=== PATIENT | female | born 1940 | race Caucasian/White ===

== ENCOUNTER → 2016-08-03 | Outpatient (CLI) | payer MEDICARE, OTHER ==
[~2016-08-03] MED LIST: ACET65TA OR; ARIC5TAB OR; ASPI81TA83 OR; BUSP10TA2 OR; CALCCHW12 OR; CIPR250T3 OR; COLA100C2 OR; DEPA250T2 OR; HCTZ PO; HYDR25TA6 OR; LAMI25TA OR; LISI10TA4 OR; MULTIVIT PO; PAXI20TA OR; PAXI40TA OR; PROZ20CA OR; SERO200T OR; TOBRADEX OU; VIT D 2000 PO; ZYPR2.5T OR; osteo-biflex; restasis OU
[2016-08-03 12:08] LABS: ALBUMIN 3.7 GM/DL (3.2-5.2); ALBUMIN/GLOBULIN RATIO 1.16 (1.00-1.93); BILIRUBIN,TOTAL 0.3 MG/DL (0.2-1.0); CALCIUM LEVEL 8.9 MG/DL (8.8-10.2); CREATININE FOR GFR 1.25 MG/DL (0.55-1.02); GLOMERULAR FILTRATION RATE 44.6 (>39); POTASSIUM SERUM 4.2 MEQ/L (3.5-5.1); TOTAL PROTEIN 6.9 GM/DL (6.4-8.2)
[2016-08-03 12:11] LABS: LITHIUM LEVEL 0.65 MEQ/L (0.60-1.20)
== END ==
LOC: M LAB 10:55
PROVIDERS: ATTEND Physician Assistant
DX: N18.3 Chronic kidney disease, stage 3 (moderate) (principal); E78.2 Mixed hyperlipidemia; E03.9 Hypothyroidism, unspecified; E55.9 Vitamin D deficiency, unspecified; Z79.899 Other long term (current) drug therapy

== ENCOUNTER → 2016-09-08 | Outpatient (CLI) | payer MEDICARE, OTHER | LOC: M LAB 13:40 | PROVIDERS: ATTEND Nurse Practitioner Psychiatric/Mental Health | DX: Z51.81 Encounter for therapeutic drug level monitoring (principal); Z79.899 Other long term (current) drug therapy ==

== ENCOUNTER → 2016-11-05 | Outpatient (CLI) | payer MEDICARE, OTHER ==
[2016-11-05 09:46] LABS: ALBUMIN 3.7 GM/DL (3.2-5.2); ALBUMIN/GLOBULIN RATIO 1.28 (1.00-1.93); BILIRUBIN,TOTAL 0.5 MG/DL (0.2-1.0); CREATININE FOR GFR 1.1 MG/DL (0.55-1.02); GLOMERULAR FILTRATION RATE 51.5 (>39); POTASSIUM SERUM 4.2 MEQ/L (3.5-5.1); TOTAL PROTEIN 6.6 GM/DL (6.4-8.2)
[2016-11-05 09:58] LABS: LITHIUM LEVEL 0.68 MEQ/L (0.60-1.20)
== END ==
LOC: M LAB 08:43
PROVIDERS: ATTEND Physician Assistant
DX: E78.2 Mixed hyperlipidemia (principal); Z79.899 Other long term (current) drug therapy; E03.9 Hypothyroidism, unspecified

== ENCOUNTER → 2017-02-23 | Outpatient (CLI) | payer MEDICARE, OTHER ==
--- NOTE | 2017-02-23 12:39 | REP ---
Thoracic spine three views: Comparison is the PA and lateral chest dated 02/03/2013. There is diffuse demineralization. There is moderate to advanced degenerative disc disease throughout the thoracic spine. This is unchanged. There is mild grade 1 anterior compression of the T7 vertebral body and the T11 vertebral body, however, this is unchanged from the prior study. There are no lytic, blastic or destructive skeletal changes. The pedicles are unremarkable. There is kyphosis, unchanged. Impression: No change from the comparison study. Chronic demineralization and multilevel degenerative disc disease and chronic grade 1 anterior compression of the T7 and T11 vertebral bodies. No lytic, blastic or destructive skeletal changes. Kyphosis, unchanged. If symptoms persist or worsen, consider MRI or radionuclide bone scan. Signed by Rj Feng MD 02/23/2017 12:30 P
== END ==
LOC: M LRY 12:00
PROVIDERS: ATTEND Physician Assistant
DX: M51.34 Other intervertebral disc degeneration, thoracic region (principal); M40.204 Unspecified kyphosis, thoracic region
CPT/HCPCS: 72072; G0463

== ENCOUNTER → 2017-06-07 | Outpatient (CLI) | payer MEDICARE, OTHER ==
[2017-06-07 10:19] LABS: ESTIMATED AVERAGE GLUCOSE 94 MG/DL (60-110); HEMOGLOBIN A1c 4.9 %
[2017-06-07 10:46] LABS: TOTAL 25(OH) VITAMIN D 32.2 NG/ML (30.0-100.0)
[2017-06-07 11:05] LABS: ALBUMIN 3.5 GM/DL (3.2-5.2); ALBUMIN/GLOBULIN RATIO 1.09 (1.00-1.93); ALKALINE PHOSPHATASE 75 U/L (45-117); ALT/SGPT 32 U/L (12-78); ANION GAP 6 MEQ/L (8-16); AST/SGOT 16 U/L (7-37); BILIRUBIN,TOTAL 0.6 MG/DL (0.2-1.0); BLOOD UREA NITROGEN 18 MG/DL (7-18); CARBON DIOXIDE LEVEL 30 MEQ/L (21-32); CHLORIDE LEVEL 109 MEQ/L (98-107); CHOLESTEROL LEVEL 187 MG/DL (<200); CHOLESTEROL RISK RATIO 2.527 (<5); CREATININE FOR GFR 1.04 MG/DL (0.55-1.02); GLUCOSE, FASTING 102 MG/DL (83-110); HDL CHOLESTEROL 74 MG/DL (>40); LDL CHOLESTEROL 92.2 MG/DL (<100); NON-HDL-C 113 MG/DL; POTASSIUM SERUM 4.4 MEQ/L (3.5-5.1); SODIUM LEVEL 145 MEQ/L (136-145); THYROID STIMULATING HORMONE 0.847 uIU/ML (0.358-3.740); TOTAL PROTEIN 6.7 GM/DL (6.4-8.2); TRIGLYCERIDES LEVEL 104 MG/DL (<150)
[2017-06-07 11:06] LABS: LITHIUM LEVEL 0.76 MEQ/L (0.60-1.20)
== END ==
LOC: M LAB 08:09
DX: N18.3 Chronic kidney disease, stage 3 (moderate) (principal); E78.2 Mixed hyperlipidemia; E55.9 Vitamin D deficiency, unspecified; E53.1 Pyridoxine deficiency; E03.9 Hypothyroidism, unspecified; Z79.899 Other long term (current) drug therapy
CPT/HCPCS: 80178

== ENCOUNTER → 2017-06-09 | Outpatient (REF) | payer MEDICARE, OTHER | LOC: M SFHCLERA 10:14 | DX: R82.90 Unspecified abnormal findings in urine (principal) | CPT/HCPCS: 87086 ==

== ENCOUNTER → 2017-07-26 | Outpatient (CLI) | payer MEDICARE, OTHER ==
[2017-07-26 10:46] LABS: LITHIUM LEVEL 0.83 MEQ/L (0.60-1.20)
== END ==
LOC: M LAB 09:48
DX: Z51.81 Encounter for therapeutic drug level monitoring (principal); Z79.899 Other long term (current) drug therapy
CPT/HCPCS: 80178

== ENCOUNTER → 2017-07-28 | Outpatient (REF) | payer MEDICARE, OTHER ==
[2017-07-28 20:42] LABS: HEMATOCRIT 39.1 % (36.0-47.0); MEAN CORPUSCULAR HEMOGLOBIN 30.5 pg (27.0-33.0); MEAN CORPUSCULAR HGB CONC 30.7 g/dl (32.0-36.5); MEAN CORPUSCULAR VOLUME 99.2 fl (80.0-96.0); PLATELET COUNT, AUTOMATED 316 10^3/uL (150-450); RED BLOOD COUNT 3.94 10^6/uL (4.00-5.40); RED CELL DISTRIBUTION WIDTH 12.6 % (11.5-14.5); WHITE BLOOD COUNT 10.4 10^3/uL (4.0-10.0)
[2017-07-28 21:06] LABS: ALBUMIN 3.9 GM/DL (3.2-5.2); ALBUMIN/GLOBULIN RATIO 1.22 (1.00-1.93); ALKALINE PHOSPHATASE 68 U/L (45-117); ALT/SGPT 32 U/L (12-78); ANION GAP 4 MEQ/L (8-16); AST/SGOT 19 U/L (7-37); BILIRUBIN,TOTAL 0.5 MG/DL (0.2-1.0); BLOOD UREA NITROGEN 16 MG/DL (7-18); CALCIUM LEVEL 9.5 MG/DL (8.8-10.2); CARBON DIOXIDE LEVEL 30 MEQ/L (21-32); CHLORIDE LEVEL 108 MEQ/L (98-107); GLUCOSE, FASTING 82 MG/DL (70-100); SODIUM LEVEL 142 MEQ/L (136-145); THYROID STIMULATING HORMONE 0.722 uIU/ML (0.358-3.740); TOTAL PROTEIN 7.1 GM/DL (6.4-8.2)
[2017-07-28 21:16] LABS: POTASSIUM SERUM 5.2 MEQ/L (3.5-5.1)
== END ==
LOC: M SFHCLERA 17:59
DX: R26.9 Unspecified abnormalities of gait and mobility (principal); H57.02 Anisocoria; R25.1 Tremor, unspecified; G25.9 Extrapyramidal and movement disorder, unspecified
CPT/HCPCS: 84443

== ENCOUNTER → 2017-08-06 | Outpatient (CLI) | payer MEDICARE, OTHER | LOC: M WUC 12:06 | DX: S20.211A Contusion of right front wall of thorax, initial encounter (principal); M19.011 Primary osteoarthritis, right shoulder; M25.511 Pain in right shoulder; Y92.89 Other specified places as the place of occurrence of the external cause; Y93.89 Activity, other specified; Y99.8 Other external cause status; X58.XXXA Exposure to other specified factors, initial encounter | CPT/HCPCS: 71101 ==

== ENCOUNTER 2017-09-14 10:18 | Outpatient (RCR) | payer MEDICARE, OTHER | END 2017-09-20 | LOC: M PT 10:18 | DX: Z51.89 Encounter for other specified aftercare (principal); M40.00 Postural kyphosis, site unspecified; M54.2 Cervicalgia | CPT/HCPCS: 97162 ==

== ENCOUNTER 2017-09-22 15:05 | Outpatient (RCR) | payer MEDICARE, OTHER | END 2017-10-21 | LOC: M PT 15:05 | DX: Z51.89 Encounter for other specified aftercare (principal); M40.00 Postural kyphosis, site unspecified; M54.2 Cervicalgia | CPT/HCPCS: 97110 ==

== ENCOUNTER → 2017-09-28 | Outpatient (CLI) | payer MEDICARE, OTHER | LOC: M WHC 09:48 | DX: Z01.419 Encounter for gynecological examination (general) (routine) without abnormal findings (principal); R92.2 Inconclusive mammogram (principal); R92.0 Mammographic microcalcification found on diagnostic imaging of breast; M85.80 Other specified disorders of bone density and structure, unspecified site; Z78.0 Asymptomatic menopausal state; Z98.82 Breast implant status; Z12.12 Encounter for screening for malignant neoplasm of rectum | CPT/HCPCS: 77067 ==

== ENCOUNTER → 2017-10-12 | Outpatient (CLI) | payer MEDICARE, OTHER | LOC: M RAD 11:14 | DX: R92.8 Other abnormal and inconclusive findings on diagnostic imaging of breast (principal) | CPT/HCPCS: 77065 ==

== ENCOUNTER 2017-10-28 14:57 | Outpatient (RCR) | payer MEDICARE, OTHER | END 2017-11-20 | LOC: M PT 14:57 | DX: Z51.89 Encounter for other specified aftercare (principal); R26.9 Unspecified abnormalities of gait and mobility | CPT/HCPCS: 97110 ==

== ENCOUNTER 2017-11-23 14:59 | Outpatient (RCR) | payer MEDICARE, OTHER | END 2017-12-21 | LOC: M PT 14:59 | DX: Z51.89 Encounter for other specified aftercare (principal); R26.9 Unspecified abnormalities of gait and mobility | CPT/HCPCS: 97110 ==

== ENCOUNTER → 2017-12-16 | Outpatient (CLI) | payer MEDICARE, OTHER ==
[2017-12-16 10:17] LABS: HEMATOCRIT 37.7 % (36.0-47.0); HEMOGLOBIN 11.8 g/dl (12.0-15.5); MEAN CORPUSCULAR HEMOGLOBIN 30.8 pg (27.0-33.0); MEAN CORPUSCULAR HGB CONC 31.3 g/dl (32.0-36.5); MEAN CORPUSCULAR VOLUME 98.4 fl (80.0-96.0); PLATELET COUNT, AUTOMATED 363 10^3/uL (150-450); RED BLOOD COUNT 3.83 10^6/uL (4.00-5.40); RED CELL DISTRIBUTION WIDTH 12.7 % (11.5-14.5); WHITE BLOOD COUNT 9.3 10^3/uL (4.0-10.0)
[2017-12-16 10:50] LABS: ALBUMIN 3.3 GM/DL (3.2-5.2); ALBUMIN/GLOBULIN RATIO 0.94 (1.00-1.93); ALKALINE PHOSPHATASE 80 U/L (45-117); ALT/SGPT 26 U/L (12-78); ANION GAP 3 MEQ/L (8-16); AST/SGOT 13 U/L (7-37); BILIRUBIN,TOTAL 0.3 MG/DL (0.2-1.0); BLOOD UREA NITROGEN 13 MG/DL (7-18); CALCIUM LEVEL 9.3 MG/DL (8.8-10.2); CARBON DIOXIDE LEVEL 32 MEQ/L (21-32); CHLORIDE LEVEL 109 MEQ/L (98-107); CHOLESTEROL LEVEL 186 MG/DL (<200); CHOLESTEROL RISK RATIO 3.152 (<5); CREATININE FOR GFR 1.22 MG/DL (0.55-1.30); GLOMERULAR FILTRATION RATE 45.6 (>39); GLUCOSE, FASTING 103 MG/DL (70-100); HDL CHOLESTEROL 59 MG/DL (>40); LDL CHOLESTEROL 98.4 MG/DL (<100); NON-HDL-C 127 MG/DL; POTASSIUM SERUM 4.5 MEQ/L (3.5-5.1); SODIUM LEVEL 144 MEQ/L (136-145); THYROID STIMULATING HORMONE 0.578 uIU/ML (0.358-3.740); TOTAL PROTEIN 6.8 GM/DL (6.4-8.2); TRIGLYCERIDES LEVEL 143 MG/DL (<150)
[2017-12-16 11:29] LABS: TOTAL 25(OH) VITAMIN D 26.6 NG/ML (30.0-100.0); VITAMIN B12 LEVEL 694 PG/ML (247-911)
== END ==
LOC: M LAB 09:31
DX: E78.2 Mixed hyperlipidemia (principal); I10 Essential (primary) hypertension; E55.9 Vitamin D deficiency, unspecified; E53.8 Deficiency of other specified B group vitamins; E03.9 Hypothyroidism, unspecified
CPT/HCPCS: 84443

== ENCOUNTER 2018-01-12 16:08 | Outpatient (RCR) | payer MEDICARE, OTHER | END 2018-01-21 | LOC: M PT 16:08 | DX: Z51.89 Encounter for other specified aftercare (principal); R26.9 Unspecified abnormalities of gait and mobility | CPT/HCPCS: 97110 ==

== ENCOUNTER → 2018-01-13 | Outpatient (REF) | payer MEDICARE, OTHER ==
[2018-01-13 12:29] LABS: RETIC HEMOGLOBIN EQUIVALENT 36.3 pg (24-36); RETICULOCYTE # 61.1 10^9/L (17-77); RETICULOCYTE % 1.6 % (0.5-1.5)
[2018-01-13 13:07] LABS: FERRITIN 112 NG/ML (8-252); IRON (FE) 57 UG/DL (50-170); PERCENT SATURATION 15.4 % (13.2-45.0); TOTAL IRON BINDING CAPACITY 370 UG/DL (250-450)
[2018-01-13 13:13] LABS: LITHIUM LEVEL 0.72 MEQ/L (0.60-1.20)
[2018-01-17 08:06] LABS: LAMOTRIGINE (LAMICTAL) 4.2 ug/mL (2.0-20.0)
== END ==
LOC: M SFHCPLAZ 09:34
DX: D64.9 Anemia, unspecified (principal); F31.70 Bipolar disorder, currently in remission, most recent episode unspecified
CPT/HCPCS: 83550

== ENCOUNTER 2018-01-26 09:42 | Outpatient (RCR) | payer MEDICARE, OTHER | END 2018-02-20 | LOC: M PT 09:42 | DX: Z51.89 Encounter for other specified aftercare (principal); R26.9 Unspecified abnormalities of gait and mobility | CPT/HCPCS: 97110 ==

== ENCOUNTER 2018-02-21 11:47 | Outpatient (RCR) | payer MEDICARE, OTHER | END 2018-03-23 | LOC: M PT 02-23 09:46 | DX: R26.9 Unspecified abnormalities of gait and mobility (principal) | CPT/HCPCS: 97110 ==

== ENCOUNTER → 2018-03-10 | Outpatient (CLI) | payer MEDICARE, OTHER ==
[2018-03-10 14:15] LABS: BASO # 0.1 10^3/uL (0.0-0.2); BASO % 0.9 % (0.0-1.0); EOS # 0.3 10^3/uL (0.0-0.50); EOS % 2.8 % (0.0-3.0); HEMATOCRIT 39.2 % (36.0-47.0); HEMOGLOBIN 12.2 g/dl (12.0-15.5); IMMATURE GRANULOCYTE % 0.2 % (0-3.0); LYMPH # 3.2 10^3/uL (1.5-4.5); LYMPH % 32.2 % (24.0-44.0); MEAN CORPUSCULAR HEMOGLOBIN 31.4 pg (27.0-33.0); MEAN CORPUSCULAR HGB CONC 31.1 g/dl (32.0-36.5); MEAN CORPUSCULAR VOLUME 100.8 fl (80.0-96.0); MONO # 0.9 10^3/uL (0.0-0.8); MONO % 8.9 % (0.0-5.0); NEUTROPHILS # 5.4 10^3/uL (1.8-7.7); PLATELET COUNT, AUTOMATED 354 10^3/uL (150-450); RED BLOOD COUNT 3.89 10^6/uL (4.00-5.40); RED CELL DISTRIBUTION WIDTH 13.2 % (11.5-14.5); WHITE BLOOD COUNT 9.9 10^3/uL (4.0-10.0)
[2018-03-10 14:34] LABS: ESTIMATED AVERAGE GLUCOSE 103 MG/DL (60-110); HEMOGLOBIN A1c 5.2 %
[2018-03-10 15:06] LABS: FREE T4 0.91 NG/DL (0.76-1.46); LITHIUM LEVEL 0.36 MEQ/L (0.60-1.20); TOTAL 25(OH) VITAMIN D 66.4 NG/ML (30.0-100.0)
[2018-03-10 15:06] LABS: URIC ACID 3.8 MG/DL (2.6-6.0)
== END ==
LOC: M LAB 13:12
DX: D64.9 Anemia, unspecified (principal); Z79.899 Other long term (current) drug therapy
CPT/HCPCS: 80178

== ENCOUNTER → 2018-03-10 | Outpatient (REF) | payer MEDICARE, OTHER | LOC: M SFHCPLAZ 10:19 | DX: D64.9 Anemia, unspecified (principal); E03.9 Hypothyroidism, unspecified; Z13.1 Encounter for screening for diabetes mellitus; N18.3 Chronic kidney disease, stage 3 (moderate); E55.9 Vitamin D deficiency, unspecified ==

== ENCOUNTER 2018-03-15 16:10 | Emergency (ER) | payer MEDICARE, OTHER | END 2018-03-15 20:36 | disposition short-term general hospital (02) | LOC: M ED 16:10 | DX: S00.83XA Contusion of other part of head, initial encounter (principal); S50.311A Abrasion of right elbow, initial encounter; W01.10XA Fall on same level from slipping, tripping and stumbling with subsequent striking against unspecified object, initial encounter; Y92.512 Supermarket, store or market as the place of occurrence of the external cause; E03.9 Hypothyroidism, unspecified; F31.9 Bipolar disorder, unspecified; F90.9 Attention-deficit hyperactivity disorder, unspecified type; Z88.2 Allergy status to sulfonamides; Z79.82 Long term (current) use of aspirin; Z79.899 Other long term (current) drug therapy | CPT/HCPCS: 70450 ==

== ENCOUNTER → 2018-03-31 | Outpatient (CLI) | payer MEDICARE, OTHER | LOC: M RAD 09:48 | DX: R55 Syncope and collapse (principal); I65.23 Occlusion and stenosis of bilateral carotid arteries | CPT/HCPCS: 93880 ==

== ENCOUNTER → 2018-04-01 | Outpatient (CLI) | payer MEDICARE, OTHER | LOC: M RAD 15:16 | DX: R14.0 Abdominal distension (gaseous) (principal) | CPT/HCPCS: 74018 ==

== ENCOUNTER 2018-04-06 14:33 | Outpatient (RCR) | payer MEDICARE, OTHER | END 2018-04-22 | LOC: M PT 14:33 | DX: R26.9 Unspecified abnormalities of gait and mobility (principal) | CPT/HCPCS: 97110 ==

== ENCOUNTER → 2018-04-19 | Outpatient (CLI) | payer MEDICARE, OTHER | LOC: M RAD 12:36 | DX: R14.0 Abdominal distension (gaseous) (principal); Z85.3 Personal history of malignant neoplasm of breast; Z90.710 Acquired absence of both cervix and uterus | CPT/HCPCS: 76856 ==

== ENCOUNTER → 2018-04-22 | Outpatient (CLI) | payer MEDICARE, OTHER ==
[2018-04-22 11:36] LABS: CHOLESTEROL LEVEL 186 MG/DL (<200); CHOLESTEROL RISK RATIO 3.049 (<5); HDL CHOLESTEROL 61 MG/DL (>40); LDL CHOLESTEROL 96 MG/DL (<100); NON-HDL-C 125 MG/DL; TRIGLYCERIDES LEVEL 147 MG/DL (<150)
== END ==
LOC: M LAB 10:42
DX: I65.23 Occlusion and stenosis of bilateral carotid arteries (principal)
CPT/HCPCS: 80061

== ENCOUNTER → 2018-05-10 | Outpatient (CLI) | payer MEDICARE, OTHER ==
[~2018-05-10] MED LIST changes: +ADDE20CA3 PO; +AMLO5TAB6; +AMPH20CA PO; +ASPI1TAB PO; +FISH120016 PO; +LAMO100T PO; +LATU40TA PO; +LEVO50TA5 PO; +LITH300C PO; +LOSA25TA14 PO; +LUTE40CA2 PO; +MAGN500T2 PO; +NAPR-50 PO; +REST0.05; +TORS10TA3 PO; +VIIB40TA PO; +VITA100066 PO
[2018-05-10 09:13] LABS: ALBUMIN 3.5 GM/DL (3.2-5.2); CALCIUM LEVEL 9.1 MG/DL (8.8-10.2); CREATININE FOR GFR 1.34 MG/DL (0.55-1.30); FREE THYROXINE INDEX 2.6 % (1.3-4.8); GLOMERULAR FILTRATION RATE 40.9 (>39); LITHIUM LEVEL 0.65 MEQ/L (0.60-1.20); PHOSPHORUS LEVEL 3.6 MG/DL (2.5-4.9); THYROID STIMULATING HORMONE 1.05 uIU/ML (0.358-3.740); THYROXINE (T4) 8.2 UG/DL (4.5-12.0)
== END ==
LOC: M LAB 08:05
PROVIDERS: ATTEND Family Medicine
DX: Z51.81 Encounter for therapeutic drug level monitoring (principal); Z79.899 Other long term (current) drug therapy

== ENCOUNTER 2018-05-11 10:37 | Outpatient (RCR) | payer MEDICARE, OTHER ==
[~2018-05-11 10:37] MED LIST changes: +AMLO5TAB4; -AMLO5TAB6; -LOSA25TA14 PO; +LOSA25TA33 PO; -NAPR-50 PO
[2018-05-20] MEDS ORDERED: NAPR-49 PO (16:10)
== END 2018-05-23 ==
LOC: M PT 10:37
PROVIDERS: ATTEND Family Medicine
DX: R26.9 Unspecified abnormalities of gait and mobility (principal)
CPT/HCPCS: 97110; 97140; G8978; G8979

== ENCOUNTER 2018-05-20 13:15 | Emergency (ER) | payer MEDICARE, OTHER ==
[~2018-05-20] VITALS: Ht 154.9 cm; Wt 80.5 kg
[2018-05-20 13:15] VITALS: BP 165/74
[~2018-05-20 13:15] MED LIST changes: -AMLO5TAB4; +AMLO5TAB6; +LOSA25TA14 PO; -LOSA25TA33 PO
--- NOTE | 2018-05-20 13:59 | REP ---
Clinical: Pain and swelling. Technique: AP, lateral, bilateral oblique and sunrise views of the right knee. Findings: Generalized age-related degenerative changes are noted. No overt osteoarthritic changes identified. No effusion. No fracture dislocation. Impression: Mild age-related changes. Electronically Signed by Han Rodriguez MD 05/20/2018 01:51 P
[2018-05-20] MEDS ORDERED: NAPR-50 PO (16:10)
== END 2018-05-20 16:18 | disposition home or self-care (01) ==
LOC: M ED 13:15
DX: M17.11 Unilateral primary osteoarthritis, right knee (principal); I25.10 Atherosclerotic heart disease of native coronary artery without angina pectoris; E07.9 Disorder of thyroid, unspecified; Z79.899 Other long term (current) drug therapy; Z79.82 Long term (current) use of aspirin; Z88.2 Allergy status to sulfonamides

== ENCOUNTER 2018-07-20 08:26 | Outpatient (RCR) | payer MEDICARE, OTHER ==
[~2018-07-20 08:26] MED LIST changes: +NAPR-50 PO
== END 2018-07-21 ==
LOC: M PT 08:26
PROVIDERS: ATTEND Physician Assistant
DX: R26.89 Other abnormalities of gait and mobility (principal)

== ENCOUNTER 2018-07-27 09:13 | Outpatient (RCR) | payer MEDICARE, OTHER | END 2018-08-21 | LOC: M PT 09:13 | PROVIDERS: ATTEND Physician Assistant | DX: R26.89 Other abnormalities of gait and mobility (principal) ==

== ENCOUNTER → 2018-08-18 | Outpatient (CLI) | payer MEDICARE, OTHER ==
[2018-08-18 08:41] LABS: BASO # 0.1 10^3/uL (0.0-0.2); BASO % 0.9 % (0.0-1.0); EOS # 0.5 10^3/uL (0.0-0.50); EOS % 5.4 % (0.0-3.0); HEMATOCRIT 37.1 % (36.0-47.0); HEMOGLOBIN 11.6 g/dl (12.0-15.5); LYMPH # 2.9 10^3/uL (1.5-4.5); LYMPH % 33.7 % (24.0-44.0); MEAN CORPUSCULAR HEMOGLOBIN 31.1 pg (27.0-33.0); MEAN CORPUSCULAR HGB CONC 31.3 g/dl (32.0-36.5); MEAN CORPUSCULAR VOLUME 99.5 fl (80.0-96.0); MONO # 0.8 10^3/uL (0.0-0.8); MONO % 9.1 % (0.0-5.0); NEUTROPHILS # 4.4 10^3/uL (1.8-7.7); NEUTROPHILS % 50.6 % (36.0-66.0); PLATELET COUNT, AUTOMATED 345 10^3/uL (150-450); RED BLOOD COUNT 3.73 10^6/uL (4.00-5.40); WHITE BLOOD COUNT 8.7 10^3/uL (4.0-10.0)
[2018-08-18 09:30] LABS: ALBUMIN 3.4 GM/DL (3.2-5.2); BILIRUBIN,TOTAL 0.2 MG/DL (0.2-1.0); CALCIUM LEVEL 9.1 MG/DL (8.8-10.2); CHOLESTEROL RISK RATIO 3.444 (<5); CREATININE FOR GFR 1.08 MG/DL (0.55-1.30); FREE T4 0.81 NG/DL (0.76-1.46); GLOMERULAR FILTRATION RATE 52.5 (>39); HEMOGLOBIN A1c 5.2 %; POTASSIUM SERUM 3.9 MEQ/L (3.5-5.1); THYROID STIMULATING HORMONE 0.874 uIU/ML (0.358-3.740); TOTAL PROTEIN 6.5 GM/DL (6.4-8.2)
== END ==
LOC: M LAB 07:38
PROVIDERS: ATTEND Physician Assistant
DX: Z13.1 Encounter for screening for diabetes mellitus (principal); I10 Essential (primary) hypertension; E03.9 Hypothyroidism, unspecified; Z79.82 Long term (current) use of aspirin

== ENCOUNTER → 2018-09-20 | Outpatient (RCR) | payer MEDICARE, OTHER ==
[~2018-09-20] MED LIST changes: -AMLO5TAB6; +AMLO5TAB6 PO; -ASPI1TAB PO; +ASPI81TA26 PO; -NAPR-50 PO; +NAPR-837 PO; +OSTETAB2 PO; -REST0.05; +REST0.05 OU
== END ==
LOC: M PT 08-23 13:32
PROVIDERS: ATTEND Physician Assistant
DX: R26.89 Other abnormalities of gait and mobility (principal)

== ENCOUNTER → 2018-10-11 | Outpatient (CLI) | payer MEDICARE, OTHER | LOC: M LAB 09:29 | PROVIDERS: ATTEND Nurse Practitioner Psychiatric/Mental Health | DX: Z51.81 Encounter for therapeutic drug level monitoring (principal); Z79.899 Other long term (current) drug therapy ==

== ENCOUNTER 2018-10-12 08:48 | Outpatient (RCR) | payer MEDICARE, OTHER | END 2018-10-21 | LOC: M PT 08:48 | PROVIDERS: ATTEND Physician Assistant | DX: R26.89 Other abnormalities of gait and mobility (principal) ==

== ENCOUNTER 2018-10-27 00:41 | Emergency (ER) | payer MEDICARE, OTHER ==
[~2018-10-27] VITALS: Ht 154.9 cm; Wt 67.9 kg
[2018-10-27 03:13] VITALS: BP 151/71
== END 2018-10-27 03:15 | disposition home or self-care (01) ==
LOC: M ED 00:41
DX: R04.0 Epistaxis (principal); I10 Essential (primary) hypertension; E78.5 Hyperlipidemia, unspecified; I73.00 Raynaud's syndrome without gangrene; F31.9 Bipolar disorder, unspecified; Z85.3 Personal history of malignant neoplasm of breast; Z79.82 Long term (current) use of aspirin; Z79.899 Other long term (current) drug therapy; Z88.2 Allergy status to sulfonamides

== ENCOUNTER → 2018-11-23 | Outpatient (CLI) | payer MEDICARE, OTHER ==
[2018-11-23 09:58] LABS: BASO # 0.1 10^3/uL (0.0-0.2); BASO % 0.9 % (0.0-1.0); EOS # 0.5 10^3/uL (0.0-0.50); EOS % 6.4 % (0.0-3.0); HEMOGLOBIN 10.9 g/dl (12.0-15.5); LYMPH # 2.8 10^3/uL (1.5-4.5); LYMPH % 34.6 % (24.0-44.0); MEAN CORPUSCULAR HEMOGLOBIN 30.5 pg (27.0-33.0); MEAN CORPUSCULAR HGB CONC 30.3 g/dl (32.0-36.5); MEAN CORPUSCULAR VOLUME 100.8 fl (80.0-96.0); MONO # 0.8 10^3/uL (0.0-0.8); MONO % 9.5 % (0.0-5.0); NEUTROPHILS # 3.9 10^3/uL (1.8-7.7); NEUTROPHILS % 48.3 % (36.0-66.0); PLATELET COUNT, AUTOMATED 329 10^3/uL (150-450); RED BLOOD COUNT 3.57 10^6/uL (4.00-5.40)
[2018-11-23 10:22] LABS: ALBUMIN 3.2 GM/DL (3.2-5.2); BILIRUBIN,TOTAL 0.3 MG/DL (0.2-1.0); CREATININE FOR GFR 1.15 MG/DL (0.55-1.30); FREE T4 0.75 NG/DL (0.76-1.46); GLOMERULAR FILTRATION RATE 48.7 (>39); POTASSIUM SERUM 4.3 MEQ/L (3.5-5.1); THYROID STIMULATING HORMONE 1.07 uIU/ML (0.358-3.740); TOTAL 25(OH) VITAMIN D 45.2 NG/ML (30.0-100.0); TOTAL PROTEIN 6.4 GM/DL (6.4-8.2)
== END ==
LOC: M LAB 08:44
PROVIDERS: ATTEND Family Medicine
DX: E03.9 Hypothyroidism, unspecified (principal); I10 Essential (primary) hypertension; E55.9 Vitamin D deficiency, unspecified

== ENCOUNTER 2018-12-19 16:21 | Emergency (ER) | payer MEDICARE, OTHER ==
[~2018-12-19] VITALS: Ht 157.5 cm; Wt 68.7 kg
--- NOTE | 2018-12-19 17:13 | REP ---
Clinical: Trauma. Technique: AP, lateral, bilateral oblique views of the right fifth digit. Findings: No acute fracture or dislocation. Skeletal structures, joint spaces, and surrounding soft tissues appear relatively normal for age. Impression: No acute fracture or dislocation. Electronically Signed by Han Rodriguez MD 12/19/2018 05:04 P
[2018-12-19] MEDS ORDERED: ACETAMINOPHEN 325 MG TAB As Ordered ONE (20:58)
[2018-12-19] MEDS ORDERED: ACETAMINOPHEN TAB 650MG DOSE (2X325MG) PO ONE (21:00)
[2018-12-19] MEDS ORDERED: IBUPROFEN 400 MG TAB PO ONE (21:00)
[2018-12-19 21:09] VITALS: BP 150/67
== END 2018-12-19 21:30 | disposition home or self-care (01) ==
LOC: M ED 16:21
DX: S63.696A Other sprain of right little finger, initial encounter (principal); S60.051A Contusion of right little finger without damage to nail, initial encounter; W01.0XXA Fall on same level from slipping, tripping and stumbling without subsequent striking against object, initial encounter; Y92.018 Other place in single-family (private) house as the place of occurrence of the external cause; I10 Essential (primary) hypertension; Z79.899 Other long term (current) drug therapy; Z79.890 Hormone replacement therapy; Z79.82 Long term (current) use of aspirin

== ENCOUNTER → 2019-01-04 | Outpatient (CLI) | payer MEDICARE, OTHER ==
[2019-01-04 08:41] LABS: BASO # 0.1 10^3/uL (0.0-0.2); BASO % 0.8 % (0.0-1.0); EOS # 0.4 10^3/uL (0.0-0.50); EOS % 4.5 % (0.0-3.0); HEMATOCRIT 39.2 % (36.0-47.0); HEMOGLOBIN 12.3 g/dl (12.0-15.5); LYMPH # 2.8 10^3/uL (1.5-4.5); MEAN CORPUSCULAR HEMOGLOBIN 30.7 pg (27.0-33.0); MEAN CORPUSCULAR HGB CONC 31.4 g/dl (32.0-36.5); MEAN CORPUSCULAR VOLUME 97.8 fl (80.0-96.0); MONO % 10.7 % (0.0-5.0); NEUTROPHILS # 4.9 10^3/uL (1.8-7.7); NEUTROPHILS % 53.8 % (36.0-66.0); PLATELET COUNT, AUTOMATED 334 10^3/uL (150-450); RED BLOOD COUNT 4.01 10^6/uL (4.00-5.40); WHITE BLOOD COUNT 9.2 10^3/uL (4.0-10.0)
[2019-01-04 09:12] LABS: ALBUMIN 3.6 GM/DL (3.2-5.2); BILIRUBIN,TOTAL 0.2 MG/DL (0.2-1.0); CALCIUM LEVEL 8.9 MG/DL (8.8-10.2); CREATININE FOR GFR 1.45 MG/DL (0.55-1.30); FREE T4 0.87 NG/DL (0.76-1.46); GLOMERULAR FILTRATION RATE 37.3 (>39); POTASSIUM SERUM 3.5 MEQ/L (3.5-5.1); THYROID STIMULATING HORMONE 1.08 uIU/ML (0.358-3.740)
== END ==
LOC: M LAB 08:17
PROVIDERS: ATTEND Physician Assistant
DX: R60.9 Edema, unspecified (principal)

== ENCOUNTER → 2019-01-04 | Outpatient (REF) | LOC: M LAB 08:49 | PROVIDERS: ATTEND Nurse Practitioner Adult Health | DX: Z00.00 Encounter for general adult medical examination without abnormal findings (principal) ==

== ENCOUNTER → 2019-01-10 | Outpatient (CLI) | payer MEDICARE, OTHER ==
[2019-01-10 11:12] LABS: CALCIUM LEVEL 9.4 MG/DL (8.8-10.2); CREATININE FOR GFR 1.13 MG/DL (0.55-1.30); GLOMERULAR FILTRATION RATE 49.7 (>39); LITHIUM LEVEL 0.72 MEQ/L (0.60-1.20); MAGNESIUM LEVEL 3.1 MG/DL (1.8-2.4); POTASSIUM SERUM 3.7 MEQ/L (3.5-5.1)
== END ==
LOC: M LAB 10:02
PROVIDERS: ATTEND Physician Assistant
DX: F31.9 Bipolar disorder, unspecified (principal); R60.9 Edema, unspecified

== ENCOUNTER → 2019-01-25 | Outpatient (CLI) | payer MEDICARE, OTHER ==
[~2019-01-25] MED LIST changes: +ADDE30CA3 PO; +AMLO10TA PO; +AMPH1CAP16 PO; -AMPH20CA PO; +FURO40TA2 PO; -LAMO100T PO; +LAMO100T3 PO; +LITH45TASA PO
[2019-01-25 18:10] LABS: CALCIUM LEVEL 9.6 MG/DL (8.8-10.2); CREATININE FOR GFR 1.28 MG/DL (0.55-1.30); POTASSIUM SERUM 4.5 MEQ/L (3.5-5.1)
== END ==
LOC: M LAB 16:29
PROVIDERS: ATTEND Internal Medicine Nephrology
DX: N18.3 Chronic kidney disease, stage 3 (moderate) (principal)

== ENCOUNTER → 2019-02-25 | Outpatient (CLI) | payer MEDICARE, OTHER ==
[~2019-02-25] MED LIST changes: -ADDE30CA3 PO; -AMLO10TA PO; -AMPH1CAP16 PO; +AMPH20CA PO; -FURO40TA2 PO; +LAMO100T PO; -LAMO100T3 PO; -LITH45TASA PO
[2019-02-25 09:06] LABS: BASO % 0.4 % (0.0-1.0); EOS # 0.7 10^3/uL (0.0-0.5); EOS % 6.9 % (0.0-3.0); HEMATOCRIT 38.5 % (36.0-47.0); HEMOGLOBIN 11.9 g/dl (12.0-15.5); LYMPH # 3.1 10^3/uL (1.5-5.0); MEAN CORPUSCULAR HEMOGLOBIN 30.7 pg (27.0-33.0); MEAN CORPUSCULAR HGB CONC 30.9 g/dl (32.0-36.5); MEAN CORPUSCULAR VOLUME 99.5 fl (80.0-96.0); MONO # 0.9 10^3/uL (0.0-0.8); MONO % 8.6 % (0.0-5.0); NEUTROPHILS # 5.4 10^3/uL (1.5-8.5); NEUTROPHILS % 52.9 % (36.0-66.0); PLATELET COUNT, AUTOMATED 369 10^3/uL (150-450); RED BLOOD COUNT 3.87 10^6/uL (4.00-5.40); WHITE BLOOD COUNT 10.1 10^3/uL (4.0-10.0)
[2019-02-25 09:34] LABS: ALBUMIN 3.3 GM/DL (3.2-5.2); BILIRUBIN,TOTAL 0.3 MG/DL (0.2-1.0); CALCIUM LEVEL 9.1 MG/DL (8.8-10.2); CHOLESTEROL RISK RATIO 2.83 (<5); CREATININE FOR GFR 1.08 MG/DL (0.55-1.30); FREE T4 0.88 NG/DL (0.76-1.46); GLOMERULAR FILTRATION RATE 52.4 (>39); LITHIUM LEVEL 0.54 MEQ/L (0.60-1.20); POTASSIUM SERUM 3.8 MEQ/L (3.5-5.1); THYROID STIMULATING HORMONE 1.57 uIU/ML (0.358-3.740); TOTAL PROTEIN 6.9 GM/DL (6.4-8.2)
== END ==
LOC: M LAB 08:07
PROVIDERS: ATTEND Physician Assistant
DX: I10 Essential (primary) hypertension (principal)

== ENCOUNTER → 2019-03-27 | Outpatient (REF) | payer MEDICARE, OTHER ==
[~2019-03-27] MED LIST changes: +AMPH1CAP16 PO; -AMPH20CA PO
== END ==
LOC: M SFHCPLAZ 14:25
PROVIDERS: ATTEND Dermatology
DX: L85.8 Other specified epidermal thickening (principal)

== ENCOUNTER → 2019-06-08 | Outpatient (REF) | payer MEDICARE, OTHER ==
[~2019-06-08] MED LIST changes: +ADDE30CA3 PO; +AMLO10TA PO; +FURO40TA2 PO; -LAMO100T PO; +LAMO100T3 PO; +LITH45TASA PO
== END ==
LOC: M LAB REF 09:08
PROVIDERS: ATTEND Dermatology
DX: L90.5 Scar conditions and fibrosis of skin (principal)

== ENCOUNTER → 2019-06-15 | Outpatient (REF) | payer MEDICARE, OTHER | LOC: M LAB REF 09:39 | PROVIDERS: ATTEND Dermatology | DX: D48.9 Neoplasm of uncertain behavior, unspecified (principal) | CPT/HCPCS: 11102; 11103; 88305; G0463 ==

== ENCOUNTER → 2019-06-20 | Outpatient (CLI) | payer MEDICARE, OTHER ==
[2019-06-20 08:56] LABS: BASO # 0.1 10^3/uL (0.0-0.2); BASO % 1.2 % (0.0-1.0); EOS # 0.5 10^3/uL (0.0-0.5); EOS % 5.4 % (0.0-3.0); HEMOGLOBIN 11.7 g/dl (12.0-15.5); LYMPH % 31.4 % (24.0-44.0); MEAN CORPUSCULAR HEMOGLOBIN 30.5 pg (27.0-33.0); MEAN CORPUSCULAR VOLUME 101.6 fl (80.0-96.0); MONO % 9.9 % (0.0-5.0); NEUTROPHILS % 51.9 % (36.0-66.0); PLATELET COUNT, AUTOMATED 403 10^3/uL (150-450); RED BLOOD COUNT 3.84 10^6/uL (4.00-5.40); WHITE BLOOD COUNT 9.6 10^3/uL (4.0-10.0)
[2019-06-20 09:30] LABS: ALBUMIN 3.6 GM/DL (3.2-5.2); BILIRUBIN,TOTAL 0.4 MG/DL (0.2-1.0); CALCIUM LEVEL 9.1 MG/DL (8.8-10.2); CREATININE FOR GFR 1.31 MG/DL (0.55-1.30); FREE T4 0.89 NG/DL (0.76-1.46); GLOMERULAR FILTRATION RATE 41.9 (>39); POTASSIUM SERUM 3.9 MEQ/L (3.5-5.1); THYROID STIMULATING HORMONE 1.45 uIU/ML (0.358-3.740); TOTAL PROTEIN 7.1 GM/DL (6.4-8.2)
[2019-06-20 09:43] LABS: TOTAL 25(OH) VITAMIN D 74.1 NG/ML (30.0-100.0)
== END ==
LOC: M LAB 08:00
PROVIDERS: ATTEND Family Medicine
DX: E03.9 Hypothyroidism, unspecified (principal)

== ENCOUNTER → 2019-08-01 | Outpatient (CLI) | payer MEDICARE, OTHER ==
[2019-08-01 09:04] LABS: BASO # 0.1 10^3/uL (0.0-0.2); EOS # 0.3 10^3/uL (0.0-0.5); EOS % 2.8 % (0.0-3.0); HEMATOCRIT 37.5 % (36.0-47.0); HEMOGLOBIN 12.1 g/dl (12.0-15.5); LYMPH # 3.2 10^3/uL (1.5-5.0); LYMPH % 34.7 % (24.0-44.0); MEAN CORPUSCULAR HEMOGLOBIN 31.5 pg (27.0-33.0); MEAN CORPUSCULAR HGB CONC 32.3 g/dl (32.0-36.5); MEAN CORPUSCULAR VOLUME 97.7 fl (80.0-96.0); MONO # 0.9 10^3/uL (0.0-0.8); MONO % 9.6 % (0.0-5.0); NEUTROPHILS # 4.8 10^3/uL (1.5-8.5); NEUTROPHILS % 51.8 % (36.0-66.0); PLATELET COUNT, AUTOMATED 345 10^3/uL (150-450); RED BLOOD COUNT 3.84 10^6/uL (4.00-5.40); WHITE BLOOD COUNT 9.3 10^3/uL (4.0-10.0)
[2019-08-01 09:42] LABS: ALBUMIN 3.8 GM/DL (3.2-5.2); BILIRUBIN,TOTAL 0.5 MG/DL (0.2-1.0); CALCIUM LEVEL 9.3 MG/DL (8.8-10.2); CREATININE FOR GFR 1.21 MG/DL (0.55-1.30); FREE T4 0.92 NG/DL (0.76-1.46); GLOMERULAR FILTRATION RATE 45.9 (>39); POTASSIUM SERUM 3.5 MEQ/L (3.5-5.1); THYROID STIMULATING HORMONE 1.04 uIU/ML (0.358-3.740); TOTAL PROTEIN 6.9 GM/DL (6.4-8.2)
== END ==
LOC: M LAB 08:26
PROVIDERS: ATTEND Family Medicine
DX: E03.9 Hypothyroidism, unspecified (principal); I10 Essential (primary) hypertension

== ENCOUNTER → 2019-08-14 | Outpatient (REF) | payer MEDICARE, OTHER | LOC: M LAB REF 16:09 | PROVIDERS: ATTEND Dermatology | DX: L08.9 Local infection of the skin and subcutaneous tissue, unspecified (principal) | CPT/HCPCS: 87070; 87077; 87186; G0463 ==

== ENCOUNTER → 2019-09-13 | Outpatient (CLI) | payer MEDICARE, OTHER ==
[2019-09-13 09:37] LABS: CALCIUM LEVEL 8.9 MG/DL (8.8-10.2); CREATININE FOR GFR 1.23 MG/DL (0.55-1.30); GLOMERULAR FILTRATION RATE 45.1 (>39)
[2019-09-13 10:07] LABS: APPEARANCE, URINE HAZY (CLEAR); BACTERIA, URINE AUTO NEGATIVE (NEGATIVE); BILIRUBIN, URINE AUTO NEGATIVE (NEGATIVE); BLOOD, URINE BLOOD NEGATIVE (NEGATIVE); COLOR, URINE YELLOW (YELLOW); GLUCOSE, URINE (UA) AUTO NEGATIVE (NEGATIVE); KETONE, URINE AUTO NEGATIVE (NEGATIVE); LEUKOCYTE ESTERASE, URINE AUTO 1+ (NEGATIVE); MUCUS, URINE SMALL (NEGATIVE); NITRITE, URINE AUTO NEGATIVE (NEGATIVE); OSMOLALITY URINE 230 MOSM/KG (500-800); PROTEIN, URINE AUTO 1+ mg/dL (NEGATIVE); RBC, URINE AUTO 1 /HPF (0-3); SPECIFIC GRAVITY URINE AUTO 1.008 (1.002-1.035); SQUAMOUS EPITHELIAL CELL UR AU 0 /HPF (0-6); UROBILINOGEN, URINE AUTO 0.2 mg/dL (0.0-2.0); WBC, URINE AUTO 14 /HPF (0-3)
[2019-09-13 10:59] LABS: SODIUM,RANDOM URINE 33 MEQ/L
== END ==
LOC: M LAB 08:19
PROVIDERS: ATTEND Physician Assistant
DX: R63.1 Polydipsia (principal)

== ENCOUNTER → 2019-10-02 | Outpatient (CLI) | payer MEDICARE, OTHER ==
--- NOTE | 2019-10-05 09:39 | DEXA ---
AP SPINE L1 - L4 1.208 0.1 1.9 LT FEMUR TOTAL 0.953 -0.4 1.5 LT NECK 0.857 -1.3 0.8 RT FEMUR TOTAL 0.885 -1.0 0.9 RT NECK 0.808 -1.7 0.4 TOTAL BODY TOTAL OTHER COMMENTS: Normal bone densitometry of the spine. There is low bone density of the hips. The decreased density of the spine does represent a significant change. The decreased density of the left hip does represent significant change. The decreased density of the right hip does represent a significant change. The density of the spine has decreased 2.2% since the initial exam on 07/30/2000. The decreased 6.2% since the most recent exam on 09/28/2017. The density of the left hip has decreased 5.0% since initial exam on 07/30/2000. The density of the left hip has decreased 6.7% since the most recent exam on 09/28/2017. The density of the right hip has decreased 9.2% since initial exam on 07/30/2000. The density of the right hip has decreased 8.2% since the most recent exam on 09/28/2017. FOLLOW-UP: Recommendation for the next bone density exam: 2 years. SILVA
== END ==
LOC: M WHC 08:33
PROVIDERS: ATTEND Nurse Practitioner Family
DX: N95.9 Unspecified menopausal and perimenopausal disorder (principal)

== ENCOUNTER → 2019-12-21 | Outpatient (CLI) | payer MEDICARE, OTHER ==
[~2019-12-21] MED LIST changes: +AMLO1TAB24 PO; -AMLO5TAB6 PO; +VITA50005 PO; +VRAY1.5C PO
[2020-01-20 13:49] LABS: BASO # 0.1 10^3/uL (0.0-0.2); BASO % 0.9 % (0.0-1.0); EOS # 0.2 10^3/uL (0.0-0.5); HEMATOCRIT 35.9 % (36.0-47.0); HEMOGLOBIN 11.2 g/dl (12.0-15.5); LYMPH # 3.3 10^3/uL (1.5-5.0); LYMPH % 38.6 % (24.0-44.0); MEAN CORPUSCULAR HEMOGLOBIN 30.9 pg (27.0-33.0); MEAN CORPUSCULAR HGB CONC 31.2 g/dl (32.0-36.5); MEAN CORPUSCULAR VOLUME 98.9 fl (80.0-96.0); MONO # 0.9 10^3/uL (0.0-0.8); MONO % 10.2 % (0.0-5.0); NEUTROPHILS # 4.1 10^3/uL (1.5-8.5); NEUTROPHILS % 48.1 % (36.0-66.0); PLATELET COUNT, AUTOMATED 326 10^3/uL (150-450); RED BLOOD COUNT 3.63 10^6/uL (4.00-5.40); WHITE BLOOD COUNT 8.5 10^3/uL (4.0-10.0)
[2020-02-05 08:35] LABS: ALBUMIN 3.6 GM/DL (3.2-5.2); BILIRUBIN,TOTAL 0.3 MG/DL (0.2-1.0); CREATININE FOR GFR 1.42 MG/DL (0.55-1.30); FREE T4 1.03 NG/DL (0.76-1.46); GLOMERULAR FILTRATION RATE 38.1 (>39); POTASSIUM SERUM 3.5 MEQ/L (3.5-5.1); THYROID STIMULATING HORMONE 2.74 uIU/ML (0.358-3.740); TOTAL PROTEIN 6.9 GM/DL (6.4-8.2)
[2020-02-05 08:36] LABS: TOTAL 25(OH) VITAMIN D 59.2 NG/ML (30.0-100.0)
== END ==
LOC: M LAB 06:15
PROVIDERS: ATTEND Physician Assistant
DX: E03.9 Hypothyroidism, unspecified (principal); I10 Essential (primary) hypertension; R60.9 Edema, unspecified; E55.9 Vitamin D deficiency, unspecified; Z79.899 Other long term (current) drug therapy

== ENCOUNTER 2020-01-04 14:53 | Emergency (ER) | payer MEDICARE, OTHER ==
[2020-01-04] MEDS ORDERED: ACETAMINOPHEN 325 MG TAB As Ordered ONE (15:06)
[2020-01-04] MEDS ORDERED: ACETAMINOPHEN 325 MG TAB ONE (15:06)
== END 2020-01-04 15:30 | disposition home or self-care (01) ==
LOC: M ED 14:53
DX: S01.01XA Laceration without foreign body of scalp, initial encounter (principal); W01.0XXA Fall on same level from slipping, tripping and stumbling without subsequent striking against object, initial encounter; Y92.511 Restaurant or cafe as the place of occurrence of the external cause; I11.0 Hypertensive heart disease with heart failure; E11.9 Type 2 diabetes mellitus without complications; Z88.2 Allergy status to sulfonamides; Z91.030 Bee allergy status; Z88.1 Allergy status to other antibiotic agents; Z79.899 Other long term (current) drug therapy

== ENCOUNTER → 2020-02-27 | Outpatient (CLI) | payer MEDICARE, OTHER ==
[2020-02-27 11:26] LABS: BASO # 0.1 10^3/uL (0.0-0.2); BASO % 1.1 % (0.0-1.0); EOS # 0.3 10^3/uL (0.0-0.5); EOS % 2.8 % (0.0-3.0); HEMATOCRIT 34.9 % (36.0-47.0); HEMOGLOBIN 10.6 g/dl (12.0-15.5); LYMPH # 2.5 10^3/uL (1.5-5.0); LYMPH % 28.9 % (24.0-44.0); MEAN CORPUSCULAR HEMOGLOBIN 30.5 pg (27.0-33.0); MEAN CORPUSCULAR HGB CONC 30.4 g/dl (32.0-36.5); MEAN CORPUSCULAR VOLUME 100.3 fl (80.0-96.0); MONO % 10.9 % (0.0-5.0); NEUTROPHILS # 4.9 10^3/uL (1.5-8.5); NEUTROPHILS % 56.1 % (36.0-66.0); PLATELET COUNT, AUTOMATED 357 10^3/uL (150-450); RED BLOOD COUNT 3.48 10^6/uL (4.00-5.40); WHITE BLOOD COUNT 8.8 10^3/uL (4.0-10.0)
[2020-02-27 11:51] LABS: ALBUMIN 3.5 GM/DL (3.2-5.2); BILIRUBIN,TOTAL 0.3 MG/DL (0.2-1.0); CALCIUM LEVEL 8.9 MG/DL (8.8-10.2); CREATININE FOR GFR 1.05 MG/DL (0.55-1.30); MAGNESIUM LEVEL 2.9 MG/DL (1.8-2.4); POTASSIUM SERUM 4.6 MEQ/L (3.5-5.1); THYROID STIMULATING HORMONE 1.08 uIU/ML (0.358-3.740); TOTAL PROTEIN 6.8 GM/DL (6.4-8.2)
== END ==
LOC: M LAB 08:52
PROVIDERS: ATTEND Internal Medicine Cardiovascular Disease
DX: I50.9 Heart failure, unspecified (principal); I47.2 Ventricular tachycardia; E78.2 Mixed hyperlipidemia

== ENCOUNTER → 2020-05-08 | Outpatient (REF) | payer MEDICARE, OTHER ==
[~2020-05-08] MED LIST changes: +FOLTTAB9 PO; +MAGN400C2 PO
[2020-05-08 12:59] LABS: APPEARANCE, URINE CLEAR (CLEAR); BACTERIA, URINE AUTO NEGATIVE (NEGATIVE); BILIRUBIN, URINE AUTO NEGATIVE (NEGATIVE); BLOOD, URINE BLOOD NEGATIVE (NEGATIVE); COLOR, URINE STRAW (YELLOW); GLUCOSE, URINE (UA) AUTO NEGATIVE (NEGATIVE); KETONE, URINE AUTO NEGATIVE (NEGATIVE); LEUKOCYTE ESTERASE, URINE AUTO TRACE (NEGATIVE); NITRITE, URINE AUTO NEGATIVE (NEGATIVE); PROTEIN, URINE AUTO NEGATIVE (NEGATIVE); RBC, URINE AUTO 0 /HPF (0-3); SPECIFIC GRAVITY URINE AUTO 1.003 (1.002-1.035); SQUAMOUS EPITHELIAL CELL UR AU 0 /HPF (0-6); UROBILINOGEN, URINE AUTO 0.2 mg/dL (0.0-2.0); WBC, URINE AUTO 1 /HPF (0-3)
== END ==
LOC: M LAB REF 11:36
PROVIDERS: ATTEND Physician Assistant
DX: R53.1 Weakness (principal); R25.1 Tremor, unspecified

== ENCOUNTER → 2020-06-28 | Outpatient (CLI) | payer MEDICARE, OTHER ==
[2020-06-28 11:37] LABS: BASO # 0.1 10^3/uL (0.0-0.2); BASO % 0.8 % (0.0-1.0); EOS # 0.4 10^3/uL (0.0-0.5); EOS % 4.3 % (0.0-3.0); HEMATOCRIT 36.3 % (36.0-47.0); LYMPH # 2.5 10^3/uL (1.5-5.0); LYMPH % 28.9 % (24.0-44.0); MEAN CORPUSCULAR HEMOGLOBIN 30.4 pg (27.0-33.0); MEAN CORPUSCULAR HGB CONC 30.3 g/dl (32.0-36.5); MEAN CORPUSCULAR VOLUME 100.3 fl (80.0-96.0); MONO # 0.8 10^3/uL (0.0-0.8); MONO % 9.4 % (0.0-5.0); NEUTROPHILS # 4.8 10^3/uL (1.5-8.5); NEUTROPHILS % 56.4 % (36.0-66.0); PLATELET COUNT, AUTOMATED 407 10^3/uL (150-450); RED BLOOD COUNT 3.62 10^6/uL (4.00-5.40); WHITE BLOOD COUNT 8.5 10^3/uL (4.0-10.0)
[2020-06-28 12:19] LABS: ALBUMIN 3.7 GM/DL (3.2-5.2); BILIRUBIN,TOTAL 0.5 MG/DL (0.2-1.0); CALCIUM LEVEL 9.6 MG/DL (8.8-10.2); CREATININE FOR GFR 1.25 MG/DL (0.55-1.30); FREE T4 0.93 NG/DL (0.76-1.46); GLOMERULAR FILTRATION RATE 44.1 (>39); PERCENT SATURATION 30.4 % (13.2-45.0); POTASSIUM SERUM 3.8 MEQ/L (3.5-5.1); THYROID STIMULATING HORMONE 0.831 uIU/ML (0.358-3.740); TOTAL 25(OH) VITAMIN D 49.4 NG/ML (30.0-100.0)
== END ==
LOC: M LAB 10:29
PROVIDERS: ATTEND Family Medicine
DX: D64.9 Anemia, unspecified (principal); Z79.899 Other long term (current) drug therapy

== ENCOUNTER 2020-07-11 06:42 | Emergency (ER) | payer MEDICARE, OTHER ==
[~2020-07-11] VITALS: Ht 154.9 cm; Wt 68.2 kg
--- OUTSIDE RECORDS SUMMARY | 2020-07-11 06:48 | CCD | Continuity of Care Document ---
Author Author Rachel MORGAN M.D. 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 Name Role Phone Kirk Rodrigues AUTM [phone] Temitope Murillo DO AUTM [phone] Problems Description No Information Available Social History Type Date Description Comments Sex Unknown Allergies, Adverse Reactions, Alerts Description No Information Available Medications Description No Information Available Immunizations Description No Information Available Vital Signs Description No Information Available Results Description No Information Available Procedures Date Code Description Status 06/24/2020 08794 Nerve Conduction 11-12 Studies C ompleted 06/24/2020 78364 Needle Electromyography Complete , Five Or More Muscles Studied Completed 06/24/2020 83625 Needle Electromyography Complete , Five Or More Muscles Studied Completed Medical Devices Description No Information Available Encounters Type Date Location Provider Dx Diagnosis Office Visit 06/18/2020 2:30p Main office - [place] Emily Scruggs M.D. M54.5 Low back pain G20 Parkinson's disease M62.9 Disorder of muscle, unspecif ied Assessments Date Code Description Provider 06/24/2020 M54.89 Other dorsalgia Beth Morgan M.D. 06/24/2020 M62.9 Disorder of muscle, unspecified Beth Morgan M.D. 06/18/2020 M54.5 Low back pain Lydia Sandoval 06/18/2020 G20 Parkinson's disease Emily Scruggs M.D. 06/18/2020 M62.9 Disorder of muscle, unspecified Emily Scruggs M.D. Plan of Treatment Future Appointment(s):* 07/31/2020 12:00 pm - Beth Morgan M.D. at [facility] * 07/05/2020 1:30 pm - [facility] at [facility] * 07/04/2020 11:15 am - EEG at [facility] Functional Status Description No Information Available Mental Status Description No Information Available Referrals Description No Information Available
--- OUTSIDE RECORDS SUMMARY | 2020-07-11 06:48 | CCD | Continuity of Care Document ---
Author Author Nilam/Rachel VALE Organization Unknown Address [address] [place] [id number] Phone [phone] Care Team Providers Care Automated Weaver Name Role Phone Kirk Rodrigues AUTM [phone] Temitope Murillo DO AUTM Problems Description No Information Available Social History Type Date Description Comments Sex Unknown Allergies, Adverse Reactions, Alerts Description No Information Available Medications Description No Information Available Immunizations Description No Information Available Vital Signs Description No Information Available Results Description No Information Available Procedures Date Code Description Status 07/04/2020 21119 EEG Recording Awake & Asleep Com pleted 06/24/2020 60932 Nerve Conduction 11-12 Studies C ompleted 06/24/2020 64004 Needle Electromyography Complete , Five Or More Muscles Studied Completed 06/24/2020 38451 Needle Electromyography Complete , Five Or More Muscles Studied Completed Medical Devices Description No Information Available Encounters Type Date Location Provider Dx Diagnosis Office Visit 06/18/2020 2:30p Main office - [place] Emily Scruggs M.D. M54.5 Low back pain G20 Parkinson's disease M62.9 Disorder of muscle, unspecif ied Assessments Date Code Description Provider 07/04/2020 G25.0 Essential tremor EEG 07/04/2020 R25.8 Other abnormal involuntary movem ents EEG 06/24/2020 M54.89 Other dorsalgia Beth Morgan M.D. 06/24/2020 M62.9 Disorder of muscle, unspecified Beth Mogran M.D. 06/18/2020 M54.5 Low back pain Lydia Sandoval 06/18/2020 G20 Parkinson's disease Emily Scruggs M.D. 06/18/2020 M62.9 Disorder of muscle, unspecified Emily Scruggs M.D. Plan of Treatment Future Appointment(s):* 07/26/2020 10:00 am - Beth Morgan M.D. at Main office [facility] Functional Status Description No Information Available Mental Status Description No Information Available Referrals Description No Information Available
--- OUTSIDE RECORDS SUMMARY | 2020-07-11 06:48 | CCD | Continuity of Care Document ---
Author Author Rachel RODRIGUES Organization Unknown Address [address] [place] [address] 6 [address] [place] [address] Phone [phone] Care Team Providers Care Aesthetician Name Role Phone Temitope Murillo D.O. AUTM [phone] Chapincito Hardy MD AUTM [phone] [facility] AUTM [phone] Jose Benton MD AUTM [phone] [facility] AUTM [phone] [facility] AUTM Beth Morgan M.D. AUTM [phone] Problems Active Problems Provider Date Moderate recurrent major depression CAIT Kearns Ons et: 06/21/2018 Essential hypertension CAIT Kearns Onset: 9 Hypothyroidism CAIT Kearns Onset: 06/21/2018 Cataract CAIT Kearns Onset: 06/22/2018 Basal cell carcinoma of nose CAIT Kearns Onset: Social History Type Date Description Comments Sex Unknown ETOH Use Denies alcohol use Tobacco Use Start: Unknown Patient has never smoked Recreational Drug Use Denies Drug Use Smoking Status Reviewed: 07/03/20 Patient has never smoked Exercise Type/Frequency Gym 2 times a week Sun Exposure Uses sunscreen Seat Belt/Car Seat Always uses seat belt Allergies, Adverse Reactions, Alerts Active Allergies Reaction Severity Comments Date Sulfa Antibiotics Hives 06/02/2018 Bee Sting Hives 06/02/2018 Doxycycline 12/27/2019 Medications Active Medications SIG Qnty Indications Ordering Provide r Date Slow-Mag 71.5-119mg Tablets DR 1 tab by mouth twice a day 180tabs [place] KlineOLm 02/2021 Ergocalciferol 1.25mg (33985 Ut) C apsules take 1 weekly until gone. 12caps [place] KlineOLm 05/14/2020 Shingrix 50mcg/0.5ML Suspension Re c inject subcutaneous times one 1units [place] KlineO Lm 02/26/2020 Physical Therapy Right leg and Balance/Posture 2-3 times a week for 6 weeks M79.604 [place] KlineOLm 07/31/2019 R53.1 Jean Claude Back Support Misc 1 as directed Dx: thoracic kyphosis. M40.04 [place] KlineOLm Furosemide 40mg Tablets 1 by mouth every day as needed for swelling. 90tabs R60.9 [place] KlineOLm 01/02/2019 Finger Splint Small Misc Finger splint of right littler finger of DIP with finger in full extension. stax- finger splint 1units M20.011 Temitope Murillo D.O. 12/23/2018 Amlodipine Besylate 10mg Tablets Take One Tablet By Mouth Every Day 90tabs [place] KlineOLm 11/21/2018 Gibsonia Carbonate 150mg Capsules 1 cap by mouth in the morning Unknown Latuda 40mg Tablets take one tablet by mouth daily. Unknown Aspir-[address] 1 by mouth every day Unknown B Complete Tablets 1 tablet by mouth per day Unknown Levothyroxine Sodium 50mcg Tablets take one tablet by mouth once a day in the morning on an empty stomach 90tabs [place] KlineO. Viibryd 40mg Tablets Take One Tablet By Mouth Once A Day With Food Unknown Lamotrigine 100mg Tablets Take One Tablet By Mouth Twice A Day Unknown Gibsonia Carbonate 300mg Capsules Take One Capsule By Mouth in the evening Unknown History Medications Tetanus/Diphtheria Toxoids-Adsorbed Adul t 2-2LF/0.5ML Suspension administer tetanus without pertussis at Pharmacy. 5ml Temitope Murillo D.O. 01/15/2020 - 01/15/2020 Tdap Vaccine administer tetanus diptheria and Pertussis Vaccine at pharmacy, Im injection. 1units Temitope Murillo D.O. 01/14 - 01/15/2020 Immunizations Description No Information Available Vital Signs Date Vital Result Comment 07/03/2020 9:11am BP Systolic 140 mmHg BP Diastolic 74 mmHg Height 59.6 inches 4'11.60" Weight 150.38 lb BMI (Body Mass Index) 29.8 kg/m2 Heart Rate 103 /min Respiratory Rate 14 /min Body Temperature 98.3 F O2 % BldC Oximetry 97 % [place] Body Weight 100 lb 05/14/2020 8:57am BP Systolic 144 mmHg BP Diastolic 68 mmHg Height 59.6 inches 4'11.60" Weight 153.00 lb BMI (Body Mass Index) 30.3 kg/m2 Heart Rate 96 /min Respiratory Rate 18 /min Body Temperature 98.3 F O2 % BldC Oximetry 99 % [place] Body Weight 100 lb Results Test Acquired Date Facility Test Result H/L Range Note Comprehensive Metabolic Profil 06/28/2020 [place] [id number] [phone] Glucose, Fasting 97 mg/dL Normal 70-100 Blood Urea Nitrogen 19 mg/dL High 7-18 Creatinine For GFR 1.25 mg/dL Normal 0.55-1.30 Glomerular Filtration Rate 44.1 Normal >39 1 Sodium Level 141 mEq/L Normal 136-145 Potassium Serum 3.8 mEq/L Normal 3.5-5.1 Chloride Level 106 mEq/L Normal 98-107 Carbon Dioxide Level 30 mEq/L Normal 21-32 Anion Gap 5 mEq/L Low 8-16 Calcium Level 9.6 mg/dL Normal 8.8-10.2 Ast/Sgot 14 U/L Normal 7-37 Alt/SGPT 29 U/L Normal 12-78 Alkaline Phosphatase 80 U/L Normal 45-117 Bilirubin,Total 0.5 mg/dL Normal 0.2-1.0 Total Protein 7.0 GM/DL Normal 6.4-8.2 Albumin 3.7 GM/DL Normal 3.2-5.2 Albumin/Globulin Ratio 1.1 Low 1.2-2.2 CBC With Differential 06/28/[address] [address] [phone] White Blood Count 8.5 10 Normal 4.0-10.0 Red Blood Count 3.62 10 Low 4.00-5.40 Hemoglobin 11.0 g/dL Low 12.0-15.5 Hematocrit 36.3 % Normal 36.0-47.0 Mean Corpuscular Volume 100.3 fl High 80.0-96.0 Mean Corpuscular Hemoglobin 30.4 pg Normal 27.0-33.0 Mean Corpuscular HGB Conc 30.3 g/dL Low 32.0-36.5 Red Cell Distribution Width 12.7 % Normal 11.5-14.5 Platelet Count, Automated 407 10 Normal 150-450 Neutrophils % 56.4 % Normal 36.0-66.0 Lymph % 28.9 % Normal 24.0-44.0 Valley % 9.4 % High 0.0-5.0 Eos % 4.3 % High 0.0-3.0 Baso % 0.8 % Normal 0.0-1.0 Immature Granulocyte % 0.2 % Normal 0-3.0 Nucleated Red Blood Cell % 0.0 % Normal 0-0 Neutrophils # 4.8 10 Normal 1.5-8.5 Lymph # 2.5 10 Normal 1.5-5.0 Valley # 0.8 10 Normal 0.0-0.8 Eos # 0.4 10 Normal 0.0-0.5 Baso # 0.1 10 Normal 0.0-0.2 FT4&TSH Panel 06/28/2020 [facility] ce nter [address] [place] [address] [phone] Thyroid Stimulating Hormone 0.831 uIU/ML Normal 0. 358-3.740 Free T4 0.93 ng/dL Normal 0.76-1.46 Total Iron Binding Capacit 06/28/[address] [address] [phone] Iron (Fe) 101 g/dL Normal 50-170 Total Iron Binding Capacity 332 g/dL Normal 250-450 Percent Saturation 30.4 % Normal 13.2-45.0 Laboratory test finding 06/28/2020 [facility] [address] [place] [address] [phone] Vitamin B12 Level 575 pg/mL Normal 247-911 2 Total 25(Oh) Vitamin D 49.4 NG/ML Normal 30.0-100.0 Ferritin 96 NG/ML Normal 8-252 Ua Routine 05/08/2020 [facility] Outpatient Testi ng (Registration) [address] [place] [address] [phone] Appearance, Urine CLEAR Normal Clear Color, Urine STRAW Normal Yellow PH,Urine 7.0 units Normal 5.0-9.0 Specific Jay Urine Auto 1.003 Normal 1.002-1.035 Protein, Urine Auto NEGATIVE mg/dL Normal Negative Glucose, Urine (Ua) Auto NEGATIVE mg/dL Normal Negative Ketone, Urine Auto NEGATIVE mg/dL Normal Negative Urobilinogen, Urine Auto 0.2 mg/dL Normal 0.0-2.0 Bilirubin, Urine Auto NEGATIVE Normal Negative Nitrite, Urine Auto NEGATIVE Normal Negative Leukocyte Esterase, Urine Auto TRACE High Negative Blood, Urine Blood NEGATIVE Normal Negative WBC, Urine Auto 1 /HPF Normal 0-3 RBC, Urine Auto 0 /HPF Normal 0-3 Bacteria, Urine Auto NEGATIVE Normal Negative Squamous Epithelial Cell Ur AU 0 /HPF Normal 0-6 Hyaline Cast, Urine Auto 0 /LPF Normal 0-1 Laboratory test finding 05/08/2020 [facility] Outpatient T esting (Registration) [address] [place] [address] [phone] Urine Culture FULL REPORT IN L <SEE NOTE> Normal 3 Laboratory test finding 05/07/2020 [facility] Outpatient T esting (Registration) [address] [place] [address] [phone] Urine Culture <pending> Laboratory test finding 05/07/2020 [facility] Outpatient T esting (Registration) [address] [place] [address] [phone] Gibsonia Level 0.61 mEq/L Normal 0.60-1.20 Vitamin B12 & Folate 05/07/2020 [facility] Outpatient Test ing (Registration) [address] [place], [place] [address] [phone] Vitamin B12 Level 671 pg/mL Normal 4 Folate > 24.0 NG/ML Normal 5 FT4&TSH Panel 05/07/2020 [facility] Outpatient Testi ng (Registration) [address] [place] [id number] [phone] Thyroid Stimulating Hormone 1.040 uIU/ML Normal 0. 358-3.740 Free T4 1.02 ng/dL Normal 0.76-1.46 Laboratory test finding 05/02/2020 [facility] Outpatient T esting (Registration) [address] [place] [address] [phone] Ferritin 72 NG/ML Normal 8-252 Serum Protein Electrophoresis 05/02/2020 [facility] Outpat ient Testing (Registration) [address] [place] [address] [phone] Albumin % 56.7 % Normal 55.8-66.1 Ogmlm-0-Vrqnwhbv % 5.1 % High 2.9-4.9 Paxuz-3-Evjxnigeh % 12.7 % High 7.1-11.8 Xlez-8-Dktygnzyb % 7.3 % High 4.7-7.2 Ipez-5-Mmphtlcgq % 7.2 % High 3.2-6.5 Gamma Globulin % 11.0 % Low 11.1-18.8 Albumin 4.08 GM/DL Normal 3.29-5.55 Cbpef-3-Ecxmrdpiz 0.37 GM/DL Normal 0.17-0.41 Xmphr-2-Isggqsedw 0.91 GM/DL Normal 0.42-0.99 Zuxm-2-Ujeoohbbe 0.53 GM/DL Normal 0.28-0.60 Vurj-0-Ncxirntya 0.52 GM/DL Normal 0.19-0.55 Gamma Globulins 0.79 GM/DL Normal 0.65-1.58 Total Protein 7.2 GM/DL Normal 6.4-8.2 Spep Interpretation SEE COMMENT Normal 6 Spep Pathologist Review REV'D BY O ADJAP <SEE NOTE> Normal 7 Immunotyping (Immunofixation) Serum (If 05/02/2020 [facility] Outpatient Testing (Registration) [address] [place] [address] [phone] It Serum Interpretation SEE COMMENT Normal 8 Its Pathologist Review REV'D BY O ADJAP <SEE NOTE> Normal 9 Total Iron Binding Capacit 05/02/2020 [facility] Outpatien t Testing (Registration) [address] [place], [place] [id number] [phone] Iron (Fe) 106 g/dL Normal 50-170 Total Iron Binding Capacity 376 g/dL Normal 250-450 Percent Saturation 28.2 % Normal 13.2-45.0 Laboratory test finding 05/02/2020 [facility] Outpatient T esting (Registration) [address] [place], [place] [id number] [phone] LDH Lactate Dehydrogenase 210 U/L Normal 84-246 Comprehensive Metabolic Profil 05/02/2020 [facility] Outpa tient Testing (Registration) [address] [place] [address] [phone] Glucose, Fasting 75 mg/dL Normal 70-100 Blood Urea Nitrogen 14 mg/dL Normal 7-18 Creatinine For GFR 1.11 mg/dL Normal 0.55-1.30 Glomerular Filtration Rate 50.6 Normal >39 1 0 Sodium Level 142 mEq/L Normal 136-145 Potassium Serum 3.9 mEq/L Normal 3.5-5.1 Chloride Level 109 mEq/L High 98-107 Carbon Dioxide Level 31 mEq/L Normal 21-32 Anion Gap 2 mEq/L Low 8-16 Calcium Level 9.5 mg/dL Normal 8.8-10.2 Ast/Sgot 14 U/L Normal 7-37 Alt/SGPT 29 U/L Normal 12-78 Alkaline Phosphatase 86 U/L Normal 45-117 Bilirubin,Total 0.3 mg/dL Normal 0.2-1.0 Total Protein 7.2 GM/DL Normal 6.4-8.2 Albumin 3.7 GM/DL Normal 3.2-5.2 Albumin/Globulin Ratio 1.1 Low 1.2-2.2 Laboratory test finding 05/02/2020 [facility] Outpatient T esting (Registration) [address] [place], [place] [id number] [phone] Haptoglobin 194 mg/dL Normal 42-346 11 Direct Ruth 05/02/2020 [facility] Outpatient Testi ng (Registration) [address] [place] [address] [phone] Wero Result Calc NEGATIVE Normal Retic (Reticulocyte Count) 05/02/2020 [facility] Outpatien t Testing (Registration) [address] [place], [place] [id number] [phone] Reticulocyte % 1.2 % Normal 0.5-1.5 Reticulocyte # 46.5 10 Normal 17-77 Retic Hemoglobin Equivalent 35.5 pg Normal 24-36 CBC With Differential 05/02/2020 [facility] Outpatient Nirali ting (Registration) [address] [place] [address] [phone] White Blood Count 9.5 10 Normal 4.0-10.0 Red Blood Count 3.95 10 Low 4.00-5.40 Hemoglobin 12.3 g/dL Normal 12.0-15.5 Hematocrit 39.3 % Normal 36.0-47.0 Mean Corpuscular Volume 99.5 fl High 80.0-96.0 Mean Corpuscular Hemoglobin 31.1 pg Normal 27.0-33.0 Mean Corpuscular HGB Conc 31.3 g/dL Low 32.0-36.5 Red Cell Distribution Width 13.1 % Normal 11.5-14.5 Platelet Count, Automated 434 10 Normal 150-450 Neutrophils % 59.8 % Normal 36.0-66.0 Lymph % 25.2 % Normal 24.0-44.0 Valley % 10.0 % High 0.0-5.0 Eos % 3.7 % High 0.0-3.0 Baso % 1.0 % Normal 0.0-1.0 Immature Granulocyte % 0.3 % Normal 0-3.0 Nucleated Red Blood Cell % 0.0 % Normal 0-0 Neutrophils # 5.7 10 Normal 1.5-8.5 Lymph # 2.4 10 Normal 1.5-5.0 Valley # 1.0 10 High 0.0-0.8 Eos # 0.4 10 Normal 0.0-0.5 Baso # 0.1 10 Normal 0.0-0.2 CBC With Differential 02/27/2020 [facility] Outpatient Nirali ting (Registration) [address] [place] [address] [phone] White Blood Count 8.8 10 Normal 4.0-10.0 Red Blood Count 3.48 10 Low 4.00-5.40 Hemoglobin 10.6 g/dL Low 12.0-15.5 Hematocrit 34.9 % Low 36.0-47.0 Mean Corpuscular Volume 100.3 fl High 80.0-96.0 Mean Corpuscular Hemoglobin 30.5 pg Normal 27.0-33.0 Mean Corpuscular HGB Conc 30.4 g/dL Low 32.0-36.5 Red Cell Distribution Width 13.5 % Normal 11.5-14.5 Platelet Count, Automated 357 10 Normal 150-450 Neutrophils % 56.1 % Normal 36.0-66.0 Lymph % 28.9 % Normal 24.0-44.0 Valley % 10.9 % High 0.0-5.0 Eos % 2.8 % Normal 0.0-3.0 Baso % 1.1 % High 0.0-1.0 Immature Granulocyte % 0.2 % Normal 0-3.0 Nucleated Red Blood Cell % 0.0 % Normal 0-0 Neutrophils # 4.9 10 Normal 1.5-8.5 Lymph # 2.5 10 Normal 1.5-5.0 Valley # 1.0 10 High 0.0-0.8 Eos # 0.3 10 Normal 0.0-0.5 Baso # 0.1 10 Normal 0.0-0.2 Comprehensive Metabolic Profil 02/27/2020 [facility] Outpa tient Testing (Registration) [address] [place] [address] [phone] Glucose, Fasting 86 mg/dL Normal 70-100 Blood Urea Nitrogen 15 mg/dL Normal 7-18 Creatinine For GFR 1.05 mg/dL Normal 0.55-1.30 Glomerular Filtration Rate 54.0 Normal >39 1 2 Sodium Level 144 mEq/L Normal 136-145 Potassium Serum 4.6 mEq/L Normal 3.5-5.1 Chloride Level 109 mEq/L High 98-107 Carbon Dioxide Level 31 mEq/L Normal 21-32 Anion Gap 4 mEq/L Low 8-16 Calcium Level 8.9 mg/dL Normal 8.8-10.2 Ast/Sgot 15 U/L Normal 7-37 Alt/SGPT 24 U/L Normal 12-78 Alkaline Phosphatase 82 U/L Normal 45-117 Bilirubin,Total 0.3 mg/dL Normal 0.2-1.0 Total Protein 6.8 GM/DL Normal 6.4-8.2 Albumin 3.5 GM/DL Normal 3.2-5.2 Albumin/Globulin Ratio 1.1 Low 1.2-2.2 Laboratory test finding 02/27/2020 [facility] Outpatient T madyson (Registration) [address] [place], [place] [id number] [phone] Magnesium Level 2.9 mg/dL High 1.8-2.4 13 NT-Pro BNP 140 pg/mL Normal <450 14 Thyroid Stimulating Hormone 1.080 uIU/ML Normal 0.358-3.740 15 1 Units are mL/min/1.73 m2 Chronic Kidney Disease Staging per NKF: Stage I & II GFR >=60 Normal to Mildly Decreased Stage III GFR 30-59 Moderately Decreased Stage IV GFR 15-29 Severely Decreased Stage V GFR <15 Very Little GFR Left ESRD GFR <15 on TABLEAU LEAD 2 VITAMIN B12 NORMAL RANGE NORMAL 247 - 911 PG/ML INDETERMINATE 211 - 246 PG/ML DEFICIENT LESS THAN 211 PG/ML 3 FULL REPORT IN LAB NOTES (eC W and [facility]). NO GROWTH 4 VITAMIN B12 NORMAL RANGE NORMAL 247 - 911 PG/ML INDETERMINATE 211 - 246 PG/ML DEFICIENT LESS THAN 211 PG/ML 5 FOLATE NORMAL RANGE NORMAL GREATER THAN 5.4 NG/ML INDETERMINATE 3.4-5.4 NG/ML DEFICIENT LESS THAN 3.4 NG/ML 6 NO M-SPIKE(S)NOTED. 7 REV'D BY O AMINTA 8 NO MONOCLONAL BANDS NOTED. 9 REV'D BY O ADJAPONG 10 Units are mL/min/1.73 m2 Chronic Kidney Disease Staging per NKF: Stage I & II GFR >=60 Normal to Mildly Decreased Stage III GFR 30-59 Moderately Decreased Stage IV GFR 15-29 Severely Decreased Stage V GFR <15 Very Little GFR Left ESRD GFR <15 on TABLEAU LEAD 11 Performed at: RN - [facility] [address] [id number] [employer]oes Sewer: Geovanna Stroud MD, Phone: [phone] Units are mL/min/1.73 m2 Chronic Kidney Disease Staging per NKF: Stage I & II GFR >=60 Normal to Mildly Decreased Stage III GFR 30-59 Moderately Decreased Stage IV GFR 15-29 Severely Decreased Stage V GFR <15 Very Little GFR Left ESRD GFR <15 on TABLEAU LEAD 13 FAX TO [phone] FAX TO [phone] FAX TO [phone] FAX TO [phone] FAX TO [phone] FAX TO [phone] Procedures Description No Information Available Medical Devices Description No Information Available Encounters Type Date Location Provider Dx Diagnosis Office Visit 05/14/2020 8:40a [facility] CAIT Kearns R53.1 Weakness R25.1 Tremor, unspecified R60.9 Edema, unspecified R32 Unspecified urinary incontin ence M54.5 Low back pain M25.552 Pain in left hip Office Visit 05/07/2020 3:20p [facility] CAIT Kearns M54.5 Low back pain R53.1 Weakness R25.1 Tremor, unspecified R60.9 Edema, unspecified R32 Unspecified urinary incontin ence M25.552 Pain in left hip Office Visit 04/02/2020 8:20a [facility] Temitope Murillo D.O. 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 CAIT Romero Z48.02 Encounter for removal of sut ures Assessments Date Code Description Provider 07/03/2020 E03.9 Hypothyroidism, unspecified [place] en CAIT Mahajan 07/03/2020 F31.9 Bipolar disorder, unspecified St even CAIT Mahajan 07/03/2020 E55.9 Vitamin D deficiency, unspecifie d CAIT Kearns 07/03/2020 M54.17 Radiculopathy, lumbosacral regio n CAIT Kearns 07/03/2020 R25.1 Tremor, unspecified Kirk CAIT Jackson 07/03/2020 E83.42 Hypomagnesemia Kirk D Ravi , PA 05/14/2020 R53.1 Weakness Kirk D Ravi , PA 05/14/2020 R25.1 Tremor, unspecified Kirk D Elda lewis, PA 05/14/2020 R60.9 Edema, unspecified Kirk Araceli niño, PA 05/14/2020 R32 Unspecified urinary incontinence Kirk Rodrigues, PA 05/14/2020 M54.5 Low back pain Kirk Araceli Rodrigues , PA 05/14/2020 M25.552 Pain in left hip Kirk Araceli Corea n, PA 05/07/2020 M54.5 Low back pain Kirk Araceli Rodrigues , PA 05/07/2020 R53.1 Weakness Kirk D Ravi , PA 05/07/2020 R25.1 Tremor, unspecified Kirk D Elda lewis, PA 05/07/2020 R60.9 Edema, unspecified Kirk D Leonarda niño, PA 05/07/2020 R32 Unspecified urinary incontinence Kirk Araceli Rodrigues, PA 05/07/2020 M25.552 Pain in left hip Kirk Araceli pa, PA 04/02/2020 E03.9 Hypothyroidism, unspecified Temitope Murillo D.O. 04/02/2020 F31.9 Bipolar disorder, unspecified James Murillo D.O. 04/02/2020 E55.9 Vitamin D deficiency, unspecifie d Araceli Kline.O. 04/02/2020 M54.17 Radiculopathy, lumbosacral regio n Araceli Kline.O. 04/02/2020 I12.9 Hypertensive chronic kidney disease with stage 1 through stage 4 chronic kidney disease, or unspecified chronic kidney disease Araceli Pitt.O. 04/02/2020 Z88.2 Allergy status to sulfonamides Araceli Kraft.O. 04/02/2020 Z79.899 Other care home (current) drug t herapy Araceli Kline.OLm 04/02/2020 Z79.82 supervisor intermediates (current) use of aspir in Temitope Murillo D.O. 04/02/2020 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, thoracic joshua on Araceli Kline.O. 04/02/2020 Z88.1 Allergy status to other antibiot ic agents Araceli Kline.O. 04/02/2020 D64.9 Anemia, unspecified Temitope KieranAraceli Garcia.O. 04/02/2020 M25.552 Pain in left hip Araceli Weaver.O. 01/15/2020 Z48.02 Encounter for removal of sutures CAIT Romero Plan of Treatment Future Appointment(s):* 09/30/2020 2:20 pm - CAIT Kearns at [facility] 07/03/2020 - CAIT Kearns* E03.9 Hypothyroidism, unspecified* Comments: * Your thyroid is currently replaced. Continue your current medication at its current dose. * F31.9 Bipolar disorder, unspecified* New Labs:* Gibsonia Level, Scheduled: 09/30/20 * Comments:* Continue with the recommendations of psychiatry. * E55.9 Vitamin D deficiency, unspecified* Comments:* For the time being, continue your current supplementation. You are currently appropriately replaced. * M54.17 Radiculopathy, lumbosacral region* Comments:* Appears stable. Continue with the recommendations of physical therapy. * R25.1 Tremor, unspecified* Comments:* Continue with the recommendations of neurology. * E83.42 Hypomagnesemia* New Labs:* Magnesium Level, Scheduled: 09/30/20 * Comments:* For the time being, we will change the formulation of your magnesium, and hopefully you will be able to swallow that better. We will check your level before you return. * Follow up:* 3 months with dc for Medicare wellness visit. Functional Status Description No Information Available Mental Status Description No Information Available Referrals Refer to Reason for Referral Status Appt Date [facility] 79 year old fema le with chronic left hip pain. Please eval and treat. Closed [address] [place] [address] [phone]
--- OUTSIDE RECORDS SUMMARY | 2020-07-11 06:48 | CCD | Continuity of Care Document ---
Author Author Rachel RODRIGUES Organization Unknown Address [address] [place] [address] 6 [address] [place] [address] Phone [phone] Care Team Providers Care Belt Puncher Name Role Phone Temitope Murillo D.O. AUTM [phone] Chapincito Hardy MD AUTM [phone] [facility] AUTM [phone] Jose Benton MD AUTM [phone] [facility] AUTM [phone] [facility] AUTM Beth Morgan M.D. AUTM [phone] Problems Active Problems Provider Date Moderate recurrent [...] day 180tabs Brooklyn KlineOLm 02/2021 Ergocalciferol 1.25mg (67131 Ut) C apsules take 1 weekly until [...] Mouth Every Day 90tabs Brooklyn KlineOLm 11/21/2018 Wortham Carbonate 150mg Capsules 1 cap by mouth [...] Tablet By Mouth Twice A Day Unknown Wortham Carbonate 300mg Capsules Take One Capsule By [...] F O2 % BldC Oximetry 97 % [place] Body Weight 100 lb 05/14/2020 8:57am BP Systolic 144 mmHg BP Diastolic 68 mmHg Height 59.6 inches 4'11.60" Weight 153.00 lb BMI (Body Mass Index) 30.3 kg/m2 Heart Rate 96 /min Respiratory Rate 18 /min Body Temperature 98.3 F O2 % BldC Oximetry 99 % [place] Body Weight 100 lb Results Test Acquired Date Facility Test Result H/L Range Note Comprehensive Metabolic Profil 06/28/2020 [place] [id number] [phone] Glucose, Fasting 97 mg/dL Normal 70-100 Blood [...] 1.1 Low 1.2-2.2 CBC With Differential 06/28/[address] [address] [phone] White Blood Count 8.5 10 Normal 4.0-10.0 [...] 36.0-66.0 Lymph % 28.9 % Normal 24.0-44.0 [place] % 9.4 % High 0.0-5.0 Eos % 4.3 % High 0.0-3.0 Baso % 0.8 % Normal 0.0-1.0 Immature Granulocyte % 0.2 % Normal 0-3.0 Nucleated Red Blood Cell % 0.0 % Normal 0-0 Neutrophils # 4.8 10 Normal 1.5-8.5 Lymph # 2.5 10 Normal 1.5-5.0 [place] # 0.8 10 Normal 0.0-0.8 Eos # 0.4 10 Normal 0.0-0.5 Baso # 0.1 10 Normal 0.0-0.2 FT4&TSH Panel 06/28/2020 [facility] ce nter [address] [place] [address] [phone] Thyroid Stimulating Hormone 0.831 uIU/ML Normal 0. 358-3.740 Free T4 0.93 ng/dL Normal 0.76-1.46 Total Iron Binding Capacit 06/28/[address] [address] [phone] Iron (Fe) 101 g/dL Normal 50-170 Total Iron Binding Capacity 332 g/dL Normal 250-450 Percent Saturation 30.4 % Normal 13.2-45.0 Laboratory test finding 06/28/2020 [facility] [address] [place] [address] [phone] Vitamin B12 Level 575 pg/mL Normal 247-911 2 Total 25(Oh) Vitamin D 49.4 NG/ML Normal 30.0-100.0 Ferritin 96 NG/ML Normal 8-252 Ua Routine 05/08/2020 [facility] Outpatient Testi ng (Registration) [address] [place] [address] [phone] Appearance, Urine CLEAR Normal Clear Color, Urine STRAW Normal Yellow PH,Urine 7.0 units Normal 5.0-9.0 Specific [place] Urine Auto 1.003 Normal 1.002-1.035 Protein, Urine [...] /LPF Normal 0-1 Laboratory test finding 05/08/2020 [facility] Outpatient T esting (Registration) [address] [place] [address] [phone] Urine Culture FULL REPORT IN L <SEE NOTE> Normal 3 Laboratory test finding 05/07/2020 [facility] Outpatient T esting (Registration) [address] [place] [address] [phone] Urine Culture <pending> Laboratory test finding 05/07/2020 [facility] Outpatient T esting (Registration) [address] [place] [address] [phone] Wortham Level 0.61 mEq/L Normal 0.60-1.20 Vitamin B12 & Folate 05/07/2020 [facility] Outpatient Test ing (Registration) [address] [place], [place] [address] [phone] Vitamin B12 Level 671 pg/mL Normal 4 Folate > 24.0 NG/ML Normal 5 FT4&TSH Panel 05/07/2020 [facility] Outpatient Testi ng (Registration) [address] [id number] [phone] Thyroid Stimulating Hormone 1.040 uIU/ML Normal 0. 358-3.740 Free T4 1.02 ng/dL Normal 0.76-1.46 Laboratory test finding 05/02/2020 [facility] Outpatient T esting (Registration) [address] [place] [address] [phone] Ferritin 72 NG/ML Normal 8-252 Serum Protein Electrophoresis 05/02/2020 [facility] Outpat ient Testing (Registration) [address] [place] [address] [phone] Albumin % 56.7 % Normal 55.8-66.1 Fmrlv-6-Yhuyngyt % 5.1 % High 2.9-4.9 Wshor-8-Rzhndprau % 12.7 % High 7.1-11.8 Gnpd-5-Wmfmgsoll % 7.3 % High 4.7-7.2 Rtic-4-Rxlogvdgv % 7.2 % High 3.2-6.5 Gamma Globulin % 11.0 % Low 11.1-18.8 Albumin 4.08 GM/DL Normal 3.29-5.55 Raift-0-Nbymyvlkd 0.37 GM/DL Normal 0.17-0.41 Epsap-6-Dltefkicc 0.91 GM/DL Normal 0.42-0.99 Gdim-6-Ytvfjmlep 0.53 GM/DL Normal 0.28-0.60 Llzi-9-Kyjqijjys 0.52 GM/DL Normal 0.19-0.55 Gamma Globulins 0.79 GM/DL Normal 0.65-1.58 Total Protein 7.2 GM/DL Normal 6.4-8.2 Spep Interpretation SEE COMMENT Normal 6 Spep Pathologist Review REV'D BY O ADJAP <SEE NOTE> Normal 7 Immunotyping (Immunofixation) Serum (If 05/02/2020 [facility] Outpatient Testing (Registration) [address] [place] [address] [phone] It Serum Interpretation SEE COMMENT Normal 8 Its Pathologist Review REV'D BY O ADJAP <SEE NOTE> Normal 9 Total Iron Binding Capacit 05/02/2020 [facility] Outpatien t Testing (Registration) [address] [place], [place] [address] [phone] Iron (Fe) 106 g/dL Normal 50-170 Total Iron Binding Capacity 376 g/dL Normal 250-450 Percent Saturation 28.2 % Normal 13.2-45.0 Laboratory test finding 05/02/2020 [facility] Outpatient T esting (Registration) [address] [place], [place] [address] [phone] LDH Lactate Dehydrogenase 210 U/L Normal 84-246 Comprehensive Metabolic Profil 05/02/2020 [facility] Outpa tient Testing (Registration) [address] [place] [address] [phone] Glucose, Fasting 75 mg/dL Normal 70-100 Blood [...] 1.1 Low 1.2-2.2 Laboratory test finding 05/02/2020 [facility] Outpatient T esting (Registration) [address] [place], [place] 4736555 [phone] Haptoglobin 194 mg/dL Normal 42-346 11 Direct Ruth 05/02/2020 [facility] Outpatient Testi ng (Registration) [address] [place] [address] [phone] [place]ero Result Calc NEGATIVE Normal Retic (Reticulocyte Count) 05/02/2020 [facility] Outpatien t Testing (Registration) [address] [place], [place] 7710480 [phone] Reticulocyte % 1.2 % Normal 0.5-1.5 Reticulocyte # 46.5 10 Normal 17-77 Retic Hemoglobin Equivalent 35.5 pg Normal 24-36 CBC With Differential 05/02/2020 [facility] Outpatient Nirali ting (Registration) [address] [place] [address] [phone] White Blood Count 9.5 10 Normal 4.0-10.0 [...] 36.0-66.0 Lymph % 25.2 % Normal 24.0-44.0 [place] % 10.0 % High 0.0-5.0 Eos % 3.7 % High 0.0-3.0 Baso % 1.0 % Normal 0.0-1.0 Immature Granulocyte % 0.3 % Normal 0-3.0 Nucleated Red Blood Cell % 0.0 % Normal 0-0 Neutrophils # 5.7 10 Normal 1.5-8.5 Lymph # 2.4 10 Normal 1.5-5.0 [place] # 1.0 10 High 0.0-0.8 Eos # 0.4 10 Normal 0.0-0.5 Baso # 0.1 10 Normal 0.0-0.2 CBC With Differential 02/27/2020 [facility] Outpatient Nirali ting (Registration) [address] [place] [address] [phone] White Blood Count 8.8 10 Normal 4.0-10.0 [...] 36.0-66.0 Lymph % 28.9 % Normal 24.0-44.0 [place] % 10.9 % High 0.0-5.0 Eos % 2.8 % Normal 0.0-3.0 Baso % 1.1 % High 0.0-1.0 Immature Granulocyte % 0.2 % Normal 0-3.0 Nucleated Red Blood Cell % 0.0 % Normal 0-0 Neutrophils # 4.9 10 Normal 1.5-8.5 Lymph # 2.5 10 Normal 1.5-5.0 [place] # 1.0 10 High 0.0-0.8 Eos # 0.3 10 Normal 0.0-0.5 Baso # 0.1 10 Normal 0.0-0.2 Comprehensive Metabolic Profil 02/27/2020 [facility] Outpa tient Testing (Registration) [address] [place] [address] [phone] Glucose, Fasting 86 mg/dL Normal 70-100 Blood [...] 1.1 Low 1.2-2.2 Laboratory test finding 02/27/2020 [facility] Outpatient T madyson (Registration) [address] [place], [place] 5950[address] [phone] Magnesium Level 2.9 mg/dL High 1.8-2.4 13 [...] Little GFR Left ESRD GFR <15 on FOOD OPERATIONS MANAGER 2 VITAMIN B12 NORMAL RANGE NORMAL 247 [...] Little GFR Left ESRD GFR <15 on FOOD OPERATIONS MANAGER 11 Performed at: RN - [facility] [address] [id number] Pharmacy Informatics Specialist: Geovanna Stroud MD, Phone: [phone] Units are mL/min/1.73 m2 Chronic Kidney Disease Staging per NKF: Stage I & II GFR >=60 Normal to Mildly Decreased Stage III GFR 30-59 Moderately Decreased Stage IV GFR 15-29 Severely Decreased Stage V GFR <15 Very Little GFR Left ESRD GFR <15 on FOOD OPERATIONS MANAGER 13 FAX TO [phone] FAX TO [phone] FAX TO [phone] FAX TO [phone] 15 FAX TO [phone] FAX TO [phone] Procedures Description No Information Available Medical Devices Description No Information Available Encounters Type Date Location Provider Dx Diagnosis Office Visit 07/03/2020 9:20a [facility] CAIT Kearns E03.9 Hypothyroidism, unspecified F31.9 Bipolar disorder, unspecifie d E55.9 Vitamin D deficiency, unspec ified M54.17 Radiculopathy, lumbosacral r egion R25.1 Tremor, unspecified E83.42 Hypomagnesemia Office Visit 05/14/2020 8:40a [facility] CAIT Kearns R53.1 Weakness R25.1 Tremor, unspecified R60.9 Edema, unspecified R32 Unspecified urinary incontin ence M54.5 Low back pain M25.552 Pain in left hip Office Visit 05/07/2020 3:20p [facility] CAIT Kearns M54.5 Low back pain R53.1 Weakness R25.1 Tremor, unspecified R60.9 Edema, unspecified R32 Unspecified urinary incontin ence M25.552 Pain in left hip Office Visit 04/02/2020 8:20a [facility] Temitope Murillo D.O. 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, thoracic region Z88.1 Allergy status to other anti biotic agents D64.9 Anemia, unspecified M25.552 Pain in left hip Office Visit 01/15/2020 3:40p [facility] CAIT Romero Z48.02 Encounter for removal of sut ures Assessments Date Code Description Provider 07/03/2020 E03.9 Hypothyroidism, unspecified CAIT Contreras 07/03/2020 F31.9 Bipolar disorder, unspecified [facility] Araceli Rodrigues, PA 07/03/2020 E55.9 Vitamin D deficiency, unspecifie d Kirk D Ravi, PA 07/03/2020 M54.17 Radiculopathy, lumbosacral regio n Kirk Charles Ravi, PA 07/03/2020 R25.1 Tremor, unspecified Kirk D Tie rnan, PA 07/03/2020 E83.42 Hypomagnesemia Kirk Charles Ravi , PA 05/14/2020 R53.1 Weakness Kirk D Ravi , PA 05/14/2020 R25.1 Tremor, unspecified Kirk D Tie rnan, PA 05/14/2020 R60.9 Edema, unspecified Kirk D Leonarda niño, PA 05/14/2020 R32 Unspecified urinary incontinence Kirk Charles Ravi, PA 05/14/2020 M54.5 Low back pain Kirk Charles Ravi , PA 05/14/2020 M25.552 Pain in left hip Kirk Charles Leonardana n, PA 05/07/2020 M54.5 Low back pain Kirk D Ravi , PA 05/07/2020 R53.1 Weakness Kirk Charles Ravi , PA 05/07/2020 R25.1 Tremor, unspecified Kirk D Tie rnan, PA 05/07/2020 R60.9 Edema, unspecified Kirk D Tier nan, PA 05/07/2020 R32 Unspecified urinary incontinence Kirk Charles Ravi, PA 05/07/2020 M25.552 Pain in left hip Kirk Charles Anmol n, PA 04/02/2020 E03.9 Hypothyroidism, unspecified Temitope Murillo, D.O. 04/02/2020 F31.9 Bipolar disorder, unspecified James Murillo, D.O. 04/02/2020 E55.9 Vitamin D deficiency, unspecifie d Temitope Murillo, D.O. 04/02/2020 M54.17 Radiculopathy, lumbosacral regio n Temitope Murillo, D.O. 04/02/2020 I12.9 Hypertensive chronic kidney disease with stage 1 through stage 4 chronic kidney disease, or unspecified chronic kidney disease Temitope Contreras, D.O. 04/02/2020 Z88.2 Allergy status to sulfonamides Maged AlcarazBrooklyn DarlingO. 04/02/2020 Z79.899 Other long-term (current) drug t herapy Temitope AlcarazAraceli Darling.O. 04/02/2020 Z79.82 rat exterminator (current) use of aspir in Temitopemarbin AlcarazRogerAraceli Darling.O. 04/02/2020 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, thoracic joshua on Temitope AlcarazAraceli Darling.O. 04/02/2020 Z88.1 Allergy status to other antibiot ic agents Araceli Kline.O. 04/02/2020 D64.9 Anemia, unspecified Temitope FalkBrooklyn AlmaguerO. 04/02/2020 M25.552 Pain in left hip Temitopemarbin AlcarazRogerBrooklyn JonesO. 01/15/2020 Z48.02 Encounter for removal of sutures CAIT Romero Plan of Treatment Future Appointment(s):* 09/30/2020 2:20 pm - CAIT Kearns at [facility] 07/03/2020 - CAIT Kearns* E03.9 Hypothyroidism, unspecified* Comments: * Your thyroid is currently replaced. Continue your current medication at its current dose. * F31.9 Bipolar disorder, unspecified* New Labs:* [place] Level, Scheduled: 09/30/20 * Comments:* Continue with [...] return. * Follow up:* 3 months with vt for Medicare wellness visit. Functional Status Description No Information Available Mental Status Description No Information Available Referrals Refer to Reason for Referral Status Appt Date [facility] 79 year old fema le with chronic left hip pain. Please eval and treat. Closed [address] [place] [address] [phone]
--- OUTSIDE RECORDS SUMMARY | 2020-07-11 06:48 | CCD ---
Continuity of Care Document (CCD) Created on: 07/04/2020 Rachel Puga External Reference #: [id number] : [id number] Sex: Female Author Author Rachel TANNER Organization Unknown Address [address] [address] Phone [phone] Care Team Providers Care Hydraulic Barker Operator Name Role Phone Kirk Rodrigues AUTM [phone] Temitope Murillo DO AUTM Problems Description No Information Available Social History Type Date Description Comments Sex Unknown Allergies, Adverse Reactions, Alerts Description No Information Available Medications Description No Information Available Immunizations Description No Information Available Vital Signs Description No Information Available Results Description No Information Available Procedures Date Code Description Status 06/24/2020 11883 Nerve Conduction 11-12 Studies C ompleted 06/24/2020 45870 Needle Electromyography Complete , Five Or More Muscles Studied Completed 06/24/2020 31219 Needle Electromyography Complete , Five Or More Muscles Studied Completed Medical Devices Description No Information Available Encounters Type Date Location Provider Dx Diagnosis Office Visit 06/18/2020 2:30p Main office - [place] Emily Scruggs M.D. M54.5 Low back pain [...] Scruggs M.D. Plan of Treatment Future Appointment(s):* 07/05/2020 11:30 am - [facility] at [facility] * 07/31/2020 12:00 pm - Beth Morgan M.D. at [facility] Functional Status Description No Information Available Mental Status Description No Information Available Referrals Description No Information Available
--- OUTSIDE RECORDS SUMMARY | 2020-07-11 06:48 | CCD | Continuity of Care Document ---
Author Author Rachel TANNER Organization Unknown Address [address] [address] Phone [phone] Care Team Providers Care Machine Feeder Raw Stock Name Role Phone Kirk Rodrigues AUTM [phone] Temitope Murillo DO AUTM Problems Description No Information Available Social History Type Date Description Comments Sex Unknown Allergies, Adverse Reactions, Alerts Description No Information Available Medications Description No Information Available Immunizations Description No Information Available Vital Signs Description No Information Available Results Description No Information Available Procedures Date Code Description Status 07/05/2020 32577 Sympathetic Skin Responses Compl eted 07/05/2020 57340 Test Autonomic Nervous System, C ardiovagal Innervation Completed 07/05/2020 36469 Artery Study Extremity Mult Leve ls Bilateral Completed 07/04/2020 81493 EEG Recording Awake & Asleep Com pleted 07/04/2020 63898 EEG Recording Awake & Asleep Com pleted 06/24/2020 91563 Nerve Conduction 11-12 Studies C ompleted 06/24/2020 65180 Needle Electromyography Complete , Five Or More Muscles Studied Completed 06/24/2020 03961 Needle Electromyography Complete , Five Or More Muscles Studied Completed Medical Devices Description No Information Available Encounters Type Date Location Provider Dx Diagnosis Office Visit 06/18/2020 2:30p Main office - [place] Scruggs M.D. 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 07/04/2020 R25.8 Other abnormal involuntary movem ents EEG 06/24/2020 M54.89 Other dorsalgia Beth Morgan M.D. 06/24/2020 M62.9 Disorder of muscle, unspecified Beth Morgan M.D. 06/18/2020 M54.5 Low back pain Lydia Sandoval 06/18/2020 G20 Parkinson's disease Emily Scruggs M.D. 06/18/2020 M62.9 Disorder of muscle, unspecified Emily Scruggs M.D. Plan of Treatment Future Appointment(s):* 07/26/2020 10:00 am - Beth Morgan M.D. at Main office - [place] Functional Status Description No Information Available Mental Status Description No Information Available Referrals Description No Information Available
--- OUTSIDE RECORDS SUMMARY | 2020-07-11 06:48 | CCD | Continuity of Care Document ---
Author Author Rachel MURILLO D.O. Organization Unknown Address [email or web address] [place] [address] Phone [phone] Care Team Providers Care Olive Packer Name Role Phone Temitope Murillo D.O. AUTM Chapincito Hardy MD AUTM [phone] [facility] AUTM [phone] Jose Benton MD AUTM [phone] [facility] AUTM [phone] [facility] AUTM Beth Morgan M.D. AUTM [phone] Problems Active Problems Provider Date Moderate recurrent [...] Use Denies Drug Use Smoking Status Reviewed: 05/14/20 Patient has never smoked Exercise Type/Frequency Gym 2 times a week Sun Exposure Uses sunscreen Seat Belt/Car Seat Always uses seat belt Allergies, Adverse Reactions, Alerts Active Allergies Reaction Severity Comments Date Sulfa Antibiotics Hives 06/02/2018 Bee Sting Hives 06/02/2018 Doxycycline 12/27/2019 Medications Active Medications SIG Qnty Indications Ordering Provide r Date Ergocalciferol 1.25mg (92039 Ut) C apsules take 1 weekly until gone. 12caps Temitope Murillo D.O. 05/14/2020 Shingrix 50mcg/0.5ML Suspension Re c inject subcutaneous times one 1units Diana Kline 02/26/2020 Physical Therapy Right leg and Balance/Posture 2-3 times a week for 6 weeks M79.604 Brooklyn KlineOLm 07/31/2019 R53.1 Jean Claude Back Support [facility] 1 as directed Dx: thoracic kyphosis. M40.04 Temitope Murillo D.O. Furosemide 40mg Tablets 1 by mouth every day as needed for swelling. 90tabs R60.9 Temitope Murillo D.O. 01/02/2019 Finger Splint Small Misc Finger splint of right littler finger of DIP with finger in full extension. stax- finger splint 1units M20.011 Temitope Murillo D.O. 12/23/2018 Amlodipine Besylate 10mg Tablets Take One Tablet By Mouth Every Day 90tabs Temitope Murillo D.O. 11/21/2018 Amphetamine-Dextroamphetamine 10mg Tablets one tablet by mouth daily istop [id number] Unknown Mart Carbonate 150mg Capsules 1 cap by mouth in the morning Unknown Latuda 40mg Tablets take one tablet by mouth daily. Unknown Aspir-[address] 1 by mouth every day Unknown Magnesium 500mg Tablets take 1 tablet by mouth at bedtime Unknown B Complete Tablets 1 tablet by mouth per day Unknown Levothyroxine Sodium 50mcg Tablets take one tablet by mouth once a day in the morning on an empty stomach 90tabs [place] KlineOLm Viibryd 40mg Tablets Take One Tablet By Mouth Once A Day With Food Unknown Lamotrigine 100mg Tablets Take One Tablet By Mouth Twice A Day Unknown Mart Carbonate 300mg Capsules Take One Capsule By Mouth in the evening Unknown History Medications Tetanus/Diphtheria Toxoids-Adsorbed Adul t 2-2LF/0.5ML Suspension administer tetanus without pertussis at Pharmacy. 5ml Temitope Murillo D.O. 01/15/2020 - 01/15/2020 Tdap Vaccine administer tetanus diptheria and Pertussis Vaccine at pharmacy, Im injection. 1units Temitope Murillo D.O. 01/14 - 01/15/2020 Immunizations Description No Information Available Vital Signs Date Vital Result Comment 05/14/2020 8:57am BP Systolic 144 mmHg BP Diastolic 68 mmHg Height 59.6 inches 4'11.60" Weight 153.00 lb BMI (Body Mass Index) 30.3 kg/m2 Heart Rate 96 /min Respiratory Rate 18 /min Body Temperature 98.3 F O2 % BldC Oximetry 99 % [place] Body Weight 100 lb 05/07/2020 3:27pm BP Systolic 124 mmHg BP Diastolic 72 mmHg Height 59.6 inches 4'11.60" Heart Rate 88 /min Respiratory Rate 18 /min Body Temperature 98.3 F O2 % BldC Oximetry 97 % [place] Body Weight 100 lb Results Test Acquired Date Facility Test Result H/L Range Note Comprehensive Metabolic Profil 06/28/2020 [place] [id number] [phone] Glucose, Fasting 97 mg/dL Normal 70-100 Blood [...] 1.1 Low 1.2-2.2 CBC With Differential 06/28/[address] [address] [phone] White Blood Count 8.5 10 Normal 4.0-10.0 [...] 36.0-66.0 Lymph % 28.9 % Normal 24.0-44.0 [place] % 9.4 % High 0.0-5.0 Eos % 4.3 % High 0.0-3.0 Baso % 0.8 % Normal 0.0-1.0 Immature Granulocyte % 0.2 % Normal 0-3.0 Nucleated Red Blood Cell % 0.0 % Normal 0-0 Neutrophils # 4.8 10 Normal 1.5-8.5 Lymph # 2.5 10 Normal 1.5-5.0 [place] # 0.8 10 Normal 0.0-0.8 Eos # 0.4 10 Normal 0.0-0.5 Baso # 0.1 10 Normal 0.0-0.2 FT4&TSH Panel 06/28/2020 [facility] [address] [place] [address] [phone] Thyroid Stimulating Hormone 0.831 uIU/ML Normal 0. 358-3.740 Free T4 0.93 ng/dL Normal 0.76-1.46 Total Iron Binding Capacit 06/28/[address] [address] [phone] Iron (Fe) 101 g/dL Normal 50-170 Total Iron Binding Capacity 332 g/dL Normal 250-450 Percent Saturation 30.4 % Normal 13.2-45.0 Laboratory test finding 06/28/2020 [facility] [address] [place] [address] [phone] Vitamin B12 Level 575 pg/mL Normal 247-911 2 Total 25(Oh) Vitamin D 49.4 NG/ML Normal 30.0-100.0 Ferritin 96 NG/ML Normal 8-252 Ua Routine 05/08/2020 [facility] Outpatient Testi ng (Registration) [address] [place] [address] [phone] Appearance, Urine CLEAR Normal Clear Color, Urine STRAW Normal Yellow PH,Urine 7.0 units Normal 5.0-9.0 Specific [place] Urine Auto 1.003 Normal 1.002-1.035 Protein, Urine [...] /LPF Normal 0-1 Laboratory test finding 05/08/2020 [facility] Outpatient T esting (Registration) [address] [place] [address] [phone] Urine Culture FULL REPORT IN L <SEE NOTE> Normal 3 Laboratory test finding 05/07/2020 [facility] Outpatient T esting (Registration) [address] [place] [address] [phone] Urine Culture <pending> Laboratory test finding 05/07/2020 [facility] Outpatient T esting (Registration) [address] [place] [address] [phone] Mart Level 0.61 mEq/L Normal 0.60-1.20 Vitamin B12 & Folate 05/07/2020 [facility] Outpatient Test ing (Registration) [address] [place] [address] [phone] Vitamin B12 Level 671 pg/mL Normal 4 Folate > 24.0 NG/ML Normal 5 FT4&TSH Panel 05/07/2020 [facility] Outpatient Testi ng (Registration) [address] [place] [address] [phone] Thyroid Stimulating Hormone 1.040 uIU/ML Normal 0. 358-3.740 Free T4 1.02 ng/dL Normal 0.76-1.46 Laboratory test finding 05/02/2020 [facility] Outpatient T esting (Registration) [address] [place] [address] [phone] Ferritin 72 NG/ML Normal 8-252 Serum Protein Electrophoresis 05/02/2020 [facility] Outpat ient Testing (Registration) [address] [place] [address] [phone] Albumin % 56.7 % Normal 55.8-66.1 Tfbqi-4-Pmhlinbz % 5.1 % High 2.9-4.9 Qxuwe-8-Dqmdtzcbw % 12.7 % High 7.1-11.8 Cvar-4-Bzczkkryx % 7.3 % High 4.7-7.2 Vtct-7-Piyjpodef % 7.2 % High 3.2-6.5 Gamma Globulin % 11.0 % Low 11.1-18.8 Albumin 4.08 GM/DL Normal 3.29-5.55 Fmrlp-5-Sfdwfccgf 0.37 GM/DL Normal 0.17-0.41 Yplqk-3-Qunvcmfwc 0.91 GM/DL Normal 0.42-0.99 Umwm-7-Okrszonne 0.53 GM/DL Normal 0.28-0.60 Fifu-4-Ypjopxgcz 0.52 GM/DL Normal 0.19-0.55 Gamma Globulins 0.79 GM/DL Normal 0.65-1.58 Total Protein 7.2 GM/DL Normal 6.4-8.2 Spep Interpretation SEE COMMENT Normal 6 Spep Pathologist Review REV'D BY O ADJAP <SEE NOTE> Normal 7 Immunotyping (Immunofixation) Serum (If 05/02/2020 [facility] Outpatient Testing (Registration) [address] [place] [address] [phone] It Serum Interpretation SEE COMMENT Normal 8 Its Pathologist Review REV'D BY O ADJAP <SEE NOTE> Normal 9 Total Iron Binding Capacit 05/02/2020 [facility] Outpatien t Testing (Registration) [address] [place] [id number] [phone] Iron (Fe) 106 g/dL Normal 50-170 Total Iron Binding Capacity 376 g/dL Normal 250-450 Percent Saturation 28.2 % Normal 13.2-45.0 Laboratory test finding 05/02/2020 [facility] Outpatient T esting (Registration) [address] [place] [phone] LDH Lactate Dehydrogenase 210 U/L Normal 84-246 Comprehensive Metabolic Profil 05/02/2020 [facility] Outpa tient Testing (Registration) [address] [place] [address] [phone] Glucose, Fasting 75 mg/dL Normal 70-100 Blood [...] 1.1 Low 1.2-2.2 Laboratory test finding 05/02/2020 [facility] Outpatient T esting (Registration) [address] [place] [address] [phone] Haptoglobin 194 mg/dL Normal 42-346 11 Direct Ruth 05/02/2020 [facility] Outpatient Testi ng (Registration) [address] [place] 4171014 [phone] Wero Result Calc NEGATIVE Normal Retic (Reticulocyte Count) 05/02/2020 [facility] Outpatien t Testing (Registration) [address] [place] 4171097 [phone] Reticulocyte % 1.2 % Normal 0.5-1.5 Reticulocyte # 46.5 10 Normal 17-77 Retic Hemoglobin Equivalent 35.5 pg Normal 24-36 CBC With Differential 05/02/2020 [facility] Outpatient Nirali ting (Registration) [address] [place] [address] [phone] White Blood Count 9.5 10 Normal 4.0-10.0 [...] 36.0-66.0 Lymph % 25.2 % Normal 24.0-44.0 [place] % 10.0 % High 0.0-5.0 Eos % 3.7 % High 0.0-3.0 Baso % 1.0 % Normal 0.0-1.0 Immature Granulocyte % 0.3 % Normal 0-3.0 Nucleated Red Blood Cell % 0.0 % Normal 0-0 Neutrophils # 5.7 10 Normal 1.5-8.5 Lymph # 2.4 10 Normal 1.5-5.0 [place] # 1.0 10 High 0.0-0.8 Eos # 0.4 10 Normal 0.0-0.5 Baso # 0.1 10 Normal 0.0-0.2 CBC With Differential 02/27/2020 [facility] Outpatient Nirali ting (Registration) [address] [place] [address] [phone] White Blood Count 8.8 10 Normal 4.0-10.0 [...] 36.0-66.0 Lymph % 28.9 % Normal 24.0-44.0 [place] % 10.9 % High 0.0-5.0 Eos % 2.8 % Normal 0.0-3.0 Baso % 1.1 % High 0.0-1.0 Immature Granulocyte % 0.2 % Normal 0-3.0 Nucleated Red Blood Cell % 0.0 % Normal 0-0 Neutrophils # 4.9 10 Normal 1.5-8.5 Lymph # 2.5 10 Normal 1.5-5.0 [place] # 1.0 10 High 0.0-0.8 Eos # 0.3 10 Normal 0.0-0.5 Baso # 0.1 10 Normal 0.0-0.2 Comprehensive Metabolic Profil 02/27/2020 [facility] Outpa tient Testing (Registration) [address] [place] [address] [phone] Glucose, Fasting 86 mg/dL Normal 70-100 Blood [...] 1.1 Low 1.2-2.2 Laboratory test finding 02/27/2020 [facility] Outpatient T esting (Registration) [address] [place] [address] [phone] Magnesium Level 2.9 mg/dL High 1.8-2.4 13 [...] Little GFR Left ESRD GFR <15 on FARM EQUIPMENT ENGINE MECHANIC 2 VITAMIN B12 NORMAL RANGE NORMAL 247 [...] 6 NO M-SPIKE(S)NOTED. 7 REV'D BY O ADJAPONG 8 NO MONOCLONAL BANDS NOTED. 9 REV'D BY O ADJAPONG 10 Units are mL/min/1.73 m2 Chronic Kidney Disease Staging per NKF: Stage I & II GFR >=60 Normal to Mildly Decreased Stage III GFR 30-59 Moderately Decreased Stage IV GFR 15-29 Severely Decreased Stage V GFR <15 Very Little GFR Left ESRD GFR <15 on FARM EQUIPMENT ENGINE MECHANIC 11 Performed at: RN - [facility] [address] [id number] Diamond Blender: Geovanna Stroud MD, Phone: [phone] Units are mL/min/1.73 m2 Chronic Kidney Disease Staging per NKF: Stage I & II GFR >=60 Normal to Mildly Decreased Stage III GFR 30-59 Moderately Decreased Stage IV GFR 15-29 Severely Decreased Stage V GFR <15 Very Little GFR Left ESRD GFR <15 on FARM EQUIPMENT ENGINE MECHANIC 13 FAX TO [phone] FAX TO [phone] FAX TO [phone] FAX TO [phone] 15 FAX TO [phone] FAX TO [phone] Procedures Description No Information Available Medical Devices Description No Information Available Encounters Type Date Location Provider Dx Diagnosis Office Visit 05/14/2020 8:40a [facility] CAIT Kearns R53.1 Weakness R25.1 Tremor, unspecified R60.9 Edema, unspecified R32 Unspecified urinary incontin ence M54.5 Low back pain M25.552 Pain in left hip Office Visit 05/07/2020 3:20p [facility] CAIT Kearns M54.5 Low back pain R53.1 Weakness R25.1 Tremor, unspecified R60.9 Edema, unspecified R32 Unspecified urinary incontin ence M25.552 Pain in left hip Office Visit 04/02/2020 8:20a [facility] Temitope Murillo D.O. 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, thoracic region Z88.1 Allergy status to other anti biotic agents D64.9 Anemia, unspecified M25.552 Pain in left hip Office Visit 01/15/2020 3:40p [facility] CAIT Romero Z48.02 Encounter for removal of sut ures Assessments Date Code Description Provider 05/14/2020 R53.1 Weakness CAIT Kearns 05/14/2020 R25.1 Tremor, unspecified CAIT Nichols 05/14/2020 R60.9 Edema, unspecified CAIT Curiel 05/14/2020 R32 Unspecified urinary incontinence CAIT [place] 05/14/2020 M54.5 Low back pain CAIT Kearns 05/14/2020 M25.552 Pain in left hip CAIT Finn 05/07/2020 M54.5 Low back pain Kirk Rodrigues PA 05/07/2020 R53.1 Weakness Kirk D Ravi , PA 05/07/2020 R25.1 Tremor, unspecified Kirk D Elda lewis, PA 05/07/2020 R60.9 Edema, unspecified Kirk D Leonarda niño, PA 05/07/2020 R32 Unspecified urinary incontinence Kirk D Ravi, PA 05/07/2020 M25.552 Pain in left hip Kirk pa, PA 04/02/2020 E03.9 Hypothyroidism, unspecified Temitope Murillo, D.O. 04/02/2020 F31.9 Bipolar disorder, unspecified James Murillo, D.O. 04/02/2020 E55.9 Vitamin D deficiency, unspecifie d Temitope Murillo, D.O. 04/02/2020 M54.17 Radiculopathy, lumbosacral regio n Temitope Murillo D.O. 04/02/2020 I12.9 Hypertensive chronic kidney disease with stage 1 through stage 4 chronic kidney disease, or unspecified chronic kidney disease Temitope Contreras D.O. 04/02/2020 Z88.2 Allergy status to sulfonamides Maged Murillo D.O. 04/02/2020 Z79.899 Other intermediate frame tender (current) drug t herapy Temitope Murillo D.O. 04/02/2020 Z79.82 buttermaker helper (current) use of aspir in Temitope Murillo D.O. 04/02/2020 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, thoracic joshua on Temitope Murillo, D.O. 04/02/2020 Z88.1 Allergy status to other antibiot ic agents Temitope Murillo D.O. 04/02/2020 D64.9 Anemia, unspecified Temitope Crowley, D.O. 04/02/2020 M25.552 Pain in left hip Temitope martinez D.O. 01/15/2020 Z48.02 Encounter for removal of sutures CAIT Romero Plan of Treatment Future Appointment(s):* 07/03/2020 9:20 am - CAIT Kearns at [facility] 05/14/2020 - CAIT Kearns* R53.1 Weakness* Comments:* Improved compared with last time. * Follow up:* As already scheduled. * R25.1 Tremor, unspecified* Comments:* Let me know if you would like to be referred to neurology for further evaluation. * R60.9 Edema, unspecified * R32 Unspecified urinary incontinence * M54.5 Low back pain* Comments:* Improved. * M25.552 Pain in left hip* Comments:* We will refer you to physical therapy for further evaluation. * Referral:* [facility], Functional Status Description No Information Available Mental Status Description No Information Available Referrals Refer to Reason for Referral Status Appt Date [facility] 79 year old fema le with chronic left hip pain. Please eval and treat. Closed [address] [place] [address] [phone]
--- OUTSIDE RECORDS SUMMARY | 2020-07-11 06:49 | CCD | Continuity of Care Document ---
Author Author Rachel MATTHEWS M.D. Organization Unknown Address [address] [place] [address] Phone [phone] Care Team Providers Care Offshoring Manager Name Role Phone Kirk Rodrigues AUTM [phone] Temitope Murillo DO AUTM Problems Description No Information Available Social History Type Date Description Comments Sex Unknown Allergies, Adverse Reactions, Alerts Description No Information Available Medications Description No Information Available Immunizations Description No Information Available Vital Signs Description No Information Available Results Description No Information Available Procedures Description No Information Available Medical Devices Description No Information Available Encounters Description No Information Available Assessments Description No Information Available Plan of Treatment Future Appointment(s):* 07/31/2020 12:00 pm - Beth Morgan M.D. at [facility] * 06/24/2020 12:40 pm - Beth Morgan M.D. at [facility] * 07/05/2020 1:30 pm - Ans/VS at [facility] * 07/04/2020 11:15 am - EEG at [facility] Functional Status Description No Information Available Mental Status Description No Information Available Referrals Description No Information Available
--- OUTSIDE RECORDS SUMMARY | 2020-07-11 06:49 | CCD | Continuity of Care Document ---
Author Author Rachel MORGAN M.D. Organization Unknown Address [address] [place] [address] Phone [phone] Care Team Providers Care Fruit Coordinator Name Role Phone Kirk Rodrigues AUTM [phone] Chidi Temitopemarbin CHAMPION AUTM Problems Description No Information Available Social [...] Provider Dx Diagnosis Office Visit 06/18/2020 2:30p [facility] Emily Scruggs M.D. M54.5 Low back pain G20 Parkinson's disease M62.9 Disorder of muscle, unspecif ied Assessments Date Code Description Provider 06/18/2020 M54.5 Low back pain Lydia Sandoval 06/18/2020 G20 Parkinson's disease Emily Scruggs M.D. 06/18/2020 M62.9 Disorder of muscle, unspecified Emily Scruggs M.D. Plan of Treatment Future Appointment(s):* 07/31/2020 12:00 pm - Beth Morgan M.D. at [facility] * 07/05/2020 1:30 pm - Ans/VS at [facility] * 07/04/2020 11:15 am - EEG at [facility] Functional Status Description No Information Available Mental Status Description No Information Available Referrals Description No Information Available
--- OUTSIDE RECORDS SUMMARY | 2020-07-11 06:49 | CCD | Continuity of Care Document ---
Author Author Rachel RAY Organization Unknown Address [id number] [place] [address] 6 [address] [place] [address] Phone [phone] Care Team Providers Care Supervisor [employer] Name Role Phone Temitope Murillo D.O. AUTM [phone] Chapincito Hardy MD AUTM [phone] [facility] AUTM [phone] Jose Benton MD AUTM [phone] [facility] AUTM [phone] [facility] Program AUTM [phone] Problems Active Problems Provider Date Moderate recurrent [...] Indications Ordering Provide r Date Ergocalciferol 1.25mg (21432 Ut) C apsules take 1 weekly until [...] Murillo D.O. 12/23/2018 Amlodipine Besylate 10mg Tablets take one tablet by mouth every day 90tabs [place] KlineOLm 11/21/2018 Amphetamine-Dextroamphetamine 10mg Tablets one tablet by mouth daily istop [id number] Unknown Pisinemo Carbonate 150mg Capsules 1 cap by mouth [...] Tablet By Mouth Twice A Day Unknown Pisinemo Carbonate 300mg Capsules Take One Capsule By [...] F O2 % BldC Oximetry 99 % [place] Body Weight 100 lb 05/07/2020 3:27pm BP Systolic 124 mmHg BP Diastolic 72 mmHg Height 59.6 inches 4'11.60" Heart Rate 88 /min Respiratory Rate 18 /min Body Temperature 98.3 F O2 % BldC Oximetry 97 % [place] Body Weight 100 lb Results Test Acquired Date Facility Test Result H/L Range Note Ua Routine 05/08/2020 [facility] Outpatient Testi ng (Registration) [address] [place] [address] [phone] Appearance, Urine CLEAR Normal Clear Color, Urine STRAW Normal Yellow PH,Urine 7.0 units Normal 5.0-9.0 Specific [place] Urine Auto 1.003 Normal 1.002-1.035 Protein, Urine [...] /LPF Normal 0-1 Laboratory test finding 05/08/2020 [facility] Outpatient T esting (Registration) [address] [place] [address] [phone] Urine Culture FULL REPORT IN L <SEE NOTE> Normal 1 FT4&TSH Panel 05/07/2020 [facility] Outpatient Testi ng (Registration) [address] [place] [address] [phone] Thyroid Stimulating Hormone 1.040 uIU/ML Normal 0. 358-3.740 Free T4 1.02 ng/dL Normal 0.76-1.46 Vitamin B12 & Folate 05/07/2020 [facility] Outpatient Test ing (Registration) [address] [place] [address] [phone] Vitamin B12 Level 671 pg/mL Normal 2 Folate > 24.0 NG/ML Normal 3 Laboratory test finding 05/07/2020 [facility] Outpatient T esting (Registration) [address] [place] [address] [phone] Pisinemo Level 0.61 mEq/L Normal 0.60-1.20 Laboratory test finding 05/07/2020 [facility] Outpatient T esting (Registration) [address] [place] [address] [phone] Urine Culture <pending> Laboratory test finding 05/02/2020 [facility] Outpatient T esting (Registration) [address] [place] [address] [phone] Ferritin 72 NG/ML Normal 8-252 Serum Protein Electrophoresis 05/02/2020 [facility] Outpat ient Testing (Registration) [address] [place] [address] [phone] Albumin % 56.7 % Normal 55.8-66.1 Kctsl-3-Isscebmb % 5.1 % High 2.9-4.9 Aibjq-7-Nyfekvdwx % 12.7 % High 7.1-11.8 Dagu-5-Aswyhvxmi % 7.3 % High 4.7-7.2 Oslt-6-Jlxjcvhpb % 7.2 % High 3.2-6.5 Gamma Globulin % 11.0 % Low 11.1-18.8 Albumin 4.08 GM/DL Normal 3.29-5.55 Yxfbt-8-Psatyphmt 0.37 GM/DL Normal 0.17-0.41 Plqmg-0-Wxfeumjtc 0.91 GM/DL Normal 0.42-0.99 Ykzg-2-Dbecqgdwl 0.53 GM/DL Normal 0.28-0.60 Fykf-9-Ambteaota 0.52 GM/DL Normal 0.19-0.55 Gamma Globulins 0.79 GM/DL Normal 0.65-1.58 Total Protein 7.2 GM/DL Normal 6.4-8.2 Spep Interpretation SEE COMMENT Normal 4 Spep Pathologist Review REV'D BY Efrem JOHNSON <SEE NOTE> Normal 5 Immunotyping (Immunofixation) Serum (If 05/02/2020 [facility] Outpatient Testing (Registration) [address] [place] [address] [phone] It Serum Interpretation SEE COMMENT Normal 6 Its Pathologist Review REV'D BY O ADJAP <SEE NOTE> Normal 7 Total Iron Binding Capacit 05/02/2020 [facility] Outpatien t Testing (Registration) [address] [place] [address] [phone] Iron (Fe) 106 g/dL Normal 50-170 Total Iron Binding Capacity 376 g/dL Normal 250-450 Percent Saturation 28.2 % Normal 13.2-45.0 Laboratory test finding 05/02/2020 [facility] Outpatient T esting (Registration) [address] [place] [address] [phone] LDH Lactate Dehydrogenase 210 U/L Normal 84-246 Comprehensive Metabolic Profil 05/02/2020 [facility] Outpa tient Testing (Registration) [address] [place] [address] [phone] Glucose, Fasting 75 mg/dL Normal 70-100 Blood Urea Nitrogen 14 mg/dL Normal 7-18 Creatinine For GFR 1.11 mg/dL Normal 0.55-1.30 Glomerular Filtration Rate 50.6 Normal >39 8 Sodium Level 142 mEq/L Normal 136-145 Potassium [...] 1.1 Low 1.2-2.2 Laboratory test finding 05/02/2020 [facility] Outpatient T esting (Registration) [address] [place] [address] [phone] Haptoglobin 194 mg/dL Normal 42-346 9 Direct Ruth 05/02/2020 [facility] Outpatient Testi ng (Registration) [address] [place], [place] [address] [phone] Wreo Result Calc NEGATIVE Normal Retic (Reticulocyte Count) 05/02/2020 [facility] Outpatien t Testing (Registration) [address] [place] [address] [phone] Reticulocyte % 1.2 % Normal 0.5-1.5 Reticulocyte # 46.5 10 Normal 17-77 Retic Hemoglobin Equivalent 35.5 pg Normal 24-36 CBC With Differential 05/02/2020 [facility] Outpatient Nirali ting (Registration) [address] [place] [address] [phone] White Blood Count 9.5 10 Normal 4.0-10.0 [...] 36.0-66.0 Lymph % 25.2 % Normal 24.0-44.0 Ferry % 10.0 % High 0.0-5.0 Eos % 3.7 % High 0.0-3.0 Baso % 1.0 % Normal 0.0-1.0 Immature Granulocyte % 0.3 % Normal 0-3.0 Nucleated Red Blood Cell % 0.0 % Normal 0-0 Neutrophils # 5.7 10 Normal 1.5-8.5 Lymph # 2.4 10 Normal 1.5-5.0 Ferry # 1.0 10 High 0.0-0.8 Eos # 0.4 10 Normal 0.0-0.5 Baso # 0.1 10 Normal 0.0-0.2 CBC With Differential 02/27/2020 [facility] Outpatient Nirali ting (Registration) [address] [place] [address] [phone] White Blood Count 8.8 10 Normal 4.0-10.0 [...] 36.0-66.0 Lymph % 28.9 % Normal 24.0-44.0 Ferry % 10.9 % High 0.0-5.0 Eos % 2.8 % Normal 0.0-3.0 Baso % 1.1 % High 0.0-1.0 Immature Granulocyte % 0.2 % Normal 0-3.0 Nucleated Red Blood Cell % 0.0 % Normal 0-0 Neutrophils # 4.9 10 Normal 1.5-8.5 Lymph # 2.5 10 Normal 1.5-5.0 Ferry # 1.0 10 High 0.0-0.8 Eos # 0.3 10 Normal 0.0-0.5 Baso # 0.1 10 Normal 0.0-0.2 Comprehensive Metabolic Profil 02/27/2020 [facility] Outpa tient Testing (Registration) [address] [place] [address] [phone] Glucose, Fasting 86 mg/dL Normal 70-100 Blood Urea Nitrogen 15 mg/dL Normal 7-18 Creatinine For GFR 1.05 mg/dL Normal 0.55-1.30 Glomerular Filtration Rate 54.0 Normal >39 1 0 Sodium Level 144 mEq/L Normal 136-145 Potassium [...] 1.1 Low 1.2-2.2 Laboratory test finding 02/27/2020 [facility] Outpatient T esting (Registration) [address] [place] [address] [phone] Magnesium Level 2.9 mg/dL High 1.8-2.4 11 NT-Pro BNP 140 pg/mL Normal <450 12 Thyroid Stimulating Hormone 1.080 uIU/ML Normal 0.358-3.740 13 CBC With Differential 12/21/2019 [facility] Outpatient Nirali negro (Registration) [address] [place] [address] [phone] White Blood Count 8.5 10 Normal 4.0-10.0 Red Blood Count 3.63 10 Low 4.00-5.40 Hemoglobin 11.2 g/dL Low 12.0-15.5 Hematocrit 35.9 % Low 36.0-47.0 Mean Corpuscular Volume 98.9 fl High 80.0-96.0 Mean Corpuscular Hemoglobin 30.9 pg Normal 27.0-33.0 Mean Corpuscular HGB Conc 31.2 g/dL Low 32.0-36.5 Red Cell Distribution Width 12.7 % Normal 11.5-14.5 Platelet Count, Automated 326 10 Normal 150-450 Neutrophils % 48.1 % Normal 36.0-66.0 Lymph % 38.6 % Normal 24.0-44.0 Ferry % 10.2 % High 0.0-5.0 Eos % 2.0 % Normal 0.0-3.0 Baso % 0.9 % Normal 0.0-1.0 Immature Granulocyte % 0.2 % Normal 0-3.0 Nucleated Red Blood Cell % 0.0 % Normal 0-0 Neutrophils # 4.1 10 Normal 1.5-8.5 Lymph # 3.3 10 Normal 1.5-5.0 Ferry # 0.9 10 High 0.0-0.8 Eos # 0.2 10 Normal 0.0-0.5 Baso # 0.1 10 Normal 0.0-0.2 Comprehensive Metabolic Profil 12/21/2019 [facility] Outpa tient Testing (Registration) [address] [place] [address] [phone] Glucose, Fasting 95 mg/dL Normal 70-100 Blood Urea Nitrogen 25 mg/dL High 7-18 Creatinine For GFR 1.42 mg/dL High 0.55-1.30 Glomerular Filtration Rate 38.1 Low >39 1 4 Sodium Level 143 mEq/L Normal 136-145 Potassium Serum 3.5 mEq/L Normal 3.5-5.1 Chloride Level 107 mEq/L Normal 98-107 Carbon Dioxide Level 30 mEq/L Normal 21-32 Anion Gap 6 mEq/L Low 8-16 Calcium Level 9.0 mg/dL Normal 8.8-10.2 Ast/Sgot 16 U/L Normal 7-37 Alt/SGPT 24 U/L Normal 12-78 Alkaline Phosphatase 72 U/L Normal 45-117 Bilirubin,Total 0.3 mg/dL Normal 0.2-1.0 Total Protein 6.9 GM/DL Normal 6.4-8.2 Albumin 3.6 GM/DL Normal 3.2-5.2 Albumin/Globulin Ratio 1.1 Low 1.2-2.2 FT4&TSH Panel 12/21/2019 [facility] Outpatient Testi ng (Registration) [address] [place] [address] [phone] Thyroid Stimulating Hormone 2.740 uIU/ML Normal 0. 358-3.740 Free T4 1.03 ng/dL Normal 0.76-1.46 Laboratory test finding 12/21/2019 [facility] Outpatient T esting (Registration) [address] [place] [address] [phone] Total 25(Oh) Vitamin D 59.2 NG/ML Normal 30.0-100. 0 1 FULL REPORT IN LAB NOTES (eC W and [facility]). NO GROWTH 2 VITAMIN B12 NORMAL RANGE NORMAL 247 - 911 PG/ML INDETERMINATE 211 - 246 PG/ML DEFICIENT LESS THAN 211 PG/ML 3 FOLATE NORMAL RANGE NORMAL GREATER THAN 5.4 NG/ML INDETERMINATE 3.4-5.4 NG/ML DEFICIENT LESS THAN 3.4 NG/ML 4 NO M-SPIKE(S)NOTED. 5 REV'D BY Efrem LEMOS 6 NO MONOCLONAL BANDS NOTED. 7 REV'D BY Efrem LEMOS 8 Units are mL/min/1.73 m2 Chronic Kidney Disease Staging per NKF: Stage I & II GFR >=60 Normal to Mildly Decreased Stage III GFR 30-59 Moderately Decreased Stage IV GFR 15-29 Severely Decreased Stage V GFR <15 Very Little GFR Left ESRD GFR <15 on TRANSFER OPERATOR 9 Performed at: RN - [facility] [address] [id number] [employer] Operator Helper: Geovanna Stroud MD, Phone: [phone] Units are mL/min/1.73 m2 Chronic Kidney Disease Staging per NKF: Stage I & II GFR >=60 Normal to Mildly Decreased Stage III GFR 30-59 Moderately Decreased Stage IV GFR 15-29 Severely Decreased Stage V GFR <15 Very Little GFR Left ESRD GFR <15 on TRANSFER OPERATOR 11 FAX TO [phone] FAX TO [phone] 12 FAX TO [phone] FAX TO [phone] FAX TO [phone] FAX TO [phone] Units are mL/min/1.73 m2 Chronic Kidney Disease Staging per NKF: Stage I & II GFR >=60 Normal to Mildly Decreased Stage III GFR 30-59 Moderately Decreased Stage IV GFR 15-29 Severely Decreased Stage V GFR <15 Very Little GFR Left ESRD GFR <15 on TRANSFER OPERATOR Procedures Description No Information Available Medical Devices Description No Information Available Encounters Type Date Location Provider Dx Diagnosis Office Visit 05/14/2020 8:40a [facility] CAIT Reid R53.1 Weakness R25.1 Tremor, unspecified R60.9 Edema, unspecified R32 Unspecified urinary incontin ence M54.5 Low back pain M25.552 Pain in left hip Office Visit 05/07/2020 3:20p [facility] CAIT Reid M54.5 Low back pain R53.1 Weakness R25.1 Tremor, unspecified R60.9 Edema, unspecified R32 Unspecified urinary incontin ence M25.552 Pain in left hip Office Visit 04/02/2020 8:20a [facility] Temitope Murillo D.OLm E03.9 Hypothyroidism, unspecified F31.9 Bipolar disorder, unspecifie d E55.9 Vitamin D deficiency, unspec ified M54.17 Radiculopathy, lumbosacral r egion I12.9 Hypertensive chronic kidney disease w stg 1-4/unsp chr kdny Z88.2 Allergy status to sulfonamid es Z79.899 Other assisted (current) dr wu therapy Z79.82 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 (current) use of a spirin 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, thoracic region Z88.1 Allergy status to other anti biotic agents D64.9 Anemia, unspecified M25.552 Pain in left hip Office Visit 01/15/2020 3:40p [facility] CAIT Romero Z48.02 Encounter for removal of sut ures Office Visit 12/27/2019 8:00a [facility] CAIT Kearns R29.6 Repeated falls E03.9 Hypothyroidism, unspecified I10 Essential (primary) hyperten gary F31.9 Bipolar disorder, unspecifie d E55.9 Vitamin D deficiency, unspec ified Office Visit 12/15/2019 2:00p [facility] CAIT Kearns S00.83xA Contusion of other part of h ead, initial encounter Y92.22 [facility] R29.6 Repeated falls Office Visit 12/05/2019 9:20a [facility] Araceli Kline.OLm C44.311 Basal cell carcinoma of skin of nose Assessments Date Code Description Provider 05/14/2020 R53.1 Weakness CAIT Kearns 05/14/2020 R25.1 Tremor, unspecified CAIT Nichols 05/14/2020 R60.9 Edema, unspecified CAIT Curiel 05/14/2020 R32 Unspecified urinary incontinence CAIT Kearns 05/14/2020 M54.5 Low back pain CAIT Kearns 05/14/2020 M25.552 Pain in left hip Kirk Corea n, PA 05/07/2020 M54.5 Low back pain Kirk D Ravi , PA 05/07/2020 R53.1 Weakness Kirk D Ravi , PA 05/07/2020 R25.1 Tremor, unspecified Kirk Charles Elda lewis, PA 05/07/2020 R60.9 Edema, unspecified Kirk D Leonarda niño, PA 05/07/2020 R32 Unspecified urinary incontinence Kirk D Ravi, PA 05/07/2020 M25.552 Pain in left hip Kirk D Anmol pa, PA 04/02/2020 E03.9 Hypothyroidism, unspecified Temitope [...] sulfonamides Maged Murillo D.O. 04/02/2020 Z79.899 Other rn long term care (current) drug t herapy Temitope Murillo D.O. 04/02/2020 Z79.82 halfway (current) use of aspir in Temitope Murillo D.O. 04/02/2020 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, thoracic joshua on Temitope Murillo D.O. 04/02/2020 Z88.1 Allergy status to other antibiot ic agents Temitope Murillo D.O. 04/02/2020 D64.9 Anemia, unspecified Temitope Crowley D.O. 04/02/2020 M25.552 Pain in left hip Temitope martinez D.O. 01/15/2020 Z48.02 Encounter for removal of sutures CAIT Romero 12/27/2019 R29.6 Repeated falls CAIT Kearns 12/27/2019 E03.9 Hypothyroidism, unspecified CAIT Contreras 12/27/2019 I10 Essential (primary) hypertension CAIT [place] 12/27/2019 F31.9 Bipolar disorder, unspecified CAIT Marrero 12/27/2019 E55.9 Vitamin D deficiency, unspecifie d CAIT [place] 12/15/2019 S00.83xA Contusion of other part of head, initial encounter [facility] [place] 12/15/2019 Y92.22 [facility] the external cause CAIT [place] 12/15/2019 R29.6 Repeated falls CAIT Kearns 12/05/2019 C44.311 Basal cell carcinoma of skin of nose Temitope Murillo D.O. Plan of Treatment Future Appointment(s):* 07/03/2020 9:20 am - CAIT Kearns at [facility] 05/14/2020 - CAIT Kearns* R53.1 Weakness* [...] left hip pain. Please eval and treat. Created [address] [place] [address] [phone] [facility] 79 year old fema le with frequent falls, who is amenable to starting to use a cane. Please eval and treat. Sent [address] [place] [address] [phone] Jose Benton MD 79 year old female with recu rrent falls, with concern being raised for a cardiogenic cause. Please eval and treat. Sent [address] [place] [address] [phone]
--- OUTSIDE RECORDS SUMMARY | 2020-07-11 06:49 | CCD | Continuity of Care Document ---
Author Author Rachel RAY Organization Unknown Address [address] [place] [address] 6 [address] [place] [address] Phone [phone] Care Team Providers Care Manufacturing Engineering Director Name Role Phone Temitope Murillo D.O. AUTM Chapincito Hardy MD AUTM [phone] [facility] AUTM [phone] Jose Benton MD AUTM [phone] [facility] AUTM [phone] [facility] Program AUTM [phone] Problems Active Problems Provider Date Moderate recurrent [...] Use Denies Drug Use Smoking Status Reviewed: 05/08/20 Patient has never smoked Exercise Type/Frequency Gym 2 times a week Sun Exposure Uses sunscreen Seat Belt/Car Seat Always uses seat belt Allergies, Adverse Reactions, Alerts Active Allergies Reaction Severity Comments Date Sulfa Antibiotics Hives 06/02/2018 Bee Sting Hives 06/02/2018 Doxycycline 12/27/2019 Medications Active Medications SIG Qnty Indications Ordering Provide r Date Ergocalciferol 1.25mg (23359 Ut) C apsules take 1 weekly until gone. 12caps Brooklyn KlineOLm 05/14/2020 Shingrix 50mcg/0.5ML Suspension Re c inject subcutaneous times one 1units Brooklyn KlineO Lm 02/26/2020 Physical Therapy Right leg and Balance/Posture 2-3 times a week for 6 weeks M79.604 rBooklyn KlineOLm 07/31/2019 R53.1 Jean Claude Back Support [...] Tablets one tablet by mouth daily istop [id number] Unknown Louisa Carbonate 150mg Capsules 1 cap by mouth [...] Tablet By Mouth Twice A Day Unknown Louisa Carbonate 300mg Capsules Take One Capsule By [...] F O2 % BldC Oximetry 99 % [place] Body Weight 100 lb 05/07/2020 3:27pm BP Systolic 124 mmHg BP Diastolic 72 mmHg Height 59.6 inches 4'11.60" Heart Rate 88 /min Respiratory Rate 18 /min Body Temperature 98.3 F O2 % BldC Oximetry 97 % [place] Body Weight 100 lb Results Test Acquired Date Facility Test Result H/L Range Note Ua Routine 05/08/2020 [facility] Outpatient Testi ng (Registration) [address] [place] [address] [phone] Appearance, Urine CLEAR Normal Clear Color, Urine STRAW Normal Yellow PH,Urine 7.0 units Normal 5.0-9.0 Specific Shelley Urine Auto 1.003 Normal 1.002-1.035 Protein, Urine [...] /LPF Normal 0-1 Laboratory test finding 05/08/2020 [facility] Outpatient T esting (Registration) [address] [place] [address] [phone] Urine Culture FULL REPORT IN L <SEE NOTE> Normal 1 FT4&TSH Panel 05/07/2020 [facility] Outpatient Testi ng (Registration) [address] [place] [address] [phone] Thyroid Stimulating Hormone 1.040 uIU/ML Normal 0. 358-3.740 Free T4 1.02 ng/dL Normal 0.76-1.46 Vitamin B12 & Folate 05/07/2020 [facility] Outpatient Test ing (Registration) [address] [place] [address] [phone] Vitamin B12 Level 671 pg/mL Normal 2 Folate > 24.0 NG/ML Normal 3 Laboratory test finding 05/07/2020 [facility] Outpatient T esting (Registration) [address] [place] [address] [phone] Louisa Level 0.61 mEq/L Normal 0.60-1.20 Laboratory test finding 05/07/2020 [facility] Outpatient T esting (Registration) [address] [place] [address] [phone] Urine Culture <pending> Laboratory test finding 05/02/2020 [facility] Outpatient T esting (Registration) [address] [place] [address] [phone] Ferritin 72 NG/ML Normal 8-252 Serum Protein Electrophoresis 05/02/2020 [facility] Outpat ient Testing (Registration) [address] [place] [address] [phone] Albumin % 56.7 % Normal 55.8-66.1 Cvopz-2-Zitkvuoe % 5.1 % High 2.9-4.9 Dmqwz-7-Gztguxdda % 12.7 % High 7.1-11.8 Nbok-2-Zdmtizgxj % 7.3 % High 4.7-7.2 Azyu-9-Dxupsvebi % 7.2 % High 3.2-6.5 Gamma Globulin % 11.0 % Low 11.1-18.8 Albumin 4.08 GM/DL Normal 3.29-5.55 Oocxa-6-Igjoepvgm 0.37 GM/DL Normal 0.17-0.41 Iwwqc-2-Bmylzurth 0.91 GM/DL Normal 0.42-0.99 Wgrm-9-Ewmgudiah 0.53 GM/DL Normal 0.28-0.60 Effi-4-Qgteydlca 0.52 GM/DL Normal 0.19-0.55 Gamma Globulins 0.79 GM/DL Normal 0.65-1.58 Total Protein 7.2 GM/DL Normal 6.4-8.2 Spep Interpretation SEE COMMENT Normal 4 Spep Pathologist Review REV'D BY Efrem JOHNSON <SEE NOTE> Normal 5 Immunotyping (Immunofixation) Serum (If 05/02/2020 [facility] Outpatient Testing (Registration) [address] [place] [address] [phone] It Serum Interpretation SEE COMMENT Normal 6 Its Pathologist Review REV'D BY O ADJAP <SEE NOTE> Normal 7 Total Iron Binding Capacit 05/02/2020 [facility] Outpatien t Testing (Registration) [address] [place] [address] [phone] Iron (Fe) 106 g/dL Normal 50-170 Total Iron Binding Capacity 376 g/dL Normal 250-450 Percent Saturation 28.2 % Normal 13.2-45.0 Laboratory test finding 05/02/2020 [facility] Outpatient T esting (Registration) [address] [place] [address] [phone] LDH Lactate Dehydrogenase 210 U/L Normal 84-246 Comprehensive Metabolic Profil 05/02/2020 [facility] Outpa tient Testing (Registration) [address] [place] [address] [phone] Glucose, Fasting 75 mg/dL Normal 70-100 Blood [...] 1.1 Low 1.2-2.2 Laboratory test finding 05/02/2020 [facility] Outpatient T esting (Registration) [address] [place] [address] [phone] Haptoglobin 194 mg/dL Normal 42-346 9 Direct Ruth 05/02/2020 [facility] Outpatient Testi ng (Registration) [address] [place], [place] [address] [phone] Wero Result Calc NEGATIVE Normal Retic (Reticulocyte Count) 05/02/2020 [facility] Outpatien t Testing (Registration) [address] [place] [address] [phone] Reticulocyte % 1.2 % Normal 0.5-1.5 Reticulocyte # 46.5 10 Normal 17-77 Retic Hemoglobin Equivalent 35.5 pg Normal 24-36 CBC With Differential 05/02/2020 [facility] Outpatient Nirali ting (Registration) [address] [place] [address] [phone] White Blood Count 9.5 10 Normal 4.0-10.0 [...] 36.0-66.0 Lymph % 25.2 % Normal 24.0-44.0 [place] % 10.0 % High 0.0-5.0 Eos % 3.7 % High 0.0-3.0 Baso % 1.0 % Normal 0.0-1.0 Immature Granulocyte % 0.3 % Normal 0-3.0 Nucleated Red Blood Cell % 0.0 % Normal 0-0 Neutrophils # 5.7 10 Normal 1.5-8.5 Lymph # 2.4 10 Normal 1.5-5.0 [place] # 1.0 10 High 0.0-0.8 Eos # 0.4 10 Normal 0.0-0.5 Baso # 0.1 10 Normal 0.0-0.2 CBC With Differential 02/27/2020 [facility] Outpatient Nirali ting (Registration) [address] [place] [address] [phone] White Blood Count 8.8 10 Normal 4.0-10.0 [...] 36.0-66.0 Lymph % 28.9 % Normal 24.0-44.0 [place] % 10.9 % High 0.0-5.0 Eos % 2.8 % Normal 0.0-3.0 Baso % 1.1 % High 0.0-1.0 Immature Granulocyte % 0.2 % Normal 0-3.0 Nucleated Red Blood Cell % 0.0 % Normal 0-0 Neutrophils # 4.9 10 Normal 1.5-8.5 Lymph # 2.5 10 Normal 1.5-5.0 [place] # 1.0 10 High 0.0-0.8 Eos # 0.3 10 Normal 0.0-0.5 Baso # 0.1 10 Normal 0.0-0.2 Comprehensive Metabolic Profil 02/27/2020 [facility] Outpa tient Testing (Registration) [address] [place] [address] [phone] Glucose, Fasting 86 mg/dL Normal 70-100 Blood [...] 1.1 Low 1.2-2.2 Laboratory test finding 02/27/2020 [facility] Outpatient T esting (Registration) [address] [place] [address] [phone] Magnesium Level 2.9 mg/dL High 1.8-2.4 11 NT-Pro BNP 140 pg/mL Normal <450 12 Thyroid Stimulating Hormone 1.080 uIU/ML Normal 0.358-3.740 13 CBC With Differential 12/21/2019 [facility] Outpatient Nirali negro (Registration) [address] [place] [address] [phone] White Blood Count 8.5 10 Normal 4.0-10.0 [...] 36.0-66.0 Lymph % 38.6 % Normal 24.0-44.0 [place] % 10.2 % High 0.0-5.0 Eos % 2.0 % Normal 0.0-3.0 Baso % 0.9 % Normal 0.0-1.0 Immature Granulocyte % 0.2 % Normal 0-3.0 Nucleated Red Blood Cell % 0.0 % Normal 0-0 Neutrophils # 4.1 10 Normal 1.5-8.5 Lymph # 3.3 10 Normal 1.5-5.0 [place] # 0.9 10 High 0.0-0.8 Eos # 0.2 10 Normal 0.0-0.5 Baso # 0.1 10 Normal 0.0-0.2 Comprehensive Metabolic Profil 12/21/2019 [facility] Outpa tient Testing (Registration) [address] [place] [address] [phone] Glucose, Fasting 95 mg/dL Normal 70-100 Blood [...] Ratio 1.1 Low 1.2-2.2 FT4&TSH Panel 12/21/2019 [facility] Outpatient Testi ng (Registration) [address] [place] [address] [phone] Thyroid Stimulating Hormone 2.740 uIU/ML Normal 0. 358-3.740 Free T4 1.03 ng/dL Normal 0.76-1.46 Laboratory test finding 12/21/2019 [facility] Outpatient T esting (Registration) [address] [place] [address] [phone] Total 25(Oh) Vitamin D 59.2 NG/ML Normal [...] Little GFR Left ESRD GFR <15 on TIE IN MACHINE OPERATOR 9 Performed at: RN - [facility] [address] [id number] Chain Maker Machine: Geovanna Stroud MD, Phone: [phone] Units are mL/min/1.73 m2 Chronic Kidney Disease Staging per NKF: Stage I & II GFR >=60 Normal to Mildly Decreased Stage III GFR 30-59 Moderately Decreased Stage IV GFR 15-29 Severely Decreased Stage V GFR <15 Very Little GFR Left ESRD GFR <15 on TIE IN MACHINE OPERATOR 11 FAX TO [phone] FAX TO [phone] FAX TO [phone] FAX TO [phone] FAX TO [phone] FAX TO [phone] Units are mL/min/1.73 m2 Chronic Kidney Disease Staging per NKF: Stage I & II GFR >=60 Normal to Mildly Decreased Stage III GFR 30-59 Moderately Decreased Stage IV GFR 15-29 Severely Decreased Stage V GFR <15 Very Little GFR Left ESRD GFR <15 on TIE IN MACHINE OPERATOR Procedures Description No Information Available Medical Devices Description No Information Available Encounters Type Date Location Provider Dx Diagnosis Office Visit 05/07/2020 3:20p [facility] CAIT Kearns M54.5 Low back pain R53.1 Weakness R25.1 Tremor, unspecified R60.9 Edema, unspecified R32 Unspecified urinary incontin ence M25.552 Pain in left hip Office Visit 04/02/2020 8:20a [facility] Temitope Murillo D.O. 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, thoracic region Z88.1 Allergy status to other anti biotic agents D64.9 Anemia, unspecified M25.552 Pain in left hip Office Visit 01/15/2020 3:40p [facility] CAIT Romero Z48.02 Encounter for removal of sut ures Office Visit 12/27/2019 8:00a [facility] CAIT Kearns R29.6 Repeated falls E03.9 Hypothyroidism, unspecified I10 Essential (primary) hyperten gary F31.9 Bipolar disorder, unspecifie d E55.9 Vitamin D deficiency, unspec ified Office Visit 12/15/2019 2:00p [facility] CAIT Kearns S00.83xA Contusion of other part of h ead, initial encounter Y92.22 [facility] R29.6 Repeated falls Office Visit 12/05/2019 9:20a [facility] Temitope Murillo D.O. C44.311 Basal cell carcinoma of skin of nose Assessments Date Code Description Provider 05/14/2020 R53.1 Weakness CAIT Kearns 05/14/2020 R25.1 Tremor, unspecified CAIT Nichols 05/14/2020 R60.9 Edema, unspecified CAIT Curiel 05/14/2020 R32 Unspecified urinary incontinence CAIT Kearns 05/14/2020 M54.5 Low back pain CAIT Kearns 05/14/2020 M25.552 Pain in left hip CAIT Finn 05/07/2020 M54.5 Low back pain CAIT Kearns 05/07/2020 R53.1 Weakness CAIT Kearns 05/07/2020 R25.1 Tremor, unspecified CAIT Nichols 05/07/2020 R60.9 Edema, unspecified CAIT Curiel 05/07/2020 R32 Unspecified urinary incontinence CAIT Kearns 05/07/2020 M25.552 Pain in left hip CAIT Finn 04/02/2020 E03.9 Hypothyroidism, unspecified Temitope Murillo, D.O. [...] sulfonamides Maged Murillo D.O. 04/02/2020 Z79.899 Other termite exterminator helper (current) drug t herapy Temitope Murillo D.O. 04/02/2020 Z79.82 termite treater (current) use of aspir in Temitope Murillo, D.O. 04/02/2020 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, thoracic joshua on Temitope Murillo, D.O. 04/02/2020 Z88.1 Allergy status to other antibiot ic agents Temitope Murillo, D.O. 04/02/2020 D64.9 Anemia, unspecified Temitope [place], D.O. 04/02/2020 M25.552 Pain in left hip Temitope martinez D.O. 01/15/2020 Z48.02 Encounter for removal of sutures CAIT Romero 12/27/2019 R29.6 Repeated falls CAIT Kearns 12/27/2019 E03.9 Hypothyroidism, unspecified CAIT Contreras 12/27/2019 I10 Essential (primary) hypertension CAIT Kearns 12/27/2019 F31.9 Bipolar disorder, unspecified [facility] CAIT Mahajan 12/27/2019 E55.9 Vitamin D deficiency, unspecifie d CAIT Kearns 12/15/2019 S00.83xA Contusion of other part of head, initial encounter CAIT Kearns 12/15/2019 Y92.22 [facility] occurrence of the external cause CAIT Kearns 12/15/2019 R29.6 Repeated falls CAIT Kearns 12/05/2019 C44.311 Basal cell carcinoma of skin of nose Temitope Murillo D.O. Plan of Treatment Future Appointment(s):* 07/03/2020 9:20 am - CAIT Kearns at [facility] 05/14/2020 - CAIT Kearns* R53.1 Weakness* Comments:* Improved compared with last time. * Follow up:* As already scheduled. * R25.1 Tremor, unspecified* Comments:* Let me know if you would like to be referred to neurology for further evaluation. * R60.9 Edema, unspecified * R32 Unspecified urinary incontinence * M54.5 Low back pain * M25.552 Pain in left hip* Comments:* We will refer you to physical therapy for further evaluation. * Referral:* [facility], Functional Status Description No Information Available Mental Status Description No Information Available Referrals Refer to Reason for Referral Status Appt Date [facility] 79 year old fema le with chronic left hip pain. Please eval and treat. Created [address] [place] [address] [phone] [facility] 79 year old fema le with frequent falls, who is amenable to starting to use a cane. Please eval and treat. Sent [address] [place] [address] [phone] Jose Benton MD 79 year old female with recu rrent falls, with concern being raised for a cardiogenic cause. Please eval and treat. Sent [address] [place] [address] [phone]
--- OUTSIDE RECORDS SUMMARY | 2020-07-11 06:49 | CCD ---
Author Author [facility] acuse Organization [facility] acuse Address Unknown Phone Unavailable Care Team Providers Care Silk Screen Operator Name Role Phone ELIAZAR COLVIN Unavailable PROBLEMS Type Condition ICD9-CM Code SKL85-BP Code Onset Dates Condition S tatus SNOMED Code Notes Problem Essential (primary) hypertension I10 Active [id number] Blood pressure is well-controlled today on amlodipine Problem Chronic kidney disease, stage 3 (moderate) N18.3 Active [id number] Renal function has returned to her baseline. She's had some increased depression. Again I have no problem with her lithium dose being increased back up to 600 mg total in a day, but I would check her renal function at least every 3 or 4 months if we do not. She should avoid nonsteroidals. If she develops vomiting or diarrhea, she needs to be seen immediately as she will be quite prone to becoming dehydrated as she has a degree of nephrogenic diabetes insipidus. ALLERGIES Allergen (clinical drug ingredient) Drug/Non Drug Allergy do cumented on EMR Reaction Allergy Type Onset Date Status Bee stings Unknown Non Drug Allergy Active Sulfa Unknown Drug Allergy Active ENCOUNTERS from 1940 to 2020-06-11 Encounter Location Date Provider Diagnosis .[facility] [address] [facility] [address] [place], [place] [id number] May, ELIAZAR COLVIN IMMUNIZATIONS Vaccine Route Administration Date Status Influenza (split) Unknown Jun 04, 2016 Administered Pneumococcal Unknown Jun 04, 2016 Administered SOCIAL HISTORY Tobacco Use: Social History Observation Description Date Details (start date - stop date) Never Smoker Sex Assigned At : Social History Observation Description Sex Assigned At Unknown Smoking Question Answer Notes Status: never smoker Pt states that she h as never smoked REASON FOR REFERRAL No Information VITAL SIGNS No information MEDICATIONS Medication SIG (Take, Route, Frequency, Duration) Notes Start Da te End Date Status Latuda 60 MG 1 tablet Orally Once a day Active Fish Oil 1000 MG 1 capsule Orally Once a day Not-Taking Adderall 30 MG 1 tablet in the morning Orally Once a day Active Vitamin B Complex - Orally Activ e Vitamin D 2000 UNIT 1 tablet Orally Once a day Not-Taking Aspirin 81 MG 1 tablet Orally Once a day Active Vitamin D (Ergocalciferol) 1.25 MG (07417 UT) 1 capsule Orally weekly Active Osteo Bi-Flex Regular Strength 250-200 MG 1 tablet wit h a meal Orally Once a day for 30 day(s) Active Amlodipine Besylate 5 MG 1 tablet Orally Once a day for 90 days Feb, Active Viibryd 40 MG 1 tablet with food Orally Once a day Active Furosemide 40 MG 1 tablet Orally Once a day prn Active Levothyroxine Sodium 50 MCG 1 tablet on an empty stoma ch in the morning Orally Once a day Active [place] Carbonate 300 MG 1 capsule pm Orally plus 150 mg am Active Turmeric 500 MG Orally Active Magnesium 400 MG 1 tablet with a meal Orally Once a day Active Lamictal 100 MG 1 tablet Orally Twice a day Active Restasis 0.05 % 1 drop into affected eye Ophthalmic Twice a day Active PROCEDURES No Information RESULTS No Results REASON FOR VISIT No Information MEDICAL (GENERAL) HISTORY Type Description Date Medical History chronic kidney failure stage III Medical History Bipolar depression- on lithium greater t saravia 20 years Medical History Depression Medical History Raynaud's syndrome Medical History Macular degeneration Medical History H/O Cataracts Medical History Hyperlipidemia Medical History Hypothyroidism Medical History Vitamin D deficiency Medical History HTN Medical History Memory loss/ Dementia Medical History Osteopenia Medical History --------- Medical History Other MD: Pepito Licea MD Surgical History Hysterectomy vaginal, ovary intact Surgical History Breast implants Surgical History Cataract surgery Surgical History Basal cell removed from nose, mandaen, fo rehead and above lip Surgical History Eyelid surgery Surgical History Colonoscopy Surgical History EDC- left petersen- BCC Surgical History BCC removal from face x 2 Surgical History Basal cell removal forehead Goals Section No Information Health Concerns No Information MEDICAL EQUIPMENT No Information MENTAL STATUS No Information FUNCTIONAL STATUS No Information ASSESSMENTS No Information PLAN OF TREATMENT No Information Insurance Providers Payer Name Payer Address Payer Phone Insured Name Patient Relati onship to Insured Coverage Start Date Coverage End Date R [address] [address] [facility] [address] SOFI SULLIVAN self MEDICARE PRIMARY [address] [facility] [phone] MURALI SULLIVAN self
--- OUTSIDE RECORDS SUMMARY | 2020-07-11 06:49 | CCD | Continuity of Care Document ---
Author Author Rachel SIERRA DPM Organization Unknown Address [address] [place] [address], [address] [place] [address] Phone [phone] Care Team Providers Care Gold Prospector Name Role Phone Temitope Murillo MDM Problems Active Problems Provider Date Hammer toe Renny Sierra DPM Onset: 03/21/2018 Corns and callosities Renny Sierra DPM Onset: 03/21/2018 Onychomycosis Renny Sierra DPM Onset: 03/22/2019 Social History Type Date Description Comments Sex Unknown ETOH Use Denies alcohol use Tobacco Use Start: Unknown Patient has never smoked Allergies, Adverse Reactions, Alerts Active Allergies Reaction Severity Comments Date Sulfa Antibiotics 03/08/2018 Bee Stings 03/08/2018 Medications Active Medications SIG Qnty Indications Ordering Provide r Date Ammonium Lactate 12% Cream apply to feet daily 140gm Renny Sierra DPM 06/05/2019 Amphetamine-Dextroamphetamine 10mg Tablets Take One Tablet By Mouth Every Morning Maximum Daily Dose One Tablet Unknown Viibryd 40mg Tablets Take One Tablet By Mouth Once A Day With Food Unknown Lamotrigine 100mg Tablets Take One Tablet By Mouth Twice A Day Unknown Latuda 60mg Tablets Take One Tablet By Mouth Every Day With Food Unknown Losartan Potassium 25mg Tablets Take One Tablet By Mouth Once A Day Unknown Viibryd 20mg Tablets Take One Tablet By Mouth Every Day With Food Unknown Mupirocin 2% Ointment Apply Topically Three Times A Day For 10 Days Unknown Hydrocortisone 2.5% Cream Apply To Lesions Three Times A Day For 10 Days Unknown Rafael Capo Carbonate 300mg Capsules Take One Capsule By Mouth Twice A Day Unknown Levothyroxine Sodium 50mcg Tablets Take One Tablet By Mouth Once A Day In The Morning On An Empty Stomach Unknown Vitamin D (Ergocalciferol) [id number] Capsules Take 1 Capsule By Mouth Once A Week Unkno wn Amlodipine Besylate 5mg Tablets Take One Tablet By Mouth Daily Unknown Amphetamine-Dextroamphetamine 20mg Tablets Take One Tablet By Mouth Once A Day In T he Morning Maximum Daily Dose One Tablet Unknown SF 1.1% Gel Appl y To Teeth Daily as Directed Unknown Restasis 0.05% Emulsion Instill One Drop Into Each Eye Twice Daily Unknown Latuda 40mg Tablets Take One Tablet By Mouth Once A Day With Food Unknown Immunizations Description No Information Available Vital Signs Date Vital Result Comment 03/08/2018 1:04pm Height 61 inches 5'1" Weight 170.00 lb BP Systolic 140 mmHg BP Diastolic 76 mmHg Heart Rate 80 /min BMI (Body Mass Index) 32.1 kg/m2 Results Description No Information Available Procedures Description No Information Available Medical Devices Description No Information Available Encounters Type Date Location Provider Dx Diagnosis Office Visit 04/10/2020 11:00a [facility] Renny Sierra DPM M20.40 Other hammer toe(s) (acquired), unspecified foot B35.1 Tinea unguium L84 Corns and callosities Office Visit 01/08/2020 1:45p [facility] [place] [facility] Renny Sierra DPM B35.1 Tinea unguium Assessments Date Code Description Provider 04/10/2020 M20.40 Other hammer toe(s) (acquired), unspecified foot Renny Sierra DPM 04/10/2020 B35.1 Tinea unguium Renny Sierra DPM 04/10/2020 L84 Corns and callosities Renny Sierra DPM 01/08/2020 B35.1 Tinea unguium Renny Sierra DPM Plan of Treatment Future Appointment(s):* 08/28/2020 11:15 am - Renny Sierra DPM at [facility] Functional Status Description No Information Available Mental Status Description No Information Available Referrals Description No Information Available
--- OUTSIDE RECORDS SUMMARY | 2020-07-11 06:49 | CCD | Continuity of Care Document ---
Author Author Rachel RAY Organization Unknown Address [id number] [place] [address] 6 [address] [place] [address] Phone [phone] Care Team Providers Care Shaker Plate Operator Name Role Phone Temitope Murillo D.O. AUTM Chapincito Hardy MD AUTM [phone] [facility] AUTM [phone] Jose Benton MD AUTM [phone] [facility] AUTM [phone] [facility] Program AUTM Problems Active Problems Provider Date Moderate recurrent [...] SIG Qnty Indications Ordering Provide r Date Shingrix 50mcg/0.5ML Suspension Re c inject subcutaneous times one 1units Brooklyn KlineO Lm 02/26/2020 Physical Therapy Right leg and Balance/Posture 2-3 times a week for 6 weeks M79.604 Brooklyn KlineO. 07/31/2019 R53.1 Jean Claude Back Support Misc 1 as directed Dx: thoracic kyphosis. M40.04 Temitope Murillo D.O. Furosemide 40mg Tablets 1 by mouth every day as needed for swelling. 90tabs R60.9 Temitope Murillo D.O. 01/02/2019 Finger Splint Small Misc Finger splint of right littler finger of DIP with finger in full extension. stax- finger splint 1units M20.011 Brooklyn KlineOLm 12/23/2018 Amlodipine Besylate 10mg Tablets take one tablet by mouth every day 90tabs Brookyln KlineO. 11/21/2018 Amphetamine-Dextroamphetamine 10mg Tablets one tablet by mouth daily istop [id number] Unknown [place] Carbonate 150mg Capsules 1 cap by mouth [...] Tablet By Mouth Twice A Day Unknown [place] Carbonate 300mg Capsules Take One Capsule By Mouth in the evening Unknown History Medications Tetanus/Diphtheria Toxoids-Adsorbed Adul t 2-2LF/0.5ML Suspension administer tetanus without pertussis at Pharmacy. 5ml Brooklyn KlineO. 01/15/2020 - 01/15/2020 Tdap Vaccine administer tetanus diptheria and Pertussis Vaccine at pharmacy, Im injection. 1unclark Murillo D.O. 01/14 - 01/15/2020 Immunizations Description No Information Available Vital Signs Date Vital Result Comment 05/07/2020 3:27pm BP Systolic 124 mmHg BP Diastolic 72 mmHg Height 59.6 inches 4'11.60" Heart Rate 88 /min Respiratory Rate 18 /min Body Temperature 98.3 F O2 % BldC Oximetry 97 % [place] Body Weight 100 lb 04/02/2020 8:13am BP Systolic 128 mmHg BP Diastolic 80 mmHg Height 59.6 inches 4'11.60" Weight 150.50 lb BMI (Body Mass Index) 29.8 kg/m2 Heart Rate 89 /min Respiratory Rate 16 /min Body Temperature 97.6 F O2 % BldC Oximetry 96 % [place] Body Weight 100 lb Results Test Acquired Date Facility Test Result H/L Range Note Ua Routine 05/08/2020 [facility] Outpatient Testi chasity (Registration) [address] [place] [address] [phone] Appearance, Urine CLEAR Normal Clear Color, Urine STRAW Normal Yellow PH,Urine 7.0 units Normal 5.0-9.0 Specific [place] Urine Auto 1.003 Normal 1.002-1.035 Protein, [...] /LPF Normal 0-1 Laboratory test finding 05/08/2020 [facility] Outpatient T esting (Registration) [address] [place] [address] [phone] Urine Culture FULL REPORT IN L <SEE NOTE> Normal 1 FT4&TSH Panel 05/07/2020 [facility] Outpatient Testi ng (Registration) [address] [place] [address] [phone] Thyroid Stimulating Hormone 1.040 uIU/ML Normal 0. 358-3.740 Free T4 1.02 ng/dL Normal 0.76-1.46 Vitamin B12 & Folate 05/07/2020 [facility] Outpatient Test ing (Registration) [address] [place] [address] [phone] Vitamin B12 Level 671 pg/mL Normal 2 Folate > 24.0 NG/ML Normal 3 Laboratory test finding 05/07/2020 [facility] Outpatient T esting (Registration) [address] [place] [address] [phone] [place] Level 0.61 mEq/L Normal 0.60-1.20 Laboratory test finding 05/07/2020 [facility] Outpatient T esting (Registration) [address] [place] [address] [phone] Urine Culture <pending> Laboratory test finding 05/02/2020 [facility] Outpatient T esting (Registration) [address] [place] [address] [phone] Ferritin 72 NG/ML Normal 8-252 Serum Protein Electrophoresis 05/02/2020 [facility] Outpat ient Testing (Registration) [address] [place] [address] [phone] Albumin % 56.7 % Normal 55.8-66.1 Tdnec-5-Zftphdhm % 5.1 % High 2.9-4.9 Qgtvg-7-Nepasdosj % 12.7 % High 7.1-11.8 Mdtp-2-Imqayllab % 7.3 % High 4.7-7.2 Nsfq-4-Lhbpwnxjv % 7.2 % High 3.2-6.5 Gamma Globulin % 11.0 % Low 11.1-18.8 Albumin 4.08 GM/DL Normal 3.29-5.55 Apajz-5-Aybqevkuk 0.37 GM/DL Normal 0.17-0.41 Tfkgt-5-Ghfrsjpky 0.91 GM/DL Normal 0.42-0.99 Bvlk-7-Hvxmmbghy 0.53 GM/DL Normal 0.28-0.60 Xsou-3-Hbgnsnonb 0.52 GM/DL Normal 0.19-0.55 Gamma Globulins 0.79 GM/DL Normal 0.65-1.58 Total Protein 7.2 GM/DL Normal 6.4-8.2 Spep Interpretation SEE COMMENT Normal 4 Spep Pathologist Review REV'D BY O ADJAP <SEE NOTE> Normal 5 Immunotyping (Immunofixation) Serum (If 05/02/2020 [facility] Outpatient Testing (Registration) [address] [place] [address] [phone] It Serum Interpretation SEE COMMENT Normal 6 Its Pathologist Review REV'D BY O ADJAP <SEE NOTE> Normal 7 Total Iron Binding Capacit 05/02/2020 [facility] Outpatien t Testing (Registration) [address] [place] [address] [phone] Iron (Fe) 106 g/dL Normal 50-170 Total Iron Binding Capacity 376 g/dL Normal 250-450 Percent Saturation 28.2 % Normal 13.2-45.0 Laboratory test finding 05/02/2020 [facility] Outpatient T esting (Registration) [address] [place] [address] [phone] LDH Lactate Dehydrogenase 210 U/L Normal 84-246 Comprehensive Metabolic Profil 05/02/2020 [facility] Outpa tient Testing (Registration) [address] [place] [address] [phone] Glucose, Fasting 75 mg/dL Normal 70-100 Blood [...] 1.1 Low 1.2-2.2 Laboratory test finding 05/02/2020 [facility] Outpatient T esting (Registration) [address] [place] [address] [phone] Haptoglobin 194 mg/dL Normal 42-346 9 Direct Ruth 05/02/2020 [facility] Outpatient Testi ng (Registration) [address] [place] [address] [phone] Wero Result Calc NEGATIVE Normal Retic (Reticulocyte Count) 05/02/2020 [facility] Outpatien t Testing (Registration) [address] [place] [address] [phone] Reticulocyte % 1.2 % Normal 0.5-1.5 Reticulocyte # 46.5 10 Normal 17-77 Retic Hemoglobin Equivalent 35.5 pg Normal 24-36 CBC With Differential 05/02/2020 [facility] Outpatient Nirali ting (Registration) [address] [place] [address] [phone] White Blood Count 9.5 10 Normal 4.0-10.0 [...] 36.0-66.0 Lymph % 25.2 % Normal 24.0-44.0 [place] % 10.0 % High 0.0-5.0 Eos % 3.7 % High 0.0-3.0 Baso % 1.0 % Normal 0.0-1.0 Immature Granulocyte % 0.3 % Normal 0-3.0 Nucleated Red Blood Cell % 0.0 % Normal 0-0 Neutrophils # 5.7 10 Normal 1.5-8.5 Lymph # 2.4 10 Normal 1.5-5.0 [place] # 1.0 10 High 0.0-0.8 Eos # 0.4 10 Normal 0.0-0.5 Baso # 0.1 10 Normal 0.0-0.2 CBC With Differential 02/27/2020 [facility] Outpatient Nirali ting (Registration) [address] [place] [address] [phone] White Blood Count 8.8 10 Normal 4.0-10.0 [...] 36.0-66.0 Lymph % 28.9 % Normal 24.0-44.0 [place] % 10.9 % High 0.0-5.0 Eos % 2.8 % Normal 0.0-3.0 Baso % 1.1 % High 0.0-1.0 Immature Granulocyte % 0.2 % Normal 0-3.0 Nucleated Red Blood Cell % 0.0 % Normal 0-0 Neutrophils # 4.9 10 Normal 1.5-8.5 Lymph # 2.5 10 Normal 1.5-5.0 [place] # 1.0 10 High 0.0-0.8 Eos # 0.3 10 Normal 0.0-0.5 Baso # 0.1 10 Normal 0.0-0.2 Comprehensive Metabolic Profil 02/27/2020 [facility] Outpa tient Testing (Registration) [address] [place], [place] [id number] [phone] Glucose, Fasting 86 mg/dL Normal 70-100 Blood [...] 1.1 Low 1.2-2.2 Laboratory test finding 02/27/2020 [facility] Outpatient T esting (Registration) [address] [place] [address] [phone] Magnesium Level 2.9 mg/dL High 1.8-2.4 11 NT-Pro BNP 140 pg/mL Normal <450 12 Thyroid Stimulating Hormone 1.080 uIU/ML Normal 0.358-3.740 13 CBC With Differential 12/21/2019 [facility] Outpatient Nirali tom (Registration) [address] [place] [address] [phone] White Blood Count 8.5 10 Normal 4.0-10.0 [...] 36.0-66.0 Lymph % 38.6 % Normal 24.0-44.0 [place] % 10.2 % High 0.0-5.0 Eos % 2.0 % Normal 0.0-3.0 Baso % 0.9 % Normal 0.0-1.0 Immature Granulocyte % 0.2 % Normal 0-3.0 Nucleated Red Blood Cell % 0.0 % Normal 0-0 Neutrophils # 4.1 10 Normal 1.5-8.5 Lymph # 3.3 10 Normal 1.5-5.0 [place] # 0.9 10 High 0.0-0.8 Eos # 0.2 10 Normal 0.0-0.5 Baso # 0.1 10 Normal 0.0-0.2 Comprehensive Metabolic Profil 12/21/2019 [facility] Outpa tient Testing (Registration) [address] [place] [address] [phone] Glucose, Fasting 95 mg/dL Normal 70-100 Blood [...] Ratio 1.1 Low 1.2-2.2 FT4&TSH Panel 12/21/2019 [facility] Outpatient Testi ng (Registration) [address] [place] [address] [phone] Thyroid Stimulating Hormone 2.740 uIU/ML Normal 0. 358-3.740 Free T4 1.03 ng/dL Normal 0.76-1.46 Laboratory test finding 12/21/2019 [facility] Outpatient T esting (Registration) [address] [place] [address] [phone] Total 25(Oh) Vitamin D 59.2 NG/ML Normal 30.0-100. 0 1 FULL REPORT IN LAB NOTES (eC W and [place]). NO GROWTH 2 VITAMIN B12 NORMAL RANGE NORMAL 247 - 911 PG/ML INDETERMINATE 211 - 246 PG/ML DEFICIENT LESS THAN 211 PG/ML 3 FOLATE NORMAL RANGE NORMAL GREATER THAN 5.4 NG/ML INDETERMINATE 3.4-5.4 NG/ML DEFICIENT LESS THAN 3.4 NG/ML 4 NO M-SPIKE(S)NOTED. 5 REV'D BY O ADJAPONG 6 NO MONOCLONAL BANDS NOTED. 7 REV'D BY Efrem LEMOS 8 Units are mL/min/1.73 m2 Chronic Kidney Disease Staging per NKF: Stage I & II GFR >=60 Normal to Mildly Decreased Stage III GFR 30-59 Moderately Decreased Stage IV GFR 15-29 Severely Decreased Stage V GFR <15 Very Little GFR Left ESRD GFR <15 on [employer] SALES REPRESENTATIVE 9 Performed at: RN - [facility] [address] [id number] Program Services Planner: Geovanna Stroud MD, Phone: [phone] Units are mL/min/1.73 m2 Chronic Kidney Disease Staging per NKF: Stage I & II GFR >=60 Normal to Mildly Decreased Stage III GFR 30-59 Moderately Decreased Stage IV GFR 15-29 Severely Decreased Stage V GFR <15 Very Little GFR Left ESRD GFR <15 on [employer] SALES REPRESENTATIVE 11 FAX TO [phone] FAX TO [phone] 12 FAX TO [phone] FAX TO [phone] FAX TO [phone] FAX TO [phone] Units are mL/min/1.73 m2 Chronic Kidney Disease Staging per NKF: Stage I & II GFR >=60 Normal to Mildly Decreased Stage III GFR 30-59 Moderately Decreased Stage IV GFR 15-29 Severely Decreased Stage V GFR <15 Very Little GFR Left ESRD GFR <15 on [employer] SALES REPRESENTATIVE Procedures Description No Information Available Medical Devices Description No Information Available Encounters Type Date Location Provider Dx Diagnosis Office Visit 05/07/2020 3:20p [facility] CAIT Reid M54.5 Low back pain R53.1 Weakness R25.1 Tremor, unspecified R60.9 Edema, unspecified R32 Unspecified urinary incontin ence M25.552 Pain in left hip Office Visit 04/02/2020 8:20a [facility] Fran Murillo D.O. 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, thoracic region Z88.1 Allergy status to other anti biotic agents D64.9 Anemia, unspecified M25.552 Pain in left hip Office Visit 01/15/2020 3:40p [facility] CAIT Romero Z48.02 Encounter for removal of sut ures Office Visit 12/27/2019 8:00a [facility] CAIT Kearns R29.6 Repeated falls E03.9 Hypothyroidism, unspecified I10 Essential (primary) hyperten gary F31.9 Bipolar disorder, unspecifie d E55.9 Vitamin D deficiency, unspec ified Office Visit 12/15/2019 2:00p [facility] CAIT Kearns S00.83xA Contusion of other part of h ead, initial encounter Y92.22 [facility] as chris ce R29.6 Repeated falls Office Visit 12/05/2019 9:20a [facility] Temitope Murillo D.O. C44.311 Basal cell carcinoma of skin of nose Assessments Date Code Description Provider 05/07/2020 M54.5 Low back pain CAIT Kearns 05/07/2020 R53.1 Weakness CAIT [place]ns 05/07/2020 R25.1 Tremor, unspecified CAIT Nichols 05/07/2020 R60.9 Edema, unspecified CAIT Curiel 05/07/2020 R32 Unspecified urinary incontinence CAIT [place]ear[place] 05/07/2020 M25.552 Pain in left hip CAIT Finn 04/02/2020 E03.9 Hypothyroidism, unspecified Temitope Murillo D.O. 04/02/2020 F31.9 Bipolar disorder, unspecified James Murillo D.O. 04/02/2020 E55.9 Vitamin D deficiency, unspecifie d Temitope Murillo D.O. 04/02/2020 M54.17 Radiculopathy, lumbosacral regio n Temitope GrantDiane, D.O. 04/02/2020 I12.9 Hypertensive chronic kidney disease with stage 1 through stage 4 chronic kidney disease, or unspecified chronic kidney disease Temitope Brooklyn NegronO. 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 04/02/2020 Z79.82 retirement (current) use of aspir in Temitopemarbin AlcarazRogerAraceli Darling.O. 04/02/2020 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, thoracic joshua on Temitope AlcarazAraceli Darling.O. 04/02/2020 Z88.1 Allergy status to other antibiot ic agents Araceli Kline.OLm 04/02/2020 D64.9 Anemia, unspecified Temitope Kieranleigh annAraceli Almaguer.OLm 04/02/2020 M25.552 Pain in left hip Temitope GrantJoe Araceli martinez.OLm 01/15/2020 Z48.02 Encounter for removal of sutures ACIT Romero 12/27/2019 R29.6 Repeated falls CAIT Kearns 12/27/2019 E03.9 Hypothyroidism, unspecified CAIT Contreras 12/27/2019 I10 Essential (primary) hypertension CAIT [place] 12/27/2019 F31.9 Bipolar disorder, unspecified St CAIT Eli 12/27/2019 E55.9 Vitamin D deficiency, unspecifie d CAIT [place] 12/15/2019 S00.83xA Contusion of other part of head, initial encounter CAIT [place] 12/15/2019 Y92.22 [facility] as the [facility] of occurrence of the external cause CAIT [place] 12/15/2019 R29.6 Repeated falls CAIT [place] 12/05/2019 C44.311 Basal cell carcinoma of skin of nose Temitope Murillo D.O. Plan of Treatment Future Appointment(s):* 05/14/2020 8:40 am - CAIT Kearns at [facility] * 07/03/2020 9:20 am - CAIT Kearns at [facility] 05/07/2020 - CAIT [place]earns* M54.5 Low back pain* Comments:* For the time being, continue your current care with heat, and we call if not improved by Wednesday. * Follow up:* next week with me. * R53.1 Weakness* Comments:* Unsure of the cause currently. We will check baseline labs and a urine sample. I'll let you know of those results and further treatment plans. * R25.1 Tremor, unspecified* Comments:* Unsure of the cause currently. * R60.9 Edema, unspecified* Comments:* Stable. Continue with your furosemide as prescribed. * R32 Unspecified urinary incontinence* Comments:* Chronic in nature. Will check urine sample to evaluate for infection. * M25.552 Pain in left hip* Comments:* Continue with your home exercise regimen as you are able. Functional Status Description No Information Available Mental Status Description No Information Available Referrals Refer to Reason for Referral Status Appt Date [facility] 79 year old fema le with frequent falls, who is amenable to starting to use a cane. Please eval and treat. [address] [place] [address] [phone] Jose Benton MD 79 year old female with recu rrent falls, with concern being raised for a cardiogenic cause. Please eval and treat. Sent [address] [facility] [address] [place] [address] [phone]
--- OUTSIDE RECORDS SUMMARY | 2020-07-11 06:49 | CCD | Continuity of Care Document ---
Author Author Rachel SIERRA DPM Organization Unknown Address [address] [place] [address], [address] [place] [address] Phone [phone] Care Team Providers Care Rolling Mill Operator Name Role Phone Temitope Murillo MDM [phone] Problems Active Problems Provider Date Hammer toe [...] Times A Day For 10 Days Unknown [place] Carbonate 300mg Capsules Take One Capsule By Mouth Twice A Day Unknown Levothyroxine Sodium 50mcg Tablets Take One Tablet By Mouth Once A Day In The Morning On An Empty Stomach Unknown Vitamin D (Ergocalciferol) [id number] Capsules Take 1 Capsule By Mouth Once [...] kg/m2 Results Description No Information Available Procedures Date Code Description Status 06/19/2020 70474 Debridement 6-10 Nails Electric Completed 06/19/2020 37937 Paring/Cut Benign Lesion 2 To 4 Completed Medical Devices Description No Information Available Encounters Type Date Location Provider Dx Diagnosis Office Visit 04/10/2020 11:00a [facility] Renny Sierra DPM M20.40 Other hammer toe(s) (acquired), unspecified foot B35.1 Tinea unguium L84 Corns and callosities Office Visit 01/08/2020 1:45p [facility] Renny Sierra DPM B35.1 Tinea unguium Assessments Date Code Description Provider 06/19/2020 B35.1 Tinea unguium Renny Sierra DPM 06/19/2020 I73.89 Other specified peripheral vascu lar diseases Renny Sierra DPM 06/19/2020 L84 Corns and callosities Renny Sierra DPM 04/10/2020 M20.40 Other hammer toe(s) (acquired), unspecified foot Renny Sierra, [facility] 04/10/2020 B35.1 Tinea unguium Renny Sierra, [facility] 04/10/2020 L84 Corns and callosities Renny Sierra DPM 01/08/2020 B35.1 Tinea unguium Renny Sierra DPM Plan of Treatment Future Appointment(s):* 08/28/2020 11:15 am - Renny Sierra DPM at [facility] Functional Status Description No Information Available Mental Status Description No Information Available Referrals Description No Information Available
--- OUTSIDE RECORDS SUMMARY | 2020-07-11 06:50 | CCD | Continuity of Care Document ---
Author Author Rachel MURILLO D.O. Organization Unknown Address [address] [place] [address] Phone [phone] Care Team Providers Care Hat Designer Name Role Phone Temitope Murillo D.O. AUTM Chapincito Hardy MD AUTM [phone] [facility] AUTM [phone] Jose Benton MD AUTM [phone] [facility] AUTM [phone] Problems Active Problems Provider Date Moderate recurrent [...] Use Denies Drug Use Smoking Status Reviewed: 04/02/20 Patient has never smoked Exercise Type/Frequency Gym [...] times a week for 6 weeks M79.604 Temitope Murillo D.O. 07/31/2019 R53.1 Jean Claude Back Support Misc [...] tablet by mouth every day 90tabs Brooklyn KlineO. 11/21/2018 [place] Carbonate 150mg Capsules 1 cap by mouth in the morning Unknown Latuda 40mg Tablets take one tablet by mouth daily. Unknown Amphetamine-Dextroamphetamine 30mg Tablets one tablet by mouth daily istop [id number] Unknown Aspir-[address] 1 by [...] Tablet By Mouth Twice A Day Unknown [place] Carbonate 300mg Capsules Take One Capsule By Mouth in the evening Unknown History Medications Tetanus/Diphtheria Toxoids-Adsorbed Adul t 2-2LF/0.5ML Suspension administer tetanus without pertussis at Pharmacy. 5ml Temitope Murillo D.O. 01/15/2020 - 01/15/2020 Tdap Vaccine administer tetanus diptheria and Pertussis Vaccine at pharmacy, Im injection. 1units Temitope Murillo D.O. 01/14 - 01/15/2020 Immunizations Description No Information Available Vital Signs Date Vital Result Comment 04/02/2020 8:13am BP Systolic 128 mmHg BP Diastolic 80 mmHg Height 59.6 inches 4'11.60" Weight 150.50 lb BMI (Body Mass Index) 29.8 kg/m2 Heart Rate 89 /min Respiratory Rate 16 /min Body Temperature 97.6 F O2 % BldC Oximetry 96 % [place] Body Weight 100 lb 01/15/2020 3:25pm BP Systolic 134 mmHg BP Diastolic 74 mmHg Height 59.6 inches 4'11.60" Heart Rate 79 /min Respiratory Rate 16 /min Body Temperature 98.2 F O2 % BldC Oximetry 96 % [place] Body Weight 100 lb Results Test Acquired Date Facility Test Result H/L Range Note CBC With Differential 05/02/2020 [facility] Outpatient Nirali tom (Registration) [address], [place] [id number] [phone] White Blood Count 9.5 10 Normal 4.0-10.0 [...] 36.0-66.0 Lymph % 25.2 % Normal 24.0-44.0 [place] % 10.0 % High 0.0-5.0 Eos % 3.7 % High 0.0-3.0 Baso % 1.0 % Normal 0.0-1.0 Immature Granulocyte % 0.3 % Normal 0-3.0 Nucleated Red Blood Cell % 0.0 % Normal 0-0 Neutrophils # 5.7 10 Normal 1.5-8.5 Lymph # 2.4 10 Normal 1.5-5.0 [place] # 1.0 10 High 0.0-0.8 Eos # 0.4 10 Normal 0.0-0.5 Baso # 0.1 10 Normal 0.0-0.2 Retic (Reticulocyte Count) 05/02/2020 [facility] Outpatien t Testing (Registration) [address] [place] [address] [phone] Reticulocyte % 1.2 % Normal 0.5-1.5 Reticulocyte # 46.5 10 Normal 17-77 Retic Hemoglobin Equivalent 35.5 pg Normal 24-36 Direct Ruth 05/02/2020 [facility] Outpatient Testi ng (Registration) [address] [place] [address] [phone] Wero Result Calc NEGATIVE Normal CBC With Differential 02/27/2020 [facility] Outpatient Nirali ting (Registration) [address] [place] [address] [phone] White Blood Count 8.8 10 Normal 4.0-10.0 [...] 36.0-66.0 Lymph % 28.9 % Normal 24.0-44.0 [place] % 10.9 % High 0.0-5.0 Eos % 2.8 % Normal 0.0-3.0 Baso % 1.1 % High 0.0-1.0 Immature Granulocyte % 0.2 % Normal 0-3.0 Nucleated Red Blood Cell % 0.0 % Normal 0-0 Neutrophils # 4.9 10 Normal 1.5-8.5 Lymph # 2.5 10 Normal 1.5-5.0 [place] # 1.0 10 High 0.0-0.8 Eos # 0.3 10 Normal 0.0-0.5 Baso # 0.1 10 Normal 0.0-0.2 Comprehensive Metabolic Profil 02/27/2020 [facility] Outpa tient Testing (Registration) [address] [place] [address] [phone] Glucose, Fasting 86 mg/dL Normal 70-100 Blood Urea Nitrogen 15 mg/dL Normal 7-18 Creatinine For GFR 1.05 mg/dL Normal 0.55-1.30 Glomerular Filtration Rate 54.0 Normal >39 1 Sodium Level 144 mEq/L Normal 136-145 Potassium [...] 1.1 Low 1.2-2.2 Laboratory test finding 02/27/2020 [facility] Outpatient T esting (Registration) [address] [place] [address] [phone] Magnesium Level 2.9 mg/dL High 1.8-2.4 2 NT-Pro BNP 140 pg/mL Normal <450 3 Thyroid Stimulating Hormone 1.080 uIU/ML Normal 0.358-3.740 4 CBC With Differential 12/21/2019 [facility] Outpatient Nirali ting (Registration) [address] [place] [address] [phone] White Blood Count 8.5 10 Normal 4.0-10.0 [...] 36.0-66.0 Lymph % 38.6 % Normal 24.0-44.0 [place] % 10.2 % High 0.0-5.0 Eos % 2.0 % Normal 0.0-3.0 Baso % 0.9 % Normal 0.0-1.0 Immature Granulocyte % 0.2 % Normal 0-3.0 Nucleated Red Blood Cell % 0.0 % Normal 0-0 Neutrophils # 4.1 10 Normal 1.5-8.5 Lymph # 3.3 10 Normal 1.5-5.0 [place] # 0.9 10 High 0.0-0.8 Eos # 0.2 10 Normal 0.0-0.5 Baso # 0.1 10 Normal 0.0-0.2 Comprehensive Metabolic Profil 12/21/2019 [facility] Outpa tient Testing (Registration) [address] [place] [address] [phone] Glucose, Fasting 95 mg/dL Normal 70-100 Blood Urea Nitrogen 25 mg/dL High 7-18 Creatinine For GFR 1.42 mg/dL High 0.55-1.30 Glomerular Filtration Rate 38.1 Low >39 5 Sodium Level 143 mEq/L Normal 136-145 Potassium [...] Ratio 1.1 Low 1.2-2.2 FT4&TSH Panel 12/21/2019 [facility] Outpatient Testi ng (Registration) [address] [place] [address] [phone] Thyroid Stimulating Hormone 2.740 uIU/ML Normal 0. 358-3.740 Free T4 1.03 ng/dL Normal 0.76-1.46 Laboratory test finding 12/21/2019 [facility] Outpatient T madyson (Registration) [address] [place] [address] [phone] Total 25(Oh) Vitamin D 59.2 NG/ML Normal 30.0-100. 0 1 Units are mL/min/1.73 m2 Chronic Kidney Disease Staging per NKF: Stage I & II GFR >=60 Normal to Mildly Decreased Stage III GFR 30-59 Moderately Decreased Stage IV GFR 15-29 Severely Decreased Stage V GFR <15 Very Little GFR Left ESRD GFR <15 on RADIO ARTIST 2 FAX TO [phone] FAX TO [phone] FAX TO [phone] FAX TO [phone] FAX TO [phone] FAX TO [phone] Units are mL/min/1.73 m2 Chronic Kidney Disease Staging per NKF: Stage I & II GFR >=60 Normal to Mildly Decreased Stage III GFR 30-59 Moderately Decreased Stage IV GFR 15-29 Severely Decreased Stage V GFR <15 Very Little GFR Left ESRD GFR <15 on RADIO ARTIST Procedures Description No Information Available Medical Devices Description No Information Available Encounters Type Date Location Provider Dx Diagnosis Office Visit 04/02/2020 8:20a [facility] Temitope Murillo D.O. 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, thoracic region Z88.1 Allergy status to other anti biotic agents D64.9 Anemia, unspecified M25.552 Pain in left hip Office Visit 01/15/2020 3:40p [facility] CAIT Romero Z48.02 Encounter for removal of sut ures Office Visit 12/27/2019 8:00a [facility] CAIT Kearns R29.6 Repeated falls E03.9 Hypothyroidism, unspecified I10 Essential (primary) hyperten gary F31.9 Bipolar disorder, unspecifie d E55.9 Vitamin D deficiency, unspec ified Office Visit 12/15/2019 2:00p [facility] CAIT Kearns S00.83xA Contusion of other part of h ead, initial encounter Y92.22 [facility] R29.6 Repeated falls Office Visit 12/05/2019 9:20a [facility] Temitope Murillo D.O. C44.311 Basal cell carcinoma of skin of nose Assessments Date Code Description Provider 04/02/2020 E03.9 Hypothyroidism, unspecified Temitope Murillo, D.O. [...] sulfonamides Maged Murillo D.O. 04/02/2020 Z79.899 Other medical dir (current) drug t herapy Temitope Murillo D.O. 04/02/2020 Z79.82 color strainer (current) use of aspir in Temitope Murillo D.O. 04/02/2020 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, thoracic joshua on Temitope Murillo, D.O. 04/02/2020 Z88.1 Allergy status to other antibiot ic agents Temitope Murilol D.O. 04/02/2020 D64.9 Anemia, unspecified Temitope Crowley D.O. 04/02/2020 M25.552 Pain in left hip Temitope martinez D.O. 01/15/2020 Z48.02 Encounter for removal of sutures CAIT Romero 12/27/2019 R29.6 Repeated falls CAIT Kear[place] 12/27/2019 E03.9 Hypothyroidism, unspecified CAIT Contreras 12/27/2019 I10 Essential (primary) hypertension CAIT Kear[place] 12/27/2019 F31.9 Bipolar disorder, unspecified anna CAIT Mahajan 12/27/2019 E55.9 Vitamin D deficiency, unspecifie d CAIT [place]ear[place] 12/15/2019 S00.83xA Contusion of other part of head, initial encounter CAIT Kear[place] 12/15/2019 Y92.22 [facility] occurrence of the external cause CAIT Kearns 12/15/2019 R29.6 Repeated falls CAIT Kearns 12/05/2019 C44.311 Basal cell carcinoma of skin of nose Temitope Murillo D.O. Plan of Treatment Future Appointment(s):* 07/03/2020 9:20 am - CAIT Kearns at [facility] Functional Status Description No Information Available Mental Status Description No Information Available Referrals Refer to Reason for Referral Status Appt Date [facility] 79 year old fema le with frequent falls, who is amenable to starting to use a cane. Please eval and treat. Sent [address] [place] [address] [phone] Jose Benton MD 79 year old female with recu rrent falls, with concern being raised for a cardiogenic cause. Please eval and treat. Sent [address] [place] [address] [phone]
--- OUTSIDE RECORDS SUMMARY | 2020-07-11 06:50 | CCD | Continuity of Care Document ---
Author Author Rachel MURILLO D.O. Organization Unknown Address [address] [place] [address] Phone [phone] Care Team Providers Care Ax Survey Worker Name Role Phone Temitope Murillo D.O. AUTM Chapincito Hardy MD AUTM [phone] [facility] AUTM [phone] Jose Benton MD AUTM [phone] [facility] AUTM [phone] Problems Active Problems Provider Date Moderate recurrent [...] mouth every day 90tabs [place] KlineO. 11/21/2018 [place] Carbonate 150mg Capsules 1 cap by mouth in the morning Unknown Latuda 40mg Tablets take one tablet by mouth daily. Unknown Amphetamine-Dextroamphetamine 30mg Tablets one tablet by mouth daily istop [id number] Unknown Aspir-[address] 1 by [...] Tablet By Mouth Twice A Day Unknown [place] Carbonate 300mg Capsules Take One Capsule By [...] F O2 % BldC Oximetry 96 % [place] Body Weight 100 lb 01/15/2020 3:25pm BP Systolic 134 mmHg BP Diastolic 74 mmHg Height 59.6 inches 4'11.60" Heart Rate 79 /min Respiratory Rate 16 /min Body Temperature 98.2 F O2 % BldC Oximetry 96 % [place] Body Weight 100 lb Results Test Acquired Date Facility Test Result H/L Range Note CBC With Differential 05/02/2020 [facility] Outpatient Nirali tom (Registration) [address] [place], [place] [id number] [phone] White Blood Count 9.5 10 Normal 4.0-10.0 [...] 36.0-66.0 Lymph % 25.2 % Normal 24.0-44.0 [place] % 10.0 % High 0.0-5.0 Eos % 3.7 % High 0.0-3.0 Baso % 1.0 % Normal 0.0-1.0 Immature Granulocyte % 0.3 % Normal 0-3.0 Nucleated Red Blood Cell % 0.0 % Normal 0-0 Neutrophils # 5.7 10 Normal 1.5-8.5 Lymph # 2.4 10 Normal 1.5-5.0 [place] # 1.0 10 High 0.0-0.8 Eos # 0.4 10 Normal 0.0-0.5 Baso # 0.1 10 Normal 0.0-0.2 Retic (Reticulocyte Count) 05/02/2020 [facility] Outpatien t Testing (Registration) [address] [place] [address] [phone] Reticulocyte % 1.2 % Normal 0.5-1.5 Reticulocyte # 46.5 10 Normal 17-77 Retic Hemoglobin Equivalent 35.5 pg Normal 24-36 CBC With Differential 02/27/2020 [facility] Outpatient Nirali ting (Registration) [address] [place] [address] [phone] White Blood Count 8.8 10 Normal 4.0-10.0 [...] 36.0-66.0 Lymph % 28.9 % Normal 24.0-44.0 [place] % 10.9 % High 0.0-5.0 Eos % 2.8 % Normal 0.0-3.0 Baso % 1.1 % High 0.0-1.0 Immature Granulocyte % 0.2 % Normal 0-3.0 Nucleated Red Blood Cell % 0.0 % Normal 0-0 Neutrophils # 4.9 10 Normal 1.5-8.5 Lymph # 2.5 10 Normal 1.5-5.0 [place] # 1.0 10 High 0.0-0.8 Eos # 0.3 10 Normal 0.0-0.5 Baso # 0.1 10 Normal 0.0-0.2 Comprehensive Metabolic Profil 02/27/2020 [facility] Outpa tient Testing (Registration) [address] [place] [address] [phone] Glucose, Fasting 86 mg/dL Normal 70-100 Blood [...] 1.1 Low 1.2-2.2 Laboratory test finding 02/27/2020 [facility] Outpatient T esting (Registration) [address] [place] [address] [phone] Magnesium Level 2.9 mg/dL High 1.8-2.4 2 NT-Pro BNP 140 pg/mL Normal <450 3 Thyroid Stimulating Hormone 1.080 uIU/ML Normal 0.358-3.740 4 CBC With Differential 12/21/2019 [facility] Outpatient Nirali tom (Registration) [address] [place] [address] [phone] White Blood Count 8.5 10 Normal 4.0-10.0 [...] 36.0-66.0 Lymph % 38.6 % Normal 24.0-44.0 [place] % 10.2 % High 0.0-5.0 Eos % 2.0 % Normal 0.0-3.0 Baso % 0.9 % Normal 0.0-1.0 Immature Granulocyte % 0.2 % Normal 0-3.0 Nucleated Red Blood Cell % 0.0 % Normal 0-0 Neutrophils # 4.1 10 Normal 1.5-8.5 Lymph # 3.3 10 Normal 1.5-5.0 [place] # 0.9 10 High 0.0-0.8 Eos # 0.2 10 Normal 0.0-0.5 Baso # 0.1 10 Normal 0.0-0.2 Comprehensive Metabolic Profil 12/21/2019 [facility] Outpa tient Testing (Registration) [address] [place] [address] [phone] Glucose, Fasting 95 mg/dL Normal 70-100 Blood [...] Ratio 1.1 Low 1.2-2.2 FT4&TSH Panel 12/21/2019 [facility] Outpatient Testi ng (Registration) [address] [place], [place] [id number] [phone] Thyroid Stimulating Hormone 2.740 uIU/ML Normal 0. 358-3.740 Free T4 1.03 ng/dL Normal 0.76-1.46 Laboratory test finding 12/21/2019 [facility] Outpatient T esting (Registration) [address] [place] [address] [phone] Total 25(Oh) Vitamin D 59.2 NG/ML Normal 30.0-100. 0 1 Units are mL/min/1.73 m2 Chronic Kidney Disease Staging per NKF: Stage I & II GFR >=60 Normal to Mildly Decreased Stage III GFR 30-59 Moderately Decreased Stage IV GFR 15-29 Severely Decreased Stage V GFR <15 Very Little GFR Left ESRD GFR <15 on SAUSAGE MACHINE OPERATOR 2 FAX TO [phone] FAX TO [phone] FAX TO [phone] FAX TO [phone] FAX TO [phone] FAX TO [phone] Units are mL/min/1.73 m2 Chronic Kidney Disease Staging per NKF: Stage I & II GFR >=60 Normal to Mildly Decreased Stage III GFR 30-59 Moderately Decreased Stage IV GFR 15-29 Severely Decreased Stage V GFR <15 Very Little GFR Left ESRD GFR <15 on SAUSAGE MACHINE OPERATOR Procedures Description No Information Available Medical Devices Description No Information Available Encounters Type Date Location Provider Dx Diagnosis Office Visit 04/02/2020 8:20a [facility] Temitope Murillo D.O. 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 [...] sulfonamides Maged Murillo D.O. 04/02/2020 Z79.899 Other longterm (current) drug t herapy Araceli Kline.O. 04/02/2020 Z79.82 supervisor intermediates (current) use of aspir in Temitope Murillo D.O. 04/02/2020 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, thoracic joshua on Temitope Murillo D.O. 04/02/2020 Z88.1 Allergy status to other antibiot ic agents Temitope Murillo D.O. 04/02/2020 D64.9 Anemia, unspecified Temitope Crowley D.O. 04/02/2020 M25.552 Pain in left hip Brooklyn WeaverOLm 01/15/2020 Z48.02 Encounter for removal of sutures CAIT Romero 12/27/2019 R29.6 Repeated falls CAIT Kearns 12/27/2019 E03.9 Hypothyroidism, unspecified CAIT Contreras 12/27/2019 I10 Essential (primary) hypertension CAIT Kearns 12/27/2019 F31.9 Bipolar disorder, unspecified CAIT Marrero 12/27/2019 E55.9 Vitamin D deficiency, unspecifie d CAIT Kearns 12/15/2019 S00.83xA Contusion of other part of head, initial encounter CAIT Kearns 12/15/2019 Y92.22 [facility] of occurrence of the external cause CAIT Kearns 12/15/2019 R29.6 Repeated falls CAIT Kearns 12/05/2019 C44.311 Basal cell carcinoma of skin of nose Temitope Murillo D.O. Plan of Treatment Future Appointment(s):* 07/03/2020 9:20 am - CAIT Kearns at [facility] Functional Status Description No Information Available Mental Status Description No Information Available Referrals Refer to Reason for Referral Status Appt Date [facility] 79 year old fema le with frequent falls, who is amenable to starting to use a cane. Please eval and treat. Sent [address] [place] [address] [phone] Jose Benton MD 79 year old female with recu rrent falls, with concern being raised for a cardiogenic cause. Please eval and treat. [facility] [address] [place] [address] [phone]
--- OUTSIDE RECORDS SUMMARY | 2020-07-11 06:50 | CCD | Continuity of Care Document ---
Author Author Rachel RODRIGUES Organization Unknown Address [address] [place] [address] 6 [address] [place] [address] Phone [phone] Care Team Providers Care Tool Room Machinist Name Role Phone Temitope Murillo D.O. AUTM Chapincito Hardy MD AUTM [phone] [facility] AUTM [phone] Jose Benton MD AUTM [phone] [facility] AUTM [phone] Problems Active Problems Provider Date Moderate recurrent [...] mouth every day 90tabs Brooklyn KlineO. 11/21/2018 Amphetamine-Dextroamphetamine 10mg Tablets one tablet by mouth daily istop [id number] Unknown [place] Carbonate 150mg Capsules 1 cap by mouth [...] Tablet By Mouth Twice A Day Unknown [place] Carbonate 300mg Capsules Take One Capsule By [...] F O2 % BldC Oximetry 97 % [place] Body Weight 100 lb 04/02/2020 8:13am BP Systolic 128 mmHg BP Diastolic 80 mmHg Height 59.6 inches 4'11.60" Weight 150.50 lb BMI (Body Mass Index) 29.8 kg/m2 Heart Rate 89 /min Respiratory Rate 16 /min Body Temperature 97.6 F O2 % BldC Oximetry 96 % [place] Body Weight 100 lb Results Test Acquired Date Facility Test Result H/L Range Note CBC With Differential 05/02/2020 [facility] Outpatient Nirali tom (Registration) [address] [place] [address] [phone] White Blood Count 9.5 10 Normal 4.0-10.0 [...] 36.0-66.0 Lymph % 25.2 % Normal 24.0-44.0 [place] % 10.0 % High 0.0-5.0 Eos % 3.7 % High 0.0-3.0 Baso % 1.0 % Normal 0.0-1.0 Immature Granulocyte % 0.3 % Normal 0-3.0 Nucleated Red Blood Cell % 0.0 % Normal 0-0 Neutrophils # 5.7 10 Normal 1.5-8.5 Lymph # 2.4 10 Normal 1.5-5.0 [place] # 1.0 10 High 0.0-0.8 Eos # 0.4 10 Normal 0.0-0.5 Baso # 0.1 10 Normal 0.0-0.2 Retic (Reticulocyte Count) 05/02/2020 [facility] Outpatien t Testing (Registration) [address] [place] [address] [phone] Reticulocyte % 1.2 % Normal 0.5-1.5 Reticulocyte # 46.5 10 Normal 17-77 Retic Hemoglobin Equivalent 35.5 pg Normal 24-36 Direct Ruth 05/02/2020 [facility] Outpatient Testi ng (Registration) [address] [place] [address] [phone] Wero Result Calc NEGATIVE Normal Laboratory test finding 05/02/2020 [facility] Outpatient T esting (Registration) [address] [place] [address] [phone] Haptoglobin 194 mg/dL Normal 42-346 1 Comprehensive Metabolic Profil 05/02/2020 [facility] Outpa tient Testing (Registration) [address] [place] [address] [phone] Glucose, Fasting 75 mg/dL Normal 70-100 Blood Urea Nitrogen 14 mg/dL Normal 7-18 Creatinine For GFR 1.11 mg/dL Normal 0.55-1.30 Glomerular Filtration Rate 50.6 Normal >39 2 Sodium Level 142 mEq/L Normal 136-145 Potassium [...] 1.1 Low 1.2-2.2 Laboratory test finding 05/02/2020 [facility] Outpatient T esting (Registration) [address] [place] [address] [phone] LDH Lactate Dehydrogenase 210 U/L Normal 84-246 Total Iron Binding Capacit 05/02/2020 [facility] Outpatien t Testing (Registration) [address] [place] [address] [phone] Iron (Fe) 106 g/dL Normal 50-170 Total Iron Binding Capacity 376 g/dL Normal 250-450 Percent Saturation 28.2 % Normal 13.2-45.0 Immunotyping (Immunofixation) Serum (If 05/02/2020 [facility] Outpatient Testing (Registration) [address] [place] [address] [phone] It Serum Interpretation SEE COMMENT Normal 3 Its Pathologist Review REV'D BY O ADJAP <SEE NOTE> Normal 4 Serum Protein Electrophoresis 05/02/2020 [facility] Outpat ient Testing (Registration) [address] [place] [address] [phone] Albumin % 56.7 % Normal 55.8-66.1 Onnqv-8-Ifhluifi % 5.1 % High 2.9-4.9 Xbgok-0-Epekyersk % 12.7 % High 7.1-11.8 Msgl-8-Ojhlkvudj % 7.3 % High 4.7-7.2 Xvto-2-Xvadrkqkt % 7.2 % High 3.2-6.5 Gamma Globulin % 11.0 % Low 11.1-18.8 Albumin 4.08 GM/DL Normal 3.29-5.55 Ptftd-7-Ansppwuhe 0.37 GM/DL Normal 0.17-0.41 Fftyu-0-Bjyieqobw 0.91 GM/DL Normal 0.42-0.99 Glyc-9-Ldbpkhysi 0.53 GM/DL Normal 0.28-0.60 Rzdl-7-Adxuxsajw 0.52 GM/DL Normal 0.19-0.55 Gamma Globulins 0.79 GM/DL Normal 0.65-1.58 Total Protein 7.2 GM/DL Normal 6.4-8.2 Spep Interpretation SEE COMMENT Normal 5 Spep Pathologist Review REV'D BY O BETHANIEAP <SEE NOTE> Normal 6 Laboratory test finding 05/02/2020 [facility] Outpatient T esting (Registration) [address] [place] [address] [phone] Ferritin 72 NG/ML Normal 8-252 Laboratory test finding 02/27/2020 [facility] Outpatient T esting (Registration) [address] [place] [address] [phone] Magnesium Level 2.9 mg/dL High 1.8-2.4 7 NT-Pro BNP 140 pg/mL Normal <450 8 Thyroid Stimulating Hormone 1.080 uIU/ML Normal 0.358-3.740 9 Comprehensive Metabolic Profil 02/27/2020 [facility] Outpa tient Testing (Registration) [address] [place] [address] [phone] Glucose, Fasting 86 mg/dL Normal 70-100 Blood [...] Ratio 1.1 Low 1.2-2.2 CBC With Differential 02/27/2020 [facility] Outpatient Nirali ting (Registration) [address] [place] [address] [phone] White Blood Count 8.8 10 Normal 4.0-10.0 [...] 36.0-66.0 Lymph % 28.9 % Normal 24.0-44.0 [place] % 10.9 % High 0.0-5.0 Eos % 2.8 % Normal 0.0-3.0 Baso % 1.1 % High 0.0-1.0 Immature Granulocyte % 0.2 % Normal 0-3.0 Nucleated Red Blood Cell % 0.0 % Normal 0-0 Neutrophils # 4.9 10 Normal 1.5-8.5 Lymph # 2.5 10 Normal 1.5-5.0 [place] # 1.0 10 High 0.0-0.8 Eos # 0.3 10 Normal 0.0-0.5 Baso # 0.1 10 Normal 0.0-0.2 CBC With Differential 12/21/2019 [facility] Outpatient Nirali tom (Registration) [address] [place], [place] [id number] [phone] White Blood Count 8.5 10 Normal 4.0-10.0 [...] 36.0-66.0 Lymph % 38.6 % Normal 24.0-44.0 [place] % 10.2 % High 0.0-5.0 Eos % 2.0 % Normal 0.0-3.0 Baso % 0.9 % Normal 0.0-1.0 Immature Granulocyte % 0.2 % Normal 0-3.0 Nucleated Red Blood Cell % 0.0 % Normal 0-0 Neutrophils # 4.1 10 Normal 1.5-8.5 Lymph # 3.3 10 Normal 1.5-5.0 [place] # 0.9 10 High 0.0-0.8 Eos # 0.2 10 Normal 0.0-0.5 Baso # 0.1 10 Normal 0.0-0.2 Comprehensive Metabolic Profil 12/21/2019 [facility] Outpa tient Testing (Registration) [address] [place] [address] [phone] Glucose, Fasting 95 mg/dL Normal 70-100 Blood Urea Nitrogen 25 mg/dL High 7-18 Creatinine For GFR 1.42 mg/dL High 0.55-1.30 Glomerular Filtration Rate 38.1 Low >39 1 1 Sodium Level 143 mEq/L Normal 136-145 Potassium [...] Ratio 1.1 Low 1.2-2.2 FT4&TSH Panel 12/21/2019 [facility] Outpatient Testi ng (Registration) [address] [place] [address] [phone] Thyroid Stimulating Hormone 2.740 uIU/ML Normal 0. 358-3.740 Free T4 1.03 ng/dL Normal 0.76-1.46 Laboratory test finding 12/21/2019 [facility] Outpatient T esting (Registration) [address] [place] [address] [phone] Total 25(Oh) Vitamin D 59.2 NG/ML Normal 30.0-100. 0 1 Performed at: RN - [facility] [address] [id number] Asphalt Coater: Geovanna Stroud MD, Phone: [phone] 2 Units are mL/min/1.73 m2 Chronic Kidney Disease Staging per NKF: Stage I & II GFR >=60 Normal to Mildly Decreased Stage III GFR 30-59 Moderately Decreased Stage IV GFR 15-29 Severely Decreased Stage V GFR <15 Very Little GFR Left ESRD GFR <15 on CHILD NUTRITION DIRECTOR 3 NO MONOCLONAL BANDS NOTED. 4 REV'D BY O AMINTA 5 NO M-SPIKE(S)NOTED. 6 REV'D BY O ADJAPONG 7 FAX TO [phone] FAX TO [phone] FAX TO [phone] FAX TO [phone] FAX TO [phone] FAX TO [phone] 10 Units are mL/min/1.73 m2 Chronic Kidney Disease Staging per NKF: Stage I & II GFR >=60 Normal to Mildly Decreased Stage III GFR 30-59 Moderately Decreased Stage IV GFR 15-29 Severely Decreased Stage V GFR <15 Very Little GFR Left ESRD GFR <15 on CHILD NUTRITION DIRECTOR 11 Units are mL/min/1.73 m2 Chronic Kidney Disease Staging per NKF: Stage I & II GFR >=60 Normal to Mildly Decreased Stage III GFR 30-59 Moderately Decreased Stage IV GFR 15-29 Severely Decreased Stage V GFR <15 Very Little GFR Left ESRD GFR <15 on CHILD NUTRITION DIRECTOR Procedures Description No Information Available Medical Devices Description No Information Available Encounters Type Date Location Provider Dx Diagnosis Office Visit 04/02/2020 8:20a [facility] Temitope Murillo D.O. 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, thoracic region Z88.1 Allergy status to other anti biotic agents D64.9 Anemia, unspecified M25.552 Pain in left hip Office Visit 01/15/2020 3:40p [facility] CAIT Romero Z48.02 Encounter for removal of sut ures Office Visit 12/27/2019 8:00a [facility] CAIT Kearns R29.6 Repeated falls E03.9 Hypothyroidism, unspecified I10 Essential (primary) hyperten gary F31.9 Bipolar disorder, unspecifie d E55.9 Vitamin D deficiency, unspec ified Office Visit 12/15/2019 2:00p [facility] CAIT Kearns S00.83xA Contusion of other part of h ead, initial encounter Y92.22 [facility] R29.6 Repeated falls Office Visit 12/05/2019 9:20a [facility] Araceli Mason.OLm C44.311 Basal cell carcinoma of skin of nose Assessments Date Code Description Provider 05/07/2020 M54.5 Low back pain Kirk Rodrigues , CAIT 05/07/2020 R53.1 Weakness CAIT Kearns 05/07/2020 R25.1 [...] disease, or unspecified chronic kidney disease Araceli iPtt.O. 04/02/2020 Z88.2 Allergy status to sulfonamides Araceli Kraft.O. 04/02/2020 Z79.899 Other [facility] (current) drug t herapy Brooklyn KlineOLm 04/02/2020 Z79.82 [facility] (current) use of aspir in Araceli Kline.O. 04/02/2020 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, thoracic joshua on Araceli Kline.OLm 04/02/2020 Z88.1 Allergy status to other antibiot ic agents Temitope Murillo D.O. 04/02/2020 D64.9 Anemia, unspecified Brooklyn LouiseOLm 04/02/2020 M25.552 Pain in left hip Temitope martinez D.O. 01/15/2020 Z48.02 Encounter for removal of sutures CAIT Romero 12/27/2019 R29.6 Repeated falls CAIT Kearns 12/27/2019 E03.9 Hypothyroidism, unspecified CAIT Contreras 12/27/2019 I10 Essential (primary) hypertension CAIT Kearns 12/27/2019 F31.9 Bipolar disorder, unspecified St even CAIT Mahajan 12/27/2019 E55.9 Vitamin D deficiency, unspecifie d CAIT [place] 12/15/2019 S00.83xA Contusion of other part of head, initial encounter CAIT Kearns 12/15/2019 Y92.22 [facility] occurrence of the external cause CAIT Kearns 12/15/2019 R29.6 Repeated falls CAIT Kearns 12/05/2019 C44.311 Basal cell carcinoma of skin of nose Temitope Murillo D.O. Plan of Treatment Future Appointment(s):* 05/14/2020 8:40 am - CAIT Kearns at [facility] * 07/03/2020 9:20 am - CAIT Kearns at [facility] 05/07/2020 - CAIT Kearns* M54.5 Low back pain* Comments:* For the time being, continue your current care with heat, and we call if not improved by Wednesday. * Follow up:* next week with me. * R53.1 Weakness* New Labs:* FT4&TSH Panel, Ordered: 05/07/20 * Ua Routine, Ordered: 05/07/20 * Urine Culture, Ordered: 05/07/20 * Comments:* Unsure of the cause currently. We will check baseline labs and a urine sample. I'll let you know of those results and further treatment plans. * R25.1 Tremor, unspecified* New Labs:* Vitamin B12 & Folate, Ordered: 05/07/20 * Donora Level, Ordered: 05/07/20 * Comments:* Unsure of the cause currently. * R60.9 Edema, unspecified* Comments:* Stable. Continue with your furosemide as prescribed. * R32 Unspecified urinary incontinence * M25.552 Pain in left hip* Comments:* [...] a cane. Please eval and treat. Sent [address] [place] [address] [phone] Jose Benton MD 79 year old female with recu rrent falls, with concern being raised for a cardiogenic cause. Please eval and treat. Sent [address] [place] [address] [phone]
--- OUTSIDE RECORDS SUMMARY | 2020-07-11 06:50 | CCD | Continuity of Care Document ---
Author Author Rachel MURILLO D.O. Organization Unknown Address [address] [place] [address] Phone [phone] Care Team Providers Care Picture Copyist Name Role Phone Temitope Murillo D.O. AUTM Chapincito Hardy MD AUTM [phone] [facility] AUTM [phone] Jose Benton MD AUTM [phone] [facility] AUTM [phone] Problems Active Problems Provider Date Moderate recurrent [...] 1 as directed Dx: thoracic kyphosis. M40.04 Temitpoe Murillo D.O. Furosemide 40mg Tablets 1 by mouth every day as needed for swelling. 90tabs R60.9 Temitope Murillo D.O. 01/02/2019 Finger Splint Small Misc Finger splint of right littler finger of DIP with finger in full extension. stax- finger splint 1units M20.011 Temitope Murillo D.O. 12/23/2018 Amlodipine Besylate 10mg Tablets take one tablet by mouth every day 90tabs Brooklyn KlineO. 11/21/2018 [place] Carbonate 150mg Capsules 1 cap by mouth in the morning Unknown Latuda 40mg Tablets take one tablet by mouth daily. Unknown Amphetamine-Dextroamphetamine 30mg Tablets one tablet by mouth daily istop [id number] Unknown Aspir-[address] 1 by [...] Tablet By Mouth Twice A Day Unknown [place] Carbonate 300mg Capsules Take One Capsule By [...] F O2 % BldC Oximetry 96 % [place] Body Weight 100 lb 01/15/2020 3:25pm BP Systolic 134 mmHg BP Diastolic 74 mmHg Height 59.6 inches 4'11.60" Heart Rate 79 /min Respiratory Rate 16 /min Body Temperature 98.2 F O2 % BldC Oximetry 96 % [place] Body Weight 100 lb Results Test Acquired Date Facility Test Result H/L Range Note CBC With Differential 05/02/2020 [facility] Outpatient Nirali tom (Registration) [address] [place], [place] [id number] [phone] White Blood Count 9.5 10 Normal 4.0-10.0 [...] 36.0-66.0 Lymph % 25.2 % Normal 24.0-44.0 [place] % 10.0 % High 0.0-5.0 Eos % 3.7 % High 0.0-3.0 Baso % 1.0 % Normal 0.0-1.0 Immature Granulocyte % 0.3 % Normal 0-3.0 Nucleated Red Blood Cell % 0.0 % Normal 0-0 Neutrophils # 5.7 10 Normal 1.5-8.5 Lymph # 2.4 10 Normal 1.5-5.0 [place] # 1.0 10 High 0.0-0.8 Eos # 0.4 10 Normal 0.0-0.5 Baso # 0.1 10 Normal 0.0-0.2 Retic (Reticulocyte Count) 05/02/2020 [facility] Outpatien t Testing (Registration) [address] [place] [address] [phone] Reticulocyte % 1.2 % Normal 0.5-1.5 Reticulocyte # 46.5 10 Normal 17-77 Retic Hemoglobin Equivalent 35.5 pg Normal 24-36 Direct Ruth 05/02/2020 [facility] Outpatient Testi ng (Registration) [address] [place] [address] [phone] Wero Result Calc NEGATIVE Normal Laboratory test finding 05/02/2020 [facility] Outpatient T esting (Registration) [address] [place] [address] [phone] Haptoglobin 194 mg/dL Normal 42-346 1 Comprehensive Metabolic Profil 05/02/2020 [facility] Outpa tient Testing (Registration) [address] [place] [address] [phone] Glucose, Fasting 75 mg/dL Normal 70-100 Blood [...] 1.1 Low 1.2-2.2 Laboratory test finding 05/02/2020 [facility] Outpatient T esting (Registration) [address] [place] [address] [phone] LDH Lactate Dehydrogenase 210 U/L Normal 84-246 Total Iron Binding Capacit 05/02/2020 [facility] Outpatien t Testing (Registration) [address] [place] [address] [phone] Iron (Fe) 106 g/dL Normal 50-170 Total Iron Binding Capacity 376 g/dL Normal 250-450 Percent Saturation 28.2 % Normal 13.2-45.0 Immunotyping (Immunofixation) Serum (If 05/02/2020 [facility] Outpatient Testing (Registration) [address] [place] [address] [phone] It Serum Interpretation SEE COMMENT Normal 3 Its Pathologist Review REV'D BY O ADJAP <SEE NOTE> Normal 4 Serum Protein Electrophoresis 05/02/2020 [facility] Outpat ient Testing (Registration) [address] [place] [address] [phone] Albumin % 56.7 % Normal 55.8-66.1 Dapro-9-Fnizcliu % 5.1 % High 2.9-4.9 Wzuyo-6-Obpefblwx % 12.7 % High 7.1-11.8 Dbvj-3-Oepdjyvax % 7.3 % High 4.7-7.2 Uekj-4-Lcopmnqzu % 7.2 % High 3.2-6.5 Gamma Globulin % 11.0 % Low 11.1-18.8 Albumin 4.08 GM/DL Normal 3.29-5.55 Qqoyu-6-Wguthokhd 0.37 GM/DL Normal 0.17-0.41 Qpiqm-4-Blvhldbbj 0.91 GM/DL Normal 0.42-0.99 Smpk-1-Uwwkozsig 0.53 GM/DL Normal 0.28-0.60 Nlog-2-Piglxokwd 0.52 GM/DL Normal 0.19-0.55 Gamma Globulins 0.79 GM/DL Normal 0.65-1.58 Total Protein 7.2 GM/DL Normal 6.4-8.2 Spep Interpretation SEE COMMENT Normal 5 Spep Pathologist Review REV'D BY O ADJAP <SEE NOTE> Normal 6 Laboratory test finding 05/02/2020 [facility] Outpatient T esting (Registration) [address] [place] [address] [phone] Ferritin 72 NG/ML Normal 8-252 Laboratory test finding 02/27/2020 [facility] Outpatient T esting (Registration) [address] [place] [address] [phone] Magnesium Level 2.9 mg/dL High 1.8-2.4 7 NT-Pro BNP 140 pg/mL Normal <450 8 Thyroid Stimulating Hormone 1.080 uIU/ML Normal 0.358-3.740 9 Comprehensive Metabolic Profil 02/27/2020 [facility] Outpa tient Testing (Registration) [address] [place] [address] [phone] Glucose, Fasting 86 mg/dL Normal 70-100 Blood [...] 1.1 Low 1.2-2.2 CBC With Differential 02/27/2020 [facility] Outpatient Nirali ting (Registration) [address] [place] [address] [phone] White Blood Count 8.8 10 Normal 4.0-10.0 [...] 36.0-66.0 Lymph % 28.9 % Normal 24.0-44.0 [place] % 10.9 % High 0.0-5.0 Eos % 2.8 % Normal 0.0-3.0 Baso % 1.1 % High 0.0-1.0 Immature Granulocyte % 0.2 % Normal 0-3.0 Nucleated Red Blood Cell % 0.0 % Normal 0-0 Neutrophils # 4.9 10 Normal 1.5-8.5 Lymph # 2.5 10 Normal 1.5-5.0 [place] # 1.0 10 High 0.0-0.8 Eos # 0.3 10 Normal 0.0-0.5 Baso # 0.1 10 Normal 0.0-0.2 CBC With Differential 12/21/2019 [facility] Outpatient Nirali tom (Registration) [address] [place], [place] [address] [phone] White Blood Count 8.5 10 Normal 4.0-10.0 [...] 36.0-66.0 Lymph % 38.6 % Normal 24.0-44.0 [place] % 10.2 % High 0.0-5.0 Eos % 2.0 % Normal 0.0-3.0 Baso % 0.9 % Normal 0.0-1.0 Immature Granulocyte % 0.2 % Normal 0-3.0 Nucleated Red Blood Cell % 0.0 % Normal 0-0 Neutrophils # 4.1 10 Normal 1.5-8.5 Lymph # 3.3 10 Normal 1.5-5.0 [place] # 0.9 10 High 0.0-0.8 Eos # 0.2 10 Normal 0.0-0.5 Baso # 0.1 10 Normal 0.0-0.2 Comprehensive Metabolic Profil 12/21/2019 [facility] Outpa tient Testing (Registration) [address] [place] [address] [phone] Glucose, Fasting 95 mg/dL Normal 70-100 Blood [...] Ratio 1.1 Low 1.2-2.2 FT4&TSH Panel 12/21/2019 [facility] Outpatient Testi ng (Registration) [address] [place] [address] [phone] Thyroid Stimulating Hormone 2.740 uIU/ML Normal 0. 358-3.740 Free T4 1.03 ng/dL Normal 0.76-1.46 Laboratory test finding 12/21/2019 [facility] Outpatient T esting (Registration) [address] [place] [address] [phone] Total 25(Oh) Vitamin D 59.2 NG/ML Normal 30.0-100. 0 1 Performed at: RN - [facility] [address] [id number] Drug Abuse Worker: Geovanna Stroud MD, Phone: [phone] 2 Units are mL/min/1.73 m2 Chronic Kidney Disease Staging per NKF: Stage I & II GFR >=60 Normal to Mildly Decreased Stage III GFR 30-59 Moderately Decreased Stage IV GFR 15-29 Severely Decreased Stage V GFR <15 Very Little GFR Left ESRD GFR <15 on FACILITATOR 3 NO MONOCLONAL BANDS NOTED. 4 REV'D BY O AMINTA 5 NO M-SPIKE(S)NOTED. 6 REV'D BY O ALEXONG 7 FAX TO [phone] FAX TO [phone] FAX TO [phone] FAX TO [phone] FAX TO [phone] FAX TO [phone] 10 Units are mL/min/1.73 m2 Chronic Kidney Disease Staging per NKF: Stage I & II GFR >=60 Normal to Mildly Decreased Stage III GFR 30-59 Moderately Decreased Stage IV GFR 15-29 Severely Decreased Stage V GFR <15 Very Little GFR Left ESRD GFR <15 on FACILITATOR 11 Units are mL/min/1.73 m2 Chronic Kidney Disease Staging per NKF: Stage I & II GFR >=60 Normal to Mildly Decreased Stage III GFR 30-59 Moderately Decreased Stage IV GFR 15-29 Severely Decreased Stage V GFR <15 Very Little GFR Left ESRD GFR <15 on FACILITATOR Procedures Description No Information Available Medical Devices [...] Allergy status to sulfonamid es 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 04/02/2020 Z79.899 Other long-term (current) drug t herapy Temitope Murillo D.O. 04/02/2020 Z79.82 planning rn (current) use of aspir in Temitope Murillo [...] head, initial encounter CAIT Kearns 12/15/2019 Y92.22 [facility] of occurrence of the external cause CAIT Kearns 12/15/2019 R29.6 Repeated falls CAIT Kearns 12/05/2019 C44.311 Basal cell carcinoma of skin of nose Temitope Murillo D.O. Plan of Treatment Future Appointment(s):* 07/03/2020 9:20 am - CAIT Kearns at [facility] Functional Status Description No Information Available Mental Status Description No Information Available Referrals Refer to Reason for Referral Status Appt Date [facility] 79 year old fema le with frequent falls, who is amenable to starting to use a cane. Please eval and treat. Sent [address] [place] [address] [phone] Jose Benton MD 79 year old female with recu rrent falls, with concern being raised for a cardiogenic cause. Please eval and treat. Sent [address] [place] [address] [phone]
--- OUTSIDE RECORDS SUMMARY | 2020-07-11 06:50 | CCD | Continuity of Care Document ---
Author Author Rachel SIERRA DPM Organization Unknown Address [address], [address] [place] [address] Phone [phone] Care Team Providers Care Bat Boy/Girl Name Role Phone Chidi VEGA, Temitope AUTM Problems Active Problems Provider Date Hammer toe [...] Times A Day For 10 Days Unknown [place] Carbonate 300mg Capsules Take One Capsule By Mouth Twice A Day Unknown Levothyroxine Sodium 50mcg Tablets Take One Tablet By Mouth Once A Day In The Morning On An Empty Stomach Unknown Vitamin D (Ergocalciferol) [id number] Capsules Take 1 Capsule By Mouth Once [...] Provider Dx Diagnosis Office Visit 04/10/2020 11:00a [facility] Renny Sierra DPM M20.40 Other hammer toe(s) (acquired), unspecified foot B35.1 Tinea unguium L84 Corns and callosities Office Visit 01/08/2020 1:45p [facility] Renny Sierra DPM B35.1 Tinea unguium Office Visit 10/30/2019 1:45p [facility] Renny Sierra DPM M20.41 Other hammer toe(s) (acquired), right foot L84 Corns and callosities L60.0 Ingrowing nail Assessments Date Code Description Provider 04/10/2020 M20.40 Other hammer toe(s) (acquired), unspecified foot Renny Sierra DPM 04/10/2020 B35.1 Tinea unguium Renny Sierra DPM 04/10/2020 L84 Corns and callosities Renny Sierra, DEANM 01/08/2020 B35.1 Tinea unguium Renny Sierra, ZAIRA 10/30/2019 M20.41 Other hammer toe(s) (acquired), right foot Renny Sierra, ZAIRA 10/30/2019 L84 Corns and callosities Renny Sierra, DEANM 10/30/2019 L60.0 Ingrowing nail Renny Sierra DPM Plan of Treatment Future Appointment(s):* 06/19/2020 11:15 am - Renny Sierra DPM at [facility] Functional Status Description No Information Available Mental Status Description No Information Available Referrals Description No Information Available
--- OUTSIDE RECORDS SUMMARY | 2020-07-11 06:50 | CCD | Continuity of Care Document ---
Author Author Rachel RAY Organization Unknown Address [address] [place] [address] [address] [place] [address] Phone [phone] Care Team Providers Care Service Rig Operator Name Role Phone Temitope Murillo D.O. AUTM Chapincito Hardy MD AUTM [phone] [facility] AUTM [phone] Jose Benton MD AUTM [phone] [facility] AUTM [phone] Problems Active Problems Provider Date Moderate recurrent [...] Tablets one tablet by mouth daily istop [id number] Unknown [place] Carbonate 150mg Capsules 1 cap by mouth [...] Tablet By Mouth Twice A Day Unknown [place] Carbonate 300mg Capsules Take One Capsule By [...] F O2 % BldC Oximetry 97 % Partridge Body Weight 100 lb 04/02/2020 8:13am BP Systolic 128 mmHg BP Diastolic 80 mmHg Height 59.6 inches 4'11.60" Weight 150.50 lb BMI (Body Mass Index) 29.8 kg/m2 Heart Rate 89 /min Respiratory Rate 16 /min Body Temperature 97.6 F O2 % BldC Oximetry 96 % Partridge Body Weight 100 lb Results Test Acquired Date Facility Test Result H/L Range Note CBC With Differential 05/02/2020 [facility] Outpatient Nirali tom (Registration) [address] [place] [address] [phone] White Blood Count 9.5 10 Normal 4.0-10.0 [...] 36.0-66.0 Lymph % 25.2 % Normal 24.0-44.0 Sullivan % 10.0 % High 0.0-5.0 Eos % 3.7 % High 0.0-3.0 Baso % 1.0 % Normal 0.0-1.0 Immature Granulocyte % 0.3 % Normal 0-3.0 Nucleated Red Blood Cell % 0.0 % Normal 0-0 Neutrophils # 5.7 10 Normal 1.5-8.5 Lymph # 2.4 10 Normal 1.5-5.0 Sullivan # 1.0 10 High 0.0-0.8 Eos # 0.4 10 Normal 0.0-0.5 Baso # 0.1 10 Normal 0.0-0.2 Retic (Reticulocyte Count) 05/02/2020 [facility] Outpatien t Testing (Registration) [address] [place] [address] [phone] Reticulocyte % 1.2 % Normal 0.5-1.5 Reticulocyte # 46.5 10 Normal 17-77 Retic Hemoglobin Equivalent 35.5 pg Normal 24-36 Direct Ruth 05/02/2020 [facility] Outpatient Testi ng (Registration) [address] [place] [address] [phone] Wero Result Calc NEGATIVE Normal Laboratory test finding 05/02/2020 [facility] Outpatient T esting (Registration) [address] [place] [address] [phone] Haptoglobin 194 mg/dL Normal 42-346 1 Comprehensive Metabolic Profil 05/02/2020 [facility] Outpa tient Testing (Registration) [address] [place] [address] [phone] Glucose, Fasting 75 mg/dL Normal 70-100 Blood [...] 1.1 Low 1.2-2.2 Laboratory test finding 05/02/2020 [facility] Outpatient T esting (Registration) [address] [place] [address] [phone] LDH Lactate Dehydrogenase 210 U/L Normal 84-246 Total Iron Binding Capacit 05/02/2020 [facility] Outpatien t Testing (Registration) [address] [place] [address] [phone] Iron (Fe) 106 g/dL Normal 50-170 Total Iron Binding Capacity 376 g/dL Normal 250-450 Percent Saturation 28.2 % Normal 13.2-45.0 Immunotyping (Immunofixation) Serum (If 05/02/2020 [facility] Outpatient Testing (Registration) [address] [place] [address] [phone] It Serum Interpretation SEE COMMENT Normal 3 Its Pathologist Review REV'D BY O ADJAP <SEE NOTE> Normal 4 Serum Protein Electrophoresis 05/02/2020 [facility] Outpat ient Testing (Registration) [address] [place] [address] [phone] Albumin % 56.7 % Normal 55.8-66.1 Ccmdt-5-Vkpfpykj % 5.1 % High 2.9-4.9 Optsd-2-Hzxieiunz % 12.7 % High 7.1-11.8 Cixg-5-Clsoubatq % 7.3 % High 4.7-7.2 Rifw-9-Hartrslps % 7.2 % High 3.2-6.5 Gamma Globulin % 11.0 % Low 11.1-18.8 Albumin 4.08 GM/DL Normal 3.29-5.55 Auauk-1-Rbgjpwift 0.37 GM/DL Normal 0.17-0.41 Jmbcp-5-Yncxkizcb 0.91 GM/DL Normal 0.42-0.99 Dyrm-7-Gzxbsambb 0.53 GM/DL Normal 0.28-0.60 Mudd-0-Nrhifrvpq 0.52 GM/DL Normal 0.19-0.55 Gamma Globulins 0.79 GM/DL Normal 0.65-1.58 Total Protein 7.2 GM/DL Normal 6.4-8.2 Spep Interpretation SEE COMMENT Normal 5 Spep Pathologist Review REV'D BY O BETHANIEAP <SEE NOTE> Normal 6 Laboratory test finding 05/02/2020 [facility] Outpatient T esting (Registration) [address] [place] [address] [phone] Ferritin 72 NG/ML Normal 8-252 Laboratory test finding 02/27/2020 [facility] Outpatient T esting (Registration) [address] [place] [address] [phone] Magnesium Level 2.9 mg/dL High 1.8-2.4 7 NT-Pro BNP 140 pg/mL Normal <450 8 Thyroid Stimulating Hormone 1.080 uIU/ML Normal 0.358-3.740 9 Comprehensive Metabolic Profil 02/27/2020 [facility] Outpa tient Testing (Registration) [address] [place] [address] [phone] Glucose, Fasting 86 mg/dL Normal 70-100 Blood [...] 1.1 Low 1.2-2.2 CBC With Differential 02/27/2020 [facility] Outpatient Nirali ting (Registration) [address] [place] [address] [phone] White Blood Count 8.8 10 Normal 4.0-10.0 [...] 36.0-66.0 Lymph % 28.9 % Normal 24.0-44.0 Sullivan % 10.9 % High 0.0-5.0 Eos % 2.8 % Normal 0.0-3.0 Baso % 1.1 % High 0.0-1.0 Immature Granulocyte % 0.2 % Normal 0-3.0 Nucleated Red Blood Cell % 0.0 % Normal 0-0 Neutrophils # 4.9 10 Normal 1.5-8.5 Lymph # 2.5 10 Normal 1.5-5.0 Sullivan # 1.0 10 High 0.0-0.8 Eos # 0.3 10 Normal 0.0-0.5 Baso # 0.1 10 Normal 0.0-0.2 CBC With Differential 12/21/2019 [facility] Outpatient Nirali tom (Registration) [address] [place], [place] [id number] [phone] White Blood Count 8.5 10 Normal 4.0-10.0 [...] 36.0-66.0 Lymph % 38.6 % Normal 24.0-44.0 Sullivan % 10.2 % High 0.0-5.0 Eos % 2.0 % Normal 0.0-3.0 Baso % 0.9 % Normal 0.0-1.0 Immature Granulocyte % 0.2 % Normal 0-3.0 Nucleated Red Blood Cell % 0.0 % Normal 0-0 Neutrophils # 4.1 10 Normal 1.5-8.5 Lymph # 3.3 10 Normal 1.5-5.0 Sullivan # 0.9 10 High 0.0-0.8 Eos # 0.2 10 Normal 0.0-0.5 Baso # 0.1 10 Normal 0.0-0.2 Comprehensive Metabolic Profil 12/21/2019 [facility] Outpa tient Testing (Registration) [address] [place] [address] [phone] Glucose, Fasting 95 mg/dL Normal 70-100 Blood [...] Ratio 1.1 Low 1.2-2.2 FT4&TSH Panel 12/21/2019 [facility] Outpatient Testi ng (Registration) [address] [place] [address] [phone] Thyroid Stimulating Hormone 2.740 uIU/ML Normal 0. 358-3.740 Free T4 1.03 ng/dL Normal 0.76-1.46 Laboratory test finding 12/21/2019 [facility] Outpatient T esting (Registration) [address] [place] [address] [phone] Total 25(Oh) Vitamin D 59.2 NG/ML Normal 30.0-100. 0 1 Performed at: RN - [facility] [address] [id number] Brake Holder: Geovanna Stroud MD, Phone: [phone] Units are mL/min/1.73 m2 Chronic Kidney Disease Staging per NKF: Stage I & II GFR >=60 Normal to Mildly Decreased Stage III GFR 30-59 Moderately Decreased Stage IV GFR 15-29 Severely Decreased Stage V GFR <15 Very Little GFR Left ESRD GFR <15 on ELECTRONIC COMPONENTS ASSEMBLER 3 NO MONOCLONAL BANDS NOTED. 4 REV'D BY Efrem LEMOS 5 NO M-SPIKE(S)NOTED. 6 REV'D BY O AMINTA 7 FAX TO [phone] FAX TO [phone] FAX TO [phone] FAX TO [phone] FAX TO [phone] FAX TO [phone] 10 Units are mL/min/1.73 m2 Chronic Kidney Disease Staging per NKF: Stage I & II GFR >=60 Normal to Mildly Decreased Stage III GFR 30-59 Moderately Decreased Stage IV GFR 15-29 Severely Decreased Stage V GFR <15 Very Little GFR Left ESRD GFR <15 on ELECTRONIC COMPONENTS ASSEMBLER 11 Units are mL/min/1.73 m2 Chronic Kidney Disease Staging per NKF: Stage I & II GFR >=60 Normal to Mildly Decreased Stage III GFR 30-59 Moderately Decreased Stage IV GFR 15-29 Severely Decreased Stage V GFR <15 Very Little GFR Left ESRD GFR <15 on ELECTRONIC COMPONENTS ASSEMBLER Procedures Description No Information Available Medical Devices Description No Information Available Encounters Type Date Location Provider Dx Diagnosis Office Visit 05/07/2020 3:20p [facility] CAIT Kearns M54.5 Low back pain R53.1 Weakness R25.1 Tremor, unspecified R60.9 Edema, unspecified R32 Unspecified urinary incontin ence M25.552 Pain in left hip Office Visit 04/02/2020 8:20a [facility] Temitope Murillo D.O. 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, thoracic region Z88.1 Allergy status to other anti biotic agents D64.9 Anemia, unspecified M25.552 Pain in left hip Office Visit 01/15/2020 3:40p [facility] CAIT Romero Z48.02 Encounter for removal of sut ures Office Visit 12/27/2019 8:00a [facility] CAIT Kearns R29.6 Repeated falls E03.9 Hypothyroidism, unspecified I10 Essential (primary) hyperten gary F31.9 Bipolar disorder, unspecifie d E55.9 Vitamin D deficiency, unspec ified Office Visit 12/15/2019 2:00p [facility] CAIT Kearns S00.83xA Contusion of other part of h ead, initial encounter Y92.22 [facility] R29.6 Repeated falls Office Visit 12/05/2019 9:20a [facility] Araceli Kline.OLm C44.311 Basal cell carcinoma of skin of nose Assessments Date Code Description Provider 05/07/2020 M54.5 Low back pain CAIT Kearns 05/07/2020 R53.1 Weakness CAIT Kearns 05/07/2020 R25.1 Tremor, unspecified CAIT Nichols 05/07/2020 R60.9 Edema, unspecified CAIT Curiel 05/07/2020 R32 Unspecified urinary incontinence CAIT Kearns 05/07/2020 M25.552 Pain in left hip CAIT Finn 04/02/2020 E03.9 Hypothyroidism, unspecified Araceli Kline.O. 04/02/2020 F31.9 Bipolar disorder, unspecified Araceli Valera.O. 04/02/2020 E55.9 Vitamin D deficiency, unspecifie d Araceli Kline.O. 04/02/2020 M54.17 Radiculopathy, lumbosacral regio n Araceli Kline.OLm 04/02/2020 I12.9 Hypertensive chronic kidney disease with stage 1 through stage 4 chronic kidney disease, or unspecified chronic kidney disease Araceli Pitt.OLm 04/02/2020 Z88.2 Allergy status to sulfonamides [place] KraftOLm 04/02/2020 Z79.899 Other long-term (current) drug t herapy Araceli Kline.OLm 04/02/2020 Z79.82 assistant terminal manager (current) use of aspir in Araceli Kline.OLm 04/02/2020 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, thoracic joshua on Temitope Murillo D.OLm 04/02/2020 Z88.1 Allergy status to other antibiot ic agents Araceli Kline.OLm 04/02/2020 D64.9 Anemia, unspecified Temitope Crowley D.OLm 04/02/2020 M25.552 Pain in left hip Temitope martinez D.O. 01/15/2020 Z48.02 Encounter for removal of sutures CAIT Romero 12/27/2019 R29.6 Repeated falls CAIT Kearns 12/27/2019 E03.9 Hypothyroidism, unspecified CAIT Contreras 12/27/2019 I10 Essential (primary) hypertension CAIT Kearns 12/27/2019 F31.9 Bipolar disorder, unspecified CAIT Marrero 12/27/2019 E55.9 Vitamin D deficiency, unspecifie CAIT Bruce 12/15/2019 S00.83xA Contusion of other part of head, initial encounter CAIT Kearns 12/15/2019 Y92.[facility] occurrence of the external cause CAIT Kearns 12/15/2019 R29.6 Repeated falls CAIT Kearns 12/05/2019 C44.311 Basal cell carcinoma of skin of nose Temitope Murillo D.O. Plan of Treatment Future Appointment(s):* 05/14/2020 8:40 am - CAIT Kearns at [facility] * 07/03/2020 9:20 am - CAIT Kaerns at [facility] 05/07/2020 - CAIT Kearns* M54.5 Low back [...] Vitamin B12 & Folate, Ordered: 05/07/20 * [place] Level, Ordered: 05/07/20 * Comments:* Unsure of [...] to Reason for Referral Status Appt Date [facility] 79 year old fema le with frequent falls, who is amenable to starting to use a cane. Please eval and treat. Sent [address] [place] [address] [phone] Jose Benton MD 79 year old female with recu rrent falls, with concern being raised for a cardiogenic cause. Please eval and treat. Sent [address] [place] [address] [phone]
--- OUTSIDE RECORDS SUMMARY | 2020-07-11 06:52 | CCD ---
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 Name Role Phone Andrea NICHOLSON DPM Unavailable Unavailable Andrea NICHOLSON DPM Unavailable Unavailable Andrea NICHOLSON DPM Unavailable Unavailable Andrea NICHOLSON DPM Unavailable Unavailable Andrea NICHOLSON DPM Unavailable Unavailable Andrea NICHOLSON DPM Unavailable Unavailable Andrea NICHOLSON DPM Unavailable Unavailable Andrea NICHOLSON DPM Unavailable Unavailable Andrea NICHOLSON DPM Unavailable Unavailable Andrea NICHOLSON DPM Unavailable Unavailable Andrea NCIHOLSON DPM Unavailable Unavailable Andrea NICHOLSON DPM Unavailable Unavailable Andrea NICHOLSON DPM Unavailable Unavailable Andrea NICHOLSON DPM Unavailable Unavailable Andrea NICHOLSON DPM Unavailable Unavailable Andrea NICHOLSON DPM Unavailable Unavailable Andrea NICHOLSON DPM Unavailable Unavailable Andrea NICHOLSON DPM Unavailable Unavailable MAJAK, R ALEX DPM Unavailable Unavailable MAJAK, R ALEX DPM Unavailable Unavailable MAJAK, R ALEX DPM Unavailable Unavailable MAJAK, R ALEX DPM Unavailable Unavailable MAJAK, R ALEX DPM Unavailable Unavailable MAJAK, R ALEX DPM Unavailable Unavailable MAJAK, R ALEX DPM Unavailable Unavailable MAJAK, R ALEX DPM Unavailable Unavailable MAJAK, R ALEX DPM Unavailable Unavailable MAJAK, R ALEX DPM Unavailable Unavailable MAJAK, R ALEX DPM Unavailable Unavailable MAJAK, R ALEX DPM Unavailable Unavailable BYRON, BARBER MD Unavailable Unavailable BYRON, BARBER MD Unavailable Unavailable BYRON, BARBER MD Unavailable Unavailable BYRON, BARBER MD Unavailable Unavailable BYRON, BARBER MD Unavailable Unavailable BYRON, BARBER MD Unavailable Unavailable BYRON, BARBER MD Unavailable Unavailable BYRON, BARBER MD Unavailable Unavailable BYRON, BARBER MD Unavailable Unavailable BYRON, BARBER MD Unavailable Unavailable BYRON, BARBER MD Unavailable Unavailable BYRON, BARBER MD Unavailable Unavailable BYRON, BARBER MD Unavailable Unavailable BYRON, BARBER MD Unavailable Unavailable BYRON, BARBER MD Unavailable Unavailable BYRON, BARBER MD Unavailable Unavailable BYRON, BARBER MD Unavailable Unavailable BYRON, BARBER MD Unavailable Unavailable BYRON, BARBER MD Unavailable Unavailable BYRON, BARBER MD Unavailable Unavailable BYRON, BARBER MD Unavailable Unavailable BYRON, BARBER MD Unavailable Unavailable BYRON, BARBER MD Unavailable Unavailable BYRON, BARBER MD Unavailable Unavailable BYRON, BARBER MD Unavailable Unavailable BYRON, BARBER MD Unavailable Unavailable BYRON, BARBER MD Unavailable Unavailable BYRON, BARBER MD Unavailable Unavailable BYRON, BARBER MD Unavailable Unavailable BYRON, BARBER MD Unavailable Unavailable BYRON, BARBER MD Unavailable Unavailable BYRON, BARBER MD Unavailable Unavailable BYRON, BARBER MD Unavailable Unavailable BYRON, BARBER MD Unavailable Unavailable BYRON, BARBER MD Unavailable Unavailable BYRON, BARBER MD Unavailable Unavailable BYRON, BARBER MD Unavailable Unavailable BYRON, BARBER MD Unavailable Unavailable BYRON, BARBER MD Unavailable Unavailable BYRON, BARBER MD Unavailable Unavailable Ravi, Kirk PA Unavailable Unavailable Ravi, Kirk PA Unavailable Unavailable Ravi, Kirk PA Unavailable Unavailable Ravi, Kirk PA Unavailable Unavailable Ravi, Kirk PA Unavailable Unavailable Ravi, Kirk PA Unavailable Unavailable Ravi, Kirk PA Unavailable Unavailable Ravi, Kirk PA Unavailable Unavailable Ravi, Kirk PA Unavailable Unavailable Ravi, Kirk PA Unavailable Unavailable Ravi, Kirk PA Unavailable Unavailable Ravi, Kirk PA Unavailable Unavailable Ravi, Kirk PA Unavailable Unavailable Ravi, Kirk PA Unavailable Unavailable Ravi, Kirk PA Unavailable Unavailable Ravi, Kirk PA Unavailable Unavailable Ravi, Kirk PA Unavailable Unavailable Ravi, Kirk PA Unavailable Unavailable Ravi, Kirk PA Unavailable Unavailable Ravi, Kirk PA Unavailable Unavailable Ravi, Kirk PA Unavailable Unavailable Ravi, Kirk PA Unavailable Unavailable Ravi, Kirk PA Unavailable Unavailable Ravi, Kirk PA Unavailable Unavailable Ravi, Kirk PA Unavailable Unavailable Ravi, Kirk PA Unavailable Unavailable Ravi, Kirk PA Unavailable Unavailable Arvi, Kirk PA Unavailable Unavailable Ravi, Kirk PA Unavailable Unavailable Ravi, Kirk PA Unavailable Unavailable Ravi, Kirk PA Unavailable Unavailable Ravi, Kirk PA Unavailable Unavailable Ravi, Kirk PA Unavailable Unavailable Ravi, Kirk PA Unavailable Unavailable Ravi, Kirk PA Unavailable Unavailable Ravi, Kirk PA Unavailable Unavailable Ravi, Kirk PA Unavailable Unavailable Ravi, Kirk PA Unavailable Unavailable Ravi, Kirk PA Unavailable Unavailable Ravi, Kirk PA Unavailable Unavailable Ravi, Kirk PA Unavailable Unavailable Ravi, Kirk PA Unavailable Unavailable Ravi, Kirk PA Unavailable Unavailable Ravi, Kirk PA Unavailable Unavailable Ravi, Kirk PA Unavailable Unavailable Ravi, Kirk PA Unavailable Unavailable Ravi, Kirk PA Unavailable Unavailable Ravi, Kirk PA Unavailable Unavailable Ravi, Kirk PA Unavailable Unavailable JUAN MANUEL-LAKEISHA, TEMITOPE DO Unavailable Unavailable JUAN MANUEL-LAKEISHA, TEMITOPE DO Unavailable Unavailable JUAN MANUEL-LAKEISHA, TEMITOPE DO Unavailable Unavailable JUAN MANUEL-LAKEISHA, TEMITOPE DO Unavailable Unavailable JUAN MANUEL-LAKEISHA, TEMITOPE DO Unavailable Unavailable JUAN MANUEL-LAKEISHA, TEMITOPE DO Unavailable Unavailable JUAN MANUEL-LAKEISHA, TEMITOPE DO Unavailable Unavailable JUAN MANUEL-LAKEISHA, TEMITOPE DO Unavailable Unavailable JUAN MANUEL-LAKEISHA, TEMITOPE DO Unavailable Unavailable JUAN MANUEL-LAKEISHA, TEMITOPE DO Unavailable Unavailable JUAN MANUEL-LAKEISHA, TEMITOPE DO Unavailable Unavailable JUAN MANUEL-LAKEISHA, TEMITOPE DO Unavailable Unavailable JUAN MANUEL-LAKEISHA, TEMITOPE DO Unavailable Unavailable JUAN MANUEL-LAKEISHA, TEMITOPE DO Unavailable Unavailable JUAN MANUEL-LAKEISHA, TEMITOPE DO Unavailable Unavailable JUAN MANUEL-LAKEISHA, TEMITOPE DO Unavailable Unavailable JUAN MANUEL-LAKEISHA, TEMITOPE DO Unavailable Unavailable JUAN MANUEL-LAKEISHA, TEMITOPE DO Unavailable Unavailable JUAN MANUEL-LAKEISHA, TEMITOPE DO Unavailable Unavailable JUAN MANUEL-LAKEISHA, TEMITOPE DO Unavailable Unavailable JUAN MANUEL-LAKEISHA, TEMITOPE DO Unavailable Unavailable JUAN MANUEL-LAKEISHA, TEMITOPE DO Unavailable Unavailable JUAN MANUEL-LAKEISHA, TEMITOPE DO Unavailable Unavailable JUAN MANUEL-LAKEISHA, TEMITOPE DO Unavailable Unavailable JUAN MANUEL-LAKEISHA, TEMITOPE DO Unavailable Unavailable JUAN MANUEL-LAKEISHA, TEMITOPE DO Unavailable Unavailable JUAN MANUEL-LAKEISHA, TEMITOPE DO Unavailable Unavailable JUAN MANUEL-LAKEISHA, TEMITOPE DO Unavailable Unavailable JUAN MANUEL-LAKEISHA, TEMITOPE DO Unavailable Unavailable JUAN MANUEL-LAKEISHA, TEMITOPE DO Unavailable Unavailable JUAN MANUEL-LAKEISHA, TEMITOPE DO Unavailable Unavailable JUAN MANUEL-LAKEISHA, TEMITOPE DO Unavailable Unavailable JUAN MANUEL-LAKEISHA, TEMITOPE DO Unavailable Unavailable JUAN MANUEL-LAKEISHA, TEMITOPE DO Unavailable Unavailable JUAN MANUEL-LAKEISHA, TEMITOPE DO Unavailable Unavailable JUAN MANUEL-LAKEISHA, TEMITOPE DO Unavailable Unavailable JUAN MANUEL-LAKEISHA, TEMITOPE DO Unavailable Unavailable JUAN MANUEL-LAKEISHA, TEMITOPE DO Unavailable Unavailable JUAN MANUEL-LAKEISHA, TEMITOPE DO Unavailable Unavailable JUAN MANUEL-LAKEISHA, TEMITOPE DO Unavailable Unavailable JUAN MANUEL-LAKEISHA, TEMITOPE DO Unavailable Unavailable JUAN MANUEL-LAKEISHA, TEMITOPE DO Unavailable Unavailable JUAN MANUEL-LAKEISHA, TEMITOPE DO Unavailable Unavailable JUAN MANUEL-LAKEISHA, TEMITOPE DO Unavailable Unavailable JUAN MANUEL-LAKEISHA, TEMITOPE DO Unavailable Unavailable JUAN MANUEL-LAKEISHA, TEMITOPE DO Unavailable Unavailable JUAN MANUEL-LAKEISHA, TEMITOPE DO Unavailable Unavailable JUAN MANUEL-LAKEISHA, TEMITOPE DO Unavailable Unavailable JUAN MANUEL-LAKEISHA, TEMITOPE DO Unavailable Unavailable JUAN MANUEL-LAKEISHA, TEMITOPE DO Unavailable Unavailable JUAN MANUEL-LAKEISHA, TEMITOPE DO Unavailable Unavailable JUAN MANUEL-LAKEISHA, TEMITOPE DO Unavailable Unavailable JUAN MANUEL-LAKEISHA, TEMITOPE DO Unavailable Unavailable JUAN MANUEL-LAKEISHA, TEMITOPE DO Unavailable Unavailable JUAN MANUEL-LAKEISHA, TEMITOPE DO Unavailable Unavailable JUAN MANUEL-LAKEISHA, TEMITOPE DO Unavailable Unavailable JUAN MANUEL-LAKEISHA, TEMITOPE DO Unavailable Unavailable JUAN MANUEL-LAKEISHA, TEMITOPE DO Unavailable Unavailable JUAN MANUEL-LAKEISHA, TEMITOPE DO Unavailable Unavailable JUAN MANUEL-LAKEISHA, TEMITOPE DO Unavailable Unavailable JUAN MANUEL-LAKEISHA, TEMITOPE DO Unavailable Unavailable JUAN MANUEL-LAKEISHA, TEMITOPE DO Unavailable Unavailable JUAN MANUEL-LAKEISHA, TEMITOPE DO Unavailable Unavailable JUAN MANUEL-LAKEISHA, TEMITOPE DO Unavailable Unavailable JUAN MANUEL-LAKEISHA, TEMITOPE DO Unavailable Unavailable JUAN MANUEL-LAKEISHA, TEMITOPE DO Unavailable Unavailable JUAN MANUEL-LAKEISHA, TEMITOPE DO Unavailable Unavailable JUAN MANUEL-LAKEISHA, TEMITOPE DO Unavailable Unavailable JUAN MANUEL-LAKEISHA, TEMITOPE DO Unavailable Unavailable JUAN MANUEL-LAKEISHA, TEMITOPE DO Unavailable Unavailable JUAN MANUEL-LAKEISHA, TEMITOPE DO Unavailable Unavailable JUAN MANUEL-LAKEISHA, TEMITOPE DO Unavailable Unavailable JUAN MANUEL-LAKEISHA, TEMITOPE DO Unavailable Unavailable JUAN MANUEL-LAKEISHA, TEMITOPE DO Unavailable Unavailable JUAN MANUEL-LAKEISHA, TEMITOPE DO Unavailable Unavailable JUAN MANUEL-LAKEISHA, TEMITOPE DO Unavailable Unavailable JUAN MANUEL-LAKEISHA, TEMITOPE DO Unavailable Unavailable JUAN MANUEL-LAKEISHA, TEMITOPE DO Unavailable Unavailable JUAN MANUEL-LAKEISHA, TEMITOPE DO Unavailable Unavailable JUAN MANUEL-LAKEISHA, TEMITOPE DO Unavailable Unavailable JUAN MANUEL-LAKEISHA, TEMITOPE DO Unavailable Unavailable JUAN MANUEL-LAKEISHA, TEMITOPE DO Unavailable Unavailable RING, K MINDY PA Unavailable Unavailable RING, K MINDY PA Unavailable Unavailable RING, K MINDY PA Unavailable Unavailable RING, K MINDY PA Unavailable Unavailable RING, K MINDY PA Unavailable Unavailable RING, K MINDY PA Unavailable Unavailable RING, K MINDY PA Unavailable Unavailable RING, K MINDY PA Unavailable Unavailable RING, K MINDY PA Unavailable Unavailable RING, K MINDY PA Unavailable Unavailable RING, K MINDY PA Unavailable Unavailable RING, K MINDY PA Unavailable Unavailable RING, K MINDY PA Unavailable Unavailable RING, K MINDY PA Unavailable Unavailable RING, K MINDY PA Unavailable Unavailable RING, K MINDY PA Unavailable Unavailable RING, K MINDY PA Unavailable Unavailable RING, K MINDY PA Unavailable Unavailable RING, K MINDY PA Unavailable Unavailable RING, K MINDY PA Unavailable Unavailable RING, K MINDY PA Unavailable Unavailable PONCHO, BREA DEVON PA-C Unavailable Unavailable PONCHO, BREA DEVON PA-C Unavailable Unavailable PONCHO, BREA DEVON PA-C Unavailable Unavailable PONCHO, BREA DEVON PA-C Unavailable Unavailable PONCHO, BREA DEVON PA-C Unavailable Unavailable PONCHO, BREA DEVON PA-C Unavailable Unavailable PONCHO, BREA DEVON PA-C Unavailable Unavailable PONCHO, BREA DEVON PA-C Unavailable Unavailable PONCHO, BREA DEVON PA-C Unavailable Unavailable Ravi, Kirk PA Unavailable Unavailable Ravi, Kirk PA Unavailable Unavailable Ravi, Kirk PA Unavailable Unavailable Ravi, Kirk PA Unavailable Unavailable Ravi, Kirk PA Unavailable Unavailable Ravi, Kirk PA Unavailable Unavailable Ravi, Kirk PA Unavailable Unavailable Ravi, Kirk PA Unavailable Unavailable Ravi, Kirk PA Unavailable Unavailable Ravi, Kirk PA Unavailable Unavailable Ravi, Kirk PA Unavailable Unavailable Ravi, Kirk PA Unavailable Unavailable Ravi, Kirk PA Unavailable Unavailable Ravi, Kirk PA Unavailable Unavailable Ravi, Kirk PA Unavailable Unavailable Ravi, Kirk PA Unavailable Unavailable Ravi, Kirk PA Unavailable Unavailable Ravi, Kirk PA Unavailable Unavailable Ravi, Kirk PA Unavailable Unavailable Ravi, Kirk PA Unavailable Unavailable Ravi, Kirk PA Unavailable Unavailable Ravi, Kirk PA Unavailable Unavailable Ravi, Kirk PA Unavailable Unavailable Ravi, Kirk PA Unavailable Unavailable Ravi, Kirk PA Unavailable Unavailable Ravi, Kirk PA Unavailable Unavailable Ravi, Kirk PA Unavailable Unavailable Ravi, Kirk PA Unavailable Unavailable Ravi, Kirk PA Unavailable Unavailable Ravi, Kirk PA Unavailable Unavailable Ravi, Kirk PA Unavailable Unavailable Ravi, Kirk PA Unavailable Unavailable Ravi, Kirk PA Unavailable Unavailable Ravi, Kirk PA Unavailable Unavailable Ravi, Kirk PA Unavailable Unavailable Ravi, Kirk PA Unavailable Unavailable Ravi, Kirk PA Unavailable Unavailable Ravi, Kirk PA Unavailable Unavailable Ravi, Kirk PA Unavailable Unavailable Ravi, Kirk PA Unavailable Unavailable Ravi, Kirk PA Unavailable Unavailable Ravi, Kirk PA Unavailable Unavailable Ravi, Kirk PA Unavailable Unavailable Ravi, Kirk PA Unavailable Unavailable Ravi, Kirk PA Unavailable Unavailable Ravi, Kirk PA Unavailable Unavailable Ravi, Kirk PA Unavailable Unavailable Ravi, Kirk PA Unavailable Unavailable Ravi, Kirk PA Unavailable Unavailable SHIRA VARELAIA PAGEANT DIRECTOR Unavailable Unavailable DESJARLAIS, RICKEY PAGEANT DIRECTOR Unavailable Unavailable DESJARLAIS, RICKEY PAGEANT DIRECTOR Unavailable Unavailable DESJARLAIS, RICKEY PAGEANT DIRECTOR Unavailable Unavailable DESJARLAIS, RICKEY PAGEANT DIRECTOR Unavailable Unavailable DESJARLAIS, RICKEY PAGEANT DIRECTOR Unavailable Unavailable DESJARLAIS, RICKEY PAGEANT DIRECTOR Unavailable Unavailable DESJARLAIS, RICKEY PAGEANT DIRECTOR Unavailable Unavailable DESJARLAIS, RICKEY PAGEANT DIRECTOR Unavailable Unavailable O'madelin, A Zachary PA Unavailable Unavailable O'madelin, A Zachary PA Unavailable Unavailable O'madelin, A Zachary PA Unavailable Unavailable O'madelin, A Zachary PA Unavailable Unavailable O'madelin, A Zachary PA Unavailable Unavailable O'madelin, A Zachary PA Unavailable Unavailable O'madelin, A Zachary PA Unavailable Unavailable O'madelin, A Zachary PA Unavailable Unavailable O'madelin, A Zachary PA Unavailable Unavailable O'madelin, A Zachary PA Unavailable Unavailable O'madelin, A Zachary PA Unavailable Unavailable O'madelin, A Zachary PA Unavailable Unavailable O'madelin, A Zachary PA Unavailable Unavailable O'madelin, A Zachray PA Unavailable Unavailable O'madelin, A Zachary PA Unavailable Unavailable O'madelin, A Zachary PA Unavailable Unavailable O'madelin, A Zachary PA Unavailable Unavailable O'madelin, A Zachary PA Unavailable Unavailable O'madelin, A Zachary PA Unavailable Unavailable O'madelin, A Zachary PA Unavailable Unavailable O'madelin, A Zachary PA Unavailable Unavailable O'madelin, A Zachary PA Unavailable Unavailable O'madelin, A Zachary PA Unavailable Unavailable O'madelin, A Zachary PA Unavailable Unavailable O'madelin, A Zachary PA Unavailable Unavailable O'madelin, A Zachary PA Unavailable Unavailable O'madelin, A Zachary PA Unavailable Unavailable O'madelin, A Zachary PA Unavailable Unavailable O'madelin, A Zachary PA Unavailable Unavailable O'madelin, A Zachary PA Unavailable Unavailable O'madelin, A Zachary PA Unavailable Unavailable O'madelin, A Zachary PA Unavailable Unavailable O'madelin, A Zachary PA Unavailable Unavailable Re-disclosure Warning The records that you are about to access may contain information from federally-assisted alcohol or drug abuse programs. If such information is present, then the following federally mandated warning applies: This information has been disclosed to you from records protected by federal confidentiality rules (42 CFR part 2). The federal rules prohibit you from making any further disclosure of this information unless further disclosure is expressly permitted by the written consent of the person to whom it pertains or as otherwise permitted by 42 CFR part 2. A general authorization for the release of medical or other information is NOT sufficient for this purpose. The Federal rules restrict any use of the information to criminally investigate or prosecute any alcohol or drug abuse patient.The records that you are about to access may contain highly sensitive health information, the redisclosure of which is protected by Article 27-F of the [facility] Public Health law. If you continue you may have access to information: Regarding HIV / AIDS; Provided by facilities licensed or operated by the [facility] Office of Mental Health; or Provided by the [facility] Office for People With Developmental Disabilities. If such information is present, then the following [facility] mandated warning applies: This information has been disclosed to you from confidential records which are protected by state law. State law prohibits you from making any further disclosure of this information without the specific written consent of the person to whom it pertains, or as otherwise permitted by law. Any unauthorized further disclosure in violation of state law may result in a fine or mcc sentence or both. A general authorization for the release of medical or other information is NOT sufficient authorization for further disc losure. Allergies and Adverse Reactions Type Description Substance Reaction Status Data Source(s ) Bee stings Bee stings Bee stings Unknown Active eCW1 ([facility]) Drug allergy Sulfa Sulfa Unknown Active eCW1 ([facility]) Bee sting Bee sting Bee sting swelling around site Active eCW 1 ([facility]) Doxycycline Hyclate Doxycycline Hyclate doxycycline hyclate 100 MG Oral Tablet Rash Active eCW1 ([facility]) Bee sting Bee sting Bee sting swelling around site Active eCW 1 ([facility]) Bee sting Bee sting Bee sting swelling around site Active eCW 1 ([facility]) Bee sting Bee sting Bee sting swelling around site Active eCW 1 ([facility]) Family History Family Member Name Family Member Gender Family Member Status Date o f Status Description Data Source(s) Unknown Male Problem MEDENT ([facility]) Unknown Male Problem MEDENT ([facility] Unknown Unknown Problem MEDENT ([facility] Unknown Male Problem MEDENT ([facility]) () Encounters Encounter Providers Location Date Indications Data Source(s ) Outpatient Attender: Kirk CHAVIRA [facility] 07/03/2020 08:20:00 AM EST MEDENT ([facility]) Outpatient Attender: RICKEY VARELA NP 06/28/2020 10: 23:00 AM [facility] [address] [place] [address] 06/28/2020 12:00:00 AM EST eCW1 ([facility]) Outpatient Attender: BARBER MATTHEWS MD Main office - [facility] 06/18/2020 01:30:00 PM EST MEDENT ([facility] EMMA gutierrez) ([facility]) .[facility] 06/11/2020 12:00:00 AM EST eCW1 ([facility]) Outpatient Attender: DEVON ISAAC PA-C 06/10/2020 10:34:[address] [facility] Outpatient Attender: RICKEY VARELA NP 05/31/2020 08: 35:[address] [facility] Outpatient Attender: Kirk CHAVIRA [facility] 05/14/2020 07:40:00 AM EST MEDENT ([facility]) Outpatient Attender: RICKEY VARELA NP 05/10/2020 08: 31:[address] [facility] Outpatient Attender: Kirk CHAVIRA [facility] 05/07/2020 02:20:00 PM EST MEDENT ([facility]) Outpatient Attender: RICKEY VARELA NP 04/12/2020 11: 11:[address] [facility] Outpatient Attender: ALEX NICHOLSON [facility] Office 03/24 10:00:00 AM EST MEDENT ([facility] Outpatient Attender: TEMITOPE DOLAN DO [facility] 04/02/2020 07:20:00 AM EST MEDENT ([facility]) Outpatient Attender: RICKEY VARELA NP 03/22/2020 10: 34:00 AM [facility] ([facility]) [facility] 02/23/2020 12:00:00 AM EDT eCW1 ([facility]) Outpatient Attender: RICKEY VARELA NP 02/16/2020 10: 40:00 AM [facility] Outpatient Attender: RICKEY VARELA NP 02/02/2020 10: 40:00 AM [facility] Outpatient Attender: RICKEY VARELA NP 01/26/2020 10: 06:00 AM [facility] Outpatient Attender: RICKEY VARELA NP 01/16/2020 05: 00:00 PM [facility] Outpatient Attender: Zachary CHAVIRA [facility] 01/15/2020 03:40:00 PM EDT MEDENT ([facility]) Outpatient Attender: ALEX NICHOLSON [facility] 12/22 01:45:00 PM EDT MEDENT ([facility] Outpatient Attender: RICKEY VARELA NP 01/04/2020 09: 01:00 AM [facility] Outpatient Attender: Kirk CHAVIRA [facility] 12/27/2019 08:00:00 AM EDT MEDENT ([facility]) Outpatient Attender: RICKEY VARELA NP 12/20/2019 12: 03:00 PM [facility] Outpatient Attender: DEVON ISAAC PA-C 12/19/2019 11:47:00 AM [facility] Outpatient Attender: Kirk CHAVIRA [facility] 12/15/2019 02:00:00 PM EDT MEDENT ([facility]) Outpatient Attender: MINDY Horta [facility] 12/10/2019 10:30:00 AM EDT MEDENT ([facility] Outpatient Attender: RICKEY VARELA NP 12/07/2019 10: 47:00 AM [facility] Outpatient Attender: TEMITOPE DOLAN DO [facility] 12/05/2019 09:20:00 AM EDT MEDENT ([facility]) Outpatient Attender: RICKEY VARELA NP 11/29/2019 10: 40:00 AM [facility] Outpatient Attender: RICKEY VARELA PAGEANT DIRECTOR 11/14/2019 11: 34:00 AM [facility] Outpatient Attender: RICKEY VARELA PAGEANT DIRECTOR 11/07/2019 10: 40:00 AM [facility] Outpatient Attender: ALEX NICHOSLON [facility] 12/2019 01:45:00 PM EDT MEDENT ([facility] Outpatient Attender: RICKEY VARELA NP 10/25/2019 10: 25:00 AM [facility] .[facility] 10/23/2019 12:00:00 AM EDT eCW1 ([facility]) Outpatient Attender: RICKEY VARELA NP 09/26/2019 04: 20:00 PM [facility] Outpatient Attender: Kirk CHAVIRA [facility] 09/20/2019 10:40:00 AM EDT MEDENT ([facility]) Outpatient Attender: RICKEY VARELA NP 09/19/2019 04: 58:00 PM [facility] [address] [place] [address] 09/08/2019 12:00:00 AM EDT eCW1 ([facility]) Outpatient Attender: RICKEY VARELA NP 08/23/2019 09: 27:00 AM [facility] [address] [place] [address] 08/16/2019 12:00:00 AM EDT eCW1 ([facility]) [facility] [address] [place] [address] 08/15/2019 12:00:00 AM EDT [facility] Outpatient Referrer: Kirk CHAVIRA 08/14/2019 12:21:00 PM EDT [facility] [address] [place] [address] 08/14/2019 12:00:00 AM EDT [facility] Outpatient Attender: Kirk CHAVIRA [facility] 08/07/2019 09:20:00 AM EDT MEDENT ([facility]) Outpatient Attender: RICKEY VARELA NP 07/04/2019 08: 40:00 AM [facility] [address] [place] [address] 06/27/2019 12:00:00 AM EST eCW1 ([facility]) [facility] [address] [place] [address] 06/27/2019 12:00:00 AM EST eCW1 ([facility]) [facility] Dermatology [address] [place] [address] 06/27/2019 12:00:00 AM EST eCW1 ([facility]) [facility] Dermatology [address] [place] [address] 06/20/2019 12:00:00 AM EST eCW1 ([facility]) [facility] [place] [address] [facility] [address] 06/19/2019 12:00:00 AM EST eCW1 ([facility]) Outpatient Attender: TEMITOPE DOLAN DO Family Medicine [facility] 06/16/2019 12:20:00 PM EST MED[facility] ([facility]) [facility] Dermatology [address] [place] [address] 06/15/2019 12:00:00 AM EST eCW1 ([facility]) [facility] Dermatology [address] [place] [id number] 06/09/2019 12:00:00 AM EST eCW1 ([facility]) [facility] Dermatology [address] [place] [address] 06/08/2019 12:00:00 AM EST eCW1 ([facility]) [facility] Women[facility]ness [facility] Breast Care [address] [place] [address] 06/06/2019 12:00:00 AM EST eCW1 ([facility]) Outpatient Attender: ALEX NICHOLSON [facility] Office 05/24 12:30:00 PM EST MED[facility] ([facility] Outpatient Attender: RICKEY VARELA NP 05/02/2019 08: 40:[address] [facility] Outpatient Attender: RICKEY VARELA PAGEANT DIRECTOR 03/28/2019 11: 21:[address] [facility] Outpatient Attender: RICKEY VARELA PAGEANT DIRECTOR 02/21/2019 08: 09:00 AM [facility] Immunizations Vaccine Date Status Description Data Source(s) COVID-19 VACCINE, MRNA-1273, LNP-S (MODERNA)/PF 06/28/2020 1 2:00:00 AM EST completed [facility] VARICELLA-ZOSTER VIRUS GLYCOPROTEIN E,REC/AS01B ADJUVA NT/PF 05/05/2020 12:00:00 AM EST completed [facility] INFLUENZA VIRUS VACCINE QUADRIVAL SPLIT 2020-21(65 YR UP)/PF 02/12/2020 12:00:00 AM EDT completed [facility] DIPHTHERIA,PERTUSSIS(ACELLULAR),TETANUS VACCINE 01/20/2020 1 2:00:00 AM EDT completed [facility] Medications Medication Brand Name Start Date Product Form Dose Route Admi nistrative Instructions Pharmacy Instructions Status Indications Reaction Description Data Source(s) Calcium Carbonate 298 MG / Magnesium Chl oride 596 MG Delayed Release Oral Tablet [Slow-Mag Reformulated Jun 2011] Slow-Mag 07/03/2020 12:00:00 AM EST ORAL active [facility] ([facility]) Ergocalciferol 65679 UNT Oral Capsule Ergocalciferol 05/14/2020 12:00:00 AM EST active [facility] ( [facility]) Shingrix Shingrix 02/26/2020 12:00:00 AM EDT SUBCUTANEOUS active [facility] ([facility]) 100 mg 01/26/2020 12:00:00 AM EDT tablet 30 TAKE ONE TABLET BY MOUTH EVERY MORNING MAXIMUM DAILY DOSE = 1 TABLET TAKE ONE TABLET BY MOUTH EVERY MORNING MAXIMUM DAILY DOSE = 1 TABLET SOLD: 01/27/2020 [facility] Tdap Vaccine 01/15/2020 12:00:00 AM EDT compl eted MED[facility] ([facility]) diphtheria toxoid vaccine, inactivated 4 UNT/ML / tetanus toxoid vaccine, inactivated 4 UNT/ML Injectable Suspension Tetanus/Diphtheria Toxoids-Adsorbed Adult 01/15/2020 12:00:00 AM EDT completed [facility] ([facility]) 5 mg/gram (0.5 %) 01/09/2020 12:00:00 AM EDT ointment 3 APPLY A SMALL AMOUNT ON EYELID AT BEDTIME DIRECTED FOR 14 DAYS APPLY A SMALL AMOUNT ON EYELID AT BEDTIME DIRECTED FOR 14 DAYS SOLD: 02/26/2020 [facility] 5 mg/gram (0.5 %) 01/09/2020 12:00:00 AM EDT ointment 3 APPLY A SMALL AMOUNT ON EYELID AT BEDTIME DIRECTED FOR 14 DAYS APPLY A SMALL AMOUNT ON EYELID AT BEDTIME DIRECTED FOR 14 DAYS SOLD: 01/10/2020 [facility] 100 mg 11/30/2019 12:00:00 AM EDT tablet sustained-releas e 12 hr 30 TAKE ONE TABLET BY MOUTH EVERY MORNING TAKE ONE TABLET BY MOUTH EVERY MORNING SOLD: 11/30/2019 [facility] Docusate Sodium 100 MG Oral Capsule [Colace] Colace 05/2019 12:00:00 AM EDT active MED[facility] ( [facility], ) sennosides, HALFWAY 8.6 MG Oral Tablet Senna 11/22/2019 12:00:00 AM EDT ORAL active [facility] ([facility], ) 100 mg 11/22/2019 12:00:00 AM EDT capsule 90 TAKE ONE CAPSULE BY MOUTH TWICE A DAY WITH A MEAL ( INCREASE TO THREE TIMES A DAY IF PERSISTENT CONSTIPATION AND HOLD/DECREASE IF HAVING DIARRHEA) TAKE ONE CAPSULE BY MOUTH TWICE A DAY WI TH A MEAL ( INCREASE TO THREE TIMES A DAY IF PERSISTENT CONSTIPATION AND HOLD/DECREASE IF HAVING DIARRHEA) SOLD: 03/26/2020 [facility] 100 mg 11/22/2019 12:00:00 AM EDT capsule 90 TAKE ONE CAPSULE BY MOUTH TWICE A DAY WITH A MEAL ( INCREASE TO THREE TIMES A DAY IF PERSISTENT CONSTIPATION AND HOLD/DECREASE IF HAVING DIARRHEA) TAKE ONE CAPSULE BY MOUTH TWICE A DAY WI TH A MEAL ( INCREASE TO THREE TIMES A DAY IF PERSISTENT CONSTIPATION AND HOLD/DECREASE IF HAVING DIARRHEA) SOLD: 11/29/2019 [facility] 8.6 mg 11/22/2019 12:00:00 AM EDT tablet 60 TAKE TWO TABLETS BY MOUTH AT BEDTIME TAKE TWO TABLETS BY MOUTH AT BEDTIME SOLD: 11/29/2019 [facility] 1.5 mg 11/01/2019 12:00:00 AM EDT capsule 10 TAKE ONE CAPSULE BY MOUTH EVERY DAY TAKE ONE CAPSULE BY MOUTH EVERY DAY SOLD: 11/01/2019 [facility] 500 mg 08/16/2019 12:00:00 AM EDT tablet 42 TAKE ONE TABLET BY MOUTH EVERY 12 HOURS FOR 21 DAYS TAKE ONE TABLET BY MOUTH EVERY 12 HOURS FOR 21 DAYS SO LD: 08/16/2019 [facility] 300 mg 08/14/2019 12:00:00 AM EDT capsule 60 TAKE TWO CAPSULES BY MOUTH EVERY 8 HOURS TAKE TWO CAPSULES BY MOUTH EVERY 8 HOURS SOLD: 08/14/2019 [facility] Clindamycin 300 MG Oral Capsule Clindamycin HCl 300 MG Clind amycin HCl 300 MG 08/14/2019 12:00:00 AM EDT active 2 capsules eCW1 ([facility]) Physical Therapy 07/31/2019 12:00:00 AM EDT a ctive MED[facility] ([facility] Medicine [facility]) 0.005 % 06/19/2019 12:00:00 AM EST ointment 15 APPLY TWO TIMES A DAY EXTERNALLY APPLY TWO TIMES A DAY EXTERNALLY SOLD: 06/26/2019 [facility] 100 mg 06/16/2019 12:00:00 AM EST tablet 20 TAKE ONE TABLET BY MOUTH TWICE A DAY TAKE ONE TABLET BY MOUTH TWICE A DAY SOLD: 06/26/2019 [facility] Clindamycin 300 MG Oral Capsule Clindamycin HCl 300 MG Clind amycin HCl 300 MG 06/09/2019 12:00:00 AM EST suspended 2 capsules eCW1 ([facility]) Clindamycin 300 MG Oral Capsule Clindamycin HCl 300 MG Clind amycin HCl 300 MG 06/09/2019 12:00:00 AM EST suspended 2 capsules eCW1 ([facility]) Clindamycin HCl 300 MG UNK 06/09/2019 12:00:00 AM EST active 2 capsules eCW1 ([facility]) Clindamycin 300 MG Oral Capsule Clindamycin HCl 300 MG Clind amycin HCl 300 MG 06/09/2019 12:00:00 AM EST active 2 capsules eCW1 ([facility]) 300 mg 06/09/2019 12:00:00 AM EST capsule 60 TAKE TWO CAPSULES BY MOUTH EVERY 8 HOURS FOR 10 DAYS TAKE TWO CAPSULES BY MOUTH EVERY 8 HOURS FOR 10 DAYS SOLD: 06/09/2019 [facility] doxycycline hyclate 100 MG Oral Tablet Doxycycline Hyc late 100 MG Doxycycline Hyclate 100 MG 06/08/2019 12:00:00 AM EST active 1 tablet eCW1 ([facility]) Fluticasone propionate 0.00173 MG/MG Top ical Ointment Fluticasone Propionate 0.005 % Fluticasone Propionate 0.005 % 06/08/2019 12:00:00 AM EST active 1 application eCW1 ([facility]) Fluticasone propionate 0.59072 MG/MG Top ical Ointment Fluticasone Propionate 0.005 % Fluticasone Propionate 0.005 % 06/08/2019 12:00:00 AM EST active 1 application eCW1 ([facility]) 0.005 % 06/08/2019 12:00:00 AM EST ointment 15 APPLY EXTERNALLY TWO TIMES A DAY FOR 14 DAYS APPLY EXTERNALLY TWO TIMES A DAY FOR 14 DAYS SOLD: 06/08/2019 [facility] Fluticasone propionate 0.14751 MG/MG Top ical Ointment Fluticasone Propionate 0.005 % Fluticasone Propionate 0.005 % 06/08/2019 12:00:00 AM EST active 1 application eCW1 ([facility]) Fluticasone Propionate 0.005 % UNK 06/08/2019 12:00:00 AM EST active 1 application eCW1 ([facility]) doxycycline hyclate 100 MG Oral Tablet Doxycycline Hyc late 100 MG Doxycycline Hyclate 100 MG 06/08/2019 12:00:00 AM EST suspende d 1 tablet eCW1 ([facility]) Doxycycline Hyclate 100 MG UNK 06/08/2019 12:00:00 AM EST active 1 tablet eCW1 ([facility]) 100 mg 06/08/2019 12:00:00 AM EST tablet 20 TAKE 1 TABLET BY MOUTH TWO TIMES A DAY FOR 10 DAYS TAKE 1 TABLET BY MOUTH TWO TIMES A DAY FOR 10 DAYS JOSE RAMON [facility] doxycycline hyclate 100 MG Oral Tablet Doxycycline Hyc late 100 MG Doxycycline Hyclate 100 MG 06/08/2019 12:00:00 AM EST suspende d 1 tablet eCW1 ([facility]) ammonium lactate 120 MG/ML Topical Cream Ammonium Lactate 06/05/2019 12:00:00 AM EST active [facility] ([facility] 12 % 06/05/2019 12:00:00 AM EST cream 140 APPLY TO FEET DAILY APPLY TO FEET DAILY SOLD: 06/05/2019 [facility] Insurance Providers Payer name Policy type / Coverage type Policy ID Covered democrat ID Covered democrat's relationship to perez Policy Perez Plan Information MEDICARE [id number] SP [id number] R [facility] [id number] SP [id number] [employer] MED[employer]ARE [employer] [id number] S [id number] R [id number] S [id number] [place] [id number] S [id number] [place] MED[employer]ARE DIVISION [id number] S [id number] [place] [id number] S [id number] [facility] [id number] S [id number] [place] MEDICARE DIVISION [id number] S [id number] [place] MEDICARE DIVISION [id number] S [id number] [place] MEDICARE DIVISION UNAVAILABLE S UNAVAILABLE MEDICARE [id number] SP [id number] R [facility] [id number] SP [id number] MEDICARE C [id number] S [id number] R O [id number] S [id number] MEDICARE A [id number] Self [id number] UMR U [id number] Self [id number] [place] MED[employer]ARE DIVISION [id number] S [id number] [place] [id number] S [id number] UMR [id number] S [id number] Medicare Medicare Primary [id number] Self [id number] Umr Commercial [id number] Self [id number] [place] [id number] Self [id number] [facility] Part B [id number] Self [id number] UMR [id number] S [id number] Medicare Medicare Primary [id number] Self [id number] [place] Primary [id number] Self [id number] Medicare Medicare Primary [id number] Self [id number] Medicare Medicare Primary [id number] Self [id number] [place] Primary [id number] Self [id number] ANSI-Medicare Part B [id number] ANSI-Commercial [id number] UMR [facility] [id number] SP [id number] MEDICARE [id number] SP [id number] ANSI-Medicare Part B [id number] ANSI-Commercial [id number] [place] MEDICARE DIVISION [id number] S [id number] [place] [id number] S [id number] [place] MEDICARE DIVISION [id number] S [id number] [place]IC[place] [id number] S [id number] [facility] [id number] S [id number] ANSI-Medicare Part B [id number] ANSI-Commercial [id number] ANSI-Commercial [id number] ANSI-Medicare Part B [id number] ANSI-Medicare Part B [id number] ANSI-Commercial [id number] ANSI-Medicare Part B [id number] ANSI-Commercial [id number] Medicare Medicare Primary [id number] Self [id number] MEDICARE A [id number] Self [id number] A R U [id number] Self [id number] ANSI-Commercial [id number] ANSI-Medicare Part B [id number] Medicare Medicare Primary [id number] Self [id number] ANSI-Commercial [id number] ANSI-Medicare Part B [id number] MEDICARE [id number] SP [id number] A [facility] [id number] SP [id number] Umr/c/[place] Medigap Part B [id number] Self [id number] Medicare Natl Gov't Servi Medicare Primary [id number] Self [id number] MEDICARE [id number] SP [id number] A MEDICARE C [id number] S [id number] A MEDICARE [id number] SP [id number] A [facility] [id number] SP [id number] [facility] U [id number] Self [id number] [facility] PPO O [id number] S [id number] [place] Medigap Part B [id number] Self [id number] Medicare Natl Gov't Servi Medicare Primary [id number] Self [id number] [place] Medigap Part B [id number] Self [id number] [place] Primary [id number] Self [id number] [place] Medigap Part B [id number] Self [id number] Medicare [place]l Gov't Servi Medicare Primary [id number] Self [id number] [facility] [id number] SP [id number] MEDICARE [id number] SP [id number] A [place] [id number] SP [id number] [facility] U [id number] Self [id number] [place] Commercial Self Medicare [facility] Medicare Primary Self [facility] [id number] 18 [id number] [facility] [id number] [id number] 18 [id number] MEDICARE PART A-CLINIC [id number] 18 [id number] A [id number] Problems, Conditions, and Diagnoses Code Display Name Description Problem Type Effective Dates Data Source(s) 11474831 Essential hypertension Essential hypertension Problem 11/22/2019 12:00:00 AM EDT [facility] ) N95.9 [id number] Menopausal disorder Problem 06/27/2019 12:00 :00 AM EST eCW1 ([facility]) C44.310 [id number] Basal cell carcinoma, face Problem 0 12:00:00 AM EST [facility] ([facility]) C44.722 [id number] 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 Problem 06/07/2019 12:00:00 AM EST [facility] ([facility]) R25.1 Tremor, unspecified TREMOR, UNSPECIFIED Diagnosis 0 06/28/2020 10:23:[address] [facility] F31.9 Bipolar disorder, unspecified BIPOLAR DISORDER, UNSPEC IFIED Diagnosis 06/28/2020 10:23:[address] [facility] F31.32 Bipolar disorder, current episode depres sed, moderate BIPOLAR DISORDER, CURRENT EPISODE DEPRESSED, MODERATE Diagnosis 06/10/2020 10:34:00 AM [facility] G25.2 Other specified forms of tremor OTHER SPECIFIED FORMS OF TREMOR Diagnosis 05/31/2020 08:35:[address] [facility] F31.31 Bipolar disorder, current episode depres sed, mild BIPOLAR DISORDER, CURRENT EPISODE DEPRESSED, MILD Diagnosis 09/19/2019 04:58:00 PM [facility] Surgeries/Procedures Procedure Description Date Indications Data Source(s) NON-INVASIVE PHYSIOLOGIC STUDY EXTREMITY 3 LEVLS 07/05 12:00:00 AM EST MED[facility] ([facility], ) TSTG ANS FUNCJ CARDIOVAGAL INNERVAJ PARASYMP 12:00:00 AM EST MED[facility] ([facility], ) TESTING AUTONOMIC NERVOUS SYSTEM FUNCTION 07/05/2020 1 2:00:00 AM EST [facility] ([facility], ) ELECTROENCEPHALOGRAM W/REC AWAKE&ASLEEP 07/04/2020 12: 00:00 AM EST [facility] ([facility], ) ELECTROENCEPHALOGRAM W/REC AWAKE&ASLEEP 07/04/2020 12: 00:00 AM EST [facility] ([facility], ) Needle electromyography, each extremity, with related paraspinal areas, when performed, done with nerve conduction, amplitude and latency/velocity study; complete, five or more muscles studied, innervated by three or more nerves or four or more spinal levels (list separately in addition to the code for primary procedure). 06/24/2020 12:00:00 AM EST MEDEN T ([facility], ) Needle electromyography, each extremity, with related paraspinal areas, when performed, done with nerve conduction, amplitude and latency/velocity study; complete, five or more muscles studied, innervated by three or more nerves or four or more spinal levels (list separately in addition to the code for primary procedure). 06/24/2020 12:00:00 AM EST MEDEN T ([facility], ) Nerve Conduction 11-12 Studies 06/24/2020 12:00:00 AM EST MED[facility] ([facility], ) PARING/CUTTING BENIGN HYPERKERATOTIC LESION 2-4 2020 12:00:00 AM EST [facility] ([facility] DEBRIDEMENT NAIL ANY METHOD 6/> 06/19/2020 12:00:00 AM EST [facility] ([facility] COLLECTION VENOUS BLOOD VENIPUNCTURE 10/23/2019 12:00: 00 AM EDT eCW1 ([facility]) 25 HYDROXY INCLUDES FRACTIONS IF PERFORMED 10/23/2019 12:00:00 AM EDT eCW1 ([facility]) PROTEIN TOTAL XCPT REFRACTOMETRY URINE 10/23/2019 12:0 0:00 AM EDT eCW1 ([facility]) COMPREHENSIVE METABOLIC PANEL 10/23/2019 12:00:00 AM E DT eCW1 ([facility]) Office Visit, Est Pt., Level 2 FC 06/27/2019 12:00:00 AM EST eCW1 ([facility]) Office Visit, Est Pt., Level 3 PC 06/27/2019 12:00:00 AM EST eCW1 ([facility]) TANGNTL BX SKIN SINGLE LES 06/15/2019 12:00:00 AM EST eCW1 ([facility]) TANGNTL BX SKIN EA SEP/ADDL 06/15/2019 12:00:00 AM EST eCW1 ([facility]) EXC TR-EXT MAL+GRACIELA 1.1-2 CM 06/08/2019 12:00:00 AM ES T eCW1 ([facility]) INTMD RPR S/A/T/EXT 2.6-7.5 06/08/2019 12:00:00 AM EST eCW1 ([facility]) Results ID Date Data Source [id number] 06/28/2020 10:43:00 AM EST MED[facility] ([facility]) Name Value Range Interpretation Code Description Data Mary rce(s) Supporting Document(s) Cobalamin (Vitamin B12) [Mass/volume] in Serum or Plasma 575 pg/ mL 247-911 Normal (applies to non-numeric results) [facility] ([facility]) VITAMIN B12 NORMAL RANGE NORMAL 247 - 911 PG/ML INDETERMINATE 211 - 246 PG/ML DEFICIENT LESS THAN 211 PG/ML Ferritin [Mass/volume] in Serum or Plasma 96 ng/mL 8-252 Normal (applies to non- numeric results) [facility]) Calcidiol [Mass/volume] in Serum or Plasma 49.4 ng/mL 30.0- 100.0 Normal (applies to non-numeric results) [facility]) ID Date Data Source [id number] 06/28/2020 10:43:00 AM EST [facility] ([facility]) Name Value Range Interpretation Code Description Data Mary rce(s) Supporting Document(s) Iron (Fe) 101 ug/dL 50-170 Normal (applies to non-numeric resul ts) [facility]) Percent Saturation 30.4 % 13.2-45.0 Normal (applies to non-numer ic results) [facility]) Total Iron Binding Capacity 332 ug/dL 250-450 Norm al (applies to non-numeric results) [facility] ([facility]) ID Date Data Source [id number] 06/28/2020 10:43:00 AM EST [facility] ([facility]) Name Value Range Interpretation Code Description Data Mary rce(s) Supporting Document(s) Thyroid Stimulating Hormone 0.831 uIU/ML 0.358-3.740 Norm al (applies to non- numeric results) [facility]) Free T4 0.93 ng/dL 0.76-1.46 Normal (applies to non-numeric resul ts) [facility]) ID Date Data Source [id number] 06/28/2020 10:43:00 AM EST [facility] ([facility]) Name Value Range Interpretation Code Description Data Mary rce(s) Supporting Document(s) White Blood Count 8.5 10 4.0-10.0 Normal (applies to non-numeri c results) [facility]) Hemoglobin 11.0 g/dL 12.0-15.5 Below low normal [facility] ( [facility]) Red Blood Count 3.62 10 4.00-5.40 Below low normal [facility] ([facility]) Mean Corpuscular Volume 100.3 fl 80.0-96.0 Above high normal [facility] ([facility]) Hematocrit 36.3 % 36.0-47.0 Normal (applies to non-numeric resul ts) [facility]) Mean Corpuscular Hemoglobin 30.4 pg 27.0-33.0 Norm al (applies to non-numeric results) [facility]) Mean Corpuscular HGB Conc 30.3 g/dL 32.0-36.5 Below low normal [facility] ([facility]) Red Cell Distribution Width 12.7 % 11.5-14.5 Norm al (applies to non-numeric results) [facility] ([facility]) Lymph % 28.9 % 24.0-44.0 Normal (applies to non-numeric resul ts) [facility]) Platelet Count, Automated 407 10 150-450 Normal (applies to non-numeric results) [facility] ([facility]) Neutrophils % 56.4 % 36.0-66.0 Normal (applies to non-numeric re sults) [facility] ([facility]) Baso % 0.8 % 0.0-1.0 Normal (applies to non-numeric resul ts) [facility] ([facility]) [place] % 9.4 % 0.0-5.0 Above high normal [facility] ([facility]) Eos % 4.3 % 0.0-3.0 Above high normal [facility] ([facility]) Immature Granulocyte % 0.2 % 0-3.0 Normal (applies to non-n umeric results) [facility] ([facility]) Nucleated Red Blood Cell % 0.0 % 0-0 Normal (applies to n on-numeric results) [facility] ([facility]) [place] # 0.8 10 0.0-0.8 Normal (applies to non-numeric resul ts) [facility] ([facility]) Lymph # 2.5 10 1.5-5.0 Normal (applies to non-numeric resul ts) [facility] ([facility]) Neutrophils # 4.8 10 1.5-8.5 Normal (applies to non-numeric re sults) [facility] ([facility]) Eos # 0.4 10 0.0-0.5 Normal (applies to non-numeric resul ts) [facility] ([facility]) Baso # 0.1 10 0.0-0.2 Normal (applies to non-numeric resul ts) [facility] ([facility]) ID Date Data Source [id number] 06/28/2020 10:43:00 AM EST [facility] ([facility]) Name Value Range Interpretation Code Description Data Mary rce(s) Supporting Document(s) Glucose, Fasting 97 mg/dL 70-100 Normal (applies to non-numeric results) [facility] ([facility]) Blood Urea Nitrogen 19 mg/dL 7-18 Above high normal [facility] ([facility]) Glomerular Filtration Rate 44.1 Normal (applies to n on-numeric results) [facility] ([facility]) <content>Units are mL/min/1.73 m2</content>
<content></content>
<content>Chronic Kidney Disease Staging per NKF:</content>
<content></content>
<content>Stage I & II GFR >=60 Normal to Mildly Decreased</content>
<content>Stage III GFR 30- 59 Moderately Decreased</content>
<content>Stage IV GFR 15-29 Severely Decreased</content>
<content>Stage V GFR <15 Very Little GFR Left</content>
<content>ESRD GFR <15 on BUS ASSISTANT</content>
<content></content> Creatinine For GFR 1.25 mg/dL 0.55-1.30 Normal (applies to non -numeric results) [facility] ([facility]) Sodium Level 141 meq/L 136-145 Normal (applies to non-numeric res ults) [facility] ([facility]) Potassium Serum 3.8 meq/L 3.5-5.1 Normal (applies to non-numeric results) [facility] [facility]) Anion Gap 5 meq/L 8-16 Below low normal [facility] Chloride Level 106 meq/L 98-107 Normal (applies to non-numeric r esults) [facility]) Carbon Dioxide Level 30 meq/L 21-32 Normal (applies to non-num caren results) [facility] ([facility]) Calcium Level 9.6 mg/dL 8.8-10.2 Normal (applies to non-numeric re sults) [facility] ([facility]) Ast/Sgot 14 U/L 7-37 Normal (applies to non-numeric resul ts) [facility] ([facility]) Alkaline Phosphatase 80 U/L 45-117 Normal (applies to non-num caren results) [facility] ([facility]) Alt/SGPT 29 U/L 12-78 Normal (applies to non-numeric resul ts) [facility] ([facility]) Albumin 3.7 GM/DL 3.2-5.2 Normal (applies to non-numeric resul ts) [facility] ([facility]) Bilirubin,Total 0.5 mg/dL 0.2-1.0 Normal (applies to non-numeric results) [facility] ([facility]) Total Protein 7.0 GM/DL 6.4-8.2 Normal (applies to non-numeric re sults) [facility] ([facility]) Albumin/Globulin Ratio 1.1 1.2-2.2 Below low normal [facility] ([facility]) ID Date Data Source [id number] 06/02/2020 12:00:00 AM EST [facility] Name Value Range Interpretation Code Description Data Mary rce(s) Supporting Document(s) SARS coronavirus 2 RNA [Presence] in Res piratory specimen by DAWIT with probe detection NEGATIVE [facility] This lab was ordered by Ham Montesinos and reported by [facility]. ID Date Data Source [id number] 06/02/2020 12:00:00 AM EST [facility] Name Value Range Interpretation Code Description Data Mary rce(s) Supporting Document(s) Carestart Rapid COVID Antigen Test Negative [facility] This lab was reported by Ham WHITE Paul mari. ID Date Data Source [id number] 05/08/2020 11:00:00 AM EST [facility] ([facility]) Name Value Range Interpretation Code Description Data Mary rce(s) Supporting Document(s) Bacteria identified in Urine by Culture Laboratory test result Normal (applies to non-numeric results) [facility] ([facility]) FULL REPORT IN LAB NOTES ([facility] and [facility] ). NO GROWTH ID Date Data Source [id number] 05/08/2020 11:00:00 AM EST [facility] ([facility]) Name Value Range Interpretation Code Description Data Mary rce(s) Supporting Document(s) Appearance, Urine Laboratory test result Normal (applies to non-numeric results) [facility] ([facility]) Color, Urine Laboratory test result Normal (applies to non -numeric results) [facility] ([facility]) Specific Early Urine Auto 1.003 1.002-1.035 Norm al (applies to non-numeric results) [facility] ([facility]) Protein, Urine Auto Laboratory test result Samantha l (applies to non-numeric results) [facility] ([facility]) PH,Urine 7.0 units 5.0-9.0 Normal (applies to non-numeric resul ts) [facility] ([facility]) Ketone, Urine Auto Laboratory test result Normal (applies to non-numeric results) [facility] ([facility]) Glucose, Urine (Ua) Auto Laboratory test result Normal (applies to non-numeric results) [facility] ([facility]) Urobilinogen, Urine Auto 0.2 mg/dL 0.0-2.0 Normal (applies to non-numeric results) [facility] ([facility]) Bilirubin, Urine Auto Laboratory test result Nor mal (applies to non-numeric results) [facility] ([facility]) Nitrite, Urine Auto Laboratory test result Samantha l (applies to non-numeric results) [facility] ([facility]) Leukocyte Esterase, Urine Auto Laboratory test result Abov e high normal [facility] ([facility]) Blood, Urine Blood Laboratory test result Normal (applies to non-numeric results) [facility] ([facility]) RBC, Urine Auto 0 /HPF 0-3 Normal (applies to non-numeric results) [facility] ([facility]) WBC, Urine Auto 1 /HPF 0-3 Normal (applies to non-numeric results) [facility] ([facility]) Bacteria, Urine Auto Laboratory test result Norm al (applies to non-numeric results) [facility] ([facility]) Hyaline Cast, Urine Auto 0 /LPF 0-1 Normal (applies to non -numeric results) [facility] ([facility]) Squamous Epithelial Cell Ur AU 0 /HPF 0-6 N ormal (applies to non-numeric results) [facility] ([facility]) ID Date Data Source [id number] 05/07/2020 04:59:00 PM EST [facility] ([facility]) Name Value Range Interpretation Code Description Data Mary rce(s) Supporting Document(s) Thyroid Stimulating Hormone 1.040 uIU/ML 0.358-3.740 Norm al (applies to non- numeric results) [facility] ([facility]) Free T4 1.02 ng/dL 0.76-1.46 Normal (applies to non-numeric resul ts) [facility] ID Date Data Source [id number] 05/07/2020 04:59:00 PM EST [facility] ([facility]) Name Value Range Interpretation Code Description Data Mary rce(s) Supporting Document(s) Folate Laboratory test result Normal (applies to non-n umeric results) [facility] ([facility]) FOLATE NORMAL RANGE NORMAL GREATER THAN 5.4 NG/ML INDETERMINATE 3.4-5.4 NG/ML DEFICIENT LESS THAN 3.4 NG/ML Vitamin B12 Level 671 pg/mL Normal (applies to non-numeri c results) [facility] ([facility]) VITAMIN B12 NORMAL RANGE NORMAL 247 - 911 PG/ML INDETERMINATE 211 - 246 PG/ML DEFICIENT LESS THAN 211 PG/ML ID Date Data Source [id number] 05/07/2020 04:59:00 PM EST [facility] ([facility]) Name Value Range Interpretation Code Description Data Mary rce(s) Supporting Document(s) Rotonda [Mass/volume] in Serum or Plasma 0.61 meq/L 0.60-1. 20 Normal (applies to non-numeric results) [facility] ([facility]) ID Date Data Source [id number] 05/07/2020 04:59:00 PM EST [facility] ([facility]) Name Value Range Interpretation Code Description Data Mary rce(s) Supporting Document(s) Bacteria identified in Urine by Culture Laboratory test result [facility]) ID Date Data Source [id number] 05/02/2020 12:41:00 PM EST [facility] ([facility]) Name Value Range Interpretation Code Description Data Mary rce(s) Supporting Document(s) Hemoglobin 12.3 g/dL 12.0-15.5 Normal (applies to non-numeric resul ts) [facility] ([facility]) White Blood Count 9.5 10 4.0-10.0 Normal (applies to non-numeri c results) [facility] ([facility]) Red Blood Count 3.95 10 4.00-5.40 Below low normal [facility] ([facility]) Mean Corpuscular Volume 99.5 fl 80.0-96.0 Above high normal [facility] ([facility]) Hematocrit 39.3 % 36.0-47.0 Normal (applies to non-numeric resul ts) [facility] ([facility]) Mean Corpuscular HGB Conc 31.3 g/dL 32.0-36.5 Below low normal [facility] ([facility]) Mean Corpuscular Hemoglobin 31.1 pg 27.0-33.0 Norm al (applies to non-numeric results) [facility] ([facility]) Platelet Count, Automated 434 10 150-450 Normal (applies to non-numeric results) [facility] ([facility]) Neutrophils % 59.8 % 36.0-66.0 Normal (applies to non-numeric re sults) [facility] ([facility]) Red Cell Distribution Width 13.1 % 11.5-14.5 Norm al (applies to non-numeric results) [facility] ([facility]) [place] % 10.0 % 0.0-5.0 Above high normal [facility] ([facility]) Lymph % 25.2 % 24.0-44.0 Normal (applies to non-numeric resul ts) [facility] ([facility]) Baso % 1.0 % 0.0-1.0 Normal (applies to non-numeric resul ts) [facility] ([facility]) Eos % 3.7 % 0.0-3.0 Above high normal [facility] ([facility]) Immature Granulocyte % 0.3 % 0-3.0 Normal (applies to non-n umeric results) [facility] ([facility]) Nucleated Red Blood Cell % 0.0 % 0-0 Normal (applies to n on-numeric results) [facility] ([facility]) Lymph # 2.4 10 1.5-5.0 Normal (applies to non-numeric resul ts) [facility] ([facility]) Neutrophils # 5.7 10 1.5-8.5 Normal (applies to non-numeric re sults) [facility] ([facility]) [place] # 1.0 10 0.0-0.8 Above high normal [facility] ([facility]) Baso # 0.1 10 0.0-0.2 Normal (applies to non-numeric resul ts) [facility] ([facility]) Eos # 0.4 10 0.0-0.5 Normal (applies to non-numeric resul ts) [facility] ([facility]) ID Date Data Source [id number] 05/02/2020 12:41:00 PM EST [facility] ([facility]) Name Value Range Interpretation Code Description Data Mary rce(s) Supporting Document(s) Reticulocyte % 1.2 % 0.5-1.5 Normal (applies to non-numeric r esults) [facility] ([facility]) Reticulocyte # 46.5 10 17-77 Normal (applies to non-numeric r esults) [facility] ([facility]) Retic Hemoglobin Equivalent 35.5 pg 24-36 Norm al (applies to non-numeric results) [facility] ([facility]) ID Date Data Source [id number] 05/02/2020 12:41:00 PM EST [facility] ([facility]) Name Value Range Interpretation Code Description Data Mary rce(s) Supporting Document(s) Wero Result Calc Laboratory test result Normal (a pplies to non-numeric results) [facility] ([facility]) ID Date Data Source [id number] 05/02/2020 12:41:00 PM EST [facility] ([facility]) Name Value Range Interpretation Code Description Data Mary rce(s) Supporting Document(s) Haptoglobin [Mass/volume] in Serum or Plasma 194 mg/dL 42- 346 Normal (applies to non-numeric results) [facility] ([facility]) Performed at: RN - [facility] [address] [id number] Zipper Trimmer: Geovanna Stroud MD, Phone: [phone] ID Date Data Source [id number] 05/02/2020 12:41:00 PM EST [facility] ([facility]) Name Value Range Interpretation Code Description Data Mary rce(s) Supporting Document(s) Glucose, Fasting 75 mg/dL 70-100 Normal (applies to non-numeric results) [facility] ([facility]) Creatinine For GFR 1.11 mg/dL 0.55-1.30 Normal (applies to non -numeric results) [facility] ([facility]) Glomerular Filtration Rate 50.6 Normal (applies to n on-numeric results) [facility] ([facility]) <content>Units are mL/min/1.73 m2</content>
<content></content>
<content>Chronic Kidney Disease Staging per NKF:</content>
<content></content>
<content>Stage I & II GFR >=60 Normal to Mildly Decreased</content>
<content>Stage III GFR 30- 59 Moderately Decreased</content>
<content>Stage IV GFR 15-29 Severely Decreased</content>
<content>Stage V GFR <15 Very Little GFR Left</content>
<content>ESRD GFR <15 on BUS ASSISTANT</content>
<content></content> Blood Urea Nitrogen 14 mg/dL 7-18 Normal (applies to non-nume paula results) [facility] ([facility]) Potassium Serum 3.9 meq/L 3.5-5.1 Normal (applies to non-numeric results) [facility] ([facility]) Chloride Level 109 meq/L 98-107 Above high normal [facility] ([facility]) Sodium Level 142 meq/L 136-145 Normal (applies to non-numeric res ults) [facility] ([facility]) Calcium Level 9.5 mg/dL 8.8-10.2 Normal (applies to non-numeric re sults) [facility] ([facility]) Carbon Dioxide Level 31 meq/L 21-32 Normal (applies to non-num caren results) [facility] ([facility]) Anion Gap 2 meq/L 8-16 Below low normal [facility] Ast/Sgot 14 U/L 7-37 Normal (applies to non-numeric resul ts) [facility] ([facility]) Alt/SGPT 29 U/L 12-78 Normal (applies to non-numeric resul ts) [facility] ([facility]) Alkaline Phosphatase 86 U/L 45-117 Normal (applies to non-num caren results) [facility] ([facility]) Albumin 3.7 GM/DL 3.2-5.2 Normal (applies to non-numeric resul ts) [facility] ([facility]) Total Protein 7.2 GM/DL 6.4-8.2 Normal (applies to non-numeric re sults) [facility] ([facility]) Bilirubin,Total 0.3 mg/dL 0.2-1.0 Normal (applies to non-numeric results) [facility] ([facility]) Albumin/Globulin Ratio 1.1 1.2-2.2 Below low normal [facility] ([facility]) ID Date Data Source [id number] 05/02/2020 12:41:00 PM EST [facility] ([facility]) Name Value Range Interpretation Code Description Data Mary rce(s) Supporting Document(s) Lactate dehydrogenase [Enzymatic activit y/volume] in Serum or Plasma by Lactate to pyruvate reaction 210 U/L 84-246 Normal (applies to non-numeric re sults) [facility] ([facility]) ID Date Data Source [id number] 05/02/2020 12:41:00 PM EST [facility] ([facility]) Name Value Range Interpretation Code Description Data Mary rce(s) Supporting Document(s) Total Iron Binding Capacity 376 ug/dL 250-450 Norm al (applies to non-numeric results) [facility] ([facility]) Iron (Fe) 106 ug/dL 50-170 Normal (applies to non-numeric resul ts) [facility] ([facility]) Percent Saturation 28.2 % 13.2-45.0 Normal (applies to non-numer ic results) [facility] ([facility]) ID Date Data Source [id number] 05/02/2020 12:41:00 PM EST [facility] ([facility]) Name Value Range Interpretation Code Description Data Mary rce(s) Supporting Document(s) Laboratory test finding (navigational concept) Laboratory test r esult Normal (applies to non-numeric results) [facility]) REV'D BY O ADJAPONG Laboratory test finding (navigational concept) Laboratory test r esult Normal (applies to non-numeric results) [facility] ([facility]) NO MONOCLONAL BANDS NOTED. ID Date Data Source [id number] 05/02/2020 12:41:00 PM EST [facility] ([facility]) Name Value Range Interpretation Code Description Data Mary rce(s) Supporting Document(s) Albumin % 56.7 % 55.8-66.1 Normal (applies to non-numeric resul ts) [facility] ([facility]) Bmsnh-3-Gooovoozp % 12.7 % 7.1-11.8 Above high normal [facility] ([facility]) Lrmct-2-Pzuwsesh % 5.1 % 2.9-4.9 Above high normal [facility] ([facility]) Wxwy-7-Lpyvqmymb % 7.3 % 4.7-7.2 Above high normal [facility] ([facility]) Albumin 4.08 GM/DL 3.29-5.55 Normal (applies to non-numeric resul ts) [facility] ([facility]) Gamma Globulin % 11.0 % 11.1-18.8 Below low normal [facility] ([facility]) Wqdo-5-Blwsuustx % 7.2 % 3.2-6.5 Above high normal [facility] Mgqja-7-Lhoaxvscf 0.91 GM/DL 0.42-0.99 Normal (applies to non- numeric results) [facility] ([facility]) Hhzsq-7-Vooddgnts 0.37 GM/DL 0.17-0.41 Normal (applies to non- numeric results) [facility] ([facility]) Qstu-9-Xgkskhxbo 0.53 GM/DL 0.28-0.60 Normal (applies to non-numeric results) [facility] ([facility]) Yjaq-8-Qvfdcrthp 0.52 GM/DL 0.19-0.55 Normal (applies to non-numeric results) [facility] ([facility]) Gamma Globulins 0.79 GM/DL 0.65-1.58 Normal (applies to non-numeric results) [facility] ([facility]) Spep Interpretation Laboratory test result Samantha l (applies to non-numeric results) [facility] ([facility]) NO M-SPIKE(S)NOTED. Total Protein 7.2 GM/DL 6.4-8.2 Normal (applies to non-numeric re sults) [facility] ([facility]) Laboratory test finding (navigational concept) Laboratory test r esult Normal (applies to non-numeric results) [facility] ([facility]) REV'D BY Efrem LEMOS ID Date Data Source [id number] 05/02/2020 12:41:00 PM EST [facility] ([facility]) Name Value Range Interpretation Code Description Data Mary rce(s) Supporting Document(s) Ferritin [Mass/volume] in Serum or Plasma 72 ng/mL 8-252 Normal (applies to non- numeric results) [facility] ([facility]) ID Date Data Source [id number] 04/02/2020 12:00:00 AM [facility] Temitope Contreras DO Patient Name: DAYAMI SULLIVANE[address] Date of : 1940te 1 Date of Exam: 04/02/2020KIT Montesinos [id number]#: Fax: [phone] EXAM: HIP LEFT UNILATERAL (COMPLETE) X-RAYCLINICAL INFORMATION: Atraumatic pain x 2 weeks.Two views. These images were obtained using digital radiography.Comparison is an AP pelvis obtained 09/09/2012.Early marginal os teophyte formation is seen involving the superolateralacetabulum. AP examination of the pelvis from 09/09/2012 shows a similarfinding in the right acetabulum. The hip joint space is symmetric and wellmaintained. There is no fracture, dislocation, or subluxation.IMPRESSION:Chronic changes as described above.TASHA Heller/Juan C you for referring MURALI SULLIVAN to our office. Electronically Signed - TYREE DELEON DO 04/02/20 16:46 Name Value Range Interpretation Code Description Data Mary rce(s) Supporting Document(s) ID Date Data Source [id number] 02/27/2020 09:04:00 AM EDT [facility] ([facility]) Name Value Range Interpretation Code Description Data Mary rce(s) Supporting Document(s) Natriuretic peptide.B prohormone N-Terminal [Mass/volu me] in Serum or Plasma 140 pg/mL Normal (applies to non-numeric results) [facility] ([facility]) FAX TO [phone] FAX TO [phone] Magnesium [Mass/volume] in Serum or Plasma 2.9 mg/dL 1.8-2.4 Above high normal [facility] ([facility]) FAX TO [phone] FAX TO [phone] Thyrotropin [Units/volume] in Serum or Plasma 1.080 uIU/ML 0. 358-3.740 Normal (applies to non-numeric results) [facility] ([facility]) FAX TO [phone] FAX TO [phone] ID Date Data Source [id number] 02/27/2020 09:04:00 AM EDT [facility]) Name Value Range Interpretation Code Description Data Mary rce(s) Supporting Document(s) Glucose, Fasting 86 mg/dL 70-100 Normal (applies to non-numeric results) [facility] ([facility]) Glomerular Filtration Rate 54.0 Normal (applies to n on-numeric results) [facility] ([facility]) <content>Units are mL/min/1.73 m2</content>
<content></content>
<content>Chronic Kidney Disease Staging per NKF:</content>
<content></content>
<content>Stage I & II GFR >=60 Normal to Mildly Decreased</content>
<content>Stage III GFR 30- 59 Moderately Decreased</content>
<content>Stage IV GFR 15-29 Severely Decreased</content>
<content>Stage V GFR <15 Very Little GFR Left</content>
<content>ESRD GFR <15 on BUS ASSISTANT</content>
<content></content> Creatinine For GFR 1.05 mg/dL 0.55-1.30 Normal (applies to non -numeric results) [facility] ([facility]) Blood Urea Nitrogen 15 mg/dL 7-18 Normal (applies to non-nume paula results) [facility] ([facility]) Chloride Level 109 meq/L 98-107 Above high normal [facility] ([facility]) Sodium Level 144 meq/L 136-145 Normal (applies to non-numeric res ults) [facility] ([facility]) Potassium Serum 4.6 meq/L 3.5-5.1 Normal (applies to non-numeric results) [facility] ([facility]) Carbon Dioxide Level 31 meq/L 21-32 Normal (applies to non-num caren results) [facility] ([facility]) Anion Gap 4 meq/L 8-16 Below low normal [facility] ( [facility]) Calcium Level 8.9 mg/dL 8.8-10.2 Normal (applies to non-numeric re sults) [facility] ([facility]) Alt/SGPT 24 U/L 12-78 Normal (applies to non-numeric resul ts) [facility] ([facility]) Ast/Sgot 15 U/L 7-37 Normal (applies to non-numeric resul ts) [facility] ([facility]) Total Protein 6.8 GM/DL 6.4-8.2 Normal (applies to non-numeric re sults) [facility] ([facility]) Bilirubin,Total 0.3 mg/dL 0.2-1.0 Normal (applies to non-numeric results) [facility] ([facility]) Alkaline Phosphatase 82 U/L 45-117 Normal (applies to non-num caren results) [facility] ([facility]) Albumin/Globulin Ratio 1.1 1.2-2.2 Below low normal [facility] ([facility]) Albumin 3.5 GM/DL 3.2-5.2 Normal (applies to non-numeric resul ts) [facility] ([facility]) ID Date Data Source [id number] 02/27/2020 09:04:00 AM EDT [facility] ([facility]) Name Value Range Interpretation Code Description Data Mary rce(s) Supporting Document(s) Red Blood Count 3.48 10 4.00-5.40 Below low normal [facility] ([facility]) Hemoglobin 10.6 g/dL 12.0-15.5 Below low normal [facility] ( [facility]) White Blood Count 8.8 10 4.0-10.0 Normal (applies to non-numeri c results) [facility] ([facility]) Mean Corpuscular Volume 100.3 fl 80.0-96.0 Above high normal [facility] ([facility]) Hematocrit 34.9 % 36.0-47.0 Below low normal [facility] ( [facility]) Mean Corpuscular Hemoglobin 30.5 pg 27.0-33.0 Norm al (applies to non-numeric results) [facility] ([facility]) Mean Corpuscular HGB Conc 30.4 g/dL 32.0-36.5 Below low normal [facility] ([facility]) Red Cell Distribution Width 13.5 % 11.5-14.5 Norm al (applies to non-numeric results) [facility] ([facility]) Platelet Count, Automated 357 10 150-450 Normal (applies to non-numeric results) [facility] ([facility]) Lymph % 28.9 % 24.0-44.0 Normal (applies to non-numeric resul ts) [facility] ([facility]) Neutrophils % 56.1 % 36.0-66.0 Normal (applies to non-numeric re sults) [facility] ([facility]) Baso % 1.1 % 0.0-1.0 Above high normal [facility] ([facility]) Eos % 2.8 % 0.0-3.0 Normal (applies to non-numeric resul ts) [facility] ([facility]) [place] % 10.9 % 0.0-5.0 Above high normal [facility] ([facility]) Neutrophils # 4.9 10 1.5-8.5 Normal (applies to non-numeric re sults) [facility] ([facility]) Immature Granulocyte % 0.2 % 0-3.0 Normal (applies to non-n umeric results) [facility] ([facility]) Nucleated Red Blood Cell % 0.0 % 0-0 Normal (applies to n on-numeric results) [facility] ([facility]) [place] # 1.0 10 0.0-0.8 Above high normal [facility] ([facility]) Lymph # 2.5 10 1.5-5.0 Normal (applies to non-numeric resul ts) [facility] ([facility]) Eos # 0.3 10 0.0-0.5 Normal (applies to non-numeric resul ts) [facility] ([facility]) Baso # 0.1 10 0.0-0.2 Normal (applies to non-numeric resul ts) [facility] ([facility]) ID Date Data Source [id number] 12/21/2019 06:30:00 AM EDT [facility] ([facility]) Name Value Range Interpretation Code Description Data Mary rce(s) Supporting Document(s) Calcidiol [Mass/volume] in Serum or Plasma 59.2 ng/mL 30.0- 100.0 Normal (applies to non-numeric results) [facility] ([facility]) ID Date Data Source [id number] 12/21/2019 06:30:00 AM EDT [facility] ([facility]) Name Value Range Interpretation Code Description Data Mary rce(s) Supporting Document(s) Thyroid Stimulating Hormone 2.740 uIU/ML 0.358-3.740 Norm al (applies to non- numeric results) [facility] ([facility]) Free T4 1.03 ng/dL 0.76-1.46 Normal (applies to non-numeric resul ts) [facility] ([facility]) ID Date Data Source [id number] 12/21/2019 06:30:00 AM EDT [facility] ([facility]) Name Value Range Interpretation Code Description Data Mary rce(s) Supporting Document(s) Blood Urea Nitrogen 25 mg/dL 7-18 Above high normal [facility] ([facility]) Creatinine For GFR 1.42 mg/dL 0.55-1.30 [facility] Glucose, Fasting 95 mg/dL 70-100 Normal (applies to non-numeric results) [facility] ([facility]) Potassium Serum 3.5 meq/L 3.5-5.1 Normal (applies to non-numeric results) [facility] ([facility]) Glomerular Filtration Rate 38.1 Below low normal [facility] ([facility]) <content>Units are mL/min/1.73 m2</content>
<content></content>
<content>Chronic Kidney Disease Staging per NKF:</content>
<content></content>
<content>Stage I & II GFR >=60 Normal to Mildly Decreased</content>
<content>Stage III GFR 30- 59 Moderately Decreased</content>
<content>Stage IV GFR 15-29 Severely Decreased</content>
<content>Stage V GFR <15 Very Little GFR Left</content>
<content>ESRD GFR <15 on BUS ASSISTANT</content>
<content></content> Sodium Level 143 meq/L 136-145 Normal (applies to non-numeric res ults) [facility] ([facility]) Chloride Level 107 meq/L 98-107 Normal (applies to non-numeric r esults) [facility] ([facility]) Anion Gap 6 meq/L 8-16 Below low normal [facility] Carbon Dioxide Level 30 meq/L 21-32 Normal (applies to non-num caren results) [facility] ([facility]) Ast/Sgot 16 U/L 7-37 Normal (applies to non-numeric resul ts) [facility] ([facility]) Alt/SGPT 24 U/L 12-78 Normal (applies to non-numeric resul ts) [facility] ([facility]) Calcium Level 9.0 mg/dL 8.8-10.2 Normal (applies to non-numeric re sults) [facility] ([facility]) Bilirubin,Total 0.3 mg/dL 0.2-1.0 Normal (applies to non-numeric results) [facility] ([facility]) Alkaline Phosphatase 72 U/L 45-117 Normal (applies to non-num caren results) [facility] ([facility]) Total Protein 6.9 GM/DL 6.4-8.2 Normal (applies to non-numeric re sults) [facility] ([facility]) Albumin/Globulin Ratio 1.1 1.2-2.2 Below low normal [facility] Albumin 3.6 GM/DL 3.2-5.2 Normal (applies to non-numeric resul ts) [facility] ([facility]) ID Date Data Source [id number] 12/21/2019 06:30:00 AM EDT [facility] ([facility]) Name Value Range Interpretation Code Description Data Mary rce(s) Supporting Document(s) Red Blood Count 3.63 10 4.00-5.40 Below low normal [facility] ([facility]) Hemoglobin 11.2 g/dL 12.0-15.5 Below low normal [facility] ( [facility]) White Blood Count 8.5 10 4.0-10.0 Normal (applies to non-numeri c results) [facility] ([facility]) Hematocrit 35.9 % 36.0-47.0 Below low normal [facility] ( [facility]) Mean Corpuscular Hemoglobin 30.9 pg 27.0-33.0 Norm al (applies to non-numeric results) [facility] ([facility]) Mean Corpuscular Volume 98.9 fl 80.0-96.0 Above high normal [facility] ([facility]) Platelet Count, Automated 326 10 150-450 Normal (applies to non-numeric results) [facility] ([facility]) Red Cell Distribution Width 12.7 % 11.5-14.5 Norm al (applies to non-numeric results) [facility] ([facility]) Mean Corpuscular HGB Conc 31.2 g/dL 32.0-36.5 Below low normal [facility] ([facility]) Lymph % 38.6 % 24.0-44.0 Normal (applies to non-numeric resul ts) [facility] ([facility]) Neutrophils % 48.1 % 36.0-66.0 Normal (applies to non-numeric re sults) [facility] ([facility]) [place] % 10.2 % 0.0-5.0 Above high normal [facility] ([facility]) Eos % 2.0 % 0.0-3.0 Normal (applies to non-numeric resul ts) [facility] ([facility]) Immature Granulocyte % 0.2 % 0-3.0 Normal (applies to non-n umeric results) [facility] ([facility]) Baso % 0.9 % 0.0-1.0 Normal (applies to non-numeric resul ts) [facility] ([facility]) Neutrophils # 4.1 10 1.5-8.5 Normal (applies to non-numeric re sults) [facility] ([facility]) Nucleated Red Blood Cell % 0.0 % 0-0 Normal (applies to n on-numeric results) [facility] ([facility]) Eos # 0.2 10 0.0-0.5 Normal (applies to non-numeric resul ts) [facility] ([facility]) [place] # 0.9 10 0.0-0.8 Above high normal [facility] ([facility]) Lymph # 3.3 10 1.5-5.0 Normal (applies to non-numeric resul ts) [facility] ([facility]) Baso # 0.1 10 0.0-0.2 Normal (applies to non-numeric resul ts) [facility] ([facility]) ID Date Data Source [id number] 12/19/2019 12:00:00 AM EDT [facility] Patient Name: DAYAMI [id number] [place] [address] [place] [facility] 1940[facility] [id number] Date of Exam: 12/19/2019#: Fax: EXAM: CT BRAIN WITHOUT CONTRASTPROCEDURE INFORMATION:Exam: CT Head Without ContrastExam date and time: 12/19/2019 8:24 AM Age: 79 years oldClinical indication: Injury or trauma; Fall; Initial encounter; Abrasion;Eye; LeftTECHNIQUE: Imaging protocol: Computed tomography of the head withoutcontrast. 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 There arechronic lacunar infarcts.Ventricles: Normal. No ventriculomegaly.Bones/joints: Unremarkable. No acute fracture.Sinuses: Visualized sinuses are unremarkable. No fluid levels.Mastoid air cells: Visualized mastoid air cells are well aerated.Vasculature: There is moderate intracranial vascular calcification.Soft tissues: Unremarkable.IMPRESSION:No acute intracranial findings identified. Please refer to incidentalfindings in body of report.Thank you for allowing us to participate in the care of your patient.Dictated and Authenticated by: Azar Vann MD 12/19/2019 10:23 AM [place]NanciV/Juan C you for referring MURALI SULLIVAN to our office. Electronically Signed - [facility] 12/19/19 10:36 Name Value Range Interpretation Code Description Data Mary rce(s) Supporting Document(s) ID Date Data Source [id number] 10/23/2019 08:45:37 PM EDT [facility] Name Value Range Interpretation Code Description Data Mary rce(s) Supporting Document(s) LITHIUM 0.64 mmol/L (0.60-1.50) Laboratory [facility] ID Date Data Source VENIPUNCTURE OP 10/23/2019 12:00:00 AM EDT [facility] ([facility]) Name Value Range Interpretation Code Description Data Mary rce(s) Supporting Document(s) VENIPUNCTURE VENIPUNCTURE eCW1 ([facility]) ID Date Data Source LITHIUM 10/23/2019 12:00:00 AM EDT [facility] ([facility]) Name Value Range Interpretation Code Description Data Mary rce(s) Supporting Document(s) 0.64 0.60-1.50 LITHIUM [facility] ([facility]) ID Date Data Source UA MICRO 10/23/2019 12:00:00 AM EDT [facility]1 ([facility]) Name Value Range Interpretation Code Description Data Mary rce(s) Supporting Document(s) 6-10 0-5 WBC /HPF [facility] ([facility]) 0-2 0-2 RBC /HPF [facility] ([facility]) 1+ SQUAM EPI/hpv eCW1 ([facility]) 1+ RENAL EPI/hpf eCW1 ([facility]) NONE SEEN TRANS EPI/hpf eCW1 ([facility]) 2+ BACTERIA/LPF eCW1 ([facility]) NONE SEEN F GRAN ELECTRICAL DESIGN TECHNOLOGIST/LPF [facility]1 [facility] 1+ MUCOUS/hpf [facility]) FEW HYALINE ELECTRICAL DESIGN TECHNOLOGIST/LPF [facility]CW1 ([facility]) NONE SEEN OTHER /hpf [facility]1 [facility] NONE SEEN WBC CAST [facility] ([facility] NONE SEEN NONE SEEN CELLULAR CAST eCW1 ([facility]) NONE SEEN CRS GRAN ELECTRICAL DESIGN TECHNOLOGIST eCW1 ([facility]) NONE SEEN RBC CAST [facility] ([facility]) NONE SEEN TRIPHOSPH CRY eCW1 ([facility]) NONE SEEN CA [place] eCW1 [facility] NONE SEEN OTHER CAST [facility] NEGATIVE URIC ACID [place] [facility]CW1 [facility]) NONE PRESENT SPERMATAZOA eCW1 [facility]) NONE SEEN TRICHOMONAS [facility] NONE SEEN YEAST [facility] ([facility] ID Date Data Source [id number] 10/23/2019 12:00:00 AM EDT [facility]CW1 ([facility]) Name Value Range Interpretation Code Description Data Mary rce(s) Supporting Document(s) Yellow YELLOW COLOR [facility]CW1 ([facility]) Negative NEGATIVE PROTEIN [facility] ([facility]) 1.020 SPEC.GRAV. [facility]CW1 ([facility]) Clear CLEAR CLARITY eCW1 ([facility]) 7.0 5.0 - 8.0 PH eCW1 ([facility]) Negative NEGATIVE GLUCOSE [facility]CW1 ([facility]) Negative NEGATIVE KETONES eCW1 ([facility]) Negative NEGATIVE BILIRUBIN eCW1 ([facility]) 0.2 0.2-1.0 UROBILINOGEN eCW1 ([facility]) Negative NEGATIVE BLOOD [facility]CW1 ([facility]) 1+ NEGATIVE LEUKOCYTES eCW1 ([facility] Negative NEGATIVE NITRITE [facility]CW1 ([facility]) ID Date Data Source PTH,INTACT 10/23/2019 12:00:00 AM EDT [facility]CW1 ([facility]) Name Value Range Interpretation Code Description Data Mary rce(s) Supporting Document(s) 69.2 8.2-83.5 PTH,INTACT eCW1 ([facility]) ID Date Data Source Urine Protein.Creat ratio 10/23/2019 12:00:00 AM EDT [facility] ([facility] Name Value Range Interpretation Code Description Data Mary rce(s) Supporting Document(s) 26.0 6.0-11.9 U-PROTEIN eCW1 ([facility]) 91.5 30.0-125.0 U-CREA eCW1 ([facility]) 0.3 0.0-0.2 U-PROT/CREAT eCW1 ([facility]) ID Date Data Source CBC w/DIFF 10/23/2019 12:00:00 AM EDT eCW1 ([facility]) Name Value Range Interpretation Code Description Data Mary rce(s) Supporting Document(s) 11.7 12.0-18.0 HGB eCW1 ([facility]) 3.77 4.20-6.30 RBC eCW1 ([facility]) 8.8 4.1-10.9 WBC eCW1 ([facility]) 37.0 36.0-51.0 HCT eCW1 ([facility]) 98.1 80.0-97.0 MCV eCW1 ([facility]) 31.6 31.0-36.0 MCHC eCW1 ([facility]) 31.0 26.0-32.0 MCH eCW1 ([facility]) 8.7 7.4-10.4 MPV eCW1 ([facility]) 387 140-440 PLT eCW1 ([facility]) 46.0 36.4-46.3 RDW-SD eCW1 ([facility]) 12.6 11.5-15.5 RDW-CV eCW1 ([facility]) 0.80 0.20-0.90 MONO # eCW1 ([facility]) 2.26 0.60-4.10 LYMPH # eCW1 ([facility]) 5.34 1.60-6.10 NEUT # eCW1 ([facility]) 0.06 0.00-0.10 BASO # eCW1 ([facility]) 0.28 0.00-0.50 EO # [facility]CW1 ([facility]) 61.1 34.0-71.1 NEUT % eCW1 ([facility] 25.8 10.0-58.5 LYMPH % eCW1 ([facility]) 9.1 10.0-58.5 MONO % eCW1 ([facility]) 0.7 0.1-1.2 BASO % eCW1 ([facility]) 0.01 LOW IG# eCW1 ([facility]) 3.2 0.7-7.0 EO % eCW1 ([facility]) 0.10 0.00-0.43 IG% eCW1 ([facility]) ID Date Data Source [facility] 10/23/2019 12:00:00 AM EDT eCW1 ([facility]) Name Value Range Interpretation Code Description Data Mary rce(s) Supporting Document(s) 16 7-18 BUN [facility]1 ([facility]) 3.6 3.4-5.0 ALBUMIN eCW1 ([facility]) 46.18 >=60.00 GFR NON-AFR.AM [facility]CW1 ([facility]) 9.1 8.5-10.1 CALCIUM eCW1 ([facility]) 1.2 0.6-1.3 CREATININE eCW1 ([facility] 55.88 >=60.00 GFR AFR.AM eCW1 ([facility]) 4.1 3.6-5.2 POTASSIUM eCW1 ([facility]) 144 135-145 SODIUM eCW1 ([facility]) 7.6 6.4-8.2 TOTAL PROTEIN eCW1 ([facility]) 105 100-108 CHLORIDE eCW1 ([facility]) 30.7 21.0-32.0 CO2 eCW1 ([facility]) 94.0 70.0-110.0 GLUCOSE eCW1 ([facility] 82 46-116 ALPI eCW1 ([facility]) 0.40 0.20-1.00 T BILIRUBIN [facility] 14 15-37 AST [facility]CW1 ([facility]) 8 5-15 ANION GAP eCW1 ([facility] 26 30-65 ALTI [facility]CW1 ([facility] ID Date Data Source [id number] 09/13/2019 08:33:00 AM EDT [facility] Name Value Range Interpretation Code Description Data Mary rce(s) Supporting Document(s) Osmolality of Serum or Plasma 297 MOSM/KG 280-301 No rmal (applies to non-numeric results) [facility] ([facility]) Sodium [Moles/volume] in Urine Laboratory test result [facility] ([facility]) Osmolality of Urine Laboratory test result [facility] ([facility]) ID Date Data Source [id number] 09/13/2019 08:33:00 AM EDT [facility]) Name Value Range Interpretation Code Description Data Mary rce(s) Supporting Document(s) Glucose, Fasting 79 mg/dL 70-100 Normal (applies to non-numeric results) [facility] ([facility]) Glomerular Filtration Rate 45.1 Normal (applies to n on-numeric results) [facility] ([facility]) <content>Units are mL/min/1.73 m2</content>
<content></content>
<content>Chronic Kidney Disease Staging per NKF:</content>
<content></content>
<content>Stage I & II GFR >=60 Normal to Mildly Decreased</content>
<content>Stage III GFR 30- 59 Moderately Decreased</content>
<content>Stage IV GFR 15-29 Severely Decreased</content>
<content>Stage V GFR <15 Very Little GFR Left</content>
<content>ESRD GFR <15 on BUS ASSISTANT</content>
<content></content> Blood Urea Nitrogen 18 mg/dL 7-18 Normal (applies to non-nume paula results) [facility] ([facility]) Creatinine For GFR 1.23 mg/dL 0.55-1.30 Normal (applies to non -numeric results) [facility] ([facility]) Potassium Serum 4.0 meq/L 3.5-5.1 Normal (applies to non-numeric results) [facility] ([facility]) Chloride Level 108 meq/L 98-107 Above high normal [facility] ([facility]) Sodium Level 143 meq/L 136-145 Normal (applies to non-numeric res ults) [facility] ([facility]) Anion Gap 4 meq/L 8-16 Below low normal [facility] ( [facility]) Carbon Dioxide Level 31 meq/L 21-32 Normal (applies to non-num caren results) [facility] ([facility]) Calcium Level 8.9 mg/dL 8.8-10.2 Normal (applies to non-numeric re sults) [facility] ([facility]) ID Date Data Source [id number] 09/13/2019 08:33:00 AM EDT [facility]) Name Value Range Interpretation Code Description Data Mary rce(s) Supporting Document(s) Laboratory test finding (navigational concept) 293 mOsmol/kg 2 80-301 Normal (applies to non-numeric results) [facility] ([facility]) Performed at: [address] [id number] Trimmer: Sondra Alegria MD, Phone: [phone] Laboratory test finding (navigational concept) 3.0 pg/mL 0 .0-4.7 Normal (applies to non-numeric results) [facility] ([facility]) . Results of this test are labeled for research purposes only by the assay's mechanical engineering specialist. The performance characteristics of this assay have not been established by the mechanical engineering specialist. The result should not be used for treatment or for diagnostic purposes without confirmation of the diagnosis by another medically established diagnostic product or procedure. The performance [facility] ID Date Data Source [id number] 09/13/2019 08:27:00 AM EDT [facility] ([facility]) Name Value Range Interpretation Code Description Data Mary rce(s) Supporting Document(s) Osmolality of Urine 230 MOSM/KG 500-800 Below low normal [facility] ([facility]) Urine Source: URINE, CLEAN CATCH Sodium [Moles/volume] in Urine 33 meq/L N ormal (applies to non-numeric results) [facility] ([facility]) Urine Source: URINE, CLEAN CATCH ID Date Data Source [id number] 09/13/2019 08:27:00 AM EDT [facility] ([facility]) Name Value Range Interpretation Code Description Data Mary rce(s) Supporting Document(s) Color, Urine Laboratory test result Normal (applies to non -numeric results) [facility] ([facility]) Appearance, Urine Laboratory test result Normal (applies to non-numeric results) [facility] ([facility]) Specific Early Urine Auto 1.008 1.002-1.035 Norm al (applies to non-numeric results) [facility] ([facility]) Protein, Urine Auto Laboratory test result Above high norm al [facility] ([facility]) PH,Urine 7.0 units 5.0-9.0 Normal (applies to non-numeric resul ts) [facility] ([facility]) Ketone, Urine Auto Laboratory test result Normal (applies to non-numeric results) [facility] ([facility]) Glucose, Urine (Ua) Auto Laboratory test result Normal (applies to non-numeric results) [facility] ([facility]) Bilirubin, Urine Auto Laboratory test result Nor mal (applies to non-numeric results) [facility] [facility] Urobilinogen, Urine Auto 0.2 mg/dL 0.0-2.0 Normal (applies to non-numeric results) [facility] ([facility]) Nitrite, Urine Auto Laboratory test result Samantha l (applies to non-numeric results) [facility] ([facility]) Leukocyte Esterase, Urine Auto Laboratory test result Abov e high normal [facility] ([facility]) RBC, Urine Auto 1 /HPF 0-3 Normal (applies to non-numeric results) [facility] ([facility]) WBC, Urine Auto 14 /HPF 0-3 Above high normal [facility] ([facility]) Blood, Urine Blood Laboratory test result Normal (applies to non-numeric results) [facility] ([facility]) Mucus, Urine Laboratory test result Normal (applies to non -numeric results) [facility] ([facility]) Bacteria, Urine Auto Laboratory test result Norm al (applies to non-numeric results) [facility] ([facility]) Squamous Epithelial Cell Ur AU 0 /HPF 0-6 N ormal (applies to non-numeric results) [facility] ([facility]) Hyaline Cast, Urine Auto 1 /LPF 0-1 Normal (applies to non -numeric results) [facility] ([facility]) ID Date Data Source [id number] 08/14/2019 12:00:00 AM EDT [facility] Kirk Rodrigues Pa-C Patient Name: DAYAMI SULLIVANE[address] Date of : [address] Date of Exam: 08/14/2019KIT Montesinos [id number]#: Fax: [phone] EXAM: LUMBOSACRAL SPINE COMPLETE WITH BENDING XRAYCLINICAL INFORMATION: Pain with radicular symptoms.Comparison is 07/29/2006.Seven views with flexion and extension bending views. These images wereobtained using digi katt radiography.There is lujihsta-da-jcwzqt posterior disc space narrowing at every levelwhich has developed since the last exam and particularly seen at the L3-4level. There is anterior lipping at every level which has increased fromthe prior exam. Vertebral body height and alignment is unchanged.Degenerative facet joint changes are seen at every level bilaterally butparticularly at L5- S1, also increased from the prior exam. There is nospondylolysis or spondylolisthesis. The pedicles are again seen to beintact bilaterally. Once again, partial syndesmophyte formation is seen atevery level bilaterally but increased from the prior exam.Flexion and extension bending views show no evidence of instability.IMPRESSION:Chronic changes as described above.TASHA Heller/Juan C you for referring MURALI SULLIVAN to our office. Electronically Signed - TYREE DELEON DO 08/14/19 17:07 Name Value Range Interpretation Code Description Data Mary rce(s) Supporting Document(s) ID Date Data Source [id number] 08/14/2019 12:00:00 AM EDT [facility] Kirk Rodrigues Pa-C Patient Name: DAYAMI SULLIVANE[address] Date of : 1940[address] [birth year] Date of Exam: 08/14/2019KIT Montesinos [id number]#: Fax: [phone] EXAM: KNEE RIGHT (COMPLETE) X-RAYCLINICAL INFORMATION: Pain.Five views.Comparison 05/20/2018 which showed chronic changes.There has been no significant change from the prior exam. Minimalosteophytosis of the articular surface of the patella, status quo, withslight patellofemoral joint space narrowing. Mild lateral compartmentalnarrowing, status quo. No acute fracture, dislocation, or subluxation.IMPRESSION:No significant change from the prior exam as described above.TASHA Heller/Juan C you for referring MURALI SULLIVAN to our office. Electronically Signed - TYREE DELEON DO 08/14/19 17:07 Name Value Range Interpretation Code Description Data Mary rce(s) Supporting Document(s) ID Date Data Source WOUND CULTURE 08/14/2019 12:00:00 AM EDT [facility]CW1 ([facility]) Name Value Range Interpretation Code Description Data Mary rce(s) Supporting Document(s) FULL REPORT IN LAB NOTES ([facility]CW and [facility]). WOUND CULTURE eCW1 ([facility]) ID Date Data Source [id number] 08/01/2019 08:35:00 AM EDT [facility] ([facility]) Name Value Range Interpretation Code Description Data Mary rce(s) Supporting Document(s) Free T4 0.92 ng/dL 0.76-1.46 Normal (applies to non-numeric resul ts) [facility] ([facility]) Thyroid Stimulating Hormone 1.040 uIU/ML 0.358-3.740 Norm al (applies to non- numeric results) [facility] ([facility]) ID Date Data Source [id number] 08/01/2019 08:35:00 AM EDT [facility] ([facility]) Name Value Range Interpretation Code Description Data Mary rce(s) Supporting Document(s) Glucose, Fasting 95 mg/dL 70-100 Normal (applies to non-numeric results) [facility] ([facility]) Blood Urea Nitrogen 23 mg/dL 7-18 Above [facility] Sodium Level 142 meq/L 136-145 Normal (applies to non-numeric res ults) [facility] ([facility]) Creatinine For GFR 1.21 mg/dL 0.55-1.30 Normal (applies to non -numeric results) [facility] ([facility]) Glomerular Filtration Rate 45.9 Normal (applies to n on-numeric results) [facility] ([facility]) <content>Units are mL/min/1.73 m2</content>
<content></content>
<content>Chronic Kidney Disease Staging per NKF:</content>
<content></content>
<content>Stage I & II GFR >=60 Normal to Mildly Decreased</content>
<content>Stage III GFR 30- 59 Moderately Decreased</content>
<content>Stage IV GFR 15-29 Severely Decreased</content>
<content>Stage V GFR <15 Very Little GFR Left</content>
<content>ESRD GFR <15 on BUS ASSISTANT</content>
<content></content> Carbon Dioxide Level 29 meq/L 21-32 Normal (applies to non-num caren results) [facility] ([facility]) Chloride Level 109 meq/L 98-107 Above high normal [facility] ([facility]) Potassium Serum 3.5 meq/L 3.5-5.1 Normal (applies to non-numeric results) [facility] ([facility]) Anion Gap 4 meq/L 8-16 Below low normal [facility] ( [facility]) Calcium Level 9.3 mg/dL 8.8-10.2 Normal (applies to non-numeric re sults) [facility] ([facility]) Ast/Sgot 15 U/L 7-37 Normal (applies to non-numeric resul ts) [facility] ([facility]) Bilirubin,Total 0.5 mg/dL 0.2-1.0 Normal (applies to non-numeric results) [facility] ([facility]) Alkaline Phosphatase 75 U/L 45-117 Normal (applies to non-num caren results) [facility] ([facility]) Alt/SGPT 31 U/L 12-78 Normal (applies to non-numeric resul ts) [facility] ([facility]) Total Protein 6.9 GM/DL 6.4-8.2 Normal (applies to non-numeric re sults) [facility] ([facility]) Albumin 3.8 GM/DL 3.2-5.2 Normal (applies to non-numeric resul ts) [facility] ([facility]) Albumin/Globulin Ratio 1.23 1.00-1.93 Normal (applies to non-numeric results) [facility] ([facility]) ID Date Data Source [id number] 08/01/2019 08:35:00 AM EDT [facility]) Name Value Range Interpretation Code Description Data Mary rce(s) Supporting Document(s) White Blood Count 9.3 10 4.0-10.0 Normal (applies to non-numeri c results) [facility] ([facility]) Mean Corpuscular Volume 97.7 fl 80.0-96.0 Above high normal [facility] ([facility]) Hemoglobin 12.1 g/dL 12.0-15.5 Normal (applies to non-numeric resul ts) [facility] ([facility]) Hematocrit 37.5 % 36.0-47.0 Normal (applies to non-numeric resul ts) [facility] ([facility]) Red Blood Count 3.84 10 4.00-5.40 Below low normal [facility] ([facility]) Mean Corpuscular Hemoglobin 31.5 pg 27.0-33.0 Norm al (applies to non-numeric results) [facility] ([facility]) Red Cell Distribution Width 12.8 % 11.5-14.5 Norm al (applies to non-numeric results) [facility] ([facility]) Mean Corpuscular HGB Conc 32.3 g/dL 32.0-36.5 Normal (applies to non-numeric results) [facility] ([facility]) Neutrophils % 51.8 % 36.0-66.0 Normal (applies to non-numeric re sults) [facility] ([facility]) Platelet Count, Automated 345 10 150-450 Normal (applies to non-numeric results) [facility] ([facility]) Lymph % 34.7 % 24.0-44.0 Normal (applies to non-numeric resul ts) [facility] ([facility]) [place] % 9.6 % 0.0-5.0 Above high normal [facility] ([facility]) Baso % 1.0 % 0.0-1.0 Normal (applies to non-numeric resul ts) [facility] ([facility]) Eos % 2.8 % 0.0-3.0 Normal (applies to non-numeric resul ts) [facility] ([facility]) Immature Granulocyte % 0.1 % 0-3.0 Normal (applies to non-n umeric results) [facility] ([facility]) Nucleated Red Blood Cell % 0.0 % 0-0 Normal (applies to n on-numeric results) [facility] ([facility]) Lymph # 3.2 10 1.5-5.0 Normal (applies to non-numeric resul ts) [facility] ([facility]) Neutrophils # 4.8 10 1.5-8.5 Normal (applies to non-numeric re sults) [facility] ([facility]) [place] # 0.9 10 0.0-0.8 Above high normal [facility] ([facility]) Eos # 0.3 10 0.0-0.5 Normal (applies to non-numeric resul ts) [facility] ([facility]) Baso # 0.1 10 0.0-0.2 Normal (applies to non-numeric resul ts) [facility] ([facility]) ID Date Data Source [id number] 06/20/2019 08:11:00 AM EST [facility] ([facility]) Name Value Range Interpretation Code Description Data Mary rce(s) Supporting Document(s) White Blood Count 9.6 10 4.0-10.0 Normal (applies to non-numeri c results) [facility] ([facility]) Red Blood Count 3.84 10 4.00-5.40 Below low normal [facility] ([facility]) Hematocrit 39.0 % 36.0-47.0 Normal (applies to non-numeric resul ts) [facility] ([facility]) Hemoglobin 11.7 g/dL 12.0-15.5 Below low normal [facility] ( [facility]) Mean Corpuscular Hemoglobin 30.5 pg 27.0-33.0 Norm al (applies to non-numeric results) [facility] ([facility]) Mean Corpuscular Volume 101.6 fl 80.0-96.0 Above high normal [facility] ([facility]) Red Cell Distribution Width 13.0 % 11.5-14.5 Norm al (applies to non-numeric results) [facility] ([facility]) Mean Corpuscular HGB Conc 30.0 g/dL 32.0-36.5 Below low normal [facility] ([facility]) Neutrophils % 51.9 % 36.0-66.0 Normal (applies to non-numeric re sults) [facility] ([facility]) Lymph % 31.4 % 24.0-44.0 Normal (applies to non-numeric resul ts) [facility] ([facility]) Platelet Count, Automated 403 10 150-450 Normal (applies to non-numeric results) [facility] ([facility]) Baso % 1.2 % 0.0-1.0 Above high normal [facility] ([facility]) Eos % 5.4 % 0.0-3.0 Above high normal [facility] ([facility]) [place] % 9.9 % 0.0-5.0 Above high normal [facility] ([facility]) Nucleated Red Blood Cell % 0.0 % 0-0 Normal (applies to n on-numeric results) [facility] ([facility]) Immature Granulocyte % 0.2 % 0-3.0 Normal (applies to non-n umeric results) [facility] ([facility]) Neutrophils # 5.0 10 1.5-8.5 Normal (applies to non-numeric re sults) [facility] ([facility]) Lymph # 3.0 10 1.5-5.0 Normal (applies to non-numeric resul ts) [facility] ([facility]) [place] # 1.0 10 0.0-0.8 Above high normal [facility] ([facility]) Eos # 0.5 10 0.0-0.5 Normal (applies to non-numeric resul ts) [facility] ([facility]) Baso # 0.1 10 0.0-0.2 Normal (applies to non-numeric resul ts) [facility] ([facility]) ID Date Data Source [id number] 06/20/2019 08:11:00 AM EST [facility] ([facility]) Name Value Range Interpretation Code Description Data Mary rce(s) Supporting Document(s) Glucose, Fasting 105 mg/dL 70-100 Above high normal [facility] ([facility]) Blood Urea Nitrogen 18 mg/dL 7-18 Normal (applies to non-nume paula results) [facility] ([facility]) Glomerular Filtration Rate 41.9 Normal (applies to n on-numeric results) [facility] ([facility]) <content>Units are mL/min/1.73 m2</content>
<content></content>
<content>Chronic Kidney Disease Staging per NKF:</content>
<content></content>
<content>Stage I & II GFR >=60 Normal to Mildly Decreased</content>
<content>Stage III GFR 30- 59 Moderately Decreased</content>
<content>Stage IV GFR 15-29 Severely Decreased</content>
<content>Stage V GFR <15 Very Little GFR Left</content>
<content>ESRD GFR <15 on BUS ASSISTANT</content>
<content></content> Creatinine For GFR 1.31 mg/dL 0.55-1.30 Above high normal [facility] ([facility]) Potassium Serum 3.9 meq/L 3.5-5.1 Normal (applies to non-numeric results) [facility] ([facility]) Chloride Level 110 meq/L 98-107 Above high normal [facility] ([facility]) Sodium Level 144 meq/L 136-145 Normal (applies to non-numeric res ults) [facility] ([facility]) Anion Gap 4 meq/L 8-16 Below low normal [facility] ( [facility]) Carbon Dioxide Level 30 meq/L 21-32 Normal (applies to non-num caren results) [facility] ([facility]) Calcium Level 9.1 mg/dL 8.8-10.2 Normal (applies to non-numeric re sults) [facility] ([facility]) Ast/Sgot 14 U/L 7-37 Normal (applies to non-numeric resul ts) [facility] ([facility]) Alt/SGPT 24 U/L 12-78 Normal (applies to non-numeric resul ts) [facility] ([facility]) Bilirubin,Total 0.4 mg/dL 0.2-1.0 Normal (applies to non-numeric results) [facility] ([facility]) Alkaline Phosphatase 80 U/L 45-117 Normal (applies to non-num caren results) [facility] ([facility]) Albumin 3.6 GM/DL 3.2-5.2 Normal (applies to non-numeric resul ts) [facility] ([facility]) Total Protein 7.1 GM/DL 6.4-8.2 Normal (applies to non-numeric re sults) [facility] ([facility]) Albumin/Globulin Ratio 1.03 1.00-1.93 Normal (applies to non-numeric results) [facility] ([facility]) ID Date Data Source [id number] 06/20/2019 08:11:00 AM EST [facility] ([facility]) Name Value Range Interpretation Code Description Data Mary rce(s) Supporting Document(s) Calcidiol [Mass/volume] in Serum or Plasma 74.1 ng/mL 30.0- 100.0 Normal (applies to non-numeric results) [facility] ([facility]) ID Date Data Source [id number] 06/20/2019 08:11:00 AM EST [facility] ([facility]) Name Value Range Interpretation Code Description Data Mary rce(s) Supporting Document(s) Thyroid Stimulating Hormone 1.450 uIU/ML 0.358-3.740 Norm al (applies to non- numeric results) [facility] ([facility]) Free T4 0.89 ng/dL 0.76-1.46 Normal (applies to non-numeric resul ts) [facility] ([facility]) Procedure Social History Code Duration Value Status Description Data Source(s ) Smoking 07/03/2020 12:00:00 AM EST Patient has never smoked co mpleted Patient has never smoked [facility] ([facility]) Smoking 12/10/2019 12:00:00 AM EDT Patient has never smoked co mpleted Patient has never smoked [facility] ([facility]) Smoking 10/23/2019 12:00:00 AM EDT Never Smoker completed Never S blancheker eCW1 ([facility]) Smoking 10/23/2019 12:00:00 AM EDT Never Smoker completed Never S blancheker eCW1 ([facility]) Vital Signs ID Date Data Source UNK Name Value Range Interpretation Code Description Data Source(s) [place] body weight 100 [lb_av] 100 [lb_av] [facility] T ([facility]) Oxygen saturation in Arterial blood by Pulse oximetry 97 % 97 % [facility] ([facility]) Body temperature 98.3 [degF] 98.3 [degF] [facility] ([facility]) Respiratory rate 14 /min 14 /min [facility] ( [facility]) Heart rate 103 /min 103 /min [facility] ([facility]) Body mass index (BMI) [Ratio] 29.8 kg/m2 29.8 k g/m2 [facility] ([facility]) Body weight 150.38 [lb_av] 150.38 [lb_av] [facility] ([facility]) Body height 59.6 [in_i] 59.6 [in_i] [facility] ([facility]) " Diastolic blood pressure 74 mm[Hg] 74 mm[Hg] [facility] ([facility]) Systolic blood pressure 140 mm[Hg] 140 mm[Hg] [facility] ([facility]) Heart rate 96 /min 96 /min [facility] ([facility]) Body mass index (BMI) [Ratio] 30.3 kg/m2 30.3 k g/m2 [facility] ([facility]) Body weight 153.00 [lb_av] 153.00 [lb_av] [facility] ([facility]) Body height 59.6 [in_i] 59.6 [in_i] [facility] ([facility]) " Diastolic blood pressure 68 mm[Hg] 68 mm[Hg] [facility] ([facility]) Systolic blood pressure 144 mm[Hg] 144 mm[Hg] [facility] ([facility]) [place] body weight 100 [lb_av] 100 [lb_av] [facility] ([facility]) Oxygen saturation in Arterial blood by Pulse oximetry 99 % 99 % [facility] ([facility]) Body temperature 98.3 [degF] 98.3 [degF] [facility] ([facility]) Respiratory rate 18 /min 18 /min [facility] ( [facility]) [place] body weight 100 [lb_av] 100 [lb_av] [facility] ([facility]) Oxygen saturation in Arterial blood by Pulse oximetry 97 % 97 % [facility] ([facility]) Body temperature 98.3 [degF] 98.3 [degF] [facility] ([facility]) Respiratory rate 18 /min 18 /min [facility] ( [facility]) Heart rate 88 /min 88 /min [facility] ([facility]) Body height 59.6 [in_i] 59.6 [in_i] [facility] ([facility]) " Diastolic blood pressure 72 mm[Hg] 72 mm[Hg] [facility] ([facility]) Systolic blood pressure 124 mm[Hg] 124 mm[Hg] [facility] ([facility]) [place] body weight 100 [lb_av] 100 [lb_av] [facility] ([facility]) Oxygen saturation in Arterial blood by Pulse oximetry 96 % 96 % [facility] ([facility]) Body temperature 97.6 [degF] 97.6 [degF] [facility] ([facility]) Respiratory rate 16 /min 16 /min [facility] ( [facility]) Heart rate 89 /min 89 /min [facility] ([facility]) Body mass index (BMI) [Ratio] 29.8 kg/m2 29.8 k g/m2 [facility] ([facility]) Body weight 150.50 [lb_av] 150.50 [lb_av] [facility] ([facility]) Body height 59.6 [in_i] 59.6 [in_i] [facility] ([facility]) 4'11.60" Diastolic blood pressure 80 mm[Hg] 80 mm[Hg] [facility] ([facility]) Systolic blood pressure 128 mm[Hg] 128 mm[Hg] [facility] ([facility]) [place] body weight 100 [lb_av] 100 [lb_av] [facility] ([facility]) Oxygen saturation in Arterial blood by Pulse oximetry 96 % 96 % [facility] ([facility]) Body temperature 98.2 [degF] 98.2 [degF] [facility] ([facility]) Respiratory rate 16 /min 16 /min [facility] ( [facility]) Heart rate 79 /min 79 /min [facility] ([facility]) Body height 59.6 [in_i] 59.6 [in_i] [facility] ([facility]) 4'11.60" Diastolic blood pressure 74 mm[Hg] 74 mm[Hg] [facility] ([facility]) Systolic blood pressure 134 mm[Hg] 134 mm[Hg] [facility] ([facility]) [place] body weight 100 [lb_av] 100 [lb_av] [facility] ([facility]) Oxygen saturation in Arterial blood by Pulse oximetry 98 % 98 % [facility] ([facility]) Body temperature 98.4 [degF] 98.4 [degF] [facility] ([facility]) Respiratory rate 16 /min 16 /min [facility] ( [facility]) Heart rate 77 /min 77 /min [facility] ([facility]) Body mass index (BMI) [Ratio] 28.9 kg/m2 28.9 k g/m2 [facility] ([facility]) Body weight 146.00 [lb_av] 146.00 [lb_av] [facility] ([facility]) Body height 59.6 [in_i] 59.6 [in_i] [facility] ([facility]) 4'11.60" Diastolic blood pressure 70 mm[Hg] 70 mm[Hg] [facility] ([facility]) Systolic blood pressure 125 mm[Hg] 125 mm[Hg] [facility] ([facility]) Oxygen saturation in Arterial blood by Pulse oximetry 97 % 97 % [facility] ([facility]) Body temperature 99.0 [degF] 99.0 [degF] [facility] ([facility]) Respiratory rate 20 /min 20 /min [facility] ( [facility]) Heart rate 90 /min 90 /min [facility] ([facility]) Body height 59.6 [in_i] 59.6 [in_i] [facility] ([facility]) 411.60" Diastolic blood pressure 80 mm[Hg] 80 mm[Hg] [facility] ([facility]) Systolic blood pressure 140 mm[Hg] 140 mm[Hg] [facility]) Body mass index (BMI) [Ratio] 28.9 kg/m2 28.9 k g/m2 [facility] ([facility]) Body weight 146.00 [lb_av] 146.00 [lb_av] [facility] T ([facility]) Body mass index (BMI) [Ratio] 26.4 kg/m2 26.4 k g/m2 [facility] ([facility], [facility]) Body height 61 [in_i] 61 [in_i] [facility] ([facility], [facility]) 5'1" Body weight 140.00 [lb_av] 140.00 [lb_av] [facility] T ([facility], [facility]) Body temperature 98.1 [degF] 98.1 [degF] [facility] ([facility], [facility]) Oxygen saturation in Arterial blood by Pulse oximetry 97 % 97 % [facility] ([facility], [facility]) Respiratory rate 16 /min 16 /min [facility] ( [facility], [facility]) Heart rate 74 /min 74 /min [facility] ([facility], [facility]) Diastolic blood pressure 82 mm[Hg] 82 mm[Hg] [facility] ([facility], [facility]) Systolic blood pressure 144 mm[Hg] 144 mm[Hg] [facility], [facility]) Oxygen saturation in Arterial blood by Pulse oximetry 97 % 97 % [facility] ([facility]) Body temperature 99.1 [degF] 99.1 [degF] [facility] ([facility]) Respiratory rate 18 /min 18 /min [facility] ( [facility]) Heart rate 76 /min 76 /min [facility] ([facility]) Body mass index (BMI) [Ratio] 28.9 kg/m2 28.9 k g/m2 [facility] ([facility]) Body weight 146.00 [lb_av] 146.00 [lb_av] [facility] ([facility]) Body height 59.6 [in_i] 59.6 [in_i] [facility]) 4'11.60" Diastolic blood pressure 80 mm[Hg] 80 mm[Hg] [facility] ([facility]) Systolic blood pressure 132 mm[Hg] 132 mm[Hg] [facility]) Body weight 67.133 kg 67.133 kg [facility] ([facility], ) Body mass index (BMI) [Ratio] 27.1 kg/m2 27.1 k g/m2 [facility] ([facility], ) Body weight 148.00 [lb_av] 148.00 [lb_av] [facility] T ([facility], ) Body height 62 [in_i] 62 [in_i] [facility] 5'2" Diastolic blood pressure 64 mm[Hg] 64 mm[Hg] [facility] ([facility], ) Systolic blood pressure 122 mm[Hg] 122 mm[Hg] M [facility] ([facility], ) Body temperature 97.2 [degF] 97.2 [degF] eCW1 ( [facility]) Body mass index (BMI) [Ratio] 27.88 kg/m2 27.88 kg/m2 eCW1 ([facility]) Body height 61.5 [in_us] 61.5 [in_us] eCW1 ([facility]) Body weight Measured 150 [lb_av] 150 [lb_av] eC W1 ([facility]) Heart rate 80 /min 80 /min eCW[facility] Oxygen saturation in Arterial blood by Pulse oximetry 99 % 99 % [facility] ([facility]) Body temperature 98.6 [degF] 98.6 [degF] [facility] ([facility]) Respiratory rate 20 /min 20 /min [facility] ( [facility]) Heart rate 76 /min 76 /min [facility] ([facility]) Body mass index (BMI) [Ratio] 28.0 kg/m2 28.0 k g/m2 [facility] ([facility]) Body weight 141.38 [lb_av] 141.38 [lb_av] [facility] T ([facility]) Body height 59.6 [in_i] 59.6 [in_i] [facility] ([facility]) 4'11.60" Diastolic blood pressure 82 mm[Hg] 82 mm[Hg] [facility] ([facility]) Systolic blood pressure 136 mm[Hg] 136 mm[Hg] M [facility] ([facility]) Diastolic blood pressure 72 mm[Hg] 72 mm[Hg] eCW1 ([facility]) Systolic blood pressure 122 mm[Hg] 122 mm[Hg] e CW1 ([facility]) Body mass index (BMI) [Ratio] 26.43 kg/m2 26.43 kg/m2 eCW1 ([facility]) Body height 61.5 [in_us] 61.5 [in_us] eCW1 ([facility]) Body weight Measured 142.2 [lb_av] 142.2 [lb_av ] eCW1 ([facility]) Oxygen saturation in Arterial blood by Pulse oximetry 99 % 99 % [facility] ([facility]) Body temperature 97.7 [degF] 97.7 [degF] [facility] ([facility]) Respiratory rate 18 /min 18 /min [facility] ( [facility]) Heart rate 80 /min 80 /min [facility] ([facility]) Body mass index (BMI) [Ratio] 27.4 kg/m2 27.4 k g/m2 [facility] ([facility]) Body weight 138.50 [lb_av] 138.50 [lb_av] [facility] T ([facility]) Body height 59.6 [in_i] 59.6 [in_i] [facility] ([facility]) 4'11.60" Diastolic blood pressure 78 mm[Hg] 78 mm[Hg] [facility] ([facility]) Systolic blood pressure 130 mm[Hg] 130 mm[Hg] M [facility] ([facility]) Diastolic blood pressure 76 mm[Hg] 76 mm[Hg] eCW1 ([facility]) Systolic blood pressure 124 mm[Hg] 124 mm[Hg] e CW1 ([facility]) Body mass index (BMI) [Ratio] 25.84 kg/m2 25.84 kg/m2 eCW1 ([facility]) Body height 61.5 [in_us] 61.5 [in_us] eCW1 ([facility]) Body weight Measured 139 [lb_av] 139 [lb_av] eC W1 ([facility]) Oxygen saturation in Arterial blood by Pulse oximetry 99 % 99 % [facility] ([facility]) Body temperature 98.0 [degF] 98.0 [degF] [facility] ([facility]) Respiratory rate 20 /min 20 /min [facility] ( [facility]) Heart rate 95 /min 95 /min [facility] ([facility]) Body mass index (BMI) [Ratio] 29.0 kg/m2 29.0 k g/m2 [facility] ([facility]) Body weight 146.38 [lb_av] 146.38 [lb_av] [facility] T ([facility]) Body height 59.6 [in_i] 59.6 [in_i] [facility] ([facility]) 4'11.60" Diastolic blood pressure 68 mm[Hg] 68 mm[Hg] [facility] ([facility]) Systolic blood pressure 128 mm[Hg] 128 mm[Hg] M EDENT ([facility]) Diastolic blood pressure 71 mm[Hg] 71 mm[Hg] eCW1 ([facility]) Systolic blood pressure 131 mm[Hg] 131 mm[Hg] e CW1 ([facility]) Body temperature 99.6 [degF] 99.6 [degF] eCW1 ( [facility]) Respiratory rate 18 /min 18 /min eCW1 ([facility]) Heart rate 99 /min 99 /min eCW1 (Count includes the [facility]) Body mass index (BMI) [Ratio] 27.51 kg/m2 27.51 kg/m2 [facility] ([facility]) Body height 61.5 [in_us] 61.5 [in_us] eCW1 ([facility]) Body weight Measured 148.0 [lb_av] 148.0 [lb_av ] eCW1 ([facility]) Diastolic blood pressure 66 mm[Hg] 66 mm[Hg] eCW1 ([facility]) Systolic blood pressure 135 mm[Hg] 135 mm[Hg] e CW1 ([facility]) Body temperature 97.2 [degF] 97.2 [degF] eCW1 ( [facility]) Respiratory rate 18 /min 18 /min eCW1 ([facility]) Heart rate 100 /min 100 /min eCW1 (Count includes the [facility]) Body mass index (BMI) [Ratio] 26.77 kg/m2 26.77 kg/m2 eCW1 ([facility]) Body height 61.5 [in_us] 61.5 [in_us] eCW1 ([facility]) Body weight Measured 144.0 [lb_av] 144.0 [lb_av ] eCW1 ([facility]) Patient Treatment Plan of Care Planned Activity Planned Date Details Description Data Source (s) Clindamycin 300 MG Oral Capsule 08/14/2019 12:00:00 AM EDT eCW1 ([facility]) Clindamycin HCl 300 MG 06/09/2019 12:00:00 AM EST eCW1 ([facility]) Fluticasone Propionate 0.005 % 06/08/2019 12:00:00 AM EST eCW1 ([facility]) Doxycycline Hyclate 100 MG 06/08/2019 12:00:00 AM EST eCW1 ([facility])
[2020-07-11 06:56] VITALS: BP 168/76
--- NOTE | 2020-07-11 07:39 | REPVR ---
PROCEDURE INFORMATION: Exam: CT Head Without Contrast Exam date and time: 07/11/2020 7:06 AM Age: 79 years old Clinical indication: Injury or trauma; Fall; Blunt trauma (contusions or hematomas); Additional info: Right temporal trauma TECHNIQUE: Imaging protocol: Computed tomography of the head without contrast. Radiation optimization: All CT scans at this facility use at least one of these dose optimization techniques: automated exposure control; mA and/or kV adjustment per patient size (includes targeted exams where dose is matched to clinical indication); or iterative reconstruction. COMPARISON: CT Head without contrast 01/04/2020 2:56 PM FINDINGS: Brain: The brain demonstrates diffuse volume loss. There is white matter hypodensity most consistent with chronic small vessel ischemic change. There are small foci of low attenuation in the basal ganglia bilaterally related to chronic lacunar infarctions. Cerebral ventricles: The ventricles and CSF spaces are proportionately enlarged. Bones/joints: No acute fracture. Paranasal sinuses: Visualized sinuses are unremarkable. No fluid levels. Mastoid air cells: Visualized mastoid air cells are well aerated. Orbital cavity: There are postoperative changes from prior cataract surgery. 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 Soft tissues: There is a small right frontotemporal soft tissue contusion. IMPRESSION: 1. Right frontal soft tissue contusion. 2. There is no sequela of acute intracranial trauma Electronically signed by: Joe Trivedi On 07/11/2020 07:39:27 AM
[2020-07-11] MEDS ORDERED: BACITRACIN OINTMENT 30GM TUBE TOP ONE (08:15)
--- OUTSIDE RECORDS SUMMARY | 2020-07-11 08:15 | CCD ---
Author Author [facility] Organization [facility] Address Unknown Phone Unavailable Care Team Providers Care Weight Caller Name Role Phone Andrea NICHOLSON DPM Unavailable Unavailable Andrea NICHOLSON DPM Unavailable Unavailable Andrea NICHOLSON DPM Unavailable Unavailable Andrea NICHOLSON DPM Unavailable Unavailable Andrea NICHOLSON DPM Unavailable Unavailable Andrea NICHOLSON DPM Unavailable Unavailable Andrea NICHOLSON DPM Unavailable Unavailable Andrea NICHOLSONW DPM Unavailable Unavailable Andrea NICHOLSONW DPM Unavailable Unavailable Andrea NICHOLSON DPM Unavailable Unavailable Andrea NICHOLSON DPM Unavailable Unavailable Andrea NICHOLSON DPM Unavailable Unavailable Andrea NICHOLSON DPM Unavailable Unavailable Andrea NICHOLSONW DPM Unavailable Unavailable Andrea NICHOLSON DPM Unavailable Unavailable Andrea NICHOLSONW DPM Unavailable Unavailable Andrea NICHOLSON DPM Unavailable Unavailable Andrea NICHOLSONW DPM Unavailable Unavailable Andrea NICHOLSON DPM Unavailable [...] Unavailable Unavailable BYRON, BARBER MD Unavailable Unavailable RaviKirk niño PA Unavailable Unavailable Ravi, Kirk PA Unavailable [...] Unavailable Ravi, Kirk PA Unavailable Unavailable Ravi, Ikrk PA Unavailable Unavailable Ravi, Kirk PA Unavailable [...] MANUEL-LAKEISHA, TEMITOPE DO Unavailable Unavailable JUAN MANUEL-LAKEISHA, TMEITOPE DO Unavailable Unavailable JUAN MANUEL-LAKEISHA, TEMITOPE DO [...] Unavailable Unavailable Ravi, Kirk PA Unavailable Unavailable DESJARLAIS, RICKEY PRESCHOOL PROGRAM DIRECTOR Unavailable Unavailable DESJARLAIS, RICKEY PRESCHOOL PROGRAM DIRECTOR Unavailable Unavailable DESJARLAIS, RICKEY PRESCHOOL PROGRAM DIRECTOR Unavailable Unavailable DESJARLAIS, RICKEY PRESCHOOL PROGRAM DIRECTOR Unavailable Unavailable DESJARLAIS, RICKEY PRESCHOOL PROGRAM DIRECTOR Unavailable Unavailable DESJARLAIS, RICKEY PRESCHOOL PROGRAM DIRECTOR Unavailable Unavailable DESJARLAIS, RICKEY PRESCHOOL PROGRAM DIRECTOR Unavailable Unavailable DESJARLAIS, RICKEY PRESCHOOL PROGRAM DIRECTOR Unavailable Unavailable DESJARLAIS, RICKEY PRESCHOOL PROGRAM DIRECTOR Unavailable Unavailable O'madelin, A Zachary PA [...] is protected by Article 27-F of the [facility] Public Health law. If you continue you may have access to information: Regarding HIV / AIDS; Provided by facilities licensed or operated by the [facility] Office of Mental Health; or Provided by the [facility] Office for People With Developmental Disabilities. If such information is present, then the following [facility] mandated warning applies: This information has [...] law may result in a fine or intermediate sentence or both. A general authorization for the release of medical or other information is NOT sufficient authorization for further disc losure. Allergies and Adverse Reactions Type Description Substance Reaction Status Data Source(s ) Bee stings Bee stings Bee stings Unknown Active eCW1 ([facility]) Drug allergy Sulfa Sulfa Unknown Active eCW1 ([facility]) Bee sting Bee sting Bee sting swelling around site Active eCW 1 ([facility]) Doxycycline Hyclate Doxycycline Hyclate doxycycline hyclate 100 MG Oral Tablet Rash Active eCW1 ([facility]) Bee sting Bee sting Bee sting swelling around site Active eCW 1 ([facility]) Bee sting Bee sting Bee sting swelling around site Active eCW 1 ([facility]) Bee sting Bee sting Bee sting swelling around site Active eCW 1 ([facility]) Family History Family Member Name Family Member Gender Family Member Status Date o f Status Description Data Source(s) Unknown Male Problem MEDENT ([facility]) Unknown Male Problem MEDENT ([facility] Unknown Unknown Problem MEDENT ([facility]) Unknown Male Problem MEDENT ([facility]) () Encounters Encounter Providers Location Date Indications Data Source(s ) Outpatient Attender: Kirk CHAVIRA Family Medicine [facility] 07/03/2020 08:20:00 AM EST MEDENT (Family Medicine [facility]) Outpatient Attender: RICKEY VARELA NP 06/28/2020 10: 23:00 AM [facility] [address] [place] [address] 06/28/2020 12:00:00 AM EST eCW1 ([facility]) Outpatient Attender: BARBER MATTHEWS MD Main office - [facility] 06/18/2020 01:30:00 PM EST MEDENT ([facility] EMMA gutierrez) (TEL) .[facility] 06/11/2020 12:00:00 AM EST eCW1 ([facility]) Outpatient Attender: DEVON ISAAC PA-C 06/10/2020 10:34:00 AM [facility] Outpatient Attender: RICKEY VARELA NP 05/31/2020 08: 35:00 AM [facility] Outpatient Attender: Kirk CHAVIRA [facility] 05/14/2020 07:40:00 AM EST MEDENT ([facility]) Outpatient Attender: RICKEY VARELA NP 05/10/2020 08: 31:00 AM [facility] Outpatient Attender: Kirk CHAVIRA [facility] 05/07/2020 02:20:00 PM EST MEDENT ([facility]) Outpatient Attender: RICKEY VARELA NP 04/12/2020 11: 11:00 AM [facility] Outpatient Attender: ALEX NICHOLSON [facility] Office 03/24 10:00:00 AM EST MEDENT ([facility] Outpatient Attender: TEMITOPE DOLAN DO Family Medicine [facility] 04/02/2020 07:20:00 AM EST MEDENT ([facility]) Outpatient Attender: RICKEY VARELA NP 03/22/2020 10: 34:00 AM [facility] (TEL) .[facility] 02/23/2020 12:00:00 AM EDT eCW1 ([facility]) Outpatient Attender: RICKEY VARELA NP 02/16/2020 10: 40:00 AM [facility] Outpatient Attender: RICKEY VARELA NP 02/02/2020 10: 40:00 AM [facility] Outpatient Attender: RICKEY VARELA NP 01/26/2020 10: 06:00 AM [facility] Outpatient Attender: RICKEY VARELA NP 01/16/2020 05: 00:00 PM [facility] Outpatient Attender: Zachary CHAVIRA Family Medicine [facility] 01/15/2020 03:40:00 PM EDT MEDENT ([facility]) Outpatient Attender: ALEX NICHOLSON [facility] 12/22 01:45:00 PM EDT MEDENT ([facility] Outpatient Attender: RICKEY VARELA NP 01/04/2020 09: 01:00 AM [facility] Outpatient Attender: Kirk CHAVIRA [facility] 12/27/2019 08:00:00 AM EDT MEDENT ([facility]) Outpatient Attender: RICKEY VARELA NP 12/20/2019 12: 03:00 PM [facility] Outpatient Attender: DEVON ISAAC PA-C 12/19/2019 11:47:00 AM [facility] Outpatient Attender: Kirk CHAVIRA [facility] 12/15/2019 02:00:00 PM EDT MEDENT ([facility]) Outpatient Attender: MINDY Newell 12/10/2019 10:30:00 AM EDT MEDENT ([facility] Outpatient Attender: RICKEY VARELA NP 12/07/2019 10: 47:00 AM [facility] Outpatient Attender: TEMITOPE DOLAN DO Family Medicine [facility] 12/05/2019 09:20:00 AM EDT MEDENT ([facility] Medicine [facility]) Outpatient Attender: RICKEY VARELA NP 11/29/2019 10: 40:00 AM [facility] Outpatient Attender: RICKEY VARELA NP 11/14/2019 11: 34:00 AM [facility] Outpatient Attender: RICKEY VARELA PRESCHOOL PROGRAM DIRECTOR 11/07/2019 10: 40:00 AM [facility] Outpatient Attender: ALEX NICHOLSON [facility] 12/2019 01:45:00 PM EDT MEDENT ([facility] Outpatient Attender: RICKEY VARELA NP 10/25/2019 10: 25:00 AM [facility] .[facility] .[facility] 10/23/2019 12:00:00 AM EDT eCW1 ([facility]) Outpatient Attender: RICKEY VARELA NP 09/26/2019 04: 20:00 PM [facility] Outpatient Attender: Kirk CHAVIRA [facility] 09/20/2019 10:40:00 AM EDT MEDENT ([facility]) Outpatient Attender: RICKEY VARELA NP 09/19/2019 04: 58:00 PM [facility] [address] [place] [address] 09/08/2019 12:00:00 AM EDT eCW1 ([facility]) Outpatient Attender: RICKEY VARELA NP 08/23/2019 09: 27:00 AM [facility] [address] [place] [address] 08/16/2019 12:00:00 AM EDT eCW1 ([facility]) [facility] Derm[facility] [address] [place] [address] 08/15/2019 12:00:00 AM EDT eCW1 ([facility]) Outpatient Referrer: Kirk CHAVIRA 08/14/2019 12:21:00 PM EDT [facility] Dermatology [address] [place] [address] 08/14/2019 12:00:00 AM EDT eCW1 ([facility]) Outpatient Attender: Kirk CHAVIRA [facility] 08/07/2019 09:20:00 AM EDT MEDENT (Family [facility]) Outpatient Attender: RICKEY VARELA NP 07/04/2019 08: 40:00 AM [facility] [address] [place] [address] 06/27/2019 12:00:00 AM EST eCW1 ([facility]) [facility] [address] [place] [address] 06/27/2019 12:00:00 AM EST eCW1 ([facility]) [facility] Dermatology [address] [place] [address] 06/27/2019 12:00:00 AM EST eCW1 ([facility]) [facility] Dermatology [address] [place] [address] 06/20/2019 12:00:00 AM EST eCW1 ([facility]) [facility] [place] [address] [facility] [address] 06/19/2019 12:00:00 AM EST eCW1 ([facility]) Outpatient Attender: TEMITOPE DOLAN DO Family Medicine [facility] 06/16/2019 12:20:00 PM EST MEDENT ([facility]) [facility] Dermatology [address] [place] [address] 06/15/2019 12:00:00 AM EST eCW1 ([facility]) [facility] Dermatology [address] [place] [address] 06/09/2019 12:00:00 AM EST eCW1 ([facility]) [facility] Dermatology [address] [place] [address] 06/08/2019 12:00:00 AM EST eCW1 ([facility]) [facility] [address] [place] [address] 06/06/2019 12:00:00 AM EST eCW1 ([facility]) Outpatient Attender: ALEX NICHOLSON [facility] Office 05/24 12:30:00 PM EST MEDENT ([facility] Outpatient Attender: RICKEY VARELA NP 05/02/2019 08: 40:00 AM [facility] Outpatient Attender: RICKEY VARELA NP 03/28/2019 11: 21:00 AM [facility] Outpatient Attender: RICKEY VARELA PRESCHOOL PROGRAM DIRECTOR 02/21/2019 08: 09:00 AM [facility] Immunizations Vaccine Date Status Description Data Source(s) [...] 07/03/2020 12:00:00 AM EST ORAL active MEDENT ([facility]) Ergocalciferol 64134 UNT Oral Capsule Ergocalciferol 05/14/2020 12:00:00 AM EST active MEDENT ( [facility]) Shingrix Shingrix 02/26/2020 12:00:00 AM EDT SUBCUTANEOUS active MEDENT ([facility]) 100 mg 01/26/2020 12:00:00 AM EDT tablet 30 TAKE ONE TABLET BY MOUTH EVERY MORNING MAXIMUM DAILY DOSE = 1 TABLET TAKE ONE TABLET BY MOUTH EVERY MORNING MAXIMUM DAILY DOSE = 1 TABLET SOLD: 01/27/2020 [facility] Tdap Vaccine 01/15/2020 12:00:00 AM EDT compl eted MEDENT ([facility]) diphtheria toxoid vaccine, inactivated 4 UNT/ML / tetanus toxoid vaccine, inactivated 4 UNT/ML Injectable Suspension Tetanus/Diphtheria Toxoids-Adsorbed Adult 01/15/2020 12:00:00 AM EDT completed MEDENT ([facility]) 5 mg/gram (0.5 %) 01/09/2020 12:00:00 AM [...] 05/2019 12:00:00 AM EDT active MEDENT ( [facility], ) sennosides, JAIL 8.6 MG Oral Tablet Senna 11/22/2019 12:00:00 AM EDT ORAL active MEDENT ([facility], ) 100 mg 11/22/2019 12:00:00 [...] 12:00:00 AM EDT active 2 capsules eCW1 ([facility]) Physical Therapy 07/31/2019 12:00:00 AM EDT a ctive MEDENT ([facility] Medicine [facility]) 0.005 % 06/19/2019 12:00:00 AM EST [...] 12:00:00 AM EST suspended 2 capsules eCW1 ([facility]) Clindamycin 300 MG Oral Capsule Clindamycin HCl 300 MG Clind amycin HCl 300 MG 06/09/2019 12:00:00 AM EST suspended 2 capsules eCW1 ([facility]) Clindamycin HCl 300 MG UNK 06/09/2019 12:00:00 AM EST active 2 capsules eCW1 ([facility]) Clindamycin 300 MG Oral Capsule Clindamycin HCl 300 MG Clind amycin HCl 300 MG 06/09/2019 12:00:00 AM EST active 2 capsules eCW1 ([facility]) 300 mg 06/09/2019 12:00:00 AM EST capsule 60 TAKE TWO CAPSULES BY MOUTH EVERY 8 HOURS FOR 10 DAYS TAKE TWO CAPSULES BY MOUTH EVERY 8 HOURS FOR 10 DAYS SOLD: 06/09/2019 [facility] doxycycline hyclate 100 MG Oral Tablet Doxycycline Hyc late 100 MG Doxycycline Hyclate 100 MG 06/08/2019 12:00:00 AM EST active 1 tablet eCW1 ([facility]) Fluticasone propionate 0.38206 MG/MG Top ical Ointment Fluticasone Propionate 0.005 % Fluticasone Propionate 0.005 % 06/08/2019 12:00:00 AM EST active 1 application eCW1 ([facility]) Fluticasone propionate 0.00311 MG/MG Top ical Ointment Fluticasone Propionate 0.005 % Fluticasone Propionate 0.005 % 06/08/2019 12:00:00 AM EST active 1 application eCW1 ([facility]) 0.005 % 06/08/2019 12:00:00 AM EST ointment 15 APPLY EXTERNALLY TWO TIMES A DAY FOR 14 DAYS APPLY EXTERNALLY TWO TIMES A DAY FOR 14 DAYS SOLD: 06/08/2019 [facility] Fluticasone propionate 0.55228 MG/MG Top ical Ointment Fluticasone Propionate 0.005 % Fluticasone Propionate 0.005 % 06/08/2019 12:00:00 AM EST active 1 application eCW1 ([facility]) Fluticasone Propionate 0.005 % UNK 06/08/2019 12:00:00 AM EST active 1 application eCW1 ([facility]) doxycycline hyclate 100 MG Oral Tablet Doxycycline Hyc late 100 MG Doxycycline Hyclate 100 MG 06/08/2019 12:00:00 AM EST suspende d 1 tablet eCW1 ([facility]) Doxycycline Hyclate 100 MG UNK 06/08/2019 12:00:00 AM EST active 1 tablet eCW1 ([facility]) 100 mg 06/08/2019 12:00:00 AM EST tablet 20 TAKE 1 TABLET BY MOUTH TWO TIMES A DAY FOR 10 DAYS TAKE 1 TABLET BY MOUTH TWO TIMES A DAY FOR 10 DAYS JOSE RAMON [facility] doxycycline hyclate 100 MG Oral Tablet Doxycycline Hyc late 100 MG Doxycycline Hyclate 100 MG 06/08/2019 12:00:00 AM EST suspende d 1 tablet eCW1 ([facility]) ammonium lactate 120 MG/ML Topical Cream Ammonium Lactate 06/05/2019 12:00:00 AM EST active MEDENT ([facility] 12 % 06/05/2019 12:00:00 AM EST cream 140 APPLY TO FEET DAILY APPLY TO FEET DAILY SOLD: 06/05/2019 [facility] Insurance Providers Payer name Policy type / Coverage type Policy ID Covered democrat ID Covered democrat's relationship to perez Policy Perez Plan Information MEDICARE [id number] SP [id number] [facility] [id number] SP [id number] [place] MEDICARE DIVISION [id number] S [id number] [facility] [id number] S [id number] [place] [id number] S [id number] [place] MED[place]ARE [place] [id number] S [id number] [place] [id number] S [id number] [facility] [id number] S [id number] [place] MEDICARE DIVISION [id number] S [id number] [place] MEDICARE DIVISION [id number] S [id number] [place] MEDICARE DIVISION UNAVAILABLE S UNAVAILABLE MEDICARE [id number] SP [id number] [facility] [id number] SP [id number] MEDICARE C [id number] S [id number] M10 [facility] [id number] S [id number] MEDICARE A [id number] Self [id number] UMR U [id number] Self [id number] [place] MED[place]ARE DIVISION [id number] S [id number] [place] [id number] S [id number] UMR [id number] S [id number] Medicare Medicare Primary [id number] Self [id number] Umr Commercial [id number] Self [id number] [place] [id number] Self [id number] Umr [facility] Part B [id number] Self [id number] UMR [id number] S [id number] Medicare Medicare Primary [id number] Self [id number] [place] Primary [id number] Self [id number] Medicare Medicare Primary [id number] Self [id number] Medicare Medicare Primary [id number] Self [id number] [place] Primary [id number] Self [id number] ANSI-Medicare Part B [id number] ANSI-Commercial [id number] [facility] [id number] SP [id number] MEDICARE [id number] SP [id number] ANSI-Medicare Part B [id number] ANSI-Commercial [id number] [place] MEDICARE DIVISION [id number] S [id number] [place] [id number] S [id number] [place] MEDICARE DIVISION [id number] S [id number] [place]ICARE [place] [id number] S [id number] [facility] [id number] S [id number] ANSI-Medicare Part B [id number] ANSI-Commercial [id number] ANSI-Commercial [id number] ANSI-Medicare Part B [id number] ANSI-Medicare Part B [id number] ANSI-Commercial [id number] ANSI-Medicare Part B [id number] ANSI-Commercial [id number] Medicare Medicare Primary [id number] Self [id number] MEDICARE A [id number] Self [id number] A [facility] U [id number] Self [id number] ANSI-Commercial [id number] ANS-Medicare Part B [id number] Medicare Medicare Primary [id number] Self [id number] ANSI-Commercial [id number] ANS-Medicare Part B [id number] MEDICARE [id number] SP [id number] A [facility] [id number] SP [id number] r/[facility] Medigap Part B [id number] Self [id number] Medicare Natl Gov't Servi Medicare Primary [id number] Self [id number] MEDICARE [id number] SP [id number] A MEDICARE C [id number] S [id number] A MEDICARE [id number] SP [id number] A [facility] [id number] SP [id number] [facility] U [id number] Self [id number] [facility] PPO O [id number] S [id number] [facility] Medigap Part B [id number] Self [id number] Medicare [place] Gov't Servi Medicare Primary [id number] Self [id number] [facility] Medigap Part B [id number] Self [id number] [place] Primary [id number] Self [id number] [facility] Medigap Part B [id number] Self [id number] Medicare [place] Gov't Serv[place] Medicare Primary [id number] Self [id number] [facility] [id number] SP [id number] MEDICARE [id number] SP [id number] A [facility] [id number] SP [id number] [facility] U [id number] Self [id number] [facility] Commercial Self Medicare [facility] Medicare Primary Self [facility] [id number] 18 [id number] [facility] [id number] [facility] [id number] 18 [id number] MEDICARE PART A-CLINIC [id number] A [id number] Problems, Conditions, and Diagnoses Code Display Name Description Problem Type Effective Dates Data Source(s) 54001446 Essential hypertension Essential hypertension Problem 11/22/2019 12:00:00 AM EDT [facility] N95.9 452503108 Menopausal disorder Problem 06/27/2019 12:00 :00 AM EST eCW1 ([facility]) C44.310 [id number] Basal cell carcinoma, face Problem 0 12:00:00 AM EST eC ([facility]) 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 [id number] 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 Problem 06/07/2019 12:00:00 AM EST [facility] ([facility]) R25.1 Tremor, unspecified TREMOR, UNSPECIFIED Diagnosis 0 06/28/2020 10:23:00 AM [facility] F31.9 Bipolar disorder, unspecified BIPOLAR DISORDER, UNSPEC IFIED Diagnosis 06/28/2020 10:23:00 AM [facility] F31.32 Bipolar disorder, current episode depres sed, moderate BIPOLAR DISORDER, CURRENT EPISODE DEPRESSED, MODERATE Diagnosis 06/10/2020 10:34:00 AM [facility] G25.2 Other specified forms of tremor OTHER SPECIFIED FORMS OF TREMOR Diagnosis 05/31/2020 08:35:00 AM [facility] F31.31 Bipolar disorder, current episode depres sed, mild BIPOLAR DISORDER, CURRENT EPISODE DEPRESSED, MILD Diagnosis 09/19/2019 04:58:00 PM [facility] Surgeries/Procedures Procedure Description Date Indications Data Source(s) NON-INVASIVE PHYSIOLOGIC STUDY EXTREMITY 3 LEVLS 07/05 12:00:00 AM EST MEDENT ([facility], ) TSTG ANS FUNCJ CARDIOVAGAL INNERVAJ PARASYMP 12:00:00 AM EST MEDENT ([facility] ) TESTING AUTONOMIC NERVOUS SYSTEM FUNCTION 07/05/2020 1 2:00:00 AM EST MEDENT ([facility] ) ELECTROENCEPHALOGRAM W/REC AWAKE&ASLEEP 07/04/2020 12: 00:00 AM EST MEDENT ([facility] ) ELECTROENCEPHALOGRAM W/REC AWAKE&ASLEEP 07/04/2020 12: 00:00 AM EST MEDENT ([facility], ) Needle electromyography, each extremity, with related paraspinal areas, when performed, done with nerve conduction, amplitude and latency/velocity study; complete, five or more muscles studied, innervated by three or more nerves or four or more spinal levels (list separately in addition to the code for primary procedure). 06/24/2020 12:00:00 AM EST MEDEN T ([facility], ) Needle electromyography, each extremity, with related paraspinal areas, when performed, done with nerve conduction, amplitude and latency/velocity study; complete, five or more muscles studied, innervated by three or more nerves or four or more spinal levels (list separately in addition to the code for primary procedure). 06/24/2020 12:00:00 AM EST MEDEN T ([facility], ) Nerve Conduction 11-12 Studies 06/24/2020 12:00:00 AM EST MEDENT ([facility] ) PARING/CUTTING BENIGN HYPERKERATOTIC LESION 2-4 2020 12:00:00 AM EST MED[facility] ([facility] DEBRIDEMENT NAIL ANY METHOD 6/> 06/19/2020 12:00:00 AM EST MED[facility] ([facility] COLLECTION VENOUS BLOOD VENIPUNCTURE 10/23/2019 12:00: 00 AM EDT eCW1 ([facility]) 25 HYDROXY INCLUDES FRACTIONS IF PERFORMED 10/23/2019 12:00:00 AM EDT eCW1 ([facility]) PROTEIN TOTAL XCPT REFRACTOMETRY URINE 10/23/2019 12:0 0:00 AM EDT eCW1 ([facility]) COMPREHENSIVE METABOLIC PANEL 10/23/2019 12:00:00 AM E DT eCW1 ([facility]) Office Visit, Est Pt., Level 2 FC 06/27/2019 12:00:00 AM EST eCW1 ([facility]) Office Visit, Est Pt., Level 3 PC 06/27/2019 12:00:00 AM EST eCW1 ([facility]) TANGNTL BX SKIN SINGLE LES 06/15/2019 12:00:00 AM EST eCW1 ([facility]) TANGNTL BX SKIN EA SEP/ADDL 06/15/2019 12:00:00 AM EST eCW1 ([facility]) EXC TR-EXT MAL+GRACIELA 1.1-2 CM 06/08/2019 12:00:00 AM ES T eCW1 ([facility]) INTMD RPR S/A/T/EXT 2.6-7.5 06/08/2019 12:00:00 AM EST eCW1 ([facility]) Results ID Date Data Source [id number] 06/28/2020 10:43:00 AM EST [facility] ([facility]) Name Value Range Interpretation Code Description Data Mary rce(s) Supporting Document(s) Cobalamin (Vitamin B12) [Mass/volume] in Serum or Plasma 575 pg/ mL 247-911 Normal (applies to non-numeric results) [facility] ([facility]) VITAMIN B12 NORMAL RANGE NORMAL 247 - 911 PG/ML INDETERMINATE 211 - 246 PG/ML DEFICIENT LESS THAN 211 PG/ML Ferritin [Mass/volume] in Serum or Plasma 96 ng/mL 8-252 Normal (applies to non- numeric results) [facility] ([facility]) Calcidiol [Mass/volume] in Serum or Plasma 49.4 ng/mL 30.0- 100.0 Normal (applies to non-numeric results) [facility] ([facility]) ID Date Data Source [id number] 06/28/2020 10:43:00 AM EST [facility] ([facility]) Name Value Range Interpretation Code Description Data Mary rce(s) Supporting Document(s) Iron (Fe) 101 ug/dL 50-170 Normal (applies to non-numeric resul ts) [facility] ([facility]) Percent Saturation 30.4 % 13.2-45.0 Normal (applies to non-numer ic results) [facility] ([facility]) Total Iron Binding Capacity 332 ug/dL 250-450 Norm al (applies to non-numeric results) [facility] ([facility]) ID Date Data Source [id number] 06/28/2020 10:43:00 AM EST [facility] ([facility]) Name Value Range Interpretation Code Description Data Mary rce(s) Supporting Document(s) Thyroid Stimulating Hormone 0.831 uIU/ML 0.358-3.740 Norm al (applies to non- numeric results) [facility] ([facility]) Free T4 0.93 ng/dL 0.76-1.46 Normal (applies to non-numeric resul ts) [facility] ([facility]) ID Date Data Source [id number] 06/28/2020 10:43:00 AM EST [facility] ([facility]) Name Value Range Interpretation Code Description Data Mary rce(s) Supporting Document(s) White Blood Count 8.5 10 4.0-10.0 Normal (applies to non-numeri c results) [facility] ([facility]) Hemoglobin 11.0 g/dL 12.0-15.5 Below low normal [facility] ( [facility]) Red Blood Count 3.62 10 4.00-5.40 Below low normal [facility] ([facility]) Mean Corpuscular Volume 100.3 fl 80.0-96.0 Above high normal [facility] ([facility]) Hematocrit 36.3 % 36.0-47.0 Normal (applies to non-numeric resul ts) [facility] ([facility]) Mean Corpuscular Hemoglobin 30.4 pg 27.0-33.0 Norm al (applies to non-numeric results) [facility] ([facility]) Mean Corpuscular HGB Conc 30.3 g/dL 32.0-36.5 Below low normal [facility] ([facility]) Red Cell Distribution Width 12.7 % 11.5-14.5 Norm al (applies to non-numeric results) [facility] ([facility]) Lymph % 28.9 % 24.0-44.0 Normal (applies to non-numeric resul ts) [facility] ([facility]) Platelet Count, Automated 407 10 150-450 Normal (applies to non-numeric results) [facility] ([facility]) Neutrophils % 56.4 % 36.0-66.0 Normal (applies to non-numeric re sults) [facility] ([facility]) Baso % 0.8 % 0.0-1.0 Normal (applies to non-numeric resul ts) [facility] ([facility]) Harlan % 9.4 % 0.0-5.0 Above high normal [facility] ([facility]) Eos % 4.3 % 0.0-3.0 Above high normal [facility] ([facility]) Immature Granulocyte % 0.2 % 0-3.0 Normal (applies to non-n umeric results) [facility] ([facility]) Nucleated Red Blood Cell % 0.0 % 0-0 Normal (applies to n on-numeric results) [facility] ([facility]) Harlan # 0.8 10 0.0-0.8 Normal (applies to non-numeric resul ts) [facility] ([facility]) Lymph # 2.5 10 1.5-5.0 Normal (applies to non-numeric resul ts) [facility] ([facility]) Neutrophils # 4.8 10 1.5-8.5 Normal (applies to non-numeric re sults) [facility] ([facility]) Eos # 0.4 10 0.0-0.5 Normal (applies to non-numeric resul ts) [facility] ([facility]) Baso # 0.1 10 0.0-0.2 Normal (applies to non-numeric resul ts) [facility] ([facility]) ID Date Data Source [id number] 06/28/2020 10:43:00 AM EST [facility] ([facility]) Name Value Range Interpretation Code Description Data Mary rce(s) Supporting Document(s) Glucose, Fasting 97 mg/dL 70-100 Normal (applies to non-numeric results) [facility] ([facility]) Blood Urea Nitrogen 19 mg/dL 7-18 Above high normal [facility] ([facility]) Glomerular Filtration Rate 44.1 Normal (applies to n on-numeric results) [facility] ([facility]) <content>Units are mL/min/1.73 m2</content>
<content></content>
<content>Chronic Kidney Disease Staging per NKF:</content>
<content></content>
<content>Stage I & II GFR >=60 Normal to Mildly Decreased</content>
<content>Stage III GFR 30- 59 Moderately Decreased</content>
<content>Stage IV GFR 15-29 Severely Decreased</content>
<content>Stage V GFR <15 Very Little GFR Left</content>
<content>ESRD GFR <15 on SPEECH LANGUAGE PATHOLOGIST ASSISTANT</content>
<content></content> Creatinine For GFR 1.25 mg/dL 0.55-1.30 Normal (applies to non -numeric results) [facility] ([facility]) Sodium Level 141 meq/L 136-145 Normal (applies to non-numeric res ults) [facility] ([facility]) Potassium Serum 3.8 meq/L 3.5-5.1 Normal (applies to non-numeric results) [facility] ([facility]) Anion Gap 5 meq/L 8-16 Below low normal [facility] Chloride Level 106 meq/L 98-107 Normal (applies to non-numeric r esults) [facility] ([facility]) Carbon Dioxide Level 30 meq/L 21-32 Normal (applies to non-num caren results) [facility] ([facility]) Calcium Level 9.6 mg/dL 8.8-10.2 Normal (applies to non-numeric re sults) [facility] ([facility]) Ast/Sgot 14 U/L 7-37 Normal (applies to non-numeric resul ts) [facility] ([facility]) Alkaline Phosphatase 80 U/L 45-117 Normal (applies to non-num caren results) [facility] ([facility]) Alt/SGPT 29 U/L 12-78 Normal (applies to non-numeric resul ts) [facility] ([facility]) Albumin 3.7 GM/DL 3.2-5.2 Normal (applies to non-numeric resul ts) [facility] ([facility]) Bilirubin,Total 0.5 mg/dL 0.2-1.0 Normal (applies to non-numeric results) [facility] ([facility]) Total Protein 7.0 GM/DL 6.4-8.2 Normal (applies to non-numeric re sults) [facility] ([facility]) Albumin/Globulin Ratio 1.1 1.2-2.2 Below low normal [facility] ([facility]) ID Date Data Source [id number] 06/02/2020 12:00:00 AM EST [facility] Name Value Range Interpretation Code Description Data Mary rce(s) Supporting Document(s) SARS coronavirus 2 RNA [Presence] in Res piratory specimen by DAWIT with probe detection NEGATIVE [facility] This lab was ordered by Ham Montesinos and reported by [employer]. ID Date Data Source [id number] 06/02/2020 12:00:00 AM EST [facility] Name Value Range Interpretation Code Description Data Mary rce(s) Supporting Document(s) Carestart Rapid COVID Antigen Test Negative [facility] This lab was reported by Ham mari. ID Date Data Source [id number] 05/08/2020 11:00:00 AM EST [facility] ([facility]) Name Value Range Interpretation Code Description Data Mary rce(s) Supporting Document(s) Bacteria identified in Urine by Culture Laboratory test result Normal (applies to non-numeric results) [facility] ([facility]) FULL REPORT IN LAB NOTES (eCW and [facility] ). NO GROWTH ID Date Data Source [id number] 05/08/2020 11:00:00 AM EST [facility] ([facility]) Name Value Range Interpretation Code Description Data Mary rce(s) Supporting Document(s) Appearance, Urine Laboratory test result Normal (applies to non-numeric results) [facility] ([facility]) Color, Urine Laboratory test result Normal (applies to non -numeric results) [facility] ([facility]) Specific [place] Urine Auto 1.003 1.002-1.035 Norm al (applies to non-numeric results) [facility] ([facility]) Protein, Urine Auto Laboratory test result Samantha l (applies to non-numeric results) [facility] ([facility]) PH,Urine 7.0 units 5.0-9.0 Normal (applies to non-numeric resul ts) [facility] ([facility]) Ketone, Urine Auto Laboratory test result Normal (applies to non-numeric results) [facility] ([facility]) Glucose, Urine (Ua) Auto Laboratory test result Normal (applies to non-numeric results) [facility] ([facility]) Urobilinogen, Urine Auto 0.2 mg/dL 0.0-2.0 Normal (applies to non-numeric results) [facility] ([facility]) Bilirubin, Urine Auto Laboratory test result Nor mal (applies to non-numeric results) [facility] ([facility]) Nitrite, Urine Auto Laboratory test result Samantha l (applies to non-numeric results) [facility] ([facility]) Leukocyte Esterase, Urine Auto Laboratory test result Abov e high normal [facility] ([facility]) Blood, Urine Blood Laboratory test result Normal (applies to non-numeric results) [facility] ([facility]) RBC, Urine Auto 0 /HPF 0-3 Normal (applies to non-numeric results) [facility] ([facility]) WBC, Urine Auto 1 /HPF 0-3 Normal (applies to non-numeric results) [facility] ([facility]) Bacteria, Urine Auto Laboratory test result Norm al (applies to non-numeric results) [facility] ([facility]) Hyaline Cast, Urine Auto 0 /LPF 0-1 Normal (applies to non -numeric results) [facility] ([facility]) Squamous Epithelial Cell Ur AU 0 /HPF 0-6 N ormal (applies to non-numeric results) [facility] ([facility]) ID Date Data Source [id number] 05/07/2020 04:59:00 PM EST [facility] ([facility]) Name Value Range Interpretation Code Description Data Mary rce(s) Supporting Document(s) Thyroid Stimulating Hormone 1.040 uIU/ML 0.358-3.740 Norm al (applies to non- numeric results) [facility] ([facility]) Free T4 1.02 ng/dL 0.76-1.46 Normal (applies to non-numeric resul ts) [facility] ID Date Data Source [id number] 05/07/2020 04:59:00 PM EST [facility] ([facility]) Name Value Range Interpretation Code Description Data Mary rce(s) Supporting Document(s) Folate Laboratory test result Normal (applies to non-n umeric results) [facility] ([facility]) FOLATE NORMAL RANGE NORMAL GREATER THAN 5.4 NG/ML INDETERMINATE 3.4-5.4 NG/ML DEFICIENT LESS THAN 3.4 NG/ML Vitamin B12 Level 671 pg/mL Normal (applies to non-numeri c results) [facility] ([facility]) VITAMIN B12 NORMAL RANGE NORMAL 247 - 911 PG/ML INDETERMINATE 211 - 246 PG/ML DEFICIENT LESS THAN 211 PG/ML ID Date Data Source [id number] 05/07/2020 04:59:00 PM EST [facility] ([facility]) Name Value Range Interpretation Code Description Data Mary rce(s) Supporting Document(s) [place] [Mass/volume] in Serum or Plasma 0.61 meq/L 0.60-1. 20 Normal (applies to non-numeric results) [facility] ([facility]) ID Date Data Source [id number] 05/07/2020 04:59:00 PM EST [facility] ([facility]) Name Value Range Interpretation Code Description Data Mary rce(s) Supporting Document(s) Bacteria identified in Urine by Culture Laboratory test result [facility]) ID Date Data Source [id number] 05/02/2020 12:41:00 PM EST [facility] ([facility]) Name Value Range Interpretation Code Description Data Mary rce(s) Supporting Document(s) Hemoglobin 12.3 g/dL 12.0-15.5 Normal (applies to non-numeric resul ts) [facility] ([facility]) White Blood Count 9.5 10 4.0-10.0 Normal (applies to non-numeri c results) [facility]) Red Blood Count 3.95 10 4.00-5.40 Below low normal [facility] ([facility]) Mean Corpuscular Volume 99.5 fl 80.0-96.0 Above high normal [facility] ([facility]) Hematocrit 39.3 % 36.0-47.0 Normal (applies to non-numeric resul ts) [facility] ([facility]) Mean Corpuscular HGB Conc 31.3 g/dL 32.0-36.5 Below low normal [facility] ([facility]) Mean Corpuscular Hemoglobin 31.1 pg 27.0-33.0 Norm al (applies to non-numeric results) [facility] ([facility]) Platelet Count, Automated 434 10 150-450 Normal (applies to non-numeric results) [facility] ([facility]) Neutrophils % 59.8 % 36.0-66.0 Normal (applies to non-numeric re sults) [facility] ([facility]) Red Cell Distribution Width 13.1 % 11.5-14.5 Norm al (applies to non-numeric results) [facility] ([facility]) Harlan % 10.0 % 0.0-5.0 Above high normal [facility] ([facility]) Lymph % 25.2 % 24.0-44.0 Normal (applies to non-numeric resul ts) [facility] ([facility]) Baso % 1.0 % 0.0-1.0 Normal (applies to non-numeric resul ts) [facility] ([facility]) Eos % 3.7 % 0.0-3.0 Above high normal [facility] ([facility]) Immature Granulocyte % 0.3 % 0-3.0 Normal (applies to non-n umeric results) [facility] ([facility]) Nucleated Red Blood Cell % 0.0 % 0-0 Normal (applies to n on-numeric results) [facility] ([facility]) Lymph # 2.4 10 1.5-5.0 Normal (applies to non-numeric resul ts) [facility] ([facility]) Neutrophils # 5.7 10 1.5-8.5 Normal (applies to non-numeric re sults) [facility] ([facility]) Harlan # 1.0 10 0.0-0.8 Above high normal [facility] ([facility]) Baso # 0.1 10 0.0-0.2 Normal (applies to non-numeric resul ts) [facility] ([facility]) Eos # 0.4 10 0.0-0.5 Normal (applies to non-numeric resul ts) [facility] ([facility]) ID Date Data Source [id number] 05/02/2020 12:41:00 PM EST [facility] ([facility]) Name Value Range Interpretation Code Description Data Mary rce(s) Supporting Document(s) Reticulocyte % 1.2 % 0.5-1.5 Normal (applies to non-numeric r esults) [facility] ([facility]) Reticulocyte # 46.5 10 17-77 Normal (applies to non-numeric r esults) [facility] ([facility]) Retic Hemoglobin Equivalent 35.5 pg 24-36 Norm al (applies to non-numeric results) [facility] ([facility]) ID Date Data Source [id number] 05/02/2020 12:41:00 PM EST [facility] ([facility]) Name Value Range Interpretation Code Description Data Mary rce(s) Supporting Document(s) Wero Result Calc Laboratory test result Normal (a pplies to non-numeric results) [facility] ([facility]) ID Date Data Source [id number] 05/02/2020 12:41:00 PM EST [facility] ([facility]) Name Value Range Interpretation Code Description Data Mary rce(s) Supporting Document(s) Haptoglobin [Mass/volume] in Serum or Plasma 194 mg/dL 42- 346 Normal (applies to non-numeric results) [facility] ([facility]) Performed at: RN - [facility] [address] [id number] [employer] Operator: Geovanna Stroud MD, Phone: [phone] ID Date Data Source [id number] 05/02/2020 12:41:00 PM EST [facility] ([facility]) Name Value Range Interpretation Code Description Data Mary rce(s) Supporting Document(s) Glucose, Fasting 75 mg/dL 70-100 Normal (applies to non-numeric results) [facility] ([facility]) Creatinine For GFR 1.11 mg/dL 0.55-1.30 Normal (applies to non -numeric results) [facility] ([facility]) Glomerular Filtration Rate 50.6 Normal (applies to n on-numeric results) [facility] ([facility]) <content>Units are mL/min/1.73 m2</content>
<content></content>
<content>Chronic Kidney Disease Staging per NKF:</content>
<content></content>
<content>Stage I & II GFR >=60 Normal to Mildly Decreased</content>
<content>Stage III GFR 30- 59 Moderately Decreased</content>
<content>Stage IV GFR 15-29 Severely Decreased</content>
<content>Stage V GFR <15 Very Little GFR Left</content>
<content>ESRD GFR <15 on SPEECH LANGUAGE PATHOLOGIST ASSISTANT</content>
<content></content> Blood Urea Nitrogen 14 mg/dL 7-18 Normal (applies to non-nume paula results) [facility] ([facility]) Potassium Serum 3.9 meq/L 3.5-5.1 Normal (applies to non-numeric results) [facility] ([facility]) Chloride Level 109 meq/L 98-107 Above high normal [facility] ([facility]) Sodium Level 142 meq/L 136-145 Normal (applies to non-numeric res ults) [facility] ([facility]) Calcium Level 9.5 mg/dL 8.8-10.2 Normal (applies to non-numeric re sults) [facility] ([facility]) Carbon Dioxide Level 31 meq/L 21-32 Normal (applies to non-num caren results) [facility] ([facility]) Anion Gap 2 meq/L 8-16 Below low normal [facility] ( [facility]) Ast/Sgot 14 U/L 7-37 Normal (applies to non-numeric resul ts) [facility] ([facility]) Alt/SGPT 29 U/L 12-78 Normal (applies to non-numeric resul ts) [facility] ([facility]) Alkaline Phosphatase 86 U/L 45-117 Normal (applies to non-num caren results) [facility] ([facility]) Albumin 3.7 GM/DL 3.2-5.2 Normal (applies to non-numeric resul ts) [facility] ([facility]) Total Protein 7.2 GM/DL 6.4-8.2 Normal (applies to non-numeric re sults) [facility] ([facility]) Bilirubin,Total 0.3 mg/dL 0.2-1.0 Normal (applies to non-numeric results) [facility] ([facility]) Albumin/Globulin Ratio 1.1 1.2-2.2 Below low normal [facility] ([facility]) ID Date Data Source [id number] 05/02/2020 12:41:00 PM EST [facility] ([facility]) Name Value Range Interpretation Code Description Data Mary rce(s) Supporting Document(s) Lactate dehydrogenase [Enzymatic activit y/volume] in Serum or Plasma by Lactate to pyruvate reaction 210 U/L 84-246 Normal (applies to non-numeric re sults) [facility] ([facility]) ID Date Data Source [id number] 05/02/2020 12:41:00 PM EST [facility] ([facility]) Name Value Range Interpretation Code Description Data Mary rce(s) Supporting Document(s) Total Iron Binding Capacity 376 ug/dL 250-450 Norm al (applies to non-numeric results) [facility] ([facility]) Iron (Fe) 106 ug/dL 50-170 Normal (applies to non-numeric resul ts) [facility] ([facility]) Percent Saturation 28.2 % 13.2-45.0 Normal (applies to non-numer ic results) [facility] ([facility]) ID Date Data Source [id number] 05/02/2020 12:41:00 PM EST [facility] ([facility]) Name Value Range Interpretation Code Description Data Mary rce(s) Supporting Document(s) Laboratory test finding (navigational concept) Laboratory test r esult Normal (applies to non-numeric results) [facility] ([facility]) REV'D BY O AMINTA Laboratory test finding (navigational concept) Laboratory test r esult Normal (applies to non-numeric results) [facility] ([facility]) NO MONOCLONAL BANDS NOTED. ID Date Data Source [id number] 05/02/2020 12:41:00 PM EST [facility] ([facility]) Name Value Range Interpretation Code Description Data Mary rce(s) Supporting Document(s) Albumin % 56.7 % 55.8-66.1 Normal (applies to non-numeric resul ts) [facility] ([facility]) Pzrkp-5-Hriroebzv % 12.7 % 7.1-11.8 Above high normal [facility] ([facility]) Ykomz-3-Wygoyzaf % 5.1 % 2.9-4.9 Above high normal [facility] ([facility]) Uqct-4-Hxxggamzw % 7.3 % 4.7-7.2 Above high normal [facility] Albumin 4.08 GM/DL 3.29-5.55 Normal (applies to non-numeric resul ts) [facility] ([facility]) Gamma Globulin % 11.0 % 11.1-18.8 Below low normal [facility] ([facility]) Hfzc-4-Eepwuwwdd % 7.2 % 3.2-6.5 Above high normal [facility] Rbzhb-5-Ygxcmgdcv 0.91 GM/DL 0.42-0.99 Normal (applies to non- numeric results) [facility] ([facility]) Viphm-0-Nodfziool 0.37 GM/DL 0.17-0.41 Normal (applies to non- numeric results) [facility] ([facility]) Ymqu-5-Xxlljgcjy 0.53 GM/DL 0.28-0.60 Normal (applies to non-numeric results) [facility] ([facility]) Wjws-1-Qvqznhabn 0.52 GM/DL 0.19-0.55 Normal (applies to non-numeric results) [facility] ([facility]) Gamma Globulins 0.79 GM/DL 0.65-1.58 Normal (applies to non-numeric results) [facility] ([facility]) Spep Interpretation Laboratory test result Samantha l (applies to non-numeric results) [facility] ([facility]) NO M-SPIKE(S)NOTED. Total Protein 7.2 GM/DL 6.4-8.2 Normal (applies to non-numeric re sults) [facility] ([facility]) Laboratory test finding (navigational concept) Laboratory test r esult Normal (applies to non-numeric results) [facility] ([facility]) REV'D BY Efrem LEMOS ID Date Data Source [id number] 05/02/2020 12:41:00 PM EST [facility] ([facility]) Name Value Range Interpretation Code Description Data Mary rce(s) Supporting Document(s) Ferritin [Mass/volume] in Serum or Plasma 72 ng/mL 8-252 Normal (applies to non- numeric results) [facility] ([facility]) ID Date Data Source [id number] 04/02/2020 12:00:00 AM [facility]logy Imaging Temitope Contreras DO Patient Name: DAYAMI [address] Date of : [address] Date of Exam: 04/02/2020KIT Montesinos [id number]#: Fax: [phone] EXAM: HIP LEFT UNILATERAL (COMPLETE) [...] rce(s) Supporting Document(s) ID Date Data Source [id number] 02/27/2020 09:04:00 AM EDT [facility] ([facility]) Name Value Range Interpretation Code Description Data Mary rce(s) Supporting Document(s) Natriuretic peptide.B prohormone N-Terminal [Mass/volu me] in Serum or Plasma 140 pg/mL Normal (applies to non-numeric results) [facility] ([facility]) FAX TO [phone] FAX TO [phone] Magnesium [Mass/volume] in Serum or Plasma 2.9 mg/dL 1.8-2.4 Above high normal [facility] ([facility]) FAX TO [phone] FAX TO [phone] Thyrotropin [Units/volume] in Serum or Plasma 1.080 uIU/ML 0. 358-3.740 Normal (applies to non-numeric results) [facility] ([facility]) FAX TO [phone] FAX TO [phone] ID Date Data Source [id number] 02/27/2020 09:04:00 AM EDT [facility]) Name Value Range Interpretation Code Description Data Mary rce(s) Supporting Document(s) Glucose, Fasting 86 mg/dL 70-100 Normal (applies to non-numeric results) [facility] ([facility]) Glomerular Filtration Rate 54.0 Normal (applies to n on-numeric results) [facility] ([facility]) <content>Units are mL/min/1.73 m2</content>
<content></content>
<content>Chronic Kidney Disease Staging per NKF:</content>
<content></content>
<content>Stage I & II GFR >=60 Normal to Mildly Decreased</content>
<content>Stage III GFR 30- 59 Moderately Decreased</content>
<content>Stage IV GFR 15-29 Severely Decreased</content>
<content>Stage V GFR <15 Very Little GFR Left</content>
<content>ESRD GFR <15 on SPEECH LANGUAGE PATHOLOGIST ASSISTANT</content>
<content></content> Creatinine For GFR 1.05 mg/dL 0.55-1.30 Normal (applies to non -numeric results) [facility]) Blood Urea Nitrogen 15 mg/dL 7-18 Normal (applies to non-nume paula results) [facility] ([facility]) Chloride Level 109 meq/L 98-107 Above high normal [facility] ([facility]) Sodium Level 144 meq/L 136-145 Normal (applies to non-numeric res ults) [facility] ([facility]) Potassium Serum 4.6 meq/L 3.5-5.1 Normal (applies to non-numeric results) [facility] ([facility]) Carbon Dioxide Level 31 meq/L 21-32 Normal (applies to non-num caren results) [facility] ([facility]) Anion Gap 4 meq/L 8-16 Below low normal [facility] ( [facility]) Calcium Level 8.9 mg/dL 8.8-10.2 Normal (applies to non-numeric re sults) [facility] ([facility]) Alt/SGPT 24 U/L 12-78 Normal (applies to non-numeric resul ts) [facility] ([facility]) Ast/Sgot 15 U/L 7-37 Normal (applies to non-numeric resul ts) [facility] ([facility]) Total Protein 6.8 GM/DL 6.4-8.2 Normal (applies to non-numeric re sults) [facility] ([facility]) Bilirubin,Total 0.3 mg/dL 0.2-1.0 Normal (applies to non-numeric results) [facility] ([facility]) Alkaline Phosphatase 82 U/L 45-117 Normal (applies to non-num caren results) [facility] ([facility]) Albumin/Globulin Ratio 1.1 1.2-2.2 Below low normal [facility] ([facility]) Albumin 3.5 GM/DL 3.2-5.2 Normal (applies to non-numeric resul ts) [facility] ([facility]) ID Date Data Source [id number] 02/27/2020 09:04:00 AM EDT [facility] ([facility]) Name Value Range Interpretation Code Description Data Mary rce(s) Supporting Document(s) Red Blood Count 3.48 10 4.00-5.40 Below low normal [facility] ([facility]) Hemoglobin 10.6 g/dL 12.0-15.5 Below low normal [facility] ( [facility]) White Blood Count 8.8 10 4.0-10.0 Normal (applies to non-numeri c results) [facility] ([facility]) Mean Corpuscular Volume 100.3 fl 80.0-96.0 Above high normal [facility] ([facility]) Hematocrit 34.9 % 36.0-47.0 Below low normal [facility] ( [facility]) Mean Corpuscular Hemoglobin 30.5 pg 27.0-33.0 Norm al (applies to non-numeric results) [facility] ([facility]) Mean Corpuscular HGB Conc 30.4 g/dL 32.0-36.5 Below low normal [facility] Red Cell Distribution Width 13.5 % 11.5-14.5 Norm al (applies to non-numeric results) [facility] ([facility]) Platelet Count, Automated 357 10 150-450 Normal (applies to non-numeric results) [facility] ([facility]) Lymph % 28.9 % 24.0-44.0 Normal (applies to non-numeric resul ts) [facility] ([facility]) Neutrophils % 56.1 % 36.0-66.0 Normal (applies to non-numeric re sults) [facility] ([facility]) Baso % 1.1 % 0.0-1.0 Above high normal [facility] ([facility]) Eos % 2.8 % 0.0-3.0 Normal (applies to non-numeric resul ts) [facility] ([facility]) Harlan % 10.9 % 0.0-5.0 Above high normal [facility] ([facility]) Neutrophils # 4.9 10 1.5-8.5 Normal (applies to non-numeric re sults) [facility] ([facility]) Immature Granulocyte % 0.2 % 0-3.0 Normal (applies to non-n umeric results) [facility] ([facility]) Nucleated Red Blood Cell % 0.0 % 0-0 Normal (applies to n on-numeric results) [facility] ([facility]) Harlan # 1.0 10 0.0-0.8 Above high normal [facility] ([facility]) Lymph # 2.5 10 1.5-5.0 Normal (applies to non-numeric resul ts) [facility] ([facility]) Eos # 0.3 10 0.0-0.5 Normal (applies to non-numeric resul ts) [facility] ([facility]) Baso # 0.1 10 0.0-0.2 Normal (applies to non-numeric resul ts) [facility] ([facility]) ID Date Data Source [id number] 12/21/2019 06:30:00 AM EDT [facility] ([facility]) Name Value Range Interpretation Code Description Data Mary rce(s) Supporting Document(s) Calcidiol [Mass/volume] in Serum or Plasma 59.2 ng/mL 30.0- 100.0 Normal (applies to non-numeric results) [facility] ([facility]) ID Date Data Source [id number] 12/21/2019 06:30:00 AM EDT [facility] ([facility]) Name Value Range Interpretation Code Description Data Mary rce(s) Supporting Document(s) Thyroid Stimulating Hormone 2.740 uIU/ML 0.358-3.740 Norm al (applies to non- numeric results) [facility] ([facility]) Free T4 1.03 ng/dL 0.76-1.46 Normal (applies to non-numeric resul ts) [facility] ([facility]) ID Date Data Source [id number] 12/21/2019 06:30:00 AM EDT [facility] ([facility]) Name Value Range Interpretation Code Description Data Mary rce(s) Supporting Document(s) Blood Urea Nitrogen 25 mg/dL 7-18 Above high normal [facility] ([facility]) Creatinine For GFR 1.42 mg/dL 0.55-1.30 Above high normal [facility] Glucose, Fasting 95 mg/dL 70-100 Normal (applies to non-numeric results) [facility] ([facility]) Potassium Serum 3.5 meq/L 3.5-5.1 Normal (applies to non-numeric results) [facility] ([facility]) Glomerular Filtration Rate 38.1 Below low normal [facility] ([facility]) <content>Units are mL/min/1.73 m2</content>
<content></content>
<content>Chronic Kidney Disease Staging per NKF:</content>
<content></content>
<content>Stage I & II GFR >=60 Normal to Mildly Decreased</content>
<content>Stage III GFR 30- 59 Moderately Decreased</content>
<content>Stage IV GFR 15-29 Severely Decreased</content>
<content>Stage V GFR <15 Very Little GFR Left</content>
<content>ESRD GFR <15 on SPEECH LANGUAGE PATHOLOGIST ASSISTANT</content>
<content></content> Sodium Level 143 meq/L 136-145 Normal (applies to non-numeric res ults) [facility] ([facility]) Chloride Level 107 meq/L 98-107 Normal (applies to non-numeric r esults) [facility] ([facility]) Anion Gap 6 meq/L 8-16 Below low normal [facility]) Carbon Dioxide Level 30 meq/L 21-32 Normal (applies to non-num caren results) [facility] ([facility]) Ast/Sgot 16 U/L 7-37 Normal (applies to non-numeric resul ts) [facility] ([facility]) Alt/SGPT 24 U/L 12-78 Normal (applies to non-numeric resul ts) [facility] ([facility]) Calcium Level 9.0 mg/dL 8.8-10.2 Normal (applies to non-numeric re sults) [facility] ([facility]) Bilirubin,Total 0.3 mg/dL 0.2-1.0 Normal (applies to non-numeric results) [facility] ([facility]) Alkaline Phosphatase 72 U/L 45-117 Normal (applies to non-num caren results) [facility] ([facility]) Total Protein 6.9 GM/DL 6.4-8.2 Normal (applies to non-numeric re sults) [facility] ([facility]) Albumin/Globulin Ratio 1.1 1.2-2.2 Below low normal [facility] Albumin 3.6 GM/DL 3.2-5.2 Normal (applies to non-numeric resul ts) [facility] ([facility]) ID Date Data Source [id number] 12/21/2019 06:30:00 AM EDT [facility] ([facility]) Name Value Range Interpretation Code Description Data Mary rce(s) Supporting Document(s) Red Blood Count 3.63 10 4.00-5.40 Below low normal [facility] ([facility]) Hemoglobin 11.2 g/dL 12.0-15.5 Below low normal [facility] ( [facility]) White Blood Count 8.5 10 4.0-10.0 Normal (applies to non-numeri c results) [facility] ([facility]) Hematocrit 35.9 % 36.0-47.0 Below low normal [facility] ( [facility]) Mean Corpuscular Hemoglobin 30.9 pg 27.0-33.0 Norm al (applies to non-numeric results) [facility] ([facility]) Mean Corpuscular Volume 98.9 fl 80.0-96.0 Above high normal [facility] ([facility]) Platelet Count, Automated 326 10 150-450 Normal (applies to non-numeric results) [facility] ([facility]) Red Cell Distribution Width 12.7 % 11.5-14.5 Norm al (applies to non-numeric results) [facility] ([facility]) Mean Corpuscular HGB Conc 31.2 g/dL 32.0-36.5 Below low normal [facility] ([facility]) Lymph % 38.6 % 24.0-44.0 Normal (applies to non-numeric resul ts) [facility] ([facility]) Neutrophils % 48.1 % 36.0-66.0 Normal (applies to non-numeric re sults) [facility] ([facility]) Harlan % 10.2 % 0.0-5.0 Above high normal [facility] ([facility]) Eos % 2.0 % 0.0-3.0 Normal (applies to non-numeric resul ts) [facility] ([facility]) Immature Granulocyte % 0.2 % 0-3.0 Normal (applies to non-n umeric results) [facility] ([facility]) Baso % 0.9 % 0.0-1.0 Normal (applies to non-numeric resul ts) [facility] ([facility]) Neutrophils # 4.1 10 1.5-8.5 Normal (applies to non-numeric re sults) [facility] ([facility]) Nucleated Red Blood Cell % 0.0 % 0-0 Normal (applies to n on-numeric results) [facility] ([facility]) Eos # 0.2 10 0.0-0.5 Normal (applies to non-numeric resul ts) [facility] ([facility]) Harlan # 0.9 10 0.0-0.8 Above high normal [facility] ([facility]) Lymph # 3.3 10 1.5-5.0 Normal (applies to non-numeric resul ts) [facility] ([facility]) Baso # 0.1 10 0.0-0.2 Normal (applies to non-numeric resul ts) [facility] ([facility]) ID Date Data Source [id number] 12/19/2019 12:00:00 AM EDT [facility] Patient Name: DAYAMI [id number] [place] [address] Date of : [id number] [place] [id number] Date of Exam: 12/19/2019#: Fax: EXAM: CT [...] by: Azar Vann MD 12/19/2019 10:23 AM [place] [facility]VrpingV/Juan C you for referring MURALI SULLIVAN to our office. Electronically Signed - VLAD 12/19/19 10:36 Name Value Range Interpretation Code Description Data Mary rce(s) Supporting Document(s) ID Date Data Source [id number] 10/23/2019 08:45:37 PM EDT [facility] Name Value Range Interpretation Code Description Data Mary rce(s) Supporting Document(s) LITHIUM 0.64 mmol/L (0.60-1.50) [facility] ID Date Data Source VENIPUNCTURE OP 10/23/2019 12:00:00 AM EDT [facility] ([facility]) Name Value Range Interpretation Code Description Data Mary rce(s) Supporting Document(s) VENIPUNCTURE VENIPUNCTURE [facility] ([facility]) ID Date Data Source LITHIUM 10/23/2019 12:00:00 AM EDT [facility] ([facility]) Name Value Range Interpretation Code Description Data Mary rce(s) Supporting Document(s) 0.64 0.60-1.50 LITHIUM [facility] ([facility]) ID Date Data Source UA MICRO 10/23/2019 12:00:00 AM EDT [facility] ([facility]) Name Value Range Interpretation Code Description Data Mary rce(s) Supporting Document(s) 6-10 0-5 WBC /HPF [facility] ([facility]) 0-2 0-2 RBC /HPF [facility] ([facility]) 1+ SQUAM EPI/hpv eCW1 ([facility]) 1+ RENAL EPI/hpf [facility] ([facility]) NONE SEEN TRANS EPI/hpf [facility] ([facility]) 2+ BACTERIA/LPF e[facility] ([facility]) NONE SEEN F GRAN STITCHER HAND/LPF [facility] ([facility]) 1+ MUCOUS/hpf [facility]) FEW HYALINE STITCHER HAND/LPF [facility] ([facility]) NONE SEEN OTHER /hpf [facility] ([facility] NONE SEEN WBC CAST [facility] ([facility] NONE SEEN NONE SEEN CELLULAR CAST [facility] ([facility]) NONE SEEN CRS GRAN STITCHER HAND [facility] ([facility]) NONE SEEN RBC CAST [facility] ([facility]) NONE SEEN TRIPHOSPH CRY eCW1 ([facility]) NONE SEEN CA OX BROOKE eCW1 [facility] NONE SEEN OTHER CAST [facility] NEGATIVE URIC ACID BROOKE [facility]) NONE PRESENT SPERMATAZOA eCW[facility] ([facility]) NONE SEEN TRICHOMONAS [facility] NONE SEEN YEAST [facility] ([facility]) ID Date Data Source [id number] 10/23/2019 12:00:00 AM EDT [facility] ([facility]) Name Value Range Interpretation Code Description Data Mary rce(s) Supporting Document(s) Yellow YELLOW COLOR [facility] ([facility]) Negative NEGATIVE PROTEIN [facility] ([facility]) 1.020 SPEC.GRAV. [facility] ([facility]) Clear CLEAR CLARITY [facility] ([facility]) 7.0 5.0 - 8.0 PH [facility] ([facility] Negative NEGATIVE GLUCOSE [facility] ([facility]) Negative NEGATIVE KETONES e[facility] ([facility]) Negative NEGATIVE BILIRUBIN [facility] ([facility]) 0.2 0.2-1.0 UROBILINOGEN e[facility] ([facility]) Negative NEGATIVE BLOOD [facility] ([facility]) 1+ NEGATIVE LEUKOCYTES [facility] ([facility] Negative NEGATIVE NITRITE [facility] ([facility]) ID Date Data Source PTH,INTACT 10/23/2019 12:00:00 AM EDT [facility] ([facility]) Name Value Range Interpretation Code Description Data Mary rce(s) Supporting Document(s) 69.2 8.2-83.5 PTH,INTACT [facility] ([facility]) ID Date Data Source Urine Protein.Creat ratio 10/23/2019 12:00:00 AM EDT [facility] ([facility] Name Value Range Interpretation Code Description Data Mary rce(s) Supporting Document(s) 26.0 6.0-11.9 U-PROTEIN [facility] ([facility]) 91.5 30.0-125.0 U-CREA [facility] ([facility] 0.3 0.0-0.2 U-PROT/CREAT [facility] ([facility]) ID Date Data Source CBC w/DIFF 10/23/2019 12:00:00 AM EDT [facility] ([facility]) Name Value Range Interpretation Code Description Data Mary rce(s) Supporting Document(s) 11.7 12.0-18.0 HGB [facility] ([facility]) 3.77 4.20-6.30 RBC [facility] ([facility]) 8.8 4.1-10.9 WBC [facility] ([facility]) 37.0 36.0-51.0 HCT [facility] ([facility]) 98.1 80.0-97.0 MCV [facility] ([facility]) 31.6 31.0-36.0 MCHC e[facility] ([facility]) 31.0 26.0-32.0 MCH [facility] ([facility]) 8.7 7.4-10.4 MPV [facility] ([facility]) 387 140-440 PLT [facility] ([facility]) 46.0 36.4-46.3 RDW-SD e[facility] ([facility]) 12.6 11.5-15.5 RDW-CV [facility] ([facility]) 0.80 0.20-0.90 MONO # [facility]CW[facility] ([facility]) 2.26 0.60-4.10 LYMPH # [facility]CW[facility] ([facility] 5.34 1.60-6.10 NEUT # [facility]CW[facility] ([facility]) 0.06 0.00-0.10 BASO # [facility] ([facility]) 0.28 0.00-0.50 EO # [facility] ([facility] 61.1 34.0-71.1 NEUT % [facility] ([facility] 25.8 10.0-58.5 LYMPH % [facility]CW[facility] ([facility]) 9.1 10.0-58.5 MONO % [facility] ([facility]) 0.7 0.1-1.2 BASO % [facility] ([facility]) 0.01 LOW IG# [facility] ([facility]) 3.2 0.7-7.0 EO % [facility] ([facility]) 0.10 0.00-0.43 IG% [facility] ([facility]) ID Date Data Source [id number] 10/23/2019 12:00:00 AM EDT [facility] ([facility]) Name Value Range Interpretation Code Description Data Mary rce(s) Supporting Document(s) 16 7-18 BUN [facility] ([facility]) 3.6 3.4-5.0 ALBUMIN [facility] ([facility]) 46.18 >=60.00 GFR NON-AFR.AM [facility] ([facility]) 9.1 8.5-10.1 CALCIUM [facility] ([facility]) 1.2 0.6-1.3 CREATININE [facility]CW[facility] ([facility] 55.88 >=60.00 GFR AFR.AM [facility] ([facility]) 4.1 3.6-5.2 POTASSIUM [facility] ([facility] 144 135-145 SODIUM [facility] ([facility]) 7.6 6.4-8.2 TOTAL PROTEIN eCW1 ([facility]) 105 100-108 CHLORIDE eCW[facility] ([facility] 30.7 21.0-32.0 CO2 [facility] ([facility] 94.0 70.0-110.0 GLUCOSE e[facility] ([facility] 82 46-116 ALPI [facility] ([facility] 0.40 0.20-1.00 T BILIRUBIN [facility] 14 15-37 AST [facility] ([facility] 8 5-15 ANION GAP [facility] ([facility] 26 30-65 ALTI [facility] ([facility] ID Date Data Source [id number] 09/13/2019 08:33:00 AM EDT [facility] ([facility]) Name Value Range Interpretation Code Description Data Mary rce(s) Supporting Document(s) Osmolality of Serum or Plasma 297 MOSM/KG 280-301 No rmal (applies to non-numeric results) [facility] ([facility]) Sodium [Moles/volume] in Urine Laboratory test result [facility] ([facility]) Osmolality of Urine Laboratory test result [facility] ([facility]) ID Date Data Source [id number] 09/13/2019 08:33:00 AM EDT [facility] ([facility]) Name Value Range Interpretation Code Description Data Mary rce(s) Supporting Document(s) Glucose, Fasting 79 mg/dL 70-100 Normal (applies to non-numeric results) [facility]) Glomerular Filtration Rate 45.1 Normal (applies to n on-numeric results) [facility] ([facility]) <content>Units are mL/min/1.73 m2</content>
<content></content>
<content>Chronic Kidney Disease Staging per NKF:</content>
<content></content>
<content>Stage I & II GFR >=60 Normal to Mildly Decreased</content>
<content>Stage III GFR 30- 59 Moderately Decreased</content>
<content>Stage IV GFR 15-29 Severely Decreased</content>
<content>Stage V GFR <15 Very Little GFR Left</content>
<content>ESRD GFR <15 on SPEECH LANGUAGE PATHOLOGIST ASSISTANT</content>
<content></content> Blood Urea Nitrogen 18 mg/dL 7-18 Normal (applies to non-nume paula results) [facility] ([facility]) Creatinine For GFR 1.23 mg/dL 0.55-1.30 Normal (applies to non -numeric results) [facility] ([facility]) Potassium Serum 4.0 meq/L 3.5-5.1 Normal (applies to non-numeric results) [facility] ([facility]) Chloride Level 108 meq/L 98-107 Above high normal [facility] ([facility]) Sodium Level 143 meq/L 136-145 Normal (applies to non-numeric res ults) [facility] ([facility]) Anion Gap 4 meq/L 8-16 Below low normal [facility] ( [facility]) Carbon Dioxide Level 31 meq/L 21-32 Normal (applies to non-num caren results) [facility] ([facility]) Calcium Level 8.9 mg/dL 8.8-10.2 Normal (applies to non-numeric re sults) [facility] ([facility]) ID Date Data Source [id number] 09/13/2019 08:33:00 AM EDT [facility]) Name Value Range Interpretation Code Description Data Mary rce(s) Supporting Document(s) Laboratory test finding (navigational concept) 293 mOsmol/kg 2 80-301 Normal (applies to non-numeric results) [facility] ([facility]) Performed at: [address] [id number] [address] [employer] Operator: Sondra Alegria MD, Phone: [phone] Laboratory test finding (navigational concept) 3.0 pg/mL 0 .0-4.7 Normal (applies to non-numeric results) [facility] ([facility]) . Results of this test are labeled for research purposes only by the assay's filter worker. The performance characteristics of this assay have not been established by the filter worker. The result should not be used for treatment or for diagnostic purposes without confirmation of the diagnosis by another medically established diagnostic product or procedure. The performance characteristics were determined by [facility]. ID Date Data Source [id number] 09/13/2019 08:27:00 AM EDT [facility] ([facility]) Name Value Range Interpretation Code Description Data Mary rce(s) Supporting Document(s) Osmolality of Urine 230 MOSM/KG 500-800 Below low normal [facility] ([facility]) Urine Source: URINE, CLEAN CATCH Sodium [Moles/volume] in Urine 33 meq/L N ormal (applies to non-numeric results) [facility] ([facility]) Urine Source: URINE, CLEAN CATCH ID Date Data Source [id number] 09/13/2019 08:27:00 AM EDT [facility]) Name Value Range Interpretation Code Description Data Mary rce(s) Supporting Document(s) Color, Urine Laboratory test result Normal (applies to non -numeric results) [facility]) Appearance, Urine Laboratory test result Normal (applies to non-numeric results) [facility] ([facility]) Specific [place] Urine Auto 1.008 1.002-1.035 Norm al (applies to non-numeric results) [facility] ([facility]) Protein, Urine Auto Laboratory test result Above high norm al [facility] ([facility]) PH,Urine 7.0 units 5.0-9.0 Normal (applies to non-numeric resul ts) [facility] ([facility]) Ketone, Urine Auto Laboratory test result Normal (applies to non-numeric results) [facility] ([facility]) Glucose, Urine (Ua) Auto Laboratory test result Normal (applies to non-numeric results) [facility] ([facility]) Bilirubin, Urine Auto Laboratory test result Nor mal (applies to non-numeric results) [facility] ([facility]) Urobilinogen, Urine Auto 0.2 mg/dL 0.0-2.0 Normal (applies to non-numeric results) [facility] ([facility]) Nitrite, Urine Auto Laboratory test result Samantha l (applies to non-numeric results) [facility] ([facility]) Leukocyte Esterase, Urine Auto Laboratory test result Abov e high normal [facility] ([facility]) RBC, Urine Auto 1 /HPF 0-3 Normal (applies to non-numeric results) [facility] ([facility]) WBC, Urine Auto 14 /HPF 0-3 Above high normal ME D[facility] ([facility]) Blood, Urine Blood Laboratory test result Normal (applies to non-numeric results) [facility] ([facility]) Mucus, Urine Laboratory test result Normal (applies to non -numeric results) [facility] ([facility]) Bacteria, Urine Auto Laboratory test result Norm al (applies to non-numeric results) [facility] ([facility]) Squamous Epithelial Cell Ur AU 0 /HPF 0-6 N ormal (applies to non-numeric results) [facility] ([facility]) Hyaline Cast, Urine Auto 1 /LPF 0-1 Normal (applies to non -numeric results) [facility] ID Date Data Source [id number] 08/14/2019 12:00:00 AM EDT [facility] Kirk Rodrigues Pa-C Patient Name: DAYAMI [address]ULL[address]ANE[address] Date of : [address] Date of Exam: 08/14/2019KIT Montesinos [id number]#: Fax: [phone] EXAM: LUMBOSACRAL SPINE COMPLETE WITH BENDING XRAYCLINICAL INFORMATION: Pain with radicular symptoms.Comparison is 07/29/2006.Seven views with flexion and extension bending views. These images wereobtained using digi katt radiography.There is oqjtcybu-[id number] posterior disc space narrowing at every levelwhich [...] rce(s) Supporting Document(s) ID Date Data Source [id number] 08/14/2019 12:00:00 AM EDT [facility] Patient Name: DAYAMI SULLIVANE[address] Date of : [address] Date of Exam: 08/14/2019KIT Montesinos [id number]#: Fax: [phone] EXAM: KNEE RIGHT (COMPLETE) X-RAYCLINICAL [...] WOUND CULTURE 08/14/2019 12:00:00 AM EDT eCW1 ([facility]) Name Value Range Interpretation Code Description Data Mary rce(s) Supporting Document(s) FULL REPORT IN LAB NOTES (eCW and [facility]). WOUND CULTURE eCW1 ([facility]) ID Date Data Source [id number] 08/01/2019 08:35:00 AM EDT [facility] ([facility]) Name Value Range Interpretation Code Description Data Mary rce(s) Supporting Document(s) Free T4 0.92 ng/dL 0.76-1.46 Normal (applies to non-numeric resul ts) [facility] ([facility]) Thyroid Stimulating Hormone 1.040 uIU/ML 0.358-3.740 Norm al (applies to non- numeric results) [facility]) ID Date Data Source [id number] 08/01/2019 08:35:00 AM EDT [facility] ([facility]) Name Value Range Interpretation Code Description Data Mary rce(s) Supporting Document(s) Glucose, Fasting 95 mg/dL 70-100 Normal (applies to non-numeric results) [facility] ([facility]) Blood Urea Nitrogen 23 mg/dL 7-18 Above high normal [facility] Sodium Level 142 meq/L 136-145 Normal (applies to non-numeric res ults) [facility] ([facility]) Creatinine For GFR 1.21 mg/dL 0.55-1.30 Normal (applies to non -numeric results) [facility]) Glomerular Filtration Rate 45.9 Normal (applies to n on-numeric results) [facility] ([facility]) <content>Units are mL/min/1.73 m2</content>
<content></content>
<content>Chronic Kidney Disease Staging per NKF:</content>
<content></content>
<content>Stage I & II GFR >=60 Normal to Mildly Decreased</content>
<content>Stage III GFR 30- 59 Moderately Decreased</content>
<content>Stage IV GFR 15-29 Severely Decreased</content>
<content>Stage V GFR <15 Very Little GFR Left</content>
<content>ESRD GFR <15 on SPEECH LANGUAGE PATHOLOGIST ASSISTANT</content>
<content></content> Carbon Dioxide Level 29 meq/L 21-32 Normal (applies to non-num caren results) [facility]) Chloride Level 109 meq/L 98-107 Above high normal [facility] ([facility]) Potassium Serum 3.5 meq/L 3.5-5.1 Normal (applies to non-numeric results) [facility]) Anion Gap 4 meq/L 8-16 Below low normal [facility] ( [facility]) Calcium Level 9.3 mg/dL 8.8-10.2 Normal (applies to non-numeric re sults) [facility] ([facility]) Ast/Sgot 15 U/L 7-37 Normal (applies to non-numeric resul ts) [facility] ([facility]) Bilirubin,Total 0.5 mg/dL 0.2-1.0 Normal (applies to non-numeric results) [facility] ([facility]) Alkaline Phosphatase 75 U/L 45-117 Normal (applies to non-num caren results) [facility] ([facility]) Alt/SGPT 31 U/L 12-78 Normal (applies to non-numeric resul ts) [facility] ([facility]) Total Protein 6.9 GM/DL 6.4-8.2 Normal (applies to non-numeric re sults) [facility]) Albumin 3.8 GM/DL 3.2-5.2 Normal (applies to non-numeric resul ts) [facility] ([facility]) Albumin/Globulin Ratio 1.23 1.00-1.93 Normal (applies to non-numeric results) [facility] ([facility]) ID Date Data Source [id number] 08/01/2019 08:35:00 AM EDT [facility] ([facility]) Name Value Range Interpretation Code Description Data Mary rce(s) Supporting Document(s) White Blood Count 9.3 10 4.0-10.0 Normal (applies to non-numeri c results) [facility] ([facility]) Mean Corpuscular Volume 97.7 fl 80.0-96.0 Above high normal [facility] ([facility]) Hemoglobin 12.1 g/dL 12.0-15.5 Normal (applies to non-numeric resul ts) [facility] ([facility]) Hematocrit 37.5 % 36.0-47.0 Normal (applies to non-numeric resul ts) [facility] ([facility]) Red Blood Count 3.84 10 4.00-5.40 Below low normal [facility] ([facility]) Mean Corpuscular Hemoglobin 31.5 pg 27.0-33.0 Norm al (applies to non-numeric results) [facility] ([facility]) Red Cell Distribution Width 12.8 % 11.5-14.5 Norm al (applies to non-numeric results) [facility] ([facility]) Mean Corpuscular HGB Conc 32.3 g/dL 32.0-36.5 Normal (applies to non-numeric results) [facility] ([facility]) Neutrophils % 51.8 % 36.0-66.0 Normal (applies to non-numeric re sults) [facility] ([facility]) Platelet Count, Automated 345 10 150-450 Normal (applies to non-numeric results) [facility] ([facility]) Lymph % 34.7 % 24.0-44.0 Normal (applies to non-numeric resul ts) [facility] ([facility]) Harlan % 9.6 % 0.0-5.0 Above high normal [facility] ([facility]) Baso % 1.0 % 0.0-1.0 Normal (applies to non-numeric resul ts) [facility] ([facility]) Eos % 2.8 % 0.0-3.0 Normal (applies to non-numeric resul ts) [facility] ([facility]) Immature Granulocyte % 0.1 % 0-3.0 Normal (applies to non-n umeric results) [facility] ([facility]) Nucleated Red Blood Cell % 0.0 % 0-0 Normal (applies to n on-numeric results) [facility] ([facility]) Lymph # 3.2 10 1.5-5.0 Normal (applies to non-numeric resul ts) [facility] ([facility]) Neutrophils # 4.8 10 1.5-8.5 Normal (applies to non-numeric re sults) [facility] ([facility]) [place] # 0.9 10 0.0-0.8 Above high normal [facility] ([facility]) Eos # 0.3 10 0.0-0.5 Normal (applies to non-numeric resul ts) [facility] ([facility]) Baso # 0.1 10 0.0-0.2 Normal (applies to non-numeric resul ts) [facility] ([facility]) ID Date Data Source [id number] 06/20/2019 08:11:00 AM EST [facility] Name Value Range Interpretation Code Description Data Mary rce(s) Supporting Document(s) White Blood Count 9.6 10 4.0-10.0 Normal (applies to non-numeri c results) [facility] ([facility]) Red Blood Count 3.84 10 4.00-5.40 Below low normal [facility] ([facility]) Hematocrit 39.0 % 36.0-47.0 Normal (applies to non-numeric resul ts) [facility] ([facility]) Hemoglobin 11.7 g/dL 12.0-15.5 Below low normal [facility] ( [facility]) Mean Corpuscular Hemoglobin 30.5 pg 27.0-33.0 Norm al (applies to non-numeric results) [facility] ([facility]) Mean Corpuscular Volume 101.6 fl 80.0-96.0 Above high normal [facility] ([facility]) Red Cell Distribution Width 13.0 % 11.5-14.5 Norm al (applies to non-numeric results) [facility] ([facility]) Mean Corpuscular HGB Conc 30.0 g/dL 32.0-36.5 Below low normal [facility] ([facility]) Neutrophils % 51.9 % 36.0-66.0 Normal (applies to non-numeric re sults) [facility] ([facility]) Lymph % 31.4 % 24.0-44.0 Normal (applies to non-numeric resul ts) [facility] ([facility]) Platelet Count, Automated 403 10 150-450 Normal (applies to non-numeric results) [facility] ([facility]) Baso % 1.2 % 0.0-1.0 Above high normal [facility] ([facility]) Eos % 5.4 % 0.0-3.0 Above high normal [facility] ([facility]) [place] % 9.9 % 0.0-5.0 Above high normal [facility] ([facility]) Nucleated Red Blood Cell % 0.0 % 0-0 Normal (applies to n on-numeric results) [facility] ([facility]) Immature Granulocyte % 0.2 % 0-3.0 Normal (applies to non-n umeric results) [facility] ([facility]) Neutrophils # 5.0 10 1.5-8.5 Normal (applies to non-numeric re sults) [facility] ([facility]) Lymph # 3.0 10 1.5-5.0 Normal (applies to non-numeric resul ts) [facility] ([facility]) [place] # 1.0 10 0.0-0.8 Above high normal [facility] ([facility]) Eos # 0.5 10 0.0-0.5 Normal (applies to non-numeric resul ts) [facility] ([facility]) Baso # 0.1 10 0.0-0.2 Normal (applies to non-numeric resul ts) [facility] ([facility]) ID Date Data Source [id number] 06/20/2019 08:11:00 AM EST [facility] ([facility]) Name Value Range Interpretation Code Description Data Mary rce(s) Supporting Document(s) Glucose, Fasting 105 mg/dL 70-100 Above high normal M [facility] ([facility]) Blood Urea Nitrogen 18 mg/dL 7-18 Normal (applies to non-nume paula results) [facility] ([facility]) Glomerular Filtration Rate 41.9 Normal (applies to n on-numeric results) [facility] ([facility]) <content>Units are mL/min/1.73 m2</content>
<content></content>
<content>Chronic Kidney Disease Staging per NKF:</content>
<content></content>
<content>Stage I & II GFR >=60 Normal to Mildly Decreased</content>
<content>Stage III GFR 30- 59 Moderately Decreased</content>
<content>Stage IV GFR 15-29 Severely Decreased</content>
<content>Stage V GFR <15 Very Little GFR Left</content>
<content>ESRD GFR <15 on SPEECH LANGUAGE PATHOLOGIST ASSISTANT</content>
<content></content> Creatinine For GFR 1.31 mg/dL 0.55-1.30 Above high normal [facility] ([facility]) Potassium Serum 3.9 meq/L 3.5-5.1 Normal (applies to non-numeric results) [facility]) Chloride Level 110 meq/L 98-107 Above high normal [facility] ([facility]) Sodium Level 144 meq/L 136-145 Normal (applies to non-numeric res ults) [facility] ([facility]) Anion Gap 4 meq/L 8-16 Below low normal [facility] ( [facility]) Carbon Dioxide Level 30 meq/L 21-32 Normal (applies to non-num caren results) [facility] ([facility]) Calcium Level 9.1 mg/dL 8.8-10.2 Normal (applies to non-numeric re sults) [facility] ([facility]) Ast/Sgot 14 U/L 7-37 Normal (applies to non-numeric resul ts) [facility]) Alt/SGPT 24 U/L 12-78 Normal (applies to non-numeric resul ts) [facility] ([facility]) Bilirubin,Total 0.4 mg/dL 0.2-1.0 Normal (applies to non-numeric results) [facility] ([facility]) Alkaline Phosphatase 80 U/L 45-117 Normal (applies to non-num caren results) [facility] ([facility]) Albumin 3.6 GM/DL 3.2-5.2 Normal (applies to non-numeric resul ts) [facility] ([facility]) Total Protein 7.1 GM/DL 6.4-8.2 Normal (applies to non-numeric re sults) [facility] ([facility]) Albumin/Globulin Ratio 1.03 1.00-1.93 Normal (applies to non-numeric results) [facility] ([facility]) ID Date Data Source [id number] 06/20/2019 08:11:00 AM EST [facility]) Name Value Range Interpretation Code Description Data Mary rce(s) Supporting Document(s) Calcidiol [Mass/volume] in Serum or Plasma 74.1 ng/mL 30.0- 100.0 Normal (applies to non-numeric results) [facility] ([facility]) ID Date Data Source [id number] 06/20/2019 08:11:00 AM EST [facility] ([facility]) Name Value Range Interpretation Code Description Data Mary rce(s) Supporting Document(s) Thyroid Stimulating Hormone 1.450 uIU/ML 0.358-3.740 Norm al (applies to non- numeric results) [facility] ([facility]) Free T4 0.89 ng/dL 0.76-1.46 Normal (applies to non-numeric resul ts) [facility] ([facility]) Procedure Social History Code Duration Value Status Description Data Source(s ) Smoking 07/03/2020 12:00:00 AM EST Patient has never smoked co mpleted Patient has never smoked [facility] ([facility]) Smoking 12/10/2019 12:00:00 AM EDT Patient has never smoked co mpleted Patient has never smoked [facility] ([facility]) Smoking 10/23/2019 12:00:00 AM EDT Never Smoker completed Never S mihaela eCW1 ([facility]) Smoking 10/23/2019 12:00:00 AM EDT Never Smoker completed Never S mihaela eCW1 ([facility]) Vital Signs ID Date Data Source [id number] Name Value Range Interpretation Code Description Data Source(s) [place] body weight 100 [lb_av] 100 [lb_av] [facility] T ([facility]) Oxygen saturation in Arterial blood by Pulse oximetry 97 % 97 % [facility] ([facility]) Body temperature 98.3 [degF] 98.3 [degF] [facility] ([facility]) Respiratory rate 14 /min 14 /min [facility] ( [facility]) Heart rate 103 /min 103 /min [facility] ([facility]) Body mass index (BMI) [Ratio] 29.8 kg/m2 29.8 k g/m2 [facility] ([facility]) Body weight 150.38 [lb_av] 150.38 [lb_av] [facility] T ([facility]) Body height 59.6 [in_i] 59.6 [in_i] [facility] ([facility]) " Diastolic blood pressure 74 mm[Hg] 74 mm[Hg] [facility] ([facility]) Systolic blood pressure 140 mm[Hg] 140 mm[Hg] [facility] ([facility]) Heart rate 96 /min 96 /min [facility] ([facility]) Body mass index (BMI) [Ratio] 30.3 kg/m2 30.3 k g/m2 [facility] ([facility]) Body weight 153.00 [lb_av] 153.00 [lb_av] [facility] T ([facility]) Body height 59.6 [in_i] 59.6 [in_i] [facility] ([facility]) " Diastolic blood pressure 68 mm[Hg] 68 mm[Hg] [facility] ([facility]) Systolic blood pressure 144 mm[Hg] 144 mm[Hg] [facility] ([facility]) [place] body weight 100 [lb_av] 100 [lb_av] [facility] T ([facility]) Oxygen saturation in Arterial blood by Pulse oximetry 99 % 99 % [facility] ([facility]) Body temperature 98.3 [degF] 98.3 [degF] [facility] ([facility]) Respiratory rate 18 /min 18 /min [facility] ( [facility]) [place] body weight 100 [lb_av] 100 [lb_av] [facility] T ([facility]) Oxygen saturation in Arterial blood by Pulse oximetry 97 % 97 % [facility] ([facility]) Body temperature 98.3 [degF] 98.3 [degF] [facility]) Respiratory rate 18 /min 18 /min [facility] ( [facility]) Heart rate 88 /min 88 /min [facility] ([facility]) Body height 59.6 [in_i] 59.6 [in_i] [facility]) " Diastolic blood pressure 72 mm[Hg] 72 mm[Hg] [facility] ([facility]) Systolic blood pressure 124 mm[Hg] 124 mm[Hg] [facility] ([facility]) [place] body weight 100 [lb_av] 100 [lb_av] [facility] T ([facility]) Oxygen saturation in Arterial blood by Pulse oximetry 96 % 96 % [facility] ([facility]) Body temperature 97.6 [degF] 97.6 [degF] [facility] ([facility]) Respiratory rate 16 /min 16 /min [facility] Heart rate 89 /min 89 /min [facility] Body mass index (BMI) [Ratio] 29.8 kg/m2 29.8 k g/m2 [facility] ([facility]) Body weight 150.50 [lb_av] 150.50 [lb_av] [facility] T ([facility]) Body height 59.6 [in_i] 59.6 [in_i] [facility] ([facility]) 460" Diastolic blood pressure 80 mm[Hg] 80 mm[Hg] [facility] ([facility]) Systolic blood pressure 128 mm[Hg] 128 mm[Hg] [facility] ([facility]) [place] body weight 100 [lb_av] 100 [lb_av] [facility] T ([facility]) Oxygen saturation in Arterial blood by Pulse oximetry 96 % 96 % [facility] ([facility]) Body temperature 98.2 [degF] 98.2 [degF] [facility] ([facility]) Respiratory rate 16 /min 16 /min [facility]) Heart rate 79 /min 79 /min [facility] ([facility]) Body height 59.6 [in_i] 59.6 [in_i] [facility] ([facility]) 4'11.60" Diastolic blood pressure 74 mm[Hg] 74 mm[Hg] [facility] ([facility]) Systolic blood pressure 134 mm[Hg] 134 mm[Hg] [facility]) [place] body weight 100 [lb_av] 100 [lb_av] [facility] T ([facility]) Oxygen saturation in Arterial blood by Pulse oximetry 98 % 98 % [facility] ([facility]) Body temperature 98.4 [degF] 98.4 [degF] [facility] ([facility]) Respiratory rate 16 /min 16 /min [facility] ( [facility]) Heart rate 77 /min 77 /min [facility] ([facility]) Body mass index (BMI) [Ratio] 28.9 kg/m2 28.9 k g/m2 [facility] ([facility]) Body weight 146.00 [lb_av] 146.00 [lb_av] [facility] T ([facility]) Body height 59.6 [in_i] 59.6 [in_i] [facility] ([facility]) 4'11.60" Diastolic blood pressure 70 mm[Hg] 70 mm[Hg] [facility] ([facility]) Systolic blood pressure 125 mm[Hg] 125 mm[Hg] [facility] ([facility]) Oxygen saturation in Arterial blood by Pulse oximetry 97 % 97 % [facility] ([facility]) Body temperature 99.0 [degF] 99.0 [degF] [facility] ([facility]) Respiratory rate 20 /min 20 /min [facility] ( [facility]) Heart rate 90 /min 90 /min [facility] ([facility]) Body height 59.6 [in_i] 59.6 [in_i] [facility] ([facility]) 4'11.60" Diastolic blood pressure 80 mm[Hg] 80 mm[Hg] [facility] ([facility]) Systolic blood pressure 140 mm[Hg] 140 mm[Hg] M [facility] ([facility]) Body mass index (BMI) [Ratio] 28.9 kg/m2 28.9 k g/m2 [facility] ([facility]) Body weight 146.00 [lb_av] 146.00 [lb_av] [facility] T ([facility]) Body mass index (BMI) [Ratio] 26.4 kg/m2 26.4 k g/m2 [facility] ([facility] [place], [facility]) Body height 61 [in_i] 61 [in_i] [facility] ([facility] [place], [facility]) 5'1" Body weight 140.00 [lb_av] 140.00 [lb_av] MEDEN T ([facility], [facility]) Body temperature 98.1 [degF] 98.1 [degF] [facility] ([facility]) Oxygen saturation in Arterial blood by Pulse oximetry 97 % 97 % [facility] ([facility], [facility]) Respiratory rate 16 /min 16 /min [facility] ( [facility], [facility]) Heart rate 74 /min 74 /min [facility] ([facility] [place], [facility]) Diastolic blood pressure 82 mm[Hg] 82 mm[Hg] [facility] ([facility], [facility]) Systolic blood pressure 144 mm[Hg] 144 mm[Hg] [facility]) Oxygen saturation in Arterial blood by Pulse oximetry 97 % 97 % [facility] ([facility]) Body temperature 99.1 [degF] 99.1 [degF] [facility]) Respiratory rate 18 /min 18 /min [facility] ( [facility]) Heart rate 76 /min 76 /min [facility]) Body mass index (BMI) [Ratio] 28.9 kg/m2 28.9 k g/m2 [facility] ([facility]) Body weight 146.00 [lb_av] 146.00 [lb_av] [facility] T ([facility]) Body height 59.6 [in_i] 59.6 [in_i] [facility] ([facility]) 4'11.60" Diastolic blood pressure 80 mm[Hg] 80 mm[Hg] [facility] ([facility]) Systolic blood pressure 132 mm[Hg] 132 mm[Hg] [facility] Body weight 67.133 kg 67.133 kg [facility], ) Body mass index (BMI) [Ratio] 27.1 kg/m2 27.1 k g/m2 [facility] ([facility], ) Body weight 148.00 [lb_av] 148.00 [lb_av] MED[facility] T ([facility], ) Body height 62 [in_i] 62 [in_i] [facility] 5'2" Diastolic blood pressure 64 mm[Hg] 64 mm[Hg] [facility] ([facility], ) Systolic blood pressure 122 mm[Hg] 122 mm[Hg] M EDENT ([facility], ) Body temperature 97.2 [degF] 97.2 [degF] eCW1 ( [facility]) Body mass index (BMI) [Ratio] 27.88 kg/m2 27.88 kg/m2 eCW1 ([facility]) Body height 61.5 [in_us] 61.5 [in_us] eCW1 ([facility]) Body weight Measured 150 [lb_av] 150 [lb_av] eC W1 ([facility]) Heart rate 80 /min 80 /min [facility] Oxygen saturation in Arterial blood by Pulse oximetry 99 % 99 % [facility] ([facility]) Body temperature 98.6 [degF] 98.6 [degF] [facility] ([facility]) Respiratory rate 20 /min 20 /min [facility] ( [facility]) Heart rate 76 /min 76 /min [facility] ([facility]) Body mass index (BMI) [Ratio] 28.0 kg/m2 28.0 k g/m2 [facility] ([facility]) Body weight 141.38 [lb_av] 141.38 [lb_av] [facility] T ([facility]) Body height 59.6 [in_i] 59.6 [in_i] [facility] ([facility]) 4'11.60" Diastolic blood pressure 82 mm[Hg] 82 mm[Hg] [facility] ([facility]) Systolic blood pressure 136 mm[Hg] 136 mm[Hg] M [facility]ENT ([facility]) Diastolic blood pressure 72 mm[Hg] 72 mm[Hg] eCW1 ([facility]) Systolic blood pressure 122 mm[Hg] 122 mm[Hg] e CW1 ([facility]) Body mass index (BMI) [Ratio] 26.43 kg/m2 26.43 kg/m2 eCW1 ([facility]) Body height 61.5 [in_us] 61.5 [in_us] eCW1 ([facility]) Body weight Measured 142.2 [lb_av] 142.2 [lb_av ] eCW1 ([facility]) Oxygen saturation in Arterial blood by Pulse oximetry 99 % 99 % MEDENT ([facility]) Body temperature 97.7 [degF] 97.7 [degF] MEDENT ([facility]) Respiratory rate 18 /min 18 /min MEDENT ( [facility]) Heart rate 80 /min 80 /min MEDENT ([facility]) Body mass index (BMI) [Ratio] 27.4 kg/m2 27.4 k g/m2 MEDENT ([facility]) Body weight 138.50 [lb_av] 138.50 [lb_av] MEDEN T ([facility]) Body height 59.6 [in_i] 59.6 [in_i] MEDENT ([facility]) 4'11.60" Diastolic blood pressure 78 mm[Hg] 78 mm[Hg] MEDENT ([facility]) Systolic blood pressure 130 mm[Hg] 130 mm[Hg] M EDENT ([facility]) Diastolic blood pressure 76 mm[Hg] 76 mm[Hg] eCW1 ([facility]) Systolic blood pressure 124 mm[Hg] 124 mm[Hg] e CW1 ([facility]) Body mass index (BMI) [Ratio] 25.84 kg/m2 25.84 kg/m2 eCW1 ([facility]) Body height 61.5 [in_us] 61.5 [in_us] eCW1 ([facility]) Body weight Measured 139 [lb_av] 139 [lb_av] eC W1 ([facility]) Oxygen saturation in Arterial blood by Pulse oximetry 99 % 99 % MEDENT ([facility]) Body temperature 98.0 [degF] 98.0 [degF] MEDENT ([facility]) Respiratory rate 20 /min 20 /min MEDENT ( [facility]) Heart rate 95 /min 95 /min MEDENT ([facility]) Body mass index (BMI) [Ratio] 29.0 kg/m2 29.0 k g/m2 MEDENT ([facility]) Body weight 146.38 [lb_av] 146.38 [lb_av] MEDEN T ([facility]) Body height 59.6 [in_i] 59.6 [in_i] MEDENT ([facility]) 4'11.60" Diastolic blood pressure 68 mm[Hg] 68 mm[Hg] MEDENT ([facility]) Systolic blood pressure 128 mm[Hg] 128 mm[Hg] M EDENT ([facility]) Diastolic blood pressure 71 mm[Hg] 71 mm[Hg] eCW1 ([facility]) Systolic blood pressure 131 mm[Hg] 131 mm[Hg] e CW1 ([facility]) Body temperature 99.6 [degF] 99.6 [degF] eCW1 ( [facility]) Respiratory rate 18 /min 18 /min eCW1 (Count includes the [facility]) Heart rate 99 /min 99 /min eCW1 ([facility]) Body mass index (BMI) [Ratio] 27.51 kg/m2 27.51 kg/m2 [facility] ([facility]) Body height 61.5 [in_us] 61.5 [in_us] eCW1 ([facility]) Body weight Measured 148.0 [lb_av] 148.0 [lb_av ] eCW1 ([facility]) Diastolic blood pressure 66 mm[Hg] 66 mm[Hg] eCW1 ([facility]) Systolic blood pressure 135 mm[Hg] 135 mm[Hg] e CW1 ([facility]) Body temperature 97.2 [degF] 97.2 [degF] eCW1 ( [facility]) Respiratory rate 18 /min 18 /min eCW1 (Count includes the [facility]) Heart rate 100 /min 100 /min eCW1 ([facility]) Body mass index (BMI) [Ratio] 26.77 kg/m2 26.77 kg/m2 eCW1 ([facility]) Body height 61.5 [in_us] 61.5 [in_us] eCW1 ([facility]) Body weight Measured 144.0 [lb_av] 144.0 [lb_av ] eCW1 ([facility]) Patient Treatment Plan of Care Planned Activity Planned Date Details Description Data Source (s) Clindamycin 300 MG Oral Capsule 08/14/2019 12:00:00 AM EDT eCW1 ([facility]) Clindamycin HCl 300 MG 06/09/2019 12:00:00 AM EST eCW1 ([facility]) Fluticasone Propionate 0.005 % 06/08/2019 12:00:00 AM EST eCW1 ([facility]) Doxycycline Hyclate 100 MG 06/08/2019 12:00:00 AM EST eCW1 ([facility])
== END 2020-07-11 09:00 | disposition home or self-care (01) ==
LOC: M ED 06:42
DX: S00.03XA Contusion of scalp, initial encounter (principal); S51.011A Laceration without foreign body of right elbow, initial encounter; W01.198A Fall on same level from slipping, tripping and stumbling with subsequent striking against other object, initial encounter; Y92.002 Bathroom of unspecified non-institutional (private) residence as the place of occurrence of the external cause; Y93.9 Activity, unspecified; Y99.9 Unspecified external cause status; Z88.2 Allergy status to sulfonamides; Z88.8 Allergy status to other drugs, medicaments and biological substances; Z91.030 Bee allergy status; Z79.82 Long term (current) use of aspirin; Z79.899 Other long term (current) drug therapy

== ENCOUNTER → 2020-09-30 | Outpatient (CLI) | payer MEDICARE, OTHER ==
[2020-09-30 17:12] LABS: LITHIUM LEVEL 0.64 MEQ/L (0.60-1.20); MAGNESIUM LEVEL 2.9 MG/DL (1.8-2.4)
== END ==
LOC: M LAB 15:40
PROVIDERS: ATTEND Physician Assistant
DX: E83.42 Hypomagnesemia (principal)

== ENCOUNTER → 2020-11-15 | Outpatient (CLI) | payer MEDICARE, OTHER ==
[~2020-11-15] MED LIST changes: +ERGO500029 PO; -VITA50005 PO
--- NOTE | 2020-11-15 18:21 | REP ---
INDICATION: CONTUSION OF RIGHT FRONT WALL OF THORAX, INITIAL ENCOUNTER COMPARISON: None. TECHNIQUE: Frontal view of the chest with multiple views of the right hemithorax. Five total views. FINDINGS: Frontal view of the chest demonstrates no acute cardiopulmonary process, contusion, effusion, or pneumothorax. Multiple views of the right hemithorax demonstrates no acute rib fracture/injury or pathology. IMPRESSION: No obvious acute or displaced right rib fracture identified. <Electronically signed by Han Rodriguez > 11/15/20 [id number]
== END ==
LOC: M RAD 16:58
PROVIDERS: ATTEND Physician Assistant
DX: S20.211A Contusion of right front wall of thorax, initial encounter (principal); X58.XXXA Exposure to other specified factors, initial encounter; Y92.89 Other specified places as the place of occurrence of the external cause; Y93.9 Activity, unspecified; Y99.9 Unspecified external cause status

== ENCOUNTER → 2020-11-20 | Outpatient (CLI) | payer MEDICARE, OTHER | LOC: M LAB 15:31 | PROVIDERS: ATTEND Nurse Practitioner Psychiatric/Mental Health | DX: Z79.899 Other long term (current) drug therapy (principal) ==

== ENCOUNTER → 2021-01-01 | Outpatient (CLI) | payer MEDICARE, OTHER ==
[2021-01-01 10:53] LABS: BASO # 0.1 10^3/uL (0.0-0.2); BASO % 1.1 % (0.0-1.0); EOS # 0.4 10^3/uL (0.0-0.5); EOS % 4.3 % (0.0-3.0); HEMOGLOBIN 11.7 g/dl (12.0-15.5); LYMPH # 2.6 10^3/uL (1.5-5.0); MEAN CORPUSCULAR HEMOGLOBIN 30.7 pg (27.0-33.0); MEAN CORPUSCULAR HGB CONC 30.8 g/dl (32.0-36.5); MEAN CORPUSCULAR VOLUME 99.7 fl (80.0-96.0); MONO # 0.8 10^3/uL (0.0-0.8); MONO % 9.4 % (2.0-8.0); NEUTROPHILS # 4.6 10^3/uL (1.5-8.5); NEUTROPHILS % 53.8 % (36.0-66.0); PLATELET COUNT, AUTOMATED 344 10^3/uL (150-450); RED BLOOD COUNT 3.81 10^6/uL (4.00-5.40); WHITE BLOOD COUNT 8.4 10^3/uL (4.0-10.0)
[2021-01-01 11:36] LABS: ALBUMIN 3.6 GM/DL (3.2-5.2); BILIRUBIN,TOTAL 0.3 MG/DL (0.2-1.0); CALCIUM LEVEL 9.1 MG/DL (8.8-10.2); CREATININE FOR GFR 1.14 MG/DL (0.55-1.30); FREE T4 0.75 NG/DL (0.76-1.46); GLOMERULAR FILTRATION RATE 48.9 (>39); PERCENT SATURATION 19.8 % (13.2-45.0); POTASSIUM SERUM 4.8 MEQ/L (3.5-5.1); THYROID STIMULATING HORMONE 2.28 uIU/ML (0.358-3.740); TOTAL PROTEIN 6.7 GM/DL (6.4-8.2)
[2021-01-01 12:02] LABS: TOTAL 25(OH) VITAMIN D 61.3 NG/ML (30.0-100.0)
== END ==
LOC: M LAB 10:09
PROVIDERS: ATTEND Family Medicine
DX: D64.9 Anemia, unspecified (principal); Z79.899 Other long term (current) drug therapy

== ENCOUNTER 2021-01-26 17:23 | Inpatient (IN) | payer MEDICARE, OTHER ==
[~2021-01-26] VITALS: Ht 154.9 cm; Wt 69.0 kg
[2021-01-26 18:05] LABS: VENOUS BASE EXCESS -0.7 (-2.0-2.0); VENOUS HCO3 25.3 MEQ/L (23.0-27.0); VENOUS O2 SATURATION 86.5 % (60.0-80.0); VENOUS PARTIAL PRESSURE CO2 46.8 mmHg (38.0-50.0); VENOUS STANDARD HCO3 23.7 MEQ/L; VENOUS TOTAL CO2 26.7 MEQ/L (24.0-28.0)
[2021-01-26 18:10] LABS: HEMATOCRIT 36.6 % (36.0-47.0); HEMOGLOBIN 11.7 g/dl (12.0-15.5); MEAN CORPUSCULAR HEMOGLOBIN 31.4 pg (27.0-33.0); MEAN CORPUSCULAR VOLUME 98.1 fl (80.0-96.0); PLATELET COUNT, AUTOMATED 315 10^3/uL (150-450); RED BLOOD COUNT 3.73 10^6/uL (4.00-5.40)
--- NOTE | 2021-01-26 18:15 | REPVR ---
PROCEDURE INFORMATION: Exam: CT Head Without Contrast Exam date and time: 01/26/2021 5:44 PM Age: 80 years old Clinical indication: Altered mental status/memory loss TECHNIQUE: Imaging protocol: Computed tomography of the head without contrast. Radiation optimization: All CT scans at this facility use at least one of these dose optimization techniques: automated exposure control; mA and/or kV adjustment per patient size (includes targeted exams where dose is matched to clinical indication); or iterative reconstruction. COMPARISON: CT Head without contrast 07/11/2020 7:19 AM FINDINGS: Brain: Nonspecific hypodensities of the periventricular and deep subcortical white matter, most likely secondary to chronic small vessel ischemic change. No intracranial hemorrhage or extra-axial fluid collection. No evidence of mass effect or midline shift. Espinal-white matter differentiation is normal. Cerebral ventricles: Prominence of the ventricles and sulci, most likely attributed to parenchymal volume loss. Paranasal sinuses: Visualized sinuses are unremarkable. No fluid levels. Mastoid air cells: Unremarkable. Bones/joints: No acute osseus lesion or fracture. Soft tissues: Unremarkable. IMPRESSION: 1. No acute intracranial pathology. 2. Chronic findings, as above. Electronically signed by: Travis Allison On 01/26/2021 18:14:54 PM
[2021-01-26 18:18] LABS: WHITE BLOOD COUNT 19.8 10^3/uL (4.0-10.0)
[2021-01-26 18:30] LABS: OSMOLALITY SERUM 296 MOSM/KG (280-301)
[2021-01-26 18:40] LABS: ALBUMIN 3.3 GM/DL (3.2-5.2); ALT/SGPT 26 U/L (12-78); BILIRUBIN,DIRECT 0.1 MG/DL (0.0-0.2); BILIRUBIN,TOTAL 0.6 MG/DL (0.2-1.0); BLOOD UREA NITROGEN 20 MG/DL (7-18); CALCIUM LEVEL 8.8 MG/DL (8.8-10.2); CARBON DIOXIDE LEVEL 25 MEQ/L (21-32); CHLORIDE LEVEL 112 MEQ/L (98-107); CK-MB VALUE MASS 1.7 NG/ML (<3.6); CPK CREATINE PHOSPHOKINASE 97 U/L (26-192); CREATININE FOR GFR 1.45 MG/DL (0.55-1.30); GLOMERULAR FILTRATION RATE 37.1 (>39); GLUCOSE, FASTING 119 MG/DL (70-100); MB/CK RELATIVE INDEX 1.75 (< OR =4); POTASSIUM SERUM 3.8 MEQ/L (3.5-5.1); SODIUM LEVEL 143 MEQ/L (136-145); TROPONIN I < 0.02 NG/ML (< 0.10)
--- NOTE | 2021-01-26 18:41 | REP ---
INDICATION: Altered Mental Status. COMPARISON: PA chest, 11/15/2020. TECHNIQUE: Upright AP portable chest image was obtained. FINDINGS: The lungs are clear. There is cardiomegaly without congestive heart failure. There is a loop recorder over the left chest wall. The upper abdominal bowel gas pattern is normal. There is a healed fracture with deformity of the surgical neck of the left humerus. IMPRESSION: Cardiomegaly. No evidence of acute cardiopulmonary pathology. <Electronically signed by Puneet Joya > 01/26/21 [id number]
[2021-01-26 18:45] LABS: LYMPHOCYTES 6 % (16-44); MONOCYTES 7 % (0-5); NEUTROPHILS 85 % (28-66)
[2021-01-26 18:47] LABS: PLATELET CLUMPS SMALL AMT
[2021-01-26 18:48] LABS: PLATELET ESTIMATE NORMAL (NORMAL)
--- NOTE | 2021-01-26 20:54 | REPVR ---
PROCEDURE INFORMATION: Exam: CT Abdomen And Pelvis Without Contrast Exam date and time: 01/26/2021 8:38 PM Age: 80 years old Clinical indication: Abdominal pain; Additional info: Kidney stone TECHNIQUE: Imaging protocol: Computed tomography of the abdomen and pelvis without contrast. Radiation optimization: All CT scans at this facility use at least one of these dose optimization techniques: automated exposure control; mA and/or kV adjustment per patient size (includes targeted exams where dose is matched to clinical indication); or iterative reconstruction. COMPARISON: US PELVIC NON-OB COMPLETE 04/19/2018 12:56 PM FINDINGS: Liver: Unremarkable. Gallbladder and bile ducts: Cholelithiasis without evidence of cholecystitis. Pancreas: Unremarkable. No ductal dilation. Spleen: Unremarkable. Adrenal glands: Normal. No mass. Kidneys and ureters: No hydronephrosis or stones. Stomach and bowel: Severe diffuse wall thickening involving the cecum with adjacent fat stranding. Mild scattered colonic diverticulosis without evidence of acute diverticulitis. Small bowel loops are unremarkable. Appendix: Normal gas-filled appendix. Intraperitoneal space: No pneumoperitoneum. No significant fluid collection. Vasculature: Unremarkable. Lymph nodes: No enlarged lymph nodes. Urinary bladder: Unremarkable as visualized. Reproductive: Unremarkable as visualized. Bones/joints: Multilevel degenerative changes of the visualized spine. No acute osseous lesion or fracture. Soft tissues: Unremarkable. IMPRESSION: 1. Acute typhlitis. Recommend GI consultation. 2. Other chronic findings, as above. Electronically signed by: Travis Allison On 01/26/2021 20:53:58 PM
[2021-01-26] MEDS ORDERED: NS 1,000 ML IV SCH (22:05)
[2021-01-26] MEDS ORDERED: ACETAMINOPHEN TAB 650MG DOSE (2X325MG) PO PRN (22:05)
[2021-01-26] MEDS ORDERED: MAALOX 30 ML SUSP *UDC PO PRN (22:05)
[2021-01-26] MEDS ORDERED: MOM 30ML SUSPENSION UDC PO PRN (22:05)
[2021-01-26] MEDS ORDERED: ONDANSETRON 4MG/2ML VIAL IV PRN (22:05)
[2021-01-26] MEDS ORDERED: NS 1,000 ML IV ONE (22:05)
--- NOTE | 2021-01-26 22:24 | HPEPDOC ---
[facility] Medical History & Physical Date of Admission Jan 26, 2021 Date of Service: Jan 26, 2021 Attending Physician: ANA CARTER DO History and Physical CHIEF COMPLAINT: [80 y/o female presents to our ED after a fall] HISTORY OF PRESENT ILLNESS: [This is a 80 y/o female with a pmh of breast ca s/p lumpectomy, hypothyroidism, htn and bipolar d/o who presents to our ED with after suffering a fall today. Patient states that she was trying to get down her front two steps and happened to trip fall. Patient denies pre fall dizziness, syncope, post fall grogginess. Patient does not believe that she hit her head. Patient states that she has been having acute onset weakness lasting about 3-4 days. Patient states that it has been difficult for her to get around her house d/t this and believes this is why she fell down her steps today. Patient states that she has also been experiencing some on and off right sided abdominal pain but did not think much of it until now. Patient states that she has had a good appetite and, at the time of my exam, denies any fevers, chills, chest pain, dizziness, n/v/d/c, pedal edema, dark stools, cough, sob. ] PAST MEDICAL HISTORY: 1. [See HPI PAST SURGICAL HISTORY: 1. [Left breast lumpectomy]. 2. [Partial hysterectomy 3. Implanted loop recorder]. SOCIAL HISTORY: Resides in: [Lives alone, ambulates with a cane] Tobacco use:[Denies] ETOH: [Denies] Illicit drug use: [Denies] FAMILY HISTORY: Reviewed - none pertinent ALLERGIES: Please see below. REVIEW OF SYSTEMS: CONSTITUTIONAL: [Denies fevers, chills]. HEENT: [Denies uri type sx]. CARDIOVASCULAR: [Denies chest pain, palpitations]. RESPIRATORY: [Denies sob, cough]. GASTROINTESTINAL: [See HPI]. GENITOURINARY: [Denies dysuria]. SKIN: [Denies rash]. MUSCULOSKELETAL: [Denies acute joint pain/back pain]. NEUROLOGICAL: [Denies syncope, paresthesias]. PSYCHIATRIC: [Hx of BPD]. ENDOCRINE: [Denies hx of DM]. HEMATOLOGIC/LYMPHATIC: [Hx of breast ca]. HOME MEDICATIONS: Please see below. PHYSICAL EXAMINATION: VITAL SIGNS: Please see below. GENERAL APPEARANCE: [This is a 80 y/o female who is alert and oriented to all questioning. She does not appear to be in any acute distress.]. HEENT: [No mass or lesion. EOMI. No scleral icterus. Nares patent. Oral mucosa mosit]. CARDIOVASCULAR: [Tachy rate, regular rhythm. No murmurs, rubs, gallops]. LUNGS: [Good air flow b/l. No wheezing, rales, rhonchi.]. ABDOMEN: [Tender to RLQ and RUQ. No rigidity, guarding]. MUSCULOSKELETAL: [No joint deformity noted]. EXTREMITIES: [No pedal edema appreciated. Pulses intact. No overlying skin changes]. NEUROLOGICAL: [Speech clear. A+Ox3. No focal deficits]. PSYCHIATRIC: [Flat affect. Mood appropriate.]. LABORATORY DATA: See below. IMAGING: [CXR: FINDINGS: The lungs are clear. There is cardiomegaly without congestive heart failure. There is a loop recorder over the left chest wall. The upper abdominal bowel gas pattern is normal. There is a healed fracture with deformity of the surgical neck of the left humerus. IMPRESSION: Cardiomegaly. No evidence of acute cardiopulmonary pathology. Head CT: FINDINGS: Brain: Nonspecific hypodensities of the periventricular and deep subcortical white matter, most likely secondary to chronic small vessel ischemic change. No intracranial hemorrhage or extra-axial fluid collection. No evidence of mass effect or midline shift. Espinal-white matter differentiation is normal. Cerebral ventricles: Prominence of the ventricles and sulci, most likely attributed to parenchymal volume loss. Paranasal sinuses: Visualized sinuses are unremarkable. No fluid levels. Mastoid air cells: Unremarkable. Bones/joints: No acute osseus lesion or fracture. Soft tissues: Unremarkable. IMPRESSION: 1. No acute intracranial pathology. 2. Chronic findings, as above. CT Abd/pelvis: FINDINGS: Liver: Unremarkable. Gallbladder and bile ducts: Cholelithiasis without evidence of cholecystitis. Pancreas: Unremarkable. No ductal dilation. Spleen: Unremarkable. Adrenal glands: Normal. No mass. Kidneys and ureters: No hydronephrosis or stones. Stomach and bowel: Severe diffuse wall thickening involving the cecum with adjacent fat stranding. Mild scattered colonic diverticulosis without evidence of acute diverticulitis. Small bowel loops are unremarkable. Appendix: Normal gas-filled appendix. Intraperitoneal space: No pneumoperitoneum. No significant fluid collection. Vasculature: Unremarkable. Lymph nodes: No enlarged lymph nodes. Urinary bladder: Unremarkable as visualized. Reproductive: Unremarkable as visualized. Bones/joints: Multilevel degenerative changes of the visualized spine. No acute osseous lesion or fracture. Soft tissues: Unremarkable. IMPRESSION: 1. Acute typhlitis. Recommend GI consultation. 2. Other chronic findings, as above.] MICROBIOLOGY: Please see below. ASSESSMENT: [This is a 80 y/o female with a pmh of breast ca s/p lumpectomy, hypothyroidism, htn and bipolar d/o who presents to our ED with after suffering a fall today. Patient states that she was trying to get down her front two steps and happened to trip fall. Patient denies pre fall dizziness, syncope, post fall grogginess. Patient does not believe that she hit her head. Patient states that she has been having acute onset weakness lasting about 3-4 days. Patient states that it has been difficult for her to get around her house d/t this and believes this is why she fell down her steps today. Patient states that she has also been experiencing some on and off right sided abdominal pain but did not think much of it until now.]. . PLAN: 1. [Enterocolitis - radiology read suggests typhlitis, however patient is not neutropenic and is not on any chemotherapy, so this is more likely enterocolitis or colitis - Infection likely also the cause of patient's weakness - Patient meets sirs criteria with leukocytosis of 19, tachycardia of 110 - Will begin ivf, iv abx with zosyn - iv ppi for bowel protection - zofran for nausea - clear liquid - gi panel ordered - ED provider consulted general surgery provider, Dr. Rooney, who recommended iv abx and fluids - admit to med surg for tx 2. JAYDON - pt's cr acutely elevated to 1.4 from baseline of 1.1 - likely secondary to decreased oral intake despite patient stating her appetite has been good - no obstruction on ct - urine electrolytes ordered - will give ivf - repeat kidney function in the am 3. Loop recorder - patient tells me that she has implantable loop recorder, but cannot tell me why. chart review seems to state that it is due to recurrent falls - will keep on tele for now 4. HTN - continue amlodipine 5. Hypothyroidism - continue synthroid 6. Bipolar d/o - continue lamictal, lithium, latuda - will check lamictal/lithium levels DVT prophylaxis - lovenox]. Vital Signs Vital Signs Date Time Temp Pulse Resp B/P (MAP) Pulse Ox O2 Delivery O2 Flow Rate FiO2 01/26/21 19:53 110 20 01/26/21 19:45 172/78 (109) 01/26/21 19:38 98 Laboratory Data Labs 24H Laboratory Tests 2 01/26/21 17:53: Neutrophils (%) (Auto) , Nucleated Red Blood Cells % (auto) 0.0, Neutrophils 85H, Band Neutrophils 2, Lymphocytes (Manual) 6L, Monocytes (Manual) 7H, Platelet Estimate NORMAL, Clumped Platelets SMALL AMT, Urine Color STRAW, Urine Appearance CLEAR, Urine pH 7.0, Urine Specific [place] 1.003, Urine Protein 1+H, Urine Glucose (UA) NEGATIVE, Urine Ketones NEGATIVE, Urine Blood 1+H, Urine Nitrite NEGATIVE, Urine Bilirubin NEGATIVE, Urine Urobilinogen 0.2, Urine Leukocyte Esterase 2+H, Urine WBC (Auto) 4H, Urine RBC (Auto) 1, Urine Hyaline Casts (Auto) 0, Urine Bacteria (Auto) 1+H, Urine Squamous Epithelial Cells 0, Urine Sperm (Auto) , Blood Gas Bicarbonate Standard 23.7, Venous Blood pH 7.350, Venous Blood Partial Pressure CO2 46.8, Venous Blood Partial Pressure O2 51.0H, Venous Blood Total Carbon Dioxide 26.7, Venous Blood HCO3 25.3, Venous Blood Oxygen Saturation 86.5H, Venous Blood Base Excess -0.7, Anion Gap 6L, Glomerular Filtration Rate 37.1L, Osmolality 296, Lactic Acid Level 1.6, Calcium Level 8.8, Total Bilirubin 0.6, Direct Bilirubin 0.1, Aspartate Amino Transf (AST/SGOT) 13, Alanine Aminotransferase (ALT/SGPT) 26, Alkaline Phosphatase 85, Ammonia 13, Total Creatine Kinase 97, Creatine Kinase MB 1.7, Creatine Kinase MB Relative Index 1.75, Troponin I < 0.02, Total Protein 7.0, Albumin 3.3, Albumin/Globulin Ratio 0.9L, Thyroid Stimulating Hormone (TSH) 1.400 01/26/21 18:09: Bedside Glucose (Misc Panel) 126H 01/26/21 19:53: Urine Osmolality 197 CBC/BMP Laboratory Tests 01/26/21 17:53 Microbiology Microbiology 01/26/21 Urine Culture, Received Pending Home Medications Scheduled Amlodipine Besylate (Norvasc) 10 Mg Tablet, 10 MG PO DAILY Aspirin (Aspirin EC) 81 Mg Tablet.dr, 81 MG PO DAILY Dextroamphetamine/Amphetamine (Adderall 20 mg Tablet) 20 Mg Tablet, 20 MG PO DAILY Ergocalciferol (Vitamin D2) (Vitamin D2) 50,000 Units Cap, 50,000 UNITS PO QWEEK SATURDAYS Glucosam/Brett-Msm1/C/Ap/Bosw (Osteo Bi-Flex Caplet) 1 Each Tablet, 2 TAB PO DAILY Lamotrigine (Lamotrigine) 150 Mg Tablet, 150 MG PO DAILY Levothyroxine Sodium (Synthroid) 50 Mcg Tablet, 50 MCG PO DAILY Odem Carbonate (Odem Carbonate) 150 Mg Capsule, 150 MG PO DAILY Odem Carbonate (Odem Carbonate) 300 Mg Capsule, 300 MG PO QHS Lurasidone Hydrochloride (Latuda) 40 Mg Tablet, 40 MG PO QPM TAKES AT DINNERTIME Magnesium Oxide (Magnesium Oxide) 400 Mg Tablet, 400 MG PO Q2D EVERY OTHER NIGHT Melatonin (Melatonin) 5 Mg Tablet, 5 MG PO QHS Vitamin B Complex (Vitamin B Complex) 1 Each Tablet, 1 TAB PO Q2D Scheduled PRN Docusate Sodium (Docusate Sodium) 100 Mg Capsule, 100 MG PO DAILY PRN for CONSTIPATION Allergies Coded Allergies: beeswax (Verified Allergy, Severe, anaphylaxis, 12/19/18) dextroamphetamine (Verified Allergy, Mild, Itching/rash, 05/02/20) Sulfa (Sulfonamide Antibiotics) (Verified Allergy, Unknown, 10/27/18) A-FIB/CHADSVASC A-FIB History Current/History of A-Fib/PAF?: No MALCOM ACHARYA Jan 26, 2021 22:24
[2021-01-26 22:25] LABS: CREATININE,RANDOM URINE 26.2 MG/DL
[2021-01-26] MEDS: PIPERACILLIN/TAZOBACTAM SOD 3.375 GM in D5W MINI-BAG PLUS 50 ML IV SCH (22:50)
[2021-01-26 22:59] LABS: INR 1.13; PROTHROMBIN TIME 14.9 SECONDS (12.7-14.5)
[2021-01-26 23:00] LABS: PARTIAL THROMBOPLASTIN TIME 36.9 SECONDS (25.9-37.0)
[2021-01-26 23:48] LABS: RSV AMPLIFICATION NEGATIVE (NEGATIVE)
[2021-01-27] MEDS ORDERED: LAMO150T3 PO (00:29)
[2021-01-27] MEDS ORDERED: MAGN400T2 PO (00:29)
[2021-01-27] MEDS ORDERED: SYNT50TA PO (00:29)
[2021-01-27] MEDS ORDERED: LATU40TA PO (00:29)
[2021-01-27] MEDS ORDERED: MELA1TAB9 PO (00:29)
[2021-01-27] MEDS ORDERED: ADDE20TA PO (00:29)
[2021-01-27] MEDS ORDERED: VITATAB73 PO (00:29)
[2021-01-27] MEDS ORDERED: LITH150C PO (00:29)
[2021-01-27] MEDS ORDERED: ASPI-161 PO (00:29)
[2021-01-27] MEDS ORDERED: AMLO10TA PO (00:29)
[2021-01-27] MEDS ORDERED: LITH300C PO (00:29)
[2021-01-27] MEDS ORDERED: DOCU100C16 PO (00:29)
[2021-01-27] MEDS ORDERED: HOME MED LIST COMPLETE! XX SCH (00:30)
[2021-01-27 00:43] VITALS: BP 143/68
[2021-01-27] MEDS ORDERED: PILL CUTTER 1 EACH XX PRN (01:25)
[2021-01-27] MEDS: RAMELTEON 8 MG TAB (ROZEREM) PO SCH ×2 (01:40→20:22)
[2021-01-27] MEDS: LITHIUM CARBONATE 150 MG CAP PO SCH ×3 (01:54→20:22)
[2021-01-27] MEDS: MAGNESIUM OXIDE 400MG TAB (MAG-OX) PO SCH (01:54)
[2021-01-27] MEDS: LEVOTHYROXINE 50MCG TABLET (0.05MG) PO SCH (05:19)
[2021-01-27] MEDS: PIPERACILLIN/TAZOBACTAM SOD 3.375 GM in D5W MINI-BAG PLUS 50 ML IV SCH ×4 (05:19→22:01)
[2021-01-27 06:00] VITALS: BP 142/66
[2021-01-27 06:38] LABS: HEMATOCRIT 35.8 % (36.0-47.0); HEMOGLOBIN 11.2 g/dl (12.0-15.5); MEAN CORPUSCULAR HEMOGLOBIN 30.8 pg (27.0-33.0); MEAN CORPUSCULAR HGB CONC 31.3 g/dl (32.0-36.5); MEAN CORPUSCULAR VOLUME 98.4 fl (80.0-96.0); PLATELET COUNT, AUTOMATED 314 10^3/uL (150-450); RED BLOOD COUNT 3.64 10^6/uL (4.00-5.40); WHITE BLOOD COUNT 18.7 10^3/uL (4.0-10.0)
[2021-01-27 06:57] LABS: LITHIUM LEVEL 0.65 MEQ/L (0.60-1.20)
[2021-01-27 06:59] LABS: BILIRUBIN,TOTAL 0.9 MG/DL (0.2-1.0); CALCIUM LEVEL 8.4 MG/DL (8.8-10.2); CREATININE FOR GFR 1.07 MG/DL (0.55-1.30); GLOMERULAR FILTRATION RATE 52.7 (>39); MAGNESIUM LEVEL 2.6 MG/DL (1.8-2.4); POTASSIUM SERUM 3.6 MEQ/L (3.5-5.1); TOTAL PROTEIN 6.3 GM/DL (6.4-8.2)
[2021-01-27] MEDS ORDERED: FLUBLOK(EGG FREE)(QUAD)INFLUENZA VACC 0.5ML SYRINGE 18YRS & OLDER IM ONE (09:00)
[2021-01-27] MEDS: ASPIRIN 81MG ENTERIC TABLET PO SCH (09:10)
[2021-01-27] MEDS: PANTOPRAZOLE 40MG VIAL (C9113 PER 1) IV SCH (09:10)
[2021-01-27] MEDS: ENOXAPARIN 30MG/0.3ML SYRINGE (J1650 PER 10MG) SC SCH (09:10)
[2021-01-27] MEDS: ADDERALL 5 MG TAB PO SCH (09:10)
[2021-01-27] MEDS: DOCUSATE SODIUM 100MG CAPSULE PO SCH ×2 (09:10→20:23)
[2021-01-27] MEDS: lamoTRIgine 100MG TAB PO SCH (09:11)
[2021-01-27 12:18] LABS: TOTAL 25(OH) VITAMIN D 57.7 NG/ML (30.0-100.0)
[2021-01-27] MEDS: NS 0.45% 1,000 ML IV SCH (12:44)
[2021-01-27 14:00] VITALS: BP 135/63
--- NOTE | 2021-01-27 15:52 | IPNPDOC ---
Date Seen The patient was seen on 01/27/21. Progress Note SUBJECTIVE: Patient is a 80-year-old female with a PMHx of breast cancer s/p lumpectomy (01/26/2021), hypothyroidism, Hypertension, bipolar disorder presents to ED for mechanical fall. Pt states that last night she was trying to get down her front porch steps and she fell. She tried to catch herself with her arms but as she felt too weak to support herself. She did not lose conscious or hit her head before or during the fall. Also denies any dizziness, lightheadedness, or chest pain prior to fall, during or after. She said that she has a lifeline machine around her neck but forgot; attempted to crawl but up the stairs to call EMS but her neighbor came by and called EMS. She also noticed Right sided abdominal pain/discomfort that started around 3-4 days ago. She is able to eat and has a good appetite and that the pain is more of a discomfort. Denies any changes in her diet, "eating weird/different foods". Nothing makes is worse and that today, she really does not notice the abdominal discomfort. She was asking if she could have some "actual food". She dud note passing gas yesterday but has not had a bowel movement and said that it is because she isn't getting "actual food". Denies any bloody stools or tarry stools. Denies fever, chills, dysuria, urinary frequency or urgency, bloody stools, tarry stools, n/v/d, SOB, CP, palpitations, dizziness, lightheadness, loss of consciousness. OBJECTIVE PHYSICAL EXAMINATION: VITAL SIGNS: Please see below. GENERAL: in no acute distress; sipping on her cranberry juice HEENT: no lesions/bumps or evidence of trauma on her head; normocephalic atraumatic head; moist mucous membranes CARDIOVASCULAR: regular rate and rhythm; no murmurs noted RESPIRATORY: clear to auscultation bilaterally; no wheezing, rales or rhonchi noted ABDOMINAL: normoactive bowel sounds; soft, nondistended; mild tenderness to palpation in RUQ; negative Armstrong's sign EXTREMITIES: muscle strength 4/5 Right arm; Left arm was in a sling and she s tates that she has a broken humerus muscle strength 4/45 bilateral lower extremities; sensation intact b/l upper and lower extremities LABORATORY DATA, IMAGING STUDIES, MICROBIOLOGY: Please see below. CXR 01/26: "Cardiomegaly. No evidence of acute cardiopulmonary pathology." CT head w/out Contrast 01/26: "1. No acute intracranial pathology. 2. Chronic findings, as above." CT Abdomen/Pelvis w/out Contrast 01/26: "1. Acute typhlitis. Recommend GI consultation. 2. Other chronic findings, as above." DVT prophylaxis ordered?: Yes; Lovenox 30mg SC ASSESSMENT AND PLAN: This is a 80-year-old female with a PMHx of breast cancer s/p lumpectomy (01/26/2021), hypothyroidism, Hypertension, bipolar disorder presents to ED for mechanical fall. PROBLEMS: # Mechanical fall - denies any dizziness, lightheadedness, or chest pain prior to fall, during or after\\ - denies loss of consciousness - Head CT: negative for acute pathology - c/w fall precautions #Generalized weakness - will check vitamin D levels - will check a peripheral smear - muscle strength 4/5 in all extremities except left arm as pt has previous humerus fx - PT and OT evaluation pending #Abdominal discomfort - CT abd/pelvis w/out contrast showed possible typhlitis - on admission pt meets SIRS criteria with leukocytosis of 19, tachycardia of 110 - will evaluate if pt has CMV as it is a common cause of typhlitis - c/w clear liquid diet to give bowels rest - c/w IV pantoprazole for gastric lining protection - IV zosyn to cover for any possible infectious etiology #Asymptomatic bacteruria - on admission pt meets SIRS criteria with leukocytosis of 19, tachycardia of 110 - pt denies any urinary symptoms like dysuria, frequency or urgency - UA: +leukoesterase, +4WBC - IV zosyn to cover for any possible infectious etiology #DVT prophylaxis - Lovenox 30mg SC DISPOSITION: pending PT/OT eval, labs and clinical improvement VS, I&O, 24H, Fishbone Vital Signs/I&O Vital Signs Date Time Temp Pulse Resp B/P (MAP) Pulse Ox O2 Delivery O2 Flow Rate FiO2 01/27/21 14:00 98.9 87 18 135/63 (87) 98 Room Air I&O- Last 24 Hours up to 6 AM 01/27/21 06:00 Intake Total 2060 ml Output Total 400 ml Balance 1660 ml Laboratory Data 24H LABS Laboratory Tests 2 01/26/21 17:53: Neutrophils (%) (Auto) , Nucleated Red Blood Cells % (auto) 0.0, Neutrophils 85H, Band Neutrophils 2, Lymphocytes (Manual) 6L, Monocytes (Manual) 7H, Platelet Estimate NORMAL, Clumped Platelets SMALL AMT, Urine Color STRAW, Urine Appearance CLEAR, Urine pH 7.0, Urine Specific Inlet 1.003, Urine Protein 1+H, Urine Glucose (UA) NEGATIVE, Urine Ketones NEGATIVE, Urine Blood 1+H, Urine Nitrite NEGATIVE, Urine Bilirubin NEGATIVE, Urine Urobilinogen 0.2, Urine Leukocyte Esterase 2+H, Urine WBC (Auto) 4H, Urine RBC (Auto) 1, Urine Hyaline Casts (Auto) 0, Urine Bacteria (Auto) 1+H, Urine Squamous Epithelial Cells 0, Urine Sperm (Auto) , Blood Gas Bicarbonate Standard 23.7, Venous Blood pH 7.350, Venous Blood Partial Pressure CO2 46.8, Venous Blood Partial Pressure O2 51.0H, Venous Blood Total Carbon Dioxide 26.7, Venous Blood HCO3 25.3, Venous Blood Oxygen Saturation 86.5H, Venous Blood Base Excess -0.7, Anion Gap 6L, Glomerular Filtration Rate 37.1L, Osmolality 296, Lactic Acid Level 1.6, Calcium Level 8.8, Total Bilirubin 0.6, Direct Bilirubin 0.1, Aspartate Amino Transf (AST/SGOT) 13, Alanine Aminotransferase (ALT/SGPT) 26, Alkaline Phosphatase 85, Ammonia 13, T otal Creatine Kinase 97, Creatine Kinase MB 1.7, Creatine Kinase MB Relative Index 1.75, Troponin I < 0.02, Total Protein 7.0, Albumin 3.3, Albumin/Globulin Ratio 0.9L, Thyroid Stimulating Hormone (TSH) 1.400 01/26/21 18:09: Bedside Glucose (Misc Panel) 126H 01/26/21 19:53: Urine Osmolality 197, Urine Random Creatinine 26.2, Urine Random Total Protein 28.0H, Urine Random Sodium 38 01/26/21 22:24: Coronavirus (COVID-19)(PCR) NEGATIVE, Influenza Type A (RT-PCR) NEGATIVE, Influenza Type B (RT-PCR) NEGATIVE, Respiratory Syncytial Virus (PCR) NEGATIVE 01/26/21 22:38: Prothrombin Time 14.9H, Prothromb Time International Ratio 1.13, Activated Partial Thromboplast Time 36.9 01/27/21 05:47: Nucleated Red Blood Cells % (auto) 0.0, Differential Slide Review Report, Peripheral Blood Smear Path Consult PERIPHERAL SMEAR, Anion Gap 6L, Glomerular Filtration Rate 52.7, Calcium Level 8.4L, Magnesium Level 2.6H, Total Bilirubin 0.9, Aspartate Amino Transf (AST/SGOT) 15, Alanine Aminotransferase (ALT/SGPT) 23, Alkaline Phosphatase 74, Total Protein 6.3L, Albumin 3.0L, Albumin/Globulin Ratio 0.9L, 25-Hydroxy Vitamin D Total 57.7, [place] Level 0.65 CBC/BMP Laboratory Tests 01/26/21 17:53 01/27/21 05:47 Microbiology Microbiology 01/26/21 Blood Culture, Received Pending 01/26/21 Urine Culture, Received Pending GME ATTESTATION GME ATTESTATION My faculty preceptor for this patient encounter was physically present during the encounter and was fully available. All aspects of the patient interview, examination, medical decision making process, and medical care plan development were reviewed and approved by the faculty preceptor. The faculty preceptor is aware and concurs with the plan as stated in the body of this note and will attest to such by his/her cosignature. Karrie Pratt DO Jan 27, 2021 15:03
[2021-01-27 16:40] LABS: CALCIUM LEVEL 8.8 MG/DL (8.8-10.2); CREATININE FOR GFR 1.03 MG/DL (0.55-1.30)
--- NOTE | 2021-01-27 16:48 | ECGEPIP ---
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
[2021-01-27] MEDS: LURASIDONE HCL 40 MG TAB (LATUDA) PO SCH (17:32)
[2021-01-27] MEDS: MULTIVITAMINS/MINERALS THERAP 1 TAB PO SCH (18:50)
[2021-01-27 22:00] VITALS: BP 133/54
[2021-01-28] MEDS: PIPERACILLIN/TAZOBACTAM SOD 3.375 GM in D5W MINI-BAG PLUS 50 ML IV SCH ×4 (05:35→22:17)
[2021-01-28] MEDS: NS 0.45% 1,000 ML IV SCH (05:35)
[2021-01-28] MEDS: LEVOTHYROXINE 50MCG TABLET (0.05MG) PO SCH (05:35)
[2021-01-28 06:00] VITALS: BP 132/64
[2021-01-28 06:27] LABS: HEMATOCRIT 38.1 % (36.0-47.0); HEMOGLOBIN 11.6 g/dl (12.0-15.5); MEAN CORPUSCULAR HEMOGLOBIN 30.4 pg (27.0-33.0); MEAN CORPUSCULAR HGB CONC 30.4 g/dl (32.0-36.5); PLATELET COUNT, AUTOMATED 325 10^3/uL (150-450); RED BLOOD COUNT 3.81 10^6/uL (4.00-5.40); WHITE BLOOD COUNT 16.8 10^3/uL (4.0-10.0)
[2021-01-28 06:53] LABS: ALBUMIN 2.9 GM/DL (3.2-5.2); BILIRUBIN,TOTAL 0.7 MG/DL (0.2-1.0); CALCIUM LEVEL 8.9 MG/DL (8.8-10.2); CREATININE FOR GFR 0.96 MG/DL (0.55-1.30); GLOMERULAR FILTRATION RATE 59.7 (>39); MAGNESIUM LEVEL 2.9 MG/DL (1.8-2.4); POTASSIUM SERUM 4.1 MEQ/L (3.5-5.1); TOTAL PROTEIN 6.5 GM/DL (6.4-8.2)
[2021-01-28] MEDS: PANTOPRAZOLE 40MG VIAL (C9113 PER 1) IV SCH (08:21)
[2021-01-28] MEDS: MULTIVITAMINS/MINERALS THERAP 1 TAB PO SCH (08:21)
[2021-01-28] MEDS: ENOXAPARIN 30MG/0.3ML SYRINGE (J1650 PER 10MG) SC SCH (08:21)
[2021-01-28] MEDS: lamoTRIgine 100MG TAB PO SCH (08:22)
[2021-01-28] MEDS: ASPIRIN 81MG ENTERIC TABLET PO SCH (08:22)
[2021-01-28] MEDS: LITHIUM CARBONATE 150 MG CAP PO SCH ×2 (08:23→20:09)
[2021-01-28] MEDS: DOCUSATE SODIUM 100MG CAPSULE PO SCH ×2 (08:38→20:10)
[2021-01-28] MEDS: ADDERALL 5 MG TAB PO SCH (08:38)
[2021-01-28] MEDS ORDERED: AUGM875T28 PO (13:01)
[2021-01-28 14:00] VITALS: BP 125/59
--- NOTE | 2021-01-28 16:03 | IPNPDOC ---
Date Seen The patient was seen on 01/28/21. Progress Note SUBJECTIVE: Patient is a 80-year-old female with a PMHx of breast cancer s/p lumpectomy (01/26/2021), hypothyroidism, Hypertension, bipolar disorder presents to ED for mechanical fall. Patient was seen lying comfortably in bed with no acute events overnight as well as no acute complaints. She did say that she was having a lot of bowel movements overnight which may have given her some loose stools especially after the milk of magnesia. She has been eating everything on her full liquids diet and was love to have some "real food". Pt also notes that she is having some chest pain with coughing especially with taking a deep breath in; this has been going on for 1 week and she coughs 2x during the day. She also notes that she does have a history of hemorrhoids; this correlates to the occult blood that was found. Denies fever, chills, SOB, palpations, abdominal pain, dysuria, urinary urgency or frequency. Discussed the possibility to going home with 24 care as well as rehab but patient wants to remain independent and declined both. Her son is currently in [facility] and is unable to take care of her in the event of another fall. OBJECTIVE PHYSICAL EXAMINATION: VITAL SIGNS: Please see below. GENERAL: in no acute distress; lying comfortably in bed HEENT: normocephalic atraumatic head; moist mucous membranes CARDIOVASCULAR: regular rate and rhythm; no murmurs noted RESPIRATORY: clear to auscultation bilaterally; no wheezing, rales or rhonchi noted ABDOMINAL: normoactive bowel sounds; soft, nondistended; non tenderness to palpation EXTREMITIES: muscle strength 4/5 Right arm; Left arm still in sling as hx of broken humerus; muscle strength 4/5 bilateral lower extremities; sensation intact b/l upper and lower extremities NEUROLOGICAL: CN II-XII grossly intact LABORATORY DATA, IMAGING STUDIES, MICROBIOLOGY: Please see below. CXR 01/26: "Cardiomegaly. No evidence of acute cardiopulmonary pathology." CT head w/out Contrast 01/26: "1. No acute intracranial pathology. 2. Chronic findings, as above." CT Abdomen/Pelvis w/out Contrast 01/26: "1. Acute typhlitis. Recommend GI consultation. 2. Other chronic findings, as above." DVT prophylaxis ordered?:Yes; Lovenox 30mg SC ASSESSMENT AND PLAN: This is a 80-year-old female with a PMHx of breast cancer s/p lumpectomy (01/26/2021), hypothyroidism, Hypertension, bipolar disorder presents to ED for mechanical fall. PROBLEMS: # Mechanical fall - denies any dizziness, lightheadedness, or chest pain prior to fall, during or after also denies loss of consciousness - Head CT: negative for acute pathology - c/w fall precautions - will work with PT/OT for strengthening and balance to prevent reoccurring #Generalized weakness - vitamin D levels - normal - Peripheral smear - Macrocytic hypochromic anemia. No nRBCs. Leukocytosis, predominantly neutrophils, morphologically unremarkable. Adequate platelets. No atypical lymphocytes or blasts identified. - muscle strength 4/5 in all extremities except left arm as pt has previous humerus fx - PT and OT evaluation for strengthening and balance to prevent reoccurring #Abdominal discomfort - CT abd/pelvis w/out contrast showed possible typhlitis - on admission pt meets SIRS criteria with leukocytosis of 19, tachycardia of 110 - will evaluate if pt has CMV as it is a common cause of typhlitis - c/w full liquid diet continue bowels rest - c/w IV pantoprazole for gastric lining protection - IV zosyn to cover for any possible infectious etiology #Asymptomatic bacteruria - on admission pt meets SIRS criteria with leukocytosis of 19, tachycardia of 110 - pt denies any urinary symptoms like dysuria, frequency or urgency - UA: +leukoesterase, +4WBC - UCx: negative for any growths - IV zosyn to cover for any possible infectious etiology #DVT prophylaxis - Lovenox 30mg SC DISPOSITION: pending PT/OT clearance VS, I&O, [facility], [facility] Vital Signs/I&O Vital Signs Date Time Temp Pulse Resp B/P (MAP) Pulse Ox O2 Delivery O2 Flow Rate FiO2 01/28/21 14:00 98.9 78 17 125/59 (81) 99 Room Air I&O- Last 24 Hours up to 6 AM 01/28/21 05:59 Intake Total 3930 ml Output Total 1225 ml Balance 2705 ml Laboratory Data 24H LABS Laboratory Tests 2 01/27/21 16:08: Anion Gap 6L, Glomerular Filtration Rate 55.0, Calcium Level 8.8 01/28/21 05:40: Anion Gap 4L, Glomerular Filtration Rate 59.7, Calcium Level 8.9, Nucleated Red Blood Cells % (auto) 0.0, Magnesium Level 2.9H, Total Bilirubin 0.7, Aspartate Amino Transf (AST/SGOT) 13, Alanine Aminotransferase (ALT/SGPT) 25, Alkaline Phosphatase 82, Total Protein 6.5, Albumin 2.9L, Albumin/Globulin Ratio 0.8L CBC/BMP Laboratory Tests 01/27/21 16:08 01/28/21 05:40 Microbiology Microbiology 01/27/21 Cytomegalovirus Culture, Received Pending 01/27/21 Stool Occult Blood (HOME) - Final, Complete 01/27/21 Gastrointestinal Tract Panel (PCR) - Final, Complete 01/26/21 Blood Culture - Preliminary, Resulted No growth after 24 hours . All specim... 01/26/21 Urine Culture - Final, Complete GME ATTESTATION GME ATTESTATION My faculty preceptor for this patient encounter was physically present during the encounter and was fully available. All aspects of the patient interview, examination, medical decision making process, and medical care plan development were reviewed and approved by the faculty preceptor. The faculty preceptor is aware and concurs with the plan as stated in the body of this note and will attest to such by his/her cosignature. Karrie Pratt DO Jan 28, 2021 16:03
[2021-01-28] MEDS: LURASIDONE HCL 40 MG TAB (LATUDA) PO SCH (17:29)
[2021-01-28] MEDS: RAMELTEON 8 MG TAB (ROZEREM) PO SCH (20:09)
[2021-01-28] MEDS: MAGNESIUM OXIDE 400MG TAB (MAG-OX) PO SCH (20:09)
[2021-01-28 22:00] VITALS: BP 122/60
[2021-01-29] MEDS: PIPERACILLIN/TAZOBACTAM SOD 3.375 GM in D5W MINI-BAG PLUS 50 ML IV SCH ×2 (05:54→10:43)
[2021-01-29] MEDS: LEVOTHYROXINE 50MCG TABLET (0.05MG) PO SCH (05:54)
[2021-01-29 06:00] VITALS: BP 123/60
[2021-01-29 06:13] LABS: HEMATOCRIT 35.3 % (36.0-47.0); MEAN CORPUSCULAR HGB CONC 31.2 g/dl (32.0-36.5); MEAN CORPUSCULAR VOLUME 99.4 fl (80.0-96.0); PLATELET COUNT, AUTOMATED 319 10^3/uL (150-450); RED BLOOD COUNT 3.55 10^6/uL (4.00-5.40); WHITE BLOOD COUNT 11.2 10^3/uL (4.0-10.0)
[2021-01-29 06:33] LABS: ALBUMIN 2.6 GM/DL (3.2-5.2); BILIRUBIN,TOTAL 0.5 MG/DL (0.2-1.0); CALCIUM LEVEL 8.7 MG/DL (8.8-10.2); CREATININE FOR GFR 1.24 MG/DL (0.55-1.30); GLOMERULAR FILTRATION RATE 44.4 (>39); MAGNESIUM LEVEL 2.7 MG/DL (1.8-2.4); POTASSIUM SERUM 3.7 MEQ/L (3.5-5.1); TOTAL PROTEIN 6.4 GM/DL (6.4-8.2)
[2021-01-29] MEDS: ENOXAPARIN 30MG/0.3ML SYRINGE (J1650 PER 10MG) SC SCH (09:16)
[2021-01-29] MEDS: LITHIUM CARBONATE 150 MG CAP PO SCH ×2 (09:16→21:00)
[2021-01-29] MEDS: MULTIVITAMINS/MINERALS THERAP 1 TAB PO SCH (09:16)
[2021-01-29] MEDS: lamoTRIgine 100MG TAB PO SCH (09:16)
[2021-01-29] MEDS: ASPIRIN 81MG ENTERIC TABLET PO SCH (09:16)
[2021-01-29] MEDS: DOCUSATE SODIUM 100MG CAPSULE PO SCH ×2 (09:16→21:00)
[2021-01-29] MEDS: PANTOPRAZOLE 40MG VIAL (C9113 PER 1) IV SCH (09:19)
[2021-01-29] MEDS: ADDERALL 5 MG TAB PO SCH (09:25)
--- NOTE | 2021-01-29 11:45 | IPNPDOC ---
Date Seen The patient was seen on 01/29/21. Progress Note SUBJECTIVE: Patient is a 80-year-old female with a PMHx of breast cancer s/p lumpectomy (01/26/2021), hypothyroidism, Hypertension, bipolar disorder presents to ED for mechanical fall. Patient was seen lying comfortably in bed sitting up and eating applesauce with no acute events overnight as well as no acute complaints. She was upset as she was hoping to get some real food for dinner or for breakfast. I explained to her that we wanted to keep her on bowel rest. After evaluation, we had made a decision to move her diet to a soft diet and see if she tolerates it. Pending PT evaluation and clearance. Denies fevers, chills, shortness of breath, chest pain, palpitations, abdominal pain, dysuria. Discussed the possibility to going home with 24/7 care as well as rehab but yayo ent wants to remain independent and was more receptive of the idea of possible 24/7 care. OBJECTIVE PHYSICAL EXAMINATION: VITAL SIGNS: Please see below. GENERAL: in no acute distress; sitting up eating applesauce HEENT: normocephalic atraumatic head; moist mucous membranes CARDIOVASCULAR: regular rate and rhythm; no murmurs noted RESPIRATORY: clear to auscultation bilaterally; no wheezing, rales or rhonchi noted ABDOMINAL: normoactive bowel sounds; soft, nondistended; non tenderness to pal pation EXTREMITIES: muscle strength 4/5 Right arm; Left arm still in sling as hx of broken humerus; muscle strength 4/5 bilateral lower extremities; sensation intact b/l upper and lower extremities NEUROLOGICAL: CN II-XII grossly intact; no focal neurologic deficits LABORATORY DATA, IMAGING STUDIES, MICROBIOLOGY: Please see below. CXR 01/26: "Cardiomegaly. No evidence of acute cardiopulmonary pathology." CT head w/out Contrast 01/26: "1. No acute intracranial pathology. 2. Chronic findings, as above." CT Abdomen/Pelvis w/out Contrast 01/26: "1. Acute typhlitis. Recommend GI consultation. 2. Other chronic findings, as above." DVT prophylaxis ordered?:Yes; Lovenox 30mg SC ASSESSMENT AND PLAN: This is a 80-year-old female with a PMHx of breast cancer s/p lumpectomy (01/26/2021), hypothyroidism, Hypertension, bipolar disorder presents to ED for mechanical fall. PROBLEMS: # Mechanical fall - c/w fall precautions - will work with PT/OT for strengthening and balance to prevent reoccurring #Generalized weakness - vitamin D levels - normal - Peripheral smear - Macrocytic hypochromic anemia. No nRBCs. Leukocytosis, predominantly neutrophils, morphologically unremarkable. Adequate platelets. No atypical lymphocytes or blasts identified - muscle strength 4/5 in all extremities except left arm as pt has previous humerus fx - PT and OT evaluation for strengthening and balance to prevent recurrence #Abdominal discomfort - CT abd/pelvis w/out contrast showed possible typhlitis - pending CMV culture result - have advanced patient's diet to soft foods - discontinue all IV medications - will start her on PO Augmentin 875 for the next 14 days #Asymptomatic bacteruria - pt continues to deny any urinary symptoms like dysuria, frequency or urgency - UA: +leukoesterase, +4WBC however UCx: negative for any growths - will start her on PO Augmentin 875 for the next 14 days #DVT prophylaxis - Lovenox 30mg SC DISPOSITION: pending PT/OT clearance VS, [facility] Vital Signs/I&O Vital Signs Date Time Temp Pulse Resp B/P (MAP) Pulse Ox O2 Delivery O2 Flow Rate FiO2 01/29/21 09:31 75 121/59 01/29/21 06:00 98.3 18 95 Room Air I&O- Last 24 Hours up to 6 AM 01/29/21 06:00 Intake Total 1172.5 ml Output Total 800 ml Balance 372.5 ml Laboratory Data 24H LABS Laboratory Tests 2 01/29/21 05:44: Nucleated Red Blood Cells % (auto) 0.0, Anion Gap 2L, Glomerular Filtration Rate 44.4, Calcium Level 8.7L, Magnesium Level 2.7H, Total Bilirubin 0.5, Aspartate Amino Transf (AST/SGOT) 12, Alanine Aminotransferase (ALT/SGPT) 23, Alkaline Phosphatase 77, Total Protein 6.4, Albumin 2.6L, Albumin/Globulin Ratio 0.7L CBC/BMP Laboratory Tests 01/29/21 05:44 Microbiology Microbiology 01/27/21 Cytomegalovirus Culture, Received Pending 01/27/21 Stool Occult Blood (HOME) - Final, Complete 01/27/21 Gastrointestinal Tract Panel (PCR) - Final, Complete 01/26/21 Blood Culture - Preliminary, Resulted No Growth after 48 hours. All Specime... 01/26/21 Urine Culture - Final, Complete GME ATTESTATION GME ATTESTATION My faculty preceptor for this patient encounter was physically present during the encounter and was fully available. All aspects of the patient interview, examination, medical decision making process, and medical care plan development were reviewed and approved by the faculty preceptor. The faculty preceptor is aware and concurs with the plan as stated in the body of this note and will attest to such by his/her cosignature. Karrie Pratt DO Jan 29, 2021 11:45
[2021-01-29 14:00] VITALS: BP 127/64
[2021-01-29] MEDS: LURASIDONE HCL 40 MG TAB (LATUDA) PO SCH (18:22)
[2021-01-29] MEDS: RAMELTEON 8 MG TAB (ROZEREM) PO SCH (21:00)
[2021-01-29] MEDS: AUGMENTIN 875 MG TAB PO SCH (21:00)
[2021-01-29 22:00] VITALS: BP 128/67
[2021-01-30] MEDS: LEVOTHYROXINE 50MCG TABLET (0.05MG) PO SCH (05:32)
[2021-01-30 06:00] VITALS: BP 144/64
[2021-01-30 06:58] LABS: HEMATOCRIT 38.2 % (36.0-47.0); HEMOGLOBIN 12.1 g/dl (12.0-15.5); MEAN CORPUSCULAR HEMOGLOBIN 31.2 pg (27.0-33.0); MEAN CORPUSCULAR HGB CONC 31.7 g/dl (32.0-36.5); MEAN CORPUSCULAR VOLUME 98.5 fl (80.0-96.0); PLATELET COUNT, AUTOMATED 330 10^3/uL (150-450); RED BLOOD COUNT 3.88 10^6/uL (4.00-5.40); WHITE BLOOD COUNT 10.8 10^3/uL (4.0-10.0)
[2021-01-30 07:23] LABS: ALBUMIN 3.1 GM/DL (3.2-5.2); BILIRUBIN,TOTAL 0.3 MG/DL (0.2-1.0); CALCIUM LEVEL 9.3 MG/DL (8.8-10.2); CREATININE FOR GFR 1.11 MG/DL (0.55-1.30); GLOMERULAR FILTRATION RATE 50.5 (>39); MAGNESIUM LEVEL 2.5 MG/DL (1.8-2.4); POTASSIUM SERUM 4.2 MEQ/L (3.5-5.1); TOTAL PROTEIN 6.6 GM/DL (6.4-8.2)
[2021-01-30] MEDS: MULTIVITAMINS/MINERALS THERAP 1 TAB PO SCH (07:36)
[2021-01-30 07:37] VITALS: BP 144/64
[2021-01-30] MEDS: AUGMENTIN 875 MG TAB PO SCH (07:37)
[2021-01-30] MEDS: ADDERALL 5 MG TAB PO SCH (07:37)
[2021-01-30] MEDS: lamoTRIgine 100MG TAB PO SCH (07:37)
[2021-01-30] MEDS: LITHIUM CARBONATE 150 MG CAP PO SCH (07:38)
[2021-01-30] MEDS: DOCUSATE SODIUM 100MG CAPSULE PO SCH (07:38)
[2021-01-30] MEDS: ASPIRIN 81MG ENTERIC TABLET PO SCH (07:38)
[2021-01-30] MEDS: ENOXAPARIN 30MG/0.3ML SYRINGE (J1650 PER 10MG) SC SCH (07:38)
[2021-01-30] MEDS ORDERED: AUGM875T28 PO (12:38)
--- NOTE | 2021-01-30 13:18 | DS.PDOC ---
Discharge Summary General Date of Admission Jan 26, 2021 at 17:24 Date of Discharge January 30, 2021 Discharge Summary PROCEDURES PERFORMED DURING STAY: None ADMITTING DIAGNOSES: 1. Mechanical fall 2. Generalized weakness 3. Abdominal discomfort 4. Asymptomatic bacteriuria 5. Breast cancer s/p lumpectomy 6. Hypothyroidism 7. Hypertension 8. Bipolar DISCHARGE DIAGNOSES: 1. Generalized weakness - discharge to ARU 2. Breast cancer s/p lumpectomy 3. Hypothyroidism 4. Hypertension 5. Bipolar COMPLICATIONS/CHIEF COMPLAINT: Typhlitis. HISTORY OF PRESENT ILLNESS: This is a 80 y/o female with a PMHx of breast cancer s/p lumpectomy, hypothyroidism, HTN and Bipolar presents to ED for mechanical fall. Pt states that last night she was trying to get down her front porch steps and she fell. She tried to catch herself with her arms but as she felt too weak to support herself. She did not lose conscious or hit her head before or during the fall. Also denies any dizziness, lightheadedness, or chest pain prior to fall, during or after. She said that she has a lifeline machine around her neck but forgot; attempted to crawl but up the stairs to call EMS but her neighbor came by and called EMS. HOSPITAL COURSE: Patient presented with complaints of fall, generalized weakness as well as abdominal discomfort. She was also found to have asymptomatic bacteruria. As patient fell, we obtained a CT head to rule out any intracranial causes; CT head was negative for any acute pathologies. For abdominal pain CT abdomen pelvis was ordered showing acute typhlitis. Patient was then placed on a liquid diet to give her bowels rest. UA showed leukoesterase is in 1 WBCs however urine culture was negative for any growth. She was placed on 4 days of IV Zosyn to cover for both the typhlitis as well as the asymptomatic bacteruria. CMV culture was also ordered as it is a common cause of typhlitis. PT and OT was evaluated for strengthening and balance to prevent recurrence of fall and for generalized weakness. Hemoccult test was found to be positive; after speaking with the patient she states that she does have hemorrhoids. Explained to her to please follow up with her PCP regarding this finding. After receiving 4 days of IV Zosyn, patient was advanced to soft foods and was able to tolerate that as well. PT recommendation was for acute rehab as patient still does not have full strength to return home on her own she will be discharged to acute rehab to work on strengthening to prevent reoccurrence of fall and for her generalized weakness. She will also be discharged with PO. Augmentin 875 mg BID for the next 10 days. DISCHARGE MEDICATIONS: Please see below. ALLERGIES: Please see below. PHYSICAL EXAMINATION ON DISCHARGE: VITAL SIGNS: Please see below. GENERAL: pleasant appears; in no acute distress HEENT: Head normocephalic atraumatic; moist mucous membranes CARDIOVASCULAR EXAMINATION: Clear to auscultation bilaterally; no wheezing, rales or rhonchi noted RESPIRATORY EXAMINATION: Regular rate and rhythm; no murmurs noted ABDOMINAL EXAMINATION: Normoactive bowel sounds; soft, nondistended, no tenderness to palpation in all 4 quadrants EXTREMITIES: Muscle strength 4/5 in bilateral legs; muscle strength 4/5 in right arm; pt had a humerus fx in left arm treated medically SKIN: No new lesions noted NEUROLOGICAL EXAMINATION: Cranial nerves II through XII grossly intact; no focal neurologic deficits LABORATORY DATA: Please see below. IMAGING: CXR 01/26: "Cardiomegaly. No evidence of acute cardiopulmonary pathology." CT head w/out Contrast 01/26: "1. No acute intracranial pathology. 2. Chronic findings, as above." CT Abdomen/Pelvis w/out Contrast 01/26: "1. Acute typhlitis. Recommend GI consultation. 2. Other chronic findings, as above." PROGNOSIS: Good ACTIVITY: As tolerated DIET: As tolerated DISPOSITION: Discharge to ARU DISCHARGE INSTRUCTIONS: 1. Discharge to ARU 2. Please follow-up with your primary care doctor in the next week. 3. If symptoms worsen or if you develop new symptoms please return to the emergency room. ITEMS TO FOLLOWUP ON ON OUTPATIENT: 1. Please follow-up with your primary care doctor in the next week DISCHARGE CONDITION: Stable TIME SPENT ON DISCHARGE: 33 minutes. Vital Signs/I&Os Vital Signs Date Time Temp Pulse Resp B/P (MAP) Pulse Ox O2 Delivery O2 Flow Rate FiO2 01/30/21 07:37 100 144/64 01/30/21 06:00 98.4 18 97 Room Air I&O- Last 24 Hours up to 6 AM 01/30/21 06:00 Intake Total 1890 ml Output Total 800 ml Balance 1090 ml Laboratory Data Labs 24H Laboratory Tests 2 01/30/21 06:33: Nucleated Red Blood Cells % (auto) 0.0, Anion Gap 3L, Glomerular Filtration Rate 50.5, Calcium Level 9.3, Magnesium Level 2.5H, Total Bilirubin 0.3, Aspartate Amino Transf (AST/SGOT) 14, Alanine Aminotransferase (ALT/SGPT) 25, Alkaline Phosphatase 87, Total Protein 6.6, Albumin 3.1L, Albumin/Globulin Ratio 0.9L CBC/BMP Laboratory Tests 01/30/21 06:33 Microbiology Microbiology 01/27/21 Cytomegalovirus Culture, Received Pending 01/27/21 Stool Occult Blood (HOME) - Final, Complete 01/27/21 Gastrointestinal Tract Panel (PCR) - Final, Complete 01/26/21 Blood Culture - Preliminary, Resulted No Growth after 72 hours. All specime... 01/26/21 Urine Culture - Final, Complete Discharge Medications Scheduled Amlodipine Besylate (Norvasc) 10 Mg Tablet, 10 MG PO DAILY, (Reported) Amoxicillin/Potassium Clav (Augmentin 875-125 Tablet) 1 Each Tablet, 1 TAB PO BID Aspirin (Aspirin EC) 81 Mg Tablet.dr, 81 MG PO DAILY, (Reported) Dextroamphetamine/Amphetamine (Adderall 20 mg Tablet) 20 Mg Tablet, 20 MG PO DAILY, (Reported) Ergocalciferol (Vitamin D2) (Vitamin D2) 50,000 Units Cap, 50,000 UNITS PO QWEEK, (Reported) SATURDAYS Glucosam/Brett-Msm1/C/Ap/Bosw (Osteo Bi-Flex Caplet) 1 Each Tablet, 2 TAB PO DAILY, (Reported) Lamotrigine (Lamotrigine) 150 Mg Tablet, 150 MG PO DAILY, (Reported) Levothyroxine Sodium (Synthroid) 50 Mcg Tablet, 50 MCG PO DAILY, (Reported) [place] Carbonate ([place] Carbonate) 150 Mg Capsule, 150 MG PO DAILY, (Reported) [place] Carbonate ([place] Carbonate) 300 Mg Capsule, 300 MG PO QHS, (Reported) Lurasidone Hydrochloride (Latuda) 40 Mg Tablet, 40 MG PO QPM, (Reported) TAKES AT DINNERTIME Magnesium Oxide (Magnesium Oxide) 400 Mg Tablet, 400 MG PO Q2D, (Reported) EVERY OTHER NIGHT Melatonin (Melatonin) 5 Mg Tablet, 5 MG PO QHS, (Reported) Vitamin B Complex (Vitamin B Complex) 1 Each Tablet, 1 TAB PO Q2D, (Reported) Scheduled PRN Docusate Sodium (Docusate Sodium) 100 Mg Capsule, 100 MG PO DAILY PRN for CONSTIPATION, (Reported) Allergies Coded Allergies: bee venom protein (honey bee) (Verified Allergy, Intermediate, swelling, 01/27/21) doxycycline (Verified Allergy, Intermediate, itch, 01/27/21) Sulfa (Sulfonamide Antibiotics) (Verified Allergy, Unknown, 10/27/18) GME ATTESTATION GME ATTESTATION My faculty preceptor for this patient encounter was physically present during the encounter and was fully available. All aspects of the patient interview, examination, medical decision making process, and medical care plan development were reviewed and approved by the faculty preceptor. The faculty preceptor is aware and concurs with the plan as stated in the body of this note and will attest to such by his/her cosignature. Karrie Pratt DO Jan 30, 2021 13:18
[2021-01-30 14:00] VITALS: BP 121/64
[2021-01-30] MEDS: LURASIDONE HCL 40 MG TAB (LATUDA) PO SCH (17:38)
== END 2021-01-30 19:00 | DRG 395 ==
LOC: M ED 17:23 → EDBD 17:23 → M ED INP 17:24 → ENRESERV 23:52 → M MSPAV 01-27 00:43
PROVIDERS: ADMIT Internal Medicine; ATTEND Internal Medicine
DX: K37 Unspecified appendicitis (principal); R53.1 Weakness; R82.71 Bacteriuria; Z85.3 Personal history of malignant neoplasm of breast; F31.9 Bipolar disorder, unspecified; I10 Essential (primary) hypertension; E03.9 Hypothyroidism, unspecified; Z79.899 Other long term (current) drug therapy; Z79.82 Long term (current) use of aspirin; Z91.030 Bee allergy status; Z88.2 Allergy status to sulfonamides; Z88.8 Allergy status to other drugs, medicaments and biological substances

== ENCOUNTER 2021-01-30 10:41 | Inpatient (IN) | payer MEDICARE, OTHER ==
[~2021-01-30] VITALS: Ht 154.9 cm; Wt 77.0 kg
[~2021-01-30 10:41] MED LIST changes: +ADDE20TA PO; +ASPI-161 PO; +AUGM875T28 PO; +DOCU100C16 PO; +LAMO150T3 PO; -LATU40TA PO; +LATU40TA2 PO; +LITH150C PO; +LOSA25TA13 PO; -LOSA25TA14 PO; +MAGN400T2 PO; +MELA1TAB9 PO; +SYNT50TA PO; +VITATAB73 PO
[2021-01-30] MEDS ORDERED: MIRALAX *UNIT DOSE* 17GM PACKET PO PRN (11:30)
[2021-01-30] MEDS ORDERED: ONDANSETRON 4 MG TAB PO PRN (11:30)
[2021-01-30] MEDS ORDERED: SUCRALFATE 1 GM TAB PO SCH (12:00)
[2021-01-30] MEDS: LACTOBACILLUS ACIDOPHILUS CAP (BACID) PO SCH ×3 (12:30→21:22)
[2021-01-30] MEDS ORDERED: AUGM875T28 PO (12:38)
[2021-01-30 18:05] VITALS: BP 168/76
[2021-01-30] MEDS ORDERED: PILL CUTTER 1 EACH XX PRN (18:20)
[2021-01-30 20:00] VITALS: BP 130/64
[2021-01-30 20:30] VITALS: BP 167/76
[2021-01-30] MEDS: SUCRALFATE 1 GM TAB PO SCH (21:22)
[2021-01-30] MEDS: PANTOPRAZOLE 40MG TAB (PROTONIX) PO SCH (21:22)
[2021-01-30] MEDS: RAMELTEON 8 MG TAB (ROZEREM) PO SCH (21:22)
[2021-01-30] MEDS: AUGMENTIN 875 MG TAB PO SCH (21:22)
[2021-01-30] MEDS: LITHIUM CARBONATE 300 MG CAP PO SCH (21:22)
[2021-01-30] MEDS: REMEDY PHYTOPLEX Z-GUARD PASTE 113GM TUBE (FROM STOREROOM PRODUCT) TOP SCH (21:23)
[2021-01-31 05:13] VITALS: BP 147/67
[2021-01-31] MEDS: LEVOTHYROXINE 50MCG TABLET (0.05MG) PO SCH (05:24)
[2021-01-31 08:06] LABS: BASO % 0.2 % (0.0-1.0); EOS # 0.4 10^3/uL (0.0-0.5); EOS % 2.9 % (0.0-3.0); HEMATOCRIT 40.2 % (36.0-47.0); HEMOGLOBIN 12.4 g/dl (12.0-15.5); LYMPH # 2.7 10^3/uL (1.5-5.0); LYMPH % 22.4 % (24.0-44.0); MEAN CORPUSCULAR HEMOGLOBIN 30.8 pg (27.0-33.0); MEAN CORPUSCULAR HGB CONC 30.8 g/dl (32.0-36.5); MONO # 0.9 10^3/uL (0.0-0.8); MONO % 7.6 % (2.0-8.0); NEUTROPHILS % 66.5 % (36.0-66.0); PLATELET COUNT, AUTOMATED 357 10^3/uL (150-450); RED BLOOD COUNT 4.02 10^6/uL (4.00-5.40)
[2021-01-31] MEDS: REMEDY PHYTOPLEX Z-GUARD PASTE 113GM TUBE (FROM STOREROOM PRODUCT) TOP SCH ×3 (09:00→20:30)
[2021-01-31] MEDS: LITHIUM CARBONATE 150 MG CAP PO SCH (09:20)
[2021-01-31] MEDS: ASPIRIN 81MG ENTERIC TABLET PO SCH (09:20)
[2021-01-31] MEDS: lamoTRIgine 100MG TAB PO SCH (09:20)
[2021-01-31] MEDS: MAGNESIUM OXIDE 400MG TAB (MAG-OX) PO SCH (09:20)
[2021-01-31] MEDS: AUGMENTIN 875 MG TAB PO SCH ×2 (09:20→20:29)
[2021-01-31] MEDS: PANTOPRAZOLE 40MG TAB (PROTONIX) PO SCH ×2 (09:20→20:29)
[2021-01-31] MEDS: MULTIVITAMINS/MINERALS THERAP 1 TAB PO SCH (09:20)
[2021-01-31] MEDS: VITAMIN B COMPLEX/VIT C CAP PO SCH (09:20)
[2021-01-31] MEDS: VITAMIN D 1,000 INTERNATIONAL UNITS TABLET PO SCH (09:20)
[2021-01-31] MEDS: LACTOBACILLUS ACIDOPHILUS CAP (BACID) PO SCH ×4 (09:27→20:30)
[2021-01-31] MEDS: ADDERALL 5 MG TAB PO SCH (09:27)
[2021-01-31] MEDS: SUCRALFATE 1 GM TAB PO SCH ×4 (09:28→20:29)
[2021-01-31] MEDS: PREPARATION H SUPP (HEMORRHOID) PR SCH ×2 (12:06→20:31)
[2021-01-31 14:00] VITALS: BP_SYST 130; BP_SYST 140; BP_DIAS 60; BP_DIAS 70
[2021-01-31] MEDS: LURASIDONE HCL 40MG TAB (LATUDA) PO SCH (17:30)
[2021-01-31 20:00] VITALS: BP 123/70
[2021-01-31] MEDS: LITHIUM CARBONATE 300 MG CAP PO SCH (20:29)
[2021-01-31] MEDS: RAMELTEON 8 MG TAB (ROZEREM) PO SCH (20:29)
[2021-02-01] MEDS: ACETAMINOPHEN TAB 650MG DOSE (2X325MG) PO PRN ×2 (01:15→12:44)
[2021-02-01] MEDS: LEVOTHYROXINE 50MCG TABLET (0.05MG) PO SCH (06:21)
[2021-02-01 06:23] VITALS: BP 131/60
[2021-02-01 06:29] VITALS: BP 131/60
[2021-02-01] MEDS: AUGMENTIN 875 MG TAB PO SCH ×2 (10:25→20:19)
[2021-02-01] MEDS: ASPIRIN 81MG ENTERIC TABLET PO SCH (10:25)
[2021-02-01] MEDS: MAGNESIUM OXIDE 400MG TAB (MAG-OX) PO SCH (10:26)
[2021-02-01] MEDS: VITAMIN D 1,000 INTERNATIONAL UNITS TABLET PO SCH (10:26)
[2021-02-01] MEDS: LACTOBACILLUS ACIDOPHILUS CAP (BACID) PO SCH ×4 (10:26→20:19)
[2021-02-01] MEDS: VITAMIN B COMPLEX/VIT C CAP PO SCH (10:26)
[2021-02-01] MEDS: ADDERALL 5 MG TAB PO SCH (10:26)
[2021-02-01] MEDS: SUCRALFATE 1 GM TAB PO SCH ×4 (10:26→20:18)
[2021-02-01] MEDS: MULTIVITAMINS/MINERALS THERAP 1 TAB PO SCH (10:26)
[2021-02-01] MEDS: PANTOPRAZOLE 40MG TAB (PROTONIX) PO SCH ×2 (10:26→20:19)
[2021-02-01] MEDS: PREPARATION H SUPP (HEMORRHOID) PR SCH ×3 (10:27→20:26)
[2021-02-01] MEDS: LITHIUM CARBONATE 150 MG CAP PO SCH (10:27)
[2021-02-01] MEDS: lamoTRIgine 100MG TAB PO SCH (10:27)
[2021-02-01] MEDS: REMEDY PHYTOPLEX Z-GUARD PASTE 113GM TUBE (FROM STOREROOM PRODUCT) TOP SCH ×3 (10:36→20:19)
[2021-02-01 12:55] LABS: CALCIUM LEVEL 9.2 MG/DL (8.8-10.2); CREATININE FOR GFR 1.1 MG/DL (0.55-1.30)
[2021-02-01 14:00] VITALS: BP 144/66
[2021-02-01] MEDS: SODIUM CHLORIDE NASAL 0.65% SPRAY BTL (OCEAN) SCH ×2 (16:00→20:19)
[2021-02-01] MEDS ORDERED: CEPACOL LOZENGE PO PRN (16:10)
[2021-02-01] MEDS: COMBIVENT RESPIMAT 100-20MCG INHALER 4GM INH SCH ×2 (16:46→20:13)
[2021-02-01] MEDS: guaiFENesin 200 MG TAB PO SCH ×2 (17:06→20:19)
[2021-02-01] MEDS: LURASIDONE HCL 40MG TAB (LATUDA) PO SCH (17:06)
[2021-02-01 20:00] VITALS: BP 138/65
[2021-02-01] MEDS: RAMELTEON 8 MG TAB (ROZEREM) PO SCH (20:19)
[2021-02-01] MEDS: FLUTICASONE PROP 0.05% NASAL SPRAY 16 GM (FLONASE) NARES SCH (20:19)
[2021-02-01] MEDS: LITHIUM CARBONATE 300 MG CAP PO SCH (20:20)
[2021-02-02] MEDS: LEVOTHYROXINE 50MCG TABLET (0.05MG) PO SCH (05:43)
[2021-02-02 06:00] VITALS: BP 140/67
[2021-02-02] MEDS: COMBIVENT RESPIMAT 100-20MCG INHALER 4GM INH SCH ×3 (07:57→19:17)
[2021-02-02] MEDS: guaiFENesin 200 MG TAB PO SCH ×3 (08:13→20:07)
[2021-02-02] MEDS: AUGMENTIN 875 MG TAB PO SCH ×2 (08:13→20:07)
[2021-02-02] MEDS: ADDERALL 5 MG TAB PO SCH (08:13)
[2021-02-02] MEDS: MAGNESIUM OXIDE 400MG TAB (MAG-OX) PO SCH (08:14)
[2021-02-02] MEDS: MULTIVITAMINS/MINERALS THERAP 1 TAB PO SCH (08:14)
[2021-02-02] MEDS: LACTOBACILLUS ACIDOPHILUS CAP (BACID) PO SCH ×4 (08:14→20:07)
[2021-02-02] MEDS: PREPARATION H SUPP (HEMORRHOID) PR SCH ×2 (08:14→20:08)
[2021-02-02] MEDS: ASPIRIN 81MG ENTERIC TABLET PO SCH (08:14)
[2021-02-02] MEDS: SUCRALFATE 1 GM TAB PO SCH ×4 (08:15→20:07)
[2021-02-02] MEDS: PANTOPRAZOLE 40MG TAB (PROTONIX) PO SCH ×2 (08:15→20:07)
[2021-02-02] MEDS: VITAMIN D 1,000 INTERNATIONAL UNITS TABLET PO SCH (08:16)
[2021-02-02] MEDS: FLUTICASONE PROP 0.05% NASAL SPRAY 16 GM (FLONASE) NARES SCH ×2 (08:18→20:08)
[2021-02-02] MEDS: VITAMIN B COMPLEX/VIT C CAP PO SCH (08:18)
[2021-02-02] MEDS: SODIUM CHLORIDE NASAL 0.65% SPRAY BTL (OCEAN) SCH ×3 (08:18→20:08)
[2021-02-02] MEDS: REMEDY PHYTOPLEX Z-GUARD PASTE 113GM TUBE (FROM STOREROOM PRODUCT) TOP SCH ×3 (08:19→20:08)
[2021-02-02] MEDS: ACETAMINOPHEN TAB 650MG DOSE (2X325MG) PO PRN (08:20)
[2021-02-02] MEDS: LITHIUM CARBONATE 150 MG CAP PO SCH (08:24)
[2021-02-02] MEDS: lamoTRIgine 100MG TAB PO SCH (08:25)
[2021-02-02 14:30] VITALS: BP 148/64
[2021-02-02] MEDS: LURASIDONE HCL 40MG TAB (LATUDA) PO SCH (16:37)
[2021-02-02 20:00] VITALS: BP 160/73
[2021-02-02] MEDS: RAMELTEON 8 MG TAB (ROZEREM) PO SCH (20:07)
[2021-02-02] MEDS: LITHIUM CARBONATE 300 MG CAP PO SCH (20:07)
[2021-02-03] MEDS: ACETAMINOPHEN TAB 650MG DOSE (2X325MG) PO PRN ×2 (01:30→08:22)
[2021-02-03] MEDS: LEVOTHYROXINE 50MCG TABLET (0.05MG) PO SCH (05:22)
[2021-02-03 06:16] VITALS: BP 131/61
[2021-02-03] MEDS: COMBIVENT RESPIMAT 100-20MCG INHALER 4GM INH SCH ×3 (07:24→20:09)
[2021-02-03] MEDS: AUGMENTIN 875 MG TAB PO SCH ×2 (08:20→20:28)
[2021-02-03] MEDS: ASPIRIN 81MG ENTERIC TABLET PO SCH (08:20)
[2021-02-03] MEDS: ADDERALL 5 MG TAB PO SCH (08:20)
[2021-02-03] MEDS: SUCRALFATE 1 GM TAB PO SCH ×4 (08:20→20:33)
[2021-02-03] MEDS: MULTIVITAMINS/MINERALS THERAP 1 TAB PO SCH (08:20)
[2021-02-03] MEDS: guaiFENesin 200 MG TAB PO SCH ×3 (08:20→20:33)
[2021-02-03] MEDS: LACTOBACILLUS ACIDOPHILUS CAP (BACID) PO SCH ×4 (08:20→20:33)
[2021-02-03] MEDS: VITAMIN D 1,000 INTERNATIONAL UNITS TABLET PO SCH (08:21)
[2021-02-03] MEDS: MAGNESIUM OXIDE 400MG TAB (MAG-OX) PO SCH (08:21)
[2021-02-03] MEDS: PANTOPRAZOLE 40MG TAB (PROTONIX) PO SCH ×2 (08:21→20:33)
[2021-02-03] MEDS: lamoTRIgine 100MG TAB PO SCH (08:21)
[2021-02-03] MEDS: LITHIUM CARBONATE 150 MG CAP PO SCH (08:21)
[2021-02-03] MEDS: VITAMIN B COMPLEX/VIT C CAP PO SCH (08:21)
[2021-02-03] MEDS: FLUTICASONE PROP 0.05% NASAL SPRAY 16 GM (FLONASE) NARES SCH ×2 (08:23→20:33)
[2021-02-03] MEDS: SODIUM CHLORIDE NASAL 0.65% SPRAY BTL (OCEAN) SCH ×3 (08:23→20:33)
[2021-02-03] MEDS: PREPARATION H SUPP (HEMORRHOID) PR SCH ×2 (08:26→20:22)
[2021-02-03] MEDS: REMEDY PHYTOPLEX Z-GUARD PASTE 113GM TUBE (FROM STOREROOM PRODUCT) TOP SCH ×3 (08:26→20:35)
[2021-02-03 09:01] LABS: BASO % 0.2 % (0.0-1.0); EOS # 0.4 10^3/uL (0.0-0.5); EOS % 3.4 % (0.0-3.0); HEMOGLOBIN 11.3 g/dl (12.0-15.5); LYMPH # 2.4 10^3/uL (1.5-5.0); LYMPH % 19.5 % (24.0-44.0); MEAN CORPUSCULAR HEMOGLOBIN 30.8 pg (27.0-33.0); MEAN CORPUSCULAR HGB CONC 31.4 g/dl (32.0-36.5); MEAN CORPUSCULAR VOLUME 98.1 fl (80.0-96.0); MONO # 1.6 10^3/uL (0.0-0.8); MONO % 12.7 % (2.0-8.0); NEUTROPHILS % 63.6 % (36.0-66.0); PLATELET COUNT, AUTOMATED 363 10^3/uL (150-450); RED BLOOD COUNT 3.67 10^6/uL (4.00-5.40)
[2021-02-03 09:14] LABS: WHITE BLOOD COUNT 12.5 10^3/uL (4.0-10.0)
[2021-02-03 09:27] LABS: CALCIUM LEVEL 8.7 MG/DL (8.8-10.2); CREATININE FOR GFR 0.98 MG/DL (0.55-1.30); GLOMERULAR FILTRATION RATE 58.3 (>39); POTASSIUM SERUM 4.1 MEQ/L (3.5-5.1)
[2021-02-03 14:00] VITALS: BP 140/86
[2021-02-03] MEDS ORDERED: HOME MED LIST COMPLETE! XX SCH (15:30)
[2021-02-03] MEDS ORDERED: ACETAMINOPHEN TAB 650MG DOSE (2X325MG) PO SCH (16:00)
[2021-02-03] MEDS: ACETAMINOPHEN 500 MG TAB PO SCH ×2 (18:17→20:33)
[2021-02-03] MEDS: LURASIDONE HCL 40MG TAB (LATUDA) PO SCH (18:20)
[2021-02-03 20:00] VITALS: BP 147/67
[2021-02-03] MEDS: LITHIUM CARBONATE 300 MG CAP PO SCH (20:33)
[2021-02-03] MEDS: RAMELTEON 8 MG TAB (ROZEREM) PO SCH (20:33)
[2021-02-04] MEDS: LEVOTHYROXINE 50MCG TABLET (0.05MG) PO SCH (05:38)
[2021-02-04 06:00] VITALS: BP 132/60
[2021-02-04] MEDS: COMBIVENT RESPIMAT 100-20MCG INHALER 4GM INH SCH ×3 (07:15→21:43)
[2021-02-04] MEDS: ADDERALL 5 MG TAB PO SCH (07:37)
[2021-02-04] MEDS: SUCRALFATE 1 GM TAB PO SCH ×4 (07:37→23:03)
[2021-02-04] MEDS: LACTOBACILLUS ACIDOPHILUS CAP (BACID) PO SCH ×4 (07:37→23:04)
[2021-02-04] MEDS: PANTOPRAZOLE 40MG TAB (PROTONIX) PO SCH ×2 (07:37→23:04)
[2021-02-04] MEDS: VITAMIN B COMPLEX/VIT C CAP PO SCH (07:37)
[2021-02-04] MEDS: PREPARATION H SUPP (HEMORRHOID) PR SCH ×3 (07:37→23:06)
[2021-02-04] MEDS: lamoTRIgine 100MG TAB PO SCH (07:38)
[2021-02-04] MEDS: ASPIRIN 81MG ENTERIC TABLET PO SCH (07:38)
[2021-02-04] MEDS: MAGNESIUM OXIDE 400MG TAB (MAG-OX) PO SCH (07:39)
[2021-02-04] MEDS: guaiFENesin 200 MG TAB PO SCH ×3 (07:39→23:03)
[2021-02-04] MEDS: ACETAMINOPHEN 500 MG TAB PO SCH ×3 (07:39→23:05)
[2021-02-04] MEDS: MULTIVITAMINS/MINERALS THERAP 1 TAB PO SCH (07:40)
[2021-02-04] MEDS: VITAMIN D 1,000 INTERNATIONAL UNITS TABLET PO SCH (07:40)
[2021-02-04] MEDS: FLUTICASONE PROP 0.05% NASAL SPRAY 16 GM (FLONASE) NARES SCH ×2 (07:41→23:05)
[2021-02-04] MEDS: REMEDY PHYTOPLEX Z-GUARD PASTE 113GM TUBE (FROM STOREROOM PRODUCT) TOP SCH ×3 (07:41→23:07)
[2021-02-04] MEDS: SODIUM CHLORIDE NASAL 0.65% SPRAY BTL (OCEAN) SCH ×3 (07:41→23:05)
[2021-02-04] MEDS: LITHIUM CARBONATE 150 MG CAP PO SCH (07:51)
[2021-02-04] MEDS: AUGMENTIN 875 MG TAB PO SCH (09:00)
[2021-02-04 09:49] LABS: BASO # 0.1 10^3/uL (0.0-0.2); BASO % 0.4 % (0.0-1.0); EOS # 0.8 10^3/uL (0.0-0.5); EOS % 5.7 % (0.0-3.0); HEMATOCRIT 37.5 % (36.0-47.0); HEMOGLOBIN 11.7 g/dl (12.0-15.5); LYMPH # 3.5 10^3/uL (1.5-5.0); LYMPH % 25.3 % (24.0-44.0); MEAN CORPUSCULAR HEMOGLOBIN 30.9 pg (27.0-33.0); MEAN CORPUSCULAR HGB CONC 31.2 g/dl (32.0-36.5); MEAN CORPUSCULAR VOLUME 98.9 fl (80.0-96.0); MONO # 1.3 10^3/uL (0.0-0.8); MONO % 9.7 % (2.0-8.0); NEUTROPHILS # 7.9 10^3/uL (1.5-8.5); NEUTROPHILS % 58.3 % (36.0-66.0); PLATELET COUNT, AUTOMATED 408 10^3/uL (150-450); RED BLOOD COUNT 3.79 10^6/uL (4.00-5.40); WHITE BLOOD COUNT 13.6 10^3/uL (4.0-10.0)
[2021-02-04 14:00] VITALS: BP 125/62
[2021-02-04] MEDS: LURASIDONE HCL 40MG TAB (LATUDA) PO SCH (17:02)
[2021-02-04 22:00] VITALS: BP 131/61
[2021-02-04] MEDS: LITHIUM CARBONATE 300 MG CAP PO SCH (23:04)
[2021-02-04] MEDS: RAMELTEON 8 MG TAB (ROZEREM) PO SCH (23:04)
[2021-02-05] MEDS: LEVOTHYROXINE 50MCG TABLET (0.05MG) PO SCH (05:53)
[2021-02-05 06:00] VITALS: BP 130/60
[2021-02-05] MEDS: COMBIVENT RESPIMAT 100-20MCG INHALER 4GM INH SCH ×3 (07:01→22:03)
[2021-02-05] MEDS: ADDERALL 5 MG TAB PO SCH (07:55)
[2021-02-05] MEDS: LACTOBACILLUS ACIDOPHILUS CAP (BACID) PO SCH ×4 (07:56→20:20)
[2021-02-05] MEDS: ASPIRIN 81MG ENTERIC TABLET PO SCH (07:56)
[2021-02-05] MEDS: MAGNESIUM OXIDE 400MG TAB (MAG-OX) PO SCH (07:56)
[2021-02-05 07:57] LABS: BASO % 0.4 % (0.0-1.0); EOS # 1.1 10^3/uL (0.0-0.5); EOS % 9.5 % (0.0-3.0); HEMATOCRIT 33.4 % (36.0-47.0); HEMOGLOBIN 10.4 g/dl (12.0-15.5); LYMPH # 3.7 10^3/uL (1.5-5.0); LYMPH % 33.1 % (24.0-44.0); MEAN CORPUSCULAR HEMOGLOBIN 30.6 pg (27.0-33.0); MEAN CORPUSCULAR HGB CONC 31.1 g/dl (32.0-36.5); MEAN CORPUSCULAR VOLUME 98.2 fl (80.0-96.0); MONO % 8.6 % (2.0-8.0); NEUTROPHILS # 5.4 10^3/uL (1.5-8.5); NEUTROPHILS % 47.9 % (36.0-66.0); PLATELET COUNT, AUTOMATED 368 10^3/uL (150-450); WHITE BLOOD COUNT 11.2 10^3/uL (4.0-10.0)
[2021-02-05] MEDS: ACETAMINOPHEN 500 MG TAB PO SCH ×3 (07:57→20:20)
[2021-02-05] MEDS: guaiFENesin 200 MG TAB PO SCH ×3 (07:57→20:20)
[2021-02-05] MEDS: MULTIVITAMINS/MINERALS THERAP 1 TAB PO SCH (07:57)
[2021-02-05] MEDS: VITAMIN B COMPLEX/VIT C CAP PO SCH (07:57)
[2021-02-05] MEDS: lamoTRIgine 100MG TAB PO SCH (07:58)
[2021-02-05] MEDS: VITAMIN D 1,000 INTERNATIONAL UNITS TABLET PO SCH (07:58)
[2021-02-05] MEDS: PREPARATION H SUPP (HEMORRHOID) PR SCH ×2 (07:59→20:20)
[2021-02-05] MEDS: SODIUM CHLORIDE NASAL 0.65% SPRAY BTL (OCEAN) SCH ×3 (07:59→20:20)
[2021-02-05] MEDS: SUCRALFATE 1 GM TAB PO SCH ×4 (07:59→20:19)
[2021-02-05] MEDS: FLUTICASONE PROP 0.05% NASAL SPRAY 16 GM (FLONASE) NARES SCH ×2 (07:59→20:20)
[2021-02-05] MEDS: PANTOPRAZOLE 40MG TAB (PROTONIX) PO SCH ×2 (07:59→20:19)
[2021-02-05 08:03] LABS: CALCIUM LEVEL 8.9 MG/DL (8.8-10.2); CREATININE FOR GFR 1.05 MG/DL (0.55-1.30); GLOMERULAR FILTRATION RATE 53.8 (>39); POTASSIUM SERUM 4.2 MEQ/L (3.5-5.1)
[2021-02-05] MEDS: REMEDY PHYTOPLEX Z-GUARD PASTE 113GM TUBE (FROM STOREROOM PRODUCT) TOP SCH ×3 (08:03→20:21)
[2021-02-05] MEDS: LITHIUM CARBONATE 150 MG CAP PO SCH (08:48)
[2021-02-05] MEDS: FUROSEMIDE 20 MG TAB PO SCH (12:05)
[2021-02-05 14:00] VITALS: BP 127/62
[2021-02-05] MEDS: LOPERAMIDE 2 MG CAPLET PO PRN ×2 (16:09→20:24)
[2021-02-05] MEDS: LURASIDONE HCL 40MG TAB (LATUDA) PO SCH (17:08)
[2021-02-05 20:00] VITALS: BP 157/73
[2021-02-05] MEDS: LITHIUM CARBONATE 300 MG CAP PO SCH (20:19)
[2021-02-05] MEDS: RAMELTEON 8 MG TAB (ROZEREM) PO SCH (20:20)
[2021-02-06] MEDS: LEVOTHYROXINE 50MCG TABLET (0.05MG) PO SCH (05:53)
[2021-02-06 06:00] VITALS: BP 160/72
[2021-02-06 07:13] LABS: BASO # 0.1 10^3/uL (0.0-0.2); BASO % 0.4 % (0.0-1.0); EOS # 1.3 10^3/uL (0.0-0.5); EOS % 11.4 % (0.0-3.0); HEMATOCRIT 32.2 % (36.0-47.0); HEMOGLOBIN 10.5 g/dl (12.0-15.5); LYMPH # 3.8 10^3/uL (1.5-5.0); LYMPH % 33.8 % (24.0-44.0); MEAN CORPUSCULAR HEMOGLOBIN 31.7 pg (27.0-33.0); MEAN CORPUSCULAR HGB CONC 32.6 g/dl (32.0-36.5); MEAN CORPUSCULAR VOLUME 97.3 fl (80.0-96.0); MONO # 0.9 10^3/uL (0.0-0.8); MONO % 8.2 % (2.0-8.0); NEUTROPHILS # 5.1 10^3/uL (1.5-8.5); NEUTROPHILS % 45.6 % (36.0-66.0); PLATELET COUNT, AUTOMATED 368 10^3/uL (150-450); RED BLOOD COUNT 3.31 10^6/uL (4.00-5.40); WHITE BLOOD COUNT 11.2 10^3/uL (4.0-10.0)
[2021-02-06] MEDS: COMBIVENT RESPIMAT 100-20MCG INHALER 4GM INH SCH ×2 (07:17→13:59)
[2021-02-06] MEDS: PREPARATION H SUPP (HEMORRHOID) PR SCH ×2 (09:59→20:36)
[2021-02-06] MEDS: MAGNESIUM OXIDE 400MG TAB (MAG-OX) PO SCH (09:59)
[2021-02-06] MEDS: LACTOBACILLUS ACIDOPHILUS CAP (BACID) PO SCH ×4 (09:59→20:35)
[2021-02-06] MEDS: ADDERALL 5 MG TAB PO SCH (09:59)
[2021-02-06] MEDS: guaiFENesin 200 MG TAB PO SCH ×3 (09:59→20:36)
[2021-02-06] MEDS: MULTIVITAMINS/MINERALS THERAP 1 TAB PO SCH (09:59)
[2021-02-06] MEDS: VITAMIN D 1,000 INTERNATIONAL UNITS TABLET PO SCH (09:59)
[2021-02-06] MEDS: LITHIUM CARBONATE 150 MG CAP PO SCH (09:59)
[2021-02-06] MEDS: lamoTRIgine 100MG TAB PO SCH (09:59)
[2021-02-06] MEDS: PANTOPRAZOLE 40MG TAB (PROTONIX) PO SCH ×2 (09:59→20:35)
[2021-02-06] MEDS: VITAMIN B COMPLEX/VIT C CAP PO SCH (09:59)
[2021-02-06] MEDS: ASPIRIN 81MG ENTERIC TABLET PO SCH (09:59)
[2021-02-06] MEDS: SUCRALFATE 1 GM TAB PO SCH ×4 (09:59→20:35)
[2021-02-06] MEDS: FUROSEMIDE 20 MG TAB PO SCH (10:00)
[2021-02-06] MEDS: ACETAMINOPHEN 500 MG TAB PO SCH ×3 (10:00→20:36)
[2021-02-06] MEDS: SODIUM CHLORIDE NASAL 0.65% SPRAY BTL (OCEAN) SCH ×3 (10:04→20:36)
[2021-02-06] MEDS: FLUTICASONE PROP 0.05% NASAL SPRAY 16 GM (FLONASE) NARES SCH ×2 (10:04→20:36)
[2021-02-06] MEDS: REMEDY PHYTOPLEX Z-GUARD PASTE 113GM TUBE (FROM STOREROOM PRODUCT) TOP SCH ×3 (10:05→20:37)
[2021-02-06 14:00] VITALS: BP 132/63
[2021-02-06] MEDS: LURASIDONE HCL 40MG TAB (LATUDA) PO SCH (17:48)
[2021-02-06 20:00] VITALS: BP 154/62
[2021-02-06] MEDS: RAMELTEON 8 MG TAB (ROZEREM) PO SCH (20:35)
[2021-02-06] MEDS: LITHIUM CARBONATE 300 MG CAP PO SCH (20:36)
[2021-02-07] MEDS: LEVOTHYROXINE 50MCG TABLET (0.05MG) PO SCH (05:19)
[2021-02-07 06:00] VITALS: BP 167/72
[2021-02-07] MEDS: COMBIVENT RESPIMAT 100-20MCG INHALER 4GM INH SCH ×2 (07:19)
[2021-02-07] MEDS: REMEDY PHYTOPLEX Z-GUARD PASTE 113GM TUBE (FROM STOREROOM PRODUCT) TOP SCH (09:00)
[2021-02-07] MEDS: MAGNESIUM OXIDE 400MG TAB (MAG-OX) PO SCH (09:50)
[2021-02-07] MEDS: SUCRALFATE 1 GM TAB PO SCH (09:50)
[2021-02-07] MEDS: ADDERALL 5 MG TAB PO SCH (09:50)
[2021-02-07] MEDS: LACTOBACILLUS ACIDOPHILUS CAP (BACID) PO SCH (09:50)
[2021-02-07] MEDS: guaiFENesin 200 MG TAB PO SCH (09:50)
[2021-02-07] MEDS: ASPIRIN 81MG ENTERIC TABLET PO SCH (09:50)
[2021-02-07] MEDS: LITHIUM CARBONATE 150 MG CAP PO SCH (09:50)
[2021-02-07] MEDS: MULTIVITAMINS/MINERALS THERAP 1 TAB PO SCH (09:50)
[2021-02-07] MEDS: VITAMIN B COMPLEX/VIT C CAP PO SCH (09:50)
[2021-02-07] MEDS: VITAMIN D 1,000 INTERNATIONAL UNITS TABLET PO SCH (09:51)
[2021-02-07] MEDS: PANTOPRAZOLE 40MG TAB (PROTONIX) PO SCH (09:51)
[2021-02-07] MEDS: FUROSEMIDE 20 MG TAB PO SCH (09:51)
[2021-02-07] MEDS: PREPARATION H SUPP (HEMORRHOID) PR SCH (09:51)
[2021-02-07] MEDS: ACETAMINOPHEN 500 MG TAB PO SCH (09:51)
[2021-02-07] MEDS: lamoTRIgine 100MG TAB PO SCH (09:51)
[2021-02-07 09:52] VITALS: BP 164/84
[2021-02-07] MEDS: SODIUM CHLORIDE NASAL 0.65% SPRAY BTL (OCEAN) SCH (09:55)
[2021-02-07] MEDS: FLUTICASONE PROP 0.05% NASAL SPRAY 16 GM (FLONASE) NARES SCH (09:55)
[2021-02-07] MEDS ORDERED: PANT40TA29 PO (10:31)
[2021-02-07] MEDS ORDERED: RISATAB3 PO (10:31)
[2021-02-07] MEDS ORDERED: SUCR1TA PO (10:31)
[2021-04-15] MEDS ORDERED: B COCAP4 PO (12:51)
[2021-04-15] MEDS ORDERED: FURO40TA2 PO (12:51)
[2021-04-15] MEDS ORDERED: MAGN400C PO (12:51)
[2021-06-26] MEDS ORDERED: LITH150C PO (13:49)
[2021-06-26] MEDS ORDERED: LATU1TAB PO (13:49)
== END 2021-02-07 12:45 | disposition home or self-care (01) | DRG 556 ==
LOC: M PM&R 18:00
PROVIDERS: ADMIT Physical Medicine & Rehabilitation; ATTEND Physical Medicine & Rehabilitation
DX: R26.2 Difficulty in walking, not elsewhere classified (principal); F31.9 Bipolar disorder, unspecified; I10 Essential (primary) hypertension; E03.9 Hypothyroidism, unspecified; Z85.3 Personal history of malignant neoplasm of breast; Z74.09 Other reduced mobility; Z74.1 Need for assistance with personal care; K52.9 Noninfective gastroenteritis and colitis, unspecified; K64.8 Other hemorrhoids; Z79.82 Long term (current) use of aspirin; Z79.899 Other long term (current) drug therapy; Z88.1 Allergy status to other antibiotic agents; Z88.2 Allergy status to sulfonamides; Z91.030 Bee allergy status; R53.1 Weakness

== ENCOUNTER → 2021-02-24 | Outpatient (CLI) | payer MEDICARE, OTHER ==
[~2021-02-24] MED LIST changes: +LATU40TA PO; -LATU40TA2 PO; -LOSA25TA13 PO; +LOSA25TA14 PO; +PANT40TA29 PO; +RISATAB3 PO; +SUCR1TA PO
--- NOTE | 2021-02-24 14:05 | REP ---
INDICATION: CONTUSION OF THORAX, UNSPECIFIED, INITIAL ENCOUNTER COMPARISON: None. TECHNIQUE: Frontal view of the chest with multiple views of the right hemithorax. Five total views. FINDINGS: Frontal view of the chest demonstrates no focal consolidation/contusion, effusion, or pneumothorax. 5 mm calcified granuloma in the right midlung zone. Multiple views of the right hemithorax demonstrates no acute rib fracture/injury or pathology. IMPRESSION: No obvious acute rib fracture. <Electronically signed by Han Rodriguez > 02/24/21 [id number]
== END ==
LOC: M PLAIMG 13:35
PROVIDERS: ATTEND Physician Assistant
DX: S20.20XA Contusion of thorax, unspecified, initial encounter (principal); X58.XXXA Exposure to other specified factors, initial encounter; Y92.89 Other specified places as the place of occurrence of the external cause; Y93.9 Activity, unspecified; Y99.9 Unspecified external cause status

== ENCOUNTER → 2021-03-06 | Outpatient (CLI) | payer MEDICARE, OTHER ==
--- NOTE | 2021-03-06 15:19 | REP ---
INDICATION: TRAUMA, FELL COMPARISON: None. TECHNIQUE: AP and frog-lateral views of the left femur. FINDINGS: Age-related degenerative changes at the hip and knee joint. No acute fracture or dislocation. No subcutaneous emphysema or foreign body. IMPRESSION: No obvious acute fracture or dislocation. <Electronically signed by Han Rodriguez > 03/06/21 [id number]
--- NOTE | 2021-03-06 15:21 | REP ---
INDICATION: TRAUMA, FELL COMPARISON: None. TECHNIQUE: AP and lateral views left tibia/fibula FINDINGS: Age-related changes at the knee and ankle joint. No obvious acute fracture or dislocation. No subcutaneous emphysema or foreign body. IMPRESSION: No obvious acute fracture or dislocation.. <Electronically signed by Han Rodriguez > 03/06/21 [id number]
== END ==
LOC: M PLAIMG 14:40
PROVIDERS: ATTEND Physician Assistant
DX: M16.12 Unilateral primary osteoarthritis, left hip (principal); M17.12 Unilateral primary osteoarthritis, left knee; M79.605 Pain in left leg

== ENCOUNTER → 2021-03-27 | Outpatient (REF) | payer MEDICARE, OTHER ==
[2021-03-27 17:51] LABS: APPEARANCE, URINE CLEAR (CLEAR); BACTERIA, URINE AUTO NEGATIVE (NEGATIVE); BILIRUBIN, URINE AUTO NEGATIVE (NEGATIVE); BLOOD, URINE BLOOD NEGATIVE (NEGATIVE); COLOR, URINE STRAW (YELLOW); GLUCOSE, URINE (UA) AUTO NEGATIVE (NEGATIVE); KETONE, URINE AUTO NEGATIVE (NEGATIVE); LEUKOCYTE ESTERASE, URINE AUTO NEGATIVE (NEGATIVE); NITRITE, URINE AUTO NEGATIVE (NEGATIVE); PROTEIN, URINE AUTO NEGATIVE (NEGATIVE); RBC, URINE AUTO 0 /HPF (0-3); SPECIFIC GRAVITY URINE AUTO 1.004 (1.002-1.035); SQUAMOUS EPITHELIAL CELL UR AU 0 /HPF (0-6); UROBILINOGEN, URINE AUTO 0.2 mg/dL (0.0-2.0); WBC, URINE AUTO 1 /HPF (0-3)
== END ==
LOC: M LAB REF 16:51
PROVIDERS: ATTEND Physician Assistant
DX: R41.82 Altered mental status, unspecified (principal)

== ENCOUNTER → 2021-03-28 | Outpatient (CLI) | payer MEDICARE, OTHER ==
[~2021-03-28] MED LIST changes: +E-Z-GAS II EFFERVESCENT PACKET (SODIUM BICARB./CITRIC ACID/SIMETHICONE) As Ordered ONE; +E-Z-HD 98% w/w 340GM SUSP BTL As Ordered ONE; +E-Z-PAQUE 96% w/w SUSP 176GM BTL As Ordered ONE
--- NOTE | 2021-03-28 17:18 | REP ---
INDICATION: GASTROENTERITIS/COLITIS, OTH FECAL ABNORMALITIES. COMPARISON: None TECHNIQUE: This procedure was performed by CARLOS Saldana, under the direct supervision of Dr. Espinal. Images were reviewed with Dr. Espinal prior to dictation. Liquid barium and gas producing crystals were given in the erect position, as well as liquid barium in the prone oblique position in order to perform a double contrast upper GI examination. Additional liquid barium was given at the end of the examination in order to perform a small-bowel follow-through. FINDINGS: The manager art film shows no organomegaly or pathological masses. The intestinal gas pattern is unremarkable. The oral and pharyngeal stages of deglutition were unremarkable. Esophageal transport is prompt and efficient and there is no evidence of esophagitis, stricture, or mucosal ring. 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 Some minor tertiary contractions are seen on this examination. There is evidence of a small hiatal hernia. Gastroesophageal reflux was observed to above the level of the maycol. The stomach gilman are normally outlined. The rugal folds are smooth and regular. There is no gastritis, neoplasm, or ulcerative disease. The duodenal gilman are normally outlined. The mucosal folds are smooth and regular. There is no duodenitis, peptic ulcer disease or neoplasm. The visualized portion of the proximal small bowel appears normal in course and caliber. The barium column was followed through the small bowel to the level of the terminal ileum. Small bowel transit time is approximately 15 minutes. During fluoroscopy gentle palpation shows all loops are freely movable and pliable. There is no fixed angulated loops. The small bowel mucosal pattern is normal in course and caliber. There is no transition to suggest a partial small bowel obstruction. Spot filming of the terminal ileum shows it to be unremarkable. 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 Some minor tertiary contractions are seen on this examination. There is evidence of a small hiatal hernia. Gastroesophageal reflux was observed to above the level of the maycol. Small-bowel follow-through with unremarkable with an approximate transit time of 15 minutes. Two minutes of fluoroscopy time was utilized for this procedure. Some fluoroscopic images are performed with last image hold technology. These images require no additional radiation. <Electronically signed by Becky Wen > 03/28/21 [id number] <Electronically signed by Rj Espinal > 03/28/21 [id number]
== END ==
LOC: M RAD 08:40
PROVIDERS: ATTEND Physician Assistant
DX: K21.9 Gastro-esophageal reflux disease without esophagitis (principal); K44.9 Diaphragmatic hernia without obstruction or gangrene; K52.9 Noninfective gastroenteritis and colitis, unspecified; R19.5 Other fecal abnormalities

== ENCOUNTER 2021-03-31 14:22 | Emergency (ER) | payer MEDICARE, OTHER ==
[~2021-03-31] VITALS: Ht 154.9 cm; Wt 68.2 kg
[~2021-03-31 14:22] MED LIST changes: -E-Z-GAS II EFFERVESCENT PACKET (SODIUM BICARB./CITRIC ACID/SIMETHICONE) As Ordered ONE; -E-Z-HD 98% w/w 340GM SUSP BTL As Ordered ONE; -E-Z-PAQUE 96% w/w SUSP 176GM BTL As Ordered ONE
--- OUTSIDE RECORDS SUMMARY | 2021-03-31 14:33 | CCD | Continuity of Care Document ---
Author Author Rachel RAY Organization Unknown Address [id number] [place] [address] 6 [address] [place] [address] Phone [phone] Care Team Providers Care Data Governance Analyst Name Role Phone Temitope Murillo D.O. AUTM Chapincito Hardy MD AUTM [phone] [facility] AUTM [phone] Jose Benton MD AUTM [phone] [facility] AUTM [phone] [facility] AUTM Beth Morgan M.D. AUTM [phone] [facility] AUTM [phone] [facility] AUTM [phone] Problems Active Problems Provider Date Moderate recurrent [...] Use Denies Drug Use Smoking Status Reviewed: 02/24/21 Patient has never smoked Exercise Type/Frequency Gym 2 times a week Sun Exposure Uses sunscreen Seat Belt/Car Seat Always uses seat belt Allergies and adverse reactions Active Allergies Criticality Reaction | Severity Comments Date Sulfa Antibiotics Unable to assess criticality Hives 06/02/2018 Bee Sting Unable to assess criticality Hives 06/02/2018 Doxycycline Unable to assess criticality 12/27/2019 Medications Active Medications SIG Qnty Indications Ordering Provide r Date Cephalexin 500mg Tablets 1 tab by mouth three times daily until gone 21tabs Temitope urbano, D.O. 03/30/2021 Walker Wheels/Fixed With 5 Adjustment Ho les/3" Fixed 3" Misc 1 as directed dx: Dysarthria, frequent falls. [place] KlineOLm 07/18/2020 Ergocalciferol 1.25mg (85525 Ut) C apsules take 1 weekly until gone. 12caps [place] KlineO. 05/14/2020 Physical Therapy Right leg and Balance/Posture 2-3 [...] mouth every day 90tabs [place] KlineO. 11/21/2018 Pantoprazole Sodium 40mg Tablets D R 1 by mouth twice a day Unknown Sucralfate 1gm Tablets take one tablet every night Unknown Erika-bid Probiotic Tablets 1 by mouth every day Unknown Melatonin 5mg Capsules one tablet at night as needed Unknown Osteo Bi-Flex One Per Day Tablets 1 per day Unknown Lamotrigine 150mg Tablets 1 and 1/2 tabs (225 mg total) by mouth daily Unknown Amphetamine-Dextroamphetamine 20mg Tablets Take One Tablet By Mouth Daily Maximum Daily Dose One Tablet Unknown [place] Carbonate 150mg Capsules 1 cap by mouth in the morning Unknown Latuda 40mg Tablets take one tablet by mouth daily. Unknown Aspir-[address] 1 by mouth every day (currently on hold) Unknown 00 B Complete Tablets 1 tablet by mouth per day Unknown Levothyroxine Sodium 50mcg Tablets take one tablet by mouth once a day in the morning on an empty stomach 90tabs Temitope Murillo D.Zak [place] Carbonate 300mg Capsules Take One Capsule By Mouth in the evening Unknown Medications Administered in Office Medication SIG Qnty Indications Ordering Provider Date Covid-19 vaccine, Unspecified Inj ection Unknown 07/26/2020 Covid-19 vaccine, Unspecified Inj ection Unknown 06/28/2020 Immunizations Description No Information Available Vital Signs Date Vital Result Comment 03/06/2021 1:53pm BP Systolic 126 mmHg BP Diastolic 76 mmHg Height 59.6 inches 4'11.60" Weight 154.00 lb BMI (Body Mass Index) 30.5 kg/m2 Heart Rate 67 /min Respiratory Rate 20 /min Body Temperature 98.5 F O2 % BldC Oximetry 96 % [place] Body Weight 100 lb 02/24/2021 1:02pm BP Systolic 120 mmHg BP Diastolic 70 mmHg Height 59.6 inches 4'11.60" Weight 156.38 lb BMI (Body Mass Index) 30.9 kg/m2 Heart Rate 99 /min Respiratory Rate 12 /min Body Temperature 98.0 F O2 % BldC Oximetry 99 % [place] Body Weight 100 lb Results Test Acquired Date Facility Test Result H/L Range Note Ua Routine 03/27/2021 [facility] Outpatient Testi ng (Registration) [address] [place] [address] [phone] Appearance, Urine CLEAR Normal Clear Color, Urine STRAW Normal Yellow PH,Urine 6.0 units Normal 5.0-9.0 Specific [place] Urine Auto 1.004 Normal 1.002-1.035 Protein, Urine Auto NEGATIVE mg/dL Normal Negative Glucose, Urine (Ua) Auto NEGATIVE mg/dL Normal Negative Ketone, Urine Auto NEGATIVE mg/dL Normal Negative Urobilinogen, Urine Auto 0.2 mg/dL Normal 0.0-2.0 Bilirubin, Urine Auto NEGATIVE Normal Negative Nitrite, Urine Auto NEGATIVE Normal Negative Leukocyte Esterase, Urine Auto NEGATIVE Normal Negative Blood, Urine Blood NEGATIVE Normal Negative WBC, Urine Auto 1 /HPF Normal 0-3 RBC, Urine Auto 0 /HPF Normal 0-3 Bacteria, Urine Auto NEGATIVE Normal Negative Squamous Epithelial Cell Ur AU 0 /HPF Normal 0-6 Hyaline Cast, Urine Auto 0 /LPF Normal 0-1 Laboratory test finding 03/27/2021 [facility] Outpatient T esting (Registration) [address] [place] [address] [phone] Urine Culture FULL REPORT IN L <SEE NOTE> Normal 1 Cardiac Marker Panel 01/26/2021 [facility] Outpatient Test ing (Registration) [address] [place] [address] [phone] CPK Creatine Phosphokinase 97 U/L Normal 26-19 2 CK-MB Value Mass 1.7 NG/ML Normal <3.6 MB/CK Relative Index 1.75 Normal < Or =4 2 Troponin I < 0.02 NG/ML Normal < 0.10 3 Laboratory test finding 01/26/2021 [facility] Outpatient T esting (Registration) [address] [place] [address] [phone] Bedside Glucose 126 mg/dL High 83-110 Venous Blood Gas 01/26/2021 [facility] Outpatient Testi ng (Registration) [address] [place] [address] [phone] Venous PH 7.350 units Normal 7.330-7.430 Venous Partial Pressure Co2 46.8 mmHg Normal 38.0-50.0 Venous Partial Pressure O2 51.0 mmHg High 30.0-50.0 Venous Total Co2 26.7 mEq/L Normal 24.0-28.0 Venous Hco3 25.3 mEq/L Normal 23.0-27.0 Venous Base Excess -0.7 Normal -2.0-2.0 Venous Standard Hco3 23.7 mEq/L Normal Venous O2 Saturation 86.5 % High 60.0-80.0 Ua W/ Reflex To Culture 01/26/2021 [facility] Outpatient T esting (Registration) [address] [place] [address] [phone] Appearance, Urine RFX CLEAR Normal Clear Color, Urine RFX STRAW Normal Yellow PH,Urine RFX 7.0 units Normal 5.0-9.0 Specific [place] Ur Auto RFX 1.003 Normal 1.002-1.035 Protein, Urine Auto RFX 1+ mg/dL High Negative Glucose, Urine (Ua) Auto RFX NEGATIVE mg/dL Normal Negative Ketone, Urine Auto RFX NEGATIVE mg/dL Normal Negative Urobilinogen, Urine Auto RFX 0.2 mg/dL Normal 0.0-2.0 Bilirubin, Urine Auto RFX NEGATIVE Normal Negative Nitrite, Urine Auto RFX NEGATIVE Normal Negative Leukocyte Esterase Ur Auto RFX 2+ High Negative Blood, Urine Blood RFX 1+ High Negative WBC, Urine Auto RFX 4 /HPF High 0-3 RBC, Urine Auto RFX 1 /HPF Normal 0-3 Bacteria, Urine Auto RFX 1+ High Negative Squam Epithelial Cell Ur Aurfx 0 /HPF Normal 0-6 Hyaline Cast, Urine Auto RFX 0 /LPF Normal 0-1 Laboratory test finding 01/26/2021 [facility] Outpatient T esting (Registration) [address] [place] [address] [phone] Platelet Estimate NORMAL Normal Normal Differential 01/26/2021 [facility] Outpatient Testi ng (Registration) [address] [place] [address] [phone] Neutrophils 85 % High 28-66 Bands 2 % Normal < 11 Lymphocytes 6 % Low 16-44 Monocytes 7 % High 0-5 Platelet Clumps SMALL AMT Normal CBC With Differential 01/26/2021 [facility] Outpatient Nirali ting (Registration) [address] [place] [address] [phone] White Blood Count 19.8 10 High 4.0-10.0 4 Red Blood Count 3.73 10 Low 4.00-5.40 Hemoglobin 11.7 g/dL Low 12.0-15.5 Hematocrit 36.6 % Normal 36.0-47.0 Mean Corpuscular Volume 98.1 fl High 80.0-96.0 Mean Corpuscular Hemoglobin 31.4 pg Normal 27.0-33.0 Mean Corpuscular HGB Conc 32.0 g/dL Normal 32.0-36.5 Red Cell Distribution Width 13.4 % Normal 11.5-14.5 Platelet Count, Automated 315 10 Normal 150-450 Nucleated Red Blood Cell % 0.0 % Normal 0-0 Laboratory test finding 01/26/2021 [facility] Outpatient T esting (Registration) [address] [place] [address] [phone] Osmolality Serum 296 MOSM/KG Normal 280-301 Thyroid Stimulating Hormone 1.400 uIU/ML Normal 0.358-3.740 Basic Metabolic Profile 01/26/2021 [facility] Outpatient T esting (Registration) [address] [place] [address] [phone] Glucose, Fasting 119 mg/dL High 70-100 Blood Urea Nitrogen 20 mg/dL High 7-18 Creatinine For GFR 1.45 mg/dL High 0.55-1.30 Glomerular Filtration Rate 37.1 Low >39 5 Sodium Level 143 mEq/L Normal 136-145 Potassium Serum 3.8 mEq/L Normal 3.5-5.1 Chloride Level 112 mEq/L High 98-107 Carbon Dioxide Level 25 mEq/L Normal 21-32 Anion Gap 6 mEq/L Low 8-16 Calcium Level 8.8 mg/dL Normal 8.8-10.2 Liver Profile 01/26/2021 [facility] Outpatient Testi ng (Registration) [address] [place] [address] [phone] Ast/Sgot 13 U/L Normal 7-37 Alt/SGPT 26 U/L Normal 12-78 Alkaline Phosphatase 85 U/L Normal 45-117 Bilirubin,Total 0.6 mg/dL Normal 0.2-1.0 Bilirubin,Direct 0.1 mg/dL Normal 0.0-0.2 Total Protein 7.0 GM/DL Normal 6.4-8.2 Albumin 3.3 GM/DL Normal 3.2-5.2 Albumin/Globulin Ratio 0.9 Low 1.2-2.2 Laboratory test finding 01/26/2021 [facility] Outpatient T esting (Registration) [address] [place] [address] [phone] Ammonia 13 uMOL/L Normal <32 Lactic Acid Sepsis Protocol 1.6 mmol/L Normal 0.4-2.0 6 CBC With Differential 01/01/[address] [address] [phone] White Blood Count 8.4 10 Normal 4.0-10.0 Red Blood Count 3.81 10 Low 4.00-5.40 Hemoglobin 11.7 g/dL Low 12.0-15.5 Hematocrit 38.0 % Normal 36.0-47.0 Mean Corpuscular Volume 99.7 fl High 80.0-96.0 Mean Corpuscular Hemoglobin 30.7 pg Normal 27.0-33.0 Mean Corpuscular HGB Conc 30.8 g/dL Low 32.0-36.5 Red Cell Distribution Width 13.6 % Normal 11.5-14.5 Platelet Count, Automated 344 10 Normal 150-450 Neutrophils % 53.8 % Normal 36.0-66.0 Lymph % 31.0 % Normal 24.0-44.0 [place] % 9.4 % High 2.0-8.0 Eos % 4.3 % High 0.0-3.0 Baso % 1.1 % High 0.0-1.0 Immature Granulocyte % 0.4 % Normal 0-3.0 Nucleated Red Blood Cell % 0.0 % Normal 0-0 Neutrophils # 4.6 10 Normal 1.5-8.5 Lymph # 2.6 10 Normal 1.5-5.0 Larue # 0.8 10 Normal 0.0-0.8 Eos # 0.4 10 Normal 0.0-0.5 Baso # 0.1 10 Normal 0.0-0.2 Laboratory test finding 01/01/[address] [address] [phone] Ferritin 46 NG/ML Normal 8-252 Total Iron Binding Capacit 01/01/[address] [address] [phone] Iron (Fe) 70 g/dL Normal 50-170 Total Iron Binding Capacity 354 g/dL Normal 250-450 Percent Saturation 19.8 % Normal 13.2-45.0 Laboratory test finding 01/01/[address] [address] [phone] Vitamin B12 Level 459 pg/mL Normal 247-911 7 Total 25(Oh) Vitamin D 61.3 NG/ML Normal 30.0-100.0 FT4&TSH Panel 01/01/2021 [facility] [address] [place] [address] [phone] Thyroid Stimulating Hormone 2.280 uIU/ML Normal 0. 358-3.740 Free T4 0.75 ng/dL Low 0.76-1.46 Comprehensive Metabolic Profil 01/01/[address] [address] [phone] Glucose, Fasting 93 mg/dL Normal 70-100 Blood Urea Nitrogen 19 mg/dL High 7-18 Creatinine For GFR 1.14 mg/dL Normal 0.55-1.30 Glomerular Filtration Rate 48.9 Normal >39 8 Sodium Level 143 mEq/L Normal 136-145 Potassium Serum 4.8 mEq/L Normal 3.5-5.1 Chloride Level 110 mEq/L High 98-107 Carbon Dioxide Level 32 mEq/L Normal 21-32 Anion Gap 1 mEq/L Low 8-16 Calcium Level 9.1 mg/dL Normal 8.8-10.2 Ast/Sgot 14 U/L Normal 7-37 Alt/SGPT 26 U/L Normal 12-78 Alkaline Phosphatase 74 U/L Normal 45-117 Bilirubin,Total 0.3 mg/dL Normal 0.2-1.0 Total Protein 6.7 GM/DL Normal 6.4-8.2 Albumin 3.6 GM/DL Normal 3.2-5.2 Albumin/Globulin Ratio 1.2 Normal 1.2-2.2 Laboratory test finding 11/20/2020 [facility] Outpatient T esting (Registration) [address] [place] [address] [phone] [place] Level 0.54 mEq/L Low 0.60-1.20 Laboratory test finding 09/30/2020 [facility] Outpatient T esting (Registration) [address] [place] [address] [phone] Magnesium Level 2.9 mg/dL High 1.8-2.4 [place] Level 0.64 mEq/L Normal 0.60-1.20 1 FULL REPORT IN LAB NOTES (eC W and [facility]). ORGANISM 1: ESCHERICHIA COLI COLONY COUNT >100,000 ORGANISM 1: ESCHERICHIA COLI ESCHERICHIA COLI: REACTION TRIMETHOPRIM/SULFAMETHOXAZOLE IV 160mg TMP & 800mg SMXq6h <=20 S TRIMETHOPRIM/SULFAMETHOXAZOLE PO Bactrim DS Bid <=20 S AMPICILLIN IV 500mg q6h 8 S AMPICILLIN PO 500mg q6h fasting 8 S GENTAMICIN IV 80mg q8h <=1 S NITROFURANTOIN PO 100mg BID <=16 S CEFAZOLIN IV 1gm q8h <=4 S LEVOFLOXACIN IV 500mg qd <=0.12 S LEVOFLOXACIN PO 250mg qd <=0.12 S LEVOFLOXACIN PO 500mg qd <=0.12 S TOBRAMYCIN IV 80mg q8h <=1 S CEFTRIAXONE IV 1gm q24h <=1 S CEFTAZIDIME IV 1gm q8h <=1 S AMPICILLIN/SULBACTAM IV 1.5g q6h 4 S PIPERACILLIN/TAZOBACTAM IV 2.25 gm q6h <=4 S AZTREONAM IV 1gm q8h <=1 S ERTAPENEM IV 1gm qd <=0.5 S MEROPENEM IV 1 gm q8h <=0.25 S MEROPENEM IV 500 mg q8h <=0.25 S TIGECYCLINE IV 50mg q12h <=0.5 S CEFEPIME IV 1 gm q12h <=1 S CEFEPIME IV 2 gm q12h <=1 S EXTD BRD SPCTRM BETA LACTAMASE IV NEGATIVE FOR ESBL 2 DIAGNOSIS CRITERIA MMB ng/ml Relative Index (RI) NON-AMI < or = 5 N/A MANCUSO ZONE > 5 < or = 4 AMI > 5 > 4 3 Troponin I Reference Interva l for Siemens [place] LOCI: 99th Percentile= 0.00-0.045 ng/ml Risk Stratification: <= 0.10 ng/ml Decreased Risk for Adverse Clinical Events. 0.10-1.50 ng/ml Increased Risk for Adv erse Clinical Events. Evaluation of additional criterion and/or repeat testing in 2-6 hours is suggested to rule out myocardial damage. >= 1.50 ng/ml Indicative of Myocardial Injury. 4 A Pathologist review of this differential can help in the evaluation of a differential diagnosis. Please order a Pathologist Review (PERISM) if deemed necessary. Results are subject to change if a Pathologist Review is performed. 5 Units are mL/min/1.73 m2 Chronic Kidney Disease Staging per NKF: Stage I & II GFR >=60 Normal to Mildly Decreased Stage III GFR 30-59 Moderately Decreased Stage IV GFR 15-29 Severely Decreased Stage V GFR <15 Very Little GFR Left ESRD GFR <15 on STONER HAND 6 Y/N query for Sepsis Lactate Rule: Y 7 VITAMIN B12 NORMAL RANGE NORMAL 247 - 911 PG/ML INDETERMINATE 211 - 246 PG/ML DEFICIENT LESS THAN 211 PG/ML 8 Units are mL/min/1.73 m2 Chronic Kidney Disease Staging per NKF: Stage I & II GFR >=60 Normal to Mildly Decreased Stage III GFR 30-59 Moderately Decreased Stage IV GFR 15-29 Severely Decreased Stage V GFR <15 Very Little GFR Left ESRD GFR <15 on STONER HAND Procedures Date Code Description Status 03/06/2021 42801 Office/Outpatient Established Lo w MDM 20-29 Min Completed 02/24/2021 24355 Office/Outpatient Established Lo w MDM 20-29 Min Completed 02/17/2021 74670 Trans Care SRV Aft DC W/I 14D, C omm W/I 2 Dys Med Decs Completed 01/03/2021 83564 Office/Outpatient Established Mo d MDM 30-39 Min Completed 11/19/2020 43925 Office/Outpatient Established Mo d MDM 30-39 Min Completed Medical Devices Description No Information Available Encounters Type Date Location Provider Dx Diagnosis Office Visit 03/06/2021 1:40p Family Medicine [facility] CAIT Romero M79.605 Pain in left leg Office Visit 02/24/2021 1:00p Family Medicine [facility] CAIT Kearns S20.20xA Contusion of thorax, unspeci fied, initial encounter Y92.001 Dining room of [facility] residence as [facility] Office Visit 02/17/2021 10:20a Family Medicine [facility] CAIT Kearns K52.89 Other specified noninfective gastroenteritis and colitis F31.9 Bipolar disorder, unspecifie d Office Visit 01/03/2021 10:00a Family Medicine [facility] CAIT Kearns F31.9 Bipolar disorder, unspecifie d E03.9 Hypothyroidism, unspecified E55.9 Vitamin D deficiency, unspec ified R25.1 Tremor, unspecified Office Visit 11/19/2020 8:00a Family Medicine [facility] CAIT Kearns R10.813 Right lower quadrant abdomin al tenderness W10.8xxA Fall (on) (from) other stair s and steps, initial encounter F31.9 Bipolar disorder, unspecifie d Office Visit 09/30/2020 2:20p [facility] Medicine [facility] CAIT Kearns Z00.00 Encntr for general adult med ical exam w/o abnormal findings E03.9 Hypothyroidism, unspecified F31.9 Bipolar disorder, unspecifie d E55.9 Vitamin D deficiency, unspec ified M54.17 Radiculopathy, lumbosacral r egion R25.1 Tremor, unspecified Assessments Date Code Description Provider 03/06/2021 M79.605 Pain in left leg CAIT Romero 02/24/2021 S20.20xA Contusion of thorax, unspecified , initial encounter CAIT Kearns 02/24/2021 Y92.001 Dining room of unspe cified non-institutional (private) residence as the place of occurrence of the external cause CAIT Kearns 02/17/2021 K52.89 Other specified noninfective gas troenteritis and colitis CAIT Kearns 02/17/2021 F31.9 Bipolar disorder, unspecified St even D CAIT Ray 01/03/2021 F31.9 Bipolar disorder, unspecified St even D CAIT Ray 01/03/2021 E03.9 Hypothyroidism, unspecified [place] CAIT Mahajan 01/03/2021 E55.9 Vitamin D deficiency, unspecifie d CAIT Kearns 01/03/2021 R25.1 Tremor, unspecified CAIT Nichols 11/19/2020 R10.813 Right lower quadrant abdominal t enderness CAIT Kearns 11/19/2020 W10.8xxA Fall (on) (from) other stairs an d steps, initial encounter CAIT Kearns 11/19/2020 F31.9 Bipolar disorder, unspecified St even CAIT Mahajan 09/30/2020 Z00.00 Encounter for genera l adult medical examination without abnormal findings CAIT Kearns 09/30/2020 E03.9 Hypothyroidism, unspecified Chase Ray, CAIT 09/30/2020 F31.9 Bipolar disorder, unspecified St CAIT Eli 09/30/2020 E55.9 Vitamin D deficiency, unspecifie d Kirk Ray, CAIT 09/30/2020 M54.17 Radiculopathy, lumbosacral regio n CAIT Kearns 09/30/2020 R25.1 Tremor, unspecified CAIT Nichols Plan of Treatment Future Appointment(s):* 04/09/2021 10:20 am - CAIT Kearns at [facility] Functional Status Description No Information Available Mental Status Description No Information Available Referrals Description No Information Available
--- OUTSIDE RECORDS SUMMARY | 2021-03-31 14:33 | CCD | Continuity of Care Document ---
Author Author Rachel CURRIE Organization Unknown Address [address] [place] [address] Phone [phone] Care Team Providers Care Media Operator Name Role Phone Temitope Murillo D.O. AUTM [phone] Chapincito Hardy MD AUTM [phone] [facility] AUTM [phone] Jose Benton MD AUTM [phone] [facility] AUTM [phone] [facility] AUTM Beth Morgan M.D. AUTM [phone] [facility] AUTM [phone] [facility] AUTM [phone] Problems Active Problems Provider Date Moderate recurrent [...] SIG Qnty Indications Ordering Provide r Date Walker Wheels/Fixed With 5 Adjustment Ho les/3" Fixed 3" Misc 1 as directed dx: Dysarthria, frequent falls. [place] KlineOLm 07/18/2020 Ergocalciferol 1.25mg (09898 Ut) C apsules take 1 weekly until gone. 12caps [place] KlineO. 05/14/2020 Physical Therapy Right leg and Balance/Posture 2-3 times a week for 6 weeks M79.604 [place] KlineO. 07/31/2019 R53.1 Jean Claude Back Support Misc 1 as directed Dx: thoracic kyphosis. M40.04 [place] KlineO. Furosemide 40mg Tablets 1 by mouth every day as needed for swelling. 90tabs R60.9 [place] KlineO. 01/02/2019 Finger Splint Small Misc Finger splint of right littler finger of DIP with finger in full extension. stax- finger splint 1units M20.011 [place] KlineO. 12/23/2018 Amlodipine Besylate 10mg Tablets take one [...] Daily Maximum Daily Dose One Tablet Unknown [place] Carbonate 150mg Capsules 1 cap by mouth [...] on an empty stomach 90tabs Temitope Murillo D.O. [place] Carbonate 300mg Capsules Take One Capsule By [...] F O2 % BldC Oximetry 96 % [place] Body Weight 100 lb 02/24/2021 1:02pm BP Systolic 120 mmHg BP Diastolic 70 mmHg Height 59.6 inches 4'11.60" Weight 156.38 lb BMI (Body Mass Index) 30.9 kg/m2 Heart Rate 99 /min Respiratory Rate 12 /min Body Temperature 98.0 F O2 % BldC Oximetry 99 % [place] Body Weight 100 lb Results Test Acquired Date Facility Test Result H/L Range Note Ua W/ Reflex To Culture 01/26/2021 [facility] Outpatient T madyson (Registration) [address] [place], [place] [id number] [phone] Appearance, Urine RFX CLEAR Normal Clear Color, Urine RFX STRAW Normal Yellow PH,Urine RFX 7.0 units Normal 5.0-9.0 Specific [place] Ur Auto RFX 1.003 Normal 1.002-1.035 Protein, [...] /LPF Normal 0-1 Laboratory test finding 01/26/2021 [facility] Outpatient T esting (Registration) [address] [place] [address] [phone] Bedside Glucose 126 mg/dL High 83-110 Laboratory test finding 01/26/2021 [facility] Outpatient T esting (Registration) [address] [place] [address] [phone] Platelet Estimate NORMAL Normal Normal Differential 01/26/2021 [facility] Outpatient Testi ng (Registration) [address] [place], [place] [address] [phone] Neutrophils 85 % High 28-66 Bands 2 % Normal < 11 Lymphocytes 6 % Low 16-44 Monocytes 7 % High 0-5 Platelet Clumps SMALL AMT Normal CBC With Differential 01/26/2021 [facility] Outpatient Nirali ting (Registration) [address] [place] [address] [phone] White Blood Count 19.8 10 High 4.0-10.0 1 Red Blood Count 3.73 10 Low 4.00-5.40 [...] % Normal 0-0 Laboratory test finding 01/26/2021 [facility] Outpatient T esting (Registration) [address] [place], [place] [address] [phone] Osmolality Serum 296 MOSM/KG Normal 280-301 Thyroid Stimulating Hormone 1.400 uIU/ML Normal 0.358-3.740 Basic Metabolic Profile 01/26/2021 [facility] Outpatient T esting (Registration) [address] [place] [address] [phone] Glucose, Fasting 119 mg/dL High 70-100 Blood Urea Nitrogen 20 mg/dL High 7-18 Creatinine For GFR 1.45 mg/dL High 0.55-1.30 Glomerular Filtration Rate 37.1 Low >39 2 Sodium Level 143 mEq/L Normal 136-145 Potassium Serum 3.8 mEq/L Normal 3.5-5.1 Chloride Level 112 mEq/L High 98-107 Carbon Dioxide Level 25 mEq/L Normal 21-32 Anion Gap 6 mEq/L Low 8-16 Calcium Level 8.8 mg/dL Normal 8.8-10.2 Liver Profile 01/26/2021 [facility] Outpatient Testi ng (Registration) [address] [place] [address] [phone] Ast/Sgot 13 U/L Normal 7-37 Alt/SGPT 26 U/L Normal 12-78 Alkaline Phosphatase 85 U/L Normal 45-117 Bilirubin,Total 0.6 mg/dL Normal 0.2-1.0 Bilirubin,Direct 0.1 mg/dL Normal 0.0-0.2 Total Protein 7.0 GM/DL Normal 6.4-8.2 Albumin 3.3 GM/DL Normal 3.2-5.2 Albumin/Globulin Ratio 0.9 Low 1.2-2.2 Cardiac Marker Panel 01/26/2021 [facility] Outpatient Test ing (Registration) [address] [place] [address] [phone] CPK Creatine Phosphokinase 97 U/L Normal 26-19 2 CK-MB Value Mass 1.7 NG/ML Normal <3.6 MB/CK Relative Index 1.75 Normal < Or =4 3 Troponin I < 0.02 NG/ML Normal < 0.10 4 Laboratory test finding 01/26/2021 [facility] Outpatient T esting (Registration) [address] [place] [address] [phone] Ammonia 13 uMOL/L Normal <32 Lactic Acid Sepsis Protocol 1.6 mmol/L Normal 0.4-2.0 5 Venous Blood Gas 01/26/2021 [facility] Outpatient Testi chasity (Registration) [address] [place] [address] [phone] Venous PH 7.350 units Normal 7.330-7.430 Venous Partial Pressure Co2 46.8 mmHg Normal 38.0-50.0 Venous Partial Pressure O2 51.0 mmHg High 30.0-50.0 Venous Total Co2 26.7 mEq/L Normal 24.0-28.0 Venous Hco3 25.3 mEq/L Normal 23.0-27.0 Venous Base Excess -0.7 Normal -2.0-2.0 Venous Standard Hco3 23.7 mEq/L Normal Venous O2 Saturation 86.5 % High 60.0-80.0 CBC With Differential 01/01/[address] [address] [phone] White Blood Count 8.4 10 Normal 4.0-10.0 [...] 36.0-66.0 Lymph % 31.0 % Normal 24.0-44.0 [place] % 9.4 % High 2.0-8.0 Eos % 4.3 % High 0.0-3.0 Baso % 1.1 % High 0.0-1.0 Immature Granulocyte % 0.4 % Normal 0-3.0 Nucleated Red Blood Cell % 0.0 % Normal 0-0 Neutrophils # 4.6 10 Normal 1.5-8.5 Lymph # 2.6 10 Normal 1.5-5.0 [place] # 0.8 10 Normal 0.0-0.8 Eos # 0.4 10 Normal 0.0-0.5 Baso # 0.1 10 Normal 0.0-0.2 Laboratory test finding 01/01/[address] [address] [phone] Ferritin 46 NG/ML Normal 8-252 Total Iron Binding Capacit 01/01/[address] [address] [phone] Iron (Fe) 70 g/dL Normal 50-170 Total Iron Binding Capacity 354 g/dL Normal 250-450 Percent Saturation 19.8 % Normal 13.2-45.0 Laboratory test finding 01/01/[address] [address] [phone] Vitamin B12 Level 459 pg/mL Normal 247-911 6 Total 25(Oh) Vitamin D 61.3 NG/ML Normal 30.0-100.0 FT4&TSH Panel 01/01/2021 [facility] nter [address] [place] [address] [phone] Thyroid Stimulating Hormone 2.280 uIU/ML Normal 0. 358-3.740 Free T4 0.75 ng/dL Low 0.76-1.46 Comprehensive Metabolic Profil 01/01/[address] [address] [phone] Glucose, Fasting 93 mg/dL Normal 70-100 Blood Urea Nitrogen 19 mg/dL High 7-18 Creatinine For GFR 1.14 mg/dL Normal 0.55-1.30 Glomerular Filtration Rate 48.9 Normal >39 7 Sodium Level 143 mEq/L Normal 136-145 Potassium [...] 1.2 Normal 1.2-2.2 Laboratory test finding 11/20/2020 [facility] Outpatient T esting (Registration) [address] [place] [address] [phone] [place] Level 0.54 mEq/L Low 0.60-1.20 Laboratory test finding 09/30/2020 [facility] Outpatient T esting (Registration) [address] [place] [address] [phone] Magnesium Level 2.9 mg/dL High 1.8-2.4 [place] Level 0.64 mEq/L Normal 0.60-1.20 1 A Pathologist review of this differential can help in the evaluation of a differential diagnosis. Please order a Pathologist Review (PERI) if deemed necessary. Results are subject to change if a Pathologist Review is performed. 2 Units are mL/min/1.73 m2 Chronic Kidney Disease Staging per NKF: Stage I & II GFR >=60 Normal to Mildly Decreased Stage III GFR 30-59 Moderately Decreased Stage IV GFR 15-29 Severely Decreased Stage V GFR <15 Very Little GFR Left ESRD GFR <15 on FLEET DISPATCH MANAGER 3 DIAGNOSIS CRITERIA MMB ng/ml Relative Index (RI) NON-AMI < or = 5 N/A MANCUSO ZONE > 5 < or = 4 AMI > 5 > 4 4 Troponin I Reference Interva l for [place] LOCI: 99th Percentile= 0.00-0.045 ng/ml Risk Stratification: <= 0.10 ng/ml Decreased Risk for Adverse Clinical Events. 0.10-1.50 ng/ml Increased Risk for Adv erse Clinical Events. Evaluation of additional criterion and/or repeat testing in 2-6 hours is suggested to rule out myocardial damage. >= 1.50 ng/ml Indicative of Myocardial Injury. 5 Y/N query for Sepsis Lactate Rule: Y 6 VITAMIN B12 NORMAL RANGE NORMAL 247 - 911 PG/ML INDETERMINATE 211 - 246 PG/ML DEFICIENT LESS THAN 211 PG/ML 7 Units are mL/min/1.73 m2 Chronic Kidney Disease Staging per NKF: Stage I & II GFR >=60 Normal to Mildly Decreased Stage III GFR 30-59 Moderately Decreased Stage IV GFR 15-29 Severely Decreased Stage V GFR <15 Very Little GFR Left ESRD GFR <15 on FLEET DISPATCH MANAGER Procedures Date Code Description Status 03/06/2021 02546 Office/Outpatient Established Lo w MDM 20-29 Min Completed 02/24/2021 92468 Office/Outpatient Established Lo w MDM 20-29 Min Completed 02/17/2021 22356 Trans Care SRV Aft DC W/I 14D, C omm W/I 2 Dys Med Decs Completed 01/03/2021 63181 Office/Outpatient Established Mo d MDM 30-39 Min Completed 11/19/2020 28634 Office/Outpatient Established Mo d MDM 30-39 Min Completed Medical Devices Description No Information Available Encounters Type Date Location Provider Dx Diagnosis Office Visit 03/06/2021 1:40p Family Medicine [facility] CAIT Romero M79.605 Pain in left leg Office Visit 02/24/2021 1:00p Family Medicine [facility] CAIT Kearns S20.20xA Contusion of thorax, unspeci fied, initial encounter Y92.001 [facility] Office Visit 02/17/2021 10:20a Family Medicine [facility] CAIT Kearns K52.89 Other specified noninfective gastroenteritis and colitis F31.9 Bipolar disorder, unspecifie d Office Visit 01/03/2021 10:00a Family Medicine [facility] CAIT Kearns F31.9 Bipolar disorder, unspecifie d E03.9 Hypothyroidism, unspecified E55.9 Vitamin D deficiency, unspec ified R25.1 Tremor, unspecified Office Visit 11/19/2020 8:00a Family Medicine [facility] CAIT Kearns R10.813 Right lower quadrant abdomin al tenderness W10.8xxA Fall (on) (from) other stair s and steps, initial encounter F31.9 Bipolar disorder, unspecifie d Office Visit 09/30/2020 2:20p Family [facility] CAIT Kearns Z00.00 Encntr for general [...] Bipolar disorder, unspecified [facility] CAIT Rodrigues 01/03/2021 F31.9 Bipolar disorder, unspecified [facility] CAIT Rodrigues 01/03/2021 E03.9 Hypothyroidism, unspecified [place] CAIT [...] CAIT Kearns 09/30/2020 E03.9 Hypothyroidism, unspecified [place] CA[facility] Mahajan 09/30/2020 F31.9 Bipolar disorder, unspecified [facility] CAIT Rodrigues 09/30/2020 E55.9 Vitamin D deficiency, unspecifie d CAIT Kearns 09/30/2020 M54.17 Radiculopathy, lumbosacral regio n CAIT Kearns 09/30/2020 R25.1 Tremor, unspecified CAIT Nichols Plan of Treatment Future Appointment(s):* 04/09/2021 10:20 am - CAIT Kearns at [facility] Functional Status Description No Information Available Mental Status Description No Information Available Referrals Description No Information Available
--- OUTSIDE RECORDS SUMMARY | 2021-03-31 14:33 | CCD ---
Continuity of Care Document (CCD) Created on: 03/13/2021 Rachel Puga External Reference #: [id number] : [id number] Sex: Female Author Author Rachel SIMMONS PA Organization Unknown Address [address], [address] [place] [address] Phone [phone] Care Team Providers Care Matrix Bath Operator Name Role Phone Temitope Murillo D.O. AUTM [phone] AUTM Unavailable AUTM Unavailable Eleonora Kerr M.D. AUTM Problems Active Problems Provider Date Essential hypertension Chapincito Hardy M.D. Onset: 05/2019 Social History Type Date Description Comments Sex Unknown ETOH Use Denies alcohol use Tobacco Use Start: Unknown Denies Smoking Recreational Drug Use Denies Drug Use Allergies and adverse reactions Active Allergies Criticality Reaction | Severity Comments Date Sulfa Unable to assess criticality 11/22/2019 Bee Sting Unable to assess criticality 11/22/2019 Doxycycline Unable to assess criticality Itching 02/27/2021 Medications Active Medications SIG Qnty Indications Ordering Provide r Date Colace 100mg Capsules 1 tab orally twice a day with meal. (increase to 3 per day if persistent contipation and hold/decrease if having diarrhea) 90caps K58.2 Chapincito cristobal M.D. 11/22/2019 [place] Carbonate 600mg Capsules 1cap po qd Unknown Lamictal 100mg Tablets 1tab p o bid Unknown Viibryd 40mg Tablets 1tab po qd Unknown Latuda 40mg Tablets 1tab po q d Unknown Adderall 20mg Tablets 1tab po qd Unknown Amlodipine Besylate 10mg Tablets 1tab po qd Unknown Levothyroxine Sodium 50mcg Tablets 1tab po qd Unknown Vitamin B Complex Tablets 1t ab po qd Unknown Magnesium 400mg Tablets 1tab po qd Unknown Vitamin D (Ergocalciferol) 1.25mg (03407 Ut) Capsules 1tab po wkly Unknown Sucralfate 1gm Tablets 1 tab po tid Unknown Erika-bid Probiotic Tablets 1 tab by mouth every day Unknown Pantoprazole Sodium 40mg Tablets D R twice daily -- one tablet in morning 1/2 hour before breakfast and one tablet prior to bedtime. total course 3 months. Unknown Immunizations Description No Information Available Vital Signs Date Vital Result Comment 02/27/2021 9:49am BP Systolic 152 mmHg BP Diastolic 74 mmHg Body Temperature 98.3 F Height 62 inches 5'2" Weight 156.31 lb BMI (Body Mass Index) 28.6 kg/m2 [place] Body Weight 110 lb Weight 70.903 kg BSA (Body Surface Area) 1.72 m2 11/22/2019 8:25am BP Systolic 122 mmHg BP Diastolic 64 mmHg Height 62 inches 5'2" Weight 148.00 lb BMI (Body Mass Index) 27.1 kg/m2 [place] Body Weight 110 lb Weight 67.133 kg BSA (Body Surface Area) 1.68 m2 Results Description No Information Available Procedures Date Code Description Status 02/27/2021 71977 Office/Outpatient New Moderate M DM 45-59 Minutes Completed Medical Devices Description No Information Available Encounters Type Date Location Provider Dx Diagnosis Office Visit 02/27/2021 10:00a [facility] CAIT Gould R19.5 Other fecal abnormalities K64.9 Unspecified hemorrhoids K52.9 Noninfective gastroenteritis and colitis, unspecified Assessments Date Code Description Provider 02/27/2021 R19.5 Other fecal abnormalities CAIT Sierra 02/27/2021 K64.9 Unspecified hemorrhoids CAIT Ortiz 02/27/2021 K52.9 Noninfective gastroenteritis and colitis, unspecified CAIT Sierra Plan of Treatment Future Appointment(s):* 05/08/2021 10:15 am - CAIT Sierra at [facility] * 04/24/2021 12:15 pm - Fox Rucker JR, MD at [facility] 02/27/2021 - CAIT Sierra* R19.5 Other fecal abnormalities * K64.9 Unspecified hemorrhoids * K52.9 Noninfective gastroenteritis and colitis, unspecified Functional Status Description No Information Available Mental Status Description No Information Available Referrals Description No Information Available
--- OUTSIDE RECORDS SUMMARY | 2021-03-31 14:34 | CCD | Continuity of Care Document ---
Author Author Rachel RAY Organization Unknown Address [address] [place] [address] 6 [address] [place] [address] Phone [phone] Care Team Providers Care Mat Cutter Name Role Phone Temitope Murillo D.O. AUTM Chapincito Hardy MD AUTM [phone] [facility] AUTM [phone] Jose Benton MD AUTM [phone] [facility] AUTM [phone] [facility] AUTM [phone] Beth Morgan M.D. AUTM [phone] [facility] AUTM [phone] [facility] AUTM [phone] Problems Active Problems Provider Date Moderate recurrent [...] Use Denies Drug Use Smoking Status Reviewed: 01/03/21 Patient has never smoked Exercise Type/Frequency Gym 2 times a week Sun Exposure Uses sunscreen Seat Belt/Car Seat Always uses seat belt Allergies, Adverse Reactions, Alerts Active Allergies Criticality Reaction | Severity Comments Date Sulfa Antibiotics Unable to assess criticality Hives 06/02/2018 Bee Sting Unable to assess criticality Hives 06/02/2018 Doxycycline Unable to assess criticality 12/27/2019 Medications Active Medications SIG Qnty Indications Ordering Provide r Date Walker Wheels/Fixed With 5 Adjustment Ho les/3" Fixed 3" Misc 1 as directed dx: Dysarthria, frequent falls. [place] KlineOLm 07/18/2020 Ergocalciferol 1.25mg (58709 Ut) C apsules take 1 weekly until [...] Daily Maximum Daily Dose One Tablet Unknown [place] Carbonate 150mg Capsules 1 cap by mouth in the morning Unknown [place] 40mg Tablets take one tablet by mouth daily. Unknown Aspir-[address] 1 by mouth every day (currently on hold) Unknown B Complete Tablets 1 tablet by mouth per day Unknown Levothyroxine Sodium 50mcg Tablets take one tablet by mouth once a day in the morning on an empty stomach 90tabs Temitope Murillo D.O. [place] Carbonate 300mg Capsules Take One Capsule By Mouth in the evening Unknown Medications Administered in Office Medication SIG Qnty Indications Ordering Provider Date Covid-19 vaccine, Unspecified Inj ection Unknown 07/26/2020 Covid-19 vaccine, Unspecified Inj ection Unknown 06/28/2020 Immunizations Description No Information Available Vital Signs Date Vital Result Comment 02/17/2021 10:27am BP Systolic 128 mmHg BP Diastolic 72 mmHg Height 59.6 inches 4'11.60" Weight 156.25 lb BMI (Body Mass Index) 30.9 kg/m2 Heart Rate 99 /min Respiratory Rate 18 /min Body Temperature 98.6 F O2 % BldC Oximetry 96 % [place] Body Weight 100 lb 01/03/2021 9:55am BP Systolic 132 mmHg BP Diastolic 68 mmHg Height 59.6 inches 4'11.60" Weight 154.12 lb BMI (Body Mass Index) 30.5 kg/m2 Heart Rate 78 /min Respiratory Rate 18 /min Body Temperature 99.1 F O2 % BldC Oximetry 97 % [place] Body Weight 100 lb Results Test Acquired Date Facility Test Result H/L Range Note Venous Blood Gas 01/26/2021 [facility] Outpatient Testi ng (Registration) [address] [place] [address] [phone] Venous PH 7.350 units Normal 7.330-7.430 Venous Partial Pressure Co2 46.8 mmHg Normal 38.0-50.0 Venous Partial Pressure O2 51.0 mmHg High 30.0-50.0 Venous Total Co2 26.7 mEq/L Normal 24.0-28.0 Venous Hco3 25.3 mEq/L Normal 23.0-27.0 Venous Base Excess -0.7 Normal -2.0-2.0 Venous Standard Hco3 23.7 mEq/L Normal Venous O2 Saturation 86.5 % High 60.0-80.0 Ua W/ Reflex To Culture 01/26/2021 [facility] Outpatient T esting (Registration) [address] [place] [address] [phone] Appearance, Urine RFX CLEAR Normal Clear Color, Urine RFX STRAW Normal Yellow PH,Urine RFX 7.0 units Normal 5.0-9.0 Specific [place] Ur Auto RFX 1.003 Normal 1.002-1.035 Protein, [...] /LPF Normal 0-1 Laboratory test finding 01/26/2021 [facility] Outpatient T esting (Registration) [address] [place] [address] [phone] Platelet Estimate NORMAL Normal Normal Differential 01/26/2021 [facility] Outpatient Testi ng (Registration) [address] [place] [address] [phone] Neutrophils 85 % High 28-66 Bands 2 % Normal < 11 Lymphocytes 6 % Low 16-44 Monocytes 7 % High 0-5 Platelet Clumps SMALL AMT Normal CBC With Differential 01/26/2021 [facility] Outpatient Nirali ting (Registration) [address] [place] [address] [phone] White Blood Count 19.8 10 High 4.0-10.0 [...] % Normal 0-0 Laboratory test finding 01/26/2021 [facility] Outpatient T esting (Registration) [address] [place], [place] [address] [phone] Osmolality Serum 296 MOSM/KG Normal 280-301 Thyroid Stimulating Hormone 1.400 uIU/ML Normal 0.358-3.740 Basic Metabolic Profile 01/26/2021 [facility] Outpatient T esting (Registration) [address] [place] [address] [phone] Glucose, Fasting 119 mg/dL High 70-100 Blood [...] 8.8 mg/dL Normal 8.8-10.2 Liver Profile 01/26/2021 [facility] Outpatient Testi ng (Registration) [address] [place] [address] [phone] Ast/Sgot 13 U/L Normal 7-37 Alt/SGPT 26 U/L Normal 12-78 Alkaline Phosphatase 85 U/L Normal 45-117 Bilirubin,Total 0.6 mg/dL Normal 0.2-1.0 Bilirubin,Direct 0.1 mg/dL Normal 0.0-0.2 Total Protein 7.0 GM/DL Normal 6.4-8.2 Albumin 3.3 GM/DL Normal 3.2-5.2 Albumin/Globulin Ratio 0.9 Low 1.2-2.2 Cardiac Marker Panel 01/26/2021 [facility] Outpatient Test ing (Registration) [address] [place] [address] [phone] CPK Creatine Phosphokinase 97 U/L Normal 26-19 2 CK-MB Value Mass 1.7 NG/ML Normal <3.6 MB/CK Relative Index 1.75 Normal < Or =4 3 Troponin I < 0.02 NG/ML Normal < 0.10 4 Laboratory test finding 01/26/2021 [facility] Outpatient T esting (Registration) [address] [place] [address] [phone] Ammonia 13 uMOL/L Normal <32 Lactic Acid Sepsis Protocol 1.6 mmol/L Normal 0.4-2.0 5 Laboratory test finding 01/26/2021 [facility] Outpatient T esting (Registration) [address] [place] [address] [phone] Bedside Glucose 126 mg/dL High 83-110 CBC With Differential 01/01/[address] [address] [phone] White Blood Count 8.4 10 Normal 4.0-10.0 [...] 36.0-66.0 Lymph % 31.0 % Normal 24.0-44.0 [place] % 9.4 % High 2.0-8.0 Eos % 4.3 % High 0.0-3.0 Baso % 1.1 % High 0.0-1.0 Immature Granulocyte % 0.4 % Normal 0-3.0 Nucleated Red Blood Cell % 0.0 % Normal 0-0 Neutrophils # 4.6 10 Normal 1.5-8.5 Lymph # 2.6 10 Normal 1.5-5.0 [place] # 0.8 10 Normal 0.0-0.8 Eos # 0.4 10 Normal 0.0-0.5 Baso # 0.1 10 Normal 0.0-0.2 Laboratory test finding 01/01/[address] [address] [phone] Ferritin 46 NG/ML Normal 8-252 Total Iron Binding Capacit 01/01/[address] [address] [phone] Iron (Fe) 70 g/dL Normal 50-170 Total Iron Binding Capacity 354 g/dL Normal 250-450 Percent Saturation 19.8 % Normal 13.2-45.0 Laboratory test finding 01/01/[address] [address] [phone] Vitamin B12 Level 459 pg/mL Normal 247-911 6 Total 25(Oh) Vitamin D 61.3 NG/ML Normal 30.0-100.0 FT4&TSH Panel 01/01/2021 [facility] nter [address] [place] [address] [phone] Thyroid Stimulating Hormone 2.280 uIU/ML Normal 0. 358-3.740 Free T4 0.75 ng/dL Low 0.76-1.46 Comprehensive Metabolic Profil 01/01/[address] [address] [phone] Glucose, Fasting 93 mg/dL Normal 70-100 Blood [...] 1.2 Normal 1.2-2.2 Laboratory test finding 11/20/2020 [facility] Outpatient T esting (Registration) [address] [place] [address] [phone] [place] Level 0.54 mEq/L Low 0.60-1.20 Laboratory test finding 09/30/2020 [facility] Outpatient T esting (Registration) [address] [place] [address] [phone] Magnesium Level 2.9 mg/dL High 1.8-2.4 [place] Level 0.64 mEq/L Normal 0.60-1.20 1 A [...] Little GFR Left ESRD GFR <15 on [employer]CISION [employer]SEM[employer]ER BENCH 3 DIAGNOSIS CRITERIA MMB ng/ml Relative Index (RI) NON-AMI < or = 5 N/A MANCUSO ZONE > 5 < or = 4 AMI > 5 > 4 4 Troponin I Reference Interva l for [employer] [place] LOCI: 99th Percentile= 0.00-0.045 ng/ml Risk Stratification: [...] Little GFR Left ESRD GFR <15 on [employer]ISION [employer]SEM[employer]ER BENCH Procedures Date Code Description Status 01/03/2021 95440 Office/Outpatient Established Mo d MDM 30-39 Min Completed 11/19/2020 38400 Office/Outpatient Established Mo d MDM 30-39 Min Completed Medical Devices Description No Information Available Encounters Type Date Location Provider Dx Diagnosis Office Visit 01/03/2021 10:00a [facility] CAIT Reid F31.9 Bipolar disorder, unspecifie d E03.9 Hypothyroidism, unspecified E55.9 Vitamin D deficiency, unspec ified R25.1 Tremor, unspecified Office Visit 11/19/2020 8:00a [facility] CAIT Reid R10.813 Right lower quadrant abdomin al tenderness W10.8xxA Fall (on) (from) other stair s and steps, initial encounter F31.9 Bipolar disorder, unspecifie d Office Visit 09/30/2020 2:20p [facility] CAIT Reid Z00.00 Encntr for general adult med ical exam w/o abnormal findings E03.9 Hypothyroidism, unspecified F31.9 Bipolar disorder, unspecifie d E55.9 Vitamin D deficiency, unspec ified M54.17 Radiculopathy, lumbosacral r egion R25.1 Tremor, unspecified Assessments Date Code Description Provider 02/17/2021 K52.89 Other specified noninfective gas troenteritis [...] findings CAIT Kearns 09/30/2020 E03.9 Hypothyroidism, unspecified CAIT Contreras 09/30/2020 F31.9 Bipolar disorder, unspecified St even CAIT Mahajan 09/30/2020 E55.9 Vitamin D deficiency, unspecifie d CAIT Kearns 09/30/2020 M54.17 Radiculopathy, lumbosacral regio n CAIT Kearns 09/30/2020 R25.1 Tremor, unspecified CAIT Nichols Plan of Treatment Future Appointment(s):* 04/09/2021 10:20 am - CAIT Kearns at [facility] 02/17/2021 - CAIT Kearns* K52.89 Other specified noninfective gastroenteritis and colitis* Comments:* Improved compared with prior to admission. Continue your current treatment, and call for any concerns. At this point, discontinue your aspirin. * Follow up:* As already scheduled. * F31.9 Bipolar disorder, unspecified* Comments:* With worsening of depressive symptoms, you need to touch base with your counselor and mental health team. Continue your medications as prescribed. Functional Status Description No Information Available Mental Status Description No Information Available Referrals Refer to Reason for Referral Status Appt Date [facility] 79 year old fema le with low back and left hip pain. Please eval and treat. Closed [address] [place] [address] [phone]
--- OUTSIDE RECORDS SUMMARY | 2021-03-31 14:34 | CCD | Continuity of Care Document ---
Author Author Rachel RAY Organization Unknown Address [address] [place] [address] 6 [address] [place] [address] Phone [phone] Care Team Providers Care Plumbing Instructor Name Role Phone Temitope Murillo D.O. AUTM [phone] Chapincito Hardy MD AUTM [phone] [facility] AUTM [phone] Jose Benton MD AUTM [phone] [facility] AUTM [phone] [facility] AUTM [phone] Beth Morgan M.D. AUTM [phone] [facility] AUTM [phone] [facility] AUTM [phone] Problems Active Problems Provider Date Moderate recurrent [...] frequent falls. [place] KlineOLm 07/18/2020 Ergocalciferol 1.25mg (95309 Ut) C apsules take 1 weekly until [...] Daily Maximum Daily Dose One Tablet Unknown [place] Carbonate 150mg Capsules 1 cap by mouth [...] an empty stomach 90tabs Temitope Murillo D.O. [place] Carbonate 300mg Capsules Take One Capsule By Mouth in the evening Unknown Medications Administered in Office Medication SIG Qnty Indications Ordering Provider Date Covid-19 vaccine, Unspecified Inj ection Unknown 07/26/2020 Covid-19 vaccine, Unspecified Inj ection Unknown 06/28/2020 Immunizations Description No Information Available Vital Signs Date Vital Result Comment 02/24/2021 1:02pm BP Systolic 120 mmHg BP Diastolic 70 mmHg Height 59.6 inches 4'11.60" Weight 156.38 lb BMI (Body Mass Index) 30.9 kg/m2 Heart Rate 99 /min Respiratory Rate 12 /min Body Temperature 98.0 F O2 % BldC Oximetry 99 % [place] Body Weight 100 lb 02/17/2021 10:27am BP Systolic 128 mmHg BP Diastolic 72 mmHg Height 59.6 inches 4'11.60" Weight 156.25 lb BMI (Body Mass Index) 30.9 kg/m2 Heart Rate 99 /min Respiratory Rate 18 /min Body Temperature 98.6 F O2 % BldC Oximetry 96 % [place] Body Weight 100 lb Results Test Acquired Date Facility Test Result H/L Range Note Venous Blood Gas 01/26/2021 [facility] Outpatient Testi ng (Registration) [address] [place] [address] [phone] Venous PH 7.350 units Normal 7.330-7.430 Venous Partial Pressure Co2 46.8 mmHg Normal 38.0-50.0 Venous Partial Pressure O2 51.0 mmHg High 30.0-50.0 Venous Total Co2 26.7 mEq/L Normal 24.0-28.0 Venous Hco3 25.3 mEq/L Normal 23.0-27.0 Venous Base Excess -0.7 Normal -2.0-2.0 Venous Standard Hco3 23.7 mEq/L Normal Venous O2 Saturation 86.5 % High 60.0-80.0 Ua W/ Reflex To Culture 01/26/2021 [facility] Outpatient T esting (Registration) [address] [place] [address] [phone] Appearance, Urine RFX CLEAR Normal Clear Color, Urine RFX STRAW Normal Yellow PH,Urine RFX 7.0 units Normal 5.0-9.0 Specific [place] Ur Auto RFX 1.003 Normal 1.002-1.035 Protein, [...] /LPF Normal 0-1 Laboratory test finding 01/26/2021 [facility] Outpatient T esting (Registration) [address] [place] [address] [phone] Platelet Estimate NORMAL Normal Normal Differential 01/26/2021 [facility] Outpatient Testi ng (Registration) [address] [place] [address] [phone] Neutrophils 85 % High 28-66 Bands 2 % Normal < 11 Lymphocytes 6 % Low 16-44 Monocytes 7 % High 0-5 Platelet Clumps SMALL AMT Normal CBC With Differential 01/26/2021 [facility] Outpatient Nirali ting (Registration) [address] [place] [address] [phone] White Blood Count 19.8 10 High 4.0-10.0 [...] % Normal 0-0 Laboratory test finding 01/26/2021 [facility] Outpatient T esting (Registration) [address] [place], [place] [address] [phone] Osmolality Serum 296 MOSM/KG Normal 280-301 Thyroid Stimulating Hormone 1.400 uIU/ML Normal 0.358-3.740 Basic Metabolic Profile 01/26/2021 [facility] Outpatient T esting (Registration) [address] [place] [address] [phone] Glucose, Fasting 119 mg/dL High 70-100 Blood [...] 8.8 mg/dL Normal 8.8-10.2 Liver Profile 01/26/2021 [facility] Outpatient Testi ng (Registration) [address] [place] [address] [phone] Ast/Sgot 13 U/L Normal 7-37 Alt/SGPT 26 U/L Normal 12-78 Alkaline Phosphatase 85 U/L Normal 45-117 Bilirubin,Total 0.6 mg/dL Normal 0.2-1.0 Bilirubin,Direct 0.1 mg/dL Normal 0.0-0.2 Total Protein 7.0 GM/DL Normal 6.4-8.2 Albumin 3.3 GM/DL Normal 3.2-5.2 Albumin/Globulin Ratio 0.9 Low 1.2-2.2 Cardiac Marker Panel 01/26/2021 [facility] Outpatient Test ing (Registration) [address] [place] [address] [phone] CPK Creatine Phosphokinase 97 U/L Normal 26-19 2 CK-MB Value Mass 1.7 NG/ML Normal <3.6 MB/CK Relative Index 1.75 Normal < Or =4 3 Troponin I < 0.02 NG/ML Normal < 0.10 4 Laboratory test finding 01/26/2021 [facility] Outpatient T esting (Registration) [address] [place] [address] [phone] Ammonia 13 uMOL/L Normal <32 Lactic Acid Sepsis Protocol 1.6 mmol/L Normal 0.4-2.0 5 Laboratory test finding 01/26/2021 [facility] Outpatient T esting (Registration) [address] [place] [address] [phone] Bedside Glucose 126 mg/dL High 83-110 CBC With Differential 01/01/[address] [address] [phone] White Blood Count 8.4 10 Normal 4.0-10.0 [...] 36.0-66.0 Lymph % 31.0 % Normal 24.0-44.0 [place] % 9.4 % High 2.0-8.0 Eos % 4.3 % High 0.0-3.0 Baso % 1.1 % High 0.0-1.0 Immature Granulocyte % 0.4 % Normal 0-3.0 Nucleated Red Blood Cell % 0.0 % Normal 0-0 Neutrophils # 4.6 10 Normal 1.5-8.5 Lymph # 2.6 10 Normal 1.5-5.0 [place] # 0.8 10 Normal 0.0-0.8 Eos # 0.4 10 Normal 0.0-0.5 Baso # 0.1 10 Normal 0.0-0.2 Laboratory test finding 01/01/[address] [address] [phone] Ferritin 46 NG/ML Normal 8-252 Total Iron Binding Capacit 01/01/[address] [address] [phone] Iron (Fe) 70 g/dL Normal 50-170 Total Iron Binding Capacity 354 g/dL Normal 250-450 Percent Saturation 19.8 % Normal 13.2-45.0 Laboratory test finding 01/01/[address] [address] [phone] Vitamin B12 Level 459 pg/mL Normal 247-911 6 Total 25(Oh) Vitamin D 61.3 NG/ML Normal 30.0-100.0 FT4&TSH Panel 01/01/2021 [facility] nter [address] [place] [address] [phone] Thyroid Stimulating Hormone 2.280 uIU/ML Normal 0. 358-3.740 Free T4 0.75 ng/dL Low 0.76-1.46 Comprehensive Metabolic Profil 01/01/[address] [address] [phone] Glucose, Fasting 93 mg/dL Normal 70-100 Blood [...] 1.2 Normal 1.2-2.2 Laboratory test finding 11/20/2020 [facility] Outpatient T esting (Registration) [address] [place] [address] [phone] [place] Level 0.54 mEq/L Low 0.60-1.20 Laboratory test finding 09/30/2020 [facility] Outpatient T esting (Registration) [address] [place] [address] [phone] Magnesium Level 2.9 mg/dL High 1.8-2.4 [place] Level 0.64 mEq/L Normal 0.60-1.20 1 A [...] Little GFR Left ESRD GFR <15 on 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 3 DIAGNOSIS CRITERIA MMB ng/ml Relative Index (RI) NON-AMI < or = 5 N/A MNACUSO ZONE > 5 < or = 4 AMI > 5 > 4 4 Troponin I Reference Interva l for [facility] [place] LOCI: 99th Percentile= 0.00-0.045 ng/ml Risk Stratification: [...] Little GFR Left ESRD GFR <15 on 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 Procedures Date Code Description Status 02/17/2021 89682 Trans Care SRV Aft DC W/I 14D, C omm W/I 2 Dys Med Decs Completed 01/03/2021 58514 Office/Outpatient Established Mo d MDM 30-39 Min Completed 11/19/2020 32971 Office/Outpatient Established Mo d MDM 30-39 Min Completed Medical Devices Description No Information Available Encounters Type Date Location Provider Dx Diagnosis Office Visit 02/17/2021 10:20a [facility] CAIT Kearns K52.89 Other specified noninfective gastroenteritis and colitis F31.9 Bipolar disorder, unspecifie d Office Visit 01/03/2021 10:00a [facility] CAIT Kearns F31.9 Bipolar disorder, unspecifie d E03.9 Hypothyroidism, unspecified E55.9 Vitamin D deficiency, unspec ified R25.1 Tremor, unspecified Office Visit 11/19/2020 8:00a [facility] CAIT Kearns R10.813 Right lower quadrant abdomin al tenderness W10.8xxA Fall (on) (from) other stair s and steps, initial encounter F31.9 Bipolar disorder, unspecifie d Office Visit 09/30/2020 2:20p [facility] CAIT Kearns Z00.00 Encntr for general adult med ical exam w/o abnormal findings E03.9 Hypothyroidism, unspecified F31.9 Bipolar disorder, unspecifie d E55.9 Vitamin D deficiency, unspec ified M54.17 Radiculopathy, lumbosacral r egion R25.1 Tremor, unspecified Assessments Date Code Description Provider 02/24/2021 S20.20xA Contusion of thorax, unspecified , initial encounter CAIT Kearns 02/24/2021 Y92.001 Dining room of unspe cified non-institutional (private) residence as the place of occurrence of the external cause CAIT Kearns 02/17/2021 K52.89 Other specified noninfective gas troenteritis and colitis CAIT Kearns 02/17/2021 F31.9 Bipolar disorder, unspecified St CAIT Eli 01/03/2021 F31.9 Bipolar disorder, unspecified St even D CAIT Ray 01/03/2021 E03.9 Hypothyroidism, unspecified [place] CAIT Mahajan 01/03/2021 E55.9 Vitamin D deficiency, unspecifie d CAIT Kearns 01/03/2021 R25.1 Tremor, unspecified Kirk lewis, CAIT 11/19/2020 R10.813 Right lower quadrant abdominal t enderness CAIT Kearns 11/19/2020 W10.8xxA Fall (on) (from) other stairs an d steps, initial encounter CAIT Kearns 11/19/2020 F31.9 Bipolar disorder, unspecified St even D ACIT Ray 09/30/2020 Z00.00 Encounter for genera l adult medical examination without abnormal findings CAIT Kearns 09/30/2020 E03.9 Hypothyroidism, unspecified [place] CAIT Mahajan 09/30/2020 F31.9 Bipolar disorder, unspecified St even D CAIT Ray 09/30/2020 E55.9 Vitamin D deficiency, unspecifie d CAIT Kearns 09/30/2020 M54.17 Radiculopathy, lumbosacral regio n CAIT Kearns 09/30/2020 R25.1 Tremor, unspecified CAIT Nichols Plan of Treatment Future Appointment(s):* 04/09/2021 10:20 am - CAIT Kearns at [facility] 02/24/2021 - CAIT Kearns* S20.20xA Contusion of thorax, unspecified, initial encounter* New Xrays:* Ribs Min 3 Views RT W/Chest-PA, Ordered: 02/24/21 * Comments:* We will obtain an xray of your ribs to further evaluate. Continue to use tylenol as you have been previously, and we will discuss at followup. * Follow up:* As already scheduled. * Y92.001 Dining room of unspecified non-institutional (private) residence as the place of occurrence of the external cause Functional Status Description No Information Available Mental Status Description No Information Available Referrals Refer to Reason for Referral Status Appt Date [facility] 79 year old fema le with low back and left hip pain. Please eval and treat. Closed [address] [place] [address] [phone]
--- OUTSIDE RECORDS SUMMARY | 2021-03-31 14:34 | CCD | Continuity of Care Document ---
Author Author Rachel CURRIE Organization Unknown Address [address] [place] [address] Phone [phone] Care Team Providers Care Filter Press Tender Head Name Role Phone Temitope Murillo D.O. AUTM Chapincito Hardy MD AUTM [phone] [facility] AUTM [phone] Jose Benton MD AUTM [phone] [facility] AUTM [phone] [facility] AUTM Beth Morgan M.D. AUTM [phone] [facility] AUTM [phone] [facility] AUTM [phone] Problems Active Problems Provider Date Moderate recurrent [...] frequent falls. [place] KlineOLm 07/18/2020 Ergocalciferol 1.25mg (56150 Ut) C apsules take 1 weekly until [...] Daily Maximum Daily Dose One Tablet Unknown [place] Carbonate 150mg Capsules 1 cap by mouth [...] an empty stomach 90tabs Temitope Murillo D.O. [place]ent Carbonate 300mg Capsules Take One Capsule By [...] F O2 % BldC Oximetry 96 % [place] Body Weight 100 lb 02/24/2021 1:02pm BP Systolic 120 mmHg BP Diastolic 70 mmHg Height 59.6 inches 4'11.60" Weight 156.38 lb BMI (Body Mass Index) 30.9 kg/m2 Heart Rate 99 /min Respiratory Rate 12 /min Body Temperature 98.0 F O2 % BldC Oximetry 99 % [place] Body Weight 100 lb Results Test Acquired Date Facility Test Result H/L Range Note Ua W/ Reflex To Culture 01/26/2021 [facility] Outpatient T madyson (Registration) [address] [place], [place] [id number] [phone] Appearance, Urine RFX CLEAR Normal Clear Color, Urine RFX STRAW Normal Yellow PH,Urine RFX 7.0 units Normal 5.0-9.0 Specific [place] Ur Auto RFX 1.003 Normal 1.002-1.035 Protein, [...] /LPF Normal 0-1 Laboratory test finding 01/26/2021 [facility] Outpatient T esting (Registration) [address] [place] [address] [phone] Bedside Glucose 126 mg/dL High 83-110 Laboratory test finding 01/26/2021 [facility] Outpatient T esting (Registration) [address] [place] [address] [phone] Platelet Estimate NORMAL Normal Normal Differential 01/26/2021 [facility] Outpatient Testi ng (Registration) [address] [place], [place] [address] [phone] Neutrophils 85 % High 28-66 Bands 2 % Normal < 11 Lymphocytes 6 % Low 16-44 Monocytes 7 % High 0-5 Platelet Clumps SMALL AMT Normal CBC With Differential 01/26/2021 [facility] Outpatient Nirali ting (Registration) [address] [place] [address] [phone] White Blood Count 19.8 10 High 4.0-10.0 [...] % Normal 0-0 Laboratory test finding 01/26/2021 [facility] Outpatient T esting (Registration) [address] [place], [place] [address] [phone] Osmolality Serum 296 MOSM/KG Normal 280-301 Thyroid Stimulating Hormone 1.400 uIU/ML Normal 0.358-3.740 Basic Metabolic Profile 01/26/2021 [facility] Outpatient T esting (Registration) [address] [place] [address] [phone] Glucose, Fasting 119 mg/dL High 70-100 Blood [...] 8.8 mg/dL Normal 8.8-10.2 Liver Profile 01/26/2021 [facility] Outpatient Testi ng (Registration) [address] [place] [address] [phone] Ast/Sgot 13 U/L Normal 7-37 Alt/SGPT 26 U/L Normal 12-78 Alkaline Phosphatase 85 U/L Normal 45-117 Bilirubin,Total 0.6 mg/dL Normal 0.2-1.0 Bilirubin,Direct 0.1 mg/dL Normal 0.0-0.2 Total Protein 7.0 GM/DL Normal 6.4-8.2 Albumin 3.3 GM/DL Normal 3.2-5.2 Albumin/Globulin Ratio 0.9 Low 1.2-2.2 Cardiac Marker Panel 01/26/2021 [facility] Outpatient Test ing (Registration) [address] [place] [address] [phone] CPK Creatine Phosphokinase 97 U/L Normal 26-19 2 CK-MB Value Mass 1.7 NG/ML Normal <3.6 MB/CK Relative Index 1.75 Normal < Or =4 3 Troponin I < 0.02 NG/ML Normal < 0.10 4 Laboratory test finding 01/26/2021 [facility] Outpatient T esting (Registration) [address] [place] [address] [phone] Ammonia 13 uMOL/L Normal <32 Lactic Acid Sepsis Protocol 1.6 mmol/L Normal 0.4-2.0 5 Venous Blood Gas 01/26/2021 [facility] Outpatient Testi chasity (Registration) [address] [place] [address] [phone] Venous PH 7.350 units Normal 7.330-7.430 Venous Partial Pressure Co2 46.8 mmHg Normal 38.0-50.0 Venous Partial Pressure O2 51.0 mmHg High 30.0-50.0 Venous Total Co2 26.7 mEq/L Normal 24.0-28.0 Venous Hco3 25.3 mEq/L Normal 23.0-27.0 Venous Base Excess -0.7 Normal -2.0-2.0 Venous Standard Hco3 23.7 mEq/L Normal Venous O2 Saturation 86.5 % High 60.0-80.0 CBC With Differential 01/01/[address] [address] [phone] White Blood Count 8.4 10 Normal 4.0-10.0 [...] 36.0-66.0 Lymph % 31.0 % Normal 24.0-44.0 Will % 9.4 % High 2.0-8.0 Eos % 4.3 % High 0.0-3.0 Baso % 1.1 % High 0.0-1.0 Immature Granulocyte % 0.4 % Normal 0-3.0 Nucleated Red Blood Cell % 0.0 % Normal 0-0 Neutrophils # 4.6 10 Normal 1.5-8.5 Lymph # 2.6 10 Normal 1.5-5.0 Will # 0.8 10 Normal 0.0-0.8 Eos # 0.4 10 Normal 0.0-0.5 Baso # 0.1 10 Normal 0.0-0.2 Laboratory test finding 01/01/[address] [address] [phone] Ferritin 46 NG/ML Normal 8-252 Total Iron Binding Capacit 01/01/[address] [address] [phone] Iron (Fe) 70 g/dL Normal 50-170 Total Iron Binding Capacity 354 g/dL Normal 250-450 Percent Saturation 19.8 % Normal 13.2-45.0 Laboratory test finding 01/01/[address] [address] [phone] Vitamin B12 Level 459 pg/mL Normal 247-911 6 Total 25(Oh) Vitamin D 61.3 NG/ML Normal 30.0-100.0 FT4&TSH Panel 01/01/2021 [facility] nter [address] [place] [address] [phone] Thyroid Stimulating Hormone 2.280 uIU/ML Normal 0. 358-3.740 Free T4 0.75 ng/dL Low 0.76-1.46 Comprehensive Metabolic Profil 01/01/[address] [address] [phone] Glucose, Fasting 93 mg/dL Normal 70-100 Blood [...] 1.2 Normal 1.2-2.2 Laboratory test finding 11/20/2020 [facility] Outpatient T esting (Registration) [address] [place] [address] [phone] Tangent Level 0.54 mEq/L Low 0.60-1.20 Laboratory test finding 09/30/2020 [facility] Outpatient T esting (Registration) [address] [place] [address] [phone] Magnesium Level 2.9 mg/dL High 1.8-2.4 Tangent Level 0.64 mEq/L Normal 0.60-1.20 1 A [...] Little GFR Left ESRD GFR <15 on VEST TAILOR 3 DIAGNOSIS CRITERIA MMB ng/ml Relative Index (RI) NON-AMI < or = 5 N/A MANCUSO ZONE > 5 < or = 4 AMI > 5 > 4 4 Troponin I Reference Interva l for S[place] LOCI: 99th Percentile= 0.00-0.045 ng/ml Risk Stratification: [...] Little GFR Left ESRD GFR <15 on VEST TAILOR Procedures Date Code Description Status 03/06/2021 38422 Office/Outpatient Established Lo w MDM 20-29 Min Completed 02/24/2021 83263 Office/Outpatient Established Lo w MDM 20-29 Min Completed 02/17/2021 39805 Trans Care SRV Aft DC W/I 14D, C omm W/I 2 Dys Med Decs Completed 01/03/2021 94303 Office/Outpatient Established Mo d MDM 30-39 Min Completed 11/19/2020 49088 Office/Outpatient Established Mo d MDM 30-39 Min Completed Medical Devices Description No Information Available Encounters Type Date Location Provider Dx Diagnosis Office Visit 03/06/2021 1:40p Family [facility] CAIT Romero M79.605 Pain in left leg Office Visit 02/24/2021 1:00p Family [facility] CAIT Kearns S20.20xA Contusion of thorax, unspeci fied, initial encounter Y92.001 [facility] Office Visit 02/17/2021 10:20a Family [facility] CAIT Kearns K52.89 Other specified noninfective gastroenteritis and colitis F31.9 Bipolar disorder, unspecifie d Office Visit 01/03/2021 10:00a Family Medicine [facility] CAIT Kearns F31.9 Bipolar disorder, unspecifie d E03.9 Hypothyroidism, unspecified E55.9 Vitamin D deficiency, unspec ified R25.1 Tremor, unspecified Office Visit 11/19/2020 8:00a Family Medicine [facility] CAIT Kearns R10.813 Right lower quadrant abdomin al tenderness W10.8xxA Fall (on) (from) other stair s and steps, initial encounter F31.9 Bipolar disorder, unspecifie d Office Visit 09/30/2020 2:20p Family [facility] CAIT Kearns Z00.00 Encntr for general adult [...] 04/09/2021 10:20 am - CAIT Kearns at [facility] Functional Status Description No Information Available Mental Status Description No Information Available Referrals Description No Information Available
--- OUTSIDE RECORDS SUMMARY | 2021-03-31 14:34 | CCD | Continuity of Care Document ---
Author Author Rachel SIMMONS PA Organization Unknown Address [address] [facility], [address] [place] [address] Phone [phone] Care Team Providers Care Russet Repairer Name Role Phone Temitope Murillo D.O. AUTM AUTM Unavailable AUTM Unavailable Eleonora Kerr M.D. [...] diarrhea) 90caps K58.2 Chapincito cristobal M.D. 11/22/2019 [place] Carbonate 600mg Capsules 1cap po qd Unknown [...] po qd Unknown Vitamin D (Ergocalciferol) 1.25mg (91050 Ut) Capsules 1tab po wkly Unknown Sucralfate [...] lb BMI (Body Mass Index) 28.6 kg/m2 [place] Body Weight 110 lb Weight 70.903 kg BSA (Body Surface Area) 1.72 m2 11/22/2019 8:25am BP Systolic 122 mmHg BP Diastolic 64 mmHg Height 62 inches 5'2" Weight 148.00 lb BMI (Body Mass Index) 27.1 kg/m2 [place] Body Weight 110 lb Weight 67.133 kg BSA (Body Surface Area) 1.68 m2 Results Description No Information Available Procedures Description No Information Available Medical Devices Description No Information Available Encounters Description No Information Available Assessments Date Code Description Provider 02/27/2021 R19.5 Other fecal abnormalities CAIT Sierra 02/27/2021 K64.9 Unspecified hemorrhoids CAIT Ortiz 02/27/2021 K52.9 Noninfective gastroenteritis and colitis, unspecified CAIT [place] Plan of Treatment No Information Available Functional Status Description No Information Available Mental Status Description No Information Available Referrals Description No Information Available
--- OUTSIDE RECORDS SUMMARY | 2021-03-31 14:34 | CCD | Continuity of Care Document ---
Author Author Rachel SIMMONS PA Organization Unknown Address [address] [facility], [address] [place] [address] Phone [phone] Care Team Providers Care Bag Mender Name Role Phone Temitope Murillo D.O. AUTM [phone] AUTM Unavailable AUTM Unavailable Eleonora Kerr [...] diarrhea) 90caps K58.2 [place] cristobal M.D. 11/22/2019 [place] Carbonate 600mg Capsules 1cap po qd Unknown [...] po qd Unknown Vitamin D (Ergocalciferol) 1.25mg (77871 Ut) Capsules 1tab po wkly Unknown Sucralfate [...] lb BMI (Body Mass Index) 28.6 kg/m2 [place] Body Weight 110 lb Weight 70.903 kg BSA (Body Surface Area) 1.72 m2 11/22/2019 8:25am BP Systolic 122 mmHg BP Diastolic 64 mmHg Height 62 inches 5'2" Weight 148.00 lb BMI (Body Mass Index) 27.1 kg/m2 [place] Body Weight 110 lb Weight 67.133 kg [...]
--- OUTSIDE RECORDS SUMMARY | 2021-03-31 14:34 | CCD | Continuity of Care Document ---
Author Author Rachel CURRIE Organization Unknown Address [address] [place] [address] Phone [phone] Care Team Providers Care Riveting Machine Operator Name Role Phone Temitope Murillo D.O. AUTM [phone] Chapincito Hardy MD AUTM [phone] [facility] AUTM [phone] Jose Benton MD AUTM [phone] [facility] AUTM [phone] [facility] AUTM [phone] Beth Morgan M.D. AUTM [phone] [facility] AUTM [phone] [facility] AUTM [phone] Problems Active Problems Provider Date Moderate recurrent [...] frequent falls. [place] KlineOLm 07/18/2020 Ergocalciferol 1.25mg (83995 Ut) C apsules take 1 weekly until [...] Daily Maximum Daily Dose One Tablet Unknown [place] Carbonate 150mg Capsules 1 cap by mouth [...] an empty stomach 90tabs Temitope Murillo D.O. [place] Carbonate 300mg Capsules Take One Capsule By [...] F O2 % BldC Oximetry 96 % [place] Body Weight 100 lb 02/24/2021 1:02pm BP Systolic 120 mmHg BP Diastolic 70 mmHg Height 59.6 inches 4'11.60" Weight 156.38 lb BMI (Body Mass Index) 30.9 kg/m2 Heart Rate 99 /min Respiratory Rate 12 /min Body Temperature 98.0 F O2 % BldC Oximetry 99 % [place] Body Weight 100 lb Results Test Acquired Date Facility Test Result H/L Range Note Ua W/ Reflex To Culture 01/26/2021 [facility] Outpatient T madyson (Registration) [address] [place], [place] [address] [phone] Appearance, Urine RFX CLEAR Normal Clear Color, Urine RFX STRAW Normal Yellow PH,Urine RFX 7.0 units Normal 5.0-9.0 Specific [place] Ur Auto RFX 1.003 Normal 1.002-1.035 Protein, [...] /LPF Normal 0-1 Laboratory test finding 01/26/2021 [facility] Outpatient T esting (Registration) [address] [place] [address] [phone] Bedside Glucose 126 mg/dL High 83-110 Laboratory test finding 01/26/2021 [facility] Outpatient T esting (Registration) [address] [place] [address] [phone] Platelet Estimate NORMAL Normal Normal Differential 01/26/2021 [facility] Outpatient Testi ng (Registration) [address] [place], [place] [address] [phone] Neutrophils 85 % High 28-66 Bands 2 % Normal < 11 Lymphocytes 6 % Low 16-44 Monocytes 7 % High 0-5 Platelet Clumps SMALL AMT Normal CBC With Differential 01/26/2021 [facility] Outpatient Nirali ting (Registration) [address] [place] [address] [phone] White Blood Count 19.8 10 High 4.0-10.0 [...] % Normal 0-0 Laboratory test finding 01/26/2021 [facility] Outpatient T esting (Registration) [address] [place], [place] [address] [phone] Osmolality Serum 296 MOSM/KG Normal 280-301 Thyroid Stimulating Hormone 1.400 uIU/ML Normal 0.358-3.740 Basic Metabolic Profile 01/26/2021 [facility] Outpatient T esting (Registration) [address] [place] [address] [phone] Glucose, Fasting 119 mg/dL High 70-100 Blood [...] 8.8 mg/dL Normal 8.8-10.2 Liver Profile 01/26/2021 [facility] Outpatient Testi ng (Registration) [address] [place] [address] [phone] Ast/Sgot 13 U/L Normal 7-37 Alt/SGPT 26 U/L Normal 12-78 Alkaline Phosphatase 85 U/L Normal 45-117 Bilirubin,Total 0.6 mg/dL Normal 0.2-1.0 Bilirubin,Direct 0.1 mg/dL Normal 0.0-0.2 Total Protein 7.0 GM/DL Normal 6.4-8.2 Albumin 3.3 GM/DL Normal 3.2-5.2 Albumin/Globulin Ratio 0.9 Low 1.2-2.2 Cardiac Marker Panel 01/26/2021 [facility] Outpatient Test ing (Registration) [address] [place] [address] [phone] CPK Creatine Phosphokinase 97 U/L Normal 26-19 2 CK-MB Value Mass 1.7 NG/ML Normal <3.6 MB/CK Relative Index 1.75 Normal < Or =4 3 Troponin I < 0.02 NG/ML Normal < 0.10 4 Laboratory test finding 01/26/2021 [facility] Outpatient T esting (Registration) [address] [place] [address] [phone] Ammonia 13 uMOL/L Normal <32 Lactic Acid Sepsis Protocol 1.6 mmol/L Normal 0.4-2.0 5 Venous Blood Gas 01/26/2021 [facility] Outpatient Testi chasity (Registration) [address] [place] [address] [phone] Venous PH 7.350 units Normal 7.330-7.430 Venous Partial Pressure Co2 46.8 mmHg Normal 38.0-50.0 Venous Partial Pressure O2 51.0 mmHg High 30.0-50.0 Venous Total Co2 26.7 mEq/L Normal 24.0-28.0 Venous Hco3 25.3 mEq/L Normal 23.0-27.0 Venous Base Excess -0.7 Normal -2.0-2.0 Venous Standard Hco3 23.7 mEq/L Normal Venous O2 Saturation 86.5 % High 60.0-80.0 CBC With Differential 01/01/[address] [address] [phone] White Blood Count 8.4 10 Normal 4.0-10.0 [...] 36.0-66.0 Lymph % 31.0 % Normal 24.0-44.0 [place] % 9.4 % High 2.0-8.0 Eos % 4.3 % High 0.0-3.0 Baso % 1.1 % High 0.0-1.0 Immature Granulocyte % 0.4 % Normal 0-3.0 Nucleated Red Blood Cell % 0.0 % Normal 0-0 Neutrophils # 4.6 10 Normal 1.5-8.5 Lymph # 2.6 10 Normal 1.5-5.0 [place] # 0.8 10 Normal 0.0-0.8 Eos # 0.4 10 Normal 0.0-0.5 Baso # 0.1 10 Normal 0.0-0.2 Laboratory test finding 01/01/[address] [address] [phone] Ferritin 46 NG/ML Normal 8-252 Total Iron Binding Capacit 01/01/[address] [address] [phone] Iron (Fe) 70 g/dL Normal 50-170 Total Iron Binding Capacity 354 g/dL Normal 250-450 Percent Saturation 19.8 % Normal 13.2-45.0 Laboratory test finding 01/01/[address] [address] [phone] Vitamin B12 Level 459 pg/mL Normal 247-911 6 Total 25(Oh) Vitamin D 61.3 NG/ML Normal 30.0-100.0 FT4&TSH Panel 01/01/2021 [facility] nter [address] [place] [address] [phone] Thyroid Stimulating Hormone 2.280 uIU/ML Normal 0. 358-3.740 Free T4 0.75 ng/dL Low 0.76-1.46 Comprehensive Metabolic Profil 01/01/[address] [address] [phone] Glucose, Fasting 93 mg/dL Normal 70-100 Blood [...] 1.2 Normal 1.2-2.2 Laboratory test finding 11/20/2020 [facility] Outpatient T esting (Registration) [address] [place] [address] [phone] [place] Level 0.54 mEq/L Low 0.60-1.20 Laboratory test finding 09/30/2020 [facility] Outpatient T esting (Registration) [address] [place] [address] [phone] Magnesium Level 2.9 mg/dL High 1.8-2.4 [place] Level 0.64 mEq/L Normal 0.60-1.20 1 A [...] Little GFR Left ESRD GFR <15 on WELT POCKET MACHINE OPERATOR 3 DIAGNOSIS CRITERIA MMB ng/ml Relative Index (RI) NON-AMI < or = 5 N/A MANCUSO ZONE > 5 < or = 4 AMI > 5 > 4 4 Troponin I Reference Interva l for [employer] LOCI: 99th Percentile= 0.00-0.045 ng/ml Risk Stratification: [...] Little GFR Left ESRD GFR <15 on WELT POCKET MACHINE OPERATOR Procedures Date Code Description Status 03/06/2021 77004 Office/Outpatient Established Lo w MDM 20-29 Min Completed 02/24/2021 28957 Office/Outpatient Established Lo w MDM 20-29 Min Completed 02/17/2021 33741 Trans Care SRV Aft DC W/I 14D, C omm W/I 2 Dys Med Decs Completed 01/03/2021 79838 Office/Outpatient Established Mo d MDM 30-39 Min Completed 11/19/2020 94509 Office/Outpatient Established Mo d MDM 30-39 Min Completed Medical Devices Description No Information Available Encounters Type Date Location Provider Dx Diagnosis Office Visit 03/06/2021 1:40p Family Medicine [facility] CAIT Romero M79.605 Pain in left leg Office Visit 02/24/2021 1:00p Family Medicine [facility] CAIT Kearns S20.20xA Contusion of thorax, unspeci fied, initial encounter Y92.001 [facility] Office Visit 02/17/2021 10:20a [facility] CAIT Kearns K52.89 Other specified noninfective gastroenteritis and colitis F31.9 Bipolar disorder, unspecifie d Office Visit 01/03/2021 10:00a Family Medicine [facility] CAIT Kearns F31.9 Bipolar disorder, unspecifie d E03.9 Hypothyroidism, unspecified E55.9 Vitamin D deficiency, unspec ified R25.1 Tremor, unspecified Office Visit 11/19/2020 8:00a Family Medicine [facility] CAIT Kearns R10.813 Right lower quadrant abdomin al tenderness W10.8xxA Fall (on) (from) other stair s and steps, initial encounter F31.9 Bipolar disorder, unspecifie d Office Visit 09/30/2020 2:20p Family [facility] CAIT Kearns Z00.00 Encntr for general [...] 04/09/2021 10:20 am - CAIT Kearns at [facility] Functional Status Description No Information Available Mental Status Description No Information Available Referrals Description No Information Available
--- OUTSIDE RECORDS SUMMARY | 2021-03-31 14:34 | CCD | Continuity of Care Document ---
Author Author Rachel SIMMONS PA Organization Unknown Address [address] [facility], [address] [place] [address] Phone [phone] Care Team Providers Care Electronics Hardware Design Engineer Name Role Phone Temitope Murillo D.O. AUTM [phone] AUTM Unavailable AUTM Unavailable Eleonora Kerr [...] diarrhea) 90caps K58.2 [place] cristobal M.D. 11/22/2019 [place] Carbonate 600mg Capsules 1cap po qd Unknown [...] po qd Unknown Vitamin D (Ergocalciferol) 1.25mg (96553 Ut) Capsules 1tab po wkly Unknown Sucralfate [...] lb BMI (Body Mass Index) 28.6 kg/m2 [place] Body Weight 110 lb Weight 70.903 kg BSA (Body Surface Area) 1.72 m2 11/22/2019 8:25am BP Systolic 122 mmHg BP Diastolic 64 mmHg Height 62 inches 5'2" Weight 148.00 lb BMI (Body Mass Index) 27.1 kg/m2 [place] Body Weight 110 lb Weight 67.133 kg [...]
--- OUTSIDE RECORDS SUMMARY | 2021-03-31 14:34 | CCD | Continuity of Care Document ---
Author Author Rachel SIMMONS PA Organization Unknown Address [address] [facility], [address] [place] [address] Phone [phone] Care Team Providers Care Student Services Coordinator Name Role Phone Temitope Murillo D.O. AUTM [phone] AUTM Unavailable AUTM Unavailable Eleonora Kerr [...] diarrhea) 90caps K58.2 [place] cristobal M.D. 11/22/2019 [place] Carbonate 600mg Capsules 1cap po qd Unknown [...] po qd Unknown Vitamin D (Ergocalciferol) 1.25mg (63599 Ut) Capsules 1tab po wkly Unknown Sucralfate [...] lb BMI (Body Mass Index) 28.6 kg/m2 [place] Body Weight 110 lb Weight 70.903 kg BSA (Body Surface Area) 1.72 m2 11/22/2019 8:25am BP Systolic 122 mmHg BP Diastolic 64 mmHg Height 62 inches 5'2" Weight 148.00 lb BMI (Body Mass Index) 27.1 kg/m2 [place] Body Weight 110 lb Weight 67.133 [...]
--- OUTSIDE RECORDS SUMMARY | 2021-03-31 14:34 | CCD | Continuity of Care Document ---
Author Author Rachel RAY Organization Unknown Address [address] [place] [address] 6 [address] [place] [address] Phone [phone] Care Team Providers Care Modern Greek Studies Professor Name Role Phone Temitope Murillo D.O. AUTM [phone] Chapincito Hardy MD AUTM [phone] [facility] AUTM [phone] Jose Benton MD AUTM [phone] [facility] AUTM [phone] [facility] AUTM Beth Morgan M.D. AUTM [phone] [facility] AUTM [phone] [facility] AUTM [phone] Problems Active Problems Provider Date Moderate recurrent [...] frequent falls. Brooklyn KlineOLm 07/18/2020 Ergocalciferol 1.25mg (50572 Ut) C apsules take 1 weekly until [...] Daily Maximum Daily Dose One Tablet Unknown [place] Carbonate 150mg Capsules 1 cap by mouth [...] an empty stomach 90tabs Temitope Murillo D.O. [place] Carbonate 300mg Capsules Take One Capsule By [...] F O2 % BldC Oximetry 96 % [place] Body Weight 100 lb 01/03/2021 9:55am BP Systolic 132 mmHg BP Diastolic 68 mmHg Height 59.6 inches 4'11.60" Weight 154.12 lb BMI (Body Mass Index) 30.5 kg/m2 Heart Rate 78 /min Respiratory Rate 18 /min Body Temperature 99.1 F O2 % BldC Oximetry 97 % [place] Body Weight 100 lb Results Test Acquired Date Facility Test Result H/L Range Note Venous Blood Gas 01/26/2021 [facility] Outpatient Testi ng (Registration) [address] [place] [address] [phone] Venous PH 7.350 units Normal 7.330-7.430 Venous Partial Pressure Co2 46.8 mmHg Normal 38.0-50.0 Venous Partial Pressure O2 51.0 mmHg High 30.0-50.0 Venous Total Co2 26.7 mEq/L Normal 24.0-28.0 Venous Hco3 25.3 mEq/L Normal 23.0-27.0 Venous Base Excess -0.7 Normal -2.0-2.0 Venous Standard Hco3 23.7 mEq/L Normal Venous O2 Saturation 86.5 % High 60.0-80.0 Ua W/ Reflex To Culture 01/26/2021 [facility] Outpatient T esting (Registration) [address] [place] [address] [phone] Appearance, Urine RFX CLEAR Normal Clear Color, Urine RFX STRAW Normal Yellow PH,Urine RFX 7.0 units Normal 5.0-9.0 Specific [place] Ur Auto RFX 1.003 Normal 1.002-1.035 Protein, [...] /LPF Normal 0-1 Laboratory test finding 01/26/2021 [facility] Outpatient T esting (Registration) [address] [place] [address] [phone] Platelet Estimate NORMAL Normal Normal Differential 01/26/2021 [facility] Outpatient Testi ng (Registration) [address] [place] [address] [phone] Neutrophils 85 % High 28-66 Bands 2 % Normal < 11 Lymphocytes 6 % Low 16-44 Monocytes 7 % High 0-5 Platelet Clumps SMALL AMT Normal CBC With Differential 01/26/2021 [facility] Outpatient Nirali ting (Registration) [address] [place] [address] [phone] White Blood Count 19.8 10 High 4.0-10.0 [...] % Normal 0-0 Laboratory test finding 01/26/2021 [facility] Outpatient T esting (Registration) [address] [place], [place] [address] [phone] Osmolality Serum 296 MOSM/KG Normal 280-301 Thyroid Stimulating Hormone 1.400 uIU/ML Normal 0.358-3.740 Basic Metabolic Profile 01/26/2021 [facility] Outpatient T esting (Registration) [address] [place] [address] [phone] Glucose, Fasting 119 mg/dL High 70-100 Blood [...] 8.8 mg/dL Normal 8.8-10.2 Liver Profile 01/26/2021 [facility] Outpatient Testi ng (Registration) [address] [place] [address] [phone] Ast/Sgot 13 U/L Normal 7-37 Alt/SGPT 26 U/L Normal 12-78 Alkaline Phosphatase 85 U/L Normal 45-117 Bilirubin,Total 0.6 mg/dL Normal 0.2-1.0 Bilirubin,Direct 0.1 mg/dL Normal 0.0-0.2 Total Protein 7.0 GM/DL Normal 6.4-8.2 Albumin 3.3 GM/DL Normal 3.2-5.2 Albumin/Globulin Ratio 0.9 Low 1.2-2.2 Cardiac Marker Panel 01/26/2021 [facility] Outpatient Test ing (Registration) [address] [place] [address] [phone] CPK Creatine Phosphokinase 97 U/L Normal 26-19 2 CK-MB Value Mass 1.7 NG/ML Normal <3.6 MB/CK Relative Index 1.75 Normal < Or =4 3 Troponin I < 0.02 NG/ML Normal < 0.10 4 Laboratory test finding 01/26/2021 [facility] Outpatient T esting (Registration) [address] [place] [address] [phone] Ammonia 13 uMOL/L Normal <32 Lactic Acid Sepsis Protocol 1.6 mmol/L Normal 0.4-2.0 5 Laboratory test finding 01/26/2021 [facility] Outpatient T esting (Registration) [address] [place] [address] [phone] Bedside Glucose 126 mg/dL High 83-110 CBC With Differential 01/01/[address] [address] [phone] White Blood Count 8.4 10 Normal 4.0-10.0 [...] 36.0-66.0 Lymph % 31.0 % Normal 24.0-44.0 [place] % 9.4 % High 2.0-8.0 Eos % 4.3 % High 0.0-3.0 Baso % 1.1 % High 0.0-1.0 Immature Granulocyte % 0.4 % Normal 0-3.0 Nucleated Red Blood Cell % 0.0 % Normal 0-0 Neutrophils # 4.6 10 Normal 1.5-8.5 Lymph # 2.6 10 Normal 1.5-5.0 [place] # 0.8 10 Normal 0.0-0.8 Eos # 0.4 10 Normal 0.0-0.5 Baso # 0.1 10 Normal 0.0-0.2 Laboratory test finding 01/01/[address] [address] [phone] Ferritin 46 NG/ML Normal 8-252 Total Iron Binding Capacit 01/01/[address] [address] [phone] Iron (Fe) 70 g/dL Normal 50-170 Total Iron Binding Capacity 354 g/dL Normal 250-450 Percent Saturation 19.8 % Normal 13.2-45.0 Laboratory test finding 01/01/[address] [address] [phone] Vitamin B12 Level 459 pg/mL Normal 247-911 6 Total 25(Oh) Vitamin D 61.3 NG/ML Normal 30.0-100.0 FT4&TSH Panel 01/01/2021 [facility] n[facility] [address] [place] [address] [phone] Thyroid Stimulating Hormone 2.280 uIU/ML Normal 0. 358-3.740 Free T4 0.75 ng/dL Low 0.76-1.46 Comprehensive Metabolic Profil 01/01/[address] [address] [phone] Glucose, Fasting 93 mg/dL Normal 70-100 Blood [...] 1.2 Normal 1.2-2.2 Laboratory test finding 11/20/2020 [facility] Outpatient T esting (Registration) [address] [place] [address] [phone] [place] Level 0.54 mEq/L Low 0.60-1.20 Laboratory test finding 09/30/2020 [facility] Outpatient T esting (Registration) [address] [place] [address] [phone] Magnesium Level 2.9 mg/dL High 1.8-2.4 [place] Level 0.64 mEq/L Normal 0.60-1.20 1 A [...] Little GFR Left ESRD GFR <15 on RN IV THERAPY 3 DIAGNOSIS CRITERIA MMB ng/ml Relative Index (RI) NON-AMI < or = 5 N/A MANCUSO ZONE > 5 < or = 4 AMI > 5 > 4 4 Troponin I Reference Interva l for [employer] [place] LOCI: 99th Percentile= 0.00-0.045 ng/ml Risk Stratification: [...] Little GFR Left ESRD GFR <15 on RN IV THERAPY Procedures Date Code Description Status 02/17/2021 15861 Trans Care SRV Aft DC W/I 14D, C omm W/I 2 Dys Med Decs Completed 01/03/2021 04950 Office/Outpatient Established Mo d MDM 30-39 Min Completed 11/19/2020 78448 Office/Outpatient Established Mo d MDM 30-39 Min Completed Medical Devices Description No Information Available Encounters Type Date Location Provider Dx Diagnosis Office Visit 02/17/2021 10:20a [facility] CAIT Kearns K52.89 Other specified noninfective gastroenteritis and colitis F31.9 Bipolar disorder, unspecifie d Office Visit 01/03/2021 10:00a [facility] CAIT Kearns F31.9 Bipolar disorder, unspecifie d E03.9 Hypothyroidism, unspecified E55.9 Vitamin D deficiency, unspec ified R25.1 Tremor, unspecified Office Visit 11/19/2020 8:00a [facility] CAIT Kearns R10.813 Right lower quadrant abdomin al tenderness W10.8xxA Fall (on) (from) other stair s and steps, initial encounter F31.9 Bipolar disorder, unspecifie d Office Visit 09/30/2020 2:20p [facility] CAIT Kearns Z00.00 Encntr for general adult med ical exam w/o abnormal findings E03.9 Hypothyroidism, unspecified F31.9 Bipolar disorder, unspecifie d E55.9 Vitamin D deficiency, unspec ified M54.17 Radiculopathy, lumbosacral r egion R25.1 Tremor, unspecified Assessments Date Code Description Provider 02/17/2021 K52.89 Other specified noninfective gas troenteritis and colitis CAIT Kearns 02/17/2021 F31.9 Bipolar disorder, unspecified St even CAIT Mahajan 01/03/2021 F31.9 Bipolar disorder, unspecified St even CAIT Mahajan 01/03/2021 E03.9 Hypothyroidism, unspecified CAIT Contreras 01/03/2021 E55.9 Vitamin D deficiency, unspecifie d [...] - CAIT Kearns at [facility] 02/17/2021 - CAIT Kearns* K52.89 Other [...] hip pain. Please eval and treat. Closed [address] [place] [address] [id number] [phone]
--- OUTSIDE RECORDS SUMMARY | 2021-03-31 14:34 | CCD | Continuity of Care Document ---
Author Author Rachel RAY Organization Unknown Address [address] [place] [address] 6 [address] [place] [address] Phone [phone] Care Team Providers Care Security Systems Engineer Name Role Phone Temitope Murillo D.O. AUTM Chapincito Hardy MD AUTM [phone] [facility] AUTM [phone] Jose Benton MD AUTM [phone] [facility] AUTM [phone] [facility] AUTM Beth Morgan M.D. AUTM [phone] [facility] AUTM [phone] [facility] AUTM [phone] Problems Active Problems Provider Date Moderate recurrent [...] frequent falls. [place] KlineOLm 07/18/2020 Ergocalciferol 1.25mg (18199 Ut) C apsules take 1 weekly until [...] Daily Maximum Daily Dose One Tablet Unknown [place] Carbonate 150mg Capsules 1 cap by mouth [...] on an empty stomach 90tabs [place] KlineOLm [place] Carbonate 300mg Capsules Take One Capsule By [...] F O2 % BldC Oximetry 99 % [place] Body Weight 100 lb 02/17/2021 10:27am BP Systolic 128 mmHg BP Diastolic 72 mmHg Height 59.6 inches 4'11.60" Weight 156.25 lb BMI (Body Mass Index) 30.9 kg/m2 Heart Rate 99 /min Respiratory Rate 18 /min Body Temperature 98.6 F O2 % BldC Oximetry 96 % [place] Body Weight 100 lb Results Test Acquired Date Facility Test Result H/L Range Note Ua W/ Reflex To Culture 01/26/2021 [facility] Outpatient T madyson (Registration) [address] [place] [address] [phone] Appearance, Urine RFX CLEAR Normal Clear Color, Urine RFX STRAW Normal Yellow PH,Urine RFX 7.0 units Normal 5.0-9.0 Specific [place] Ur Auto RFX 1.003 Normal 1.002-1.035 Protein, [...] /LPF Normal 0-1 Laboratory test finding 01/26/2021 [facility] Outpatient T esting (Registration) [address] [place] [address] [phone] Bedside Glucose 126 mg/dL High 83-110 Laboratory test finding 01/26/2021 [facility] Outpatient T esting (Registration) [address] [place] [address] [phone] Platelet Estimate NORMAL Normal Normal Differential 01/26/2021 [facility] Outpatient Testi ng (Registration) [address] [place] [address] [phone] Neutrophils 85 % High 28-66 Bands 2 % Normal < 11 Lymphocytes 6 % Low 16-44 Monocytes 7 % High 0-5 Platelet Clumps SMALL AMT Normal CBC With Differential 01/26/2021 [facility] Outpatient Nirali ting (Registration) [address] [place] [address] [phone] White Blood Count 19.8 10 High 4.0-10.0 [...] % Normal 0-0 Laboratory test finding 01/26/2021 [facility] Outpatient T esting (Registration) [address] [place] [address] [phone] Osmolality Serum 296 MOSM/KG Normal 280-301 Thyroid Stimulating Hormone 1.400 uIU/ML Normal 0.358-3.740 Basic Metabolic Profile 01/26/2021 [facility] Outpatient T esting (Registration) [address] [place] [address] [phone] Glucose, Fasting 119 mg/dL High 70-100 Blood [...] 8.8 mg/dL Normal 8.8-10.2 Liver Profile 01/26/2021 [facility] Outpatient Testi ng (Registration) [address] [place] [address] [phone] Ast/Sgot 13 U/L Normal 7-37 Alt/SGPT 26 U/L Normal 12-78 Alkaline Phosphatase 85 U/L Normal 45-117 Bilirubin,Total 0.6 mg/dL Normal 0.2-1.0 Bilirubin,Direct 0.1 mg/dL Normal 0.0-0.2 Total Protein 7.0 GM/DL Normal 6.4-8.2 Albumin 3.3 GM/DL Normal 3.2-5.2 Albumin/Globulin Ratio 0.9 Low 1.2-2.2 Cardiac Marker Panel 01/26/2021 [facility] Outpatient Test ing (Registration) [address] [place] [address] [phone] CPK Creatine Phosphokinase 97 U/L Normal 26-19 2 CK-MB Value Mass 1.7 NG/ML Normal <3.6 MB/CK Relative Index 1.75 Normal < Or =4 3 Troponin I < 0.02 NG/ML Normal < 0.10 4 Laboratory test finding 01/26/2021 [facility] Outpatient T esting (Registration) [address] [place] [address] [phone] Ammonia 13 uMOL/L Normal <32 Lactic Acid Sepsis Protocol 1.6 mmol/L Normal 0.4-2.0 5 Venous Blood Gas 01/26/2021 [facility] Outpatient Testi ng (Registration) [address] [place] [address] [phone] Venous PH 7.350 units Normal 7.330-7.430 Venous Partial Pressure Co2 46.8 mmHg Normal 38.0-50.0 Venous Partial Pressure O2 51.0 mmHg High 30.0-50.0 Venous Total Co2 26.7 mEq/L Normal 24.0-28.0 Venous Hco3 25.3 mEq/L Normal 23.0-27.0 Venous Base Excess -0.7 Normal -2.0-2.0 Venous Standard Hco3 23.7 mEq/L Normal Venous O2 Saturation 86.5 % High 60.0-80.0 CBC With Differential 01/01/[address] [address] [phone] White Blood Count 8.4 10 Normal 4.0-10.0 [...] 36.0-66.0 Lymph % 31.0 % Normal 24.0-44.0 [place] % 9.4 % High 2.0-8.0 Eos % 4.3 % High 0.0-3.0 Baso % 1.1 % High 0.0-1.0 Immature Granulocyte % 0.4 % Normal 0-3.0 Nucleated Red Blood Cell % 0.0 % Normal 0-0 Neutrophils # 4.6 10 Normal 1.5-8.5 Lymph # 2.6 10 Normal 1.5-5.0 [place] # 0.8 10 Normal 0.0-0.8 Eos # 0.4 10 Normal 0.0-0.5 Baso # 0.1 10 Normal 0.0-0.2 Laboratory test finding 01/01/[address] [address] [phone] Ferritin 46 NG/ML Normal 8-252 Total Iron Binding Capacit 01/01/[address] [address] [phone] Iron (Fe) 70 g/dL Normal 50-170 Total Iron Binding Capacity 354 g/dL Normal 250-450 Percent Saturation 19.8 % Normal 13.2-45.0 Laboratory test finding 01/01/[address] [address] [phone] Vitamin B12 Level 459 pg/mL Normal 247-911 6 Total 25(Oh) Vitamin D 61.3 NG/ML Normal 30.0-100.0 FT4&TSH Panel 01/01/2021 [facility] nter [address] [place] [address] [phone] Thyroid Stimulating Hormone 2.280 uIU/ML Normal 0. 358-3.740 Free T4 0.75 ng/dL Low 0.76-1.46 Comprehensive Metabolic Profil 01/01/[address] [address] [phone] Glucose, Fasting 93 mg/dL Normal 70-100 Blood [...] 1.2 Normal 1.2-2.2 Laboratory test finding 11/20/2020 [facility] Outpatient T esting (Registration) [address] [place] [address] [phone] [place] Level 0.54 mEq/L Low 0.60-1.20 Laboratory test finding 09/30/2020 [facility] Outpatient T esting (Registration) [address] [place] [address] [phone] Magnesium Level 2.9 mg/dL High 1.8-2.4 [place] Level 0.64 mEq/L Normal 0.60-1.20 1 A [...] Little GFR Left ESRD GFR <15 on ELECTRIC WHEELCHAIR REPAIRER 3 DIAGNOSIS CRITERIA MMB ng/ml Relative Index (RI) NON-AMI < or = 5 N/A MANCUSO ZONE > 5 < or = 4 AMI > 5 > 4 4 Troponin I Reference Interva l for [employer] [place] LOCI: 99th Percentile= 0.00-0.045 ng/ml Risk Stratification: [...] Little GFR Left ESRD GFR <15 on ELECTRIC WHEELCHAIR REPAIRER Procedures Date Code Description Status 02/24/2021 36943 Office/Outpatient Established Lo w MDM 20-29 Min Completed 02/17/2021 34790 Trans Care SRV Aft DC W/I 14D, C omm W/I 2 Dys Med Decs Completed 01/03/2021 84749 Office/Outpatient Established Mo d MDM 30-39 Min Completed 11/19/2020 74338 Office/Outpatient Established Mo d MDM 30-39 Min Completed Medical Devices Description No Information Available Encounters Type Date Location Provider Dx Diagnosis Office Visit 02/24/2021 1:00p Family Medicine [facility] CAIT Kearns S20.20xA Contusion of thorax, unspeci fied, initial encounter Y92.001 Dining room of [facility] residence as place Office Visit 02/17/2021 10:20a Family [facility] CAIT Kearns K52.89 Other specified noninfective [...] Ray 01/03/2021 E03.9 Hypothyroidism, unspecified [place] en D CAIT Ray 01/03/2021 E55.9 Vitamin D deficiency, unspecifie d Kirk CAIT Mahajan 01/03/2021 R25.1 Tremor, unspecified CAIT Nichols 11/19/2020 R10.813 Right lower quadrant abdominal t enderness CAIT Kearns 11/19/2020 W10.8xxA Fall (on) (from) other stairs an d steps, initial encounter CAIT Kearns 11/19/2020 F31.9 Bipolar disorder, unspecified St even D CAIT Ray 09/30/2020 Z00.00 Encounter for genera l [...] 04/09/2021 10:20 am - CAIT Kearns at [facility] Functional Status Description No Information Available Mental Status Description No Information Available Referrals Refer to Reason for Referral Status Appt Date [facility] 79 year old fema le with low back and left hip pain. Please eval and treat. Closed [address] [place] [address] [phone]
--- OUTSIDE RECORDS SUMMARY | 2021-03-31 14:35 | CCD | Continuity of Care Document ---
Author Author Rachel RAY Organization Unknown Address [address] [place] [address] 6 [address] [place] [address] Phone [phone] Care Team Providers Care Currency Examiner Name Role Phone Temitope Murillo D.O. AUTM [phone] Chapincito Hardy MD AUTM [phone] [facility] AUTM [phone] Jose Benton MD AUTM [phone] [facility] AUTM [phone] [facility] AUTM Beth Morgan M.D. AUTM [phone] [facility] AUTM [phone] [facility] AUTM [phone] Problems Active Problems Provider Date Moderate recurrent [...] frequent falls. Brooklyn KlineOLm 07/18/2020 Ergocalciferol 1.25mg (20425 Ut) C apsules take 1 weekly until [...] mouth every day 90tabs Brooklyn KlineO. 11/21/2018 Lamotrigine 150mg Tablets 1 and 1/2 tabs (225 mg total) by mouth daily Unknown Amphetamine-Dextroamphetamine 20mg Tablets Take One Tablet By Mouth Daily Maximum Daily Dose One Tablet Unknown Magnesium Oxide 400mg Tablets 1 tab by mouth once a day Unknown [place] Carbonate 150mg Capsules 1 cap by mouth [...] an empty stomach 90tabs Temitope Murillo D.O. Viibryd 40mg Tablets Take One Tablet By Mouth Once A Day With Food Unknown [place] Carbonate 300mg Capsules Take One Capsule By Mouth in the evening Unknown Medications Administered in Office Medication SIG Qnty Indications Ordering Provider Date Covid-19 vaccine, Unspecified Inj ection Unknown 07/26/2020 Covid-19 vaccine, Unspecified Inj ection Unknown 06/28/2020 Immunizations Description No Information Available Vital Signs Date Vital Result Comment 01/03/2021 9:55am BP Systolic 132 mmHg BP Diastolic 68 mmHg Height 59.6 inches 4'11.60" Weight 154.12 lb BMI (Body Mass Index) 30.5 kg/m2 Heart Rate 78 /min Respiratory Rate 18 /min Body Temperature 99.1 F O2 % BldC Oximetry 97 % [place] Body Weight 100 lb 11/19/2020 8:13am BP Systolic 148 mmHg BP Diastolic 80 mmHg Height 59.6 inches 4'11.60" Weight 150.38 lb BMI (Body Mass Index) 29.8 kg/m2 Heart Rate 81 /min Body Temperature 98.5 F O2 % BldC Oximetry 97 % [place] Body Weight 100 lb Results Test Acquired Date Facility Test Result H/L Range Note CBC With Differential 01/01/[address] [id number] [phone] White Blood Count 8.4 10 Normal 4.0-10.0 [...] 36.0-66.0 Lymph % 31.0 % Normal 24.0-44.0 [place] % 9.4 % High 2.0-8.0 Eos % 4.3 % High 0.0-3.0 Baso % 1.1 % High 0.0-1.0 Immature Granulocyte % 0.4 % Normal 0-3.0 Nucleated Red Blood Cell % 0.0 % Normal 0-0 Neutrophils # 4.6 10 Normal 1.5-8.5 Lymph # 2.6 10 Normal 1.5-5.0 [place] # 0.8 10 Normal 0.0-0.8 Eos # 0.4 10 Normal 0.0-0.5 Baso # 0.1 10 Normal 0.0-0.2 Laboratory test finding 01/01/[address] [address] [phone] Ferritin 46 NG/ML Normal 8-252 Total Iron Binding Capacit 01/01/[address] [address] [phone] Iron (Fe) 70 g/dL Normal 50-170 Total Iron Binding Capacity 354 g/dL Normal 250-450 Percent Saturation 19.8 % Normal 13.2-45.0 Laboratory test finding 01/01/[address] [address] [phone] Vitamin B12 Level 459 pg/mL Normal 247-911 1 Total 25(Oh) Vitamin D 61.3 NG/ML Normal 30.0-100.0 FT4&TSH Panel 01/01/2021 [facility] nter [address] [place] [address] [phone] Thyroid Stimulating Hormone 2.280 uIU/ML Normal 0. 358-3.740 Free T4 0.75 ng/dL Low 0.76-1.46 Comprehensive Metabolic Profil 01/01/[address] [address] [phone] Glucose, Fasting 93 mg/dL Normal 70-100 Blood Urea Nitrogen 19 mg/dL High 7-18 Creatinine For GFR 1.14 mg/dL Normal 0.55-1.30 Glomerular Filtration Rate 48.9 Normal >39 2 Sodium Level 143 mEq/L Normal [...] 1.2 Normal 1.2-2.2 Laboratory test finding 11/20/2020 [facility] Outpatient T esting (Registration) [address] [place] [address] [phone] [place] Level 0.54 mEq/L Low 0.60-1.20 Laboratory test finding 09/30/2020 [facility] Outpatient T esting (Registration) [address] [place] [address] [phone] Magnesium Level 2.9 mg/dL High 1.8-2.4 [place] Level 0.64 mEq/L Normal 0.60-1.20 1 VITAMIN B12 NORMAL RANGE NORMAL 247 - 911 PG/ML INDETERMINATE 211 - 246 PG/ML DEFICIENT LESS THAN 211 PG/ML 2 Units are mL/min/1.73 m2 Chronic Kidney Disease Staging per NKF: Stage I & II GFR >=60 Normal to Mildly Decreased Stage III GFR 30-59 Moderately Decreased Stage IV GFR 15-29 Severely Decreased Stage V GFR <15 Very Little GFR Left ESRD GFR <15 on FLIGHT DIRECTOR Procedures Date Code Description Status 11/19/2020 19528 Office/Outpatient Established Mo d MDM 30-39 Min Completed 07/15/2020 03814 Office/Outpatient Established Lo w MDM 20-29 Min Completed Medical Devices Description No Information Available Encounters Type Date Location Provider Dx Diagnosis Office Visit 11/19/2020 8:00a [facility] CAIT Kearns R10.813 Right lower quadrant abdomin al tenderness W10.8xxA Fall (on) (from) other stair s and steps, initial encounter F31.9 Bipolar disorder, unspecifie d Office Visit 09/30/2020 2:20p [facility] CAIT Reid Z00.00 Encntr for general adult med ical exam w/o abnormal findings E03.9 Hypothyroidism, unspecified F31.9 Bipolar disorder, unspecifie d E55.9 Vitamin D deficiency, unspec ified M54.17 Radiculopathy, lumbosacral r egion R25.1 Tremor, unspecified Office Visit 07/15/2020 10:00a [facility] CAIT Reid S00.03xA Contusion of scalp, initial encounter S50.01xA Contusion of right elbow, in itial encounter Y92.[address] in single-family ( private) house as place Assessments Date Code Description Provider 01/03/2021 F31.9 Bipolar disorder, unspecified St even CAIT Mahajan 01/03/2021 E03.9 Hypothyroidism, unspecified Chase en D CAIT Ray 01/03/2021 E55.9 Vitamin D deficiency, unspecifie d CAIT Kearns 01/03/2021 R25.1 Tremor, unspecified Kirk D Elda lewis, CAIT 11/19/2020 R10.813 Right lower quadrant abdominal t enderness CAIT Kearns 11/19/2020 W10.8xxA Fall (on) (from) other stairs an d steps, initial encounter CAIT Kearns 11/19/2020 F31.9 Bipolar disorder, unspecified St even D CAIT Ray 09/30/2020 Z00.00 Encounter for genera l adult medical examination without abnormal findings CAIT Kearns 09/30/2020 E03.9 Hypothyroidism, unspecified Chase en D CAIT Ray 09/30/2020 F31.9 Bipolar disorder, unspecified St even D CAIT Ray 09/30/2020 E55.9 Vitamin D deficiency, unspecifie d Kirk CAIT Mahajan 09/30/2020 M54.17 Radiculopathy, lumbosacral regio n CAIT Kearns 09/30/2020 R25.1 Tremor, unspecified Kirk D Tie joshua, PA 07/15/2020 S00.03xA Contusion of scalp, initial enco unter CAIT Kearns 07/15/2020 S50.01xA Contusion of right elbow, initia l encounter CAIT Kearns 07/15/[address] in [facility] house as the place of occurrence of the external cause ACIT Kearns Plan of Treatment Future Appointment(s):* 04/09/2021 10:20 am - CAIT Kearns at [facility] 01/03/2021 - CAIT Kearns* F31.9 Bipolar disorder, unspecified* Comments:* Continue with the recommendations of psychiatry. Appears stable with your current regimen. * E03.9 Hypothyroidism, unspecified* Comments:* Your thyroid is currently replaced. Continue your current medication at its current dose. * Follow up:* 3 months with me. * E55.9 Vitamin D deficiency, unspecified* Comments:* For the time being, continue your current supplementation. You are currently appropriately replaced. * R25.1 Tremor, unspecified* Comments:* Continue with the recommendations of neurology. Functional Status Description No Information Available Mental Status Description No Information Available Referrals Refer to Reason for Referral Status Appt Date [facility] 79 year old fema le with low back and left hip pain. Please eval and treat. Closed [address] [place] [address] [phone] [facility] 79 year old female in need o f at home PT due to weakness. Please eval and treat. Closed [address] [place] [address] [phone]
--- OUTSIDE RECORDS SUMMARY | 2021-03-31 14:35 | CCD ---
Author Author [facility] Organization [facility] Address Unknown Phone Unavailable Care Team Providers Care Track Watchman Name Role Phone ELIAZAR COLVIN Unavailable PROBLEMS Type Condition ICD9-CM Code NFO27-NO Code Onset Dates Condition S tatus W/U Status Risk SNOMED Code Notes Problem Chronic kidney disease, stage 3 (moderate) N18.3 Active confirmed 404288326 Renal function has returned to her basel ine. She's had some increased depression. Again I [...] has a degree of nephrogenic diabetes insipidus. Problem Vitamin D deficiency, unspecified E55.9 Active con firmed [id number] She is on [id number] vitamin D supplementation. Problem Essential (primary) hypertension I10 Active conf irmed [id number] Her blood pressure is under adequate control on her current antihypertensive regimen. Continue low-sodium diet. ALLERGIES Allergen (clinical drug ingredient) Drug/Non Drug Allergy do cumented on EMR Reaction Allergy Type Onset Date Status Bee stings Unknown Non Drug Allergy Active Sulfa Unknown Drug Allergy Active doxycycline Doxycycline itching Drug Allergy Active ENCOUNTERS from 1941 to 2021-01-23 Encounter Location Date Provider Diagnosis .[facility] [address] [facility] [address] [place], [place] [id number] Jan, ELIAZAR COLVIN IMMUNIZATIONS Vaccine Route Administration Date [...] Notes Start Da te End Date Status Vitamin D (Ergocalciferol) 1.25 MG (27095 UT) 1 capsule Orally weekly Active [place] Carbonate 300 MG 1 capsule pm Orally plus 150 mg am Active Magnesium 400 MG 1 tablet with a meal Orally Once a day Active Viibryd 40 MG 1 tablet with food Orally Once a day Active Aspirin 81 MG 1 tablet Orally Once a day Active Osteo Bi-Flex Regular Strength 250-200 MG 1 tablet wit h a meal Orally Once a day for 30 day(s) Active amLODIPine Besylate 5 MG 1 tablet Orally Once a day for 90 days Feb, Active Vitamin B Complex - Orally Activ e Adderall 20 MG 1 tablet in the morning Orally Once a day Active Levothyroxine Sodium 50 MCG 1 tablet on an empty stoma ch in the morning Orally Once a day Active Furosemide 40 MG 1 tablet Orally Once a day prn PRN Active LaMICtal 150 MG 1 tablet Orally Once a day Active Latuda 40 MG 1 tablet Orally Once a day Active PROCEDURES No Information RESULTS No Results REASON FOR VISIT No Urine MEDICAL (GENERAL) HISTORY Type Description Date Medical [...] Medical History Other MD: Pepito Licea MD Medical History Pt had Moderna vaccine, completed Jul [address] Salinas-Cardiology Surgical History Hysterectomy vaginal, ovary intact Surgical History Breast implants Surgical History Cataract surgery Surgical History Basal cell removed from nose, faith, fo rehead and above lip Surgical History Eyelid surgery Surgical History Colonoscopy Surgical History EDC- left petersen- BCC Surgical History BCC removal from face x 2 Surgical History Basal cell removal forehead Goals Section No Information Health Concerns No Information MEDICAL EQUIPMENT No Information MENTAL STATUS No Information FUNCTIONAL STATUS No Information ASSESSMENTS No Information PLAN OF TREATMENT Medication Medication Name Sig Start Date Stop Date Furosemide 40 MG 1 tablet Orally Once a day prn Insurance Providers Payer Name Payer Address Payer Phone Insured Name Patient Relati onship to Insured Coverage Start Date Coverage End Date UMR [address] [address] [facility] [id number] SOFI SULLIVAN MEDICARE PRIMARY [address] [facility] [address] MURALI SULLIVAN
--- OUTSIDE RECORDS SUMMARY | 2021-03-31 14:35 | CCD | Continuity of Care Document ---
Author Author Rachel MURILLO D.O. Organization Unknown Address [address] [place] [address] Phone [phone] Care Team Providers Care Producer Arborist Manager Name Role Phone Temitope Murillo D.O. AUTM [phone] Chapincito Hardy MD AUTM [phone] [facility] AUTM [phone] Jose Benton MD AUTM [phone] [facility] AUTM [phone] [facility] AUTM Beth Morgan M.D. AUTM [phone] [facility] AUTM [phone] [facility] AUTM [phone] Problems Active Problems Provider Date Moderate recurrent [...] 1 as directed dx: Dysarthria, frequent falls. Temitope Murillo D.O. 07/18/2020 Ergocalciferol 1.25mg (91981 Ut) C apsules take 1 weekly until gone. 12caps Brooklyn KlineOLm 05/14/2020 Physical Therapy Right leg and Balance/Posture [...] tab by mouth once a day Unknown [place] Carbonate 150mg Capsules 1 cap by mouth [...] Mouth Once A Day With Food Unknown [place] Carbonate 300mg Capsules Take One Capsule By [...] F O2 % BldC Oximetry 97 % [place] Body Weight 100 lb 11/19/2020 8:13am BP Systolic 148 mmHg BP Diastolic 80 mmHg Height 59.6 inches 4'11.60" Weight 150.38 lb BMI (Body Mass Index) 29.8 kg/m2 Heart Rate 81 /min Body Temperature 98.5 F O2 % BldC Oximetry 97 % [place] Body Weight 100 lb Results Test Acquired Date Facility Test Result H/L Range Note Venous Blood Gas 01/26/2021 [facility] Outpatient Testi ng (Registration) [address] [place] [address] [phone] Venous PH 7.350 units Normal 7.330-7.430 Venous Partial Pressure Co2 46.8 mmHg Normal 38.0-50.0 Venous Partial Pressure O2 51.0 mmHg High 30.0-50.0 Venous Total Co2 26.7 mEq/L Normal 24.0-28.0 Venous Hco3 25.3 mEq/L Normal 23.0-27.0 Venous Base Excess -0.7 Normal -2.0-2.0 Venous Standard Hco3 23.7 mEq/L Normal Venous O2 Saturation 86.5 % High 60.0-80.0 Ua W/ Reflex To Culture 01/26/2021 [facility] Outpatient T esting (Registration) [address] [place] [address] [phone] Appearance, Urine RFX CLEAR Normal Clear Color, Urine RFX STRAW Normal Yellow PH,Urine RFX 7.0 units Normal 5.0-9.0 Specific [place] Ur Auto RFX 1.003 Normal 1.002-1.035 Protein, [...] /LPF Normal 0-1 Laboratory test finding 01/26/2021 [facility] Outpatient T esting (Registration) [address] [place] [address] [phone] Platelet Estimate NORMAL Normal Normal Differential 01/26/2021 [facility] Outpatient Testi ng (Registration) [address] [place] [address] [phone] Neutrophils 85 % High 28-66 Bands 2 % Normal < 11 Lymphocytes 6 % Low 16-44 Monocytes 7 % High 0-5 Platelet Clumps SMALL AMT Normal CBC With Differential 01/26/2021 [facility] Outpatient Nirali ting (Registration) [address] [place] [address] [phone] White Blood Count 19.8 10 High 4.0-10.0 [...] % Normal 0-0 Laboratory test finding 01/26/2021 [facility] Outpatient T esting (Registration) [address] [place] [address] [phone] Osmolality Serum 296 MOSM/KG Normal 280-301 Thyroid Stimulating Hormone 1.400 uIU/ML Normal 0.358-3.740 Basic Metabolic Profile 01/26/2021 [facility] Outpatient T esting (Registration) [address] [place] [address] [phone] Glucose, Fasting 119 mg/dL High 70-100 Blood [...] 8.8 mg/dL Normal 8.8-10.2 Liver Profile 01/26/2021 [facility] Outpatient Testi ng (Registration) [address] [place] [address] [phone] Ast/Sgot 13 U/L Normal 7-37 Alt/SGPT 26 U/L Normal 12-78 Alkaline Phosphatase 85 U/L Normal 45-117 Bilirubin,Total 0.6 mg/dL Normal 0.2-1.0 Bilirubin,Direct 0.1 mg/dL Normal 0.0-0.2 Total Protein 7.0 GM/DL Normal 6.4-8.2 Albumin 3.3 GM/DL Normal 3.2-5.2 Albumin/Globulin Ratio 0.9 Low 1.2-2.2 Cardiac Marker Panel 01/26/2021 [facility] Outpatient Test ing (Registration) [address] [place] [address] [phone] CPK Creatine Phosphokinase 97 U/L Normal 26-19 2 CK-MB Value Mass 1.7 NG/ML Normal <3.6 MB/CK Relative Index 1.75 Normal < Or =4 3 Troponin I < 0.02 NG/ML Normal < 0.10 4 Laboratory test finding 01/26/2021 [facility] Outpatient T esting (Registration) [address] [place] [address] [phone] Ammonia 13 uMOL/L Normal <32 Lactic Acid Sepsis Protocol 1.6 mmol/L Normal 0.4-2.0 5 Laboratory test finding 01/26/2021 [facility] Outpatient T esting (Registration) [address] [place] [address] [phone] Bedside Glucose 126 mg/dL High 83-110 CBC With Differential 01/01/[address] [address] [phone] White Blood Count 8.4 10 Normal 4.0-10.0 [...] 36.0-66.0 Lymph % 31.0 % Normal 24.0-44.0 [place] % 9.4 % High 2.0-8.0 Eos % 4.3 % High 0.0-3.0 Baso % 1.1 % High 0.0-1.0 Immature Granulocyte % 0.4 % Normal 0-3.0 Nucleated Red Blood Cell % 0.0 % Normal 0-0 Neutrophils # 4.6 10 Normal 1.5-8.5 Lymph # 2.6 10 Normal 1.5-5.0 [place] # 0.8 10 Normal 0.0-0.8 Eos # 0.4 10 Normal 0.0-0.5 Baso # 0.1 10 Normal 0.0-0.2 Laboratory test finding 01/01/[address] [address] [phone] Ferritin 46 NG/ML Normal 8-252 Total Iron Binding Capacit 01/01/2021 [facility] [address] [place] [address] [phone] Iron (Fe) 70 g/dL Normal 50-170 Total Iron Binding Capacity 354 g/dL Normal 250-450 Percent Saturation 19.8 % Normal 13.2-45.0 Laboratory test finding 01/01/[address] [address] [phone] Vitamin B12 Level 459 pg/mL Normal 247-911 6 Total 25(Oh) Vitamin D 61.3 NG/ML Normal 30.0-100.0 FT4&TSH Panel 01/01/2021 [facility] nter [address] [place] [address] [phone] Thyroid Stimulating Hormone 2.280 uIU/ML Normal 0. 358-3.740 Free T4 0.75 ng/dL Low 0.76-1.46 Comprehensive Metabolic Profil 01/01/[address] [address] [phone] Glucose, Fasting 93 mg/dL Normal 70-100 Blood [...] 1.2 Normal 1.2-2.2 Laboratory test finding 11/20/2020 [facility] Outpatient T madyson (Registration) [address] [place], [place] [address] [phone] [place] Level 0.54 mEq/L Low 0.60-1.20 Laboratory test finding 09/30/2020 [facility] Outpatient T madyson (Registration) [address] [place] [address] [phone] Magnesium Level 2.9 mg/dL High 1.8-2.4 [place] Level 0.64 mEq/L Normal 0.60-1.20 1 A [...] Little GFR Left ESRD GFR <15 on UTILITY TRACTOR OPERATOR 3 DIAGNOSIS CRITERIA MMB ng/ml Relative Index (RI) NON-AMI < or = 5 N/A [place] ZONE > 5 < or = 4 AMI > 5 > 4 4 Troponin I Reference Interva l for Siemens [place] LOCI: 99th Percentile= 0.00-0.045 ng/ml Risk Stratification: [...] Little GFR Left ESRD GFR <15 on UTILITY TRACTOR OPERATOR Procedures Date Code Description Status 01/03/2021 12342 Office/Outpatient Established Mo d MDM 30-39 Min Completed 11/19/2020 30951 Office/Outpatient Established Mo d MDM 30-39 Min Completed Medical Devices Description No Information Available Encounters Type Date Location Provider Dx Diagnosis Office Visit 01/03/2021 10:00a [facility] CAIT Reid F31.9 Bipolar disorder, unspecifie d E03.9 Hypothyroidism, unspecified E55.9 Vitamin D deficiency, unspec ified R25.1 Tremor, unspecified Office Visit 11/19/2020 8:00a [facility] CAIT Reid R10.813 Right lower quadrant abdomin al tenderness W10.8xxA Fall (on) (from) other stair s and steps, initial encounter F31.9 Bipolar disorder, unspecifie d Office Visit 09/30/2020 2:20p [facility] CAIT Reid Z00.00 Encntr for general adult med ical exam w/o abnormal findings E03.9 Hypothyroidism, unspecified F31.9 Bipolar disorder, unspecifie d E55.9 Vitamin D deficiency, unspec ified M54.17 Radiculopathy, lumbosacral r egion R25.1 Tremor, unspecified Assessments Date Code Description Provider 01/03/2021 F31.9 Bipolar disorder, unspecified St even D CAIT Rodrigues 01/03/2021 E03.9 Hypothyroidism, unspecified Chase en CAIT Mahajan 01/03/2021 E55.9 Vitamin D deficiency, unspecifie d CAIT Kearns 01/03/2021 R25.1 Tremor, unspecified Kirk D CAIT Kennedy 11/19/2020 R10.813 Right lower quadrant abdominal t enderness CAIT Kearns 11/19/2020 W10.8xxA Fall (on) (from) other stairs an d steps, initial encounter CAIT Kearns 11/19/2020 F31.9 Bipolar disorder, unspecified St even D CAIT Rodrigues 09/30/2020 Z00.00 Encounter for genera l adult medical examination without abnormal findings CAIT Kearns 09/30/2020 E03.9 Hypothyroidism, unspecified Chase en CAIT Mahajan 09/30/2020 F31.9 Bipolar disorder, unspecified St even D CATI Rodrigues 09/30/2020 E55.9 Vitamin D deficiency, unspecifie d Kirk CAIT Mahajan 09/30/2020 M54.17 Radiculopathy, lumbosacral regio n CAIT Kearns 09/30/2020 R25.1 Tremor, unspecified CAIT Nichols Plan of Treatment Future Appointment(s):* 04/09/2021 10:20 am - CAIT Kearns at [facility] 01/03/2021 - CAIT Kearns* F31.9 Bipolar disorder, [...] [facility] 79 year old femroshni le with low back and left hip pain. Please eval and treat. Closed [address] [place] [address] [phone]
--- OUTSIDE RECORDS SUMMARY | 2021-03-31 14:35 | CCD | Continuity of Care Document ---
Author Author Rachel RAY Organization Unknown Address [address] [place] [address] 6 [address] [place] [address] Phone [phone] Care Team Providers Care Supervisor Aircraft Maintenance Name Role Phone Temitope Murillo D.O. AUTM Chapincito Hardy MD AUTM [phone] [facility] AUTM [phone] Jose Benton MD AUTM [phone] [facility] AUTM [phone] [facility] AUTM [phone] Beth Morgan M.D. AUTM [phone] [facility] AUTM [phone] [facility] AUTM [phone] Problems Active Problems Provider Date Moderate recurrent [...] falls. Temitope Murillo D.O. 07/18/2020 Ergocalciferol 1.25mg (66630 Ut) C apsules take 1 weekly until [...] tab by mouth once a day Unknown [place] Carbonate 150mg Capsules 1 cap by mouth [...] Mouth Once A Day With Food Unknown [place] Carbonate 300mg Capsules Take One Capsule By [...] F O2 % BldC Oximetry 97 % [place] Body Weight 100 lb 11/19/2020 8:13am BP Systolic 148 mmHg BP Diastolic 80 mmHg Height 59.6 inches 4'11.60" Weight 150.38 lb BMI (Body Mass Index) 29.8 kg/m2 Heart Rate 81 /min Body Temperature 98.5 F O2 % BldC Oximetry 97 % [place] Body Weight 100 lb Results Test Acquired Date Facility Test Result H/L Range Note CBC With Differential 01/01/[address] [address] [phone] White Blood Count 8.4 10 Normal 4.0-10.0 [...] 36.0-66.0 Lymph % 31.0 % Normal 24.0-44.0 [place] % 9.4 % High 2.0-8.0 Eos % 4.3 % High 0.0-3.0 Baso % 1.1 % High 0.0-1.0 Immature Granulocyte % 0.4 % Normal 0-3.0 Nucleated Red Blood Cell % 0.0 % Normal 0-0 Neutrophils # 4.6 10 Normal 1.5-8.5 Lymph # 2.6 10 Normal 1.5-5.0 [place] # 0.8 10 Normal 0.0-0.8 Eos # 0.4 10 Normal 0.0-0.5 Baso # 0.1 10 Normal 0.0-0.2 Laboratory test finding 01/01/[address] [address] [phone] Ferritin 46 NG/ML Normal 8-252 Total Iron Binding Capacit 01/01/[address] [address] [phone] Iron (Fe) 70 g/dL Normal 50-170 Total Iron Binding Capacity 354 g/dL Normal 250-450 Percent Saturation 19.8 % Normal 13.2-45.0 Laboratory test finding 01/01/[address] [address] [phone] Vitamin B12 Level 459 pg/mL Normal 247-911 1 Total 25(Oh) Vitamin D 61.3 NG/ML Normal 30.0-100.0 FT4&TSH [facility] [address] [place] [address] [phone] Thyroid Stimulating Hormone 2.280 uIU/ML Normal 0. 358-3.740 Free T4 0.75 ng/dL Low 0.76-1.46 Comprehensive Metabolic Profil 01/01/[address] [address] [phone] Glucose, Fasting 93 mg/dL Normal 70-100 Blood [...] 1.2 Normal 1.2-2.2 Laboratory test finding 11/20/2020 [facility] Outpatient T esting (Registration) [address] [place] [address] [phone] [place] Level 0.54 mEq/L Low 0.60-1.20 Laboratory test finding 09/30/2020 [facility] Outpatient T esting (Registration) [address] [place] [address] [phone] Magnesium Level 2.9 mg/dL High 1.8-2.4 [place] Level 0.64 mEq/L Normal 0.60-1.20 1 VITAMIN [...] Little GFR Left ESRD GFR <15 on 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 OPERATOR Procedures Date Code Description Status 01/03/2021 53579 Office/Outpatient Established Mo d MDM 30-39 Min Completed 11/19/2020 71376 Office/Outpatient Established Mo d MDM 30-39 Min Completed 07/15/2020 27966 Office/Outpatient Established Lo w MDM 20-29 Min Completed Medical Devices Description No Information Available Encounters Type Date Location Provider Dx Diagnosis Office Visit 01/03/2021 10:00a [facility] CAIT Kearns F31.9 Bipolar disorder, unspecifie d E03.9 Hypothyroidism, unspecified E55.9 Vitamin D deficiency, unspec ified R25.1 Tremor, unspecified Office Visit 11/19/2020 8:00a [facility] CAIT Kearns R10.813 Right lower quadrant abdomin al tenderness W10.8xxA Fall (on) (from) other stair s and steps, initial encounter F31.9 Bipolar disorder, unspecifie d Office Visit 09/30/2020 2:20p [facility] CAIT Kearns Z00.00 Encntr for general adult med ical exam w/o abnormal findings E03.9 Hypothyroidism, unspecified F31.9 Bipolar disorder, unspecifie d E55.9 Vitamin D deficiency, unspec ified M54.17 Radiculopathy, lumbosacral r egion R25.1 Tremor, unspecified Office Visit 07/15/2020 10:00a [facility] CAIT Kearns S00.03xA Contusion of scalp, initial encounter S50.01xA Contusion of right elbow, in itial encounter Y92.[address] in single-family ( private) house as place Assessments Date Code Description Provider 01/03/2021 F31.9 Bipolar disorder, unspecified St even CAIT Mahajan 01/03/2021 E03.9 Hypothyroidism, unspecified [place] en CAIT [...] Mahajan 09/30/2020 F31.9 Bipolar disorder, unspecified St CAIT Eli 09/30/2020 E55.9 Vitamin D deficiency, unspecifie d CAIT Kearns 09/30/2020 M54.17 Radiculopathy, lumbosacral regio n CAIT Kearns 09/30/2020 R25.1 Tremor, unspecified CAIT Nichols 07/15/2020 S00.03xA Contusion of scalp, initial enco unter CAIT Kearns 07/15/2020 S50.01xA Contusion of right elbow, initia l encounter CAIT Kearns 07/15/[address] in [facility] e-family (private) house as the place of occurrence of the external cause CAIT Kearns Plan of Treatment Future Appointment(s):* 04/09/2021 10:20 am - CAIT Kearns at [facility] 01/03/2021 - CAIT Kearns* F31.9 Bipolar disorder, [...] to Reason for Referral Status Appt Date [facility] 79 year old fema le with low back and left hip pain. Please eval and treat. Closed [address] [place] [address] [phone] [facility] 79 year old female in need o f at home PT due to weakness. Please eval and treat. Closed [address] [place] [address] [phone]
--- OUTSIDE RECORDS SUMMARY | 2021-03-31 14:35 | CCD | Continuity of Care Document ---
Author Author Rachel MURILLO D.O. Organization Unknown Address [address] [place] [address] Phone [phone] Care Team Providers Care Senior Facilities Manager Name Role Phone Temitope Murillo D.O. AUTM [phone] Chapincito Hardy MD AUTM [phone] [facility] AUTM [phone] Jose Benton MD AUTM [phone] [facility] AUTM [phone] [facility] Program AUTM Beth Morgan M.D. AUTM [phone] [facility] AUTM [phone] [facility] AUTM [phone] Problems Active Problems Provider Date Moderate recurrent [...] falls. Temitope Murillo D.O. 07/18/2020 Ergocalciferol 1.25mg (52041 Ut) C apsules take 1 weekly until [...] tab by mouth once a day Unknown [place] Carbonate 150mg Capsules 1 cap by mouth [...] Mouth Once A Day With Food Unknown [place] Carbonate 300mg Capsules Take One Capsule By [...] F O2 % BldC Oximetry 97 % [place] Body Weight 100 lb 11/19/2020 8:13am BP Systolic 148 mmHg BP Diastolic 80 mmHg Height 59.6 inches 4'11.60" Weight 150.38 lb BMI (Body Mass Index) 29.8 kg/m2 Heart Rate 81 /min Body Temperature 98.5 F O2 % BldC Oximetry 97 % [place] Body Weight 100 lb Results Test Acquired Date Facility Test Result H/L Range Note Venous Blood Gas 01/26/2021 [facility] Outpatient Testi ng (Registration) [address] [place] [address] [phone] Venous PH 7.350 units Normal 7.330-7.430 Venous Partial Pressure Co2 46.8 mmHg Normal 38.0-50.0 Venous Partial Pressure O2 51.0 mmHg High 30.0-50.0 Venous Total Co2 26.7 mEq/L Normal 24.0-28.0 Venous Hco3 25.3 mEq/L Normal 23.0-27.0 Venous Base Excess -0.7 Normal -2.0-2.0 Venous Standard Hco3 23.7 mEq/L Normal Venous O2 Saturation 86.5 % High 60.0-80.0 Ua W/ Reflex To Culture 01/26/2021 [facility] Outpatient T esting (Registration) [address] [place] [address] [phone] Appearance, Urine RFX CLEAR Normal Clear Color, Urine RFX STRAW Normal Yellow PH,Urine RFX 7.0 units Normal 5.0-9.0 Specific [place] Ur Auto RFX 1.003 Normal 1.002-1.035 Protein, [...] /LPF Normal 0-1 Laboratory test finding 01/26/2021 [facility] Outpatient T esting (Registration) [address] [place] [address] [phone] Platelet Estimate NORMAL Normal Normal Differential 01/26/2021 [facility] Outpatient Testi ng (Registration) [address] [place] [address] [phone] Neutrophils 85 % High 28-66 Bands 2 % Normal < 11 Lymphocytes 6 % Low 16-44 Monocytes 7 % High 0-5 Platelet Clumps SMALL AMT Normal CBC With Differential 01/26/2021 [facility] Outpatient Nirali ting (Registration) [address] [place] [address] [phone] White Blood Count 19.8 10 High 4.0-10.0 [...] % Normal 0-0 Laboratory test finding 01/26/2021 [facility] Outpatient T esting (Registration) [address] [place] [address] [phone] Osmolality Serum 296 MOSM/KG Normal 280-301 Thyroid Stimulating Hormone 1.400 uIU/ML Normal 0.358-3.740 Basic Metabolic Profile 01/26/2021 [facility] Outpatient T esting (Registration) [address] [place] [address] [phone] Glucose, Fasting 119 mg/dL High 70-100 Blood [...] 8.8 mg/dL Normal 8.8-10.2 Liver Profile 01/26/2021 [facility] Outpatient Testi ng (Registration) [address] [place] [address] [phone] Ast/Sgot 13 U/L Normal 7-37 Alt/SGPT 26 U/L Normal 12-78 Alkaline Phosphatase 85 U/L Normal 45-117 Bilirubin,Total 0.6 mg/dL Normal 0.2-1.0 Bilirubin,Direct 0.1 mg/dL Normal 0.0-0.2 Total Protein 7.0 GM/DL Normal 6.4-8.2 Albumin 3.3 GM/DL Normal 3.2-5.2 Albumin/Globulin Ratio 0.9 Low 1.2-2.2 Cardiac Marker Panel 01/26/2021 [facility] Outpatient Test ing (Registration) [address] [place] [address] [phone] CPK Creatine Phosphokinase 97 U/L Normal 26-19 2 CK-MB Value Mass 1.7 NG/ML Normal <3.6 MB/CK Relative Index 1.75 Normal < Or =4 3 Troponin I < 0.02 NG/ML Normal < 0.10 4 Laboratory test finding 01/26/2021 [facility] Outpatient T esting (Registration) [address] [place] [address] [phone] Ammonia 13 uMOL/L Normal <32 Lactic Acid Sepsis Protocol 1.6 mmol/L Normal 0.4-2.0 5 Laboratory test finding 01/26/2021 [facility] Outpatient T esting (Registration) [address] [place] [address] [phone] Bedside Glucose 126 mg/dL High 83-110 CBC With Differential 01/01/[address] [address] [phone] White Blood Count 8.4 10 Normal 4.0-10.0 [...] 10 Normal 0.0-0.2 Laboratory test finding 01/01/[address] [address] [phone] Ferritin 46 NG/ML Normal 8-252 Total Iron Binding Capacit 01/01/2021 [facility] [address] [place] [address] [phone] Iron (Fe) 70 g/dL Normal 50-170 Total Iron Binding Capacity 354 g/dL Normal 250-450 Percent Saturation 19.8 % Normal 13.2-45.0 Laboratory test finding 01/01/[address] [address] [phone] Vitamin B12 Level 459 pg/mL Normal 247-911 6 Total 25(Oh) Vitamin D 61.3 NG/ML Normal 30.0-100.0 FT4&TSH Panel 01/01/2021 [facility] nter [address] [place] [address] [phone] Thyroid Stimulating Hormone 2.280 uIU/ML Normal 0. 358-3.740 Free T4 0.75 ng/dL Low 0.76-1.46 Comprehensive Metabolic Profil 01/01/[address] [address] [phone] Glucose, Fasting 93 mg/dL Normal 70-100 Blood [...] 1.2 Normal 1.2-2.2 Laboratory test finding 11/20/2020 [facility] Outpatient T madyson (Registration) [address] [place], [place] [address] [phone] [place] Level 0.54 mEq/L Low 0.60-1.20 Laboratory test finding 09/30/2020 [facility] Outpatient T madyson (Registration) [address] [place] [address] [phone] Magnesium Level 2.9 mg/dL High 1.8-2.4 [place] Level 0.64 mEq/L Normal 0.60-1.20 1 A [...] Little GFR Left ESRD GFR <15 on RADIOLOGICAL EQUIPMENT SPECIALIST 3 DIAGNOSIS CRITERIA MMB ng/ml Relative Index (RI) NON-AMI < or = 5 N/A MANCUSO ZONE > 5 < or = 4 AMI > 5 > 4 4 Troponin I Reference Interva l for Siemens [place] LOCI: 99th Percentile= 0.00-0.045 ng/ml Risk Stratification: [...] Little GFR Left ESRD GFR <15 on RADIOLOGICAL EQUIPMENT SPECIALIST Procedures Date Code Description Status 01/03/2021 20420 Office/Outpatient Established Mo d MDM 30-39 Min Completed 11/19/2020 51349 Office/Outpatient Established Mo d MDM 30-39 Min Completed Medical Devices Description No Information Available Encounters Type Date Location Provider Dx Diagnosis Office Visit 01/03/2021 10:00a [facility] CAIT Reid F31.9 Bipolar disorder, unspecifie d E03.9 Hypothyroidism, unspecified E55.9 Vitamin D deficiency, unspec ified R25.1 Tremor, unspecified Office Visit 11/19/2020 8:00a [facility] CAIT Reid R10.813 Right lower quadrant abdomin al tenderness W10.8xxA Fall (on) (from) other stair s and steps, initial encounter F31.9 Bipolar disorder, unspecifie d Office Visit 09/30/2020 2:20p [facility] CAIT Reid Z00.00 Encntr for general [...] Treatment Future Appointment(s):* 04/09/2021 10:20 am - CATI Kearns at [facility] 01/03/2021 - CAIT Kearns* F31.9 Bipolar [...] hip pain. Please eval and treat. Closed [address] [place] [address] [phone]
--- OUTSIDE RECORDS SUMMARY | 2021-03-31 14:35 | CCD ---
Author Author [facility] Organization [facility] Address Unknown Phone Unavailable Care Team Providers Care Faucets Assembler Name Role Phone KELLY MORA Unavailable PROBLEMS Type Condition ICD9-CM Code [id number] Code Onset Dates Condition S tatus W/U Status Risk SNOMED Code Notes Problem Chronic kidney disease, stage 3 (moderate) N18.3 Active confirmed [id number] Renal function has returned to her basel [...] D deficiency, unspecified E55.9 Active con firmed [id number] She is on eskv-lva-arwivxa vitamin D supplementation. Problem Essential (primary) hypertension I10 Active conf irmed 43070547 Her blood pressure is under adequate control [...] Location Date Provider Diagnosis .[facility] [address] [facility] [address] [place], [place] [id number] Jan, KELLY MORA Chronic Kidney Disea se Stage 3, GFR 59-45 N18.31 ; Essential (primary) hypertension I10 and Vitamin D deficiency, unspecified E55.9 IMMUNIZATIONS Vaccine Route Administration Date Status Influenza [...] REASON FOR REFERRAL No Information VITAL SIGNS Heart Rate 76 /min Jan, Weight 155.0 lbs Jan, Height 61.5 in Jan, BMI 28.81 kg/m2 Jan, Oximetry 99 % Jan, Blood pressure systolic 138 Jan, Blood pressure diastolic 76 Jan, MEDICATIONS Medication SIG (Take, Route, Frequency, Duration) Notes Start Da te End Date Status Vitamin D (Ergocalciferol) 1.25 MG (63469 UT) 1 capsule Orally weekly Active [place] Carbonate 300 MG 1 capsule pm Orally [...] a day Active PROCEDURES No Information RESULTS Component Value Reference Range CMP Reviewed date:01/23/2021 13:05:39 Interpretation: Performing Lab:[facility], ,[place]-[id number] ALBUMIN 3.7 3.4-5.0 BUN 19 7-18 CALCIUM 9.1 8.5-10.1 CREATININE 1.1 0.6-1.3 GFR NON-AFR.AM 50.92 >=60.00 GFR AFR.AM 61.61 >=60.00 SODIUM 140 135-145 POTASSIUM 4.5 3.6-5.2 CHLORIDE 106 100-108 CO2 31.2 21.0-32.0 GLUCOSE 104.0 70.0-110.0 TOTAL PROTEIN 7.7 6.4-8.2 T BILIRUBIN 0.30 0.20-1.00 AST 16 15-37 ALPI 96 46-116 ALTI 28 30-65 ANION GAP 3 5-15 PTH,INTACT Reviewed date:01/23/2021 13:25:36 Interpretation: Performing Lab:[facility], ,[facility] PTH,INTACT 71.3 8.2-83.5 CBC w/DIFF Reviewed date:01/23/2021 15:20:55 Interpretation: Performing Lab:[facility], ,Lennie [facility] WBC 9.4 4.1-10.9 RBC 3.86 4.20-6.30 HGB 12.0 12.0-18.0 HCT 38.4 36.0-51.0 MCV 99.5 80.0-97.0 MCH 31.1 26.0-32.0 MCHC 31.3 31.0-36.0 PLT 382 140-440 RDW-SD 49.2 36.4-46.3 RDW-CV 13.2 11.5-15.5 MPV 9.4 7.4-10.4 NEUT # 5.60 1.60-6.10 LYMPH # 2.52 0.60-4.10 MONO # 0.90 0.20-0.90 EO # 0.32 0.00-0.50 BASO # 0.07 0.00-0.10 NEUT % 59.4 34.0-71.1 LYMPH % 26.8 10.0-58.5 MONO % 9.6 10.0-58.5 EO % 3.4 0.7-7.0 BASO % 0.7 0.1-1.2 IG# 0.01 LOW IG% 0.10 0.00-0.43 VENIPUNCTURE OP Reviewed date:01/23/2021 12:57:30 Interpretation: Performing Lab:[facility], ,Lennie, [id number] VENIPUNCTURE VENIPUNCTURE REASON FOR VISIT Patient is seen today in follow-up., is the supervising physician in the office today. MEDICAL (GENERAL) HISTORY Type Description Date Medical [...] Surgical History Basal cell removed from nose, scientologist, fo rehead and above lip Surgical History Eyelid surgery Surgical History Colonoscopy Surgical History EDC- left petersen- BCC Surgical History BCC removal from face x 2 Surgical History Basal cell removal forehead Goals Section No Information Health Concerns No Information MEDICAL EQUIPMENT No Information MENTAL STATUS No Information FUNCTIONAL STATUS No Information ASSESSMENTS Encounter Date Diagnosis Assessment Notes Treatment Notes Treatm ent Clinical Notes Jan, Chronic Kidney Disease Stage 3, GFR 59-4 5 (ICD-10 - N18.31) Chronic kidney disease stage III this recent serum creatinines ranging from 1.1-1.2. Her serum creatinine has been as high as 1.5 in the past. Her renal function is stable today with a serum creatinine of 1.1, GFR 50.92. Electrolytes are satisfactory. She should continue to avoid nonsteroidals. If she develops vomiting or diarrhea, she needs to be seen immediately as she will be quite prone to becoming dehydrated as she has a degree of nephrogenic diabetes insipidus. Jan, Essential (primary) hypertension (ICD-10 - I10) Her blood pressure is under adequate control on her current antihypertensive regimen. Continue low-sodium diet. Jan, Vitamin D deficiency, unspecified (ICD-1 0 - E55.9) She is on gkph-rex-vyrgcpv vitamin D supplementation. PLAN OF TREATMENT Medication Medication Name Sig Start Date Stop Date Furosemide 40 MG 1 tablet Orally Once a day prn Treatment Notes Test Name Order Date VITAMIN D 2021-01-23 Urine Protein.Creat ratio 2021-01-23 UA-DIP 2021-01-23 LITHIUM 2021-01-23 Future Test Test Name Order Date CBC w/DIFF [id number] CMP [id number] PHOSPHORUS [id number] PTH,INTACT [id number] UA-DIP [id number] Urine Protein.Creat ratio [id number] VITAMIN D 20220123 LITHIUM [id number] Next Appt Details 1 Year with [facility] Reason:With labs Follow Up:1 Year with [facility] Insurance Providers Payer Name Payer Address Payer Phone Insured Name Patient Relati onship to Insured Coverage Start Date Coverage End Date [employer] [address] [address] [facility] [id number] SOFI SULLIVAN self MEDICARE PRIMARY [address] [facility] [address] MURALI SULLIVAN self
--- OUTSIDE RECORDS SUMMARY | 2021-03-31 14:35 | CCD ---
Author Author [facility] Organization [facility] Address Unknown Phone Unavailable Care Team Providers Care Insurance Verification Specialist Name Role Phone Elma Arroyo Unavailable PROBLEMS Type Condition ICD9-CM Code NPV78-OH Code Onset Dates Condition S tatus W/U Status Risk SNOMED Code Notes Problem Bipolar 1 disorder, depressed F31.9 Active confirm ed 61115604 Problem Bipolar affective disorder, currently depressed, moderate F31.32 Active confirmed 598564778 Problem Coarse tremors G25.2 Active confirmed 97371 002 Problem Adjustment disorder with mixed anxiety and depressed mood F43.23 Active confirmed [id number] son and his will be visiting Problem Bipolar disorder, current episode depressed, moderate F31.32 Active confirmed 831566223 Problem Bipolar 1 disorder F31.9 Active confirmed 3 78057647 Problem Bipolar affective disorder, currently depressed, mild F31.31 Active confirmed 145926296 Problem Bipolar disorder, current episode depressed, mild F31.31 Active confirmed [id number] ALLERGIES Allergen (clinical drug ingredient) Drug/Non Drug Allergy do cumented on EMR Reaction Allergy Type Onset Date Status Bees anaphylaxis Non Drug Allergy Active sulfamethoxazole / trimethoprim Bactrim([facility] Code:[address]-92) rash Drug Allergy Active Sulfacet-R rash Drug Allergy Active ENCOUNTERS from 1941 to 2021-01-15 Encounter Location Date Provider Diagnosis [address] [address] Dec, Elma Arroyo IMMUNIZATIONS No Information SOCIAL HISTORY Sex Assigned At : Social History Observation Description Sex Assigned At Unknown REASON FOR REFERRAL No Information VITAL SIGNS No information MEDICATIONS Medication SIG (Take, Route, Frequency, Duration) Notes Start Da te End Date Status Levothyroxine Sodium 25 MCG 1 tablet on an empty stoma ch in the morning Orally Once a day Active Magnesium 500 MG 1 tablet with a meal Orally Once a day Active Latuda 40 MG 1 tablet with food Orally Once a day Feb, Active [place] Carbonate 300 MG 1 tablet at bedtime Orally QHS Mar, Active Adderall 10 MG 1 tablet Orally qd Oct, Active LaMICtal 150 MG 1 1/2 tablet Orally qd Active amLODIPine Besylate 10 MG 1 tablet Orally Once a day Active Adderall 20 MG 1 tablet Orally daily code B Oct, Active Viibryd 40 MG 1 tablet with food Orally Once a day Feb, Active Vitamin B Complex - Orally Activ e Ergocalciferol 88767 UNIT 1 capsule Orally q week Active Accident Carbonate 150 MG 1 capsule Orally am Dec, Active Aspir-81 81 MG 1 tablet Orally Once a day Active Osteo Bi-Flex Regular Strength 250-200 MG 1 tablet wit h a meal Orally Once a day for 30 day(s) Not-Taking PROCEDURES No Information RESULTS No Results REASON FOR VISIT Appt MEDICAL (GENERAL) HISTORY Type Description Date Medical History History of recent hospitaliz ation for depression at [facility]- states this was at least 5 years ago..2011 Medical History breast cancer hx Surgical History left breast lumpectomy 2018 Surgical History partial hysterectomy 1991 Goals Section No Information Health Concerns No Information MEDICAL EQUIPMENT No Information MENTAL STATUS No Information FUNCTIONAL STATUS No Information ASSESSMENTS No Information PLAN OF TREATMENT Medication Medication Name Sig Start Date Stop Date Latuda 40 MG 1 tablet with food Orally Once a day Feb, 9 Accident Carbonate 150 MG 1 capsule Orally am Dec, LaMICtal 150 MG 1 1/2 tablet Orally qd Adderall 20 MG 1 tablet Orally daily code B Oct, Viibryd 40 MG 1 tablet with food Orally Once a day Feb, 7 Ergocalciferol 04382 UNIT 1 capsule Orally q week Next Appt Details Provider Name:Elma Arroyo, 01-16 09:00:00 AM, [address] [place] [address], [phone], Insurance Providers Payer Name Payer Address Payer Phone Insured Name Patient Relati onship to Insured Coverage Start Date Coverage End Date [facility] [place] [address] [place] [address] Rachel Puga [facility] MED[facility] DIVISION [address] [place] [address] Rachel Puga [facility] [address] [address] [facility] [id number] Rachel Cortez
--- OUTSIDE RECORDS SUMMARY | 2021-03-31 14:35 | CCD | Continuity of Care Document ---
Author Author Rachel RAY Organization Unknown Address [address] [place] [address] [address] [place] [address] Phone [phone] Care Team Providers Care Pediatric Dietician Name Role Phone Temitope Murillo D.O. AUTM Chapincito Hardy MD AUTM [phone] [facility] AUTM [phone] Jose Benton MD AUTM [phone] [facility] AUTM [phone] [facility] AUTM Beth Morgan M.D. AUTM [phone] [facility] AUTM [phone] [facility] AUTM [phone] Problems Active Problems Provider Date Moderate recurrent [...] frequent falls. [place] KlineOLm 07/18/2020 Ergocalciferol 1.25mg (03436 Ut) C apsules take 1 weekly until [...] tab by mouth once a day Unknown [place] Carbonate 150mg Capsules 1 cap by mouth [...] Mouth Once A Day With Food Unknown [place] Carbonate 300mg Capsules Take One Capsule By [...] F O2 % BldC Oximetry 97 % [place] Body Weight 100 lb 11/19/2020 8:13am BP Systolic 148 mmHg BP Diastolic 80 mmHg Height 59.6 inches 4'11.60" Weight 150.38 lb BMI (Body Mass Index) 29.8 kg/m2 Heart Rate 81 /min Body Temperature 98.5 F O2 % BldC Oximetry 97 % [place] Body Weight 100 lb Results Test Acquired Date Facility Test Result H/L Range Note CBC With Differential 01/01/[address] [phone] White Blood Count 8.4 10 Normal 4.0-10.0 [...] 36.0-66.0 Lymph % 31.0 % Normal 24.0-44.0 Tripp % 9.4 % High 2.0-8.0 Eos % 4.3 % High 0.0-3.0 Baso % 1.1 % High 0.0-1.0 Immature Granulocyte % 0.4 % Normal 0-3.0 Nucleated Red Blood Cell % 0.0 % Normal 0-0 Neutrophils # 4.6 10 Normal 1.5-8.5 Lymph # 2.6 10 Normal 1.5-5.0 Tripp # 0.8 10 Normal 0.0-0.8 Eos # 0.4 10 Normal 0.0-0.5 Baso # 0.1 10 Normal 0.0-0.2 Laboratory test finding 01/01/[address] [address] [phone] Ferritin 46 NG/ML Normal 8-252 Total Iron Binding Capacit 01/01/[address] [address] [phone] Iron (Fe) 70 g/dL Normal 50-170 Total Iron Binding Capacity 354 g/dL Normal 250-450 Percent Saturation 19.8 % Normal 13.2-45.0 Laboratory test finding 01/01/[address] [address] [phone] Vitamin B12 Level 459 pg/mL Normal 247-911 1 Total 25(Oh) Vitamin D 61.3 NG/ML Normal 30.0-100.0 FT4&TSH Panel 01/01/2021 [facility] [address] [place] [phone] Thyroid Stimulating Hormone 2.280 uIU/ML Normal 0. 358-3.740 Free T4 0.75 ng/dL Low 0.76-1.46 Comprehensive Metabolic Profil 01/01/[address] [address] [phone] Glucose, Fasting 93 mg/dL Normal 70-100 Blood [...] Normal 1.2-2.2 Laboratory test finding 11/20/2020 [facility] Outpatient T esting (Registration) [address] [place] [address] [phone] [place] Level 0.54 mEq/L Low 0.60-1.20 Laboratory test finding 09/30/2020 [facility] Outpatient T esting (Registration) [address] [place] [address] [phone] Magnesium Level 2.9 mg/dL High 1.8-2.4 [place] Level 0.64 mEq/L Normal 0.60-1.20 1 VITAMIN [...] Little GFR Left ESRD GFR <15 on [employer] Procedures Date Code Description Status 11/19/2020 21855 Office/Outpatient Established Mo d MDM 30-39 Min Completed 07/15/2020 87164 Office/Outpatient Established Lo w MDM 20-29 Min Completed Medical Devices Description No Information Available Encounters Type Date Location Provider Dx Diagnosis Office Visit 11/19/2020 8:[facility] [place] R10.813 Right lower quadrant [...] R25.1 Tremor, unspecified Office Visit 07/15/2020 10:00a [facility] [place] S00.03xA Contusion of scalp, initial [...] [facility] [place] 07/15/[address] in on license of [facility] (private[facility] house as the place of occurrence of the external cause [facility] [place] Plan of Treatment Future Appointment(s):* 04/09/2021 10:20 am - [facility] [place] at [facility] 01/03/2021 - [facility] [place]* F31.9 Bipolar disorder, [...] pain. Please eval and treat. Closed [address] [place] [address] [phone] [facility] 79 year old female in need o f at home PT due to weakness. Please eval and treat. Closed [address] [place] [address] [phone]
--- OUTSIDE RECORDS SUMMARY | 2021-03-31 14:37 | CCD ---
Author Author [facility] Organization [facility] Address Unknown Phone Unavailable Care Team Providers Care Magento Developer Name Role Phone RC, Galen CHAVIRA Unavailable Unavailable LETTIERE, Galen CHAVIRA Unavailable Unavailable LETTIERE, Galen CHAVIRA Unavailable Unavailable LETTIERE, Galen CHAVIRA Unavailable Unavailable LETTIERE, Galen CHAVIRA Unavailable Unavailable LETTIERE, Galen CHAVIRA Unavailable Unavailable LETTIERE, Galen CHAVIRA Unavailable Unavailable LETTIERE, Galen CHAVIRA Unavailable Unavailable LETTIERE, Galen CHAVIRA Unavailable Unavailable LETTIERE, Galen CHAVIRA Unavailable Unavailable LETTIERE, Galen CHAVIRA Unavailable Unavailable LETTIERE, Galen CHAVIRA Unavailable Unavailable LETTIERE, Galen CHAVIRA Unavailable Unavailable LETTIERE, Galen CHAVIRA Unavailable Unavailable LETTIERE, Galen CHAVIRA Unavailable Unavailable LETTIERE, Galen CHAVIRA Unavailable Unavailable LETTIERE, Galen CHAVIRA Unavailable Unavailable LETTIERE, A SHANTE PA Unavailable Unavailable LETTIERE, A SHANTE PA Unavailable Unavailable LETTIERE, A SHANTE PA Unavailable Unavailable LETTIERE, A SHANTE PA Unavailable Unavailable LETTIERE, A SHANTE PA Unavailable Unavailable LETTIERE, A SHANTE PA Unavailable Unavailable LETTIERE, A SHANTE PA Unavailable Unavailable LETTIERE, A SHANTE PA Unavailable Unavailable LETTIERE, A SHANTE PA Unavailable Unavailable LETTIERE, A SHANTE PA Unavailable Unavailable LETTIERE, A SHANTE PA Unavailable Unavailable LETTIERE, A SHANTE PA Unavailable Unavailable LETTIERE, A SHANTE PA Unavailable Unavailable LETTIERE, A SHANTE PA Unavailable Unavailable BYRON, BARBER MD Unavailable Unavailable [...] Unavailable Unavailable Ravi, Kirk PA Unavailable Unavailable MAJAK, R ALEX DPM Unavailable [...] Unavailable MAJAK, R ALEX DPM Unavailable Unavailable JUAN MANUEL-LAKEISHA, TEMITOPE DO Unavailable [...] MANUEL-LAKEISHA, TEMITOPE DO Unavailable Unavailable JUAN MANUEL-LAKEISHA, TEIMTOPE DO Unavailable Unavailable JUAN MANUEL-LAKEISHA, TEMITOPE DO [...] Unavailable JUAN MANUEL-LAKEISHA, TEMITOPE DO Unavailable Unavailable O'madelin, A Shante PA Unavailable Unavailable O'madelin, A Shante PA Unavailable Unavailable O'madelin, A Shante PA Unavailable Unavailable O'madelin, A Shante PA Unavailable Unavailable O'madelin, A Shante PA Unavailable Unavailable O'madelin, A Shante PA Unavailable Unavailable O'madelin, A Shante PA Unavailable Unavailable O'madelin, A Shante PA Unavailable Unavailable O'madelin, A Shante PA Unavailable Unavailable O'madelin, A Shante PA Unavailable Unavailable O'madelin, A Shante PA Unavailable Unavailable O'madelin, A Shante PA Unavailable Unavailable O'madelin, A Shante PA Unavailable Unavailable O'madelin, A Shante PA Unavailable Unavailable O'madelin, A Shante PA Unavailable Unavailable O'madelin, A Shante PA Unavailable Unavailable O'madelin, A Shante PA Unavailable Unavailable O'madelin, A Shante PA Unavailable Unavailable O'madelin, A Shante PA Unavailable Unavailable O'madelin, A Shante PA Unavailable Unavailable O'madelin, A Shante PA Unavailable Unavailable O'madelin, A Shante PA Unavailable Unavailable O'madelin, A Shante PA Unavailable Unavailable O'madelin, A Shante PA Unavailable Unavailable O'madelin, A Shante PA Unavailable Unavailable O'madelin, A Shante PA Unavailable Unavailable O'madelin, A Shante PA Unavailable Unavailable O'madelin, A Shante PA Unavailable Unavailable O'madelin, A Shante PA Unavailable Unavailable O'madelin, A Shante PA Unavailable Unavailable O'madelin, A Shante PA Unavailable Unavailable O'madelin, A Shante PA Unavailable Unavailable O'madelin, A Shante PA Unavailable Unavailable Alarcon, L Ameena RPA Unavailable Unavailable Alarcon, L Ameena RPA Unavailable Unavailable Alarcon, L Ameena RPA Unavailable Unavailable Alarcon, L Ameena RPA Unavailable Unavailable Alarcon, L Ameena RPA Unavailable Unavailable Alarcon, L Ameena RPA Unavailable Unavailable Alarcon, L Ameena RPA Unavailable Unavailable Alarcon, L Ameena RPA Unavailable Unavailable Alarcon, L Ameena RPA Unavailable Unavailable Alarcon, L Ameena RPA Unavailable Unavailable Alarcon, L Ameena RPA Unavailable Unavailable Alarcon, L Ameena RPA Unavailable Unavailable Alarcon, L Ameena RPA Unavailable Unavailable Alarcon, L Ameena RPA Unavailable Unavailable Alarcon, L Ameena RPA Unavailable Unavailable Alarcon, L Ameena RPA Unavailable Unavailable Alarcon, L Ameena RPA Unavailable Unavailable Alarcon, L Ameena RPA Unavailable Unavailable Alarcon, L Ameena RPA Unavailable Unavailable Alarcon, L Ameena RPA Unavailable Unavailable Alarcon, L Ameena RPA Unavailable Unavailable Alarcon, L Ameena RPA Unavailable Unavailable Alarcon, L Ameena RPA Unavailable Unavailable Alarcon, L Ameena RPA Unavailable Unavailable Alarcon, L Ameena RPA Unavailable Unavailable Alarcon, L Ameena RPA Unavailable Unavailable Alarcon, L Ameena RPA Unavailable Unavailable Alarcon, L Ameena RPA Unavailable Unavailable Alarcon, L Ameena RPA Unavailable Unavailable Alarcon, L Ameena RPA Unavailable Unavailable Alarcon, L Ameena RPA Unavailable Unavailable Alarcon, L Ameena RPA Unavailable Unavailable DESJARLAIS, RICKEY [employer] Unavailable Unavailable DESJARLAIS, RICKEY [employer] Unavailable Unavailable DESJARLAIS, RICKEY [employer] Unavailable Unavailable DESJARLAIS, RICKEY [employer] Unavailable Unavailable DESJARLAIS, RICKEY [employer] Unavailable Unavailable DESJARLAIS, RICKEY [employer] Unavailable Unavailable DESJARLAIS, RICKEY [employer] Unavailable Unavailable DESJARLAIS, RICKEY [employer] Unavailable Unavailable DESJARLAIS, RICKEY [employer] Unavailable Unavailable DESJARLAIS, RICKEY [employer] Unavailable Unavailable PONCHOBREA Ventura DEVON PA-C Unavailable Unavailable PONCHOBREA DEVON PA-C Unavailable Unavailable PONCHOBREA DEVON PA-C Unavailable Unavailable PONCHOBRETTBREA DEVON PA-C Unavailable Unavailable PONCHO, BREA OSORIO PA-C Unavailable Unavailable PONCHO, BREA OSORIO PA-C Unavailable Unavailable PONCHO, BREA OSORIO PA-C Unavailable Unavailable PONCHO, BREA OSORIO PA-C Unavailable Unavailable PONCHO, BREA OSORIO PA-C Unavailable Unavailable PONCHO, BREA OSORIO PA-C Unavailable Unavailable Re-disclosure Warning The records that [...] is protected by Article 27-F of the [facility] Public Health law. If you continue you may have access to information: Regarding HIV / AIDS; Provided by facilities licensed or operated by the [facility] Office of Mental Health; or Provided by the [facility] Office for People With Developmental Disabilities. If such information is present, then the following [facility] mandated warning applies: This information has been [...] law may result in a fine or correction sentence or both. A general authorization for the release of medical or other information is NOT sufficient authorization for further disc losure. Family History Family Member Name Family Member Gender Family Member Status Date o f Status Description Data Source(s) Unknown Male Problem MEDENT ([facility]) Unknown Male Problem MEDENT ([facility] Unknown Unknown Problem MEDENT ([facility]) Unknown Male Problem MEDENT ([facility]) () Encounters Encounter Providers Location Date Indications Data Source(s ) Outpatient Attender: RICKEY VARELA NP 03/26/2021 09: 34:00 AM [facility] Outpatient Attender: Shante CHAVIRA [facility] 03/06/2021 01:40:00 PM EDT MEDENT ([facility]) Outpatient Attender: RICKEY VARELA NP 03/06/2021 10: 01:00 AM [facility] Outpatient Attender: Ameena Monsalve/Yasmin/Mitchel/R eindl 02/27/2021 10:00:00 AM EDT MEDENT ([facility] Outpatient Attender: Kirk CHAVIRA [facility] 02/24/2021 01:00:00 PM EDT MEDENT ([facility]) Outpatient Attender: RICKEY VARELA NP 02/19/2021 01: 40:00 PM [facility] Outpatient Attender: Kirk CHAVIRA [facility] 02/17/2021 10:20:00 AM EDT MEDENT ([facility]) (TEL) .[facility] 01/23/2021 12:00:00 AM EDT eCW1 ([facility]) Outpatient .[facility] 01/23/2021 12:00:00 AM EDT eCW1 ([facility]) Outpatient Attender: RICKEY VARELA NP 01/16/2021 09: 51:00 AM [facility] Outpatient [facility] 01/15/2021 12:00:00 AM EDT eCW1 ([facility]) Outpatient Attender: Kirk CHAVIRA [facility] 01/03/2021 10:00:00 AM EDT MEDENT ([facility]) Outpatient Attender: RICKEY VARELA NP 12/19/2020 11: 52:00 AM [facility] Outpatient Attender: RICKEY VARELA NP 12/05/2020 03: 20:00 PM [facility] Outpatient Attender: Kirk CHAVIRA [facility] 11/19/2020 08:00:00 AM EDT MEDENT ([facility]) Outpatient Attender: SHANTE lopez 11/15/2020 04:05:00 PM EDT MEDENT ([facility] Outpatient Attender: RICKEY VARELA NP 11/12/2020 10: 56:00 AM [facility] Outpatient Attender: RICKEY VARELA NP 10/02/2020 10: 50:00 AM [facility] Office Visit Attender: Kirk CHAVIRA [facility] 09/30/2020 02:20:00 PM EDT MEDENT ([facility]) Outpatient Attender: RICKEY VARELA NP 09/05/2020 09: 49:00 AM [facility] Outpatient Attender: RICKEY VARELA NP 08/06/2020 10: 46:00 AM [facility] Outpatient Attender: RICKEY VARELA NP 07/30/2020 09: 45:00 AM [facility] 07/23/2020 12:00:00 AM EST eCW1 ([facility]) Outpatient Attender: RICKEY VARELA NP 07/16/2020 10: 27:00 AM [facility] Outpatient Attender: Kirk CHAVIRA [facility] 07/15/2020 09:00:00 AM EST MEDENT ([facility]) Outpatient Attender: Kirk CHAVIRA [facility] 07/03/2020 08:20:00 AM EST MEDENT ([facility]) Outpatient Attender: RICKEY VARELA [employer] 06/28/2020 10: 23:00 AM [facility] [address] [place] [address] 06/28/2020 12:00:00 AM EST eCW1 ([facility]) Outpatient Attender: BARBER Dunne office - [facility] 06/18/2020 01:30:00 PM EST MEDENT ([facility] ) (TEL) .[facility] 06/11/2020 12:00:00 AM EST eCW1 ([facility]) Outpatient Attender: DEVON ISAAC PA-C 06/10/2020 10:34:00 AM [facility] Outpatient Attender: RICKEY VARELA NP 05/31/2020 08: 35:00 AM [facility] Outpatient Attender: Kirk CHAVIRA [facility] 05/14/2020 07:40:00 AM EST MEDENT ([facility]) Outpatient Attender: RICKEY VARELA NP 05/10/2020 08: 31:00 AM [facility] Outpatient Attender: Kirk CHAVIRA [facility] 05/07/2020 02:20:00 PM EST MEDENT ([facility]) Outpatient Attender: RICKEY VARELA NP 04/12/2020 11: 11:00 AM [facility] Outpatient Attender: ALEX NICHOLSON [facility][note 2] 03/24 10:00:00 AM EST MEDENT ([facility] Outpatient Attender: TEMITOPE DOLAN DO [facility] 04/02/2020 07:20:00 AM EST MEDENT ([facility]) Outpatient Attender: RICKEY VARELA NP 03/22/2020 10: 34:00 AM [facility] (TEL) .[facility] 02/23/2020 12:00:00 AM EDT eCW1 ([facility]) Outpatient Attender: RICKEY VARELA NP 02/16/2020 10: 40:00 AM [facility] Outpatient Attender: RICKEY VARELA NP 02/02/2020 10: 40:00 AM [facility] Outpatient Attender: RICKEY VARELA NP 01/26/2020 10: 06:00 AM [facility] Outpatient Attender: RICKEY ALRLAIS [employer] 01/16/2020 05: 00:00 PM [facility] Outpatient Attender: RICKEY ALRLAIS [employer] 01/04/2020 09: 01:00 AM [facility] Outpatient Attender: RICKEY ALRLAIS [employer] 12/20/2019 12: 03:00 PM [facility] Outpatient Attender: DEVON ISAAC PA-C 12/19/2019 11:47:00 AM [facility] Outpatient Attender: RICKEY KAMIJARLAIS [employer] 12/07/2019 10: 47:00 AM [facility] Outpatient Attender: RICKEY KAMIJARLAIS [employer] 11/29/2019 10: 40:00 AM [facility] Outpatient Attender: RICKEY ALRLAIS [employer] 11/14/2019 11: 34:00 AM [facility] Outpatient Attender: RICKEY KAMIJARLAIS [employer] 11/07/2019 10: 40:00 AM [facility] Outpatient Attender: RICKEY ALRLAIS [employer] 10/25/2019 10: 25:00 AM [facility] Outpatient Attender: RICKEY KAMIJARLAIS [employer] 09/26/2019 04: 20:00 PM [facility] Outpatient Attender: RICKEY KAMIJARLAIS [employer] 09/19/2019 04: 58:00 PM [facility] Immunizations Vaccine Date Status Description Data Source(s) COVID-19 VACCINE Moderna 07/26/2020 12:00:00 AM EST completed [facility] Vaccine Series Complete: YESThis Data wa s Submitted to [facility] Via Ver[facility]. COVID-19 VACCINE, MRNA-1273, LNP-S (MODERNA)/PF 07/26/2020 1 2:00:00 AM EST completed [facility] COVID-19 VACCINE Moderna 06/28/2020 12:00:00 AM EST completed [facility] Vaccine Series Complete: NOThis Data was Submitted to [facility] Via Ver[employer]. COVID-19 VACCINE, MRNA-1273, LNP-S (MODERNA)/PF 06/28/2020 1 2:00:00 AM EST completed [facility] VARICELLA-ZOSTER VIRUS GLYCOPROTEIN E,REC/AS01B ADJUVA NT/PF 05/05/2020 12:00:00 AM EST completed [facility] INFLUENZA VIRUS VACCINE QUADRIVAL SPLIT 2019-(65 YR UP)/PF 02/12/2020 12:00:00 AM EDT completed [facility] Medications Medication Brand Name Start Date Product Form Dose Route Admi nistrative Instructions Pharmacy Instructions Status Indications Reaction Description Data Source(s) Cephalexin 500 MG Oral Tablet Cephalexin 03/30/2021 12:00:00 AM EDT ORAL active MEDENT ([facility]) pantoprazole 40 MG Delayed Release Oral Tablet PANTOPRAZOLE SODIUM 03/12/2021 12:00:00 AM EDT tablet,delayed release (DR/EC) 30 T SONAL ONE TABLET BY MOUTH EVERY DAY TAKE ONE TABLET BY MOUTH EVERY DAY SOLD: 03/14/2021 [facility] 1 billion cell 03/12/2021 12:00:00 AM EDT capsule 120 TAKE ONE TABLET BY MOUTH BEFORE MEALS AND AT BEDTIME TAKE ONE TABLET BY MOUTH BEFORE MEALS AN D AT BEDTIME SOLD: 03/14/2021 [facility] 1 gram 03/12/2021 12:00:00 AM EDT tablet 120 TAKE ONE TABLET BY MOUTH BEFORE MEALS AND AT BEDTIME TAKE ONE TABLET BY MOUTH BEFORE MEALS AND AT BEDTIME S OLD: 03/14/2021 [facility] pantoprazole 40 MG Delayed Release Oral Tablet PANTOPRAZOLE SODIUM 02/09/2021 12:00:00 AM EDT tablet,delayed release (DR/EC) 60 T SONAL ONE TABLET BY MOUTH TWICE A DAY TAKE ONE TABLET BY MOUTH TWICE A DAY SOLD: 02/09/2021 [facility] 1 gram 02/09/2021 12:00:00 AM EDT tablet 120 TAKE 1 TABLET BY MOUTH BEFORE MEALS AND AT BEDTIME TAKE 1 TABLET BY MOUTH BEFORE MEALS AND AT BEDTIME JOSE RAMON [facility] 1 billion cell- 250 mg 02/07/2021 12:00:00 AM EDT tablet 120 TAKE 1 TABLET BY MOUTH WITH MEALS AND AT BEDTIME TAKE 1 TABLET BY MOUTH WITH MEALS AND AT BEDTIME SOLD: 02/08/2021 [facility] 20 mg 10/31/2020 12:00:00 AM EDT tablet 30 TAKE ONE TABLET BY MOUTH EVERY DAY WITH FOOD TAKE ONE TABLET BY MOUTH EVERY DAY WITH FOOD SOLD: 10/31/2020 [facility] Amphetamine aspartate 5 MG / Amphetamine Sulfate 5 MG / Dextroamphetamine saccharate 5 MG / Dextroamphetamine Sulfate 5 MG Oral Tablet [Adderall] Adderall 20 MG Adderall 20 MG 10/24/2020 12:00:00 AM EDT 1.0 {tablet} active Adderall 20 MG eCW1 ([facility]) Amphetamine aspartate 2.5 MG / Amphetami ne Sulfate 2.5 MG / Dextroamphetamine saccharate 2.5 MG / Dextroamphetamine Sulfate 2.5 MG Oral Tablet [Adderall] Adderall 10 MG Adderall 10 MG 10/24/2020 12:00:00 AM EDT 1.0 {tablet} active Adderall 10 MG eCW1 ([facility]) 0.005 % 09/11/2020 12:00:00 AM EDT ointment 15 APPLY TO AFFECTED AREAS TWO TIMES A DAY FOR 2 WEEKS, STOP FOR 1 WEEK, MAY RESUME NEEDED APPLY TO AFFECTED AREAS TWO TIMES A DAY FOR 2 WEEKS, STOP FOR 1 WEEK, MAY RESUME NEEDED SOLD: 09/14/2020 [facility] 1 mg 07/29/2020 12:00:00 AM EST tablet 60 TAKE ONE-HALF TABLET BY MOUTH TWICE A DAY FOR 2 WEEKS THEN TAKE ONE TABLET BY MOUTH TWICE A DAY MAXIMUM DAILY DOSE = 2 TAKE ONE-HALF TABLET BY MOUTH TWICE A DA Y FOR 2 WEEKS THEN TAKE ONE TABLET BY MOUTH TWICE A DAY MAXIMUM DAILY DOSE = 2 SOLD: 07/29/2020 [facility] Covid-19 vaccine, Unspecified 07/26/2020 12:00:00 AM EST completed MEDENT ([facility]) Medication administered onsite Amphetamine aspartate 5 MG / Amphetamine Sulfate 5 MG / Dextroamphetamine saccharate 5 MG / Dextroamphetamine Sulfate 5 MG Oral Tablet [Adderall] Adderall 20 MG Adderall 20 MG 07/23/2020 12:00:00 AM EST 1.0 {tablet} active Adderall 20 MG eCW1 ([facility]) Walker Wheels/Fixed With 5 Adjustment Holes/3" 07/18/2020 12:00:00 AM EST active MEDENT ([facility]) Calcium Carbonate 298 MG / Magnesium Chl oride 596 MG Delayed Release Oral Tablet [Slow-Mag Reformulated Jun 2011] Slow-Mag 07/03/2020 12:00:00 AM EST ORAL completed MEDENT ([facility]) Covid-19 vaccine, Unspecified 06/28/2020 12:00:00 AM EST completed MEDENT ([facility]) Medication administered onsite Ergocalciferol 07451 UNT Oral Capsule Ergocalciferol 05/14/2020 12:00:00 AM EST active MEDENT ( [facility]) Shingrix Shingrix 02/26/2020 12:00:00 AM EDT SUBCUTANEOUS completed MEDENT ([facility]) 5 mg/gram (0.5 %) 01/09/2020 12:00:00 AM EDT ointment 3 APPLY A SMALL AMOUNT ON EYELID AT BEDTIME DIRECTED FOR 14 DAYS APPLY A SMALL AMOUNT ON EYELID AT BEDTIME DIRECTED FOR 14 DAYS SOLD: 02/26/2020 [facility] 100 mg 11/22/2019 12:00:00 AM [...] CONSTIPATION AND HOLD/DECREASE IF HAVING DIARRHEA) SOLD: 09/29/2020 [facility] 100 mg 11/22/2019 12:00:00 AM [...] IF HAVING DIARRHEA) SOLD: 03/26/2020 [facility] Insurance Providers Payer name Policy type / Coverage type Policy ID Covered libertarian ID Covered libertarian's relationship to perez Policy Perez Plan Information MEDICARE [id number] SP [id number] MEDICARE [id number] SP [id number] A MEDICARE A [id number] Self [id number] A [place] [id number] S [id number] MEDICARE A [id number] Self [id number] MEDICARE [id number] SP [id number] MEDICARE [id number] SP [id number] A Medicare Natl Gov't Servi Medicare Primary [id number] ..[id number] Self [id number] [place] [employer] [id number] S [id number] Medicare Natl Gov't Servi Medicare Primary [id number] ..[id number] Self [id number] MEDICARE [id number] SP [id number] A Medicare Natl Gov't Servi Medicare Primary [id number] ..[id number] Self [id number] [employer] [id number] SP [id number] P[employer] U [id number] Self [id number] POMCO [id number] SP [id number] [employer]OM[employer] U [id number] Self [id number] UMR [facility] [id number] SP [id number] UMR U [id number] Self [id number] UMR [facility] [id number] SP [id number] UMR U [id number] Self [id number] Umr Medigap Part B [id number] Self [id number] Medicare Medicare Primary [id number] Self [id number] [place] [id number] ..[id number] Self [id number] Medicare Medicare Primary [id number] ..[id number] Self [id number] Medicare Medicare Primary [id number] ..[id number] Self [id number] [place] Primary [id number] ..[id number] Self [id number] ANSI-Medicare Part B [id number] ANSI-Commercial [id number] ANSI-Medicare Part B [id number] ANSI-Commercial [id number] [facility] MEDICARE DIVISION [id number] S [id number] [place]ICARE [place] [id number] S [id number] [facility] [id number] S [id number] ANSI-Medicare Part B [id number] ANSI-Commercial [id number] ANSI-Commercial [id number] ANSI-Medicare Part B [id number] ANSI-Medicare Part B [id number] ANSI-Commercial [id number] ANSI-Medicare Part B [id number] ANSI-Commercial [id number] Medicare Medicare Primary [id number] ..[id number] Self [id number] ANSI-Commercial [id number] ANSI-Medicare Part B [id number] Medicare Medicare Primary [id number] ..[id number] Self [id number] ANSI-Commercial [id number] ANSI-Medicare Part B [id number] [facility] Part B [id number] Self [id number] MEDICARE C [id number] S [id number] A MEDICARE [id number] SP [id number] A [employer] [id number] SP [id number] [employer] PPO O [id number] S [id number] [employer] Medigap Part B [id number] Self [id number] [employer] Medigap Part B [id number] Self [id number] Medicare [place] Medicare Primary [id number] Self [id number] [employer] Medigap Part B [id number] Self [id number] [employer] [id number] SP [id number] [employer] Commercial [id number] Self Medicare [place] Medicare Primary [id number] Self [facility]-CL[facility] [id number] 18 [id number] 02 [facility]CL[facility] [id number] 2 [facility] [id number] 18 [id number] MEDICARE PART A-CLINIC [id number] A MEDICARE [id number] SP [id number] [facility] [id number] SP [id number] UMR [id number] S [id number] MEDICARE [place] [id number] S [id number] [employer] MEDICARE DIVISION [id number] S [id number] UMR [id number] S [id number] [place] MEDICARE DIVISION [id number] S [id number] MEDICARE - [place] [id number] S [id number] R [id number] S [id number] [place] MEDICARE DIVISION UNAVAILABLE S UNAVAILABLE [employer] [id number] S [id number] [employer] [id number] S [id number] MEDICARE C [id number] S [id number] R O [id number] S [id number] [employer] [id number] S [id number] [place]ICARE - [place] [id number] S [id number] R [id number] S [id number] Medicare Medicare Primary [id number] Self [id number] r Commercial [id number] Self [id number] Medicare [place] Primary [id number] Self [id number] Problems, Conditions, and Diagnoses Code Display Name Description Problem Type Effective Dates Data Source(s) G47.9 Sleep disorder, unspecified SLEEP DISORDER, UNSPECIFIE D Diagnosis 01/16/2021 09:51:00 AM [facility] F31.9 Bipolar disorder, unspecified BIPOLAR DISORDER, UNSPEC IFIED Diagnosis 01/16/2021 09:51:00 AM [facility] F43.23 Adjustment disorder with mixed anxiety a nd depressed mood ADJUSTMENT DISORDER WITH MIXED ANXIETY AND DEPRESS Diagnosis 12/19/2020 11:52:00 AM [facility] R25.1 Tremor, unspecified TREMOR, UNSPECIFIED Diagnosis 0 07/16/2020 10:27:00 AM [facility] G25.2 Other specified forms of tremor OTHER SPECIFIED FORMS OF TREMOR Diagnosis 05/31/2020 08:35:00 AM [facility] E55.9 Vitamin D deficiency Vitamin D deficiency, unspecified Problem 01/23/2021 12:00:00 AM EDT eCW1 ([facility]) F43.23 [id number] Adjustment disorder with mixed a nxiety and depressed mood Problem 11/12/2020 12:00:00 AM EDT eCW1 ([facility]) G25.2 [id number] Coarse tremors Problem 07/01/2020 12:00:00 A M EST eCW1 ([facility]) Surgeries/Procedures Procedure Description Date Indications Data Source(s) OFFICE OUTPATIENT VISIT 15 MINUTES 03/06/2021 12:00:00 AM EDT [facility] ([facility]) OFFICE OUTPATIENT NEW 45 MINUTES 02/27/2021 12:00:00 A M EDT [facility] ([facility]) OFFICE OUTPATIENT VISIT 15 MINUTES 02/24/2021 12:00:00 AM EDT [facility] ([facility]) Trans Care SRV Aft DC W/I 14D, Comm W/I 2 Dys Med Decs 02/17/2021 12:00:00 AM EDT [facility] ([facility]) OFFICE OUTPATIENT VISIT 25 MINUTES 01/03/2021 12:00:00 AM EDT [facility] ([facility]) OFFICE OUTPATIENT VISIT 25 MINUTES 11/19/2020 12:00:00 AM EDT [facility] ([facility]) OFFICE OUTPATIENT VISIT 15 MINUTES 11/15/2020 12:00:00 AM EDT [facility] ([facility]) MRI BRAIN BRAIN STEM W/O CONTRAST MATERIAL 07/20/2020 12:00:00 AM EST [facility] ([facility] ) MRI BRAIN BRAIN STEM W/O CONTRAST MATERIAL 07/20/2020 12:00:00 AM EST [facility] ([facility] ) MRI SPINAL CANAL LUMBAR W/O CONTRAST MATERIAL 07/20/19 21 12:00:00 AM EST [facility] ([facility] ) MRI SPINAL CANAL LUMBAR W/O CONTRAST MATERIAL 07/20/19 21 12:00:00 AM EST [facility] ([facility] ) OFFICE OUTPATIENT VISIT 15 MINUTES 07/15/2020 12:00:00 AM EST [facility] ([facility]) NON-INVASIVE PHYSIOLOGIC STUDY EXTREMITY 3 LEVLS 07/05 12:00:00 AM EST [facility] ([facility] ) NON-INVASIVE PHYSIOLOGIC STUDY EXTREMITY 3 LEVLS 07/05 12:00:00 AM EST [facility] ([facility] ) TSTG ANS FUNCJ CARDIOVAGAL INNERVAJ PARASYMP 12:00:00 AM EST [facility] ([facility] ) TESTING AUTONOMIC NERVOUS SYSTEM FUNCTION 07/05/2020 1 2:00:00 AM EST [facility] ([facility] ) ELECTROENCEPHALOGRAM W/REC AWAKE&ASLEEP 07/04/2020 12: 00:00 AM EST [facility] ([facility] ) ELECTROENCEPHALOGRAM W/REC AWAKE&ASLEEP 07/04/2020 12: 00:00 AM EST [facility] ([facility] ) OFFICE OUTPATIENT VISIT 25 MINUTES 07/03/2020 12:00:00 AM EST [facility] ([facility]) Needle electromyography, each extremity, with related paraspinal areas, when performed, done with nerve conduction, amplitude and latency/velocity study; complete, five or more muscles studied, innervated by three or more nerves or four or more spinal levels (list separately in addition to the code for primary procedure). 06/24/2020 12:00:00 AM EST MEDEN T ([facility] ) Needle electromyography, each extremity, with related paraspinal areas, when performed, done with nerve conduction, amplitude and latency/velocity study; complete, five or more muscles studied, innervated by three or more nerves or four or more spinal levels (list separately in addition to the code for primary procedure). 06/24/2020 12:00:00 AM EST MEDEN T ([facility] ) Nerve Conduction 11-12 Studies 06/24/2020 12:00:00 AM EST [facility] ([facility] ) PARING/CUTTING BENIGN HYPERKERATOTIC LESION 2-4 2020 12:00:00 AM EST [facility] ([facility] DEBRIDEMENT NAIL ANY METHOD 6/> 06/19/2020 12:00:00 AM EST [facility] ([facility] Results ID Date Data Source [id number] 03/27/2021 04:00:00 PM EDT MED[facility] ([facility]) Name Value Range Interpretation Code Description Data Mary rce(s) Supporting Document(s) Bacteria identified in Urine by Culture Laboratory test result Normal (applies to non-numeric results) [facility] ([facility]) <content>FULL REPORT IN LAB NOTES (eCW a nd Med[facility]).</content>
<content></content>
<content>ORGANISM 1: ESCHERICHIA COLI</content>
<content></content>
<content>COLONY COUNT > 100,000</content>
<content></content>
<content></content>
<content>O RGANISM 1: ESCHERICHIA COLI</content>
<content></content>
<content> ESCHERICHIA COLI: REACTION</content>
<content>TRIMETHOPRIM/SULFAMETHOXAZOLE IV 160mg TMP & 800mg SMXq6h <=20 S</content>
<content> TRIMETHOPRIM/SULFAMETHOXAZOLE PO Bactrim DS Bid <=20 S</content>
<content>AMPICILLIN IV 500mg q6h 8 S</content>
<content>AMPICILLIN PO 500mg q6h fasting 8 S</content>
<content>GENTAMICIN IV 80mg q8h <=1 S</content>
<content>NITROFURANTOIN PO 100mg BID <=16 S</content>
<content>CEFAZOLIN IV 1gm q8h <=4 S</content>
<content> LEVOFLOXACIN IV 500mg qd <=0.12 S</content>
<content>LEVOFLOXACIN PO 250mg qd <=0.12 S</content>
<content>LEVOFLOXACIN PO 500mg qd <=0.12 S</content>
<content>TOBRAMYCIN IV 80mg q8h <=1 S</content>
<content>CEFTRIAXONE IV 1gm q24h <=1 S</content>
<content>CEFTAZIDIME IV 1gm q8h <=1 S</content>
<content> AMPICILLIN/SULBACTAM IV 1.5g q6h 4 S</content>
<content>PIPERACILLIN/TAZOBACTAM IV 2.25 gm q6h <=4 S</content>
<content>AZTREONAM IV 1gm q8h <=1 S</content>
<content>ERTAPENEM IV 1gm qd <=0.5 S</content>
<content>MEROPENEM IV 1 gm q8h <=0.25 S</content>
<content>MEROPENEM IV 500 mg q8h <=0.25 S</content>
<content> TIGECYCLINE IV 50mg q12h <=0.5 S</content>
<content>CEFEPIME IV 1 gm q12h <=1 S</content>
<content>CEFEPIME IV 2 gm q12h <=1 S</content>
<content>EXTD BRD SPCTRM BETA LACTAMASE IV NEGATIVE FOR ESBL</content>
<content></content> ID Date Data Source [id number] 03/27/2021 04:00:00 PM EDT MED[facility] ([facility]) Name Value Range Interpretation Code Description Data Mary rce(s) Supporting Document(s) Appearance, Urine Laboratory test result Normal (applies to non-numeric results) [facility]) Specific [place] Urine Auto 1.004 1.002-1.035 Norm al (applies to non-numeric results) [facility] ([facility]) Color, Urine Laboratory test result Normal (applies to non -numeric results) [facility] ([facility]) PH,Urine 6.0 units 5.0-9.0 Normal (applies to non-numeric resul ts) [facility] ([facility]) Glucose, Urine (Ua) Auto Laboratory test result Normal (applies to non-numeric results) [facility] ([facility]) Protein, Urine Auto Laboratory test result Samantha l (applies to non-numeric results) [facility] ([facility]) Ketone, Urine Auto Laboratory test result Normal (applies to non-numeric results) [facility] ([facility]) Urobilinogen, Urine Auto 0.2 mg/dL 0.0-2.0 Normal (applies to non-numeric results) [facility] ([facility]) Nitrite, Urine Auto Laboratory test result Samantha l (applies to non-numeric results) [facility] ([facility]) Bilirubin, Urine Auto Laboratory test result Nor mal (applies to non-numeric results) [facility] ([facility]) Blood, Urine Blood Laboratory test result Normal (applies to non-numeric results) [facility] ([facility]) Leukocyte Esterase, Urine Auto Laboratory test result Normal (applies to non- numeric results) [facility] ([facility]) WBC, Urine Auto 1 /HPF 0-3 Normal (applies to non-numeric results) [facility] ([facility]) Squamous Epithelial Cell Ur AU 0 /HPF 0-6 N ormal (applies to non-numeric results) [facility] ([facility]) Bacteria, Urine Auto Laboratory test result Norm al (applies to non-numeric results) [facility] ([facility]) RBC, Urine Auto 0 /HPF 0-3 Normal (applies to non-numeric results) [facility] ([facility]) Hyaline Cast, Urine Auto 0 /LPF 0-1 Normal (applies to non -numeric results) [facility] ([facility]) ID Date Data Source [id number] 02/01/2021 10:44:00 AM EDT [facility] Name Value Range Interpretation Code Description Data Mary rce(s) Supporting Document(s) SARS-CoV-2 (COVID 19) NEGATIVE - SARS-CoV-2 (COVID19) [facility] This lab was ordered by [facility] a nd reported by [facility]. ID Date Data Source [id number] 01/26/2021 10:24:00 PM EDT [facility] Name Value Range Interpretation Code Description Data Mary rce(s) Supporting Document(s) SARS coronavirus 2 RNA [Presence] in Res piratory specimen by DAWIT with probe detection NEGATIVE [facility] This lab was ordered by [facility] a nd reported by [facility]. ID Date Data Source [id number] 01/26/2021 06:09:00 PM EDT [facility] ([facility]) Name Value Range Interpretation Code Description Data Mary rce(s) Supporting Document(s) Glucose [Mass/volume] in Capillary blood by Glucometer 126 mg/dL 83-110 Above high normal [facility] ([facility]) ID Date Data Source [id number] 01/26/2021 05:53:00 PM EDT [facility] ([facility]) Name Value Range Interpretation Code Description Data Mary rce(s) Supporting Document(s) Ammonia [Mass/volume] in Blood 13 uMOL/L N ormal (applies to non-numeric results) [facility] ([facility]) Lactate [Mass/volume] in Serum or Plasma 1.6 mmol/L 0.4-2.0 Normal (applies to non-numeric results) [facility] ([facility]) Y/N query for Sepsis Lactate Rule: Y ID Date Data Source [id number] 01/26/2021 05:53:00 PM EDT [facility] ([facility]) Name Value Range Interpretation Code Description Data Mary rce(s) Supporting Document(s) Alt/SGPT 26 U/L 12-78 Normal (applies to non-numeric resul ts) [facility] ([facility]) Ast/Sgot 13 U/L 7-37 Normal (applies to non-numeric resul ts) [facility] ([facility]) Alkaline Phosphatase 85 U/L 45-117 Normal (applies to non-num caren results) [facility] ([facility]) Bilirubin,Total 0.6 mg/dL 0.2-1.0 Normal (applies to non-numeric results) [facility] ([facility]) Bilirubin,Direct 0.1 mg/dL 0.0-0.2 Normal (applies to non-numeric results) [facility] ([facility]) Total Protein 7.0 GM/DL 6.4-8.2 Normal (applies to non-numeric re sults) [facility] ([facility]) Albumin 3.3 GM/DL 3.2-5.2 Normal (applies to non-numeric resul ts) [facility] ([facility]) Albumin/Globulin Ratio 0.9 1.2-2.2 Below low normal [facility] ([facility]) ID Date Data Source [id number] 01/26/2021 05:53:00 PM EDT [facility] ([facility]) Name Value Range Interpretation Code Description Data Mary rce(s) Supporting Document(s) Glucose, Fasting 119 mg/dL 70-100 Above high normal [facility] ([facility]) Blood Urea Nitrogen 20 mg/dL 7-18 Above high normal [facility] ([facility]) Creatinine For GFR 1.45 mg/dL 0.55-1.30 Above high [facility] Sodium Level 143 meq/L 136-145 Normal (applies to non-numeric res ults) [facility] ([facility]) Glomerular Filtration Rate 37.1 Below low normal [facility] ([facility]) <content>Units are mL/min/1.73 m2</content>
<content></content>
<content>Chronic Kidney Disease Staging per NKF:</content>
<content></content>
<content>Stage I & II GFR >=60 Normal to Mildly Decreased</content>
<content>Stage III GFR 30- 59 Moderately Decreased</content>
<content>Stage IV GFR 15-29 Severely Decreased</content>
<content>Stage V GFR <15 Very Little GFR Left</content>
<content>ESRD GFR <15 on SIDING APPLICATOR</content>
<content></content> Chloride Level 112 meq/L 98-107 Above high normal [facility] ([facility]) Potassium Serum 3.8 meq/L 3.5-5.1 Normal (applies to non-numeric results) [facility] ([facility]) Carbon Dioxide Level 25 meq/L 21-32 Normal (applies to non-num caren results) [facility] ([facility]) Calcium Level 8.8 mg/dL 8.8-10.2 Normal (applies to non-numeric re sults) [facility]) Anion Gap 6 meq/L 8-16 Below low normal [facility] ( [facility]) ID Date Data Source [id number] 01/26/2021 05:53:00 PM EDT [facility] ([facility]) Name Value Range Interpretation Code Description Data Mary rce(s) Supporting Document(s) Osmolality of Serum or Plasma 296 MOSM/KG 280-301 No rmal (applies to non-numeric results) [facility] ([facility]) Thyrotropin [Units/volume] in Serum or Plasma 1.400 uIU/ML 0. 358-3.740 Normal (applies to non-numeric results) [facility] ([facility]) ID Date Data Source [id number] 01/26/2021 05:53:00 PM EDT [facility] ([facility]) Name Value Range Interpretation Code Description Data Mary rce(s) Supporting Document(s) Red Blood Count 3.73 10 4.00-5.40 Below low normal [facility] ([facility]) White Blood Count 19.8 10 4.0-10.0 Above high normal [facility] ([facility]) A Pathologist review of this differentia l can help in the evaluation of a differential diagnosis. Please order a Pathologist Review (PERISM) if deemed necessary. Results are subject to change if a Pathologist Review is performed. Hemoglobin 11.7 g/dL 12.0-15.5 Below low normal [facility] ( [facility]) Hematocrit 36.6 % 36.0-47.0 Normal (applies to non-numeric resul ts) [facility] ([facility]) Mean Corpuscular HGB Conc 32.0 g/dL 32.0-36.5 Normal (applies to non-numeric results) [facility] ([facility]) Mean Corpuscular Volume 98.1 fl 80.0-96.0 Above high normal [facility] ([facility]) Mean Corpuscular Hemoglobin 31.4 pg 27.0-33.0 Norm al (applies to non-numeric results) [facility] ([facility]) Red Cell Distribution Width 13.4 % 11.5-14.5 Norm al (applies to non-numeric results) [facility] ([facility]) Platelet Count, Automated 315 10 150-450 Normal (applies to non-numeric results) [facility] ([facility]) Nucleated Red Blood Cell % 0.0 % 0-0 Normal (applies to n on-numeric results) [facility] ([facility]) ID Date Data Source [id number] 01/26/2021 05:53:00 PM EDT [facility] ([facility]) Name Value Range Interpretation Code Description Data Mary rce(s) Supporting Document(s) Bands 2 % Normal (applies to non-numeric resul ts) [facility] ([facility]) Neutrophils 85 % 28-66 Above high normal [facility] ([facility]) Lymphocytes 6 % 16-44 Below low normal [facility] ([facility]) Monocytes 7 % 0-5 Above high normal [facility] ([facility]) Platelet Clumps Laboratory test result Normal (a pplies to non-numeric results) [facility] ([facility]) ID Date Data Source [id number] 01/26/2021 05:53:00 PM EDT [facility] ([facility]) Name Value Range Interpretation Code Description Data Mary rce(s) Supporting Document(s) Platelets [#/volume] in Blood by Estimate Laboratory test result Normal (applies to non-numeric results) [facility] ([facility]) ID Date Data Source [id number] 01/26/2021 05:53:00 PM EDT [facility] ([facility]) Name Value Range Interpretation Code Description Data Mary rce(s) Supporting Document(s) Appearance, Urine RFX Laboratory test result Nor mal (applies to non-numeric results) [facility] ([facility]) Color, Urine RFX Laboratory test result Normal ( applies to non-numeric results) [facility] ([facility]) Protein, Urine Auto RFX Laboratory test result Above high normal [facility] ([facility]) Specific [place] Ur Auto RFX 1.003 1.002-1.035 Nor mal (applies to non-numeric results) [facility] ([facility]) PH,Urine RFX 7.0 units 5.0-9.0 Normal (applies to non-numeric res ults) [facility] ([facility]) Urobilinogen, Urine Auto RFX 0.2 mg/dL 0.0-2.0 Nor mal (applies to non-numeric results) [facility] ([facility]) Ketone, Urine Auto RFX Laboratory test result No rmal (applies to non-numeric results) [facility] ([facility]) Glucose, Urine (Ua) Auto RFX Laboratory test result Normal (applies to non- numeric results) [facility] ([facility]) Bilirubin, Urine Auto RFX Laboratory test result Normal (applies to non- numeric results) [facility] ([facility]) Nitrite, Urine Auto RFX Laboratory test result N ormal (applies to non-numeric results) [facility] ([facility]) Blood, Urine Blood RFX Laboratory test result Above high n ormal [facility] ([facility]) Leukocyte Esterase Ur Auto RFX Laboratory test result Abov e high normal [facility] ([facility]) WBC, Urine Auto RFX 4 /HPF 0-3 Above high normal [facility] ([facility]) Bacteria, Urine Auto RFX Laboratory test result Above high normal [facility] ([facility]) RBC, Urine Auto RFX 1 /HPF 0-3 Normal (applies to non-nume paula results) [facility] ([facility]) Hyaline Cast, Urine Auto RFX 0 /LPF 0-1 Normal (appl ies to non-numeric results) [facility] ([facility]) Squam Epithelial Cell Ur Aurfx 0 /HPF 0-6 N ormal (applies to non-numeric results) [facility] ([facility]) ID Date Data Source [id number] 01/26/2021 05:53:00 PM EDT [facility] ([facility]) Name Value Range Interpretation Code Description Data Mary rce(s) Supporting Document(s) Venous PH 7.350 units 7.330-7.430 Normal (applies to non-numeric res ults) [facility] ([facility]) Venous Partial Pressure O2 51.0 mmHg 30.0-50.0 Above high normal [facility] ([facility]) Venous Partial Pressure Co2 46.8 mmHg 38.0-50.0 Norm al (applies to non-numeric results) [facility] ([facility]) Venous Hco3 25.3 meq/L 23.0-27.0 Normal (applies to non-numeric resu lts) [facility] ([facility]) Venous Total Co2 26.7 meq/L 24.0-28.0 Normal (applies to non-numeric results) [facility] ([facility]) Venous Standard Hco3 23.7 meq/L Normal (applies to non-num caren results) [facility] ([facility]) Venous O2 Saturation 86.5 % 60.0-80.0 Above high normal [facility] ([facility]) Venous Base Excess -0.7 Normal (applies to non-numer ic results) [facility]) ID Date Data Source [id number] 01/26/2021 05:53:00 PM EDT [facility] ([facility]) Name Value Range Interpretation Code Description Data Mary rce(s) Supporting Document(s) CPK Creatine Phosphokinase 97 U/L 26-192 Samantha l (applies to non-numeric results) [facility] ([facility]) CK-MB Value Mass 1.7 ng/mL Normal (applies to non-numeric results) [facility] ([facility]) MB/CK Relative Index 1.75 Normal (applies to non-num caren results) [facility]) <content>DIAGNOSIS CRITERIA</content>
<content>MMB ng/ml Relative Index (RI)</content>
<content>NON-AMI < or = 5 N/A</content>
<content>MANCUSO ZONE > 5 < or = 4</content>
<content>AMI > 5 > 4</content>
<content></content> Troponin I Laboratory test result Normal (applies to non-n umeric results) [facility]) <content>Troponin I Reference Interval f or [employer] [place] LOCI:</content>
<content></content>
<content>99th Percentile= 0.00-0.045 ng/ml</content>
<content></content>
<content>Risk Stratification:</content>
<content><= 0.10 ng/ml Decreased Risk for Adverse Clinical</content>
<content>Events.</content>
<content>0.10-1.50 ng/ml Increased Risk for Adverse Clinical</content>
<content>Events. Evaluation of additional</content>
<content>criterion and/or repeat testing in 2-6</content>
<content>hours is suggested to rule out myocardial</content>
<content>damage.</content>
<content>>= 1.50 ng/ml Indicative of Myocardial Injury.</content>
<content></content> ID Date Data Source [id number] 01/23/2021 09:36:46 PM EDT [facility] Name Value Range Interpretation Code Description Data Mary rce(s) Supporting Document(s) LITHIUM 0.69 mmol/L (0.60-1.50) [facility] ID Date Data Source [id number] 01/23/2021 12:00:00 AM EDT eCW1 ([facility]) Name Value Range Interpretation Code Description Data Mary rce(s) Supporting Document(s) VENIPUNCTURE VENIPUNCTURE eCW1 ([facility]) ID Date Data Source [id number]/[id number] 01/23/2021 12:00:00 AM EDT eCW1 ([facility]) Name Value Range Interpretation Code Description Data Mary rce(s) Supporting Document(s) 3.86 4.20-6.30 RBC eCW1 ([facility]) 9.4 4.1-10.9 WBC eCW1 ([facility]) 12.0 12.0-18.0 HGB eCW1 ([facility]) 99.5 80.0-97.0 MCV eCW1 ([facility]) 38.4 36.0-51.0 HCT eCW1 ([facility]) 382 140-440 PLT eCW1 ([facility]) 31.3 31.0-36.0 MCHC eCW1 ([facility]) 31.1 26.0-32.0 MCH eCW1 ([facility]) 9.4 7.4-10.4 MPV eCW1 ([facility]) 49.2 36.4-46.3 RDW-SD eCW1 ([facility]) 13.2 11.5-15.5 RDW-CV eCW1 ([facility]) 0.90 0.20-0.90 MONO # eCW1 ([facility]) 2.52 0.60-4.10 LYMPH # eCW1 ([facility]) 0.32 0.00-0.50 EO # eCW1 ([facility]) 5.60 1.60-6.10 NEUT # eCW1 ([facility]) 0.07 0.00-0.10 BASO # eCW1 ([facility]) 26.8 10.0-58.5 LYMPH % eCW1 ([facility]) 59.4 34.0-71.1 NEUT % eCW1 ([facility]) 0.7 0.1-1.2 BASO % eCW1 ([facility]) 9.6 10.0-58.5 MONO % eCW1 ([facility]) 3.4 0.7-7.0 EO % eCW1 ([facility]) 0.10 0.00-0.43 IG% eCW1 ([facility]) 0.01 LOW IG# eCW1 ([facility]) ID Date Data Source [id number],INTACT 01/23/2021 12:00:00 AM EDT eCW1 ([facility]) Name Value Range Interpretation Code Description Data Mary rce(s) Supporting Document(s) 71.3 8.2-83.5 PTH,INTACT eCW1 ([facility]) ID Date Data Source [id number] 01/23/2021 12:00:00 AM EDT eCW1 ([facility]) Name Value Range Interpretation Code Description Data Mary rce(s) Supporting Document(s) 3.7 3.4-5.0 ALBUMIN eCW1 ([facility]) 19 7-18 BUN eCW1 ([facility]) 9.1 8.5-10.1 CALCIUM eCW1 ([facility]) 50.92 >=60.00 GFR NON-AFR.AM eCW1 ([facility]) 61.61 >=60.00 GFR AFR.AM eCW1 ([facility]) 1.1 0.6-1.3 CREATININE eCW1 ([facility]) 106 100-108 CHLORIDE eCW1 ([facility]) 4.5 3.6-5.2 POTASSIUM eCW1 ([facility]) 140 135-145 SODIUM eCW1 ([facility]) 7.7 6.4-8.2 TOTAL PROTEIN eCW1 ([facility]) 0.30 0.20-1.00 T BILIRUBIN eCW1 ([facility] 31.2 21.0-32.0 CO2 eCW1 ([facility]) 104.0 70.0-110.0 GLUCOSE eCW1 ([facility] 96 46-116 ALPI eCW1 ([facility] 16 15-37 AST eCW1 ([facility]) 3 5-15 ANION GAP eCW1 ([facility]) 28 30-65 ALTI eCW1 ([facility]) ID Date Data Source [id number] 01/01/2021 11:14:00 AM EDT [facility] ([facility]) Name Value Range Interpretation Code Description Data Mary rce(s) Supporting Document(s) Glucose, Fasting 93 mg/dL 70-100 Normal (applies to non-numeric results) [facility] ([facility]) Creatinine For GFR 1.14 mg/dL 0.55-1.30 Normal (applies to non -numeric results) [facility] ([facility]) Blood Urea Nitrogen 19 mg/dL 7-18 [facility] Sodium Level 143 meq/L 136-145 Normal (applies to non-numeric res ults) [facility] ([facility]) Potassium Serum 4.8 meq/L 3.5-5.1 Normal (applies to non-numeric results) [facility] ([facility]) Glomerular Filtration Rate 48.9 Normal (applies to n on-numeric results) [facility] ([facility]) <content>Units are mL/min/1.73 m2</content>
<content></content>
<content>Chronic Kidney Disease Staging per NKF:</content>
<content></content>
<content>Stage I & II GFR >=60 Normal to Mildly Decreased</content>
<content>Stage III GFR 30- 59 Moderately Decreased</content>
<content>Stage IV GFR 15-29 Severely Decreased</content>
<content>Stage V GFR <15 Very Little GFR Left</content>
<content>ESRD GFR <15 on SIDING APPLICATOR</content>
<content></content> Chloride Level 110 meq/L 98-107 Above high normal [facility] ([facility]) Anion Gap 1 meq/L 8-16 Below low normal [facility] ( [facility]) Carbon Dioxide Level 32 meq/L 21-32 Normal (applies to non-num caren results) [facility] ([facility]) Ast/Sgot 14 U/L 7-37 Normal (applies to non-numeric resul ts) [facility] ([facility]) Calcium Level 9.1 mg/dL 8.8-10.2 Normal (applies to non-numeric re sults) [facility] ([facility]) Alt/SGPT 26 U/L 12-78 Normal (applies to non-numeric resul ts) [facility] ([facility]) Bilirubin,Total 0.3 mg/dL 0.2-1.0 Normal (applies to non-numeric results) [facility] ([facility]) Alkaline Phosphatase 74 U/L 45-117 Normal (applies to non-num caren results) [facility] ([facility]) Total Protein 6.7 GM/DL 6.4-8.2 Normal (applies to non-numeric re sults) [facility] ([facility]) Albumin/Globulin Ratio 1.2 1.2-2.2 Normal (applies to non-n umeric results) [facility] ([facility]) Albumin 3.6 GM/DL 3.2-5.2 Normal (applies to non-numeric resul ts) [facility] ([facility]) ID Date Data Source [id number] 01/01/2021 11:14:00 AM EDT [facility] ([facility]) Name Value Range Interpretation Code Description Data Mary rce(s) Supporting Document(s) Thyroid Stimulating Hormone 2.280 uIU/ML 0.358-3.740 Norm al (applies to non- numeric results) [facility] ([facility]) Free T4 0.75 ng/dL 0.76-1.46 Below low normal [facility] ( [facility]) ID Date Data Source [id number] 01/01/2021 11:14:00 AM EDT [facility] ([facility]) Name Value Range Interpretation Code Description Data Mary rce(s) Supporting Document(s) Calcidiol [Mass/volume] in Serum or Plasma 61.3 ng/mL 30.0- 100.0 Normal (applies to non-numeric results) [facility] ([facility]) Cobalamin (Vitamin B12) [Mass/volume] in Serum or Plasma 459 pg/ mL 247-911 Normal (applies to non-numeric results) [facility] ([facility]) VITAMIN B12 NORMAL RANGE NORMAL 247 - 911 PG/ML INDETERMINATE 211 - 246 PG/ML DEFICIENT LESS THAN 211 PG/ML ID Date Data Source [id number] 01/01/2021 11:14:00 AM EDT [facility] ([facility]) Name Value Range Interpretation Code Description Data Mary rce(s) Supporting Document(s) Iron (Fe) 70 ug/dL 50-170 Normal (applies to non-numeric resul ts) [facility] ([facility]) Total Iron Binding Capacity 354 ug/dL 250-450 Norm al (applies to non-numeric results) [facility] ([facility]) Percent Saturation 19.8 % 13.2-45.0 Normal (applies to non-numer ic results) [facility] ([facility]) ID Date Data Source [id number] 01/01/2021 11:14:00 AM EDT [facility] ([facility]) Name Value Range Interpretation Code Description Data Mary rce(s) Supporting Document(s) Ferritin [Mass/volume] in Serum or Plasma 46 ng/mL 8-252 Normal (applies to non- numeric results) [facility] ([facility]) ID Date Data Source [id number] 01/01/2021 11:14:00 AM EDT [facility] ([facility]) Name Value Range Interpretation Code Description Data Mary rce(s) Supporting Document(s) White Blood Count 8.4 10 4.0-10.0 Normal (applies to non-numeri c results) [facility] ([facility]) Hemoglobin 11.7 g/dL 12.0-15.5 Below low normal [facility] ( [facility]) Red Blood Count 3.81 10 4.00-5.40 Below low normal [facility] ([facility]) Hematocrit 38.0 % 36.0-47.0 Normal (applies to non-numeric resul ts) [facility] ([facility]) Mean Corpuscular Hemoglobin 30.7 pg 27.0-33.0 Norm al (applies to non-numeric results) [facility] ([facility]) Mean Corpuscular Volume 99.7 fl 80.0-96.0 Above high normal [facility] Platelet Count, Automated 344 10 150-450 Normal (applies to non-numeric results) [facility] ([facility]) Mean Corpuscular HGB Conc 30.8 g/dL 32.0-36.5 Below low normal [facility] ([facility]) Red Cell Distribution Width 13.6 % 11.5-14.5 Norm al (applies to non-numeric results) [facility] ([facility]) Neutrophils % 53.8 % 36.0-66.0 Normal (applies to non-numeric re sults) [facility] ([facility]) Lymph % 31.0 % 24.0-44.0 Normal (applies to non-numeric resul ts) [facility] ([facility]) Baso % 1.1 % 0.0-1.0 Above high normal [facility] ([facility]) [place] % 9.4 % 2.0-8.0 Above high normal [facility] ([facility]) Eos % 4.3 % 0.0-3.0 Above high normal [facility] ([facility]) Nucleated Red Blood Cell % 0.0 % 0-0 Normal (applies to n on-numeric results) [facility] ([facility]) Immature Granulocyte % 0.4 % 0-3.0 Normal (applies to non-n umeric results) [facility] ([facility]) Neutrophils # 4.6 10 1.5-8.5 Normal (applies to non-numeric re sults) [facility] ([facility]) Lymph # 2.6 10 1.5-5.0 Normal (applies to non-numeric resul ts) [facility] ([facility]) [place] # 0.8 10 0.0-0.8 Normal (applies to non-numeric resul ts) [facility] ([facility]) Eos # 0.4 10 0.0-0.5 Normal (applies to non-numeric resul ts) [facility] ([facility]) Baso # 0.1 10 0.0-0.2 Normal (applies to non-numeric resul ts) [facility] ([facility]) ID Date Data Source [id number] 11/20/2020 03:44:00 PM EDT [facility] ([facility]) Name Value Range Interpretation Code Description Data Mary rce(s) Supporting Document(s) [place] [Mass/volume] in Serum or Plasma 0.54 meq/L 0.60-1.20 Below low normal [facility] ([facility]) ID Date Data Source [id number] 09/30/2020 03:53:00 PM EDT [facility] ([facility]) Name Value Range Interpretation Code Description Data Mary rce(s) Supporting Document(s) Magnesium [Mass/volume] in Serum or Plasma 2.9 mg/dL 1.8-2.4 Above high normal [facility] ([facility]) [place] [Mass/volume] in Serum or Plasma 0.64 meq/L 0.60-1. 20 Normal (applies to non-numeric results) [facility] ([facility]) ID Date Data Source [id number] 06/28/2020 10:43:00 AM EST [facility] ([facility]) Name Value Range Interpretation Code Description Data Mary rce(s) Supporting Document(s) Cobalamin (Vitamin B12) [Mass/volume] in Serum or Plasma 575 pg/ mL 247-911 Normal (applies to non-numeric results) [facility] ([facility]) VITAMIN B12 NORMAL RANGE NORMAL 247 - 911 PG/ML INDETERMINATE 211 - 246 PG/ML DEFICIENT LESS THAN 211 PG/ML Calcidiol [Mass/volume] in Serum or Plasma 49.4 ng/mL 30.0- 100.0 Normal (applies to non-numeric results) [facility] ([facility]) Ferritin [Mass/volume] in Serum or Plasma 96 ng/mL 8-252 Normal (applies to non- numeric results) [facility] ([facility]) ID Date Data Source [id number] 06/28/2020 10:43:00 AM EST [facility] ([facility]) Name Value Range Interpretation Code Description Data Mary rce(s) Supporting Document(s) Iron (Fe) 101 ug/dL 50-170 Normal (applies to non-numeric resul ts) [facility] ([facility]) Total Iron Binding Capacity 332 ug/dL 250-450 Norm al (applies to non-numeric results) [facility] ([facility]) Percent Saturation 30.4 % 13.2-45.0 Normal (applies to non-numer ic results) [facility] ([facility]) ID Date Data Source [id number] 06/28/2020 10:43:00 AM EST [facility] ([facility]) Name Value Range Interpretation Code Description Data Mary rce(s) Supporting Document(s) Thyroid Stimulating Hormone 0.831 uIU/ML 0.358-3.740 Norm al (applies to non- numeric results) [facility] ([facility]) Free T4 0.93 ng/dL 0.76-1.46 Normal (applies to non-numeric resul ts) [facility] ([facility]) ID Date Data Source [id number] 06/28/2020 10:43:00 AM EST [facility] ([facility]) Name Value Range Interpretation Code Description Data Mary rce(s) Supporting Document(s) White Blood Count 8.5 10 4.0-10.0 Normal (applies to non-numeri c results) [facility] ([facility]) Hemoglobin 11.0 g/dL 12.0-15.5 Below low normal [facility] ( [facility]) Red Blood Count 3.62 10 4.00-5.40 Below low normal [facility] ([facility]) Mean Corpuscular Volume 100.3 fl 80.0-96.0 Above high normal [facility] ([facility]) Hematocrit 36.3 % 36.0-47.0 Normal (applies to non-numeric resul ts) [facility] ([facility]) Mean Corpuscular Hemoglobin 30.4 pg 27.0-33.0 Norm al (applies to non-numeric results) [facility] ([facility]) Mean Corpuscular HGB Conc 30.3 g/dL 32.0-36.5 Below low normal [facility] ([facility]) Red Cell Distribution Width 12.7 % 11.5-14.5 Norm al (applies to non-numeric results) [facility] ([facility]) Platelet Count, Automated 407 10 150-450 Normal (applies to non-numeric results) [facility] ([facility]) Lymph % 28.9 % 24.0-44.0 Normal (applies to non-numeric resul ts) [facility] ([facility]) Neutrophils % 56.4 % 36.0-66.0 Normal (applies to non-numeric re sults) [facility] ([facility]) [place] % 9.4 % 0.0-5.0 Above high normal [facility] ([facility]) Eos % 4.3 % 0.0-3.0 Above high normal [facility] ([facility]) Baso % 0.8 % 0.0-1.0 Normal (applies to non-numeric resul ts) [facility] ([facility]) Immature Granulocyte % 0.2 % 0-3.0 Normal (applies to non-n umeric results) [facility] ([facility]) Nucleated Red Blood Cell % 0.0 % 0-0 Normal (applies to n on-numeric results) [facility] ([facility]) Lymph # 2.5 10 1.5-5.0 Normal (applies to non-numeric resul ts) [facility] ([facility]) Neutrophils # 4.8 10 1.5-8.5 Normal (applies to non-numeric re sults) [facility] ([facility]) Eos # 0.4 10 0.0-0.5 Normal (applies to non-numeric resul ts) [facility] ([facility]) [place] # 0.8 10 0.0-0.8 Normal (applies to non-numeric resul ts) [facility] ([facility]) Baso # 0.1 10 0.0-0.2 Normal (applies to non-numeric resul ts) [facility] ([facility]) ID Date Data Source [id number] 06/28/2020 10:43:00 AM EST [facility] ([facility]) Name Value Range Interpretation Code Description Data Mary rce(s) Supporting Document(s) Glucose, Fasting 97 mg/dL 70-100 Normal (applies to non-numeric results) [facility] ([facility]) Blood Urea Nitrogen 19 mg/dL 7-18 Above high normal [facility] ([facility]) Creatinine For GFR 1.25 mg/dL 0.55-1.30 Normal (applies to non -numeric results) [facility] ([facility]) Glomerular Filtration Rate 44.1 Normal (applies to n on-numeric results) [facility] ([facility]) <content>Units are mL/min/1.73 m2</content>
<content></content>
<content>Chronic Kidney Disease Staging per NKF:</content>
<content></content>
<content>Stage I & II GFR >=60 Normal to Mildly Decreased</content>
<content>Stage III GFR 30- 59 Moderately Decreased</content>
<content>Stage IV GFR 15-29 Severely Decreased</content>
<content>Stage V GFR <15 Very Little GFR Left</content>
<content>ESRD GFR <15 on SIDING APPLICATOR</content>
<content></content> Sodium Level 141 meq/L 136-145 Normal (applies to non-numeric res ults) [facility] ([facility]) Chloride Level 106 meq/L 98-107 Normal (applies to non-numeric r esults) [facility] ([facility]) Carbon Dioxide Level 30 meq/L 21-32 Normal (applies to non-num caren results) [facility] ([facility]) Potassium Serum 3.8 meq/L 3.5-5.1 Normal (applies to non-numeric results) [facility] ([facility]) Calcium Level 9.6 mg/dL 8.8-10.2 Normal (applies to non-numeric re sults) [facility] ([facility]) Anion Gap 5 meq/L 8-16 Below low [facility] Alkaline Phosphatase 80 U/L 45-117 Normal (applies to non-num caren results) [facility] ([facility]) Alt/SGPT 29 U/L 12-78 Normal (applies to non-numeric resul ts) [facility] ([facility]) Ast/Sgot 14 U/L 7-37 Normal (applies to non-numeric resul ts) [facility] ([facility]) Bilirubin,Total 0.5 mg/dL 0.2-1.0 Normal (applies to non-numeric results) [facility] ([facility]) Total Protein 7.0 GM/DL 6.4-8.2 Normal (applies to non-numeric re sults) [facility] ([facility]) Albumin 3.7 GM/DL 3.2-5.2 Normal (applies to non-numeric resul ts) [facility] ([facility]) Albumin/Globulin Ratio 1.1 1.2-2.2 Below low normal [facility] ([facility]) ID Date Data Source [id number] 06/02/2020 12:00:00 AM EST [facility] Name Value Range Interpretation Code Description Data Mary rce(s) Supporting Document(s) SARS coronavirus 2 RNA [Presence] in Res piratory specimen by DAWIT with probe detection NEGATIVE [facility] This lab was ordered by Ham Montesinos and reported by [employer]. ID Date Data Source [id number] 06/02/2020 12:00:00 AM EST [facility] Name Value Range Interpretation Code Description Data Mary rce(s) Supporting Document(s) Carestart Rapid COVID Antigen Test Negative [facility] This lab was reported by Ham mari. ID Date Data Source [id number] 05/08/2020 11:00:00 AM EST [facility] ([facility]) Name Value Range Interpretation Code Description Data Mary rce(s) Supporting Document(s) Bacteria identified in Urine by Culture Laboratory test result Normal (applies to non-numeric results) [facility] ([facility]) FULL REPORT IN LAB NOTES ([facility] and [facility] ). NO GROWTH ID Date Data Source [id number] 05/08/2020 11:00:00 AM EST [facility] ([facility]) Name Value Range Interpretation Code Description Data Mary rce(s) Supporting Document(s) Appearance, Urine Laboratory test result Normal (applies to non-numeric results) [facility] ([facility]) Color, Urine Laboratory test result Normal (applies to non -numeric results) [facility] ([facility]) PH,Urine 7.0 units 5.0-9.0 Normal (applies to non-numeric resul ts) [facility] ([facility]) Specific [place] Urine Auto 1.003 1.002-1.035 Norm al (applies to non-numeric results) [facility] ([facility]) Protein, Urine Auto Laboratory test result Samantha l (applies to non-numeric results) [facility] ([facility]) Glucose, Urine (Ua) Auto Laboratory test result Normal (applies to non-numeric results) [facility] ([facility]) Ketone, Urine Auto Laboratory test result Normal (applies to non-numeric results) [facility] ([facility]) Urobilinogen, Urine Auto 0.2 mg/dL 0.0-2.0 Normal (applies to non-numeric results) [facility] ([facility]) Nitrite, Urine Auto Laboratory test result Samantha l (applies to non-numeric results) [facility] ([facility]) Bilirubin, Urine Auto Laboratory test result Nor mal (applies to non-numeric results) [facility] ([facility]) Leukocyte Esterase, Urine Auto Laboratory test result Abov e high normal [facility] ([facility]) Blood, Urine Blood Laboratory test result Normal (applies to non-numeric results) [facility] ([facility]) RBC, Urine Auto 0 /HPF 0-3 Normal (applies to non-numeric results) [facility] ([facility]) WBC, Urine Auto 1 /HPF 0-3 Normal (applies to non-numeric results) [facility] ([facility]) Bacteria, Urine Auto Laboratory test result Norm al (applies to non-numeric results) [facility] ([facility]) Hyaline Cast, Urine Auto 0 /LPF 0-1 Normal (applies to non -numeric results) [facility] ([facility]) Squamous Epithelial Cell Ur AU 0 /HPF 0-6 N ormal (applies to non-numeric results) [facility] ([facility]) ID Date Data Source [id number] 05/07/2020 04:59:00 PM EST [facility] ([facility]) Name Value Range Interpretation Code Description Data Mary rce(s) Supporting Document(s) Thyroid Stimulating Hormone 1.040 uIU/ML 0.358-3.740 Norm al (applies to non- numeric results) [facility] ([facility]) Free T4 1.02 ng/dL 0.76-1.46 Normal (applies to non-numeric resul ts) [facility] ([facility]) ID Date Data Source [id number] 05/07/2020 04:59:00 PM EST [facility] ([facility]) Name Value Range Interpretation Code Description Data Mary rce(s) Supporting Document(s) Folate Laboratory test result Normal (applies to non-n umeric results) [facility] ([facility]) FOLATE NORMAL RANGE NORMAL GREATER THAN 5.4 NG/ML INDETERMINATE 3.4-5.4 NG/ML DEFICIENT LESS THAN 3.4 NG/ML Vitamin B12 Level 671 pg/mL Normal (applies to non-numeri c results) [facility] ([facility]) VITAMIN B12 NORMAL RANGE NORMAL 247 - 911 PG/ML INDETERMINATE 211 - 246 PG/ML DEFICIENT LESS THAN 211 PG/ML ID Date Data Source [id number] 05/07/2020 04:59:00 PM EST [facility] ([facility]) Name Value Range Interpretation Code Description Data Mary rce(s) Supporting Document(s) [place] [Mass/volume] in Serum or Plasma 0.61 meq/L 0.60-1. 20 Normal (applies to non-numeric results) [facility] ([facility]) ID Date Data Source [id number] 05/07/2020 04:59:00 PM EST [facility] ([facility]) Name Value Range Interpretation Code Description Data Mary rce(s) Supporting Document(s) Bacteria identified in Urine by Culture Laboratory test result [facility] ([facility]) ID Date Data Source [id number] 05/02/2020 12:41:00 PM EST [facility] ([facility]) Name Value Range Interpretation Code Description Data Mary rce(s) Supporting Document(s) Ferritin [Mass/volume] in Serum or Plasma 72 ng/mL 8-252 Normal (applies to non- numeric results) [facility] ([facility]) ID Date Data Source [id number] 05/02/2020 12:41:00 PM EST [facility] ([facility]) Name Value Range Interpretation Code Description Data Mary rce(s) Supporting Document(s) Lyetq-3-Brhypfql % 5.1 % 2.9-4.9 Above high normal [facility] ([facility]) Albumin % 56.7 % 55.8-66.1 Normal (applies to non-numeric resul ts) [facility] ([facility]) Rxoen-0-Ppgbhrnxn % 12.7 % 7.1-11.8 Above high normal [facility] ([facility]) Ormd-3-Kbohehrwi % 7.3 % 4.7-7.2 Above high normal [facility] ([facility]) Rnnq-6-Vvvnducjw % 7.2 % 3.2-6.5 Above high normal [facility] ([facility]) Gamma Globulin % 11.0 % 11.1-18.8 Below low normal ME DENT ([facility]) Albumin 4.08 GM/DL 3.29-5.55 Normal (applies to non-numeric resul ts) [facility] ([facility]) Pwgmh-8-Qkkzjnnkm 0.91 GM/DL 0.42-0.99 Normal (applies to non- numeric results) [facility] ([facility]) Diuzi-4-Nmpdnyafm 0.37 GM/DL 0.17-0.41 Normal (applies to non- numeric results) [facility] ([facility]) Excv-2-Cmzkoxghb 0.53 GM/DL 0.28-0.60 Normal (applies to non-numeric results) [facility] ([facility]) Nrfx-7-Fkcouowfm 0.52 GM/DL 0.19-0.55 Normal (applies to non-numeric results) [facility] ([facility]) Gamma Globulins 0.79 GM/DL 0.65-1.58 Normal (applies to non-numeric results) [facility] ([facility]) Total Protein 7.2 GM/DL 6.4-8.2 Normal (applies to non-numeric re sults) [facility] ([facility]) Laboratory test finding (navigational concept) Laboratory test r esult Normal (applies to non-numeric results) [facility] ([facility]) REV'D BY O ADJAPONG Spep Interpretation Laboratory test result Samantha l (applies to non-numeric results) [facility] ([facility]) NO M-SPIKE(S)NOTED. ID Date Data Source [id number] 05/02/2020 12:41:00 PM EST [facility] ([facility]) Name Value Range Interpretation Code Description Data Mary rce(s) Supporting Document(s) Laboratory test finding (navigational concept) Laboratory test r esult Normal (applies to non-numeric results) [facility] ([facility]) REV'D BY Efrem LEMOS Laboratory test finding (navigational concept) Laboratory test r esult Normal (applies to non-numeric results) [facility] ([facility]) NO MONOCLONAL BANDS NOTED. ID Date Data Source [id number] 05/02/2020 12:41:00 PM EST [facility] ([facility]) Name Value Range Interpretation Code Description Data Mary rce(s) Supporting Document(s) Iron (Fe) 106 ug/dL 50-170 Normal (applies to non-numeric resul ts) [facility] ([facility]) Percent Saturation 28.2 % 13.2-45.0 Normal (applies to non-numer ic results) [facility] ([facility]) Total Iron Binding Capacity 376 ug/dL 250-450 Norm al (applies to non-numeric results) [facility] ([facility]) ID Date Data Source [id number] 05/02/2020 12:41:00 PM EST [facility] ([facility]) Name Value Range Interpretation Code Description Data Mary rce(s) Supporting Document(s) Lactate dehydrogenase [Enzymatic activit y/volume] in Serum or Plasma by Lactate to pyruvate reaction 210 U/L 84-246 Normal (applies to non-numeric re sults) [facility] ([facility]) ID Date Data Source [id number] 05/02/2020 12:41:00 PM EST [facility] ([facility]) Name Value Range Interpretation Code Description Data Mary rce(s) Supporting Document(s) Glucose, Fasting 75 mg/dL 70-100 Normal (applies to non-numeric results) [facility] ([facility]) Blood Urea Nitrogen 14 mg/dL 7-18 Normal (applies to non-nume paula results) [facility] ([facility]) Creatinine For GFR 1.11 mg/dL 0.55-1.30 Normal (applies to non -numeric results) [facility] ([facility]) Glomerular Filtration Rate 50.6 Normal (applies to n on-numeric results) [facility] ([facility]) <content>Units are mL/min/1.73 m2</content>
<content></content>
<content>Chronic Kidney Disease Staging per NKF:</content>
<content></content>
<content>Stage I & II GFR >=60 Normal to Mildly Decreased</content>
<content>Stage III GFR 30-59 Moderately Decreased</content>
<content>Stage IV GFR 15-29 Severely Decreased</content>
<content>Stage V GFR <15 Very Little GFR Left</content>
<content>ESRD GFR <15 on SIDING APPLICATOR</content>
<content></content> Sodium Level 142 meq/L 136-145 Normal (applies to non-numeric res ults) [facility] ([facility]) Potassium Serum 3.9 meq/L 3.5-5.1 Normal (applies to non-numeric results) [facility] ([facility]) Chloride Level 109 meq/L 98-107 Above high normal [facility] ([facility]) Carbon Dioxide Level 31 meq/L 21-32 Normal (applies to non-num caren results) [facility] ([facility]) Anion Gap 2 meq/L 8-16 Below low normal [facility] ( [facility]) Ast/Sgot 14 U/L 7-37 Normal (applies to non-numeric resul ts) [facility] ([facility]) Calcium Level 9.5 mg/dL 8.8-10.2 Normal (applies to non-numeric re sults) [facility] ([facility]) Alt/SGPT 29 U/L 12-78 Normal (applies to non-numeric resul ts) [facility] ([facility]) Alkaline Phosphatase 86 U/L 45-117 Normal (applies to non-num caren results) [facility] ([facility]) Bilirubin,Total 0.3 mg/dL 0.2-1.0 Normal (applies to non-numeric results) [facility] ([facility]) Albumin 3.7 GM/DL 3.2-5.2 Normal (applies to non-numeric resul ts) [facility] ([facility]) Total Protein 7.2 GM/DL 6.4-8.2 Normal (applies to non-numeric re sults) [facility] ([facility]) Albumin/Globulin Ratio 1.1 1.2-2.2 Below low normal [facility] ([facility]) ID Date Data Source [id number] 05/02/2020 12:41:00 PM EST [facility] ([facility]) Name Value Range Interpretation Code Description Data Mary rce(s) Supporting Document(s) Haptoglobin [Mass/volume] in Serum or Plasma 194 mg/dL 42- 346 Normal (applies to non-numeric results) [facility] ([facility]) Performed at: RN - [facility] [place] [id number] [employer] Clerk: Geovanna Stroud MD, Phone: [phone] ID Date Data Source [id number] 05/02/2020 12:41:00 PM EST [facility] ([facility]) Name Value Range Interpretation Code Description Data Mary rce(s) Supporting Document(s) Wero Result Calc Laboratory test result Normal (a pplies to non-numeric results) [facility] ([facility]) ID Date Data Source [id number] 05/02/2020 12:41:00 PM EST [facility] ([facility]) Name Value Range Interpretation Code Description Data Mary rce(s) Supporting Document(s) Reticulocyte % 1.2 % 0.5-1.5 Normal (applies to non-numeric r esults) [facility] ([facility]) Reticulocyte # 46.5 10 17-77 Normal (applies to non-numeric r esults) [facility] ([facility]) Retic Hemoglobin Equivalent 35.5 pg 24-36 Norm al (applies to non-numeric results) [facility] ([facility]) ID Date Data Source [id number] 05/02/2020 12:41:00 PM EST [facility] ([facility]) Name Value Range Interpretation Code Description Data Mary rce(s) Supporting Document(s) White Blood Count 9.5 10 4.0-10.0 Normal (applies to non-numeri c results) [facility] ([facility]) Hemoglobin 12.3 g/dL 12.0-15.5 Normal (applies to non-numeric resul ts) [facility] ([facility]) Red Blood Count 3.95 10 4.00-5.40 Below low normal [facility] ([facility]) Hematocrit 39.3 % 36.0-47.0 Normal (applies to non-numeric resul ts) [facility] ([facility]) Mean Corpuscular Volume 99.5 fl 80.0-96.0 Above high normal [facility] ([facility]) Mean Corpuscular Hemoglobin 31.1 pg 27.0-33.0 Norm al (applies to non-numeric results) [facility] ([facility]) Mean Corpuscular HGB Conc 31.3 g/dL 32.0-36.5 Below low normal [facility] ([facility]) Red Cell Distribution Width 13.1 % 11.5-14.5 Norm al (applies to non-numeric results) [facility] ([facility]) Platelet Count, Automated 434 10 150-450 Normal (applies to non-numeric results) [facility] ([facility]) Neutrophils % 59.8 % 36.0-66.0 Normal (applies to non-numeric re sults) [facility] ([facility]) Lymph % 25.2 % 24.0-44.0 Normal (applies to non-numeric resul ts) [facility] ([facility]) [place]vert % 10.0 % 0.0-5.0 Above high normal [facility] ([facility]) Eos % 3.7 % 0.0-3.0 Above high normal [facility] ([facility]) Immature Granulocyte % 0.3 % 0-3.0 Normal (applies to non-n umeric results) [facility] ([facility]) Baso % 1.0 % 0.0-1.0 Normal (applies to non-numeric resul ts) [facility] ([facility]) Neutrophils # 5.7 10 1.5-8.5 Normal (applies to non-numeric re sults) [facility] ([facility]) Nucleated Red Blood Cell % 0.0 % 0-0 Normal (applies to n on-numeric results) [facility] ([facility]) Lymph # 2.4 10 1.5-5.0 Normal (applies to non-numeric resul ts) [facility] ([facility]) [place] # 1.0 10 0.0-0.8 Above high normal [facility] ([facility]) Baso # 0.1 10 0.0-0.2 Normal (applies to non-numeric resul ts) [facility] ([facility]) Eos # 0.4 10 0.0-0.5 Normal (applies to non-numeric resul ts) [facility] ([facility]) ID Date Data Source [id number] 04/02/2020 12:00:00 AM EST [facility] Temitope Contreras DO Patient Name: DAYAMI [id number] Date of : 1940te 1 Date of Exam: 04/02/2020KIT Montesinos [id number]#: Fax: [phone] EXAM: HIP LEFT UNILATERAL (COMPLETE) [...] rce(s) Supporting Document(s) ID Date Data Source [id number] 02/27/2020 09:04:00 AM EDT [facility] ([facility]) Name Value Range Interpretation Code Description Data Mary rce(s) Supporting Document(s) Natriuretic peptide.B prohormone N-Terminal [Mass/volu me] in Serum or Plasma 140 pg/mL Normal (applies to non-numeric results) [facility] ([facility]) FAX TO [phone] FAX TO [phone] Magnesium [Mass/volume] in Serum or Plasma 2.9 mg/dL 1.8-2.4 Above high normal [facility] ([facility]) FAX TO [phone] FAX TO [phone] Thyrotropin [Units/volume] in Serum or Plasma 1.080 uIU/ML 0. 358-3.740 Normal (applies to non-numeric results) [facility] ([facility]) FAX TO [phone] FAX TO [phone] ID Date Data Source [id number] 02/27/2020 09:04:00 AM EDT [facility] ([facility]) Name Value Range Interpretation Code Description Data Mary rce(s) Supporting Document(s) Glucose, Fasting 86 mg/dL 70-100 Normal (applies to non-numeric results) [facility] ([facility]) Blood Urea Nitrogen 15 mg/dL 7-18 Normal (applies to non-nume paula results) [facility] ([facility]) Sodium Level 144 meq/L 136-145 Normal (applies to non-numeric res ults) [facility] ([facility]) Glomerular Filtration Rate 54.0 Normal (applies to n on-numeric results) [facility] ([facility]) <content>Units are mL/min/1.73 m2</content>
<content></content>
<content>Chronic Kidney Disease Staging per NKF:</content>
<content></content>
<content>Stage I & II GFR >=60 Normal to Mildly Decreased</content>
<content>Stage III GFR 30- 59 Moderately Decreased</content>
<content>Stage IV GFR 15-29 Severely Decreased</content>
<content>Stage V GFR <15 Very Little GFR Left</content>
<content>ESRD GFR <15 on SIDING APPLICATOR</content>
<content></content> Creatinine For GFR 1.05 mg/dL 0.55-1.30 Normal (applies to non -numeric results) [facility] ([facility]) Chloride Level 109 meq/L 98-107 Above high normal [facility] ([facility]) Potassium Serum 4.6 meq/L 3.5-5.1 Normal (applies to non-numeric results) [facility] ([facility]) Carbon Dioxide Level 31 meq/L 21-32 Normal (applies to non-num caren results) [facility] ([facility]) Anion Gap 4 meq/L 8-16 Below low normal [facility] ( [facility]) Calcium Level 8.9 mg/dL 8.8-10.2 Normal (applies to non-numeric re sults) [facility] ([facility]) Alt/SGPT 24 U/L 12-78 Normal (applies to non-numeric resul ts) [facility] ([facility]) Ast/Sgot 15 U/L 7-37 Normal (applies to non-numeric resul ts) [facility] ([facility]) Alkaline Phosphatase 82 U/L 45-117 Normal (applies to non-num caren results) [facility] ([facility]) Total Protein 6.8 GM/DL 6.4-8.2 Normal (applies to non-numeric re sults) [facility] ([facility]) Bilirubin,Total 0.3 mg/dL 0.2-1.0 Normal (applies to non-numeric results) [facility] ([facility]) Albumin/Globulin Ratio 1.1 1.2-2.2 Below low normal [facility] ([facility]) Albumin 3.5 GM/DL 3.2-5.2 Normal (applies to non-numeric resul ts) [facility] ([facility]) ID Date Data Source [id number] 02/27/2020 09:04:00 AM EDT [facility] ([facility]) Name Value Range Interpretation Code Description Data Mary rce(s) Supporting Document(s) Red Blood Count 3.48 10 4.00-5.40 Below low normal [facility] ([facility]) White Blood Count 8.8 10 4.0-10.0 Normal (applies to non-numeri c results) [facility] ([facility]) Mean Corpuscular Volume 100.3 fl 80.0-96.0 Above high normal [facility] ([facility]) Hematocrit 34.9 % 36.0-47.0 Below low normal [facility] ( [facility]) Hemoglobin 10.6 g/dL 12.0-15.5 Below low normal [facility] ( [facility]) Mean Corpuscular Hemoglobin 30.5 pg 27.0-33.0 Norm al (applies to non-numeric results) [facility] ([facility]) Mean Corpuscular HGB Conc 30.4 g/dL 32.0-36.5 Below low normal [facility] ([facility]) Red Cell Distribution Width 13.5 % 11.5-14.5 Norm al (applies to non-numeric results) [facility] ([facility]) Platelet Count, Automated 357 10 150-450 Normal (applies to non-numeric results) [facility] ([facility]) Lymph % 28.9 % 24.0-44.0 Normal (applies to non-numeric resul ts) [facility] ([facility]) Neutrophils % 56.1 % 36.0-66.0 Normal (applies to non-numeric re sults) [facility] ([facility]) Baso % 1.1 % 0.0-1.0 Above high normal [facility] ([facility]) Eos % 2.8 % 0.0-3.0 Normal (applies to non-numeric resul ts) [facility] ([facility]) [place] % 10.9 % 0.0-5.0 Above high normal [facility] ([facility]) Immature Granulocyte % 0.2 % 0-3.0 Normal (applies to non-n umeric results) [facility] ([facility]) Nucleated Red Blood Cell % 0.0 % 0-0 Normal (applies to n on-numeric results) [facility] ([facility]) Neutrophils # 4.9 10 1.5-8.5 Normal (applies to non-numeric re sults) [facility] ([facility]) [place] # 1.0 10 0.0-0.8 Above high normal [facility] ([facility]) Lymph # 2.5 10 1.5-5.0 Normal (applies to non-numeric resul ts) [facility] ([facility]) Eos # 0.3 10 0.0-0.5 Normal (applies to non-numeric resul ts) [facility] ([facility]) Baso # 0.1 10 0.0-0.2 Normal (applies to non-numeric resul ts) [facility] ([facility]) Procedure Social History Code Duration Value Status Description Data Source(s ) Smoking 02/24/2021 12:00:00 AM EDT Patient has never smoked co mpleted Patient has never smoked [facility] ([facility]) Smoking 01/23/2021 12:00:00 AM EDT Never Smoker completed Never S mihaela [email or web address] ([facility]) Smoking 01/23/2021 12:00:00 AM EDT Never Smoker completed Never S mihaela eCW1 ([facility]) Vital Signs ID Date Data Source UNK Name Value Range Interpretation Code Description Data Source(s) Oxygen saturation in Arterial blood by Pulse oximetry 96 % 96 % [facility] ([facility]) [place] body weight 100 [lb_av] 100 [lb_av] [facility] T ([facility]) Systolic blood pressure 126 mm[Hg] 126 mm[Hg] M EDENT ([facility]) Diastolic blood pressure 76 mm[Hg] 76 mm[Hg] [facility] ([facility]) Body height 59.6 [in_i] 59.6 [in_i] [facility] ([facility]) 4'11.60" Body weight 154.00 [lb_av] 154.00 [lb_av] [facility] T ([facility]) Body mass index (BMI) [Ratio] 30.5 kg/m2 30.5 k g/m2 [facility] ([facility]) Heart rate 67 /min 67 /min [facility] ([facility]) Respiratory rate 20 /min 20 /min [facility] ( [facility]) Body temperature 98.5 [degF] 98.5 [degF] [facility] ([facility]) [place] body weight 110 [lb_av] 110 [lb_av] [facility] T ([facility]) Body weight 70.903 kg 70.903 kg [facility] ([facility]) Body temperature 98.3 [degF] 98.3 [degF] [facility] ([facility]) Body height 62 [in_i] 62 [in_i] [facility] ([facility]) 5'2" Body weight 156.31 [lb_av] 156.31 [lb_av] [facility] T ([facility]) Body mass index (BMI) [Ratio] 28.6 kg/m2 28.6 k g/m2 [facility] ([facility]) Body surface area Derived from formula 1.72 m2 1.72 m2 [facility] ([facility]) Systolic blood pressure 152 mm[Hg] 152 mm[Hg] [facility] Diastolic blood pressure 74 mm[Hg] 74 mm[Hg] [facility] ([facility]) Diastolic blood pressure 70 mm[Hg] 70 mm[Hg] [facility] ([facility]) Body height 59.6 [in_i] 59.6 [in_i] [facility] ([facility]) 4'11.60" Body weight 156.38 [lb_av] 156.38 [lb_av] [facility] T ([facility]) Systolic blood pressure 120 mm[Hg] 120 mm[Hg] M EDENT ([facility]) Body mass index (BMI) [Ratio] 30.9 kg/m2 30.9 k g/m2 [facility] ([facility]) Heart rate 99 /min 99 /min [facility] ([facility]) Respiratory rate 12 /min 12 /min [facility] ( [facility]) Body temperature 98.0 [degF] 98.0 [degF] [facility] ([facility]) Oxygen saturation in Arterial blood by Pulse oximetry 99 % 99 % [facility] ([facility]) [place] body weight 100 [lb_av] 100 [lb_av] [facility] T ([facility]) Body weight 156.25 [lb_av] 156.25 [lb_av] [facility] T ([facility]) Body mass index (BMI) [Ratio] 30.9 kg/m2 30.9 k g/m2 [facility] ([facility]) Heart rate 99 /min 99 /min [facility] ([facility]) Respiratory rate 18 /min 18 /min [facility] ( [facility]) Body temperature 98.6 [degF] 98.6 [degF] [facility] ([facility]) Oxygen saturation in Arterial blood by Pulse oximetry 96 % 96 % [facility] ([facility]) Systolic blood pressure 128 mm[Hg] 128 mm[Hg] M EDENT ([facility]) Diastolic blood pressure 72 mm[Hg] 72 mm[Hg] [facility] ([facility]) Body height 59.6 [in_i] 59.6 [in_i] [facility] ([facility]) 4'11.60" [place] body weight 100 [lb_av] 100 [lb_av] [facility] T ([facility]) Heart rate 76 /min 76 /min eCW1 ([facility]) Body weight 155.0 [lb_av] 155.0 [lb_av] eCW1 ([facility]) Body height 61.5 [in_i] 61.5 [in_i] eCW1 ([facility] Body mass index (BMI) [Ratio] 28.81 kg/m2 28.81 kg/m2 eCW1 ([facility]) Oxygen saturation in Arterial blood by Pulse oximetry 99 % 99 % eCW1 ([facility]) Body temperature 99.1 [degF] 99.1 [degF] [facility] ([facility]) Systolic blood pressure 132 mm[Hg] 132 mm[Hg] M EDENT ([facility]) Diastolic blood pressure 68 mm[Hg] 68 mm[Hg] [facility] ([facility]) Body height 59.6 [in_i] 59.6 [in_i] [facility] ([facility]) " Body weight 154.12 [lb_av] 154.12 [lb_av] [facility] T ([facility]) Body mass index (BMI) [Ratio] 30.5 kg/m2 30.5 k g/m2 [facility] ([facility]) Heart rate 78 /min 78 /min [facility] ([facility]) Respiratory rate 18 /min 18 /min [facility] ( [facility]) Oxygen saturation in Arterial blood by Pulse oximetry 97 % 97 % [facility] ([facility]) [place] body weight 100 [lb_av] 100 [lb_av] [facility] T ([facility]) Body weight 150.38 [lb_av] 150.38 [lb_av] [facility] T ([facility]) Body mass index (BMI) [Ratio] 29.8 kg/m2 29.8 k g/m2 [facility] ([facility]) Oxygen saturation in Arterial blood by Pulse oximetry 97 % 97 % [facility] ([facility]) [place] body weight 100 [lb_av] 100 [lb_av] [facility] T ([facility]) Systolic blood pressure 148 mm[Hg] 148 mm[Hg] M EDENT ([facility]) Diastolic blood pressure 80 mm[Hg] 80 mm[Hg] [facility] ([facility]) Body height 59.6 [in_i] 59.6 [in_i] [facility] ([facility]) " Heart rate 81 /min 81 /min [facility] ([facility]) Body temperature 98.5 [degF] 98.5 [degF] [facility] ([facility]) Systolic blood pressure 125 mm[Hg] 125 mm[Hg] M EDENT ([facility]) Diastolic blood pressure 72 mm[Hg] 72 mm[Hg] [facility] ([facility]) Heart rate 84 /min 84 /min [facility] ([facility]) Respiratory rate 16 /min 16 /min [facility] ( [facility]) Oxygen saturation in Arterial blood by Pulse oximetry 99 % 99 % [facility] ([facility]) Body temperature 98.4 [degF] 98.4 [degF] [facility] ([facility]) Body weight 150.00 [lb_av] 150.00 [lb_av] MED[facility] T ([facility]) Body height 61 [in_i] 61 [in_i] [facility] ([facility]) 5'1" Body mass index (BMI) [Ratio] 28.3 kg/m2 28.3 k g/m2 [facility] ([facility]) Systolic blood pressure 132 mm[Hg] 132 mm[Hg] M EDENT ([facility]) Diastolic blood pressure 74 mm[Hg] 74 mm[Hg] [facility] ([facility]) Body height 59.6 [in_i] 59.6 [in_i] [facility] 4'11.60" [place] body weight 100 [lb_av] 100 [lb_av] [facility] ([facility]) Body weight 150.50 [lb_av] 150.50 [lb_av] [facility] ([facility]) Body mass index (BMI) [Ratio] 29.8 kg/m2 29.8 k g/m2 [facility] ([facility]) Heart rate 90 /min 90 /min [facility] ([facility]) Respiratory rate 18 /min 18 /min [facility] Body temperature 98.4 [degF] 98.4 [degF] [facility] ([facility]) Oxygen saturation in Arterial blood by Pulse oximetry 98 % 98 % [facility] ([facility]) Body height 59.6 [in_i] 59.6 [in_i] [facility] ([facility]) " Body mass index (BMI) [Ratio] 28.9 kg/m2 28.9 k g/m2 [facility] ([facility]) Heart rate 84 /min 84 /min [facility] ([facility]) Respiratory rate 20 /min 20 /min [facility] ( [facility]) Body temperature 97.3 [degF] 97.3 [degF] [facility] ([facility]) Oxygen saturation in Arterial blood by Pulse oximetry 99 % 99 % [facility] ([facility]) Systolic blood pressure 122 mm[Hg] 122 mm[Hg] [facility] ([facility]) Diastolic blood pressure 82 mm[Hg] 82 mm[Hg] [facility] ([facility]) Body weight 146.00 [lb_av] 146.00 [lb_av] [facility] ([facility]) [place] body weight 100 [lb_av] 100 [lb_av] [facility] ([facility]) Systolic blood pressure 140 mm[Hg] 140 mm[Hg] [facility] ([facility]) Diastolic blood pressure 74 mm[Hg] 74 mm[Hg] [facility] ([facility]) [place] body weight 100 [lb_av] 100 [lb_av] [facility] ([facility]) Body height 59.6 [in_i] 59.6 [in_i] [facility] ([facility]) " Body weight 150.38 [lb_av] 150.38 [lb_av] [facility] ([facility]) Body mass index (BMI) [Ratio] 29.8 kg/m2 29.8 k g/m2 [facility] ([facility]) Heart rate 103 /min 103 /min [facility] ([facility]) Respiratory rate 14 /min 14 /min [facility] ( [facility]) Body temperature 98.3 [degF] 98.3 [degF] [facility] ([facility]) Oxygen saturation in Arterial blood by Pulse oximetry 97 % 97 % [facility] ([facility]) Body mass index (BMI) [Ratio] 30.3 kg/m2 30.3 k g/m2 [facility] ([facility]) Heart rate 96 /min 96 /min [facility] ([facility]) Oxygen saturation in Arterial blood by Pulse oximetry 99 % 99 % [facility] ([facility]) Systolic blood pressure 144 mm[Hg] 144 mm[Hg] [facility] ([facility]) Diastolic blood pressure 68 mm[Hg] 68 mm[Hg] [facility] ([facility]) Body height 59.6 [in_i] 59.6 [in_i] [facility] ([facility]) 4'11.60" Body weight 153.00 [lb_av] 153.00 [lb_av] [facility] ([facility]) Respiratory rate 18 /min 18 /min [facility] ( [facility]) Body temperature 98.3 [degF] 98.3 [degF] [facility] ([facility]) [place] body weight 100 [lb_av] 100 [lb_av] [facility] ([facility]) Systolic blood pressure 124 mm[Hg] 124 mm[Hg] [facility] ([facility]) Diastolic blood pressure 72 mm[Hg] 72 mm[Hg] [facility] ([facility]) Body height 59.6 [in_i] 59.6 [in_i] [facility] ([facility]) '.60" Heart rate 88 /min 88 /min [facility] ([facility]) Respiratory rate 18 /min 18 /min [facility] ( [facility]) Body temperature 98.3 [degF] 98.3 [degF] [facility] ([facility]) Oxygen saturation in Arterial blood by Pulse oximetry 97 % 97 % [facility] ([facility]) [place] body weight 100 [lb_av] 100 [lb_av] [facility] ([facility]) Systolic blood pressure 128 mm[Hg] 128 mm[Hg] [facility] ([facility]) Diastolic blood pressure 80 mm[Hg] 80 mm[Hg] [facility] ([facility]) Body height 59.6 [in_i] 59.6 [in_i] [facility] ([facility]) 4'11.60" Body weight 150.50 [lb_av] 150.50 [lb_av] [facility] ([facility]) Body mass index (BMI) [Ratio] 29.8 kg/m2 29.8 k g/m2 [facility] ([facility]) Heart rate 89 /min 89 /min [facility] ([facility]) [facility] rate 16 /min 16 /[facility] Body temperature 97.6 [degF] 97.6 [degF] [facility] ([facility]) Oxygen saturation in Arterial blood by Pulse oximetry 96 % 96 % [facility] ([facility]) [place] body weight 100 [lb_av] 100 [lb_av] [facility] ([facility]) Patient Treatment Plan of Care Planned Activity Planned Date Details Description Data Source (s) Amphetamine aspartate 5 MG / Amphetamine Sulfate 5 MG / Dextroamphetamine saccharate 5 MG / Dextroamphetamine Sulfate 5 MG Oral Tablet [Adderall] 10/24/2020 12:00:00 AM EDT [email or web address] ([facility]) Amphetamine aspartate 5 MG / Amphetamine Sulfate 5 MG / Dextroamphetamine saccharate 5 MG / Dextroamphetamine Sulfate 5 MG Oral Tablet [Adderall] 07/23/2020 12:00:00 AM EST [email or web address] ([facility])
[2021-03-31 20:18] VITALS: BP 144/67
--- OUTSIDE RECORDS SUMMARY | 2021-03-31 21:55 | CCD ---
Author Author [facility] Organization [facility] Address Unknown Phone Unavailable Care Team Providers Care Head And Neck Surgeon Name Role Phone RC, Galen CHAVIRA Unavailable [...] Unavailable BYRON, BARBER MD Unavailable Unavailable BYRON, BARBRE MD Unavailable Unavailable BYRON, BARBER MD Unavailable [...] JUAN MANUEL-LAKEISHA, TEMITOPE DO Unavailable Unavailable JUAN MNAUEL-LAKEISHA, TEMITOPE DO Unavailable Unavailable JUAN MANUEL-LAKEISHA, TEMITOPE [...] JUAN MANUEL-LAKEISHA, TEMITOPE DO Unavailable Unavailable JUAN MANUEL-LAKESIHA, TEMITOPE DO Unavailable Unavailable JUAN MANUEL-LAKEISHA, TEMITOPE [...] L Ameena RPA Unavailable Unavailable DESJARLAIS, RICKEY SCREENING UNIT REGISTERED NURSE Unavailable Unavailable DESJARLAIS, RICKEY SCREENING UNIT REGISTERED NURSE Unavailable Unavailable DESJARLAIS, RICKEY SCREENING UNIT REGISTERED NURSE Unavailable Unavailable DESJARLAIS, RICKEY SCREENING UNIT REGISTERED NURSE Unavailable Unavailable DESJARLAIS, RICKEY SCREENING UNIT REGISTERED NURSE Unavailable Unavailable DESJARLAIS, RICKEY SCREENING UNIT REGISTERED NURSE Unavailable Unavailable DESJARLAIS, RICKEY SCREENING UNIT REGISTERED NURSE Unavailable Unavailable DESJARLAIS, RICKEY SCREENING UNIT REGISTERED NURSE Unavailable Unavailable DESJARLAIS, RICKEY SCREENING UNIT REGISTERED NURSE Unavailable Unavailable DESJARLAIS, RICKEY SCREENING UNIT REGISTERED NURSE Unavailable Unavailable PONCHOBREA Ventura DEVON PA-C Unavailable Unavailable PONCHOBREA Ventura DEVON PA-C Unavailable Unavailable PONCHOBREA DEVON PA-C Unavailable Unavailable PONCHO, BREA BELLLEY PA-C Unavailable Unavailable PONCHO, BREA OSORIO PA-C Unavailable Unavailable PONCHO, BREA BELLLEY PA-C Unavailable Unavailable PONCHO, BREA BELLLEY PA-C Unavailable Unavailable PONCHO, BREA BELLLEY PA-C Unavailable Unavailable PONCHO, BREA BELLLEY PA-C Unavailable Unavailable PONCHO, BREA BELLLEY PA-C Unavailable Unavailable Re-disclosure Warning The records [...] is protected by Article 27-F of the [facility] Public Health law. If you continue you may have access to information: Regarding HIV / AIDS; Provided by facilities licensed or operated by the [facility] Office of Mental Health; or Provided by the [facility] Office for People With Developmental Disabilities. If such information is present, then the following [facility] mandated warning applies: This information [...] Description Data Source(s) Unknown Male Problem MEDENT ([facility]) Unknown Male Problem MED[facility] ([facility] Unknown Unknown Problem MED[facility] ([facility] Unknown Male Problem MEDENT ([facility]) () Encounters Encounter Providers Location Date Indications Data Source(s ) Outpatient Attender: RICKEY VARELA NP 03/26/2021 09: 34:00 AM [facility] Outpatient Attender: Shatne CHAVIRA Family Medicine [facility] 03/06/2021 01:40:00 PM EDT MEDENT ([facility]) Outpatient Attender: RICKEY VARELA NP 03/06/2021 10: 01:00 AM [facility] Outpatient Attender: Ameena Monsalve/Yasmin/Mitchel/R eindl 02/27/2021 10:00:00 AM EDT MED[facility] ([facility] Outpatient Attender: Kirk CHAVIRA Family Medicine [facility] 02/24/2021 01:00:00 PM EDT MEDENT ([facility]) Outpatient Attender: RICKEY VARELA NP 02/19/2021 01: 40:00 PM [facility] Outpatient Attender: Kirk CHAVIRA Family Medicine [facility] 02/17/2021 10:20:00 AM EDT MEDENT ([facility]) (TEL) .[facility] 01/23/2021 12:00:00 AM EDT eCW1 ([facility]) Outpatient .[facility] 01/23/2021 12:00:00 AM EDT eCW1 ([facility]) Outpatient Attender: RICKEY VARELA NP 01/16/2021 09: 51:00 AM [facility] Outpatient [facility] 01/15/2021 12:00:00 AM EDT eCW1 ([facility]) Outpatient Attender: Kirk CHAVIRA Family Medicine [facility] 01/03/2021 10:00:00 AM EDT MEDENT ([facility]) Outpatient Attender: RICKEY VARELA NP 12/19/2020 11: 52:00 AM [facility] Outpatient Attender: RICKEY VARELA NP 12/05/2020 03: 20:00 PM [facility] Outpatient Attender: Kirk CHAVIRA [facility] Medicine [facility] 11/19/2020 08:00:00 AM EDT MEDENT ([facility]) Outpatient Attender: SHANTE lopez 11/15/2020 04:05:00 PM EDT MEDENT ([facility] Outpatient Attender: RICKEY VARELA NP 11/12/2020 10: 56:00 AM [facility] Outpatient Attender: RICKEY VARELA NP 10/02/2020 10: 50:00 AM [facility] Office Visit Attender: Kirk CHAVIRA [facility] 09/30/2020 02:20:00 PM EDT MEDENT ([facility]) Outpatient Attender: RICKEY VARELA NP 09/05/2020 09: 49:00 AM [facility] Outpatient Attender: RICKEY VARELA NP 08/06/2020 10: 46:00 AM [facility] Outpatient Attender: RICKEY VARELA NP 07/30/2020 09: 45:00 AM [facility] 07/23/2020 12:00:00 AM EST eCW1 ([facility]) Outpatient Attender: RICKEY VARELA NP 07/16/2020 10: 27:00 AM [facility] Outpatient Attender: Kirk CHAVIRA [facility] 07/15/2020 09:00:00 AM EST MEDENT ([facility]) Outpatient Attender: Kirk CHAVIRA [facility] 07/03/2020 08:20:00 AM EST MEDENT ([facility]) Outpatient Attender: RICKEY VARELA NP 06/28/2020 10: 23:00 AM [facility] [address] [place] [address] 06/28/2020 12:00:00 AM EST eCW1 ([facility]) Outpatient Attender: BARBER MATTHEWS MD Main office - [facility] 06/18/2020 01:30:00 PM EST MEDENT ([facility] ) (TEL) .[facility] 06/11/2020 12:00:00 AM EST eCW1 ([facility]) Outpatient Attender: DEVON ISAAC PA-C 06/10/2020 10:34:00 AM [facility] Outpatient Attender: RICKEY VARELA NP 05/31/2020 08: 35:00 AM [facility] Outpatient Attender: Kirk CHAVIRA [facility] 05/14/2020 07:40:00 AM EST MEDENT ([facility]) Outpatient Attender: RICKEY VARELA NP 05/10/2020 08: 31:00 AM [facility] Outpatient Attender: Kirk CHAVIRA [facility] 05/07/2020 02:20:00 PM EST MEDENT ([facility]) Outpatient Attender: RICKEY VARELA NP 04/12/2020 11: 11:00 AM [facility] Outpatient Attender: ALEX NICHOLSON [facility] 03/24 10:00:00 AM EST MEDENT ([facility] Outpatient Attender: TEMITOPE DOLAN DO Family Medicine [facility] 04/02/2020 07:20:00 AM EST MED[facility] ([facility]) Outpatient Attender: RICKEY VARELA SCREENING UNIT REGISTERED NURSE 03/22/2020 10: 34:00 AM [facility] (TEL) .[facility] 02/23/2020 12:00:00 AM EDT eCW1 ([facility]) Outpatient Attender: RICKEY VARELA NP 02/16/2020 10: 40:00 AM [facility] Outpatient Attender: RICKEY VARELA NP 02/02/2020 10: 40:00 AM [facility] Outpatient Attender: RICKEY VARELA NP 01/26/2020 10: 06:00 AM [facility] Outpatient Attender: RICKEY ALRLAIS SCREENING UNIT REGISTERED NURSE 01/16/2020 05: 00:00 PM [facility] Outpatient Attender: RICKEY ALRLAIS SCREENING UNIT REGISTERED NURSE 01/04/2020 09: 01:00 AM [facility] Outpatient Attender: RICKEY ALRLAIS SCREENING UNIT REGISTERED NURSE 12/20/2019 12: 03:00 PM [facility] Outpatient Attender: DEVON ISAAC PA-C 12/19/2019 11:47:00 AM [facility] Outpatient Attender: RICKEY KAMIJARLAIS SCREENING UNIT REGISTERED NURSE 12/07/2019 10: 47:00 AM [facility] Outpatient Attender: RICKEY KAMIJARLAIS SCREENING UNIT REGISTERED NURSE 11/29/2019 10: 40:00 AM [facility] Outpatient Attender: RICKEY ALRLAIS SCREENING UNIT REGISTERED NURSE 11/14/2019 11: 34:00 AM [facility] Outpatient Attender: RICKEY ALRLAIS SCREENING UNIT REGISTERED NURSE 11/07/2019 10: 40:00 AM [facility] Outpatient Attender: RICKEY ALRLAIS SCREENING UNIT REGISTERED NURSE 10/25/2019 10: 25:00 AM [facility] Outpatient Attender: RICKEY KAMIJARLAIS SCREENING UNIT REGISTERED NURSE 09/26/2019 04: 20:00 PM [facility] Outpatient Attender: RICKEY ALRLAIS SCREENING UNIT REGISTERED NURSE 09/19/2019 04: 58:00 PM [facility] Immunizations Vaccine Date Status Description Data Source(s) COVID-19 VACCINE Moderna 07/26/2020 12:00:00 AM EST completed [facility] Vaccine Series Complete: YESThis Data wa s Submitted to [facility] Via [employer]. COVID-19 VACCINE, MRNA-1273, LNP-S (MODERNA)/PF 07/26/2020 1 2:00:00 AM EST completed [facility] COVID-19 VACCINE Moderna 06/28/2020 12:00:00 AM EST completed [facility] Vaccine Series Complete: NOThis Data was Submitted to [facility] Via [employer]. COVID-19 VACCINE, MRNA-1273, LNP-S (MODERNA)/PF 06/28/2020 1 2:00:00 AM EST completed [facility] VARICELLA-ZOSTER VIRUS GLYCOPROTEIN E,REC/AS01B ADJUVA NT/PF 05/05/2020 12:00:00 AM EST completed [facility] INFLUENZA VIRUS VACCINE QUADRIVAL SPLIT 2019-(65 YR UP)/PF 02/12/2020 12:00:00 AM EDT completed [facility] Medications Medication Brand Name Start Date Product Form Dose Route Admi nistrative Instructions Pharmacy Instructions Status Indications Reaction Description Data Source(s) Cephalexin 500 MG Oral Tablet Cephalexin 03/30/2021 12:00:00 AM EDT ORAL active MEDENT ([facility]) pantoprazole 40 MG Delayed Release Oral [...] MEALS AND AT BEDTIME S OLD: 03/14/2021 [facility] pantoprazole 40 MG Delayed Release Oral [...] 1.0 {tablet} active Adderall 20 MG eCW1 ([facility]) Amphetamine aspartate 2.5 MG / Amphetami ne Sulfate 2.5 MG / Dextroamphetamine saccharate 2.5 MG / Dextroamphetamine Sulfate 2.5 MG Oral Tablet [Adderall] Adderall 10 MG Adderall 10 MG 10/24/2020 12:00:00 AM EDT 1.0 {tablet} active Adderall 10 MG eCW1 ([facility]) 0.005 % 09/11/2020 12:00:00 AM EDT ointment [...] Unspecified 07/26/2020 12:00:00 AM EST completed [facility] ([facility]) Medication administered onsite Amphetamine aspartate 5 MG / Amphetamine Sulfate 5 MG / Dextroamphetamine saccharate 5 MG / Dextroamphetamine Sulfate 5 MG Oral Tablet [Adderall] Adderall 20 MG Adderall 20 MG 07/23/2020 12:00:00 AM EST 1.0 {tablet} active Adderall 20 MG eCW1 ([facility]) Walker Wheels/Fixed With 5 Adjustment Holes/3" 07/18/2020 12:00:00 AM EST active MEDENT ([facility]) Calcium Carbonate 298 MG / Magnesium Chl oride 596 MG Delayed Release Oral Tablet [Slow-Mag Reformulated Jun 2011] Slow-Mag 07/03/2020 12:00:00 AM EST ORAL completed MED[facility] ([facility]) Covid-19 vaccine, Unspecified 06/28/2020 12:00:00 AM EST completed [facility] ([facility]) Medication administered onsite Ergocalciferol 09063 UNT Oral Capsule Ergocalciferol 05/14/2020 12:00:00 AM EST active MED[facility] ( [facility]) Shingrix Shingrix 02/26/2020 12:00:00 AM EDT SUBCUTANEOUS completed MED[facility] ([facility]) 5 mg/gram (0.5 %) 01/09/2020 12:00:00 [...] type / Coverage type Policy ID Covered constitution party ID Covered constitution party's relationship to perez Policy Perez Plan Information MEDICARE [id number] SP [id number] MEDICARE [id number] SP [id number] A MEDICARE A [id number] Self [id number] [place] [id number] S [id number] MEDICARE A [id number] Self [id number] [id number] MEDICARE [id number] SP [id number] M10 MEDICARE [id number] SP [id number] A Medicare Natl Gov't Servi Medicare Primary [id number] Self [id number] [place] MED[place] [id number] S [id number] Medicare Natl Gov't Servi Medicare Primary [id number] Self [id number] MEDICARE [id number] SP [id number] A Medicare Natl Gov't Servi Medicare Primary [id number] Self [id number] [employer] [id number] SP [id number] POMCO U [id number] Self [id number] POMCO [id number] SP [id number] POMCO U [id number] Self [id number] UMR [facility] [id number] SP [id number] UMR U [id number] Self [id number] UMR [facility] [id number] SP [id number] UMR U [id number] Self [id number] Umr Medigap Part B [id number] Self [id number] Medicare Medicare Primary [id number] Self [id number] [place] [id number] Self [id number] Medicare Medicare Primary [id number] Self [id number] Medicare Medicare Primary [id number]. [id number] Self [id number] [place] Primary [id number] Self [id number] ANSI-Medicare Part B [id number] ANSI-Commercial [id number] ANSI-Medicare Part B [id number] ANSI-Commercial [id number] [facility] MEDICARE DIVISION [id number] S [id number] [place]ICARE [place] [id number] S [id number] [facility] [id number] S [id number] ANSI-Medicare Part B [id number] ANSI-Commercial [id number] ANSI-Commercial [id number] ANSI-Medicare Part B [id number] ANSI-Medicare Part B [id number] ANSI-Commercial [id number] ANSI-Medicare Part B [id number] ANSI-Commercial [id number] Medicare Medicare Primary [id number]. [id number] Self [id number] ANSI-Commercial [id number] ANSI-Medicare Part B [id number] Medicare Medicare Primary [id number] Self [id number] ANSI-Commercial [id number] ANSI-Medicare Part B [id number] [facility] Part B [id number] Self [id number] MEDICARE C [id number] S [id number] A MEDICARE [id number] SP [id number] A [employer] [id number] SP [id number] [employer] PPO O [id number] S [id number] [employer] Medigap Part B [id number] Self [id number] [employer] Medigap Part B [id number] Self [id number] Medicare [place] Medicare Primary [id number] Self [id number] [employer] Medigap Part B [id number] [id number] Self [id number] [employer] [id number] SP [id number] [employer] Commercial [id number] Self Medicare [place] Medicare Primary [id number] Self [facility] [id number] 18 [id number] [facility] [id number] 2 [id number] 18 [id number] MEDICARE PART A-CLINIC [id number] 18 [id number] A MEDICARE [id number] SP [id number] M10 [id number] R [facility] [id number] SP [id number] UMR [id number] S [id number] [place]ICARE [place] [id number] S [id number] [place] MEDICARE DIVISION [id number] S [id number] UMR [id number] S [id number] [place] MEDICARE DIVISION [id number] S [id number] MEDICARE [place] [id number] S [id number] UMR [id number] S [id number] [place] MEDICARE DIVISION UNAVAILABLE S UNAVAILABLE [place] MEDICARE DIVISION [id number] S [id number] [place] MEDICARE DIVISION [id number] S [id number] MEDICARE C [id number] S [id number] R O [id number] S [id number] [place] MEDICARE DIVISION [id number] S [id number] [place]ICARE [place] [id number] S [id number] R [id number] S [id number] Medicare Medicare Primary [id number] Self [id number] Commercial [id number] Self [id number] Medicare [place] Medicare Primary [id number] Self [id number] Problems, Conditions, and Diagnoses Code Display Name Description Problem Type Effective Dates Data Source(s) G47.9 Sleep disorder, unspecified SLEEP DISORDER, UNSPECIFIE D Diagnosis 01/16/2021 09:51:00 AM [facility] F31.9 Bipolar disorder, unspecified BIPOLAR DISORDER, UNSPEC IFIED Diagnosis 01/16/2021 09:51:00 AM [facility] F43.23 Adjustment disorder with mixed anxiety a nd depressed mood ADJUSTMENT DISORDER WITH MIXED ANXIETY AND DEPRESS Diagnosis 12/19/2020 11:52:00 AM [facility] R25.1 Tremor, unspecified TREMOR, UNSPECIFIED Diagnosis 0 07/16/2020 10:27:00 AM [facility] G25.2 Other specified forms of tremor OTHER SPECIFIED FORMS OF TREMOR Diagnosis 05/31/2020 08:35:00 AM [facility] E55.9 Vitamin D deficiency Vitamin D deficiency, unspecified Problem 01/23/2021 12:00:00 AM EDT eCW1 ([facility]) F43.23 [id number] Adjustment disorder with mixed a nxiety and depressed mood Problem 11/12/2020 12:00:00 AM EDT eCW1 ([facility]) G25.2 [id number] Coarse tremors Problem 07/01/2020 12:00:00 A M EST eCW1 ([facility]) Surgeries/Procedures Procedure Description Date Indications Data Source(s) OFFICE OUTPATIENT VISIT 15 MINUTES 03/06/2021 12:00:00 AM EDT MEDENT ([facility]) OFFICE OUTPATIENT NEW 45 MINUTES 02/27/2021 12:00:00 A M EDT MED[facility] ([facility], ) OFFICE OUTPATIENT VISIT 15 MINUTES 02/24/2021 12:00:00 AM EDT MEDENT ([facility]) Trans Care SRV Aft DC W/I 14D, Comm W/I 2 Dys Med Decs 02/17/2021 12:00:00 AM EDT MEDENT ([facility]) OFFICE OUTPATIENT VISIT 25 MINUTES 01/03/2021 12:00:00 AM EDT MED[facility] ([facility]) OFFICE OUTPATIENT VISIT 25 MINUTES 11/19/2020 12:00:00 AM EDT MED[facility] ([facility]) OFFICE OUTPATIENT VISIT 15 MINUTES 11/15/2020 12:00:00 AM EDT MED[facility] ([facility]) MRI BRAIN BRAIN STEM W/O CONTRAST MATERIAL 07/20/2020 12:00:00 AM EST MEDENT ([facility] ) MRI BRAIN BRAIN STEM W/O CONTRAST MATERIAL 07/20/2020 12:00:00 AM EST MED[facility] ([facility], ) MRI SPINAL CANAL LUMBAR W/O CONTRAST MATERIAL 07/20/19 21 12:00:00 AM EST MED[facility] ([facility], ) MRI SPINAL CANAL LUMBAR W/O CONTRAST MATERIAL 07/20/19 21 12:00:00 AM EST MED[facility] ([facility], ) OFFICE OUTPATIENT VISIT 15 MINUTES 07/15/2020 12:00:00 AM EST MED[facility] ([facility]) NON-INVASIVE PHYSIOLOGIC STUDY EXTREMITY 3 LEVLS 07/05 12:00:00 AM EST MED[facility] ([facility], ) NON-INVASIVE PHYSIOLOGIC STUDY EXTREMITY 3 LEVLS 07/05 12:00:00 AM EST MED[facility] ([facility], ) TSTG ANS FUNCJ CARDIOVAGAL INNERVAJ PARASYMP 12:00:00 AM EST MED[facility] ([facility], ) TESTING AUTONOMIC NERVOUS SYSTEM FUNCTION 07/05/2020 1 2:00:00 AM EST MED[facility] ([facility], ) ELECTROENCEPHALOGRAM W/REC AWAKE&ASLEEP 07/04/2020 12: 00:00 AM EST MED[facility] ([facility], ) ELECTROENCEPHALOGRAM W/REC AWAKE&ASLEEP 07/04/2020 12: 00:00 AM EST MED[facility] ([facility], ) OFFICE OUTPATIENT VISIT 25 MINUTES 07/03/2020 12:00:00 AM EST MEDENT ([facility]) Needle electromyography, each extremity, with related paraspinal areas, when performed, done with nerve conduction, amplitude and latency/velocity study; complete, five or more muscles studied, innervated by three or more nerves or four or more spinal levels (list separately in addition to the code for primary procedure). 06/24/2020 12:00:00 AM EST MEDEN T ([facility], ) Needle electromyography, each extremity, with related paraspinal areas, when performed, done with nerve conduction, amplitude and latency/velocity study; complete, five or more muscles studied, innervated by three or more nerves or four or more spinal levels (list separately in addition to the code for primary procedure). 06/24/2020 12:00:00 AM EST MEDEN T ([facility], ) Nerve Conduction 11-12 Studies 06/24/2020 12:00:00 AM EST MED[facility] ([facility], ) PARING/CUTTING BENIGN HYPERKERATOTIC LESION 2-4 2020 12:00:00 AM EST [facility] ([facility] DEBRIDEMENT NAIL ANY METHOD 6/> 06/19/2020 12:00:00 AM EST [facility] ([facility] Results ID Date Data Source [id number] 03/27/2021 04:00:00 PM EDT [facility] ([facility]) Name Value Range Interpretation Code Description Data Mary rce(s) Supporting Document(s) Bacteria identified in Urine by Culture Laboratory test result Normal (applies to non-numeric results) [facility]) <content>FULL REPORT IN LAB NOTES (eCW [...] FOR ESBL</content>
<content></content> ID Date Data Source [id number] 03/27/2021 04:00:00 PM EDT [facility]) Name Value Range Interpretation Code Description Data Mary rce(s) Supporting Document(s) Appearance, Urine Laboratory test result Normal (applies to non-numeric results) [facility]) Specific [place] Urine Auto 1.004 1.002-1.035 Norm al (applies to non-numeric results) [facility]) Color, Urine Laboratory test result Normal (applies to non -numeric results) [facility]) PH,Urine 6.0 units 5.0-9.0 Normal (applies to non-numeric resul ts) [facility] ([facility]) Glucose, Urine (Ua) Auto Laboratory test result Normal (applies to non-numeric results) [facility]) Protein, Urine Auto Laboratory test result Samantha l (applies to non-numeric results) [facility] [facility] ([facility]) Ketone, Urine Auto Laboratory test result Normal (applies to non-numeric results) [facility] ([facility]) Urobilinogen, Urine Auto 0.2 mg/dL 0.0-2.0 Normal (applies to non-numeric results) [facility] ([facility]) Nitrite, Urine Auto Laboratory test result Samantha l (applies to non-numeric results) [facility] ([facility]) Bilirubin, Urine Auto Laboratory test result Nor mal (applies to non-numeric results) [facility] ([facility]) Blood, Urine Blood Laboratory test result Normal (applies to non-numeric results) [facility] ([facility]) Leukocyte Esterase, Urine Auto Laboratory test result Normal (applies to non- numeric results) [facility]) WBC, Urine Auto 1 /HPF 0-3 Normal (applies to non-numeric results) [facility]) Squamous Epithelial Cell Ur AU 0 /HPF 0-6 N ormal (applies to non-numeric results) [facility] ([facility]) Bacteria, Urine Auto Laboratory test result Norm al (applies to non-numeric results) [facility] ([facility]) RBC, Urine Auto 0 /HPF 0-3 Normal (applies to non-numeric results) [facility]) Hyaline Cast, Urine Auto 0 /LPF 0-1 Normal (applies to non -numeric results) [facility]) ID Date Data Source [id number] 02/01/2021 10:44:00 AM EDT [facility] Name Value Range Interpretation Code Description Data Mary rce(s) Supporting Document(s) SARS-CoV-2 (COVID 19) NEGATIVE - SARS-CoV-2 (COVID19) [facility] This lab was ordered by [facility] a nd reported by [facility]. ID Date Data Source [id number] 01/26/2021 10:24:00 PM EDT [facility] Name Value Range Interpretation Code Description Data Mary rce(s) Supporting Document(s) SARS coronavirus 2 RNA [Presence] in Res piratory specimen by DAWIT with probe detection NEGATIVE [facility] This lab was ordered by [facility] a nd reported by [facility]. ID Date Data Source [id number] 01/26/2021 06:09:00 PM EDT [facility] ([facility]) Name Value Range Interpretation Code Description Data Mary rce(s) Supporting Document(s) Glucose [Mass/volume] in Capillary blood by Glucometer 126 mg/dL 83-110 Above high normal [facility]) ID Date Data Source [id number] 01/26/2021 05:53:00 PM EDT [facility]) Name Value Range Interpretation Code Description Data Mary rce(s) Supporting Document(s) Ammonia [Mass/volume] in Blood 13 uMOL/L N ormal (applies to non-numeric results) [facility] ([facility]) Lactate [Mass/volume] in Serum or Plasma 1.6 mmol/L 0.4-2.0 Normal (applies to non-numeric results) [facility]) Y/N query for Sepsis Lactate Rule: Y ID Date Data Source [id number] 01/26/2021 05:53:00 PM EDT [facility]) Name Value Range Interpretation Code Description Data Mary rce(s) Supporting Document(s) Alt/SGPT 26 U/L 12-78 Normal (applies to non-numeric resul ts) [facility] ([facility]) Ast/Sgot 13 U/L 7-37 Normal (applies to non-numeric resul ts) [facility] ([facility]) Alkaline Phosphatase 85 U/L 45-117 Normal (applies to non-num caren results) [facility] ([facility]) Bilirubin,Total 0.6 mg/dL 0.2-1.0 Normal (applies to non-numeric results) [facility] ([facility]) Bilirubin,Direct 0.1 mg/dL 0.0-0.2 Normal (applies to non-numeric results) [facility]) Total Protein 7.0 GM/DL 6.4-8.2 Normal (applies to non-numeric re sults) [facility] ([facility]) Albumin 3.3 GM/DL 3.2-5.2 Normal (applies to non-numeric resul ts) [facility] ([facility]) Albumin/Globulin Ratio 0.9 1.2-2.2 Below low normal [facility] ([facility]) ID Date Data Source [id number] 01/26/2021 05:53:00 PM EDT [facility]) Name Value Range Interpretation Code Description Data Mary rce(s) Supporting Document(s) Glucose, Fasting 119 mg/dL 70-100 Above high normal [facility] ([facility]) Blood Urea Nitrogen 20 mg/dL 7-18 Above high normal [facility] ([facility]) Creatinine For GFR 1.45 mg/dL 0.55-1.30 Above high normal [facility] ([facility]) Sodium Level 143 meq/L 136-145 Normal (applies to non-numeric res ults) [facility]) Glomerular Filtration Rate 37.1 Below low normal [facility] ([facility]) <content>Units are mL/min/1.73 m2</content>
<content></content>
<content>Chronic Kidney Disease Staging per NKF:</content>
<content></content>
<content>Stage I & II GFR >=60 Normal to Mildly Decreased</content>
<content>Stage III GFR 30- 59 Moderately Decreased</content>
<content>Stage IV GFR 15-29 Severely Decreased</content>
<content>Stage V GFR <15 Very Little GFR Left</content>
<content>ESRD GFR <15 on DATABASE MANAGEMENT SYSTEM SPECIALIST</content>
<content></content> Chloride Level 112 meq/L 98-107 Above high normal [facility] ([facility]) Potassium Serum 3.8 meq/L 3.5-5.1 Normal (applies to non-numeric results) [facility] ([facility]) Carbon Dioxide Level 25 meq/L 21-32 Normal (applies to non-num caren results) [facility] ([facility]) Calcium Level 8.8 mg/dL 8.8-10.2 Normal (applies to non-numeric re sults) [facility] ([facility]) Anion Gap 6 meq/L 8-16 Below low normal [facility] ( [facility]) ID Date Data Source [id number] 01/26/2021 05:53:00 PM EDT [facility] ([facility]) Name Value Range Interpretation Code Description Data Mary rce(s) Supporting Document(s) Osmolality of Serum or Plasma 296 MOSM/KG 280-301 No rmal (applies to non-numeric results) [facility] ([facility]) Thyrotropin [Units/volume] in Serum or Plasma 1.400 uIU/ML 0. 358-3.740 Normal (applies to non-numeric results) [facility] ([facility]) ID Date Data Source [id number] 01/26/2021 05:53:00 PM EDT [facility]) Name Value Range Interpretation Code Description Data Mary rce(s) Supporting Document(s) Red Blood Count 3.73 10 4.00-5.40 Below low normal [facility] ([facility]) White Blood Count 19.8 10 4.0-10.0 Above high normal [facility] ([facility]) A Pathologist review of this differentia l can help in the evaluation of a differential diagnosis. Please order a Pathologist Review (PERISM) if deemed necessary. Results are subject to change if a Pathologist Review is performed. Hemoglobin 11.7 g/dL 12.0-15.5 Below low normal [facility] ( [facility]) Hematocrit 36.6 % 36.0-47.0 Normal (applies to non-numeric resul ts) [facility] ([facility]) Mean Corpuscular HGB Conc 32.0 g/dL 32.0-36.5 Normal (applies to non-numeric results) [facility] ([facility]) Mean Corpuscular Volume 98.1 fl 80.0-96.0 Above high normal [facility] ([facility]) Mean Corpuscular Hemoglobin 31.4 pg 27.0-33.0 Norm al (applies to non-numeric results) [facility] ([facility]) Red Cell Distribution Width 13.4 % 11.5-14.5 Norm al (applies to non-numeric results) [facility] ([facility]) Platelet Count, Automated 315 10 150-450 Normal (applies to non-numeric results) [facility] ([facility]) Nucleated Red Blood Cell % 0.0 % 0-0 Normal (applies to n on-numeric results) [facility] ([facility]) ID Date Data Source [id number] 01/26/2021 05:53:00 PM EDT [facility] ([facility]) Name Value Range Interpretation Code Description Data Mary rce(s) Supporting Document(s) Bands 2 % Normal (applies to non-numeric resul ts) [facility] ([facility]) Neutrophils 85 % 28-66 Above high normal [facility] ([facility]) Lymphocytes 6 % 16-44 Below low normal [facility] ([facility]) Monocytes 7 % 0-5 Above high normal [facility] ([facility]) Platelet Clumps Laboratory test result Normal (a pplies to non-numeric results) [facility] ([facility]) ID Date Data Source [id number] 01/26/2021 05:53:00 PM EDT [facility] ([facility]) Name Value Range Interpretation Code Description Data Mary rce(s) Supporting Document(s) Platelets [#/volume] in Blood by Estimate Laboratory test result Normal (applies to non-numeric results) [facility] ([facility]) ID Date Data Source [id number] 01/26/2021 05:53:00 PM EDT [facility] ([facility]) Name Value Range Interpretation Code Description Data Mary rce(s) Supporting Document(s) Appearance, Urine RFX Laboratory test result Nor mal (applies to non-numeric results) [facility] ([facility]) Color, Urine RFX Laboratory test result Normal ( applies to non-numeric results) [facility] ([facility]) Protein, Urine Auto RFX Laboratory test result Above high normal [facility] ([facility]) Specific [place] Ur Auto RFX 1.003 1.002-1.035 Nor mal (applies to non-numeric results) [facility] ([facility]) PH,Urine RFX 7.0 units 5.0-9.0 Normal (applies to non-numeric res ults) [facility] ([facility]) Urobilinogen, Urine Auto RFX 0.2 mg/dL 0.0-2.0 Nor mal (applies to non-numeric results) [facility] ([facility]) Ketone, Urine Auto RFX Laboratory test result No rmal (applies to non-numeric results) [facility] ([facility]) Glucose, Urine (Ua) Auto RFX Laboratory test result Normal (applies to non- numeric results) [facility]) Bilirubin, Urine Auto RFX Laboratory test result Normal (applies to non- numeric results) [facility] ([facility]) Nitrite, Urine Auto RFX Laboratory test result N ormal (applies to non-numeric results) [facility]) Blood, Urine Blood RFX Laboratory test result Above high n ormal [facility] ([facility]) Leukocyte Esterase Ur Auto RFX Laboratory test result Abov e high normal [facility] ([facility]) WBC, Urine Auto RFX 4 /HPF 0-3 Above high normal [facility] ([facility]) Bacteria, Urine Auto RFX Laboratory test result Above high normal [facility] ([facility]) RBC, Urine Auto RFX 1 /HPF 0-3 Normal (applies to non-nume paula results) [facility] ([facility]) Hyaline Cast, Urine Auto RFX 0 /LPF 0-1 Normal (appl ies to non-numeric results) [facility] ([facility]) Squam Epithelial Cell Ur Aurfx 0 /HPF 0-6 N ormal (applies to non-numeric results) [facility] ([facility]) ID Date Data Source [id number] 01/26/2021 05:53:00 PM EDT [facility] ([facility]) Name Value Range Interpretation Code Description Data Mary rce(s) Supporting Document(s) Venous PH 7.350 units 7.330-7.430 Normal (applies to non-numeric res ults) [facility] ([facility]) Venous Partial Pressure O2 51.0 mmHg 30.0-50.0 Above high normal [facility] ([facility]) Venous Partial Pressure Co2 46.8 mmHg 38.0-50.0 Norm al (applies to non-numeric results) [facility] ([facility]) Venous Hco3 25.3 meq/L 23.0-27.0 Normal (applies to non-numeric resu lts) [facility] ([facility]) Venous Total Co2 26.7 meq/L 24.0-28.0 Normal (applies to non-numeric results) [facility] ([facility]) Venous Standard Hco3 23.7 meq/L Normal (applies to non-num caren results) [facility] ([facility]) Venous O2 Saturation 86.5 % 60.0-80.0 Above high normal [facility] ([facility]) Venous Base Excess -0.7 Normal (applies to non-numer ic results) [facility]) ID Date Data Source [id number] 01/26/2021 05:53:00 PM EDT [facility] ([facility]) Name Value Range Interpretation Code Description Data Mary rce(s) Supporting Document(s) CPK Creatine Phosphokinase 97 U/L 26-192 Samantha l (applies to non-numeric results) [facility] ([facility]) CK-MB Value Mass 1.7 ng/mL Normal (applies to non-numeric results) [facility] ([facility]) MB/CK Relative Index 1.75 Normal (applies to non-num caren results) [facility] ([facility]) <content>DIAGNOSIS CRITERIA</content>
<content>MMB ng/ml Relative Index (RI)</content>
<content>NON-AMI < or = 5 N/A</content>
<content>MANCUSO ZONE > 5 < or = 4</content>
<content>AMI > 5 > 4</content>
<content></content> Troponin I Laboratory test result Normal (applies to non-n umeric results) [facility]) <content>Troponin I Reference Interval f or Siemens Elsa LOCI:</content>
<content></content>
<content>99th Percentile= 0.00-0.045 ng/ml</content>
<content></content>
<content>Risk Stratification:</content>
<content><= 0.10 ng/ml Decreased Risk for Adverse Clinical</content>
<content>Events.</content>
<content>0.10-1.50 ng/ml Increased Risk for Adverse Clinical</content>
<content>Events. Evaluation of additional</content>
<content>criterion and/or repeat testing in 2-6</content>
<content>hours is suggested to rule out myocardial</content>
<content>damage.</content>
<content>>= 1.50 ng/ml Indicative of Myocardial Injury.</content>
<content></content> ID Date Data Source [id number] 01/23/2021 09:36:46 PM EDT [facility] Name Value Range Interpretation Code Description Data Mary rce(s) Supporting Document(s) LITHIUM 0.69 mmol/L (0.60-1.50) [facility] ID Date Data Source [id number] 01/23/2021 12:00:00 AM EDT [facility]CW1 ([facility]) Name Value Range Interpretation Code Description Data Mary rce(s) Supporting Document(s) VENIPUNCTURE VENIPUNCTURE eCW1 ([facility]) ID Date Data Source CBC w/DIFF 01/23/2021 12:00:00 AM EDT [facility]CW1 ([facility]) Name Value Range Interpretation Code Description Data Mary rce(s) Supporting Document(s) 3.86 4.20-6.30 RBC eCW1 ([facility]) 9.4 4.1-10.9 WBC eCW1 ([facility]) 12.0 12.0-18.0 HGB eCW1 ([facility]) 99.5 80.0-97.0 MCV eCW1 ([facility]) 38.4 36.0-51.0 HCT eCW1 ([facility]) 382 140-440 PLT eCW1 ([facility]) 31.3 31.0-36.0 MCHC eCW1 ([facility]) 31.1 26.0-32.0 MCH eCW1 ([facility]) 9.4 7.4-10.4 MPV eCW1 ([facility]) 49.2 36.4-46.3 RDW-SD eCW1 ([facility]) 13.2 11.5-15.5 RDW-CV eCW1 ([facility]) 0.90 0.20-0.90 MONO # eCW1 ([facility]) 2.52 0.60-4.10 LYMPH # eCW1 ([facility]) 0.32 0.00-0.50 EO # eCW1 ([facility]) 5.60 1.60-6.10 NEUT # eCW1 ([facility]) 0.07 0.00-0.10 BASO # eCW1 ([facility]) 26.8 10.0-58.5 LYMPH % eCW1 ([facility]) 59.4 34.0-71.1 NEUT % eCW1 ([facility]) 0.7 0.1-1.2 BASO % eCW1 ([facility]) 9.6 10.0-58.5 MONO % eCW1 ([facility]) 3.4 0.7-7.0 EO % eCW1 ([facility]) 0.10 0.00-0.43 IG% eCW1 ([facility]) 0.01 LOW IG# eCW1 ([facility]) ID Date Data Source PTH,INTACT 01/23/2021 12:00:00 AM EDT eCW1 ([facility]) Name Value Range Interpretation Code Description Data Mary rce(s) Supporting Document(s) 71.3 8.2-83.5 PTH,INTACT [facility]CW1 ([facility]) ID Date Data Source [id number] 01/23/2021 12:00:00 AM EDT eCW1 ([facility]) Name Value Range Interpretation Code Description Data Mary rce(s) Supporting Document(s) 3.7 3.4-5.0 ALBUMIN eCW1 ([facility]) 19 7-18 BUN eCW1 ([facility]) 9.1 8.5-10.1 CALCIUM eCW1 ([facility]) 50.92 >=60.00 GFR NON-AFR.AM eCW1 ([facility]) 61.61 >=60.00 GFR AFR.AM eCW1 ([facility]) 1.1 0.6-1.3 CREATININE eCW1 ([facility]) 106 100-108 CHLORIDE eCW1 ([facility]) 4.5 3.6-5.2 POTASSIUM eCW1 ([facility]) 140 135-145 SODIUM eCW1 ([facility]) 7.7 6.4-8.2 TOTAL PROTEIN eCW1 ([facility]) 0.30 0.20-1.00 T BILIRUBIN [facility] 31.2 21.0-32.0 CO2 eCW1 ([facility]) 104.0 70.0-110.0 GLUCOSE eCW1 ([facility] 96 46-116 ALPI eCW1 ([facility] 16 15-37 AST [facility] 3 5-15 ANION GAP eCW1 ([facility]) 28 30-65 ALTI eCW1 ([facility]) ID Date Data Source [id number] 01/01/2021 11:14:00 AM EDT [facility] ([facility]) Name Value Range Interpretation Code Description Data Mary rce(s) Supporting Document(s) Glucose, Fasting 93 mg/dL 70-100 Normal (applies to non-numeric results) [facility] ([facility]) Creatinine For GFR 1.14 mg/dL 0.55-1.30 Normal (applies to non -numeric results) [facility] ([facility]) Blood Urea Nitrogen 19 mg/dL 7-18 Above high normal [facility]) Sodium Level 143 meq/L 136-145 Normal (applies to non-numeric res ults) [facility] ([facility]) Potassium Serum 4.8 meq/L 3.5-5.1 Normal (applies to non-numeric results) [facility]) Glomerular Filtration Rate 48.9 Normal (applies to n on-numeric results) [facility] ([facility]) <content>Units are mL/min/1.73 m2</content>
<content></content>
<content>Chronic Kidney Disease Staging per NKF:</content>
<content></content>
<content>Stage I & II GFR >=60 Normal to Mildly Decreased</content>
<content>Stage III GFR 30- 59 Moderately Decreased</content>
<content>Stage IV GFR 15-29 Severely Decreased</content>
<content>Stage V GFR <15 Very Little GFR Left</content>
<content>ESRD GFR <15 on DATABASE MANAGEMENT SYSTEM SPECIALIST</content>
<content></content> Chloride Level 110 meq/L 98-107 Above high normal [facility] ([facility]) Anion Gap 1 meq/L 8-16 Below low normal [facility] ( [facility]) Carbon Dioxide Level 32 meq/L 21-32 Normal (applies to non-num caren results) [facility] ([facility]) Ast/Sgot 14 U/L 7-37 Normal (applies to non-numeric resul ts) [facility] ([facility]) Calcium Level 9.1 mg/dL 8.8-10.2 Normal (applies to non-numeric re sults) [facility] ([facility]) Alt/SGPT 26 U/L 12-78 Normal (applies to non-numeric resul ts) [facility] ([facility]) Bilirubin,Total 0.3 mg/dL 0.2-1.0 Normal (applies to non-numeric results) [facility] ([facility]) Alkaline Phosphatase 74 U/L 45-117 Normal (applies to non-num caren results) [facility] ([facility]) Total Protein 6.7 GM/DL 6.4-8.2 Normal (applies to non-numeric re sults) [facility] ([facility]) Albumin/Globulin Ratio 1.2 1.2-2.2 Normal (applies to non-n umeric results) [facility] ([facility]) Albumin 3.6 GM/DL 3.2-5.2 Normal (applies to non-numeric resul ts) [facility] ([facility]) ID Date Data Source [id number] 01/01/2021 11:14:00 AM EDT [facility]) Name Value Range Interpretation Code Description Data Amry rce(s) Supporting Document(s) Thyroid Stimulating Hormone 2.280 uIU/ML 0.358-3.740 Norm al (applies to non- numeric results) [facility] ([facility]) Free T4 0.75 ng/dL 0.76-1.46 Below low normal [facility] ( [facility]) ID Date Data Source [id number] 01/01/2021 11:14:00 AM EDT [facility] ([facility]) Name Value Range Interpretation Code Description Data Mary rce(s) Supporting Document(s) Calcidiol [Mass/volume] in Serum or Plasma 61.3 ng/mL 30.0- 100.0 Normal (applies to non-numeric results) [facility] ([facility]) Cobalamin (Vitamin B12) [Mass/volume] in Serum or Plasma 459 pg/ mL 247-911 Normal (applies to non-numeric results) [facility] ([facility]) VITAMIN B12 NORMAL RANGE NORMAL 247 - 911 PG/ML INDETERMINATE 211 - 246 PG/ML DEFICIENT LESS THAN 211 PG/ML ID Date Data Source [id number] 01/01/2021 11:14:00 AM EDT [facility] ([facility]) Name Value Range Interpretation Code Description Data Mary rce(s) Supporting Document(s) Iron (Fe) 70 ug/dL 50-170 Normal (applies to non-numeric resul ts) [facility] ([facility]) Total Iron Binding Capacity 354 ug/dL 250-450 Norm al (applies to non-numeric results) [facility] ([facility]) Percent Saturation 19.8 % 13.2-45.0 Normal (applies to non-numer ic results) [facility] ([facility]) ID Date Data Source [id number] 01/01/2021 11:14:00 AM EDT [facility] ([facility]) Name Value Range Interpretation Code Description Data Mary rce(s) Supporting Document(s) Ferritin [Mass/volume] in Serum or Plasma 46 ng/mL 8-252 Normal (applies to non- numeric results) [facility] ([facility]) ID Date Data Source [id number] 01/01/2021 11:14:00 AM EDT [facility] ([facility]) Name Value Range Interpretation Code Description Data Mary rce(s) Supporting Document(s) White Blood Count 8.4 10 4.0-10.0 Normal (applies to non-numeri c results) [facility] ([facility]) Hemoglobin 11.7 g/dL 12.0-15.5 Below low normal [facility] ( [facility]) Red Blood Count 3.81 10 4.00-5.40 Below low normal [facility] ([facility]) Hematocrit 38.0 % 36.0-47.0 Normal (applies to non-numeric resul ts) [facility] ([facility]) Mean Corpuscular Hemoglobin 30.7 pg 27.0-33.0 Norm al (applies to non-numeric results) [facility] ([facility]) Mean Corpuscular Volume 99.7 fl 80.0-96.0 Above high normal [facility] ([facility]) Platelet Count, Automated 344 10 150-450 Normal (applies to non-numeric results) [facility] ([facility]) Mean Corpuscular HGB Conc 30.8 g/dL 32.0-36.5 Below low normal [facility] ([facility]) Red Cell Distribution Width 13.6 % 11.5-14.5 Norm al (applies to non-numeric results) [facility] ([facility]) Neutrophils % 53.8 % 36.0-66.0 Normal (applies to non-numeric re sults) [facility] ([facility]) Lymph % 31.0 % 24.0-44.0 Normal (applies to non-numeric resul ts) [facility] ([facility]) Baso % 1.1 % 0.0-1.0 Above high normal [facility] ([facility]) [place] % 9.4 % 2.0-8.0 Above high normal [facility] ([facility]) Eos % 4.3 % 0.0-3.0 Above high normal [facility] ([facility]) Nucleated Red Blood Cell % 0.0 % 0-0 Normal (applies to n on-numeric results) [facility] ([facility]) Immature Granulocyte % 0.4 % 0-3.0 Normal (applies to non-n umeric results) [facility] ([facility]) Neutrophils # 4.6 10 1.5-8.5 Normal (applies to non-numeric re sults) [facility] ([facility]) Lymph # 2.6 10 1.5-5.0 Normal (applies to non-numeric resul ts) [facility] ([facility]) [place] # 0.8 10 0.0-0.8 Normal (applies to non-numeric resul ts) [facility] ([facility]) Eos # 0.4 10 0.0-0.5 Normal (applies to non-numeric resul ts) [facility] ([facility]) Baso # 0.1 10 0.0-0.2 Normal (applies to non-numeric resul ts) [facility] ([facility]) ID Date Data Source [id number] 11/20/2020 03:44:00 PM EDT [facility] ([facility]) Name Value Range Interpretation Code Description Data Mary rce(s) Supporting Document(s) [place] [Mass/volume] in Serum or Plasma 0.54 meq/L 0.60-1.20 Below low normal [facility] ([facility]) ID Date Data Source [id number] 09/30/2020 03:53:00 PM EDT [facility] ([facility]) Name Value Range Interpretation Code Description Data Mary rce(s) Supporting Document(s) Magnesium [Mass/volume] in Serum or Plasma 2.9 mg/dL 1.8-2.4 Above high normal [facility] ([facility]) [place] [Mass/volume] in Serum or Plasma 0.64 meq/L 0.60-1. 20 Normal (applies to non-numeric results) [facility] ([facility]) ID Date Data Source [id number] 06/28/2020 10:43:00 AM EST [facility] ([facility]) Name Value Range Interpretation Code Description Data Mary rce(s) Supporting Document(s) Cobalamin (Vitamin B12) [Mass/volume] in Serum or Plasma 575 pg/ mL 247-911 Normal (applies to non-numeric results) [facility] ([facility]) VITAMIN B12 NORMAL RANGE NORMAL 247 - 911 PG/ML INDETERMINATE 211 - 246 PG/ML DEFICIENT LESS THAN 211 PG/ML Calcidiol [Mass/volume] in Serum or Plasma 49.4 ng/mL 30.0- 100.0 Normal (applies to non-numeric results) [facility] ([facility]) Ferritin [Mass/volume] in Serum or Plasma 96 ng/mL 8-252 Normal (applies to non- numeric results) [facility] ([facility]) ID Date Data Source [id number] 06/28/2020 10:43:00 AM EST [facility] ([facility]) Name Value Range Interpretation Code Description Data Mary rce(s) Supporting Document(s) Iron (Fe) 101 ug/dL 50-170 Normal (applies to non-numeric resul ts) [facility] ([facility]) Total Iron Binding Capacity 332 ug/dL 250-450 Norm al (applies to non-numeric results) [facility] ([facility]) Percent Saturation 30.4 % 13.2-45.0 Normal (applies to non-numer ic results) [facility] ([facility]) ID Date Data Source [id number] 06/28/2020 10:43:00 AM EST [facility] ([facility]) Name Value Range Interpretation Code Description Data Mary rce(s) Supporting Document(s) Thyroid Stimulating Hormone 0.831 uIU/ML 0.358-3.740 Norm al (applies to non- numeric results) [facility] ([facility]) Free T4 0.93 ng/dL 0.76-1.46 Normal (applies to non-numeric resul ts) [facility] ([facility]) ID Date Data Source [id number] 06/28/2020 10:43:00 AM EST [facility] ([facility]) Name Value Range Interpretation Code Description Data Mary rce(s) Supporting Document(s) White Blood Count 8.5 10 4.0-10.0 Normal (applies to non-numeri c results) [facility] ([facility]) Hemoglobin 11.0 g/dL 12.0-15.5 Below low normal [facility] ( [facility]) Red Blood Count 3.62 10 4.00-5.40 Below low normal [facility] ([facility]) Mean Corpuscular Volume 100.3 fl 80.0-96.0 Above high normal [facility] ([facility]) Hematocrit 36.3 % 36.0-47.0 Normal (applies to non-numeric resul ts) [facility] ([facility]) Mean Corpuscular Hemoglobin 30.4 pg 27.0-33.0 Norm al (applies to non-numeric results) [facility] ([facility]) Mean Corpuscular HGB Conc 30.3 g/dL 32.0-36.5 Below low normal [facility] ([facility]) Red Cell Distribution Width 12.7 % 11.5-14.5 Norm al (applies to non-numeric results) [facility] ([facility]) Platelet Count, Automated 407 10 150-450 Normal (applies to non-numeric results) [facility] ([facility]) Lymph % 28.9 % 24.0-44.0 Normal (applies to non-numeric resul ts) [facility] ([facility]) Neutrophils % 56.4 % 36.0-66.0 Normal (applies to non-numeric re sults) [facility] ([facility]) [place] % 9.4 % 0.0-5.0 Above high normal [facility] ([facility]) Eos % 4.3 % 0.0-3.0 Above high normal [facility] ([facility]) Baso % 0.8 % 0.0-1.0 Normal (applies to non-numeric resul ts) [facility] ([facility]) Immature Granulocyte % 0.2 % 0-3.0 Normal (applies to non-n umeric results) [facility] ([facility]) Nucleated Red Blood Cell % 0.0 % 0-0 Normal (applies to n on-numeric results) [facility] ([facility]) Lymph # 2.5 10 1.5-5.0 Normal (applies to non-numeric resul ts) [facility] ([facility]) Neutrophils # 4.8 10 1.5-8.5 Normal (applies to non-numeric re sults) [facility] ([facility]) Eos # 0.4 10 0.0-0.5 Normal (applies to non-numeric resul ts) [facility] ([facility]) [place] # 0.8 10 0.0-0.8 Normal (applies to non-numeric resul ts) [facility] ([facility]) Baso # 0.1 10 0.0-0.2 Normal (applies to non-numeric resul ts) [facility] ([facility]) ID Date Data Source [id number] 06/28/2020 10:43:00 AM EST [facility] ([facility]) Name Value Range Interpretation Code Description Data Mary rce(s) Supporting Document(s) Glucose, Fasting 97 mg/dL 70-100 Normal (applies to non-numeric results) [facility] ([facility]) Blood Urea Nitrogen 19 mg/dL 7-18 Above high normal [facility] ([facility]) Creatinine For GFR 1.25 mg/dL 0.55-1.30 Normal (applies to non -numeric results) [facility] ([facility]) Glomerular Filtration Rate 44.1 Normal (applies to n on-numeric results) [facility] ([facility]) <content>Units are mL/min/1.73 m2</content>
<content></content>
<content>Chronic Kidney Disease Staging per NKF:</content>
<content></content>
<content>Stage I & II GFR >=60 Normal to Mildly Decreased</content>
<content>Stage III GFR 30- 59 Moderately Decreased</content>
<content>Stage IV GFR 15-29 Severely Decreased</content>
<content>Stage V GFR <15 Very Little GFR Left</content>
<content>ESRD GFR <15 on DATABASE MANAGEMENT SYSTEM SPECIALIST</content>
<content></content> Sodium Level 141 meq/L 136-145 Normal (applies to non-numeric res ults) [facility] ([facility]) Chloride Level 106 meq/L 98-107 Normal (applies to non-numeric r esults) [facility] ([facility]) Carbon Dioxide Level 30 meq/L 21-32 Normal (applies to non-num caren results) [facility] ([facility]) Potassium Serum 3.8 meq/L 3.5-5.1 Normal (applies to non-numeric results) [facility] ([facility]) Calcium Level 9.6 mg/dL 8.8-10.2 Normal (applies to non-numeric re sults) [facility] ([facility]) Anion Gap 5 meq/L 8-16 Below low normal [facility] ( [facility]) Alkaline Phosphatase 80 U/L 45-117 Normal (applies to non-num caren results) [facility] ([facility]) Alt/SGPT 29 U/L 12-78 Normal (applies to non-numeric resul ts) [facility] ([facility]) Ast/Sgot 14 U/L 7-37 Normal (applies to non-numeric resul ts) [facility] ([facility]) Bilirubin,Total 0.5 mg/dL 0.2-1.0 Normal (applies to non-numeric results) [facility] ([facility]) Total Protein 7.0 GM/DL 6.4-8.2 Normal (applies to non-numeric re sults) [facility] ([facility]) Albumin 3.7 GM/DL 3.2-5.2 Normal (applies to non-numeric resul ts) [facility] ([facility]) Albumin/Globulin Ratio 1.1 1.2-2.2 Below low normal [facility] ([facility]) ID Date Data Source [id number] 06/02/2020 12:00:00 AM EST [facility] Name Value Range Interpretation Code Description Data Mary rce(s) Supporting Document(s) SARS coronavirus 2 RNA [Presence] in Res piratory specimen by DAWIT with probe detection NEGATIVE [facility] This lab was ordered by Ham Montesinos and reported by [employer]. ID Date Data Source [id number] 06/02/2020 12:00:00 AM EST [facility] Name Value Range Interpretation Code Description Data Mary rce(s) Supporting Document(s) Carestart Rapid COVID Antigen Test Negative [facility] This lab was reported by Ham mari. ID Date Data Source [id number] 05/08/2020 11:00:00 AM EST [facility] ([facility]) Name Value Range Interpretation Code Description Data Mary rce(s) Supporting Document(s) Bacteria identified in Urine by Culture Laboratory test result Normal (applies to non-numeric results) [facility] ([facility]) FULL REPORT IN LAB NOTES ([facility] and [facility] ). NO GROWTH ID Date Data Source [id number] 05/08/2020 11:00:00 AM EST [facility] ([facility]) Name Value Range Interpretation Code Description Data Mary rce(s) Supporting Document(s) Appearance, Urine Laboratory test result Normal (applies to non-numeric results) [facility] ([facility]) Color, Urine Laboratory test result Normal (applies to non -numeric results) [facility] ([facility]) PH,Urine 7.0 units 5.0-9.0 Normal (applies to non-numeric resul ts) [facility] ([facility]) Specific [place] Urine Auto 1.003 1.002-1.035 Norm al (applies to non-numeric results) [facility] ([facility]) Protein, Urine Auto Laboratory test result Samantha l (applies to non-numeric results) [facility] ([facility]) Glucose, Urine (Ua) Auto Laboratory test result Normal (applies to non-numeric results) [facility] ([facility]) Ketone, Urine Auto Laboratory test result Normal (applies to non-numeric results) [facility] ([facility]) Urobilinogen, Urine Auto 0.2 mg/dL 0.0-2.0 Normal (applies to non-numeric results) [facility] ([facility]) Nitrite, Urine Auto Laboratory test result Samantha l (applies to non-numeric results) [facility] ([facility]) Bilirubin, Urine Auto Laboratory test result Nor mal (applies to non-numeric results) [facility] ([facility]) Leukocyte Esterase, Urine Auto Laboratory test result Abov e high normal [facility] ([facility]) Blood, Urine Blood Laboratory test result Normal (applies to non-numeric results) [facility] ([facility]) RBC, Urine Auto 0 /HPF 0-3 Normal (applies to non-numeric results) [facility] ([facility]) WBC, Urine Auto 1 /HPF 0-3 Normal (applies to non-numeric results) [facility] ([facility]) Bacteria, Urine Auto Laboratory test result Norm al (applies to non-numeric results) [facility] ([facility]) Hyaline Cast, Urine Auto 0 /LPF 0-1 Normal (applies to non -numeric results) [facility] ([facility]) Squamous Epithelial Cell Ur AU 0 /HPF 0-6 N ormal (applies to non-numeric results) [facility] ([facility]) ID Date Data Source [id number] 05/07/2020 04:59:00 PM EST [facility] ([facility]) Name Value Range Interpretation Code Description Data Mary rce(s) Supporting Document(s) Thyroid Stimulating Hormone 1.040 uIU/ML 0.358-3.740 Norm al (applies to non- numeric results) [facility] ([facility]) Free T4 1.02 ng/dL 0.76-1.46 Normal (applies to non-numeric resul ts) [facility] ([facility]) ID Date Data Source [id number] 05/07/2020 04:59:00 PM EST [facility] ([facility]) Name Value Range Interpretation Code Description Data Mary rce(s) Supporting Document(s) Folate Laboratory test result Normal (applies to non-n umeric results) [facility] ([facility]) FOLATE NORMAL RANGE NORMAL GREATER THAN 5.4 NG/ML INDETERMINATE 3.4-5.4 NG/ML DEFICIENT LESS THAN 3.4 NG/ML Vitamin B12 Level 671 pg/mL Normal (applies to non-numeri c results) [facility] ([facility]) VITAMIN B12 NORMAL RANGE NORMAL 247 - 911 PG/ML INDETERMINATE 211 - 246 PG/ML DEFICIENT LESS THAN 211 PG/ML ID Date Data Source [id number] 05/07/2020 04:59:00 PM EST [facility] ([facility]) Name Value Range Interpretation Code Description Data Mary rce(s) Supporting Document(s) [place] [Mass/volume] in Serum or Plasma 0.61 meq/L 0.60-1. 20 Normal (applies to non-numeric results) [facility] ([facility]) ID Date Data Source [id number] 05/07/2020 04:59:00 PM EST [facility] ([facility]) Name Value Range Interpretation Code Description Data Mary rce(s) Supporting Document(s) Bacteria identified in Urine by Culture Laboratory test result [facility] ([facility]) ID Date Data Source [id number] 05/02/2020 12:41:00 PM EST [facility] ([facility]) Name Value Range Interpretation Code Description Data Mray rce(s) Supporting Document(s) Ferritin [Mass/volume] in Serum or Plasma 72 ng/mL 8-252 Normal (applies to non- numeric results) [facility] ([facility]) ID Date Data Source [id number] 05/02/2020 12:41:00 PM EST [facility] ([facility]) Name Value Range Interpretation Code Description Data Mary rce(s) Supporting Document(s) Ujbbo-4-Unmsklib % 5.1 % 2.9-4.9 Above high normal [facility] ([facility]) Albumin % 56.7 % 55.8-66.1 Normal (applies to non-numeric resul ts) [facility] ([facility]) Delnc-5-Qdekfwpwd % 12.7 % 7.1-11.8 Above high normal [facility] ([facility]) Qwsf-4-Ylpmkgwtw % 7.3 % 4.7-7.2 Above high normal [facility] ([facility]) Jwgh-6-Zxnhtxanr % 7.2 % 3.2-6.5 Above high normal [facility] ([facility]) Gamma Globulin % 11.0 % 11.1-18.8 Below low normal [facility] ([facility]) Albumin 4.08 GM/DL 3.29-5.55 Normal (applies to non-numeric resul ts) [facility] ([facility]) Tedpz-1-Jfpwfwedr 0.91 GM/DL 0.42-0.99 Normal (applies to non- numeric results) [facility] ([facility]) Scppf-9-Dtipptpzo 0.37 GM/DL 0.17-0.41 Normal (applies to non- numeric results) [facility] ([facility]) Xmvq-0-Pfaxckvha 0.53 GM/DL 0.28-0.60 Normal (applies to non-numeric results) [facility] ([facility]) Wzuu-3-Fcmutxkzn 0.52 GM/DL 0.19-0.55 Normal (applies to non-numeric results) [facility] ([facility]) Gamma Globulins 0.79 GM/DL 0.65-1.58 Normal (applies to non-numeric results) [facility] ([facility]) Total Protein 7.2 GM/DL 6.4-8.2 Normal (applies to non-numeric re sults) [facility] ([facility]) Laboratory test finding (navigational concept) Laboratory test r esult Normal (applies to non-numeric results) [facility] ([facility]) REV'D BY O ADJAPONG Spep Interpretation Laboratory test result Samantha l (applies to non-numeric results) [facility] ([facility]) NO M-SPIKE(S)NOTED. ID Date Data Source [id number] 05/02/2020 12:41:00 PM EST [facility] ([facility]) Name Value Range Interpretation Code Description Data Mary rce(s) Supporting Document(s) Laboratory test finding (navigational concept) Laboratory test r esult Normal (applies to non-numeric results) [facility] ([facility]) REV'D BY Efrem LEMOS Laboratory test finding (navigational concept) Laboratory test r esult Normal (applies to non-numeric results) [facility] ([facility]) NO MONOCLONAL BANDS NOTED. ID Date Data Source [id number] 05/02/2020 12:41:00 PM EST [facility] ([facility]) Name Value Range Interpretation Code Description Data Mary rce(s) Supporting Document(s) Iron (Fe) 106 ug/dL 50-170 Normal (applies to non-numeric resul ts) [facility] ([facility]) Percent Saturation 28.2 % 13.2-45.0 Normal (applies to non-numer ic results) [facility] ([facility]) Total Iron Binding Capacity 376 ug/dL 250-450 Norm al (applies to non-numeric results) [facility] ([facility]) ID Date Data Source [id number] 05/02/2020 12:41:00 PM EST [facility] ([facility]) Name Value Range Interpretation Code Description Data Mary rce(s) Supporting Document(s) Lactate dehydrogenase [Enzymatic activit y/volume] in Serum or Plasma by Lactate to pyruvate reaction 210 U/L 84-246 Normal (applies to non-numeric re sults) [facility] ([facility]) ID Date Data Source [id number] 05/02/2020 12:41:00 PM EST [facility] ([facility]) Name Value Range Interpretation Code Description Data Mary rce(s) Supporting Document(s) Glucose, Fasting 75 mg/dL 70-100 Normal (applies to non-numeric results) [facility] ([facility]) Blood Urea Nitrogen 14 mg/dL 7-18 Normal (applies to non-nume paula results) [facility] ([facility]) Creatinine For GFR 1.11 mg/dL 0.55-1.30 Normal (applies to non -numeric results) [facility] ([facility]) Glomerular Filtration Rate 50.6 Normal (applies to n on-numeric results) [facility] ([facility]) <content>Units are mL/min/1.73 m2</content>
<content></content>
<content>Chronic Kidney Disease Staging per NKF:</content>
<content></content>
<content>Stage I & II GFR >=60 Normal to Mildly Decreased</content>
<content>Stage III GFR 30-59 Moderately Decreased</content>
<content>Stage IV GFR 15-29 Severely Decreased</content>
<content>Stage V GFR <15 Very Little GFR Left</content>
<content>ESRD GFR <15 on DATABASE MANAGEMENT SYSTEM SPECIALIST</content>
<content></content> Sodium Level 142 meq/L 136-145 Normal (applies to non-numeric res ults) [facility] ([facility]) Potassium Serum 3.9 meq/L 3.5-5.1 Normal (applies to non-numeric results) [facility] ([facility]) Chloride Level 109 meq/L 98-107 Above high normal [facility] ([facility]) Carbon Dioxide Level 31 meq/L 21-32 Normal (applies to non-num caren results) [facility] ([facility]) Anion Gap 2 meq/L 8-16 Below low normal [facility] ( [facility]) Ast/Sgot 14 U/L 7-37 Normal (applies to non-numeric resul ts) [facility] ([facility]) Calcium Level 9.5 mg/dL 8.8-10.2 Normal (applies to non-numeric re sults) [facility] ([facility]) Alt/SGPT 29 U/L 12-78 Normal (applies to non-numeric resul ts) [facility] ([facility]) Alkaline Phosphatase 86 U/L 45-117 Normal (applies to non-num caren results) [facility] ([facility]) Bilirubin,Total 0.3 mg/dL 0.2-1.0 Normal (applies to non-numeric results) [facility] ([facility]) Albumin 3.7 GM/DL 3.2-5.2 Normal (applies to non-numeric resul ts) [facility] ([facility]) Total Protein 7.2 GM/DL 6.4-8.2 Normal (applies to non-numeric re sults) [facility] ([facility]) Albumin/Globulin Ratio 1.1 1.2-2.2 Below low normal [facility] ([facility]) ID Date Data Source [id number] 05/02/2020 12:41:00 PM EST [facility] ([facility]) Name Value Range Interpretation Code Description Data Mary rce(s) Supporting Document(s) Haptoglobin [Mass/volume] in Serum or Plasma 194 mg/dL 42- 346 Normal (applies to non-numeric results) [facility] ([facility]) Performed at: RN - [facility] [place] [phone] Exercise Teacher: Geovanna Stroud MD, Phone: [phone] ID Date Data Source [id number] 05/02/2020 12:41:00 PM EST [facility] ([facility]) Name Value Range Interpretation Code Description Data Mary rce(s) Supporting Document(s) Wero Result Calc Laboratory test result Normal (a pplies to non-numeric results) [facility]) ID Date Data Source [id number] 05/02/2020 12:41:00 PM EST [facility] ([facility]) Name Value Range Interpretation Code Description Data Mary rce(s) Supporting Document(s) Reticulocyte % 1.2 % 0.5-1.5 Normal (applies to non-numeric r esults) [facility] ([facility]) Reticulocyte # 46.5 10 17-77 Normal (applies to non-numeric r esults) [facility] ([facility]) Retic Hemoglobin Equivalent 35.5 pg 24-36 Norm al (applies to non-numeric results) [facility] ([facility]) ID Date Data Source [id number] 05/02/2020 12:41:00 PM EST [facility] ([facility]) Name Value Range Interpretation Code Description Data Mary rce(s) Supporting Document(s) White Blood Count 9.5 10 4.0-10.0 Normal (applies to non-numeri c results) [facility] ([facility]) Hemoglobin 12.3 g/dL 12.0-15.5 Normal (applies to non-numeric resul ts) [facility] ([facility]) Red Blood Count 3.95 10 4.00-5.40 Below low normal [facility] ([facility]) Hematocrit 39.3 % 36.0-47.0 Normal (applies to non-numeric resul ts) [facility] ([facility]) Mean Corpuscular Volume 99.5 fl 80.0-96.0 Above high normal [facility] ([facility]) Mean Corpuscular Hemoglobin 31.1 pg 27.0-33.0 Norm al (applies to non-numeric results) [facility] ([facility]) Mean Corpuscular HGB Conc 31.3 g/dL 32.0-36.5 Below low normal [facility] ([facility]) Red Cell Distribution Width 13.1 % 11.5-14.5 Norm al (applies to non-numeric results) [facility] ([facility]) Platelet Count, Automated 434 10 150-450 Normal (applies to non-numeric results) [facility] ([facility]) Neutrophils % 59.8 % 36.0-66.0 Normal (applies to non-numeric re sults) [facility] ([facility]) Lymph % 25.2 % 24.0-44.0 Normal (applies to non-numeric resul ts) [facility] ([facility]) [place] % 10.0 % 0.0-5.0 Above high normal [facility] ([facility]) Eos % 3.7 % 0.0-3.0 Above high normal [facility] ([facility]) Immature Granulocyte % 0.3 % 0-3.0 Normal (applies to non-n umeric results) [facility] ([facility]) Baso % 1.0 % 0.0-1.0 Normal (applies to non-numeric resul ts) [facility] ([facility]) Neutrophils # 5.7 10 1.5-8.5 Normal (applies to non-numeric re sults) [facility] ([facility]) Nucleated Red Blood Cell % 0.0 % 0-0 Normal (applies to n on-numeric results) [facility] ([facility]) Lymph # 2.4 10 1.5-5.0 Normal (applies to non-numeric resul ts) [facility] ([facility]) [place] # 1.0 10 0.0-0.8 Above high normal [facility] ([facility]) Baso # 0.1 10 0.0-0.2 Normal (applies to non-numeric resul ts) [facility] ([facility]) Eos # 0.4 10 0.0-0.5 Normal (applies to non-numeric resul ts) [facility] ([facility]) ID Date Data Source [id number] 04/02/2020 12:00:00 AM EST [facility] Temitope Contreras DO Patient Name: DAYAMI [id number] Date of : 1940te 1 [facility]: [facility] [id number] Fax: [phone] EXAM: HIP LEFT UNILATERAL (COMPLETE) [...] rce(s) Supporting Document(s) ID Date Data Source [id number] 02/27/2020 09:04:00 AM EDT [facility] ([facility]) Name Value Range Interpretation Code Description Data Mary rce(s) Supporting Document(s) Natriuretic peptide.B prohormone N-Terminal [Mass/volu me] in Serum or Plasma 140 pg/mL Normal (applies to non-numeric results) [facility] ([facility]) FAX TO [phone] FAX TO [phone] Magnesium [Mass/volume] in Serum or Plasma 2.9 mg/dL 1.8-2.4 Above high normal [facility] ([facility]) FAX TO [phone] FAX TO [phone] Thyrotropin [Units/volume] in Serum or Plasma 1.080 uIU/ML 0. 358-3.740 Normal (applies to non-numeric results) [facility] ([facility]) FAX TO [phone] FAX TO [phone] ID Date Data Source [id number] 02/27/2020 09:04:00 AM EDT [facility] ([facility]) Name Value Range Interpretation Code Description Data Mary rce(s) Supporting Document(s) Glucose, Fasting 86 mg/dL 70-100 Normal (applies to non-numeric results) [facility] ([facility]) Blood Urea Nitrogen 15 mg/dL 7-18 Normal (applies to non-nume paula results) [facility] ([facility]) Sodium Level 144 meq/L 136-145 Normal (applies to non-numeric res ults) [facility] ([facility]) Glomerular Filtration Rate 54.0 Normal (applies to n on-numeric results) [facility] ([facility]) <content>Units are mL/min/1.73 m2</content>
<content></content>
<content>Chronic Kidney Disease Staging per NKF:</content>
<content></content>
<content>Stage I & II GFR >=60 Normal to Mildly Decreased</content>
<content>Stage III GFR 30- 59 Moderately Decreased</content>
<content>Stage IV GFR 15-29 Severely Decreased</content>
<content>Stage V GFR <15 Very Little GFR Left</content>
<content>ESRD GFR <15 on DATABASE MANAGEMENT SYSTEM SPECIALIST</content>
<content></content> Creatinine For GFR 1.05 mg/dL 0.55-1.30 Normal (applies to non -numeric results) [facility] ([facility]) Chloride Level 109 meq/L 98-107 Above high normal [facility] ([facility]) Potassium Serum 4.6 meq/L 3.5-5.1 Normal (applies to non-numeric results) [facility] ([facility]) Carbon Dioxide Level 31 meq/L 21-32 Normal (applies to non-num caren results) [facility] ([facility]) Anion Gap 4 meq/L 8-16 Below low normal [facility] ( [facility]) Calcium Level 8.9 mg/dL 8.8-10.2 Normal (applies to non-numeric re sults) [facility] ([facility]) Alt/SGPT 24 U/L 12-78 Normal (applies to non-numeric resul ts) [facility] ([facility]) Ast/Sgot 15 U/L 7-37 Normal (applies to non-numeric resul ts) [facility] ([facility]) Alkaline Phosphatase 82 U/L 45-117 Normal (applies to non-num caren results) [facility] ([facility]) Total Protein 6.8 GM/DL 6.4-8.2 Normal (applies to non-numeric re sults) [facility] ([facility]) Bilirubin,Total 0.3 mg/dL 0.2-1.0 Normal (applies to non-numeric results) [facility] ([facility]) Albumin/Globulin Ratio 1.1 1.2-2.2 Below low normal [facility] ([facility]) Albumin 3.5 GM/DL 3.2-5.2 Normal (applies to non-numeric resul ts) [facility] ([facility]) ID Date Data Source [id number] 02/27/2020 09:04:00 AM EDT [facility] ([facility]) Name Value Range Interpretation Code Description Data Mary rce(s) Supporting Document(s) Red Blood Count 3.48 10 4.00-5.40 Below low normal [facility] ([facility]) White Blood Count 8.8 10 4.0-10.0 Normal (applies to non-numeri c results) [facility] ([facility]) Mean Corpuscular Volume 100.3 fl 80.0-96.0 Above high normal [facility] ([facility]) Hematocrit 34.9 % 36.0-47.0 Below low normal [facility] ( [facility]) Hemoglobin 10.6 g/dL 12.0-15.5 Below low normal [facility] ( [facility]) Mean Corpuscular Hemoglobin 30.5 pg 27.0-33.0 Norm al (applies to non-numeric results) [facility] ([facility]) Mean Corpuscular HGB Conc 30.4 g/dL 32.0-36.5 Below low normal [facility] ([facility]) Red Cell Distribution Width 13.5 % 11.5-14.5 Norm al (applies to non-numeric results) [facility] ([facility]) Platelet Count, Automated 357 10 150-450 Normal (applies to non-numeric results) [facility] ([facility]) Lymph % 28.9 % 24.0-44.0 Normal (applies to non-numeric resul ts) [facility] ([facility]) Neutrophils % 56.1 % 36.0-66.0 Normal (applies to non-numeric re sults) [facility] ([facility]) Baso % 1.1 % 0.0-1.0 Above high normal [facility] ([facility]) Eos % 2.8 % 0.0-3.0 Normal (applies to non-numeric resul ts) [facility] ([facility]) [place] % 10.9 % 0.0-5.0 Above high normal [facility] ([facility]) Immature Granulocyte % 0.2 % 0-3.0 Normal (applies to non-n umeric results) [facility] ([facility]) Nucleated Red Blood Cell % 0.0 % 0-0 Normal (applies to n on-numeric results) [facility] ([facility]) Neutrophils # 4.9 10 1.5-8.5 Normal (applies to non-numeric re sults) [facility] ([facility]) [place] # 1.0 10 0.0-0.8 Above high normal [facility] ([facility]) Lymph # 2.5 10 1.5-5.0 Normal (applies to non-numeric resul ts) [facility] ([facility]) Eos # 0.3 10 0.0-0.5 Normal (applies to non-numeric resul ts) [facility] ([facility]) Baso # 0.1 10 0.0-0.2 Normal (applies to non-numeric resul ts) [facility] ([facility]) Procedure Social History Code Duration Value Status Description Data Source(s ) Smoking 02/24/2021 12:00:00 AM EDT Patient has never smoked co mpleted Patient has never smoked [facility]) Smoking 01/23/2021 12:00:00 AM EDT Never Smoker completed Never Joe chairez eCW1 ([facility]) Smoking 01/23/2021 12:00:00 AM EDT Never Smoker completed Never Joe Louis1 ([facility]) Vital Signs ID Date Data Source UNK Name Value Range Interpretation Code Description Data Source(s) [place] body weight 100 [lb_av] 100 [lb_av] [facility] T ([facility]) Oxygen saturation in Arterial blood by Pulse oximetry 96 % 96 % [facility] ([facility]) Systolic blood pressure 126 mm[Hg] 126 mm[Hg] M [facility]ENT ([facility]) Diastolic blood pressure 76 mm[Hg] 76 mm[Hg] [facility] ([facility]) Body height 59.6 [in_i] 59.6 [in_i] [facility]) 4'11.60" Body weight 154.00 [lb_av] 154.00 [lb_av] [facility] T ([facility]) Body mass index (BMI) [Ratio] 30.5 kg/m2 30.5 k g/m2 [facility] ([facility]) Heart rate 67 /min 67 /min [facility] ([facility]) Respiratory rate 20 /min 20 /min [facility] ( [facility]) Body temperature 98.5 [degF] 98.5 [degF] [facility] ([facility]) [place] body weight 110 [lb_av] 110 [lb_av] [facility] T ([facility]) Body weight 70.903 kg 70.903 kg [facility] ([facility]) Body temperature 98.3 [degF] 98.3 [degF] [facility] ([facility]) Body height 62 [in_i] 62 [in_i] [facility] ([facility]) 5'2" Body weight 156.31 [lb_av] 156.31 [lb_av] [facility] T ([facility]) Body mass index (BMI) [Ratio] 28.6 kg/m2 28.6 k g/m2 [facility] ([facility]) Body surface area Derived from formula 1.72 m2 1.72 m2 [facility] ([facility]) Systolic blood pressure 152 mm[Hg] 152 mm[Hg] [facility] Diastolic blood pressure 74 mm[Hg] 74 mm[Hg] [facility] ([facility]) Diastolic blood pressure 70 mm[Hg] 70 mm[Hg] [facility] ([facility]) Body height 59.6 [in_i] 59.6 [in_i] [facility] ([facility]) 4'11.60" Body weight 156.38 [lb_av] 156.38 [lb_av] [facility] T ([facility]) Systolic blood pressure 120 mm[Hg] 120 mm[Hg] M [facility] ([facility]) Body mass index (BMI) [Ratio] 30.9 kg/m2 30.9 k g/m2 [facility] ([facility]) Heart rate 99 /min 99 /min [facility] ([facility]) Respiratory rate 12 /min 12 /min [facility] ( [facility]) Body temperature 98.0 [degF] 98.0 [degF] [facility] ([facility]) Oxygen saturation in Arterial blood by Pulse oximetry 99 % 99 % [facility] ([facility]) [place] body weight 100 [lb_av] 100 [lb_av] [facility] T ([facility]) Body weight 156.25 [lb_av] 156.25 [lb_av] [facility] T ([facility]) Body mass index (BMI) [Ratio] 30.9 kg/m2 30.9 k g/m2 [facility] ([facility]) Heart rate 99 /min 99 /min [facility] ([facility]) Respiratory rate 18 /min 18 /min [facility] ( [facility]) Body temperature 98.6 [degF] 98.6 [degF] [facility] ([facility]) Oxygen saturation in Arterial blood by Pulse oximetry 96 % 96 % [facility] ([facility]) Systolic blood pressure 128 mm[Hg] 128 mm[Hg] M [facility] ([facility]) Diastolic blood pressure 72 mm[Hg] 72 mm[Hg] [facility] ([facility]) Body height 59.6 [in_i] 59.6 [in_i] [facility] ([facility]) 4'11.60" [place] body weight 100 [lb_av] 100 [lb_av] [facility] T ([facility]) Body weight 155.0 [lb_av] 155.0 [lb_av] eCW1 ([facility]) Body height 61.5 [in_i] 61.5 [in_i] eCW1 ([facility]) Body mass index (BMI) [Ratio] 28.81 kg/m2 28.81 kg/m2 eCW1 ([facility]) Oxygen saturation in Arterial blood by Pulse oximetry 99 % 99 % eCW1 ([facility]) Heart rate 76 /min 76 /min eCW1 ([facility]) Body temperature 99.1 [degF] 99.1 [degF] [facility] ([facility]) Systolic blood pressure 132 mm[Hg] 132 mm[Hg] M [facility]ENT ([facility]) Diastolic blood pressure 68 mm[Hg] 68 mm[Hg] [facility] ([facility]) Body height 59.6 [in_i] 59.6 [in_i] [facility] ([facility]) 4" Body weight 154.12 [lb_av] 154.12 [lb_av] [facility] T ([facility]) Body mass index (BMI) [Ratio] 30.5 kg/m2 30.5 k g/m2 [facility] ([facility]) Heart rate 78 /min 78 /min [facility] ([facility]) Respiratory rate 18 /min 18 /min [facility] ( [facility]) Oxygen saturation in Arterial blood by Pulse oximetry 97 % 97 % [facility] ([facility]) [place] body weight 100 [lb_av] 100 [lb_av] [facility] T ([facility]) Oxygen saturation in Arterial blood by Pulse oximetry 97 % 97 % [facility] ([facility]) Body weight 150.38 [lb_av] 150.38 [lb_av] [facility] T ([facility]) Body mass index (BMI) [Ratio] 29.8 kg/m2 29.8 k g/m2 [facility] ([facility]) [place] body weight 100 [lb_av] 100 [lb_av] [facility] T ([facility]) Systolic blood pressure 148 mm[Hg] 148 mm[Hg] M [facility] ([facility]) Diastolic blood pressure 80 mm[Hg] 80 mm[Hg] [facility] ([facility]) Body height 59.6 [in_i] 59.6 [in_i] [facility] ([facility]) 4'60" Heart rate 81 /min 81 /min [facility] ([facility]) Body temperature 98.5 [degF] 98.5 [degF] [facility] ([facility]) Systolic blood pressure 125 mm[Hg] 125 mm[Hg] M EDENT ([facility], [facility]) Diastolic blood pressure 72 mm[Hg] 72 mm[Hg] [facility] ([facility], [facility]) Heart rate 84 /min 84 /min [facility] ([facility], [facility]) Respiratory rate 16 /min 16 /min [facility] ( [facility], [facility]) Oxygen saturation in Arterial blood by Pulse oximetry 99 % 99 % [facility] ([facility], [facility]) Body temperature 98.4 [degF] 98.4 [degF] [facility] ([facility], [facility]) Body weight 150.00 [lb_av] 150.00 [lb_av] [facility] T ([facility], [facility]) Body height 61 [in_i] 61 [in_i] [facility] ([facility], [facility]) 5'1" Body mass index (BMI) [Ratio] 28.3 kg/m2 28.3 k g/m2 [facility] ([facility], [facility]) [place] body weight 100 [lb_av] 100 [lb_av] [facility] T ([facility]) Systolic blood pressure 132 mm[Hg] 132 mm[Hg] M [facility]ENT ([facility]) Diastolic blood pressure 74 mm[Hg] 74 mm[Hg] [facility] ([facility]) Body height 59.6 [in_i] 59.6 [in_i] [facility] ([facility]) 4'11.60" Body weight 150.50 [lb_av] 150.50 [lb_av] [facility] T ([facility]) Body mass index (BMI) [Ratio] 29.8 kg/m2 29.8 k g/m2 [facility] ([facility]) Heart rate 90 /min 90 /min [facility] ([facility]) Respiratory rate 18 /min 18 /min [facility] ( [facility]) Body temperature 98.4 [degF] 98.4 [degF] [facility] ([facility]) Oxygen saturation in Arterial blood by Pulse oximetry 98 % 98 % [facility] ([facility]) Heart rate 84 /min 84 /min [facility] ([facility]) Body height 59.6 [in_i] 59.6 [in_i] [facility] ([facility]) " Systolic blood pressure 122 mm[Hg] 122 mm[Hg] M [facility]ENT ([facility]) Diastolic blood pressure 82 mm[Hg] 82 mm[Hg] [facility] ([facility]) Body mass index (BMI) [Ratio] 28.9 kg/m2 28.9 k g/m2 [facility] ([facility]) Respiratory rate 20 /min 20 /min [facility] ( [facility]) Body temperature 97.3 [degF] 97.3 [degF] [facility] ([facility]) Oxygen saturation in Arterial blood by Pulse oximetry 99 % 99 % [facility] ([facility]) Body weight 146.00 [lb_av] 146.00 [lb_av] [facility] T ([facility]) [place] body weight 100 [lb_av] 100 [lb_av] [facility] T ([facility]) Systolic blood pressure 140 mm[Hg] 140 mm[Hg] M [facility]ENT ([facility]) Diastolic blood pressure 74 mm[Hg] 74 mm[Hg] [facility] ([facility]) [place] body weight 100 [lb_av] 100 [lb_av] [facility] T ([facility]) Body height 59.6 [in_i] 59.6 [in_i] [facility] ([facility]) " Body weight 150.38 [lb_av] 150.38 [lb_av] [facility] T ([facility]) Body mass index (BMI) [Ratio] 29.8 kg/m2 29.8 k g/m2 [facility] ([facility]) Heart rate 103 /min 103 /min [facility] ([facility]) Respiratory rate 14 /min 14 /min [facility] ( [facility]) Body temperature 98.3 [degF] 98.3 [degF] [facility] ([facility]) Oxygen saturation in Arterial blood by Pulse oximetry 97 % 97 % [facility] ([facility]) Body mass index (BMI) [Ratio] 30.3 kg/m2 30.3 k g/m2 [facility] ([facility]) Heart rate 96 /min 96 /min [facility] ([facility]) Oxygen saturation in Arterial blood by Pulse oximetry 99 % 99 % [facility] ([facility]) Systolic blood pressure 144 mm[Hg] 144 mm[Hg] M [facility] ([facility]) Body height 59.6 [in_i] 59.6 [in_i] [facility] ([facility]) 4'11.60" Body weight 153.00 [lb_av] 153.00 [lb_av] [facility] T ([facility]) Respiratory rate 18 /min 18 /min [facility] ( [facility]) Body temperature 98.3 [degF] 98.3 [degF] [facility] ([facility]) [place] body weight 100 [lb_av] 100 [lb_av] [facility] T ([facility]) Diastolic blood pressure 68 mm[Hg] 68 mm[Hg] [facility] ([facility]) Systolic blood pressure 124 mm[Hg] 124 mm[Hg] M [facility] ([facility]) Diastolic blood pressure 72 mm[Hg] 72 mm[Hg] [facility] ([facility]) Body height 59.6 [in_i] 59.6 [in_i] [facility] ([facility]) 4'.60" Heart rate 88 /min 88 /min [facility] ([facility]) Body temperature 98.3 [degF] 98.3 [degF] [facility] ([facility]) Respiratory rate 18 /min 18 /min [facility] ( [facility]) Oxygen saturation in Arterial blood by Pulse oximetry 97 % 97 % [facility] ([facility]) [place] body weight 100 [lb_av] 100 [lb_av] [facility] T ([facility]) [place] body weight 100 [lb_av] 100 [lb_av] [facility] T ([facility]) Diastolic blood pressure 80 mm[Hg] 80 mm[Hg] [facility] ([facility]) Systolic blood pressure 128 mm[Hg] 128 mm[Hg] M [facility] ([facility]) Body height 59.6 [in_i] 59.6 [in_i] [facility]) 4'11.60" Body weight 150.50 [lb_av] 150.50 [lb_av] [facility] T ([facility]) Body mass index (BMI) [Ratio] 29.8 kg/m2 29.8 k g/m2 [facility] ([facility]) Heart rate 89 /min 89 /min [facility]) Respiratory rate 16 /min 16 /min [facility] ( [facility]) Body temperature 97.6 [degF] 97.6 [degF] [facility] ([facility]) Oxygen saturation in Arterial blood by Pulse oximetry 96 % 96 % [facility] ([facility]) Patient Treatment Plan of Care Planned Activity Planned Date Details Description Data Source (s) Amphetamine aspartate 5 MG / Amphetamine Sulfate 5 MG / Dextroamphetamine saccharate 5 MG / Dextroamphetamine Sulfate 5 MG Oral Tablet [Adderall] 10/24/2020 12:00:00 AM EDT [facility]CW1 ([facility] [facility]) Amphetamine aspartate 5 MG / Amphetamine Sulfate 5 MG / Dextroamphetamine saccharate 5 MG / Dextroamphetamine Sulfate 5 MG Oral Tablet [Adderall] 07/23/2020 12:00:00 AM EST [id number] ([facility])
== END 2021-03-31 21:54 | disposition left against medical advice (07) ==
LOC: M ED 14:22
DX: Z53.21 Procedure and treatment not carried out due to patient leaving prior to being seen by health care provider (principal)

== ENCOUNTER 2021-04-02 06:45 | Inpatient (IN) | payer MEDICARE, OTHER ==
[~2021-04-02] VITALS: Ht 154.9 cm; Wt 68.0 kg
--- OUTSIDE RECORDS SUMMARY | 2021-04-02 06:53 | CCD ---
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 Name Role Phone JUAN MANUEL-LAKEISHA, TEMITOPE DO Unavailable Unavailable JUAN [...] MANUEL-LAKEISHA, TEMITOPE DO Unavailable Unavailable JUAN MANUEL-LAKEISHA, TEMITOEP DO Unavailable Unavailable JUAN MANUEL-LAKEISHA, TEMITOPE DO [...] JUAN MANUEL-LAKEISHA, TEMITOPE DO Unavailable Unavailable JUAN MANUEL-LAKIESHA, TEMITOPE DO Unavailable Unavailable JUAN MANUEL-LAKEISHA, TEMITOPE [...] Unavailable JUAN MANUEL-LAKEISHA, TEMITOPE DO Unavailable Unavailable LETTIERE, A SHANTE PA Unavailable [...] Unavailable Unavailable Ravi, Kirk PA Unavailable Unavailable Raiv, Kirk PA Unavailable Unavailable Ravi, Kirk PA [...] Unavailable Unavailable Ravi, Kirk PA Unavailable Unavailable Raiv, Kirk PA Unavailable Unavailable Ravi, Kirk PA [...] Unavailable JUAN MANUEL-LAKEISHA, TEMITOPE DO Unavailable Unavailable TURRIN, MARY Unavailable Unavailable TURRIN, MARY Unavailable Unavailable TURRIN, MARY Unavailable Unavailable TURRIN, MARY Unavailable Unavailable O'madelin, A Shante PA Unavailable [...] L Ameena RPA Unavailable Unavailable DESJARLAIS, RICKEY DATA COMMUNICATIONS TECHNICIAN Unavailable Unavailable DESJARLAIS, RICKEY DATA COMMUNICATIONS TECHNICIAN Unavailable Unavailable DESJARLAIS, RICKEY DATA COMMUNICATIONS TECHNICIAN Unavailable Unavailable DESJARLAIS, RICKEY DATA COMMUNICATIONS TECHNICIAN Unavailable Unavailable DESJARLAIS, RICKEY DATA COMMUNICATIONS TECHNICIAN Unavailable Unavailable DESJARLAIS, RICKEY DATA COMMUNICATIONS TECHNICIAN Unavailable Unavailable DESJARLAIS, RICKEY DATA COMMUNICATIONS TECHNICIAN Unavailable Unavailable DESJARLAIS, RICKEY DATA COMMUNICATIONS TECHNICIAN Unavailable Unavailable DESJARLAIS, RICKEY DATA COMMUNICATIONS TECHNICIAN Unavailable Unavailable DESJARLAIS, RICKEY DATA COMMUNICATIONS TECHNICIAN Unavailable Unavailable PONCHO, BREA DEVON PA-C Unavailable Unavailable PONCHO, BREA DEVON PA-C Unavailable Unavailable PONCHO, BREA DEVON PA-C Unavailable Unavailable PONCHO, BREA DEVON PA-C Unavailable Unavailable PONCHO, BREA DEVON PA-C Unavailable Unavailable PONCHO, BREA DEVON PA-C Unavailable Unavailable PONCHO, BREA DEVON PA-C Unavailable Unavailable PONCHO, BREA DEVON PA-C Unavailable Unavailable PONCHO, BREA DEVON PA-C Unavailable Unavailable PONCHO, BREA DEVON PA-C Unavailable Unavailable Re-disclosure Warning The records [...] is protected by Article 27-F of the [facility] Public Health law. If you continue you may have access to information: Regarding HIV / AIDS; Provided by facilities licensed or operated by the [facility] Office of Mental Health; or Provided by the [facility] Office for People With Developmental Disabilities. If such information is present, then the following [facility] mandated warning applies: This information has [...] law may result in a fine or halfway sentence or both. A general authorization for the release of medical or other information is NOT sufficient authorization for further disc losure. Allergies and Adverse Reactions Type Description Substance Reaction Status Data Source(s ) Propensity to adverse reactions SULFA (sulfonamide) SULFA (sulfonamid e) RASH [facility] Family History Family Member Name Family Member Gender Family Member Status Date o f Status Description Data Source(s) Unknown Male Problem MEDENT ([facility]) Unknown Male Problem MEDENT ([facility] Unknown Unknown Problem MEDENT ([facility] Unknown Male Problem MEDENT ([facility] () Encounters Encounter Providers Location Date Indications Data Source(s ) Emergency Attender: MARY HOLTConsultant: TEMITOPE SANCHEZ DO 03/31/2021 10:47:19 PM Health system Patient admitted. Outpatient Attender: RICKEY VARELA NP 03/26/2021 09: 34:00 AM [facility] Outpatient Attender: Shante CHAVIRA [facility] 03/06/2021 01:40:00 PM EDT MEDENT ([facility]) Outpatient Attender: RICKEY VARELA NP 03/06/2021 10: 01:00 AM [facility] Outpatient Attender: Ameena Monsalve/Yasmin/Mitchel/Andrea alexis 02/27/2021 10:00:00 AM EDT MEDENT ([facility] Outpatient Attender: Kirk CHAVIRA [facility] 02/24/2021 01:00:00 PM EDT MEDENT ([facility]) Outpatient Attender: RICKEY VARELA NP 02/19/2021 01: 40:00 PM [facility] Outpatient Attender: Kirk CHAVIRA [facility] 02/17/2021 10:20:00 AM EDT MEDENT ([facility]) (TEL) .[facility] 01/23/2021 12:00:00 AM EDT eCW1 ([facility]) Outpatient .[facility] 01/23/2021 12:00:00 AM EDT eCW1 ([facility]) Outpatient Attender: RICKEY VARELA NP 01/16/2021 09: 51:00 AM [facility] Outpatient [facility] 01/15/2021 12:00:00 AM EDT eCW1 ([facility]) Outpatient Attender: Kirk CHAVIRA [facility] 01/03/2021 10:00:00 AM EDT MEDENT ([facility]) Outpatient Attender: RICKEY VARELA NP 12/19/2020 11: 52:00 AM [facility] Outpatient Attender: RICKEY VARELA NP 12/05/2020 03: 20:00 PM [facility] Outpatient Attender: Kirk CHAVIRA [facility] 11/19/2020 08:00:00 AM EDT MEDENT ([facility]) Outpatient Attender: SHANTE lopez 11/15/2020 04:05:00 PM EDT MEDENT ([facility]) Outpatient Attender: RICKEY VARELA NP 11/12/2020 10: 56:00 AM [facility] Outpatient Attender: RICKEY VARELA NP 10/02/2020 10: 50:00 AM [facility] Office Visit Attender: Kirk CHAVIRA [facility] 09/30/2020 02:20:00 PM EDT MEDENT ([facility]) Outpatient Attender: RICKEY VARELA NP 09/05/2020 09: 49:00 AM [facility] Outpatient Attender: RICKEY VARELA NP 08/06/2020 10: 46:00 AM [facility] Outpatient Attender: RICKEY VARELA NP 07/30/2020 09: 45:00 AM [facility] Outpatient [facility] 07/23/2020 12:00:00 AM EST eCW1 ([facility]) Outpatient Attender: RICKEY VARELA NP 07/16/2020 10: 27:00 AM [facility] Outpatient Attender: Kirk CHAVIRA [facility] 07/15/2020 09:00:00 AM EST MEDENT ([facility]) Outpatient Attender: Kirk CHAVIRA [facility] 07/03/2020 08:20:00 AM EST MEDENT ([facility]) Outpatient Attender: RICKEY VARELA NP 06/28/2020 10: 23:00 AM [facility] [address] [place] [address] 06/28/2020 12:00:00 AM EST eCW1 ([facility]) Outpatient Attender: BARBER MATTHEWS MD Main office - [facility] 06/18/2020 01:30:00 PM EST MEDENT ([facility] gutierrez) (TEL) .[facility] 06/11/2020 12:00:00 AM EST eCW1 ([facility]) Outpatient Attender: DEVON ISAAC PA-C 06/10/2020 10:34:00 AM [facility] Outpatient Attender: RICKEY VARELA NP 05/31/2020 08: 35:00 AM [facility] Outpatient Attender: Kirk CHAVIRA [facility] 05/14/2020 07:40:00 AM EST MEDENT ([facility]) Outpatient Attender: RICKEY VARELA NP 05/10/2020 08: 31:00 AM [facility] Outpatient Attender: Kirk CHAVIRA [facility] 05/07/2020 02:20:00 PM EST MEDENT ([facility]) Outpatient Attender: RICKEY VARELA NP 04/12/2020 11: 11:00 AM [facility] Outpatient Attender: ALEX NICHOLSON [facility] 03/24 10:00:00 AM EST MEDENT ([facility] Outpatient Attender: TEMITOPE DOLAN DO [facility] 04/02/2020 07:20:00 AM EST MEDENT ([facility]) Outpatient Attender: RICKEY VARELA NP 03/22/2020 10: 34:00 AM [facility] (TEL) .[facility] 02/23/2020 12:00:00 AM ED eCW1 ([facility]) Outpatient Attender: RICKEY DESKAYLENERLAIS DATA COMMUNICATIONS TECHNICIAN 02/16/2020 10: 40:00 AM [facility] Outpatient Attender: RICKEY DESJARLAIS DATA COMMUNICATIONS TECHNICIAN 02/02/2020 10: 40:00 AM [facility] Outpatient Attender: RICKEY DESJARLAIS DATA COMMUNICATIONS TECHNICIAN 01/26/2020 10: 06:00 AM [facility] Outpatient Attender: RICKEY DESJARLAIS DATA COMMUNICATIONS TECHNICIAN 01/16/2020 05: 00:00 PM [facility] Outpatient Attender: RICKEY DESJARLAIS DATA COMMUNICATIONS TECHNICIAN 01/04/2020 09: 01:00 AM [facility] Outpatient Attender: RICKEY DESJARLAIS DATA COMMUNICATIONS TECHNICIAN 12/20/2019 12: 03:00 PM [facility] Outpatient Attender: DEVON ISAAC PA-C 12/19/2019 11:47:00 AM [facility] Outpatient Attender: RICKEY DESJARLAIS DATA COMMUNICATIONS TECHNICIAN 12/07/2019 10: 47:00 AM [facility] Outpatient Attender: RICKEY DESJARLAIS DATA COMMUNICATIONS TECHNICIAN 11/29/2019 10: 40:00 AM [facility] Outpatient Attender: RICKEY DESJARLAIS DATA COMMUNICATIONS TECHNICIAN 11/14/2019 11: 34:00 AM [facility] Outpatient Attender: RICKEY DESJARLAIS DATA COMMUNICATIONS TECHNICIAN 11/07/2019 10: 40:00 AM [facility] Outpatient Attender: RICKEY DESJARLAIS DATA COMMUNICATIONS TECHNICIAN 10/25/2019 10: 25:00 AM [facility] Outpatient Attender: RICKEY DESJARLAIS DATA COMMUNICATIONS TECHNICIAN 09/26/2019 04: 20:00 PM [facility] Outpatient Attender: RICKEY DESJARLAIS DATA COMMUNICATIONS TECHNICIAN 09/19/2019 04: 58:00 PM [facility] Immunizations Vaccine Date Status Description Data Source(s) COVID-19 VACCINE Moderna 07/26/2020 12:00:00 AM EST completed [facility] Vaccine Series Complete: YESThis Data wa s Submitted to [facility] Via [employer]. COVID-19 VACCINE, MRNA-1273, LNP-S (MODERNA)/PF 07/26/2020 1 2:00:00 AM EST completed [facility] COVID-19 VACCINE Moderna 06/28/2020 12:00:00 AM EST completed [facility] Vaccine Series Complete: NOThis Data was Submitted to [facility] Via [employer]. COVID-19 VACCINE, MRNA-1273, LNP-S (MODERNA)/PF 06/28/2020 1 2:00:00 AM EST completed [facility] VARICELLA-ZOSTER VIRUS GLYCOPROTEIN E,REC/AS01B ADJUVA NT/PF 05/05/2020 12:00:00 AM EST completed [facility] INFLUENZA VIRUS VACCINE QUADRIVAL SPLIT 2019-(65 YR UP)/PF 02/12/2020 12:00:00 AM EDT completed [facility] Medications Medication Brand Name Start Date Product Form Dose Route Admi nistrative Instructions Pharmacy Instructions Status Indications Reaction Description Data Source(s) Cephalexin 500 MG Oral Tablet Cephalexin 03/30/2021 12:00:00 AM EDT ORAL active MEDENT ([facility]) pantoprazole 40 MG Delayed Release Oral [...] WITH MEALS AND AT BEDTIME SOLD: 02/08/2021 [facility] 20 mg 10/31/2020 12:00:00 AM EDT tablet 30 TAKE ONE TABLET BY MOUTH EVERY DAY WITH FOOD TAKE ONE TABLET BY MOUTH EVERY DAY WITH FOOD SOLD: 10/31/2020 [facility] Amphetamine aspartate 5 MG / Amphetamine Sulfate 5 MG / Dextroamphetamine saccharate 5 MG / Dextroamphetamine Sulfate 5 MG Oral Tablet [Adderall] Adderall 20 MG Adderall 20 MG 10/24/2020 12:00:00 AM EDT 1.0 {tablet} active Adderall 20 MG eCW1 ([facility]) Amphetamine aspartate 2.5 MG / Amphetami ne Sulfate 2.5 MG / Dextroamphetamine saccharate 2.5 MG / Dextroamphetamine Sulfate 2.5 MG Oral Tablet [Adderall] Adderall 10 MG Adderall 10 MG 10/24/2020 12:00:00 AM EDT 1.0 {tablet} active Adderall 10 MG eCW1 ([facility]) 0.005 % 09/11/2020 12:00:00 AM [...] MAXIMUM DAILY DOSE = 2 SOLD: 07/29/2020 [facility] Covid-19 vaccine, Unspecified 07/26/2020 12:00:00 AM EST completed MEDENT ([facility]) Medication administered onsite Amphetamine aspartate 5 MG / Amphetamine Sulfate 5 MG / Dextroamphetamine saccharate 5 MG / Dextroamphetamine Sulfate 5 MG Oral Tablet [Adderall] Adderall 20 MG Adderall 20 MG 07/23/2020 12:00:00 AM EST 1.0 {tablet} active Adderall 20 MG eCW1 ([facility]) Walker Wheels/Fixed With 5 Adjustment Holes/3" 07/18/2020 12:00:00 AM EST active MEDENT ([facility]) Calcium Carbonate 298 MG / Magnesium Chl oride 596 MG Delayed Release Oral Tablet [Slow-Mag Reformulated Jun 2011] Slow-Mag 07/03/2020 12:00:00 AM EST ORAL completed MEDENT ([facility]) Covid-19 vaccine, Unspecified 06/28/2020 12:00:00 AM EST completed MEDENT ([facility]) Medication administered onsite Ergocalciferol 48585 UNT Oral Capsule Ergocalciferol 05/14/2020 12:00:00 AM EST active MEDENT ( [facility]) Shingrix Shingrix 02/26/2020 12:00:00 AM EDT SUBCUTANEOUS completed MEDENT ([facility]) 5 mg/gram (0.5 %) 01/09/2020 12:00:00 [...] to perez Policy Perez Plan Information MEDICARE [id number] SP [id number] MEDICARE [id number] SP [id number] A MEDICARE A [id number] Self [id number] [place] [id number] S [id number] MEDICARE A [id number] Self [id number] [id number] MEDICARE [id number] SP [id number] MEDICARE [id number] SP [id number] A Medicare Natl Gov't Servi Medicare Primary [id number] Self [id number] [place] MED[place]ARE [place]ISION [id number] S [id number] Medicare Natl Gov't Servi Medicare Primary [id number] Self [id number] MEDICARE [id number] SP [id number] A Medicare Natl Gov't Servi Medicare Primary [id number] Self [id number] [employer] [id number] SP [id number] [employer]OM[employer] U [id number] Self [id number] [employer]OM[facility] [id number] SP [id number] [facility] U [id number] Self [id number] UMR [facility] CARE [id number] SP [id number] UMR U [id number] Self [id number] UMR [facility] CARE [id number] SP [id number] UMR U [id number] Self [id number] Umr Commercial [id number] Self [id number] [place] [id number] Self [id number] Umr Medigap Part B [id number] Self [id number] Medicare Medicare Primary [id number] Self [id number] Medicare [place] Primary [id number] Self [id number] Medicare Medicare Primary [id number] Self [id number] Medicare Medicare Primary [id number] Self [id number] Medicare [place] Medicare Primary [id number] Self [id number] ANSI-Medicare Part B [id number] ANSI-Commercial [id number] ANSI-Medicare Part B [id number] ANSI-Commercial [id number] [place] MEDICARE DIVISION [id number] S [id number] [place]IC[place] [id number] S [id number] [facility] [id number] S [id number] ANSI-Medicare Part B [id number] ANSI-Commercial [id number] ANSI-Commercial [id number] ANSI-Medicare Part B [id number] ANSI-Medicare Part B [id number] ANSI-Commercial [id number] ANSI-Medicare Part B [id number] ANSI-Commercial [id number] Medicare Medicare Primary [id number] Self [id number] ANSI-Commercial [id number] ANSI-Medicare Part B [id number] Medicare Medicare Primary [id number] Self [id number] ANSI-Commercial [id number] ANSI-Medicare Part B [id number] [facility]/[employer] Medigap Part B [id number] Self [id number] MEDICARE C [id number] S [id number] A MEDICARE [id number] SP [id number] A [employer] [id number] SP [id number] [employer] PPO O [id number] S [id number] [facility] Medigap Part B [id number] Self [id number] [employer] Medigap Part B [id number] Self [id number] Medicare [place] Medicare Primary [id number] Self [id number] [facility] Medigap Part B [id number] Self [id number] [employer] [id number] SP [id number] [employer] Commercial [id number] Self Medicare [place] Medicare Primary [id number] Self [facility] [id number] 18 [id number] [facility] [id number] [facility] [id number] 18 [id number] MEDICARE PART A-CLINIC [id number] 18 [id number] A UMR -O/P [id number] 18 [id number] MEDICARE PART A -O/P [id number] 18 [id number] MEDICARE [id number] SP [id number] UMR [facility] [id number] SP [id number] UMR [id number] S [id number] [place]ICARE [place] [id number] S [id number] [place] MEDICARE DIVISION [id number] S [id number] UMR [id number] S [id number] [place] MEDICARE DIVISION [id number] S [id number] MEDICARE [place] [id number] S [id number] UMR [id number] S [id number] UPSTATE MEDICARE DIVISION UNAVAILABLE S UNAVAILABLE [place]STATE MEDICARE DIVISION [id number] S [id number] UPSTATE MEDICARE DIVISION [id number] S [id number] MEDICARE C [id number] S [id number] UMR O [id number] S [id number] [place] MEDICARE DIVISION [id number] S [id number] MEDICARE - [place] [id number] S [id number] UMR [id number] S [id number] Medicare Medicare Primary [id number] Self [id number] Problems, Conditions, and Diagnoses Code Display Name Description Problem Type Effective Dates Data Source(s) G47.9 Sleep disorder, unspecified SLEEP DISORDER, UNSPECIFIE D Diagnosis 01/16/2021 09:51:00 AM [facility] F31.9 Bipolar disorder, unspecified BIPOLAR DISORDER, UNSPEC IFIED Diagnosis 01/16/2021 09:51:00 AM [facility] F43.23 Adjustment disorder with mixed anxiety a nd depressed mood ADJUSTMENT DISORDER WITH MIXED ANXIETY AND DEPRESS Diagnosis 12/19/2020 11:52:00 AM [facility] R25.1 Tremor, unspecified TREMOR, UNSPECIFIED Diagnosis 0 07/16/2020 10:27:00 AM [facility] G25.2 Other specified forms of tremor OTHER SPECIFIED FORMS OF TREMOR Diagnosis 05/31/2020 08:35:00 AM [facility] E55.9 Vitamin D deficiency Vitamin D deficiency, unspecified Problem 01/23/2021 12:00:00 AM EDT eCW1 ([facility]) F43.23 [id number] Adjustment disorder with mixed a nxiety and depressed mood Problem 11/12/2020 12:00:00 AM EDT eCW1 ([facility]) G25.2 [id number] Coarse tremors Problem 07/01/2020 12:00:00 A M EST eCW1 ([facility]) Surgeries/Procedures Procedure Description Date Indications Data Source(s) OFFICE OUTPATIENT VISIT 15 MINUTES 03/06/2021 12:00:00 AM EDT MEDENT ([facility]) OFFICE OUTPATIENT NEW 45 MINUTES 02/27/2021 12:00:00 A M EDT MEDENT ([facility] ) OFFICE OUTPATIENT VISIT 15 MINUTES 02/24/2021 12:00:00 AM EDT MEDENT ([facility]) Trans Care SRV Aft DC W/I 14D, Comm W/I 2 Dys Med Decs 02/17/2021 12:00:00 AM EDT MEDENT ([facility]) OFFICE OUTPATIENT VISIT 25 MINUTES 01/03/2021 12:00:00 AM EDT MEDENT ([facility]) OFFICE OUTPATIENT VISIT 25 MINUTES 11/19/2020 12:00:00 AM EDT MEDENT ([facility]) OFFICE OUTPATIENT VISIT 15 MINUTES 11/15/2020 12:00:00 AM EDT MEDENT ([facility]) MRI BRAIN BRAIN STEM W/O CONTRAST MATERIAL 07/20/2020 12:00:00 AM EST MEDENT ([facility] ) MRI BRAIN BRAIN STEM W/O CONTRAST MATERIAL 07/20/2020 12:00:00 AM EST MEDENT ([facility] ) MRI SPINAL CANAL LUMBAR W/O CONTRAST MATERIAL 07/20/19 12:00:00 AM EST MEDENT ([facility] ) MRI SPINAL CANAL LUMBAR W/O CONTRAST MATERIAL 07/20/19 12:00:00 AM EST MEDENT ([facility] ) OFFICE OUTPATIENT VISIT 15 MINUTES 07/15/2020 12:00:00 AM EST MEDENT ([facility]) NON-INVASIVE PHYSIOLOGIC STUDY EXTREMITY 3 LEVLS 07/05 12:00:00 AM EST MEDENT ([facility] ) NON-INVASIVE PHYSIOLOGIC STUDY EXTREMITY 3 LEVLS 07/05 12:00:00 AM EST MEDENT ([facility] ) TSTG ANS FUNCJ CARDIOVAGAL INNERVAJ PARASYMP 12:00:00 AM EST MEDENT ([facility] ) TESTING AUTONOMIC NERVOUS SYSTEM FUNCTION 07/05/2020 1 2:00:00 AM EST MEDENT ([facility] ) ELECTROENCEPHALOGRAM W/REC AWAKE&ASLEEP 07/04/2020 12: 00:00 AM EST MEDENT ([facility] ) ELECTROENCEPHALOGRAM W/REC AWAKE&ASLEEP 07/04/2020 12: 00:00 AM EST MEDENT ([facility], ) OFFICE OUTPATIENT VISIT 25 MINUTES 07/03/2020 12:00:00 AM EST MEDENT ([facility]) Needle electromyography, each extremity, with related paraspinal areas, when performed, done with nerve conduction, amplitude and latency/velocity study; complete, five or more muscles studied, innervated by three or more nerves or four or more spinal levels (list separately in addition to the code for primary procedure). 06/24/2020 12:00:00 AM EST MEDEN T ([facility], ) Needle electromyography, each extremity, with related paraspinal areas, when performed, done with nerve conduction, amplitude and latency/velocity study; complete, five or more muscles studied, innervated by three or more nerves or four or more spinal levels (list separately in addition to the code for primary procedure). 06/24/2020 12:00:00 AM EST MEDEN T ([facility], ) Nerve Conduction 11-12 Studies 06/24/2020 12:00:00 AM EST MEDENT ([facility] ) PARING/CUTTING BENIGN HYPERKERATOTIC LESION 2-4 2020 12:00:00 AM EST MED[facility] ([facility] DEBRIDEMENT NAIL ANY METHOD 06/19/2020 12:00:00 AM EST MEDENT ([facility] Results ID Date Data Source [id number] 03/27/2021 04:00:00 PM EDT MEDENT ([facility]) Name Value Range Interpretation Code Description Data Mary rce(s) Supporting Document(s) Bacteria identified in Urine by Culture Laboratory test result Normal (applies to non-numeric results) [facility] ([facility]) <content>FULL REPORT IN LAB NOTES (eCW [...] FOR ESBL</content>
<content></content> ID Date Data Source [id number] 03/27/2021 04:00:00 PM EDT [facility] ([facility]) Name Value Range Interpretation Code Description Data Mary rce(s) Supporting Document(s) Appearance, Urine Laboratory test result Normal (applies to non-numeric results) [facility] Specific [place] Urine Auto 1.004 1.002-1.035 Norm al (applies to non-numeric results) [facility] ([facility]) Color, Urine Laboratory test result Normal (applies to non -numeric results) [facility] PH,Urine 6.0 units 5.0-9.0 Normal (applies to non-numeric resul ts) [facility] ([facility]) Glucose, Urine (Ua) Auto Laboratory test result Normal (applies to non-numeric results) [facility] ([facility]) Protein, Urine Auto Laboratory test result Samantha l (applies to non-numeric results) [facility] ([facility]) Ketone, Urine Auto Laboratory test result Normal (applies to non-numeric results) [facility] ([facility]) Urobilinogen, Urine Auto 0.2 mg/dL 0.0-2.0 Normal (applies to non-numeric results) [facility] ([facility]) Nitrite, Urine Auto Laboratory test result Samantha l (applies to non-numeric results) [facility] Bilirubin, Urine Auto Laboratory test result Nor mal (applies to non-numeric results) [facility] ([facility]) Blood, Urine Blood Laboratory test result Normal (applies to non-numeric results) [facility]) Leukocyte Esterase, Urine Auto Laboratory test result Normal (applies to non- numeric results) [facility]) WBC, Urine Auto 1 /HPF 0-3 Normal (applies to non-numeric results) [facility]) Squamous Epithelial Cell Ur AU 0 /HPF 0-6 N ormal (applies to non-numeric results) [facility]) Bacteria, Urine Auto Laboratory test result Norm al (applies to non-numeric results) [facility]) RBC, Urine Auto 0 /HPF 0-3 Normal (applies to non-numeric results) [facility]) Hyaline Cast, Urine Auto 0 /LPF 0-1 Normal (applies to non -numeric results) [facility] ([facility]) ID Date Data Source [id number] 02/01/2021 10:44:00 AM EDT [facility] Name Value Range Interpretation Code Description Data Mary rce(s) Supporting Document(s) SARS-CoV-2 (COVID 19) NEGATIVE - SARS-CoV-2 (COVID19) [facility] This lab was ordered by [facility] a nd reported by [facility]. ID Date Data Source [id number] 01/26/2021 10:24:00 PM EDT [facility] Name Value Range Interpretation Code Description Data Mary rce(s) Supporting Document(s) SARS coronavirus 2 RNA [Presence] in Res piratory specimen by DAWIT with probe detection NEGATIVE [facility] This lab was ordered by [facility] a nd reported by [facility]. ID Date Data Source [id number] 01/26/2021 06:09:00 PM EDT [facility] Name Value Range Interpretation Code Description Data Mary rce(s) Supporting Document(s) Glucose [Mass/volume] in Capillary blood by Glucometer 126 mg/dL 83-110 Above high normal [facility] ([facility]) ID Date Data Source [id number] 01/26/2021 05:53:00 PM EDT [facility]) Name Value Range Interpretation Code Description Data Mary rce(s) Supporting Document(s) Ammonia [Mass/volume] in Blood 13 uMOL/L N ormal (applies to non-numeric results) [facility]) Lactate [Mass/volume] in Serum or Plasma 1.6 mmol/L 0.4-2.0 Normal (applies to non-numeric results) [facility] ([facility]) Y/N query for Sepsis Lactate Rule: Y ID Date Data Source [id number] 01/26/2021 05:53:00 PM EDT [facility] Name Value Range Interpretation Code Description Data Mary rce(s) Supporting Document(s) Alt/SGPT 26 U/L 12-78 Normal (applies to non-numeric resul ts) [facility]) Ast/Sgot 13 U/L 7-37 Normal (applies to non-numeric resul ts) [facility]) Alkaline Phosphatase 85 U/L 45-117 Normal (applies to non-num caren results) [facility] ([facility]) Bilirubin,Total 0.6 mg/dL 0.2-1.0 Normal (applies to non-numeric results) [facility]) Bilirubin,Direct 0.1 mg/dL 0.0-0.2 Normal (applies to non-numeric results) [facility]) Total Protein 7.0 GM/DL 6.4-8.2 Normal (applies to non-numeric re sults) [facility] ([facility]) Albumin 3.3 GM/DL 3.2-5.2 Normal (applies to non-numeric resul ts) [facility] ([facility]) Albumin/Globulin Ratio 0.9 1.2-2.2 Below low normal [facility] ([facility]) ID Date Data Source [id number] 01/26/2021 05:53:00 PM EDT [facility] ([facility]) Name Value Range Interpretation Code Description Data Mary rce(s) Supporting Document(s) Glucose, Fasting 119 mg/dL 70-100 Above high normal [facility] Blood Urea Nitrogen 20 mg/dL 7-18 Above high normal [facility] ([facility]) Creatinine For GFR 1.45 mg/dL 0.55-1.30 Above high normal [facility] ([facility]) Sodium Level 143 meq/L 136-145 Normal (applies to non-numeric res ults) [facility] ([facility]) Glomerular Filtration Rate 37.1 Below low normal [facility] ([facility]) <content>Units are mL/min/1.73 m2</content>
<content></content>
<content>Chronic Kidney Disease Staging per NKF:</content>
<content></content>
<content>Stage I & II GFR >=60 Normal to Mildly Decreased</content>
<content>Stage III GFR 30- 59 Moderately Decreased</content>
<content>Stage IV GFR 15-29 Severely Decreased</content>
<content>Stage V GFR <15 Very Little GFR Left</content>
<content>ESRD GFR <15 on DICTATING TRANSCRIBING MACHINE SERVICER</content>
<content></content> Chloride Level 112 meq/L 98-107 Above high normal [facility] ([facility]) Potassium Serum 3.8 meq/L 3.5-5.1 Normal (applies to non-numeric results) [facility] Carbon Dioxide Level 25 meq/L 21-32 Normal (applies to non-num caren results) [facility] ([facility]) Calcium Level 8.8 mg/dL 8.8-10.2 Normal (applies to non-numeric re sults) [facility] ([facility]) Anion Gap 6 meq/L 8-16 Below low normal [facility] ( [facility]) ID Date Data Source [id number] 01/26/2021 05:53:00 PM EDT [facility] Name Value Range Interpretation Code Description Data Mary rce(s) Supporting Document(s) Osmolality of Serum or Plasma 296 MOSM/KG 280-301 No rmal (applies to non-numeric results) [facility]) Thyrotropin [Units/volume] in Serum or Plasma 1.400 uIU/ML 0. 358-3.740 Normal (applies to non-numeric results) [facility] ([facility]) ID Date Data Source [id number] 01/26/2021 05:53:00 PM EDT [facility] ([facility]) Name Value Range Interpretation Code Description Data Mary rce(s) Supporting Document(s) Red Blood Count 3.73 10 4.00-5.40 Below low normal [facility] ([facility]) White Blood Count 19.8 10 4.0-10.0 Above high normal [facility] ([facility]) A Pathologist review of this differentia l can help in the evaluation of a differential diagnosis. Please order a Pathologist Review (PERISM) if deemed necessary. Results are subject to change if a Pathologist Review is performed. Hemoglobin 11.7 g/dL 12.0-15.5 Below low normal [facility] ( [facility]) Hematocrit 36.6 % 36.0-47.0 Normal (applies to non-numeric resul ts) [facility]) Mean Corpuscular HGB Conc 32.0 g/dL 32.0-36.5 Normal (applies to non-numeric results) [facility] ([facility]) Mean Corpuscular Volume 98.1 fl 80.0-96.0 Above high normal [facility] ([facility]) Mean Corpuscular Hemoglobin 31.4 pg 27.0-33.0 Norm al (applies to non-numeric results) [facility] ([facility]) Red Cell Distribution Width 13.4 % 11.5-14.5 Norm al (applies to non-numeric results) [facility] ([facility]) Platelet Count, Automated 315 10 150-450 Normal (applies to non-numeric results) [facility] ([facility]) Nucleated Red Blood Cell % 0.0 % 0-0 Normal (applies to n on-numeric results) [facility] ([facility]) ID Date Data Source [id number] 01/26/2021 05:53:00 PM EDT [facility] ([facility]) Name Value Range Interpretation Code Description Data Mary rce(s) Supporting Document(s) Bands 2 % Normal (applies to non-numeric resul ts) [facility] ([facility]) Neutrophils 85 % 28-66 Above high normal [facility] ([facility]) Lymphocytes 6 % 16-44 Below low normal [facility] ([facility]) Monocytes 7 % 0-5 Above high normal [facility] ([facility]) Platelet Clumps Laboratory test result Normal (a pplies to non-numeric results) [facility] ([facility]) ID Date Data Source [id number] 01/26/2021 05:53:00 PM EDT [facility] ([facility]) Name Value Range Interpretation Code Description Data Mary rce(s) Supporting Document(s) Platelets [#/volume] in Blood by Estimate Laboratory test result Normal (applies to non-numeric results) [facility] ([facility]) ID Date Data Source [id number] 01/26/2021 05:53:00 PM EDT [facility] ([facility]) Name Value Range Interpretation Code Description Data Mary rce(s) Supporting Document(s) Appearance, Urine RFX Laboratory test result Nor mal (applies to non-numeric results) [facility] ([facility]) Color, Urine RFX Laboratory test result Normal ( applies to non-numeric results) [facility] ([facility]) Protein, Urine Auto RFX Laboratory test result Above high normal [facility] ([facility]) Specific [place] Ur Auto RFX 1.003 1.002-1.035 Nor mal (applies to non-numeric results) [facility]) PH,Urine RFX 7.0 units 5.0-9.0 Normal (applies to non-numeric res ults) [facility]) Urobilinogen, Urine Auto RFX 0.2 mg/dL 0.0-2.0 Nor mal (applies to non-numeric results) [facility]) Ketone, Urine Auto RFX Laboratory test result No rmal (applies to non-numeric results) [facility]) Glucose, Urine (Ua) Auto RFX Laboratory test result Normal (applies to non- numeric results) [facility] ([facility]) Bilirubin, Urine Auto RFX Laboratory test result Normal (applies to non- numeric results) [facility] ([facility]) Nitrite, Urine Auto RFX Laboratory test result N ormal (applies to non-numeric results) [facility] ([facility]) Blood, Urine Blood RFX Laboratory test result Above high n ormal [facility] ([facility]) Leukocyte Esterase Ur Auto RFX Laboratory test result Abov e high normal [facility] ([facility]) WBC, Urine Auto RFX 4 /HPF 0-3 Above high normal [facility] ([facility]) Bacteria, Urine Auto RFX Laboratory test result Above high normal [facility] ([facility]) RBC, Urine Auto RFX 1 /HPF 0-3 Normal (applies to non-nume paula results) [facility] ([facility]) Hyaline Cast, Urine Auto RFX 0 /LPF 0-1 Normal (appl ies to non-numeric results) [facility] ([facility]) Squam Epithelial Cell Ur Aurfx 0 /HPF 0-6 N ormal (applies to non-numeric results) [facility] ([facility]) ID Date Data Source [id number] 01/26/2021 05:53:00 PM EDT [facility] Name Value Range Interpretation Code Description Data Mary rce(s) Supporting Document(s) Venous PH 7.350 units 7.330-7.430 Normal (applies to non-numeric res ults) [facility] ([facility]) Venous Partial Pressure O2 51.0 mmHg 30.0-50.0 Above high normal [facility] ([facility]) Venous Partial Pressure Co2 46.8 mmHg 38.0-50.0 Norm al (applies to non-numeric results) [facility] ([facility]) Venous Hco3 25.3 meq/L 23.0-27.0 Normal (applies to non-numeric resu lts) [facility] ([facility]) Venous Total Co2 26.7 meq/L 24.0-28.0 Normal (applies to non-numeric results) [facility] ([facility]) Venous Standard Hco3 23.7 meq/L Normal (applies to non-num caren results) [facility] ([facility]) Venous O2 Saturation 86.5 % 60.0-80.0 Above high normal [facility] ([facility]) Venous Base Excess -0.7 Normal (applies to non-numer ic results) [facility] ([facility]) ID Date Data Source [id number] 01/26/2021 05:53:00 PM EDT [facility] ([facility]) Name Value Range Interpretation Code Description Data Mary rce(s) Supporting Document(s) CPK Creatine Phosphokinase 97 U/L 26-192 Samantha l (applies to non-numeric results) [facility] ([facility]) CK-MB Value Mass 1.7 ng/mL Normal (applies to non-numeric results) [facility] ([facility]) MB/CK Relative Index 1.75 Normal (applies to non-num caren results) [facility] ([facility]) <content>DIAGNOSIS CRITERIA</content>
<content>MMB ng/ml Relative Index (RI)</content>
<content>NON-AMI < or = 5 N/A</content>
<content>MANCUSO ZONE > 5 < or = 4</content>
<content>AMI > 5 > 4</content>
<content></content> Troponin I Laboratory test result Normal (applies to non-n umeric results) [facility] ([facility]) <content>Troponin I Reference Interval f or Siemens [place] LOCI:</content>
<content></content>
<content>99th Percentile= 0.00-0.045 ng/ml</content>
<content></content>
<content>Risk Stratification:</content>
<content><= 0.10 ng/ml Decreased Risk for Adverse Clinical</content>
<content>Events.</content>
<content>0.10-1.50 ng/ml Increased Risk for Adverse Clinical</content>
<content>Events. Evaluation of additional</content>
<content>criterion and/or repeat testing in 2-6</content>
<content>hours is suggested to rule out myocardial</content>
<content>damage.</content>
<content>>= 1.50 ng/ml Indicative of Myocardial Injury.</content>
<content></content> ID Date Data Source [id number] 01/23/2021 09:36:46 PM EDT [facility] Name Value Range Interpretation Code Description Data Mary rce(s) Supporting Document(s) LITHIUM 0.69 mmol/L (0.60-1.50) [facility] ID Date Data Source [id number] OP 01/23/2021 12:00:00 AM EDT [facility] ([facility]) Name Value Range Interpretation Code Description Data Mary rce(s) Supporting Document(s) VENIPUNCTURE VENIPUNCTURE [facility]CW1 ([facility]) ID Date Data Source CBC w/DIFF 01/23/2021 12:00:00 AM EDT [facility] ([facility]) Name Value Range Interpretation Code Description Data Mary rce(s) Supporting Document(s) 3.86 4.20-6.30 RBC [facility] ([facility]) 9.4 4.1-10.9 WBC [facility] ([facility]) 12.0 12.0-18.0 HGB [facility] ([facility]) 99.5 80.0-97.0 MCV [facility] ([facility]) 38.4 36.0-51.0 HCT [facility] ([facility]) 382 140-440 PLT [facility]CW[facility] ([facility]) 31.3 31.0-36.0 MCHC [facility]CW[facility] ([facility]) 31.1 26.0-32.0 MCH [facility]CW[facility] ([facility]) 9.4 7.4-10.4 MPV [facility] ([facility]) 49.2 36.4-46.3 RDW-SD eCW1 ([facility]) 13.2 11.5-15.5 RDW-CV [facility]1 ([facility]) 0.90 0.20-0.90 MONO # [facility]CW1 ([facility]) 2.52 0.60-4.10 LYMPH # [facility]CW1 ([facility]) 0.32 0.00-0.50 EO # [facility]CW1 ([facility]) 5.60 1.60-6.10 NEUT # [facility]CW1 ([facility]) 0.07 0.00-0.10 BASO # [facility]CW[facility] ([facility]) 26.8 10.0-58.5 LYMPH % [facility]CW1 ([facility]) 59.4 34.0-71.1 NEUT % [facility]CW1 ([facility]) 0.7 0.1-1.2 BASO % [facility]CW1 ([facility]) 9.6 10.0-58.5 MONO % [facility]CW1 ([facility]) 3.4 0.7-7.0 EO % [facility]CW1 ([facility]) 0.10 0.00-0.43 IG% [facility]CW1 ([facility]) 0.01 LOW IG# [facility]CW1 ([facility]) ID Date Data Source PTH,INTACT 01/23/2021 12:00:00 AM EDT eCW1 ([facility]) Name Value Range Interpretation Code Description Data Mary rce(s) Supporting Document(s) 71.3 8.2-83.5 PTH,INTACT [facility] ([facility]) ID Date Data Source [id number] 01/23/2021 12:00:00 AM EDT eCW1 ([facility]) Name Value Range Interpretation Code Description Data Mary rce(s) Supporting Document(s) 3.7 3.4-5.0 ALBUMIN [facility]CW[facility] ([facility]) 19 7-18 BUN [facility]CW1 ([facility]) 9.1 8.5-10.1 CALCIUM [facility]CW1 ([facility]) 50.92 >=60.00 GFR NON-AFR.AM [facility] ([facility]) 61.61 >=60.00 GFR AFR.AM [facility] ([facility]) 1.1 0.6-1.3 CREATININE [facility]CW1 ([facility] 106 100-108 CHLORIDE [facility]CW1 ([facility] 4.5 3.6-5.2 POTASSIUM [facility]CW1 ([facility]) 140 135-145 SODIUM [facility]CW1 ([facility]) 7.7 6.4-8.2 TOTAL PROTEIN eCW1 ([facility]) 0.30 0.20-1.00 T BILIRUBIN [facility] 31.2 21.0-32.0 CO2 [facility] ([facility]) 104.0 70.0-110.0 GLUCOSE eCW1 ([facility] 96 46-116 ALPI [facility]CW1 ([facility] 16 15-37 AST [facility] 3 5-15 ANION GAP [facility]CW1 ([facility] 28 30-65 ALTI [facility]CW[facility] ([facility] ID Date Data Source [id number] 01/01/2021 11:14:00 AM EDT [facility] ([facility]) Name Value Range Interpretation Code Description Data Mary rce(s) Supporting Document(s) Glucose, Fasting 93 mg/dL 70-100 Normal (applies to non-numeric results) [facility] ([facility]) Creatinine For GFR 1.14 mg/dL 0.55-1.30 Normal (applies to non -numeric results) [facility] Blood Urea Nitrogen 19 mg/dL 7-18 Above high normal [facility] ([facility]) Sodium Level 143 meq/L 136-145 Normal (applies to non-numeric res ults) [facility] ([facility]) Potassium Serum 4.8 meq/L 3.5-5.1 Normal (applies to non-numeric results) [facility]) Glomerular Filtration Rate 48.9 Normal (applies to n on-numeric results) [facility] ([facility]) <content>Units are mL/min/1.73 m2</content>
<content></content>
<content>Chronic Kidney Disease Staging per NKF:</content>
<content></content>
<content>Stage I & II GFR >=60 Normal to Mildly Decreased</content>
<content>Stage III GFR 30- 59 Moderately Decreased</content>
<content>Stage IV GFR 15-29 Severely Decreased</content>
<content>Stage V GFR <15 Very Little GFR Left</content>
<content>ESRD GFR <15 on DICTATING TRANSCRIBING MACHINE SERVICER</content>
<content></content> Chloride Level 110 meq/L 98-107 Above high normal [facility] ([facility]) Anion Gap 1 meq/L 8-16 Below low normal [facility] ( [facility]) Carbon Dioxide Level 32 meq/L 21-32 Normal (applies to non-num caren results) [facility]) Ast/Sgot 14 U/L 7-37 Normal (applies to non-numeric resul ts) [facility] ([facility]) Calcium Level 9.1 mg/dL 8.8-10.2 Normal (applies to non-numeric re sults) [facility] ([facility]) Alt/SGPT 26 U/L 12-78 Normal (applies to non-numeric resul ts) [facility]) Bilirubin,Total 0.3 mg/dL 0.2-1.0 Normal (applies to non-numeric results) [facility] ([facility]) Alkaline Phosphatase 74 U/L 45-117 Normal (applies to non-num caren results) [facility] ([facility]) Total Protein 6.7 GM/DL 6.4-8.2 Normal (applies to non-numeric re sults) [facility]) Albumin/Globulin Ratio 1.2 1.2-2.2 Normal (applies to non-n umeric results) [facility] ([facility]) Albumin 3.6 GM/DL 3.2-5.2 Normal (applies to non-numeric resul ts) [facility]) ID Date Data Source [id number] 01/01/2021 11:14:00 AM EDT [facility] Name Value Range Interpretation Code Description Data Mary rce(s) Supporting Document(s) Thyroid Stimulating Hormone 2.280 uIU/ML 0.358-3.740 Norm al (applies to non- numeric results) [facility]) Free T4 0.75 ng/dL 0.76-1.46 Below low normal [facility] ( [facility]) ID Date Data Source [id number] 01/01/2021 11:14:00 AM EDT [facility] ([facility]) Name Value Range Interpretation Code Description Data Mary rce(s) Supporting Document(s) Calcidiol [Mass/volume] in Serum or Plasma 61.3 ng/mL 30.0- 100.0 Normal (applies to non-numeric results) [facility] Cobalamin (Vitamin B12) [Mass/volume] in Serum or Plasma 459 pg/ mL 247-911 Normal (applies to non-numeric results) [facility]) VITAMIN B12 NORMAL RANGE NORMAL 247 - 911 PG/ML INDETERMINATE 211 - 246 PG/ML DEFICIENT LESS THAN 211 PG/ML ID Date Data Source [id number] 01/01/2021 11:14:00 AM EDT [facility] Name Value Range Interpretation Code Description Data Mary rce(s) Supporting Document(s) Iron (Fe) 70 ug/dL 50-170 Normal (applies to non-numeric resul ts) [facility] Total Iron Binding Capacity 354 ug/dL 250-450 Norm al (applies to non-numeric results) [facility]) Percent Saturation 19.8 % 13.2-45.0 Normal (applies to non-numer ic results) [facility]) ID Date Data Source [id number] 01/01/2021 11:14:00 AM EDT [facility] Name Value Range Interpretation Code Description Data Mary rce(s) Supporting Document(s) Ferritin [Mass/volume] in Serum or Plasma 46 ng/mL 8-252 Normal (applies to non- numeric results) [facility] ID Date Data Source [id number] 01/01/2021 11:14:00 AM EDT [facility] Name Value Range Interpretation Code Description Data Mary rce(s) Supporting Document(s) White Blood Count 8.4 10 4.0-10.0 Normal (applies to non-numeri c results) [facility] [facility] Hemoglobin 11.7 g/dL 12.0-15.5 Below low normal [facility] ( [facility]) Red Blood Count 3.81 10 4.00-5.40 Below low normal [facility] ([facility]) Hematocrit 38.0 % 36.0-47.0 Normal (applies to non-numeric resul ts) [facility] ([facility]) Mean Corpuscular Hemoglobin 30.7 pg 27.0-33.0 Norm al (applies to non-numeric results) [facility] ([facility]) Mean Corpuscular Volume 99.7 fl 80.0-96.0 Above high normal [facility] ([facility]) Platelet Count, Automated 344 10 150-450 Normal (applies to non-numeric results) [facility] ([facility]) Mean Corpuscular HGB Conc 30.8 g/dL 32.0-36.5 Below low normal [facility] ([facility]) Red Cell Distribution Width 13.6 % 11.5-14.5 Norm al (applies to non-numeric results) [facility] ([facility]) Neutrophils % 53.8 % 36.0-66.0 Normal (applies to non-numeric re sults) [facility] ([facility]) Lymph % 31.0 % 24.0-44.0 Normal (applies to non-numeric resul ts) [facility] ([facility]) Baso % 1.1 % 0.0-1.0 Above high normal [facility] ([facility]) [place] % 9.4 % 2.0-8.0 Above high normal [facility] ([facility]) Eos % 4.3 % 0.0-3.0 Above high normal [facility] ([facility]) Nucleated Red Blood Cell % 0.0 % 0-0 Normal (applies to n on-numeric results) [facility] ([facility]) Immature Granulocyte % 0.4 % 0-3.0 Normal (applies to non-n umeric results) [facility] ([facility]) Neutrophils # 4.6 10 1.5-8.5 Normal (applies to non-numeric re sults) [facility] ([facility]) Lymph # 2.6 10 1.5-5.0 Normal (applies to non-numeric resul ts) [facility] ([facility]) [place] # 0.8 10 0.0-0.8 Normal (applies to non-numeric resul ts) [facility] ([facility]) Eos # 0.4 10 0.0-0.5 Normal (applies to non-numeric resul ts) [facility] ([facility]) Baso # 0.1 10 0.0-0.2 Normal (applies to non-numeric resul ts) [facility] ID Date Data Source [id number] 11/20/2020 03:44:00 PM EDT [facility] Name Value Range Interpretation Code Description Data Mary rce(s) Supporting Document(s) [place] [Mass/volume] in Serum or Plasma 0.54 meq/L 0.60-1.20 Below low normal [facility] ([facility]) ID Date Data Source [id number] 09/30/2020 03:53:00 PM EDT [facility] Name Value Range Interpretation Code Description Data Mary rce(s) Supporting Document(s) Magnesium [Mass/volume] in Serum or Plasma 2.9 mg/dL 1.8-2.4 Above high normal [facility] ([facility]) [place] [Mass/volume] in Serum or Plasma 0.64 meq/L 0.60-1. 20 Normal (applies to non-numeric results) [facility] ([facility]) ID Date Data Source [id number] 06/28/2020 10:43:00 AM EST [facility] ([facility]) Name Value Range Interpretation Code Description Data Mary rce(s) Supporting Document(s) Cobalamin (Vitamin B12) [Mass/volume] in Serum or Plasma 575 pg/ mL 247-911 Normal (applies to non-numeric results) [facility] ([facility]) VITAMIN B12 NORMAL RANGE NORMAL 247 - 911 PG/ML INDETERMINATE 211 - 246 PG/ML DEFICIENT LESS THAN 211 PG/ML Calcidiol [Mass/volume] in Serum or Plasma 49.4 ng/mL 30.0- 100.0 Normal (applies to non-numeric results) [facility] Ferritin [Mass/volume] in Serum or Plasma 96 ng/mL 8-252 Normal (applies to non- numeric results) [facility] ID Date Data Source [id number] 06/28/2020 10:43:00 AM EST [facility] ([facility]) Name Value Range Interpretation Code Description Data Mary rce(s) Supporting Document(s) Iron (Fe) 101 ug/dL 50-170 Normal (applies to non-numeric resul ts) [facility] ([facility]) Total Iron Binding Capacity 332 ug/dL 250-450 Norm al (applies to non-numeric results) [facility] ([facility]) Percent Saturation 30.4 % 13.2-45.0 Normal (applies to non-numer ic results) [facility] ([facility]) ID Date Data Source [id number] 06/28/2020 10:43:00 AM EST [facility] ([facility]) Name Value Range Interpretation Code Description Data Mary rce(s) Supporting Document(s) Thyroid Stimulating Hormone 0.831 uIU/ML 0.358-3.740 Norm al (applies to non- numeric results) [facility] ([facility]) Free T4 0.93 ng/dL 0.76-1.46 Normal (applies to non-numeric resul ts) [facility] ([facility]) ID Date Data Source [id number] 06/28/2020 10:43:00 AM EST [facility] ([facility]) Name Value Range Interpretation Code Description Data Mary rce(s) Supporting Document(s) White Blood Count 8.5 10 4.0-10.0 Normal (applies to non-numeri c results) [facility] ([facility]) Hemoglobin 11.0 g/dL 12.0-15.5 Below low normal [facility]) Red Blood Count 3.62 10 4.00-5.40 Below low normal [facility] ([facility]) Mean Corpuscular Volume 100.3 fl 80.0-96.0 Above high normal [facility] ([facility]) Hematocrit 36.3 % 36.0-47.0 Normal (applies to non-numeric resul ts) [facility] Mean Corpuscular Hemoglobin 30.4 pg 27.0-33.0 Norm al (applies to non-numeric results) [facility] ([facility]) Mean Corpuscular HGB Conc 30.3 g/dL 32.0-36.5 Below low normal [facility] ([facility]) Red Cell Distribution Width 12.7 % 11.5-14.5 Norm al (applies to non-numeric results) [facility] ([facility]) Platelet Count, Automated 407 10 150-450 Normal (applies to non-numeric results) [facility] ([facility]) Lymph % 28.9 % 24.0-44.0 Normal (applies to non-numeric resul ts) [facility] ([facility]) Neutrophils % 56.4 % 36.0-66.0 Normal (applies to non-numeric re sults) [facility] ([facility]) [place] % 9.4 % 0.0-5.0 Above high normal [facility] ([facility]) Eos % 4.3 % 0.0-3.0 Above high normal [facility] ([facility]) Baso % 0.8 % 0.0-1.0 Normal (applies to non-numeric resul ts) [facility] ([facility]) Immature Granulocyte % 0.2 % 0-3.0 Normal (applies to non-n umeric results) [facility] ([facility]) Nucleated Red Blood Cell % 0.0 % 0-0 Normal (applies to n on-numeric results) [facility] ([facility]) Lymph # 2.5 10 1.5-5.0 Normal (applies to non-numeric resul ts) [facility] ([facility]) Neutrophils # 4.8 10 1.5-8.5 Normal (applies to non-numeric re sults) [facility] ([facility]) Eos # 0.4 10 0.0-0.5 Normal (applies to non-numeric resul ts) [facility] ([facility]) [place] # 0.8 10 0.0-0.8 Normal (applies to non-numeric resul ts) [facility] ([facility]) Baso # 0.1 10 0.0-0.2 Normal (applies to non-numeric resul ts) [facility] ([facility]) ID Date Data Source [id number] 06/28/2020 10:43:00 AM EST [facility] ([facility]) Name Value Range Interpretation Code Description Data Mary rce(s) Supporting Document(s) Glucose, Fasting 97 mg/dL 70-100 Normal (applies to non-numeric results) [facility] ([facility]) Blood Urea Nitrogen 19 mg/dL 7-18 Above high normal [facility] ([facility]) Creatinine For GFR 1.25 mg/dL 0.55-1.30 Normal (applies to non -numeric results) [facility] Glomerular Filtration Rate 44.1 Normal (applies to n on-numeric results) [facility] ([facility]) <content>Units are mL/min/1.73 m2</content>
<content></content>
<content>Chronic Kidney Disease Staging per NKF:</content>
<content></content>
<content>Stage I & II GFR >=60 Normal to Mildly Decreased</content>
<content>Stage III GFR 30- 59 Moderately Decreased</content>
<content>Stage IV GFR 15-29 Severely Decreased</content>
<content>Stage V GFR <15 Very Little GFR Left</content>
<content>ESRD GFR <15 on DICTATING TRANSCRIBING MACHINE SERVICER</content>
<content></content> Sodium Level 141 meq/L 136-145 Normal (applies to non-numeric res ults) [facility] Chloride Level 106 meq/L 98-107 Normal (applies to non-numeric r esults) [facility] ([facility]) Carbon Dioxide Level 30 meq/L 21-32 Normal (applies to non-num caren results) [facility] ([facility]) Potassium Serum 3.8 meq/L 3.5-5.1 Normal (applies to non-numeric results) [facility] ([facility]) Calcium Level 9.6 mg/dL 8.8-10.2 Normal (applies to non-numeric re sults) [facility] ([facility]) Anion Gap 5 meq/L 8-16 Below low normal [facility] ( [facility]) Alkaline Phosphatase 80 U/L 45-117 Normal (applies to non-num caren results) [facility] ([facility]) Alt/SGPT 29 U/L 12-78 Normal (applies to non-numeric resul ts) [facility] ([facility]) Ast/Sgot 14 U/L 7-37 Normal (applies to non-numeric resul ts) [facility] ([facility]) Bilirubin,Total 0.5 mg/dL 0.2-1.0 Normal (applies to non-numeric results) [facility] ([facility]) Total Protein 7.0 GM/DL 6.4-8.2 Normal (applies to non-numeric re sults) [facility] ([facility]) Albumin 3.7 GM/DL 3.2-5.2 Normal (applies to non-numeric resul ts) [facility] ([facility]) Albumin/Globulin Ratio 1.1 1.2-2.2 Below low normal [facility] ([facility]) ID Date Data Source [id number] 06/02/2020 12:00:00 AM EST [facility] Name Value Range Interpretation Code Description Data Mary rce(s) Supporting Document(s) SARS coronavirus 2 RNA [Presence] in Res piratory specimen by DAWIT with probe detection NEGATIVE [facility] This lab was ordered by [facility] and reported by [facility]. ID Date Data Source [id number] 06/02/2020 12:00:00 AM EST [facility] Name Value Range Interpretation Code Description Data Mary rce(s) Supporting Document(s) Carestart Rapid COVID Antigen Test Negative [facility] This lab was reported by [facility]. ID Date Data Source [id number] 05/08/2020 11:00:00 AM EST [facility] ([facility]) Name Value Range Interpretation Code Description Data Mary rce(s) Supporting Document(s) Bacteria identified in Urine by Culture Laboratory test result Normal (applies to non-numeric results) [facility] FULL REPORT IN LAB NOTES ([facility] and [facility] ). NO GROWTH ID Date Data Source [id number] 05/08/2020 11:00:00 AM EST [facility] ([facility]) Name Value Range Interpretation Code Description Data Mary rce(s) Supporting Document(s) Appearance, Urine Laboratory test result Normal (applies to non-numeric results) [facility] ([facility]) Color, Urine Laboratory test result Normal (applies to non -numeric results) [facility] ([facility]) PH,Urine 7.0 units 5.0-9.0 Normal (applies to non-numeric resul ts) [facility] ([facility]) Specific [place] Urine Auto 1.003 1.002-1.035 Norm al (applies to non-numeric results) [facility] ([facility]) Protein, Urine Auto Laboratory test result Samantha l (applies to non-numeric results) [facility] ([facility]) Glucose, Urine (Ua) Auto Laboratory test result Normal (applies to non-numeric results) [facility] ([facility]) Ketone, Urine Auto Laboratory test result Normal (applies to non-numeric results) [facility] ([facility]) Urobilinogen, Urine Auto 0.2 mg/dL 0.0-2.0 Normal (applies to non-numeric results) [facility] Nitrite, Urine Auto Laboratory test result Samantha l (applies to non-numeric results) [facility]) Bilirubin, Urine Auto Laboratory test result Nor mal (applies to non-numeric results) [facility] ([facility]) Leukocyte Esterase, Urine Auto Laboratory test result Abov e high normal [facility]) Blood, Urine Blood Laboratory test result Normal (applies to non-numeric results) [facility]) RBC, Urine Auto 0 /HPF 0-3 Normal (applies to non-numeric results) [facility]) WBC, Urine Auto 1 /HPF 0-3 Normal (applies to non-numeric results) [facility]) Bacteria, Urine Auto Laboratory test result Norm al (applies to non-numeric results) [facility] ([facility]) Hyaline Cast, Urine Auto 0 /LPF 0-1 Normal (applies to non -numeric results) [facility] Squamous Epithelial Cell Ur AU 0 /HPF 0-6 N ormal (applies to non-numeric results) [facility]) ID Date Data Source [id number] 05/07/2020 04:59:00 PM EST [facility] ([facility]) Name Value Range Interpretation Code Description Data Mary rce(s) Supporting Document(s) Thyroid Stimulating Hormone 1.040 uIU/ML 0.358-3.740 Norm al (applies to non- numeric results) [facility] ([facility]) Free T4 1.02 ng/dL 0.76-1.46 Normal (applies to non-numeric resul ts) [facility] ID Date Data Source [id number] 05/07/2020 04:59:00 PM EST [facility] ([facility]) Name Value Range Interpretation Code Description Data Mary rce(s) Supporting Document(s) Folate Laboratory test result Normal (applies to non-n umeric results) [facility] ([facility]) FOLATE NORMAL RANGE NORMAL GREATER THAN 5.4 NG/ML INDETERMINATE 3.4-5.4 NG/ML DEFICIENT LESS THAN 3.4 NG/ML Vitamin B12 Level 671 pg/mL Normal (applies to non-numeri c results) [facility] ([facility]) VITAMIN B12 NORMAL RANGE NORMAL 247 - 911 PG/ML INDETERMINATE 211 - 246 PG/ML DEFICIENT LESS THAN 211 PG/ML ID Date Data Source [id number] 05/07/2020 04:59:00 PM EST [facility] ([facility]) Name Value Range Interpretation Code Description Data Mary rce(s) Supporting Document(s) [place] [Mass/volume] in Serum or Plasma 0.61 meq/L 0.60-1. 20 Normal (applies to non-numeric results) [facility]) ID Date Data Source [id number] 05/07/2020 04:59:00 PM EST [facility] ([facility]) Name Value Range Interpretation Code Description Data Mary rce(s) Supporting Document(s) Bacteria identified in Urine by Culture Laboratory test result [facility] ([facility]) ID Date Data Source [id number] 05/02/2020 12:41:00 PM EST [facility] ([facility]) Name Value Range Interpretation Code Description Data Mary rce(s) Supporting Document(s) Ferritin [Mass/volume] in Serum or Plasma 72 ng/mL 8-252 Normal (applies to non- numeric results) [facility] ([facility]) ID Date Data Source [id number] 05/02/2020 12:41:00 PM EST [facility] ([facility]) Name Value Range Interpretation Code Description Data Mary rce(s) Supporting Document(s) Obdwy-2-Dtncdncl % 5.1 % 2.9-4.9 Above high normal [facility] ([facility]) Albumin % 56.7 % 55.8-66.1 Normal (applies to non-numeric resul ts) [facility] ([facility]) Obnki-6-Tnrklwgdj % 12.7 % 7.1-11.8 Above high normal [facility] ([facility]) Raqc-9-Bcjqzmixz % 7.3 % 4.7-7.2 Above high normal [facility] ([facility]) Jpgl-4-Gywecogwj % 7.2 % 3.2-6.5 Above high normal [facility] ([facility]) Gamma Globulin % 11.0 % 11.1-18.8 Below low normal [facility] ([facility]) Albumin 4.08 GM/DL 3.29-5.55 Normal (applies to non-numeric resul ts) [facility] ([facility]) Ychsl-6-Hnkdnyuds 0.91 GM/DL 0.42-0.99 Normal (applies to non- numeric results) [facility] ([facility]) Fyhqd-0-Suhzlebtp 0.37 GM/DL 0.17-0.41 Normal (applies to non- numeric results) [facility] ([facility]) Onsn-4-Kyjyaekhd 0.53 GM/DL 0.28-0.60 Normal (applies to non-numeric results) [facility] ([facility]) Dvdq-1-Xddrvyxip 0.52 GM/DL 0.19-0.55 Normal (applies to non-numeric results) [facility] ([facility]) Gamma Globulins 0.79 GM/DL 0.65-1.58 Normal (applies to non-numeric results) [facility] ([facility]) Total Protein 7.2 GM/DL 6.4-8.2 Normal (applies to non-numeric re sults) [facility] ([facility]) Laboratory test finding (navigational concept) Laboratory test r esult Normal (applies to non-numeric results) [facility] REV'D BY Efrem LEMOS Spep Interpretation Laboratory test result Samantha l (applies to non-numeric results) [facility] NO M-SPIKE(S)NOTED. ID Date Data Source [id number] 05/02/2020 12:41:00 PM EST [facility] ([facility]) Name Value Range Interpretation Code Description Data Mary rce(s) Supporting Document(s) Laboratory test finding (navigational concept) Laboratory test r esult Normal (applies to non-numeric results) [facility]) REV'D BY Efrem LEMOS Laboratory test finding (navigational concept) Laboratory test r esult Normal (applies to non-numeric results) [facility] ([facility]) NO MONOCLONAL BANDS NOTED. ID Date Data Source [id number] 05/02/2020 12:41:00 PM EST [facility] ([facility]) Name Value Range Interpretation Code Description Data Mary rce(s) Supporting Document(s) Iron (Fe) 106 ug/dL 50-170 Normal (applies to non-numeric resul ts) [facility] Percent Saturation 28.2 % 13.2-45.0 Normal (applies to non-numer ic results) [facility] Total Iron Binding Capacity 376 ug/dL 250-450 Norm al (applies to non-numeric results) [facility]) ID Date Data Source [id number] 05/02/2020 12:41:00 PM EST [facility] ([facility]) Name Value Range Interpretation Code Description Data Mary rce(s) Supporting Document(s) Lactate dehydrogenase [Enzymatic activit y/volume] in Serum or Plasma by Lactate to pyruvate reaction 210 U/L 84-246 Normal (applies to non-numeric re sults) [facility] ID Date Data Source [id number] 05/02/2020 12:41:00 PM EST [facility] ([facility]) Name Value Range Interpretation Code Description Data Mary rce(s) Supporting Document(s) Glucose, Fasting 75 mg/dL 70-100 Normal (applies to non-numeric results) [facility] Blood Urea Nitrogen 14 mg/dL 7-18 Normal (applies to non-nume paula results) [facility] ([facility]) Creatinine For GFR 1.11 mg/dL 0.55-1.30 Normal (applies to non -numeric results) [facility] ([facility]) Glomerular Filtration Rate 50.6 Normal (applies to n on-numeric results) [facility] ([facility]) <content>Units are mL/min/1.73 m2</content>
<content></content>
<content>Chronic Kidney Disease Staging per NKF:</content>
<content></content>
<content>Stage I & II GFR >=60 Normal to Mildly Decreased</content>
<content>Stage III GFR 30-59 Moderately Decreased</content>
<content>Stage IV GFR 15-29 Severely Decreased</content>
<content>Stage V GFR <15 Very Little GFR Left</content>
<content>ESRD GFR <15 on DICTATING TRANSCRIBING MACHINE SERVICER</content>
<content></content> Sodium Level 142 meq/L 136-145 Normal (applies to non-numeric res ults) [facility] ([facility]) Potassium Serum 3.9 meq/L 3.5-5.1 Normal (applies to non-numeric results) [facility] ([facility]) Chloride Level 109 meq/L 98-107 Above high normal [facility] ([facility]) Carbon Dioxide Level 31 meq/L 21-32 Normal (applies to non-num caren results) [facility] ([facility]) Anion Gap 2 meq/L 8-16 Below low normal [facility] ( [facility]) Ast/Sgot 14 U/L 7-37 Normal (applies to non-numeric resul ts) [facility] Calcium Level 9.5 mg/dL 8.8-10.2 Normal (applies to non-numeric re sults) [facility] ([facility]) Alt/SGPT 29 U/L 12-78 Normal (applies to non-numeric resul ts) [facility] ([facility]) Alkaline Phosphatase 86 U/L 45-117 Normal (applies to non-num caren results) [facility] ([facility]) Bilirubin,Total 0.3 mg/dL 0.2-1.0 Normal (applies to non-numeric results) [facility] ([facility]) Albumin 3.7 GM/DL 3.2-5.2 Normal (applies to non-numeric resul ts) [facility] ([facility]) Total Protein 7.2 GM/DL 6.4-8.2 Normal (applies to non-numeric re sults) [facility] ([facility]) Albumin/Globulin Ratio 1.1 1.2-2.2 Below low normal [facility] ([facility]) ID Date Data Source [id number] 05/02/2020 12:41:00 PM EST [facility] ([facility]) Name Value Range Interpretation Code Description Data Mary rce(s) Supporting Document(s) Haptoglobin [Mass/volume] in Serum or Plasma 194 mg/dL 42- 346 Normal (applies to non-numeric results) [facility] ([facility]) Performed at: RN - [facility] [place] [id number] Candy Dipper Hand: Geovanna Stroud MD, Phone: [phone] ID Date Data Source [id number] 05/02/2020 12:41:00 PM EST [facility] ([facility]) Name Value Range Interpretation Code Description Data Mary rce(s) Supporting Document(s) Wero Result Calc Laboratory test result Normal (a pplies to non-numeric results) [facility] ([facility]) ID Date Data Source [id number] 05/02/2020 12:41:00 PM EST [facility] ([facility]) Name Value Range Interpretation Code Description Data Mary rce(s) Supporting Document(s) Reticulocyte % 1.2 % 0.5-1.5 Normal (applies to non-numeric r esults) [facility] ([facility]) Reticulocyte # 46.5 10 17-77 Normal (applies to non-numeric r esults) [facility] ([facility]) Retic Hemoglobin Equivalent 35.5 pg 24-36 Norm al (applies to non-numeric results) [facility] ([facility]) ID Date Data Source [id number] 05/02/2020 12:41:00 PM EST [facility] ([facility]) Name Value Range Interpretation Code Description Data Mary rce(s) Supporting Document(s) White Blood Count 9.5 10 4.0-10.0 Normal (applies to non-numeri c results) [facility] ([facility]) Hemoglobin 12.3 g/dL 12.0-15.5 Normal (applies to non-numeric resul ts) [facility] ([facility]) Red Blood Count 3.95 10 4.00-5.40 Below low normal [facility] ([facility]) Hematocrit 39.3 % 36.0-47.0 Normal (applies to non-numeric resul ts) [facility] ([facility]) Mean Corpuscular Volume 99.5 fl 80.0-96.0 Above high normal [facility] ([facility]) Mean Corpuscular Hemoglobin 31.1 pg 27.0-33.0 Norm al (applies to non-numeric results) [facility] ([facility]) Mean Corpuscular HGB Conc 31.3 g/dL 32.0-36.5 Below low normal [facility] ([facility]) Red Cell Distribution Width 13.1 % 11.5-14.5 Norm al (applies to non-numeric results) [facility] ([facility]) Platelet Count, Automated 434 10 150-450 Normal (applies to non-numeric results) [facility] ([facility]) Neutrophils % 59.8 % 36.0-66.0 Normal (applies to non-numeric re sults) [facility] ([facility]) Lymph % 25.2 % 24.0-44.0 Normal (applies to non-numeric resul ts) [facility] ([facility]) [place] % 10.0 % 0.0-5.0 Above high normal [facility] ([facility]) Eos % 3.7 % 0.0-3.0 Above high normal [facility] ([facility]) Immature Granulocyte % 0.3 % 0-3.0 Normal (applies to non-n umeric results) [facility] ([facility]) Baso % 1.0 % 0.0-1.0 Normal (applies to non-numeric resul ts) [facility] ([facility]) Neutrophils # 5.7 10 1.5-8.5 Normal (applies to non-numeric re sults) [facility] ([facility]) Nucleated Red Blood Cell % 0.0 % 0-0 Normal (applies to n on-numeric results) [facility] ([facility]) Lymph # 2.4 10 1.5-5.0 Normal (applies to non-numeric resul ts) [facility] ([facility]) [place] # 1.0 10 0.0-0.8 Above high normal [facility] ([facility]) Baso # 0.1 10 0.0-0.2 Normal (applies to non-numeric resul ts) [facility] ([facility]) Eos # 0.4 10 0.0-0.5 Normal (applies to non-numeric resul ts) [facility] ([facility]) ID Date Data Source [id number] 04/02/2020 12:00:00 AM EST [facility] Temitope Contreras DO Patient Name: DAYAMI [id number] Date of : [address] Date of Exam: 04/02/2020KIT Montesinos [id number]#: Fax: [id number] EXAM: HIP LEFT UNILATERAL (COMPLETE) [...] rce(s) Supporting Document(s) ID Date Data Source [id number] 02/27/2020 09:04:00 AM EDT [facility] ([facility]) Name Value Range Interpretation Code Description Data Mary rce(s) Supporting Document(s) Natriuretic peptide.B prohormone N-Terminal [Mass/volu me] in Serum or Plasma 140 pg/mL Normal (applies to non-numeric results) [facility] ([facility]) FAX TO [phone] FAX TO [phone] Magnesium [Mass/volume] in Serum or Plasma 2.9 mg/dL 1.8-2.4 Above high normal [facility] ([facility]) FAX TO [phone] FAX TO [phone] Thyrotropin [Units/volume] in Serum or Plasma 1.080 uIU/ML 0. 358-3.740 Normal (applies to non-numeric results) [facility] ([facility]) FAX TO [phone] FAX TO [phone] ID Date Data Source [id number] 02/27/2020 09:04:00 AM EDT [facility] ([facility]) Name Value Range Interpretation Code Description Data Mary rce(s) Supporting Document(s) Glucose, Fasting 86 mg/dL 70-100 Normal (applies to non-numeric results) [facility] ([facility]) Blood Urea Nitrogen 15 mg/dL 7-18 Normal (applies to non-nume paula results) [facility] Sodium Level 144 meq/L 136-145 Normal (applies to non-numeric res ults) [facility] Glomerular Filtration Rate 54.0 Normal (applies to n on-numeric results) [facility] ([facility]) <content>Units are mL/min/1.73 m2</content>
<content></content>
<content>Chronic Kidney Disease Staging per NKF:</content>
<content></content>
<content>Stage I & II GFR >=60 Normal to Mildly Decreased</content>
<content>Stage III GFR 30- 59 Moderately Decreased</content>
<content>Stage IV GFR 15-29 Severely Decreased</content>
<content>Stage V GFR <15 Very Little GFR Left</content>
<content>ESRD GFR <15 on DICTATING TRANSCRIBING MACHINE SERVICER</content>
<content></content> Creatinine For GFR 1.05 mg/dL 0.55-1.30 Normal (applies to non -numeric results) [facility] ([facility]) Chloride Level 109 meq/L 98-107 Above high normal [facility] ([facility]) Potassium Serum 4.6 meq/L 3.5-5.1 Normal (applies to non-numeric results) [facility] ([facility]) Carbon Dioxide Level 31 meq/L 21-32 Normal (applies to non-num caren results) [facility] ([facility]) Anion Gap 4 meq/L 8-16 Below low normal [facility] ( [facility]) Calcium Level 8.9 mg/dL 8.8-10.2 Normal (applies to non-numeric re sults) [facility] ([facility]) Alt/SGPT 24 U/L 12-78 Normal (applies to non-numeric resul ts) [facility] ([facility]) Ast/Sgot 15 U/L 7-37 Normal (applies to non-numeric resul ts) [facility] Alkaline Phosphatase 82 U/L 45-117 Normal (applies to non-num caren results) [facility] ([facility]) Total Protein 6.8 GM/DL 6.4-8.2 Normal (applies to non-numeric re sults) [facility] ([facility]) Bilirubin,Total 0.3 mg/dL 0.2-1.0 Normal (applies to non-numeric results) [facility] ([facility]) Albumin/Globulin Ratio 1.1 1.2-2.2 Below low normal [facility] ([facility]) Albumin 3.5 GM/DL 3.2-5.2 Normal (applies to non-numeric resul ts) [facility] ([facility]) ID Date Data Source [id number] 02/27/2020 09:04:00 AM EDT [facility] ([facility]) Name Value Range Interpretation Code Description Data Mary rce(s) Supporting Document(s) Red Blood Count 3.48 10 4.00-5.40 Below low normal [facility] ([facility]) White Blood Count 8.8 10 4.0-10.0 Normal (applies to non-numeri c results) [facility] ([facility]) Mean Corpuscular Volume 100.3 fl 80.0-96.0 Above high normal [facility] ([facility]) Hematocrit 34.9 % 36.0-47.0 Below low normal [facility] ( [facility]) Hemoglobin 10.6 g/dL 12.0-15.5 Below low normal [facility]) Mean Corpuscular Hemoglobin 30.5 pg 27.0-33.0 Norm al (applies to non-numeric results) [facility] ([facility]) Mean Corpuscular HGB Conc 30.4 g/dL 32.0-36.5 Below low normal [facility] ([facility]) Red Cell Distribution Width 13.5 % 11.5-14.5 Norm al (applies to non-numeric results) [facility] ([facility]) Platelet Count, Automated 357 10 150-450 Normal (applies to non-numeric results) [facility] ([facility]) Lymph % 28.9 % 24.0-44.0 Normal (applies to non-numeric resul ts) [facility] ([facility]) Neutrophils % 56.1 % 36.0-66.0 Normal (applies to non-numeric re sults) [facility] ([facility]) Baso % 1.1 % 0.0-1.0 Above high normal [facility] ([facility]) Eos % 2.8 % 0.0-3.0 Normal (applies to non-numeric resul ts) [facility] ([facility]) [place] % 10.9 % 0.0-5.0 Above high normal [facility] ([facility]) Immature Granulocyte % 0.2 % 0-3.0 Normal (applies to non-n umeric results) [facility] ([facility]) Nucleated Red Blood Cell % 0.0 % 0-0 Normal (applies to n on-numeric results) [facility] ([facility]) Neutrophils # 4.9 10 1.5-8.5 Normal (applies to non-numeric re sults) [facility] ([facility]) [place] # 1.0 10 0.0-0.8 Above high normal [facility] ([facility]) Lymph # 2.5 10 1.5-5.0 Normal (applies to non-numeric resul ts) [facility] ([facility]) Eos # 0.3 10 0.0-0.5 Normal (applies to non-numeric resul ts) [facility] ([facility]) Baso # 0.1 10 0.0-0.2 Normal (applies to non-numeric resul ts) [facility] ([facility]) Procedure Social History Code Duration Value Status Description Data Source(s ) Smoking 02/24/2021 12:00:00 AM EDT Patient has never smoked co mpleted Patient has never smoked [facility] ([facility]) Smoking 01/23/2021 12:00:00 AM EDT Never Smoker completed Never S mihaela eCW1 ([facility]) Smoking 01/23/2021 12:00:00 AM EDT Never Smoker completed Never S mihaela eCW1 ([facility]) Vital Signs ID Date Data Source UNK Name Value Range Interpretation Code Description Data Source(s) Oxygen saturation in Arterial blood by Pulse oximetry 96 % 96 % [facility] [place] body weight 100 [lb_av] 100 [lb_av] [facility] T ([facility]) Systolic blood pressure 126 mm[Hg] 126 mm[Hg] M [facility] ([facility]) Diastolic blood pressure 76 mm[Hg] 76 mm[Hg] [facility] ([facility]) Body height 59.6 [in_i] 59.6 [in_i] [facility] ([facility]) 4'11.60" Body weight 154.00 [lb_av] 154.00 [lb_av] [facility] ([facility]) Body mass index (BMI) [Ratio] 30.5 kg/m2 30.5 k g/m2 [facility] ([facility]) Heart rate 67 /min 67 /min [facility] ([facility]) Respiratory rate 20 /min 20 /min [facility] ( [facility]) Body temperature 98.5 [degF] 98.5 [degF] [facility] ([facility]) [place] body weight 110 [lb_av] 110 [lb_av] [facility] T ([facility]) Body weight 70.903 kg 70.903 kg [facility] ([facility]) Body temperature 98.3 [degF] 98.3 [degF] [facility] ([facility]) Body height 62 [in_i] 62 [in_i] [facility] ([facility]) 5'2" Body weight 156.31 [lb_av] 156.31 [lb_av] [facility] ([facility]) Body mass index (BMI) [Ratio] 28.6 kg/m2 28.6 k g/m2 [facility] ([facility]) Body surface area Derived from formula 1.72 m2 1.72 m2 [facility] ([facility]) Systolic blood pressure 152 mm[Hg] 152 mm[Hg] M [facility]ENT ([facility]) Diastolic blood pressure 74 mm[Hg] 74 mm[Hg] [facility], ) Body height 59.6 [in_i] 59.6 [in_i] [facility] ([facility]) " Diastolic blood pressure 70 mm[Hg] 70 mm[Hg] [facility] ([facility]) Body weight 156.38 [lb_av] 156.38 [lb_av] [facility] ([facility]) Systolic blood pressure 120 mm[Hg] 120 mm[Hg] M [facility] ([facility]) Body mass index (BMI) [Ratio] 30.9 kg/m2 30.9 k g/m2 [facility] ([facility]) Heart rate 99 /min 99 /min [facility] ([facility]) Respiratory rate 12 /min 12 /min [facility] ( [facility]) Body temperature 98.0 [degF] 98.0 [degF] [facility] ([facility]) Oxygen saturation in Arterial blood by Pulse oximetry 99 % 99 % [facility] ([facility]) [place] body weight 100 [lb_av] 100 [lb_av] [facility] ([facility]) Body weight 156.25 [lb_av] 156.25 [lb_av] [facility] ([facility]) Body mass index (BMI) [Ratio] 30.9 kg/m2 30.9 k g/m2 [facility] ([facility]) Heart rate 99 /min 99 /min [facility] ([facility]) Respiratory rate 18 /min 18 /min [facility] ( [facility]) Body temperature 98.6 [degF] 98.6 [degF] [facility] ([facility]) Oxygen saturation in Arterial blood by Pulse oximetry 96 % 96 % [facility] ([facility]) Systolic blood pressure 128 mm[Hg] 128 mm[Hg] M [facility] ([facility]) Diastolic blood pressure 72 mm[Hg] 72 mm[Hg] [facility] ([facility]) Body height 59.6 [in_i] 59.6 [in_i] [facility] ([facility]) " [place] body weight 100 [lb_av] 100 [lb_av] [facility] ([facility]) Heart rate 76 /min 76 /min eCW1 ([facility]) Body weight 155.0 [lb_av] 155.0 [lb_av] eCW1 ([facility]) Body height 61.5 [in_i] 61.5 [in_i] eCW1 ([facility]) Body mass index (BMI) [Ratio] 28.81 kg/m2 28.81 kg/m2 eCW1 ([facility]) Oxygen saturation in Arterial blood by Pulse oximetry 99 % 99 % eCW1 ([facility]) Body temperature 99.1 [degF] 99.1 [degF] [facility] ([facility]) Systolic blood pressure 132 mm[Hg] 132 mm[Hg] M [facility] ([facility]) Diastolic blood pressure 68 mm[Hg] 68 mm[Hg] [facility] ([facility]) Body height 59.6 [in_i] 59.6 [in_i] [facility] ([facility]) 4'11.60" Body weight 154.12 [lb_av] 154.12 [lb_av] [facility] ([facility]) Body mass index (BMI) [Ratio] 30.5 kg/m2 30.5 k g/m2 [facility] ([facility]) Heart rate 78 /min 78 /min [facility] ([facility]) Respiratory rate 18 /min 18 /min [facility] ( [facility]) Oxygen saturation in Arterial blood by Pulse oximetry 97 % 97 % [facility] ([facility]) [place] body weight 100 [lb_av] 100 [lb_av] [facility] ([facility]) Body weight 150.38 [lb_av] 150.38 [lb_av] [facility] ([facility]) Body mass index (BMI) [Ratio] 29.8 kg/m2 29.8 k g/m2 [facility] ([facility]) Oxygen saturation in Arterial blood by Pulse oximetry 97 % 97 % [facility] ([facility]) [place] body weight 100 [lb_av] 100 [lb_av] [facility] ([facility]) Systolic blood pressure 148 mm[Hg] 148 mm[Hg] M [facility] ([facility]) Diastolic blood pressure 80 mm[Hg] 80 mm[Hg] [facility] ([facility]) Body height 59.6 [in_i] 59.6 [in_i] [facility] ([facility]) 4'11.60" Heart rate 81 /min 81 /min [facility] ([facility]) Body temperature 98.5 [degF] 98.5 [degF] [facility] ([facility]) Systolic blood pressure 125 mm[Hg] 125 mm[Hg] [facility]) Diastolic blood pressure 72 mm[Hg] 72 mm[Hg] [facility]) Heart rate 84 /min 84 /min [facility] ([facility], [facility]) Respiratory rate 16 /min 16 /min [facility] ( [facility]) Oxygen saturation in Arterial blood by Pulse oximetry 99 % 99 % [facility] ([facility]) Body temperature 98.4 [degF] 98.4 [degF] [facility]) Body weight 150.00 [lb_av] 150.00 [lb_av] [facility] ([facility]) Body height 61 [in_i] 61 [in_i] [facility]) 5'1" Body mass index (BMI) [Ratio] 28.3 kg/m2 28.3 k g/m2 [facility]) [place] body weight 100 [lb_av] 100 [lb_av] [facility] ([facility]) Systolic blood pressure 132 mm[Hg] 132 mm[Hg] M [facility] ([facility]) Diastolic blood pressure 74 mm[Hg] 74 mm[Hg] [facility] ([facility]) Body height 59.6 [in_i] 59.6 [in_i] [facility]) " Body weight 150.50 [lb_av] 150.50 [lb_av] [facility] ([facility]) Body mass index (BMI) [Ratio] 29.8 kg/m2 29.8 k g/m2 [facility] ([facility]) Heart rate 90 /min 90 /min [facility] ([facility]) Respiratory rate 18 /min 18 /min [facility] ( [facility]) Body temperature 98.4 [degF] 98.4 [degF] [facility] ([facility]) Oxygen saturation in Arterial blood by Pulse oximetry 98 % 98 % [facility] ([facility]) Body height 59.6 [in_i] 59.6 [in_i] [facility] ([facility]) " Body mass index (BMI) [Ratio] 28.9 kg/m2 28.9 k g/m2 [facility] ([facility]) Heart rate 84 /min 84 /min [facility] ([facility]) Respiratory rate 20 /min 20 /min [facility] ( [facility]) Body temperature 97.3 [degF] 97.3 [degF] [facility] ([facility]) Oxygen saturation in Arterial blood by Pulse oximetry 99 % 99 % [facility] ([facility]) Systolic blood pressure 122 mm[Hg] 122 mm[Hg] M [facility] ([facility]) Diastolic blood pressure 82 mm[Hg] 82 mm[Hg] [facility] ([facility]) Body weight 146.00 [lb_av] 146.00 [lb_av] [facility] ([facility]) [place] body weight 100 [lb_av] 100 [lb_av] [facility] ([facility]) Systolic blood pressure 140 mm[Hg] 140 mm[Hg] [facility]) Diastolic blood pressure 74 mm[Hg] 74 mm[Hg] [facility] ([facility]) [place] body weight 100 [lb_av] 100 [lb_av] [facility] ([facility]) Body height 59.6 [in_i] 59.6 [in_i] [facility] ([facility]) " Body weight 150.38 [lb_av] 150.38 [lb_av] [facility] ([facility]) Body mass index (BMI) [Ratio] 29.8 kg/m2 29.8 k g/m2 [facility] ([facility]) Heart rate 103 /min 103 /min [facility] ([facility]) Respiratory rate 14 /min 14 /min [facility] ( [facility]) Body temperature 98.3 [degF] 98.3 [degF] [facility] ([facility]) Oxygen saturation in Arterial blood by Pulse oximetry 97 % 97 % [facility] ([facility]) Oxygen saturation in Arterial blood by Pulse oximetry 99 % 99 % [facility] ([facility]) Body mass index (BMI) [Ratio] 30.3 kg/m2 30.3 k g/m2 [facility] ([facility]) Heart rate 96 /min 96 /min [facility] ([facility]) Body height 59.6 [in_i] 59.6 [in_i] [facility] ([facility]) " Body weight 153.00 [lb_av] 153.00 [lb_av] [facility] ([facility]) Respiratory rate 18 /min 18 /min [facility] ( [facility]) Body temperature 98.3 [degF] 98.3 [degF] [facility] ([facility]) [place] body weight 100 [lb_av] 100 [lb_av] [facility] ([facility]) Systolic blood pressure 144 mm[Hg] 144 mm[Hg] M [facility] ([facility]) Diastolic blood pressure 68 mm[Hg] 68 mm[Hg] [facility] ([facility]) Systolic blood pressure 124 mm[Hg] 124 mm[Hg] M [facility] ([facility]) Body height 59.6 [in_i] 59.6 [in_i] [facility] ([facility]) " Diastolic blood pressure 72 mm[Hg] 72 mm[Hg] [facility] ([facility]) Oxygen saturation in Arterial blood by Pulse oximetry 97 % 97 % [facility] ([facility]) Heart rate 88 /min 88 /min [facility] ([facility]) Body temperature 98.3 [degF] 98.3 [degF] [facility] ([facility]) [place] body weight 100 [lb_av] 100 [lb_av] [facility] ([facility]) Respiratory rate 18 /min 18 /min [facility] ( [facility]) Diastolic blood pressure 80 mm[Hg] 80 mm[Hg] [facility] ([facility]) Systolic blood pressure 128 mm[Hg] 128 mm[Hg] M [facility] ([facility]) Body height 59.6 [in_i] 59.6 [in_i] [facility] ([facility]) 4'11.60" [place] body weight 100 [lb_av] 100 [lb_av] [facility] ([facility]) Body weight 150.50 [lb_av] 150.50 [lb_av] [facility] ([facility]) Body mass index (BMI) [Ratio] 29.8 kg/m2 29.8 k g/m2 [facility] ([facility]) Heart rate 89 /min 89 /min [facility] ([facility]) Respiratory rate 16 /min 16 /min [facility] ( [facility]) Body temperature 97.6 [degF] 97.6 [degF] [facility] ([facility]) Oxygen saturation in Arterial blood by Pulse oximetry 96 % 96 % [facility] ([facility]) Patient Treatment Plan of Care Planned Activity Planned Date Details Description Data Source (s) Amphetamine aspartate 5 MG / Amphetamine Sulfate 5 MG / Dextroamphetamine saccharate 5 MG / Dextroamphetamine Sulfate 5 MG Oral Tablet [Adderall] 10/24/2020 12:00:00 AM EDT eCW1 ([facility]) Amphetamine aspartate 5 MG / Amphetamine Sulfate 5 MG / Dextroamphetamine saccharate 5 MG / Dextroamphetamine Sulfate 5 MG Oral Tablet [Adderall] 07/23/2020 12:00:00 AM EST eCW1 ([facility])
--- NOTE | 2021-04-02 09:33 | REP ---
INDICATION: trauma. COMPARISON: 01/26/2021 TECHNIQUE: 5 mm axial images through the head without contrast. FINDINGS: The visualized paranasal sinuses are clear. The mastoids are normally aerated. No evidence of a fracture of the calvarium is identified. Mild cerebral atrophy is present with concomitant mild dilatation of the ventricles. Normal garcía-white matter differentiation is noted. No mass, hemorrhage or extra-axial fluid collections are noted. Low-density areas adjacent to the anterior horns of the lateral ventricles are consistent with ischemic demyelinization. In comparison to the prior study there has been no appreciable change. IMPRESSION: Mild atrophy but no acute or interval change is identified. <Electronically signed by Amos Chew > 04/02/21 [id number]
--- NOTE | 2021-04-02 09:34 | REP ---
INDICATION: trauma. COMPARISON: None. TECHNIQUE: Trauma protocol with coronal and sagittal bone window reconstructions. FINDINGS: Normal cervical lordosis maintained. There is some degenerative changes at the articulation of the dens and anterior arch of C1. Dens and lateral masses of C1 with normal relationship on the coronal views. There is no compression deformity or destructive lesion. There is cervical spondylosis at C5-6 and C6-7 as well as T2-3. Minimally at C3-4. Disc space heights slightly narrowed at the C 5 6 and C6-7. No compression deformity or destructive lesion. The posterior elements show the spinous processes, lamina, pedicles, facets and transverse processes without fracture there is some facet arthropathy left greater than right. Those portions of the 1st 4 rib pairs seen were unremarkable. There is some posterior pleural thickening in the bilateral apices. Craniocervical and cervicothoracic junction align normally. No prevertebral swelling. There is no torticollis. No central canal stenosis is present. Foramina show marginally adequate left C3-4 foramen due to uncinate and facet spurs wall the other foramina are ample. IMPRESSION: 1. Cervical spondylosis as described some mild foraminal encroachment only on the left at C3-4 and no central canal or other foraminal stenosis. No compression deformity of the spine or malalignment. Negative exam for acute spinal abnormality. 2. Posterior apical pleural thickening bilaterally right slightly greater than left. <Electronically signed by Ruy Coleman > 04/02/21 [id number]
--- OUTSIDE RECORDS SUMMARY | 2021-04-02 10:18 | CCD ---
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 Name Role Phone JUAN MANUEL-LAKEISHA, TEMITOPE DO [...] JUAN MANUEL-LAKEISHA, TEMITOPE DO Unavailable Unavailable JUAN MAUNEL-LAKEISHA, TEMITOPE DO Unavailable Unavailable JUAN MANUEL-LAKEISHA, TEMITOPE [...] Unavailable BYRON, BARBER MD Unavailable Unavailable Ravi, Krik PA Unavailable Unavailable Ravi, Kirk PA Unavailable [...] MANUEL-LAKEISHA, TEMITOPE DO Unavailable Unavailable JUAN MANUEL-LAKEISHA, TEMIOTPE DO Unavailable Unavailable JUAN MANUEL-LAKEISHA, TEMITOPE DO [...] Unavailable Alarcon, L Ameena RPA Unavailable Unavailable Alarocn, L Ameena RPA Unavailable Unavailable Alarcon, L [...] L Ameena RPA Unavailable Unavailable DESJARLAIS, RICKEY SKI PATROL Unavailable Unavailable DESJARLAIS, RICKEY SKI PATROL Unavailable Unavailable DESJARLAIS, RICKEY SKI PATROL Unavailable Unavailable DESJARLAIS, RICKEY SKI PATROL Unavailable Unavailable DESJARLAIS, RICKEY SKI PATROL Unavailable Unavailable DESJARLAIS, RICKEY SKI PATROL Unavailable Unavailable DESJARLAIS, RICKEY SKI PATROL Unavailable Unavailable DESJARLAIS, RICKEY SKI PATROL Unavailable Unavailable DESJARLAIS, RICKEY SKI PATROL Unavailable Unavailable DESJARLAIS, RICKEY SKI PATROL Unavailable Unavailable PONCHO, BREA DEVON PA-C Unavailable [...] is protected by Article 27-F of the [facility] Public Health law. If you continue you may have access to information: Regarding HIV / AIDS; Provided by facilities licensed or operated by the [facility] Office of Mental Health; or Provided by the [facility] Office for People With Developmental Disabilities. If such information is present, then the following [facility] mandated warning applies: This information [...] law may result in a fine or custodial sentence or both. A general authorization for the release of medical or other information is NOT sufficient authorization for further disc losure. Allergies and Adverse Reactions Type Description Substance Reaction Status Data Source(s ) Propensity to adverse reactions SULFA (sulfonamide) SULFA (sulfonamid e) RASH [facility] Family History Family Member Name Family Member Gender Family Member Status Date o f Status Description Data Source(s) Unknown Male Problem MEDENT ([facility]) Unknown Male Problem MEDENT ([facility] Unknown Unknown Problem MEDENT ([facility] Unknown Male Problem MEDENT ([facility]) () Encounters Encounter Providers Location Date Indications Data Source(s ) Emergency Attender: MARY HOLTConsultant: TEMITOPE SANCHEZ DO 03/31/2021 10:47:19 PM [facility] Patient admitted. Outpatient Attender: RICKEY VARELA NP 03/26/2021 09: 34:[address] [facility] Outpatient Attender: Shante CHAVIRA Family Medicine [facility] 03/06/2021 01:40:00 PM EDT MEDENT ([facility]) Outpatient Attender: RICKEY VARELA NP 03/06/2021 10: 01:[address] [facility] Outpatient Attender: Ameena Monsalve/Yasmin/Mitchel/Andrea alexis 02/27/2021 10:00:00 AM EDT MEDENT ([facility] Outpatient Attender: Kirk CHAVIRA [facility] 02/24/2021 01:00:00 PM EDT MEDENT ([facility]) Outpatient Attender: RICKEY VARELA NP 02/19/2021 01: 40:[address] [facility] Outpatient Attender: Kirk CHAVIRA [facility] 02/17/2021 10:20:00 AM EDT MEDENT ([facility]) (TEL) .[facility] 01/23/2021 12:00:00 AM EDT eCW1 ([facility]) Outpatient [facility] 01/23/2021 12:00:00 AM EDT eCW1 ([facility]) Outpatient Attender: RICKEY VARELA NP 01/16/2021 09: 51:[address] [facility] Outpatient [facility] 01/15/2021 12:00:00 AM EDT eCW1 ([facility]) Outpatient Attender: Kirk CHAVIRA [facility] 01/03/2021 10:00:00 AM EDT MEDENT ([facility]) Outpatient Attender: RICKEY VARELA NP 12/19/2020 11: 52:[address] [facility] Outpatient Attender: RICKEY VARELA NP 12/05/2020 03: 20:[address] [facility] Outpatient Attender: Kirk CHAVIRA [facility] 11/19/2020 08:00:00 AM EDT MEDENT ([facility]) Outpatient Attender: SHANTE lopez 11/15/2020 04:05:00 PM EDT MEDENT ([facility]) Outpatient Attender: RICKEY VARELA NP 11/12/2020 10: 56:[address] [facility] Outpatient Attender: RICKEY VARELA NP 10/02/2020 10: 50:[address] [facility] Office Visit Attender: Kirk CHAVIRA [facility] 09/30/2020 02:20:00 PM EDT MEDENT ([facility]) Outpatient Attender: RICKEY VARELA NP 09/05/2020 09: 49:[address] [facility] Outpatient Attender: RICKEY VARELA NP 08/06/2020 10: 46:[address] [facility] Outpatient Attender: RICKEY VARELA NP 07/30/2020 09: 45:00 AM [facility] Outpatient [facility] 07/23/2020 12:00:00 AM EST eCW1 ([facility]) Outpatient Attender: RICKEY VARELA NP 07/16/2020 10: 27:00 AM [facility] Outpatient Attender: Kirk CHAVIRA [facility] 07/15/2020 09:00:00 AM EST MEDENT ([facility]) Outpatient Attender: Kirk CHAVIRA [facility] 07/03/2020 08:20:00 AM EST MEDENT ([facility]) Outpatient Attender: RICKEY VARELA NP 06/28/2020 10: 23:00 AM [facility] [address] [place] [address] 06/28/2020 12:00:00 AM EST eCW1 ([facility]) Outpatient Attender: BARBER MATTHEWS MD Main office - [facility] 06/18/2020 01:30:00 PM EST MEDENT ([facility]) (TEL) .[facility] 06/11/2020 12:00:00 AM EST eCW1 ([facility]) Outpatient Attender: DEVON ISAAC PA-C 06/10/2020 10:34:00 AM [facility] Outpatient Attender: RICKEY VARELA NP 05/31/2020 08: 35:00 AM [facility] Outpatient Attender: Kirk CHAVIRA [facility] 05/14/2020 07:40:00 AM EST MEDENT ([facility]) Outpatient Attender: RICKEY VARELA NP 05/10/2020 08: 31:00 AM [facility] Outpatient Attender: Kirk CHAVIRA [facility] 05/07/2020 02:20:00 PM EST MEDENT ([facility]) Outpatient Attender: RICKEY VARELA NP 04/12/2020 11: 11:00 AM [facility] Outpatient Attender: ALEX NICHOLSON [facility] 03/24 10:00:00 AM EST MEDENT ([facility] Outpatient Attender: TEMITOPE DOLAN DO Family Medicine [facility] 04/02/2020 07:20:00 AM EST MEDENT ([facility]) Outpatient Attender: RICKEY VARELA NP 03/22/2020 10: 34:[address] [facility] (TEL) .[facility] 02/23/2020 12:00:00 AM ED eCW1 ([facility]) Outpatient Attender: RICKEY DESKAYLENERLAIS SKI PATROL 02/16/2020 10: 40:[address] [facility] Outpatient Attender: RICKEY DESJARLAIS SKI PATROL 02/02/2020 10: 40:[address] [facility] Outpatient Attender: RICKEY DESJARLAIS SKI PATROL 01/26/2020 10: 06:[address] [facility] Outpatient Attender: RICKEY DESJARLAIS SKI PATROL 01/16/2020 05: 00:[address] [facility] Outpatient Attender: RICKEY DESJARLAIS SKI PATROL 01/04/2020 09: 01:[address] [facility] Outpatient Attender: RICKEY DESJARLAIS SKI PATROL 12/20/2019 12: 03:[address] [facility] Outpatient Attender: DEVON ISAAC PA-C 12/19/2019 11:47:[address] [facility] Outpatient Attender: RICKEY DESJARLAIS SKI PATROL 12/07/2019 10: 47:[address] [facility] Outpatient Attender: RICKEY DESJARLAIS SKI PATROL 11/29/2019 10: 40:[address] [facility] Outpatient Attender: RICKEY DESJARLAIS SKI PATROL 11/14/2019 11: 34:[address] [facility] Outpatient Attender: RICKEY DESJARLAIS SKI PATROL 11/07/2019 10: 40:[address] [facility] Outpatient Attender: RICKEY DESJARLAIS SKI PATROL 10/25/2019 10: 25:[address] [facility] Outpatient Attender: RICKEY DESJARLAIS SKI PATROL 09/26/2019 04: 20:[address] [facility] Outpatient Attender: RICKEY DESJARLAIS SKI PATROL 09/19/2019 04: 58:[address] [facility] Immunizations Vaccine Date Status Description Data Source(s) COVID-19 VACCINE Moderna 07/26/2020 12:00:00 AM EST completed [facility] Vaccine Series Complete: YESThis Data wa s Submitted to [facility] Via [employer]. COVID-19 VACCINE, MRNA-1273, LNP-S (MODERNA)/PF 07/26/2020 1 2:00:00 AM EST completed [facility] COVID-19 VACCINE Moderna 06/28/2020 12:00:00 AM EST completed [facility] Vaccine Series Complete: NOThis Data was Submitted to [facility] [employer]. COVID-19 VACCINE, MRNA-1273, LNP-S (MODERNA)/PF 06/28/2020 1 [...] 03/30/2021 12:00:00 AM EDT ORAL active MEDENT ([facility]) pantoprazole 40 MG Delayed Release Oral Tablet [...] 1.0 {tablet} active Adderall 20 MG eCW1 ([facility]) Amphetamine aspartate 2.5 MG / Amphetami ne Sulfate 2.5 MG / Dextroamphetamine saccharate 2.5 MG / Dextroamphetamine Sulfate 2.5 MG Oral Tablet [Adderall] Adderall 10 MG Adderall 10 MG 10/24/2020 12:00:00 AM EDT 1.0 {tablet} active Adderall 10 MG eCW1 ([facility]) 0.005 % 09/11/2020 12:00:00 AM [...] DAILY DOSE = 2 SOLD: 07/29/2020 [employer] Covid-19 vaccine, Unspecified 07/26/2020 12:00:00 AM EST completed MEDENT ([facility]) Medication administered onsite Amphetamine aspartate 5 MG / Amphetamine Sulfate 5 MG / Dextroamphetamine saccharate 5 MG / Dextroamphetamine Sulfate 5 MG Oral Tablet [Adderall] Adderall 20 MG Adderall 20 MG 07/23/2020 12:00:00 AM EST 1.0 {tablet} active Adderall 20 MG eCW1 ([facility]) Walker Wheels/Fixed With 5 Adjustment Holes/3" 07/18/2020 12:00:00 AM EST active MEDENT ([facility]) Calcium Carbonate 298 MG / Magnesium Chl oride 596 MG Delayed Release Oral Tablet [Slow-Mag Reformulated Jun 2011] Slow-Mag 07/03/2020 12:00:00 AM EST ORAL completed MEDENT ([facility]) Covid-19 vaccine, Unspecified 06/28/2020 12:00:00 AM EST completed MEDENT ([facility]) Medication administered onsite Ergocalciferol 42795 UNT Oral Capsule Ergocalciferol 05/14/2020 12:00:00 AM EST active MEDENT ( [facility]) Shingrix Shingrix 02/26/2020 12:00:00 AM EDT SUBCUTANEOUS completed MEDENT ([facility]) 5 mg/gram (0.5 %) 01/09/2020 12:00:00 AM [...] type / Coverage type Policy ID Covered green party ID Covered green party's relationship to perez Policy Perez Plan Information MEDICARE [id number] SP [id number] MEDICARE [id number] SP [id number] A MEDICARE A [id number] Self [id number] [place] [id number] S [id number] MEDICARE A [id number] Self [id number] [id number] MEDICARE [id number] SP [id number] M10 MEDICARE [id number] SP [id number] A Medicare Natl Gov't Servi Medicare Primary [id number] Self [id number] [place] MED[place]ARE [place] [id number] S [id number] Medicare Natl Gov't Servi Medicare Primary [id number] Self [id number] MEDICARE [id number] SP [id number] A Medicare Natl Gov't Servi Medicare Primary [id number] Self [id number] [employer] [id number] SP [id number] [employer] U [id number] Self [id number] [employer] [id number] SP [id number] [employer] U [id number] Self [id number] UMR [facility] C[facility] [id number] SP [id number] UMR U [id number] Self [id number] UMR [facility] CARE [id number] SP [id number] UMR U [id number] Self [id number] Umr Commercial [id number] Self [id number] [place] [id number] Self [id number] Umr Medigap Part B [id number] Self [id number] Medicare Medicare Primary [id number] Self [id number] Medicare [place] Medicare Primary [id number] Self [id number] Medicare Medicare Primary [id number] Self [id number] Medicare Medicare Primary [id number] Self [id number] Medicare [place] Medicare Primary [id number] Self [id number] ANSI-Medicare Part B [id number] ANSI-Commercial [id number] ANSI-Medicare Part B [id number] ANSI-Commercial [id number] [place] MEDICARE DIVISION [id number] S [id number] [place] [id number] S [id number] [facility] [id number] S [id number] ANSI-Medicare Part B [id number] ANSI-Commercial [id number] ANSI-Commercial [id number] ANSI-Medicare Part B [id number] ANSI-Medicare Part B [id number] ANSI-Commercial [id number] ANSI-Medicare Part B [id number] ANSI-Commercial [id number] Medicare Medicare Primary [id number] Self [id number] ANSI-Commercial [id number] ANSI-Medicare Part B [id number] Medicare Medicare Primary [id number] Self [id number] ANSI-Commercial [id number] ANSI-Medicare Part B [id number] [facility] Medigap Part B [id number] Self [id number] MEDICARE C [id number] S [id number] A MEDICARE [id number] SP [id number] A [employer] [id number] SP [id number] [employer] PPO O [id number] S [id number] [employer] Medigap Part B [id number] Self [id number] [employer] Medigap Part B [id number] Self [id number] Medicare [place] Medicare Primary [id number] Self [id number] [employer] Medigap Part B [id number] Self [id number] [employer] [id number] SP [id number] [employer] Commercial [id number] Self Medicare [place] Medicare Primary [id number] Self [facility] [id number] 18 [id number] [facility] [id number] [facility] [id number] 18 [id number] MEDICARE PART A-CLINIC [id number] 18 [id number] A UMR -O/P [id number] 18 [id number] MEDICARE PART A -O/P [id number] 18 [id number] MEDICARE [id number] SP [id number] UMR [facility] [id number] SP [id number] UMR [id number] S [id number] [place]ICARE [place] [id number] S [id number] [place] MEDICARE DIVISION [id number] S [id number] UMR [id number] S [id number] [place] MEDICARE DIVISION [id number] S [id number] MEDICARE [place] [id number] S [id number] UMR [id number] S [id number] [place] MEDICARE DIVISION UNAVAILABLE S UNAVAILABLE [place] MEDICARE DIVISION [id number] S [id number] [place] MEDICARE DIVISION [id number] S [id number] MEDICARE C [id number] S [id number] UMR O [id number] S [id number] [place] MEDICARE DIVISION [id number] S [id number] [place]ICARE [place] [id number] S [id number] UMR [id number] S [id number] Medicare Medicare Primary [id number] Self [id number] Problems, Conditions, and Diagnoses Code Display Name Description Problem Type Effective Dates Data Source(s) G47.9 Sleep disorder, unspecified SLEEP DISORDER, UNSPECIFIE D Diagnosis 01/16/2021 09:51:[address] [facility] F31.9 Bipolar disorder, unspecified BIPOLAR DISORDER, UNSPEC IFIED Diagnosis 01/16/2021 09:51:[address] [facility] F43.23 Adjustment disorder with mixed anxiety a nd depressed mood ADJUSTMENT DISORDER WITH MIXED ANXIETY AND DEPRESS Diagnosis 12/19/2020 11:52:[address] [facility] R25.1 Tremor, unspecified TREMOR, UNSPECIFIED Diagnosis 0 07/16/2020 10:27:00 AM [facility] G25.2 Other specified forms of tremor OTHER SPECIFIED FORMS OF TREMOR Diagnosis 05/31/2020 08:35:00 AM [facility] E55.9 Vitamin D deficiency Vitamin D deficiency, unspecified Problem 01/23/2021 12:00:00 AM EDT eCW1 ([facility]) F43.23 [id number] Adjustment disorder with mixed a nxiety and depressed mood Problem 11/12/2020 12:00:00 AM EDT eCW1 ([facility]) G25.2 [id number] Coarse tremors Problem 07/01/2020 12:00:00 A M EST eCW1 ([facility]) Surgeries/Procedures Procedure Description Date Indications Data Source(s) OFFICE OUTPATIENT VISIT 15 MINUTES 03/06/2021 12:00:00 AM EDT MEDENT ([facility]) OFFICE OUTPATIENT NEW 45 MINUTES 02/27/2021 12:00:00 A M EDT MEDENT ([facility] ) OFFICE OUTPATIENT VISIT 15 MINUTES 02/24/2021 12:00:00 AM EDT MEDENT ([facility]) Trans Care SRV Aft DC W/I 14D, Comm W/I 2 Dys Med Decs 02/17/2021 12:00:00 AM EDT MEDENT ([facility]) OFFICE OUTPATIENT VISIT 25 MINUTES 01/03/2021 12:00:00 AM EDT MEDENT ([facility]) OFFICE OUTPATIENT VISIT 25 MINUTES 11/19/2020 12:00:00 AM EDT MEDENT ([facility]) OFFICE OUTPATIENT VISIT 15 MINUTES 11/15/2020 12:00:00 AM EDT MEDENT ([facility]) MRI BRAIN BRAIN STEM W/O CONTRAST MATERIAL 07/20/2020 12:00:00 AM EST MEDENT ([facility] ) MRI BRAIN BRAIN STEM W/O CONTRAST MATERIAL 07/20/2020 12:00:00 AM EST MEDENT ([facility] ) MRI SPINAL CANAL LUMBAR W/O CONTRAST MATERIAL 07/20/19 12:00:00 AM EST MEDENT ([facility] ) MRI SPINAL CANAL LUMBAR W/O CONTRAST MATERIAL 07/20/19 12:00:00 AM EST MEDENT ([facility], ) OFFICE OUTPATIENT VISIT 15 MINUTES 07/15/2020 12:00:00 AM EST MEDENT ([facility]) NON-INVASIVE PHYSIOLOGIC STUDY EXTREMITY 3 LEVLS 07/05 12:00:00 AM EST MEDENT ([facility], ) NON-INVASIVE PHYSIOLOGIC STUDY EXTREMITY 3 LEVLS 07/05 12:00:00 AM EST MEDENT ([facility], ) TSTG ANS FUNCJ CARDIOVAGAL INNERVAJ PARASYMP 12:00:00 AM EST MEDENT ([facility], ) TESTING AUTONOMIC NERVOUS SYSTEM FUNCTION 07/05/2020 1 2:00:00 AM EST MEDENT ([facility], ) ELECTROENCEPHALOGRAM W/REC AWAKE&ASLEEP 07/04/2020 12: 00:00 AM EST MEDENT ([facility], ) ELECTROENCEPHALOGRAM W/REC AWAKE&ASLEEP 07/04/2020 12: 00:00 AM EST MEDENT ([facility], ) OFFICE OUTPATIENT VISIT 25 MINUTES 07/03/2020 12:00:00 AM EST MEDENT ([facility]) Needle electromyography, each extremity, with related paraspinal areas, when performed, done with nerve conduction, amplitude and latency/velocity study; complete, five or more muscles studied, innervated by three or more nerves or four or more spinal levels (list separately in addition to the code for primary procedure). 06/24/2020 12:00:00 AM EST MEDEN T ([facility], ) Needle electromyography, each extremity, with related paraspinal areas, when performed, done with nerve conduction, amplitude and latency/velocity study; complete, five or more muscles studied, innervated by three or more nerves or four or more spinal levels (list separately in addition to the code for primary procedure). 06/24/2020 12:00:00 AM EST MEDEN T ([facility], ) Nerve Conduction 11-12 Studies 06/24/2020 12:00:00 AM EST MEDENT ([facility], ) PARING/CUTTING BENIGN HYPERKERATOTIC LESION 2-4 2020 12:00:00 AM EST MEDENT ([facility] DEBRIDEMENT NAIL ANY METHOD 06/19/2020 12:00:00 AM EST MEDENT ([facility] Results ID Date Data Source [id number] 03/27/2021 04:00:00 PM EDT MEDENT ([facility]) Name Value Range Interpretation Code Description Data Mary rce(s) Supporting Document(s) Bacteria identified in Urine by Culture Laboratory test result Normal (applies to non-numeric results) MEDENT ([facility]) <content>FULL REPORT IN LAB NOTES (eCW a [...] FOR ESBL</content>
<content></content> ID Date Data Source [id number] 03/27/2021 04:00:00 PM EDT MEDENT ([facility]) Name Value Range Interpretation Code Description Data Mary rce(s) Supporting Document(s) Appearance, Urine Laboratory test result Normal (applies to non-numeric results) [facility]) Specific [place] Urine Auto 1.004 1.002-1.035 Norm al (applies to non-numeric results) MEDENT ([facility]) Color, Urine Laboratory test result Normal (applies to non -numeric results) [facility]) PH,Urine 6.0 units 5.0-9.0 Normal (applies to non-numeric resul ts) MEDENT ([facility]) Glucose, Urine (Ua) Auto Laboratory test result Normal (applies to non-numeric results) MEDENT ([facility]) Protein, Urine Auto Laboratory test result Samantha l (applies to non-numeric results) MEDENT ([facility]) Ketone, Urine Auto Laboratory test result Normal (applies to non-numeric results) [facility] – [facility]) Urobilinogen, Urine Auto 0.2 mg/dL 0.0-2.0 Normal (applies to non-numeric results) [facility] ([facility]) Nitrite, Urine Auto Laboratory test result Samantha l (applies to non-numeric results) [facility] ([facility]) Bilirubin, Urine Auto Laboratory test result Nor mal (applies to non-numeric results) [facility] ([facility]) Blood, Urine Blood Laboratory test result Normal (applies to non-numeric results) [facility] ([facility]) Leukocyte Esterase, Urine Auto Laboratory test result Normal (applies to non- numeric results) [facility] ([facility]) WBC, Urine Auto 1 /HPF 0-3 Normal (applies to non-numeric results) [facility] ([facility]) Squamous Epithelial Cell Ur AU 0 /HPF 0-6 N ormal (applies to non-numeric results) [facility] ([facility]) Bacteria, Urine Auto Laboratory test result Norm al (applies to non-numeric results) [facility] ([facility]) RBC, Urine Auto 0 /HPF 0-3 Normal (applies to non-numeric results) [facility] ([facility]) Hyaline Cast, Urine Auto 0 /LPF 0-1 Normal (applies to non -numeric results) [facility] ([facility]) ID Date Data Source [id number] 02/01/2021 10:44:00 AM EDT [facility] Name Value Range Interpretation Code Description Data Mary rce(s) Supporting Document(s) SARS-CoV-2 (COVID 19) NEGATIVE - SARS-CoV-2 (COVID19) [facility] This lab was ordered by [facility] a nd reported by [facility]. ID Date Data Source [id number] 01/26/2021 10:24:00 PM EDT [facility] Name Value Range Interpretation Code Description Data Mary rce(s) Supporting Document(s) SARS coronavirus 2 RNA [Presence] in Res piratory specimen by DAWIT with probe detection NEGATIVE [facility] This lab was ordered by [facility] a nd reported by [facility]. ID Date Data Source [id number] 01/26/2021 06:09:00 PM EDT [facility] ([facility]) Name Value Range Interpretation Code Description Data Mary rce(s) Supporting Document(s) Glucose [Mass/volume] in Capillary blood by Glucometer 126 mg/dL 83-110 Above high normal [facility] ([facility]) ID Date Data Source [id number] 01/26/2021 05:53:00 PM EDT [facility] ([facility]) Name Value Range Interpretation Code Description Data Mary rce(s) Supporting Document(s) Ammonia [Mass/volume] in Blood 13 uMOL/L N ormal (applies to non-numeric results) [facility] ([facility]) Lactate [Mass/volume] in Serum or Plasma 1.6 mmol/L 0.4-2.0 Normal (applies to non-numeric results) [facility] ([facility]) Y/N query for Sepsis Lactate Rule: Y ID Date Data Source [id number] 01/26/2021 05:53:00 PM EDT [facility] ([facility]) Name Value Range Interpretation Code Description Data Mary rce(s) Supporting Document(s) Alt/SGPT 26 U/L 12-78 Normal (applies to non-numeric resul ts) [facility] ([facility]) Ast/Sgot 13 U/L 7-37 Normal (applies to non-numeric resul ts) [facility] ([facility]) Alkaline Phosphatase 85 U/L 45-117 Normal (applies to non-num caren results) [facility] ([facility]) Bilirubin,Total 0.6 mg/dL 0.2-1.0 Normal (applies to non-numeric results) [facility] ([facility]) Bilirubin,Direct 0.1 mg/dL 0.0-0.2 Normal (applies to non-numeric results) [facility] ([facility]) Total Protein 7.0 GM/DL 6.4-8.2 Normal (applies to non-numeric re sults) [facility] ([facility]) Albumin 3.3 GM/DL 3.2-5.2 Normal (applies to non-numeric resul ts) [facility] ([facility]) Albumin/Globulin Ratio 0.9 1.2-2.2 Below low normal [facility] ([facility]) ID Date Data Source [id number] 01/26/2021 05:53:00 PM EDT [facility] ([facility]) Name Value Range Interpretation Code Description Data Mary rce(s) Supporting Document(s) Glucose, Fasting 119 mg/dL 70-100 Above high normal [facility]) Blood Urea Nitrogen 20 mg/dL 7-18 Above high normal [facility] ([facility]) Creatinine For GFR 1.45 mg/dL 0.55-1.30 Above high normal [facility] ([facility]) Sodium Level 143 meq/L 136-145 Normal (applies to non-numeric res ults) [facility] ([facility]) Glomerular Filtration Rate 37.1 Below low normal [facility] ([facility]) <content>Units are mL/min/1.73 m2</content>
<content></content>
<content>Chronic Kidney Disease Staging per NKF:</content>
<content></content>
<content>Stage I & II GFR >=60 Normal to Mildly Decreased</content>
<content>Stage III GFR 30- 59 Moderately Decreased</content>
<content>Stage IV GFR 15-29 Severely Decreased</content>
<content>Stage V GFR <15 Very Little GFR Left</content>
<content>ESRD GFR <15 on RN UROLOGY</content>
<content></content> Chloride Level 112 meq/L 98-107 Above high normal [facility] ([facility]) Potassium Serum 3.8 meq/L 3.5-5.1 Normal (applies to non-numeric results) [facility] ([facility]) Carbon Dioxide Level 25 meq/L 21-32 Normal (applies to non-num caren results) [facility] ([facility]) Calcium Level 8.8 mg/dL 8.8-10.2 Normal (applies to non-numeric re sults) [facility] ([facility]) Anion Gap 6 meq/L 8-16 Below low normal [facility] ( [facility]) ID Date Data Source [id number] 01/26/2021 05:53:00 PM EDT [facility]) Name Value Range Interpretation Code Description Data Mary rce(s) Supporting Document(s) Osmolality of Serum or Plasma 296 MOSM/KG 280-301 No rmal (applies to non-numeric results) [facility] ([facility]) Thyrotropin [Units/volume] in Serum or Plasma 1.400 uIU/ML 0. 358-3.740 Normal (applies to non-numeric results) [facility] ([facility]) ID Date Data Source [id number] 01/26/2021 05:53:00 PM EDT [facility] ([facility]) Name Value Range Interpretation Code Description Data Mary rce(s) Supporting Document(s) Red Blood Count 3.73 10 4.00-5.40 Below low normal [facility] ([facility]) White Blood Count 19.8 10 4.0-10.0 Above high normal [facility] ([facility]) A Pathologist review of this differentia l can help in the evaluation of a differential diagnosis. Please order a Pathologist Review (PERISM) if deemed necessary. Results are subject to change if a Pathologist Review is performed. Hemoglobin 11.7 g/dL 12.0-15.5 Below low normal [facility] ( [facility]) Hematocrit 36.6 % 36.0-47.0 Normal (applies to non-numeric resul ts) [facility] ([facility]) Mean Corpuscular HGB Conc 32.0 g/dL 32.0-36.5 Normal (applies to non-numeric results) [facility] ([facility]) Mean Corpuscular Volume 98.1 fl 80.0-96.0 Above high normal [facility] ([facility]) Mean Corpuscular Hemoglobin 31.4 pg 27.0-33.0 Norm al (applies to non-numeric results) [facility] ([facility]) Red Cell Distribution Width 13.4 % 11.5-14.5 Norm al (applies to non-numeric results) [facility] ([facility]) Platelet Count, Automated 315 10 150-450 Normal (applies to non-numeric results) [facility] ([facility]) Nucleated Red Blood Cell % 0.0 % 0-0 Normal (applies to n on-numeric results) [facility] ([facility]) ID Date Data Source [id number] 01/26/2021 05:53:00 PM EDT [facility] ([facility]) Name Value Range Interpretation Code Description Data Mary rce(s) Supporting Document(s) Bands 2 % Normal (applies to non-numeric resul ts) [facility] ([facility]) Neutrophils 85 % 28-66 Above high normal [facility] ([facility]) Lymphocytes 6 % 16-44 Below low normal [facility] ([facility]) Monocytes 7 % 0-5 Above high normal [facility] ([facility]) Platelet Clumps Laboratory test result Normal (a pplies to non-numeric results) [facility] ([facility]) ID Date Data Source [id number] 01/26/2021 05:53:00 PM EDT [facility] ([facility]) Name Value Range Interpretation Code Description Data Mary rce(s) Supporting Document(s) Platelets [#/volume] in Blood by Estimate Laboratory test result Normal (applies to non-numeric results) [facility] ([facility]) ID Date Data Source [id number] 01/26/2021 05:53:00 PM EDT [facility] ([facility]) Name Value Range Interpretation Code Description Data Mary rce(s) Supporting Document(s) Appearance, Urine RFX Laboratory test result Nor mal (applies to non-numeric results) [facility] ([facility]) Color, Urine RFX Laboratory test result Normal ( applies to non-numeric results) [facility] ([facility]) Protein, Urine Auto RFX Laboratory test result Above high normal [facility] ([facility]) Specific [place] Ur Auto RFX 1.003 1.002-1.035 Nor mal (applies to non-numeric results) [facility] ([facility]) PH,Urine RFX 7.0 units 5.0-9.0 Normal (applies to non-numeric res ults) [facility] ([facility]) Urobilinogen, Urine Auto RFX 0.2 mg/dL 0.0-2.0 Nor mal (applies to non-numeric results) [facility] ([facility]) Ketone, Urine Auto RFX Laboratory test result No rmal (applies to non-numeric results) [facility] ([facility]) Glucose, Urine (Ua) Auto RFX Laboratory test result Normal (applies to non- numeric results) [facility] ([facility]) Bilirubin, Urine Auto RFX Laboratory test result Normal (applies to non- numeric results) [facility] ([facility]) Nitrite, Urine Auto RFX Laboratory test result N ormal (applies to non-numeric results) [facility] ([facility]) Blood, Urine Blood RFX Laboratory test result Above high n ormal [facility] ([facility]) Leukocyte Esterase Ur Auto RFX Laboratory test result Abov e high normal [facility] ([facility]) WBC, Urine Auto RFX 4 /HPF 0-3 Above high normal [facility] ([facility]) Bacteria, Urine Auto RFX Laboratory test result Above high normal [facility] ([facility]) RBC, Urine Auto RFX 1 /HPF 0-3 Normal (applies to non-nume paula results) [facility] ([facility]) Hyaline Cast, Urine Auto RFX 0 /LPF 0-1 Normal (appl ies to non-numeric results) [facility] ([facility]) Squam Epithelial Cell Ur Aurfx 0 /HPF 0-6 N ormal (applies to non-numeric results) [facility] ([facility]) ID Date Data Source [id number] 01/26/2021 05:53:00 PM EDT [facility]) Name Value Range Interpretation Code Description Data Mary rce(s) Supporting Document(s) Venous PH 7.350 units 7.330-7.430 Normal (applies to non-numeric res ults) [facility] ([facility]) Venous Partial Pressure O2 51.0 mmHg 30.0-50.0 Above high normal [facility] ([facility]) Venous Partial Pressure Co2 46.8 mmHg 38.0-50.0 Norm al (applies to non-numeric results) [facility] ([facility]) Venous Hco3 25.3 meq/L 23.0-27.0 Normal (applies to non-numeric resu lts) [facility] ([facility]) Venous Total Co2 26.7 meq/L 24.0-28.0 Normal (applies to non-numeric results) [facility] ([facility]) Venous Standard Hco3 23.7 meq/L Normal (applies to non-num caren results) [facility] ([facility]) Venous O2 Saturation 86.5 % 60.0-80.0 Above high normal [facility] ([facility]) Venous Base Excess -0.7 Normal (applies to non-numer ic results) [facility] ([facility]) ID Date Data Source [id number] 01/26/2021 05:53:00 PM EDT [facility] ([facility]) Name Value Range Interpretation Code Description Data Mary rce(s) Supporting Document(s) CPK Creatine Phosphokinase 97 U/L 26-192 Samantha l (applies to non-numeric results) [facility] ([facility]) CK-MB Value Mass 1.7 ng/mL Normal (applies to non-numeric results) [facility] ([facility]) MB/CK Relative Index 1.75 Normal (applies to non-num caren results) [facility] ([facility]) <content>DIAGNOSIS CRITERIA</content>
<content>MMB ng/ml Relative Index (RI)</content>
<content>NON-AMI < or = 5 N/A</content>
<content>MANCUSO ZONE > 5 < or = 4</content>
<content>AMI > 5 > 4</content>
<content></content> Troponin I Laboratory test result Normal (applies to non-n umeric results) [facility] ([facility]) <content>Troponin I Reference Interval f or Siemens [place] LOCI:</content>
<content></content>
<content>99th Percentile= 0.00-0.045 ng/ml</content>
<content></content>
<content>Risk Stratification:</content>
<content><= 0.10 ng/ml Decreased Risk for Adverse Clinical</content>
<content>Events.</content>
<content>0.10-1.50 ng/ml Increased Risk for Adverse Clinical</content>
<content>Events. Evaluation of additional</content>
<content>criterion and/or repeat testing in 2-6</content>
<content>hours is suggested to rule out myocardial</content>
<content>damage.</content>
<content>>= 1.50 ng/ml Indicative of Myocardial Injury.</content>
<content></content> ID Date Data Source [id number] 01/23/2021 09:36:46 PM EDT [facility] Name Value Range Interpretation Code Description Data Mary rce(s) Supporting Document(s) LITHIUM 0.69 mmol/L (0.60-1.50) Laboratory [facility] of [facility] ID Date Data Source [id number] 01/23/2021 12:00:00 AM EDT [facility]CW1 ([facility]) Name Value Range Interpretation Code Description Data Mary rce(s) Supporting Document(s) VENIPUNCTURE VENIPUNCTURE eCW1 ([facility]) ID Date Data Source CBC w/DIFF 01/23/2021 12:00:00 AM EDT [facility]CW1 ([facility]) Name Value Range Interpretation Code Description Data Mary rce(s) Supporting Document(s) 3.86 4.20-6.30 RBC eCW1 ([facility]) 9.4 4.1-10.9 WBC eCW1 ([facility]) 12.0 12.0-18.0 HGB eCW1 ([facility]) 99.5 80.0-97.0 MCV eCW1 ([facility]) 38.4 36.0-51.0 HCT eCW1 ([facility]) 382 140-440 PLT eCW1 ([facility]) 31.3 31.0-36.0 MCHC eCW1 ([facility]) 31.1 26.0-32.0 MCH eCW1 ([facility]) 9.4 7.4-10.4 MPV eCW1 ([facility]) 49.2 36.4-46.3 RDW-SD eCW1 ([facility]) 13.2 11.5-15.5 RDW-CV eCW1 ([facility]) 0.90 0.20-0.90 MONO # eCW1 ([facility]) 2.52 0.60-4.10 LYMPH # eCW1 ([facility]) 0.32 0.00-0.50 EO # eCW1 ([facility]) 5.60 1.60-6.10 NEUT # eCW1 ([facility]) 0.07 0.00-0.10 BASO # eCW1 ([facility]) 26.8 10.0-58.5 LYMPH % eCW1 ([facility]) 59.4 34.0-71.1 NEUT % eCW1 ([facility]) 0.7 0.1-1.2 BASO % eCW1 ([facility]) 9.6 10.0-58.5 MONO % eCW1 ([facility]) 3.4 0.7-7.0 EO % eCW1 ([facility]) 0.10 0.00-0.43 IG% eCW1 ([facility]) 0.01 LOW IG# eCW1 ([facility]) ID Date Data Source [id number],[id number] 01/23/2021 12:00:00 AM EDT eCW1 ([facility]) Name Value Range Interpretation Code Description Data Mary rce(s) Supporting Document(s) 71.3 8.2-83.5 PTH,INTACT [facility]CW1 ([facility]) ID Date Data Source [id number] 01/23/2021 12:00:00 AM EDT eCW1 ([facility]) Name Value Range Interpretation Code Description Data Mary rce(s) Supporting Document(s) 3.7 3.4-5.0 ALBUMIN eCW1 ([facility]) 19 7-18 BUN eCW1 ([facility]) 9.1 8.5-10.1 CALCIUM eCW1 ([facility]) 50.92 >=60.00 GFR NON-AFR.AM eCW1 ([facility]) 61.61 >=60.00 GFR AFR.AM eCW1 ([facility]) 1.1 0.6-1.3 CREATININE eCW1 ([facility]) 106 100-108 CHLORIDE eCW1 ([facility]) 4.5 3.6-5.2 POTASSIUM eCW1 ([facility]) 140 135-145 SODIUM eCW1 ([facility]) 7.7 6.4-8.2 TOTAL PROTEIN eCW1 ([facility]) 0.30 0.20-1.00 T BILIRUBIN [facility] 31.2 21.0-32.0 CO2 eCW1 ([facility]) 104.0 70.0-110.0 GLUCOSE eCW1 ([facility] 96 46-116 ALPI eCW1 ([facility] 16 15-37 AST eCW1 ([facility] 3 5-15 ANION GAP eCW1 ([facility] 28 30-65 ALTI eCW1 ([facility]) ID Date Data Source [id number] 01/01/2021 11:14:00 AM EDT [facility] ([facility]) Name Value Range Interpretation Code Description Data Mary rce(s) Supporting Document(s) Glucose, Fasting 93 mg/dL 70-100 Normal (applies to non-numeric results) [facility] ([facility]) Creatinine For GFR 1.14 mg/dL 0.55-1.30 Normal (applies to non -numeric results) [facility] ([facility]) Blood Urea Nitrogen 19 mg/dL 7-18 Above high normal [facility] ([facility]) Sodium Level 143 meq/L 136-145 Normal (applies to non-numeric res ults) [facility] ([facility]) Potassium Serum 4.8 meq/L 3.5-5.1 Normal (applies to non-numeric results) [facility]) Glomerular Filtration Rate 48.9 Normal (applies to n on-numeric results) [facility] ([facility]) <content>Units are mL/min/1.73 m2</content>
<content></content>
<content>Chronic Kidney Disease Staging per NKF:</content>
<content></content>
<content>Stage I & II GFR >=60 Normal to Mildly Decreased</content>
<content>Stage III GFR 30- 59 Moderately Decreased</content>
<content>Stage IV GFR 15-29 Severely Decreased</content>
<content>Stage V GFR <15 Very Little GFR Left</content>
<content>ESRD GFR <15 on RN UROLOGY</content>
<content></content> Chloride Level 110 meq/L 98-107 Above high normal [facility] ([facility]) Anion Gap 1 meq/L 8-16 Below low normal [facility] ( [facility]) Carbon Dioxide Level 32 meq/L 21-32 Normal (applies to non-num caren results) [facility] ([facility]) Ast/Sgot 14 U/L 7-37 Normal (applies to non-numeric resul ts) [facility] ([facility]) Calcium Level 9.1 mg/dL 8.8-10.2 Normal (applies to non-numeric re sults) [facility] ([facility]) Alt/SGPT 26 U/L 12-78 Normal (applies to non-numeric resul ts) [facility] ([facility]) Bilirubin,Total 0.3 mg/dL 0.2-1.0 Normal (applies to non-numeric results) [facility] ([facility]) Alkaline Phosphatase 74 U/L 45-117 Normal (applies to non-num caren results) [facility] ([facility]) Total Protein 6.7 GM/DL 6.4-8.2 Normal (applies to non-numeric re sults) [facility] ([facility]) Albumin/Globulin Ratio 1.2 1.2-2.2 Normal (applies to non-n umeric results) [facility] ([facility]) Albumin 3.6 GM/DL 3.2-5.2 Normal (applies to non-numeric resul ts) [facility] ([facility]) ID Date Data Source [id number] 01/01/2021 11:14:00 AM EDT [facility]) Name Value Range Interpretation Code Description Data Mary rce(s) Supporting Document(s) Thyroid Stimulating Hormone 2.280 uIU/ML 0.358-3.740 Norm al (applies to non- numeric results) [facility] ([facility]) Free T4 0.75 ng/dL 0.76-1.46 Below low normal [facility] ( [facility]) ID Date Data Source [id number] 01/01/2021 11:14:00 AM EDT [facility] ([facility]) Name Value Range Interpretation Code Description Data Mary rce(s) Supporting Document(s) Calcidiol [Mass/volume] in Serum or Plasma 61.3 ng/mL 30.0- 100.0 Normal (applies to non-numeric results) [facility] ([facility]) Cobalamin (Vitamin B12) [Mass/volume] in Serum or Plasma 459 pg/ mL 247-911 Normal (applies to non-numeric results) [facility] ([facility]) VITAMIN B12 NORMAL RANGE NORMAL 247 - 911 PG/ML INDETERMINATE 211 - 246 PG/ML DEFICIENT LESS THAN 211 PG/ML ID Date Data Source [id number] 01/01/2021 11:14:00 AM EDT [facility] ([facility]) Name Value Range Interpretation Code Description Data Mary rce(s) Supporting Document(s) Iron (Fe) 70 ug/dL 50-170 Normal (applies to non-numeric resul ts) [facility] ([facility]) Total Iron Binding Capacity 354 ug/dL 250-450 Norm al (applies to non-numeric results) [facility] ([facility]) Percent Saturation 19.8 % 13.2-45.0 Normal (applies to non-numer ic results) [facility] ([facility]) ID Date Data Source [id number] 01/01/2021 11:14:00 AM EDT [facility] ([facility]) Name Value Range Interpretation Code Description Data Mary rce(s) Supporting Document(s) Ferritin [Mass/volume] in Serum or Plasma 46 ng/mL 8-252 Normal (applies to non- numeric results) [facility] ([facility]) ID Date Data Source [id number] 01/01/2021 11:14:00 AM EDT [facility] ([facility]) Name Value Range Interpretation Code Description Data Mary rce(s) Supporting Document(s) White Blood Count 8.4 10 4.0-10.0 Normal (applies to non-numeri c results) [facility] ([facility]) Hemoglobin 11.7 g/dL 12.0-15.5 Below low normal [facility] ( [facility]) Red Blood Count 3.81 10 4.00-5.40 Below low normal [facility] ([facility]) Hematocrit 38.0 % 36.0-47.0 Normal (applies to non-numeric resul ts) [facility] ([facility]) Mean Corpuscular Hemoglobin 30.7 pg 27.0-33.0 Norm al (applies to non-numeric results) [facility] ([facility]) Mean Corpuscular Volume 99.7 fl 80.0-96.0 Above high normal [facility] ([facility]) Platelet Count, Automated 344 10 150-450 Normal (applies to non-numeric results) [facility] ([facility]) Mean Corpuscular HGB Conc 30.8 g/dL 32.0-36.5 Below low normal [facility] ([facility]) Red Cell Distribution Width 13.6 % 11.5-14.5 Norm al (applies to non-numeric results) [facility] ([facility]) Neutrophils % 53.8 % 36.0-66.0 Normal (applies to non-numeric re sults) [facility] ([facility]) Lymph % 31.0 % 24.0-44.0 Normal (applies to non-numeric resul ts) [facility] ([facility]) Baso % 1.1 % 0.0-1.0 Above high normal [facility] ([facility]) Angelina % 9.4 % 2.0-8.0 Above high normal [facility] ([facility]) Eos % 4.3 % 0.0-3.0 Above high normal [facility] ([facility]) Nucleated Red Blood Cell % 0.0 % 0-0 Normal (applies to n on-numeric results) [facility] ([facility]) Immature Granulocyte % 0.4 % 0-3.0 Normal (applies to non-n umeric results) [facility] ([facility]) Neutrophils # 4.6 10 1.5-8.5 Normal (applies to non-numeric re sults) [facility] ([facility]) Lymph # 2.6 10 1.5-5.0 Normal (applies to non-numeric resul ts) [facility] ([facility]) Angelina # 0.8 10 0.0-0.8 Normal (applies to non-numeric resul ts) [facility] ([facility]) Eos # 0.4 10 0.0-0.5 Normal (applies to non-numeric resul ts) [facility] ([facility]) Baso # 0.1 10 0.0-0.2 Normal (applies to non-numeric resul ts) [facility] ([facility]) ID Date Data Source [id number] 11/20/2020 03:44:00 PM EDT [facility] ([facility]) Name Value Range Interpretation Code Description Data Mary rce(s) Supporting Document(s) Lonoke [Mass/volume] in Serum or Plasma 0.54 meq/L 0.60-1.20 Below low normal [facility] ([facility]) ID Date Data Source [id number] 09/30/2020 03:53:00 PM EDT [facility] ([facility]) Name Value Range Interpretation Code Description Data Mary rce(s) Supporting Document(s) Magnesium [Mass/volume] in Serum or Plasma 2.9 mg/dL 1.8-2.4 Above high normal [facility] ([facility]) [place]oke [Mass/volume] in Serum or Plasma 0.64 meq/L 0.60-1. 20 Normal (applies to non-numeric results) [facility] ([facility]) ID Date Data Source [id number] 06/28/2020 10:43:00 AM EST [facility] ([facility]) Name Value Range Interpretation Code Description Data Mary rce(s) Supporting Document(s) Cobalamin (Vitamin B12) [Mass/volume] in Serum or Plasma 575 pg/ mL 247-911 Normal (applies to non-numeric results) [facility] ([facility]) VITAMIN B12 NORMAL RANGE NORMAL 247 - 911 PG/ML INDETERMINATE 211 - 246 PG/ML DEFICIENT LESS THAN 211 PG/ML Calcidiol [Mass/volume] in Serum or Plasma 49.4 ng/mL 30.0- 100.0 Normal (applies to non-numeric results) [facility] ([facility]) Ferritin [Mass/volume] in Serum or Plasma 96 ng/mL 8-252 Normal (applies to non- numeric results) [facility] ([facility]) ID Date Data Source [id number] 06/28/2020 10:43:00 AM EST [facility] ([facility]) Name Value Range Interpretation Code Description Data Mary rce(s) Supporting Document(s) Iron (Fe) 101 ug/dL 50-170 Normal (applies to non-numeric resul ts) [facility] ([facility]) Total Iron Binding Capacity 332 ug/dL 250-450 Norm al (applies to non-numeric results) [facility] ([facility]) Percent Saturation 30.4 % 13.2-45.0 Normal (applies to non-numer ic results) [facility] ([facility]) ID Date Data Source [id number] 06/28/2020 10:43:00 AM EST [facility] ([facility]) Name Value Range Interpretation Code Description Data Mary rce(s) Supporting Document(s) Thyroid Stimulating Hormone 0.831 uIU/ML 0.358-3.740 Norm al (applies to non- numeric results) [facility] ([facility]) Free T4 0.93 ng/dL 0.76-1.46 Normal (applies to non-numeric resul ts) [facility] ([facility]) ID Date Data Source [id number] 06/28/2020 10:43:00 AM EST [facility] ([facility]) Name Value Range Interpretation Code Description Data Mary rce(s) Supporting Document(s) White Blood Count 8.5 10 4.0-10.0 Normal (applies to non-numeri c results) [facility] ([facility]) Hemoglobin 11.0 g/dL 12.0-15.5 Below low normal [facility] ( [facility]) Red Blood Count 3.62 10 4.00-5.40 Below low normal [facility] ([facility]) Mean Corpuscular Volume 100.3 fl 80.0-96.0 Above high normal [facility] ([facility]) Hematocrit 36.3 % 36.0-47.0 Normal (applies to non-numeric resul ts) [facility] ([facility]) Mean Corpuscular Hemoglobin 30.4 pg 27.0-33.0 Norm al (applies to non-numeric results) [facility] ([facility]) Mean Corpuscular HGB Conc 30.3 g/dL 32.0-36.5 Below low normal [facility] ([facility]) Red Cell Distribution Width 12.7 % 11.5-14.5 Norm al (applies to non-numeric results) [facility] ([facility]) Platelet Count, Automated 407 10 150-450 Normal (applies to non-numeric results) [facility] ([facility]) Lymph % 28.9 % 24.0-44.0 Normal (applies to non-numeric resul ts) [facility] ([facility]) Neutrophils % 56.4 % 36.0-66.0 Normal (applies to non-numeric re sults) [facility] ([facility]) Angelina % 9.4 % 0.0-5.0 Above high normal [facility] ([facility]) Eos % 4.3 % 0.0-3.0 Above high normal [facility] ([facility]) Baso % 0.8 % 0.0-1.0 Normal (applies to non-numeric resul ts) [facility] ([facility]) Immature Granulocyte % 0.2 % 0-3.0 Normal (applies to non-n umeric results) [facility] ([facility]) Nucleated Red Blood Cell % 0.0 % 0-0 Normal (applies to n on-numeric results) [facility] ([facility]) Lymph # 2.5 10 1.5-5.0 Normal (applies to non-numeric resul ts) [facility] ([facility]) Neutrophils # 4.8 10 1.5-8.5 Normal (applies to non-numeric re sults) [facility] ([facility]) Eos # 0.4 10 0.0-0.5 Normal (applies to non-numeric resul ts) [facility] ([facility]) Angelina # 0.8 10 0.0-0.8 Normal (applies to non-numeric resul ts) [facility] ([facility]) Baso # 0.1 10 0.0-0.2 Normal (applies to non-numeric resul ts) [facility] ([facility]) ID Date Data Source [id number] 06/28/2020 10:43:00 AM EST [facility] ([facility]) Name Value Range Interpretation Code Description Data Mary rce(s) Supporting Document(s) Glucose, Fasting 97 mg/dL 70-100 Normal (applies to non-numeric results) [facility] ([facility]) Blood Urea Nitrogen 19 mg/dL 7-18 Above high normal [facility] ([facility]) Creatinine For GFR 1.25 mg/dL 0.55-1.30 Normal (applies to non -numeric results) [facility] ([facility]) Glomerular Filtration Rate 44.1 Normal (applies to n on-numeric results) [facility] ([facility]) <content>Units are mL/min/1.73 m2</content>
<content></content>
<content>Chronic Kidney Disease Staging per NKF:</content>
<content></content>
<content>Stage I & II GFR >=60 Normal to Mildly Decreased</content>
<content>Stage III GFR 30- 59 Moderately Decreased</content>
<content>Stage IV GFR 15-29 Severely Decreased</content>
<content>Stage V GFR <15 Very Little GFR Left</content>
<content>ESRD GFR <15 on RN UROLOGY</content>
<content></content> Sodium Level 141 meq/L 136-145 Normal (applies to non-numeric res ults) [facility] ([facility]) Chloride Level 106 meq/L 98-107 Normal (applies to non-numeric r esults) [facility] ([facility]) Carbon Dioxide Level 30 meq/L 21-32 Normal (applies to non-num caren results) [facility] ([facility]) Potassium Serum 3.8 meq/L 3.5-5.1 Normal (applies to non-numeric results) [facility] ([facility]) Calcium Level 9.6 mg/dL 8.8-10.2 Normal (applies to non-numeric re sults) [facility] ([facility]) Anion Gap 5 meq/L 8-16 Below low normal [facility] Alkaline Phosphatase 80 U/L 45-117 Normal (applies to non-num caren results) [facility] ([facility]) Alt/SGPT 29 U/L 12-78 Normal (applies to non-numeric resul ts) [facility] ([facility]) Ast/Sgot 14 U/L 7-37 Normal (applies to non-numeric resul ts) [facility] ([facility]) Bilirubin,Total 0.5 mg/dL 0.2-1.0 Normal (applies to non-numeric results) [facility] ([facility]) Total Protein 7.0 GM/DL 6.4-8.2 Normal (applies to non-numeric re sults) [facility] ([facility]) Albumin 3.7 GM/DL 3.2-5.2 Normal (applies to non-numeric resul ts) [facility] ([facility]) Albumin/Globulin Ratio 1.1 1.2-2.2 Below low normal [facility] ([facility]) ID Date Data Source [id number] 06/02/2020 12:00:00 AM EST [facility] Name Value Range Interpretation Code Description Data Mary rce(s) Supporting Document(s) SARS coronavirus 2 RNA [Presence] in Res piratory specimen by DAWIT with probe detection NEGATIVE [facility] This lab was ordered by Ham Montesinos and reported by Seel[facility]. ID Date Data Source [id number] 06/02/2020 12:00:00 AM EST [facility] Name Value Range Interpretation Code Description Data Mary rce(s) Supporting Document(s) Carestart Rapid COVID Antigen Test Negative [facility] This lab was reported by Ham Count includes the [facility] jacey. ID Date Data Source [id number] 05/08/2020 11:00:00 AM EST [facility] ([facility]) Name Value Range Interpretation Code Description Data Mary rce(s) Supporting Document(s) Bacteria identified in Urine by Culture Laboratory test result Normal (applies to non-numeric results) [facility] ([facility]) FULL REPORT IN LAB NOTES ([facility] and [facility] ). NO GROWTH ID Date Data Source [id number] 05/08/2020 11:00:00 AM EST [facility] ([facility]) Name Value Range Interpretation Code Description Data Mary rce(s) Supporting Document(s) Appearance, Urine Laboratory test result Normal (applies to non-numeric results) [facility] ([facility]) Color, Urine Laboratory test result Normal (applies to non -numeric results) [facility] ([facility]) PH,Urine 7.0 units 5.0-9.0 Normal (applies to non-numeric resul ts) [facility] ([facility]) Specific [place] Urine Auto 1.003 1.002-1.035 Norm al (applies to non-numeric results) [facility] ([facility]) Protein, Urine Auto Laboratory test result Samantha l (applies to non-numeric results) [facility] ([facility]) Glucose, Urine (Ua) Auto Laboratory test result Normal (applies to non-numeric results) [facility] ([facility]) Ketone, Urine Auto Laboratory test result Normal (applies to non-numeric results) [facility] ([facility]) Urobilinogen, Urine Auto 0.2 mg/dL 0.0-2.0 Normal (applies to non-numeric results) [facility] ([facility]) Nitrite, Urine Auto Laboratory test result Samantha l (applies to non-numeric results) [facility] ([facility]) Bilirubin, Urine Auto Laboratory test result Nor mal (applies to non-numeric results) [facility] ([facility]) Leukocyte Esterase, Urine Auto Laboratory test result Abov e high normal [facility] ([facility]) Blood, Urine Blood Laboratory test result Normal (applies to non-numeric results) [facility] ([facility]) RBC, Urine Auto 0 /HPF 0-3 Normal (applies to non-numeric results) [facility] ([facility]) WBC, Urine Auto 1 /HPF 0-3 Normal (applies to non-numeric results) [facility] ([facility]) Bacteria, Urine Auto Laboratory test result Norm al (applies to non-numeric results) [facility] ([facility]) Hyaline Cast, Urine Auto 0 /LPF 0-1 Normal (applies to non -numeric results) [facility] ([facility]) Squamous Epithelial Cell Ur AU 0 /HPF 0-6 N ormal (applies to non-numeric results) [facility] ([facility]) ID Date Data Source [id number] 05/07/2020 04:59:00 PM EST [facility] ([facility]) Name Value Range Interpretation Code Description Data Mary rce(s) Supporting Document(s) Thyroid Stimulating Hormone 1.040 uIU/ML 0.358-3.740 Norm al (applies to non- numeric results) [facility] ([facility]) Free T4 1.02 ng/dL 0.76-1.46 Normal (applies to non-numeric resul ts) [facility] ([facility]) ID Date Data Source [id number] 05/07/2020 04:59:00 PM EST [facility] ([facility]) Name Value Range Interpretation Code Description Data Mary rce(s) Supporting Document(s) Folate Laboratory test result Normal (applies to non-n umeric results) [facility] ([facility]) FOLATE NORMAL RANGE NORMAL GREATER THAN 5.4 NG/ML INDETERMINATE 3.4-5.4 NG/ML DEFICIENT LESS THAN 3.4 NG/ML Vitamin B12 Level 671 pg/mL Normal (applies to non-numeri c results) [facility] ([facility]) VITAMIN B12 NORMAL RANGE NORMAL 247 - 911 PG/ML INDETERMINATE 211 - 246 PG/ML DEFICIENT LESS THAN 211 PG/ML ID Date Data Source [id number] 05/07/2020 04:59:00 PM EST [facility] ([facility]) Name Value Range Interpretation Code Description Data Mary rce(s) Supporting Document(s) [place] [Mass/volume] in Serum or Plasma 0.61 meq/L 0.60-1. 20 Normal (applies to non-numeric results) [facility] ([facility]) ID Date Data Source [id number] 05/07/2020 04:59:00 PM EST [facility] ([facility]) Name Value Range Interpretation Code Description Data Mary rce(s) Supporting Document(s) Bacteria identified in Urine by Culture Laboratory test result [facility] ([facility]) ID Date Data Source [id number] 05/02/2020 12:41:00 PM EST [facility] ([facility]) Name Value Range Interpretation Code Description Data Mary rce(s) Supporting Document(s) Ferritin [Mass/volume] in Serum or Plasma 72 ng/mL 8-252 Normal (applies to non- numeric results) [facility] ([facility]) ID Date Data Source [id number] 05/02/2020 12:41:00 PM EST [facility] ([facility]) Name Value Range Interpretation Code Description Data Mary rce(s) Supporting Document(s) Wqnmr-4-Dzrpsqkc % 5.1 % 2.9-4.9 Above high normal [facility] ([facility]) Albumin % 56.7 % 55.8-66.1 Normal (applies to non-numeric resul ts) [facility] ([facility]) Spuho-8-Ipwckpbnt % 12.7 % 7.1-11.8 Above high normal [facility] ([facility]) Kall-3-Aeuiobegs % 7.3 % 4.7-7.2 Above high normal [facility] ([facility]) Hhbt-5-Knrowehpx % 7.2 % 3.2-6.5 Above high normal [facility] ([facility]) Gamma Globulin % 11.0 % 11.1-18.8 Below low normal [facility] ([facility]) Albumin 4.08 GM/DL 3.29-5.55 Normal (applies to non-numeric resul ts) [facility] ([facility]) Rrimx-7-Ijyesmand 0.91 GM/DL 0.42-0.99 Normal (applies to non- numeric results) [facility] ([facility]) Luuxi-9-Pbgzarofm 0.37 GM/DL 0.17-0.41 Normal (applies to non- numeric results) [facility] ([facility]) Yusw-6-Yvuccjvjp 0.53 GM/DL 0.28-0.60 Normal (applies to non-numeric results) [facility] ([facility]) Mvov-3-Waotlyxkq 0.52 GM/DL 0.19-0.55 Normal (applies to non-numeric results) [facility] ([facility]) Gamma Globulins 0.79 GM/DL 0.65-1.58 Normal (applies to non-numeric results) [facility] ([facility]) Total Protein 7.2 GM/DL 6.4-8.2 Normal (applies to non-numeric re sults) [facility] ([facility]) Laboratory test finding (navigational concept) Laboratory test r esult Normal (applies to non-numeric results) [facility]) REV'D BY Efrem LEMOS Spep Interpretation Laboratory test result Samantha l (applies to non-numeric results) [facility] ([facility]) NO M-SPIKE(S)NOTED. ID Date Data Source [id number] 05/02/2020 12:41:00 PM EST [facility] ([facility]) Name Value Range Interpretation Code Description Data Mary rce(s) Supporting Document(s) Laboratory test finding (navigational concept) Laboratory test r esult Normal (applies to non-numeric results) [facility] ([facility]) REV'D BY Efrem LEMOS Laboratory test finding (navigational concept) Laboratory test r esult Normal (applies to non-numeric results) [facility] ([facility]) NO MONOCLONAL BANDS NOTED. ID Date Data Source [id number] 05/02/2020 12:41:00 PM EST [facility] ([facility]) Name Value Range Interpretation Code Description Data Mary rce(s) Supporting Document(s) Iron (Fe) 106 ug/dL 50-170 Normal (applies to non-numeric resul ts) [facility] ([facility]) Percent Saturation 28.2 % 13.2-45.0 Normal (applies to non-numer ic results) [facility] ([facility]) Total Iron Binding Capacity 376 ug/dL 250-450 Norm al (applies to non-numeric results) [facility] ([facility]) ID Date Data Source [id number] 05/02/2020 12:41:00 PM EST [facility] ([facility]) Name Value Range Interpretation Code Description Data Mary rce(s) Supporting Document(s) Lactate dehydrogenase [Enzymatic activit y/volume] in Serum or Plasma by Lactate to pyruvate reaction 210 U/L 84-246 Normal (applies to non-numeric re sults) [facility] ([facility]) ID Date Data Source [id number] 05/02/2020 12:41:00 PM EST [facility] ([facility]) Name Value Range Interpretation Code Description Data Mary rce(s) Supporting Document(s) Glucose, Fasting 75 mg/dL 70-100 Normal (applies to non-numeric results) [facility] ([facility]) Blood Urea Nitrogen 14 mg/dL 7-18 Normal (applies to non-nume paula results) [facility] ([facility]) Creatinine For GFR 1.11 mg/dL 0.55-1.30 Normal (applies to non -numeric results) [facility] [facility]) Glomerular Filtration Rate 50.6 Normal (applies to n on-numeric results) [facility] ([facility]) <content>Units are mL/min/1.73 m2</content>
<content></content>
<content>Chronic Kidney Disease Staging per NKF:</content>
<content></content>
<content>Stage I & II GFR >=60 Normal to Mildly Decreased</content>
<content>Stage III GFR 30-59 Moderately Decreased</content>
<content>Stage IV GFR 15-29 Severely Decreased</content>
<content>Stage V GFR <15 Very Little GFR Left</content>
<content>ESRD GFR <15 on RN UROLOGY</content>
<content></content> Sodium Level 142 meq/L 136-145 Normal (applies to non-numeric res ults) [facility] ([facility]) Potassium Serum 3.9 meq/L 3.5-5.1 Normal (applies to non-numeric results) [facility] ([facility]) Chloride Level 109 meq/L 98-107 Above high normal [facility] ([facility]) Carbon Dioxide Level 31 meq/L 21-32 Normal (applies to non-num caren results) [facility] ([facility]) Anion Gap 2 meq/L 8-16 Below low normal [facility] ( [facility]) Ast/Sgot 14 U/L 7-37 Normal (applies to non-numeric resul ts) [facility]) Calcium Level 9.5 mg/dL 8.8-10.2 Normal (applies to non-numeric re sults) [facility] ([facility]) Alt/SGPT 29 U/L 12-78 Normal (applies to non-numeric resul ts) [facility] ([facility]) Alkaline Phosphatase 86 U/L 45-117 Normal (applies to non-num caren results) [facility] ([facility]) Bilirubin,Total 0.3 mg/dL 0.2-1.0 Normal (applies to non-numeric results) [facility] ([facility]) Albumin 3.7 GM/DL 3.2-5.2 Normal (applies to non-numeric resul ts) [facility] ([facility]) Total Protein 7.2 GM/DL 6.4-8.2 Normal (applies to non-numeric re sults) [facility] ([facility]) Albumin/Globulin Ratio 1.1 1.2-2.2 Below low normal [facility] ([facility]) ID Date Data Source [id number] 05/02/2020 12:41:00 PM EST [facility] ([facility]) Name Value Range Interpretation Code Description Data Mary rce(s) Supporting Document(s) Haptoglobin [Mass/volume] in Serum or Plasma 194 mg/dL 42- 346 Normal (applies to non-numeric results) [facility] ([facility]) Performed at: RN - [facility] [place] [id number] [employer] Account Manager: Geovanna Stroud MD, Phone: [phone] ID Date Data Source [id number] 05/02/2020 12:41:00 PM EST [facility] ([facility]) Name Value Range Interpretation Code Description Data Mary rce(s) Supporting Document(s) Wero Result Calc Laboratory test result Normal (a pplies to non-numeric results) [facility] ([facility]) ID Date Data Source [id number] 05/02/2020 12:41:00 PM EST [facility] ([facility]) Name Value Range Interpretation Code Description Data Mary rce(s) Supporting Document(s) Reticulocyte % 1.2 % 0.5-1.5 Normal (applies to non-numeric r esults) [facility] ([facility]) Reticulocyte # 46.5 10 17-77 Normal (applies to non-numeric r esults) [facility] ([facility]) Retic Hemoglobin Equivalent 35.5 pg 24-36 Norm al (applies to non-numeric results) [facility] ([facility]) ID Date Data Source [id number] 05/02/2020 12:41:00 PM EST [facility] ([facility]) Name Value Range Interpretation Code Description Data Mary rce(s) Supporting Document(s) White Blood Count 9.5 10 4.0-10.0 Normal (applies to non-numeri c results) [facility] ([facility]) Hemoglobin 12.3 g/dL 12.0-15.5 Normal (applies to non-numeric resul ts) [facility] ([facility]) Red Blood Count 3.95 10 4.00-5.40 Below low normal [facility] ([facility]) Hematocrit 39.3 % 36.0-47.0 Normal (applies to non-numeric resul ts) [facility] ([facility]) Mean Corpuscular Volume 99.5 fl 80.0-96.0 Above high normal [facility] ([facility]) Mean Corpuscular Hemoglobin 31.1 pg 27.0-33.0 Norm al (applies to non-numeric results) [facility] ([facility]) Mean Corpuscular HGB Conc 31.3 g/dL 32.0-36.5 Below low normal [facility] ([facility]) Red Cell Distribution Width 13.1 % 11.5-14.5 Norm al (applies to non-numeric results) [facility] ([facility]) Platelet Count, Automated 434 10 150-450 Normal (applies to non-numeric results) [facility] ([facility]) Neutrophils % 59.8 % 36.0-66.0 Normal (applies to non-numeric re sults) [facility] ([facility]) Lymph % 25.2 % 24.0-44.0 Normal (applies to non-numeric resul ts) [facility] ([facility]) Angelina % 10.0 % 0.0-5.0 Above high normal [facility] ([facility]) Eos % 3.7 % 0.0-3.0 Above high normal [facility] ([facility]) Immature Granulocyte % 0.3 % 0-3.0 Normal (applies to non-n umeric results) [facility] ([facility]) Baso % 1.0 % 0.0-1.0 Normal (applies to non-numeric resul ts) [facility] ([facility]) Neutrophils # 5.7 10 1.5-8.5 Normal (applies to non-numeric re sults) [facility] ([facility]) Nucleated Red Blood Cell % 0.0 % 0-0 Normal (applies to n on-numeric results) [facility] ([facility]) Lymph # 2.4 10 1.5-5.0 Normal (applies to non-numeric resul ts) [facility] ([facility]) Angelina # 1.0 10 0.0-0.8 Above high normal [facility] ([facility]) Baso # 0.1 10 0.0-0.2 Normal (applies to non-numeric resul ts) [facility] ([facility]) Eos # 0.4 10 0.0-0.5 Normal (applies to non-numeric resul ts) [facility] ([facility]) ID Date Data Source [id number] 04/02/2020 12:00:00 AM EST [facility] Temitope Contreras DO Patient Name: DAYAMI [id number] Date of : [address] Date of Exam: 04/02/2020KIT Montesinos [id number]#: Fax: [phone] EXAM: HIP LEFT UNILATERAL (COMPLETE) [...] rce(s) Supporting Document(s) ID Date Data Source [id number] 02/27/2020 09:04:00 AM EDT [facility] ([facility]) Name Value Range Interpretation Code Description Data Mary rce(s) Supporting Document(s) Natriuretic peptide.B prohormone N-Terminal [Mass/volu me] in Serum or Plasma 140 pg/mL Normal (applies to non-numeric results) [facility] ([facility]) FAX TO [phone] FAX TO [phone] Magnesium [Mass/volume] in Serum or Plasma 2.9 mg/dL 1.8-2.4 Above high normal [facility] ([facility]) FAX TO [phone] FAX TO [phone] Thyrotropin [Units/volume] in Serum or Plasma 1.080 uIU/ML 0. 358-3.740 Normal (applies to non-numeric results) [facility] ([facility]) FAX TO [phone] FAX TO [phone] ID Date Data Source [id number] 02/27/2020 09:04:00 AM EDT [facility] ([facility]) Name Value Range Interpretation Code Description Data Mary rce(s) Supporting Document(s) Glucose, Fasting 86 mg/dL 70-100 Normal (applies to non-numeric results) [facility] ([facility]) Blood Urea Nitrogen 15 mg/dL 7-18 Normal (applies to non-nume paula results) [facility]) Sodium Level 144 meq/L 136-145 Normal (applies to non-numeric res ults) [facility] ([facility]) Glomerular Filtration Rate 54.0 Normal (applies to n on-numeric results) [facility] ([facility]) <content>Units are mL/min/1.73 m2</content>
<content></content>
<content>Chronic Kidney Disease Staging per NKF:</content>
<content></content>
<content>Stage I & II GFR >=60 Normal to Mildly Decreased</content>
<content>Stage III GFR 30- 59 Moderately Decreased</content>
<content>Stage IV GFR 15-29 Severely Decreased</content>
<content>Stage V GFR <15 Very Little GFR Left</content>
<content>ESRD GFR <15 on RN UROLOGY</content>
<content></content> Creatinine For GFR 1.05 mg/dL 0.55-1.30 Normal (applies to non -numeric results) [facility] ([facility]) Chloride Level 109 meq/L 98-107 Above high normal [facility] ([facility]) Potassium Serum 4.6 meq/L 3.5-5.1 Normal (applies to non-numeric results) [facility] ([facility]) Carbon Dioxide Level 31 meq/L 21-32 Normal (applies to non-num caren results) [facility] ([facility]) Anion Gap 4 meq/L 8-16 Below low normal [facility] ( [facility]) Calcium Level 8.9 mg/dL 8.8-10.2 Normal (applies to non-numeric re sults) [facility] ([facility]) Alt/SGPT 24 U/L 12-78 Normal (applies to non-numeric resul ts) [facility] ([facility]) Ast/Sgot 15 U/L 7-37 Normal (applies to non-numeric resul ts) [facility]) Alkaline Phosphatase 82 U/L 45-117 Normal (applies to non-num caren results) [facility] ([facility]) Total Protein 6.8 GM/DL 6.4-8.2 Normal (applies to non-numeric re sults) [facility] ([facility]) Bilirubin,Total 0.3 mg/dL 0.2-1.0 Normal (applies to non-numeric results) [facility] ([facility]) Albumin/Globulin Ratio 1.1 1.2-2.2 Below low normal [facility] ([facility]) Albumin 3.5 GM/DL 3.2-5.2 Normal (applies to non-numeric resul ts) [facility] ([facility]) ID Date Data Source [id number] 02/27/2020 09:04:00 AM EDT [facility] ([facility]) Name Value Range Interpretation Code Description Data Mary rce(s) Supporting Document(s) Red Blood Count 3.48 10 4.00-5.40 Below low normal [facility] ([facility]) White Blood Count 8.8 10 4.0-10.0 Normal (applies to non-numeri c results) [facility] ([facility]) Mean Corpuscular Volume 100.3 fl 80.0-96.0 Above high normal [facility] ([facility]) Hematocrit 34.9 % 36.0-47.0 Below low normal [facility] ( [facility]) Hemoglobin 10.6 g/dL 12.0-15.5 Below low normal [facility] ( [facility]) Mean Corpuscular Hemoglobin 30.5 pg 27.0-33.0 Norm al (applies to non-numeric results) [facility] ([facility]) Mean Corpuscular HGB Conc 30.4 g/dL 32.0-36.5 Below low normal [facility] ([facility]) Red Cell Distribution Width 13.5 % 11.5-14.5 Norm al (applies to non-numeric results) [facility] ([facility]) Platelet Count, Automated 357 10 150-450 Normal (applies to non-numeric results) [facility] ([facility]) Lymph % 28.9 % 24.0-44.0 Normal (applies to non-numeric resul ts) [facility] ([facility]) Neutrophils % 56.1 % 36.0-66.0 Normal (applies to non-numeric re sults) [facility] ([facility]) Baso % 1.1 % 0.0-1.0 Above high normal [facility] ([facility]) Eos % 2.8 % 0.0-3.0 Normal (applies to non-numeric resul ts) [facility] ([facility]) Angelina % 10.9 % 0.0-5.0 Above high normal [facility] ([facility]) Immature Granulocyte % 0.2 % 0-3.0 Normal (applies to non-n umeric results) [facility] ([facility]) Nucleated Red Blood Cell % 0.0 % 0-0 Normal (applies to n on-numeric results) [facility] ([facility]) Neutrophils # 4.9 10 1.5-8.5 Normal (applies to non-numeric re sults) [facility] ([facility]) Angelina # 1.0 10 0.0-0.8 Above high normal [facility] ([facility]) Lymph # 2.5 10 1.5-5.0 Normal (applies to non-numeric resul ts) [facility] ([facility]) Eos # 0.3 10 0.0-0.5 Normal (applies to non-numeric resul ts) [facility] ([facility]) Baso # 0.1 10 0.0-0.2 Normal (applies to non-numeric resul ts) [facility] ([facility]) Procedure Social History Code Duration Value Status Description Data Source(s ) Smoking 02/24/2021 12:00:00 AM EDT Patient has never smoked co mpleted Patient has never smoked [facility] ([facility]) Smoking 01/23/2021 12:00:00 AM EDT Never Smoker completed Never S mihaela [email or web address] ([facility]) Smoking 01/23/2021 12:00:00 AM EDT Never Smoker completed Never S mihaela [email or web address] ([facility]) Vital Signs ID Date Data Source UNK Name Value Range Interpretation Code Description Data Source(s) [place] body weight 100 [lb_av] 100 [lb_av] [facility] ([facility]) Oxygen saturation in Arterial blood by Pulse oximetry 96 % 96 % [facility]) Systolic blood pressure 126 mm[Hg] 126 mm[Hg] M [facility] ([facility]) Diastolic blood pressure 76 mm[Hg] 76 mm[Hg] [facility]) Body height 59.6 [in_i] 59.6 [in_i] [facility] ([facility]) 4'11.60" Body weight 154.00 [lb_av] 154.00 [lb_av] [facility] ([facility]) Body mass index (BMI) [Ratio] 30.5 kg/m2 30.5 k g/m2 [facility] ([facility]) Heart rate 67 /min 67 /min [facility] ([facility]) Respiratory rate 20 /min 20 /min [facility] ( [facility]) Body temperature 98.5 [degF] 98.5 [degF] [facility] ([facility]) [place] body weight 110 [lb_av] 110 [lb_av] [facility] ([facility]) Body weight 70.903 kg 70.903 kg [facility] ([facility]) Body temperature 98.3 [degF] 98.3 [degF] [facility] ([facility]) Body height 62 [in_i] 62 [in_i] [facility] ([facility]) 5'2" Body weight 156.31 [lb_av] 156.31 [lb_av] [facility] ([facility]) Body mass index (BMI) [Ratio] 28.6 kg/m2 28.6 k g/m2 [facility] ([facility]) Body surface area Derived from formula 1.72 m2 1.72 m2 [facility] ([facility]) Systolic blood pressure 152 mm[Hg] 152 mm[Hg] M [facility] ([facility]) Diastolic blood pressure 74 mm[Hg] 74 mm[Hg] [facility] ([facility], ) Diastolic blood pressure 70 mm[Hg] 70 mm[Hg] [facility] ([facility]) Body height 59.6 [in_i] 59.6 [in_i] [facility] ([facility]) " Body weight 156.38 [lb_av] 156.38 [lb_av] [facility] ([facility]) Systolic blood pressure 120 mm[Hg] 120 mm[Hg] M [facility] ([facility]) Body mass index (BMI) [Ratio] 30.9 kg/m2 30.9 k g/m2 [facility] ([facility]) Heart rate 99 /min 99 /min [facility] ([facility]) Respiratory rate 12 /min 12 /min [facility] ( [facility]) Body temperature 98.0 [degF] 98.0 [degF] [facility] ([facility]) Oxygen saturation in Arterial blood by Pulse oximetry 99 % 99 % [facility] ([facility]) [place] body weight 100 [lb_av] 100 [lb_av] [facility] ([facility]) Body weight 156.25 [lb_av] 156.25 [lb_av] [facility] ([facility]) Body mass index (BMI) [Ratio] 30.9 kg/m2 30.9 k g/m2 [facility] ([facility]) Heart rate 99 /min 99 /min [facility] ([facility]) Respiratory rate 18 /min 18 /min [facility] ( [facility]) Body temperature 98.6 [degF] 98.6 [degF] [facility] ([facility]) Oxygen saturation in Arterial blood by Pulse oximetry 96 % 96 % [facility] ([facility]) Systolic blood pressure 128 mm[Hg] 128 mm[Hg] M [facility] ([facility]) Diastolic blood pressure 72 mm[Hg] 72 mm[Hg] [facility] ([facility]) Body height 59.6 [in_i] 59.6 [in_i] [facility] ([facility]) " [place] body weight 100 [lb_av] 100 [lb_av] [facility] ([facility]) Body weight 155.0 [lb_av] 155.0 [lb_av] eCW1 ([facility]) Body height 61.5 [in_i] 61.5 [in_i] eCW1 ([facility]) Body mass index (BMI) [Ratio] 28.81 kg/m2 28.81 kg/m2 eCW1 ([facility]) Oxygen saturation in Arterial blood by Pulse oximetry 99 % 99 % eCW1 ([facility]) Heart rate 76 /min 76 /min eCW1 ([facility]) Body temperature 99.1 [degF] 99.1 [degF] [facility] ([facility]) Systolic blood pressure 132 mm[Hg] 132 mm[Hg] M [facility] ([facility]) Diastolic blood pressure 68 mm[Hg] 68 mm[Hg] [facility] ([facility]) Body height 59.6 [in_i] 59.6 [in_i] [facility] ([facility]) 4'11.60" Body weight 154.12 [lb_av] 154.12 [lb_av] [facility] ([facility]) Body mass index (BMI) [Ratio] 30.5 kg/m2 30.5 k g/m2 [facility] ([facility]) Heart rate 78 /min 78 /min [facility] ([facility]) Respiratory rate 18 /min 18 /min [facility] ( [facility]) Oxygen saturation in Arterial blood by Pulse oximetry 97 % 97 % [facility] ([facility]) [place] body weight 100 [lb_av] 100 [lb_av] [facility] ([facility]) Body weight 150.38 [lb_av] 150.38 [lb_av] [facility] ([facility]) Body mass index (BMI) [Ratio] 29.8 kg/m2 29.8 k g/m2 [facility] ([facility]) Oxygen saturation in Arterial blood by Pulse oximetry 97 % 97 % [facility] ([facility]) [place] body weight 100 [lb_av] 100 [lb_av] [facility] ([facility]) Systolic blood pressure 148 mm[Hg] 148 mm[Hg] M [facility] ([facility]) Diastolic blood pressure 80 mm[Hg] 80 mm[Hg] [facility] ([facility]) Body height 59.6 [in_i] 59.6 [in_i] [facility] ([facility]) 4'11.60" Heart rate 81 /min 81 /min [facility] ([facility]) Body temperature 98.5 [degF] 98.5 [degF] [facility]) Systolic blood pressure 125 mm[Hg] 125 mm[Hg] [facility]) Diastolic blood pressure 72 mm[Hg] 72 mm[Hg] [facility] ([facility], [facility]) Heart rate 84 /min 84 /min [facility] ([facility], [facility]) Respiratory rate 16 /min 16 /min [facility] ( [facility], [facility]) Oxygen saturation in Arterial blood by Pulse oximetry 99 % 99 % [facility], [facility]) Body temperature 98.4 [degF] 98.4 [degF] [facility] ([facility], [facility]) Body weight 150.00 [lb_av] 150.00 [lb_av] [facility] T ([facility], [facility]) Body height 61 [in_i] 61 [in_i] [facility]) 5'1" Body mass index (BMI) [Ratio] 28.3 kg/m2 28.3 k g/m2 [facility] ([facility], [facility]) Systolic blood pressure 132 mm[Hg] 132 mm[Hg] M [facility] ([facility]) Diastolic blood pressure 74 mm[Hg] 74 mm[Hg] [facility]) [place] body weight 100 [lb_av] 100 [lb_av] [facility] ([facility]) Body height 59.6 [in_i] 59.6 [in_i] [facility] ([facility]) " Body weight 150.50 [lb_av] 150.50 [lb_av] [facility] T ([facility]) Body mass index (BMI) [Ratio] 29.8 kg/m2 29.8 k g/m2 [facility] ([facility]) Heart rate 90 /min 90 /min [facility] ([facility]) Respiratory rate 18 /min 18 /min [facility] ( [facility]) Body temperature 98.4 [degF] 98.4 [degF] [facility] ([facility]) Oxygen saturation in Arterial blood by Pulse oximetry 98 % 98 % [facility] ([facility]) Heart rate 84 /min 84 /min [facility] ([facility]) Body mass index (BMI) [Ratio] 28.9 kg/m2 28.9 k g/m2 [facility] ([facility]) Systolic blood pressure 122 mm[Hg] 122 mm[Hg] M ROSA ([facility]) Body height 59.6 [in_i] 59.6 [in_i] [facility] ([facility]) " Diastolic blood pressure 82 mm[Hg] 82 mm[Hg] [facility] ([facility]) Respiratory rate 20 /min 20 /min [facility] ( [facility]) Body temperature 97.3 [degF] 97.3 [degF] [facility] ([facility]) Oxygen saturation in Arterial blood by Pulse oximetry 99 % 99 % MEDENT ([facility]) Body weight 146.00 [lb_av] 146.00 [lb_av] MEDEN T ([facility]) [place] body weight 100 [lb_av] 100 [lb_av] MEDEN T ([facility]) Systolic blood pressure 140 mm[Hg] 140 mm[Hg] [facility] Diastolic blood pressure 74 mm[Hg] 74 mm[Hg] MEDENT ([facility]) [place] body weight 100 [lb_av] 100 [lb_av] MEDEN T ([facility]) Body height 59.6 [in_i] 59.6 [in_i] MEDENT ([facility]) " Body weight 150.38 [lb_av] 150.38 [lb_av] MEDEN T ([facility]) Body mass index (BMI) [Ratio] 29.8 kg/m2 29.8 k g/m2 MEDENT ([facility]) Heart rate 103 /min 103 /min MEDENT ([facility]) Respiratory rate 14 /min 14 /min MEDENT ( [facility]) Body temperature 98.3 [degF] 98.3 [degF] MEDENT ([facility]) Oxygen saturation in Arterial blood by Pulse oximetry 97 % 97 % MEDENT ([facility]) Body mass index (BMI) [Ratio] 30.3 kg/m2 30.3 k g/m2 MEDENT ([facility]) Heart rate 96 /min 96 /min MEDENT ([facility]) Oxygen saturation in Arterial blood by Pulse oximetry 99 % 99 % MEDENT ([facility]) Systolic blood pressure 144 mm[Hg] 144 mm[Hg] M EDENT ([facility]) Diastolic blood pressure 68 mm[Hg] 68 mm[Hg] MEDENT ([facility]) Body height 59.6 [in_i] 59.6 [in_i] MEDENT ([facility]) " Body weight 153.00 [lb_av] 153.00 [lb_av] MEDEN T ([facility]) Respiratory rate 18 /min 18 /min MEDENT ( [facility]) Body temperature 98.3 [degF] 98.3 [degF] MEDENT ([facility]) [place] body weight 100 [lb_av] 100 [lb_av] MEDEN T ([facility]) Systolic blood pressure 124 mm[Hg] 124 mm[Hg] M EDENT ([facility]) Body height 59.6 [in_i] 59.6 [in_i] MEDENT ([facility]) " Diastolic blood pressure 72 mm[Hg] 72 mm[Hg] MEDENT ([facility]) Heart rate 88 /min 88 /min MEDENT ([facility]) Respiratory rate 18 /min 18 /min MEDENT ( [facility]) Oxygen saturation in Arterial blood by Pulse oximetry 97 % 97 % MEDENT ([facility]) [place] body weight 100 [lb_av] 100 [lb_av] MEDEN T ([facility]) Body temperature 98.3 [degF] 98.3 [degF] MEDENT ([facility]) Systolic blood pressure 128 mm[Hg] 128 mm[Hg] M EDENT ([facility]) Diastolic blood pressure 80 mm[Hg] 80 mm[Hg] MED[facility] ([facility]) Body height 59.6 [in_i] 59.6 [in_i] MEDENT ([facility]) 4'11.60" [place] body weight 100 [lb_av] 100 [lb_av] MEDEN T ([facility]) Body weight 150.50 [lb_av] 150.50 [lb_av] MEDEN T ([facility]) Body mass index (BMI) [Ratio] 29.8 kg/m2 29.8 k g/m2 MEDENT ([facility]) Heart rate 89 /min 89 /min MEDENT ([facility]) Respiratory rate 16 /min 16 /min MEDENT ( [facility]) Body temperature 97.6 [degF] 97.6 [degF] MEDENT ([facility]) Oxygen saturation in Arterial blood by Pulse oximetry 96 % 96 % [facility] Patient Treatment Plan of Care Planned Activity Planned Date Details Description Data Source (s) Amphetamine aspartate 5 MG / Amphetamine Sulfate 5 MG / Dextroamphetamine saccharate 5 MG / Dextroamphetamine Sulfate 5 MG Oral Tablet [Adderall] 10/24/2020 12:00:00 AM EDT eCW1 ([facility] [place]) Amphetamine aspartate 5 MG / Amphetamine Sulfate 5 MG / Dextroamphetamine saccharate 5 MG / Dextroamphetamine Sulfate 5 MG Oral Tablet [Adderall] 07/23/2020 12:00:00 AM EST eCW1 ([facility] [place])
--- NOTE | 2021-04-02 10:44 | REP ---
INDICATION: fall. COMPARISON: 02/23/2017 TECHNIQUE: AP and lateral FINDINGS: Advanced thoracic kyphosis has increased from the prior exam. The bones are demineralized throughout. There is disc space narrowing and anterior lipping at every level. There is marginal osteophytosis at every level bilaterally status quo. The upper thoracic vertebral bodies cannot be assessed. IMPRESSION: Findings and limitations as described above. Consider CT for further evaluation. <Electronically signed by Moreno Tolentino > 04/02/21 1424
[2021-04-02 10:45] LABS: BASO % 0.7 % (0.0-1.0); EOS % 1.7 % (0.0-3.0); HEMATOCRIT 36.8 % (36.0-47.0); HEMOGLOBIN 11.6 g/dl (12.0-15.5); MEAN CORPUSCULAR HEMOGLOBIN 30.6 pg (27.0-33.0); MEAN CORPUSCULAR HGB CONC 31.5 g/dl (32.0-36.5); MEAN CORPUSCULAR VOLUME 97.1 fl (80.0-96.0); NEUTROPHILS % 65.2 % (36.0-66.0); PLATELET COUNT, AUTOMATED 408 10^3/uL (150-450); RED BLOOD COUNT 3.79 10^6/uL (4.00-5.40); WHITE BLOOD COUNT 10.7 10^3/uL (4.0-10.0)
[2021-04-02 10:46] LABS: BASO # 0.1 10^3/uL (0.0-0.2); EOS # 0.2 10^3/uL (0.0-0.5); LYMPH # 2.6 10^3/uL (1.5-5.0); MONO # 0.9 10^3/uL (0.0-0.8)
--- NOTE | 2021-04-02 10:46 | REP ---
INDICATION: fall. COMPARISON: Left hip 03/06/2021 TECHNIQUE: AP pelvis two views right hip FINDINGS: There is mild bilateral slightly asymmetric hip joint space narrowing without buttressing or prominent marginal osteophytosis. There is no acute fracture, dislocation, or subluxation. IMPRESSION: There is no evidence of an acute osseous abnormality. <Electronically signed by Moreno Tolentino > 04/02/21 [id number]
[2021-04-02 11:12] LABS: ALBUMIN 3.8 GM/DL (3.2-5.2); ALT/SGPT 29 U/L (12-78); BILIRUBIN,DIRECT < 0.1 MG/DL (0.0-0.2); BILIRUBIN,TOTAL 0.3 MG/DL (0.2-1.0); BLOOD UREA NITROGEN 16 MG/DL (7-18); CALCIUM LEVEL 9.8 MG/DL (8.8-10.2); CARBON DIOXIDE LEVEL 29 MEQ/L (21-32); CHLORIDE LEVEL 111 MEQ/L (98-107); CK-MB VALUE MASS 3.1 NG/ML (<3.6); CPK CREATINE PHOSPHOKINASE 157 U/L (26-192); GLOMERULAR FILTRATION RATE 46.1 (>39); GLUCOSE, FASTING 109 MG/DL (70-100); LITHIUM LEVEL 0.47 MEQ/L (0.60-1.20); MB/CK RELATIVE INDEX 1.97 (< OR =4); POTASSIUM SERUM 4.1 MEQ/L (3.5-5.1); SODIUM LEVEL 143 MEQ/L (136-145); TOTAL PROTEIN 7.3 GM/DL (6.4-8.2); TROPONIN I < 0.02 NG/ML (< 0.10)
[2021-04-02 12:14] LABS: APPEARANCE, URINE CLEAR (CLEAR); BACTERIA, URINE AUTO 1+ (NEGATIVE); BILIRUBIN, URINE AUTO NEGATIVE (NEGATIVE); BLOOD, URINE BLOOD NEGATIVE (NEGATIVE); COLOR, URINE STRAW (YELLOW); GLUCOSE, URINE (UA) AUTO NEGATIVE (NEGATIVE); KETONE, URINE AUTO NEGATIVE (NEGATIVE); LEUKOCYTE ESTERASE, URINE AUTO NEGATIVE (NEGATIVE); NITRITE, URINE AUTO NEGATIVE (NEGATIVE); PROTEIN, URINE AUTO NEGATIVE (NEGATIVE); RBC, URINE AUTO 0 /HPF (0-3); SPECIFIC GRAVITY URINE AUTO 1.004 (1.002-1.035); SQUAMOUS EPITHELIAL CELL UR AU 0 /HPF (0-6); UROBILINOGEN, URINE AUTO 0.2 mg/dL (0.0-2.0); WBC, URINE AUTO 1 /HPF (0-3)
--- NOTE | 2021-04-02 12:23 | REP ---
INDICATION: fall. COMPARISON: None. TECHNIQUE: 4 x 4 mm increments using helical technique and reconstructed in both sagittal and coronal planes. FINDINGS: There is an exaggerated thoracic kyphosis. Vertebral body height and alignment is within normal limits. Chronic discogenic changes and concomitant endplate changes are noted. There is no acute fracture, dislocation, or subluxation. There is no abnormal paraspinal soft tissue mass. The imaged lung fritz shows an asymmetric possibly spiculated 1.6 cm sized right upper lobe nodule. IMPRESSION: 1. There is no evidence of an acute osseous abnormality. 2. Right lung nodule as described above. According to the revised Fleischner society criteria standard contrast-enhanced CT examination of the chest is recommended for complete evaluation. <Electronically signed by Moreno Tolentino > 04/02/21 [id number]
[2021-04-02] MEDS ORDERED: BACITAB PO (15:41)
[2021-04-02] MEDS ORDERED: MAGN400C PO (15:41)
[2021-04-02] MEDS ORDERED: VIIB40TA PO (15:41)
[2021-04-02] MEDS ORDERED: SUCR1TAB56 PO (15:41)
[2021-04-02] MEDS ORDERED: PANT-23 PO (15:41)
[2021-04-02] MEDS ORDERED: HOME MED LIST COMPLETE! XX SCH (15:45)
--- NOTE | 2021-04-02 15:47 | HPEPDOC ---
[facility] Medical History & Physical Date of Admission Apr 02, 2021 Date of Service: Apr 02, 2021 Primary Care Physician: Kirk Rodrigues. Attending Physician: JOSETTE MERCADO DO History and Physical CHIEF COMPLAINT: Weakness with multiple falls HISTORY OF PRESENT ILLNESS: Patient is a 80-year-old female who presented to the emergency department after multiple falls. Patient states that she was recently admitted in the hospital and went to the acute rehab unit. Patient has been feeling weak over the past few days. Patient states that she went to her primary care provider's office on Wednesday and was diagnosed with an urinary tract infection which she started antibiotics for on Wednesday. Patient has received 3 doses of the antibiotics at this time. Patient states that she has been trying to walk around her house but is feeling very weak. Patient is fallen multiple times. Patient lives in a two-story home by herself and states that she has not been able to go up into the second floor where her bedroom is as she is afraid to climb up the stairs. Patient is sleeping on the couch for the last few nights due to this. Patient states that she was not been able to get comfortable last night and when she stood up from the couch she ended up falling down. Patient states that she her back has been hurting her. Patient also states that she had a headache however, this is since resolved. Patient hit her life alert button and EMS arrived and brought her to the hospital. In the hospital, she does complain of some mild back pain however she is otherwise feel ing well today. Patient is nervous about going home as she has no one to help her. Patient states that she realizes that she may need to sell her home. PAST MEDICAL HISTORY: 1. Breast cancer status post lumpectomy. 2. Hypothyroidism. 3. Hypertension. 4. Bipolar PAST SURGICAL HISTORY: 1. Left breast lumpectomy. 2. Partial hysterectomy. 3. Implanted loop recorder. SOCIAL HISTORY: Patient lives at home alone. Patient denies smoking, using illicit drugs or drinking alcohol FAMILY HISTORY: Patient states she has an extensive history of cardiac disease in the family with her father and brother both dying of cardiac issues. Her father of [place] and his 50s and a brother when he was 15 due to congenital heart defect. ALLERGIES: Please see below. REVIEW OF SYSTEMS: General: Patient denies fevers HEENT: Patient reported a headache but states that this is since resolved Cardiovascular: Patient denies chest pain Respiratory: Patient denies shortness of breath, cough GI: Patient denies abdominal pain, nausea, vomiting, diarrhea : Patient denies increased frequency or pain with urination Extremities: Patient denies swelling or pain in extremities Neurological: Patient denies numbness or tingling in legs Skin: Patient denies any new rashes or lesions. Hematologic: Patient denies any easy bruising. Lymphatic: Patient denies any lumps lumps or bumps in neck, axilla, or groin HOME MEDICATIONS: Please see below. PHYSICAL EXAMINATION: VITAL SIGNS: Temperature 98.8, pulse 90, respiratory rate 16, blood pressure 152/66, pulse oximetry 100% on room air. General: HEENT: Normocephalic, atraumatic, moist mucous membranes. Neck: No lymphadenopathy or thyromegaly Cardiac: Regular rate and rhythm, no murmurs, normal S1, normal S2 Pulm: Clear to auscultation bilaterally. No wheezes, rhonchi, rales Abd: Nondistended, nontender to palpation, normal bowel sounds Ext: No edema bilateral lower extremities Neuro: Patient had 5/5 strength in the upper and lower extremities bilaterally and reported equal sensation light touch in all 4 extremities. Skin: Skin of the head, neck, upper and lower extremities was examined did not show any evidence of rash or wounds. LABORATORY DATA: See below. IMAGING: CT cervical spine performed on 04/02/2021 was reported to show cervical spondylosis as described with some mild foraminal encroachment only on the left at C3-C4 and no central canal or other foraminal stenosis. No compression deformity of the spine or malalignment. Negative exam for acute spinal abnormality. Posterior apical pleural thickening bilaterally right slightly greater than left. CT of the head performed without contrast on 04/02/2021 was reported to show mild atrophy but no acute or interval changes identified. Right hip x-ray performed on 04/02/2021 was reported to show there is no evidence of acute osseous abnormality. Thoracic spine x-ray performed on 04/02/2021 is reported to show findings and limitations described as the author upper thoracic vertebral bodies cannot be assessed. Consider CT for further evaluation. CT of the thoracic spine without contrast performed on 04/02/2021 was reported to show there is no evidence of an acute osseous abnormality. Right lung nodule shows an asymmetric possibly spiculated 1.6 size right upper lobe nodule. According to the revised Fleischner Society criteria standard contrast-enhanced CT examination of the chest is recommended for complete evaluation. MICROBIOLOGY: Please see below. ASSESSMENT: 80-year-old female who presented to the hospital with frequent falls and weakness who was unable to pass a physical therapy evaluation in the emergency department who will be admitted for weakness.. . PLAN: 1. Weakness and debility. Patient is apparently very weak and is unable to care for self at home. Patient lives in a two-story home. PFS consult have been placed for possible placement in either assisted living or penitentiary facility however, assisted living will most likely be the best option for the patient. Patient does have a son who lives in [facility] however, patient cannot move there at this time. Patient will also work with PT and OT. ARU screen has also been placed. 2. Urinary tract infection. Diagnosed outpatient. We will continue with K eflex as prescribed by her primary care provider. 3. Bipolar disorder. Continue home medications. Patient does not appear to be manic or depressed at this time. 4. History of hypertension. We will continue patient's home medications. 5. Abnormal CT finding. Patient has a nodule in her lung that can be worked up with chest CT with contrast performed tomorrow. DVT prophylaxis: Heparin CODE STATUS: DNR/DNI. Patient understands that DO NOT RESUSCITATE/DO NOT INTUBATE means that if the patient does going to cardiac arrest, we will not attempt resuscitation which remains she will pass away. Patient understands this and is in agreement with DNR/DNI. Disposition: Patient be admitted to the medical surgical floor. Patient will most likely be discharged in the hospital after greater than or equal to 2 midnight stay Vital Signs Vital Signs Date Time Temp Pulse Resp B/P (MAP) Pulse Ox O2 Delivery O2 Flow Rate FiO2 04/02/21 11:45 105 04/02/21 11:30 152/66 (94) 04/02/21 06:45 98.8 16 100 Room Air Laboratory Data Labs 24H Laboratory Tests 2 04/02/21 09:59: Immature Granulocyte % (Auto) 0.4, Neutrophils (%) (Auto) 65.2, Lymphocytes (%) (Auto) 24.0, Monocytes (%) (Auto) 8.0, Eosinophils (%) (Auto) 1.7, Basophils (%) (Auto) 0.7, Neutrophils # (Auto) 7.0, Lymphocytes # (Auto) 2.6, Monocytes # (Auto) 0.9H, Eosinophils # (Auto) 0.2, Basophils # (Auto) 0.1, Nucleated Red Blood Cells % (auto) 0.0, Anion Gap 3L, Glomerular Filtration Rate 46.1, Calcium Level 9.8, Total Bilirubin 0.3, Direct Bilirubin < 0.1, Aspartate Amino Transf (AST/SGOT) 16, Alanine Aminotransferase (ALT/SGPT) 29, Alkaline Phosphatase 85, Total Creatine Kinase 157, Creatine Kinase MB 3.1, Creatine Kinase MB Relative Index 1.97, Troponin I < 0.02, Total Protein 7.3, Albumin 3.8, Albumin/Globulin Ratio 1.1L, [place] Level 0.47L 04/02/21 11:57: Urine Color STRAW, Urine Appearance CLEAR, Urine pH 7.0, Urine Specific Williams 1.004, Urine Protein NEGATIVE, Urine Glucose (Auto)(UA) NEGATIVE, Urine Ketones (Auto) NEGATIVE, Urine Blood NEGATIVE, Urine Nitrite NEGATIVE, Urine Bilirubin NEGATIVE, Urine Urobilinogen 0.2, Urine Leukocyte Esterase (Auto) NEGATIVE, Urine WBC (Auto) 1, Urine RBC (Auto) 0, Urine Hyaline Casts (Auto) 0, Urine Bacteria (Auto) 1+H, Urine Squamous Epithelial Cells 0, Urine Sperm (Auto) 04/02/21 13:42: Coronavirus (COVID-19)(PCR) NEGATIVE CBC/BMP Laboratory Tests 04/02/21 09:59 Home Medications Scheduled Amlodipine Besylate (Norvasc) 10 Mg Tablet, 10 MG PO DAILY Aspirin (Aspirin EC) 81 Mg Tablet.dr, 81 MG PO DAILY Dextroamphetamine/Amphetamine (Adderall 20 mg Tablet) 20 Mg Tablet, 20 MG PO DAILY Ergocalciferol (Vitamin D2) (Vitamin D2) 50,000 Units Cap, 50,000 UNITS PO QWEEK SATURDAYS Glucosam/Brett-Msm1/C/Ap/Bosw (Osteo Bi-Flex Caplet) 1 Each Tablet, 2 TAB PO DAILY L.acidoph/L.bulg/B.bif/S.therm (Erika-Bid Caplet) 1 Each Tablet, 1 EA PO WMHS Lamotrigine (Lamotrigine) 150 Mg Tablet, 150 MG PO DAILY Levothyroxine Sodium (Synthroid) 50 Mcg Tablet, 50 MCG PO DAILY [place] Carbonate ([place] Carbonate) 150 Mg Capsule, 150 MG PO DAILY [place] Carbonate ([place] Carbonate) 300 Mg Capsule, 300 MG PO QHS Lurasidone Hydrochloride (Latuda) 40 Mg Tablet, 40 MG PO QPM TAKES AT DINNERTIME Melatonin (Melatonin) 5 Mg Tablet, 5 MG PO QHS Pantoprazole Sodium (Pantoprazole Sodium) 40 Mg Tablet.dr, 40 MG PO BID Sucralfate (Sucralfate) 1 Gm Tablet, 1 GM PO ACHS Vitamin B Complex (Vitamin B Complex) 1 Each Tablet, 1 TAB PO Q2D Allergies Coded Allergies: bee venom protein (honey bee) (Verified Allergy, Intermediate, swelling, 03/31/21) doxycycline (Verified Allergy, Intermediate, itch, 03/31/21) Sulfa (Sulfonamide Antibiotics) (Verified Allergy, Unknown, 03/31/21) A-FIB/CHADSVASC A-FIB History Current/History of A-Fib/PAF?: No JOSETTE MERCADO DO Apr 02, 2021 15:47
[2021-04-02 17:51] VITALS: BP 146/72
--- NOTE | 2021-04-02 20:35 | ECGEPIP ---
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 Order Number: [id number] Reading MD: Lyly Villalobos Measurements Intervals [place] Rate: 84 P: 77 NE: 174 QRS: 12 QRSD: 138 T: 40 QT: 416 QTc: 491 Interpretive Statements Normal sinus rhythm Right bundle branch block decreased rate 01/26/21 Electronically Signed on 04-02-2021 20:34:37 EST by Lyly Villalobos
[2021-04-02] MEDS: HEPARIN SOD (PORCINE) 5000UNITS/ML 1ML VIAL/SYRINGE SC SCH (21:49)
[2021-04-02 22:00] VITALS: BP 161/74
[2021-04-03 06:00] VITALS: BP 146/71
[2021-04-03 06:12] LABS: HEMATOCRIT 34.4 % (36.0-47.0); MEAN CORPUSCULAR HEMOGLOBIN 31.1 pg (27.0-33.0); MEAN CORPUSCULAR VOLUME 97.2 fl (80.0-96.0); PLATELET COUNT, AUTOMATED 382 10^3/uL (150-450); RED BLOOD COUNT 3.54 10^6/uL (4.00-5.40); WHITE BLOOD COUNT 9.2 10^3/uL (4.0-10.0)
[2021-04-03 06:28] LABS: CALCIUM LEVEL 8.9 MG/DL (8.8-10.2); CREATININE FOR GFR 1.06 MG/DL (0.55-1.30); GLOMERULAR FILTRATION RATE 53.2 (>39); MAGNESIUM LEVEL 2.8 MG/DL (1.8-2.4); POTASSIUM SERUM 3.4 MEQ/L (3.5-5.1)
[2021-04-03] MEDS ORDERED: ISOVUE-370 76% 100ML VIAL As Ordered ONE (07:52)
[2021-04-03] MEDS ORDERED: KCL 20MEQ IN 0.45NS 1000ML 1,000 ML IV SCH (08:45)
--- NOTE | 2021-04-03 08:54 | REP ---
INDICATION: nodule in right lung seen on CT T-spine COMPARISON: None. TECHNIQUE: Standard helical technique after the intravenous administration of 100 cc Isovue 370 FINDINGS: The mediastinum and pulmonary wil are within normal limits. There is no evidence of a mass or adenopathy. There are no pleural or pericardial effusions. The imaged upper abdomen shows cholelithiasis. The imaged osseous structures show thoracic kyphosis and spinal degenerative changes. Evaluation of the lung fritz shows a pleural-based right apical 1.9 x 1.6 x 1.7 cm sized irregular possibly slightly spiculated nodule. There is concomitant biapical pleuroparenchymal scarring. There is a 3 mm size right middle lobe nodule. There is a 9 mm sized right intra fissural nodule at the level of the superior segment of the right lower lobe. There is an incidental calcified granuloma in the right lower lobe. There are bibasilar curvilinear densities. There is cylindrical bronchiectasis. IMPRESSION: 1. Right apical nodule as described above. According to the revised Fleischner society criteria PET-CT is warranted at this time. Malignancy cannot be ruled out. 2. Right middle lobe nodule as described above. Follow-up is recommended. 3. Right intra fissural nodule as described above. This can also be evaluated with the recommended PET-CT. 4. Likely bibasilar subsegmental atelectatic change. 5. Cylindrical bronchiectasis. 6. Incidental calcified granuloma in the right lower lobe. <Electronically signed by Moreno Tolentino > 04/03/21 [id number]
--- NOTE | 2021-04-03 09:15 | ED PDOC ---
Post-Departure Follow-Up radiology report faxed to Kirk pino Sarah MD Apr 03, 2021 09:15
[2021-04-03] MEDS: SUCRALFATE 1 GM TAB PO SCH ×4 (09:32→20:31)
[2021-04-03] MEDS: PANTOPRAZOLE 40MG TAB (PROTONIX) PO SCH (09:32)
[2021-04-03] MEDS: LACTOBACILLUS ACIDOPHILUS CAP (BACID) PO SCH ×3 (09:32→20:30)
[2021-04-03] MEDS: HEPARIN SOD (PORCINE) 5000UNITS/ML 1ML VIAL/SYRINGE SC SCH ×2 (09:33→20:30)
[2021-04-03] MEDS: LEVOTHYROXINE 50MCG TABLET (0.05MG) PO SCH (09:35)
[2021-04-03] MEDS: CEPHALEXIN 250MG CAPSULE PO SCH ×2 (12:00→17:00)
[2021-04-03 14:00] VITALS: BP 168/87
--- NOTE | 2021-04-03 16:04 | IPNPDOC ---
Text Note Date of Service The patient was seen on 04/03/21. NOTE Subjective: Patient is a 80-year-old female present to the emergency department for multiple falls. Patient states that she recently was admitted to the hospital and went to the acute rehab unit. Patient is been feeling weak over the past few days and has been unable to take care of herself at home. Patient states that she does not feel safe at home and did not pass a physical therapy evaluation in the emergency department therefore she was admitted in the hospital. Patient did have a nodule seen on her CT of her thoracic spine in the lungs. This was imaged today with a CT of the chest. Patient states that she still feels weak but is otherwise feeling well today. Review of systems: General: Patient denies fevers HEENT: Patient denies headaches Cardiovascular: Patient denies chest pain Respiratory: Patient denies shortness of breath, cough GI: Patient denies abdominal pain, nausea, vomiting, diarrhea : Patient denies increased frequency or pain with urination Extremities: Patient denies swelling or pain in extremities Neurological: Patient denies numbness or tingling in legs Physical exam: Vitals: See below General: Alert and oriented female patient who was sitting up in bed when I walked in. Patient not appear to be in any acute distress. HEENT: Normocephalic, atraumatic, moist mucous membranes. Neck: No lymphadenopathy or thyromegaly Cardiac: Regular rate and rhythm, no murmurs, normal S1, normal S2 Pulm: Clear to auscultation bilaterally. No wheezes, rhonchi, rales Abd: Nondistended, nontender to palpation, normal bowel sounds Ext: No edema bilateral lower extremities Labs: See below Imaging: CT scan of the chest with contrast from 04/03/2021 was reported to show a pleural-based right apical 1.9 x 1.6 x 1.7 cm size irregular possibly slightly spiculated nodule. There is concomitant biapical pleural-parenchymal scarring. There is a 3 mm size right middle lobe nodule. There is a 9 mm size right intrafissural nodule at the level of the superior segment of the right lobe. According to the revised Fleischner criteria, PET CT is warranted at this time. Malignancy cannot be ruled out. Likely bibasilar subsegmental atelectatic change. Cylindrical bronchiectasis. Incidental calcified granuloma in the right lower lobe. Assessment/plan: 80-year-old female presented to hospital with frequent falls and weakness was unable to pass physical therapy evaluation in the emergency department. 1. Weakness and debility. Patient is apparently very weak and unable to care for self at home. Patient lives in a two-story home. PFS consult in place. Patient will work with physical and occupational therapy. ARU screen has been placed as well. 2. Hypernatremia. Patient's sodium level today is 148. This may be contributi ng to the patient's weakness. Patient sodium level was normal yesterday. Patient will receive a liter of half-normal saline at 100 cc/h. 3. Hypokalemia. Patient will receive 20 mEq of potassium in her fluids as well as oral repletion. 3. Urinary tract infection diagnosed outpatient. Continue Keflex as prescribed. 4. Lung nodule seen on chest CT. Patient will need a PET scan performed ou tpatient. 5. Bipolar disorder. Continue home medications. 6. Hypertension. Continue patient's home medications. DVT Prophylaxis: Heparin Disposition: Pending clinical improvement Lui VALE, I+O Lui VALE I+O Laboratory Tests 04/03/21 05:47 Vital Signs Date Time Temp Pulse Resp B/P (MAP) Pulse Ox O2 Delivery O2 Flow Rate FiO2 04/03/21 14:00 98.1 88 18 168/87 (114) 99 Room Air I&O- Last 24 Hours up to 6 AM 04/03/21 06:00 Intake Total 660 ml Output Total 1775 ml Balance -1115 ml JOSETTE MERCADO DO Apr 03, 2021 16:03
[2021-04-03 17:31] LABS: CALCIUM LEVEL 9.3 MG/DL (8.8-10.2); CREATININE FOR GFR 1.28 MG/DL (0.55-1.30); GLOMERULAR FILTRATION RATE 42.8 (>39); POTASSIUM SERUM 3.8 MEQ/L (3.5-5.1)
[2021-04-03] MEDS ORDERED: LURASIDONE HCL 40 MG TAB (LATUDA) PO SCH (18:00)
[2021-04-03] MEDS ORDERED: MAGNESIUM OXIDE 400MG TAB (MAG-OX) PO SCH (21:00)
[2021-04-03] MEDS ORDERED: LITHIUM CARBONATE 300 MG CAP PO SCH (21:00)
[2021-04-03 22:00] VITALS: BP 147/70
[2021-04-04] MEDS: CEPHALEXIN 250MG CAPSULE PO SCH ×3 (00:13→12:05)
[2021-04-04] MEDS: LEVOTHYROXINE 50MCG TABLET (0.05MG) PO SCH (05:59)
[2021-04-04 06:00] VITALS: BP 138/60
[2021-04-04 06:23] LABS: HEMATOCRIT 33.9 % (36.0-47.0); HEMOGLOBIN 10.6 g/dl (12.0-15.5); MEAN CORPUSCULAR HEMOGLOBIN 30.4 pg (27.0-33.0); MEAN CORPUSCULAR HGB CONC 31.3 g/dl (32.0-36.5); MEAN CORPUSCULAR VOLUME 97.1 fl (80.0-96.0); PLATELET COUNT, AUTOMATED 359 10^3/uL (150-450); RED BLOOD COUNT 3.49 10^6/uL (4.00-5.40); WHITE BLOOD COUNT 9.6 10^3/uL (4.0-10.0)
[2021-04-04 06:50] LABS: CALCIUM LEVEL 9.4 MG/DL (8.8-10.2); CREATININE FOR GFR 1.3 MG/DL (0.55-1.30); GLOMERULAR FILTRATION RATE 42.1 (>39); MAGNESIUM LEVEL 2.8 MG/DL (1.8-2.4); POTASSIUM SERUM 3.7 MEQ/L (3.5-5.1)
[2021-04-04 09:12] VITALS: BP 133/61
[2021-04-04] MEDS: SUCRALFATE 1 GM TAB PO SCH ×2 (09:12→12:05)
[2021-04-04] MEDS: PANTOPRAZOLE 40MG TAB (PROTONIX) PO SCH (09:13)
[2021-04-04] MEDS: LACTOBACILLUS ACIDOPHILUS CAP (BACID) PO SCH (09:13)
[2021-04-04] MEDS: HEPARIN SOD (PORCINE) 5000UNITS/ML 1ML VIAL/SYRINGE SC SCH (09:13)
[2021-04-04] MEDS ORDERED: Cephalexin Monohydrate PO (10:13)
[2021-04-04] MEDS ORDERED: POLYVINYL ALCOHOL OPHTH SOLN 15 ML(LIQUITEARS) OU PRN (10:25)
--- NOTE | 2021-04-04 17:24 | DS.PDOC ---
Discharge Summary General Date of Admission Apr 02, 2021 at 14:38 Date of Discharge 04/04/2021 Primary Care Physician: KYA DOLAN DO Attending Physician: JOSETTE MERCADO DO Discharge Summary PROCEDURES PERFORMED DURING STAY: None. ADMITTING DIAGNOSES: 1. Weakness and debility. 2. Urinary tract infection 3. Bipolar disorder 4. History hypertension 5. Abnormal CT finding DISCHARGE DIAGNOSES: 1. Weakness and debility. 2. Hypernatremia, resolved 3. Hypokalemia, resolved 4. Urinary tract infection 5. Bipolar disorder 6. Hypertension 7. Abnormal chest CT finding with lung nodule with recommendation for PET/CT COMPLICATIONS/CHIEF COMPLAINT: Weakness. HISTORY OF PRESENT ILLNESS: Patient is a 80-year-old female who presented to the emergency department after multiple falls. Patient states that she was recently admitted in the hospital and went to the acute rehab unit. Patient has been feeling weak over the past few days. Patient states that she went to her primary care provider's office on Wednesday and was diagnosed with an urinary tract infection which she started antibiotics for on Wednesday. Patient has received 3 doses of the antibiotics at this time. Patient states that she has been trying to walk around her house but is feeling very weak. Patient is fallen multiple times. Patient lives in a two-story home by herself and states that she has not been able to go up into the second floor where her bedroom is as she is afraid to climb up the stairs. Patient is sleeping on the couch for the last few nights due to this. Patient states that she was not been able to get comfortable last night and when she stood up from the couch she ended up falling down. Patient states that she her back has been hurting her. Patient also states that she had a headache however, this is since resolved. Patient hit her life alert button and EMS arrived and brought her to the hospital. In the hospital, she does complain of some mild back pain however she is otherwise feeling well today. Patient is nervous about going home as she has no one to help her. Patient states that she realizes that she may need to sell her home. HOSPITAL COURSE: Patient was found to be hyponatremic and hypokalemic on the first day of her hospitalization. Patient required a liter of IV fluids with half-normal saline with 20 mEq potassium in the fluids. This resolved both the hypernatremia and hypokalemia. Patient was doing well throughout her hospitalization. CT of the chest did show the patient has a nodule that according to the revised Fleischner criteria meets criteria for PET CT scanning. This should be followed up outpatient. The decision was made to discharge the patient to the acute rehab unit. Patient was discharged to the acute rehab unit on 04/04/2021. DISCHARGE MEDICATIONS: Please see below. ALLERGIES: Please see below. PHYSICAL EXAMINATION ON DISCHARGE: VITAL SIGNS: Please see below. General: Alert and oriented female patient who was sitting in bed when I walked in. Patient did not appear to be in any acute distress. HEENT: Normocephalic, atraumatic, moist mucous membranes. Neck: No lymphadenopathy or thyromegaly Cardiac: Regular rate and rhythm, no murmurs, normal S1, normal S2 Pulm: Clear to auscultation bilaterally. No wheezes, rhonchi, rales Abd: Nondistended, nontender to palpation, normal bowel sounds Ext: No edema bilateral lower extremities LABORATORY DATA: Please see below. IMAGING: CT cervical spine performed on 04/02/2021 was reported to show cervical spondylosis as described with some mild foraminal encroachment only on the left at C3-C4 and no central canal or other foraminal stenosis. No compression deformity of the spine or malalignment. Negative exam for acute spinal abnorma lity. Posterior apical pleural thickening bilaterally right slightly greater than left. CT of the head performed without contrast on 04/02/2021 was reported to show mild atrophy but no acute or interval changes identified. Right hip x-ray performed on 04/02/2021 was reported to show there is no e vidence of acute osseous abnormality. Thoracic spine x-ray performed on 04/02/2021 is reported to show findings and limitations described as the author upper thoracic vertebral bodies cannot be assessed. Consider CT for further evaluation. CT of the thoracic spine without contrast performed on 04/02/2021 was reported to show there is no evidence of an acute osseous abnormality. Right lung nodule shows an asymmetric possibly spiculated 1.6 size right upper lobe nodule. According to the revised Fleischner Society criteria standard contrast-enhanced CT examination of the chest is recommended for complete evaluation. CT scan of the chest with contrast from 04/03/2021 was reported to show a pleural-based right apical 1.9 x 1.6 x 1.7 cm size irregular possibly slightly spiculated nodule. There is concomitant biapical pleural-parenchymal scarring. There is a 3 mm size right middle lobe nodule. There is a 9 mm size right intrafissural nodule at the level of the superior segment of the right lobe. According to the revised Fleischner criteria, PET CT is warranted at this time. Malignancy cannot be ruled out. Likely bibasilar subsegmental atelectatic change. Cylindrical bronchiectasis. Incidental calcified granuloma in the right lower lobe. PROGNOSIS: Good ACTIVITY: As tolerated. DIET: Regular DISCHARGE PLAN: Discharge to ARU DISPOSITION: 62 D/T Rehab Facility. DISCHARGE INSTRUCTIONS: 1. Follow-up with Dr. Allen and the rest of the ARU staff. 2. Follow-up with primary care provider after being discharged from ARU ITEMS TO FOLLOWUP ON ON OUTPATIENT: 1. PET CT scan for lung nodule. DISCHARGE CONDITION: Stable. TIME SPENT ON DISCHARGE: 33 minutes. Vital Signs/I&Os Vital Signs Date Time Temp Pulse Resp B/P (MAP) Pulse Ox O2 Delivery O2 Flow Rate FiO2 04/04/21 09:12 85 133/61 04/04/21 06:00 99.1 18 90 Room Air I&O- Last 24 Hours up to 6 AM 04/04/21 06:00 Intake Total 2390 ml Output Total 1950 ml Balance 440 ml Laboratory Data Labs 24H Laboratory Tests 2 04/04/21 05:46: Nucleated Red Blood Cells % (auto) 0.0, Anion Gap 5L, Glomerular Filtration Rate 42.1, Calcium Level 9.4, Magnesium Level 2.8H CBC/BMP Laboratory Tests 04/04/21 05:46 Discharge Medications Scheduled Amlodipine Besylate (Norvasc) 10 Mg Tablet, 10 MG PO DAILY, (Reported) Dextroamphetamine/Amphetamine (Adderall 20 mg Tablet) 20 Mg Tablet, 20 MG PO DAILY, (Reported) Ergocalciferol (Vitamin D2) (Vitamin D2) 50,000 Units Cap, 50,000 UNITS PO QWEEK, (Reported) SATURDAYS L.acidoph/L.bulg/B.bif/S.therm (Bacid Caplet) 1 Each Tablet, 1 TAB PO TID, (Reported) Lamotrigine (Lamotrigine) 150 Mg Tablet, 225 MG PO DAILY, (Reported) Levothyroxine Sodium (Synthroid) 50 Mcg Tablet, 50 MCG PO DAILY, (Reported) [place] Carbonate ([place] Carbonate) 300 Mg Capsule, 300 MG PO QHS, (Reported) Lurasidone Hydrochloride (Latuda) 40 Mg Tablet, 40 MG PO QPM, (Reported) TAKES AT DINNERTIME Magnesium Oxide (Magnesium) 400 Mg Capsule, 400 MG PO QHS, (Reported) Pantoprazole Sodium (Pantoprazole Sodium) 40 Mg Tablet.dr, 40 MG PO DAILY, (Reported) Sucralfate (Sucralfate) 1 Gm Tablet, 1 GM PO ACHS, (Reported) Vilazodone HCl (Viibryd) 40 Mg Tablet, 40 MG PO DAILY, (Reported) Vitamin B Complex (Vitamin B Complex) 1 Each Tablet, 1 TAB PO Q2D, (Reported) [Cephalexin Monohydrate] 250 MG CAP, 250 MG PO Q6H Allergies Coded Allergies: bee venom protein (honey bee) (Verified Allergy, Intermediate, swelling, 03/31/21) doxycycline (Verified Allergy, Intermediate, itch, 03/31/21) Sulfa (Sulfonamide Antibiotics) (Verified Allergy, Unknown, 03/31/21) JOSETTE MERCADO DO Apr 04, 2021 17:24
== END 2021-04-04 12:44 | DRG 948 ==
LOC: M ED 06:45 → M ED INP 14:38 → ENRESERV 16:47 → M MSPAV 17:52
PROVIDERS: ADMIT Family Medicine; ATTEND Family Medicine
DX: R53.1 Weakness (principal); N39.0 Urinary tract infection, site not specified; E87.0 Hyperosmolality and hypernatremia; I10 Essential (primary) hypertension; E87.6 Hypokalemia; F31.9 Bipolar disorder, unspecified; R91.1 Solitary pulmonary nodule; R29.6 Repeated falls; Z79.899 Other long term (current) drug therapy; Z91.030 Bee allergy status; Z88.8 Allergy status to other drugs, medicaments and biological substances; Z88.2 Allergy status to sulfonamides; Z85.3 Personal history of malignant neoplasm of breast; Z66 Do not resuscitate

== ENCOUNTER 2021-04-04 12:20 | Inpatient (IN) | payer MEDICARE, OTHER ==
[~2021-04-04] VITALS: Ht 154.9 cm; Wt 70.1 kg
[~2021-04-04 12:20] MED LIST changes: +BACITAB PO; +Cephalexin Monohydrate PO; +MAGN400C PO; +PANT-23 PO; +SUCR1TAB56 PO
[2021-04-04 12:50] VITALS: BP 173/79
--- OUTSIDE RECORDS SUMMARY | 2021-04-04 13:15 | CCD ---
Author Author [facility] Organization [facility] Address Unknown Phone Unavailable Care Team Providers Care Quality Improvement Consultant Name Role Phone JUAN MANUEL-LAKEISHA, TEMITOPE DO Unavailable Unavailable JUAN MANUEL-LAKEISHA, TEMITOPE DO Unavailable Unavailable JUAN MANUEL-LAKEISHA, TEMITOPE DO Unavailable Unavailable JUAN MANUEL-LAKEISHA, TEMITOPE DO Unavailable Unavailable JUAN MANUEL-LAKEISHA, TEMITOPE DO Unavailable Unavailable JUAN MANUEL-LAKEISHA, TEMITOPE DO Unavailable Unavailable JUAN MANUEL-LAKEISHA, TEMITOPE DO Unavailable Unavailable JUAN MANUEL-LAKEISHA, TEMITOPE DO Unavailable Unavailable JUAN AMNUEL-LAKEISHA, TEMITOPE DO Unavailable Unavailable JUAN MANUEL-LAKEISHA, TEMITOPE [...] Unavailable Unavailable BYRON, BARBER MD Unavailable Unavailable YBRON, BARBER MD Unavailable Unavailable BYRON, BARBER MD [...] JUAN MANUEL-LAKEISHA, TEMITOEP DO Unavailable Unavailable JUAN MANUEL-LKAEISHA, TEMITOPE DO Unavailable Unavailable JUAN MANUEL-LAKEISHA, TEMITOPE [...] L Ameena RPA Unavailable Unavailable DESJARLAIS, RICKEY COIL CLEANER Unavailable Unavailable DESJARLAIS, RCIKEY COIL CLEANER Unavailable Unavailable DESJARLAIS, RICKEY COIL CLEANER Unavailable Unavailable DESJARLAIS, RICKEY COIL CLEANER Unavailable Unavailable DESJARLAIS, RICKEY COIL CLEANER Unavailable Unavailable DESJARLAIS, RICKEY COIL CLEANER Unavailable Unavailable DESJARLAIS, RICKEY COIL CLEANER Unavailable Unavailable DESJARLAIS, RICKEY COIL CLEANER Unavailable Unavailable DESJARLAIS, RICKEY COIL CLEANER Unavailable Unavailable DESJARLAIS, RICKEY COIL CLEANER Unavailable Unavailable PONCHO, BREA DEVON PA-C Unavailable [...] is protected by Article 27-F of the [facility] Public Health law. If you continue you may have access to information: Regarding HIV / AIDS; Provided by facilities licensed or operated by the [facility] Office of Mental Health; or Provided by the [facility] Office for People With Developmental Disabilities. If such information is present, then the following [facility] mandated warning applies: This information has [...] law may result in a fine or prison sentence or both. A general authorization for the release of medical or other information is NOT sufficient authorization for further disc losure. Allergies and Adverse Reactions Type Description Substance Reaction Status Data Source(s ) Propensity to adverse reactions SULFA (sulfonamide) SULFA (sulfonamid e) RASH [facility] Family History Family Member Name Family Member Gender Family Member Status Date o f Status Description Data Source(s) Unknown Male Problem MEDENT ([facility]) Unknown Male Problem MEDENT ([facility] Unknown Unknown Problem MEDENT ([facility]) Unknown Male Problem MEDENT ([facility]) () Encounters Encounter Providers Location Date Indications Data Source(s ) Emergency Attender: MARY HOLTConsultant: TEMITOPE SANCHEZ DO 03/31/2021 10:47:19 PM [facility] Patient admitted. Outpatient Attender: RICKEY VARELA NP 03/26/2021 09: 34:[address] [facility] Outpatient Attender: Shante CHAVIRA [facility] 03/06/2021 01:40:00 PM EDT MEDENT ([facility]) Outpatient Attender: RICKEY VARELA NP 03/06/2021 10: 01:[address] [facility] Outpatient Attender: Ameena Monsalve/Yasmin/Mitchel/Andrea alexis 02/27/2021 10:00:00 AM EDT MEDENT ([facility] Outpatient Attender: Kirk CHAVIRA [facility] 02/24/2021 01:00:00 PM EDT MEDENT ([facility]) Outpatient Attender: RICKEY VARELA NP 02/19/2021 01: 40:[address] [facility] Outpatient Attender: Kirk CHAVIRA [facility] 02/17/2021 10:20:00 AM EDT MEDENT ([facility]) (TEL) .[facility] 01/23/2021 12:00:00 AM EDT eCW1 ([facility]) Outpatient .[facility] 01/23/2021 12:00:00 AM EDT eCW1 ([facility]) Outpatient Attender: RICKEY VARELA NP 01/16/2021 09: 51:[address] [facility] Outpatient [facility] 01/15/2021 12:00:00 AM EDT eCW1 ([facility]) Outpatient Attender: Kirk CHAVIRA [facility] 01/03/2021 10:00:00 AM EDT MEDENT ([facility]) Outpatient Attender: RICKEY VARELA NP 12/19/2020 11: 52:[address] [facility] Outpatient Attender: RICKEY VARELA NP 12/05/2020 03: 20:[address] [facility] Outpatient Attender: Kirk CHAVIRA [facility] 11/19/2020 08:00:00 AM EDT MEDENT ([facility]) Outpatient Attender: SHANTE lopez 11/15/2020 04:05:00 PM EDT MEDENT ([facility], [facility]) Outpatient Attender: RICKEY VARELA NP 11/12/2020 10: 56:[address] [facility] Outpatient Attender: RICKEY VARELA NP 10/02/2020 10: 50:[address] [facility] Office Visit Attender: Kirk CHAVIRA [facility] 09/30/2020 02:20:00 PM EDT MEDENT ([facility]) Outpatient Attender: RICKEY VARELA NP 09/05/2020 09: 49:[address] [facility] Outpatient Attender: RICKEY VARELA NP 08/06/2020 10: 46:[address] [facility] Outpatient Attender: RICKEY VARELA NP 07/30/2020 09: 45:00 AM [facility] Outpatient [facility] 07/23/2020 12:00:00 AM EST eCW1 ([facility]) Outpatient Attender: RICKEY VARELA NP 07/16/2020 10: 27:00 AM [facility] Outpatient Attender: Kirk CHAVIRA [facility] 07/15/2020 09:00:00 AM EST MEDENT ([facility]) Outpatient Attender: Kirk CHAVIRA [facility] 07/03/2020 08:20:00 AM EST MEDENT ([facility]) Outpatient Attender: RICKEY VARELA NP 06/28/2020 10: 23:00 AM [facility] [address] [place] [address] 06/28/2020 12:00:00 AM EST eCW1 ([facility]) Outpatient Attender: BARBER MATTHEWS MD Main office - [facility] 06/18/2020 01:30:00 PM EST MEDENT ([facility] gutier[facility]) (TEL) .[facility] 06/11/2020 12:00:00 AM EST eCW1 ([facility]) Outpatient Attender: DEVON ISAAC PA-C 06/10/2020 10:34:00 AM [facility] Outpatient Attender: RICKEY VARELA NP 05/31/2020 08: 35:00 AM [facility] Outpatient Attender: Kirk CHAVIRA [facility] 05/14/2020 07:40:00 AM EST MEDENT ([facility]) Outpatient Attender: RICKEY VARELA NP 05/10/2020 08: 31:00 AM [facility] Outpatient Attender: Kirk CHAVIRA [facility] 05/07/2020 02:20:00 PM EST MEDENT ([facility]) Outpatient Attender: IRCKEY VARELA NP 04/12/2020 11: 11:00 AM [facility] Outpatient Attender: ALEX NICHOLSON [facility] 03/24 10:00:00 AM EST MEDENT ([facility] Outpatient Attender: TEMITOPE DOLAN DO [facility] 04/02/2020 07:20:00 AM EST MEDENT ([facility]) Outpatient Attender: RICKEY VARELA NP 03/22/2020 10: 34:[address] [facility] (TEL) .[facility] 02/23/2020 12:00:00 AM ED eCW1 ([facility]) Outpatient Attender: RICKEY DESKAYLENERLAIS COIL CLEANER 02/16/2020 10: 40:[address] [facility] Outpatient Attender: RICKEY DESJARLAIS COIL CLEANER 02/02/2020 10: 40:[address] [facility] Outpatient Attender: RICKEY DESJARLAIS COIL CLEANER 01/26/2020 10: 06:[address] [facility] Outpatient Attender: RICKEY DESJARLAIS COIL CLEANER 01/16/2020 05: 00:[address] [facility] Outpatient Attender: RICKEY DESJARLAIS COIL CLEANER 01/04/2020 09: 01:[address] [facility] Outpatient Attender: RICKEY DESJARLAIS COIL CLEANER 12/20/2019 12: 03:[address] [facility] Outpatient Attender: DEVON ISAAC PA-C 12/19/2019 11:47:[address] [facility] Outpatient Attender: RICKEY DESJARLAIS COIL CLEANER 12/07/2019 10: 47:[address] [facility] Outpatient Attender: RICKEY DESJARLAIS COIL CLEANER 11/29/2019 10: 40:[address] [facility] Outpatient Attender: RICKEY DESJARLAIS COIL CLEANER 11/14/2019 11: 34:[address] [facility] Outpatient Attender: RICKEY DESJARLAIS COIL CLEANER 11/07/2019 10: 40:[address] [facility] Outpatient Attender: RICKEY DESJARLAIS COIL CLEANER 10/25/2019 10: 25:[address] [facility] Outpatient Attender: RICKEY DESJARLAIS COIL CLEANER 09/26/2019 04: 20:[address] [facility] Outpatient Attender: RICKEY DESJARLAIS COIL CLEANER 09/19/2019 04: 58:[address] [facility] Immunizations Vaccine Date Status Description Data Source(s) COVID-19 VACCINE Moderna 07/26/2020 12:00:00 AM EST completed [facility] Vaccine Series Complete: YESThis Data wa s Submitted to [facility] Via [employer]. COVID-19 VACCINE, MRNA-1273, LNP-S (MODERNA)/PF 07/26/2020 1 2:00:00 AM EST completed [facility] COVID-19 VACCINE Moderna 06/28/2020 12:00:00 AM EST completed [facility] Vaccine Series Complete: NOThis Data was Submitted to [facility] Via [employer]. COVID-19 VACCINE, MRNA-1273, LNP-S (MODERNA)/PF 06/28/2020 1 [...] 03/30/2021 12:00:00 AM EDT ORAL active MEDENT ([facility]) pantoprazole 40 MG Delayed Release [...] 1.0 {tablet} active Adderall 20 MG eCW1 ([facility]) Amphetamine aspartate 2.5 MG / Amphetami ne Sulfate 2.5 MG / Dextroamphetamine saccharate 2.5 MG / Dextroamphetamine Sulfate 2.5 MG Oral Tablet [Adderall] Adderall 10 MG Adderall 10 MG 10/24/2020 12:00:00 AM EDT 1.0 {tablet} active Adderall 10 MG eCW1 ([facility]) 0.005 % 09/11/2020 12:00:00 AM EDT [...] DAILY DOSE = 2 SOLD: 07/29/2020 Arnol [employer] Covid-19 vaccine, Unspecified 07/26/2020 12:00:00 AM EST completed MEDENT ([facility]) Medication administered onsite Amphetamine aspartate 5 MG / Amphetamine Sulfate 5 MG / Dextroamphetamine saccharate 5 MG / Dextroamphetamine Sulfate 5 MG Oral Tablet [Adderall] Adderall 20 MG Adderall 20 MG 07/23/2020 12:00:00 AM EST 1.0 {tablet} active Adderall 20 MG eCW1 ([facility]) Walker Wheels/Fixed With 5 Adjustment Holes/3" 07/18/2020 12:00:00 AM EST active MEDENT ([facility]) Calcium Carbonate 298 MG / Magnesium Chl oride 596 MG Delayed Release Oral Tablet [Slow-Mag Reformulated Jun 2011] Slow-Mag 07/03/2020 12:00:00 AM EST ORAL completed MEDENT ([facility]) Covid-19 vaccine, Unspecified 06/28/2020 12:00:00 AM EST completed MEDENT ([facility]) Medication administered onsite Ergocalciferol 93780 UNT Oral Capsule Ergocalciferol 05/14/2020 12:00:00 AM EST active MEDENT ( [facility]) Shingrix Shingrix 02/26/2020 12:00:00 AM EDT SUBCUTANEOUS completed MEDENT ([facility]) 5 mg/gram (0.5 %) 01/09/2020 [...] to perez Policy Perez Plan Information MEDICARE [id number] SP [id number] MEDICARE [id number] SP [id number] A MEDICARE A [id number] Self [id number] [place] [id number] S [id number] MEDICARE A [id number] Self [id number] M10 MEDICARE [id number] SP [id number] M10 MEDICARE [id number] SP [id number] A Medicare Natl Gov't Servi Medicare Primary [id number] Self [id number] [place] MED[place]ARE [place] [id number] S [id number] Medicare Natl Gov't Servi Medicare Primary [id number] Self [id number] MEDICARE [id number] SP [id number] A Medicare Natl Gov't Servi Medicare Primary [id number] Self [id number] [employer] [id number] SP [id number] [employer] U [id number] Self [id number] [employer] [id number] SP [id number] [employer] U [id number] Self [id number] UMR [facility] [id number] SP [id number] UMR U [id number] Self [id number] UMR [facility] [id number] SP [id number] UMR U [id number] Self [id number] Umr Commercial [id number] Self [id number] [place] [id number] Self [id number] Umr Medigap Part B [id number] Self [id number] Medicare Medicare Primary [id number] Self [id number] [place] Primary [id number] Self [id number] Medicare Medicare Primary [id number] Self [id number] Medicare Medicare Primary [id number] Self [id number] Medicare [place] Medicare Primary [id number] Self [id number] ANSI-Medicare Part B [id number] ANSI-Commercial [id number] ANSI-Medicare Part B [id number] ANSI-Commercial [id number] [place] MEDICARE DIVISION [id number] S [id number] [place]IC[place] [id number] S [id number] [facility] [id number] S [id number] ANSI-Medicare Part B [id number] ANSI-Commercial [id number] ANSI-Commercial [id number] ANSI-Medicare Part B [id number] ANSI-Medicare Part B [id number] ANSI-Commercial [id number] ANSI-Medicare Part B [id number] ANSI-Commercial [id number] Medicare Medicare Primary [id number] Self [id number] ANSI-Commercial [id number] ANSI-Medicare Part B [id number] Medicare Medicare Primary [id number] Self [id number] ANSI-Commercial [id number] ANSI-Medicare Part B [id number] [facility]/[employer] Medigap Part B [id number] Self [id number] MEDICARE C [id number] S [id number] A MEDICARE [id number] SP [id number] A [employer] [id number] SP [id number] [employer] PPO O [id number] S [id number] [employer] Medigap Part B [id number] Self [id number] [employer] Medigap Part B [id number] Self [id number] Medicare [place] Medicare Primary [id number] Self [id number] [employer] Medigap Part B [id number] [id number] Self [id number] [employer] [id number] SP [id number] [employer] Commercial [id number] Self Medicare [place] Medicare Primary [id number] Self [facility]-CLINIC [id number] 18 [id number] [facility] [id number] 2 [email or web address] [id number] 18 [id number] MEDICARE PART A-CLINIC [id number] 18 [id number] A MEDICARE [id number] SP [id number] UMR [facility] [id number] SP [id number] UMR -O/P [id number] 18 [id number] MEDICARE PART A -O/P [id number] 18 [id number] UMR [id number] S [id number] [place]ICARE [place] [id number] S [id number] [place] MEDICARE DIVISION [id number] S [id number] UMR [id number] S [id number] [place] MEDICARE DIVISION [id number] S [id number] [place]ICARE [place] [id number] S [id number] UMR [id number] S [id number] [place] MEDICARE DIVISION UNAVAILABLE S UNAVAILABLE [place] MEDICARE DIVISION [id number] S [id number] [place] MEDICARE DIVISION [id number] S [id number] MEDICARE C [id number] S [id number] UMR O [id number] S [id number] [place] MEDICARE DIVISION [id number] S [id number] [place]ICARE [place] [id number] S [id number] UMR [id number] S [id number] Medicare Medicare Primary [id number] Self [id number] Problems, Conditions, and Diagnoses Code Display Name Description Problem Type Effective Dates Data Source(s) G47.9 Sleep disorder, unspecified SLEEP DISORDER, UNSPECIFIE D Diagnosis 01/16/2021 09:51:[address] [facility] F31.9 Bipolar disorder, unspecified BIPOLAR DISORDER, UNSPEC IFIED Diagnosis 01/16/2021 09:51:[address] [facility] F43.23 Adjustment disorder with mixed anxiety a nd depressed mood ADJUSTMENT DISORDER WITH MIXED ANXIETY AND DEPRESS Diagnosis 12/19/2020 11:52:[address] [facility] R25.1 Tremor, unspecified TREMOR, UNSPECIFIED Diagnosis 0 07/16/2020 10:27:00 AM [facility] G25.2 Other specified forms of tremor OTHER SPECIFIED FORMS OF TREMOR Diagnosis 05/31/2020 08:35:00 AM [facility] E55.9 Vitamin D deficiency Vitamin D deficiency, unspecified Problem 01/23/2021 12:00:00 AM EDT eCW1 ([facility]) F43.23 [id number] Adjustment disorder with mixed a nxiety and depressed mood Problem 11/12/2020 12:00:00 AM EDT eCW1 ([facility]) G25.2 [id number] Coarse tremors Problem 07/01/2020 12:00:00 A M EST eCW1 ([facility]) Surgeries/Procedures Procedure Description Date Indications Data Source(s) OFFICE OUTPATIENT VISIT 15 MINUTES 03/06/2021 12:00:00 AM EDT MEDENT ([facility]) OFFICE OUTPATIENT NEW 45 MINUTES 02/27/2021 12:00:00 A M EDT MEDENT ([facility] ) OFFICE OUTPATIENT VISIT 15 MINUTES 02/24/2021 12:00:00 AM EDT MEDENT ([facility]) Trans Care SRV Aft DC W/I 14D, Comm W/I 2 Dys Med Decs 02/17/2021 12:00:00 AM EDT MEDENT ([facility]) OFFICE OUTPATIENT VISIT 25 MINUTES 01/03/2021 12:00:00 AM EDT MEDENT ([facility]) OFFICE OUTPATIENT VISIT 25 MINUTES 11/19/2020 12:00:00 AM EDT MEDENT ([facility]) OFFICE OUTPATIENT VISIT 15 MINUTES 11/15/2020 12:00:00 AM EDT MEDENT ([facility]) MRI BRAIN BRAIN STEM W/O CONTRAST MATERIAL 07/20/2020 12:00:00 AM EST MEDENT ([facility] ) MRI BRAIN BRAIN STEM W/O CONTRAST MATERIAL 07/20/2020 12:00:00 AM EST MEDENT ([facility] ) MRI SPINAL CANAL LUMBAR W/O CONTRAST MATERIAL 07/20/19 12:00:00 AM EST MEDENT ([facility] ) MRI SPINAL CANAL LUMBAR W/O CONTRAST MATERIAL 07/20/19 12:00:00 AM EST MEDENT ([facility] ) OFFICE OUTPATIENT VISIT 15 MINUTES 07/15/2020 12:00:00 AM EST MEDENT ([facility]) NON-INVASIVE PHYSIOLOGIC STUDY EXTREMITY 3 LEVLS 07/05 12:00:00 AM EST MEDENT ([facility] ) NON-INVASIVE PHYSIOLOGIC STUDY EXTREMITY 3 LEVLS 07/05 12:00:00 AM EST MEDENT ([facility] ) TSTG ANS FUNCJ CARDIOVAGAL INNERVAJ PARASYMP 12:00:00 AM EST MEDENT ([facility] ) TESTING AUTONOMIC NERVOUS SYSTEM FUNCTION 07/05/2020 1 2:00:00 AM EST MEDENT ([facility] ) ELECTROENCEPHALOGRAM W/REC AWAKE&ASLEEP 07/04/2020 12: 00:00 AM EST MEDENT ([facility] ) ELECTROENCEPHALOGRAM W/REC AWAKE&ASLEEP 07/04/2020 12: 00:00 AM EST MEDENT ([facility] ) OFFICE OUTPATIENT VISIT 25 MINUTES 07/03/2020 12:00:00 AM EST MEDENT ([facility]) Needle electromyography, each extremity, with related paraspinal areas, when performed, done with nerve conduction, amplitude and latency/velocity study; complete, five or more muscles studied, innervated by three or more nerves or four or more spinal levels (list separately in addition to the code for primary procedure). 06/24/2020 12:00:00 AM EST MEDEN T ([facility], ) Needle electromyography, each extremity, with related paraspinal areas, when performed, done with nerve conduction, amplitude and latency/velocity study; complete, five or more muscles studied, innervated by three or more nerves or four or more spinal levels (list separately in addition to the code for primary procedure). 06/24/2020 12:00:00 AM EST MEDEN T ([facility], ) Nerve Conduction 11-12 Studies 06/24/2020 12:00:00 AM EST MEDENT ([facility] ) PARING/CUTTING BENIGN HYPERKERATOTIC LESION 2-4 2020 12:00:00 AM EST MEDENT ([facility] DEBRIDEMENT NAIL ANY METHOD 06/19/2020 12:00:00 AM EST MEDENT ([facility] Results ID Date Data Source [id number] 03/27/2021 04:00:00 PM EDT MEDENT ([facility]) Name Value Range Interpretation Code Description Data Mary rce(s) Supporting Document(s) Bacteria identified in Urine by Culture Laboratory test result Normal (applies to non-numeric results) MED[facility] ([facility]) <content>FULL REPORT IN LAB NOTES [...] FOR ESBL</content>
<content></content> ID Date Data Source [id number] 03/27/2021 04:00:00 PM EDT MEDENT ([facility]) Name Value Range Interpretation Code Description Data Mary rce(s) Supporting Document(s) Appearance, Urine Laboratory test result Normal (applies to non-numeric results) [facility] Specific [place] Urine Auto 1.004 1.002-1.035 Norm al (applies to non-numeric results) [facility] ([facility]) Color, Urine Laboratory test result Normal (applies to non -numeric results) [facility] PH,Urine 6.0 units 5.0-9.0 Normal (applies to non-numeric resul ts) [facility] ([facility]) Glucose, Urine (Ua) Auto Laboratory test result Normal (applies to non-numeric results) [facility] ([facility]) Protein, Urine Auto Laboratory test result Samantha l (applies to non-numeric results) [facility] ([facility]) Ketone, Urine Auto Laboratory test result Normal (applies to non-numeric results) [facility] ([facility]) Urobilinogen, Urine Auto 0.2 mg/dL 0.0-2.0 Normal (applies to non-numeric results) [facility] ([facility]) Nitrite, Urine Auto Laboratory test result Samantha l (applies to non-numeric results) [facility] Bilirubin, Urine Auto Laboratory test result Nor mal (applies to non-numeric results) [facility] ([facility]) Blood, Urine Blood Laboratory test result Normal (applies to non-numeric results) [facility]) Leukocyte Esterase, Urine Auto Laboratory test result Normal (applies to non- numeric results) [facility] ([facility]) WBC, Urine Auto 1 /HPF 0-3 Normal (applies to non-numeric results) [facility] ([facility]) Squamous Epithelial Cell Ur AU 0 /HPF 0-6 N ormal (applies to non-numeric results) [facility] ([facility]) Bacteria, Urine Auto Laboratory test result Norm al (applies to non-numeric results) [facility] ([facility]) RBC, Urine Auto 0 /HPF 0-3 Normal (applies to non-numeric results) [facility] ([facility]) Hyaline Cast, Urine Auto 0 /LPF 0-1 Normal (applies to non -numeric results) [facility] ([facility]) ID Date Data Source [id number] 02/01/2021 10:44:00 AM EDT [facility] Name Value Range Interpretation Code Description Data Mary rce(s) Supporting Document(s) SARS-CoV-2 (COVID 19) NEGATIVE - SARS-CoV-2 (COVID19) [facility] This lab was ordered by [facility] a nd reported by [facility]. ID Date Data Source [id number] 01/26/2021 10:24:00 PM EDT [facility] Name Value Range Interpretation Code Description Data Mary rce(s) Supporting Document(s) SARS coronavirus 2 RNA [Presence] in Res piratory specimen by DAWIT with probe detection NEGATIVE [facility] This lab was ordered by [facility] a nd reported by [facility]. ID Date Data Source [id number] 01/26/2021 06:09:00 PM EDT [facility]) Name Value Range Interpretation Code Description Data Mary rce(s) Supporting Document(s) Glucose [Mass/volume] in Capillary blood by Glucometer 126 mg/dL 83-110 Above high normal [facility] ([facility]) ID Date Data Source [id number] 01/26/2021 05:53:00 PM EDT [facility] ([facility]) Name Value Range Interpretation Code Description Data Mary rce(s) Supporting Document(s) Ammonia [Mass/volume] in Blood 13 uMOL/L N ormal (applies to non-numeric results) [facility] ([facility]) Lactate [Mass/volume] in Serum or Plasma 1.6 mmol/L 0.4-2.0 Normal (applies to non-numeric results) [facility] ([facility]) Y/N query for Sepsis Lactate Rule: Y ID Date Data Source [id number] 01/26/2021 05:53:00 PM EDT [facility]) Name Value Range Interpretation Code Description Data Mary rce(s) Supporting Document(s) Alt/SGPT 26 U/L 12-78 Normal (applies to non-numeric resul ts) [facility] ([facility]) Ast/Sgot 13 U/L 7-37 Normal (applies to non-numeric resul ts) [facility] ([facility]) Alkaline Phosphatase 85 U/L 45-117 Normal (applies to non-num caren results) [facility] ([facility]) Bilirubin,Total 0.6 mg/dL 0.2-1.0 Normal (applies to non-numeric results) [facility] ([facility]) Bilirubin,Direct 0.1 mg/dL 0.0-0.2 Normal (applies to non-numeric results) [facility] ([facility]) Total Protein 7.0 GM/DL 6.4-8.2 Normal (applies to non-numeric re sults) [facility] ([facility]) Albumin 3.3 GM/DL 3.2-5.2 Normal (applies to non-numeric resul ts) [facility] ([facility]) Albumin/Globulin Ratio 0.9 1.2-2.2 Below low normal [facility] ([facility]) ID Date Data Source [id number] 01/26/2021 05:53:00 PM EDT [facility] ([facility]) Name Value Range Interpretation Code Description Data Mary rce(s) Supporting Document(s) Glucose, Fasting 119 mg/dL 70-100 Above high normal [facility] Blood Urea Nitrogen 20 mg/dL 7-18 Above high normal [facility] ([facility]) Creatinine For GFR 1.45 mg/dL 0.55-1.30 Above high normal [facility] ([facility]) Sodium Level 143 meq/L 136-145 Normal (applies to non-numeric res ults) [facility] ([facility]) Glomerular Filtration Rate 37.1 Below low normal [facility] ([facility]) <content>Units are mL/min/1.73 m2</content>
<content></content>
<content>Chronic Kidney Disease Staging per NKF:</content>
<content></content>
<content>Stage I & II GFR >=60 Normal to Mildly Decreased</content>
<content>Stage III GFR 30- 59 Moderately Decreased</content>
<content>Stage IV GFR 15-29 Severely Decreased</content>
<content>Stage V GFR <15 Very Little GFR Left</content>
<content>ESRD GFR <15 on GEAR TOOTH GRINDING MACHINE OPERATOR</content>
<content></content> Chloride Level 112 meq/L 98-107 Above high normal [facility] ([facility]) Potassium Serum 3.8 meq/L 3.5-5.1 Normal (applies to non-numeric results) [facility] ([facility]) Carbon Dioxide Level 25 meq/L 21-32 Normal (applies to non-num caren results) [facility] ([facility]) Calcium Level 8.8 mg/dL 8.8-10.2 Normal (applies to non-numeric re sults) [facility] ([facility]) Anion Gap 6 meq/L 8-16 Below low normal [facility] ( [facility]) ID Date Data Source [id number] 01/26/2021 05:53:00 PM EDT [facility] ([facility]) Name Value Range Interpretation Code Description Data Mary rce(s) Supporting Document(s) Osmolality of Serum or Plasma 296 MOSM/KG 280-301 No rmal (applies to non-numeric results) [facility] ([facility]) Thyrotropin [Units/volume] in Serum or Plasma 1.400 uIU/ML 0. 358-3.740 Normal (applies to non-numeric results) [facility] ([facility]) ID Date Data Source [id number] 01/26/2021 05:53:00 PM EDT [facility] ([facility]) Name Value Range Interpretation Code Description Data Mary rce(s) Supporting Document(s) Red Blood Count 3.73 10 4.00-5.40 Below low normal [facility] ([facility]) White Blood Count 19.8 10 4.0-10.0 Above high normal [facility] ([facility]) A Pathologist review of this differentia l can help in the evaluation of a differential diagnosis. Please order a Pathologist Review (PERISM) if deemed necessary. Results are subject to change if a Pathologist Review is performed. Hemoglobin 11.7 g/dL 12.0-15.5 Below low normal [facility] ( [facility]) Hematocrit 36.6 % 36.0-47.0 Normal (applies to non-numeric resul ts) [facility] ([facility]) Mean Corpuscular HGB Conc 32.0 g/dL 32.0-36.5 Normal (applies to non-numeric results) [facility] ([facility]) Mean Corpuscular Volume 98.1 fl 80.0-96.0 Above high normal [facility] ([facility]) Mean Corpuscular Hemoglobin 31.4 pg 27.0-33.0 Norm al (applies to non-numeric results) [facility] ([facility]) Red Cell Distribution Width 13.4 % 11.5-14.5 Norm al (applies to non-numeric results) [facility] ([facility]) Platelet Count, Automated 315 10 150-450 Normal (applies to non-numeric results) [facility] ([facility]) Nucleated Red Blood Cell % 0.0 % 0-0 Normal (applies to n on-numeric results) [facility] ([facility]) ID Date Data Source [id number] 01/26/2021 05:53:00 PM EDT [facility] ([facility]) Name Value Range Interpretation Code Description Data Mary rce(s) Supporting Document(s) Bands 2 % Normal (applies to non-numeric resul ts) [facility] ([facility]) Neutrophils 85 % 28-66 Above high normal [facility] ([facility]) Lymphocytes 6 % 16-44 Below low normal [facility] ([facility]) Monocytes 7 % 0-5 Above high normal [facility] ([facility]) Platelet Clumps Laboratory test result Normal (a pplies to non-numeric results) [facility] ([facility]) ID Date Data Source [id number] 01/26/2021 05:53:00 PM EDT [facility] ([facility]) Name Value Range Interpretation Code Description Data Mary rce(s) Supporting Document(s) Platelets [#/volume] in Blood by Estimate Laboratory test result Normal (applies to non-numeric results) [facility] ([facility]) ID Date Data Source [id number] 01/26/2021 05:53:00 PM EDT [facility] ([facility]) Name Value Range Interpretation Code Description Data Mary rce(s) Supporting Document(s) Appearance, Urine RFX Laboratory test result Nor mal (applies to non-numeric results) [facility] ([facility]) Color, Urine RFX Laboratory test result Normal ( applies to non-numeric results) [facility] ([facility]) Protein, Urine Auto RFX Laboratory test result Above high normal [facility] ([facility]) Specific [place] Ur Auto RFX 1.003 1.002-1.035 Nor mal (applies to non-numeric results) [facility] ([facility]) PH,Urine RFX 7.0 units 5.0-9.0 Normal (applies to non-numeric res ults) [facility] ([facility]) Urobilinogen, Urine Auto RFX 0.2 mg/dL 0.0-2.0 Nor mal (applies to non-numeric results) [facility] ([facility]) Ketone, Urine Auto RFX Laboratory test result No rmal (applies to non-numeric results) [facility] ([facility]) Glucose, Urine (Ua) Auto RFX Laboratory test result Normal (applies to non- numeric results) [facility] ([facility]) Bilirubin, Urine Auto RFX Laboratory test result Normal (applies to non- numeric results) [facility] ([facility]) Nitrite, Urine Auto RFX Laboratory test result N ormal (applies to non-numeric results) [facility] ([facility]) Blood, Urine Blood RFX Laboratory test result Above high n ormal [facility] ([facility]) Leukocyte Esterase Ur Auto RFX Laboratory test result Abov e high normal [facility] ([facility]) WBC, Urine Auto RFX 4 /HPF 0-3 Above high normal [facility] ([facility]) Bacteria, Urine Auto RFX Laboratory test result Above high normal [facility] ([facility]) RBC, Urine Auto RFX 1 /HPF 0-3 Normal (applies to non-nume paula results) [facility] ([facility]) Hyaline Cast, Urine Auto RFX 0 /LPF 0-1 Normal (appl ies to non-numeric results) [facility] ([facility]) Squam Epithelial Cell Ur Aurfx 0 /HPF 0-6 N ormal (applies to non-numeric results) [facility] ([facility]) ID Date Data Source [id number] 01/26/2021 05:53:00 PM EDT [facility]) Name Value Range Interpretation Code Description Data Mary rce(s) Supporting Document(s) Venous PH 7.350 units 7.330-7.430 Normal (applies to non-numeric res ults) [facility] ([facility]) Venous Partial Pressure O2 51.0 mmHg 30.0-50.0 Above high normal [facility] ([facility]) Venous Partial Pressure Co2 46.8 mmHg 38.0-50.0 Norm al (applies to non-numeric results) [facility] ([facility]) Venous Hco3 25.3 meq/L 23.0-27.0 Normal (applies to non-numeric resu lts) [facility] ([facility]) Venous Total Co2 26.7 meq/L 24.0-28.0 Normal (applies to non-numeric results) [facility] ([facility]) Venous Standard Hco3 23.7 meq/L Normal (applies to non-num caren results) [facility] ([facility]) Venous O2 Saturation 86.5 % 60.0-80.0 Above high normal [facility] ([facility]) Venous Base Excess -0.7 Normal (applies to non-numer ic results) [facility] ([facility]) ID Date Data Source [id number] 01/26/2021 05:53:00 PM EDT [facility] ([facility]) Name Value Range Interpretation Code Description Data Mary rce(s) Supporting Document(s) CPK Creatine Phosphokinase 97 U/L 26-192 Samantha l (applies to non-numeric results) [facility] ([facility]) CK-MB Value Mass 1.7 ng/mL Normal (applies to non-numeric results) [facility] ([facility]) MB/CK Relative Index 1.75 Normal (applies to non-num caren results) [facility] ([facility]) <content>DIAGNOSIS CRITERIA</content>
<content>MMB ng/ml Relative Index (RI)</content>
<content>NON-AMI < or = 5 N/A</content>
<content>MANCUSO ZONE > 5 < or = 4</content>
<content>AMI > 5 > 4</content>
<content></content> Troponin I Laboratory test result Normal (applies to non-n umeric results) [facility] ([facility]) <content>Troponin I Reference Interval f or [employer] LOCI:</content>
<content></content>
<content>99th Percentile= 0.00-0.045 ng/ml</content>
<content></content>
<content>Risk Stratification:</content>
<content><= 0.10 ng/ml Decreased Risk for Adverse Clinical</content>
<content>Events.</content>
<content>0.10-1.50 ng/ml Increased Risk for Adverse Clinical</content>
<content>Events. Evaluation of additional</content>
<content>criterion and/or repeat testing in 2-6</content>
<content>hours is suggested to rule out myocardial</content>
<content>damage.</content>
<content>>= 1.50 ng/ml Indicative of Myocardial Injury.</content>
<content></content> ID Date Data Source [id number] 01/23/2021 09:36:46 PM EDT [facility] Name Value Range Interpretation Code Description Data Mary rce(s) Supporting Document(s) LITHIUM 0.69 mmol/L (0.60-1.50) [facility] ID Date Data Source [id number] 01/23/2021 12:00:00 AM EDT [facility] ([facility]) Name Value Range Interpretation Code Description Data Mary rce(s) Supporting Document(s) VENIPUNCTURE VENIPUNCTURE [facility]CW1 ([facility]) ID Date Data Source [id number] w/DIFF 01/23/2021 12:00:00 AM EDT [facility] ([facility]) Name Value Range Interpretation Code Description Data Mary rce(s) Supporting Document(s) 3.86 4.20-6.30 RBC [facility]CW1 ([facility]) 9.4 4.1-10.9 WBC [facility]CW1 ([facility]) 12.0 12.0-18.0 HGB eCW1 ([facility]) 99.5 80.0-97.0 MCV eCW1 ([facility]) 38.4 36.0-51.0 HCT [facility]CW1 ([facility]) 382 140-440 PLT eCW1 ([facility]) 31.3 31.0-36.0 MCHC eCW1 ([facility]) 31.1 26.0-32.0 MCH eCW1 ([facility]) 9.4 7.4-10.4 MPV eCW1 ([facility]) 49.2 36.4-46.3 RDW-SD eCW1 ([facility]) 13.2 11.5-15.5 RDW-CV eCW1 ([facility]) 0.90 0.20-0.90 MONO # eCW1 ([facility]) 2.52 0.60-4.10 LYMPH # eCW1 ([facility]) 0.32 0.00-0.50 EO # eCW1 ([facility]) 5.60 1.60-6.10 NEUT # eCW1 ([facility]) 0.07 0.00-0.10 BASO # eCW1 ([facility]) 26.8 10.0-58.5 LYMPH % eCW1 ([facility]) 59.4 34.0-71.1 NEUT % eCW1 ([facility]) 0.7 0.1-1.2 BASO % eCW1 ([facility]) 9.6 10.0-58.5 MONO % eCW1 ([facility]) 3.4 0.7-7.0 EO % eCW1 ([facility]) 0.10 0.00-0.43 IG% eCW1 ([facility]) 0.01 LOW IG# [facility]CW1 ([facility]) ID Date Data Source [id number] 01/23/2021 12:00:00 AM EDT eCW1 ([facility]) Name Value Range Interpretation Code Description Data Mary rce(s) Supporting Document(s) 71.3 8.2-83.5 PTH,INTACT [facility] ([facility] ID Date Data Source [id number] 01/23/2021 12:00:00 AM EDT [facility]CW1 ([facility]) Name Value Range Interpretation Code Description Data Mary rce(s) Supporting Document(s) 3.7 3.4-5.0 ALBUMIN eCW1 ([facility]) 19 7-18 BUN eCW1 ([facility]) 9.1 8.5-10.1 CALCIUM eCW1 ([facility]) 50.92 >=60.00 GFR NON-AFR.AM [facility] ([facility]) 61.61 >=60.00 GFR AFR.AM [facility]CW[facility] ([facility] 1.1 0.6-1.3 CREATININE eCW1 ([facility] 106 100-108 CHLORIDE eCW1 ([facility]) 4.5 3.6-5.2 POTASSIUM eCW1 ([facility]) 140 135-145 SODIUM eCW1 ([facility]) 7.7 6.4-8.2 TOTAL PROTEIN eCW1 ([facility]) 0.30 0.20-1.00 T BILIRUBIN [facility] 31.2 21.0-32.0 CO2 [facility]CW1 ([facility] 104.0 70.0-110.0 GLUCOSE eCW1 ([facility] 96 46-116 ALPI eCW1 ([facility] 16 15-37 AST eCW1 ([facility] 3 5-15 ANION GAP eCW1 ([facility] 28 30-65 ALTI [facility]CW1 ([facility] ID Date Data Source [id number] 01/01/2021 11:14:00 AM EDT [facility] ([facility]) Name Value Range Interpretation Code Description Data Mary rce(s) Supporting Document(s) Glucose, Fasting 93 mg/dL 70-100 Normal (applies to non-numeric results) [facility] ([facility]) Creatinine For GFR 1.14 mg/dL 0.55-1.30 Normal (applies to non -numeric results) [facility] ([facility]) Blood Urea Nitrogen 19 mg/dL 7-18 Above high normal [facility] ([facility]) Sodium Level 143 meq/L 136-145 Normal (applies to non-numeric res ults) [facility] ([facility]) Potassium Serum 4.8 meq/L 3.5-5.1 Normal (applies to non-numeric results) [facility] ([facility]) Glomerular Filtration Rate 48.9 Normal (applies to n on-numeric results) [facility] ([facility]) <content>Units are mL/min/1.73 m2</content>
<content></content>
<content>Chronic Kidney Disease Staging per NKF:</content>
<content></content>
<content>Stage I & II GFR >=60 Normal to Mildly Decreased</content>
<content>Stage III GFR 30- 59 Moderately Decreased</content>
<content>Stage IV GFR 15-29 Severely Decreased</content>
<content>Stage V GFR <15 Very Little GFR Left</content>
<content>ESRD GFR <15 on GEAR TOOTH GRINDING MACHINE OPERATOR</content>
<content></content> Chloride Level 110 meq/L 98-107 Above high normal [facility] ([facility]) Anion Gap 1 meq/L 8-16 Below low normal [facility] ( [facility]) Carbon Dioxide Level 32 meq/L 21-32 Normal (applies to non-num caren results) [facility] ([facility]) Ast/Sgot 14 U/L 7-37 Normal (applies to non-numeric resul ts) [facility] ([facility]) Calcium Level 9.1 mg/dL 8.8-10.2 Normal (applies to non-numeric re sults) [facility] ([facility]) Alt/SGPT 26 U/L 12-78 Normal (applies to non-numeric resul ts) [facility] ([facility]) Bilirubin,Total 0.3 mg/dL 0.2-1.0 Normal (applies to non-numeric results) [facility] ([facility]) Alkaline Phosphatase 74 U/L 45-117 Normal (applies to non-num caren results) [facility] ([facility]) Total Protein 6.7 GM/DL 6.4-8.2 Normal (applies to non-numeric re sults) [facility] ([facility]) Albumin/Globulin Ratio 1.2 1.2-2.2 Normal (applies to non-n umeric results) [facility] ([facility]) Albumin 3.6 GM/DL 3.2-5.2 Normal (applies to non-numeric resul ts) [facility] ([facility]) ID Date Data Source [id number] 01/01/2021 11:14:00 AM EDT [facility]) Name Value Range Interpretation Code Description Data Mary rce(s) Supporting Document(s) Thyroid Stimulating Hormone 2.280 uIU/ML 0.358-3.740 Norm al (applies to non- numeric results) [facility] ([facility]) Free T4 0.75 ng/dL 0.76-1.46 Below low normal [facility] ( [facility]) ID Date Data Source [id number] 01/01/2021 11:14:00 AM EDT [facility] ([facility]) Name Value Range Interpretation Code Description Data Mary rce(s) Supporting Document(s) Calcidiol [Mass/volume] in Serum or Plasma 61.3 ng/mL 30.0- 100.0 Normal (applies to non-numeric results) [facility] ([facility]) Cobalamin (Vitamin B12) [Mass/volume] in Serum or Plasma 459 pg/ mL 247-911 Normal (applies to non-numeric results) [facility] ([facility]) VITAMIN B12 NORMAL RANGE NORMAL 247 - 911 PG/ML INDETERMINATE 211 - 246 PG/ML DEFICIENT LESS THAN 211 PG/ML ID Date Data Source [id number] 01/01/2021 11:14:00 AM EDT [facility]) Name Value Range Interpretation Code Description Data Mary rce(s) Supporting Document(s) Iron (Fe) 70 ug/dL 50-170 Normal (applies to non-numeric resul ts) [facility] ([facility]) Total Iron Binding Capacity 354 ug/dL 250-450 Norm al (applies to non-numeric results) [facility] ([facility]) Percent Saturation 19.8 % 13.2-45.0 Normal (applies to non-numer ic results) [facility] ([facility]) ID Date Data Source [id number] 01/01/2021 11:14:00 AM EDT [facility] ([facility]) Name Value Range Interpretation Code Description Data Mary rce(s) Supporting Document(s) Ferritin [Mass/volume] in Serum or Plasma 46 ng/mL 8-252 Normal (applies to non- numeric results) [facility] ([facility]) ID Date Data Source [id number] 01/01/2021 11:14:00 AM EDT [facility] ([facility]) Name Value Range Interpretation Code Description Data Mary rce(s) Supporting Document(s) White Blood Count 8.4 10 4.0-10.0 Normal (applies to non-numeri c results) [facility] ([facility]) Hemoglobin 11.7 g/dL 12.0-15.5 Below low normal [facility] ( [facility]) Red Blood Count 3.81 10 4.00-5.40 Below low normal [facility] ([facility]) Hematocrit 38.0 % 36.0-47.0 Normal (applies to non-numeric resul ts) [facility] ([facility]) Mean Corpuscular Hemoglobin 30.7 pg 27.0-33.0 Norm al (applies to non-numeric results) [facility] ([facility]) Mean Corpuscular Volume 99.7 fl 80.0-96.0 Above high normal [facility] ([facility]) Platelet Count, Automated 344 10 150-450 Normal (applies to non-numeric results) [facility] ([facility]) Mean Corpuscular HGB Conc 30.8 g/dL 32.0-36.5 Below low normal [facility] ([facility]) Red Cell Distribution Width 13.6 % 11.5-14.5 Norm al (applies to non-numeric results) [facility] ([facility]) Neutrophils % 53.8 % 36.0-66.0 Normal (applies to non-numeric re sults) [facility] ([facility]) Lymph % 31.0 % 24.0-44.0 Normal (applies to non-numeric resul ts) [facility] ([facility]) Baso % 1.1 % 0.0-1.0 Above high normal [facility] ([facility]) [place] % 9.4 % 2.0-8.0 Above high normal [facility] ([facility]) Eos % 4.3 % 0.0-3.0 Above high normal [facility] ([facility]) Nucleated Red Blood Cell % 0.0 % 0-0 Normal (applies to n on-numeric results) [facility] ([facility]) Immature Granulocyte % 0.4 % 0-3.0 Normal (applies to non-n umeric results) [facility] ([facility]) Neutrophils # 4.6 10 1.5-8.5 Normal (applies to non-numeric re sults) [facility] ([facility]) Lymph # 2.6 10 1.5-5.0 Normal (applies to non-numeric resul ts) [facility] ([facility]) [place] # 0.8 10 0.0-0.8 Normal (applies to non-numeric resul ts) [facility] ([facility]) Eos # 0.4 10 0.0-0.5 Normal (applies to non-numeric resul ts) [facility] ([facility]) Baso # 0.1 10 0.0-0.2 Normal (applies to non-numeric resul ts) [facility]) ID Date Data Source [id number] 11/20/2020 03:44:00 PM EDT [facility]) Name Value Range Interpretation Code Description Data Mary rce(s) Supporting Document(s) [place] [Mass/volume] in Serum or Plasma 0.54 meq/L 0.60-1.20 Below low normal [facility] ([facility]) ID Date Data Source [id number] 09/30/2020 03:53:00 PM EDT [facility]) Name Value Range Interpretation Code Description Data Mary rce(s) Supporting Document(s) Magnesium [Mass/volume] in Serum or Plasma 2.9 mg/dL 1.8-2.4 Above high normal [facility] ([facility]) [place] [Mass/volume] in Serum or Plasma 0.64 meq/L 0.60-1. 20 Normal (applies to non-numeric results) [facility] ([facility]) ID Date Data Source [id number] 06/28/2020 10:43:00 AM EST [facility] ([facility]) Name Value Range Interpretation Code Description Data Mary rce(s) Supporting Document(s) Cobalamin (Vitamin B12) [Mass/volume] in Serum or Plasma 575 pg/ mL 247-911 Normal (applies to non-numeric results) [facility] ([facility]) VITAMIN B12 NORMAL RANGE NORMAL 247 - 911 PG/ML INDETERMINATE 211 - 246 PG/ML DEFICIENT LESS THAN 211 PG/ML Calcidiol [Mass/volume] in Serum or Plasma 49.4 ng/mL 30.0- 100.0 Normal (applies to non-numeric results) [facility] ([facility]) Ferritin [Mass/volume] in Serum or Plasma 96 ng/mL 8-252 Normal (applies to non- numeric results) [facility] ([facility]) ID Date Data Source [id number] 06/28/2020 10:43:00 AM EST [facility] ([facility]) Name Value Range Interpretation Code Description Data Mary rce(s) Supporting Document(s) Iron (Fe) 101 ug/dL 50-170 Normal (applies to non-numeric resul ts) [facility] ([facility]) Total Iron Binding Capacity 332 ug/dL 250-450 Norm al (applies to non-numeric results) [facility] ([facility]) Percent Saturation 30.4 % 13.2-45.0 Normal (applies to non-numer ic results) [facility] ([facility]) ID Date Data Source [id number] 06/28/2020 10:43:00 AM EST [facility] ([facility]) Name Value Range Interpretation Code Description Data Mary rce(s) Supporting Document(s) Thyroid Stimulating Hormone 0.831 uIU/ML 0.358-3.740 Norm al (applies to non- numeric results) [facility] ([facility]) Free T4 0.93 ng/dL 0.76-1.46 Normal (applies to non-numeric resul ts) [facility] ([facility]) ID Date Data Source [id number] 06/28/2020 10:43:00 AM EST [facility] ([facility]) Name Value Range Interpretation Code Description Data Mary rce(s) Supporting Document(s) White Blood Count 8.5 10 4.0-10.0 Normal (applies to non-numeri c results) [facility] ([facility]) Hemoglobin 11.0 g/dL 12.0-15.5 Below low normal [facility] ( [facility]) Red Blood Count 3.62 10 4.00-5.40 Below low normal [facility] ([facility]) Mean Corpuscular Volume 100.3 fl 80.0-96.0 Above high normal [facility] ([facility]) Hematocrit 36.3 % 36.0-47.0 Normal (applies to non-numeric resul ts) [facility] ([facility]) Mean Corpuscular Hemoglobin 30.4 pg 27.0-33.0 Norm al (applies to non-numeric results) [facility] ([facility]) Mean Corpuscular HGB Conc 30.3 g/dL 32.0-36.5 Below low normal [facility] ([facility]) Red Cell Distribution Width 12.7 % 11.5-14.5 Norm al (applies to non-numeric results) [facility] ([facility]) Platelet Count, Automated 407 10 150-450 Normal (applies to non-numeric results) [facility] ([facility]) Lymph % 28.9 % 24.0-44.0 Normal (applies to non-numeric resul ts) [facility] ([facility]) Neutrophils % 56.4 % 36.0-66.0 Normal (applies to non-numeric re sults) [facility] ([facility]) [place] % 9.4 % 0.0-5.0 Above high normal [facility] ([facility]) Eos % 4.3 % 0.0-3.0 Above high normal [facility] ([facility]) Baso % 0.8 % 0.0-1.0 Normal (applies to non-numeric resul ts) [facility] ([facility]) Immature Granulocyte % 0.2 % 0-3.0 Normal (applies to non-n umeric results) [facility] ([facility]) Nucleated Red Blood Cell % 0.0 % 0-0 Normal (applies to n on-numeric results) [facility] ([facility]) Lymph # 2.5 10 1.5-5.0 Normal (applies to non-numeric resul ts) [facility] ([facility]) Neutrophils # 4.8 10 1.5-8.5 Normal (applies to non-numeric re sults) [facility] ([facility]) Eos # 0.4 10 0.0-0.5 Normal (applies to non-numeric resul ts) [facility] ([facility]) [place] # 0.8 10 0.0-0.8 Normal (applies to non-numeric resul ts) [facility] ([facility]) Baso # 0.1 10 0.0-0.2 Normal (applies to non-numeric resul ts) [facility] ([facility]) ID Date Data Source [id number] 06/28/2020 10:43:00 AM EST [facility] ([facility]) Name Value Range Interpretation Code Description Data Mary rce(s) Supporting Document(s) Glucose, Fasting 97 mg/dL 70-100 Normal (applies to non-numeric results) [facility] ([facility]) Blood Urea Nitrogen 19 mg/dL 7-18 Above high normal [facility] ([facility]) Creatinine For GFR 1.25 mg/dL 0.55-1.30 Normal (applies to non -numeric results) [facility]) Glomerular Filtration Rate 44.1 Normal (applies to n on-numeric results) [facility] ([facility]) <content>Units are mL/min/1.73 m2</content>
<content></content>
<content>Chronic Kidney Disease Staging per NKF:</content>
<content></content>
<content>Stage I & II GFR >=60 Normal to Mildly Decreased</content>
<content>Stage III GFR 30- 59 Moderately Decreased</content>
<content>Stage IV GFR 15-29 Severely Decreased</content>
<content>Stage V GFR <15 Very Little GFR Left</content>
<content>ESRD GFR <15 on GEAR TOOTH GRINDING MACHINE OPERATOR</content>
<content></content> Sodium Level 141 meq/L 136-145 Normal (applies to non-numeric res ults) [facility] ([facility]) Chloride Level 106 meq/L 98-107 Normal (applies to non-numeric r esults) [facility] ([facility]) Carbon Dioxide Level 30 meq/L 21-32 Normal (applies to non-num caren results) [facility] ([facility]) Potassium Serum 3.8 meq/L 3.5-5.1 Normal (applies to non-numeric results) [facility] ([facility]) Calcium Level 9.6 mg/dL 8.8-10.2 Normal (applies to non-numeric re sults) [facility] ([facility]) Anion Gap 5 meq/L 8-16 Below low [facility] Alkaline Phosphatase 80 U/L 45-117 Normal (applies to non-num caren results) [facility] ([facility]) Alt/SGPT 29 U/L 12-78 Normal (applies to non-numeric resul ts) [facility] ([facility]) Ast/Sgot 14 U/L 7-37 Normal (applies to non-numeric resul ts) [facility] ([facility]) Bilirubin,Total 0.5 mg/dL 0.2-1.0 Normal (applies to non-numeric results) [facility] ([facility]) Total Protein 7.0 GM/DL 6.4-8.2 Normal (applies to non-numeric re sults) [facility] ([facility]) Albumin 3.7 GM/DL 3.2-5.2 Normal (applies to non-numeric resul ts) [facility] ([facility]) Albumin/Globulin Ratio 1.1 1.2-2.2 Below low normal [facility] ([facility]) ID Date Data Source [id number] 06/02/2020 12:00:00 AM EST [facility] Name Value Range Interpretation Code Description Data Mary rce(s) Supporting Document(s) SARS coronavirus 2 RNA [Presence] in Res piratory specimen by [facility] with probe detection [facility] was ordered by Ham Montesinos and reported by [employer]. ID Date Data Source [id number] 06/02/2020 12:00:00 AM EST [facility] Name Value Range Interpretation Code Description Data Mary rce(s) Supporting Document(s) Carestart Rapid COVID Antigen Test Negative [facility] This lab was reported by Ham [facility] jacey. ID Date Data Source [id number] 05/08/2020 11:00:00 AM EST [facility] ([facility]) Name Value Range Interpretation Code Description Data Mary rce(s) Supporting Document(s) Bacteria identified in Urine by Culture Laboratory test result Normal (applies to non-numeric results) [facility] ([facility]) FULL REPORT IN LAB NOTES ([facility] and [facility] ). NO GROWTH ID Date Data Source [id number] 05/08/2020 11:00:00 AM EST [facility] ([facility]) Name Value Range Interpretation Code Description Data Mary rce(s) Supporting Document(s) Appearance, Urine Laboratory test result Normal (applies to non-numeric results) [facility] ([facility]) Color, Urine Laboratory test result Normal (applies to non -numeric results) [facility] ([facility]) PH,Urine 7.0 units 5.0-9.0 Normal (applies to non-numeric resul ts) [facility] ([facility]) Specific [place] Urine Auto 1.003 1.002-1.035 Norm al (applies to non-numeric results) [facility] ([facility]) Protein, Urine Auto Laboratory test result Samantha l (applies to non-numeric results) [facility] ([facility]) Glucose, Urine (Ua) Auto Laboratory test result Normal (applies to non-numeric results) [facility] ([facility]) Ketone, Urine Auto Laboratory test result Normal (applies to non-numeric results) [facility] ([facility]) Urobilinogen, Urine Auto 0.2 mg/dL 0.0-2.0 Normal (applies to non-numeric results) [facility] ([facility]) Nitrite, Urine Auto Laboratory test result Samantha l (applies to non-numeric results) [facility] ([facility]) Bilirubin, Urine Auto Laboratory test result Nor mal (applies to non-numeric results) [facility] ([facility]) Leukocyte Esterase, Urine Auto Laboratory test result Abov e high normal [facility] ([facility]) Blood, Urine Blood Laboratory test result Normal (applies to non-numeric results) [facility] ([facility]) RBC, Urine Auto 0 /HPF 0-3 Normal (applies to non-numeric results) [facility] ([facility]) WBC, Urine Auto 1 /HPF 0-3 Normal (applies to non-numeric results) [facility] ([facility]) Bacteria, Urine Auto Laboratory test result Norm al (applies to non-numeric results) [facility] ([facility]) Hyaline Cast, Urine Auto 0 /LPF 0-1 Normal (applies to non -numeric results) [facility]) Squamous Epithelial Cell Ur AU 0 /HPF 0-6 N ormal (applies to non-numeric results) [facility] ([facility]) ID Date Data Source [id number] 05/07/2020 04:59:00 PM EST [facility] ([facility]) Name Value Range Interpretation Code Description Data Mary rce(s) Supporting Document(s) Thyroid Stimulating Hormone 1.040 uIU/ML 0.358-3.740 Norm al (applies to non- numeric results) [facility] ([facility]) Free T4 1.02 ng/dL 0.76-1.46 Normal (applies to non-numeric resul ts) [facility] ([facility]) ID Date Data Source [id number] 05/07/2020 04:59:00 PM EST [facility] ([facility]) Name Value Range Interpretation Code Description Data Mary rce(s) Supporting Document(s) Folate Laboratory test result Normal (applies to non-n umeric results) [facility] ([facility]) FOLATE NORMAL RANGE NORMAL GREATER THAN 5.4 NG/ML INDETERMINATE 3.4-5.4 NG/ML DEFICIENT LESS THAN 3.4 NG/ML Vitamin B12 Level 671 pg/mL Normal (applies to non-numeri c results) [facility] ([facility]) VITAMIN B12 NORMAL RANGE NORMAL 247 - 911 PG/ML INDETERMINATE 211 - 246 PG/ML DEFICIENT LESS THAN 211 PG/ML ID Date Data Source [id number] 05/07/2020 04:59:00 PM EST [facility] ([facility]) Name Value Range Interpretation Code Description Data Mary rce(s) Supporting Document(s) [place] [Mass/volume] in Serum or Plasma 0.61 meq/L 0.60-1. 20 Normal (applies to non-numeric results) [facility] ([facility]) ID Date Data Source [id number] 05/07/2020 04:59:00 PM EST [facility] ([facility]) Name Value Range Interpretation Code Description Data Mary rce(s) Supporting Document(s) Bacteria identified in Urine by Culture Laboratory test result [facility] ([facility]) ID Date Data Source [id number] 05/02/2020 12:41:00 PM EST [facility] ([facility]) Name Value Range Interpretation Code Description Data Mary rce(s) Supporting Document(s) Ferritin [Mass/volume] in Serum or Plasma 72 ng/mL 8-252 Normal (applies to non- numeric results) [facility] ([facility]) ID Date Data Source [id number] 05/02/2020 12:41:00 PM EST [facility] ([facility]) Name Value Range Interpretation Code Description Data Mary rce(s) Supporting Document(s) Hptkw-8-Ogrkvjoc % 5.1 % 2.9-4.9 Above high normal [facility] ([facility]) Albumin % 56.7 % 55.8-66.1 Normal (applies to non-numeric resul ts) [facility] ([facility]) Uttxb-7-Udmsegjcb % 12.7 % 7.1-11.8 Above high normal [facility] ([facility]) Jzeu-1-Pxxwqseat % 7.3 % 4.7-7.2 Above high normal [facility] ([facility]) Qyxo-7-Wqpqdakfc % 7.2 % 3.2-6.5 Above high normal [facility] ([facility]) Gamma Globulin % 11.0 % 11.1-18.8 Below low normal [facility] ([facility]) Albumin 4.08 GM/DL 3.29-5.55 Normal (applies to non-numeric resul ts) [facility] ([facility]) Jtnjf-7-Ldrymopwq 0.91 GM/DL 0.42-0.99 Normal (applies to non- numeric results) [facility] ([facility]) Zxfwp-1-Zizrbigmx 0.37 GM/DL 0.17-0.41 Normal (applies to non- numeric results) [facility] ([facility]) Rvex-1-Zgcipkijl 0.53 GM/DL 0.28-0.60 Normal (applies to non-numeric results) [facility] ([facility]) Zfgs-3-Gpudnegwm 0.52 GM/DL 0.19-0.55 Normal (applies to non-numeric results) [facility] ([facility]) Gamma Globulins 0.79 GM/DL 0.65-1.58 Normal (applies to non-numeric results) [facility] ([facility]) Total Protein 7.2 GM/DL 6.4-8.2 Normal (applies to non-numeric re sults) [facility] ([facility]) Laboratory test finding (navigational concept) Laboratory test r esult Normal (applies to non-numeric results) [facility] REV'D BY Efrem LEMOS Spep Interpretation Laboratory test result Samantha l (applies to non-numeric results) [facility] ([facility]) NO M-SPIKE(S)NOTED. ID Date Data Source [id number] 05/02/2020 12:41:00 PM EST [facility] ([facility]) Name Value Range Interpretation Code Description Data Mary rce(s) Supporting Document(s) Laboratory test finding (navigational concept) Laboratory test r esult Normal (applies to non-numeric results) [facility] ([facility]) REV'D BY Efrem LEMOS Laboratory test finding (navigational concept) Laboratory test r esult Normal (applies to non-numeric results) [facility] ([facility]) NO MONOCLONAL BANDS NOTED. ID Date Data Source [id number] 05/02/2020 12:41:00 PM EST [facility] ([facility]) Name Value Range Interpretation Code Description Data Amry rce(s) Supporting Document(s) Iron (Fe) 106 ug/dL 50-170 Normal (applies to non-numeric resul ts) [facility] ([facility]) Percent Saturation 28.2 % 13.2-45.0 Normal (applies to non-numer ic results) [facility] ([facility]) Total Iron Binding Capacity 376 ug/dL 250-450 Norm al (applies to non-numeric results) [facility] ([facility]) ID Date Data Source [id number] 05/02/2020 12:41:00 PM EST [facility] ([facility]) Name Value Range Interpretation Code Description Data Mary rce(s) Supporting Document(s) Lactate dehydrogenase [Enzymatic activit y/volume] in Serum or Plasma by Lactate to pyruvate reaction 210 U/L 84-246 Normal (applies to non-numeric re sults) [facility] ([facility]) ID Date Data Source [id number] 05/02/2020 12:41:00 PM EST [facility] ([facility]) Name Value Range Interpretation Code Description Data Mary rce(s) Supporting Document(s) Glucose, Fasting 75 mg/dL 70-100 Normal (applies to non-numeric results) [facility] ([facility]) Blood Urea Nitrogen 14 mg/dL 7-18 Normal (applies to non-nume paula results) [facility] ([facility]) Creatinine For GFR 1.11 mg/dL 0.55-1.30 Normal (applies to non -numeric results) [facility] ([facility]) Glomerular Filtration Rate 50.6 Normal (applies to n on-numeric results) [facility] ([facility]) <content>Units are mL/min/1.73 m2</content>
<content></content>
<content>Chronic Kidney Disease Staging per NKF:</content>
<content></content>
<content>Stage I & II GFR >=60 Normal to Mildly Decreased</content>
<content>Stage III GFR 30-59 Moderately Decreased</content>
<content>Stage IV GFR 15-29 Severely Decreased</content>
<content>Stage V GFR <15 Very Little GFR Left</content>
<content>ESRD GFR <15 on GEAR TOOTH GRINDING MACHINE OPERATOR</content>
<content></content> Sodium Level 142 meq/L 136-145 Normal (applies to non-numeric res ults) [facility] ([facility]) Potassium Serum 3.9 meq/L 3.5-5.1 Normal (applies to non-numeric results) [facility] ([facility]) Chloride Level 109 meq/L 98-107 Above high normal [facility] ([facility]) Carbon Dioxide Level 31 meq/L 21-32 Normal (applies to non-num caren results) [facility] ([facility]) Anion Gap 2 meq/L 8-16 Below low normal [facility] ( [facility]) Ast/Sgot 14 U/L 7-37 Normal (applies to non-numeric resul ts) [facility] ([facility]) Calcium Level 9.5 mg/dL 8.8-10.2 Normal (applies to non-numeric re sults) [facility] ([facility]) Alt/SGPT 29 U/L 12-78 Normal (applies to non-numeric resul ts) [facility] ([facility]) Alkaline Phosphatase 86 U/L 45-117 Normal (applies to non-num caren results) [facility] ([facility]) Bilirubin,Total 0.3 mg/dL 0.2-1.0 Normal (applies to non-numeric results) [facility] ([facility]) Albumin 3.7 GM/DL 3.2-5.2 Normal (applies to non-numeric resul ts) [facility] ([facility]) Total Protein 7.2 GM/DL 6.4-8.2 Normal (applies to non-numeric re sults) [facility] ([facility]) Albumin/Globulin Ratio 1.1 1.2-2.2 Below low normal [facility] ([facility]) ID Date Data Source [id number] 05/02/2020 12:41:00 PM EST [facility] ([facility]) Name Value Range Interpretation Code Description Data Mary rce(s) Supporting Document(s) Haptoglobin [Mass/volume] in Serum or Plasma 194 mg/dL 42- 346 Normal (applies to non-numeric results) [facility] ([facility]) Performed at: RN - [facility] [place] [id number] Producer Director: Geovanna Stroud MD, Phone: [phone] ID Date Data Source [id number] 05/02/2020 12:41:00 PM EST [facility] ([facility]) Name Value Range Interpretation Code Description Data Mary rce(s) Supporting Document(s) Wero Result Calc Laboratory test result Normal (a pplies to non-numeric results) [facility] ([facility]) ID Date Data Source [id number] 05/02/2020 12:41:00 PM EST [facility] ([facility]) Name Value Range Interpretation Code Description Data Mary rce(s) Supporting Document(s) Reticulocyte % 1.2 % 0.5-1.5 Normal (applies to non-numeric r esults) [facility] ([facility]) Reticulocyte # 46.5 10 17-77 Normal (applies to non-numeric r esults) [facility] ([facility]) Retic Hemoglobin Equivalent 35.5 pg 24-36 Norm al (applies to non-numeric results) [facility] ([facility]) ID Date Data Source [id number] 05/02/2020 12:41:00 PM EST [facility] ([facility]) Name Value Range Interpretation Code Description Data Mary rce(s) Supporting Document(s) White Blood Count 9.5 10 4.0-10.0 Normal (applies to non-numeri c results) [facility] ([facility]) Hemoglobin 12.3 g/dL 12.0-15.5 Normal (applies to non-numeric resul ts) [facility] ([facility]) Red Blood Count 3.95 10 4.00-5.40 Below low normal [facility] ([facility]) Hematocrit 39.3 % 36.0-47.0 Normal (applies to non-numeric resul ts) [facility] ([facility]) Mean Corpuscular Volume 99.5 fl 80.0-96.0 Above high normal [facility] ([facility]) Mean Corpuscular Hemoglobin 31.1 pg 27.0-33.0 Norm al (applies to non-numeric results) [facility] ([facility]) Mean Corpuscular HGB Conc 31.3 g/dL 32.0-36.5 Below low normal [facility] ([facility]) Red Cell Distribution Width 13.1 % 11.5-14.5 Norm al (applies to non-numeric results) [facility] ([facility]) Platelet Count, Automated 434 10 150-450 Normal (applies to non-numeric results) [facility] ([facility]) Neutrophils % 59.8 % 36.0-66.0 Normal (applies to non-numeric re sults) [facility] ([facility]) Lymph % 25.2 % 24.0-44.0 Normal (applies to non-numeric resul ts) [facility] ([facility]) [place] % 10.0 % 0.0-5.0 Above high normal [facility] ([facility]) Eos % 3.7 % 0.0-3.0 Above high normal [facility] ([facility]) Immature Granulocyte % 0.3 % 0-3.0 Normal (applies to non-n umeric results) [facility] ([facility]) Baso % 1.0 % 0.0-1.0 Normal (applies to non-numeric resul ts) [facility] ([facility]) Neutrophils # 5.7 10 1.5-8.5 Normal (applies to non-numeric re sults) [facility] ([facility]) Nucleated Red Blood Cell % 0.0 % 0-0 Normal (applies to n on-numeric results) [facility] ([facility]) Lymph # 2.4 10 1.5-5.0 Normal (applies to non-numeric resul ts) [facility] ([facility]) [place] # 1.0 10 0.0-0.8 Above high normal [facility] ([facility]) Baso # 0.1 10 0.0-0.2 Normal (applies to non-numeric resul ts) [facility] ([facility]) Eos # 0.4 10 0.0-0.5 Normal (applies to non-numeric resul ts) [facility] ([facility]) ID Date Data Source [id number] 04/02/2020 12:00:00 AM EST [facility] Temitope Contreras DO Patient Name: DAYAMI [id number] Date of : [address] Date of Exam: 04/02/2020IKT Montesinos [id number]#: Fax: [phone] EXAM: HIP LEFT UNILATERAL (COMPLETE) [...] described above.TASHA Heller/Juan C you for referring MRUALI SULLIVAN to our office. Electronically Signed - TYREE DELEON DO 04/02/20 16:46 Name Value Range Interpretation Code Description Data Mary rce(s) Supporting Document(s) ID Date Data Source [id number] 02/27/2020 09:04:00 AM EDT [facility] ([facility]) Name Value Range Interpretation Code Description Data Mary rce(s) Supporting Document(s) Natriuretic peptide.B prohormone N-Terminal [Mass/volu me] in Serum or Plasma 140 pg/mL Normal (applies to non-numeric results) [facility] ([facility]) FAX TO [phone] FAX TO [phone] Magnesium [Mass/volume] in Serum or Plasma 2.9 mg/dL 1.8-2.4 Above high normal [facility] ([facility]) FAX TO [phone] FAX TO [phone] Thyrotropin [Units/volume] in Serum or Plasma 1.080 uIU/ML 0. 358-3.740 Normal (applies to non-numeric results) [facility] ([facility]) FAX TO [phone] FAX TO [phone] ID Date Data Source [id number] 02/27/2020 09:04:00 AM EDT [facility] ([facility]) Name Value Range Interpretation Code Description Data Mary rce(s) Supporting Document(s) Glucose, Fasting 86 mg/dL 70-100 Normal (applies to non-numeric results) [facility] ([facility]) Blood Urea Nitrogen 15 mg/dL 7-18 Normal (applies to non-nume paula results) [facility] Sodium Level 144 meq/L 136-145 Normal (applies to non-numeric res ults) [facility] Glomerular Filtration Rate 54.0 Normal (applies to n on-numeric results) [facility] ([facility]) <content>Units are mL/min/1.73 m2</content>
<content></content>
<content>Chronic Kidney Disease Staging per NKF:</content>
<content></content>
<content>Stage I & II GFR >=60 Normal to Mildly Decreased</content>
<content>Stage III GFR 30- 59 Moderately Decreased</content>
<content>Stage IV GFR 15-29 Severely Decreased</content>
<content>Stage V GFR <15 Very Little GFR Left</content>
<content>ESRD GFR <15 on GEAR TOOTH GRINDING MACHINE OPERATOR</content>
<content></content> Creatinine For GFR 1.05 mg/dL 0.55-1.30 Normal (applies to non -numeric results) [facility] ([facility]) Chloride Level 109 meq/L 98-107 Above high normal [facility] ([facility]) Potassium Serum 4.6 meq/L 3.5-5.1 Normal (applies to non-numeric results) [facility] ([facility]) Carbon Dioxide Level 31 meq/L 21-32 Normal (applies to non-num caren results) [facility] ([facility]) Anion Gap 4 meq/L 8-16 Below low normal [facility] ( [facility]) Calcium Level 8.9 mg/dL 8.8-10.2 Normal (applies to non-numeric re sults) [facility] ([facility]) Alt/SGPT 24 U/L 12-78 Normal (applies to non-numeric resul ts) [facility] ([facility]) Ast/Sgot 15 U/L 7-37 Normal (applies to non-numeric resul ts) [facility] Alkaline Phosphatase 82 U/L 45-117 Normal (applies to non-num caren results) [facility] ([facility]) Total Protein 6.8 GM/DL 6.4-8.2 Normal (applies to non-numeric re sults) [facility] ([facility]) Bilirubin,Total 0.3 mg/dL 0.2-1.0 Normal (applies to non-numeric results) [facility] ([facility]) Albumin/Globulin Ratio 1.1 1.2-2.2 Below low normal [facility] ([facility]) Albumin 3.5 GM/DL 3.2-5.2 Normal (applies to non-numeric resul ts) [facility] ([facility]) ID Date Data Source [id number] 02/27/2020 09:04:00 AM EDT [facility] ([facility]) Name Value Range Interpretation Code Description Data Mary rce(s) Supporting Document(s) Red Blood Count 3.48 10 4.00-5.40 Below low normal [facility] ([facility]) White Blood Count 8.8 10 4.0-10.0 Normal (applies to non-numeri c results) [facility] ([facility]) Mean Corpuscular Volume 100.3 fl 80.0-96.0 Above high normal [facility] ([facility]) Hematocrit 34.9 % 36.0-47.0 Below low normal [facility] ( [facility]) Hemoglobin 10.6 g/dL 12.0-15.5 Below low normal [facility] Mean Corpuscular Hemoglobin 30.5 pg 27.0-33.0 Norm al (applies to non-numeric results) [facility] ([facility]) Mean Corpuscular HGB Conc 30.4 g/dL 32.0-36.5 Below low normal [facility] ([facility]) Red Cell Distribution Width 13.5 % 11.5-14.5 Norm al (applies to non-numeric results) [facility] ([facility]) Platelet Count, Automated 357 10 150-450 Normal (applies to non-numeric results) [facility] ([facility]) Lymph % 28.9 % 24.0-44.0 Normal (applies to non-numeric resul ts) [facility] ([facility]) Neutrophils % 56.1 % 36.0-66.0 Normal (applies to non-numeric re sults) [facility] ([facility]) Baso % 1.1 % 0.0-1.0 Above high normal [facility] ([facility]) Eos % 2.8 % 0.0-3.0 Normal (applies to non-numeric resul ts) [facility] ([facility]) [place] % 10.9 % 0.0-5.0 Above high normal [facility] ([facility]) Immature Granulocyte % 0.2 % 0-3.0 Normal (applies to non-n umeric results) [facility] ([facility]) Nucleated Red Blood Cell % 0.0 % 0-0 Normal (applies to n on-numeric results) [facility] ([facility]) Neutrophils # 4.9 10 1.5-8.5 Normal (applies to non-numeric re sults) [facility] ([facility]) [place] # 1.0 10 0.0-0.8 Above high normal [facility] ([facility]) Lymph # 2.5 10 1.5-5.0 Normal (applies to non-numeric resul ts) [facility] ([facility]) Eos # 0.3 10 0.0-0.5 Normal (applies to non-numeric resul ts) [facility] ([facility]) Baso # 0.1 10 0.0-0.2 Normal (applies to non-numeric resul ts) [facility] ([facility]) Procedure Social History Code Duration Value Status Description Data Source(s ) Smoking 02/24/2021 12:00:00 AM EDT Patient has never smoked co mpleted Patient has never smoked [facility] ([facility]) Smoking 01/23/2021 12:00:00 AM EDT Never Smoker completed Never S mihaela eCW1 ([facility]) Smoking 01/23/2021 12:00:00 AM EDT Never Smoker completed Never S mihaela eCW1 ([facility]) Vital Signs ID Date Data Source UNK Name Value Range Interpretation Code Description Data Source(s) [place] body weight 100 [lb_av] 100 [lb_av] [facility] ([facility]) Oxygen saturation in Arterial blood by Pulse oximetry 96 % 96 % [facility] Systolic blood pressure 126 mm[Hg] 126 mm[Hg] M [facility] ([facility]) Diastolic blood pressure 76 mm[Hg] 76 mm[Hg] [facility] ([facility]) Body height 59.6 [in_i] 59.6 [in_i] [facility] ([facility]) 4'11.60" Body weight 154.00 [lb_av] 154.00 [lb_av] [facility] ([facility]) Body mass index (BMI) [Ratio] 30.5 kg/m2 30.5 k g/m2 [facility] ([facility]) Heart rate 67 /min 67 /min [facility] ([facility]) Respiratory rate 20 /min 20 /min [facility] ( [facility]) Body temperature 98.5 [degF] 98.5 [degF] [facility] ([facility]) [place] body weight 110 [lb_av] 110 [lb_av] [facility] ([facility]) Body weight 70.903 kg 70.903 kg [facility] ([facility]) Systolic blood pressure 152 mm[Hg] 152 mm[Hg] [facility] Body temperature 98.3 [degF] 98.3 [degF] [facility] ([facility]) Body height 62 [in_i] 62 [in_i] [facility] ([facility]) 5'2" Body weight 156.31 [lb_av] 156.31 [lb_av] [facility] ([facility]) Body mass index (BMI) [Ratio] 28.6 kg/m2 28.6 k g/m2 [facility] ([facility]) Body surface area Derived from formula 1.72 m2 1.72 m2 [facility] ([facility]) Diastolic blood pressure 74 mm[Hg] 74 mm[Hg] [facility] ([facility] ) Diastolic blood pressure 70 mm[Hg] 70 mm[Hg] [facility] ([facility]) Body height 59.6 [in_i] 59.6 [in_i] [facility] ([facility]) " Body weight 156.38 [lb_av] 156.38 [lb_av] [facility] ([facility]) Systolic blood pressure 120 mm[Hg] 120 mm[Hg] M [facility] ([facility]) Body mass index (BMI) [Ratio] 30.9 kg/m2 30.9 k g/m2 [facility] ([facility]) Heart rate 99 /min 99 /min [facility] ([facility]) Respiratory rate 12 /min 12 /min [facility] ( [facility]) Body temperature 98.0 [degF] 98.0 [degF] [facility] ([facility]) Oxygen saturation in Arterial blood by Pulse oximetry 99 % 99 % [facility] ([facility]) [place] body weight 100 [lb_av] 100 [lb_av] [facility] ([facility]) Body weight 156.25 [lb_av] 156.25 [lb_av] [facility] ([facility]) Body mass index (BMI) [Ratio] 30.9 kg/m2 30.9 k g/m2 [facility] ([facility]) Heart rate 99 /min 99 /min [facility] ([facility]) Respiratory rate 18 /min 18 /min [facility] ( [facility]) Body temperature 98.6 [degF] 98.6 [degF] [facility] ([facility]) Oxygen saturation in Arterial blood by Pulse oximetry 96 % 96 % [facility] ([facility]) Systolic blood pressure 128 mm[Hg] 128 mm[Hg] M [facility] ([facility]) Diastolic blood pressure 72 mm[Hg] 72 mm[Hg] [facility] ([facility]) Body height 59.6 [in_i] 59.6 [in_i] [facility] ([facility]) " [place] body weight 100 [lb_av] 100 [lb_av] [facility] ([facility]) Body weight 155.0 [lb_av] 155.0 [lb_av] eCW1 ([facility]) Body height 61.5 [in_i] 61.5 [in_i] eCW1 ([facility]) Body mass index (BMI) [Ratio] 28.81 kg/m2 28.81 kg/m2 eCW1 ([facility]) Oxygen saturation in Arterial blood by Pulse oximetry 99 % 99 % eCW1 ([facility]) Heart rate 76 /min 76 /min eCW1 ([facility]) Body temperature 99.1 [degF] 99.1 [degF] [facility] ([facility]) Systolic blood pressure 132 mm[Hg] 132 mm[Hg] M [facility] ([facility]) Diastolic blood pressure 68 mm[Hg] 68 mm[Hg] [facility] ([facility]) Body height 59.6 [in_i] 59.6 [in_i] [facility] ([facility]) 4'11.60" Body weight 154.12 [lb_av] 154.12 [lb_av] [facility] ([facility]) Body mass index (BMI) [Ratio] 30.5 kg/m2 30.5 k g/m2 [facility] ([facility]) Heart rate 78 /min 78 /min [facility] ([facility]) Respiratory rate 18 /min 18 /min [facility] ( [facility]) Oxygen saturation in Arterial blood by Pulse oximetry 97 % 97 % [facility] ([facility]) [place] body weight 100 [lb_av] 100 [lb_av] [facility] ([facility]) Body weight 150.38 [lb_av] 150.38 [lb_av] [facility] ([facility]) Body mass index (BMI) [Ratio] 29.8 kg/m2 29.8 k g/m2 [facility] ([facility]) Oxygen saturation in Arterial blood by Pulse oximetry 97 % 97 % [facility] ([facility]) [place] body weight 100 [lb_av] 100 [lb_av] [facility] ([facility]) Systolic blood pressure 148 mm[Hg] 148 mm[Hg] M [facility] ([facility]) Diastolic blood pressure 80 mm[Hg] 80 mm[Hg] [facility] Body height 59.6 [in_i] 59.6 [in_i] [facility]) 4'11.60" Heart rate 81 /min 81 /min [facility] ([facility]) Body temperature 98.5 [degF] 98.5 [degF] [facility] ([facility]) Systolic blood pressure 125 mm[Hg] 125 mm[Hg] [facility]) Diastolic blood pressure 72 mm[Hg] 72 mm[Hg] [facility], [facility]) Heart rate 84 /min 84 /min [facility] ([facility], [facility]) Respiratory rate 16 /min 16 /min [facility] ( [facility], [facility]) Oxygen saturation in Arterial blood by Pulse oximetry 99 % 99 % [facility] ([facility], [facility]) Body temperature 98.4 [degF] 98.4 [degF] [facility]) Body weight 150.00 [lb_av] 150.00 [lb_av] [facility] T ([facility], [facility]) Body height 61 [in_i] 61 [in_i] [facility], [facility]) 5'1" Body mass index (BMI) [Ratio] 28.3 kg/m2 28.3 k g/m2 [facility] ([facility], [facility]) Systolic blood pressure 132 mm[Hg] 132 mm[Hg] M [facility] ([facility]) [place] body weight 100 [lb_av] 100 [lb_av] [facility] ([facility]) Diastolic blood pressure 74 mm[Hg] 74 mm[Hg] [facility] ([facility]) Body height 59.6 [in_i] 59.6 [in_i] [facility] " Body weight 150.50 [lb_av] 150.50 [lb_av] [facility] ([facility]) Body mass index (BMI) [Ratio] 29.8 kg/m2 29.8 k g/m2 [facility] ([facility]) Heart rate 90 /min 90 /min [facility] ([facility]) Respiratory rate 18 /min 18 /min [facility] ( [facility]) Body temperature 98.4 [degF] 98.4 [degF] [facility] ([facility]) Oxygen saturation in Arterial blood by Pulse oximetry 98 % 98 % [facility] ([facility]) Heart rate 84 /min 84 /min [facility] ([facility]) Body mass index (BMI) [Ratio] 28.9 kg/m2 28.9 k g/m2 [facility] ([facility]) Body height 59.6 [in_i] 59.6 [in_i] [facility] ([facility]) " Systolic blood pressure 122 mm[Hg] 122 mm[Hg] M [facility] ([facility]) Diastolic blood pressure 82 mm[Hg] 82 mm[Hg] [facility] ([facility]) Respiratory rate 20 /min 20 /min [facility] ( [facility]) Body temperature 97.3 [degF] 97.3 [degF] [facility] ([facility]) Oxygen saturation in Arterial blood by Pulse oximetry 99 % 99 % [facility] ([facility]) Body weight 146.00 [lb_av] 146.00 [lb_av] [facility] ([facility]) [place] body weight 100 [lb_av] 100 [lb_av] [facility] ([facility]) Systolic blood pressure 140 mm[Hg] 140 mm[Hg] [facility] ([facility]) Diastolic blood pressure 74 mm[Hg] 74 mm[Hg] [facility] ([facility]) [place] body weight 100 [lb_av] 100 [lb_av] [facility] ([facility]) Body height 59.6 [in_i] 59.6 [in_i] [facility] ([facility]) " Body weight 150.38 [lb_av] 150.38 [lb_av] [facility] ([facility]) Body mass index (BMI) [Ratio] 29.8 kg/m2 29.8 k g/m2 [facility] ([facility]) Heart rate 103 /min 103 /min [facility] ([facility]) Respiratory rate 14 /min 14 /min [facility] ( [facility]) Body temperature 98.3 [degF] 98.3 [degF] [facility] ([facility]) Oxygen saturation in Arterial blood by Pulse oximetry 97 % 97 % [facility] ([facility]) Oxygen saturation in Arterial blood by Pulse oximetry 99 % 99 % [facility] ([facility]) Body mass index (BMI) [Ratio] 30.3 kg/m2 30.3 k g/m2 [facility] ([facility]) Heart rate 96 /min 96 /min [facility] ([facility]) Body height 59.6 [in_i] 59.6 [in_i] [facility] ([facility]) " Body weight 153.00 [lb_av] 153.00 [lb_av] [facility] ([facility]) Respiratory rate 18 /min 18 /min [facility] ( [facility]) Body temperature 98.3 [degF] 98.3 [degF] [facility] ([facility]) [place] body weight 100 [lb_av] 100 [lb_av] [facility] ([facility]) Systolic blood pressure 144 mm[Hg] 144 mm[Hg] [facility] ([facility]) Diastolic blood pressure 68 mm[Hg] 68 mm[Hg] [facility] ([facility]) Systolic blood pressure 124 mm[Hg] 124 mm[Hg] [facility] ([facility]) Diastolic blood pressure 72 mm[Hg] 72 mm[Hg] [facility] ([facility]) Body height 59.6 [in_i] 59.6 [in_i] [facility] ([facility]) " Heart rate 88 /min 88 /min [facility] ([facility]) Respiratory rate 18 /min 18 /min [facility] ( [facility]) Body temperature 98.3 [degF] 98.3 [degF] [facility] ([facility]) Oxygen saturation in Arterial blood by Pulse oximetry 97 % 97 % [facility] ([facility]) [place] body weight 100 [lb_av] 100 [lb_av] [facility] ([facility]) Diastolic blood pressure 80 mm[Hg] 80 mm[Hg] [facility] ([facility]) Systolic blood pressure 128 mm[Hg] 128 mm[Hg] [facility] ([facility]) Body height 59.6 [in_i] 59.6 [in_i] [facility] ([facility]) " [place] body weight 100 [lb_av] 100 [lb_av] [facility] ([facility]) Body weight 150.50 [lb_av] 150.50 [lb_av] [facility] ([facility]) Body mass index (BMI) [Ratio] 29.8 kg/m2 29.8 k g/m2 [facility] ([facility]) Heart rate 89 /min 89 /min [facility] ([facility]) Respiratory rate 16 /min 16 /min [facility] ( [facility]) Body temperature 97.6 [degF] 97.6 [degF] [facility] ([facility]) Oxygen saturation in Arterial blood by Pulse oximetry 96 % 96 % [facility] ([facility]) Patient Treatment Plan of Care Planned Activity Planned Date Details Description Data Source (s) Amphetamine aspartate 5 MG / Amphetamine Sulfate 5 MG / Dextroamphetamine saccharate 5 MG / Dextroamphetamine Sulfate 5 MG Oral Tablet [Adderall] 10/24/2020 12:00:00 AM EDT eCW1 ([facility]) Amphetamine aspartate 5 MG / Amphetamine Sulfate 5 MG / Dextroamphetamine saccharate 5 MG / Dextroamphetamine Sulfate 5 MG Oral Tablet [Adderall] 07/23/2020 12:00:00 AM EST eCW1 ([facility])
[2021-04-04 14:00] VITALS: BP 171/77
[2021-04-04] MEDS ORDERED: ACETAMINOPHEN TAB 650MG DOSE (2X325MG) PO PRN (14:30)
[2021-04-04] MEDS ORDERED: MIRALAX *UNIT DOSE* 17GM PACKET PO PRN (14:30)
[2021-04-04] MEDS ORDERED: SIMETHICONE 80MG CHEW TAB PO PRN (14:30)
--- NOTE | 2021-04-04 14:38 | HPEPDOC ---
Sample Processor Note DATE OF ADMISSION: 04-04-21 DATE OF SERVICE: 04-04-21 TIME OF ADMISSION: Please refer to physician's admission order. SOURCE OF ADMISSION INFORMATION: [facility] record and patient CHIEF COMPLAINT: debility related to UTI and electrolyte abnormalities HISTORY OF PRESENT ILLNESS: 80F pmh Hypothyroidism, HTN, Bipolar, breast cancer s/p lumpectomy recent hospital admission for diarrhea where she was noted to have a +FOBT and is scheduled for endoscopy with general surgery in early April, presented to [facility] ED on 04-02-21 complaining of weakness, multiple falls at home and was admitted with for a UTI, hypokalemia, and hypernatremia. She was given IVF and continued on antibiotics. CT Chest was performed showing multiple incidental nodules with recommendations to follow-up with PET scan. She was noted to have mobility and ADL impairments in therapy and deemed medically appropriate for discharge to ARU. REVIEW OF SYSTEMS: The following is a completed review of systems and has been reviewed. Review of systems otherwise unremarkable. PAIN: Patient self reports no pain EYES: [No recent vision changes EARS, NOSE, & THROAT: No throat pain, or dysphagia, or rhinorrhea CARDIOVASCULAR: Denies chest pain or palpitations PULMONARY: Denies shortness of breath GASTROINTESTINAL: Denies constipation/diarrhea GENITOURINARY: denies dysuria MUSCULOSKELETAL: generalized weakness NEUROLOGICAL:denies paresthesias HEMATOLOGICAL: denies easy bruising SKIN: denies rash PSYCHIATRIC: Unremarkable All other review of systems found to be negative. PAST MEDICAL HISTORY: as per HPI PAST SURGICAL HISTORY: as per hpi, partial hysterectomy, loop recorder ALLERGIES: Please see below. MEDICATIONS: Please see below. FAMILY HISTORY: Cardiac SOCIAL HISTORY: No etoh/illicit drugs/smoking DIET: low sodium PHYSICAL EXAMINATION: VITAL SIGNS: Please see below. GENERAL: Pleasant and cooperative. No acute distress. HEENT: PERRL. Extraocular movements intact. Clear conjunctiva CARDIOVASCULAR: Regular rate and rhythm. No murmurs, rubs, or gallops LUNGS: Clear to auscultation bilaterally. No wheezes. No rhonchi ABDOMEN: Soft, nontender, nondistended. Positive bowel sounds. Normal active bowel sounds NEUROLOGICAL: Alert and oriented times three. Cranial nerves II through XII grossly intact. Sensation grossly intact EXTREMITIES: 5-/5 strength bilateral upper extremities.5-\5 strength right lower extremity. 5-/5 strength in left lower extremity. +bilat LE edema LABORATORY DATA: Please see below. IMAGING: Imaging documentation personally reviewed by record FUNCTIONAL STATUS: Premorbid: Independent with all activities of daily life as well as mobility On Admission: Contact Guard-Min Assist for bed mobility, functional transfers, ambulation, dressing, toileting GOALS: Mod-I for bed mobility, functional transfers, ambulation, dressing, toileting, bathing, IADLs ASSESSMENT:80-year-old F with past medical history of bipolar, HTN who presents with debility in setting of UTI and electrolyte abnormalities PLAN: 1. REhab- PT/OT advance mobility and ADls, strengthen/stretch/maintain ROM all 4limbs, balance training, endurance, fall recovery 2. Cardiac- Hx of HTN cont bP meds, adjust prn -patient with LE edema will start low dose aldactone (unable to use l asix/thiazide due to drug interactions with her psych meds) 3. Resp- monitor for infection, encourage incentive spirometry -will refer to oncology for incidental lung nodules seen on recent CT Chest 4. Endo- h xof hypothyroidism cont synthroid 5. Psych- hx of bipolar cont lamotrigine, lithium, Adderall, lurasidone 6. GI- recent +FOBT cont sucralfate and protonix, patient has seen gen surg and has f/u on 04-24-21 for endoscopy -monitor h/h 7. DVT ppx- heparin 8. Pain- tylenol prn 9. - patient was started on kelfex outpatient for UTI, repeat UA negative, patient asymptomatic, will d/c 10. Hypernatremia- resolved, will monitor -hypokalemia also resolved, will monitor 11.Dispo- date TBD, patient reports she has bed reserved her at the [facility] 12. PAtient signed MOLST and wishes to be DNR/I POST ADMISSION PHYSICIAN EVALUATION: Medical and functional status: Description of medical status, medical assessment: As above. Rehabilitation diagnosis and current and prior cold morbid medical conditions as above. Risk of complications and plans to mitigate them as above. Description of functional status current status is as above. Prior status as above. Status compared to preadmission: There are no clinically significant differences between the patient's current status and the information described on the preadmission screening document. Treatment plan anticipated: Treatment plan is as described above. Required disciplines including physical therapy, occupational therapy, others as noted above Intensity of services: 3 hours a day, days a week. Special considerations: There are no specific special or safety considerations that would likely preclude immediate implementation of an intensive rehabilitation program or subsequently influence the plan of care ATTESTATION: Considering all the information above, it is my best judgment that this patient requires intensive rehabilitation therapy as described above and an inpatient hospital environment due to the complexity of nursing, medical, and rehabilitation needs required by the patient. Furthermore, this patient can reasonably be expected to participate in an benefit from an inpatient rehabilitation stay with an interdisciplinary team approach to the delivery of rehabilitation care under the direction and supervision of rehabilitation physician. PROGNOSIS: good ESTIMATED LENGTH OF STAY:10-14 days. PROJECTED DISCHARGE DESTINATION: Home /[employer] with family support and any durable medical equipment required to increase functional safety and mobility. TIME SPENT COUNSELING AND COORDINATING INITIAL CARE: Greater than 70 minutes. Vital Signs Vital Sign - Last 24 Hours 04/04/21 12:50 Temp 98.5 Pulse 83 Resp 18 B/P (MAP) 173/79 (110) Pulse Ox 98 O2 Delivery Room Air Home Medications Scheduled Amlodipine Besylate (Norvasc) 10 Mg Tablet, 10 MG PO DAILY, (Reported) Dextroamphetamine/Amphetamine (Adderall 20 mg Tablet) 20 Mg Tablet, 20 MG PO DAILY, (Reported) Ergocalciferol (Vitamin D2) (Vitamin D2) 50,000 Units Cap, 50,000 UNITS PO QWEEK, (Reported) SATURDAYS L.acidoph/L.bulg/B.bif/S.therm (Bacid Caplet) 1 Each Tablet, 1 TAB PO TID, (Reported) Lamotrigine (Lamotrigine) 150 Mg Tablet, 225 MG PO DAILY, (Reported) Levothyroxine Sodium (Synthroid) 50 Mcg Tablet, 50 MCG PO DAILY, (Reported) [place] Carbonate ([place] Carbonate) 300 Mg Capsule, 300 MG PO QHS, (Reported) Lurasidone Hydrochloride (Latuda) 40 Mg Tablet, 40 MG PO QPM, (Reported) TAKES AT DINNERTIME Magnesium Oxide (Magnesium) 400 Mg Capsule, 400 MG PO QHS, (Reported) Pantoprazole Sodium (Pantoprazole Sodium) 40 Mg Tablet.dr, 40 MG PO DAILY, (Reported) Sucralfate (Sucralfate) 1 Gm Tablet, 1 GM PO ACHS, (Reported) Vilazodone HCl (Viibryd) 40 Mg Tablet, 40 MG PO DAILY, (Reported) Vitamin B Complex (Vitamin B Complex) 1 Each Tablet, 1 TAB PO Q2D, (Reported) [Cephalexin Monohydrate] 250 MG CAP, 250 MG PO Q6H Allergies Coded Allergies: bee venom protein (honey bee) (Verified Allergy, Intermediate, swelling, 03/31/21) doxycycline (Verified Allergy, Intermediate, itch, 03/31/21) Sulfa (Sulfonamide Antibiotics) (Verified Allergy, Unknown, 03/31/21) A-FIB/CHADSVASC A-FIB History Current/History of A-Fib/PAF?: No Current PO Anticoag Therapy: No DERICK MACIAS MD Apr 04, 2021 14:38
[2021-04-04] MEDS: REMEDY PHYTOPLEX Z-GUARD PASTE 113GM TUBE (FROM STOREROOM PRODUCT) TOP SCH ×2 (16:00→21:00)
[2021-04-04] MEDS: LACTOBACILLUS ACIDOPHILUS CAP (BACID) PO SCH ×2 (17:35→21:01)
[2021-04-04] MEDS: SPIRONOLACTONE 12.5MG PER 1/2 TABLET PO SCH (17:35)
[2021-04-04] MEDS: SUCRALFATE 1 GM TAB PO SCH ×2 (17:35→21:01)
[2021-04-04] MEDS: POLYVINYL ALCOHOL OPHTH SOLN 15 ML(LIQUITEARS) OU SCH ×2 (17:35→21:03)
[2021-04-04] MEDS: LURASIDONE HCL 40 MG TAB (LATUDA) PO SCH (19:37)
[2021-04-04 19:48] VITALS: BP 170/72
[2021-04-04] MEDS ORDERED: HOME MED LIST COMPLETE! XX SCH (20:30)
[2021-04-04] MEDS: HEPARIN SOD (PORCINE) 5000UNITS/ML 1ML VIAL/SYRINGE SC SCH (21:01)
[2021-04-04] MEDS: LITHIUM CARBONATE 300 MG CAP PO SCH (21:02)
[2021-04-04 21:11] VITALS: BP 140/72
[2021-04-05 05:42] VITALS: BP 158/74
[2021-04-05] MEDS: LEVOTHYROXINE 50MCG TABLET (0.05MG) PO SCH (05:58)
[2021-04-05 07:02] LABS: BASO # 0.1 10^3/uL (0.0-0.2); BASO % 0.8 % (0.0-1.0); EOS # 0.5 10^3/uL (0.0-0.5); EOS % 5.6 % (0.0-3.0); HEMATOCRIT 33.1 % (36.0-47.0); HEMOGLOBIN 10.2 g/dl (12.0-15.5); LYMPH % 35.9 % (24.0-44.0); MEAN CORPUSCULAR HEMOGLOBIN 30.3 pg (27.0-33.0); MEAN CORPUSCULAR HGB CONC 30.8 g/dl (32.0-36.5); MEAN CORPUSCULAR VOLUME 98.2 fl (80.0-96.0); MONO % 11.3 % (2.0-8.0); NEUTROPHILS # 3.9 10^3/uL (1.5-8.5); NEUTROPHILS % 46.2 % (36.0-66.0); PLATELET COUNT, AUTOMATED 360 10^3/uL (150-450); RED BLOOD COUNT 3.37 10^6/uL (4.00-5.40); WHITE BLOOD COUNT 8.4 10^3/uL (4.0-10.0)
[2021-04-05 07:34] LABS: ALBUMIN 2.9 GM/DL (3.2-5.2); BILIRUBIN,TOTAL 0.2 MG/DL (0.2-1.0); CALCIUM LEVEL 9.2 MG/DL (8.8-10.2); CREATININE FOR GFR 0.96 MG/DL (0.55-1.30); GLOMERULAR FILTRATION RATE 59.7 (>39); POTASSIUM SERUM 3.6 MEQ/L (3.5-5.1); TOTAL PROTEIN 6.1 GM/DL (6.4-8.2)
[2021-04-05] MEDS: SUCRALFATE 1 GM TAB PO SCH ×4 (07:42→20:38)
[2021-04-05] MEDS: VITAMIN B COMPLEX/VIT C CAP PO SCH (07:43)
[2021-04-05] MEDS: lamoTRIgine 100MG TAB PO SCH (07:43)
[2021-04-05] MEDS: PANTOPRAZOLE 40MG TAB (PROTONIX) PO SCH (07:44)
[2021-04-05] MEDS: lamoTRIgine 25MG TAB PO SCH (07:44)
[2021-04-05] MEDS: LACTOBACILLUS ACIDOPHILUS CAP (BACID) PO SCH ×4 (07:44→20:39)
[2021-04-05] MEDS: MAGNESIUM OXIDE 400MG TAB (MAG-OX) PO SCH (07:44)
[2021-04-05] MEDS: VITAMIN D 1,000 INTERNATIONAL UNITS TABLET PO SCH (07:45)
[2021-04-05] MEDS: SPIRONOLACTONE 12.5MG PER 1/2 TABLET PO SCH (07:45)
[2021-04-05] MEDS: HEPARIN SOD (PORCINE) 5000UNITS/ML 1ML VIAL/SYRINGE SC SCH ×2 (07:45→20:38)
[2021-04-05] MEDS: ADDERALL 5 MG TAB PO SCH (07:45)
[2021-04-05] MEDS: POLYVINYL ALCOHOL OPHTH SOLN 15 ML(LIQUITEARS) OU SCH ×3 (07:46→20:39)
[2021-04-05] MEDS: REMEDY PHYTOPLEX Z-GUARD PASTE 113GM TUBE (FROM STOREROOM PRODUCT) TOP SCH ×3 (07:46→20:39)
[2021-04-05 12:00] VITALS: BP 120/82
[2021-04-05 14:00] VITALS: BP 156/69
[2021-04-05] MEDS: **hydrALAZINE HCL** 25 MG TAB PO PRN (14:28)
--- NOTE | 2021-04-05 16:01 | IPNPDOC ---
Text Note Date of Service The patient was seen on 04/05/21. NOTE Subjective: Patient is a 80-year-old female presented initially to the emergency department after multiple falls. Patient was discharged from the medical floor yesterday, 04/04/2021 to the acute rehab unit. Patient states that she was doing well in the acute rehab and is the best she has felt since she has been hospitalized. Patient states she had a nice shower and has been up out of bed with physical and occupational therapy and this has been going well so far. Patient was eating lunch when I arrived in the room and stated this was going well. Patient not have any complaints at this time. Review of systems: General: Patient denies fevers HEENT: Patient denies headaches Cardiovascular: Patient denies chest pain Respiratory: Patient denies shortness of breath, cough GI: Patient denies abdominal pain, nausea, vomiting, diarrhea : Patient denies increased frequency or pain with urination Extremities: Patient denies swelling or pain in extremities Neurological: Patient denies numbness or tingling in legs Physical exam: Vitals: See below General: Alert and oriented female patient was sitting the bedside chair eating lunch when I walked in the room. Patient not appear to be in any acute distress. HEENT: Normocephalic, atraumatic, moist mucous membranes. Neck: No lymphadenopathy or thyromegaly Cardiac: Regular rate and rhythm, no murmurs, normal S1, normal S2 Pulm: Clear to auscultation bilaterally. No wheezes, rhonchi, rales Abd: Nondistended, nontender to palpation, normal bowel sounds Ext: No edema bilateral lower extremities Labs: See below Imaging: No new imaging has been performed Assessment/plan: 80-year-old female presented hospital frequent falls and weakness was unable to pass physical therapy evaluation in the emergency department. Patient was discharged in the acute medical floor and is now currently in the acute rehab unit. 1. Weakness and debility. This may be secondary to a urinary tract infection. Patient is very weak and unable to care for self. Patient lives in a two-story home. Patient is now in the acute rehab unit and will continue with PT and OT. Once ready for discharge from acute rehab unit, patient will be going to an assisted living facility. 2. Hyponatremia. Patient sodium is mildly elevated today at 146. We will repeat this tomorrow. 3. Urinary tract infection diagnosis outpatient continue Keflex as prescribed for 5 more days. 4. Lung nodule seen on chest CT. Patient will need a PET scan performed outpatient. 5. Bipolar disorder. Continue home medications. 6. Hypertension. Continue patient's home medications DVT Prophylaxis: Heparin Disposition: Discharge per Dr. Allen and the ARU staff. VS,Fishbone, I+O VS, Fishbone, I+O Laboratory Tests 04/05/21 06:28 Vital Signs Date Time Temp Pulse Resp B/P (MAP) Pulse Ox O2 Delivery O2 Flow Rate FiO2 04/05/21 14:28 156/69 04/05/21 14:00 98.3 84 20 98 Room Air I&O- Last 24 Hours up to 6 AM 04/05/21 05:59 Intake Total 900 ml Balance 900 ml JOSETTE MERCADO DO Apr 05, 2021 16:01
[2021-04-05] MEDS: LURASIDONE HCL 40 MG TAB (LATUDA) PO SCH (17:27)
[2021-04-05 20:39] VITALS: BP 130/62
[2021-04-05] MEDS: LITHIUM CARBONATE 300 MG CAP PO SCH (20:39)
[2021-04-06] MEDS: LEVOTHYROXINE 50MCG TABLET (0.05MG) PO SCH (05:12)
[2021-04-06] MEDS: **hydrALAZINE HCL** 25 MG TAB PO PRN (05:13)
[2021-04-06 06:00] VITALS: BP 145/72
[2021-04-06 06:23] LABS: BASO # 0.1 10^3/uL (0.0-0.2); BASO % 0.6 % (0.0-1.0); EOS # 0.4 10^3/uL (0.0-0.5); EOS % 4.6 % (0.0-3.0); HEMATOCRIT 33.3 % (36.0-47.0); HEMOGLOBIN 10.3 g/dl (12.0-15.5); HEMOGLOBIN 10.4 g/dl (12.0-15.5); LYMPH # 2.7 10^3/uL (1.5-5.0); LYMPH % 29.4 % (24.0-44.0); MEAN CORPUSCULAR HEMOGLOBIN 30.6 pg (27.0-33.0); MEAN CORPUSCULAR HGB CONC 31.2 g/dl (32.0-36.5); MEAN CORPUSCULAR VOLUME 97.9 fl (80.0-96.0); MONO % 10.5 % (2.0-8.0); NEUTROPHILS % 54.6 % (36.0-66.0); PLATELET COUNT, AUTOMATED 350 10^3/uL (150-450); PLATELET COUNT, AUTOMATED 360 10^3/uL (150-450); RED BLOOD COUNT 3.37 10^6/uL (4.00-5.40); WHITE BLOOD COUNT 9.1 10^3/uL (4.0-10.0); WHITE BLOOD COUNT 9.3 10^3/uL (4.0-10.0)
[2021-04-06 06:48] LABS: CREATININE FOR GFR 1.18 MG/DL (0.55-1.30); MAGNESIUM LEVEL 2.5 MG/DL (1.8-2.4); POTASSIUM SERUM 4.3 MEQ/L (3.5-5.1)
[2021-04-06] MEDS: lamoTRIgine 25MG TAB PO SCH (07:40)
[2021-04-06] MEDS: HEPARIN SOD (PORCINE) 5000UNITS/ML 1ML VIAL/SYRINGE SC SCH ×2 (07:40→20:05)
[2021-04-06] MEDS: VITAMIN B COMPLEX/VIT C CAP PO SCH (07:41)
[2021-04-06] MEDS: VITAMIN D 1,000 INTERNATIONAL UNITS TABLET PO SCH (07:41)
[2021-04-06] MEDS: lamoTRIgine 100MG TAB PO SCH (07:41)
[2021-04-06] MEDS: LACTOBACILLUS ACIDOPHILUS CAP (BACID) PO SCH ×4 (07:41→20:05)
[2021-04-06] MEDS: SUCRALFATE 1 GM TAB PO SCH ×4 (07:41→20:05)
[2021-04-06] MEDS: SPIRONOLACTONE 12.5MG PER 1/2 TABLET PO SCH (07:42)
[2021-04-06] MEDS: ADDERALL 5 MG TAB PO SCH (07:42)
[2021-04-06] MEDS: MAGNESIUM OXIDE 400MG TAB (MAG-OX) PO SCH (07:43)
[2021-04-06] MEDS: PANTOPRAZOLE 40MG TAB (PROTONIX) PO SCH (07:43)
[2021-04-06] MEDS: REMEDY PHYTOPLEX Z-GUARD PASTE 113GM TUBE (FROM STOREROOM PRODUCT) TOP SCH ×3 (07:44→20:10)
[2021-04-06] MEDS: POLYVINYL ALCOHOL OPHTH SOLN 15 ML(LIQUITEARS) OU SCH ×3 (07:44→20:09)
[2021-04-06 14:00] VITALS: BP 122/80
[2021-04-06] MEDS: LURASIDONE HCL 40 MG TAB (LATUDA) PO SCH (17:07)
[2021-04-06 20:00] VITALS: BP 138/63
[2021-04-06] MEDS: LITHIUM CARBONATE 300 MG CAP PO SCH (20:05)
[2021-04-07] MEDS: LEVOTHYROXINE 50MCG TABLET (0.05MG) PO SCH (04:59)
[2021-04-07 06:00] VITALS: BP 132/70
[2021-04-07] MEDS: SUCRALFATE 1 GM TAB PO SCH ×4 (07:30→20:36)
[2021-04-07] MEDS: LACTOBACILLUS ACIDOPHILUS CAP (BACID) PO SCH ×4 (08:00→20:36)
[2021-04-07 08:02] LABS: CALCIUM LEVEL 9.4 MG/DL (8.8-10.2); CREATININE FOR GFR 1.04 MG/DL (0.55-1.30); GLOMERULAR FILTRATION RATE 54.4 (>39); POTASSIUM SERUM 4.3 MEQ/L (3.5-5.1)
--- NOTE | 2021-04-07 10:12 | IPNPDOC ---
PM&R Progress Note DATE OF SERVICE: Apr 07, 2021 [employer] Progress Note Subjective: Patient stating her bilateral arm tremor is much better since her doctor lowered her [place] dosing several weeks ago and she can now manage her ADLs better. She states her mood is pretty well controlled now that she is on a lower dose of mood stabilizer. REVIEW OF SYSTEMS: The following is a completed review of systems and has been reviewed. Review of systems otherwise unremarkable. PAIN: Patient self reports no pain EYES: No recent vision changes EARS, NOSE, & THROAT: No throat pain, or dysphagia, or rhinorrhea CARDIOVASCULAR: Denies chest pain or palpitations PULMONARY: Denies shortness of breath GASTROINTESTINAL: Denies constipation/diarrhea GENITOURINARY: denies dysuria MUSCULOSKELETAL: generalized weakness NEUROLOGICAL:denies paresthesias HEMATOLOGICAL: denies easy bruising SKIN: denies rash PSYCHIATRIC: Unremarkable All other review of systems found to be negative. PHYSICAL EXAMINATION: VITAL SIGNS: Please see below. GENERAL: Pleasant and cooperative. No acute distress. HEENT: PERRL. Extraocular movements intact. Clear conjunctiva CARDIOVASCULAR: Regular rate and rhythm. No murmurs, rubs, or gallops LUNGS: Clear to auscultation bilaterally. No wheezes. No rhonchi ABDOMEN: Soft, nontender, nondistended. Positive bowel sounds. Normal active bowel sounds NEUROLOGICAL: Alert and oriented times three. Cranial nerves II through XII grossly intact. Sensation grossly intact EXTREMITIES: 5-/5 strength bilateral upper extremities.5-\5 strength right lower extremity. 5-/5 strength in left lower extremity. +bilat LE edema ASSESSMENT:80-year-old F with past medical history of bipolar, HTN who presents with debility in setting of UTI and electrolyte abnormalities PLAN: 1. REhab- PT/OT advance mobility and ADls, strengthen/stretch/maintain ROM all 4limbs, balance training, endurance, fall recovery 2. Cardiac- Hx of HTN cont bP meds, adjust prn -patient with LE edema will cont low dose aldactone (unable to use lasix/thiazide due to drug interactions with her psych meds) 3. Resp- monitor for infection, encourage incentive spirometry -will refer to oncology for incidental lung nodules seen on recent CT Chest 4. Endo- h xof hypothyroidism cont synthroid 5. Psych- hx of bipolar cont lamotrigine, lithium, Adderall, lurasidone 6. GI- recent +FOBT cont sucralfate and protonix, patient has seen gen surg and has f/u on 04-24-21 for endoscopy -monitor h/h 7. DVT ppx- heparin 8. Pain- tylenol prn 9. - patient was started on Keflex outpatient for UTI, repeat UA negative, patient asymptomatic, d/c'd 10. Hypernatremia- resolved, will monitor -hypokalemia also resolved, will monitor 11.Dispo- date TBD, patient reports she has bed reserved her at the [facility] 12. Hypermagnesemia- will d/c Mg supplement 13. Hypernatremia- on admission resolved (patient started on diuretic) 12. PAtient signed MOLST and wishes to be DNR/I Allergies Coded Allergies: bee venom protein (honey bee) (Verified Allergy, Intermediate, swelling, 03/31/21) doxycycline (Verified Allergy, Intermediate, itch, 03/31/21) Sulfa (Sulfonamide Antibiotics) (Verified Allergy, Unknown, 03/31/21) Vital Signs Vital Signs Date Time Temp Pulse Resp B/P (MAP) Pulse Ox O2 Delivery O2 Flow Rate FiO2 04/07/21 06:00 98.2 88 17 132/70 (90) 97 Room Air Laboratory Data CBC/BMP Laboratory Tests 04/07/21 06:46 Labs 24H Laboratory Tests 2 04/07/21 06:46: Anion Gap 4L, Glomerular Filtration Rate 54.4, Calcium Level 9.4 Current Medications Current Medications Current Medications Medications (Trade) Dose Ordered Sig/Saima Route PRN Reason Start Time Stop Time Status Last Admin Dose Admin Acetaminophen (Tylenol Tab) 650 mg Q4HP PRN PO fever/MILD PAIN (PS 1-4) 04/04/21 14:30 04/06/21 05:12 Amlodipine Besylate (Norvasc) 10 mg DAILY PO 04/05/21 09:00 04/06/21 07:41 Amphetamine/ Dextroamphetamine (Adderall) 20 mg QAM PO 04/05/21 09:00 04/06/21 07:42 Artificial Tears ([place] Tears) 2 drop TID OU 04/04/21 16:00 04/06/21 20:09 Heparin Sodium (Porcine) (Heparin) 5,000 units Q12H SC 04/04/21 21:00 04/06/21 20:05 Home Med (Home Med List Complete!) ASDIRECTED XX 04/04/21 20:30 04/04/21 20:29 DC Hydralazine HCl (Apresoline) 25 mg Q6H PRN PO sbp >140 04/04/21 14:30 04/06/21 05:13 Lactobacillus Acidophilus (Bacid) 1 ea WMHS PO 04/04/21 18:00 04/06/21 20:05 Lamotrigine (LaMICtal) 25 mg QAM PO 04/05/21 09:00 04/06/21 07:40 Lamotrigine (LaMICtal) 200 mg QAM PO 04/05/21 09:00 04/06/21 07:41 Levothyroxine Sodium (Synthroid) 50 mcg DAILY@06 PO 04/05/21 06:00 04/07/21 04:59 [place] Carbonate ([place] Carbonate) 300 mg QHS PO 04/04/21 21:00 04/06/21 20:05 Lurasidone HCl (Latuda) 40 mg DAILY@18 PO 04/04/21 18:00 04/06/21 17:07 Magnesium Oxide (Mag-Ox) 400 mg DAILY PO 04/05/21 09:00 04/06/21 07:43 Pantoprazole Sodium (Protonix) 40 mg DAILY PO 04/05/21 09:00 04/06/21 07:43 Polyethylene Glycol (Miralax) 1 pkt DAILY PRN PO CONSTIPATION 04/04/21 14:30 Simethicone (Mylicon) 80 mg QIDP PRN PO BLOATING 04/04/21 14:30 Spironolactone (Aldactone) 12.5 mg DAILY PO 04/04/21 09:00 04/06/21 07:42 Sucralfate (Carafate) 1 gm ACHS PO 04/04/21 17:30 04/06/21 20:05 Vitamin B Complex/ Vitamin C (Therapeutic B Complex w/C) 1 cap DAILY PO 04/05/21 09:00 04/06/21 07:41 Vitamin D (Vitamin D) 2,000 units DAILY PO 04/05/21 09:00 04/06/21 07:41 DERICK MACIAS MD Apr 07, 2021 10:12
[2021-04-07] MEDS: lamoTRIgine 25MG TAB PO SCH (10:35)
[2021-04-07] MEDS: lamoTRIgine 100MG TAB PO SCH (10:35)
[2021-04-07] MEDS: ADDERALL 5 MG TAB PO SCH (10:36)
[2021-04-07] MEDS: VITAMIN D 1,000 INTERNATIONAL UNITS TABLET PO SCH (10:37)
[2021-04-07] MEDS: PANTOPRAZOLE 40MG TAB (PROTONIX) PO SCH (10:37)
[2021-04-07] MEDS: VITAMIN B COMPLEX/VIT C CAP PO SCH (10:38)
[2021-04-07] MEDS: SPIRONOLACTONE 12.5MG PER 1/2 TABLET PO SCH (10:38)
[2021-04-07] MEDS: HEPARIN SOD (PORCINE) 5000UNITS/ML 1ML VIAL/SYRINGE SC SCH ×2 (10:38→20:37)
[2021-04-07] MEDS: POLYVINYL ALCOHOL OPHTH SOLN 15 ML(LIQUITEARS) OU SCH ×3 (10:39→20:36)
[2021-04-07] MEDS: REMEDY PHYTOPLEX Z-GUARD PASTE 113GM TUBE (FROM STOREROOM PRODUCT) TOP SCH ×3 (10:39→20:36)
[2021-04-07 14:00] VITALS: BP 128/68
[2021-04-07 14:09] VITALS: BP 122/58
[2021-04-07] MEDS: LURASIDONE HCL 40 MG TAB (LATUDA) PO SCH (18:24)
[2021-04-07 20:00] VITALS: BP 128/62
[2021-04-07] MEDS: LITHIUM CARBONATE 300 MG CAP PO SCH (20:36)
[2021-04-08] MEDS: LEVOTHYROXINE 50MCG TABLET (0.05MG) PO SCH (05:25)
[2021-04-08 06:00] VITALS: BP 142/70
[2021-04-08] MEDS: VITAMIN B COMPLEX/VIT C CAP PO SCH (08:26)
[2021-04-08] MEDS: SUCRALFATE 1 GM TAB PO SCH ×4 (08:26→19:20)
[2021-04-08] MEDS: SPIRONOLACTONE 12.5MG PER 1/2 TABLET PO SCH (08:26)
[2021-04-08] MEDS: ADDERALL 5 MG TAB PO SCH (08:26)
[2021-04-08] MEDS: PANTOPRAZOLE 40MG TAB (PROTONIX) PO SCH (08:26)
[2021-04-08] MEDS: VITAMIN D 1,000 INTERNATIONAL UNITS TABLET PO SCH (08:26)
[2021-04-08] MEDS: LACTOBACILLUS ACIDOPHILUS CAP (BACID) PO SCH ×4 (08:26→19:21)
[2021-04-08] MEDS: HEPARIN SOD (PORCINE) 5000UNITS/ML 1ML VIAL/SYRINGE SC SCH ×2 (08:27→19:21)
[2021-04-08] MEDS: lamoTRIgine 25MG TAB PO SCH (08:27)
[2021-04-08] MEDS: REMEDY PHYTOPLEX Z-GUARD PASTE 113GM TUBE (FROM STOREROOM PRODUCT) TOP SCH ×3 (08:27→19:22)
[2021-04-08] MEDS: lamoTRIgine 100MG TAB PO SCH (08:27)
[2021-04-08] MEDS: POLYVINYL ALCOHOL OPHTH SOLN 15 ML(LIQUITEARS) OU SCH ×3 (08:27→19:21)
--- NOTE | 2021-04-08 11:56 | IPNPDOC ---
Text Note Date of Service The patient was seen on 04/08/21. NOTE Subjective: Patient is doing well. Patient not have any complaints at this time. Physical exam: Vitals: See below General: Alert and oriented female patient was sitting the bedside chair eating lunch when I walked in the room. Patient not appear to be in any acute distress. HEENT: Normocephalic, atraumatic, moist mucous membranes. Neck: No lymphadenopathy or thyromegaly Cardiac: Regular rate and rhythm, no murmurs, normal S1, normal S2 Pulm: Clear to auscultation bilaterally. No wheezes, rhonchi, rales Abd: Nondistended, nontender to palpation, normal bowel sounds Ext: No edema bilateral lower extremities Labs: Reviewed Imaging: No new imaging has been performed Assessment/plan: 80-year-old female presented hospital frequent falls and weakness was unable to pass physical therapy evaluation in the emergency department. Patient was discharged in the acute medical floor and is now currently in the acute rehab unit. 1. Weakness and debility. This may be secondary to a urinary tract infection. Patient is very weak and unable to care for self. Patient lives in a two-story home. Patient is now in the acute rehab unit and will continue with PT and OT. Once ready for discharge from acute rehab unit, patient will be going to an assisted living facility. 2. Hyponatremia. Patient sodium is mildly elevated today at 146. We will repeat this tomorrow. 3. Urinary tract infection diagnosis outpatient continue Keflex as prescribed for 5 more days. 4. Lung nodule seen on chest CT. Patient will need a PET scan performed outpatient. 5. Bipolar disorder. Continue home medications. 6. Hypertension. Continue patient's home medications DVT Prophylaxis: Heparin Disposition: Discharge per Dr. Allen and the ARU staff. VS,Fishbone, I+O VS, Fishbone, I+O Vital Signs Date Time Temp Pulse Resp B/P (MAP) Pulse Ox O2 Delivery O2 Flow Rate FiO2 04/08/21 08:26 90 142/70 04/08/21 06:00 98.6 20 100 Room Air I&O- Last 24 Hours up to 6 AM 04/08/21 05:59 Intake Total 2480 ml Balance 2480 ml KIRIT TOWNSEND MD Apr 08, 2021 11:56
--- NOTE | 2021-04-08 14:00 | IPNPDOC ---
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 REVIEW OF SYSTEMS: The following is a completed review of systems and has been reviewed. Review of systems otherwise unremarkable. PAIN: Patient self reports no pain EYES: No recent vision changes EARS, NOSE, & THROAT: No throat pain, or dysphagia, or rhinorrhea CARDIOVASCULAR: Denies chest pain or palpitations PULMONARY: Denies shortness of breath GASTROINTESTINAL: Denies constipation/diarrhea GENITOURINARY: denies dysuria MUSCULOSKELETAL: generalized weakness NEUROLOGICAL:denies paresthesias HEMATOLOGICAL: denies easy bruising SKIN: denies rash PSYCHIATRIC: Unremarkable All other review of systems found to be negative. PHYSICAL EXAMINATION: VITAL SIGNS: Please see below. GENERAL: Pleasant and cooperative. No acute distress. HEENT: PERRL. Extraocular movements intact. Clear conjunctiva CARDIOVASCULAR: Regular rate and rhythm. No murmurs, rubs, or gallops LUNGS: Clear to auscultation bilaterally. No wheezes. No rhonchi ABDOMEN: Soft, nontender, nondistended. Positive bowel sounds. Normal active bowel sounds NEUROLOGICAL: Alert and oriented times three. Cranial nerves II through XII grossly intact. Sensation grossly intact EXTREMITIES: 5-/5 strength bilateral upper extremities.5-\5 strength right lower extremity. 5-/5 strength in left lower extremity. +bilat LE edema ASSESSMENT:80-year-old F with past medical history of bipolar, HTN who presents with debility in setting of UTI and electrolyte abnormalities PLAN: 1. REhab- PT/OT advance mobility and ADls, strengthen/stretch/maintain ROM all 4limbs, balance training, endurance, fall recovery 2. Cardiac- Hx of HTN cont bP meds, adjust prn -patient with LE edema will cont low dose aldactone (unable to use lasix/thiazide due to drug interactions with her psych meds) 3. Resp- monitor for infection, encourage incentive spirometry -will consult pulmonology and oncology to review with patient and discuss plan for incidental lung nodules seen on recent CT Chest, patient reporting her mother had TB 4. Endo- h xof hypothyroidism cont synthroid 5. Psych- hx of bipolar cont lamotrigine, lithium, Adderall, lurasidone 6. GI- recent +FOBT cont sucralfate and protonix, patient has seen gen surg and has f/u on 04-24-21 for endoscopy -monitor h/h 7. DVT ppx- heparin 8. Pain- tylenol prn 9. - patient was started on Keflex outpatient for UTI, repeat UA negative, patient asymptomatic, d/c'd 10.Dispo- date TBD, patient reports she has bed reserved her at the [facility] 11. Hypermagnesemia- will d/c Mg supplement 12. Hypernatremia- on admission resolved (patient started on diuretic) 13. PAtient signed MOLST and wishes to be DNR/I Allergies Coded Allergies: bee venom protein (honey bee) (Verified Allergy, Intermediate, swelling, 03/31/21) doxycycline (Verified Allergy, Intermediate, itch, 03/31/21) Sulfa (Sulfonamide Antibiotics) (Verified Allergy, Unknown, 03/31/21) Vital Signs Vital Signs Date Time Temp Pulse Resp B/P (MAP) Pulse Ox O2 Delivery O2 Flow Rate FiO2 04/08/21 08:26 90 142/70 04/08/21 06:00 98.6 20 100 Room Air Current Medications Current Medications Current Medications Medications (Trade) Dose Ordered Sig/Saima Route PRN Reason Start Time Stop Time Status Last Admin Dose Admin Acetaminophen (Tylenol Tab) 650 mg Q4HP PRN PO fever/MILD PAIN (PS 1-4) 04/04/21 14:30 04/06/21 05:12 Amlodipine Besylate (Norvasc) 10 mg DAILY PO 04/05/21 09:00 04/08/21 08:26 Amphetamine/ Dextroamphetamine (Adderall) 20 mg QAM PO 04/05/21 09:00 04/08/21 08:26 Artificial Tears (Akwa Tears) 2 drop TID OU 04/04/21 16:00 04/08/21 08:27 Heparin Sodium (Porcine) (Heparin) 5,000 units Q12H SC 04/04/21 21:00 04/08/21 08:27 Home Med (Home Med List Complete!) ASDIRECTED XX 04/04/21 20:30 04/04/21 20:29 DC Hydralazine HCl (Apresoline) 25 mg Q6H PRN PO sbp >140 04/04/21 14:30 04/06/21 05:13 Lactobacillus Acidophilus (Bacid) 1 ea WMHS PO 04/04/21 18:00 04/08/21 12:11 Lamotrigine (LaMICtal) 25 mg QAM PO 04/05/21 09:00 04/08/21 08:27 Lamotrigine (LaMICtal) 200 mg QAM PO 04/05/21 09:00 04/08/21 08:27 Levothyroxine Sodium (Synthroid) 50 mcg DAILY@06 PO 04/05/21 06:00 04/08/21 05:25 [place] Carbonate ([place] Carbonate) 300 mg QHS PO 04/04/21 21:00 04/07/21 20:36 Lurasidone HCl (Latuda) 40 mg DAILY@18 PO 04/04/21 18:00 04/07/21 18:24 Magnesium Oxide (Mag-Ox) 400 mg DAILY PO 04/05/21 09:00 04/07/21 10:11 DC 04/06/21 07:43 Pantoprazole Sodium (Protonix) 40 mg DAILY PO 04/05/21 09:00 04/08/21 08:26 Polyethylene Glycol (Miralax) 1 pkt DAILY PRN PO CONSTIPATION 04/04/21 14:30 Simethicone (Mylicon) 80 mg QIDP PRN PO BLOATING 04/04/21 14:30 Spironolactone (Aldactone) 12.5 mg DAILY PO 04/04/21 09:00 04/08/21 08:26 Sucralfate (Carafate) 1 gm ACHS PO 04/04/21 17:30 04/08/21 12:11 Vitamin B Complex/ Vitamin C (Therapeutic B Complex w/C) 1 cap DAILY PO 04/05/21 09:00 04/08/21 08:26 Vitamin D (Vitamin D) 2,000 units DAILY PO 04/05/21 09:00 04/08/21 08:26 DERICK MACIAS MD Apr 08, 2021 14:00
--- NOTE | 2021-04-08 16:28 | CR.PDOC ---
General Date of Consultation: Apr 08, 2021 Referring Provider: DERICK MACIAS MD Attending Physician: ALEX DE LA CRUZ MD Consultation REASON FOR CONSULTATION/CHIEF COMPLAINT: Right lung nodule HISTORY OF PRESENT ILLNESS: Rachel is a very pleasant 80yo female w/ notable PMHx of left breast cancer s/p lumpectomy, multiple previously excised basal cell carcinomas, hypertension, hypothyroidism, and bipolar disorder who initially presented to the ED on 04/02/21 via EMS after pressing her life alert button due to prolonged weakness at home with multiple recent falls and associated back pain. Patient was ultimately admitted for debility 2/2 weakness with recent falls. She remained relatively stable throughout the inpatient stay and was discharged on 04/04/21 to the acute rehab unit for further therapy and ultimate placement. The physical medicine and rehabilitation service consulted the pulmonology service primarily due to a 1.9 x 1.6 x 1.7 cm right apical irregularly shaped possibly spiculated nodule. Patient had initially undergone imaging in the setting of recent falls during inpt admission and a CT thoracic spine found the apical nodule, warranting the follow-up CT of the chest to further define the nodule. The pulmonology service was asked to evaluate the patient and offer further recommendations on management of said nodule. ALLERGIES: Please see below. HOME MEDICATIONS: Please see below. 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 She denies any current or former smoking, illicit/IV drug, or significant alcohol use. She denies any environmental or occupational exposures possibly related to pulmonary pathology (i.e. silica, asbestos, radha species, etc). REVIEW OF SYSTEMS: CONSTITUTIONAL: Reports generalized weakness over the past week or so. Denies any current or recent fever, chills, night sweats, or unintentional change in weight. HEENT: Headache was reported at time of admission but she states today that this has since resolved. CARDIOVASCULAR: Denies any chest pain, chest pressure, or palpitations RESPIRATORY: Denies any shortness of breath, cough, or pleuritic chest pain GENITOURINARY: Denies any dysuria or increased urinary frequency MUSCULOSKELETAL: Reports generalized weakness but denies any specific myalgias GASTROINTESTINAL: Denies abdominal pain/nausea/vomiting/diarrhea SKIN: Reports history of BCC excisions but no significant current issues NEUROLOGICAL: Reports some baseline upper extremity tremors that have improved since decreasing lithium dose. HEMATOLOGIC/LYMPHATIC: Reports some bruising associated with recent falls. Denies any easy bleeding. Denies any new lumps or bumps. PHYSICAL EXAMINATION: VITAL SIGNS: Please see below. GENERAL APPEARANCE: Very pleasant elderly female seated comfortably at time of our exam. No acute distress. HEENT: Normocephalic, atraumatic. Wearing eyeglasses. Noninjected, anicteric sclera. Neck: No significant cervical or supraclavicular lymphadenopathy appreciated. Supple. Trachea midline. RESPIRATORY: Mildly decreased tidal volume with no significant adventitious breath sounds appreciated. Symmetric chest expansion. No accessory muscle use is appreciated. CARDIOVASCULAR: Regular rate, regular rhythm. Normal S1, S2. No significant murmurs cruciated. ABDOMEN: Soft, nontender nondistended. There is no guarding or rigidity appreciated. EXTREMITIES: Bilateral lower extremities are free of pitting edema. No clubbing or cyanosis is appreciated. There are some visible arthritic changes to DIP joints bilaterally. NEUROLOGICAL: No gross focal neurologic deficits are appreciated. Nondysarthric speech. Patient responds to all questions and commands appropriately and memory is intact as she is able to recall her prior physicians for multiple different issues in the past. There is a resting left upper extremity tremor present. PSYCHIATRIC: Mood and affect appear appropriate. LABORATORY DATA: Please see below. ASSESSMENT/PLAN: This is a very pleasant 80-year-old female with notable history of left breast cancer status post lumpectomy, previous basal cell carcinoma excisions, bipolar disorder, hypertension, and hypothyroidism who was initially admitted earlier this month (04/02) for 3-day stay secondary to weakness and debility with recent falls. Patient was discharged from inpatient status to the acute rehab unit for further rehabilitative therapy sessions and is currently awaiting placement into assisted living. During fall work-up, CT thoracic spine showed apical mass which was further defined via a CT of the chest showing a 1.9 x 1.7 x 1.6 right lung apical mass that was possibly spiculated. #Right lung nodule -As discussed above, initial imaging for work-up of fall showed apical mass that was further defined on CT chest on 04/03 showing a right apical pleural-based irregularly sized and possibly spiculated 1.9 x 1.6 x 1.7 cm nodule. -Upon admission to the acute rehab unit, physical medicine and rehabilitation service consulted the pulmonology service for evaluation and recommendation in the setting of incidentally found lung nodule -Of note, two other right-sided lung nodules (a 3 mm middle lobe, and 9 mm right intra fissural nodule of right lower lobe superior segment) were identified on CT chest impression. Per pulmonology review of imaging, the 9 mm right intrafissural nodule was not appreciated to be a definite nodule. -Per recommendations of current Fleischner criteria, patient has only one definite nodule identified as greater than 8 mm. While she is status post left breast cancer, she received no radiation, chemotherapy, or invasive surgery to treat. She was deemed as low risk and has good mental faculties at this time; as a result, a comprehensive discussion was held with the patient to present options and ultimately allow her to decide. -We had an extensive collaborative discussion with the patient today regarding her options, specifically repeat work-up at 3 months time with either chest CT vs PET CT vs lung nodule biopsy. The risks and benefits of all therapeutic options were discussed with the patient, as was the option of not pursuing any further work-up related to the nodule. -Patient ultimately elected to proceed with a PET/CT, which will be indicated 3 months after the initial chest CT was taken (she will be eligible for the PET anytime on or after July 04, 2021). Thank you very much for allowing the pulmonology service to participate in the care of Ms. Puga. Should any further questions arise regarding today's evaluation, or subsequent pulmonology questions or concerns arise, please do not hesitate to contact our service. Vital Signs/I&O Vital Signs Date Time Temp Pulse Resp B/P (MAP) Pulse Ox O2 Delivery O2 Flow Rate FiO2 04/08/21 14:00 98.9 93 20 98 Room Air 04/08/21 08:26 142/70 I&O- Last 24 Hours up to 6 AM 04/08/21 06:00 Intake Total 2620 ml Balance 2620 ml Allergies Coded Allergies: bee venom protein (honey bee) (Verified Allergy, Intermediate, swelling, 03/31/21) doxycycline (Verified Allergy, Intermediate, itch, 03/31/21) Sulfa (Sulfonamide Antibiotics) (Verified Allergy, Unknown, 03/31/21) Home Medications Scheduled Amlodipine Besylate (Norvasc) 10 Mg Tablet, 10 MG PO DAILY, (Reported) Dextroamphetamine/Amphetamine (Adderall 20 mg Tablet) 20 Mg Tablet, 20 MG PO DAILY, (Reported) Ergocalciferol (Vitamin D2) (Vitamin D2) 50,000 Units Cap, 50,000 UNITS PO QWEEK, (Reported) SATURDAYS L.acidoph/L.bulg/B.bif/S.therm (Bacid Caplet) 1 Each Tablet, 1 TAB PO TID, (Reported) Lamotrigine (Lamotrigine) 150 Mg Tablet, 225 MG PO DAILY, (Reported) Levothyroxine Sodium (Synthroid) 50 Mcg Tablet, 50 MCG PO DAILY, (Reported) [place] Carbonate ([place] Carbonate) 300 Mg Capsule, 300 MG PO QHS, (Reported) Lurasidone Hydrochloride (Latuda) 40 Mg Tablet, 40 MG PO QPM, (Reported) TAKES AT DINNERTIME Magnesium Oxide (Magnesium) 400 Mg Capsule, 400 MG PO QHS, (Reported) Pantoprazole Sodium (Pantoprazole Sodium) 40 Mg Tablet.dr, 40 MG PO DAILY, (Reported) Sucralfate (Sucralfate) 1 Gm Tablet, 1 GM PO ACHS, (Reported) Vilazodone HCl (Viibryd) 40 Mg Tablet, 40 MG PO DAILY, (Reported) Vitamin B Complex (Vitamin B Complex) 1 Each Tablet, 1 TAB PO Q2D, (Reported) [Cephalexin Monohydrate] 250 MG CAP, 250 MG PO Q6H for 5 Days, #20 Scribe Attestation Patient is a 80-year-old female with past medical history of left-sided breast cancer status post lumpectomy with clear border 5 years ago, long remote history of basal cell cancer of the skin who was admitted to the hospital with recurrent for. During her routine CT scan of the spine below for fracture, she was found to have incidental pulmonary nodule in the right apex. This was follow-up with a CT scan of the chest which shows right apical pulmonary nodule with 1.8 centimeter, small subcentimeter pulmonary nodule in the right lower lobe. Patient is never a smoker and never had any exposure to asbestos or silica. She has no family history of cancer. Therefore she is extremely low risk. Per guideline, this nodule can be follow-up with CT scan of the chest or PET/CT in 3 months versus biopsy. All these diagnostic options were explained to the patient with risks and benefits and patient decided to proceed with PET/CT in 3 months. She should be follow-up very closely by her PCP or can be referred to pulmonary outpatient to ensure she has close follow-up for this pulmonary nodules. ABBI MORTON D.O. Apr 08, 2021 16:28 ALEX DE LA CRUZ MD Apr 08, 2021 17:03
[2021-04-08] MEDS: LURASIDONE HCL 40 MG TAB (LATUDA) PO SCH (17:02)
[2021-04-08] MEDS: LITHIUM CARBONATE 300 MG CAP PO SCH (19:21)
[2021-04-08 20:00] VITALS: BP 142/72
[2021-04-09 06:00] VITALS: BP 128/62
[2021-04-09] MEDS: LEVOTHYROXINE 50MCG TABLET (0.05MG) PO SCH (06:07)
[2021-04-09] MEDS: LACTOBACILLUS ACIDOPHILUS CAP (BACID) PO SCH ×4 (08:25→21:26)
[2021-04-09] MEDS: lamoTRIgine 25MG TAB PO SCH (08:25)
[2021-04-09] MEDS: PANTOPRAZOLE 40MG TAB (PROTONIX) PO SCH (08:25)
[2021-04-09] MEDS: SUCRALFATE 1 GM TAB PO SCH ×4 (08:25→21:26)
[2021-04-09] MEDS: VITAMIN B COMPLEX/VIT C CAP PO SCH (08:25)
[2021-04-09] MEDS: lamoTRIgine 100MG TAB PO SCH (08:26)
[2021-04-09] MEDS: HEPARIN SOD (PORCINE) 5000UNITS/ML 1ML VIAL/SYRINGE SC SCH ×2 (08:26→21:26)
[2021-04-09] MEDS: ADDERALL 5 MG TAB PO SCH (08:26)
[2021-04-09] MEDS: VITAMIN D 1,000 INTERNATIONAL UNITS TABLET PO SCH (08:26)
[2021-04-09] MEDS: SPIRONOLACTONE 12.5MG PER 1/2 TABLET PO SCH (08:26)
[2021-04-09] MEDS: POLYVINYL ALCOHOL OPHTH SOLN 15 ML(LIQUITEARS) OU SCH ×3 (08:27→21:27)
[2021-04-09] MEDS: REMEDY PHYTOPLEX Z-GUARD PASTE 113GM TUBE (FROM STOREROOM PRODUCT) TOP SCH ×3 (08:28→21:28)
[2021-04-09 10:33] LABS: BASO # 0.1 10^3/uL (0.0-0.2); BASO % 0.6 % (0.0-1.0); EOS # 0.4 10^3/uL (0.0-0.5); EOS % 4.4 % (0.0-3.0); HEMATOCRIT 33.9 % (36.0-47.0); HEMOGLOBIN 10.4 g/dl (12.0-15.5); LYMPH # 2.6 10^3/uL (1.5-5.0); LYMPH % 26.4 % (24.0-44.0); MEAN CORPUSCULAR HGB CONC 30.7 g/dl (32.0-36.5); MEAN CORPUSCULAR VOLUME 97.7 fl (80.0-96.0); MONO # 1.1 10^3/uL (0.0-0.8); MONO % 11.3 % (2.0-8.0); NEUTROPHILS # 5.5 10^3/uL (1.5-8.5); PLATELET COUNT, AUTOMATED 385 10^3/uL (150-450); RED BLOOD COUNT 3.47 10^6/uL (4.00-5.40); WHITE BLOOD COUNT 9.7 10^3/uL (4.0-10.0)
[2021-04-09 10:56] LABS: CALCIUM LEVEL 9.6 MG/DL (8.8-10.2); CREATININE FOR GFR 1.09 MG/DL (0.55-1.30); GLOMERULAR FILTRATION RATE 51.5 (>39); POTASSIUM SERUM 4.1 MEQ/L (3.5-5.1)
--- NOTE | 2021-04-09 11:27 | IPNPDOC ---
PM&R Progress Note DATE OF SERVICE: Apr 09, 2021 Fire Prevention Research Engineer Progress Note Subjective: patient seen in her room stating she felt anxious about going home but was happy to hear she would be going to [facility] on the . She does not beleive she has difficulty taking her medications, but was open to having this evaluated by therapy. REVIEW OF SYSTEMS: The following is a completed review of systems and has been reviewed. Review of systems otherwise unremarkable. PAIN: Patient self reports no pain EYES: No recent vision changes EARS, NOSE, & THROAT: No throat pain, or dysphagia, or rhinorrhea CARDIOVASCULAR: Denies chest pain or palpitations PULMONARY: Denies shortness of breath GASTROINTESTINAL: Denies constipation/diarrhea GENITOURINARY: denies dysuria MUSCULOSKELETAL: generalized weakness NEUROLOGICAL:denies paresthesias HEMATOLOGICAL: denies easy bruising SKIN: denies rash PSYCHIATRIC: Unremarkable All other review of systems found to be negative. PHYSICAL EXAMINATION: VITAL SIGNS: Please see below. GENERAL: Pleasant and cooperative. No acute distress. HEENT: PERRL. Extraocular movements intact. Clear conjunctiva CARDIOVASCULAR: Regular rate and rhythm. No murmurs, rubs, or gallops LUNGS: Clear to auscultation bilaterally. No wheezes. No rhonchi ABDOMEN: Soft, nontender, nondistended. Positive bowel sounds. Normal active bowel sounds NEUROLOGICAL: Alert and oriented times three. Cranial nerves II through XII grossly intact. Sensation grossly intact EXTREMITIES: 5-/5 strength bilateral upper extremities.5-\5 strength right lower extremity. 5-/5 strength in left lower extremity. +bilat LE edema (improved) ASSESSMENT:80-year-old F with past medical history of bipolar, HTN who presents with debility in setting of UTI and electrolyte abnormalities PLAN: 1. REhab- PT/OT advance mobility and ADls, strengthen/stretch/maintain ROM all 4limbs, balance training, endurance, fall recovery -SVP OPERATIONS currently seeing patient for cog, will ask to work on medication management as well 2. Cardiac- Hx of HTN cont bP meds, adjust prn -patient with LE edema that improved with short course of Aldactone (unable to use lasix/thiazide due to drug interactions with her psych meds) 3. Resp- monitor for infection, encourage incentive spirometry -consulted pulmonology and oncology to review with patient and discuss plan for incidental lung nodules seen on recent CT Chest, patient reporting her mother had TB- pulm recs appreciated, patient will f/u in 3 months for further imaging 4. Endo- hx of hypothyroidism cont synthroid 5. Psych- hx of bipolar cont lamotrigine, lithium, Adderall, lurasidone 6. GI- recent +FOBT cont sucralfate and protonix, patient has seen gen surg and has f/u on 04-24-21 for endoscopy -monitor h/h 7. DVT ppx- heparin 8. Pain- tylenol prn 9. - patient was started on Keflex outpatient for UTI, repeat UA negative, patient asymptomatic, d/c'd 10.Dispo- date TBD, patient reports she has bed reserved her at the [facility] 11. Hypermagnesemia- d/c'd Mg supplement 12. Hypernatremia- on admission resolved (patient started on short course diuretic) 13. PAtient signed MOLST and wishes to be DNR/I Allergies Coded Allergies: bee venom protein (honey bee) (Verified Allergy, Intermediate, swelling, 03/31/21) doxycycline (Verified Allergy, Intermediate, itch, 03/31/21) Sulfa (Sulfonamide Antibiotics) (Verified Allergy, Unknown, 03/31/21) Vital Signs Vital Signs Date Time Temp Pulse Resp B/P (MAP) Pulse Ox O2 Delivery O2 Flow Rate FiO2 04/09/21 08:27 84 124/68 04/09/21 06:00 99.2 16 94 Room Air Laboratory Data CBC/BMP Laboratory Tests 04/09/21 10:12 Labs 24H Laboratory Tests 2 04/09/21 10:12: Immature Granulocyte % (Auto) 0.3, Neutrophils (%) (Auto) 57.0, Lymphocytes (%) (Auto) 26.4, Monocytes (%) (Auto) 11.3H, Eosinophils (%) (Auto) 4.4H, Basophils (%) (Auto) 0.6, Neutrophils # (Auto) 5.5, Lymphocytes # (Auto) 2.6, Monocytes # (Auto) 1.1H, Eosinophils # (Auto) 0.4, Basophils # (Auto) 0.1, Nucleated Red Blood Cells % (auto) 0.0, Anion Gap 4L, Glomerular Filtration Rate 51.5, Calcium Level 9.6 Current Medications Current Medications Current Medications Medications (Trade) Dose Ordered Sig/Saima Route PRN Reason Start Time Stop Time Status Last Admin Dose Admin Acetaminophen (Tylenol Tab) 650 mg Q4HP PRN PO fever/MILD PAIN (PS 1-4) 04/04/21 14:30 04/06/21 05:12 Amlodipine Besylate (Norvasc) 10 mg DAILY PO 04/05/21 09:00 04/09/21 08:27 Amphetamine/ Dextroamphetamine (Adderall) 20 mg QAM PO 04/05/21 09:00 04/09/21 08:26 Artificial Tears (Akwa Tears) 2 drop TID OU 04/04/21 16:00 04/08/21 19:21 Heparin Sodium (Porcine) (Heparin) 5,000 units Q12H SC 04/04/21 21:00 04/09/21 08:26 Home Med (Home Med List Complete!) ASDIRECTED XX 04/04/21 20:30 04/04/21 20:29 DC Hydralazine HCl (Apresoline) 25 mg Q6H PRN PO sbp >140 04/04/21 14:30 04/06/21 05:13 Lactobacillus Acidophilus (Bacid) 1 ea WMHS PO 04/04/21 18:00 04/09/21 08:25 Lamotrigine (LaMICtal) 25 mg QAM PO 04/05/21 09:00 04/09/21 08:25 Lamotrigine (LaMICtal) 200 mg QAM PO 04/05/21 09:00 04/09/21 08:26 Levothyroxine Sodium (Synthroid) 50 mcg DAILY@06 PO 04/05/21 06:00 04/09/21 06:07 [place] Carbonate ([place] Carbonate) 300 mg QHS PO 04/04/21 21:00 04/08/21 19:21 Lurasidone HCl (Latuda) 40 mg DAILY@18 PO 04/04/21 18:00 04/08/21 17:02 Magnesium Oxide (Mag-Ox) 400 mg DAILY PO 04/05/21 09:00 04/07/21 10:11 DC 04/06/21 07:43 Pantoprazole Sodium (Protonix) 40 mg DAILY PO 04/05/21 09:00 04/09/21 08:25 Polyethylene Glycol (Miralax) 1 pkt DAILY PRN PO CONSTIPATION 04/04/21 14:30 Simethicone (Mylicon) 80 mg QIDP PRN PO BLOATING 04/04/21 14:30 Spironolactone (Aldactone) 12.5 mg DAILY PO 04/04/21 09:00 04/09/21 11:25 DC 04/09/21 08:26 Sucralfate (Carafate) 1 gm ACHS PO 04/04/21 17:30 04/09/21 08:25 Vitamin B Complex/ Vitamin C (Therapeutic B Complex w/C) 1 cap DAILY PO 04/05/21 09:00 04/09/21 08:25 Vitamin D (Vitamin D) 2,000 units DAILY PO 04/05/21 09:00 04/09/21 08:26 DERICK MACIAS MD Apr 09, 2021 11:27
[2021-04-09 14:00] VITALS: BP 148/70
[2021-04-09] MEDS: LURASIDONE HCL 40 MG TAB (LATUDA) PO SCH (17:12)
[2021-04-09] MEDS: LITHIUM CARBONATE 300 MG CAP PO SCH (21:26)
[2021-04-10] MEDS: LEVOTHYROXINE 50MCG TABLET (0.05MG) PO SCH (05:16)
[2021-04-10 06:00] VITALS: BP 152/67
[2021-04-10 06:48] VITALS: BP 124/64
[2021-04-10] MEDS: PANTOPRAZOLE 40MG TAB (PROTONIX) PO SCH (08:43)
[2021-04-10] MEDS: LACTOBACILLUS ACIDOPHILUS CAP (BACID) PO SCH ×4 (08:43→20:37)
[2021-04-10] MEDS: SUCRALFATE 1 GM TAB PO SCH ×4 (08:43→20:36)
[2021-04-10] MEDS: HEPARIN SOD (PORCINE) 5000UNITS/ML 1ML VIAL/SYRINGE SC SCH ×2 (08:44→20:37)
[2021-04-10] MEDS: VITAMIN B COMPLEX/VIT C CAP PO SCH (08:44)
[2021-04-10] MEDS: VITAMIN D 1,000 INTERNATIONAL UNITS TABLET PO SCH (08:44)
[2021-04-10] MEDS: ADDERALL 5 MG TAB PO SCH (08:44)
[2021-04-10] MEDS: lamoTRIgine 100MG TAB PO SCH (08:45)
[2021-04-10] MEDS: REMEDY PHYTOPLEX Z-GUARD PASTE 113GM TUBE (FROM STOREROOM PRODUCT) TOP SCH ×3 (08:45→20:37)
[2021-04-10] MEDS: lamoTRIgine 25MG TAB PO SCH (08:45)
[2021-04-10] MEDS: POLYVINYL ALCOHOL OPHTH SOLN 15 ML(LIQUITEARS) OU SCH ×3 (08:45→20:40)
--- NOTE | 2021-04-10 09:28 | IPNPDOC ---
PM&R Progress Note DATE OF SERVICE: Apr 10, 2021 Biometrics Specialist Progress Note Subjective: Patient seen in her room with no specific complaints. She feels she is getting stronger and is ready for room privileges. REVIEW OF SYSTEMS: The following is a completed review of systems and has been reviewed. Review of systems otherwise unremarkable. PAIN: Patient self reports no pain EYES: No recent vision changes EARS, NOSE, & THROAT: No throat pain, or dysphagia, or rhinorrhea CARDIOVASCULAR: Denies chest pain or palpitations PULMONARY: Denies shortness of breath GASTROINTESTINAL: Denies constipation/diarrhea GENITOURINARY: denies dysuria MUSCULOSKELETAL: generalized weakness NEUROLOGICAL:denies paresthesias HEMATOLOGICAL: denies easy bruising SKIN: denies rash PSYCHIATRIC: Unremarkable All other review of systems found to be negative. PHYSICAL EXAMINATION: VITAL SIGNS: Please see below. GENERAL: Pleasant and cooperative. No acute distress. HEENT: PERRL. Extraocular movements intact. Clear conjunctiva CARDIOVASCULAR: Regular rate and rhythm. No murmurs, rubs, or gallops LUNGS: Clear to auscultation bilaterally. No wheezes. No rhonchi ABDOMEN: Soft, nontender, nondistended. Positive bowel sounds. Normal active bowel sounds NEUROLOGICAL: Alert and oriented times three. Cranial nerves II through XII gr ossly intact. Sensation grossly intact EXTREMITIES: 5-/5 strength bilateral upper extremities.5-\5 strength right lower extremity. 5-/5 strength in left lower extremity. +bilat LE edema (improved) ASSESSMENT:80-year-old F with past medical history of bipolar, HTN who presents with debility in setting of UTI and electrolyte abnormalities PLAN: 1. REhab- PT/OT advance mobility and ADls, strengthen/stretch/maintain ROM all 4limbs, balance training, endurance, fall recovery- room privileges in place -FENDER MECHANIC currently seeing patient for cog, will ask to work on medication management as well 2. Cardiac- Hx of HTN cont bP meds, adjust prn -patient with LE edema that improved with short course of Aldactone (unable to use lasix/thiazide due to drug interactions with her psych meds) 3. Resp- monitor for infection, encourage incentive spirometry -consulted pulmonology and oncology to review with patient and discuss plan for incidental lung nodules seen on recent CT Chest, patient reporting her mother had TB- pulm recs appreciated, patient will f/u in 3 months for further imaging 4. Endo- hx of hypothyroidism cont synthroid 5. Psych- hx of bipolar cont lamotrigine, lithium, Adderall, lurasidone 6. GI- recent +FOBT cont sucralfate and protonix, patient has seen gen surg and has f/u on 04-24-21 for endoscopy -monitor h/h 7. DVT ppx- heparin 8. Pain- tylenol prn 9. - patient was started on Keflex outpatient for UTI, repeat UA negative, patient asymptomatic, d/c'd 10. Hypermagnesemia- d/c'd Mg supplement 11. Hypernatremia- on admission resolved (patient started on short course diure tic) 12. PAtient signed MOLST and wishes to be DNR/I 13. Dispo to [facility] 04-16-21, prgoressing towards goals Allergies Coded Allergies: bee venom protein (honey bee) (Verified Allergy, Intermediate, swelling, 03/31/21) doxycycline (Verified Allergy, Intermediate, itch, 03/31/21) Sulfa (Sulfonamide Antibiotics) (Verified Allergy, Unknown, 03/31/21) Vital Signs Vital Signs Date Time Temp Pulse Resp B/P (MAP) Pulse Ox O2 Delivery O2 Flow Rate FiO2 04/10/21 08:44 84 131/68 04/10/21 06:00 98.4 19 100 Room Air Laboratory Data CBC/BMP Laboratory Tests 04/09/21 10:12 Labs 24H Laboratory Tests 2 04/09/21 10:12: Immature Granulocyte % (Auto) 0.3, Neutrophils (%) (Auto) 57.0, Lymphocytes (%) (Auto) 26.4, Monocytes (%) (Auto) 11.3H, Eosinophils (%) (Auto) 4.4H, Basophils (%) (Auto) 0.6, Neutrophils # (Auto) 5.5, Lymphocytes # (Auto) 2.6, Monocytes # (Auto) 1.1H, Eosinophils # (Auto) 0.4, Basophils # (Auto) 0.1, Nucleated Red Blood Cells % (auto) 0.0, Anion Gap 4L, Glomerular Filtration Rate 51.5, Calcium Level 9.6 Current Medications Current Medications Current Medications Medications (Trade) Dose Ordered Sig/Saima Route PRN Reason Start Time Stop Time Status Last Admin Dose Admin Acetaminophen (Tylenol Tab) 650 mg Q4HP PRN PO fever/MILD PAIN (PS 1-4) 04/04/21 14:30 04/06/21 05:12 Amlodipine Besylate (Norvasc) 10 mg DAILY PO 04/05/21 09:00 04/10/21 08:44 Amphetamine/ Dextroamphetamine (Adderall) 20 mg QAM PO 04/05/21 09:00 04/10/21 08:44 Artificial Tears (Akwa Tears) 2 drop TID OU 04/04/21 16:00 04/10/21 08:45 Heparin Sodium (Porcine) (Heparin) 5,000 units Q12H SC 04/04/21 21:00 04/10/21 08:44 Home Med (Home Med List Complete!) ASDIRECTED XX 04/04/21 20:30 04/04/21 20:29 DC Hydralazine HCl (Apresoline) 25 mg Q6H PRN PO sbp >140 04/04/21 14:30 04/06/21 05:13 Lactobacillus Acidophilus (Bacid) 1 ea WMHS PO 04/04/21 18:00 04/10/21 08:43 Lamotrigine (LaMICtal) 25 mg QAM PO 04/05/21 09:00 04/10/21 08:45 Lamotrigine (LaMICtal) 200 mg QAM PO 04/05/21 09:00 04/10/21 08:45 Levothyroxine Sodium (Synthroid) 50 mcg DAILY@06 PO 04/05/21 06:00 04/10/21 05:16 [place] Carbonate ([place] Carbonate) 300 mg QHS PO 04/04/21 21:00 04/09/21 21:26 Lurasidone HCl (Latuda) 40 mg DAILY@18 PO 04/04/21 18:00 04/09/21 17:12 Magnesium Oxide (Mag-Ox) 400 mg DAILY PO 04/05/21 09:00 04/07/21 10:11 DC 04/06/21 07:43 Pantoprazole Sodium (Protonix) 40 mg DAILY PO 04/05/21 09:00 04/10/21 08:43 Polyethylene Glycol (Miralax) 1 pkt DAILY PRN PO CONSTIPATION 04/04/21 14:30 Simethicone (Mylicon) 80 mg QIDP PRN PO BLOATING 04/04/21 14:30 Spironolactone (Aldactone) 12.5 mg DAILY PO 04/04/21 09:00 04/09/21 11:25 DC 04/09/21 08:26 Sucralfate (Carafate) 1 gm ACHS PO 04/04/21 17:30 04/10/21 08:43 Vitamin B Complex/ Vitamin C (Therapeutic B Complex w/C) 1 cap DAILY PO 04/05/21 09:00 04/10/21 08:44 Vitamin D (Vitamin D) 2,000 units DAILY PO 04/05/21 09:00 04/10/21 08:44 DERICK MACIAS MD Apr 10, 2021 09:28
[2021-04-10] MEDS ORDERED: LITH150C PO (11:48)
--- NOTE | 2021-04-10 13:00 | CR.PDOC ---
General Date of Consultation: Apr 10, 2021 Referring Provider: DERICK MACIAS MD Attending Physician: DERICK MACIAS MD Consultation REASON FOR CONSULTATION: Pulmonary nodule. HISTORY OF PRESENT ILLNESS: 80-year-old on regular follow-up with me for history of breast cancer in 2018. Admitted to [facility] after a fall and for weakness 04/02/2021. Currently admitted to rehab. While under hospitalist service, she had a thoracic spine x-ray with findings of advanced thoracic kyphosis and demineralization of bones. CT was recommended. Thoracic spine CT 04/02/2021 showed a right lung nodule. CT chest 04/03/2021 showed a right apical nodule 1.9 cm in size. Pulmonology was consulted. Diagnostic options were offered. Ultimately it was decided that she would have a follow-up imaging study in 3 months. Medical oncology consulted for the same. ALLERGIES: Please see below. HOME MEDICATIONS: Please see below. PAST MEDICAL HISTORY: Bipolar disorder. Hypertension. Thyroid disorder. Facial skin cancer. FAMILY HISTORY No family history of cancer. SOCIAL HISTORY Lifetime nonsmoker. Does not drink. . 2 Biological children one of which of SLE. REVIEW OF SYSTEMS: Generalized weakness, improving on rehab. Rest of review of systems negative. PHYSICAL EXAMINATION: VITAL SIGNS: Please see below. GENERAL APPEARANCE: Alert, communicative, seen ambulating slowly around bed. HEENT: Pinkish conjunctive anicteric, atraumatic, normocephalic. RESPIRATORY: Fair air entry. No rales rhonchi no wheeze. CARDIOVASCULAR: S1-S2 regular. No murmur. No gallop. ABDOMEN: Soft, nontender, no guarding. EXTREMITIES: Trace bipedal edema. No cyanosis. No clubbing NEUROLOGICAL: Alert, oriented to time place and person PSYCHIATRIC: Normal mood. LABORATORY DATA: Please see below. ASSESSMENT/PLAN: 80-year-old with history of early stage breast cancer treated in 2018 with wide local excision. The patient declined adjuvant endocrine therapy and radiation therapy at that time. Recent CT chest 04/03/2020 showed pulmonary nodules. Specifically noted was a ri ght apical nodule 1.9 cm in size, a right middle lobe nodule 3 mm in size, a right intrafissural nodule 9 mm in size. I discussed diagnostic/management options which include a biopsy, a PET CT scan or observation at this time. The patient has opted to proceed with a PET CT scan. We will arrange for this to be done once patient is discharged from the hospital. Thank you for informing us of MsLm Puga's admission. Vital Signs/I&O Vital Signs Date Time Temp Pulse Resp B/P (MAP) Pulse Ox O2 Delivery O2 Flow Rate FiO2 04/10/21 08:44 84 131/68 04/10/21 06:00 98.4 19 100 Room Air I&O- Last 24 Hours up to 6 AM 04/10/21 06:00 Intake Total 1950 ml Output Total 0 ml Balance 1950 ml Allergies Coded Allergies: bee venom protein (honey bee) (Verified Allergy, Intermediate, swelling, 03/31/21) doxycycline (Verified Allergy, Intermediate, itch, 03/31/21) Sulfa (Sulfonamide Antibiotics) (Verified Allergy, Unknown, 03/31/21) Home Medications Scheduled Amlodipine Besylate (Norvasc) 10 Mg Tablet, 10 MG PO DAILY, (Reported) Dextroamphetamine/Amphetamine (Adderall 20 mg Tablet) 20 Mg Tablet, 20 MG PO DAILY, (Reported) Ergocalciferol (Vitamin D2) (Vitamin D2) 50,000 Units Cap, 50,000 UNITS PO QWEEK, (Reported) SATURDAYS L.acidoph/L.bulg/B.bif/S.therm (Bacid Caplet) 1 Each Tablet, 1 TAB PO TID, (Reported) Lamotrigine (Lamotrigine) 150 Mg Tablet, 225 MG PO DAILY, (Reported) Levothyroxine Sodium (Synthroid) 50 Mcg Tablet, 50 MCG PO DAILY, (Reported) [place] Carbonate (O'Neill Carbonate) 300 Mg Capsule, 300 MG PO QHS, (Reported) [place]'Neill Carbonate (O'Neill Carbonate) 150 Mg Capsule, 150 MG PO QAM, (Reported) Lurasidone Hydrochloride (Latuda) 40 Mg Tablet, 40 MG PO QPM, (Reported) TAKES AT DINNERTIME Magnesium Oxide (Magnesium) 400 Mg Capsule, 400 MG PO QHS, (Reported) Pantoprazole Sodium (Pantoprazole Sodium) 40 Mg Tablet.dr, 40 MG PO DAILY, (Reported) Sucralfate (Sucralfate) 1 Gm Tablet, 1 GM PO ACHS, (Reported) Vilazodone HCl (Viibryd) 40 Mg Tablet, 40 MG PO DAILY, (Reported) Vitamin B Complex (Vitamin B Complex) 1 Each Tablet, 1 TAB PO Q2D, (Reported) [Cephalexin Monohydrate] 250 MG CAP, 250 MG PO Q6H for 5 Days, #20 MARY CARMEN ZABALA MD FACP Apr 10, 2021 13:00
[2021-04-10 14:00] VITALS: BP 130/70
[2021-04-10] MEDS: LURASIDONE HCL 40 MG TAB (LATUDA) PO SCH (17:26)
[2021-04-10 20:00] VITALS: BP 142/65
[2021-04-10] MEDS: LITHIUM CARBONATE 300 MG CAP PO SCH (20:37)
[2021-04-11 04:39] VITALS: BP 146/68
[2021-04-11] MEDS: LEVOTHYROXINE 50MCG TABLET (0.05MG) PO SCH (05:59)
[2021-04-11 07:03] LABS: BASO # 0.1 10^3/uL (0.0-0.2); BASO % 0.9 % (0.0-1.0); EOS # 0.5 10^3/uL (0.0-0.5); EOS % 5.1 % (0.0-3.0); HEMATOCRIT 32.8 % (36.0-47.0); HEMOGLOBIN 10.2 g/dl (12.0-15.5); LYMPH # 2.8 10^3/uL (1.5-5.0); LYMPH % 29.8 % (24.0-44.0); MEAN CORPUSCULAR HEMOGLOBIN 30.5 pg (27.0-33.0); MEAN CORPUSCULAR HGB CONC 31.1 g/dl (32.0-36.5); MEAN CORPUSCULAR VOLUME 98.2 fl (80.0-96.0); MONO # 1.2 10^3/uL (0.0-0.8); MONO % 12.3 % (2.0-8.0); NEUTROPHILS # 4.9 10^3/uL (1.5-8.5); NEUTROPHILS % 51.4 % (36.0-66.0); PLATELET COUNT, AUTOMATED 356 10^3/uL (150-450); RED BLOOD COUNT 3.34 10^6/uL (4.00-5.40); WHITE BLOOD COUNT 9.5 10^3/uL (4.0-10.0)
[2021-04-11 07:34] LABS: CALCIUM LEVEL 9.5 MG/DL (8.8-10.2); CREATININE FOR GFR 1.03 MG/DL (0.55-1.30); POTASSIUM SERUM 4.2 MEQ/L (3.5-5.1)
[2021-04-11] MEDS: VITAMIN B COMPLEX/VIT C CAP PO SCH (08:51)
[2021-04-11] MEDS: SUCRALFATE 1 GM TAB PO SCH ×4 (08:51→21:56)
[2021-04-11] MEDS: LACTOBACILLUS ACIDOPHILUS CAP (BACID) PO SCH ×4 (08:51→21:56)
[2021-04-11] MEDS: PANTOPRAZOLE 40MG TAB (PROTONIX) PO SCH (08:51)
[2021-04-11] MEDS: VITAMIN D 1,000 INTERNATIONAL UNITS TABLET PO SCH (08:52)
[2021-04-11] MEDS: lamoTRIgine 100MG TAB PO SCH (08:52)
[2021-04-11] MEDS: ADDERALL 5 MG TAB PO SCH (08:52)
[2021-04-11] MEDS: lamoTRIgine 25MG TAB PO SCH (08:52)
[2021-04-11] MEDS: REMEDY PHYTOPLEX Z-GUARD PASTE 113GM TUBE (FROM STOREROOM PRODUCT) TOP SCH ×3 (08:53→21:00)
[2021-04-11] MEDS: POLYVINYL ALCOHOL OPHTH SOLN 15 ML(LIQUITEARS) OU SCH ×3 (08:53→21:56)
[2021-04-11] MEDS: HEPARIN SOD (PORCINE) 5000UNITS/ML 1ML VIAL/SYRINGE SC SCH ×2 (08:59→21:56)
--- NOTE | 2021-04-11 12:41 | IPNPDOC ---
Text Note Date of Service The patient was seen on 04/11/21. NOTE Subjective: Patient is doing well. No complaints at this time Physical exam: Vitals: See below General: Alert and oriented female patient was sitting the bedside chair eating lunch when I walked in the room. Patient not appear to be in any acute distress. HEENT: Normocephalic, atraumatic, moist mucous membranes. Neck: No lymphadenopathy or thyromegaly Cardiac: Regular rate and rhythm, no murmurs, normal S1, normal S2 Pulm: Clear to auscultation bilaterally. No wheezes, rhonchi, rales Abd: Nondistended, nontender to palpation, normal bowel sounds Ext: No edema bilateral lower extremities Labs: Reviewed Imaging: No new imaging has been performed Assessment/plan: 80-year-old female presented hospital frequent falls and weakness was unable to pass physical therapy evaluation in the emergency department. Patient was discharged in the acute medical floor and is now currently in the acute rehab unit. 1. Weakness and debility. This may be secondary to a urinary tract infection. Patient is very weak and unable to care for self. Patient lives in a two-story home. Patient is now in the acute rehab unit and will continue with PT and OT. Once ready for discharge from acute rehab unit, patient will be going to an assisted living facility. 2. Hypertension. Continue patient's home medications 3. Urinary tract infection diagnosis outpatient continue Keflex as prescribed for 5 more days. 4. Lung nodule seen on chest CT. Patient will need a PET scan performed outpatient. The patient has a history of breast cancer and this could likely be a metastatic disease. Dr. Pichardo from heme-onc is following 5. Bipolar disorder. Continue home medications. DVT Prophylaxis: Heparin Disposition: Discharge per Dr. Allen and the ARU staff. VS,Fishbone, I+O VS, Fishbone, I+O Laboratory Tests 04/11/21 06:18 Vital Signs Date Time Temp Pulse Resp B/P (MAP) Pulse Ox O2 Delivery O2 Flow Rate FiO2 04/11/21 08:53 93 146/68 04/11/21 04:39 97.6 18 100 Room Air I&O- Last 24 Hours up to 6 AM 04/11/21 05:59 Intake Total 820 ml Output Total 0 ml Balance 820 ml KIRIT TOWNSEND MD Apr 11, 2021 12:41
[2021-04-11 14:00] VITALS: BP 147/68
[2021-04-11] MEDS: LURASIDONE HCL 40 MG TAB (LATUDA) PO SCH (18:31)
[2021-04-11 20:00] VITALS: BP 156/72
[2021-04-11] MEDS: LITHIUM CARBONATE 300 MG CAP PO SCH (21:56)
[2021-04-12] MEDS: LEVOTHYROXINE 50MCG TABLET (0.05MG) PO SCH (05:39)
[2021-04-12 06:00] VITALS: BP 128/58
[2021-04-12] MEDS: LACTOBACILLUS ACIDOPHILUS CAP (BACID) PO SCH ×4 (08:19→21:34)
[2021-04-12] MEDS: VITAMIN B COMPLEX/VIT C CAP PO SCH (08:19)
[2021-04-12] MEDS: ADDERALL 5 MG TAB PO SCH (08:19)
[2021-04-12] MEDS: VITAMIN D 1,000 INTERNATIONAL UNITS TABLET PO SCH (08:19)
[2021-04-12] MEDS: POLYVINYL ALCOHOL OPHTH SOLN 15 ML(LIQUITEARS) OU SCH ×3 (08:19→21:35)
[2021-04-12] MEDS: SUCRALFATE 1 GM TAB PO SCH ×4 (08:20→21:34)
[2021-04-12] MEDS: HEPARIN SOD (PORCINE) 5000UNITS/ML 1ML VIAL/SYRINGE SC SCH ×2 (08:20→21:35)
[2021-04-12] MEDS: lamoTRIgine 100MG TAB PO SCH (08:20)
[2021-04-12] MEDS: PANTOPRAZOLE 40MG TAB (PROTONIX) PO SCH (08:20)
[2021-04-12] MEDS: lamoTRIgine 25MG TAB PO SCH (08:20)
[2021-04-12] MEDS: REMEDY PHYTOPLEX Z-GUARD PASTE 113GM TUBE (FROM STOREROOM PRODUCT) TOP SCH ×3 (08:21→21:00)
[2021-04-12 14:00] VITALS: BP 148/68
[2021-04-12] MEDS: LURASIDONE HCL 40 MG TAB (LATUDA) PO SCH (17:20)
[2021-04-12] MEDS: **hydrALAZINE HCL** 25 MG TAB PO PRN (17:21)
[2021-04-12 20:00] VITALS: BP 126/64
[2021-04-12] MEDS: LITHIUM CARBONATE 300 MG CAP PO SCH (21:34)
[2021-04-13] MEDS: LEVOTHYROXINE 50MCG TABLET (0.05MG) PO SCH (05:47)
[2021-04-13 06:00] VITALS: BP 144/70
[2021-04-13] MEDS: HEPARIN SOD (PORCINE) 5000UNITS/ML 1ML VIAL/SYRINGE SC SCH ×2 (07:58→21:00)
[2021-04-13] MEDS: lamoTRIgine 25MG TAB PO SCH (07:59)
[2021-04-13] MEDS: lamoTRIgine 100MG TAB PO SCH (07:59)
[2021-04-13] MEDS: VITAMIN B COMPLEX/VIT C CAP PO SCH (08:00)
[2021-04-13] MEDS: LACTOBACILLUS ACIDOPHILUS CAP (BACID) PO SCH ×4 (08:00→21:21)
[2021-04-13] MEDS: SUCRALFATE 1 GM TAB PO SCH ×4 (08:00→21:21)
[2021-04-13] MEDS: PANTOPRAZOLE 40MG TAB (PROTONIX) PO SCH (08:00)
[2021-04-13] MEDS: ADDERALL 5 MG TAB PO SCH (08:00)
[2021-04-13] MEDS: VITAMIN D 1,000 INTERNATIONAL UNITS TABLET PO SCH (08:01)
[2021-04-13] MEDS: REMEDY PHYTOPLEX Z-GUARD PASTE 113GM TUBE (FROM STOREROOM PRODUCT) TOP SCH ×3 (08:04→21:22)
[2021-04-13] MEDS: POLYVINYL ALCOHOL OPHTH SOLN 15 ML(LIQUITEARS) OU SCH ×3 (08:05→21:22)
[2021-04-13 14:00] VITALS: BP 130/63
[2021-04-13] MEDS: LURASIDONE HCL 40 MG TAB (LATUDA) PO SCH (17:03)
[2021-04-13] MEDS: LITHIUM CARBONATE 300 MG CAP PO SCH (21:21)
[2021-04-13 21:35] VITALS: BP 144/70
[2021-04-14] MEDS: LEVOTHYROXINE 50MCG TABLET (0.05MG) PO SCH (05:15)
[2021-04-14 06:00] VITALS: BP 142/83
[2021-04-14] MEDS: HEPARIN SOD (PORCINE) 5000UNITS/ML 1ML VIAL/SYRINGE SC SCH ×2 (08:10→08:21)
[2021-04-14] MEDS: LACTOBACILLUS ACIDOPHILUS CAP (BACID) PO SCH ×2 (08:10→12:30)
[2021-04-14] MEDS: PANTOPRAZOLE 40MG TAB (PROTONIX) PO SCH (08:10)
[2021-04-14] MEDS: SUCRALFATE 1 GM TAB PO SCH ×2 (08:11→12:00)
[2021-04-14] MEDS: VITAMIN D 1,000 INTERNATIONAL UNITS TABLET PO SCH (08:11)
[2021-04-14] MEDS: VITAMIN B COMPLEX/VIT C CAP PO SCH (08:11)
[2021-04-14] MEDS: ADDERALL 5 MG TAB PO SCH (08:17)
[2021-04-14 08:18] VITALS: BP 142/83
[2021-04-14] MEDS: REMEDY PHYTOPLEX Z-GUARD PASTE 113GM TUBE (FROM STOREROOM PRODUCT) TOP SCH (08:18)
[2021-04-14] MEDS: POLYVINYL ALCOHOL OPHTH SOLN 15 ML(LIQUITEARS) OU SCH (08:18)
[2021-04-14] MEDS: lamoTRIgine 25MG TAB PO SCH (08:18)
[2021-04-14] MEDS: lamoTRIgine 100MG TAB PO SCH (08:18)
[2021-04-14] MEDS ORDERED: PANT-23 PO (09:21)
[2021-04-14] MEDS ORDERED: SYNT50TA PO (09:21)
[2021-04-14] MEDS ORDERED: AMLO10TA PO (09:21)
[2021-04-14] MEDS ORDERED: SUCR1TAB56 PO (09:21)
--- NOTE | 2021-04-14 09:36 | IPNPDOC ---
PM&R Progress Note DATE OF SERVICE: Apr 11, 2021 Regional Production Manager Progress Note Subjective: Patient seen in her room stating she feels safe walking around without a walker and understands she no will go home prior to going to [facility]. REVIEW OF SYSTEMS: The following is a completed review of systems and has been reviewed. Review of systems otherwise unremarkable. PAIN: Patient self reports no pain EYES: No recent vision changes EARS, NOSE, & THROAT: No throat pain, or dysphagia, or rhinorrhea CARDIOVASCULAR: Denies chest pain or palpitations PULMONARY: Denies shortness of breath GASTROINTESTINAL: Denies constipation/diarrhea GENITOURINARY: denies dysuria MUSCULOSKELETAL: generalized weakness NEUROLOGICAL:denies paresthesias HEMATOLOGICAL: denies easy bruising SKIN: denies rash PSYCHIATRIC: Unremarkable All other review of systems found to be negative. PHYSICAL EXAMINATION: VITAL SIGNS: Please see below. GENERAL: Pleasant and cooperative. No acute distress. HEENT: PERRL. Extraocular movements intact. Clear conjunctiva CARDIOVASCULAR: Regular rate and rhythm. No murmurs, rubs, or gallops LUNGS: Clear to auscultation bilaterally. No wheezes. No rhonchi ABDOMEN: Soft, nontender, nondistended. Positive bowel sounds. Normal active bowel sounds NEUROLOGICAL: Alert and oriented times three. Cranial nerves II through XII grossly intact. Sensation grossly intact EXTREMITIES: 5-/5 strength bilateral upper extremities.5-\5 strength right lower extremity. 5-/5 strength in left lower extremity. +bilat LE edema (improved) ASSESSMENT:80-year-old F with past medical history of bipolar, HTN who presents with debility in setting of UTI and electrolyte abnormalities PLAN: 1. REhab- PT/OT advance mobility and ADls, strengthen/stretch/maintain ROM all 4limbs, balance training, endurance, fall recovery- room privileges in place -AQUATIC FACILITY MANAGER currently seeing patient for cog, will ask to work on medication management as well 2. Cardiac- Hx of HTN cont bP meds, adjust prn -patient with LE edema that improved with short course of Aldactone (unable to use lasix/thiazide due to drug interactions with her psych meds) 3. Resp- monitor for infection, encourage incentive spirometry -consulted pulmonology and oncology to review with patient and discuss plan for incidental lung nodules seen on recent CT Chest, patient reporting her mother had TB- pulm recs appreciated, patient will f/u in 3 months for further imaging 4. Endo- hx of hypothyroidism cont synthroid 5. Psych- hx of bipolar cont lamotrigine, lithium, Adderall, lurasidone 6. GI- recent +FOBT cont sucralfate and protonix, patient has seen gen surg and has f/u on 04-24-21 for endoscopy -monitor h/h 7. DVT ppx- heparin 8. Pain- tylenol prn 9. - patient was started on Keflex outpatient for UTI, repeat UA negative, patient asymptomatic, d/c'd 10. Hypermagnesemia- d/c'd Mg supplement 11. Hypernatremia- on admission resolved (patient started on short course diuretic) 12. PAtient signed MOLST and wishes to be DNR/I 13. Dispo to home 04/14/21 Allergies Coded Allergies: bee venom protein (honey bee) (Verified Allergy, Intermediate, swelling, 03/31/21) doxycycline (Verified Allergy, Intermediate, itch, 03/31/21) Sulfa (Sulfonamide Antibiotics) (Verified Allergy, Unknown, 03/31/21) Vital Signs Vital Signs Date Time Temp Pulse Resp B/P (MAP) Pulse Ox O2 Delivery O2 Flow Rate FiO2 04/14/21 08:18 87 142/83 04/14/21 06:00 98.1 20 96 Room Air Current Medications Current Medications Current Medications Medications (Trade) Dose Ordered Sig/Saima Route PRN Reason Start Time Stop Time Status Last Admin Dose Admin Acetaminophen (Tylenol Tab) 650 mg Q4HP PRN PO fever/MILD PAIN (PS 1-4) 04/04/21 14:30 04/06/21 05:12 Amlodipine Besylate (Norvasc) 10 mg DAILY PO 04/05/21 09:00 04/14/21 08:18 Amphetamine/ Dextroamphetamine (Adderall) 20 mg QAM PO 04/05/21 09:00 04/14/21 08:17 Artificial Tears (Akwa Tears) 2 drop TID OU 04/04/21 16:00 04/14/21 08:18 Heparin Sodium (Porcine) (Heparin) 5,000 units Q12H SC 04/04/21 21:00 04/13/21 07:58 Home Med (Home Med List Complete!) ASDIRECTED XX 04/04/21 20:30 04/04/21 20:29 DC Hydralazine HCl (Apresoline) 25 mg Q6H PRN PO sbp >140 04/04/21 14:30 04/12/21 17:21 Lactobacillus Acidophilus (Bacid) 1 ea WMHS PO 04/04/21 18:00 04/14/21 08:10 Lamotrigine (LaMICtal) 25 mg QAM PO 04/05/21 09:00 04/14/21 08:18 Lamotrigine (LaMICtal) 200 mg QAM PO 04/05/21 09:00 04/14/21 08:18 Levothyroxine Sodium (Synthroid) 50 mcg DAILY@06 PO 04/05/21 06:00 04/14/21 05:15 [place] Carbonate ([place] Carbonate) 300 mg QHS PO 04/04/21 21:00 04/13/21 21:21 Lurasidone HCl (Latuda) 40 mg DAILY@18 PO 04/04/21 18:00 04/13/21 17:03 Magnesium Oxide (Mag-Ox) 400 mg DAILY PO 04/05/21 09:00 04/07/21 10:11 DC 04/06/21 07:43 Pantoprazole Sodium (Protonix) 40 mg DAILY PO 04/05/21 09:00 04/14/21 08:10 Polyethylene Glycol (Miralax) 1 pkt DAILY PRN PO CONSTIPATION 04/04/21 14:30 Simethicone (Mylicon) 80 mg QIDP PRN PO BLOATING 04/04/21 14:30 Spironolactone (Aldactone) 12.5 mg DAILY PO 04/04/21 09:00 04/09/21 11:25 DC 04/09/21 08:26 Sucralfate (Carafate) 1 gm ACHS PO 04/04/21 17:30 04/14/21 08:11 Vitamin B Complex/ Vitamin C (Therapeutic B Complex w/C) 1 cap DAILY PO 04/05/21 09:00 04/14/21 08:11 Vitamin D (Vitamin D) 2,000 units DAILY PO 04/05/21 09:00 04/14/21 08:11 DERICK MACIAS MD Apr 14, 2021 09:36
--- NOTE | 2021-04-14 10:28 | PMRDS ---
NAME: MURALI SULLIVAN [facility] WT ID#: [id number] JOB: [id number] RHONDA: 04/04/2021 ACCT: [id number] DOCTOR: DERICK MACIAS MD PMR DISCHARGE SUMMARY DATE OF ADMISSION: 04/04/2021 DATE OF DISCHARGE: 04/14/2021 CHIEF COMPLAINT/DISCHARGE DIAGNOSIS: Debility related to UTI and electrolyte abnormalities. HISTORY OF PRESENT ILLNESS: This is a 80-year-old female with a past medical history of hypothyroidism, hypertension, bipolar, breast cancer, status post lumpectomy, recent hospital admission for diarrhea, where she was noted to have a positive FBOT and is scheduled for an endoscopy with General Surgery in early April. Presented to [facility] ED on 04/02/21 complaining of weakness, multiple falls at home and was admitted for a UTI, hypokalemia and hypernatremia. She was given IVF and continued on antibiotics. CT of the chest was performed showing multiple incidental nodules with recommendations to follow-up with PET scan. She was noted to have mobility and ADL impairments in therapy and deemed medically appropriate for discharge to ARU. PAST MEDICAL HISTORY: As per HPI. HOSPITAL COURSE: Patient was admitted and enrolled in a comprehensive PT/OT, Speech Language Pathology Program. She received 24 hour nursing supervision and weekly team meetings were held to discuss her progress. There was an incidental finding on CT of the chest showing multiple lung nodules for which pulmonology and oncology were consulted. Oncology agreed to follow this case and to see patient in their clinic for PET scan upon discharge from ARU. Patient's hemoglobin and hematocrit were stable during her hospital course and she was inserted to follow-up with general surgery for her scheduled endoscopy. She was noted to have hypermagnesemia and her magnesemia supplement was discontinued and her hypernatremia resolved after a short course of Aldactone which was initiated for lower extremity edema. Patient made steady gains in therapy and was deemed medically and functionally stable to return home. DISCHARGE MEDICATIONS: As per instructions. FUNCTIONAL HISTORY ON DISCHARGE: Patient was modified independent for mobility and ADLs. Thank you for this referral.
[2021-04-14 11:01] LABS: CALCIUM LEVEL 9.7 MG/DL (8.8-10.2); CREATININE FOR GFR 1.12 MG/DL (0.55-1.30); POTASSIUM SERUM 3.9 MEQ/L (3.5-5.1)
[2021-04-14 11:45] LABS: BASO # 0.1 10^3/uL (0.0-0.2); EOS # 0.3 10^3/uL (0.0-0.5); EOS % 3.6 % (0.0-3.0); HEMATOCRIT 35.1 % (36.0-47.0); HEMOGLOBIN 10.9 g/dl (12.0-15.5); LYMPH # 2.5 10^3/uL (1.5-5.0); LYMPH % 26.3 % (24.0-44.0); MEAN CORPUSCULAR HEMOGLOBIN 30.6 pg (27.0-33.0); MEAN CORPUSCULAR HGB CONC 31.1 g/dl (32.0-36.5); MEAN CORPUSCULAR VOLUME 98.6 fl (80.0-96.0); MONO # 1.1 10^3/uL (0.0-0.8); MONO % 11.8 % (2.0-8.0); NEUTROPHILS # 5.4 10^3/uL (1.5-8.5); NEUTROPHILS % 57.1 % (36.0-66.0); PLATELET COUNT, AUTOMATED 379 10^3/uL (150-450); RED BLOOD COUNT 3.56 10^6/uL (4.00-5.40); WHITE BLOOD COUNT 9.4 10^3/uL (4.0-10.0)
[2021-04-15] MEDS ORDERED: B COCAP4 PO (12:51)
[2021-04-15] MEDS ORDERED: MAGN400C PO (12:51)
[2021-04-15] MEDS ORDERED: FURO40TA2 PO (12:51)
== END 2021-04-14 13:05 | disposition home or self-care (01) | DRG 556 ==
LOC: M PM&R 13:09
PROVIDERS: ADMIT Physical Medicine & Rehabilitation; ATTEND Physical Medicine & Rehabilitation
DX: M62.81 Muscle weakness (generalized) (principal); E87.1 Hypo-osmolality and hyponatremia; E03.9 Hypothyroidism, unspecified; I10 Essential (primary) hypertension; F31.9 Bipolar disorder, unspecified; Z85.3 Personal history of malignant neoplasm of breast; R29.6 Repeated falls; Z74.09 Other reduced mobility; Z74.1 Need for assistance with personal care; R53.1 Weakness; R91.8 Other nonspecific abnormal finding of lung field; Z66 Do not resuscitate; Z79.899 Other long term (current) drug therapy; Z88.1 Allergy status to other antibiotic agents; Z88.2 Allergy status to sulfonamides; Z91.030 Bee allergy status; E83.41 Hypermagnesemia

== ENCOUNTER → 2021-04-19 | Outpatient (CLI) | payer MEDICARE, OTHER ==
[~2021-04-19] MED LIST changes: +B COCAP4 PO
== END ==
LOC: M LABSMTC 11:35
PROVIDERS: ATTEND Anesthesiology
DX: Z01.812 Encounter for preprocedural laboratory examination (principal); Z20.822 Contact with and (suspected) exposure to COVID-19

== ENCOUNTER 2021-04-24 10:20 | Day surgery (SDC) | payer MEDICARE, OTHER ==
[~2021-04-24] VITALS: Ht 154.9 cm; Wt 67.0 kg
[~2021-04-24 10:20] MED LIST changes: +LIDOCAINE 2% 100MG/5ML SDV (FOR ANES.) As Ordered ONE; +NS 1,000 ML IV ONE; +propofoL 200 MG/20 ML VIAL As Ordered ONE
--- OUTSIDE RECORDS SUMMARY | 2021-04-24 10:25 | CCD | Continuity of Care Document ---
Author Author Rachel MURILLO D.O. Organization Unknown Address [address] [place] [address] Phone [phone] Care Team Providers Care Route Sales Driver Name Role Phone Temitope Murillo D.O. AUTM Chapincito Hardy MD AUTM [phone] [facility] AUTM [phone] Jose Benton MD AUTM [phone] [facility] AUTM [phone] [facility] AUTM [phone] Beth Morgan M.D. AUTM [phone] [facility] AUTM [phone] [facility] AUTM [phone] Problems Active Problems Provider Date Moderate recurrent [...] times daily until gone 21tabs Temitope urbano, DLmO. 03/30/2021 Walker Wheels/Fixed With 5 Adjustment Ho les/3" Fixed 3" Misc 1 as directed dx: Dysarthria, frequent falls. [place] KlineOLm 07/18/2020 Ergocalciferol 1.25mg (90520 Ut) C apsules take 1 weekly until [...] Daily Maximum Daily Dose One Tablet Unknown [place] Carbonate 150mg Capsules 1 cap by mouth [...] an empty stomach 90tabs Temitope Murillo D.O. [place] Carbonate 300mg Capsules Take One Capsule By [...] F O2 % BldC Oximetry 96 % [place] Body Weight 100 lb 02/24/2021 1:02pm BP Systolic 120 mmHg BP Diastolic 70 mmHg Height 59.6 inches 4'11.60" Weight 156.38 lb BMI (Body Mass Index) 30.9 kg/m2 Heart Rate 99 /min Respiratory Rate 12 /min Body Temperature 98.0 F O2 % BldC Oximetry 99 % [place] Body Weight 100 lb Results Test Acquired Date Facility Test Result H/L Range Note Coronavirus 2019 Nasopharygeal 04/19/2021 [facility] Outpa tient Testing (Registration) [address] [place] [address] [phone] Coronavirus 2019 Nasopharygeal ASSAY INFORMATIO <SEE N OTE> 1 Ua Routine 04/02/2021 [facility] Outpatient Testi ng (Registration) [address] [place] [address] [phone] Appearance, Urine CLEAR Normal Clear Color, Urine STRAW Normal Yellow PH,Urine 7.0 units Normal 5.0-9.0 Specific [place] Urine Auto 1.004 Normal 1.002-1.035 Protein, Urine [...] 0 /HPF Normal 0-3 Bacteria, Urine Auto 1+ High Negative Squamous Epithelial Cell Ur AU 0 /HPF Normal 0-6 Hyaline Cast, Urine Auto 0 /LPF Normal 0-1 Laboratory test finding 03/27/2021 [facility] Outpatient T esting (Registration) [address] [place] [address] [phone] Urine Culture FULL REPORT IN L <SEE NOTE> Normal 2 Ua Routine 03/27/2021 [facility] Outpatient Testi ng (Registration) [address] [place] [address] [phone] Appearance, Urine CLEAR Normal Clear Color, Urine STRAW Normal Yellow PH,Urine 6.0 units Normal 5.0-9.0 Specific [place] Urine Auto 1.004 Normal 1.002-1.035 Protein, Urine [...] Cast, Urine Auto 0 /LPF Normal 0-1 Cardiac Marker Panel 01/26/2021 [facility] Outpatient Test ing (Registration) [address] [place] [address] [phone] CPK Creatine Phosphokinase 97 U/L Normal 26-19 2 CK-MB Value Mass 1.7 NG/ML Normal <3.6 MB/CK Relative Index 1.75 Normal < Or =4 3 Troponin I < 0.02 NG/ML Normal < 0.10 4 Laboratory test finding 01/26/2021 [facility] Outpatient T esting (Registration) [address] [place], [place] [address] [phone] Bedside Glucose 126 mg/dL High 83-110 Venous Blood Gas 01/26/2021 [facility] Outpatient Testi ng (Registration) [address] [place] [address] [phone] Venous PH 7.350 units Normal 7.330-7.430 Venous Partial Pressure Co2 46.8 mmHg Normal 38.0-50.0 Venous Partial Pressure O2 51.0 mmHg High 30.0-50.0 Venous Total Co2 26.7 mEq/L Normal 24.0-28.0 Venous Hco3 25.3 mEq/L Normal 23.0-27.0 Venous Base Excess -0.7 Normal -2.0-2.0 Venous Standard Hco3 23.7 mEq/L Normal Venous O2 Saturation 86.5 % High 60.0-80.0 Ua W/ Reflex To Culture 01/26/2021 [facility] Outpatient T esting (Registration) [address] [place] [address] [phone] Appearance, Urine RFX CLEAR Normal Clear Color, Urine RFX STRAW Normal Yellow PH,Urine RFX 7.0 units Normal 5.0-9.0 Specific [place] Ur Auto RFX 1.003 Normal 1.002-1.035 Protein, [...] Normal 0-1 Laboratory test finding 01/26/2021 [facility] Outpatient T esting (Registration) [address] [place] [address] [phone] Platelet Estimate NORMAL Normal Normal Differential 01/26/2021 [facility] Outpatient Testi ng (Registration) [address] [place] [address] [phone] Neutrophils 85 % High 28-66 Bands 2 % Normal < 11 Lymphocytes 6 % Low 16-44 Monocytes 7 % High 0-5 Platelet Clumps SMALL AMT Normal CBC With Differential 01/26/2021 [facility] Outpatient Nirali ting (Registration) [address] [place] [address] [phone] White Blood Count 19.8 10 High 4.0-10.0 5 Red Blood Count 3.73 10 Low 4.00-5.40 [...] Normal 0-0 Laboratory test finding 01/26/2021 [facility] Outpatient T esting (Registration) [address] [place] [address] [phone] Osmolality Serum 296 MOSM/KG Normal 280-301 Thyroid Stimulating Hormone 1.400 uIU/ML Normal 0.358-3.740 Basic Metabolic Profile 01/26/2021 [facility] Outpatient T esting (Registration) [address] [place] [address] [phone] Glucose, Fasting 119 mg/dL High 70-100 Blood Urea Nitrogen 20 mg/dL High 7-18 Creatinine For GFR 1.45 mg/dL High 0.55-1.30 Glomerular Filtration Rate 37.1 Low >39 6 Sodium Level 143 mEq/L Normal 136-145 Potassium Serum 3.8 mEq/L Normal 3.5-5.1 Chloride Level 112 mEq/L High 98-107 Carbon Dioxide Level 25 mEq/L Normal 21-32 Anion Gap 6 mEq/L Low 8-16 Calcium Level 8.8 mg/dL Normal 8.8-10.2 Liver Profile 01/26/2021 [facility] Outpatient Testi ng (Registration) [address] [place], [place] [address] [phone] Ast/Sgot 13 U/L Normal 7-37 Alt/SGPT 26 U/L Normal 12-78 Alkaline Phosphatase 85 U/L Normal 45-117 Bilirubin,Total 0.6 mg/dL Normal 0.2-1.0 Bilirubin,Direct 0.1 mg/dL Normal 0.0-0.2 Total Protein 7.0 GM/DL Normal 6.4-8.2 Albumin 3.3 GM/DL Normal 3.2-5.2 Albumin/Globulin Ratio 0.9 Low 1.2-2.2 Laboratory test finding 01/26/2021 [facility] Outpatient T esting (Registration) [address] [place] [address] [phone] Ammonia 13 uMOL/L Normal <32 Lactic Acid Sepsis Protocol 1.6 mmol/L Normal 0.4-2.0 7 CBC With Differential 01/01/[address] [address] [phone] White Blood Count 8.4 10 Normal 4.0-10.0 [...] 36.0-66.0 Lymph % 31.0 % Normal 24.0-44.0 Mason % 9.4 % High 2.0-8.0 Eos % 4.3 % High 0.0-3.0 Baso % 1.1 % High 0.0-1.0 Immature Granulocyte % 0.4 % Normal 0-3.0 Nucleated Red Blood Cell % 0.0 % Normal 0-0 Neutrophils # 4.6 10 Normal 1.5-8.5 Lymph # 2.6 10 Normal 1.5-5.0 Mason # 0.8 10 Normal 0.0-0.8 Eos # 0.4 10 Normal 0.0-0.5 Baso # 0.1 10 Normal 0.0-0.2 Laboratory test finding 01/01/[address] [address] [phone] Ferritin 46 NG/ML Normal 8-252 Total Iron Binding Capacit 01/01/[address] [address] [phone] Iron (Fe) 70 g/dL Normal 50-170 Total Iron Binding Capacity 354 g/dL Normal 250-450 Percent Saturation 19.8 % Normal 13.2-45.0 Laboratory test finding 01/01/[address] [address] [phone] Vitamin B12 Level 459 pg/mL Normal 247-911 8 Total 25(Oh) Vitamin D 61.3 NG/ML Normal 30.0-100.0 FT4&TSH Panel 01/01/2021 [facility] [address] [place] [address] [phone] Thyroid Stimulating Hormone 2.280 uIU/ML Normal 0. 358-3.740 Free T4 0.75 ng/dL Low 0.76-1.46 Comprehensive Metabolic Profil 01/01/[address] [address] [phone] Glucose, Fasting 93 mg/dL Normal 70-100 Blood Urea Nitrogen 19 mg/dL High 7-18 Creatinine For GFR 1.14 mg/dL Normal 0.55-1.30 Glomerular Filtration Rate 48.9 Normal >39 9 Sodium Level 143 mEq/L Normal 136-145 Potassium [...] Normal 1.2-2.2 Laboratory test finding 11/20/2020 [facility] Outpatient T keerthiing (Registration) [address] [place], [place] [address] [phone] [place] Level 0.54 mEq/L Low 0.60-1.20 1 ASSAY INFORMATION: Real Time RT-PCR NOTE: The COVID-19 assay has been cleared by the U.S. Food and Drug Administration under the Emergency Use Authorization (EUA). [facility] and [facility] are designated as high complexity laboratories by the Clinical Laboratory Improvement Amendments of 1988(CLIA) and are qualified to perform this test. Not Detected 2 FULL REPORT IN LAB NOTES (eC W [...] SPCTRM BETA LACTAMASE IV NEGATIVE FOR ESBL 3 DIAGNOSIS CRITERIA MMB ng/ml Relative Index (RI) NON-AMI < or = 5 N/A MANCUSO ZONE > 5 < or = 4 AMI > 5 > 4 4 Troponin I Reference Interva l for Bio[employer] LOCI: 99th Percentile= 0.00-0.045 ng/ml Risk Stratification: <= 0.10 ng/ml Decreased Risk for Adverse Clinical Events. 0.10-1.50 ng/ml Increased Risk for Adv erse Clinical Events. Evaluation of additional criterion and/or repeat testing in 2-6 hours is suggested to rule out myocardial damage. >= 1.50 ng/ml Indicative of Myocardial Injury. 5 A Pathologist review of this differential can help in the evaluation of a differential diagnosis. Please order a Pathologist Review (PERISM) if deemed necessary. Results are subject to change if a Pathologist Review is performed. 6 Units are mL/min/1.73 m2 Chronic Kidney Disease Staging per NKF: Stage I & II GFR >=60 Normal to Mildly Decreased Stage III GFR 30-59 Moderately Decreased Stage IV GFR 15-29 Severely Decreased Stage V GFR <15 Very Little GFR Left ESRD GFR <15 on [employer] SALES REPRESENTATIVE 7 Y/N query for Sepsis Lactate Rule: Y 8 VITAMIN B12 NORMAL RANGE NORMAL 247 - 911 PG/ML INDETERMINATE 211 - 246 PG/ML DEFICIENT LESS THAN 211 PG/ML 9 Units are mL/min/1.73 m2 Chronic Kidney Disease Staging per NKF: Stage I & II GFR >=60 Normal to Mildly Decreased Stage III GFR 30-59 Moderately Decreased Stage IV GFR 15-29 Severely Decreased Stage V GFR <15 Very Little GFR Left ESRD GFR <15 on [employer] SALES REPRESENTATIVE Procedures Date Code Description Status 03/06/2021 24997 Office/Outpatient Established Lo w MDM 20-29 Min Completed 02/24/2021 28397 Office/Outpatient Established Lo w MDM 20-29 Min Completed 02/17/2021 15368 [facility] SRV Aft DC W/I 14D, C omm W/I 2 Dys Med Decs Completed 01/03/2021 01056 Office/Outpatient Established Mo d MDM 30-39 Min Completed 11/19/2020 08033 Office/Outpatient Established Mo d MDM 30-39 Min Completed Medical Devices Description No Information Available Encounters Type Date Location Provider Dx Diagnosis Office Visit 03/06/2021 1:40p [facility] CAIT Romero M79.605 Pain in left leg Office Visit 02/24/2021 1:00p [facility] CAIT Kearns S20.20xA Contusion of thorax, unspeci fied, initial encounter Y92.001 Dining room of [facility] Office Visit 02/17/2021 10:20a [facility] CAIT Kearns K52.89 Other specified noninfective gastroenteritis and colitis F31.9 Bipolar disorder, unspecifie d Office Visit 01/03/2021 10:00a [facility] CAIT Kearns F31.9 Bipolar disorder, unspecifie d E03.9 Hypothyroidism, unspecified E55.9 Vitamin D deficiency, unspec ified R25.1 Tremor, unspecified Office Visit 11/19/2020 8:00a [facility] CAIT Kearns R10.813 Right lower quadrant abdomin al tenderness W10.8xxA Fall (on) (from) other stair s and steps, initial encounter F31.9 Bipolar disorder, unspecifie d Assessments Date Code Description Provider 03/06/2021 M79.605 Pain in left leg CAIT Romero 02/24/2021 S20.20xA Contusion of thorax, unspecified , initial encounter CAIT Kearns 02/24/2021 Y92.001 Dining room of [facility] non-institutional (private) residence as the place of occurrence of the external cause CAIT Kearns 02/17/2021 K52.89 Other specified noninfective gas troenteritis and colitis CAIT Kearns 02/17/2021 F31.9 Bipolar disorder, unspecified St even CAIT Mahajan 01/03/2021 F31.9 Bipolar disorder, unspecified [facility] [place] 01/03/2021 E03.9 Hypothyroidism, unspecified CAIT Contreras 01/03/2021 E55.9 Vitamin D deficiency, unspecifie d CAIT Kearns 01/03/2021 R25.1 Tremor, unspecified CAIT Nichols 11/19/2020 R10.813 Right lower quadrant abdominal t enderness CAIT Kearns 11/19/2020 W10.8xxA Fall (on) (from) other stairs an d steps, initial encounter CAIT Kearns 11/19/2020 F31.9 Bipolar disorder, unspecified CAIT Marrero Plan of Treatment Future Appointment(s):* 04/29/2021 3:00 pm - CAIT Romero at [facility] Functional Status Description No Information Available Mental Status Description No Information Available Referrals Description No Information Available
--- OUTSIDE RECORDS SUMMARY | 2021-04-24 10:27 | CCD ---
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 Name Role Phone JUAN MANUEL-LAKEISHA, TEMITOPE DO [...] Unavailable Ravi, Kirk PA Unavailable Unavailable Ravi, Kikr PA Unavailable Unavailable Ravi, Kirk PA Unavailable [...] Unavailable Ravi, Kirk PA Unavailable Unavailable Ravi, Kikr PA Unavailable Unavailable Ravi, Kirk PA Unavailable [...] JUAN MANUEL-LAKEISHA, TEMITOPE DO Unavailable Unavailable JUAN MANUEL-LAEKISHA, TEMITOPE DO Unavailable Unavailable JUAN MANUEL-LAKEISHA, TEMITOPE [...] JUAN MANUEL-LAKEISHA, TEMITOPE DO Unavailable Unavailable TURRIN, BAUDILIO Unavailable Unavailable TURRIN, BAUDILIO Unavailable Unavailable TURRIN, BAUDILIO Unavailable Unavailable TURRIN, BAUDILIO Unavailable Unavailable O'madelin, A Shante PA Unavailable [...] L Ameena RPA Unavailable Unavailable Alarcon, L Ameean RPA Unavailable Unavailable Alarcon, L Ameena RPA [...] L Ameena RPA Unavailable Unavailable DESJARLAIS, RICKEY MANAGER PEST Unavailable Unavailable DESJARLAIS, RICKEY MANAGER PEST Unavailable Unavailable DESJARLAIS, RICKEY MANAGER PEST Unavailable Unavailable DESJARLAIS, RICKEY MANAGER PEST Unavailable Unavailable DESJARLAIS, RICKEY MANAGER PEST Unavailable Unavailable DESJARLAIS, RICKEY MANAGER PEST Unavailable Unavailable DESJARLAIS, RICKEY MANAGER PEST Unavailable Unavailable DESJARLAIS, RICKEY MANAGER PEST Unavailable Unavailable DESJARLAIS, RICKEY MANAGER PEST Unavailable Unavailable DESJARLAIS, RICKEY MANAGER PEST Unavailable Unavailable PONCHO, BREA DEVON PA-C Unavailable [...] is protected by Article 27-F of the [facility] Public Health law. If you continue you may have access to information: Regarding HIV / AIDS; Provided by facilities licensed or operated by the [facility] Office of Mental Health; or Provided by the [facility] Office for People With Developmental Disabilities. If such information is present, then the following [facility] mandated warning applies: This information has [...] law may result in a fine or long term sentence or both. A general authorization for the release of medical or other information is NOT sufficient authorization for further disc losure. Allergies and Adverse Reactions Type Description Substance Reaction Status Data Source(s ) Propensity to adverse reactions SULFA (sulfonamide) SULFA (sulfonamid e) RASH [facility] Family History Family Member Name Family Member Gender Family Member Status Date o f Status Description Data Source(s) Unknown Male Problem MEDENT ([facility]) Unknown Male Problem MEDENT ([facility] Unknown Unknown Problem MEDENT ([facility] Unknown Male Problem MEDENT ([facility]) () Encounters Encounter Providers Location Date Indications Data Source(s ) Emergency Attender: BAUDILIO HOLTConsultant: TEMITOPE GUNTERBER DO 03/31/2021 10:47:00 PM EST - 04/01/2021 01:30:00 AM [facility] Patient discharged. Outpatient Attender: RICKEY VARELA NP 03/26/2021 09: 34:[address] [facility] Outpatient Attender: Shante CHAVIRA [facility] 03/06/2021 01:40:00 PM EDT MEDENT ([facility]) Outpatient Attender: RICKEY VARELA NP 03/06/2021 10: 01:[address] [facility] Outpatient Attender: Ameena Monsalve/Yasmin/Mitchel/Andrea alexis 02/27/2021 10:00:00 AM EDT MEDENT ([facility] Outpatient Attender: Kirk CHAVIRA [facility] 02/24/2021 01:00:00 PM EDT MEDENT ([facility]) Outpatient Attender: RICKEY VARELA NP 02/19/2021 01: 40:[address] [facility] Outpatient Attender: Kirk CHAVIRA [facility] 02/17/2021 10:20:00 AM EDT MEDENT ([facility]) (TEL) .[facility] 01/23/2021 12:00:00 AM EDT eCW1 ([facility]) Outpatient .[facility] 01/23/2021 12:00:00 AM EDT eCW1 ([facility]) Outpatient Attender: RICKEY VARELA NP 01/16/2021 09: 51:[address] [facility] Outpatient [facility] 01/15/2021 12:00:00 AM EDT eCW1 ([facility]) Outpatient Attender: Kirk CHAVIRA [facility] 01/03/2021 10:00:00 AM EDT MEDENT ([facility]) Outpatient Attender: RICKEY VARELA NP 12/19/2020 11: 52:[address] [facility] Outpatient Attender: RICKEY VARELA NP 12/05/2020 03: 20:[address] [facility] Outpatient Attender: Kirk CHAVIRA [facility] 11/19/2020 08:00:00 AM EDT MEDENT ([facility]) Outpatient Attender: SHANTE lopez 11/15/2020 04:05:00 PM EDT MEDENT ([facility]) Outpatient Attender: RICKEY VARELA NP 11/12/2020 10: 56:[address] [facility] Outpatient Attender: RICKEY VARELA NP 10/02/2020 10: 50:[address] [facility] Office Visit Attender: Kirk CHAVIRA [facility] 09/30/2020 02:20:00 PM EDT MEDENT ([facility]) Outpatient Attender: RICKEY VARELA NP 09/05/2020 09: 49:[address] [facility] Outpatient Attender: RICKEY VARELA NP 08/06/2020 10: 46:[address] [facility] Outpatient Attender: RICKEY VARELA NP 07/30/2020 09: 45:00 AM [facility] Outpatient [facility] 07/23/2020 12:00:00 AM EST eCW1 ([facility]) Outpatient Attender: RICKEY VARELA NP 07/16/2020 10: 27:00 AM [facility] Outpatient Attender: Kirk CHAVIRA [facility] 07/15/2020 09:00:00 AM EST MEDENT ([facility]) Outpatient Attender: Kirk CHAVIRA [facility] 07/03/2020 08:20:00 AM EST MEDENT ([facility]) Outpatient Attender: RICKEY VARELA NP 06/28/2020 10: 23:00 AM [facility] [address] [place] [address] 06/28/2020 12:00:00 AM EST eCW1 ([facility]) Outpatient Attender: BARBER MATTHEWS MD Main office - [facility] 06/18/2020 01:30:00 PM EST MEDENT ([facility] ) (TEL) .[facility] 06/11/2020 12:00:00 AM EST eCW1 ([facility]) Outpatient Attender: DEVON ISAAC PA-C 06/10/2020 10:34:00 AM [facility] Outpatient Attender: RICKEY VARELA NP 05/31/2020 08: 35:00 AM [facility] Outpatient Attender: Kirk CHAVIRA [facility] 05/14/2020 07:40:00 AM EST MEDENT ([facility]) Outpatient Attender: RICKEY VARELA NP 05/10/2020 08: 31:00 AM [facility] Outpatient Attender: Kirk CHAVIRA [facility] 05/07/2020 02:20:00 PM EST MEDENT ([facility]) Outpatient Attender: RICKEY VARELA NP 04/12/2020 11: 11:00 AM [facility] Outpatient Attender: ALEX NICHOLSON [facility] 03/24 10:00:00 AM EST MEDENT ([facility] Outpatient Attender: TEMITOPE DOLAN DO [facility] 04/02/2020 07:20:00 AM EST MED[facility] ([facility]) Outpatient Attender: RICKEY DESJARLAIS MANAGER PEST 03/22/2020 10: 34:[address] [facility] Outpatient Attender: RICKEY DESJARLAIS MANAGER PEST 02/16/2020 10: 40:[address] [facility] Outpatient Attender: RICKEY DESJARLAIS MANAGER PEST 02/02/2020 10: 40:[address] [facility] Outpatient Attender: RICKEY DESJARLAIS MANAGER PEST 01/26/2020 10: 06:[address] [facility] Outpatient Attender: RICKEY DESJARLAIS MANAGER PEST 01/16/2020 05: 00:[address] [facility] Outpatient Attender: RICKEY DESJARLAIS MANAGER PEST 01/04/2020 09: 01:[address] [facility] Outpatient Attender: RICKEY DESJARLAIS MANAGER PEST 12/20/2019 12: 03:[address] [facility] Outpatient Attender: DEVON ISAAC PA-C 12/19/2019 11:47:[address] [facility] Outpatient Attender: RICKEY DESJARLAIS MANAGER PEST 12/07/2019 10: 47:[address] [facility] Outpatient Attender: RICKEY DESJARLAIS MANAGER PEST 11/29/2019 10: 40:[address] [facility] Outpatient Attender: RICKEY DESJARLAIS MANAGER PEST 11/14/2019 11: 34:[address] [facility] Outpatient Attender: RICKEY DESJARLAIS MANAGER PEST 11/07/2019 10: 40:[address] [facility] Outpatient Attender: RICKEY DESJARLAIS MANAGER PEST 10/25/2019 10: 25:[address] [facility] Outpatient Attender: RICKEY DESJARLAIS MANAGER PEST 09/26/2019 04: 20:[address] [facility] Outpatient Attender: RICKEY DESJARLAIS MANAGER PEST 09/19/2019 04: 58:[address] [facility] Immunizations Vaccine Date Status Description Data Source(s) COVID-19 VACCINE Moderna 07/26/2020 12:00:00 AM EST completed [facility] Vaccine Series Complete: YESThis Data wa s Submitted to [facility] Via [facility]. COVID-19 VACCINE, MRNA-1273, LNP-S (MODERNA)/PF 07/26/2020 1 2:00:00 AM EST completed [facility] COVID-19 VACCINE Moderna 06/28/2020 12:00:00 AM EST completed [facility] Vaccine Series Complete: NOThis Data was Submitted to [facility] Via [facility]. COVID-19 VACCINE, MRNA-1273, LNP-S (MODERNA)/PF 06/28/2020 1 2:00:00 AM EST completed [facility] VARICELLA-ZOSTER VIRUS GLYCOPROTEIN E,REC/AS01B ADJUVA NT/PF 05/05/2020 12:00:00 AM EST completed [facility] Medications Medication Brand Name Start Date Product Form Dose Route Admi nistrative Instructions Pharmacy Instructions Status Indications Reaction Description Data Source(s) 50 mcg 04/14/2021 12:00:00 AM EST tablet 30 TAKE ONE TABLET BY MOUTH EVERY DAY TAKE ONE TABLET BY MOUTH EVERY DAY SOLD: 04/22/2021 [facility] SUPREP BOWEL PREP KIT 17.5-3.13-1.6 gram SODIUM, POTASSIUM,M AG SULFATES 04/10/2021 12:00:00 AM EST recon soln 354 TAKE PER DOCTOR'S BOWEL PREP INSTRUCTIONS TAKE PER DOCTOR'S BOWEL PREP INSTRUCTIONS SOLD: 04/22/2021 [facility] 500 mg 03/31/2021 12:00:00 AM EST tablet 21 TAKE ONE TABLET BY MOUTH THREE TIMES A DAY UNTIL GONE TAKE ONE TABLET BY MOUTH THREE TIMES A DAY UNTIL GONE SOLD: 03/31/2021 [facility] Cephalexin 500 MG Oral Tablet Cephalexin 03/30/2021 12:00:00 AM EDT ORAL active MEDENT ([facility]) pantoprazole 40 MG Delayed Release Oral [...] BY MOUTH TWICE A DAY SOLD: 02/09/2021 [facility] 1 gram 02/09/2021 12:00:00 AM EDT tablet 120 TAKE 1 TABLET BY MOUTH BEFORE MEALS AND AT BEDTIME TAKE 1 TABLET BY MOUTH BEFORE MEALS AND AT BEDTIME JOSE RAMON [facility] 1 billion cell- 250 mg 02/07/2021 [...] 1.0 {tablet} active Adderall 20 MG eCW1 ([facility]) Amphetamine aspartate 2.5 MG / Amphetami ne Sulfate 2.5 MG / Dextroamphetamine saccharate 2.5 MG / Dextroamphetamine Sulfate 2.5 MG Oral Tablet [Adderall] Adderall 10 MG Adderall 10 MG 10/24/2020 12:00:00 AM EDT 1.0 {tablet} active Adderall 10 MG eCW1 ([facility]) 0.005 % 09/11/2020 12:00:00 AM EDT ointment 15 APPLY TO AFFECTED AREAS TWO TIMES A DAY FOR 2 WEEKS, STOP FOR 1 WEEK, MAY RESUME NEEDED APPLY TO AFFECTED AREAS TWO TIMES A DAY FOR 2 WEEKS, STOP FOR 1 WEEK, MAY RESUME NEEDED SOLD: 09/14/2020 [facility] 1 mg 07/29/2020 12:00:00 AM EST [...] completed MEDENT ([facility]) Medication administered onsite Amphetamine aspartate 5 MG / Amphetamine Sulfate 5 MG / Dextroamphetamine saccharate 5 MG / Dextroamphetamine Sulfate 5 MG Oral Tablet [Adderall] Adderall 20 MG Adderall 20 MG 07/23/2020 12:00:00 AM EST 1.0 {tablet} active Adderall 20 MG eCW1 ([facility]) Walker Wheels/Fixed With 5 Adjustment Holes/3" 07/18/2020 12:00:00 AM EST active MEDENT ([facility]) Calcium Carbonate 298 MG / Magnesium Chl oride 596 MG Delayed Release Oral Tablet [Slow-Mag Reformulated Jun 2011] Slow-Mag 07/03/2020 12:00:00 AM EST ORAL completed MEDENT ([facility]) Covid-19 vaccine, Unspecified 06/28/2020 12:00:00 AM EST completed MEDENT ([facility]) Medication administered onsite Ergocalciferol 64015 UNT Oral Capsule Ergocalciferol 05/14/2020 12:00:00 AM EST active MEDENT ( [facility]) Shingrix Shingrix 02/26/2020 12:00:00 AM EDT SUBCUTANEOUS completed MEDENT ([facility]) 5 mg/gram (0.5 %) 01/09/2020 12:00:00 AM [...] to perez Policy Perez Plan Information MEDICARE [id number] SP [id number] MEDICARE [id number] SP [id number] A MEDICARE A [id number] Self [id number] [place] [id number] S [id number] MEDICARE A [id number] Self [id number] MEDICARE [id number] SP [id number] M10 MEDICARE [id number] SP [id number] A Medicare Natl Gov't Servi Medicare Primary [id number] Self [id number] [place] [employer] [id number] S [id number] Medicare Natl Gov't Servi Medicare Primary [id number] Self [id number] MEDICARE [id number] SP [id number] A Medicare Natl Gov't Servi Medicare Primary [id number] Self [id number] [facility] [id number] SP [id number] [facility] U [id number] Self [id number] [facility] [id number] SP [id number] [facility] U [id number] Self [id number] R [facility] [id number] SP [id number] UMR U [id number] Self [id number] R [facility] [id number] SP [id number] UMR U [id number] Self [id number] Umr Commercial [id number] Self [id number] [place] [id number] Self [id number] [facility] [id number] Self [id number] Medicare Medicare Primary [id number] Self [id number] [place] Primary [id number] Self [id number] Medicare Medicare Primary [id number] Self [id number] Medicare Medicare Primary [id number] Self [id number] Medicare [place] Primary [id number] Self [id number] ANS-Medicare Part B [id number] ANSI-Commercial [id number] ANSI-Medicare Part B [id number] ANSI-Commercial [id number] [place] MED[employer]ARE DIVISION [id number] S [id number] [place]ICARE [place] [id number] S [id number] [facility] [id number] S [id number] ANSI-Medicare Part B [id number] ANSI-Commercial [id number] ANSI-Commercial [id number] ANSI-Medicare Part B [id number] ANSI-Medicare Part B [id number] ANSI-Commercial [id number] ANSI-Medicare Part B [id number] ANSI-Commercial [id number] Medicare Medicare Primary [id number] Self [id number] ANSI-Commercial [id number] ANSI-Medicare Part B [id number] Medicare Medicare Primary [id number]. [id number] Self [id number] ANSI-Commercial [id number] ANSI-Medicare Part B [id number] r/[facility] Medigap Part B [id number] Self [id number] MEDICARE C [id number] S [id number] A MEDICARE [id number] SP [id number] A [facility] [id number] SP [id number] [facility] PPO O [id number] S [id number] [facility] Medigap Part B [id number] Self [id number] [facility] Medigap Part B [id number] Self [id number] Medicare [place] Medicare Primary [id number] Self [id number] [facility] Medigap Part B [id number] 79.0 Self [id number] [facility] [id number] SP [id number] [facility] Commercial [id number] Self Medicare [place] Medicare Primary [id number] Self [facility] [id number] 18 [id number] 02 [facility] [id number] 2 [facility] [id number] 18 [id number] MEDICARE PART A-CLINIC [id number] 18 [id number] A MEDICARE [id number] SP [id number] UMR [facility] [id number] SP [id number] UMR -O/P [id number] 18 [id number] MEDICARE PART A -O/P [id number] 18 [id number] UMR [id number] S [id number] [place]IC[place] [id number] S [id number] [place] MED[place]ARE DIVISION [id number] S [id number] UMR [id number] S [id number] [place] MED[place]ARE DIV[place] [id number] S [id number] MEDICARE [place] [id number] S [id number] UMR [id number] S [id number] [place]STATE MEDICARE DIVISION UNAVAILABLE S UNAVAILABLE [place] MED[place]ARE DIVISION [id number] S [id number] [place] MEDICARE DIVISION [id number] S [id number] MEDICARE C [id number] S [id number] UMR O [id number] S [id number] [place] MED[place]ARE DIVISION [id number] S [id number] [place]ICARE [place] [id number] S [id number] UMR [id number] S [id number] Medicare Medicare Primary [id number] Self [id number] Problems, Conditions, and Diagnoses Code Display Name Description Problem Type Effective Dates Data Source(s) Y9259 Other trade areas as the place of occurr ence of the external cause Other trade areas as the place of occurrence of the external cause Diagnosis 03/31/2021 10:47:00 PM [facility] V81680N Fall on same level from slip ping, tripping and stumbling with subsequent striking against other object, initial encounter Fall on same level from slipping, tripping and stumbling with subsequent striking against other object, initial encounter Diagnosis 03/31/2021 10:47:00 PM [facility] I10 Essential (primary) hypertension Essential (primary) h ypertension Diagnosis 03/31/2021 10:47:00 PM [facility] [id number] Unspecified open wound of le ft index finger without damage to nail, initial encounter Unspecified open wound of left index fin mirtha without damage to nail, initial encounter Diagnosis 03/31/2021 10:47:00 PM [facility] V0910ZN Unspecified injury of left wrist, hand a nd finger(s), initial encounter Unspecified injury of left wrist, hand and finger(s), initial encounter Diagnosis 03/31/2021 10:47:00 PM [facility] G47.9 Sleep disorder, unspecified SLEEP DISORDER, UNSPECIFIE D Diagnosis 01/16/2021 09:51:[address] [facility] F31.9 Bipolar disorder, unspecified BIPOLAR DISORDER, UNSPEC IFIED Diagnosis 01/16/2021 09:51:[address] [facility] F43.23 Adjustment disorder with mixed anxiety a nd depressed mood ADJUSTMENT DISORDER WITH MIXED ANXIETY AND DEPRESS Diagnosis 12/19/2020 11:52:[address] [facility] R25.1 Tremor, unspecified TREMOR, UNSPECIFIED Diagnosis 0 07/16/2020 10:27:00 AM [facility] G25.2 Other specified forms of tremor OTHER SPECIFIED FORMS OF TREMOR Diagnosis 05/31/2020 08:35:00 AM [facility] E55.9 Vitamin D deficiency Vitamin D deficiency, unspecified Problem 01/23/2021 12:00:00 AM EDT eCW1 ([facility]) F43.23 [id number] Adjustment disorder with mixed a nxiety and depressed mood Problem 11/12/2020 12:00:00 AM EDT eCW1 ([facility]) G25.2 [id number] Coarse tremors Problem 07/01/2020 12:00:00 A M EST eCW1 ([facility]) Surgeries/Procedures Procedure Description Date Indications Data Source(s) OFFICE OUTPATIENT VISIT 15 MINUTES 03/06/2021 12:00:00 AM EDT MEDENT ([facility]) OFFICE OUTPATIENT NEW 45 MINUTES 02/27/2021 12:00:00 A M EDT MEDENT ([facility] ) OFFICE OUTPATIENT VISIT 15 MINUTES 02/24/2021 12:00:00 AM EDT MEDENT ([facility]) Trans Care SRV Aft DC W/I 14D, Comm W/I 2 Dys Med Decs 02/17/2021 12:00:00 AM EDT MEDENT ([facility]) OFFICE OUTPATIENT VISIT 25 MINUTES 01/03/2021 12:00:00 AM EDT MEDENT ([facility]) OFFICE OUTPATIENT VISIT 25 MINUTES 11/19/2020 12:00:00 AM EDT MEDENT ([facility]) OFFICE OUTPATIENT VISIT 15 MINUTES 11/15/2020 12:00:00 AM EDT MEDENT ([facility]) MRI BRAIN BRAIN STEM W/O CONTRAST MATERIAL 07/20/2020 12:00:00 AM EST MEDENT ([facility], ) MRI BRAIN BRAIN STEM W/O CONTRAST MATERIAL 07/20/2020 12:00:00 AM EST MEDENT ([facility], ) MRI SPINAL CANAL LUMBAR W/O CONTRAST MATERIAL 07/20/19 21 12:00:00 AM EST MEDENT ([facility], ) MRI SPINAL CANAL LUMBAR W/O CONTRAST MATERIAL 07/20/19 21 12:00:00 AM EST MEDENT ([facility], ) OFFICE OUTPATIENT VISIT 15 MINUTES 07/15/2020 12:00:00 AM EST MEDENT ([facility]) NON-INVASIVE PHYSIOLOGIC STUDY EXTREMITY 3 LEVLS 07/05 12:00:00 AM EST MEDENT ([facility], ) NON-INVASIVE PHYSIOLOGIC STUDY EXTREMITY 3 LEVLS 07/05 12:00:00 AM EST MEDENT ([facility], ) TSTG ANS FUNCJ CARDIOVAGAL INNERVAJ PARASYMP 12:00:00 AM EST MEDENT ([facility], ) TESTING AUTONOMIC NERVOUS SYSTEM FUNCTION 07/05/2020 1 2:00:00 AM EST MEDENT ([facility], ) ELECTROENCEPHALOGRAM W/REC AWAKE&ASLEEP 07/04/2020 12: 00:00 AM EST MEDENT ([facility], ) ELECTROENCEPHALOGRAM W/REC AWAKE&ASLEEP 07/04/2020 12: 00:00 AM EST MEDENT ([facility], ) OFFICE OUTPATIENT VISIT 25 MINUTES 07/03/2020 12:00:00 AM EST MEDENT ([facility]) Needle electromyography, each extremity, with related paraspinal areas, when performed, done with nerve conduction, amplitude and latency/velocity study; complete, five or more muscles studied, innervated by three or more nerves or four or more spinal levels (list separately in addition to the code for primary procedure). 06/24/2020 12:00:00 AM EST MEDEN T ([facility] Neurology, ) Needle electromyography, each extremity, with related paraspinal areas, when performed, done with nerve conduction, amplitude and latency/velocity study; complete, five or more muscles studied, innervated by three or more nerves or four or more spinal levels (list separately in addition to the code for primary procedure). 06/24/2020 12:00:00 AM EST [facility] T ([facility], ) Nerve Conduction 11-12 Studies 06/24/2020 12:00:00 AM EST [facility] ([facility], ) PARING/CUTTING BENIGN HYPERKERATOTIC LESION 2-4 2020 12:00:00 AM EST [facility] ([facility] DEBRIDEMENT NAIL ANY METHOD 6/> 06/19/2020 12:00:00 AM EST [facility] ([facility] Results ID Date Data Source [id number] 04/19/2021 11:02:00 AM EST [facility] Name Value Range Interpretation Code Description Data Mary rce(s) Supporting Document(s) SARS-CoV-2 (COVID-19) RNA [Presence] in Respiratory specimen by DAWIT with probe detection Not Detected [facility] This lab was ordered by [facility] and reported by [employer] ID Date Data Source [id number] 04/19/2021 11:02:00 AM EST [facility] ([facility]) Name Value Range Interpretation Code Description Data Mary rce(s) Supporting Document(s) Coronavirus 2019 Nasopharygeal Laboratory test result [facility] ([facility]) ASSAY INFORMATION: Real Time RT-PCR NOTE: The COVID-19 assay has been cleared by the U.S. Food and Drug Administration under the Emergency Use Authorization (EUA). [employer] and [employer] are designated as high complexity laboratories by the Clinical Laboratory Improvement Amendments of 1988(CLIA) and are qualified to perform this test. Not Detected ID Date Data Source [id number] 04/02/2021 01:42:00 PM EST [facility] Name Value Range Interpretation Code Description Data Mary rce(s) Supporting Document(s) SARS coronavirus 2 RNA [Presence] in Res piratory specimen by DAWIT with probe detection NEGATIVE [facility] This lab was ordered by [facility] a nd reported by [facility]. ID Date Data Source [id number] 04/02/2021 11:57:00 AM EST [facility] ([facility]) Name Value Range Interpretation Code Description Data Mary rce(s) Supporting Document(s) Appearance, Urine Laboratory test result Normal (applies to non-numeric results) [facility] ([facility]) Color, Urine Laboratory test result Normal (applies to non -numeric results) [facility] ([facility]) Specific [place] Urine Auto 1.004 1.002-1.035 Norm al (applies to non-numeric results) [facility] ([facility]) PH,Urine 7.0 units 5.0-9.0 Normal (applies to non-numeric resul ts) [facility] ([facility]) Protein, Urine Auto Laboratory test result Samantha l (applies to non-numeric results) [facility] ([facility]) Glucose, Urine (Ua) Auto Laboratory test result Normal (applies to non-numeric results) [facility] ([facility]) Urobilinogen, Urine Auto 0.2 mg/dL 0.0-2.0 Normal (applies to non-numeric results) [facility] ([facility]) Ketone, Urine Auto Laboratory test result Normal (applies to non-numeric results) [facility] ([facility]) Bilirubin, Urine Auto Laboratory test result Nor mal (applies to non-numeric results) [facility] ([facility]) Nitrite, Urine Auto Laboratory test result Samantha l (applies to non-numeric results) [facility] ([facility]) Blood, Urine Blood Laboratory test result Normal (applies to non-numeric results) [facility] ([facility]) Leukocyte Esterase, Urine Auto Laboratory test result Normal (applies to non- numeric results) [facility] ([facility]) WBC, Urine Auto 1 /HPF 0-3 Normal (applies to non-numeric results) [facility] ([facility]) RBC, Urine Auto 0 /HPF 0-3 Normal (applies to non-numeric results) [facility] ([facility]) Bacteria, Urine Auto Laboratory test result Above high nor mal [facility] ([facility]) Squamous Epithelial Cell Ur AU 0 /HPF 0-6 N ormal (applies to non-numeric results) [facility] ([facility]) Hyaline Cast, Urine Auto 0 /LPF 0-1 Normal (applies to non -numeric results) [facility] ([facility]) ID Date Data Source [id number] 03/31/2021 10:47:00 PM EST [facility] 1 Medication Reconciliation Report [facility] Emergency Department [address] [place] [address] Phone #: ext- [phone] 03/31/2021 22:47 [id number] Sex[facility] : 1940 Age: 80yWeight: 70.5 kgHeight/Length: 61 in.BMI: 29.4ALLERGIES: Doxycycline, Sulfa AntibioticsThe patient's Home Medications are listed below:CONTINUE TAKING THE FOLLOWING MEDICATIONS: amLODIPine Besylate Oral, daily Keflex Oral, unknown dosage Latuda Oral (40 mg) 1 tablet, daily Levothyroxine Sodium Oral (25 mcg) 1 tablet, daily [place] Oral 300mg, daily Protonix Oral (40 mg) 40mg, daily Virbrig 40mg, daily Vit D 50,000 units, once a weekThe source(s) of the original Home Medication information:patientThe following Medications were given to the patient in the Emergency Department:None.The following Medications were prescribed to the patient:None. Name Value Range Interpretation Code Description Data Mary rce(s) Supporting Document(s) ID Date Data Source [id number] 03/31/2021 10:47:00 PM [place] [address] Medication Administration Record [facility] Emergency Department [address] [place] [address] Phone #: ext- [phone] 03/31/2021 22:47 Patient: MURALI SULLIVAN Sex: F : 1940 Age: 80yWeight: 70.5 kgHeight/Length: 61 inBMI: 29.4ALLERGIES: Doxycycline, Sulfa AntibioticsDate/Time Medication Administered Medication Ordered Name Value Range Interpretation Code Description Data [facility](s) Supporting Document(s) ID Date Data Source [id number] 03/31/2021 10:47:00 PM [facility] 1 General Instructions [facility] Emergency Department [address] [place] [address] Phone #: ext- [phone] 03/31/2021 22:47 Patient: MURALI SULLIVAN Sex: F : 1940 Age: 80yNormal exam upon presentation, while in the ED and at discharge.Single superficial skin avulsion of the left index finger.No left fingernail injury or foreign body present.Fall on the same level by tripping.INSTRUCTIONSWarnings: GENERAL WARNINGS: Return or contact your physician immediately if your conditionworsens or changes unexpectedly, if not improving as expected, or if other problems arise.SPECIFICALLY, return if you develop weakness of the foot, arm or leg, numbness, tingling, pain orincontinence of feces (loss of bowel control) or urine (loss of bladder control). HEADACHE, VOMITING,LETHARGY, FEVER, ETC.Your Current Medications: Your current home medications have been reviewed.CONTINUE TAKING THE FOLLOWING MEDICATIONS:amLODIPine Besylate Oral : daily.Keflex Oral : unknown dosage.Latuda Oral : Tablet 40 mg, 1 tablet daily.Levothyroxine Sodium Oral : Tablet 25 mcg, 1 tablet daily.Conneaut Oral : 300mg daily.Protonix Oral : Packet 40 mg, 40mg daily.Virbrig* : 40mg daily.Vit D* : 50,000 units once a week.Follow-up:Return to the emergency department as needed. Follow up with your healthcare provider in two dayseven if well. Call for an appointment. Reason for referral: evaluation and treatment. Summary of careprovided to patient via paper.Understanding of the discharge instructions verbalized by patient. Expected course of injury, dischargeinstructions, activity level, diet, follow-up appointment and risks and benefits of treatment reviewed withpatient and understanding verbalized. Agrees to plan of care. ADDITIONAL INFORMATIONMechanical FallYou have had a fall today. It appears that the cause is what is called mechanical. That means that 2 General Instructions [facility] Emergency Department [address] [place] [address] Phone #: ext- [phone] 03/31/2021 22:47 Patient: MURALI SULLIVAN Sex: F : 1940 Age: 80yyou slipped, tripped, or lost your balance. If your fall had been because of fainting or a seizure, youmight need other tests.It is normal to feel sore and tight in your muscles and back the next day, and not just the muscles youinjured at first. Remember, all the parts of your body are connected, so while initially one area hurts,the next day another may hurt. Also, when you injure yourself, it causes inflammation, which thencauses the muscles to tighten up and hurt more. After the initial worsening, it should graduallyimprove over the next few days. Do report more severe pain.Even without a definite head injury, you can still get a concussion from your head suddenly jerkingforward, backward, or sideways when falling. Concussions and even bleeding can still happen,especially if you have had a recent injury or take blood thinner medicine. It is not unusual to have amild headache and feel tired and even nauseous or dizzy.Home care Rest today and go back to your normal activities when you are feeling back to normal. If you were injured during the fall, follow the advice from your healthcare provider regarding care of your injury. At first, do not try to stretch out the sore spots. If there is a strain, stretching may make it worse. Massage may help relax the muscles without stretching them. You can use an ice pack or cold compress on and off to the sore spots 10 to 20 minutes at a time, as often as you feel comfortab le. This may help reduce the inflammation, swelling and pain. If you have any scrapes or abrasions, they usually heal within 10 days. It is important to keep the abrasions clean while they initially start to heal. However, an infection may happen even with proper care, so watch for early signs of infection (such as warmth, redness, or swelling).Medicines Talk to your healthcare provider before taking new medicines, especially if you have other medical problems or are taking other medicines. If you need anything for pain, you can take acetaminophen or ibuprofen, unless you were given a different pain medicine to use. Talk with your healthcare provider before using these medicines if you have chronic liver or kidney disease, or ever had a stomach ulcer or gastrointestinal bleeding, or are taking blood thinner medicines. Be careful if you are given prescription pain medicines, narcotics, or medicine for muscle spasm. They can make you sleepy and dizzy, and can affect your coordination, reflexes, and judgment. Do not drive or do work where you can injure yourself when taking them. 3 General Instructions [facility] Emergency Department [address] [place] [address] Phone #: ext- [phone] 03/31/2021 22:47 Patient: MURALI SULLIVAN Sex: F : 1940 Age: 80yFall prevention Fix, remove, or replace anything that caused your fall. Make your home safe by keeping walkways clear of objects yo u may trip over. Use nonslip pads under rugs. Don't use small area rugs or throw rugs. Don't walk in poorly lit areas. Don't stand on chairs or wobbly ladders. Use caution when reaching overhead or looking upward. This position can cause a loss of balance. Be sure your shoes fit properly, have nonslip bottoms and are in good condition. Be cautious when going up and down curbs, and walking on uneven sidewalks. If your balance is poor, consider using a cane or walker. Stay as active as you can. Balance, flexibility, strength, and endurance all come from exercise. They all play a role in preventing falls. If you have pets, know where they are before you stand up or walk so you don't trip over them. Limit alcohol intake. Alcohol can cause balance problems and increase the risk of falls. Use night lights. Have your eyes tested to be sure you are seeing well, even if you already wear glasses.Follow-upFollow up with your healthcare provider, or as advised. If X-rays or CT scans were done, you will benotified if there is a change in the reading, especially if it affects treatment.Call [phone] if any of these happen: Trouble breathing Confused or difficulty arousing Fainting or loss of consciousness Rapid or very slow heart rate 4 General Instructions [facility] Emergency Department [address] [place] [address] Phone #: [phone] mmm- [phone] 03/31/2021 22:47 Patient: MURALI SULLIVAN Sex: F : 1940 Age: 80y Seizure Difficulty with speech or vision, weakness of an arm or leg Difficulty walking or talking, loss of balance, numbness or weakness in one side of your body, or facial droopWhen to seek medical adviceCall your healthcare provider right away if any of these happen: Repeated mechanical falls, or unexplained falls Dizziness Severe headache Blood in vomit, stools (black or red color) [id number] [employer] [place] [address]. All rights reserved. This information is not intended as asubstitute for professional medical care. Always follow your healthcare professional's instructions.Skin Tear (Skin Avulsion)A skin tear (skin avulsion) is a tearing of the top layer of skin. This commonly happens after a fall orother injury. This is especially true if you have thinner skin, are an older adult, or have taken steroidsfor long periods of time.Home careThese guidelines will help you care for your wound at home: Keep the wound clean and dry for the first 24 to 48 hours, or as your healthcare provider advises. If there is a dressing or bandage, change it when it gets wet or dirty. Otherwise, leave it on for the first 24 hours, then change it once a day or as often as the healthcare provider says. If stitches or terrie were used, check the wound every day. After taking off the dressing, wash the area gently with soap and water. Clean as close to the stitches as you can. Don't wash or rub the stitches directly. After 3 days you can keep the bandages off the wound, unless told otherwise, or there is continued drainage. Allow the wound to be open to the air. Keep a thin layer of antibiotic ointment on the cut. This will keep the wound clean, make it easier to remove the stitches, and reduce scarring. 5 General Instructions [facility] Emergency Department [address] [place] [address] Phone #: ext- [phone] 03/31/2021 22:47 Patient: MURALI SULLIVAN Sex: F : 1940 Age: 80y If your wound is oozing, you can put a nonstick dressing over it. Then, reapply the bandage or dressing as you were told. You can shower as usual after the first 24 hours, but don't soak the area in water (no baths or swimming) until the stitches or terrie are taken out. If surgical tape was used, keep the area clean and dry. If it becomes wet, blot it dry with a clean towel. Be very careful when removing tape or other dressings, or you may cause more skin tears. Soaking the dressing in the shower for a few minutes will often loosen it and make it easier to remove. If skin glue was used, don't put any creams, lotions, or antibiotic ointments on it. These can dissolve the glue. Usually the glue will flake off in about 5 to 10 days by itself. Try to resist picking it off before that so the wound doesn't open up. When it gets wet, pat it dry.Here is some information about medicine: You may use [id number] medicine such as acetaminophen, naproxen, or ibuprofen to control pain, unless another pain medicine was given. If you have chronic liver or kidney disease or ever had a stomach ulcer or gastrointestinal bleeding, talk with your healthcare provider before using these medicines. If you were given antibiotics, take them until they are all used up. It is important to finish the antibiotics even if the wound looks better. This will ensure that the infection has cleared.Follow-up careFollow up with your healthcare provider, or as advised. Watch for any signs of infection, such as increasing redness, swelling, or pus coming out of the wound. If this happens, don't wait for your scheduled visit. Instead, see your healthcare provider right away. Stitches or terrie are usually taken out within 5 to 14 days. This varies depending on what part of your body they are on, and the type of wound. Your provider will tell you how long stitches or terrie should be left in. If surgical tape was used, it's usually left on for 7 to 10 days. You can remove surgical tape after that unless you were told otherwise. If you try to remove it, and it's too hard, soaking can help. Surgical tape strips will eventually fall off on their own. If the edges of the cut pull apart, stop removing the tape or strips and follow up with your provider As mentioned above, skin glue will flake off by itself in 5 to 10 days, so you don't need to pull it off. 6 General Instructions [facility] Emergency Department [address] [place] [address] Phone #: ext- [phone] 03/31/2021 22:47 [id number] Sex: F : 1940 Age: 80yIf any X-rays were done, you will be notified of any changes that may affect your care.When to seek medical adviceCall your healthcare provider right away if any of these occur: Increasing pain in the wound Redness, swelling, or pus coming from the wound Fever of 100.4F (38C) or higher, or as directed by your healthcare provider Sutures or terrie come apart or fall out before your next appointment and the wound edges look as if they will re-open Surgical tape closures fall off before 7 days, and the wound edges look as if they will re-open Bleeding not controlled by direct pressure [id number] [employer] [place] [address], [place] [address]. All rights reserved. This information is not intended as asubstitute for professional medical care. Always follow your healthcare professional's instructions. You have been given the following additional information: Mechanical Fall Skin Avulsion(Electronically signed by Baudilio Holt M.D. 04/01/2021 02:15) Name Value Range Interpretation Code Description Data Mary rce(s) Supporting Document(s) ID Date Data Source [id number] 03/31/2021 10:47:00 PM EST [facility] 1 Clinical Report - Nurses [facility] Emergency Department [address] [place] [address] Phone #: ext- [phone] 03/31/2021 22:47 Patient: MURALI SULLIVAN Sex: F : 1940 Age: 80yTRIAGEArrived by private vehicle. Historian: patient. Accompanied by friend.Triage time: 23:57 03/31/2021. Acuity: LEVEL 3.Chief Complaint: FALL. Tripped while standing. Landed on headLocation of injuries: right frontal area. Occurred at a store. Occurred 14:00 03/31/2021. No loss ofconsciousness. No alteration in mental status, dizziness, neck pain or extremity pain.Pre-hospital notification of patient arrival was not received.Treatment POT SANDER:None.SEPSIS SCREEN: SIRS SCREEN NEGATIVE. SEPSIS SCREEN NEGATIVE. No suspected or confirmedsigns of infection present. --00:15 04/01/21 Kirk Corbett RN23:57 03/31/21. BP: 141/62 (regular adult cuff) taken on the right arm, via an automated monitor, whilelying. MAP: 88. HR: 93. RR: 18. O2 saturation: 100%. Temp: 97.2 F (oral). Pain level now: 0/10. --00:15106/01/20 Kirk Corbett RN.Weight: 70.5 kg. --23:57 03/31/21 Kirk Corbett RN.Height/Length: 61 inches Per Patient. BMI: 29.4. --00:15 04/01/21 Kirk Corbett RN.MedicationsLithium Oral 300mg, daily. --00:04 04/01/21 Kirk Corbett RN Latuda Oral (Tablet 40 mg) 1 tablet, daily. --00:06 04/01/21 Kirk Corbett RN Virbrig 40mg, daily. --00:06 04/01/21 Kirk Corbett RN Levothyroxine Sodium Oral (Tablet 25 mcg) 1 tablet, daily. --00:04/01/21 Kirk Corbett RN amLODIPine Besylate Oral, daily. --00:04/01/21 Kirk Corbett RN Protonix Oral (Packet 40 mg) 40mg, daily. --00:08 04/01/21 Kirk Corbett RN Keflex Oral (unknown dosage). --00:08 04/01/21 Kirk Corbett RN Vit D 50,000 units, once a week. --00:13 04/01/21 Kirk Corbett RN.AllergiesSulfa Antibiotics. --00:04/01/21 Kirk Corbett RNDoxycycline. --00:04/01/21 Kirk Corbett RN.PROBLEMS:GI Bleeding. 2 Clinical Report - Nurses [facility] Emergency Department [address] [place] [address] Phone #: ext- [phone] 03/31/2021 22:47 [id number] Sex[facility] F : 1940 Age: 80y Thyroid Disease. Bipolar Disorder. UTI - Urinary Tract Infection. --00:10 04/01/21 Kirk Corbett RN. Medication/allergy information source: the patient. --00:04/01/21 Kirk Corbett RN. History PAST MEDICAL HX: Tetanus status: up-to-date. Immunizations: up-to-date. SURGERY HX: No history of previous surgery. SOCIAL HX: Never smoker. No alcohol use or drug use. She has not traveled outside the [place] Infectious disease exposure: No infectious disease exposure. Patient is not a known carrier of tuberculosis, hepatitis, HIV, MRSA or VRE. Patient is not a known carrier of CRE. SELF HARM ASSESSMENT: Self harm assessment was performed. The patient answered "no" to the question(s) "Have you recently felt down, depressed, or hopeless?", "Do you have thoughts of harming or killing yourself?", "Do you have a plan for harming or killing yourself?", "Have you recently had thoughts about harming or killing others?", "Do you have any dangerous items in your possession?", "Have you noticed less interest or pleasure in doing things?", "Are you here because you tried to hurt yourself?" and "Have you ever tried to hurt yourself before today?". ABUSE ASSESSMENT: No report of abuse. FALL RISK ASSESSMENT: Fall risk assessment completed. No risk factors identified. --00:04/01/21 Kirk Corbett RN. Assessment The patient states does not feel the same. --00:04/01/21 Kirk Corbett RN.PHYSICAL ASSESSMENTTo room via wheelchair.GENERAL / NEURO / PSYCH: Alert. Oriented X 4. Appears in no acute distress. [place] ComaScale: 15- eyes open- spontaneous (4); best verbal response- oriented (5); best motor response- obeyscommands (6).HEENT: Pupils equal, round and reactive to light.RESPIRATORY: Respirations not labored. Chest nontender. Breath sounds within normal limits.CVS: Pulses within normal limits. Capillary refill less than 2 seconds.GI / : Abdomen soft and nontender.EXTREMITIES: Extremities exhibit normal ROM. Neuro-vascular status intact to the extremity.SKIN: Skin intact. Skin is warm and dry. --00:04/01/21 Kirk Corbett RN.NURSING PROGRESS NOTESPatient gowned. Reassurance given. Call light placed in reach of patient. Bed placed in lowest position.Brakes of bed on. Patient ready for evaluation- ED physician notified. --00:16 04/01/21 Kirk Corbett, 3 Clinical Report - Nurses [facility] Emergency Department [address] [place] [address] Phone #: ext- [phone] 03/31/2021 22:47 [id number] Sex: [facility] : 1940 Age: 80y RN.DISPOSITION / DISCHARGE Wm Coma Scale: 15- eyes open- spontaneous (4); best verbal response- oriented (5); best motor response- obeys commands (6). Condition at departure: improved. No learning barriers present. Discharge instructions provided and reviewed with the patient. Reviewed referral to family practice for followup. Patient verbalized understanding. Written instructions provided in Persian. The patient was discharged home and accompanied by manager forensic. She left in a wheelchair and via private vehicle. 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 --00:52 04/01/21 Kirk Corbett RN 00:51 04/01/21. BP: 141/61 (regular adult cuff) taken on the right arm, via an automated monitor, while lying. MAP: 87. HR: 88 (regular, normal rate and strong). RR: 18 (regular, unlabored and normal). O2 saturation: 100% on room air. Temp: 97.6 F (oral). Pain level now: 0/10. --00:52 04/01/21 Kirk Corbett RN Departure time: 01:30 04/01/2021. --03:19 04/01/21 Kirk Corbett RN.Locked/Released at 04/01/2021 03:19 by Kirk Corbett RN Name Value Range Interpretation Code Description Data Mary rce(s) Supporting Document(s) ID Date Data Source [id number] 03/31/2021 10:47:00 PM [facility] 1 Clinical Report - Physicians/Mid Levels [facility] Emergency Department [address] [place] [address] Phone #: ext- [phone] 03/31/2021 22:47 Patient: MURALI SULLIVAN Sex: F : 1940 Age: 80y Time Seen: 00:20 04/01/2021; initial patient contact. Arrived- By private vehicle. Historian- patient. Disposition decision: 00:34 04/01/2021.HISTORY OF PRESENT ILLNESS Chief Complaint: FALL: Location of injuries- head and left hand. The injury occurred today 14:[address] a [address] and at a mall. ( tripped outside a mall and fell on concrete). Fell: The patient denies pain. No blow to the head, neck pain, loss of consciousness or seizure. Not dazed. (according to friends, she had STS of left sided scalp, they brought her to [facility] ER, waited 8 hrs and then was brought here; pt has no complaints in ER and no obvious swelling).REVIEW OF SYSTEMSNo numbness, dizziness, loss of vision, hearing loss or chest pain. No difficulty breathing, weakness,headache, nausea or abdominal pain. No laceration, fever, vomiting, urinary problems or depression.The patient has no pain on weight bearing. All other systems reviewed and are negative.PAST HISTORYSee nurses notes. Tetanus immunization status is up-to-date. Problems: Hypertension. GI Bleeding. Thyroid Disease. Bipolar Disorder. UTI - Urinary Tract Infection. Additional Surgeries: no known surgeries. Medications: Vit D 50,000 units, once a week. Keflex Oral (unknown dosage). Protonix Oral (Packet 40 mg) 40mg, daily. amLODIPine Besylate Oral, daily. Levothyroxine Sodium Oral (Tablet 25 mcg) 1 tablet, daily. Virbrig 40mg, daily. Latuda Oral (Tablet 40 mg) 1 tablet, daily. [place] Oral 300mg, daily. 2 Clinical Report - Physicians/Mid Levels [facility] Emergency Department [address] [place] [address] Phone #: ext- [phone] 03/31/2021 22:47 Patient: MURALI SULLIVAN Sex: F : 1940 Age: 80y Allergies: Doxycycline. Sulfa Antibiotics.SOCIAL HISTORYNever smoker. No alcohol use or drug use. No recent travel.ADDITIONAL NOTESThe nursing notes have been reviewed with agreement regarding the chief complaint, HPI, ROS, PMH andpatient medications and allergies.PHYSICAL EXAMVital Signs: 03/31/2021 23:57 BP: lying 141/62. MAP: 88. HR: 93. RR: 18. O2 saturation: 100%. Temp:97.2 F. Pain level now: 0/10. Have been reviewed. Oxygen saturation normal.Appearance: Alert. Oriented X3. No acute distress.Head: Head non-tender. No swelling of head.Eyes: Pupils equal, round and reactive to light. EOM intact.ENT: No dental injury. Pharynx normal.Neck: Painless ROM. Non- tender. No vertebral tenderness.CVS: Heart sounds normal. Pulses normal.Respiratory: Painless inspiration. Breath sounds normal. Chest nontender.Abdomen: No visible injury. Soft and nontender. Bowel sounds normal. No organomegaly. No mass.Femoral pulses equal.Back: No tenderness. ROM normal.Skin: Skin intact. Skin warm and dry. Normal skin color. Normal skin turgor. (small skin tear left 2-3web space, no pain).Extremities: Normal inspection. Pelvis stable. Extremities atraumatic.Neuro: Oriented X 3. No motor deficit. No sensory deficit.PROGRESS AND PROCEDURESCourse of Care: 00:32 04/01/21. pt has nml exam in ER and has no complaints; pt denies any neuro Sx,[place], double vision, N/V, and has no physical findings on exam, no STS of scalp; pt wants to go home andagrees w no imaging studies; d/c instructions given, pt understands and agrees. Patient counseled in person regarding the patient's stable condition, diagnosis and need for follow-up. Patient agrees with plan of care. Disposition: Condition: good and stable. Discharge decision based on the following: patient's condition is stable; patient's condition is improved; patient is ambulatory; patient is active; patient drinking fluids; patient's pain is controlled; patient's exam is improved; improving condition on repeat evaluation; social support is good; transportation is available; follow- up is available; clinical impression is consistent with outpatient treatment.CLINICAL IMPRESSION 3 Clinical Report - Physicians/Mid Levels [facility] Emergency Department [address] [place] [address] Phone #: ext- [phone] 03/31/2021 22:47 Patient: MURALI SULLIVAN Sex: F : 1940 Age: 80y Normal exam upon presentation, while in the ED and at discharge. Single superficial skin avulsion of the left index finger.No left fingernail injury or foreign body present. Fall on the same level by tripping.INSTRUCTIONS Warnings: GENERAL WARNINGS: Return or contact your physician immediately if your condition worsens or changes unexpectedly, if not improving as expected, or if other problems arise. SPECIFICALLY, return if you develop weakness of the foot, arm or leg, numbness, tingling, pain or incontinence of feces (loss of bowel control) or urine (loss of bladder control). HEADACHE, VOMITING, LETHARGY, FEVER, ETC. Your Current Medications: Your current home medications have been reviewed. CONTINUE TAKING THE FOLLOWING MEDICATIONS: amLODIPine Besylate Oral : daily. Keflex Oral : unknown dosage. Latuda Oral : Tablet 40 mg, 1 tablet daily. Levothyroxine Sodium Oral : Tablet 25 mcg, 1 tablet daily. [place]aut Oral : 300mg daily. Protonix Oral : Packet 40 mg, 40mg daily. Virbrig* : 40mg daily. Vit D* : 50,000 units once a week. Follow-up: Return to the emergency department as needed. Follow up with your healthcare provider in two days even if well. Call for an appointment. Reason for referral: evaluation and treatment. Summary of care provided to patient via paper. Understanding of the discharge instructions verbalized by patient. Expected course of injury, discharge instructions, activity level, diet, follow- up appointment and risks and benefits of treatment reviewed with patient and understanding verbalized. Agrees to plan of care.(Electronically signed by Baudilio Holt M.D. 04/01/2021 02:15) Name Value Range Interpretation Code Description Data [facility] rce(s) Supporting Document(s) ID Date Data Source [id number] 03/27/2021 04:00:00 PM EDT [facility] ([facility]) Name Value Range Interpretation Code Description Data [facility] rce(s) Supporting Document(s) Appearance, Urine Laboratory test result Normal (applies to non-numeric results) [facility] ([facility]) Specific [place] Urine Auto 1.004 1.002-1.035 Norm al (applies to non-numeric results) [facility] ([facility]) Color, Urine Laboratory test result Normal (applies to non -numeric results) [facility] ([facility]) PH,Urine 6.0 units 5.0-9.0 Normal (applies to non-numeric resul ts) [facility] ([facility]) Glucose, Urine (Ua) Auto Laboratory test result Normal (applies to non-numeric results) [facility] ([facility]) Protein, Urine Auto Laboratory test result Samantha l (applies to non-numeric results) [facility] ([facility]) Urobilinogen, Urine Auto 0.2 mg/dL 0.0-2.0 Normal (applies to non-numeric results) [facility] ([facility]) Bilirubin, Urine Auto Laboratory test result Nor mal (applies to non-numeric results) [facility] ([facility]) Ketone, Urine Auto Laboratory test result Normal (applies to non-numeric results) [facility] ([facility]) Blood, Urine Blood Laboratory test result Normal (applies to non-numeric results) [facility] ([facility]) Nitrite, Urine Auto Laboratory test result Samantha l (applies to non-numeric results) [facility] ([facility]) Leukocyte Esterase, Urine Auto Laboratory test result Normal (applies to non- numeric results) [facility] ([facility]) RBC, Urine Auto 0 /HPF 0-3 Normal (applies to non-numeric results) [facility] ([facility]) WBC, Urine Auto 1 /HPF 0-3 Normal (applies to non-numeric results) [facility] ([facility]) Squamous Epithelial Cell Ur AU 0 /HPF 0-6 N ormal (applies to non-numeric results) [facility] ([facility]) Bacteria, Urine Auto Laboratory test result Norm al (applies to non-numeric results) [facility] ([facility]) Hyaline Cast, Urine Auto 0 /LPF 0-1 Normal (applies to non -numeric results) [facility] ([facility]) ID Date Data Source [id number] 03/27/2021 04:00:00 PM EDT [facility] ([facility]) Name Value Range Interpretation Code Description Data Mary rce(s) Supporting Document(s) Bacteria identified in Urine by Culture Laboratory test result Normal (applies to non-numeric results) [facility] ([facility]) <content>FULL REPORT IN LAB NOTES (eCW a [...]
<content>MEROPENEM IV 500 mg q8h <=0.25 S</content>
<content>TIGECYCLINE IV 50mg q12h <=0.5 S</content>
<content>CEFEPIME IV 1 gm q12h <=1 S</content>
<content>CEFEPIME IV 2 gm q12h <=1 S</content>
<content>EXTD BRD SPCTRM BETA LACTAMASE IV NEGATIVE FOR ESBL</content>
<content></content> ID Date Data Source [id number] 02/01/2021 10:44:00 AM EDT [facility] Name Value Range Interpretation Code Description Data Mary rce(s) Supporting Document(s) SARS-CoV-2 (COVID 19) NEGATIVE - SARS-CoV-2 (COVID19) [facility] This lab was ordered by [facility] a nd reported by [facility]. ID Date Data Source [id number] 01/26/2021 10:24:00 PM EDT [facility] Name Value Range Interpretation Code Description Data Mary rce(s) Supporting Document(s) SARS coronavirus 2 RNA [Presence] in Res piratory specimen by DAWIT with probe detection NEGATIVE [facility] This lab was ordered by [facility] a nd reported by [facility]. ID Date Data Source [id number] 01/26/2021 06:09:00 PM EDT [facility] ([facility]) Name Value Range Interpretation Code Description Data Mary rce(s) Supporting Document(s) Glucose [Mass/volume] in Capillary blood by Glucometer 126 mg/dL 83-110 Above high normal [facility] ([facility]) ID Date Data Source [id number] 01/26/2021 05:53:00 PM EDT [facility] ([facility]) Name Value Range Interpretation Code Description Data Mary rce(s) Supporting Document(s) Ammonia [Mass/volume] in Blood 13 uMOL/L N ormal (applies to non-numeric results) [facility] ([facility]) Lactate [Mass/volume] in Serum or Plasma 1.6 mmol/L 0.4-2.0 Normal (applies to non-numeric results) [facility] ([facility]) Y/N query for Sepsis Lactate Rule: Y ID Date Data Source [id number] 01/26/2021 05:53:00 PM EDT [facility] ([facility]) Name Value Range Interpretation Code Description Data Mary rce(s) Supporting Document(s) Ast/Sgot 13 U/L 7-37 Normal (applies to non-numeric resul ts) [facility] ([facility]) Alkaline Phosphatase 85 U/L 45-117 Normal (applies to non-num caren results) [facility] ([facility]) Alt/SGPT 26 U/L 12-78 Normal (applies to non-numeric resul ts) [facility] ([facility]) Bilirubin,Total 0.6 mg/dL 0.2-1.0 Normal (applies to non-numeric results) [facility] ([facility]) Bilirubin,Direct 0.1 mg/dL 0.0-0.2 Normal (applies to non-numeric results) [facility] ([facility]) Albumin/Globulin Ratio 0.9 1.2-2.2 Below low normal [facility] ([facility]) Total Protein 7.0 GM/DL 6.4-8.2 Normal (applies to non-numeric re sults) [facility] ([facility]) Albumin 3.3 GM/DL 3.2-5.2 Normal (applies to non-numeric resul ts) [facility] ([facility]) ID Date Data Source [id number] 01/26/2021 05:53:00 PM EDT [facility] ([facility]) Name Value Range Interpretation Code Description Data Mary rce(s) Supporting Document(s) Glucose, Fasting 119 mg/dL 70-100 Above high normal [facility] ([facility]) Blood Urea Nitrogen 20 mg/dL 7-18 Above high normal [facility] ([facility]) Creatinine For GFR 1.45 mg/dL 0.55-1.30 Above high normal [facility] Sodium Level 143 meq/L 136-145 Normal (applies to non-numeric res ults) [facility] ([facility]) Glomerular Filtration Rate 37.1 Below low normal [facility] ([facility]) <content>Units are mL/min/1.73 m2</content>
<content></content>
<content>Chronic Kidney Disease Staging per NKF:</content>
<content></content>
<content>Stage I & II GFR >=60 Normal to Mildly Decreased</content>
<content>Stage III GFR 30- 59 Moderately Decreased</content>
<content>Stage IV GFR 15-29 Severely Decreased</content>
<content>Stage V GFR <15 Very Little GFR Left</content>
<content>ESRD GFR <15 on PASTRY COOK APPRENTICE</content>
<content></content> Chloride Level 112 meq/L 98-107 Above high normal [facility] ([facility]) Potassium Serum 3.8 meq/L 3.5-5.1 Normal (applies to non-numeric results) [facility] ([facility]) Carbon Dioxide Level 25 meq/L 21-32 Normal (applies to non-num caren results) [facility] ([facility]) Anion Gap 6 meq/L 8-16 Below low normal [facility] ( [facility]) Calcium Level 8.8 mg/dL 8.8-10.2 Normal (applies to non-numeric re sults) [facility] ([facility]) ID Date Data Source [id number] 01/26/2021 05:53:00 PM EDT [facility] ([facility]) Name Value Range Interpretation Code Description Data Mary rce(s) Supporting Document(s) Osmolality of Serum or Plasma 296 MOSM/KG 280-301 No rmal (applies to non-numeric results) [facility] ([facility]) Thyrotropin [Units/volume] in Serum or Plasma 1.400 uIU/ML 0. 358-3.740 Normal (applies to non-numeric results) [facility] ID Date Data Source [id number] 01/26/2021 05:53:00 PM EDT [facility] ([facility]) Name Value Range Interpretation Code Description Data Mary rce(s) Supporting Document(s) Hemoglobin 11.7 g/dL 12.0-15.5 Below low normal [facility] ( [facility]) Red Blood Count 3.73 10 4.00-5.40 Below low normal [facility] ([facility]) White Blood Count 19.8 10 4.0-10.0 Above high normal [facility]) A Pathologist review of this differentia l can help in the evaluation of a differential diagnosis. Please order a Pathologist Review (PERISM) if deemed necessary. Results are subject to change if a Pathologist Review is performed. Mean Corpuscular Volume 98.1 fl 80.0-96.0 Above high normal [facility] ([facility]) Hematocrit 36.6 % 36.0-47.0 Normal (applies to non-numeric resul ts) [facility] ([facility]) Mean Corpuscular HGB Conc 32.0 g/dL 32.0-36.5 Normal (applies to non-numeric results) [facility] ([facility]) Mean Corpuscular Hemoglobin 31.4 pg 27.0-33.0 Norm al (applies to non-numeric results) [facility] ([facility]) Red Cell Distribution Width 13.4 % 11.5-14.5 Norm al (applies to non-numeric results) [facility] ([facility]) Platelet Count, Automated 315 10 150-450 Normal (applies to non-numeric results) [facility] ([facility]) Nucleated Red Blood Cell % 0.0 % 0-0 Normal (applies to n on-numeric results) [facility] ([facility]) ID Date Data Source [id number] 01/26/2021 05:53:00 PM EDT [facility] ([facility]) Name Value Range Interpretation Code Description Data Mary rce(s) Supporting Document(s) Neutrophils 85 % 28-66 Above high normal [facility] ([facility]) Bands 2 % Normal (applies to non-numeric resul ts) [facility] ([facility]) Lymphocytes 6 % 16-44 Below low normal [facility] ([facility]) Platelet Clumps Laboratory test result Normal (a pplies to non-numeric results) [facility] ([facility]) Monocytes 7 % 0-5 Above high normal [facility] ([facility]) ID Date Data Source [id number] 01/26/2021 05:53:00 PM EDT [facility] ([facility]) Name Value Range Interpretation Code Description Data Mary rce(s) Supporting Document(s) Platelets [#/volume] in Blood by Estimate Laboratory test result Normal (applies to non-numeric results) [facility] ([facility]) ID Date Data Source [id number] 01/26/2021 05:53:00 PM EDT [facility] ([facility]) Name Value Range Interpretation Code Description Data Mary rce(s) Supporting Document(s) Appearance, Urine RFX Laboratory test result Nor mal (applies to non-numeric results) [facility] ([facility]) PH,Urine RFX 7.0 units 5.0-9.0 Normal (applies to non-numeric res ults) [facility] ([facility]) Color, Urine RFX Laboratory test result Normal ( applies to non-numeric results) [facility] ([facility]) Protein, Urine Auto RFX Laboratory test result Above high normal [facility] ([facility]) Specific [place] Ur Auto RFX 1.003 1.002-1.035 Nor mal (applies to non-numeric results) [facility] ([facility]) Ketone, Urine Auto RFX Laboratory test result No rmal (applies to non-numeric results) [facility] ([facility]) Glucose, Urine (Ua) Auto RFX Laboratory test result Normal (applies to non- numeric results) [facility] ([facility]) Bilirubin, Urine Auto RFX Laboratory test result Normal (applies to non- numeric results) [facility] ([facility]) Urobilinogen, Urine Auto RFX 0.2 mg/dL 0.0-2.0 Nor mal (applies to non-numeric results) [facility] ([facility]) Blood, Urine Blood RFX Laboratory test result Above high n ormal [facility] ([facility]) Leukocyte Esterase Ur Auto RFX Laboratory test result Abov e high normal [facility] ([facility]) Nitrite, Urine Auto RFX Laboratory test result N ormal (applies to non-numeric results) [facility] ([facility]) WBC, Urine Auto RFX 4 /HPF 0-3 Above high normal [facility] ([facility]) RBC, Urine Auto RFX 1 /HPF 0-3 Normal (applies to non-nume paula results) [facility] ([facility]) Bacteria, Urine Auto RFX Laboratory test result Above high normal [facility] ([facility]) Squam Epithelial Cell Ur Aurfx 0 /HPF 0-6 N ormal (applies to non-numeric results) [facility] ([facility]) Hyaline Cast, Urine Auto RFX 0 /LPF 0-1 Normal (appl ies to non-numeric results) [facility] ([facility]) ID Date Data Source [id number] 01/26/2021 05:53:00 PM EDT [facility] ([facility]) Name Value Range Interpretation Code Description Data Mary rce(s) Supporting Document(s) Venous PH 7.350 units 7.330-7.430 Normal (applies to non-numeric res ults) [facility] ([facility]) Venous Partial Pressure O2 51.0 mmHg 30.0-50.0 Above high normal [facility] ([facility]) Venous Partial Pressure Co2 46.8 mmHg 38.0-50.0 Norm al (applies to non-numeric results) [facility] ([facility]) Venous Hco3 25.3 meq/L 23.0-27.0 Normal (applies to non-numeric resu lts) [facility] ([facility]) Venous Total Co2 26.7 meq/L 24.0-28.0 Normal (applies to non-numeric results) [facility] ([facility]) Venous Standard Hco3 23.7 meq/L Normal (applies to non-num caren results) [facility] ([facility]) Venous Base Excess -0.7 Normal (applies to non-numer ic results) [facility] ([facility]) Venous O2 Saturation 86.5 % 60.0-80.0 Above high normal [facility] ([facility]) ID Date Data Source [id number] 01/26/2021 05:53:00 PM EDT [facility] ([facility]) Name Value Range Interpretation Code Description Data Mary rce(s) Supporting Document(s) CPK Creatine Phosphokinase 97 U/L 26-192 Samantha l (applies to non-numeric results) [facility] ([facility]) CK-MB Value Mass 1.7 ng/mL Normal (applies to non-numeric results) [facility] ([facility]) Troponin I Laboratory test result Normal (applies to non-n umeric results) [facility] ([facility]) <content>Troponin I Reference Interval f or Siemens [place] LOCI:</content>
<content></content>
<content>99th Percentile= 0.00-0.045 ng/ml</content>
<content></content>
<content>Risk Stratification:</content>
<content><= 0.10 ng/ml Decreased Risk for Adverse Clinical</content>
<content>Events.</content>
<content>0.10-1.50 ng/ml Increased Risk for Adverse Clinical</content>
<content>Events. Evaluation of additional</content>
<content>criterion and/or repeat testing in 2-6</content>
<content>hours is suggested to rule out myocardial</content>
<content>damage.</content>
<content>>= 1.50 ng/ml Indicative of Myocardial Injury.</content>
<content></content> MB/CK Relative Index 1.75 Normal (applies to non-num caren results) [facility] ([facility]) <content>DIAGNOSIS CRITERIA</content>
<content>MMB ng/ml Relative Index (RI)</content>
<content>NON-AMI < or = 5 N/A</content>
<content>MANCUSO ZONE > 5 < or = 4</content>
<content>AMI > 5 > 4</content>
<content></content> ID Date Data Source [id number] 01/23/2021 09:36:46 PM EDT [facility] Name Value Range Interpretation Code Description Data Mary rce(s) Supporting Document(s) LITHIUM 0.69 mmol/L (0.60-1.50) [facility] ID Date Data Source [id number] 01/23/2021 12:00:00 AM EDT eCW1 ([facility]) Name Value Range Interpretation Code Description Data Mary rce(s) Supporting Document(s) VENIPUNCTURE VENIPUNCTURE eCW1 ([facility]) ID Date Data Source CBC w/DIFF 01/23/2021 12:00:00 AM EDT eCW1 ([facility]) Name Value Range Interpretation Code Description Data Mary rce(s) Supporting Document(s) 3.86 4.20-6.30 RBC eCW1 ([facility]) 9.4 4.1-10.9 WBC eCW1 ([facility]) 12.0 12.0-18.0 HGB eCW1 ([facility]) 99.5 80.0-97.0 MCV eCW1 ([facility]) 38.4 36.0-51.0 HCT eCW1 ([facility]) 382 140-440 PLT eCW1 ([facility]) 31.3 31.0-36.0 MCHC eCW1 ([facility]) 31.1 26.0-32.0 MCH eCW1 ([facility]) 9.4 7.4-10.4 MPV eCW1 ([facility]) 49.2 36.4-46.3 RDW-SD eCW1 ([facility]) 13.2 11.5-15.5 RDW-CV eCW1 ([facility]) 0.90 0.20-0.90 MONO # eCW1 ([facility]) 2.52 0.60-4.10 LYMPH # eCW1 ([facility]) 0.32 0.00-0.50 EO # eCW1 ([facility]) 5.60 1.60-6.10 NEUT # eCW1 ([facility]) 0.07 0.00-0.10 BASO # eCW1 ([facility]) 26.8 10.0-58.5 LYMPH % eCW1 ([facility]) 59.4 34.0-71.1 NEUT % eCW1 ([facility]) 0.7 0.1-1.2 BASO % eCW1 ([facility]) 9.6 10.0-58.5 MONO % eCW1 ([facility]) 3.4 0.7-7.0 EO % eCW1 ([facility]) 0.10 0.00-0.43 IG% eCW1 ([facility]) 0.01 LOW IG# eCW1 ([facility]) ID Date Data Source [id number],INTACT 01/23/2021 12:00:00 AM EDT eCW1 ([facility]) Name Value Range Interpretation Code Description Data Mary rce(s) Supporting Document(s) 71.3 8.2-83.5 PTH,INTACT eCW1 ([facility] [place]) ID Date Data Source [id number] 01/23/2021 12:00:00 AM EDT eCW1 ([facility]) Name Value Range Interpretation Code Description Data Mary rce(s) Supporting Document(s) 3.7 3.4-5.0 ALBUMIN eCW1 ([facility]) 19 7-18 BUN eCW1 ([facility]) 9.1 8.5-10.1 CALCIUM eCW1 ([facility]) 50.92 >=60.00 GFR NON-AFR.AM eCW1 ([facility]) 61.61 >=60.00 GFR AFR.AM eCW1 ([facility]) 1.1 0.6-1.3 CREATININE eCW1 ([facility]) 106 100-108 CHLORIDE eCW1 ([facility]) 4.5 3.6-5.2 POTASSIUM eCW1 ([facility]) 140 135-145 SODIUM eCW1 ([facility]) 7.7 6.4-8.2 TOTAL PROTEIN eCW1 ([facility]) 0.30 0.20-1.00 T BILIRUBIN eCW1 ([facility] [place] 31.2 21.0-32.0 CO2 eCW1 ([facility]) 104.0 70.0-110.0 GLUCOSE eCW1 ([facility] 96 46-116 ALPI eCW1 ([facility] 16 15-37 AST eCW1 ([facility] 3 5-15 ANION GAP eCW1 ([facility]) 28 30-65 ALTI eCW1 ([facility]) ID Date Data Source [id number] 01/01/2021 11:14:00 AM EDT [facility] ([facility]) Name Value Range Interpretation Code Description Data Mary rce(s) Supporting Document(s) Glucose, Fasting 93 mg/dL 70-100 Normal (applies to non-numeric results) [facility] ([facility]) Blood Urea Nitrogen 19 mg/dL 7-18 Above high normal [facility] ([facility]) Creatinine For GFR 1.14 mg/dL 0.55-1.30 Normal (applies to non -numeric results) [facility] ([facility]) Glomerular Filtration Rate 48.9 Normal (applies to n on-numeric results) [facility] ([facility]) <content>Units are mL/min/1.73 m2</content>
<content></content>
<content>Chronic Kidney Disease Staging per NK[facility]:</content>
<content></content>
<content>Stage I & II GFR >=60 Normal to Mildly Decreased</content>
<content>Stage III GFR 30- 59 Moderately Decreased</content>
<content>Stage IV GFR 15-29 Severely Decreased</content>
<content>Stage V GFR <15 Very Little GFR Left</content>
<content>ESRD GFR <15 on PASTRY COOK APPRENTICE</content>
<content></content> Sodium Level 143 meq/L 136-145 Normal (applies to non-numeric res ults) [facility] ([facility]) Potassium Serum 4.8 meq/L 3.5-5.1 Normal (applies to non-numeric results) [facility] ([facility]) Chloride Level 110 meq/L 98-107 Above high normal [facility] ([facility]) Calcium Level 9.1 mg/dL 8.8-10.2 Normal (applies to non-numeric re sults) [facility] ([facility]) Anion Gap 1 meq/L 8-16 Below low normal [facility] ( [facility]) Carbon Dioxide Level 32 meq/L 21-32 Normal (applies to non-num caren results) [facility] ([facility]) Ast/Sgot 14 U/L 7-37 Normal (applies to non-numeric resul ts) [facility] ([facility]) Alt/SGPT 26 U/L 12-78 Normal (applies to non-numeric resul ts) [facility] ([facility]) Bilirubin,Total 0.3 mg/dL 0.2-1.0 Normal (applies to non-numeric results) [facility] ([facility]) Alkaline Phosphatase 74 U/L 45-117 Normal (applies to non-num caren results) [facility] ([facility]) Total Protein 6.7 GM/DL 6.4-8.2 Normal (applies to non-numeric re sults) [facility] ([facility]) Albumin/Globulin Ratio 1.2 1.2-2.2 Normal (applies to non-n umeric results) [facility] ([facility]) Albumin 3.6 GM/DL 3.2-5.2 Normal (applies to non-numeric resul ts) [facility] ([facility]) ID Date Data Source [id number] 01/01/2021 11:14:00 AM EDT [facility] ([facility]) Name Value Range Interpretation Code Description Data Mary rce(s) Supporting Document(s) Free T4 0.75 ng/dL 0.76-1.46 Below low normal [facility] ( [facility]) Thyroid Stimulating Hormone 2.280 uIU/ML 0.358-3.740 Norm al (applies to non- numeric results) [facility] ([facility]) ID Date Data Source [id number] 01/01/2021 11:14:00 AM EDT [facility]) Name Value Range Interpretation Code Description Data Mary rce(s) Supporting Document(s) Cobalamin (Vitamin B12) [Mass/volume] in Serum or Plasma 459 pg/ mL 247-911 Normal (applies to non-numeric results) [facility] ([facility]) VITAMIN B12 NORMAL RANGE NORMAL 247 - 911 PG/ML INDETERMINATE 211 - 246 PG/ML DEFICIENT LESS THAN 211 PG/ML Calcidiol [Mass/volume] in Serum or Plasma 61.3 ng/mL 30.0- 100.0 Normal (applies to non-numeric results) [facility]) ID Date Data Source [id number] 01/01/2021 11:14:00 AM EDT [facility]) Name Value Range Interpretation Code Description Data Mary rce(s) Supporting Document(s) Iron (Fe) 70 ug/dL 50-170 Normal (applies to non-numeric resul ts) [facility] ([facility]) Total Iron Binding Capacity 354 ug/dL 250-450 Norm al (applies to non-numeric results) [facility] ([facility]) Percent Saturation 19.8 % 13.2-45.0 Normal (applies to non-numer ic results) [facility]) ID Date Data Source [id number] 01/01/2021 11:14:00 AM EDT [facility] ([facility]) Name Value Range Interpretation Code Description Data Mary rce(s) Supporting Document(s) Ferritin [Mass/volume] in Serum or Plasma 46 ng/mL 8-252 Normal (applies to non- numeric results) [facility] ([facility]) ID Date Data Source [id number] 01/01/2021 11:14:00 AM EDT [facility] ([facility]) Name Value Range Interpretation Code Description Data Mary rce(s) Supporting Document(s) White Blood Count 8.4 10 4.0-10.0 Normal (applies to non-numeri c results) [facility] ([facility]) Red Blood Count 3.81 10 4.00-5.40 Below low normal [facility] ([facility]) Hematocrit 38.0 % 36.0-47.0 Normal (applies to non-numeric resul ts) [facility] ([facility]) Mean Corpuscular Volume 99.7 fl 80.0-96.0 Above high normal [facility] ([facility]) Hemoglobin 11.7 g/dL 12.0-15.5 Below low normal [facility] ( [facility]) Mean Corpuscular Hemoglobin 30.7 pg 27.0-33.0 Norm al (applies to non-numeric results) [facility] ([facility]) Mean Corpuscular HGB Conc 30.8 g/dL 32.0-36.5 Below low normal [facility] ([facility]) Red Cell Distribution Width 13.6 % 11.5-14.5 Norm al (applies to non-numeric results) [facility] ([facility]) Platelet Count, Automated 344 10 150-450 Normal (applies to non-numeric results) [facility] ([facility]) Neutrophils % 53.8 % 36.0-66.0 Normal (applies to non-numeric re sults) [facility] ([facility]) Lymph % 31.0 % 24.0-44.0 Normal (applies to non-numeric resul ts) [facility] ([facility]) [place] % 9.4 % 2.0-8.0 Above high normal [facility] ([facility]) Eos % 4.3 % 0.0-3.0 Above high normal [facility] ([facility]) Nucleated Red Blood Cell % 0.0 % 0-0 Normal (applies to n on-numeric results) [facility] ([facility]) Baso % 1.1 % 0.0-1.0 Above high normal [facility] ([facility]) Immature Granulocyte % 0.4 % 0-3.0 Normal (applies to non-n umeric results) [facility] ([facility]) Lymph # 2.6 10 1.5-5.0 Normal (applies to non-numeric resul ts) [facility] ([facility]) Neutrophils # 4.6 10 1.5-8.5 Normal (applies to non-numeric re sults) [facility] ([facility]) [place] # 0.8 10 0.0-0.8 Normal (applies to non-numeric resul ts) [facility] ([facility]) Baso # 0.1 10 0.0-0.2 Normal (applies to non-numeric resul ts) [facility] ([facility]) Eos # 0.4 10 0.0-0.5 Normal (applies to non-numeric resul ts) [facility] ([facility]) ID Date Data Source [id number] 11/20/2020 03:44:00 PM EDT [facility] ([facility]) Name Value Range Interpretation Code Description Data Mary rce(s) Supporting Document(s) [place] [Mass/volume] in Serum or Plasma 0.54 meq/L 0.60-1.20 Below low normal [facility] ([facility]) ID Date Data Source [id number] 09/30/2020 03:53:00 PM EDT [facility] ([facility]) Name Value Range Interpretation Code Description Data Mary rce(s) Supporting Document(s) Magnesium [Mass/volume] in Serum or Plasma 2.9 mg/dL 1.8-2.4 Above high normal [facility] ([facility]) [place] [Mass/volume] in Serum or Plasma 0.64 meq/L 0.60-1. 20 Normal (applies to non-numeric results) [facility] ([facility]) ID Date Data Source [id number] 06/28/2020 10:43:00 AM EST [facility] ([facility]) Name Value Range Interpretation Code Description Data Mary rce(s) Supporting Document(s) Cobalamin (Vitamin B12) [Mass/volume] in Serum or Plasma 575 pg/ mL 247-911 Normal (applies to non-numeric results) [facility] ([facility]) VITAMIN B12 NORMAL RANGE NORMAL 247 - 911 PG/ML INDETERMINATE 211 - 246 PG/ML DEFICIENT LESS THAN 211 PG/ML Calcidiol [Mass/volume] in Serum or Plasma 49.4 ng/mL 30.0- 100.0 Normal (applies to non-numeric results) [facility] ([facility]) Ferritin [Mass/volume] in Serum or Plasma 96 ng/mL 8-252 Normal (applies to non- numeric results) [facility] ([facility]) ID Date Data Source [id number] 06/28/2020 10:43:00 AM EST [facility] ([facility]) Name Value Range Interpretation Code Description Data Mary rce(s) Supporting Document(s) Iron (Fe) 101 ug/dL 50-170 Normal (applies to non-numeric resul ts) [facility] ([facility]) Total Iron Binding Capacity 332 ug/dL 250-450 Norm al (applies to non-numeric results) [facility] ([facility]) Percent Saturation 30.4 % 13.2-45.0 Normal (applies to non-numer ic results) [facility] ([facility]) ID Date Data Source [id number] 06/28/2020 10:43:00 AM EST [facility] ([facility]) Name Value Range Interpretation Code Description Data Mary rce(s) Supporting Document(s) Thyroid Stimulating Hormone 0.831 uIU/ML 0.358-3.740 Norm al (applies to non- numeric results) [facility] ([facility]) Free T4 0.93 ng/dL 0.76-1.46 Normal (applies to non-numeric resul ts) [facility] ([facility]) ID Date Data Source [id number] 06/28/2020 10:43:00 AM EST [facility] ([facility]) Name Value Range Interpretation Code Description Data Mary rce(s) Supporting Document(s) White Blood Count 8.5 10 4.0-10.0 Normal (applies to non-numeri c results) [facility] ([facility]) Hemoglobin 11.0 g/dL 12.0-15.5 Below low normal [facility] ( [facility]) Red Blood Count 3.62 10 4.00-5.40 Below low normal [facility] ([facility]) Mean Corpuscular Volume 100.3 fl 80.0-96.0 Above high normal [facility] ([facility]) Hematocrit 36.3 % 36.0-47.0 Normal (applies to non-numeric resul ts) [facility] ([facility]) Mean Corpuscular Hemoglobin 30.4 pg 27.0-33.0 Norm al (applies to non-numeric results) [facility] ([facility]) Mean Corpuscular HGB Conc 30.3 g/dL 32.0-36.5 Below low normal [facility] ([facility]) Red Cell Distribution Width 12.7 % 11.5-14.5 Norm al (applies to non-numeric results) [facility] ([facility]) Platelet Count, Automated 407 10 150-450 Normal (applies to non-numeric results) [facility] ([facility]) Lymph % 28.9 % 24.0-44.0 Normal (applies to non-numeric resul ts) [facility] ([facility]) Neutrophils % 56.4 % 36.0-66.0 Normal (applies to non-numeric re sults) [facility] ([facility]) [place] % 9.4 % 0.0-5.0 Above high normal [facility] ([facility]) Eos % 4.3 % 0.0-3.0 Above high normal [facility] ([facility]) Baso % 0.8 % 0.0-1.0 Normal (applies to non-numeric resul ts) [facility] ([facility]) Immature Granulocyte % 0.2 % 0-3.0 Normal (applies to non-n umeric results) [facility] ([facility]) Nucleated Red Blood Cell % 0.0 % 0-0 Normal (applies to n on-numeric results) [facility] ([facility]) Lymph # 2.5 10 1.5-5.0 Normal (applies to non-numeric resul ts) [facility] ([facility]) Neutrophils # 4.8 10 1.5-8.5 Normal (applies to non-numeric re sults) [facility] ([facility]) Eos # 0.4 10 0.0-0.5 Normal (applies to non-numeric resul ts) [facility] ([facility]) [place] # 0.8 10 0.0-0.8 Normal (applies to non-numeric resul ts) [facility] ([facility]) Baso # 0.1 10 0.0-0.2 Normal (applies to non-numeric resul ts) [facility] ([facility]) ID Date Data Source [id number] 06/28/2020 10:43:00 AM EST [facility] ([facility]) Name Value Range Interpretation Code Description Data Mary rce(s) Supporting Document(s) Glucose, Fasting 97 mg/dL 70-100 Normal (applies to non-numeric results) [facility] ([facility]) Blood Urea Nitrogen 19 mg/dL 7-18 Above high normal [facility] Creatinine For GFR 1.25 mg/dL 0.55-1.30 Normal (applies to non -numeric results) [facility] ([facility]) Glomerular Filtration Rate 44.1 Normal (applies to n on-numeric results) [facility] ([facility]) <content>Units are mL/min/1.73 m2</content>
<content></content>
<content>Chronic Kidney Disease Staging per [facility]:</content>
<content></content>
<content>Stage I & II GFR >=60 Normal to Mildly Decreased</content>
<content>Stage III GFR 30- 59 Moderately Decreased</content>
<content>Stage IV GFR 15-29 Severely Decreased</content>
<content>Stage V GFR <15 Very Little GFR Left</content>
<content>ESRD GFR <15 on PASTRY COOK APPRENTICE</content>
<content></content> Sodium Level 141 meq/L 136-145 Normal (applies to non-numeric res ults) [facility] ([facility]) Chloride Level 106 meq/L 98-107 Normal (applies to non-numeric r esults) [facility] ([facility]) Carbon Dioxide Level 30 meq/L 21-32 Normal (applies to non-num caren results) [facility] ([facility]) Potassium Serum 3.8 meq/L 3.5-5.1 Normal (applies to non-numeric results) [facility] ([facility]) Calcium Level 9.6 mg/dL 8.8-10.2 Normal (applies to non-numeric re sults) [facility] ([facility]) Anion Gap 5 meq/L 8-16 Below low normal [facility] ( [facility]) Alkaline Phosphatase 80 U/L 45-117 Normal (applies to non-num caren results) [facility] ([facility]) Alt/SGPT 29 U/L 12-78 Normal (applies to non-numeric resul ts) [facility] ([facility]) Ast/Sgot 14 U/L 7-37 Normal (applies to non-numeric resul ts) [facility] ([facility]) Bilirubin,Total 0.5 mg/dL 0.2-1.0 Normal (applies to non-numeric results) [facility] ([facility]) Total Protein 7.0 GM/DL 6.4-8.2 Normal (applies to non-numeric re sults) [facility] ([facility]) Albumin 3.7 GM/DL 3.2-5.2 Normal (applies to non-numeric resul ts) [facility] ([facility]) Albumin/Globulin Ratio 1.1 1.2-2.2 Below low normal [facility] ([facility]) ID Date Data Source [id number] 06/02/2020 12:00:00 AM EST [facility] Name Value Range Interpretation Code Description Data Mary rce(s) Supporting Document(s) SARS coronavirus 2 RNA [Presence] in Res piratory specimen by DAWIT with probe detection NEGATIVE [facility] This lab was ordered by Ham Montesinos and reported by [facility]. ID Date Data Source [id number] 06/02/2020 12:00:00 AM EST [facility] Name Value Range Interpretation Code Description Data Mary rce(s) Supporting Document(s) Carestart Rapid COVID Antigen Test Negative [facility] This lab was reported by [facility]. ID Date Data Source [id number] 05/08/2020 11:00:00 AM EST [facility] ([facility]) Name Value Range Interpretation Code Description Data Mary rce(s) Supporting Document(s) Bacteria identified in Urine by Culture Laboratory test result Normal (applies to non-numeric results) [facility] ([facility]) FULL REPORT IN LAB NOTES ([facility] and [facility] ). NO GROWTH ID Date Data Source [id number] 05/08/2020 11:00:00 AM EST [facility] ([facility]) Name Value Range Interpretation Code Description Data Mary rce(s) Supporting Document(s) Appearance, Urine Laboratory test result Normal (applies to non-numeric results) [facility] ([facility]) Color, Urine Laboratory test result Normal (applies to non -numeric results) [facility] ([facility]) PH,Urine 7.0 units 5.0-9.0 Normal (applies to non-numeric resul ts) [facility] ([facility]) Specific [place] Urine Auto 1.003 1.002-1.035 Norm al (applies to non-numeric results) [facility] ([facility]) Protein, Urine Auto Laboratory test result Samantha l (applies to non-numeric results) [facility] ([facility]) Glucose, Urine (Ua) Auto Laboratory test result Normal (applies to non-numeric results) [facility] ([facility]) Ketone, Urine Auto Laboratory test result Normal (applies to non-numeric results) [facility] ([facility]) Urobilinogen, Urine Auto 0.2 mg/dL 0.0-2.0 Normal (applies to non-numeric results) [facility] ([facility]) Nitrite, Urine Auto Laboratory test result Samantha l (applies to non-numeric results) [facility] ([facility]) Bilirubin, Urine Auto Laboratory test result Nor mal (applies to non-numeric results) [facility] ([facility]) Leukocyte Esterase, Urine Auto Laboratory test result Abov e high normal [facility] ([facility]) Blood, Urine Blood Laboratory test result Normal (applies to non-numeric results) [facility] ([facility]) RBC, Urine Auto 0 /HPF 0-3 Normal (applies to non-numeric results) [facility] ([facility]) WBC, Urine Auto 1 /HPF 0-3 Normal (applies to non-numeric results) [facility] ([facility]) Bacteria, Urine Auto Laboratory test result Norm al (applies to non-numeric results) [facility] ([facility]) Hyaline Cast, Urine Auto 0 /LPF 0-1 Normal (applies to non -numeric results) [facility] ([facility]) Squamous Epithelial Cell Ur AU 0 /HPF 0-6 N ormal (applies to non-numeric results) [facility] ([facility]) ID Date Data Source [id number] 05/07/2020 04:59:00 PM EST [facility] ([facility]) Name Value Range Interpretation Code Description Data Mary rce(s) Supporting Document(s) Thyroid Stimulating Hormone 1.040 uIU/ML 0.358-3.740 Norm al (applies to non- numeric results) [facility] ([facility]) Free T4 1.02 ng/dL 0.76-1.46 Normal (applies to non-numeric resul ts) [facility] ([facility]) ID Date Data Source [id number] 05/07/2020 04:59:00 PM EST [facility] ([facility]) Name Value Range Interpretation Code Description Data Mary rce(s) Supporting Document(s) Folate Laboratory test result Normal (applies to non-n umeric results) [facility] ([facility]) FOLATE NORMAL RANGE NORMAL GREATER THAN 5.4 NG/ML INDETERMINATE 3.4-5.4 NG/ML DEFICIENT LESS THAN 3.4 NG/ML Vitamin B12 Level 671 pg/mL Normal (applies to non-numeri c results) [facility] ([facility]) VITAMIN B12 NORMAL RANGE NORMAL 247 - 911 PG/ML INDETERMINATE 211 - 246 PG/ML DEFICIENT LESS THAN 211 PG/ML ID Date Data Source [id number] 05/07/2020 04:59:00 PM EST [facility] ([facility]) Name Value Range Interpretation Code Description Data Mary rce(s) Supporting Document(s) [place] [Mass/volume] in Serum or Plasma 0.61 meq/L 0.60-1. 20 Normal (applies to non-numeric results) [facility] ([facility]) ID Date Data Source [id number] 05/07/2020 04:59:00 PM EST [facility] ([facility]) Name Value Range Interpretation Code Description Data Mary rce(s) Supporting Document(s) Bacteria identified in Urine by Culture Laboratory test result [facility] ([facility]) ID Date Data Source [id number] 05/02/2020 12:41:00 PM EST [facility] ([facility]) Name Value Range Interpretation Code Description Data Mary rce(s) Supporting Document(s) Ferritin [Mass/volume] in Serum or Plasma 72 ng/mL 8-252 Normal (applies to non- numeric results) [facility] ([facility]) ID Date Data Source [id number] 05/02/2020 12:41:00 PM EST [facility] ([facility]) Name Value Range Interpretation Code Description Data Mary rce(s) Supporting Document(s) Zyakf-9-Bwhpongh % 5.1 % 2.9-4.9 Above high normal [facility] ([facility]) Albumin % 56.7 % 55.8-66.1 Normal (applies to non-numeric resul ts) [facility] ([facility]) Eqfhe-2-Lcdvocnvx % 12.7 % 7.1-11.8 Above high normal [facility] ([facility]) Rpmm-2-Dqufqtjdv % 7.3 % 4.7-7.2 Above high normal [facility] ([facility]) Kfgg-4-Ptkpqxdbx % 7.2 % 3.2-6.5 Above high normal [facility] ([facility]) Gamma Globulin % 11.0 % 11.1-18.8 Below low normal [facility] ([facility]) Albumin 4.08 GM/DL 3.29-5.55 Normal (applies to non-numeric resul ts) [facility] ([facility]) Vtpcn-8-Sdkzajpjw 0.91 GM/DL 0.42-0.99 Normal (applies to non- numeric results) [facility] ([facility]) Dffky-2-Duqzudxij 0.37 GM/DL 0.17-0.41 Normal (applies to non- numeric results) [facility] ([facility]) Sihp-2-Rtgmahide 0.53 GM/DL 0.28-0.60 Normal (applies to non-numeric results) [facility] ([facility]) Wljp-6-Blatkqeba 0.52 GM/DL 0.19-0.55 Normal (applies to non-numeric results) [facility] ([facility]) Gamma Globulins 0.79 GM/DL 0.65-1.58 Normal (applies to non-numeric results) [facility] ([facility]) Total Protein 7.2 GM/DL 6.4-8.2 Normal (applies to non-numeric re sults) [facility] ([facility]) Laboratory test finding (navigational concept) Laboratory test r esult Normal (applies to non-numeric results) [facility] ([facility]) REV'D BY O ADJAPONG Spep Interpretation Laboratory test result Samantha l (applies to non-numeric results) [facility] ([facility]) NO M-SPIKE(S)NOTED. ID Date Data Source [id number] 05/02/2020 12:41:00 PM EST [facility] ([facility]) Name Value Range Interpretation Code Description Data Mary rce(s) Supporting Document(s) Laboratory test finding (navigational concept) Laboratory test r esult Normal (applies to non-numeric results) [facility] ([facility]) REV'D BY O ADJAPONG Laboratory test finding (navigational concept) Laboratory test r esult Normal (applies to non-numeric results) [facility] ([facility]) NO MONOCLONAL BANDS NOTED. ID Date Data Source [id number] 05/02/2020 12:41:00 PM EST [facility] ([facility]) Name Value Range Interpretation Code Description Data Mary rce(s) Supporting Document(s) Iron (Fe) 106 ug/dL 50-170 Normal (applies to non-numeric resul ts) [facility] ([facility]) Percent Saturation 28.2 % 13.2-45.0 Normal (applies to non-numer ic results) [facility] ([facility]) Total Iron Binding Capacity 376 ug/dL 250-450 Norm al (applies to non-numeric results) [facility] ([facility]) ID Date Data Source [id number] 05/02/2020 12:41:00 PM EST [facility] ([facility]) Name Value Range Interpretation Code Description Data Mary rce(s) Supporting Document(s) Lactate dehydrogenase [Enzymatic activit y/volume] in Serum or Plasma by Lactate to pyruvate reaction 210 U/L 84-246 Normal (applies to non-numeric re sults) [facility] ([facility]) ID Date Data Source [id number] 05/02/2020 12:41:00 PM EST [facility] ([facility]) Name Value Range Interpretation Code Description Data Mary rce(s) Supporting Document(s) Glucose, Fasting 75 mg/dL 70-100 Normal (applies to non-numeric results) [facility] ([facility]) Blood Urea Nitrogen 14 mg/dL 7-18 Normal (applies to non-nume paula results) [facility] ([facility]) Creatinine For GFR 1.11 mg/dL 0.55-1.30 Normal (applies to non -numeric results) [facility] ([facility]) Glomerular Filtration Rate 50.6 Normal (applies to n on-numeric results) [facility] ([facility]) <content>Units are mL/min/1.73 m2</content>
<content></content>
<content>Chronic Kidney Disease Staging per NKF:</content>
<content></content>
<content>Stage I & II GFR >=60 Normal to Mildly Decreased</content>
<content>Stage III GFR 30-59 Moderately Decreased</content>
<content>Stage IV GFR 15-29 Severely Decreased</content>
<content>Stage V GFR <15 Very Little GFR Left</content>
<content>ESRD GFR <15 on PASTRY COOK APPRENTICE</content>
<content></content> Sodium Level 142 meq/L 136-145 Normal (applies to non-numeric res ults) [facility] ([facility]) Potassium Serum 3.9 meq/L 3.5-5.1 Normal (applies to non-numeric results) [facility] ([facility]) Chloride Level 109 meq/L 98-107 Above high normal [facility] ([facility]) Carbon Dioxide Level 31 meq/L 21-32 Normal (applies to non-num caren results) [facility] ([facility]) Anion Gap 2 meq/L 8-16 Below low normal [facility] ( [facility]) Ast/Sgot 14 U/L 7-37 Normal (applies to non-numeric resul ts) [facility] ([facility]) Calcium Level 9.5 mg/dL 8.8-10.2 Normal (applies to non-numeric re sults) [facility] ([facility]) Alt/SGPT 29 U/L 12-78 Normal (applies to non-numeric resul ts) [facility] ([facility]) Alkaline Phosphatase 86 U/L 45-117 Normal (applies to non-num caren results) [facility] Bilirubin,Total 0.3 mg/dL 0.2-1.0 Normal (applies to non-numeric results) [facility] ([facility]) Albumin 3.7 GM/DL 3.2-5.2 Normal (applies to non-numeric resul ts) [facility] ([facility]) Total Protein 7.2 GM/DL 6.4-8.2 Normal (applies to non-numeric re sults) [facility] ([facility]) Albumin/Globulin Ratio 1.1 1.2-2.2 Below low normal [facility] ([facility]) ID Date Data Source [id number] 05/02/2020 12:41:00 PM EST [facility] ([facility]) Name Value Range Interpretation Code Description Data Mary rce(s) Supporting Document(s) Haptoglobin [Mass/volume] in Serum or Plasma 194 mg/dL 42- 346 Normal (applies to non-numeric results) [facility] ([facility]) Performed at: RN - [facility] [address] [id number] Financial Intern: Geovanna Stroud MD, Phone: [phone] ID Date Data Source [id number] 05/02/2020 12:41:00 PM EST [facility] ([facility]) Name Value Range Interpretation Code Description Data Mary rce(s) Supporting Document(s) Wero Result Calc Laboratory test result Normal (a pplies to non-numeric results) [facility] ([facility]) ID Date Data Source [id number] 05/02/2020 12:41:00 PM EST [facility] ([facility]) Name Value Range Interpretation Code Description Data Mary rce(s) Supporting Document(s) Reticulocyte % 1.2 % 0.5-1.5 Normal (applies to non-numeric r esults) [facility] ([facility]) Reticulocyte # 46.5 10 17-77 Normal (applies to non-numeric r esults) [facility] ([facility]) Retic Hemoglobin Equivalent 35.5 pg 24-36 Norm al (applies to non-numeric results) [facility] ([facility]) ID Date Data Source [id number] 05/02/2020 12:41:00 PM EST [facility] ([facility]) Name Value Range Interpretation Code Description Data Mary rce(s) Supporting Document(s) White Blood Count 9.5 10 4.0-10.0 Normal (applies to non-numeri c results) [facility] ([facility]) Hemoglobin 12.3 g/dL 12.0-15.5 Normal (applies to non-numeric resul ts) [facility] ([facility]) Red Blood Count 3.95 10 4.00-5.40 Below low normal [facility] ([facility]) Hematocrit 39.3 % 36.0-47.0 Normal (applies to non-numeric resul ts) [facility] ([facility]) Mean Corpuscular Volume 99.5 fl 80.0-96.0 Above high normal [facility] ([facility]) Mean Corpuscular Hemoglobin 31.1 pg 27.0-33.0 Norm al (applies to non-numeric results) [facility] ([facility]) Mean Corpuscular HGB Conc 31.3 g/dL 32.0-36.5 Below low normal [facility] ([facility]) Red Cell Distribution Width 13.1 % 11.5-14.5 Norm al (applies to non-numeric results) [facility] ([facility]) Platelet Count, Automated 434 10 150-450 Normal (applies to non-numeric results) [facility] ([facility]) Neutrophils % 59.8 % 36.0-66.0 Normal (applies to non-numeric re sults) [facility] ([facility]) Lymph % 25.2 % 24.0-44.0 Normal (applies to non-numeric resul ts) [facility] ([facility]) [place] % 10.0 % 0.0-5.0 Above high normal [facility] ([facility]) Eos % 3.7 % 0.0-3.0 Above high normal [facility] ([facility]) Immature Granulocyte % 0.3 % 0-3.0 Normal (applies to non-n umeric results) [facility] ([facility]) Baso % 1.0 % 0.0-1.0 Normal (applies to non-numeric resul ts) [facility] ([facility]) Neutrophils # 5.7 10 1.5-8.5 Normal (applies to non-numeric re sults) [facility] ([facility]) Nucleated Red Blood Cell % 0.0 % 0-0 Normal (applies to n on-numeric results) [facility] ([facility]) Lymph # 2.4 10 1.5-5.0 Normal (applies to non-numeric resul ts) [facility] ([facility]) [place] # 1.0 10 0.0-0.8 Above high normal [facility] ([facility]) Baso # 0.1 10 0.0-0.2 Normal (applies to non-numeric resul ts) [facility] ([facility]) Eos # 0.4 10 0.0-0.5 Normal (applies to non-numeric resul ts) [facility] ([facility]) ID Date Data Source [id number] 04/02/2020 12:00:00 AM EST [facility] Temitope Contreras DO Patient Name: DAYAMI [address] Date of : [address] Date of Exam: 04/02/2020KIT Montesinos [id number]#: Fax: [phone] EXAM: HIP LEFT UNILATERAL (COMPLETE) [...] rce(s) Supporting Document(s) ID Date Data Source [id number] 02/27/2020 09:04:00 AM EDT [facility] ([facility]) Name Value Range Interpretation Code Description Data Mary rce(s) Supporting Document(s) Natriuretic peptide.B prohormone N-Terminal [Mass/volu me] in Serum or Plasma 140 pg/mL Normal (applies to non-numeric results) [facility] ([facility]) FAX TO [phone] FAX TO [phone] Magnesium [Mass/volume] in Serum or Plasma 2.9 mg/dL 1.8-2.4 Above high normal [facility] ([facility]) FAX TO [phone] FAX TO [phone] Thyrotropin [Units/volume] in Serum or Plasma 1.080 uIU/ML 0. 358-3.740 Normal (applies to non-numeric results) [facility] ([facility]) FAX TO [phone] FAX TO [phone] ID Date Data Source [id number] 02/27/2020 09:04:00 AM EDT [facility] ([facility]) Name Value Range Interpretation Code Description Data Mary rce(s) Supporting Document(s) Glucose, Fasting 86 mg/dL 70-100 Normal (applies to non-numeric results) [facility] ([facility]) Blood Urea Nitrogen 15 mg/dL 7-18 Normal (applies to non-nume paula results) [facility] ([facility]) Sodium Level 144 meq/L 136-145 Normal (applies to non-numeric res ults) [facility] ([facility]) Glomerular Filtration Rate 54.0 Normal (applies to n on-numeric results) [facility] ([facility]) <content>Units are mL/min/1.73 m2</content>
<content></content>
<content>Chronic Kidney Disease Staging per NKF:</content>
<content></content>
<content>Stage I & II GFR >=60 Normal to Mildly Decreased</content>
<content>Stage III GFR 30- 59 Moderately Decreased</content>
<content>Stage IV GFR 15-29 Severely Decreased</content>
<content>Stage V GFR <15 Very Little GFR Left</content>
<content>ESRD GFR <15 on PASTRY COOK APPRENTICE</content>
<content></content> Creatinine For GFR 1.05 mg/dL 0.55-1.30 Normal (applies to non -numeric results) [facility] ([facility]) Chloride Level 109 meq/L 98-107 Above high normal [facility] ([facility]) Potassium Serum 4.6 meq/L 3.5-5.1 Normal (applies to non-numeric results) [facility] ([facility]) Carbon Dioxide Level 31 meq/L 21-32 Normal (applies to non-num caren results) [facility] ([facility]) Anion Gap 4 meq/L 8-16 Below low normal [facility] ( [facility]) Calcium Level 8.9 mg/dL 8.8-10.2 Normal (applies to non-numeric re sults) [facility] ([facility]) Alt/SGPT 24 U/L 12-78 Normal (applies to non-numeric resul ts) [facility] ([facility]) Ast/Sgot 15 U/L 7-37 Normal (applies to non-numeric resul ts) [facility] ([facility]) Alkaline Phosphatase 82 U/L 45-117 Normal (applies to non-num caren results) [facility] ([facility]) Total Protein 6.8 GM/DL 6.4-8.2 Normal (applies to non-numeric re sults) [facility] ([facility]) Bilirubin,Total 0.3 mg/dL 0.2-1.0 Normal (applies to non-numeric results) [facility] ([facility]) Albumin/Globulin Ratio 1.1 1.2-2.2 Below low normal [facility] ([facility]) Albumin 3.5 GM/DL 3.2-5.2 Normal (applies to non-numeric resul ts) [facility] ([facility]) ID Date Data Source [id number] 02/27/2020 09:04:00 AM EDT [facility] ([facility]) Name Value Range Interpretation Code Description Data Mary rce(s) Supporting Document(s) Red Blood Count 3.48 10 4.00-5.40 Below low normal [facility] ([facility]) White Blood Count 8.8 10 4.0-10.0 Normal (applies to non-numeri c results) [facility] ([facility]) Mean Corpuscular Volume 100.3 fl 80.0-96.0 Above high normal [facility] ([facility]) Hematocrit 34.9 % 36.0-47.0 Below low normal [facility] ( [facility]) Hemoglobin 10.6 g/dL 12.0-15.5 Below low normal [facility] ( [facility]) Mean Corpuscular Hemoglobin 30.5 pg 27.0-33.0 Norm al (applies to non-numeric results) [facility] ([facility]) Mean Corpuscular HGB Conc 30.4 g/dL 32.0-36.5 Below low normal [facility] ([facility]) Red Cell Distribution Width 13.5 % 11.5-14.5 Norm al (applies to non-numeric results) [facility] ([facility]) Platelet Count, Automated 357 10 150-450 Normal (applies to non-numeric results) [facility] ([facility]) Lymph % 28.9 % 24.0-44.0 Normal (applies to non-numeric resul ts) [facility] ([facility]) Neutrophils % 56.1 % 36.0-66.0 Normal (applies to non-numeric re sults) [facility] ([facility]) Baso % 1.1 % 0.0-1.0 Above high normal [facility] ([facility]) Eos % 2.8 % 0.0-3.0 Normal (applies to non-numeric resul ts) [facility] ([facility]) [place] % 10.9 % 0.0-5.0 Above high normal [facility] ([facility]) Immature Granulocyte % 0.2 % 0-3.0 Normal (applies to non-n umeric results) [facility] ([facility]) Nucleated Red Blood Cell % 0.0 % 0-0 Normal (applies to n on-numeric results) [facility] ([facility]) Neutrophils # 4.9 10 1.5-8.5 Normal (applies to non-numeric re sults) [facility] ([facility]) [place] # 1.0 10 0.0-0.8 Above high normal [facility] ([facility]) Lymph # 2.5 10 1.5-5.0 Normal (applies to non-numeric resul ts) [facility] ([facility]) Eos # 0.3 10 0.0-0.5 Normal (applies to non-numeric resul ts) [facility] ([facility]) Baso # 0.1 10 0.0-0.2 Normal (applies to non-numeric resul ts) [facility] ([facility]) Procedure Social History Code Duration Value Status Description Data Source(s ) Smoking 02/24/2021 12:00:00 AM EDT Patient has never smoked co mpleted Patient has never smoked [facility] ([facility]) Smoking 01/23/2021 12:00:00 AM EDT Never Smoker completed Never S mihaela [email or web address] ([facility]) Smoking 01/23/2021 12:00:00 AM EDT Never Smoker completed Never S mihaela [email or web address] ([facility]) Vital Signs ID Date Data Source UNK Name Value Range Interpretation Code Description Data Source(s) Body height 59.6 [in_i] 59.6 [in_i] [facility] ([facility]) 4'11.60" Diastolic blood pressure 76 mm[Hg] 76 mm[Hg] [facility] Body temperature 98.5 [degF] 98.5 [degF] [facility] ([facility]) Body mass index (BMI) [Ratio] 30.5 kg/m2 30.5 k g/m2 [facility] ([facility]) Heart rate 67 /min 67 /min [facility] ([facility]) Respiratory rate 20 /min 20 /min [facility] ( [facility]) Body weight 154.00 [lb_av] 154.00 [lb_av] [facility] ([facility]) Oxygen saturation in Arterial blood by Pulse oximetry 96 % 96 % [facility] ([facility]) [place] body weight 100 [lb_av] 100 [lb_av] [facility] ([facility]) Systolic blood pressure 126 mm[Hg] 126 mm[Hg] M [facility] ([facility]) [place] body weight 110 [lb_av] 110 [lb_av] [facility] ([facility], ) Body weight 70.903 kg 70.903 kg [facility] ([facility]) Body temperature 98.3 [degF] 98.3 [degF] [facility] ([facility]) Body height 62 [in_i] 62 [in_i] [facility] ([facility]) 5'2" Body weight 156.31 [lb_av] 156.31 [lb_av] [facility] ([facility], ) Body mass index (BMI) [Ratio] 28.6 kg/m2 28.6 k g/m2 [facility] ([facility], ) Body surface area Derived from formula 1.72 m2 1.72 m2 [facility] ([facility]) Systolic blood pressure 152 mm[Hg] 152 mm[Hg] [facility] Diastolic blood pressure 74 mm[Hg] 74 mm[Hg] [facility] ([facility]) Systolic blood pressure 120 mm[Hg] 120 mm[Hg] [facility] Diastolic blood pressure 70 mm[Hg] 70 mm[Hg] [facility] ([facility]) Body mass index (BMI) [Ratio] 30.9 kg/m2 30.9 k g/m2 [facility] ([facility]) Heart rate 99 /min 99 /min [facility] ([facility]) Respiratory rate 12 /min 12 /min [facility] ( [facility]) Body temperature 98.0 [degF] 98.0 [degF] [facility] ([facility]) Oxygen saturation in Arterial blood by Pulse oximetry 99 % 99 % [facility] ([facility]) [place] body weight 100 [lb_av] 100 [lb_av] [facility] Body height 59.6 [in_i] 59.6 [in_i] [facility] ([facility]) 4'11.60" Body weight 156.38 [lb_av] 156.38 [lb_av] [facility] ([facility]) Body weight 156.25 [lb_av] 156.25 [lb_av] [facility] ([facility]) Body mass index (BMI) [Ratio] 30.9 kg/m2 30.9 k g/m2 [facility] ([facility]) Heart rate 99 /min 99 /min [facility] ([facility]) Respiratory rate 18 /min 18 /min [facility] ( [facility]) Body temperature 98.6 [degF] 98.6 [degF] [facility] ([facility]) Oxygen saturation in Arterial blood by Pulse oximetry 96 % 96 % [facility] ([facility]) Systolic blood pressure 128 mm[Hg] 128 mm[Hg] M [facility] ([facility]) Diastolic blood pressure 72 mm[Hg] 72 mm[Hg] [facility] ([facility]) Body height 59.6 [in_i] 59.6 [in_i] [facility] ([facility]) 60" [place] body weight 100 [lb_av] 100 [lb_av] [facility] ([facility]) Body weight 155.0 [lb_av] 155.0 [lb_av] eCW1 ([facility]) Heart rate 76 /min 76 /min eCW1 ([facility]) Body height 61.5 [in_i] 61.5 [in_i] eCW1 ([facility]) Body mass index (BMI) [Ratio] 28.81 kg/m2 28.81 kg/m2 eCW1 ([facility]) Oxygen saturation in Arterial blood by Pulse oximetry 99 % 99 % eCW1 ([facility]) Body temperature 99.1 [degF] 99.1 [degF] [facility] ([facility]) Systolic blood pressure 132 mm[Hg] 132 mm[Hg] M EDLEANNE ([facility]) Diastolic blood pressure 68 mm[Hg] 68 mm[Hg] [facility] ([facility]) Body height 59.6 [in_i] 59.6 [in_i] [facility] ([facility]) 60" Body weight 154.12 [lb_av] 154.12 [lb_av] [facility] ([facility]) Body mass index (BMI) [Ratio] 30.5 kg/m2 30.5 k g/m2 [facility] ([facility]) Heart rate 78 /min 78 /min [facility] ([facility]) Respiratory rate 18 /min 18 /min [facility] ( [facility]) Oxygen saturation in Arterial blood by Pulse oximetry 97 % 97 % [facility] ([facility]) [place] body weight 100 [lb_av] 100 [lb_av] [facility] ([facility]) Body weight 150.38 [lb_av] 150.38 [lb_av] [facility] ([facility]) Body mass index (BMI) [Ratio] 29.8 kg/m2 29.8 k g/m2 [facility] ([facility]) Oxygen saturation in Arterial blood by Pulse oximetry 97 % 97 % [facility] ([facility]) [place] body weight 100 [lb_av] 100 [lb_av] [facility] ([facility]) Systolic blood pressure 148 mm[Hg] 148 mm[Hg] M [facility] ([facility]) Diastolic blood pressure 80 mm[Hg] 80 mm[Hg] [facility] ([facility]) Body height 59.6 [in_i] 59.6 [in_i] [facility] ([facility]) 4'11.60" Heart rate 81 /min 81 /min [facility] ([facility]) Body temperature 98.5 [degF] 98.5 [degF] [facility] ([facility]) Systolic blood pressure 125 mm[Hg] 125 mm[Hg] M [facility] ([facility], [facility]) Diastolic blood pressure 72 mm[Hg] 72 mm[Hg] [facility] ([facility], [facility]) Heart rate 84 /min 84 /min [facility] ([facility], [facility]) Respiratory rate 16 /min 16 /min [facility] ( [facility], [facility]) Oxygen saturation in Arterial blood by Pulse oximetry 99 % 99 % [facility] ([facility], [facility]) Body temperature 98.4 [degF] 98.4 [degF] [facility] ([facility], [facility]) Body weight 150.00 [lb_av] 150.00 [lb_av] [facility] T ([facility], [facility]) Body height 61 [in_i] 61 [in_i] [facility] ([facility], [facility]) 5'1" Body mass index (BMI) [Ratio] 28.3 kg/m2 28.3 k g/m2 [facility] ([facility], [facility]) [place] body weight 100 [lb_av] 100 [lb_av] [facility] ([facility]) Systolic blood pressure 132 mm[Hg] 132 mm[Hg] M [facility] ([facility]) Diastolic blood pressure 74 mm[Hg] 74 mm[Hg] [facility] ([facility]) Body height 59.6 [in_i] 59.6 [in_i] [facility] ([facility]) 4'11.60" Body weight 150.50 [lb_av] 150.50 [lb_av] [facility] ([facility]) Body mass index (BMI) [Ratio] 29.8 kg/m2 29.8 k g/m2 [facility] ([facility]) Heart rate 90 /min 90 /min [facility] ([facility]) Respiratory rate 18 /min 18 /min [facility] Body temperature 98.4 [degF] 98.4 [degF] [facility] ([facility]) Oxygen saturation in Arterial blood by Pulse oximetry 98 % 98 % [facility] ([facility]) Heart rate 84 /min 84 /min [facility] ([facility]) Body mass index (BMI) [Ratio] 28.9 kg/m2 28.9 k g/m2 [facility] ([facility]) Body height 59.6 [in_i] 59.6 [in_i] [facility] ([facility]) 4'11.60" Systolic blood pressure 122 mm[Hg] 122 mm[Hg] M [facility] ([facility]) Diastolic blood pressure 82 mm[Hg] 82 mm[Hg] [facility] ([facility]) Respiratory rate 20 /min 20 /min [facility] ( [facility]) Body temperature 97.3 [degF] 97.3 [degF] [facility] ([facility]) Oxygen saturation in Arterial blood by Pulse oximetry 99 % 99 % [facility] ([facility]) Body weight 146.00 [lb_av] 146.00 [lb_av] [facility] ([facility]) [place] body weight 100 [lb_av] 100 [lb_av] [facility] ([facility]) Systolic blood pressure 140 mm[Hg] 140 mm[Hg] M [facility] ([facility]) Diastolic blood pressure 74 mm[Hg] 74 mm[Hg] [facility] ([facility]) [place] body weight 100 [lb_av] 100 [lb_av] [facility] ([facility]) Body height 59.6 [in_i] 59.6 [in_i] [facility] ([facility]) 4'.60" Body weight 150.38 [lb_av] 150.38 [lb_av] [facility] ([facility]) Body mass index (BMI) [Ratio] 29.8 kg/m2 29.8 k g/m2 [facility] ([facility]) Heart rate 103 /min 103 /min [facility] ([facility]) Respiratory rate 14 /min 14 /min [facility] ( [facility]) Body temperature 98.3 [degF] 98.3 [degF] [facility] ([facility]) Oxygen saturation in Arterial blood by Pulse oximetry 97 % 97 % [facility] ([facility]) Oxygen saturation in Arterial blood by Pulse oximetry 99 % 99 % [facility] ([facility]) Body mass index (BMI) [Ratio] 30.3 kg/m2 30.3 k g/m2 [facility] ([facility]) Heart rate 96 /min 96 /min [facility] ([facility]) Systolic blood pressure 144 mm[Hg] 144 mm[Hg] M [facility] ([facility]) Diastolic blood pressure 68 mm[Hg] 68 mm[Hg] [facility] ([facility]) Body height 59.6 [in_i] 59.6 [in_i] [facility] ([facility]) 4'11.60" Body weight 153.00 [lb_av] 153.00 [lb_av] [facility] ([facility]) Respiratory rate 18 /min 18 /min [facility] ( [facility]) Body temperature 98.3 [degF] 98.3 [degF] [facility] ([facility]) [place] body weight 100 [lb_av] 100 [lb_av] [facility] ([facility]) Systolic blood pressure 124 mm[Hg] 124 mm[Hg] [facility] ([facility]) Diastolic blood pressure 72 mm[Hg] 72 mm[Hg] [facility] ([facility]) Body height 59.6 [in_i] 59.6 [in_i] [facility] ([facility]) 4'11.60" Heart rate 88 /min 88 /min [facility] ([facility]) Respiratory rate 18 /min 18 /min [facility] ( [facility]) Body temperature 98.3 [degF] 98.3 [degF] [facility] ([facility]) Oxygen saturation in Arterial blood by Pulse oximetry 97 % 97 % [facility] ([facility]) [place] body weight 100 [lb_av] 100 [lb_av] [facility] ([facility]) Systolic blood pressure 128 mm[Hg] 128 mm[Hg] [facility] ([facility]) Diastolic blood pressure 80 mm[Hg] 80 mm[Hg] [facility] ([facility]) [place] body weight 100 [lb_av] 100 [lb_av] [facility] ([facility]) Body height 59.6 [in_i] 59.6 [in_i] [facility] ([facility]) 4'11.60" Body weight 150.50 [lb_av] 150.50 [lb_av] [facility] ([facility]) Body mass index (BMI) [Ratio] 29.8 kg/m2 29.8 k g/m2 [facility] ([facility]) Heart rate 89 /min 89 /min [facility] ([facility]) Respiratory rate 16 /min 16 /min [facility] ( [facility]) Body temperature 97.6 [degF] 97.6 [degF] [facility] ([facility]) Oxygen saturation in Arterial blood by Pulse oximetry 96 % 96 % [facility] ([facility]) Patient Treatment Plan of Care Planned Activity Planned Date Details Description Data Source (s) Amphetamine aspartate 5 MG / Amphetamine Sulfate 5 MG / Dextroamphetamine saccharate 5 MG / Dextroamphetamine Sulfate 5 MG Oral Tablet [Adderall] 10/24/2020 12:00:00 AM EDT eCW1 ([facility]) Amphetamine aspartate 5 MG / Amphetamine Sulfate 5 MG / Dextroamphetamine saccharate 5 MG / Dextroamphetamine Sulfate 5 MG Oral Tablet [Adderall] 07/23/2020 12:00:00 AM EST eCW1 ([facility])
--- NOTE | 2021-04-24 11:13 | ROOR ---
Patient Name: Rachel Puga Procedure Date: 04/24/2021 10:56 AM Date of : 1940 Age: 80 Room: [facility] Gender: Female Note Status: Finalized Procedure: Upper GI endoscopy Indications: Iron deficiency anemia Providers: Fox Rucker Jr, MD Referring MD: Temitope DOLAN DO Requesting Provider: Medicines: Propofol per Anesthesia Complications: No immediate complications. Procedure: Pre-Anesthesia Assessment: - Prior to the procedure, a History and Physical was performed, and patient medications and allergies were reviewed. The patient is competent. The risks and benefits of the procedure and the sedation options and risks were discussed with the patient. All questions were answered and informed consent was obtained. Patient identification and proposed procedure were verified by the physician and the nurse in the pre-procedure area and in the procedure room. Mental Status Examination: alert and oriented. Airway Examination: normal oropharyngeal airway and neck mobility. Respiratory Examination: clear to auscultation. CV Examination: normal. ASA Grade Assessment: II - A patient with mild systemic disease. After reviewing the risks and benefits, the patient was deemed in satisfactory condition to undergo the procedure. The anesthesia plan was to use moderate sedation / analgesia (conscious sedation). Immediately prior to administration of medications, the patient was re-assessed for adequacy to receive sedatives. The heart rate, respiratory rate, oxygen saturations, blood pressure, adequacy of pulmonary ventilation, and response to care were monitored throughout the procedure. The physical status of the patient was re-assessed after the procedure. The Endoscope was introduced through the mouth, and advanced to the second part of duodenum. The upper GI endoscopy was accomplished without difficulty. The patient tolerated the procedure well. Findings: The upper third of the esophagus, middle third of the esophagus and lower third of the esophagus were normal. Non-severe esophagitis was found at the gastroesophageal junction. Biopsies were taken with a cold forceps for histology. The cardia, gastric fundus, gastric body, gastric antrum, prepyloric region of the stomach and pylorus were normal. The second portion of the duodenum was normal. Patchy moderate inflammation characterized by congestion (edema), erythema, friability and granularity was found in the duodenal bulb. Impression: - Normal upper third of esophagus, middle third of esophagus and lower third of esophagus. - Non-severe reflux esophagitis. Biopsied. - Normal cardia, gastric fundus, gastric body, antrum, prepyloric region of the stomach and pylorus. - Normal second portion of the duodenum. - Duodenitis. Recommendation: - Discharge patient to home (ambulatory). - Return to my office as previously scheduled. Procedure Code(s): --- Professional --- 54837, Esophagogastroduodenoscopy, flexible, transoral; with biopsy, single or multiple Diagnosis Code(s): --- Professional --- K21.0, Gastro-esophageal reflux disease with esophagitis K29.80, Duodenitis without bleeding D50.9, Iron deficiency anemia, unspecified CPT copyright 2019 [employer]. All rights reserved. The codes documented in this report are preliminary and upon travel clerk review may be revised to meet current compliance requirements. Fox Rucker MD Fox Rucker Jr, MD 04/24/2021 11:13:21 AM Electronically signed by Fox Rucker Jr, MD Number of Addenda: 0 Note Initiated On: 04/24/2021 10:56 AM Estimated Blood Loss: Estimated blood loss: none.
--- NOTE | 2021-04-24 11:37 | ROOR ---
Patient Name: Rachel Puga Procedure Date: 04/24/2021 10:59 AM Date of : 1940 Age: 80 Room: [facility] Gender: Female Note Status: Finalized Procedure: Colonoscopy Indications: Iron deficiency anemia Providers: Fox Rucker Jr, MD Referring MD: Temitope DOLAN DO Requesting Provider: Medicines: Propofol per Anesthesia Complications: No immediate complications. Procedure: Pre-Anesthesia Assessment: - Prior to the procedure, a History and Physical was performed, and patient medications and allergies were reviewed. The patient is competent. The risks and benefits of the procedure and the sedation options and risks were discussed with the patient. All questions were answered and informed consent was obtained. Patient identification and proposed procedure were verified by the physician and the nurse in the pre-procedure area and in the procedure room. Mental Status Examination: alert and oriented. Airway Examination: normal oropharyngeal airway and neck mobility. Respiratory Examination: clear to auscultation. CV Examination: normal. ASA Grade Assessment: II - A patient with mild systemic disease. After reviewing the risks and benefits, the patient was deemed in satisfactory condition to undergo the procedure. The anesthesia plan was to use moderate sedation / analgesia (conscious sedation). Immediately prior to administration of medications, the patient was re-assessed for adequacy to receive sedatives. The heart rate, respiratory rate, oxygen saturations, blood pressure, adequacy of pulmonary ventilation, and response to care were monitored throughout the procedure. The physical status of the patient was re-assessed after the procedure. The Colonoscope was introduced through the anus and advanced to the cecum, identified by appendiceal orifice and ileocecal valve. The colonoscopy was performed without difficulty. The patient tolerated the procedure well. The quality of the bowel preparation was adequate. Findings: The rectum, recto-sigmoid colon, descending colon, transverse colon, ascending colon, cecum, appendiceal orifice and ileocecal valve appeared normal. Multiple small and large-mouthed diverticula were found in the sigmoid colon. Impression: - The rectum, recto-sigmoid colon, descending colon, transverse colon, ascending colon, cecum, appendiceal orifice and ileocecal valve are normal. - Diverticulosis in the sigmoid colon. - No specimens collected. Recommendation: - Discharge patient to home (ambulatory). - Repeat colonoscopy in 10 years for screening purposes. Procedure Code(s): --- Professional --- 17229, Colonoscopy, flexible; diagnostic, including collection of specimen(s) by brushing or washing, when performed (separate procedure) Diagnosis Code(s): --- Professional --- D50.9, Iron deficiency anemia, unspecified K57.30, Diverticulosis of large intestine without perforation or abscess without bleeding CPT copyright 2019 [employer]. All rights reserved. The codes documented in this report are preliminary and upon community mental health social worker review may be revised to meet current compliance requirements. Fox Rucker MD Fox Rucker Jr, MD 04/24/2021 11:36:22 AM Electronically signed by Fox Rucker Jr, MD Number of Addenda: 0 Note Initiated On: 04/24/2021 10:59 AM Estimated Blood Loss: Estimated blood loss: none.
[2021-04-24 12:04] VITALS: BP 188/85
== END 2021-04-24 12:06 | disposition home or self-care (01) ==
LOC: M OPP 10:20
PROVIDERS: ATTEND Surgery
DX: K57.30 Diverticulosis of large intestine without perforation or abscess without bleeding (principal); D50.9 Iron deficiency anemia, unspecified; R19.5 Other fecal abnormalities; K21.00 Gastro-esophageal reflux disease with esophagitis, without bleeding; K29.80 Duodenitis without bleeding; Z88.2 Allergy status to sulfonamides; Z91.030 Bee allergy status; Z85.3 Personal history of malignant neoplasm of breast

== ENCOUNTER → 2021-04-29 | Outpatient (REF) | payer MEDICARE, OTHER ==
[~2021-04-29] MED LIST changes: -LIDOCAINE 2% 100MG/5ML SDV (FOR ANES.) As Ordered ONE; -NS 1,000 ML IV ONE; -propofoL 200 MG/20 ML VIAL As Ordered ONE
== END ==
LOC: M LAB REF 17:38
PROVIDERS: ATTEND Physician Assistant
DX: R53.83 Other fatigue (principal)

== ENCOUNTER → 2021-04-30 | Outpatient (CLI) | payer MEDICARE, OTHER ==
[2021-04-30 13:28] LABS: BASO # 0.1 10^3/uL (0.0-0.2); BASO % 0.7 % (0.0-1.0); EOS # 0.3 10^3/uL (0.0-0.5); EOS % 3.3 % (0.0-3.0); HEMATOCRIT 38.9 % (36.0-47.0); LYMPH # 2.4 10^3/uL (1.5-5.0); LYMPH % 24.9 % (24.0-44.0); MEAN CORPUSCULAR HGB CONC 30.8 g/dl (32.0-36.5); MEAN CORPUSCULAR VOLUME 97.3 fl (80.0-96.0); NEUTROPHILS % 60.8 % (36.0-66.0); PLATELET COUNT, AUTOMATED 375 10^3/uL (150-450); WHITE BLOOD COUNT 9.8 10^3/uL (4.0-10.0)
[2021-04-30 14:20] LABS: ALBUMIN 3.8 GM/DL (3.2-5.2); BILIRUBIN,TOTAL 0.3 MG/DL (0.2-1.0); CALCIUM LEVEL 9.3 MG/DL (8.8-10.2); CREATININE FOR GFR 1.19 MG/DL (0.55-1.30); FOLATE 19.4 NG/ML (>5.4); FREE T4 0.91 NG/DL (0.76-1.46); GLOMERULAR FILTRATION RATE 46.6 (>39); MAGNESIUM LEVEL 2.3 MG/DL (1.8-2.4); POTASSIUM SERUM 3.6 MEQ/L (3.5-5.1); THYROID STIMULATING HORMONE 0.862 uIU/ML (0.358-3.740); TOTAL 25(OH) VITAMIN D 49.7 NG/ML (30.0-100.0); TOTAL PROTEIN 7.5 GM/DL (6.4-8.2)
== END ==
LOC: M LAB 12:49
PROVIDERS: ATTEND Physician Assistant
DX: E87.6 Hypokalemia (principal); E07.9 Disorder of thyroid, unspecified

== ENCOUNTER → 2021-06-02 | Outpatient (CLI) | payer MEDICARE, OTHER ==
[~2021-06-02] MED LIST changes: +LOSA25TA13 PO; -LOSA25TA14 PO
== END ==
LOC: M PLARAD 13:54
PROVIDERS: ATTEND Physician Assistant
DX: R91.8 Other nonspecific abnormal finding of lung field (principal)
CPT/HCPCS: 78816; A9552

== ENCOUNTER → 2021-06-26 | Outpatient (REF) | payer MEDICARE, OTHER ==
[~2021-06-26] MED LIST changes: +LATU1TAB PO; -LATU40TA PO; +LATU40TA2 PO
[2021-06-26 15:46] LABS: CALCIUM LEVEL 9.3 MG/DL (8.8-10.2); CREATININE FOR GFR 1.52 MG/DL (0.55-1.30); GLOMERULAR FILTRATION RATE 35.1 (>39); POTASSIUM SERUM 3.8 MEQ/L (3.5-5.1)
== END ==
LOC: M LAB REF 14:54
PROVIDERS: ATTEND Nurse Practitioner Adult Health
DX: I50.9 Heart failure, unspecified (principal)

== ENCOUNTER → 2021-07-16 | Outpatient (CLI) | payer MEDICARE, OTHER ==
[2021-07-16 10:48] LABS: CALCIUM LEVEL 9.3 MG/DL (8.8-10.2); CREATININE FOR GFR 1.31 MG/DL (0.55-1.30); GLOMERULAR FILTRATION RATE 41.7 (>39); POTASSIUM SERUM 3.7 MEQ/L (3.5-5.1)
== END ==
LOC: M LAB 09:50
PROVIDERS: ATTEND Nurse Practitioner
DX: N18.31 Chronic kidney disease, stage 3a (principal)

== ENCOUNTER → 2021-07-26 | Outpatient (CLI) | payer MEDICARE, OTHER | LOC: M LAB 09:51 | PROVIDERS: ATTEND Nurse Practitioner Psychiatric/Mental Health | DX: Z79.899 Other long term (current) drug therapy (principal) ==

== ENCOUNTER → 2021-08-05 | Outpatient (CLI) | payer MEDICARE, OTHER ==
[2021-08-05 14:48] LABS: ALBUMIN 4.3 GM/DL (3.2-5.2); BILIRUBIN,TOTAL 0.5 MG/DL (0.2-1.0); CREATININE FOR GFR 1.49 MG/DL (0.55-1.30); GLOMERULAR FILTRATION RATE 35.9 (>39); LITHIUM LEVEL 0.67 MEQ/L (0.60-1.20); TOTAL PROTEIN 7.9 GM/DL (6.4-8.2)
[2021-08-05 17:21] LABS: APPEARANCE, URINE HAZY (CLEAR); BACTERIA, URINE AUTO 1+ (NEGATIVE); BILIRUBIN, URINE AUTO NEGATIVE (NEGATIVE); BLOOD, URINE BLOOD NEGATIVE (NEGATIVE); COLOR, URINE YELLOW (YELLOW); GLUCOSE, URINE (UA) AUTO NEGATIVE (NEGATIVE); KETONE, URINE AUTO NEGATIVE (NEGATIVE); LEUKOCYTE ESTERASE, URINE AUTO 3+ (NEGATIVE); NITRITE, URINE AUTO NEGATIVE (NEGATIVE); PROTEIN, URINE AUTO NEGATIVE (NEGATIVE); RBC, URINE AUTO 2 /HPF (0-3); SPECIFIC GRAVITY URINE AUTO 1.006 (1.002-1.035); SQUAMOUS EPITHELIAL CELL UR AU 1 /HPF (0-6); UROBILINOGEN, URINE AUTO 0.2 mg/dL (0.0-2.0); WBC, URINE AUTO 7 /HPF (0-3)
== END ==
LOC: M LAB 12:24
PROVIDERS: ATTEND Nurse Practitioner Psychiatric/Mental Health
DX: F31.31 Bipolar disorder, current episode depressed, mild (principal)

== ENCOUNTER → 2021-08-05 | Outpatient (CLI) | payer MEDICARE, OTHER ==
[2021-08-05 09:45] LABS: CALCIUM LEVEL 9.7 MG/DL (8.8-10.2); CREATININE FOR GFR 1.52 MG/DL (0.55-1.30); FREE T4 1.16 NG/DL (0.76-1.46); GLOMERULAR FILTRATION RATE 35.1 (>39); MAGNESIUM LEVEL 3.1 MG/DL (1.8-2.4); POTASSIUM SERUM 3.8 MEQ/L (3.5-5.1); THYROID STIMULATING HORMONE 0.621 uIU/ML (0.358-3.740)
== END ==
LOC: M LAB 08:45
PROVIDERS: ATTEND Physician Assistant
DX: R60.9 Edema, unspecified (principal); R53.83 Other fatigue; E03.9 Hypothyroidism, unspecified; F31.31 Bipolar disorder, current episode depressed, mild

== ENCOUNTER 2021-08-17 03:34 | Inpatient (IN) | payer MEDICARE, OTHER ==
[~2021-08-17] VITALS: Ht 157.5 cm; Wt 66.8 kg
[2021-08-17 04:40] LABS: BASO % 0.3 % (0.0-1.0); EOS # 0.4 10^3/uL (0.0-0.5); EOS % 3.1 % (0.0-3.0); HEMATOCRIT 38.1 % (36.0-47.0); HEMOGLOBIN 12.3 g/dl (12.0-15.5); LYMPH # 1.3 10^3/uL (1.5-5.0); LYMPH % 10.4 % (24.0-44.0); MEAN CORPUSCULAR HEMOGLOBIN 30.1 pg (27.0-33.0); MEAN CORPUSCULAR HGB CONC 32.3 g/dl (32.0-36.5); MEAN CORPUSCULAR VOLUME 93.2 fl (80.0-96.0); MONO # 1.5 10^3/uL (0.0-0.8); MONO % 11.4 % (2.0-8.0); NEUTROPHILS # 9.6 10^3/uL (1.5-8.5); NEUTROPHILS % 74.5 % (36.0-66.0); PLATELET COUNT, AUTOMATED 295 10^3/uL (150-450); RED BLOOD COUNT 4.09 10^6/uL (4.00-5.40); WHITE BLOOD COUNT 12.9 10^3/uL (4.0-10.0)
[2021-08-17 04:51] LABS: CK-MB VALUE MASS < 1.0 NG/ML (<3.6); CPK CREATINE PHOSPHOKINASE 69 U/L (26-192); MB/CK RELATIVE INDEX 1.45 (< OR =4)
[2021-08-17 04:52] LABS: ALBUMIN 3.6 GM/DL (3.2-5.2); ALT/SGPT 39 U/L (12-78); BILIRUBIN,DIRECT < 0.1 MG/DL (0.0-0.2); BILIRUBIN,TOTAL 0.4 MG/DL (0.2-1.0); BLOOD UREA NITROGEN 15 MG/DL (7-18); CALCIUM LEVEL 9.2 MG/DL (8.8-10.2); CARBON DIOXIDE LEVEL 33 MEQ/L (21-32); CHLORIDE LEVEL 106 MEQ/L (98-107); CREATININE FOR GFR 1.33 MG/DL (0.55-1.30); GLUCOSE, FASTING 120 MG/DL (70-100); POTASSIUM SERUM 3.8 MEQ/L (3.5-5.1); SODIUM LEVEL 141 MEQ/L (136-145); THYROID STIMULATING HORMONE 0.191 uIU/ML (0.358-3.740); TOTAL PROTEIN 6.9 GM/DL (6.4-8.2)
[2021-08-17 05:18] LABS: FREE T4 1.16 NG/DL (0.76-1.46)
[2021-08-17] MEDS ORDERED: NS 500 ML IV ONE (05:20)
[2021-08-17] MEDS ORDERED: LAMO200T3 PO (06:37)
[2021-08-17] MEDS ORDERED: AMLO1TAB25 PO (06:37)
[2021-08-17] MEDS ORDERED: LEVO50TA5 PO (06:37)
[2021-08-17] MEDS ORDERED: TORS20TA2 PO (06:40)
[2021-08-17] MEDS ORDERED: LITH150C PO (06:40)
[2021-08-17] MEDS ORDERED: HOME MED LIST COMPLETE! XX SCH (06:45)
[2021-08-17] MEDS ORDERED: cefTRIAXone SOD 1 GM in D5W MINI-BAG PLUS 50 ML IV ONE (07:00)
[2021-08-17] MEDS ORDERED: AZITHROMYCIN 250MG TABLET PO ONE (07:00)
[2021-08-17] MEDS: NS 1,000 ML IV SCH ×2 (07:58→20:06)
[2021-08-17] MEDS: MAGNESIUM OXIDE 400MG TAB (MAG-OX) PO SCH (09:11)
[2021-08-17] MEDS: lamoTRIgine 100MG TAB PO SCH (09:11)
[2021-08-17] MEDS: HEPARIN SOD (PORCINE) 5000UNITS/ML 1ML VIAL/SYRINGE SQ SCH ×2 (09:12→20:06)
[2021-08-17] MEDS: ADDERALL 5 MG TAB PO SCH (09:12)
[2021-08-17] MEDS: LITHIUM CARBONATE 150 MG CAP PO SCH (09:12)
[2021-08-17 09:45] LABS: LITHIUM LEVEL 0.82 MEQ/L (0.60-1.20)
[2021-08-17 11:27] LABS: INR 0.99; PROTHROMBIN TIME 13.5 SECONDS (12.7-14.5)
[2021-08-17 11:28] LABS: PARTIAL THROMBOPLASTIN TIME 36.1 SECONDS (25.9-37.0)
[2021-08-17 13:02] VITALS: BP 161/61
[2021-08-17] MEDS: LURASIDONE 20 MG TAB (LATUDA) PO SCH (17:16)
[2021-08-17 18:29] VITALS: BP 161/63
[2021-08-17] MEDS: LITHIUM CARBONATE 300 MG CAP PO SCH (20:13)
[2021-08-17 20:30] VITALS: BP 150/60
[2021-08-17] MEDS ORDERED: LITHIUM CARBONATE 150 MG CAP PO SCH (21:00)
[2021-08-18] MEDS ORDERED: ACETAMINOPHEN TAB 650MG DOSE (2X325MG) PO PRN (00:40)
[2021-08-18 01:59] LABS: VENOUS BASE EXCESS 0.8 (-2.0-2.0); VENOUS HCO3 26.9 MEQ/L (23.0-27.0); VENOUS O2 SATURATION 60.2 % (60.0-80.0); VENOUS PH 7.357 UNITS (7.330-7.430); VENOUS STANDARD HCO3 24.4 MEQ/L; VENOUS TOTAL CO2 28.4 MEQ/L (24.0-28.0)
[2021-08-18 02:05] LABS: HEMATOCRIT 36.2 % (36.0-47.0); HEMOGLOBIN 11.4 g/dl (12.0-15.5); MEAN CORPUSCULAR HEMOGLOBIN 30.4 pg (27.0-33.0); MEAN CORPUSCULAR HGB CONC 31.5 g/dl (32.0-36.5); MEAN CORPUSCULAR VOLUME 96.5 fl (80.0-96.0); PLATELET COUNT, AUTOMATED 308 10^3/uL (150-450); RED BLOOD COUNT 3.75 10^6/uL (4.00-5.40); WHITE BLOOD COUNT 11.6 10^3/uL (4.0-10.0)
[2021-08-18 02:30] LABS: ALBUMIN 3.1 GM/DL (3.2-5.2); BILIRUBIN,TOTAL 0.2 MG/DL (0.2-1.0); CALCIUM LEVEL 8.5 MG/DL (8.8-10.2); CREATININE FOR GFR 1.12 MG/DL (0.55-1.30); LITHIUM LEVEL 0.74 MEQ/L (0.60-1.20); MAGNESIUM LEVEL 2.7 MG/DL (1.8-2.4); TOTAL PROTEIN 6.2 GM/DL (6.4-8.2)
[2021-08-18] MEDS ORDERED: RAMELTEON 8 MG TAB (ROZEREM) PO PRN (03:00)
[2021-08-18] MEDS ORDERED: diphenhydrAMINE 25MG CAP PO ONE (04:00)
[2021-08-18 06:00] VITALS: BP 139/62
[2021-08-18] MEDS ORDERED: LEVOTHYROXINE 50MCG TABLET (0.05MG) PO SCH (06:00)
[2021-08-18 06:13] LABS: HEMATOCRIT 34.7 % (36.0-47.0); HEMOGLOBIN 10.9 g/dl (12.0-15.5); MEAN CORPUSCULAR HEMOGLOBIN 30.3 pg (27.0-33.0); MEAN CORPUSCULAR HGB CONC 31.4 g/dl (32.0-36.5); MEAN CORPUSCULAR VOLUME 96.4 fl (80.0-96.0); PLATELET COUNT, AUTOMATED 287 10^3/uL (150-450); WHITE BLOOD COUNT 11.5 10^3/uL (4.0-10.0)
[2021-08-18 06:35] LABS: ALBUMIN 2.9 GM/DL (3.2-5.2); BILIRUBIN,TOTAL 0.3 MG/DL (0.2-1.0); CALCIUM LEVEL 8.7 MG/DL (8.8-10.2); CREATININE FOR GFR 1.03 MG/DL (0.55-1.30); POTASSIUM SERUM 3.8 MEQ/L (3.5-5.1); TOTAL PROTEIN 6.5 GM/DL (6.4-8.2)
[2021-08-18 08:00] VITALS: BP 160/63
[2021-08-18] MEDS: ADDERALL 5 MG TAB PO SCH (09:56)
[2021-08-18] MEDS: LITHIUM CARBONATE 150 MG CAP PO SCH (09:57)
[2021-08-18] MEDS: lamoTRIgine 100MG TAB PO SCH (09:57)
[2021-08-18] MEDS: MAGNESIUM OXIDE 400MG TAB (MAG-OX) PO SCH (09:57)
[2021-08-18] MEDS: HEPARIN SOD (PORCINE) 5000UNITS/ML 1ML VIAL/SYRINGE SQ SCH ×2 (09:58→19:57)
[2021-08-18 14:40] VITALS: BP 128/67
[2021-08-18 18:00] VITALS: BP 148/86
[2021-08-18] MEDS: LURASIDONE 20 MG TAB (LATUDA) PO SCH (18:03)
[2021-08-18] MEDS: LITHIUM CARBONATE 300 MG CAP PO SCH (19:56)
[2021-08-19] MEDS ORDERED: ONDANSETRON 4MG/2ML VIAL IV PRN (00:20)
[2021-08-19 05:27] VITALS: BP 131/66
[2021-08-19] MEDS: LEVOTHYROXINE 25MCG TABLET (0.025MG) PO SCH (05:38)
[2021-08-19 06:20] LABS: HEMATOCRIT 38.8 % (36.0-47.0); HEMOGLOBIN 12.1 g/dl (12.0-15.5); MEAN CORPUSCULAR HEMOGLOBIN 30.2 pg (27.0-33.0); MEAN CORPUSCULAR HGB CONC 31.2 g/dl (32.0-36.5); MEAN CORPUSCULAR VOLUME 96.8 fl (80.0-96.0); PLATELET COUNT, AUTOMATED 343 10^3/uL (150-450); RED BLOOD COUNT 4.01 10^6/uL (4.00-5.40); WHITE BLOOD COUNT 17.5 10^3/uL (4.0-10.0)
[2021-08-19 06:53] LABS: BILIRUBIN,TOTAL 0.4 MG/DL (0.2-1.0); CREATININE FOR GFR 1.26 MG/DL (0.55-1.30); GLOMERULAR FILTRATION RATE 43.6 (>39); POTASSIUM SERUM 4.3 MEQ/L (3.5-5.1); TOTAL PROTEIN 7.1 GM/DL (6.4-8.2)
[2021-08-19] MEDS: MAGNESIUM OXIDE 400MG TAB (MAG-OX) PO SCH (09:00)
[2021-08-19] MEDS: lamoTRIgine 100MG TAB PO SCH (09:42)
[2021-08-19] MEDS: HEPARIN SOD (PORCINE) 5000UNITS/ML 1ML VIAL/SYRINGE SQ SCH ×2 (09:44→21:00)
[2021-08-19] MEDS: ADDERALL 5 MG TAB PO SCH (09:44)
[2021-08-19] MEDS: LITHIUM CARBONATE 150 MG CAP PO SCH (09:47)
[2021-08-19 13:11] LABS: HEMATOCRIT 35.1 % (36.0-47.0); HEMOGLOBIN 11.2 g/dl (12.0-15.5); MEAN CORPUSCULAR HEMOGLOBIN 30.5 pg (27.0-33.0); MEAN CORPUSCULAR HGB CONC 31.9 g/dl (32.0-36.5); MEAN CORPUSCULAR VOLUME 95.6 fl (80.0-96.0); PLATELET COUNT, AUTOMATED 337 10^3/uL (150-450); RED BLOOD COUNT 3.67 10^6/uL (4.00-5.40); WHITE BLOOD COUNT 17.8 10^3/uL (4.0-10.0)
[2021-08-19 13:38] LABS: ALBUMIN 2.9 GM/DL (3.2-5.2); BILIRUBIN,TOTAL 0.4 MG/DL (0.2-1.0); CALCIUM LEVEL 8.6 MG/DL (8.8-10.2); CREATININE FOR GFR 1.18 MG/DL (0.55-1.30); POTASSIUM SERUM 4.2 MEQ/L (3.5-5.1); TOTAL PROTEIN 6.3 GM/DL (6.4-8.2)
[2021-08-19 13:43] LABS: ABG BASE EXCESS -3.3 (-2.0-2.0); ABG HCO3 20.3 MEQ/L (22.0-26.0); ABG O2 SATURATION 96.6 % (95.0-99.0); ABG PARTIAL PRESSURE CO2 31.6 mmHg (35.0-45.0); ABG PARTIAL PRESSURE O2 77.7 mmHg (75.0-100.0); ABG STANDARD HCO3 21.7 MEQ/L (22.0-26.0); ABG TOTAL CO2 21.2 MEQ/L (23.0-31.0); ABG pH (ARTERIAL) 7.425 UNITS (7.350-7.450)
[2021-08-19 14:00] VITALS: BP 123/56
[2021-08-19 14:10] LABS: CK-MB VALUE MASS < 1.0 NG/ML (<3.6); CPK CREATINE PHOSPHOKINASE 57 U/L (26-192); MB/CK RELATIVE INDEX 1.75 (< OR =4)
[2021-08-19] MEDS ORDERED: cefTRIAXone SOD 1 GM in D5W MINI-BAG PLUS 50 ML IV SCH (15:00)
[2021-08-19] MEDS: LURASIDONE 20 MG TAB (LATUDA) PO SCH (17:13)
[2021-08-19 18:48] VITALS: BP 122/54
[2021-08-19] MEDS: LITHIUM CARBONATE 300 MG CAP PO SCH (21:00)
[2021-08-19 21:05] VITALS: BP 121/54
[2021-08-20] MEDS: LEVOTHYROXINE 25MCG TABLET (0.025MG) PO SCH (05:23)
[2021-08-20 05:29] VITALS: BP 120/59
[2021-08-20 07:01] LABS: HEMOGLOBIN 9.9 g/dl (12.0-15.5); MEAN CORPUSCULAR HEMOGLOBIN 30.1 pg (27.0-33.0); MEAN CORPUSCULAR HGB CONC 30.9 g/dl (32.0-36.5); MEAN CORPUSCULAR VOLUME 97.3 fl (80.0-96.0); PLATELET COUNT, AUTOMATED 289 10^3/uL (150-450); RED BLOOD COUNT 3.29 10^6/uL (4.00-5.40); WHITE BLOOD COUNT 12.6 10^3/uL (4.0-10.0)
[2021-08-20 07:32] LABS: ALBUMIN 2.5 GM/DL (3.2-5.2); BILIRUBIN,TOTAL 0.3 MG/DL (0.2-1.0); CALCIUM LEVEL 8.1 MG/DL (8.8-10.2); CREATININE FOR GFR 1.23 MG/DL (0.55-1.30); GLOMERULAR FILTRATION RATE 44.8 (>39); POTASSIUM SERUM 4.5 MEQ/L (3.5-5.1); TOTAL PROTEIN 5.5 GM/DL (6.4-8.2)
[2021-08-20] MEDS: LITHIUM CARBONATE 150 MG CAP PO SCH (09:39)
[2021-08-20] MEDS: lamoTRIgine 100MG TAB PO SCH (09:39)
[2021-08-20] MEDS: HEPARIN SOD (PORCINE) 5000UNITS/ML 1ML VIAL/SYRINGE SQ SCH ×2 (09:40→20:26)
[2021-08-20] MEDS: ADDERALL 5 MG TAB PO SCH (09:43)
[2021-08-20 10:44] LABS: MAGNESIUM LEVEL 2.6 MG/DL (1.8-2.4)
[2021-08-20 14:00] VITALS: BP 123/57
[2021-08-20] MEDS: CEFDINIR 300 MG CAP (OMNICEF) PO SCH ×2 (14:25→20:25)
[2021-08-20] MEDS: LURASIDONE 20 MG TAB (LATUDA) PO SCH (17:15)
[2021-08-20] MEDS: LITHIUM CARBONATE 300 MG CAP PO SCH (20:25)
[2021-08-21 04:42] VITALS: BP 120/55
[2021-08-21] MEDS: LEVOTHYROXINE 25MCG TABLET (0.025MG) PO SCH (05:26)
[2021-08-21 06:51] LABS: HEMATOCRIT 32.8 % (36.0-47.0); HEMOGLOBIN 10.3 g/dl (12.0-15.5); MEAN CORPUSCULAR HEMOGLOBIN 30.5 pg (27.0-33.0); MEAN CORPUSCULAR HGB CONC 31.4 g/dl (32.0-36.5); PLATELET COUNT, AUTOMATED 326 10^3/uL (150-450); RED BLOOD COUNT 3.38 10^6/uL (4.00-5.40); WHITE BLOOD COUNT 9.5 10^3/uL (4.0-10.0)
[2021-08-21 07:16] LABS: CALCIUM LEVEL 8.5 MG/DL (8.8-10.2); CREATININE FOR GFR 1.1 MG/DL (0.55-1.30); MAGNESIUM LEVEL 2.5 MG/DL (1.8-2.4); POTASSIUM SERUM 4.2 MEQ/L (3.5-5.1)
[2021-08-21] MEDS: lamoTRIgine 100MG TAB PO SCH (09:54)
[2021-08-21] MEDS: LITHIUM CARBONATE 150 MG CAP PO SCH (09:54)
[2021-08-21] MEDS: HEPARIN SOD (PORCINE) 5000UNITS/ML 1ML VIAL/SYRINGE SQ SCH ×2 (09:55→19:52)
[2021-08-21] MEDS: ADDERALL 5 MG TAB PO SCH (09:55)
[2021-08-21] MEDS: CEFDINIR 300 MG CAP (OMNICEF) PO SCH ×2 (09:59→19:51)
[2021-08-21] MEDS: LURASIDONE 20 MG TAB (LATUDA) PO SCH (17:43)
[2021-08-21] MEDS: LITHIUM CARBONATE 300 MG CAP PO SCH (19:58)
[2021-08-22] MEDS: LEVOTHYROXINE 25MCG TABLET (0.025MG) PO SCH (05:43)
[2021-08-22 06:00] VITALS: BP 143/64
[2021-08-22 10:51] VITALS: BP 143/63
[2021-08-22] MEDS: lamoTRIgine 100MG TAB PO SCH (10:53)
[2021-08-22] MEDS: HEPARIN SOD (PORCINE) 5000UNITS/ML 1ML VIAL/SYRINGE SQ SCH ×2 (10:53→20:16)
[2021-08-22] MEDS: LITHIUM CARBONATE 150 MG CAP PO SCH (10:54)
[2021-08-22] MEDS: CEFDINIR 300 MG CAP (OMNICEF) PO SCH ×2 (10:54→20:16)
[2021-08-22] MEDS: ADDERALL 5 MG TAB PO SCH (10:54)
[2021-08-22 12:10] LABS: CALCIUM LEVEL 9.3 MG/DL (8.8-10.2); CREATININE FOR GFR 1.16 MG/DL (0.55-1.30); POTASSIUM SERUM 3.9 MEQ/L (3.5-5.1)
[2021-08-22] MEDS: LURASIDONE 20 MG TAB (LATUDA) PO SCH (19:00)
[2021-08-22] MEDS: LITHIUM CARBONATE 300 MG CAP PO SCH (20:16)
[2021-08-23 04:51] VITALS: BP 134/61
[2021-08-23] MEDS: LEVOTHYROXINE 25MCG TABLET (0.025MG) PO SCH (05:22)
[2021-08-23] MEDS: LITHIUM CARBONATE 150 MG CAP PO SCH (07:53)
[2021-08-23] MEDS: CEFDINIR 300 MG CAP (OMNICEF) PO SCH ×2 (07:53→20:56)
[2021-08-23] MEDS: lamoTRIgine 100MG TAB PO SCH (07:53)
[2021-08-23] MEDS: ADDERALL 5 MG TAB PO SCH (07:53)
[2021-08-23] MEDS: HEPARIN SOD (PORCINE) 5000UNITS/ML 1ML VIAL/SYRINGE SQ SCH ×2 (07:54→20:57)
[2021-08-23 08:06] LABS: CALCIUM LEVEL 9.1 MG/DL (8.8-10.2); CREATININE FOR GFR 1.12 MG/DL (0.55-1.30); POTASSIUM SERUM 4.4 MEQ/L (3.5-5.1)
[2021-08-23] MEDS: NS 0.45% 1,000 ML IV SCH ×2 (11:15→22:10)
[2021-08-23 14:00] VITALS: BP 135/62
[2021-08-23] MEDS: LURASIDONE 20 MG TAB (LATUDA) PO SCH (18:12)
[2021-08-23] MEDS: LITHIUM CARBONATE 300 MG CAP PO SCH (20:56)
[2021-08-24] MEDS: LEVOTHYROXINE 25MCG TABLET (0.025MG) PO SCH (05:16)
[2021-08-24 06:00] VITALS: BP 140/66
[2021-08-24 07:29] LABS: BLOOD UREA NITROGEN 10 MG/DL (7-18); CALCIUM LEVEL 7.2 MG/DL (8.8-10.2); CARBON DIOXIDE LEVEL 21 MEQ/L (21-32); CHLORIDE LEVEL 113 MEQ/L (98-107); CREATININE FOR GFR 0.81 MG/DL (0.55-1.30); GLOMERULAR FILTRATION RATE > 60.0 (>39); GLUCOSE, FASTING 74 MG/DL (70-100); POTASSIUM SERUM 3.7 MEQ/L (3.5-5.1); SODIUM LEVEL 139 MEQ/L (136-145)
[2021-08-24] MEDS: NS 0.45% 1,000 ML IV SCH (08:06)
[2021-08-24] MEDS: ADDERALL 5 MG TAB PO SCH (08:06)
[2021-08-24] MEDS: CEFDINIR 300 MG CAP (OMNICEF) PO SCH ×2 (08:06→21:00)
[2021-08-24] MEDS: LITHIUM CARBONATE 150 MG CAP PO SCH (08:07)
[2021-08-24] MEDS: lamoTRIgine 100MG TAB PO SCH (08:07)
[2021-08-24] MEDS: HEPARIN SOD (PORCINE) 5000UNITS/ML 1ML VIAL/SYRINGE SQ SCH ×2 (08:07→21:03)
[2021-08-24] MEDS: LURASIDONE 20 MG TAB (LATUDA) PO SCH (17:00)
[2021-08-24] MEDS: LITHIUM CARBONATE 300 MG CAP PO SCH (21:03)
[2021-08-25 05:48] VITALS: BP 112/57
[2021-08-25] MEDS: LEVOTHYROXINE 25MCG TABLET (0.025MG) PO SCH (05:49)
[2021-08-25] MEDS: lamoTRIgine 100MG TAB PO SCH (10:30)
[2021-08-25] MEDS: ADDERALL 5 MG TAB PO SCH (10:30)
[2021-08-25] MEDS: LITHIUM CARBONATE 150 MG CAP PO SCH (10:31)
[2021-08-25] MEDS: HEPARIN SOD (PORCINE) 5000UNITS/ML 1ML VIAL/SYRINGE SQ SCH ×2 (10:35→20:24)
[2021-08-25] MEDS: LURASIDONE 20 MG TAB (LATUDA) PO SCH (18:59)
[2021-08-25] MEDS: LITHIUM CARBONATE 300 MG CAP PO SCH (20:24)
[2021-08-26 04:28] VITALS: BP 133/59
[2021-08-26] MEDS: LEVOTHYROXINE 25MCG TABLET (0.025MG) PO SCH (05:46)
[2021-08-26 08:07] LABS: BASO # 0.1 10^3/uL (0.0-0.2); BASO % 0.8 % (0.0-1.0); EOS # 0.4 10^3/uL (0.0-0.5); EOS % 4.3 % (0.0-3.0); HEMATOCRIT 34.9 % (36.0-47.0); HEMOGLOBIN 10.9 g/dl (12.0-15.5); MEAN CORPUSCULAR HEMOGLOBIN 29.9 pg (27.0-33.0); MEAN CORPUSCULAR HGB CONC 31.2 g/dl (32.0-36.5); MEAN CORPUSCULAR VOLUME 95.9 fl (80.0-96.0); MONO # 0.9 10^3/uL (0.0-0.8); MONO % 9.2 % (2.0-8.0); NEUTROPHILS # 5.4 10^3/uL (1.5-8.5); NEUTROPHILS % 55.2 % (36.0-66.0); PLATELET COUNT, AUTOMATED 431 10^3/uL (150-450); RED BLOOD COUNT 3.64 10^6/uL (4.00-5.40); WHITE BLOOD COUNT 9.8 10^3/uL (4.0-10.0)
[2021-08-26 08:33] LABS: CALCIUM LEVEL 9.3 MG/DL (8.8-10.2); CREATININE FOR GFR 1.11 MG/DL (0.55-1.30); GLOMERULAR FILTRATION RATE 50.5 (>39); MAGNESIUM LEVEL 2.5 MG/DL (1.8-2.4); POTASSIUM SERUM 4.4 MEQ/L (3.5-5.1)
[2021-08-26] MEDS: HEPARIN SOD (PORCINE) 5000UNITS/ML 1ML VIAL/SYRINGE SQ SCH ×2 (09:47→20:33)
[2021-08-26] MEDS: ADDERALL 5 MG TAB PO SCH (09:48)
[2021-08-26] MEDS: LITHIUM CARBONATE 150 MG CAP PO SCH (09:48)
[2021-08-26] MEDS: lamoTRIgine 100MG TAB PO SCH (09:48)
[2021-08-26] MEDS ORDERED: LEVO25TA5 PO (11:14)
[2021-08-26] MEDS: LURASIDONE 20 MG TAB (LATUDA) PO SCH (18:25)
[2021-08-26] MEDS: LITHIUM CARBONATE 300 MG CAP PO SCH (20:33)
[2021-08-27] MEDS: LEVOTHYROXINE 25MCG TABLET (0.025MG) PO SCH (05:47)
[2021-08-27 06:00] VITALS: BP 134/55
[2021-08-27 06:22] LABS: BASO # 0.1 10^3/uL (0.0-0.2); BASO % 0.8 % (0.0-1.0); EOS # 0.4 10^3/uL (0.0-0.5); HEMATOCRIT 34.3 % (36.0-47.0); HEMOGLOBIN 10.8 g/dl (12.0-15.5); LYMPH # 3.4 10^3/uL (1.5-5.0); LYMPH % 31.8 % (24.0-44.0); MEAN CORPUSCULAR HEMOGLOBIN 30.1 pg (27.0-33.0); MEAN CORPUSCULAR HGB CONC 31.5 g/dl (32.0-36.5); MEAN CORPUSCULAR VOLUME 95.5 fl (80.0-96.0); MONO # 1.1 10^3/uL (0.0-0.8); MONO % 10.2 % (2.0-8.0); NEUTROPHILS # 5.6 10^3/uL (1.5-8.5); NEUTROPHILS % 52.7 % (36.0-66.0); PLATELET COUNT, AUTOMATED 444 10^3/uL (150-450); RED BLOOD COUNT 3.59 10^6/uL (4.00-5.40); WHITE BLOOD COUNT 10.6 10^3/uL (4.0-10.0)
[2021-08-27 06:40] LABS: CALCIUM LEVEL 8.9 MG/DL (8.8-10.2); CREATININE FOR GFR 1.14 MG/DL (0.55-1.30); GLOMERULAR FILTRATION RATE 48.9 (>39); MAGNESIUM LEVEL 2.4 MG/DL (1.8-2.4); POTASSIUM SERUM 3.8 MEQ/L (3.5-5.1)
[2021-08-27 08:00] VITALS: BP 134/55
[2021-08-27 08:24] VITALS: BP 131/57
[2021-08-27] MEDS: lamoTRIgine 100MG TAB PO SCH (08:25)
[2021-08-27] MEDS: HEPARIN SOD (PORCINE) 5000UNITS/ML 1ML VIAL/SYRINGE SQ SCH (08:25)
[2021-08-27] MEDS: ADDERALL 5 MG TAB PO SCH (08:36)
[2021-08-27] MEDS: LITHIUM CARBONATE 150 MG CAP PO SCH (08:37)
== END 2021-08-27 13:50 | disposition home health service (06) | DRG 312 ==
LOC: M ED 03:34 → EDBD 03:34 → M ED INP 07:02 → M MSPAV 13:03
PROVIDERS: ADMIT Internal Medicine; ATTEND Internal Medicine
DX: R55 Syncope and collapse (principal); J18.9 Pneumonia, unspecified organism; I10 Essential (primary) hypertension; F31.9 Bipolar disorder, unspecified; E78.5 Hyperlipidemia, unspecified; F32.A Depression, unspecified; R44.1 Visual hallucinations; R29.6 Repeated falls; E03.9 Hypothyroidism, unspecified; Z85.3 Personal history of malignant neoplasm of breast; Z92.21 Personal history of antineoplastic chemotherapy; Z92.3 Personal history of irradiation; G25.1 Drug-induced tremor; F90.9 Attention-deficit hyperactivity disorder, unspecified type; Z79.899 Other long term (current) drug therapy; Z88.2 Allergy status to sulfonamides; Z91.030 Bee allergy status; Z88.8 Allergy status to other drugs, medicaments and biological substances

== ENCOUNTER → 2021-09-23 | Outpatient (CLI) | payer MEDICARE, OTHER ==
[~2021-09-23] MED LIST changes: +AMLO1TAB25 PO; +LAMO200T3 PO; +LEVO25TA5 PO; +TORS20TA2 PO
[2021-09-23 16:20] LABS: BASO # 0.1 10^3/uL (0.0-0.2); BASO % 0.7 % (0.0-1.0); EOS # 0.2 10^3/uL (0.0-0.5); EOS % 1.4 % (0.0-3.0); HEMATOCRIT 36.9 % (36.0-47.0); HEMOGLOBIN 11.6 g/dl (12.0-15.5); LYMPH # 2.9 10^3/uL (1.5-5.0); LYMPH % 27.5 % (24.0-44.0); MEAN CORPUSCULAR HEMOGLOBIN 30.4 pg (27.0-33.0); MEAN CORPUSCULAR HGB CONC 31.4 g/dl (32.0-36.5); MEAN CORPUSCULAR VOLUME 96.9 fl (80.0-96.0); MONO # 0.8 10^3/uL (0.0-0.8); MONO % 7.6 % (2.0-8.0); NEUTROPHILS # 6.7 10^3/uL (1.5-8.5); NEUTROPHILS % 62.5 % (36.0-66.0); PLATELET COUNT, AUTOMATED 329 10^3/uL (150-450); RED BLOOD COUNT 3.81 10^6/uL (4.00-5.40); WHITE BLOOD COUNT 10.7 10^3/uL (4.0-10.0)
[2021-09-23 16:59] LABS: ALBUMIN 3.8 GM/DL (3.2-5.2); BILIRUBIN,TOTAL 0.3 MG/DL (0.2-1.0); CALCIUM LEVEL 10.1 MG/DL (8.8-10.2); CREATININE FOR GFR 1.2 MG/DL (0.55-1.30); FREE T4 0.77 NG/DL (0.76-1.46); POTASSIUM SERUM 4.7 MEQ/L (3.5-5.1); THYROID STIMULATING HORMONE 1.28 uIU/ML (0.358-3.740); TOTAL PROTEIN 7.2 GM/DL (6.4-8.2)
== END ==
LOC: M LAB 14:26
PROVIDERS: ATTEND Physician Assistant
DX: E03.9 Hypothyroidism, unspecified (principal)

== ENCOUNTER → 2021-09-23 | Outpatient (CLI) | payer MEDICARE, OTHER | LOC: M LAB 14:24 | PROVIDERS: ATTEND Nurse Practitioner Psychiatric/Mental Health | DX: Z51.81 Encounter for therapeutic drug level monitoring (principal); Z79.899 Other long term (current) drug therapy ==

== ENCOUNTER → 2021-10-17 | Outpatient (CLI) | payer MEDICARE, OTHER ==
[2021-10-17 12:13] LABS: ALBUMIN 3.7 GM/DL (3.2-5.2); CALCIUM LEVEL 9.8 MG/DL (8.8-10.2); CREATININE FOR GFR 1.41 MG/DL (0.55-1.30); GLOMERULAR FILTRATION RATE 38.2 (>32); LITHIUM LEVEL 0.84 MEQ/L (0.60-1.20); PHOSPHORUS LEVEL 3.7 MG/DL (2.5-4.9); POTASSIUM SERUM 4.3 MEQ/L (3.5-5.1)
== END ==
LOC: M LAB 10:42
PROVIDERS: ATTEND Nurse Practitioner Psychiatric/Mental Health
DX: F31.9 Bipolar disorder, unspecified (principal)

== ENCOUNTER → 2021-10-18 | Outpatient (REF) | payer MEDICARE, OTHER ==
[2021-10-18 09:23] LABS: APPEARANCE, URINE CLEAR (CLEAR); BACTERIA, URINE AUTO NEGATIVE (NEGATIVE); BILIRUBIN, URINE AUTO NEGATIVE (NEGATIVE); BLOOD, URINE BLOOD NEGATIVE (NEGATIVE); COLOR, URINE YELLOW (YELLOW); GLUCOSE, URINE (UA) AUTO NEGATIVE (NEGATIVE); KETONE, URINE AUTO NEGATIVE (NEGATIVE); LEUKOCYTE ESTERASE, URINE AUTO TRACE (NEGATIVE); NITRITE, URINE AUTO NEGATIVE (NEGATIVE); PROTEIN, URINE AUTO NEGATIVE (NEGATIVE); RBC, URINE AUTO 0 /HPF (0-3); SPECIFIC GRAVITY URINE AUTO 1.005 (1.002-1.035); SQUAMOUS EPITHELIAL CELL UR AU 0 /HPF (0-6); UROBILINOGEN, URINE AUTO 0.2 mg/dL (0.0-2.0); WBC, URINE AUTO 1 /HPF (0-3)
== END ==
LOC: M LAB REF 07:45
PROVIDERS: ATTEND Physician Assistant
DX: R30.0 Dysuria (principal)

== ENCOUNTER → 2021-10-25 | Outpatient (REF) | payer MEDICARE, OTHER | LOC: M LAB REF 03:00 | PROVIDERS: ATTEND Physician Assistant | DX: R30.0 Dysuria (principal) ==

== ENCOUNTER → 2021-11-19 | Outpatient (CLI) | payer MEDICARE, OTHER ==
[2021-11-19 11:23] LABS: HEMATOCRIT 38.3 % (36.0-47.0); HEMOGLOBIN 12.3 g/dl (12.0-15.5); MEAN CORPUSCULAR HEMOGLOBIN 31.4 pg (27.0-33.0); MEAN CORPUSCULAR HGB CONC 32.1 g/dl (32.0-36.5); MEAN CORPUSCULAR VOLUME 97.7 fl (80.0-96.0); PLATELET COUNT, AUTOMATED 339 10^3/uL (150-450); RED BLOOD COUNT 3.92 10^6/uL (4.00-5.40)
[2021-11-19 12:13] LABS: ALBUMIN 3.9 GM/DL (3.2-5.2); BILIRUBIN,TOTAL 0.5 MG/DL (0.2-1.0); CALCIUM LEVEL 9.1 MG/DL (8.8-10.2); CREATININE FOR GFR 1.45 MG/DL (0.55-1.30); MAGNESIUM LEVEL 2.7 MG/DL (1.8-2.4); POTASSIUM SERUM 3.8 MEQ/L (3.5-5.1); TOTAL PROTEIN 7.3 GM/DL (6.4-8.2)
== END ==
LOC: M LAB 10:48
PROVIDERS: ATTEND Physician Assistant
DX: I50.9 Heart failure, unspecified (principal); I47.2 Ventricular tachycardia; E78.2 Mixed hyperlipidemia

== ENCOUNTER → 2021-12-12 | Outpatient (REF) | payer MEDICARE, OTHER | LOC: M LAB REF 15:36 | PROVIDERS: ATTEND Family Medicine | DX: R41.82 Altered mental status, unspecified (principal) ==

== ENCOUNTER → 2021-12-16 | Outpatient (CLI) | payer MEDICARE, OTHER ==
[2021-12-16 16:02] LABS: BASO # 0.1 10^3/uL (0.0-0.2); BASO % 1.1 % (0.0-1.0); EOS # 0.2 10^3/uL (0.0-0.5); EOS % 1.8 % (0.0-3.0); HEMATOCRIT 40.2 % (36.0-47.0); HEMOGLOBIN 12.7 g/dl (12.0-15.5); LYMPH # 2.8 10^3/uL (1.5-5.0); LYMPH % 30.1 % (24.0-44.0); MEAN CORPUSCULAR HEMOGLOBIN 30.4 pg (27.0-33.0); MEAN CORPUSCULAR HGB CONC 31.6 g/dl (32.0-36.5); MEAN CORPUSCULAR VOLUME 96.2 fl (80.0-96.0); MONO % 10.3 % (2.0-8.0); NEUTROPHILS # 5.2 10^3/uL (1.5-8.5); NEUTROPHILS % 56.3 % (36.0-66.0); PLATELET COUNT, AUTOMATED 363 10^3/uL (150-450); RED BLOOD COUNT 4.18 10^6/uL (4.00-5.40); WHITE BLOOD COUNT 9.3 10^3/uL (4.0-10.0)
[2021-12-16 18:09] LABS: ALBUMIN 3.6 GM/DL (3.2-5.2); BILIRUBIN,TOTAL 0.4 MG/DL (0.2-1.0); CALCIUM LEVEL 9.4 MG/DL (8.8-10.2); CREATININE FOR GFR 1.2 MG/DL (0.55-1.30); FREE T4 0.73 NG/DL (0.76-1.46); THYROID STIMULATING HORMONE 2.52 uIU/ML (0.358-3.740); TOTAL PROTEIN 7.1 GM/DL (6.4-8.2)
[2021-12-16 18:34] LABS: POTASSIUM SERUM 4.6 MEQ/L (3.5-5.1); TOTAL 25(OH) VITAMIN D 52.5 NG/ML (30.0-100.0)
== END ==
LOC: M LAB 14:23
PROVIDERS: ATTEND Family Medicine
DX: R60.9 Edema, unspecified (principal); E03.9 Hypothyroidism, unspecified; E55.9 Vitamin D deficiency, unspecified; R41.82 Altered mental status, unspecified; Z79.899 Other long term (current) drug therapy

== ENCOUNTER → 2022-01-09 | Outpatient (CLI) | payer MEDICARE, OTHER | LOC: M WUC 14:01 | PROVIDERS: ATTEND Internal Medicine | DX: M43.04 Spondylolysis, thoracic region (principal) ==

== ENCOUNTER → 2022-03-10 | Outpatient (REF) | payer MEDICARE, OTHER ==
[~2022-03-10] MED LIST changes: +VRAY3CAP
[2022-03-11 10:07] LABS: CREATININE,RANDOM URINE 54.8 MG/DL; TOTAL PROTEIN,RANDOM URINE 11.4 MG/DL (0.0-12.0)
[2022-03-11 10:21] LABS: APPEARANCE, URINE MANUAL HAZY (CLEAR); BILIRUBIN, URINE MANUAL NEGATIVE (NEGATIVE); BLOOD URINE MANUAL NEGATIVE (NEGATIVE); COLOR, URINE MANUAL YELLOW (YELLOW); GLUCOSE, URINE (UA) MANUAL NEGATIVE (NEGATIVE); KETONE, URINE MANUAL NEGATIVE (NEGATIVE); LEUKOCYTE ESTERASE, URINE MAN POSITIVE (NEGATIVE); NITRITE, URINE MANUAL NEGATIVE (NEGATIVE); PROTEIN, URINE MANUAL 1+ mg/dL (NEGATIVE); UROBILINOGEN, URINE MANUAL NORMAL (NORMAL)
[2022-03-11 10:54] LABS: RBC, URINE 0-1 /hpf (0-3); SQUAMOUS EPITHELIAL CELL URINE SMALL AMOUNT /hpf (SMALL AMT)
[2022-03-11 10:55] LABS: AMORPHOUS SEDIMENT, URINE SMALL AMOUNT (NEGATIVE); BACTERIA, URINE SMALL AMOUNT; HYALINE CAST, URINE NONE SEEN /lpf (0-1); MUCUS, URINE SMALL AMOUNT (NEGATIVE)
== END ==
LOC: M LAB REF 08:44
PROVIDERS: ATTEND Nurse Practitioner
DX: N18.32 Chronic kidney disease, stage 3b (principal)

== ENCOUNTER → 2022-03-24 | Outpatient (REF) | payer MEDICARE, OTHER | LOC: M LAB REF 16:28 | PROVIDERS: ATTEND Internal Medicine | DX: N39.0 Urinary tract infection, site not specified (principal) ==

== ENCOUNTER → 2022-05-20 | Outpatient (REF) | payer MEDICARE, OTHER | LOC: M SFHCWAGY 17:04 | PROVIDERS: ATTEND Nurse Practitioner Family | DX: Z12.4 Encounter for screening for malignant neoplasm of cervix (principal) | CPT/HCPCS: 87624; G0123 ==

== ENCOUNTER → 2022-06-14 | Outpatient (CLI) | payer MEDICARE, OTHER ==
[2022-06-14 11:21] LABS: HEMATOCRIT 41.5 % (36.0-47.0); HEMOGLOBIN 12.7 g/dl (12.0-15.5); MEAN CORPUSCULAR HEMOGLOBIN 30.6 pg (27.0-33.0); MEAN CORPUSCULAR HGB CONC 30.6 g/dl (32.0-36.5); PLATELET COUNT, AUTOMATED 379 10^3/uL (150-450); RED BLOOD COUNT 4.15 10^6/uL (4.00-5.40); WHITE BLOOD COUNT 9.4 10^3/uL (4.0-10.0)
[2022-06-14 11:37] LABS: HEMOGLOBIN A1c 4.8 % (4.0-6.0)
[2022-06-14 11:39] LABS: MAGNESIUM LEVEL 2.6 MG/DL (1.8-2.4)
[2022-06-14 11:41] LABS: ALBUMIN 3.9 G/DL (3.2-5.2); BILIRUBIN,TOTAL 0.4 MG/DL (0.3-1.2); CALCIUM LEVEL 9.4 MG/DL (8.3-10.6); CHOLESTEROL RISK RATIO 2.7 (<5); CREATININE FOR GFR 1.22 MG/DL (0.55-1.30); GLOMERULAR FILTRATION RATE 45.1 (>32); HDL CHOLESTEROL 64.6 MG/DL (>40); LDL CHOLESTEROL 76.6 MG/DL (<100); POTASSIUM SERUM 3.7 MMOL/L (3.5-5.1); TOTAL PROTEIN 7.7 G/DL (5.7-8.2)
[2022-06-14 11:43] LABS: THYROID STIMULATING HORMONE 2.682 uIU/ML (0.55-4.78)
== END ==
LOC: M LAB 09:20
PROVIDERS: ATTEND Internal Medicine Cardiovascular Disease
DX: I47.20 Ventricular tachycardia, unspecified (principal); E03.9 Hypothyroidism, unspecified; E78.2 Mixed hyperlipidemia; I50.9 Heart failure, unspecified; I11.0 Hypertensive heart disease with heart failure; Z79.899 Other long term (current) drug therapy

== ENCOUNTER → 2022-06-22 | Outpatient (REF) | payer MEDICARE, OTHER | LOC: M LAB REF 12:13 | PROVIDERS: ATTEND Internal Medicine | DX: F31.32 Bipolar disorder, current episode depressed, moderate (principal); R25.1 Tremor, unspecified ==

== ENCOUNTER → 2022-06-24 | Outpatient (REF) | payer MEDICARE, OTHER | LOC: M LAB REF 16:15 | PROVIDERS: ATTEND Internal Medicine | DX: R35.1 Nocturia (principal); R35.0 Frequency of micturition ==

== ENCOUNTER 2022-07-01 11:09 | Emergency (ER) | payer MEDICARE, OTHER ==
[~2022-07-01] VITALS: Ht 154.9 cm; Wt 62.7 kg
[2022-07-01] MEDS ORDERED: BOOSTRIX/ADACEL VACCINE (DIPHTH/PERTUSS/ACELL/TETANUS) 0.5ML SYR IM ONE (12:40)
[2022-07-01 13:27] VITALS: BP 139/68
[2022-07-01 13:36] VITALS: O2SAT 99
== END 2022-07-01 13:51 | disposition home or self-care (01) ==
LOC: M ED 11:09
DX: S01.01XA Laceration without foreign body of scalp, initial encounter (principal); S60.512A Abrasion of left hand, initial encounter; W10.8XXA Fall (on) (from) other stairs and steps, initial encounter; C50.919 Malignant neoplasm of unspecified site of unspecified female breast; F31.9 Bipolar disorder, unspecified; E03.9 Hypothyroidism, unspecified; I10 Essential (primary) hypertension; Y92.22 Religious institution as the place of occurrence of the external cause; Z88.1 Allergy status to other antibiotic agents; Z88.2 Allergy status to sulfonamides; Z91.030 Bee allergy status; Z79.811 Long term (current) use of aromatase inhibitors; Z79.899 Other long term (current) drug therapy; Z23 Encounter for immunization

== ENCOUNTER → 2022-09-04 | Outpatient (REF) | payer MEDICARE, OTHER | LOC: M LAB REF 20:44 | PROVIDERS: ATTEND Nurse Practitioner Family | DX: R39.11 Hesitancy of micturition (principal) ==

== ENCOUNTER 2022-09-07 14:42 | Emergency (ER) | payer MEDICARE, OTHER ==
[~2022-09-07] VITALS: Ht 157.5 cm; Wt 60.4 kg
[2022-09-07 14:44] VITALS: BP 131/71
== END 2022-09-07 18:52 | disposition left against medical advice (07) ==
LOC: M ED 14:42
DX: Z53.21 Procedure and treatment not carried out due to patient leaving prior to being seen by health care provider (principal)

== ENCOUNTER → 2022-09-09 | Outpatient (REF) | payer MEDICARE, OTHER | LOC: M LAB REF 20:23 | PROVIDERS: ATTEND Nurse Practitioner Family | DX: R30.0 Dysuria (principal) ==

== ENCOUNTER → 2022-09-22 | Outpatient (REF) | payer MEDICARE, OTHER | LOC: M LAB REF 12:17 | PROVIDERS: ATTEND Nurse Practitioner Family | DX: N39.0 Urinary tract infection, site not specified (principal) ==

== ENCOUNTER → 2022-10-26 | Outpatient (CLI) | payer MEDICARE, OTHER ==
[2022-10-26 15:34] LABS: BASO # 0.1 10^3/uL (0.0-0.2); BASO % 0.9 % (0.0-1.0); EOS # 0.2 10^3/uL (0.0-0.5); EOS % 1.9 % (0.0-3.0); HEMATOCRIT 35.8 % (36.0-47.0); HEMOGLOBIN 11.2 g/dl (12.0-15.5); LYMPH % 33.3 % (24.0-44.0); MEAN CORPUSCULAR HEMOGLOBIN 31.3 pg (27.0-33.0); MEAN CORPUSCULAR HGB CONC 31.3 g/dl (32.0-36.5); MONO # 0.9 10^3/uL (0.0-0.8); MONO % 10.3 % (2.0-8.0); NEUTROPHILS # 4.8 10^3/uL (1.5-8.5); NEUTROPHILS % 53.4 % (36.0-66.0); PLATELET COUNT, AUTOMATED 333 10^3/uL (150-450); RED BLOOD COUNT 3.58 10^6/uL (4.00-5.40)
[2022-10-26 15:56] LABS: CALCIUM LEVEL 8.9 MG/DL (8.3-10.6); CREATININE FOR GFR 1.07 MG/DL (0.55-1.30); GLOMERULAR FILTRATION RATE 52.4 (>32); POTASSIUM SERUM 3.9 MMOL/L (3.5-5.1)
== END ==
LOC: M LAB 14:57
PROVIDERS: ATTEND Internal Medicine Cardiovascular Disease
DX: I50.32 Chronic diastolic (congestive) heart failure (principal)

== ENCOUNTER → 2022-10-26 | Outpatient (REF) | payer MEDICARE, OTHER ==
[2022-10-28 13:09] LABS: SSA SJOGRENS A <0.2 AI (0.0-0.9); SSB SJOGRENS B <0.2 AI (0.0-0.9)
== END ==
LOC: M LAB REF 17:30
PROVIDERS: ATTEND Internal Medicine
DX: R68.2 Dry mouth, unspecified (principal); H04.123 Dry eye syndrome of bilateral lacrimal glands; I50.32 Chronic diastolic (congestive) heart failure

== ENCOUNTER → 2022-11-27 | Outpatient (REF) | payer MEDICARE, OTHER | LOC: M LAB REF 12:36 | PROVIDERS: ATTEND Internal Medicine | DX: R26.89 Other abnormalities of gait and mobility (principal) ==

== ENCOUNTER 2023-01-01 12:08 | Observation (INO) | payer MEDICARE, OTHER ==
[~2023-01-01] VITALS: Ht 157.5 cm; Wt 61.8 kg
[2023-01-01] MEDS ORDERED: ACETAMINOPHEN TAB 650MG DOSE (2X325MG) PO ONE (16:40)
[2023-01-01 17:06] LABS: BASO # 0.1 10^3/uL (0.0-0.2); BASO % 0.8 % (0.0-1.0); EOS # 0.2 10^3/uL (0.0-0.5); EOS % 1.7 % (0.0-3.0); HEMATOCRIT 38.2 % (36.0-47.0); HEMOGLOBIN 11.7 g/dl (12.0-15.5); LYMPH # 2.4 10^3/uL (1.5-5.0); LYMPH % 23.8 % (24.0-44.0); MEAN CORPUSCULAR HGB CONC 30.6 g/dl (32.0-36.5); MEAN CORPUSCULAR VOLUME 101.1 fl (80.0-96.0); MONO # 0.8 10^3/uL (0.0-0.8); MONO % 7.9 % (2.0-8.0); NEUTROPHILS # 6.7 10^3/uL (1.5-8.5); NEUTROPHILS % 65.4 % (36.0-66.0); PLATELET COUNT, AUTOMATED 329 10^3/uL (150-450); RED BLOOD COUNT 3.78 10^6/uL (4.00-5.40); WHITE BLOOD COUNT 10.3 10^3/uL (4.0-10.0)
[2023-01-01 17:36] LABS: ALBUMIN 3.8 G/DL (3.2-5.2); BILIRUBIN,TOTAL 0.3 MG/DL (0.3-1.2); CALCIUM LEVEL 9.6 MG/DL (8.3-10.6); CK-MB VALUE MASS 1.9 NG/ML (<3.6); CREATININE FOR GFR 1.01 MG/DL (0.55-1.30); MAGNESIUM LEVEL 2.6 MG/DL (1.8-2.4); POTASSIUM SERUM 4.4 MMOL/L (3.5-5.1); TOTAL PROTEIN 7.3 G/DL (5.7-8.2)
[2023-01-01 17:40] LABS: THYROID STIMULATING HORMONE 1.234 uIU/ML (0.55-4.78)
[2023-01-01 17:41] LABS: MB/CK RELATIVE INDEX 1.57 (< OR =4)
[2023-01-01 19:22] LABS: LITHIUM LEVEL 0.53 MMOL/L (1.0-1.20)
[2023-01-01] MEDS ORDERED: LURA20TA PO (19:41)
[2023-01-01] MEDS ORDERED: AMLO1TAB24 PO (19:41)
[2023-01-01] MEDS ORDERED: LEVO25TA5 PO (19:41)
[2023-01-01] MEDS ORDERED: HOME MED LIST COMPLETE! XX SCH (19:45)
[2023-01-01 20:41] LABS: RSV AMPLIFICATION NEGATIVE (NEGATIVE)
[2023-01-02] MEDS ORDERED: ONDANSETRON 4MG ORAL DISINTEGRATING TAB PO PRN (00:20)
[2023-01-02] MEDS ORDERED: NORCO, ANEXSIA 5/325MG TABLET (HYDROcodone/ACETAMINOPHEN) PO PRN (00:20)
[2023-01-02] MEDS: LITHIUM CARBONATE 150 MG CAP PO SCH ×3 (01:39→21:43)
[2023-01-02] MEDS: ACETAMINOPHEN TAB 650MG DOSE (2X325MG) PO PRN (03:59)
[2023-01-02] MEDS: LEVOTHYROXINE 25MCG TABLET (0.025MG) PO SCH (06:11)
[2023-01-02] MEDS: cefTRIAXone SOD 1 GM in D5W MINI-BAG PLUS 50 ML IV SCH (06:11)
[2023-01-02 06:16] LABS: CALCIUM LEVEL 9.5 MG/DL (8.3-10.6); CREATININE FOR GFR 0.99 MG/DL (0.55-1.30); GLOMERULAR FILTRATION RATE 57.3 (>32); POTASSIUM SERUM 3.9 MMOL/L (3.5-5.1)
[2023-01-02 07:37] LABS: BASO # 0.1 10^3/uL (0.0-0.2); BASO % 0.8 % (0.0-1.0); EOS # 0.2 10^3/uL (0.0-0.5); EOS % 2.8 % (0.0-3.0); HEMATOCRIT 38.4 % (36.0-47.0); HEMOGLOBIN 11.6 g/dl (12.0-15.5); LYMPH # 2.6 10^3/uL (1.5-5.0); LYMPH % 30.5 % (24.0-44.0); MEAN CORPUSCULAR HEMOGLOBIN 30.6 pg (27.0-33.0); MEAN CORPUSCULAR HGB CONC 30.2 g/dl (32.0-36.5); MEAN CORPUSCULAR VOLUME 101.3 fl (80.0-96.0); MONO # 0.8 10^3/uL (0.0-0.8); MONO % 9.5 % (2.0-8.0); NEUTROPHILS # 4.8 10^3/uL (1.5-8.5); NEUTROPHILS % 56.2 % (36.0-66.0); PLATELET COUNT, AUTOMATED 329 10^3/uL (150-450); RED BLOOD COUNT 3.79 10^6/uL (4.00-5.40); WHITE BLOOD COUNT 8.6 10^3/uL (4.0-10.0)
[2023-01-02] MEDS: lamoTRIgine 100MG TAB PO SCH (09:34)
[2023-01-02] MEDS: amLODIPine 5 MG TAB PO SCH (09:35)
[2023-01-02] MEDS: HEPARIN SOD (PORCINE) 5000UNITS/ML 1ML VIAL/SYRINGE SC SCH ×2 (09:37→21:43)
[2023-01-02] MEDS: ADDERALL 5 MG TAB PO SCH (10:56)
[2023-01-02 11:59] VITALS: BP 152/75; TEMP 98.6; O2SAT 99
[2023-01-02 14:57] VITALS: BP 160/76; TEMP 97.9; O2SAT 97
[2023-01-02] MEDS ORDERED: D5W/0.9% SODIUM CHLORIDE 1,000 ML IV SCH (17:45)
[2023-01-02 21:40] VITALS: BP 158/79; TEMP 97.5; O2SAT 95
[2023-01-02] MEDS: LURASIDONE 20 MG TAB (LATUDA) PO SCH (21:43)
[2023-01-03] MEDS: ACETAMINOPHEN TAB 650MG DOSE (2X325MG) PO PRN ×2 (03:50→23:40)
[2023-01-03 05:20] VITALS: BP 141/90; TEMP 98.8; O2SAT 95
[2023-01-03 05:49] LABS: BASO # 0.1 10^3/uL (0.0-0.2); BASO % 0.7 % (0.0-1.0); EOS # 0.2 10^3/uL (0.0-0.5); EOS % 2.2 % (0.0-3.0); HEMATOCRIT 36.8 % (36.0-47.0); HEMOGLOBIN 11.4 g/dl (12.0-15.5); LYMPH # 3.2 10^3/uL (1.5-5.0); LYMPH % 31.7 % (24.0-44.0); MONO % 10.1 % (2.0-8.0); NEUTROPHILS # 5.5 10^3/uL (1.5-8.5); NEUTROPHILS % 54.9 % (36.0-66.0); PLATELET COUNT, AUTOMATED 320 10^3/uL (150-450); RED BLOOD COUNT 3.68 10^6/uL (4.00-5.40); WHITE BLOOD COUNT 10.1 10^3/uL (4.0-10.0)
[2023-01-03] MEDS: LEVOTHYROXINE 25MCG TABLET (0.025MG) PO SCH (05:50)
[2023-01-03] MEDS: cefTRIAXone SOD 1 GM in D5W MINI-BAG PLUS 50 ML IV SCH (05:51)
[2023-01-03 06:16] LABS: CALCIUM LEVEL 9.3 MG/DL (8.3-10.6); CREATININE FOR GFR 1.02 MG/DL (0.55-1.30); GLOMERULAR FILTRATION RATE 55.4 (>32); MAGNESIUM LEVEL 2.4 MG/DL (1.8-2.4); POTASSIUM SERUM 3.8 MMOL/L (3.5-5.1)
[2023-01-03] MEDS: lamoTRIgine 100MG TAB PO SCH (08:33)
[2023-01-03] MEDS: amLODIPine 5 MG TAB PO SCH (08:34)
[2023-01-03] MEDS: ADDERALL 5 MG TAB PO SCH (08:36)
[2023-01-03] MEDS: HEPARIN SOD (PORCINE) 5000UNITS/ML 1ML VIAL/SYRINGE SC SCH ×2 (08:36→20:35)
[2023-01-03] MEDS: LITHIUM CARBONATE 150 MG CAP PO SCH ×2 (08:45→20:35)
[2023-01-03 14:38] VITALS: BP 134/78; TEMP 99.3; O2SAT 97
[2023-01-03] MEDS: VIIBRYD 40 MG PO SCH (17:42)
[2023-01-03] MEDS: CEFDINIR 300 MG CAP (OMNICEF) PO SCH (20:35)
[2023-01-03] MEDS: LURASIDONE 20 MG TAB (LATUDA) PO SCH (20:35)
[2023-01-03 21:20] VITALS: BP 141/82; TEMP 97.3; O2SAT 95
[2023-01-04 04:50] VITALS: BP 148/82; TEMP 97.5; O2SAT 97
[2023-01-04] MEDS: LEVOTHYROXINE 25MCG TABLET (0.025MG) PO SCH (05:22)
[2023-01-04 05:52] LABS: BASO # 0.1 10^3/uL (0.0-0.2); BASO % 0.6 % (0.0-1.0); EOS # 0.2 10^3/uL (0.0-0.5); EOS % 2.3 % (0.0-3.0); HEMATOCRIT 39.1 % (36.0-47.0); HEMOGLOBIN 12.2 g/dl (12.0-15.5); LYMPH # 2.9 10^3/uL (1.5-5.0); LYMPH % 28.2 % (24.0-44.0); MEAN CORPUSCULAR HEMOGLOBIN 31.1 pg (27.0-33.0); MEAN CORPUSCULAR HGB CONC 31.2 g/dl (32.0-36.5); MEAN CORPUSCULAR VOLUME 99.7 fl (80.0-96.0); MONO # 1.1 10^3/uL (0.0-0.8); MONO % 10.4 % (2.0-8.0); NEUTROPHILS # 5.9 10^3/uL (1.5-8.5); NEUTROPHILS % 58.3 % (36.0-66.0); PLATELET COUNT, AUTOMATED 342 10^3/uL (150-450); RED BLOOD COUNT 3.92 10^6/uL (4.00-5.40); WHITE BLOOD COUNT 10.1 10^3/uL (4.0-10.0)
[2023-01-04 06:11] LABS: CALCIUM LEVEL 9.4 MG/DL (8.3-10.6); CREATININE FOR GFR 1.06 MG/DL (0.55-1.30); MAGNESIUM LEVEL 2.4 MG/DL (1.8-2.4); POTASSIUM SERUM 3.6 MMOL/L (3.5-5.1)
[2023-01-04] MEDS ORDERED: TORSEMIDE 20 MG TAB PO PRN (09:00)
[2023-01-04] MEDS: lamoTRIgine 100MG TAB PO SCH (10:00)
[2023-01-04] MEDS: HEPARIN SOD (PORCINE) 5000UNITS/ML 1ML VIAL/SYRINGE SC SCH ×2 (10:00→21:02)
[2023-01-04] MEDS: ADDERALL 5 MG TAB PO SCH (10:00)
[2023-01-04] MEDS: CEFDINIR 300 MG CAP (OMNICEF) PO SCH ×2 (10:00→21:01)
[2023-01-04] MEDS: amLODIPine 5 MG TAB PO SCH (10:01)
[2023-01-04] MEDS: LITHIUM CARBONATE 150 MG CAP PO SCH ×2 (10:01→21:02)
[2023-01-04] MEDS: VIIBRYD 40 MG PO SCH (10:01)
[2023-01-04 14:00] VITALS: BP 162/84; TEMP 98.4; O2SAT 95
[2023-01-04 21:00] VITALS: BP 133/68; TEMP 99; O2SAT 98
[2023-01-04] MEDS: LURASIDONE 20 MG TAB (LATUDA) PO SCH (21:01)
[2023-01-04] MEDS: ACETAMINOPHEN TAB 650MG DOSE (2X325MG) PO PRN (21:02)
[2023-01-05] MEDS: LEVOTHYROXINE 25MCG TABLET (0.025MG) PO SCH (05:36)
[2023-01-05 05:39] VITALS: BP 133/69; TEMP 98.1; O2SAT 97
[2023-01-05 05:51] LABS: BASO # 0.1 10^3/uL (0.0-0.2); BASO % 0.9 % (0.0-1.0); EOS # 0.3 10^3/uL (0.0-0.5); EOS % 3.4 % (0.0-3.0); HEMATOCRIT 39.2 % (36.0-47.0); HEMOGLOBIN 12.2 g/dl (12.0-15.5); LYMPH # 2.8 10^3/uL (1.5-5.0); LYMPH % 31.1 % (24.0-44.0); MEAN CORPUSCULAR HEMOGLOBIN 31.3 pg (27.0-33.0); MEAN CORPUSCULAR HGB CONC 31.1 g/dl (32.0-36.5); MEAN CORPUSCULAR VOLUME 100.5 fl (80.0-96.0); MONO # 0.8 10^3/uL (0.0-0.8); MONO % 8.9 % (2.0-8.0); NEUTROPHILS # 5.1 10^3/uL (1.5-8.5); NEUTROPHILS % 55.5 % (36.0-66.0); PLATELET COUNT, AUTOMATED 309 10^3/uL (150-450); WHITE BLOOD COUNT 9.1 10^3/uL (4.0-10.0)
[2023-01-05 06:12] LABS: CALCIUM LEVEL 9.6 MG/DL (8.3-10.6); CREATININE FOR GFR 1.08 MG/DL (0.55-1.30); GLOMERULAR FILTRATION RATE 51.8 (>32); MAGNESIUM LEVEL 2.3 MG/DL (1.8-2.4); POTASSIUM SERUM 3.6 MMOL/L (3.5-5.1)
[2023-01-05 09:41] VITALS: BP 134/69
[2023-01-05] MEDS: lamoTRIgine 100MG TAB PO SCH (09:43)
[2023-01-05] MEDS: HEPARIN SOD (PORCINE) 5000UNITS/ML 1ML VIAL/SYRINGE SC SCH ×2 (09:43→19:48)
[2023-01-05] MEDS: ADDERALL 5 MG TAB PO SCH (09:44)
[2023-01-05] MEDS: LITHIUM CARBONATE 150 MG CAP PO SCH ×2 (09:44→19:49)
[2023-01-05] MEDS: CEFDINIR 300 MG CAP (OMNICEF) PO SCH ×2 (09:44→19:46)
[2023-01-05] MEDS: amLODIPine 5 MG TAB PO SCH (09:44)
[2023-01-05] MEDS: VIIBRYD 40 MG PO SCH (09:44)
[2023-01-05] MEDS ORDERED: POTASSIUM CHLORIDE 10% LIQ 20MEQ/15ML UDC PO ONE (10:00)
[2023-01-05 14:00] VITALS: BP 121/63; TEMP 96.8; O2SAT 97
[2023-01-05] MEDS: LURASIDONE 20 MG TAB (LATUDA) PO SCH (19:46)
[2023-01-05] MEDS: ACETAMINOPHEN TAB 650MG DOSE (2X325MG) PO PRN (19:47)
[2023-01-06 05:41] VITALS: BP 126/63; TEMP 97.5; O2SAT 100
[2023-01-06] MEDS: LEVOTHYROXINE 25MCG TABLET (0.025MG) PO SCH (05:42)
[2023-01-06] MEDS: CEFDINIR 300 MG CAP (OMNICEF) PO SCH ×2 (10:02→19:28)
[2023-01-06] MEDS: HEPARIN SOD (PORCINE) 5000UNITS/ML 1ML VIAL/SYRINGE SC SCH ×2 (10:02→19:29)
[2023-01-06] MEDS: LITHIUM CARBONATE 150 MG CAP PO SCH ×2 (10:03→19:28)
[2023-01-06] MEDS: ADDERALL 5 MG TAB PO SCH (10:03)
[2023-01-06] MEDS: VIIBRYD 40 MG PO SCH (10:03)
[2023-01-06] MEDS: lamoTRIgine 100MG TAB PO SCH (10:03)
[2023-01-06] MEDS: amLODIPine 5 MG TAB PO SCH (10:04)
[2023-01-06] MEDS: LURASIDONE 20 MG TAB (LATUDA) PO SCH (19:28)
[2023-01-07 05:25] VITALS: BP 132/73; TEMP 97; O2SAT 98
[2023-01-07] MEDS: LEVOTHYROXINE 25MCG TABLET (0.025MG) PO SCH (05:30)
[2023-01-07] MEDS: amLODIPine 5 MG TAB PO SCH (09:00)
[2023-01-07] MEDS: HEPARIN SOD (PORCINE) 5000UNITS/ML 1ML VIAL/SYRINGE SC SCH ×2 (09:36→21:00)
[2023-01-07] MEDS: LITHIUM CARBONATE 150 MG CAP PO SCH ×2 (09:36→21:00)
[2023-01-07] MEDS: lamoTRIgine 100MG TAB PO SCH (09:36)
[2023-01-07] MEDS: ADDERALL 5 MG TAB PO SCH (09:36)
[2023-01-07] MEDS: VIIBRYD 40 MG PO SCH (09:39)
[2023-01-07] MEDS: LURASIDONE 20 MG TAB (LATUDA) PO SCH (21:00)
[2023-01-08 04:10] VITALS: BP 141/80; TEMP 98.4; O2SAT 99
[2023-01-08] MEDS: LEVOTHYROXINE 25MCG TABLET (0.025MG) PO SCH (05:26)
[2023-01-08] MEDS: lamoTRIgine 100MG TAB PO SCH (09:22)
[2023-01-08] MEDS: ADDERALL 5 MG TAB PO SCH (09:22)
[2023-01-08] MEDS: LITHIUM CARBONATE 150 MG CAP PO SCH ×2 (09:22→21:43)
[2023-01-08] MEDS: amLODIPine 5 MG TAB PO SCH (09:23)
[2023-01-08] MEDS: VIIBRYD 40 MG PO SCH (09:23)
[2023-01-08] MEDS: HEPARIN SOD (PORCINE) 5000UNITS/ML 1ML VIAL/SYRINGE SC SCH ×2 (09:24→21:44)
[2023-01-08 20:38] VITALS: BP 160/88
[2023-01-08] MEDS: LURASIDONE 20 MG TAB (LATUDA) PO SCH (21:43)
[2023-01-09] MEDS: LEVOTHYROXINE 25MCG TABLET (0.025MG) PO SCH (05:25)
[2023-01-09 05:27] VITALS: BP 146/79; TEMP 98.2; O2SAT 97
[2023-01-09] MEDS: LITHIUM CARBONATE 150 MG CAP PO SCH ×2 (08:54→20:53)
[2023-01-09] MEDS: lamoTRIgine 100MG TAB PO SCH (08:54)
[2023-01-09] MEDS: VIIBRYD 40 MG PO SCH (08:55)
[2023-01-09] MEDS: HEPARIN SOD (PORCINE) 5000UNITS/ML 1ML VIAL/SYRINGE SC SCH ×2 (08:55→20:53)
[2023-01-09] MEDS: amLODIPine 5 MG TAB PO SCH (08:55)
[2023-01-09] MEDS: ADDERALL 5 MG TAB PO SCH (08:58)
[2023-01-09] MEDS: LURASIDONE 20 MG TAB (LATUDA) PO SCH (20:53)
[2023-01-10] MEDS: LEVOTHYROXINE 25MCG TABLET (0.025MG) PO SCH (05:26)
[2023-01-10 05:30] VITALS: BP 147/78; TEMP 98.6; O2SAT 98
[2023-01-10] MEDS: ADDERALL 5 MG TAB PO SCH (08:18)
[2023-01-10] MEDS: lamoTRIgine 100MG TAB PO SCH (08:18)
[2023-01-10] MEDS: VIIBRYD 40 MG PO SCH (08:19)
[2023-01-10] MEDS: amLODIPine 5 MG TAB PO SCH (08:19)
[2023-01-10] MEDS: LITHIUM CARBONATE 150 MG CAP PO SCH ×2 (08:19→21:46)
[2023-01-10] MEDS: HEPARIN SOD (PORCINE) 5000UNITS/ML 1ML VIAL/SYRINGE SC SCH ×2 (08:23→21:45)
[2023-01-10] MEDS: LURASIDONE 20 MG TAB (LATUDA) PO SCH (21:45)
[2023-01-11] MEDS: LEVOTHYROXINE 25MCG TABLET (0.025MG) PO SCH (05:58)
[2023-01-11 06:00] VITALS: BP 148/72; TEMP 97.5; O2SAT 98
[2023-01-11] MEDS: lamoTRIgine 100MG TAB PO SCH (08:22)
[2023-01-11] MEDS: ADDERALL 5 MG TAB PO SCH (08:23)
[2023-01-11] MEDS: VIIBRYD 40 MG PO SCH (08:23)
[2023-01-11] MEDS: HEPARIN SOD (PORCINE) 5000UNITS/ML 1ML VIAL/SYRINGE SC SCH ×2 (08:23→19:59)
[2023-01-11] MEDS: LITHIUM CARBONATE 150 MG CAP PO SCH ×2 (08:23→19:58)
[2023-01-11] MEDS: amLODIPine 5 MG TAB PO SCH (09:00)
[2023-01-11] MEDS: SENNA 8.6 MG TAB (SENOKOT) PO PRN (11:31)
[2023-01-11] MEDS: LURASIDONE 20 MG TAB (LATUDA) PO SCH (19:59)
[2023-01-12] MEDS: LEVOTHYROXINE 25MCG TABLET (0.025MG) PO SCH (05:26)
[2023-01-12 05:50] VITALS: BP 149/75; TEMP 98.6; O2SAT 97
[2023-01-12] MEDS: HEPARIN SOD (PORCINE) 5000UNITS/ML 1ML VIAL/SYRINGE SC SCH ×2 (09:20→20:07)
[2023-01-12] MEDS: ADDERALL 5 MG TAB PO SCH (09:22)
[2023-01-12] MEDS: LITHIUM CARBONATE 150 MG CAP PO SCH ×2 (09:22→20:07)
[2023-01-12] MEDS: amLODIPine 5 MG TAB PO SCH (09:22)
[2023-01-12] MEDS: lamoTRIgine 100MG TAB PO SCH (09:22)
[2023-01-12] MEDS: VIIBRYD 40 MG PO SCH (09:23)
[2023-01-12] MEDS: MIRALAX *UNIT DOSE* 17GM PACKET PO PRN (09:28)
[2023-01-12] MEDS: SENNA 8.6 MG TAB (SENOKOT) PO PRN (09:28)
[2023-01-12 12:42] VITALS: BP 140/63
[2023-01-12] MEDS: TORSEMIDE 20 MG TAB PO SCH (12:42)
[2023-01-12] MEDS: LURASIDONE 20 MG TAB (LATUDA) PO SCH (20:07)
[2023-01-13 04:50] VITALS: BP 133/68; TEMP 98.1; O2SAT 98
[2023-01-13] MEDS: LEVOTHYROXINE 25MCG TABLET (0.025MG) PO SCH (05:33)
[2023-01-13] MEDS: VIIBRYD 40 MG PO SCH (09:01)
[2023-01-13] MEDS: ADDERALL 5 MG TAB PO SCH (09:01)
[2023-01-13] MEDS: HEPARIN SOD (PORCINE) 5000UNITS/ML 1ML VIAL/SYRINGE SC SCH ×2 (09:01→20:10)
[2023-01-13] MEDS: lamoTRIgine 100MG TAB PO SCH (09:02)
[2023-01-13] MEDS: amLODIPine 5 MG TAB PO SCH (09:02)
[2023-01-13] MEDS: LITHIUM CARBONATE 150 MG CAP PO SCH ×2 (09:02→20:10)
[2023-01-13] MEDS: MIRALAX *UNIT DOSE* 17GM PACKET PO PRN (09:08)
[2023-01-13] MEDS: SENNA 8.6 MG TAB (SENOKOT) PO PRN (09:08)
[2023-01-13] MEDS: LURASIDONE 20 MG TAB (LATUDA) PO SCH (20:10)
[2023-01-14 00:15] VITALS: O2SAT 83
[2023-01-14] MEDS: LEVOTHYROXINE 25MCG TABLET (0.025MG) PO SCH (05:25)
[2023-01-14 05:30] VITALS: BP 144/76; TEMP 98.4; O2SAT 92
[2023-01-14] MEDS: lamoTRIgine 100MG TAB PO SCH (08:51)
[2023-01-14] MEDS: ADDERALL 5 MG TAB PO SCH (08:51)
[2023-01-14] MEDS: SENNA 8.6 MG TAB (SENOKOT) PO PRN (08:51)
[2023-01-14] MEDS: LITHIUM CARBONATE 150 MG CAP PO SCH ×2 (08:52→20:26)
[2023-01-14] MEDS: TORSEMIDE 20 MG TAB PO SCH (08:52)
[2023-01-14] MEDS: amLODIPine 5 MG TAB PO SCH (08:52)
[2023-01-14] MEDS: VIIBRYD 40 MG PO SCH (08:53)
[2023-01-14] MEDS: HEPARIN SOD (PORCINE) 5000UNITS/ML 1ML VIAL/SYRINGE SC SCH ×2 (08:53→20:26)
[2023-01-14] MEDS: LURASIDONE 20 MG TAB (LATUDA) PO SCH (20:26)
[2023-01-14] MEDS: MIRALAX *UNIT DOSE* 17GM PACKET PO PRN (20:38)
[2023-01-15 04:55] VITALS: BP 141/75; TEMP 96.8; O2SAT 97
[2023-01-15] MEDS: LEVOTHYROXINE 25MCG TABLET (0.025MG) PO SCH (06:12)
[2023-01-15] MEDS: amLODIPine 5 MG TAB PO SCH (09:00)
[2023-01-15] MEDS: LITHIUM CARBONATE 150 MG CAP PO SCH ×2 (09:31→21:09)
[2023-01-15] MEDS: HEPARIN SOD (PORCINE) 5000UNITS/ML 1ML VIAL/SYRINGE SC SCH ×2 (09:31→21:09)
[2023-01-15] MEDS: VIIBRYD 40 MG PO SCH (09:32)
[2023-01-15] MEDS: lamoTRIgine 100MG TAB PO SCH (09:32)
[2023-01-15] MEDS: ADDERALL 5 MG TAB PO SCH (09:32)
[2023-01-15] MEDS: LURASIDONE 20 MG TAB (LATUDA) PO SCH (21:09)
[2023-01-16 06:00] VITALS: BP 132/70; TEMP 98.2; O2SAT 96
[2023-01-16] MEDS: LEVOTHYROXINE 25MCG TABLET (0.025MG) PO SCH (06:08)
[2023-01-16] MEDS: ADDERALL 5 MG TAB PO SCH (08:17)
[2023-01-16] MEDS: MIRALAX *UNIT DOSE* 17GM PACKET PO PRN (08:17)
[2023-01-16] MEDS: SENNA 8.6 MG TAB (SENOKOT) PO PRN (08:17)
[2023-01-16] MEDS: HEPARIN SOD (PORCINE) 5000UNITS/ML 1ML VIAL/SYRINGE SC SCH ×2 (08:18→21:48)
[2023-01-16] MEDS: TORSEMIDE 20 MG TAB PO SCH (08:18)
[2023-01-16] MEDS: LITHIUM CARBONATE 150 MG CAP PO SCH ×2 (08:18→21:48)
[2023-01-16] MEDS: lamoTRIgine 100MG TAB PO SCH (08:18)
[2023-01-16] MEDS: VIIBRYD 40 MG PO SCH (08:18)
[2023-01-16] MEDS: amLODIPine 5 MG TAB PO SCH (08:20)
[2023-01-16] MEDS: LURASIDONE 20 MG TAB (LATUDA) PO SCH (21:48)
[2023-01-17] MEDS: LEVOTHYROXINE 25MCG TABLET (0.025MG) PO SCH (05:10)
[2023-01-17 06:00] VITALS: BP 132/71; TEMP 97.9; O2SAT 97
[2023-01-17] MEDS: LITHIUM CARBONATE 150 MG CAP PO SCH ×2 (08:46→20:17)
[2023-01-17] MEDS: ADDERALL 5 MG TAB PO SCH (08:46)
[2023-01-17] MEDS: lamoTRIgine 100MG TAB PO SCH (08:46)
[2023-01-17] MEDS: VIIBRYD 40 MG PO SCH (08:46)
[2023-01-17] MEDS: HEPARIN SOD (PORCINE) 5000UNITS/ML 1ML VIAL/SYRINGE SC SCH ×2 (08:46→20:17)
[2023-01-17] MEDS: amLODIPine 5 MG TAB PO SCH (08:47)
[2023-01-17] MEDS: LURASIDONE 20 MG TAB (LATUDA) PO SCH (20:17)
[2023-01-18 05:30] VITALS: BP 130/61; TEMP 97.7; O2SAT 97
[2023-01-18] MEDS: LEVOTHYROXINE 25MCG TABLET (0.025MG) PO SCH (06:40)
[2023-01-18] MEDS: lamoTRIgine 100MG TAB PO SCH (08:28)
[2023-01-18] MEDS: LITHIUM CARBONATE 150 MG CAP PO SCH ×2 (08:28→20:08)
[2023-01-18] MEDS: ADDERALL 5 MG TAB PO SCH (08:28)
[2023-01-18] MEDS: HEPARIN SOD (PORCINE) 5000UNITS/ML 1ML VIAL/SYRINGE SC SCH ×2 (08:28→20:07)
[2023-01-18] MEDS: TORSEMIDE 20 MG TAB PO SCH (08:29)
[2023-01-18] MEDS: amLODIPine 5 MG TAB PO SCH (08:29)
[2023-01-18] MEDS: VIIBRYD 40 MG PO SCH (08:30)
[2023-01-18] MEDS: LURASIDONE 20 MG TAB (LATUDA) PO SCH (20:07)
[2023-01-19] MEDS: LEVOTHYROXINE 25MCG TABLET (0.025MG) PO SCH (05:47)
[2023-01-19 06:00] VITALS: BP 108/64; TEMP 97.9; O2SAT 96
[2023-01-19 07:59] VITALS: BP 129/74
[2023-01-19] MEDS: LITHIUM CARBONATE 150 MG CAP PO SCH ×2 (08:07→20:17)
[2023-01-19] MEDS: amLODIPine 5 MG TAB PO SCH (08:07)
[2023-01-19] MEDS: HEPARIN SOD (PORCINE) 5000UNITS/ML 1ML VIAL/SYRINGE SC SCH ×2 (08:07→20:17)
[2023-01-19] MEDS: ADDERALL 5 MG TAB PO SCH (08:07)
[2023-01-19] MEDS: lamoTRIgine 100MG TAB PO SCH (08:07)
[2023-01-19] MEDS: VIIBRYD 40 MG PO SCH (08:08)
[2023-01-19] MEDS: LURASIDONE 20 MG TAB (LATUDA) PO SCH (20:17)
[2023-01-20] MEDS: LEVOTHYROXINE 25MCG TABLET (0.025MG) PO SCH (05:40)
[2023-01-20 06:00] VITALS: BP 148/66; TEMP 97.7; O2SAT 96
[2023-01-20] MEDS: VIIBRYD 40 MG PO SCH (08:53)
[2023-01-20] MEDS: ADDERALL 5 MG TAB PO SCH (08:53)
[2023-01-20] MEDS: amLODIPine 5 MG TAB PO SCH (08:54)
[2023-01-20] MEDS: TORSEMIDE 20 MG TAB PO SCH (08:54)
[2023-01-20] MEDS: lamoTRIgine 100MG TAB PO SCH (08:54)
[2023-01-20] MEDS: HEPARIN SOD (PORCINE) 5000UNITS/ML 1ML VIAL/SYRINGE SC SCH ×2 (08:54→20:50)
[2023-01-20] MEDS: LITHIUM CARBONATE 150 MG CAP PO SCH ×2 (08:55→20:49)
[2023-01-20] MEDS: LURASIDONE 20 MG TAB (LATUDA) PO SCH (20:49)
[2023-01-20] MEDS ORDERED: PHENAZOPYRIDINE 100 MG TAB PO SCH (21:00)
[2023-01-21 05:36] VITALS: BP 126/64; TEMP 98.6; O2SAT 97
[2023-01-21] MEDS: LEVOTHYROXINE 25MCG TABLET (0.025MG) PO SCH (05:38)
[2023-01-21 06:35] LABS: CALCIUM LEVEL 9.7 MG/DL (8.3-10.6); CREATININE FOR GFR 1.28 MG/DL (0.55-1.30); GLOMERULAR FILTRATION RATE 42.6 (>32); POTASSIUM SERUM 3.8 MMOL/L (3.5-5.1)
[2023-01-21] MEDS: lamoTRIgine 100MG TAB PO SCH (08:58)
[2023-01-21] MEDS: HEPARIN SOD (PORCINE) 5000UNITS/ML 1ML VIAL/SYRINGE SC SCH ×2 (08:58→22:09)
[2023-01-21] MEDS: LITHIUM CARBONATE 150 MG CAP PO SCH ×2 (08:58→22:08)
[2023-01-21] MEDS: ADDERALL 5 MG TAB PO SCH (08:59)
[2023-01-21] MEDS: VIIBRYD 40 MG PO SCH (08:59)
[2023-01-21] MEDS: LURASIDONE 20 MG TAB (LATUDA) PO SCH (22:08)
[2023-01-22] MEDS: LEVOTHYROXINE 25MCG TABLET (0.025MG) PO SCH (05:30)
[2023-01-22 05:57] VITALS: BP 124/73; TEMP 98.1; O2SAT 96
[2023-01-22] MEDS: VIIBRYD 40 MG PO SCH (08:30)
[2023-01-22] MEDS: LITHIUM CARBONATE 150 MG CAP PO SCH ×2 (08:30→20:53)
[2023-01-22] MEDS: HEPARIN SOD (PORCINE) 5000UNITS/ML 1ML VIAL/SYRINGE SC SCH ×2 (08:30→20:53)
[2023-01-22] MEDS: ADDERALL 5 MG TAB PO SCH (08:31)
[2023-01-22] MEDS: lamoTRIgine 100MG TAB PO SCH (08:31)
[2023-01-22] MEDS: LURASIDONE HCL 40MG TAB (LATUDA) PO SCH (20:53)
[2023-01-23] MEDS: LEVOTHYROXINE 25MCG TABLET (0.025MG) PO SCH (05:25)
[2023-01-23 06:00] VITALS: BP 128/64; TEMP 97.5; O2SAT 99
[2023-01-23] MEDS: LITHIUM CARBONATE 150 MG CAP PO SCH ×2 (08:24→20:52)
[2023-01-23] MEDS: lamoTRIgine 100MG TAB PO SCH (08:24)
[2023-01-23] MEDS: HEPARIN SOD (PORCINE) 5000UNITS/ML 1ML VIAL/SYRINGE SC SCH ×2 (08:24→20:53)
[2023-01-23] MEDS: ADDERALL 5 MG TAB PO SCH (08:24)
[2023-01-23] MEDS: VIIBRYD 40 MG PO SCH (08:25)
[2023-01-23] MEDS: LURASIDONE HCL 40MG TAB (LATUDA) PO SCH (20:52)
[2023-01-24 04:59] VITALS: BP 145/54; TEMP 97.5; O2SAT 97
[2023-01-24 05:23] VITALS: BP_SYST 115; BP_SYST 145; BP_DIAS 54; BP_DIAS 69; TEMP 97.7; O2SAT 96; O2SAT 97
[2023-01-24] MEDS: LEVOTHYROXINE 25MCG TABLET (0.025MG) PO SCH (05:40)
[2023-01-24] MEDS: lamoTRIgine 100MG TAB PO SCH (08:08)
[2023-01-24] MEDS: LITHIUM CARBONATE 150 MG CAP PO SCH ×2 (08:08→21:05)
[2023-01-24] MEDS: ADDERALL 5 MG TAB PO SCH (08:08)
[2023-01-24] MEDS: HEPARIN SOD (PORCINE) 5000UNITS/ML 1ML VIAL/SYRINGE SC SCH ×2 (08:09→21:05)
[2023-01-24] MEDS: VIIBRYD 40 MG PO SCH (08:09)
[2023-01-24] MEDS: LURASIDONE HCL 40MG TAB (LATUDA) PO SCH (21:05)
[2023-01-24] MEDS: ACETAMINOPHEN TAB 650MG DOSE (2X325MG) PO PRN (22:22)
[2023-01-25 05:02] VITALS: BP 114/63; TEMP 98.1; O2SAT 94
[2023-01-25] MEDS: LEVOTHYROXINE 25MCG TABLET (0.025MG) PO SCH (05:06)
[2023-01-25] MEDS: ADDERALL 5 MG TAB PO SCH (11:04)
[2023-01-25] MEDS: VIIBRYD 40 MG PO SCH (11:04)
[2023-01-25] MEDS: lamoTRIgine 100MG TAB PO SCH (11:05)
[2023-01-25] MEDS: LITHIUM CARBONATE 150 MG CAP PO SCH ×2 (11:05→20:29)
[2023-01-25] MEDS: HEPARIN SOD (PORCINE) 5000UNITS/ML 1ML VIAL/SYRINGE SC SCH ×2 (11:09→20:29)
[2023-01-25] MEDS: LURASIDONE HCL 40MG TAB (LATUDA) PO SCH (20:30)
[2023-01-26 05:18] VITALS: BP 111/61; TEMP 97.9; O2SAT 91
[2023-01-26] MEDS: LEVOTHYROXINE 25MCG TABLET (0.025MG) PO SCH (05:20)
[2023-01-26] MEDS: LITHIUM CARBONATE 150 MG CAP PO SCH ×2 (09:52→21:28)
[2023-01-26] MEDS: lamoTRIgine 100MG TAB PO SCH (09:55)
[2023-01-26] MEDS: ADDERALL 5 MG TAB PO SCH (09:55)
[2023-01-26] MEDS: HEPARIN SOD (PORCINE) 5000UNITS/ML 1ML VIAL/SYRINGE SC SCH ×2 (09:56→21:28)
[2023-01-26] MEDS: VIIBRYD 40 MG PO SCH (09:56)
[2023-01-26] MEDS: LURASIDONE HCL 40MG TAB (LATUDA) PO SCH (21:28)
[2023-01-27] MEDS: LEVOTHYROXINE 25MCG TABLET (0.025MG) PO SCH (05:20)
[2023-01-27 05:22] VITALS: BP 114/62; TEMP 98.1; O2SAT 96
[2023-01-27] MEDS: HEPARIN SOD (PORCINE) 5000UNITS/ML 1ML VIAL/SYRINGE SC SCH ×2 (10:31→20:08)
[2023-01-27] MEDS: lamoTRIgine 100MG TAB PO SCH (10:32)
[2023-01-27] MEDS: ADDERALL 5 MG TAB PO SCH (10:32)
[2023-01-27] MEDS: VIIBRYD 40 MG PO SCH (10:32)
[2023-01-27] MEDS: LITHIUM CARBONATE 150 MG CAP PO SCH ×2 (10:33→20:07)
[2023-01-27] MEDS: LURASIDONE HCL 40MG TAB (LATUDA) PO SCH (20:07)
[2023-01-28 05:24] VITALS: BP 116/60; TEMP 97.7; O2SAT 96
[2023-01-28] MEDS: LEVOTHYROXINE 25MCG TABLET (0.025MG) PO SCH (05:35)
[2023-01-28] MEDS: lamoTRIgine 100MG TAB PO SCH (08:23)
[2023-01-28] MEDS: ADDERALL 5 MG TAB PO SCH (08:23)
[2023-01-28] MEDS: VIIBRYD 40 MG PO SCH (08:23)
[2023-01-28 08:24] VITALS: BP 116/60
[2023-01-28] MEDS: HEPARIN SOD (PORCINE) 5000UNITS/ML 1ML VIAL/SYRINGE SC SCH (08:24)
[2023-01-28] MEDS: LITHIUM CARBONATE 150 MG CAP PO SCH (08:24)
[2023-01-28] MEDS ORDERED: LURA40TA2 PO (10:48)
[2023-01-28] MEDS ORDERED: AMLO10TA PO (10:48)
== END 2023-01-28 13:16 | disposition home or self-care (01) ==
LOC: M ED 12:08 → M ED INP 22:24 → M MSPAV 01-02 11:31
PROVIDERS: ADMIT Internal Medicine; ATTEND Internal Medicine
DX: R29.6 Repeated falls (principal); N30.20 Other chronic cystitis without hematuria; S62.324A Displaced fracture of shaft of fourth metacarpal bone, right hand, initial encounter for closed fracture; F31.9 Bipolar disorder, unspecified; F90.9 Attention-deficit hyperactivity disorder, unspecified type; E03.9 Hypothyroidism, unspecified; I10 Essential (primary) hypertension; Z79.899 Other long term (current) drug therapy; Z88.2 Allergy status to sulfonamides; Z88.1 Allergy status to other antibiotic agents; Z91.030 Bee allergy status
CPT/HCPCS: 36415; 70450; 71045; 72125; 73110; 73130; 80048; 80053; 80175; 80178; 81001; 82550; 82553; 83735; 84443; 84484; 85025; 87040; 87086; 87631; 93005; 96365; 96366; 96372; 96375; 97112; 97116; 97161; 97165; 97530; 97535; 99285; G0378; J0696

== ENCOUNTER → 2023-02-11 | Outpatient (CLI) | payer MEDICARE, OTHER ==
[~2023-02-11] MED LIST changes: +LURA20TA PO; +LURA40TA2 PO
== END ==
LOC: M SOG 13:26
PROVIDERS: ATTEND Student in an Organized Health Care Education/Training Program
DX: S62.304A Unspecified fracture of fourth metacarpal bone, right hand, initial encounter for closed fracture (principal); W18.30XA Fall on same level, unspecified, initial encounter; Y92.009 Unspecified place in unspecified non-institutional (private) residence as the place of occurrence of the external cause

== ENCOUNTER → 2023-03-01 | Outpatient (REF) | payer MEDICARE, OTHER | LOC: M LAB REF 16:19 | PROVIDERS: ATTEND Internal Medicine | DX: N18.32 Chronic kidney disease, stage 3b (principal); R35.0 Frequency of micturition ==

== ENCOUNTER 2023-05-05 19:28 | Emergency (ER) | payer MEDICARE, OTHER ==
[2023-05-05 19:49] VITALS: BP 168/70; TEMP 97.8; O2SAT 98
== END 2023-05-05 23:28 | disposition home or self-care (01) ==
LOC: EDBD 19:28 → M ED 19:28
DX: S01.01XA Laceration without foreign body of scalp, initial encounter (principal); W18.30XA Fall on same level, unspecified, initial encounter; F31.9 Bipolar disorder, unspecified; I10 Essential (primary) hypertension; Z88.1 Allergy status to other antibiotic agents; Z88.2 Allergy status to sulfonamides; Z91.030 Bee allergy status; Z79.899 Other long term (current) drug therapy

== ENCOUNTER 2023-05-29 09:52 | Emergency (ER) | payer MEDICARE, OTHER ==
[~2023-05-29] VITALS: Ht 154.9 cm; Wt 56.1 kg
[2023-05-29] MEDS ORDERED: AMLO1TAB24 (10:09)
[2023-05-29 10:47] LABS: BASO # 0.1 10^3/uL (0.0-0.2); EOS # 0.3 10^3/uL (0.0-0.5); HEMATOCRIT 40.4 % (36.0-47.0); HEMOGLOBIN 12.4 g/dl (12.0-15.5); LYMPH % 23.2 % (24.0-44.0); MEAN CORPUSCULAR HEMOGLOBIN 30.1 pg (27.0-33.0); MEAN CORPUSCULAR HGB CONC 30.7 g/dl (32.0-36.5); MEAN CORPUSCULAR VOLUME 98.1 fl (80.0-96.0); MONO # 0.7 10^3/uL (0.0-0.8); MONO % 8.2 % (2.0-8.0); NEUTROPHILS # 5.6 10^3/uL (1.5-8.5); NEUTROPHILS % 64.4 % (36.0-66.0); PLATELET COUNT, AUTOMATED 323 10^3/uL (150-450); RED BLOOD COUNT 4.12 10^6/uL (4.00-5.40); WHITE BLOOD COUNT 8.6 10^3/uL (4.0-10.0)
[2023-05-29 11:12] LABS: CALCIUM LEVEL 9.7 MG/DL (8.3-10.6); CREATININE FOR GFR 1.3 MG/DL (0.55-1.30); GLOMERULAR FILTRATION RATE 41.9 (>32); POTASSIUM SERUM 4.3 MMOL/L (3.5-5.1)
[2023-05-29 11:21] LABS: RSV AMPLIFICATION NEGATIVE (NEGATIVE)
[2023-05-29 12:23] LABS: LITHIUM LEVEL 0.66 MMOL/L (1.0-1.20)
[2023-05-29 14:00] VITALS: BP 166/74; TEMP 98.1; O2SAT 99
== END 2023-05-29 14:36 | disposition home or self-care (01) ==
LOC: M ED 09:52
DX: R26.9 Unspecified abnormalities of gait and mobility (principal); Z86.16 Personal history of COVID-19; Z88.1 Allergy status to other antibiotic agents; Z88.2 Allergy status to sulfonamides; Z91.030 Bee allergy status; Z79.890 Hormone replacement therapy; Z79.899 Other long term (current) drug therapy

== ENCOUNTER 2023-06-18 15:55 | Inpatient (IN) | payer MEDICARE, OTHER ==
[~2023-06-18] VITALS: Ht 154.9 cm; Wt 58.1 kg
[2023-06-18] MEDS ORDERED: NS 1,000 ML IV SCH ×2 (16:00→16:35)
[2023-06-18 16:10] LABS: VENOUS BASE EXCESS 2.4 (-2.0-2.0); VENOUS HCO3 29.2 MMOL/L (23.0-27.0); VENOUS O2 SATURATION 53.9 % (60.0-80.0); VENOUS PARTIAL PRESSURE CO2 53.8 mmHg (38.0-50.0); VENOUS PARTIAL PRESSURE O2 26.5 mmHg (30.0-50.0); VENOUS PH 7.352 UNITS (7.330-7.430); VENOUS STANDARD HCO3 25.4 MMOL/L; VENOUS TOTAL CO2 30.8 MMOL/L (24.0-28.0)
[2023-06-18 16:25] LABS: BASO # 0.1 10^3/uL (0.0-0.2); BASO % 0.6 % (0.0-1.0); EOS # 0.2 10^3/uL (0.0-0.5); EOS % 1.7 % (0.0-3.0); HEMATOCRIT 42.7 % (36.0-47.0); HEMOGLOBIN 13.4 g/dl (12.0-15.5); LYMPH # 2.1 10^3/uL (1.5-5.0); LYMPH % 22.9 % (24.0-44.0); MEAN CORPUSCULAR HEMOGLOBIN 31.1 pg (27.0-33.0); MEAN CORPUSCULAR HGB CONC 31.4 g/dl (32.0-36.5); MEAN CORPUSCULAR VOLUME 99.1 fl (80.0-96.0); MONO # 0.7 10^3/uL (0.0-0.8); MONO % 7.3 % (2.0-8.0); NEUTROPHILS # 6.3 10^3/uL (1.5-8.5); NEUTROPHILS % 67.3 % (36.0-66.0); PLATELET COUNT, AUTOMATED 294 10^3/uL (150-450); RED BLOOD COUNT 4.31 10^6/uL (4.00-5.40); WHITE BLOOD COUNT 9.3 10^3/uL (4.0-10.0)
[2023-06-18] MEDS ORDERED: CHARCOAL ACTIVATED LIQUID 25GM/120ML BTL PO ONE (16:35)
[2023-06-18 16:40] LABS: ETHYL ALCOHOL (ETHANOL) < 0.003 % (0.000-0.010)
[2023-06-18 16:42] LABS: ALBUMIN 3.9 G/DL (3.2-5.2); ALKALINE PHOSPHATASE 66 U/L (46-116); ALT/SGPT 13 U/L (7.0-40); AST/SGOT 13 U/L (<34); BILIRUBIN,DIRECT 0.1 MG/DL (<0.4); BILIRUBIN,TOTAL 0.4 MG/DL (0.3-1.2); BLOOD UREA NITROGEN 13 MG/DL (9-23); CARBON DIOXIDE LEVEL 29 MMOL/L (20-31); CHLORIDE LEVEL 109 MMOL/L (98-107); CREATININE FOR GFR 1.12 MG/DL (0.55-1.30); GLOMERULAR FILTRATION RATE 49.7 (>32); GLUCOSE, FASTING 92 MG/DL (74-106); LITHIUM LEVEL 2.17 MMOL/L (1.0-1.20); POTASSIUM SERUM 4.5 MMOL/L (3.5-5.1); SALICYLATE LEVEL < 3.0 MG/DL (<30); SODIUM LEVEL 140 MMOL/L (136-145); TOTAL PROTEIN 7.5 G/DL (5.7-8.2)
[2023-06-18 16:44] LABS: THYROID STIMULATING HORMONE 1.738 uIU/ML (0.55-4.78)
[2023-06-18 16:45] LABS: CPK CREATINE PHOSPHOKINASE 59 U/L (34-145)
[2023-06-18 16:51] LABS: RSV AMPLIFICATION NEGATIVE (NEGATIVE)
[2023-06-18 17:03] LABS: OSMOLALITY SERUM 302 MOSM/KG (280-301)
[2023-06-18] MEDS ORDERED: MED REC IN PROGRESS XX SCH (18:15)
[2023-06-18] MEDS ORDERED: CALCIUM GLUCONATE 1,000 MG in D5W MINI-BAG PLUS 100 ML IV ONE (18:55)
[2023-06-18] MEDS ORDERED: LATU40TA2 PO (19:16)
[2023-06-18] MEDS: NS 1,000 ML IV SCH ×2 (19:20→22:00)
[2023-06-18] MEDS ORDERED: HOME MED LIST COMPLETE! XX SCH (19:25)
[2023-06-18 21:44] VITALS: BP 121/59; TEMP 97.7; O2SAT 100
[2023-06-18] MEDS: HEPARIN SOD (PORCINE) 5000UNITS/ML 1ML VIAL/SYRINGE SC SCH (22:52)
[2023-06-19 00:35] VITALS: BP 106/56; TEMP 97.9; O2SAT 98
[2023-06-19 01:14] LABS: AMPHETAMINES LEVEL URINE NEGATIVE (NEGATIVE); BARBITURATES URINE NEGATIVE (NEGATIVE); BENZODIAZEPINES URINE NEGATIVE (NEGATIVE); CANNABINOIDS URINE NEGATIVE (NEGATIVE); COCAINE METABOLITE URINE NEGATIVE (NEGATIVE); METHADONE URINE NEGATIVE (NEGATIVE); OPIATES URINE NEGATIVE (NEGATIVE); PHENCYCLIDINE URINE NEGATIVE (NEGATIVE)
[2023-06-19 03:42] VITALS: BP 116/58; TEMP 97.9; O2SAT 97
[2023-06-19] MEDS: NS 1,000 ML IV SCH ×2 (05:00→08:10)
[2023-06-19] MEDS: HEPARIN SOD (PORCINE) 5000UNITS/ML 1ML VIAL/SYRINGE SC SCH ×3 (05:27→21:50)
[2023-06-19 06:21] LABS: HEMATOCRIT 36.8 % (36.0-47.0); MEAN CORPUSCULAR HEMOGLOBIN 30.6 pg (27.0-33.0); MEAN CORPUSCULAR VOLUME 98.9 fl (80.0-96.0); PLATELET COUNT, AUTOMATED 263 10^3/uL (150-450); RED BLOOD COUNT 3.72 10^6/uL (4.00-5.40); WHITE BLOOD COUNT 9.7 10^3/uL (4.0-10.0)
[2023-06-19 06:25] LABS: HEMOGLOBIN 11.4 g/dl (12.0-15.5)
[2023-06-19 06:42] LABS: CALCIUM LEVEL 8.8 MG/DL (8.3-10.6); CREATININE FOR GFR 1.08 MG/DL (0.55-1.30); GLOMERULAR FILTRATION RATE 51.8 (>32); MAGNESIUM LEVEL 2.1 MG/DL (1.8-2.4); PHOSPHORUS LEVEL 2.8 MG/DL (2.4-5.1); POTASSIUM SERUM 3.7 MMOL/L (3.5-5.1)
[2023-06-19 07:51] VITALS: BP 121/55; TEMP 98.7; O2SAT 98
[2023-06-19 12:50] VITALS: BP 133/63; TEMP 97.7; O2SAT 96
[2023-06-19] MEDS: lamoTRIgine 100MG TAB PO SCH (15:42)
[2023-06-19 18:15] VITALS: BP 145/69; TEMP 97.7; O2SAT 97
[2023-06-19] MEDS ORDERED: ARTIFICIAL TEARS DROPS 15ML BTL (VISINE DRY RELIEF) OU PRN (21:35)
[2023-06-19 21:47] VITALS: BP 130/64; TEMP 97.9; O2SAT 97
[2023-06-20 04:37] VITALS: BP 118/64; TEMP 98.4; O2SAT 95
[2023-06-20 05:50] LABS: BASO # 0.1 10^3/uL (0.0-0.2); BASO % 0.8 % (0.0-1.0); EOS # 0.3 10^3/uL (0.0-0.5); EOS % 2.6 % (0.0-3.0); HEMATOCRIT 36.5 % (36.0-47.0); HEMOGLOBIN 11.1 g/dl (12.0-15.5); LYMPH # 2.5 10^3/uL (1.5-5.0); LYMPH % 25.2 % (24.0-44.0); MEAN CORPUSCULAR HEMOGLOBIN 30.7 pg (27.0-33.0); MEAN CORPUSCULAR HGB CONC 30.4 g/dl (32.0-36.5); MEAN CORPUSCULAR VOLUME 100.8 fl (80.0-96.0); MONO # 1.1 10^3/uL (0.0-0.8); MONO % 11.4 % (2.0-8.0); NEUTROPHILS # 5.9 10^3/uL (1.5-8.5); NEUTROPHILS % 59.7 % (36.0-66.0); PLATELET COUNT, AUTOMATED 230 10^3/uL (150-450); RED BLOOD COUNT 3.62 10^6/uL (4.00-5.40); WHITE BLOOD COUNT 9.8 10^3/uL (4.0-10.0)
[2023-06-20 06:18] LABS: BLOOD UREA NITROGEN 10 MG/DL (9-23); CALCIUM LEVEL 9.3 MG/DL (8.3-10.6); CARBON DIOXIDE LEVEL 24 MMOL/L (20-31); CHLORIDE LEVEL 113 MMOL/L (98-107); CREATININE FOR GFR 0.94 MG/DL (0.55-1.30); GLOMERULAR FILTRATION RATE > 60.0 (>32); GLUCOSE, FASTING 105 MG/DL (74-106); POTASSIUM SERUM 3.6 MMOL/L (3.5-5.1); SODIUM LEVEL 145 MMOL/L (136-145)
[2023-06-20] MEDS: LEVOTHYROXINE 25MCG TABLET (0.025MG) PO SCH (06:32)
[2023-06-20] MEDS: HEPARIN SOD (PORCINE) 5000UNITS/ML 1ML VIAL/SYRINGE SC SCH ×3 (06:33→21:24)
[2023-06-20 06:35] VITALS: BP 138/74; TEMP 99
[2023-06-20] MEDS: LURASIDONE HCL 40MG TAB (LATUDA) PO SCH (08:01)
[2023-06-20] MEDS: lamoTRIgine 100MG TAB PO SCH (08:01)
[2023-06-20] MEDS: SENOKOT S TAB PO SCH ×2 (12:15→21:23)
[2023-06-20] MEDS: MIRALAX *UNIT DOSE* 17GM PACKET PO SCH (12:15)
[2023-06-20 14:00] VITALS: BP 138/68; TEMP 98.1; O2SAT 98
[2023-06-20 21:30] VITALS: BP 139/67; TEMP 97.5; O2SAT 96
[2023-06-21 05:28] VITALS: BP 136/67; TEMP 98.8; O2SAT 95
[2023-06-21] MEDS: HEPARIN SOD (PORCINE) 5000UNITS/ML 1ML VIAL/SYRINGE SC SCH ×3 (06:23→20:40)
[2023-06-21] MEDS: LEVOTHYROXINE 25MCG TABLET (0.025MG) PO SCH (06:23)
[2023-06-21] MEDS: LURASIDONE HCL 40MG TAB (LATUDA) PO SCH (08:16)
[2023-06-21] MEDS: lamoTRIgine 100MG TAB PO SCH (08:17)
[2023-06-21] MEDS: SENOKOT S TAB PO SCH ×2 (08:17→20:40)
[2023-06-21] MEDS: MIRALAX *UNIT DOSE* 17GM PACKET PO SCH (08:17)
[2023-06-21 14:00] VITALS: BP 131/68; TEMP 98.1; O2SAT 99
[2023-06-21 20:50] VITALS: BP 162/80; TEMP 98.2; O2SAT 92
[2023-06-21] MEDS ORDERED: MOM 30ML SUSPENSION UDC PO PRN (21:55)
[2023-06-22] MEDS ORDERED: RAMELTEON 8 MG TAB (ROZEREM) PO PRN (00:20)
[2023-06-22] MEDS: HEPARIN SOD (PORCINE) 5000UNITS/ML 1ML VIAL/SYRINGE SC SCH ×2 (05:42→15:57)
[2023-06-22] MEDS: LEVOTHYROXINE 25MCG TABLET (0.025MG) PO SCH (05:42)
[2023-06-22 06:42] LABS: HEMATOCRIT 35.8 % (36.0-47.0); HEMOGLOBIN 11.2 g/dl (12.0-15.5); MEAN CORPUSCULAR HEMOGLOBIN 30.9 pg (27.0-33.0); MEAN CORPUSCULAR HGB CONC 31.3 g/dl (32.0-36.5); MEAN CORPUSCULAR VOLUME 98.6 fl (80.0-96.0); PLATELET COUNT, AUTOMATED 233 10^3/uL (150-450); RED BLOOD COUNT 3.63 10^6/uL (4.00-5.40); WHITE BLOOD COUNT 8.5 10^3/uL (4.0-10.0)
[2023-06-22 06:50] VITALS: BP 135/72; TEMP 98.6; O2SAT 95
[2023-06-22 07:04] LABS: CALCIUM LEVEL 9.3 MG/DL (8.3-10.6); CREATININE FOR GFR 1.09 MG/DL (0.55-1.30); GLOMERULAR FILTRATION RATE 51.3 (>32); POTASSIUM SERUM 4.1 MMOL/L (3.5-5.1)
[2023-06-22] MEDS: SENOKOT S TAB PO SCH (08:26)
[2023-06-22] MEDS: MIRALAX *UNIT DOSE* 17GM PACKET PO SCH (08:26)
[2023-06-22] MEDS: LURASIDONE HCL 40MG TAB (LATUDA) PO SCH (08:30)
[2023-06-22] MEDS: lamoTRIgine 100MG TAB PO SCH (08:30)
[2023-06-22 14:00] VITALS: BP 137/71; TEMP 97.9; O2SAT 98
[2023-06-23] MEDS ORDERED: LURASIDONE 20 MG TAB (LATUDA) PO SCH (08:00)
[2023-06-23] MEDS ORDERED: EQL400CA9 PO (11:22)
[2023-06-23] MEDS ORDERED: LAMO200T3 PO (11:24)
== END 2023-06-22 20:00 | DRG 918 ==
LOC: M ED 15:55 → EDBEDREQSVC 17:50 → M ED INP 18:32 → M PCU 21:34 → M MSPAV 06-19 17:55
PROVIDERS: ADMIT Internal Medicine; ATTEND Internal Medicine Nephrology
DX: T56.892A Toxic effect of other metals, intentional self-harm, initial encounter (principal); T46.1X2A Poisoning by calcium-channel blockers, intentional self-harm, initial encounter; E03.9 Hypothyroidism, unspecified; I10 Essential (primary) hypertension; K59.00 Constipation, unspecified; F31.9 Bipolar disorder, unspecified; Z98.82 Breast implant status; Z88.2 Allergy status to sulfonamides; Z91.030 Bee allergy status; Z88.8 Allergy status to other drugs, medicaments and biological substances; Z79.899 Other long term (current) drug therapy

== ENCOUNTER 2023-06-22 14:14 | Inpatient (IN) | payer MEDICARE, OTHER ==
[2023-06-22] MEDS ORDERED: IBUPROFEN 400MG TAB PO PRN (14:45)
[2023-06-22] MEDS ORDERED: MAALOX 30 ML SUSP *UDC PO PRN (14:45)
[2023-06-22 21:10] VITALS: BP 116/59; TEMP 97.9; O2SAT 97
[2023-06-23] MEDS: UNRESOLVED PATIENT OWN MED ORDER XX SCH (00:01)
[2023-06-23 06:59] VITALS: BP 149/58; TEMP 97.9; O2SAT 95
[2023-06-23] MEDS ORDERED: EQL400CA9 PO (11:22)
[2023-06-23] MEDS ORDERED: HOME MED LIST COMPLETE! XX SCH (11:30)
[2023-06-23] MEDS: ADDERALL 5 MG TAB PO SCH (11:45)
[2023-06-23] MEDS: lamoTRIgine 100MG TAB PO SCH (11:45)
[2023-06-23] MEDS: LURASIDONE HCL 40MG TAB (LATUDA) PO SCH (11:45)
[2023-06-23] MEDS: LEVOTHYROXINE 25MCG TABLET (0.025MG) PO SCH (12:49)
[2023-06-23 13:31] LABS: THYROID STIMULATING HORMONE 2.442 uIU/ML (0.55-4.78); THYROXINE (T4) 9.4 UG/DL (4.5-10.9)
[2023-06-23 13:33] LABS: FREE THYROXINE INDEX 2.6 % (1.3-4.8); T UPTAKE 27.7 % (22.5-37.0)
[2023-06-23] MEDS: VIIBRYD 40 MG PO SCH (18:06)
[2023-06-23 19:09] VITALS: BP 119/78; TEMP 98
[2023-06-23] MEDS: amLODIPine 5 MG TAB PO SCH (21:06)
[2023-06-23] MEDS: SENOKOT S TAB PO SCH (21:07)
[2023-06-23] MEDS: traZODone 50 MG TAB PO PRN (22:08)
[2023-06-24 06:23] VITALS: BP 142/72; TEMP 97.4; O2SAT 100
[2023-06-24] MEDS: LITHIUM CARBONATE 150 MG CAP PO SCH (10:22)
[2023-06-24 18:44] VITALS: BP 118/60; TEMP 96.9
[2023-06-24] MEDS: MOM 30ML SUSPENSION UDC PO PRN (20:14)
[2023-06-25 06:55] VITALS: BP 121/61; TEMP 97.8
[2023-06-25 16:30] VITALS: BP 138/80; TEMP 97.4; O2SAT 96
[2023-06-26 06:44] VITALS: BP 140/66; TEMP 97.9; O2SAT 99
[2023-06-26 07:38] VITALS: BP 142/71; O2SAT 98
[2023-06-26] MEDS: ACETAMINOPHEN TAB 650MG DOSE (2X325MG) PO PRN (08:40)
[2023-06-26 16:48] VITALS: BP 142/67; TEMP 98.9; O2SAT 97
[2023-06-26] MEDS: diphenhydrAMINE 25MG CAP PO PRN (20:52)
[2023-06-27 06:42] VITALS: BP 139/64; TEMP 97.3; O2SAT 99
[2023-06-27 17:04] VITALS: BP 142/80; TEMP 98.9; O2SAT 95
[2023-06-28 06:47] VITALS: BP 138/68; TEMP 97.7; O2SAT 98
[2023-06-28] MEDS: VIIBRYD 40 MG PO SCH (08:38)
[2023-06-28] MEDS ORDERED: traZODone 25MG PER 1/2 TABLET PO PRN (09:00)
[2023-06-28 18:29] VITALS: BP 142/77; TEMP 97.4; O2SAT 97
[2023-06-29 06:37] VITALS: BP 113/55; TEMP 97.6; O2SAT 99
[2023-06-29 07:12] LABS: CHOLESTEROL RISK RATIO 2.93 (<5); HDL CHOLESTEROL 67.1 MG/DL (>40); LDL CHOLESTEROL 112.5 MG/DL (<100); NON-HDL-C 129.9 MG/DL
[2023-06-29 17:16] VITALS: BP 136/68; TEMP 98.1; O2SAT 100
[2023-06-29] MEDS: LURASIDONE HCL 40MG TAB (LATUDA) PO SCH (17:30)
[2023-06-29] MEDS: LITHIUM CARBONATE 300 MG CAP PO SCH (20:41)
[2023-06-30 06:09] VITALS: BP 130/76; TEMP 97.5; O2SAT 95
[2023-06-30] MEDS: ADDERALL 5 MG TAB PO SCH (08:51)
[2023-06-30 18:22] VITALS: BP 124/82; TEMP 98.7
[2023-07-01 06:25] VITALS: BP 130/62; TEMP 97.5; O2SAT 99
[2023-07-01 17:30] VITALS: BP 130/78; TEMP 98.6
[2023-07-01 20:17] VITALS: BP 129/70
[2023-07-02 06:42] VITALS: BP 123/81; TEMP 98.7; O2SAT 96
[2023-07-02 16:13] VITALS: BP 138/76; TEMP 98; O2SAT 96
[2023-07-03 07:02] VITALS: BP 130/82; TEMP 97.6; O2SAT 95
[2023-07-03 16:40] VITALS: BP 140/76; TEMP 98; O2SAT 100
[2023-07-04 06:31] VITALS: BP 131/61; TEMP 97.7; O2SAT 99
[2023-07-04 15:28] VITALS: BP 144/76; TEMP 98.1; O2SAT 98
[2023-07-04 21:02] VITALS: BP 136/65
[2023-07-05 06:31] VITALS: BP 136/73; TEMP 98.7; O2SAT 100
[2023-07-05] MEDS ORDERED: LAMO200T3 PO (10:16)
[2023-07-05] MEDS ORDERED: VIIB40TA PO (10:16)
[2023-07-05] MEDS ORDERED: TRAZ-252 PO (10:16)
[2023-07-05] MEDS ORDERED: LATU40TA2 PO (10:16)
[2023-07-05] MEDS ORDERED: SENN-52 PO (10:16)
[2023-07-05] MEDS ORDERED: AMLO1TAB24 PO (10:16)
[2023-07-05] MEDS ORDERED: ADDE30TA PO (10:16)
[2023-07-05] MEDS ORDERED: LITH300C PO (10:16)
== END 2023-07-05 11:35 | disposition home or self-care (01) | DRG 885 ==
LOC: M ED INP 14:44 → M PSY 20:04
PROVIDERS: ADMIT Student in an Organized Health Care Education/Training Program; ATTEND Student in an Organized Health Care Education/Training Program
DX: F31.30 Bipolar disorder, current episode depressed, mild or moderate severity, unspecified (principal); Z88.2 Allergy status to sulfonamides; Z88.8 Allergy status to other drugs, medicaments and biological substances; Z91.030 Bee allergy status; Z79.899 Other long term (current) drug therapy; E03.9 Hypothyroidism, unspecified; I10 Essential (primary) hypertension; F90.9 Attention-deficit hyperactivity disorder, unspecified type; Z98.82 Breast implant status; K59.00 Constipation, unspecified

== ENCOUNTER → 2023-07-09 | Outpatient (REF) | payer MEDICARE, OTHER ==
[~2023-07-09] MED LIST changes: +ADDE30TA PO; -ASPI-161 PO; +ASPI-615 PO; +EQL400CA9 PO; +SENN-52 PO; +TRAZ-252 PO
[2023-07-09 18:40] LABS: PERCENT SATURATION 25.7 % (13.2-45.0)
[2023-07-09 18:42] LABS: FERRITIN 33.9 NG/ML (7.3-270.7)
== END ==
LOC: M LAB REF 17:39
PROVIDERS: ATTEND Internal Medicine
DX: D64.9 Anemia, unspecified (principal)

== ENCOUNTER → 2023-09-01 | Outpatient (REF) | payer MEDICARE, OTHER ==
[~2023-09-01] MED LIST changes: -MELA1TAB9 PO; +MELA5TAB58 PO
== END ==
LOC: M LAB REF 15:50
PROVIDERS: ATTEND Internal Medicine
DX: N39.0 Urinary tract infection, site not specified (principal)

== ENCOUNTER → 2023-09-23 | Outpatient (REF) | payer MEDICARE, OTHER ==
[~2023-09-23] MED LIST changes: +ADDE10TA PO; +VITA100054 PO
[2023-09-23 17:26] LABS: APPEARANCE, URINE CLEAR (CLEAR); BACTERIA, URINE AUTO 1+ (NEGATIVE); BILIRUBIN, URINE AUTO NEGATIVE (NEGATIVE); BLOOD, URINE BLOOD NEGATIVE (NEGATIVE); COLOR, URINE STRAW (YELLOW); GLUCOSE, URINE (UA) AUTO NEGATIVE (NEGATIVE); KETONE, URINE AUTO NEGATIVE (NEGATIVE); LEUKOCYTE ESTERASE, URINE AUTO 3+ (NEGATIVE); NITRITE, URINE AUTO NEGATIVE (NEGATIVE); PROTEIN, URINE AUTO NEGATIVE (NEGATIVE); RBC, URINE AUTO 0 /HPF (0-3); SPECIFIC GRAVITY URINE AUTO 1.005 (1.002-1.035); SQUAMOUS EPITHELIAL CELL UR AU 0 /HPF (0-6); TRANSITIONAL EPITHELIAL AUTO <1 /HPF; UROBILINOGEN, URINE AUTO 0.2 mg/dL (0.0-2.0); WBC, URINE AUTO 4 /HPF (0-3)
== END ==
LOC: M LAB REF 16:20
PROVIDERS: ATTEND Physician Assistant
DX: N39.0 Urinary tract infection, site not specified (principal)

== ENCOUNTER 2023-09-29 09:50 | Inpatient (IN) | payer MEDICARE, OTHER ==
[~2023-09-29] VITALS: Ht 157.5 cm; Wt 55.6 kg
[~2023-09-29 09:50] MED LIST changes: -ADDE10TA PO; -VITA100054 PO
[2023-09-29 11:39] LABS: BASO # 0.1 10^3/uL (0.0-0.2); EOS # 0.1 10^3/uL (0.0-0.5); EOS % 2.1 % (0.0-3.0); HEMATOCRIT 40.6 % (36.0-47.0); HEMOGLOBIN 12.7 g/dl (12.0-15.5); LYMPH # 1.8 10^3/uL (1.5-5.0); MEAN CORPUSCULAR HGB CONC 31.3 g/dl (32.0-36.5); MONO # 0.8 10^3/uL (0.0-0.8); MONO % 11.9 % (2.0-8.0); WHITE BLOOD COUNT 6.8 10^3/uL (4.0-10.0)
[2023-09-29 11:58] LABS: LIPASE 32 U/L (12-53)
[2023-09-29 12:00] LABS: ETHYL ALCOHOL (ETHANOL) < 0.003 % (0.000-0.010); SALICYLATE LEVEL < 3.0 MG/DL (<30)
[2023-09-29 12:01] LABS: ALBUMIN 3.6 G/DL (3.2-5.2); ALKALINE PHOSPHATASE 63 U/L (46-116); ALT/SGPT 17 U/L (7.0-40); AMYLASE 51 U/L (30-118); AST/SGOT 18 U/L (<34); BILIRUBIN,DIRECT 0.1 MG/DL (<0.4); BILIRUBIN,TOTAL 0.5 MG/DL (0.3-1.2); BLOOD UREA NITROGEN 20 MG/DL (9-23); CALCIUM LEVEL 9.5 MG/DL (8.3-10.6); CARBON DIOXIDE LEVEL 26 MMOL/L (20-31); CHLORIDE LEVEL 106 MMOL/L (98-107); CREATININE FOR GFR 1.16 MG/DL (0.55-1.30); GLOMERULAR FILTRATION RATE 47.6 (>32); GLUCOSE, FASTING 116 MG/DL (74-106); MAGNESIUM LEVEL 2.1 MG/DL (1.8-2.4); POTASSIUM SERUM 4.3 MMOL/L (3.5-5.1); SODIUM LEVEL 139 MMOL/L (136-145); TOTAL PROTEIN 6.6 G/DL (5.7-8.2)
[2023-09-29 12:03] LABS: THYROID STIMULATING HORMONE 2.631 uIU/ML (0.55-4.78)
[2023-09-29 12:40] LABS: PLATELET COUNT, AUTOMATED 176 10^3/uL (150-450)
[2023-09-29] MEDS: LIDOCAINE 2% 5ML JELLY UROJET TOP ONE (12:45)
[2023-09-29] MEDS ORDERED: ADDE10TA PO (13:19)
[2023-09-29] MEDS ORDERED: LATU40TA2 PO (13:19)
[2023-09-29] MEDS ORDERED: ADDE20TA PO (13:19)
[2023-09-29] MEDS ORDERED: VITA100054 PO (13:19)
[2023-09-29] MEDS ORDERED: HOME MED LIST COMPLETE! XX SCH (13:20)
[2023-09-29 13:30] LABS: BARBITURATES URINE NEGATIVE (NEGATIVE); BENZODIAZEPINES URINE NEGATIVE (NEGATIVE); CANNABINOIDS URINE NEGATIVE (NEGATIVE); COCAINE METABOLITE URINE NEGATIVE (NEGATIVE); METHADONE URINE NEGATIVE (NEGATIVE); OPIATES URINE NEGATIVE (NEGATIVE); PHENCYCLIDINE URINE NEGATIVE (NEGATIVE)
[2023-09-29 13:32] LABS: AMPHETAMINES LEVEL URINE POSITIVE (NEGATIVE)
[2023-09-29] MEDS ORDERED: diphenhydrAMINE 25MG CAP PO PRN (18:05)
[2023-09-29] MEDS ORDERED: IBUPROFEN 400MG TAB PO PRN (18:05)
[2023-09-29] MEDS ORDERED: traZODone 50 MG TAB PO PRN (18:05)
[2023-09-29] MEDS ORDERED: NICOTINE 21MG/24HR 1 EA TRANSDERMAL TD PRN (18:05)
[2023-09-29] MEDS ORDERED: MAALOX 30 ML SUSP *UDC PO PRN (18:05)
[2023-09-29] MEDS: LURASIDONE HCL 40MG TAB (LATUDA) PO SCH (19:19)
[2023-09-29] MEDS ORDERED: LURASIDONE HCL 40MG TAB (LATUDA) PO SCH (21:00)
[2023-09-29] MEDS: ADDERALL 5 MG TAB PO SCH (21:00)
[2023-09-29] MEDS: LITHIUM CARBONATE 150 MG CAP PO SCH (21:23)
[2023-09-29 23:32] VITALS: BP 142/81; TEMP 97.5; O2SAT 96
[2023-09-30] MEDS: LEVOTHYROXINE 25MCG TABLET (0.025MG) PO SCH (05:54)
[2023-09-30 06:34] VITALS: BP 133/69; TEMP 97.7; O2SAT 96
[2023-09-30] MEDS ORDERED: LEVOTHYROXINE 25MCG TABLET (0.025MG) PO SCH (09:00)
[2023-09-30] MEDS: VITAMIN D 1,000 INTERNATIONAL UNITS TABLET PO SCH (09:46)
[2023-09-30] MEDS: lamoTRIgine 100MG TAB PO SCH (09:47)
[2023-09-30] MEDS: amLODIPine 5 MG TAB PO SCH (09:47)
[2023-09-30] MEDS: ADDERALL 5 MG TAB PO SCH (09:47)
[2023-09-30 18:30] VITALS: BP 127/72; TEMP 99
[2023-10-01 06:44] VITALS: BP 142/67; TEMP 98.1; O2SAT 96
[2023-10-01 07:59] VITALS: BP 150/65; TEMP 98.1; O2SAT 96
[2023-10-01 16:38] VITALS: BP 138/80; TEMP 98.9; O2SAT 98
[2023-10-02 06:34] VITALS: BP 131/69; TEMP 97.6; O2SAT 99
[2023-10-02] MEDS: LITHIUM CARBONATE 150 MG CAP PO SCH (11:58)
[2023-10-02 16:49] VITALS: BP 130/78; TEMP 98.8; O2SAT 100
[2023-10-02] MEDS: ACETAMINOPHEN TAB 650MG DOSE (2X325MG) PO PRN (20:24)
[2023-10-03 06:17] VITALS: BP 116/62; TEMP 97.8; O2SAT 99
[2023-10-03 16:15] VITALS: BP 118/76; TEMP 98.3; O2SAT 100
[2023-10-04 06:13] VITALS: BP 160/80; TEMP 97.9; O2SAT 99
[2023-10-04 08:53] VITALS: BP 149/72
[2023-10-04] MEDS: ADDERALL 5 MG TAB PO SCH (14:53)
[2023-10-04 18:17] VITALS: BP 148/67; TEMP 98
[2023-10-04] MEDS: LITHIUM CARBONATE 300 MG CAP PO SCH (19:51)
[2023-10-05 06:33] VITALS: BP 125/67; TEMP 97.8; O2SAT 97
[2023-10-05 09:30] LABS: BILIRUBIN,TOTAL 0.6 MG/DL (0.3-1.2); CALCIUM LEVEL 10.1 MG/DL (8.3-10.6); CREATININE FOR GFR 1.04 MG/DL (0.55-1.30); POTASSIUM SERUM 4.1 MMOL/L (3.5-5.1); TOTAL PROTEIN 7.3 G/DL (5.7-8.2)
[2023-10-05 09:39] VITALS: BP 131/80
[2023-10-05] MEDS: lamoTRIgine 100MG TAB PO SCH (09:41)
[2023-10-05] MEDS: ADDERALL 5 MG TAB PO SCH (09:42)
[2023-10-05] MEDS: LITHIUM CARBONATE 150 MG CAP PO SCH (09:42)
[2023-10-05] MEDS: PILL CUTTER 1 EACH XX PRN (09:42)
[2023-10-05 18:58] VITALS: BP 147/73; TEMP 97.6
[2023-10-06 06:14] VITALS: BP 123/81; TEMP 98; O2SAT 100
[2023-10-06 09:20] VITALS: BP 141/65
[2023-10-06] MEDS: MOM 30ML SUSPENSION UDC PO PRN (11:46)
[2023-10-06 18:16] VITALS: BP 137/87; TEMP 98.1
[2023-10-06] MEDS: LURASIDONE HCL 40MG TAB (LATUDA) PO SCH (20:18)
[2023-10-06] MEDS: VIIBRYD 40 MG PO SCH (20:44)
[2023-10-07 06:15] VITALS: BP 123/59; TEMP 97.8; O2SAT 98
[2023-10-07 18:08] VITALS: BP 148/72; TEMP 97.4; O2SAT 100
[2023-10-08 06:46] VITALS: BP 121/73; TEMP 97.7; O2SAT 95
[2023-10-08 16:03] VITALS: BP 124/78; TEMP 98.1; O2SAT 100
[2023-10-08 19:55] VITALS: BP 167/74; TEMP 98.3; O2SAT 94
[2023-10-08] MEDS: LURASIDONE HCL 40MG TAB (LATUDA) PO SCH (21:48)
[2023-10-09 06:24] VITALS: BP_SYST 114; BP_SYST 123; BP_DIAS 52; BP_DIAS 64; TEMP 98.9; O2SAT 98
[2023-10-09 16:19] VITALS: BP 144/70; TEMP 98.7; O2SAT 99
[2023-10-10 06:55] VITALS: BP 108/49; TEMP 97.7; O2SAT 98
[2023-10-10 15:46] VITALS: BP 144/68; TEMP 98.8; O2SAT 98
[2023-10-11 06:36] VITALS: BP 137/65; TEMP 97.5; O2SAT 100
[2023-10-11 08:33] VITALS: BP 142/76
[2023-10-11] MEDS ORDERED: diphenhydrAMINE CREAM 30GM TOP PRN (17:35)
[2023-10-11 18:00] VITALS: BP 132/76; TEMP 98.9
[2023-10-11 21:45] VITALS: BP_SYST 134; BP_SYST 142; BP_SYST 146; BP_DIAS 74; BP_DIAS 76; BP_DIAS 78
[2023-10-12 06:12] VITALS: BP 144/83; TEMP 97.6; O2SAT 97
[2023-10-12 18:28] VITALS: BP 132/68; TEMP 98; O2SAT 99
[2023-10-12 20:56] VITALS: BP_SYST 134; BP_SYST 145; BP_SYST 147; BP_DIAS 62; BP_DIAS 70; BP_DIAS 72
[2023-10-13 06:19] VITALS: BP 149/66; TEMP 98.6; O2SAT 97
[2023-10-13] MEDS ORDERED: LATU40TA2 PO (07:45)
[2023-10-13] MEDS ORDERED: LITH300C PO (07:45)
[2023-10-13] MEDS ORDERED: LAMO200T3 PO (07:46)
[2023-10-13] MEDS ORDERED: Pill Cutter XX (07:46)
[2023-10-13] MEDS ORDERED: LAMO100T80 PO (07:46)
[2023-10-13 08:55] VITALS: BP 149/66
== END 2023-10-13 13:27 | disposition home or self-care (01) | DRG 885 ==
LOC: EDBD 09:50 → M ED 09:50 → M ED INP 18:05 → M PSY 21:37
PROVIDERS: ADMIT Student in an Organized Health Care Education/Training Program; ATTEND Student in an Organized Health Care Education/Training Program
DX: F31.30 Bipolar disorder, current episode depressed, mild or moderate severity, unspecified (principal); R45.851 Suicidal ideations; I10 Essential (primary) hypertension; E03.9 Hypothyroidism, unspecified; F90.9 Attention-deficit hyperactivity disorder, unspecified type; R26.89 Other abnormalities of gait and mobility; Z79.890 Hormone replacement therapy; Z79.899 Other long term (current) drug therapy; Z88.1 Allergy status to other antibiotic agents; Z88.2 Allergy status to sulfonamides; Z91.030 Bee allergy status; E55.9 Vitamin D deficiency, unspecified; Z91.51 Personal history of suicidal behavior; Z11.52 Encounter for screening for COVID-19; Z63.8 Other specified problems related to primary support group; S20.229A Contusion of unspecified back wall of thorax, initial encounter; W01.0XXA Fall on same level from slipping, tripping and stumbling without subsequent striking against object, initial encounter; Y92.232 Corridor of hospital as the place of occurrence of the external cause; Y93.9 Activity, unspecified; M47.814 Spondylosis without myelopathy or radiculopathy, thoracic region; Z95.0 Presence of cardiac pacemaker

== ENCOUNTER → 2023-11-15 | Outpatient (CLI) | payer MEDICARE, OTHER ==
[~2023-11-15] MED LIST changes: +ADDE10TA PO; +LAMO100T80 PO; +Pill Cutter XX; +VITA100054 PO
== END ==
LOC: M PLAIMG 09:11
PROVIDERS: ATTEND Internal Medicine
DX: G31.84 Mild cognitive impairment of uncertain or unknown etiology (principal)

== ENCOUNTER → 2023-11-22 | Outpatient (CLI) | payer MEDICARE, OTHER ==
[2023-11-22 16:00] LABS: ALBUMIN 3.6 G/DL (3.2-5.2); BILIRUBIN,TOTAL 0.5 MG/DL (0.3-1.2); CALCIUM LEVEL 9.1 MG/DL (8.3-10.6); CREATININE FOR GFR 1.02 MG/DL (0.55-1.30); GLOMERULAR FILTRATION RATE 55.2 (>32); POTASSIUM SERUM 4.5 MMOL/L (3.5-5.1); TOTAL PROTEIN 6.6 G/DL (5.7-8.2)
[2023-11-22 16:02] LABS: TOTAL 25(OH) VITAMIN D 34.8 NG/ML (20.0-100.0)
== END ==
LOC: M LAB 13:56
PROVIDERS: ATTEND Nurse Practitioner Psychiatric/Mental Health
DX: F31.9 Bipolar disorder, unspecified (principal)

== ENCOUNTER → 2023-11-30 | Outpatient (REF) | payer MEDICARE, OTHER | LOC: M LAB REF 16:11 | PROVIDERS: ATTEND Internal Medicine | DX: R30.0 Dysuria (principal); N18.32 Chronic kidney disease, stage 3b ==

== ENCOUNTER 2023-12-04 09:19 | Emergency (ER) | payer MEDICARE, OTHER ==
[~2023-12-04] VITALS: Ht 154.9 cm; Wt 62.8 kg
[2023-12-04] MEDS: LIDOCAINE 2% 5ML JELLY UROJET TOP ONE (10:00)
[2023-12-04 10:30] LABS: BASO # 0.1 10^3/uL (0.0-0.2); EOS # 0.1 10^3/uL (0.0-0.5); EOS % 0.6 % (0.0-3.0); HEMATOCRIT 38.1 % (36.0-47.0); LYMPH # 1.2 10^3/uL (1.5-5.0); LYMPH % 14.7 % (24.0-44.0); MEAN CORPUSCULAR HEMOGLOBIN 31.2 pg (27.0-33.0); MEAN CORPUSCULAR HGB CONC 31.5 g/dl (32.0-36.5); MONO # 0.8 10^3/uL (0.0-0.8); MONO % 10.1 % (2.0-8.0); NEUTROPHILS # 6.1 10^3/uL (1.5-8.5); NEUTROPHILS % 73.5 % (36.0-66.0); PLATELET COUNT, AUTOMATED 248 10^3/uL (150-450); RED BLOOD COUNT 3.85 10^6/uL (4.00-5.40); WHITE BLOOD COUNT 8.4 10^3/uL (4.0-10.0)
[2023-12-04 10:55] LABS: ALBUMIN 3.9 G/DL (3.2-5.2); ALKALINE PHOSPHATASE 69 U/L (46-116); ALT/SGPT 19 U/L (7.0-40); AST/SGOT 13 U/L (<34); BILIRUBIN,TOTAL 0.4 MG/DL (0.3-1.2); BLOOD UREA NITROGEN 21 MG/DL (9-23); CARBON DIOXIDE LEVEL 28 MMOL/L (20-31); CHLORIDE LEVEL 107 MMOL/L (98-107); CREATININE FOR GFR 1.13 MG/DL (0.55-1.30); GLOMERULAR FILTRATION RATE 49.1 (>32); GLUCOSE, FASTING 98 MG/DL (74-106); POTASSIUM SERUM 4.3 MMOL/L (3.5-5.1); SODIUM LEVEL 140 MMOL/L (136-145); TOTAL PROTEIN 6.9 G/DL (5.7-8.2)
[2023-12-04 10:57] LABS: VITAMIN B12 LEVEL 352 PG/ML (211-911)
[2023-12-04 11:07] LABS: FOLATE > 24.00 NG/ML (>5.4)
[2023-12-04 13:45] VITALS: BP 158/75; O2SAT 97
[2023-12-04 14:07] VITALS: TEMP 97.9
== END 2023-12-04 14:10 | disposition home or self-care (01) ==
LOC: M ED 09:19
DX: S01.01XA Laceration without foreign body of scalp, initial encounter (principal); W19.XXXA Unspecified fall, initial encounter; I45.10 Unspecified right bundle-branch block; I49.8 Other specified cardiac arrhythmias; F90.9 Attention-deficit hyperactivity disorder, unspecified type; F41.9 Anxiety disorder, unspecified; E03.9 Hypothyroidism, unspecified; I10 Essential (primary) hypertension; F32.A Depression, unspecified; Y92.009 Unspecified place in unspecified non-institutional (private) residence as the place of occurrence of the external cause; Y93.89 Activity, other specified; Y99.9 Unspecified external cause status; Z88.2 Allergy status to sulfonamides; Z91.030 Bee allergy status; Z88.8 Allergy status to other drugs, medicaments and biological substances; Z79.899 Other long term (current) drug therapy; Z79.83 Long term (current) use of bisphosphonates

== ENCOUNTER → 2023-12-23 | Outpatient (REF) | payer MEDICARE, OTHER | LOC: M LAB REF 12:42 | PROVIDERS: ATTEND Physician Assistant Medical | DX: N39.0 Urinary tract infection, site not specified (principal) ==

== ENCOUNTER 2024-01-08 17:49 | Emergency (ER) | payer MEDICARE, OTHER ==
[~2024-01-08] VITALS: Ht 154.9 cm; Wt 57.7 kg
[2024-01-08 19:08] LABS: BASO # 0.1 10^3/uL (0.0-0.2); EOS # 0.2 10^3/uL (0.0-0.5); EOS % 1.9 % (0.0-3.0); HEMOGLOBIN 12.4 g/dl (12.0-15.5); LYMPH % 32.3 % (24.0-44.0); MEAN CORPUSCULAR HEMOGLOBIN 31.8 pg (27.0-33.0); MEAN CORPUSCULAR HGB CONC 31.8 g/dl (32.0-36.5); MONO # 1.2 10^3/uL (0.0-0.8); MONO % 12.8 % (2.0-8.0); NEUTROPHILS # 4.9 10^3/uL (1.5-8.5); NEUTROPHILS % 51.7 % (36.0-66.0); PLATELET COUNT, AUTOMATED 238 10^3/uL (150-450); WHITE BLOOD COUNT 9.4 10^3/uL (4.0-10.0)
[2024-01-08 19:34] LABS: CALCIUM LEVEL 9.3 MG/DL (8.3-10.6); CREATININE FOR GFR 1.15 MG/DL (0.55-1.30); GLOMERULAR FILTRATION RATE 48.1 (>32); POTASSIUM SERUM 4.7 MMOL/L (3.5-5.1)
[2024-01-08 19:36] LABS: LITHIUM LEVEL 0.48 MMOL/L (1.0-1.20)
[2024-01-08 21:49] VITALS: BP 148/76; TEMP 98; O2SAT 98
== END 2024-01-08 22:28 | disposition home or self-care (01) ==
LOC: EDBD 17:49 → M ED 17:49
DX: S09.90XA Unspecified injury of head, initial encounter (principal); W22.09XA Striking against other stationary object, initial encounter; I49.8 Other specified cardiac arrhythmias; I45.10 Unspecified right bundle-branch block; I10 Essential (primary) hypertension; F90.9 Attention-deficit hyperactivity disorder, unspecified type; F31.9 Bipolar disorder, unspecified; E55.9 Vitamin D deficiency, unspecified; Z88.2 Allergy status to sulfonamides; Z91.030 Bee allergy status; Z88.8 Allergy status to other drugs, medicaments and biological substances; Y92.009 Unspecified place in unspecified non-institutional (private) residence as the place of occurrence of the external cause; Y93.89 Activity, other specified; Y99.9 Unspecified external cause status; Z95.0 Presence of cardiac pacemaker; Z79.899 Other long term (current) drug therapy

== ENCOUNTER → 2024-01-25 | Outpatient (CLI) | payer MEDICARE, OTHER | LOC: M WUC 14:23 | PROVIDERS: ATTEND Nurse Practitioner Adult Health | DX: R29.6 Repeated falls (principal); N76.0 Acute vaginitis; S42.292A Other displaced fracture of upper end of left humerus, initial encounter for closed fracture; X58.XXXA Exposure to other specified factors, initial encounter; Y92.9 Unspecified place or not applicable ==

== ENCOUNTER → 2024-03-03 | Outpatient (REF) | payer MEDICARE, OTHER ==
[~2024-03-03] MED LIST changes: +LITH450T11 PO; -LITH45TASA PO
[2024-03-03 13:22] LABS: PERCENT SATURATION 18.6 % (13.2-45.0)
[2024-03-03 13:23] LABS: LITHIUM LEVEL 0.46 MMOL/L (1.0-1.20)
[2024-03-03 13:25] LABS: FERRITIN 40.6 NG/ML (7.3-270.7)
== END ==
LOC: M LAB REF 12:57
PROVIDERS: ATTEND Internal Medicine
DX: D64.9 Anemia, unspecified (principal); F31.32 Bipolar disorder, current episode depressed, moderate

== ENCOUNTER 2024-03-25 14:10 | Inpatient (IN) | payer MEDICARE, OTHER ==
[~2024-03-25] VITALS: Ht 157.5 cm; Wt 68.9 kg
[2024-03-25 15:06] LABS: BASO # 0.1 10^3/uL (0.0-0.2); BASO % 0.6 % (0.0-1.0); EOS # 0.1 10^3/uL (0.0-0.5); EOS % 0.6 % (0.0-3.0); HEMATOCRIT 38.3 % (36.0-47.0); HEMOGLOBIN 11.9 g/dl (12.0-15.5); LYMPH # 1.2 10^3/uL (1.5-5.0); LYMPH % 11.6 % (24.0-44.0); MEAN CORPUSCULAR HEMOGLOBIN 31.1 pg (27.0-33.0); MEAN CORPUSCULAR HGB CONC 31.1 g/dl (32.0-36.5); MONO # 1.1 10^3/uL (0.0-0.8); NEUTROPHILS # 8.3 10^3/uL (1.5-8.5); PLATELET COUNT, AUTOMATED 268 10^3/uL (150-450); RED BLOOD COUNT 3.83 10^6/uL (4.00-5.40); WHITE BLOOD COUNT 10.7 10^3/uL (4.0-10.0)
[2024-03-25] MEDS: ACETAMINOPHEN 325 MG TAB PO ONE (15:06)
[2024-03-25] MEDS ORDERED: ISOVUE-370 76% 100ML VIAL As Ordered ONE (15:07)
[2024-03-25 15:18] LABS: INR 0.9; PARTIAL THROMBOPLASTIN TIME 26.1 SECONDS (24.8-34.2); PROTHROMBIN TIME 12.5 SECONDS (12.5-14.5)
[2024-03-25 15:29] LABS: ALBUMIN 3.7 G/DL (3.2-5.2); BILIRUBIN,DIRECT 0.2 MG/DL (<0.4); BILIRUBIN,TOTAL 0.6 MG/DL (0.3-1.2); TOTAL PROTEIN 7.1 G/DL (5.7-8.2)
[2024-03-25] MEDS ORDERED: LAMO100T80 PO (16:24)
[2024-03-25] MEDS ORDERED: OXYB5TAB14 PO (16:24)
[2024-03-25] MEDS ORDERED: HOME MED LIST COMPLETE! XX SCH ×2 (16:25→18:25)
[2024-03-25] MEDS ORDERED: VILAZODONE 20MG TABLET (VIIBRYD) PO SCH (18:00)
[2024-03-25] MEDS ORDERED: oxyBUTYnin 5 MG TAB PO PRN (18:15)
[2024-03-25] MEDS ORDERED: PERCOCET 5MG/325MG TAB PO PRN (18:15)
[2024-03-25] MEDS: LURASIDONE HCL 40MG TAB (LATUDA) PO SCH (18:58)
[2024-03-25 19:45] LABS: INR 0.93; PROTHROMBIN TIME 12.8 SECONDS (12.5-14.5)
[2024-03-25] MEDS: LITHIUM CARBONATE 150 MG CAP PO SCH (20:57)
[2024-03-25] MEDS: KETOROLAC 30 MG/ML 1ML VIAL IV SCH (20:57)
[2024-03-25 21:12] VITALS: BP 133/66; TEMP 97.7; O2SAT 98
[2024-03-25 23:34] VITALS: O2SAT 96
[2024-03-26 04:00] VITALS: BP 108/76; TEMP 97.7; O2SAT 94
[2024-03-26 06:07] LABS: HEMOGLOBIN 12.3 g/dl (12.0-15.5); MEAN CORPUSCULAR HEMOGLOBIN 31.4 pg (27.0-33.0); MEAN CORPUSCULAR HGB CONC 31.5 g/dl (32.0-36.5); MEAN CORPUSCULAR VOLUME 99.5 fl (80.0-96.0); PLATELET COUNT, AUTOMATED 256 10^3/uL (150-450); RED BLOOD COUNT 3.92 10^6/uL (4.00-5.40); WHITE BLOOD COUNT 10.7 10^3/uL (4.0-10.0)
[2024-03-26] MEDS: LEVOTHYROXINE 25MCG TABLET (0.025MG) PO SCH (06:07)
[2024-03-26 06:33] LABS: ALBUMIN 3.4 G/DL (3.2-5.2); BILIRUBIN,TOTAL 0.7 MG/DL (0.3-1.2); CALCIUM LEVEL 10.1 MG/DL (8.3-10.6); CREATININE FOR GFR 1.13 MG/DL (0.55-1.30); GLOMERULAR FILTRATION RATE 49.1 (>32); TOTAL PROTEIN 6.7 G/DL (5.7-8.2)
[2024-03-26] MEDS: lamoTRIgine 100MG TAB PO SCH (08:22)
[2024-03-26] MEDS: lamoTRIgine 25MG TAB PO SCH (08:22)
[2024-03-26] MEDS: ADDERALL 5 MG TAB PO SCH ×2 (08:22→15:46)
[2024-03-26] MEDS: ENOXAPARIN 40MG/0.4ML SYRINGE (J1650 PER 10MG) SC SCH (08:23)
[2024-03-26] MEDS: amLODIPine 5 MG TAB PO SCH (08:25)
[2024-03-26] MEDS: PERCOCET 5MG/325MG TAB PO PRN (08:45)
[2024-03-26 12:00] VITALS: BP 119/74; TEMP 98.1; O2SAT 96
[2024-03-26 20:00] VITALS: BP 154/78; TEMP 98.6; O2SAT 97
[2024-03-26] MEDS: LURASIDONE HCL 40MG TAB (LATUDA) PO SCH (20:28)
[2024-03-27 04:00] VITALS: BP 129/67; TEMP 97.5; O2SAT 97
[2024-03-27 06:10] LABS: HEMATOCRIT 35.4 % (36.0-47.0); HEMOGLOBIN 10.8 g/dl (12.0-15.5); MEAN CORPUSCULAR HEMOGLOBIN 30.8 pg (27.0-33.0); MEAN CORPUSCULAR HGB CONC 30.5 g/dl (32.0-36.5); MEAN CORPUSCULAR VOLUME 100.9 fl (80.0-96.0); PLATELET COUNT, AUTOMATED 248 10^3/uL (150-450); RED BLOOD COUNT 3.51 10^6/uL (4.00-5.40); WHITE BLOOD COUNT 8.6 10^3/uL (4.0-10.0)
[2024-03-27 06:38] LABS: ALBUMIN 2.8 G/DL (3.2-5.2); BILIRUBIN,TOTAL 0.5 MG/DL (0.3-1.2); CALCIUM LEVEL 9.1 MG/DL (8.3-10.6); CREATININE FOR GFR 1.27 MG/DL (0.55-1.30); GLOMERULAR FILTRATION RATE 42.9 (>32); POTASSIUM SERUM 3.8 MMOL/L (3.5-5.1)
[2024-03-27] MEDS: UNRESOLVED PATIENT OWN MED ORDER XX SCH (09:00)
[2024-03-27] MEDS: VILAZODONE 40 MG PO SCH (09:00)
[2024-03-27 11:45] VITALS: BP 141/80; TEMP 98.1; O2SAT 98
[2024-03-27 12:00] VITALS: BP 135/79; TEMP 98.2; O2SAT 97
[2024-03-27 20:18] VITALS: BP 132/77; TEMP 97.5; O2SAT 97
[2024-03-28 03:37] VITALS: BP 116/59; TEMP 97; O2SAT 98
[2024-03-28 05:51] LABS: HEMOGLOBIN 10.7 g/dl (12.0-15.5); MEAN CORPUSCULAR HEMOGLOBIN 31.4 pg (27.0-33.0); MEAN CORPUSCULAR HGB CONC 31.5 g/dl (32.0-36.5); MEAN CORPUSCULAR VOLUME 99.7 fl (80.0-96.0); PLATELET COUNT, AUTOMATED 247 10^3/uL (150-450); RED BLOOD COUNT 3.41 10^6/uL (4.00-5.40); WHITE BLOOD COUNT 8.4 10^3/uL (4.0-10.0)
[2024-03-28 06:16] LABS: ALBUMIN 2.7 G/DL (3.2-5.2); BILIRUBIN,TOTAL 0.4 MG/DL (0.3-1.2); CALCIUM LEVEL 8.7 MG/DL (8.3-10.6); CREATININE FOR GFR 1.31 MG/DL (0.55-1.30); GLOMERULAR FILTRATION RATE 41.4 (>32); POTASSIUM SERUM 3.7 MMOL/L (3.5-5.1); TOTAL PROTEIN 5.7 G/DL (5.7-8.2)
[2024-03-28 12:00] VITALS: BP 131/67; TEMP 97.9; O2SAT 98
[2024-03-28] MEDS: VILAZODONE 40 MG PO SCH (16:10)
[2024-03-28 19:46] VITALS: BP 132/65; TEMP 98.4; O2SAT 97
[2024-03-29 04:07] VITALS: BP 112/61; TEMP 97.5; O2SAT 98
[2024-03-29 08:00] VITALS: BP 114/62; TEMP 97.9; O2SAT 98
[2024-03-29 09:48] LABS: BASO # 0.1 10^3/uL (0.0-0.2); BASO % 0.5 % (0.0-1.0); EOS # 0.5 10^3/uL (0.0-0.5); EOS % 4.7 % (0.0-3.0); HEMATOCRIT 37.5 % (36.0-47.0); HEMOGLOBIN 11.5 g/dl (12.0-15.5); LYMPH # 2.1 10^3/uL (1.5-5.0); LYMPH % 21.6 % (24.0-44.0); MEAN CORPUSCULAR HEMOGLOBIN 30.6 pg (27.0-33.0); MEAN CORPUSCULAR HGB CONC 30.7 g/dl (32.0-36.5); MEAN CORPUSCULAR VOLUME 99.7 fl (80.0-96.0); MONO # 0.8 10^3/uL (0.0-0.8); MONO % 8.5 % (2.0-8.0); NEUTROPHILS # 6.2 10^3/uL (1.5-8.5); NEUTROPHILS % 64.4 % (36.0-66.0); PLATELET COUNT, AUTOMATED 288 10^3/uL (150-450); RED BLOOD COUNT 3.76 10^6/uL (4.00-5.40); WHITE BLOOD COUNT 9.7 10^3/uL (4.0-10.0)
[2024-03-29 10:10] LABS: CALCIUM LEVEL 9.3 MG/DL (8.3-10.6); CREATININE FOR GFR 1.18 MG/DL (0.55-1.30); GLOMERULAR FILTRATION RATE 46.7 (>32); MAGNESIUM LEVEL 2.6 MG/DL (1.8-2.4); POTASSIUM SERUM 3.8 MMOL/L (3.5-5.1)
[2024-03-29] MEDS: LIDOCAINE 5% (LIDODERM) PATCH TD SCH (11:19)
[2024-03-29 12:00] VITALS: BP_SYST 124; BP_SYST 132; BP_DIAS 64; BP_DIAS 68; TEMP 97.7; TEMP 97.9; O2SAT 95
[2024-03-29 21:00] VITALS: BP 128/63; TEMP 98.1; O2SAT 94
[2024-03-30 03:30] VITALS: BP 130/63; TEMP 97.5; O2SAT 93
[2024-03-30 12:00] VITALS: BP 137/65; TEMP 98.2; O2SAT 94
[2024-03-30 21:44] VITALS: BP 131/64; TEMP 97.9; O2SAT 94
[2024-03-31 03:20] VITALS: BP 121/58; TEMP 97.5; O2SAT 95
[2024-03-31 05:51] LABS: BASO # 0.1 10^3/uL (0.0-0.2); BASO % 0.8 % (0.0-1.0); EOS # 0.4 10^3/uL (0.0-0.5); EOS % 5.1 % (0.0-3.0); HEMATOCRIT 34.3 % (36.0-47.0); HEMOGLOBIN 10.6 g/dl (12.0-15.5); LYMPH # 2.1 10^3/uL (1.5-5.0); LYMPH % 24.4 % (24.0-44.0); MEAN CORPUSCULAR HEMOGLOBIN 31.2 pg (27.0-33.0); MEAN CORPUSCULAR HGB CONC 30.9 g/dl (32.0-36.5); MEAN CORPUSCULAR VOLUME 100.9 fl (80.0-96.0); MONO % 11.1 % (2.0-8.0); NEUTROPHILS % 58.4 % (36.0-66.0); PLATELET COUNT, AUTOMATED 296 10^3/uL (150-450); WHITE BLOOD COUNT 8.6 10^3/uL (4.0-10.0)
[2024-03-31 06:21] LABS: CALCIUM LEVEL 9.1 MG/DL (8.3-10.6); CREATININE FOR GFR 1.03 MG/DL (0.55-1.30); GLOMERULAR FILTRATION RATE 54.6 (>32); MAGNESIUM LEVEL 2.4 MG/DL (1.8-2.4); POTASSIUM SERUM 3.9 MMOL/L (3.5-5.1)
[2024-03-31 06:22] LABS: C REACTIVE PROTEIN QUANTITATIV 0.6 MG/DL (<1.0)
[2024-03-31 08:03] VITALS: BP 124/62; O2SAT 94
[2024-03-31 12:00] VITALS: BP 140/79; TEMP 97.9; O2SAT 97
[2024-03-31 12:20] VITALS: BP 134/64; TEMP 97.7; O2SAT 96
[2024-03-31 20:35] VITALS: BP 130/65; TEMP 97.7; O2SAT 95
[2024-03-31] MEDS: MIRALAX *UNIT DOSE* 17GM PACKET PO PRN (21:18)
[2024-04-01 03:55] VITALS: BP 135/70; TEMP 97.9; O2SAT 94
[2024-04-01] MEDS: DOCUSATE SODIUM 100MG CAPSULE PO SCH (08:24)
[2024-04-01 12:00] VITALS: BP 154/77; TEMP 97; O2SAT 95
[2024-04-01 20:14] VITALS: BP 131/72; TEMP 97.7; O2SAT 97
[2024-04-02 04:10] VITALS: BP 136/74; TEMP 97.5; O2SAT 95
[2024-04-02] MEDS: ACETAMINOPHEN 325 MG TAB PO PRN (07:01)
[2024-04-02 12:00] VITALS: BP 151/78; TEMP 96.8; O2SAT 96
[2024-04-02 19:38] VITALS: BP 151/78; TEMP 98.1; O2SAT 96
[2024-04-03 04:00] VITALS: BP 151/79; TEMP 97.5; O2SAT 93
[2024-04-03 12:00] VITALS: BP 123/66; TEMP 98.4; O2SAT 96
[2024-04-03 20:40] VITALS: BP 143/82; TEMP 98.2; O2SAT 95
[2024-04-04 04:00] VITALS: BP 145/71; TEMP 98.1; O2SAT 94
[2024-04-04 08:36] VITALS: BP 143/72
[2024-04-04] MEDS ORDERED: ACET32TAB PO (09:06)
[2024-04-04] MEDS ORDERED: LIDO5TD TD (09:06)
[2024-04-04] MEDS ORDERED: MIRA33506 PO (09:06)
[2024-04-04] MEDS ORDERED: SENN-186 PO (09:07)
== END 2024-04-04 12:02 | DRG 200 ==
LOC: M ED 14:10 → M ED INP 18:15 → M MSPAV 21:12
PROVIDERS: ADMIT Internal Medicine; ATTEND Student in an Organized Health Care Education/Training Program
DX: S27.0XXA Traumatic pneumothorax, initial encounter (principal); J94.8 Other specified pleural conditions; S22.41XA Multiple fractures of ribs, right side, initial encounter for closed fracture; J98.11 Atelectasis; I10 Essential (primary) hypertension; E03.9 Hypothyroidism, unspecified; F32.A Depression, unspecified; F31.9 Bipolar disorder, unspecified; E55.9 Vitamin D deficiency, unspecified; F90.9 Attention-deficit hyperactivity disorder, unspecified type; W18.30XA Fall on same level, unspecified, initial encounter; Y92.009 Unspecified place in unspecified non-institutional (private) residence as the place of occurrence of the external cause; Z85.828 Personal history of other malignant neoplasm of skin; R29.6 Repeated falls; Z88.2 Allergy status to sulfonamides; Z91.030 Bee allergy status; Z88.8 Allergy status to other drugs, medicaments and biological substances; Z79.899 Other long term (current) drug therapy

== ENCOUNTER → 2024-04-05 | Outpatient (REF) ==
[~2024-04-05] MED LIST changes: +ACET32TAB PO; +LIDO5TD TD; +MIRA33506 PO; +OXYB5TAB14 PO; +SENN-186 PO
[2024-04-05 08:53] LABS: HEMATOCRIT 41.8 % (36.0-47.0); HEMOGLOBIN 12.5 g/dl (12.0-15.5); MEAN CORPUSCULAR HEMOGLOBIN 31.5 pg (27.0-33.0); MEAN CORPUSCULAR HGB CONC 29.9 g/dl (32.0-36.5); MEAN CORPUSCULAR VOLUME 105.3 fl (80.0-96.0); PLATELET COUNT, AUTOMATED 251 10^3/uL (150-450); RED BLOOD COUNT 3.97 10^6/uL (4.00-5.40)
[2024-04-05 12:37] LABS: CALCIUM LEVEL 9.5 MG/DL (8.3-10.6); CREATININE FOR GFR 1.04 MG/DL (0.55-1.30); POTASSIUM SERUM 4.7 MMOL/L (3.5-5.1)
== END ==
PROVIDERS: ATTEND Internal Medicine
DX: F31.9 Bipolar disorder, unspecified (principal)

== ENCOUNTER → 2024-04-12 | Outpatient (REF) ==
[2024-04-12 11:24] LABS: HEMATOCRIT 37.4 % (36.0-47.0); HEMOGLOBIN 11.6 g/dl (12.0-15.5); MEAN CORPUSCULAR HEMOGLOBIN 31.5 pg (27.0-33.0); MEAN CORPUSCULAR VOLUME 101.6 fl (80.0-96.0); PLATELET COUNT, AUTOMATED 327 10^3/uL (150-450); RED BLOOD COUNT 3.68 10^6/uL (4.00-5.40); WHITE BLOOD COUNT 8.7 10^3/uL (4.0-10.0)
[2024-04-12 11:57] LABS: CALCIUM LEVEL 9.6 MG/DL (8.3-10.6); CREATININE FOR GFR 1.22 MG/DL (0.55-1.30); GLOMERULAR FILTRATION RATE 44.9 (>32); POTASSIUM SERUM 4.5 MMOL/L (3.5-5.1)
== END ==
PROVIDERS: ATTEND Internal Medicine
DX: F31.9 Bipolar disorder, unspecified (principal)

== ENCOUNTER → 2024-04-17 | Outpatient (REF) ==
[2024-04-17 09:32] LABS: HEMATOCRIT 40.5 % (36.0-47.0); HEMOGLOBIN 12.2 g/dl (12.0-15.5); MEAN CORPUSCULAR HEMOGLOBIN 30.5 pg (27.0-33.0); MEAN CORPUSCULAR HGB CONC 30.1 g/dl (32.0-36.5); MEAN CORPUSCULAR VOLUME 101.3 fl (80.0-96.0); PLATELET COUNT, AUTOMATED 235 10^3/uL (150-450); WHITE BLOOD COUNT 7.9 10^3/uL (4.0-10.0)
[2024-04-17 09:59] LABS: CALCIUM LEVEL 9.3 MG/DL (8.3-10.6); CREATININE FOR GFR 1.13 MG/DL (0.55-1.30); GLOMERULAR FILTRATION RATE 49.1 (>32); POTASSIUM SERUM 4.5 MMOL/L (3.5-5.1); THYROID STIMULATING HORMONE 1.775 uIU/ML (0.55-4.78)
== END ==
PROVIDERS: ATTEND Physician Assistant
DX: E03.9 Hypothyroidism, unspecified (principal)

== ENCOUNTER → 2024-04-24 | Outpatient (REF) ==
[2024-04-24 19:48] LABS: HEMATOCRIT 39.3 % (36.0-47.0); HEMOGLOBIN 12.3 g/dl (12.0-15.5); MEAN CORPUSCULAR HEMOGLOBIN 31.6 pg (27.0-33.0); MEAN CORPUSCULAR HGB CONC 31.3 g/dl (32.0-36.5); PLATELET COUNT, AUTOMATED 278 10^3/uL (150-450); RED BLOOD COUNT 3.89 10^6/uL (4.00-5.40); WHITE BLOOD COUNT 11.1 10^3/uL (4.0-10.0)
[2024-04-24 20:04] LABS: CALCIUM LEVEL 9.8 MG/DL (8.3-10.6); CREATININE FOR GFR 1.52 MG/DL (0.55-1.30); GLOMERULAR FILTRATION RATE 34.9 (>32); POTASSIUM SERUM 4.5 MMOL/L (3.5-5.1)
[2024-04-24 20:05] LABS: THYROXINE (T4) 8.3 UG/DL (4.5-10.9)
[2024-04-24 20:06] LABS: THYROID STIMULATING HORMONE 1.109 uIU/ML (0.55-4.78)
== END ==
PROVIDERS: ATTEND Physician Assistant
DX: H53.2 Diplopia (principal)

== ENCOUNTER → 2024-04-26 | Outpatient (REF) ==
[2024-04-26 10:01] LABS: HEMATOCRIT 39.8 % (36.0-47.0); MEAN CORPUSCULAR HEMOGLOBIN 30.7 pg (27.0-33.0); MEAN CORPUSCULAR HGB CONC 30.2 g/dl (32.0-36.5); MEAN CORPUSCULAR VOLUME 101.8 fl (80.0-96.0); PLATELET COUNT, AUTOMATED 271 10^3/uL (150-450); RED BLOOD COUNT 3.91 10^6/uL (4.00-5.40); WHITE BLOOD COUNT 8.5 10^3/uL (4.0-10.0)
[2024-04-26 10:28] LABS: CALCIUM LEVEL 10.1 MG/DL (8.3-10.6); CREATININE FOR GFR 1.22 MG/DL (0.55-1.30); GLOMERULAR FILTRATION RATE 44.9 (>32); POTASSIUM SERUM 4.4 MMOL/L (3.5-5.1)
== END ==
PROVIDERS: ATTEND Physician Assistant
DX: R42 Dizziness and giddiness (principal)

== ENCOUNTER → 2024-04-28 | Outpatient (REF) | payer MEDICARE, OTHER | LOC: M PLAIMG 10:13 → EDSTATUS 10:30 | PROVIDERS: ATTEND Physician Assistant | DX: H53.2 Diplopia (principal) ==

== ENCOUNTER → 2024-05-01 | Outpatient (REF) ==
[2024-05-01 10:17] LABS: HEMATOCRIT 39.8 % (36.0-47.0); HEMOGLOBIN 12.2 g/dl (12.0-15.5); MEAN CORPUSCULAR HEMOGLOBIN 31.3 pg (27.0-33.0); MEAN CORPUSCULAR HGB CONC 30.7 g/dl (32.0-36.5); MEAN CORPUSCULAR VOLUME 102.1 fl (80.0-96.0); PLATELET COUNT, AUTOMATED 303 10^3/uL (150-450); WHITE BLOOD COUNT 9.6 10^3/uL (4.0-10.0)
[2024-05-01 10:50] LABS: CALCIUM LEVEL 9.8 MG/DL (8.3-10.6); CREATININE FOR GFR 1.22 MG/DL (0.55-1.30); GLOMERULAR FILTRATION RATE 44.9 (>32); LITHIUM LEVEL 0.6 MMOL/L (1.0-1.20); THYROID STIMULATING HORMONE 1.721 uIU/ML (0.55-4.78); TOTAL 25(OH) VITAMIN D 22.6 NG/ML (20.0-100.0)
== END ==
PROVIDERS: ATTEND Physician Assistant
DX: N18.9 Chronic kidney disease, unspecified (principal)

== ENCOUNTER → 2024-05-08 | Outpatient (REF) ==
[2024-05-08 10:28] LABS: HEMATOCRIT 40.8 % (36.0-47.0); HEMOGLOBIN 12.4 g/dl (12.0-15.5); MEAN CORPUSCULAR HEMOGLOBIN 30.5 pg (27.0-33.0); MEAN CORPUSCULAR HGB CONC 30.4 g/dl (32.0-36.5); MEAN CORPUSCULAR VOLUME 100.2 fl (80.0-96.0); PLATELET COUNT, AUTOMATED 323 10^3/uL (150-450); RED BLOOD COUNT 4.07 10^6/uL (4.00-5.40)
[2024-05-08 10:54] LABS: CALCIUM LEVEL 9.8 MG/DL (8.3-10.6); CREATININE FOR GFR 1.14 MG/DL (0.55-1.30); GLOMERULAR FILTRATION RATE 48.6 (>32); POTASSIUM SERUM 4.5 MMOL/L (3.5-5.1)
== END ==
PROVIDERS: ATTEND Internal Medicine
DX: F31.9 Bipolar disorder, unspecified (principal)

== ENCOUNTER 2024-05-22 16:50 | Emergency (ER) | payer MEDICARE, OTHER ==
[~2024-05-22] VITALS: Ht 154.9 cm; Wt 62.2 kg
[2024-05-22 17:06] VITALS: TEMP 98.5
[2024-05-22 18:30] VITALS: BP 154/76; O2SAT 95
[2024-05-22] MEDS ORDERED: SENN-85 PO (19:36)
[2024-05-22] MEDS ORDERED: ACET-907 PO (19:41)
[2024-05-22] MEDS ORDERED: HOME MED LIST COMPLETE! XX SCH (19:45)
[2024-05-22] MEDS: ACETAMINOPHEN 325 MG TAB PO ONE (20:34)
== END 2024-05-22 23:20 | disposition home or self-care (01) ==
LOC: EDBD 16:50 → M ED 16:50
DX: S50.02XA Contusion of left elbow, initial encounter (principal); R26.81 Unsteadiness on feet; Y92.019 Unspecified place in single-family (private) house as the place of occurrence of the external cause; Y93.9 Activity, unspecified; Y99.9 Unspecified external cause status; I10 Essential (primary) hypertension; E03.9 Hypothyroidism, unspecified; Z88.2 Allergy status to sulfonamides; Z88.1 Allergy status to other antibiotic agents; Z91.030 Bee allergy status; Z79.1 Long term (current) use of non-steroidal anti-inflammatories (NSAID); Z79.899 Other long term (current) drug therapy

== ENCOUNTER → 2024-06-01 | Outpatient (REF) | payer MEDICARE, OTHER ==
[~2024-06-01] MED LIST changes: +ACET-907 PO; +SENN-85 PO
== END ==
LOC: M PLAIMG 12:33 → EDSTATUS 13:30
PROVIDERS: ATTEND Physician Assistant
DX: S42.232S 3-part fracture of surgical neck of left humerus, sequela (principal); M25.512 Pain in left shoulder

== ENCOUNTER → 2024-06-05 | Outpatient (REF) ==
[2024-06-05 10:56] LABS: BASO # 0.1 10^3/uL (0.0-0.2); EOS # 0.1 10^3/uL (0.0-0.5); EOS % 0.9 % (0.0-3.0); HEMATOCRIT 36.3 % (36.0-47.0); HEMOGLOBIN 11.3 g/dl (12.0-15.5); LYMPH # 1.4 10^3/uL (1.5-5.0); LYMPH % 14.8 % (24.0-44.0); MEAN CORPUSCULAR HEMOGLOBIN 30.6 pg (27.0-33.0); MEAN CORPUSCULAR HGB CONC 31.1 g/dl (32.0-36.5); MEAN CORPUSCULAR VOLUME 98.4 fl (80.0-96.0); MONO # 0.5 10^3/uL (0.0-0.8); MONO % 5.9 % (2.0-8.0); NEUTROPHILS # 7.1 10^3/uL (1.5-8.5); NEUTROPHILS % 76.9 % (36.0-66.0); PLATELET COUNT, AUTOMATED 357 10^3/uL (150-450); RED BLOOD COUNT 3.69 10^6/uL (4.00-5.40); WHITE BLOOD COUNT 9.2 10^3/uL (4.0-10.0)
[2024-06-05 11:05] LABS: ALBUMIN 3.5 G/DL (3.2-5.2); ALKALINE PHOSPHATASE 90 U/L (35-104); ALT/SGPT 13 U/L (7.0-40); AST/SGOT 13 U/L (<34); BILIRUBIN,DIRECT < 0.1 MG/DL (<0.4); BILIRUBIN,TOTAL 0.3 MG/DL (0.3-1.2); BLOOD UREA NITROGEN 21 MG/DL (9-23); CALCIUM LEVEL 9.4 MG/DL (8.3-10.6); CARBON DIOXIDE LEVEL 24 MMOL/L (20-31); CHLORIDE LEVEL 107 MMOL/L (98-107); CREATININE FOR GFR 1.07 MG/DL (0.55-1.30); GLOMERULAR FILTRATION RATE 52.3 (>32); GLUCOSE, FASTING 173 MG/DL (74-106); POTASSIUM SERUM 4.3 MMOL/L (3.5-5.1); SODIUM LEVEL 143 MMOL/L (136-145); TOTAL PROTEIN 7.1 G/DL (5.7-8.2)
[2024-06-05 11:07] LABS: FREE T3 2.8 PG/ML (2.3-4.2); THYROID STIMULATING HORMONE 2.999 uIU/ML (0.55-4.78); THYROXINE (T4) 7.3 UG/DL (4.5-10.9)
== END ==
PROVIDERS: ATTEND Physician Assistant
DX: R25.1 Tremor, unspecified (principal)

== ENCOUNTER → 2024-06-14 | Outpatient (REF) ==
[2024-06-14 15:50] LABS: HEMOGLOBIN 12.1 g/dl (12.0-15.5); MEAN CORPUSCULAR HEMOGLOBIN 30.9 pg (27.0-33.0); MEAN CORPUSCULAR VOLUME 99.5 fl (80.0-96.0); PLATELET COUNT, AUTOMATED 340 10^3/uL (150-450); RED BLOOD COUNT 3.92 10^6/uL (4.00-5.40)
[2024-06-14 16:31] LABS: CALCIUM LEVEL 9.5 MG/DL (8.3-10.6); CREATININE FOR GFR 1.05 MG/DL (0.55-1.30); GLOMERULAR FILTRATION RATE 53.4 (>32); POTASSIUM SERUM 4.3 MMOL/L (3.5-5.1)
== END ==
PROVIDERS: ATTEND Internal Medicine
DX: F31.9 Bipolar disorder, unspecified (principal)

== ENCOUNTER 2024-07-14 16:12 | Emergency (ER) | payer MEDICARE, OTHER ==
[~2024-07-14] VITALS: Ht 154.9 cm; Wt 58.6 kg
[2024-07-14] MEDS: BOOSTRIX VACCINE (TETANUS/DIPHTH/ACEL. PERTUSSIS) 0.5ML SYR IM ONE (18:21)
[2024-07-14 19:17] VITALS: BP 148/67; TEMP 97.9; O2SAT 95
== END 2024-07-14 19:20 | disposition home or self-care (01) ==
LOC: M ED 16:12 → EDBD 16:12 → M ED 19:20
DX: S01.01XA Laceration without foreign body of scalp, initial encounter (principal); W01.198A Fall on same level from slipping, tripping and stumbling with subsequent striking against other object, initial encounter; E03.9 Hypothyroidism, unspecified; Y92.128 Other place in nursing home as the place of occurrence of the external cause; Y93.89 Activity, other specified; Y99.9 Unspecified external cause status; Z88.2 Allergy status to sulfonamides; Z91.030 Bee allergy status; Z23 Encounter for immunization; Z79.1 Long term (current) use of non-steroidal anti-inflammatories (NSAID); Z79.899 Other long term (current) drug therapy

== ENCOUNTER → 2024-07-17 | Outpatient (CLI) | payer MEDICARE, OTHER ==
[~2024-07-17] MED LIST changes: +TRAM50TA2 PO
== END ==
LOC: M WHC 07:13
PROVIDERS: ATTEND Physician Assistant
DX: Z85.3 Personal history of malignant neoplasm of breast (principal); Z98.82 Breast implant status; Z12.31 Encounter for screening mammogram for malignant neoplasm of breast

== ENCOUNTER → 2024-07-18 | Outpatient (REF) | payer MEDICARE, OTHER | PROVIDERS: ATTEND Physician Assistant | DX: M25.512 Pain in left shoulder (principal); S42.212D Unspecified displaced fracture of surgical neck of left humerus, subsequent encounter for fracture with routine healing ==

== ENCOUNTER → 2024-07-24 | Outpatient (REF) | payer MEDICARE, OTHER ==
[2024-07-24 11:48] LABS: BASO # 0.1 10^3/uL (0.0-0.2); BASO % 1.1 % (0.0-1.0); EOS # 0.3 10^3/uL (0.0-0.5); EOS % 3.3 % (0.0-3.0); HEMATOCRIT 39.5 % (36.0-47.0); HEMOGLOBIN 11.8 g/dl (12.0-15.5); LYMPH # 2.1 10^3/uL (1.5-5.0); LYMPH % 23.5 % (24.0-44.0); MEAN CORPUSCULAR HEMOGLOBIN 30.3 pg (27.0-33.0); MEAN CORPUSCULAR HGB CONC 29.9 g/dl (32.0-36.5); MEAN CORPUSCULAR VOLUME 101.5 fl (80.0-96.0); MONO # 0.6 10^3/uL (0.0-0.8); MONO % 6.4 % (2.0-8.0); NEUTROPHILS # 5.7 10^3/uL (1.5-8.5); NEUTROPHILS % 65.4 % (36.0-66.0); PLATELET COUNT, AUTOMATED 323 10^3/uL (150-450); RED BLOOD COUNT 3.89 10^6/uL (4.00-5.40); WHITE BLOOD COUNT 8.8 10^3/uL (4.0-10.0)
[2024-07-24 12:18] LABS: ALBUMIN 3.5 G/DL (3.2-5.2); BILIRUBIN,TOTAL 0.4 MG/DL (0.3-1.2); CALCIUM LEVEL 9.2 MG/DL (8.3-10.6); CREATININE FOR GFR 1.12 MG/DL (0.55-1.30); GLOMERULAR FILTRATION RATE 49.6 (>32); POTASSIUM SERUM 4.1 MMOL/L (3.5-5.1); TOTAL PROTEIN 6.8 G/DL (5.7-8.2)
== END ==
PROVIDERS: ATTEND Physician Assistant
DX: R71.8 Other abnormality of red blood cells (principal)

== ENCOUNTER → 2024-07-27 | Outpatient (CLI) | payer MEDICARE, OTHER | LOC: M SOG 08:02 | PROVIDERS: ATTEND Physician Assistant | DX: S42.232S 3-part fracture of surgical neck of left humerus, sequela (principal) ==

== ENCOUNTER → 2024-08-24 | Outpatient (REF) | payer MEDICARE, OTHER ==
[~2024-08-24] MED LIST changes: +DICL20GE TP
== END ==
PROVIDERS: ATTEND Physician Assistant
DX: M79.641 Pain in right hand (principal); M89.8X8 Other specified disorders of bone, other site

== ENCOUNTER → 2024-09-05 | Outpatient (REF) | payer MEDICARE, OTHER | PROVIDERS: ATTEND Physician Assistant | DX: N39.0 Urinary tract infection, site not specified (principal) ==

== ENCOUNTER → 2024-09-08 | Outpatient (REF) | payer MEDICARE, OTHER | LOC: M SFHCDERM 16:36 | PROVIDERS: ATTEND Nurse Practitioner Family | DX: D48.5 Neoplasm of uncertain behavior of skin (principal) ==

== ENCOUNTER → 2024-09-11 | Outpatient (REF) ==
[2024-09-11 11:18] LABS: HEMOGLOBIN 11.4 g/dl (12.0-15.5); MEAN CORPUSCULAR VOLUME 103.3 fl (80.0-96.0); PLATELET COUNT, AUTOMATED 301 10^3/uL (150-450); RED BLOOD COUNT 3.68 10^6/uL (4.00-5.40); WHITE BLOOD COUNT 8.3 10^3/uL (4.0-10.0)
[2024-09-11 11:54] LABS: CALCIUM LEVEL 9.1 MG/DL (8.3-10.6); CREATININE FOR GFR 1.14 MG/DL (0.55-1.30); GLOMERULAR FILTRATION RATE 48.1 (>32); POTASSIUM SERUM 4.2 MMOL/L (3.5-5.1)
== END ==
PROVIDERS: ATTEND Internal Medicine
DX: F31.9 Bipolar disorder, unspecified (principal); Z85.3 Personal history of malignant neoplasm of breast

== ENCOUNTER → 2024-09-13 | Outpatient (REF) | payer MEDICARE, OTHER ==
[2024-09-13 09:04] LABS: CALCIUM LEVEL 9.1 MG/DL (8.3-10.6); CREATININE FOR GFR 1.07 MG/DL (0.55-1.30); GLOMERULAR FILTRATION RATE 51.9 (>32); POTASSIUM SERUM 4.4 MMOL/L (3.5-5.1)
== END ==
PROVIDERS: ATTEND Physician Assistant
DX: E86.0 Dehydration (principal)

== ENCOUNTER → 2024-10-02 | Outpatient (REF) | payer MEDICARE, OTHER ==
[~2024-10-02] MED LIST changes: +AMLO-751 PO; -AMLO10TA PO; -LITH450T11 PO; +LITH450T17 PO
== END ==
PROVIDERS: ATTEND Physician Assistant
DX: F31.9 Bipolar disorder, unspecified (principal)

== ENCOUNTER → 2024-12-11 | Outpatient (REF) | payer MEDICARE, OTHER ==
[~2024-12-11] MED LIST changes: +ACET-683 PO; +APAP325T4 PO; +BISA10SU27 PR; +CHOL25CA2 PO; +MILKSUS3 PO; +MIRA3350 PO; -VITA100054 PO
[2024-12-11 10:12] LABS: PLATELET COUNT, AUTOMATED 163 10^3/uL (150-450)
[2024-12-11 10:49] LABS: CALCIUM LEVEL 9.5 MG/DL (8.3-10.6); CARBON DIOXIDE LEVEL 24.0 MMOL/L (20-31); CHLORIDE LEVEL 108.0 MMOL/L (98-107); CREATININE FOR GFR 1.14 MG/DL (0.55-1.30); GLOMERULAR FILTRATION RATE 47.8 (>32); POTASSIUM SERUM 4.8 MMOL/L (3.5-5.1); SODIUM LEVEL 146.0 MMOL/L (136-145)
== END ==
PROVIDERS: ATTEND Internal Medicine
DX: F31.9 Bipolar disorder, unspecified (principal)

== ENCOUNTER → 2024-12-13 | Outpatient (REF) | payer MEDICARE, OTHER ==
[2024-12-13 09:02] LABS: CALCIUM LEVEL 9.4 MG/DL (8.3-10.6); CARBON DIOXIDE LEVEL 29.0 MMOL/L (20-31); CHLORIDE LEVEL 108.0 MMOL/L (98-107); CREATININE FOR GFR 1.24 MG/DL (0.55-1.30); GLOMERULAR FILTRATION RATE 43.2 (>32); POTASSIUM SERUM 4.8 MMOL/L (3.5-5.1); SODIUM LEVEL 145.0 MMOL/L (136-145)
== END ==
PROVIDERS: ATTEND Physician Assistant
DX: E86.0 Dehydration (principal)

== ENCOUNTER → 2025-01-15 | Outpatient (REF) | payer MEDICARE, OTHER | PROVIDERS: ATTEND Internal Medicine | DX: F32.A Depression, unspecified (principal); Z79.899 Other long term (current) drug therapy ==

== ENCOUNTER → 2025-01-19 | Outpatient (REF) | payer MEDICARE, OTHER | PROVIDERS: ATTEND Physician Assistant | DX: N39.0 Urinary tract infection, site not specified (principal) ==

== ENCOUNTER → 2025-03-08 | Outpatient (REF) | payer MEDICARE, OTHER | PROVIDERS: ATTEND Physician Assistant | DX: M79.641 Pain in right hand (principal); M19.041 Primary osteoarthritis, right hand ==

== ENCOUNTER → 2025-03-12 | Outpatient (REF) | payer MEDICARE, OTHER ==
[2025-03-12 14:07] LABS: PLATELET COUNT, AUTOMATED 329 10^3/uL (150-450)
[2025-03-12 14:26] LABS: CALCIUM LEVEL 9.5 MG/DL (8.3-10.6); CARBON DIOXIDE LEVEL 23.0 MMOL/L (20-31); CHLORIDE LEVEL 107.0 MMOL/L (98-107); CREATININE FOR GFR 1.11 MG/DL (0.55-1.30); GLOMERULAR FILTRATION RATE 49.3 (>32); POTASSIUM SERUM 4.8 MMOL/L (3.5-5.1); SODIUM LEVEL 142.0 MMOL/L (136-145)
== END ==
PROVIDERS: ATTEND Internal Medicine
DX: F31.9 Bipolar disorder, unspecified (principal)

== ENCOUNTER → 2025-03-19 | Outpatient (REF) | payer MEDICARE, OTHER ==
[2025-03-19 18:16] LABS: ALT/SGPT < 9 U/L (7.0-40); AST/SGOT 18 U/L (<34)
[2025-03-19 18:19] LABS: LITHIUM LEVEL 0.49 MMOL/L (1.0-1.20)
[2025-03-19 18:20] LABS: FREE T4 0.89 NG/DL (0.89-1.76); VITAMIN B12 LEVEL 416 PG/ML (211-911)
[2025-03-19 18:24] LABS: ESTIMATED AVERAGE GLUCOSE 100.0 MG/DL (60-110)
== END ==
PROVIDERS: ATTEND Physician Assistant
DX: R44.3 Hallucinations, unspecified (principal); Z79.899 Other long term (current) drug therapy

== ENCOUNTER → 2025-03-22 | Outpatient (CLI) | payer MEDICARE, OTHER | LOC: M RAD 07:03 | PROVIDERS: ATTEND Physician Assistant | DX: R44.1 Visual hallucinations (principal); G31.9 Degenerative disease of nervous system, unspecified; R90.82 White matter disease, unspecified ==